=== PATIENT | male | born 1985 | race Caucasian/White ===

== ENCOUNTER 2024-09-04 16:51 | Inpatient (IN) | payer SELFPAY ==
[2024-09-04 16:53] VITALS: BP 140/91; PULSE 89; RESP 16; TEMP 36.8; O2SAT 98; BMI 29.7
[2024-09-04 18:36] LABS: Absolute Lymphocyte Count 1.03 X10^3/uL (0.83-4.51); Absolute Neutrophil Count 3.5 X10^3/uL (2.0-7.7); Basophil# 0.06 X10^3/uL; Basophil% 1.1 % (0-1); Eosinophil# 0.16 X10^3/uL; Eosinophils% 2.9 % (0-5); Hematocrit 43.1 % (40-54); Hemoglobin 14.3 g/dL (13.0-16.5); Lymphocyte # 1.03 X10^3/ul (0.83-4.51); Lymphocyte % 18.8 % (19-41); Mean Corp Hgb Conc 33.2 g/dL (32-36); Mean Corpuscular Volume 90.4 fL (80-94); Mean Platelet Vol. 9.5 fl (6.2-12.0); Monocyte# 0.68 X10^3/uL; Monocyte% 12.4 % (0-10); NRBC Flagged by Analyzer 0 % (0-5); Neutrophil # 3.46 X10^3/uL (2.7-7.7); Neutrophil % 63.2 % (47-70); Platelet Count 325 K/mm3 (150-450); RBC Distribution Width CV 16.2 % (11.6-14.6); RBC Distribution Width SD 54.2 fl (35.1-43.9); Red Blood Count 4.77 M/mm3 (4.6-6.2); White Blood Count 5.5 K/mm3 (4.4-11.0)
[2024-09-04 19:06] LABS: ALB/GLOB Ratio 0.9 RATIO (0.9-2.4); AST(SGOT) 68 U/L (15-37); Alanine Aminotransfer ALT/SGPT 78 U/L (16-61); Albumin, Serum 3.7 g/dL (3.2-5.0); Alkaline Phosphatase 199 U/L (45-117); Anion Gap 8 (5-15); BUN 13 mg/dL (7-18); BUN/Creat Ratio 11.5 RATIO (10-20); Calcium,Total 9.8 mg/dL (8.5-10.1); Chloride 102 mmol/L (98-107); Creatinine, Serum 1.13 mg/dL (0.70-1.30); EST Glomerular Filtration Rate 76 mL/min (>60); Est Glom Filt Rate - Afr Amer 92 mL/min (>60); Estimated Creatinine Clearance 99.11 ml/min; Globulin 3.9 g/dL (2.2-4.2); Glucose 105 mg/dL (74-106); Potassium 3.9 mmol/L (3.5-5.1); Protein, Total 7.6 g/dL (6.4-8.2); Sodium Level 138 mmol/L (136-145)
[2024-09-04 19:13] LABS: Mucous, Urine 0 SEEN /hpf (<or=2+); Red Blood Cells-Urine 0 SEEN /hpf (0-5); Squamous Epithelial Cells - UA 0 SEEN /hpf (0-5); White Blood Cells 0 SEEN /hpf (0-5)
[2024-09-04 19:14] LABS: Color, Urine Yellow (Yellow); Glucose, Dipstick Normal (Normal); Ketone-Dipstick Negative (Negative); Leukocyte Esterase-Dipstick Negative /ul (Negative); Nitrite-Dipstick Negative (Negative); Occult Blood-Urine Negative /ul (Negative); Protein-Dipstick Negative (Negative); Specific Gravity, Urine 1.005 (1.002-1.030); Urine Bilirubin Dipstick Negative (Negative); Urine Clarity Clear (Clear); Urine Urobilinogen Normal (Normal)
[2024-09-04 19:24] VITALS: BP 136/80; PULSE 73; RESP 16; O2SAT 96
[2024-09-04 19:31] LABS: Bacteria 1+ /hpf (None Seen)
--- NOTE | 2024-09-04 19:31 | US_ITS ---
INDICATION: pain, jaundice EXAMINATION: Ultrasound US Gallbladder (abdomen limited) TECHNIQUE: Hector scale and color doppler imaging was performed of the right upper quadrant. COMPARISON: Prior study dated: CT from today FINDINGS: LIVER: The liver is normal in size, shape, and echogenicity. No focal hepatic lesion. Diffuse intrahepatic biliary ductal dilatation. There is no free fluid. GALLBLADDER AND BILIARY TREE: Distended gallbladder. Gallstone at the gallbladder neck measuring up to 1.9 cm. No wall thickening or pericholecystic fluid.. The proximal common bile duct measures 1.3 cm, which is dilated. Songraphic Isidro''s sign: Negative. PANCREAS: No focal abnormality is demonstrated in the pancreas. No pancreatic ductal dilatation. RIGHT KIDNEY: The right kidney measures 11.9 cm. No hydronephrosis or nephrolithiasis. No renal mass. US/Gallbladder IMPRESSION: Diffuse intrahepatic and extrahepatic biliary ductal dilatation noted, as seen on the prior CT. Gallstone at the neck of the gallbladder. No definite ductal filling defects seen, but this can be evaluated further with MRCP or ERCP. Electronically Signed: Major Roberson MD at 21:07 EST ,
--- NOTE | 2024-09-04 19:32 | CT_ITS ---
STUDY: CT ABDOMEN AND PELVIS WITH CONTRAST REASON FOR EXAM: Male, 39 years old. jaundice RADIATION DOSAGE (If Supplied By Facility): CTDIvol = ( 12.62 ) mGy, DLP = ( 1004.16 ) mGycm TECHNIQUE: IV 75mL Isovue-370 was administered. Transaxial images were obtained from the dome of the diaphragm to the symphysis pubis in the portal venous phase. Multiplanar coronal and sagittal images were reformatted. Individualized Dose Optimization Techniques Were Used For This CT. COMPARISON: No relevant prior comparison study available FINDINGS: LOWER CHEST: Lung bases are clear. No cardiomegaly or pericardial effusion. LIVER: The liver is normal in size, shape, and attenuation. No focal mass. GALLBLADDER AND BILIARY TREE: Normal distended gallbladder with stones in the gallbladder lumen. There is diffuse intrahepatic and extrahepatic biliary ductal dilatation. The common bile duct measures 1.2 cm. Questionable filling defect at the lower aspect of the duct. PANCREAS: No focal cystic or solid mass. No pancreatic ductal dilatation. SPLEEN: Normal size without focal cystic or solid mass. ADRENAL GLANDS: No nodules. KIDNEYS AND URETERS: Normal renal size and position. No hydronephrosis or nephrolithiasis. PERITONEUM: No ascites or free air. Small amount of fluid in the right inguinal canal. BOWEL: The stomach is unremarkable. Normal caliber small bowel. There is no obstruction. No colonic wall thickening or inflammation. No evidence of acute appendicitis. LYMPH NODES: No enlarged mesenteric or retroperitoneal lymph nodes. VESSELS: Aorta is non-dilated. URINARY BLADDER: Unremarkable. REPRODUCTIVE ORGANS: No pelvic masses. ABDOMINAL WALL: Small right inguinal hernia containing fluid. BONES: No lytic or blastic abnormality. Disc space narrowing at L5-S1. CT/Abdomen/Pelvis W IV Cont ONLY IMPRESSION: Diffuse intrahepatic and extrahepatic biliary ductal dilatation. A gallstone is noted. Suspected filling defect in the common bile duct. This can be evaluated with ERCP or MRCP. No inflammatory change seen of the gallbladder. Electronically Signed: Major Roberson MD at 20:28 EST ,
--- NOTE | 2024-09-04 19:35 | EX.ED.DYSGE1 ---
HPI <HECTOR Quintana - Last Filed: 09/04/24 21:04> History of Present Illness Chief Complaint: General Illness Narrative Narrative: 39-year-old male has become progressively jaundiced over the last 3 weeks. He had a few episodes of epigastric pain where he felt like his food was stuck in that area. No RUQ pain. He has had 3 blood draws and his bilirubin has been rising each time. He states on August 31 it was 20.5. He had an ultrasound showing gallstones and a dilated common bile duct concerning for choledocholithiasis but he states his abdominal pain had resolved so he did not follow-up for the advised MRCP. He states he really feels well other than the jaundice and has had a normal appetite and p.o. intake. No vomiting. No recent abdominal pain, normal bowel movements. Dark urine. He does not take any prescription medications. He denies alcohol use. PFS <HECTOR Quintana - Last Filed: 09/04/24 21:04> [facility] Medical History No pertinent past medical history Home Medications ?Medication ?Instructions ?Recorded ?Last Taken ?Type NK 09/04/24 Unknown History Allergy/AdvReac Type Severity Reaction Status Date / Time No Known Allergies Allergy Verified 09/04/24 16:55 Social History Smoking Status: Never smoker ROS <HECTOR Quintana - Last Filed: 09/04/24 21:04> ROS ED ROS Narrative Constitutional: Negative for fever, chills, malaise. CVS: Negative for chest pain. Respiratory: Negative for shortness of breath. GI: Negative for abdominal pain, nausea, vomiting, diarrhea. EXAM <HECTOR Quintana - Last Filed: 09/04/24 21:04> Physical Exam Narrative Exam Narrative: CONST: Patient sitting in no acute distress. EYES: Scleral icterus. NECK: Normal inspection. RESP: No respiratory distress, CTAB. CVS: Regular rate and rhythm, no murmur, no gallop. ABD: Soft and nontender, no guarding or rebound, nondistended, no hepatosplenomegaly. SKIN: Jaundiced. EXTREMITIES: Normal appearance, no pedal edema. NEURO: Alert and answering questions appropriately. PSYCH: Normal affect. Const Vital Signs: 09/04/24 16:53 09/04/24 19:24 09/04/24 19:24 Temperature 98.2 F Temperature Source Oral Pulse Rate 89 73 Respiratory Rate 16 16 Respiratory Effort Normal Respiratory Pattern Normal Blood Pressure 140/91 H 136/80 H Blood Pressure Mean 107 98 Pulse Ox 98 96 Oxygen Delivery Method Room Air Room Air 09/04/24 21:00 09/04/24 21:02 Temperature 98.7 F Temperature Source Pulse Rate 76 78 Respiratory Rate 16 18 Respiratory Effort Respiratory Pattern Blood Pressure 124/71 H 124/71 H Blood Pressure Mean 88 88 Pulse Ox 98 98 Oxygen Delivery Method Room Air <Dr. Rod Ross DO - Last Filed: 09/05/24 00:19> Physical Exam Const Vital Signs: 09/04/24 16:53 09/04/24 19:24 09/04/24 19:24 Temperature 98.2 F Temperature Source Oral Pulse Rate 89 73 Respiratory Rate 16 16 Respiratory Effort Normal Respiratory Pattern Normal Blood Pressure 140/91 H 136/80 H Blood Pressure Mean 107 98 Pulse Ox 98 96 Oxygen Delivery Method Room Air Room Air 09/04/24 21:00 09/04/24 21:02 Temperature 98.7 F Temperature Source Pulse Rate 76 78 Respiratory Rate 16 18 Respiratory Effort Respiratory Pattern Blood Pressure 124/71 H 124/71 H Blood Pressure Mean 88 88 Pulse Ox 98 98 Oxygen Delivery Method Room Air [facility] <HECTOR Quintana - Last Filed: 09/04/24 21:04> [facility] Narrative Medical decision making narrative: History gathered from: Patient and spouse Differential: Cholecystitis, choledocholithiasis, neoplasm Consults: GI Patient has had 3 weeks of jaundice. He had an ultrasound at an outside facility showing gallstones and a dilated common bile duct concerning for choledocholithiasis. States he briefly had epigastric pain but has not had it for a while and other than the jaundice he feels normal. He appears well and nontoxic. Vital signs are stable. He does have scleral icterus and jesika jaundice. His abdomen is soft and nontender. Workup remarkable for total bilirubin of 23.9, direct bilirubin 20.1, AST 68, ALT 78, alk phos 199, normal lipase of 43. CT scan shows diffuse intra and extrahepatic biliary duct dilation and a gallstone again concerning for choledocholithiasis. I discussed the case with Dr. Babin who states he will do ERCP tomorrow. Case was discussed with the hospitalist for admission. Lab Data Attestation: I reviewed the patient's lab results. Labs: Laboratory Results - last 24 hr 09/04/24 09/04/24 18:20 19:02 WBC 5.5 RBC 4.77 Hgb 14.3 Hct 43.1 MCV 90.4 MCH 30.0 MCHC 33.2 RDW Std Deviation 54.2 H RDW Coeff of Joanne 16.2 H Plt Count 325 MPV 9.5 Immature Gran % (Auto) 1.600 H Neut % (Auto) 63.2 Lymph % (Auto) 18.8 L [place] % (Auto) 12.4 H Eos % (Auto) 2.9 Baso % (Auto) 1.1 H Absolute Neuts (auto) 3.5 Absolute Lymphs (auto) 1.03 Nucleated RBC % 0 PT 11.9 INR 0.9 Sodium 138 Potassium 3.9 Chloride 102 Carbon Dioxide 28.0 Anion Gap 8 BUN 13 Creatinine 1.13 Estim Creat Clear Calc 99.11 Est GFR (MDRD) Af Amer 92 Est GFR (MDRD) Non-Af 76 BUN/Creatinine Ratio 11.5 Glucose 105 Hemoglobin A1c 4.8 Calcium 9.8 Total Bilirubin 23.90 H* Direct Bilirubin 20.11 H AST 68 H ALT 78 H Alkaline Phosphatase 199 H Total Protein 7.6 Albumin 3.7 Globulin 3.9 Albumin/Globulin Ratio 0.9 Triglycerides Cancelled Cholesterol Cancelled LDL Cholesterol Cancelled VLDL Cholesterol Cancelled HDL Cholesterol Cancelled Lipase 43 TSH 0.545 Urine Color Yellow Urine Clarity Clear Urine pH 6.0 Ur Specific [place] 1.005 Urine Protein Negative Urine Glucose (UA) Normal Urine Ketones Negative Urine Occult Blood Negative Urine Nitrite Negative Urine Bilirubin Negative Urine Urobilinogen Normal Ur Leukocyte Esterase Negative Urine RBC 0 SEEN Urine WBC 0 SEEN Ur Squamous Epith Cells 0 SEEN Urine Bacteria 1+ Urine Mucus 0 SEEN Radiography Diagnostic Testing: Clinical Impression(s) from Imaging Studies Gallbladder Ultrasound 09/04/24 19:31 IMPRESSION: Diffuse intrahepatic and extrahepatic biliary ductal dilatation noted, as seen on the prior CT. Gallstone at the neck of the gallbladder. No definite ductal filling defects seen, but this can be evaluated further with MRCP or ERCP. Electronically Signed: Major Roberson MD at 21:07 EST , Abdomen/Pelvis CT 09/04/24 19:32 IMPRESSION: Diffuse intrahepatic and extrahepatic biliary ductal dilatation. A gallstone is noted. Suspected filling defect in the common bile duct. This can be evaluated with ERCP or MRCP. No inflammatory change seen of the gallbladder. Electronically Signed: Major Roberson MD at 20:28 EST , <Dr. Rod Ross, DO - Last Filed: 09/05/24 00:19> [facility] Narrative Medical decision making narrative: History gathered from: Patient and spouse Differential: Cholecystitis, choledocholithiasis, neoplasm Consults: GI Patient has had 3 weeks of jaundice. He had an ultrasound at an outside facility showing gallstones and a dilated common bile duct concerning for choledocholithiasis. States he briefly had epigastric pain but has not had it for a while and other than the jaundice he feels normal. He appears well and nontoxic. Vital signs are stable. He does have scleral icterus and jesika jaundice. His abdomen is soft and nontender. Workup remarkable for total bilirubin of 23.9, direct bilirubin 20.1, AST 68, ALT 78, alk phos 199, normal lipase of 43. CT scan shows diffuse intra and extrahepatic biliary duct dilation and a gallstone again concerning for choledocholithiasis. I discussed the case with Dr. Babin who states he will do ERCP tomorrow. Case was discussed with the hospitalist for admission. Attending note: I have personally performed a face to face assessment of the patient and have reviewed the AMINTA note. I personally made/approved the management plan and take responsibility for the patient management. I performed a substantive portion of the visit including all aspects of the following. My [place]ckee findings include: Outpatient gallbladder ultrasound 3 weeks ago after a bout of pain. Symptom resolved he had cholelithiasis and common bile duct of 9.2 mm. Her symptoms resolved did not follow-up. Progressive jaundice over 2 weeks. Occasional itching. Urine dark. Stool still light brown color. No current abdominal pain. No fevers. No abdominal surgeries in the past. Exam diffuse jaundice including scleral icterus. Abdomen nontender. Nontoxic. Laboratories rechecked concerning for obstructive jaundice and direct bili of 20.11 white count normal at 5. Lipase normal. Slight transaminitis. CT scan abdomen no pancreatic mass there is gallstones with common bile duct of 12 mm. Ultrasound with cholelithiasis at the gallbladder neck. Discussed with GI DrAlverto Babin who will plan on doing an ERCP tomorrow. N.p.o. at midnight. Discussed with hospitalist for admission. Lab Data Labs: Laboratory Results - last 24 hr 09/04/24 09/04/24 18:20 19:02 WBC 5.5 RBC 4.77 Hgb 14.3 Hct 43.1 MCV 90.4 MCH 30.0 MCHC 33.2 RDW Std Deviation 54.2 H RDW Coeff of Joanne 16.2 H Plt Count 325 MPV 9.5 Immature Gran % (Auto) 1.600 H Neut % (Auto) 63.2 Lymph % (Auto) 18.8 L [place] % (Auto) 12.4 H Eos % (Auto) 2.9 Baso % (Auto) 1.1 H Absolute Neuts (auto) 3.5 Absolute Lymphs (auto) 1.03 Nucleated RBC % 0 PT 11.9 INR 0.9 Sodium 138 Potassium 3.9 Chloride 102 Carbon Dioxide 28.0 Anion Gap 8 BUN 13 Creatinine 1.13 Estim Creat Clear Calc 99.11 Est GFR (MDRD) Af Amer 92 Est GFR (MDRD) Non-Af 76 BUN/Creatinine Ratio 11.5 Glucose 105 Hemoglobin A1c 4.8 Calcium 9.8 Total Bilirubin 23.90 H* Direct Bilirubin 20.11 H AST 68 H ALT 78 H Alkaline Phosphatase 199 H Total Protein 7.6 Albumin 3.7 Globulin 3.9 Albumin/Globulin Ratio 0.9 Triglycerides Cancelled Cholesterol Cancelled LDL Cholesterol Cancelled VLDL Cholesterol Cancelled HDL Cholesterol Cancelled Lipase 43 TSH 0.545 Urine Color Yellow Urine Clarity Clear Urine pH 6.0 Ur Specific [place] 1.005 Urine Protein Negative Urine Glucose (UA) Normal Urine Ketones Negative Urine Occult Blood Negative Urine Nitrite Negative Urine Bilirubin Negative Urine Urobilinogen Normal Ur Leukocyte Esterase Negative Urine RBC 0 SEEN Urine WBC 0 SEEN Ur Squamous Epith Cells 0 SEEN Urine Bacteria 1+ Urine Mucus 0 SEEN Radiography Diagnostic Testing: Clinical Impression(s) from Imaging Studies Gallbladder Ultrasound 09/04/24 19:31 IMPRESSION: Diffuse intrahepatic and extrahepatic biliary ductal dilatation noted, as seen on the prior CT. Gallstone at the neck of the gallbladder. No definite ductal filling defects seen, but this can be evaluated further with MRCP or ERCP. Electronically Signed: Major Roberson MD at 21:07 EST , Abdomen/Pelvis CT 09/04/24 19:32 IMPRESSION: Diffuse intrahepatic and extrahepatic biliary ductal dilatation. A gallstone is noted. Suspected filling defect in the common bile duct. This can be evaluated with ERCP or MRCP. No inflammatory change seen of the gallbladder. Electronically Signed: Major Roberson MD at 20:28 EST , Discharge Plan Dx/Rx/DC Orders Clinical Impression: Choledocholithiasis, Jaundice, Cholelithiases Disposition Disposition: Acute Care [facility] Discharge Date/Time: 09/04/24 21:41
[2024-09-04 19:49] LABS: International Normalized Ratio 0.9; Prothrombin Time (Protime)PT. 11.9 SECONDS (11.7-14.9)
[2024-09-04 20:12] LABS: Bilirubin, Direct 20.11 mg/dL (0.00-0.30); Lipase 43 U/L (13-75)
--- NOTE | 2024-09-04 20:59 | PCM.HP.STD ---
[facility] - General General Date of Admission: 09/04/24 Date of Service: 09/04/24 Chief Complaint: Severe Persistent Jaundice. HPI Narrative DIANE CONNORS, is a 39 M who with a past medical history of being overweight; with a BMI of 29.8 this admission and recently diagnosed jaundice with intermittent epigastric abdominal pain along with a feeling that food was getting stuck in that region; with a gallbladder ultrasound that revealed gallstones and suspected choledocholithiasis with patient then recommended to get MRCP ~3 week ago - but since his abdominal pain resolved he did not proceed with testing who now presents to [facility] ER complaining of severe persistent jaundice. Mr. Connors stated he has had 3 blood draws with his bilirubin rising each time but he feels well other than jaundice and has not had a normal appetite with normal oral intake. He denies recent fever, chills, nausea, vomiting, diarrhea, chest pain, shortness of breath, headache or paresthesias. He denies being on any prescription medications and he does not use alcohol or illicit drugs. In the ER he was noted to have a CT scan of the abdomen and pelvis with IV contrast that revealed diffuse intrahepatic and extrahepatic biliary ductal dilatation with a gallstone noted and suspected filling defect in the common bile duct with radiologist recommending ERCP or MRCP. He then underwent gallbladder ultrasound which revealed diffuse intrahepatic and extrahepatic biliary ductal dilatation as seen on CT. Gallstone at the neck of the bladder was noted. No definite ductal filling defects were seen and once again MRCP or ERCP was recommended. His laboratory tests were positive for severe hyperbilirubinemia of 23.9 mg/dL with direct bilirubin of 20.11 mg/dL and AST of 68 U/L and ALT of 78 U/L and alkaline phosphatase of 199 U/L present on admission with ER physician then contacting acquisition consultant on-call who recommended ERCP in the a.m. with patient to be admitted to the hospitalist service with formal consultation pending in the a.m. for urgent ERCP which was done and he was then admitted to the general medical floor for ongoing care for stay that is expected to extend beyond 2 midnights. [facility] Medical History No pertinent past medical history Home Medications ?Medication ?Instructions ?Recorded ?Last Taken ?Type NK 09/04/24 Unknown History Allergy/AdvReac Type Severity Reaction Status Date / Time No Known Allergies Allergy Verified 09/04/24 16:55 Social History Smoking Status: Never smoker ROS ROS Narrative Review of Systems: Constitution: Patient denies fever or chills. Eyes: Patient admits to scleral icterus but he denies changes in vision or discharge from eyes. ENT: Patient denies runny nose, sore throat or ear pain. Resp: Patient denies shortness of breath or cough. CV: Patient denies chest pain, palpitations or heart racing. GI: Patient denies recent abdominal pain, nausea, vomiting, diarrhea or decreased appetite with normal bowel movements as per HPI. : Patient denies dysuria or hematuria. MSK: Patient denies arthralgias or myalgias. Skin: Patient admits to severe jaundice but he denies rash or abscess. Psych: Patient denies symptoms of uncontrolled depression or anxiety. Neuro: Patient denies headache, paresthesias or focal neurologic deficits. Allergy: Patient denies lip swelling, tongue swelling or urticaria. Hematology: Patient denies easy bleeding or easy bruisability. Endocrinology: Patient denies polyuria, polydipsia or polyphagia. 14 point review of systems otherwise negative except for positives noted above in HPI. Vital Signs Vital Signs Vital Signs: 09/04/24 16:53 09/04/24 19:24 09/04/24 19:24 Temperature 98.2 F Temperature Source Oral Pulse Rate 89 73 Respiratory Rate 16 16 Respiratory Effort Normal Respiratory Pattern Normal Blood Pressure 140/91 H 136/80 H Blood Pressure Mean 107 98 Pulse Ox 98 96 Oxygen Delivery Method Room Air Room Air Weight Weight: 207 lb 8 oz Body Mass Index (BMI) 29.7 Physical Exam Const alert, oriented x3 and no apparent distress Constitutional Narrative: Overweight with nontoxic appearance. General Appearance: cooperative HEENT normocephalic, head/scalp atraumatic, hearing grossly normal bilaterally and moist oral mucous membranes Eyes PERRL and EOMs intact bilaterally Eyes Narrative: Scleral icterus noted. Neck no lymphadenopathy and supple Resp normal respiratory effort, no retractions, no use of accessory muscles and clear to auscultation bilaterally Cardio regular rate and regular rhythm GI normal to inspection, nondistended, normoactive bowel sounds, soft to palpation, non-tender and non-distended Extremity normal to inspection, full ROM and no clubbing, cyanosis or edema Skin Skin Narrative: Patient has severe jaundice but no evidence of rash or abscess. Neuro oriented x3, CN's II-XII intact bilaterally, moves all extremities and no focal motor deficits Sensorium / Orientation: awake, alert, oriented to person, oriented to place and oriented to time Speech: speech normal Psych affect normal Results Medical Records Data Attestation: I reviewed the patient's medical records Lab / Micro Data Attestation: I reviewed the patient's lab results. 09/04/24 18:20 09/04/24 18:20 Labs: Laboratory Results - last 24 hr 09/04/24 18:20: WBC 5.5, RBC 4.77, Hgb 14.3, Hct 43.1, MCV 90.4, MCH 30.0, MCHC 33.2, RDW Std Deviation 54.2 H, RDW Coeff of Joanne 16.2 H, Plt Count 325, MPV 9.5, Immature Gran % (Auto) 1.600 H, Neut % (Auto) 63.2, Lymph % (Auto) 18.8 L, [place] % (Auto) 12.4 H, Eos % (Auto) 2.9, Baso % (Auto) 1.1 H, Absolute Neuts (auto) 3.5, Absolute Lymphs (auto) 1.03, Nucleated RBC % 0, PT 11.9, INR 0.9, Sodium 138, Potassium 3.9, Chloride 102, Carbon Dioxide 28.0, Anion Gap 8, BUN 13, Creatinine 1.13, Estim Creat Clear Calc 99.11, Est GFR (MDRD) Af Amer 92, Est GFR (MDRD) Non-Af 76, BUN/Creatinine Ratio 11.5, Glucose 105, Calcium 9.8, Total Bilirubin 23.90 H*, Direct Bilirubin 20.11 H, AST 68 H, ALT 78 H, Alkaline Phosphatase 199 H, Total Protein 7.6, Albumin 3.7, Globulin 3.9, Albumin/Globulin Ratio 0.9, Lipase 43 09/04/24 19:02: Urine Color Yellow, Urine Clarity Clear, Urine pH 6.0, Ur Specific [place] 1.005, Urine Protein Negative, Urine Glucose (UA) Normal, Urine Ketones Negative, Urine Occult Blood Negative, Urine Nitrite Negative, Urine Bilirubin Negative, Urine Urobilinogen Normal, Ur Leukocyte Esterase Negative, Urine RBC 0 SEEN, Urine WBC 0 SEEN, Ur Squamous Epith Cells 0 SEEN, Urine Bacteria 1+, Urine Mucus 0 SEEN Imaging Radiology Impression Abdomen/Pelvis CT 09/04/24 19:32 IMPRESSION: Diffuse intrahepatic and extrahepatic biliary ductal dilatation. A gallstone is noted. Suspected filling defect in the common bile duct. This can be evaluated with ERCP or MRCP. No inflammatory change seen of the gallbladder. Electronically Signed: Major Roberson MD at 20:28 EST , [facility] Imaging Services [address] [place] [id number] Gallbladder MR#: [id number] Acct: [id number] Name: DIANE CONNORS Rep #: [id number] : 1985 M 39 From: Major Roberson MD PCP: AGUILAR Giles Status: [facility] ER Study: Gallbladder Date of Exam: 09/04/24 Exam# [id number] Ordering Dr: Ita Cueto INDICATION: pain, jaundice EXAMINATION: Ultrasound US Gallbladder (abdomen limited) TECHNIQUE: Hector scale and color doppler imaging was performed of the right upper quadrant. COMPARISON: Prior study dated: CT from today FINDINGS: LIVER: The liver is normal in size, shape, and echogenicity. No focal hepatic lesion. Diffuse intrahepatic biliary ductal dilatation. There is no free fluid. GALLBLADDER AND BILIARY TREE: Distended gallbladder. Gallstone at the gallbladder neck measuring up to 1.9 cm. No wall thickening or pericholecystic fluid.. The proximal common bile duct measures 1.3 cm, which is dilated. Songraphic Isidro''s sign: Negative. PANCREAS: No focal abnormality is demonstrated in the pancreas. No pancreatic ductal dilatation. RIGHT KIDNEY: The right kidney measures 11.9 cm. No hydronephrosis or nephrolithiasis. No renal mass. US/Gallbladder IMPRESSION: Diffuse intrahepatic and extrahepatic biliary ductal dilatation noted, as seen on the prior CT. Gallstone at the neck of the gallbladder. No definite ductal filling defects seen, but this can be evaluated further with MRCP or ERCP. Electronically Signed: Major Roberson MD at 21:07 EST Reading Location ID and State: [address] [place] [address] Tel , Service support , CC: AGUILAR Arias; HECTOR Quintana ~ Shower Attendant: Signed Assessment & Plan Assessment/Plan (1) Jaundice: (2) Choledocholithiasis: (3) Overweight (BMI 25.0-29.9): PLAN: Plan 1. Severe Jaundice with Hyperbilirubinemia of 23.9 mg/dL with direct bilirubin of 20.11 mg/dL and AST of 68 U/L and ALT of 78 U/L and alkaline phosphatase of 199 U/L present on admission with CT scan of the abdomen and pelvis with IV contrast that revealed diffuse intrahepatic and extrahepatic biliary ductal dilatation with a gallstone noted and suspected filling defect in the common bile duct with radiologist recommending ERCP or MRCP. He then underwent gallbladder ultrasound which revealed diffuse intrahepatic and extrahepatic biliary ductal dilatation as seen on CT. Gallstone at the neck of the bladder was noted. No definite ductal filling defects were seen and once again MRCP or ERCP was recommended - Admit to general medical floor. Keep strict n.p.o. and start empiric IV Zosyn to prevent potential evolving infection. Give Protonix 40 mg IV daily plus Zofran 4 mg IV as needed nausea and vomiting. Give Toradol IV as needed [id number] (level 1-5/10) pain or fever. Give morphine IV as needed for severe (level 6-10/10) pain. Finally, we will consult acquisition consultant on-call to see this patient on rounds in the a.m. for urgent ERCP with help appreciated in advance. 2. Recently diagnosed jaundice with intermittent epigastric abdominal pain along with a feeling that food was getting stuck in that region; with a gallbladder ultrasound that revealed gallstones and suspected choledocholithiasis with patient then recommended to get MRCP ~3 week ago - but since his abdominal pain resolved he did not proceed with testing with progressively escalating bilirubin levels and severe jaundice since that time complicating #1 - Noted with patient encouraged to get follow-up testing as recommended in the future. 3. Overweight; with a BMI of 29.8 this admission - Weight loss will be recommended. Check TSH. This complicates his case and may hamper recovery. 4. DVT prophylaxis - SCD's only with impending ERCP. Total time: Approximately (but not less than) 55 minutes. Charges/Coding Visit Charges Inpatient E&M: 89832 Init Hosp L2
[2024-09-04 21:00] VITALS: BP 124/71; PULSE 76; RESP 16; O2SAT 98
[2024-09-04 21:02] VITALS: BP 124/71; PULSE 78; RESP 18; TEMP 37.1; O2SAT 98
[2024-09-04 21:48] VITALS: BP 117/81; PULSE 64; RESP 13; TEMP 36.5; O2SAT 99; BMI 29.5
[2024-09-04 21:48] LABS: Hemoglobin A1c 4.8 % (3.8-5.6)
[2024-09-04 21:54] LABS: Thyroid Stim Hormone (TSH) 0.545 uIU/mL (0.358-3.740)
--- NOTE | 2024-09-04 22:03 | EX.PCM.CON.G ---
HPI Consult Data Date of Consult: 09/04/24 HPI Narrative Reason for Consultation: Biliary obstruction HPI Narrative: DIANE BELTRAN, is a 39 M who presented to the ED with progressive jaundice. He was recently diagnosed jaundice with intermittent epigastric abdominal pain along with a feeling that food was getting stuck in that region; with a gallbladder ultrasound that revealed gallstones and suspected choledocholithiasis with patient then recommended to get MRCP ~3 week ago - but since his abdominal pain resolved he did not proceed with testing. He now presents to [facility] ER complaining of severe persistent jaundice. Mr. Beltran stated he has had 3 blood draws with his bilirubin rising each time but he feels well other than jaundice and has not had a normal appetite with normal oral intake. He denies recent fever, chills, nausea, vomiting, diarrhea, chest pain, shortness of breath, headache or paresthesias. He denies being on any prescription medications and he does not use alcohol or illicit drugs. In the ER he was noted to have a CT scan of the abdomen and pelvis with IV contrast that revealed diffuse intrahepatic and extrahepatic biliary ductal dilatation with a gallstone noted and suspected filling defect in the common bile duct with radiologist recommending ERCP or MRCP. He then underwent gallbladder ultrasound which revealed diffuse intrahepatic and extrahepatic biliary ductal dilatation as seen on CT. Gallstone at the neck of the bladder was noted. No definite ductal filling defects were seen and once again MRCP or ERCP was recommended. His laboratory tests were positive for severe hyperbilirubinemia of 23.9 mg/dL with direct bilirubin of 20.11 mg/dL and AST of 68 U/L and ALT of 78 U/L and alkaline phosphatase of 199 U/L present on admission I was consulted for management of obstructive jaundice. [facility] Medical History No pertinent past medical history Home Medications ?Medication ?Instructions ?Recorded ?Last Taken ?Type NK 09/04/24 Unknown History Allergy/AdvReac Type Severity Reaction Status Date / Time No Known Allergies Allergy Verified 09/04/24 16:55 Social History Smoking Status: Never smoker ROS ROS Narrative Review of Systems: Constitution: Patient denies fever or chills. Eyes: Patient admits to scleral icterus but he denies changes in vision or discharge from eyes. ENT: Patient denies runny nose, sore throat or ear pain. Resp: Patient denies shortness of breath or cough. CV: Patient denies chest pain, palpitations or heart racing. GI: Patient denies recent abdominal pain, nausea, vomiting, diarrhea or decreased appetite with normal bowel movements as per HPI. : Patient denies dysuria or hematuria. MSK: Patient denies arthralgias or myalgias. Skin: Patient admits to severe jaundice but he denies rash or abscess. Psych: Patient denies symptoms of uncontrolled depression or anxiety. Neuro: Patient denies headache, paresthesias or focal neurologic deficits. Allergy: Patient denies lip swelling, tongue swelling or urticaria. Hematology: Patient denies easy bleeding or easy bruisability. Endocrinology: Patient denies polyuria, polydipsia or polyphagia. 14 point review of systems otherwise negative except for positives noted above in HPI. Physical Exam Const alert, oriented x3 and no apparent distress General Appearance: cooperative HEENT normocephalic, head/scalp atraumatic, hearing grossly normal bilaterally and moist oral mucous membranes Eyes PERRL and EOMs intact bilaterally Eyes Narrative: Scleral icterus noted. Neck no lymphadenopathy and supple Resp normal respiratory effort, no retractions, no use of accessory muscles and clear to auscultation bilaterally Cardio regular rate and regular rhythm GI normal to inspection, nondistended, normoactive bowel sounds, soft to palpation, non-tender and non-distended Extremity normal to inspection, full ROM and no clubbing, cyanosis or edema Skin Skin Narrative: Patient has severe jaundice but no evidence of rash or abscess. Neuro oriented x3, CN's II-XII intact bilaterally, moves all extremities and no focal motor deficits Sensorium / Orientation: awake, alert, oriented to person, oriented to place and oriented to time Speech: speech normal Psych affect normal Lab / Micro Data 09/05/24 05:10 09/05/24 05:10 Labs: Laboratory Results - last 24 hr 09/04/24 18:20: WBC 5.5, RBC 4.77, Hgb 14.3, Hct 43.1, MCV 90.4, MCH 30.0, MCHC 33.2, RDW Std Deviation 54.2 H, RDW Coeff of Joanne 16.2 H, Plt Count 325, MPV 9.5, Immature Gran % (Auto) 1.600 H, Neut % (Auto) 63.2, Lymph % (Auto) 18.8 L, Door % (Auto) 12.4 H, Eos % (Auto) 2.9, Baso % (Auto) 1.1 H, Absolute Neuts (auto) 3.5, Absolute Lymphs (auto) 1.03, Nucleated RBC % 0, PT 11.9, INR 0.9, Sodium 138, Potassium 3.9, Chloride 102, Carbon Dioxide 28.0, Anion Gap 8, BUN 13, Creatinine 1.13, Estim Creat Clear Calc 99.11, Est GFR (MDRD) Af Amer 92, Est GFR (MDRD) Non-Af 76, BUN/Creatinine Ratio 11.5, Glucose 105, Hemoglobin A1c 4.8, Calcium 9.8, Total Bilirubin 23.90 H*, Direct Bilirubin 20.11 H, AST 68 H, ALT 78 H, Alkaline Phosphatase 199 H, Total Protein 7.6, Albumin 3.7, Globulin 3.9, Albumin/Globulin Ratio 0.9, Triglycerides Cancelled, Cholesterol Cancelled, LDL Cholesterol Cancelled, VLDL Cholesterol Cancelled, HDL Cholesterol Cancelled, Lipase 43, TSH 0.545 09/04/24 19:02: Urine Color Yellow, Urine Clarity Clear, Urine pH 6.0, Ur Specific [place] 1.005, Urine Protein Negative, Urine Glucose (UA) Normal, Urine Ketones Negative, Urine Occult Blood Negative, Urine Nitrite Negative, Urine Bilirubin Negative, Urine Urobilinogen Normal, Ur Leukocyte Esterase Negative, Urine RBC 0 SEEN, Urine WBC 0 SEEN, Ur Squamous Epith Cells 0 SEEN, Urine Bacteria 1+, Urine Mucus 0 SEEN 09/05/24 05:10: WBC 3.7 L, RBC 4.18 L, Hgb 12.3 L, Hct 37.2 L, MCV 89.0, MCH 29.4, MCHC 33.1, RDW Std Deviation 54.4 H, RDW Coeff of Joanne 16.7 H, Plt Count 269, MPV 9.8, Immature Gran % (Auto) 1.400 H, Neut % (Auto) 55.5, Lymph % (Auto) 25.8, Door % (Auto) 12.6 H, Eos % (Auto) 3.3, Baso % (Auto) 1.4 H, Absolute Neuts (auto) 2.0, Absolute Lymphs (auto) 0.94, Nucleated RBC % 0, Sodium 138, Potassium 3.7, Chloride 107, Carbon Dioxide 25.0, Anion Gap 6, BUN 10, Creatinine 1.02, Estim Creat Clear Calc 109.35, Est GFR (MDRD) Af Amer 104, Est GFR (MDRD) Non-Af 86, BUN/Creatinine Ratio 9.8 L, Glucose 93, Calcium 9.0, Phosphorus 3.8, Magnesium 2.2, Total Bilirubin 19.20 H*, AST 55 H, ALT 57, Alkaline Phosphatase 153 H, Total Protein 5.8 L, Albumin 2.7 L, Globulin 3.1, Albumin/Globulin Ratio 0.9, Triglycerides 333 H, Cholesterol 156, LDL Cholesterol 83, VLDL Cholesterol 67 H, HDL Cholesterol 6 L Imaging Radiology Impression Gallbladder Ultrasound 09/04/24 19:31 IMPRESSION: Diffuse intrahepatic and extrahepatic biliary ductal dilatation noted, as seen on the prior CT. Gallstone at the neck of the gallbladder. No definite ductal filling defects seen, but this can be evaluated further with MRCP or ERCP. Electronically Signed: Major Roberson MD at 21:07 EST , Abdomen/Pelvis CT 09/04/24 19:32 IMPRESSION: Diffuse intrahepatic and extrahepatic biliary ductal dilatation. A gallstone is noted. Suspected filling defect in the common bile duct. This can be evaluated with ERCP or MRCP. No inflammatory change seen of the gallbladder. Electronically Signed: Major Roberson MD at 20:28 EST , Assessment & Plan Assessment/Plan (1) Jaundice: (2) Choledocholithiasis: (3) Overweight (BMI 25.0-29.9): PLAN: Plan 39-year-old with no significant past medical history presents with severe Jaundice with Hyperbilirubinemia of 23.9 mg/dL with direct bilirubin of 20.11 mg/dL and AST of 68 U/L and ALT of 78 U/L and alkaline phosphatase of 199 U/L present on admission with CT scan of the abdomen and pelvis with IV contrast that revealed diffuse intrahepatic and extrahepatic biliary ductal dilatation with a gallstone noted and suspected filling defect in the common bile duct with radiologist recommending ERCP or MRCP. He then underwent gallbladder ultrasound which revealed diffuse intrahepatic and extrahepatic biliary ductal dilatation as seen on CT. Gallstone at the neck of the bladder was noted. No definite ductal filling defects were seen and once again MRCP or ERCP was recommended. He will undergo ERCP to evaluate his hepatobiliary system. He may need MRCP. He will need a evaluation by general surgeon for cholecystectomy. He was explained alternatives, risk and benefits include not withstanding bleeding, infection, sepsis, perforation, need for return to . He will have an ASA of 3. Charges/Coding Visit Charges Inpatient E&M: 74295 Init Hosp L3
[2024-09-04] MEDS: 0.9% Normal Saline (1000mL) 1,000 ML 125 ML IV (22:20)
[2024-09-04] MEDS: Piperacil/Tazobactam 3.375 GM in 0.9% Normal Saline (50mL MB+) 50 ML IV (22:37)
--- NOTE | 2024-09-04 22:56 | NURSING ---
PT AND WERE BOTH VERY HESITANT TO TAKE THE ZOSYN UNTIL THEY SPEAK WITH THE DR BECAUSE HE DIDNT WANT TO TAKE ANYTHING MORE THAN ABSOLUTELY NECESSARY COMMUNICATION SENT TO DR ESCOTO WHO CALLED BACK AND EXPLAINED MORE TO WHY IT WAS IMPORTANT FOR PT TO RECEIVE ZOSYN BECAUSE HE WAS UNABLE TO COME TO THE UNIT AT THIS TIME. THIS NURSE APPROACHED PT AND AGAIN, LETTING THEM KNOW WHAT DR HAD SAID AND THEY ARE NOW WILLING TO GET THE ZOSYN
[2024-09-05] VITALS (14 sets, daily range): BP systolic 104–147; BP diastolic 68–90; PULSE 58–90; RESP 14–16; TEMP 36.1–37.1; O2SAT 97–100; BMI 29.5
[2024-09-05 05:38] LABS: Absolute Lymphocyte Count 0.94 X10^3/uL (0.83-4.51); Basophil# 0.05 X10^3/uL; Basophil% 1.4 % (0-1); Eosinophil# 0.12 X10^3/uL; Eosinophils% 3.3 % (0-5); Hematocrit 37.2 % (40-54); Hemoglobin 12.3 g/dL (13.0-16.5); Lymphocyte # 0.94 X10^3/ul (0.83-4.51); Lymphocyte % 25.8 % (19-41); Mean Corp Hgb Conc 33.1 g/dL (32-36); Mean Corpuscular Hgb 29.4 pg (27.0-32.0); Mean Platelet Vol. 9.8 fl (6.2-12.0); Monocyte# 0.46 X10^3/uL; Monocyte% 12.6 % (0-10); NRBC Flagged by Analyzer 0 % (0-5); Neutrophil # 2.03 X10^3/uL (2.7-7.7); Neutrophil % 55.5 % (47-70); Platelet Count 269 K/mm3 (150-450); RBC Distribution Width CV 16.7 % (11.6-14.6); RBC Distribution Width SD 54.4 fl (35.1-43.9); Red Blood Count 4.18 M/mm3 (4.6-6.2); White Blood Count 3.7 K/mm3 (4.4-11.0)
[2024-09-05 06:09] LABS: ALB/GLOB Ratio 0.9 RATIO (0.9-2.4); AST(SGOT) 55 U/L (15-37); Alanine Aminotransfer ALT/SGPT 57 U/L (16-61); Albumin, Serum 2.7 g/dL (3.2-5.0); Alkaline Phosphatase 153 U/L (45-117); Anion Gap 6 (5-15); BUN 10 mg/dL (7-18); BUN/Creat Ratio 9.8 RATIO (10-20); Chloride 107 mmol/L (98-107); Creatinine, Serum 1.02 mg/dL (0.70-1.30); EST Glomerular Filtration Rate 86 mL/min (>60); Est Glom Filt Rate - Afr Amer 104 mL/min (>60); Estimated Creatinine Clearance 109.35 ml/min; Globulin 3.1 g/dL (2.2-4.2); Glucose 93 mg/dL (74-106); Magnesium 2.2 mg/dL (1.6-2.6); Phosphorus 3.8 mg/dL (2.5-4.9); Potassium 3.7 mmol/L (3.5-5.1); Protein, Total 5.8 g/dL (6.4-8.2); Sodium Level 138 mmol/L (136-145)
[2024-09-05 06:11] LABS: Cholesterol 156 mg/dL (200); High Density Lipoprotein 6 mg/dL; Triglycerides 333 mg/dL; Very Low Density Lipoprotein 67 mg/dL (5-40)
[2024-09-05] MEDS: Piperacil/Tazobactam 3.375 GM in 0.9% Normal Saline (50mL MB+) 50 ML IV ×3 (06:14→22:26)
[2024-09-05] MEDS: 0.9% Normal Saline (1000mL) 1,000 ML 125 ML IV (06:14)
[2024-09-05] MEDS: Pantoprazole Sodium 40 MG in 0.9% Normal Saline (100mL MB+) 100 ML 330 MG IV (10:43)
--- NOTE | 2024-09-05 11:03 | EKG12_ITS ---
Test Reason : ERCP PROTOCOL Blood Pressure : */* mmHG Vent. Rate : 64 BPM Atrial Rate : 64 BPM P-R Int : 174 ms QRS Dur : 116 ms QT Int : 438 ms P-R-T Axes : 45 -30 15 degrees QTcB Int : 451 ms Normal sinus rhythm Left axis deviation Incomplete right bundle branch block Abnormal ECG No previous ECGs available Confirmed by KHAI CEVALLOS, LD ([id number]), rewrite editor BROOKLYN LYNNE ([id number]) on 09/08/2024 6:09:53 AM Referred By: Confirmed By: LD RIDLEY MD
--- NOTE | 2024-09-05 11:18 | PCM.PRE.AN2 ---
ASA Classification* ASA Classification ASA Classification: 2 and E Assessment & Plan Anesthesia* Anesthesia Assessment Anesthesia Assessment: Discussed sedation and/or anesthesia options, risks, benefits, and alternatives with patient/parents/legal guardian/POA. Questions invited. The patient/parents/legal guardian/POA seems to understand and agrees to proceed with anesthesia plan. Reviewed the physical assessment, medical history, allergy history and patient home medications list prior to surgery/procedure/anesthetic and documented any changes. Performed airway and anesthesia risk assessments. Anesthesia Type Anesthesia Type: General (see written pre anesthesia record for full assessment) Anesthesia Focused Assessment* Temperature: 97.7 F Pulse Rate: 58 Blood Pressure: 117/68 Respiratory Rate: 16 Pulse Ox: 97 Airway Assessment Mouth opens: >3 cm Mallampati Score: II Focused Labs Anesthesia Preop lab: CBC WBC 3.7 K/mm3 (4.4-11.0) L 09/05/24 05:10 RBC 4.18 M/mm3 (4.6-6.2) L 09/05/24 05:10 Hgb 12.3 g/dL (13.0-16.5) L 09/05/24 05:10 Hct 37.2 % (40-54) L 09/05/24 05:10 Plt Count 269 K/mm3 (150-450) 09/05/24 05:10 CHEMISTRY Potassium 3.7 mmol/L (3.5-5.1) 09/05/24 05:10 Sodium 138 mmol/L (136-145) 09/05/24 05:10 Magnesium 2.2 mg/dL (1.6-2.6) 09/05/24 05:10 Phosphorus 3.8 mg/dL (2.5-4.9) 09/05/24 05:10 BUN 10 mg/dL (7-18) 09/05/24 05:10 Creatinine 1.02 mg/dL (0.70-1.30) 09/05/24 05:10 Glucose 93 mg/dL (74-106) 09/05/24 05:10 TSH 0.545 uIU/mL (0.358-3.740) 09/04/24 18:20 COAG PT 11.9 SECONDS (11.7-14.9) 09/04/24 18:20 Pre-Assessment Diagnosis/Proposed Procedure Planned Operative Procedure(s): ercp 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 When Was Last Pacemaker Check QUESTION #4 FULL TEXT: You/Your Family Experience fever (hyperthermia) with Anesthesia Last Oral Intake Last Oral intake: Last Oral Intake NPO since Meds taken in AM with sips of water? 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 - veterans service representative: PONV - veterans service representative Female HX of Motion Sickness HX of N/V After Surgery Non-Smoker Duration of Surgery greater than 60 minutes Number of Risk Factors PONV Score Height & Weight Height & Weight: Anesthesia: Height & Weight Height 5 ft 10 in 09/04/24 21:48 Weight: 93.3 kg 09/05/24 06:00 Body Mass Index (BMI) 29.5 09/05/24 06:00 Respiratory Assessment Respiratory Assessment - veterans service representative: Respiratory Tract Infection Hx - veterans service representative Hx Respiratory Tract Infection No 09/05/24 08:06 STOP Sleep Apnea STOP Sleep Apnea - veterans service representative: STOP Sleep Apnea - veterans service representative Hx Hypertension No 09/04/24 21:48 Hx Sleep Apnea No 09/04/24 21:48 CPAP BIPAP Do you snore loudly (louder No 09/04/24 21:48 than talking or can be heard Do you often feel tired/ No 09/04/24 21:48 fatigued/ sleepy during daytime? Has anyone observed you stop No 09/04/24 21:48 breathing during sleep? STOP Results Negative 09/04/24 21:48 QUESTION #5 FULL TEXT : Do you snore loudly (louder than talking or can be heard through closed doors)? 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 Specify any problems Hx of Preganancy in last 3 N/A 09/04/24 21:48 Months Nurse Filling Out Transfusion [email or web address] 09/04/24 21:48 & Questions: Date: 09/04/24 09/04/24 21:48 Time: 21:59 09/04/24 21:48 Patient unable to answer at this time (ie. confused, unrespo /Reproduction History /Reproductive History - veterans service representative: /Reproductive Hx- veterans service representative Hx Now No 09/05/24 08:06 Gestational Age (in weeks): EDC: Hx Hx Para Hx Section SAB No 09/05/24 08:06 Active Medications Active Medications: Current Medications Generic Name Dose Route Start Last Admin Trade Name Freq PRN Reason Stop Dose Admin Pantoprazole Sodium 40 mg/ 110 mls @ 330 mls/hr 09/05/24 10:00 09/05/24 10:43 Sodium Chloride IV 330 mls/hr DAILY RICARDO Administration Piperacillin Sod/Tazobactam 50 mls @ 12.5 mls/hr 09/04/24 22:00 09/05/24 10:14 Sod 3.375 gm/ Sodium Chloride IV Infused Q8 RICARDO Infusion Sodium Chloride 1,000 mls @ 125 mls/hr 09/04/24 21:14 09/05/24 06:14 IV 09/05/24 13:13 125 mls/hr .Q8H RICARDO Administration Protocol Sodium Chloride 500 mls @ 15 mls/hr 09/04/24 21:48 IV .[id number] PRN Saline Flush Sodium Chloride 500 mls @ 15 mls/hr 09/04/24 21:48 IV .[id number] PRN Additional IVPB Infusion Ketorolac Tromethamine 15 mg 09/04/24 21:51 Ketorolac 15 Mg/Ml Vial IV 09/09/24 21:52 Q8H PRN PRN Pain 1-5/10 or Fever Morphine Sulfate 2 mg 09/04/24 21:51 Morphine 2 Mg/Ml Syringe IV Q4H PRN PRN Pain Score 6-10 Ondansetron HCl 4 mg 09/04/24 21:51 Ondansetron 4 Mg/2 Ml Vial IV Q6H PRN PRN BREAKTHROUGH NAUSEA Promethazine HCl 12.5 mg 09/04/24 21:51 Promethazine 25 Mg/Ml Syringe IM Q4H PRN PRN BREAKTHROUGH NAUSEA Sodium Chloride 10 - 40 ml 09/04/24 21:48 0.9% Saline Lock 10 Ml Syringe IV UD PRN SALINE FLUSH PFSH Medical History No pertinent past medical history Home Medications ?Medication ?Instructions ?Recorded ?Last Taken ?Type NK 09/04/24 Unknown History Allergy/AdvReac Type Severity Reaction Status Date / Time No Known Allergies Allergy Verified 09/04/24 16:55 Social History Smoking Status: Never smoker Review of Systems (Anesthesia) ROS Narrative System reviewed and no additional complaints, except as documented.
--- NOTE | 2024-09-05 11:36 | PN.HOSP_ITS ---
Reason for Visit Reason for Visit: Diagnoses Overweight (09/04/24) Calculus of bile duct without cholangitis or cholecystitis without obstruction (09/04/24) Unspecified jaundice (09/04/24) Subjective Subjective Saw patient at bedside this morning, present. Sitting up comfortably in bed, conversing normally, in no acute distress. Denies any abdominal pain currently. No other acute concerns this morning. Objective Data Objective Data Vital Signs: Vital Signs Temp Pulse Resp BP Pulse Ox O2 Del Method 97.7 F L 82 16 125/81 H 97 Room Air 09/05/24 11:18 09/05/24 11:33 09/05/24 11:33 09/05/24 11:33 09/05/24 11:33 09/05/24 11:33 Oxygen Delivery Method Room Air Weight: 93.3 kg Body Mass Index (BMI) 29.5 Intake & Output: Intake and Output for Last 24 Hours 09/03/24 09/04/24 09/05/24 23:59 23:59 23:59 Intake Total 1087.5 / 1087.5 Balance 1087.5 / 1087.5 Lab / Micro Data 09/05/24 15:09 09/05/24 15:09 Labs: Laboratory Results - last 24 hr 09/04/24 18:20: WBC 5.5, RBC 4.77, Hgb 14.3, Hct 43.1, MCV 90.4, MCH 30.0, MCHC 33.2, RDW Std Deviation 54.2 H, RDW Coeff of Joanne 16.2 H, Plt Count 325, MPV 9.5, Immature Gran % (Auto) 1.600 H, Neut % (Auto) 63.2, Lymph % (Auto) 18.8 L, [place] % (Auto) 12.4 H, Eos % (Auto) 2.9, Baso % (Auto) 1.1 H, Absolute Neuts (auto) 3.5, Absolute Lymphs (auto) 1.03, Nucleated RBC % 0, PT 11.9, INR 0.9, Sodium 138, Potassium 3.9, Chloride 102, Carbon Dioxide 28.0, Anion Gap 8, BUN 13, Creatinine 1.13, Estim Creat Clear Calc 99.11, Est GFR (MDRD) Af Amer 92, Est GFR (MDRD) Non-Af 76, BUN/Creatinine Ratio 11.5, Glucose 105, Hemoglobin A1c 4.8, Calcium 9.8, Total Bilirubin 23.90 H*, Direct Bilirubin 20.11 H, AST 68 H, ALT 78 H, Alkaline Phosphatase 199 H, Total Protein 7.6, Albumin 3.7, Globulin 3.9, Albumin/Globulin Ratio 0.9, Triglycerides Cancelled, Cholesterol Cancelled, LDL Cholesterol Cancelled, VLDL Cholesterol Cancelled, HDL Cholesterol Cancelled, Lipase 43, TSH 0.545 09/04/24 19:02: Urine Color Yellow, Urine Clarity Clear, Urine pH 6.0, Ur Specific [place] 1.005, Urine Protein Negative, Urine Glucose (UA) Normal, Urine Ketones Negative, Urine Occult Blood Negative, Urine Nitrite Negative, Urine Bilirubin Negative, Urine Urobilinogen Normal, Ur Leukocyte Esterase Negative, Urine RBC 0 SEEN, Urine WBC 0 SEEN, Ur Squamous Epith Cells 0 SEEN, Urine Bacteria 1+, Urine Mucus 0 SEEN 09/05/24 05:10: WBC 3.7 L, RBC 4.18 L, Hgb 12.3 L, Hct 37.2 L, MCV 89.0, MCH 29.4, MCHC 33.1, RDW Std Deviation 54.4 H, RDW Coeff of Joanne 16.7 H, Plt Count 269, MPV 9.8, Immature Gran % (Auto) 1.400 H, Neut % (Auto) 55.5, Lymph % (Auto) 25.8, [place] % (Auto) 12.6 H, Eos % (Auto) 3.3, Baso % (Auto) 1.4 H, Absolute Neuts (auto) 2.0, Absolute Lymphs (auto) 0.94, Nucleated RBC % 0, Sodium 138, Potassium 3.7, Chloride 107, Carbon Dioxide 25.0, Anion Gap 6, BUN 10, Creatinine 1.02, Estim Creat Clear Calc 109.35, Est GFR (MDRD) Af Amer 104, Est GFR (MDRD) Non-Af 86, BUN/Creatinine Ratio 9.8 L, Glucose 93, Calcium 9.0, Phosphorus 3.8, Magnesium 2.2, Total Bilirubin 19.20 H*, AST 55 H, ALT 57, A lkaline Phosphatase 153 H, Total Protein 5.8 L, Albumin 2.7 L, Globulin 3.1, Albumin/Globulin Ratio 0.9, Triglycerides 333 H, Cholesterol 156, LDL Cholesterol 83, VLDL Cholesterol 67 H, HDL Cholesterol 6 L Radiography Diagnostic Testing: Radiology Impression Gallbladder Ultrasound 09/04/24 19:31 IMPRESSION: Diffuse intrahepatic and extrahepatic biliary ductal dilatation noted, as seen on the prior CT. Gallstone at the neck of the gallbladder. No definite ductal filling defects seen, but this can be evaluated further with MRCP or ERCP. Electronically Signed: Major Roberson MD at 21:07 EST , Abdomen/Pelvis CT 09/04/24 19:32 IMPRESSION: Diffuse intrahepatic and extrahepatic biliary ductal dilatation. A gallstone is noted. Suspected filling defect in the common bile duct. This can be evaluated with ERCP or MRCP. No inflammatory change seen of the gallbladder. Electronically Signed: Major Roberson MD at 20:28 EST , Physical Exam Const alert, oriented x3, no apparent distress and average body habitus Constitutional Narrative: Pleasant middle-age male, sitting up comfortably in bed, conversing normally, no acute distress. General Appearance: cooperative and comfortable HEENT normocephalic, head/scalp atraumatic, hearing grossly normal bilaterally, nasal mucous membranes and turbinates normal and moist oral mucous membranes Eyes PERRL, EOMs intact bilaterally and conjunctivae normal Neck full ROM Chest inspection of chest normal Resp normal respiratory effort, normal air movement, no use of accessory muscles and clear to auscultation bilaterally Cardio regular rate, regular rhythm, no murmurs and peripheral pulses 2+ throughout GI normal to inspection, nondistended, normoactive bowel sounds, soft to palpation, non-tender and non-distended Back/Spine normal ROM Extremity normal to inspection, full ROM and no pedal edema Skin Skin Narrative: Whole-body jaundice noted. Neuro oriented x3 and moves all extremities Sensorium / Orientation: awake and alert Speech: speech normal Psych mental status grossly normal Assessment & Plan Assessment/Plan (1) Hyperbilirubinemia: (2) Jaundice: PLAN: Plan Patient is a 39-year-old male who presented [facility] ED on 09/04/24 with worsening jaundice and intermittent abdominal pain. 1. Severe hyperbilirubinemia with jaundice suspected secondary to choledocholithiasis ? GI following. Total bilirubin 23.90, direct bilirubin 20.11 on admit. AST, ALT and alk phos only mildly elevated. CT abdomen pelvis and gallbladder ultrasound both showed diffuse intrahepatic and extrahepatic biliary ductal dilation with a gallstone noted. ERCP done with Dr. Babin on 09/05, unclear on result procedure, will follow-up tomorrow. Continue IV Zosyn for now. Trend daily LFTs. 2. Overweight ? BMI 29 on admit. Encouraged lifestyle modifications. DVT prophylaxis: SCDs CODE STATUS: Full code, verified Expected disposition: Home, 1 to 2 days Total clinical time spent by myself addressing the patient's medical issues, reviewing all the data, and collaborating with patient's care team: 35 minutes. Charges/Coding Visit Charges Inpatient E&M: 73145 Subs Hosp L2
--- NOTE | 2024-09-05 12:07 | CASEMGMT ---
DAJA LOPEZ attempted to see patient, in pre-op for ERCP.
--- NOTE | 2024-09-05 12:28 | RAD_ITS ---
ERCP INDICATION: Abdominal pain. FINDINGS: 218 seconds of fluoroscopy was utilized operative during ERCP and 14 images are submitted for interpretation. There is narrowing of the distal common bile duct worrisome for stricture. A biliary stent was placed. RAD/ERCP Biliary/Pancreas IMPRESSION: Fluoroscopy during ERCP. Electronically Signed: Jhonatan Brown MD at 9:00 EST ,
--- NOTE | 2024-09-05 13:29 | PCM.POST.ANE ---
Anesthesia: Postop Eval I Current Vital Signs Temperature: 97 F Pulse Rate: 90 Blood Pressure: 147/90 Respiratory Rate: 16 Pulse Ox: 98 Assessment Airway patent: Yes Spontaneous unlabored respirations: Yes nausea: No Vomiting: No Anesthesia Complication: No Fluid Hydration Crystalloid volume administer (ml): 500 Total IV fluid infused: 500 Progress Note Anesthesia document: Postop Eval 1 completed: Yes
--- NOTE | 2024-09-05 13:30 | PCM.POSTANE2 ---
Anesthesia Postop Eval I Sum Postop Eval Completion status Anesthesia document: Postop Eval 1 completed: Yes Anesthesia Postop Eval I Summary Anesthesia Postop Eval I Summary: Anesthesia Postop Eval I: Assessment Summary Airway patent Yes 09/05/24 13:29 Spontaneous unlabored Yes 09/05/24 13:29 respirations Mental status nausea No 09/05/24 13:29 Vomiting No 09/05/24 13:29 Anesthesia Postop Eval I: Fluid Summary Crystalloid volume administer 500 09/05/24 13:29 (ml) Colloids volume administered ( ml) Blood Product volume administered (ml) Total IV fluid infused 500 09/05/24 13:29 Anesthesia Postop Eval I: Summary Notes Anesthesia Complication No 09/05/24 13:29 Anesthesia Complication Comment: Post-operative progress note Anesthesia: Postop Eval II Evaluation Mental status: Awake Pain Level: 0 nausea: No Vomiting: No
--- NOTE | 2024-09-05 13:42 | PCM.POSTANE2 ---
Anesthesia Postop Eval I Sum Postop Eval Completion status Anesthesia document: Postop Eval 1 completed: Yes Anesthesia Postop Eval I Summary Anesthesia Postop Eval I Summary: Anesthesia Postop Eval I: Assessment Summary Airway patent Yes 09/05/24 13:29 Spontaneous unlabored Yes 09/05/24 13:29 respirations Mental status Awake 09/05/24 13:30 nausea No 09/05/24 13:30 Vomiting No 09/05/24 13:30 Anesthesia Postop Eval I: Fluid Summary Crystalloid volume administer 500 09/05/24 13:29 (ml) Colloids volume administered ( ml) Blood Product volume administered (ml) Total IV fluid infused 500 09/05/24 13:29 Anesthesia Postop Eval I: Summary Notes Anesthesia Complication No 09/05/24 13:29 Anesthesia Complication Comment: Post-operative progress note Anesthesia: Postop Eval II Evaluation Mental status: Awake Pain Level: 0 nausea: No Vomiting: No
[2024-09-05 14:26] LABS: LDH 133 U/L (87-241)
--- NOTE | 2024-09-05 14:31 | CASEMGMT ---
Social Work SW spoke w/pt in regard to self pay status. Pt states he has a [employer] insurance that he pays into, and they reimburse for healthcare costs. YAJAIRA Metcalf
--- NOTE | 2024-09-05 14:36 | CASEMGMT ---
DAJA LOPEZ Assessment: Face to Face with pt for initial transition planning/care coordination assessment. DAJA LOPEZ introduced self and role at [facility], pt voices understanding and consents to assessment. Pt is A&O x4 and answers all questions appropriately at this time. Pt lying in bed in no distress, standing at bedside. Care providers, pharmacy, and demographics verified/updated. Strata: 1 Admitting Dx: Choledochlithiasis with severe jaundice PCP: [facility] Specialists: Denies Preferred Pharmacy: [facility] Insurance: Self Pay Prescription Benefit: yes LNOK: , [place] [facility] Arrangements: Pt lives with in 2 story home with 2 steps to enter. ADLs: Pt I with ADLs Transportation: Pt drives self and denies concerns with transportation. DME: Denies HHC/SNF: Denies Hx of. Pt states no concerns with going home at time of dc. Pt states no further concerns/needs. CM to follow. Advised pt to ask CM if any further question/concerns/needs arise, voices understanding. Pt Goal: Home Plan: Home Kaylee FARNSWORTH CM
[2024-09-05 15:20] LABS: Absolute Lymphocyte Count 0.63 X10^3/uL (0.83-4.51); Basophil# 0.06 X10^3/uL; Basophil% 0.7 % (0-1); Eosinophil# 0.06 X10^3/uL; Eosinophils% 0.7 % (0-5); Hematocrit 39.7 % (40-54); Hemoglobin 13.4 g/dL (13.0-16.5); Lymphocyte # 0.63 X10^3/ul (0.83-4.51); Lymphocyte % 7.6 % (19-41); Mean Corp Hgb Conc 33.8 g/dL (32-36); Mean Platelet Vol. 9.5 fl (6.2-12.0); Monocyte# 0.49 X10^3/uL; Monocyte% 5.9 % (0-10); NRBC Flagged by Analyzer 0 % (0-5); Neutrophil # 7.04 X10^3/uL (2.7-7.7); Neutrophil % 84.4 % (47-70); Platelet Count 322 K/mm3 (150-450); RBC Distribution Width CV 16.8 % (11.6-14.6); RBC Distribution Width SD 54.4 fl (35.1-43.9); Red Blood Count 4.46 M/mm3 (4.6-6.2); White Blood Count 8.3 K/mm3 (4.4-11.0)
[2024-09-05 15:33] LABS: International Normalized Ratio 0.9; Prothrombin Time (Protime)PT. 11.9 SECONDS (11.7-14.9)
[2024-09-05 16:29] LABS: AST(SGOT) 72 U/L (15-37); Alanine Aminotransfer ALT/SGPT 71 U/L (16-61); Albumin, Serum 3.1 g/dL (3.2-5.0); Alkaline Phosphatase 183 U/L (45-117); Anion Gap 8 (5-15); BUN 10 mg/dL (7-18); BUN/Creat Ratio 8.8 RATIO (10-20); Calcium,Total 9.3 mg/dL (8.5-10.1); Chloride 107 mmol/L (98-107); Creatinine, Serum 1.13 mg/dL (0.70-1.30); EST Glomerular Filtration Rate 76 mL/min (>60); Est Glom Filt Rate - Afr Amer 92 mL/min (>60); Estimated Creatinine Clearance 98.71 ml/min; Glucose 104 mg/dL (74-106); Potassium 4.4 mmol/L (3.5-5.1); Protein, Total 6.1 g/dL (6.4-8.2); Sodium Level 140 mmol/L (136-145)
[2024-09-05] MEDS: BENZOCAINE/MENTHOL 1 LOZENGE MUCOUS MEM ×2 (17:08→19:04)
[2024-09-05] MEDS: 0.9% Saline Lock 10 ML Syringe IV (22:27)
[2024-09-06 02:22] VITALS: BP 116/79; PULSE 64; RESP 14; TEMP 36.7; O2SAT 99
[2024-09-06] MEDS: Piperacil/Tazobactam 3.375 GM in 0.9% Normal Saline (50mL MB+) 50 ML IV ×3 (05:57→22:25)
[2024-09-06 06:00] VITALS: BP 131/75; PULSE 59; RESP 14; TEMP 36.6; O2SAT 98; BMI 29.2
[2024-09-06 07:30] LABS: Hematocrit 38.6 % (40-54); Hemoglobin 13.2 g/dL (13.0-16.5); Mean Corp Hgb Conc 34.2 g/dL (32-36); Mean Corpuscular Hgb 30.3 pg (27.0-32.0); Mean Corpuscular Volume 88.7 fL (80-94); Mean Platelet Vol. 9.5 fl (6.2-12.0); Platelet Count 291 K/mm3 (150-450); RBC Distribution Width SD 54.9 fl (35.1-43.9); Red Blood Count 4.35 M/mm3 (4.6-6.2); White Blood Count 6.8 K/mm3 (4.4-11.0)
--- NOTE | 2024-09-06 08:00 | MRI_ITS ---
STUDY: MR CHOLANGIOPANCREATOGRAPHY (MRCP) REASON FOR EXAM: Male, 39 years old. painless jaundice TECHNIQUE: Standard MRCP technique was utilized. COMPARISON: None. FINDINGS: Gall Bladder: Multiple hypointense filling defects consistent with stones consistent with cholelithiasis. Cystic duct: Normal with no demonstrated fixed filling defect. Intrahepatic ducts: Normal visualized intrahepatic ducts with no demonstrated fixed filling defect, dilation or stricture. Common hepatic duct: Normal with no demonstrated fixed filling defect, dilation or stricture. Common bile duct: Poorly visualized due to biliary stent. Pancreatic duct: Normal with no demonstrated fixed filling defect, dilation or stricture. MRI/MRCP Abdomen without Contrast IMPRESSION: Cholelithiasis. Biliary stent. Electronically Signed: Jhonatan Brown MD at 9:08 EST ,
[2024-09-06 08:21] VITALS: BP 125/76; PULSE 65; RESP 16; TEMP 36.6; O2SAT 96
[2024-09-06 08:22] LABS: ALB/GLOB Ratio 0.8 RATIO (0.9-2.4); AST(SGOT) 58 U/L (15-37); Alanine Aminotransfer ALT/SGPT 63 U/L (16-61); Albumin, Serum 2.8 g/dL (3.2-5.0); Alkaline Phosphatase 165 U/L (45-117); Anion Gap 6 (5-15); BUN 14 mg/dL (7-18); BUN/Creat Ratio 11.9 RATIO (10-20); Calcium,Total 9.1 mg/dL (8.5-10.1); Chloride 106 mmol/L (98-107); Creatinine, Serum 1.18 mg/dL (0.70-1.30); EST Glomerular Filtration Rate 72 mL/min (>60); Est Glom Filt Rate - Afr Amer 88 mL/min (>60); Globulin 3.3 g/dL (2.2-4.2); Glucose 112 mg/dL (74-106); Magnesium 2.1 mg/dL (1.6-2.6); Phosphorus 3.2 mg/dL (2.5-4.9); Potassium 4.1 mmol/L (3.5-5.1); Protein, Total 6.1 g/dL (6.4-8.2); Sodium Level 140 mmol/L (136-145)
[2024-09-06] MEDS: Pantoprazole Sodium 40 MG in 0.9% Normal Saline (100mL MB+) 100 ML 330 MG IV (11:00)
[2024-09-06] MEDS: 0.9% Saline Lock 10 ML Syringe IV (11:05)
--- NOTE | 2024-09-06 12:07 | PN.HOSP_ITS ---
Reason for Visit Reason for Visit: Diagnoses Overweight (09/04/24) Other disorders of bilirubin metabolism (09/04/24) Calculus of bile duct without cholangitis or cholecystitis without obstruction (09/04/24) Unspecified jaundice (09/04/24) Subjective Subjective Saw patient at bedside this morning, parents present. Patient just returned from his MRCP. He was sitting up comfortably in bed and in no acute distress. Stated he tolerated the ERCP without issue yesterday and the MRCP this morning without issue. Denied any abdominal pain at this point. Denied any fevers or chills. No other new concerns today. Objective Data Objective Data Vital Signs: Vital Signs Temp Pulse Resp BP Pulse Ox O2 Del Method 97.8 F 65 16 125/76 H 96 Room Air 09/06/24 08:21 09/06/24 08:21 09/06/24 08:21 09/06/24 08:21 09/06/24 08:21 09/06/24 08:21 Oxygen Delivery Method Room Air Weight: 92.6 kg Body Mass Index (BMI) 29.2 Intake & Output: Intake and Output for Last 24 Hours 09/04/24 09/05/24 09/06/24 23:59 23:59 23:59 Intake Total 2447.5 / 2447.5 310 / 310 Balance 2447.5 / 2447.5 310 / 310 Lab / Micro Data 09/06/24 07:15 09/06/24 07:15 Labs: Laboratory Results - last 24 hr 09/05/24 05:32: Lactate Dehydrogenase 133 09/05/24 15:09: WBC 8.3, RBC 4.46 L, Hgb 13.4, Hct 39.7 L, MCV 89.0, MCH 30.0, MCHC 33.8, RDW Std Deviation 54.4 H, RDW Coeff of Joanne 16.8 H, Plt Count 322, MPV 9.5, Immature Gran % (Auto) 0.700, Neut % (Auto) 84.4 H, Lymph % (Auto) 7.6 L, [place] % (Auto) 5.9, Eos % (Auto) 0.7, Baso % (Auto) 0.7, Absolute Neuts (auto) 7.0, Absolute Lymphs (auto) 0.63 L, Nucleated RBC % 0, PT 11.9, INR 0.9, Sodium 140, Potassium 4.4, Chloride 107, Carbon Dioxide 24.0, Anion Gap 8, BUN 10, Creatinine 1.13, Estim Creat Clear Calc 98.71, Est GFR (MDRD) Af Amer 92, Est GFR (MDRD) Non-Af 76, BUN/Creatinine Ratio 8.8 L, Glucose 104, Calcium 9.3, T otal Bilirubin 22.10 H*, AST 72 H, ALT 71 H, Alkaline Phosphatase 183 H, Total Protein 6.1 L, Albumin 3.1 L, Globulin 3.0, Albumin/Globulin Ratio 1.0 09/06/24 07:15: WBC 6.8, RBC 4.35 L, Hgb 13.2, Hct 38.6 L, MCV 88.7, MCH 30.3, MCHC 34.2, RDW Std Deviation 54.9 H, RDW Coeff of Joanne 17.0 H, Plt Count 291, MPV 9.5, Sodium 140, Potassium 4.1, Chloride 106, Carbon Dioxide 27.0, Anion Gap 6, BUN 14, Creatinine 1.18, Estim Creat Clear Calc 94.20, Est GFR (MDRD) Af Amer 88, Est GFR (MDRD) Non-Af 72, BUN/Creatinine Ratio 11.9, Glucose 112 H, Calcium 9.1, Phosphorus 3.2, Magnesium 2.1, Total Bilirubin 20.10 H*, AST 58 H, ALT 63 H , Alkaline Phosphatase 165 H, Total Protein 6.1 L, Albumin 2.8 L, Globulin 3.3, Albumin/Globulin Ratio 0.8 L Physical Exam Const alert, oriented x3, no apparent distress and average body habitus Constitutional Narrative: Pleasant middle-age male, whole-body jaundice noted, otherwise sitting up comfortably in bed, conversing normally, no acute distress. General Appearance: cooperative and comfortable HEENT normocephalic, head/scalp atraumatic, hearing grossly normal bilaterally, nasal mucous membranes and turbinates normal and moist oral mucous membranes Eyes PERRL, EOMs intact bilaterally and conjunctivae normal Neck full ROM Chest inspection of chest normal Resp normal respiratory effort, normal air movement, no use of accessory muscles and clear to auscultation bilaterally Cardio regular rate, regular rhythm, no murmurs and peripheral pulses 2+ throughout GI normal to inspection, nondistended, normoactive bowel sounds, soft to palpation, non-tender and non-distended Back/Spine normal ROM Extremity normal to inspection, full ROM and no pedal edema Skin Skin Narrative: Whole-body jaundice noted. Neuro oriented x3 and moves all extremities Sensorium / Orientation: awake and alert Speech: speech normal Psych mental status grossly normal Assessment & Plan Assessment/Plan (1) Hyperbilirubinemia: (2) Jaundice: PLAN: Plan Patient is a 39-year-old male who presented [facility] ED on 09/04/24 with worsening jaundice and intermittent abdominal pain. 1. Severe hyperbilirubinemia with jaundice ? GI following. Total bilirubin 23.90, direct bilirubin 20.11 on admit. AST, ALT and alk phos only mildly elevated and INR normal. CT abdomen pelvis and gallbladder ultrasound both showed diffuse intrahepatic and extrahepatic biliary ductal dilation with a gallstone noted. S/p ERCP on 09/05; report pending but per discussion with Dr. Babin, found small gallstone that was removed but no other significant findings noted. MRCP completed on 09/06, read pending. In discussion with Dr. Babin on 09/06, highest concern is for an acute hepatitis secondary to several naturopathic supplements that patient has been taking. Unclear on names of these supplements, see Dr. Babin's note for further details. Given the normal INR and only mild elevated LFTs aside from bilirubin, patient has low MELD score and low concern for acute liver failure. Liver biopsy ordered by Dr. Babin and depending on that result, patient may need to be initiated on steroids. Okay to continue IV Zosyn for now. Trend daily LFTs. 2. Overweight ? BMI 29 on admit. Encouraged lifestyle modifications. DVT prophylaxis: SCDs CODE STATUS: Full code, verified Expected disposition: Home, TBD Total clinical time spent by myself addressing the patient's medical issues, reviewing all the data, and collaborating with patient's care team: 35 minutes. Charges/Coding Visit Charges Inpatient E&M: 48737 Subs Hosp L2
[2024-09-06 15:53] VITALS: BP 119/91; PULSE 77; RESP 16; TEMP 36.3; O2SAT 98
[2024-09-06 22:00] VITALS: BP 115/79; PULSE 67; RESP 16; TEMP 37; O2SAT 99
[2024-09-07 04:00] VITALS: BP 107/76; PULSE 55; RESP 16; TEMP 36.4; O2SAT 99
[2024-09-07] MEDS: Piperacil/Tazobactam 3.375 GM in 0.9% Normal Saline (50mL MB+) 50 ML IV (05:24)
[2024-09-07 06:51] LABS: ALB/GLOB Ratio 0.8 RATIO (0.9-2.4); AST(SGOT) 47 U/L (15-37); Alanine Aminotransfer ALT/SGPT 50 U/L (16-61); Albumin, Serum 2.6 g/dL (3.2-5.0); Alkaline Phosphatase 150 U/L (45-117); Anion Gap 6 (5-15); BUN 20 mg/dL (7-18); BUN/Creat Ratio 16.8 RATIO (10-20); Calcium,Total 9.4 mg/dL (8.5-10.1); Chloride 106 mmol/L (98-107); Creatinine, Serum 1.19 mg/dL (0.70-1.30); EST Glomerular Filtration Rate 72 mL/min (>60); Est Glom Filt Rate - Afr Amer 87 mL/min (>60); Estimated Creatinine Clearance 93.41 ml/min; Globulin 3.4 g/dL (2.2-4.2); Glucose 100 mg/dL (74-106); Potassium 3.8 mmol/L (3.5-5.1); Sodium Level 138 mmol/L (136-145)
[2024-09-07 08:00] VITALS: BP 114/72; PULSE 70; RESP 18; TEMP 36.5; O2SAT 99
--- NOTE | 2024-09-07 08:33 | PN.GI_ITS ---
Subjective Subjective Patient is feeling alot better despite his labs are still significantly elevated. Objective Data Objective Data Vital Signs: Vital Signs Temp Pulse Resp BP Pulse Ox O2 Del Method 97.7 F L 70 18 114/72 99 Room Air 09/07/24 08:00 09/07/24 08:00 09/07/24 08:00 09/07/24 08:00 09/07/24 08:00 09/07/24 08:00 Oxygen Delivery Method Room Air Weight: 204 lb 2.369 oz Body Mass Index (BMI) 29.2 Intake & Output: Intake and Output for Last 24 Hours 09/05/24 09/06/24 09/07/24 23:59 23:59 23:59 Intake Total 2447.5 / 2447.5 360 / 360 210 / 210 Balance 2447.5 / 2447.5 360 / 360 210 / 210 Lab / Micro Data 09/06/24 07:15 09/07/24 05:58 Labs: Laboratory Results - last 24 hr 09/07/24 05:58: Sodium 138, Potassium 3.8, Chloride 106, Carbon Dioxide 26.0, Anion Gap 6, BUN 20 H, Creatinine 1.19, Estim Creat Clear Calc 93.41, Est GFR (MDRD) Af Amer 87, Est GFR (MDRD) Non-Af 72, BUN/Creatinine Ratio 16.8, Glucose 100, Calcium 9.4, Total Bilirubin 16.70 H*, AST 47 H, ALT 50, Alkaline Phosphatase 150 H, Total Protein 6.0 L, Albumin 2.6 L, Globulin 3.4, A lbumin/Globulin Ratio 0.8 L Radiography Diagnostic Testing: Radiology Impression Endo Retro Cholangiopancreatogram 09/05/24 12:28 IMPRESSION: Fluoroscopy during ERCP. Electronically Signed: Jhonatan Brown MD at 9:00 EST , [facility] 09/06/24 08:00 IMPRESSION: Cholelithiasis. Biliary stent. Electronically Signed: Jhonatan Brown MD at 9:08 EST , Physical Exam Const alert, oriented x3, no apparent distress and average body habitus Constitutional Narrative: Pleasant middle-age male, whole-body jaundice noted, otherwise sitting up comfortably in bed, conversing normally, no acute distress. General Appearance: cooperative and comfortable HEENT normocephalic, head/scalp atraumatic, hearing grossly normal bilaterally, nasal mucous membranes and turbinates normal and moist oral mucous membranes Eyes PERRL, EOMs intact bilaterally and conjunctivae normal Neck full ROM Chest inspection of chest normal Resp normal respiratory effort, normal air movement, no use of accessory muscles and clear to auscultation bilaterally Cardio regular rate, regular rhythm, no murmurs and peripheral pulses 2+ throughout GI normal to inspection, nondistended, normoactive bowel sounds, soft to palpation, non-tender and non-distended Back/Spine normal ROM Extremity normal to inspection, full ROM and no pedal edema Skin Skin Narrative: Whole-body jaundice noted. Neuro oriented x3 and moves all extremities Sensorium / Orientation: awake and alert Speech: speech normal Psych mental status grossly normal Assessment & Plan Assessment/Plan (1) Hyperbilirubinemia: (2) Jaundice: PLAN: Plan Patient is a 39-year-old male who presented [facility] ED on 09/04/24 with worsening jaundice and intermittent abdominal pain. Severe hyperbilirubinemia with jaundice Total bilirubin 23.90, direct bilirubin 20.11 on admit. AST, ALT and alk phos only mildly elevated and INR normal. CT abdomen pelvis and gallbladder ultrasound both showed diffuse intrahepatic and extrahepatic biliary ductal dilation with a gallstone noted. S/p ERCP on 09/05; I found small gallstone that was removed but no other significant findings noted. MRCP completed on 09/06, and it doesn't show any specific abnormalities. I am concerned about an acute hepatitis secondary to several naturopathic supplements that patient has been taking. Unclear on names of these supplements. Given the normal INR and only mild elevated LFTs aside from bilirubin, patient has low MELD score and low concern for acute liver failure. Liver biopsy ordered was ordered by myself however the patient did not want to stay for liver biopsy. Hopefully he will follow-up in office and not have further decompensated liver disease prior to him being seen in office. Charges/Coding Visit Charges Inpatient E&M: 70685 Subs Hosp L3
[2024-09-07] MEDS: Pantoprazole Sodium 40 MG in 0.9% Normal Saline (100mL MB+) 100 ML 330 MG IV (09:37)
--- NOTE | 2024-09-07 11:32 | DS.PCM_ITS ---
Providers Date of Admission: 09/04/24 Date of Discharge: 09/07/24 Primary Care Physician: AGUILAR Giles Consultations 09/04/24 21:51 Consult: Gastroenterology Routine Consulting Provider: Me[facility] Reason for Consult: Choledocholithiasis with Severe Jaundice. EMERGENT Consult: No MD Notified: Yes Date Notified: 09/04/24 Time Notified: 21:10 Method of Notification: ED Physician Initiated Reason For Visit: CHOLEDOCHLITHIASIS WITH SEVERE JAUNDICE Diagnosis Discharge Diagnosis (1) Hyperbilirubinemia: Status: Acute Code(s): E80.6 - Other disorders of bilirubin metabolism (2) Jaundice: Status: Acute Code(s): R17 - Unspecified jaundice Medications at Discharge Home Medications NK 09/04/24 Hospital Course Operations ERCP Procedures - (Gallbladder ultrasound/CT abdomen pelvis/MRCP) Summary of Care Provided Minutes Spent on Discharge: 38 Hospital Course: Mr. Beltran is a 39-year-old white male who presented to the emergency department at [facility] on 09/04/2024 due to severe persistent jaundice. He complains of intermittent epigastric abdominal pain and had a recent gallbladder ultrasound that revealed some gallstones with suspected choledocholithiasis and MRCP was recommended 3 weeks ago but since his abdominal pain resolved he did not proceed with any testing and subsequently presented with severe jaundice here. He did have 3 lab draws as an outpatient to assess his bilirubin and each time they were steadily rising. He reported he been feeling overall well other than his appetite has not been quite as robust as previously. He denied any prescription drugs or use of alcohol or illicit drugs however he is on multiple supplements through a director of assisted living but types were unknown. In the emergency department a CT of the abdomen pelvis was performed and showed diffuse intrahepatic and extrahepatic biliary duct dilation with a gallstone and suspected filling defect in the common bile duct. A gallbladder ultrasound was also performed which revealed diffuse intrahepatic and extrahepatic biliary dilation consistent with CT findings. On presentation he had severe hyperbilirubinemia with a bilirubin of 23.9 having a direct bilirubin of 20.11 and an AST of 68 and an ALT of 78. Alk phos was 199. [employer] Services Manager on-call was contacted and recommended admission with ERCP. He was admitted to the medical floor and made n.p.o. GI evaluated patient and he was taken for ERCP on 09/05/2024. ERCP demonstrated a small gallstone that was removed but no other significant findings noted. Multiple labs were ordered as the exact etiology of his hyperbilirubinemia was felt to be other than the gallstone that was found on ERCP and are all pending at the time of discharge. The highest concern was for multiple supplements that he has been taking from a director of assisted living of which the names are unclear. MELD score was calculated and low and MRCP was recommended along with liver biopsy by Dr. Babin. MRCP only found cholelithiasis and a biliary stent in place with no significant liver abnormalities noted. Given this, the patient did not want to pursue liver biopsy at this time and wanted to follow-up as an outpatient. His bilirubin did steadily trend down and the day of discharge was 16.7. His appetite was improved and he overall felt well and was anxious to go home. We were able to set up an outpatient follow-up to be closely evaluated by GI at the end of the week and it was strongly recommended that he keep this appointment. GI will be able to follow-up in his pending lab evaluation as well as repeat labs to trend his bilirubin further. We did discuss that was imperative for him to hold his supplements at this time. Patient was able to be discharged home in stable condition on 09/07/2024. I would also recommend general surgery consultation for cholecystectomy and will make referral to general surgery and have patient call to set up appointment as an outpatient. This was discussed with him prior to discharge. Discharge diagnoses: Severe hyperbilirubinemia-trending down Choledocholithiasis Nausea Overweight Physical Exam Const alert, oriented x3, no apparent distress, no limitations, healthy appearing and well nourished Constitutional Narrative: Overweight, white male, sitting up in bed, appears comfortable, family at bedside, does not appear toxic General Appearance: cooperative, comfortable, well kempt and well developed Nutritional Appearance: overweight HEENT normocephalic, head/scalp atraumatic, hearing grossly normal bilaterally and moist oral mucous membranes HEENT Narrative: Mallampati 2-3, no thrush Eyes Eyes Narrative: Scleral icterus noted Neck no lymphadenopathy and supple Neck Narrative: Trachea midline Resp normal respiratory effort, no retractions, no use of accessory muscles and clear to auscultation bilaterally Auscultation: Negative for rales, rhonchi or wheezes Cardio regular rate, regular rhythm, S1 normal heart sound, S2 normal heart sound, no murmurs, no rub, no gallops and no clicks GI normal to inspection, nondistended, normoactive bowel sounds, soft to palpation and non-tender Extremity no clubbing, cyanosis or edema Extremity Narrative: 2+ pedal and radial pulses Skin no rashes or lesions noted, no wounds and No no jaundice Skin Narrative: Marked jaundice present Neuro oriented x3, CN's II-XII intact bilaterally, moves all extremities and no focal motor deficits Speech: speech normal Psych affect normal Psych Narrative: Very pleasant, interacts appropriately Weight / BMI Weight Weight: 92.6 kg Body Mass Index (BMI) 29.2 ABG / Lab / Microbiology Data 09/06/24 07:15 09/07/24 05:58 Laboratory: Laboratory Results - last 24 hr 09/07/24 05:58: Sodium 138, Potassium 3.8, Chloride 106, Carbon Dioxide 26.0, Anion Gap 6, BUN 20 H, Creatinine 1.19, Estim Creat Clear Calc 93.41, Est GFR (MDRD) Af Amer 87, Est GFR (MDRD) Non-Af 72, BUN/Creatinine Ratio 16.8, Glucose 100, Calcium 9.4, Total Bilirubin 16.70 H*, AST 47 H, ALT 50, Alkaline Phosphatase 150 H, Total Protein 6.0 L, Albumin 2.6 L, Globulin 3.4, A lbumin/Globulin Ratio 0.8 L Radiography Diagnostic Testing: Radiology Impression Endo Retro Cholangiopancreatogram 09/05/24 12:28 IMPRESSION: Fluoroscopy during ERCP. Electronically Signed: Jhonatan Brown MD at 9:00 EST , MRCP 09/06/24 08:00 IMPRESSION: Cholelithiasis. Biliary stent. Electronically Signed: Jhonatan Brown MD at 9:08 EST , D/C Instructions Discharge Diet: No restrictions DC O2, CPAP, BIPAP Needs Additional Home O2 Discharge instructions: No DC home with Oxygen: No Meaningful Use Info Meaningful Use Meaningful Use Diagnoses (Choose all that apply): None applicable Ischemic Stroke Statin Dosing Therapy Reference: STATIN DOSE THERAPY REFERENCE: * Patients > 75 years receive moderate or high dose statin therapy. * Patients 75 years or YOUNGER should receive HIGH intensity statin dose unless contraindicated. You will be required to document reason for non-treatment if statin daily dose does not meet guidelines. HIGH DOSE STATIN THERAPY DAILY Atorvastatin > than or = to 40 mg Rosuvastatin > than or = to 20 mg Amlodipine + Atorvastatin > than or = to 2.5/40 mg Ezetimibe + Simvastatin 10/80 mg Simvastatin 80mg Discharge Plan Admission Admit Date/Time: 09/04/24 21:07 Attending Provider: Edwina Kimball Primary Care Provider: Shira Arias NP Consulting Providers: Seth Paiz; Cruz Arciniega Instructions Additional Instructions / Restrictions: 1. Please stop all supplements for now. 2. It is very important that you follow-up at the end of the week with Dr. Babin as scheduled to reassess liver Discharge Orders/Prescriptions Prescriptions: No Action NK Referrals / Follow Up: Denys Babin DO [Med Staff - Active Staff] - 09/11/24 8:00 am Shira Arias NP, OCCUPATIONAL REHABILITATION AIDE-C [Primary Care Provider] - Within 2 Weeks Lashawn Ayala MD [Med Staff - Active Staff] - Within 1 Month (call for appt when able) Disposition Disposition (needs filled in before D/C Order can be placed): Home, Self Care Charges/Coding Visit Charges Inpatient E&M: 40799 Disch Hosp >30min
--- NOTE | 2024-09-08 07:12 | OP.CCLET_ITS ---
09/08/2024 Shira Arias Re : ERCP procedure for Jp Beltran Dear [place] This procedure was performed on Thursday, September 05, 2024. My impressions and recommendations are as follows: Impressions : - Choledocholithiasis was found. Complete removal was accomplished by biliary sphincterotomy and balloon extraction. - A biliary sphincterotomy was performed. - The biliary tree was swept. - One temporary stent was placed into the common bile duct. - MRCP to look for pancreatic head mass - Liver biopsy - IgG4 levels, QUIQUE comprehensive, ANCA antibodies, CA 19-9 Recommendations : My findings are described in the full procedure note, which is enclosed. If I can be of further assistance, please feel free to contact me at . Sincerely, eDnys Babin, 09/08/2024 7:12:20 AM This report has been signed electronically.
--- NOTE | 2024-09-08 07:12 | OP.ERCP_ITS ---
Patient Name: pJ Beltran Procedure Date: 09/05/2024 12:05 PM Date of : 1985 Age: 39 Procedure: ERCP Indications: Bile duct stone(s), Abdominal pain of suspected biliary origin, Evaluation and possible treatment of bile duct stone(s), Jaundice, Elevated liver enzymes Providers: Denys Babin DO Medicines: Monitored Anesthesia Care Patient Profile: This is a 39 year old male. Refer to note in patient chart for documentation of history and physical. Patient has symptoms of acute jaundice. Complications: No immediate complications. Procedure: Pre-Anesthesia Assessment: - Prior to the procedure, a History and Physical was performed, and patient medications and allergies were reviewed. The patient is competent. The risks and benefits of the procedure and the sedation options and risks were discussed with the patient. All questions were answered and informed consent was obtained. Patient identification and proposed procedure were verified by the physician in the pre-procedure area. Mental Status Examination: alert and oriented. Airway Examination: normal oropharyngeal airway and neck mobility. Respiratory Examination: clear to auscultation. CV Examination: normal. ASA Grade Assessment: II - A patient with mild systemic disease. After reviewing the risks and benefits, the patient was deemed in satisfactory condition to undergo the procedure. The anesthesia plan was to use general anesthesia. Immediately prior to administration of medications, the patient was re-assessed for adequacy to receive sedatives. The heart rate, respiratory rate, oxygen saturations, blood pressure, adequacy of pulmonary ventilation, and response to care were monitored throughout the procedure. The physical status of the patient was re-assessed after the procedure. After obtaining informed consent, the scope was passed under direct vision. Throughout the procedure, the patient's blood pressure, pulse, and oxygen saturations were monitored continuously. The Duodenoscope was introduced through the mouth, and advanced to the duodenum and used to inject contrast into the bile duct. The ERCP was accomplished without difficulty. The patient tolerated the procedure well. Scope In: 12:43:37 PM Scope Out: 1:19:15 PM Total Procedure Duration Time 0 hours 35 minutes 38 seconds Findings: The nuclear medicine chief technologist film was normal. The esophagus was successfully intubated under direct vision. The scope was advanced to a normal major papilla in the descending duodenum without detailed examination of the pharynx, larynx and associated structures, and upper GI tract. The upper GI tract was grossly normal. The bile duct was deeply cannulated with the short-nosed traction sphincterotome. Contrast was injected. I personally interpreted the bile duct images. There was brisk flow of contrast through the ducts. Image quality was adequate. Contrast extended to the cystic duct. Contrast extended to the gallbladder. Contrast extended to the bifurcation. Contrast extended to the hepatic ducts. Contrast extended to the entire biliary tree. Placement of a 0.035 inch x 260 cm angled Hydra Jagwire into the biliary tree was attempted. This passed successfully. A 5 mm biliary sphincterotomy was made with a traction (standard) sphincterotome using ERBE electrocautery. There was no post-sphincterotomy bleeding. The biliary tree was swept with a 12 mm balloon starting at the bifurcation, left intrahepatic duct(s) and right intrahepatic duct(s). Sludge was swept from the duct. All stones were removed. One 10 Fr by 12 cm temporary stent was placed 5 cm into the common bile duct. Clear fluid flowed through the stent. The stent was in good position. Dilation of common bile duct with 10-12 Fr catheter dilator was successful. One 7 Fr by 15 cm temporary stent was placed 5 cm into the common bile duct. Clear fluid flowed through the stent. The stent was in good position. Impression: - Choledocholithiasis was found. Complete removal was accomplished by biliary sphincterotomy and balloon extraction. - A biliary sphincterotomy was performed. - The biliary tree was swept. - One temporary stent was placed into the common bile duct. - MRCP to look for pancreatic head mass - Liver biopsy - IgG4 levels, QUIQUE comprehensive, ANCA antibodies, CA 19-9 Procedure Code(s): --- Professional --- 38048, Endoscopic retrograde cholangiopancreatography (ERCP); with placement of endoscopic stent into biliary or pancreatic duct, including pre- and post-dilation and guide wire passage, when performed, including sphincterotomy, when performed, each stent [id number], 59, Endoscopic retrograde cholangiopancreatography (ERCP); with placement of endoscopic stent into biliary or pancreatic duct, including pre- and post-dilation and guide wire passage, when performed, including sphincterotomy, when performed, each stent [id number], Endoscopic retrograde cholangiopancreatography (ERCP); with removal of calculi/debris from biliary/pancreatic duct(s) 68740, 26, Endoscopic catheterization of the biliary ductal system, radiological supervision and interpretation CPT copyright 2021 [employer]. All rights reserved. The codes documented in this report are preliminary and upon tongue carrier review may be revised to meet current compliance requirements. Denys Babin DO 09/08/2024 7:12:20 AM This report has been signed electronically. Number of Addenda: 0 Note Initiated On: 09/05/2024 12:05 PM
[2024-09-08 08:11] LABS: Carbohydrate AG 19-9 139 U/mL (0-35)
[2024-09-08 12:09] LABS: Anti-Centromere B Ab <0.2 AI (0.0-0.9); Anti-Chromatin <0.2 AI (0.0-0.9); Anti-Jo <0.2 AI (0.0-0.9); Anti-Scleroderma-70 AB <0.2 AI (0.0-0.9); Anti-dsDNA Ab <1 IU/mL (0-9); RNP Ab <0.2 AI (0.0-0.9); SJOGREN'S Anti-SS-A test < 0.2 AI (0.0-0.9); SJOGREN'S Anti-SS-B test < 0.2 AI (0.0-0.9); Smith Ab <0.2 AI (0.0-0.9)
[2024-09-14 09:22] LABS: AFP, Tumor Marker 3.2 ng/mL (0.0-6.9); Cytoplasmic Ab (C-ANCA) <1:20 titer (Neg:<1:20); IgG, Quant 888 mg/dL (603-1613); Immunoglobulin A 140 mg/dL (90-386); Immunoglobulin E 40 IU/mL (6-495); Immunoglobulin G, Subclass 1 386 mg/dL (248-810); Immunoglobulin G, Subclass 2 276 mg/dL (130-555); Immunoglobulin G, Subclass 3 40 mg/dL (15-102); Immunoglobulin G, Subclass 4 89 mg/dL (2-96); Immunoglobulin M 42 mg/dL (20-172); Perinuclear Ab (P-ANCA) <1:20 titer (Neg:<1:20)
== END 2024-09-07 12:55 | disposition home or self-care (01) | DRG 443 ==
LOC: ED 19:54 → MS3 21:20
PROVIDERS: Hospitalist; Internal Medicine Gastroenterology; Physician Assistant; Admitting Provider Internal Medicine; Emergency Provider Emergency Medicine; PCP Nurse Practitioner Family; Visit Provider Internal Medicine
PROC: 0FC98ZZ Extirpation of Matter from Common Bile Duct, Via Natural or Artificial Opening Endoscopic (ICD-10-PCS; CPT 43260; principal; 2024-09-05 10:45)
DX: E80.7 Disorder of bilirubin metabolism, unspecified (principal); K80.70 Calculus of gallbladder and bile duct without cholecystitis without obstruction; T45.2X5A Adverse effect of vitamins, initial encounter; E66.3 Overweight; Z68.29 Body mass index [BMI] 29.0-29.9, adult
CPT/HCPCS: 36415; 74177; 74181; 74330; 76000; 76705; 80053; 80061; 81001; 82105; 82248; 82784; 82785; 82787; 83036; 83615; 83690; 83735; 84100; 84165; 84443; 85025; 85027; 85610; 86037; 86225; 86235; 86301; 86334; 93005; 94668; 99284; J7030; Q9967; A4216

== ENCOUNTER → 2024-09-11 | Outpatient (CLI) | payer SELFPAY ==
[2024-09-11 09:45] LABS: International Normalized Ratio 0.9; Prothrombin Time (Protime)PT. 12.3 SECONDS (11.7-14.9)
[2024-09-11 10:34] LABS: ALB/GLOB Ratio 0.8 RATIO (0.9-2.4); AST(SGOT) 64 U/L (15-37); Alanine Aminotransfer ALT/SGPT 70 U/L (16-61); Albumin, Serum 3.2 g/dL (3.2-5.0); Alkaline Phosphatase 155 U/L (45-117); Anion Gap 7 (5-15); BUN 17 mg/dL (7-18); BUN/Creat Ratio 13.9 RATIO (10-20); Bilirubin, Direct 11.21 mg/dL (0.00-0.30); CRP < 2.90 mg/L (0.0-3.0); Calcium,Total 9.9 mg/dL (8.5-10.1); Chloride 105 mmol/L (98-107); Cholesterol 215 mg/dL (200); Creatinine, Serum 1.22 mg/dL (0.70-1.30); EST Glomerular Filtration Rate 70 mL/min (>60); Est Glom Filt Rate - Afr Amer 84 mL/min (>60); Ferritin 746 ng/mL (26-388); Globulin 3.8 g/dL (2.2-4.2); Glucose 112 mg/dL (74-106); High Density Lipoprotein 7 mg/dL; Iron 123 ug/dL (65-175); Iron Binding Capacity,Total 378 ug/dL (250-450); PERCENT IRON SATURATION 32.5 % (15.0-55.0); Sodium Level 137 mmol/L (136-145); Thyroid Stim Hormone (TSH) 0.918 uIU/mL (0.358-3.740); Triglycerides 345 mg/dL; Very Low Density Lipoprotein 69 mg/dL (5-40)
[2024-09-14 11:07] LABS: ANTINUCLEAR ANTIBODIES DIRECT Negative (Negative)
[2024-09-14 15:55] LABS: HIV - WCH Non-Reactive (Nonreactive); Hepatitis B Surface Antibody Non-Reactive; Vitamin D,25 Hydroxy 52.6 ng/mL
[2024-09-15 16:08] LABS: Albumin 3.3 g/dL (2.9-4.4); Alpha-1-Globulins 0.3 g/dL (0.0-0.4); Alpha-2-Globulins 0.7 g/dL (0.4-1.0); Carbohydrate AG 19-9 63 U/mL (0-35); Ceruloplasmin 46.2 mg/dL (16.0-31.0); Copper, Serum or Plasma 185 ug/dL (69-132); GGTP 69 IU/L (0-65); Gamma Globulin 0.8 g/dL (0.4-1.8); HEPATITIS B SURFACE AG Negative (Negative); Hep C Antibodies Non Reactive (Non Reactive); Hepatitis A IgM Antibody Negative (Negative); Hepatitis B Core AB IgM Negative (Negative); Immunoglobulin A 150 mg/dL (90-386); Immunoglobulin G 904 mg/dL (603-1613); Immunoglobulin M 48 mg/dL (20-172); PROEL- TOTAL PROTEIN 6.5 g/dL (6.0-8.5)
== END | disposition home or self-care (01) ==
LOC: LAB 08:40
PROVIDERS: PCP Nurse Practitioner Family; Referring Provider Internal Medicine; Visit Provider Internal Medicine
DX: K71.9 Toxic liver disease, unspecified (principal); K74.60 Unspecified cirrhosis of liver; E80.6 Other disorders of bilirubin metabolism; K80.50 Calculus of bile duct without cholangitis or cholecystitis without obstruction
CPT/HCPCS: 36415; 80053; 80061; 80074; 82248; 82306; 82390; 82525; 82728; 82784; 82977; 83540; 83550; 84165; 84443; 85610; 86038; 86140; 86225; 86235; 86301; 86334; 86703; 86706

== ENCOUNTER 2024-12-11 12:28 | Day surgery (SDC) | payer SELFPAY ==
[2024-12-11] VITALS (7 sets, daily range): BP systolic 99–111; BP diastolic 73–83; PULSE 58–81; RESP 16; TEMP 36.2–36.4; O2SAT 93–98; BMI 29.7
--- NOTE | 2024-12-11 12:49 | EKG12_ITS ---
Test Reason : PRE OP Blood Pressure : */* mmHG Vent. Rate : 52 BPM Atrial Rate : 52 BPM P-R Int : 210 ms QRS Dur : 110 ms QT Int : 424 ms P-R-T Axes : 31 -35 19 degrees QTcB Int : 394 ms Sinus bradycardia with 1st degree A-V block Left axis deviation Incomplete right bundle branch block Abnormal ECG When compared with ECG of 05-Sep-2024 11:11, MN interval has increased QT has shortened Confirmed by KHAI CEVALLOS, LD ([id number]), digital editor BROOKLYN LYNNE ([id number]) on 12/14/2024 1:43:36 PM Referred By: Shira Arias Confirmed By: LD RIDLEY MD
--- NOTE | 2024-12-11 12:50 | PCM.HP.STD ---
HPI - General General Date of Admission: 12/11/24 Date of Service: 12/11/24 Chief Complaint: stent removal HPI Narrative DIANE CONNORS, is a 39 M who presents for biliary stent removal. [facility] inpatient 12.6.24-12..24- Choledocholithiasis with severe jaundice, small gall stone removed from bile duct. MRCP only found cholelithiasis and a biliary stent in place. Pt was referred to general surgery for poss. cholecystectomy. Pt states he is well since the hospital visit. Is not having any abdominal pain, loss of appetite, fatigue or changes in bowels. [facility] Medical History Overweight (BMI 25.0-29.9) No pertinent past medical history Home Medications ?Medication ?Instructions ?Recorded ?Last Taken ?Type NK 09/04/24 Unknown History Allergy/AdvReac Type Severity Reaction Status Date / Time No Known Allergies Allergy Verified 12/09/24 10:18 Surgical History History of ERCP Social History Smoking Status: Never smoker alcohol intake: never ROS Constitutional Constitutional: Denies fatigue, fever(s), poor appetite, weight gain or weight loss Gastrointestinal Gastrointestinal: Denies belching, bloating, change in bowel habits, change in stool character, chewing difficulty, coffee ground emesis, constipation, cramping, diarrhea, dyspepsia, dysphagia, early satiety, excessive flatus, fecal incontinence, heartburn, hematemesis, hematochezia, hemorrhoids, loose stools, melena, nausea, odynophagia, rectal bleeding, tenesmus, vomiting or weight changes Physical Exam Const alert, oriented x3, no apparent distress and healthy appearing General Appearance: cooperative GI normal to inspection, nondistended, normoactive bowel sounds, soft to palpation, non-tender and non-distended Percussion: normal to percussion Rectal Exam: deferred Assessment & Plan Assessment/Plan (1) Hyperbilirubinemia: (2) Cholelithiases: (3) Jaundice: PLAN: Assessment and Plan Assessment and Plan (1) Hyperbilirubinemia: Status: Acute Plan: Patient was seen as follow-up after hospital discharge about 5 days ago. Labs, imaging including MRCP, CT abdomen and ERCP reviewed. Discussed with Dr. Babin and imagings reviewed. MRCP shows diffuse intra and extrahepatic biliary ductal dilatation with gallstones. It does not show a specific stricture or mass or cause for obstructive jaundice. ERCP was done on 09/05 was found small stone but was significant finding. CA 19-9 is high 137 which is very significant in view and evaluate greater than 100 units/mL suspicious of presence of cancer. Patient denies personal or family history of autoimmune disease including PSC, PBC, UC, CD, celiac disease autoimmune disease related to pancreas, thyroid or pituitary gland. At this point, patient needs referral to tertiary care center for ERCP with with intraluminal ultrasound through CBD/pancreatic duct or stomach to rule out any mass or stricture or cause for high bilirubin. Repeat CA 19-9. Labs ordered. CT abdomen pelvis triple phage ordered. Liver biopsy also ordered. Follow-up in 1 month. (2) Drug-induced liver injury: Status: Acute Plan: Predominant increase in mainly indirect hyperbilirubinemia with mild elevation of transaminase alkaline phosphatase. Transaminases alkaline phosphatase and total bilirubin/total bilirubin are improving. Mainly caused by supplement. Patient stated he was taking artichoke, sunflower, lecithin, 1 pill each 2 times daily for about 3 weeks. Was also taking milk thistle He was taking in order to dissolve the gallstones. (3) Choledocholithiasis: Status: Acute Plan: This was accomplished by ERCP. Patient also had multiple gallstones gallbladder and will need elective cholecystectomy probably after total bilirubin gets normal/near normal Small stone in in CBD does not explain diffuse dilatation of intra or extrahepatic bili ductal Autoimmune markers were negative. The IgG subclass ERCP on 09/08/2020 Impressions : - Choledocholithiasis was found. Complete removal was accomplished by biliary sphincterotomy and balloon extraction. - A biliary sphincterotomy was performed. - The biliary tree was swept. - One temporary stent was placed into the common bile duct.
--- NOTE | 2024-12-11 12:59 | PCM.PRE.AN2 ---
ASA Classification* ASA Classification ASA Classification: 2 Assessment & Plan Anesthesia* Anesthesia Assessment Anesthesia Assessment: Discussed sedation and/or anesthesia options, risks, benefits, and alternatives with patient/parents/legal guardian/POA. Questions invited. The patient/parents/legal guardian/POA seems to understand and agrees to proceed with anesthesia plan. Reviewed the physical assessment, medical history, allergy history and patient home medications list prior to surgery/procedure/anesthetic and documented any changes. Performed airway and anesthesia risk assessments. Anesthesia Type Anesthesia Type: General Anesthesia Focused Assessment* Airway Assessment Mouth opens: >3 cm Mallampati Score: II Focused Labs Anesthesia Preop lab: CBC WBC 6.8 K/mm3 (4.4-11.0) 09/06/24 07:15 09/06/24 RBC 4.35 M/mm3 (4.6-6.2) L 09/06/24 07:15 09/06/24 Hgb 13.2 g/dL (13.0-16.5) 09/06/24 07:15 09/06/24 Hct 38.6 % (40-54) L 09/06/24 07:15 09/06/24 Plt Count 291 K/mm3 (150-450) 09/06/24 07:15 09/06/24 CHEMISTRY Potassium 4.0 mmol/L (3.5-5.1) 09/11/24 08:48 09/11/24 Sodium 137 mmol/L (136-145) 09/11/24 08:48 09/11/24 Magnesium 2.1 mg/dL (1.6-2.6) 09/06/24 07:15 09/06/24 Phosphorus 3.2 mg/dL (2.5-4.9) 09/06/24 07:15 09/06/24 BUN 17 mg/dL (7-18) 09/11/24 08:48 09/11/24 Creatinine 1.22 mg/dL (0.70-1.30) 09/11/24 08:48 09/11/24 Glucose 112 mg/dL (74-106) H 09/11/24 08:48 09/11/24 TSH 0.918 uIU/mL (0.358-3.740) 09/11/24 08:48 09/11/24 COAG PT 12.3 SECONDS (11.7-14.9) 09/11/24 08:48 09/11/24 Pre-Assessment Diagnosis/Proposed Procedure Planned Operative Procedure(s): ERCP 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 When Was Last Pacemaker Check QUESTION #4 FULL TEXT: You/Your Family Experience fever (hyperthermia) with Anesthesia Last Oral Intake Last Oral intake: Last Oral Intake NPO since Meds taken in AM with sips of water? 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 Female No 12/09/24 10:19 HX of Motion Sickness No 12/09/24 10:19 HX of N/V After Surgery No 12/09/24 10:19 Non-Smoker Yes 12/09/24 10:19 Duration of Surgery greater No 12/09/24 10:19 than 60 minutes Number of Risk Factors 1 12/09/24 10:19 PONV Score Low Risk 12/09/24 10:19 Height & Weight Height & Weight: Anesthesia: Height & Weight Height 5 ft 10 in 09/11/24 08:02 Respiratory Assessment Respiratory Assessment - director of leadership development: Respiratory Tract Infection Hx - director of leadership development Hx Respiratory Tract Infection No 12/09/24 10:19 STOP Sleep Apnea STOP Sleep Apnea - director of leadership development: STOP Sleep Apnea - director of leadership development Hx Hypertension No 12/09/24 10:19 Hx Sleep Apnea No 12/09/24 10:19 CPAP BIPAP Do you snore loudly (louder No 12/09/24 10:19 than talking or can be heard Do you often feel tired/ No 12/09/24 10:19 fatigued/ sleepy during daytime? Has anyone observed you stop No 12/09/24 10:19 breathing during sleep? STOP Results Negative 12/09/24 10:19 QUESTION #5 FULL TEXT : Do you snore loudly (louder than talking or can be heard through closed doors)? 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 Specify any problems Hx of Preganancy in last 3 N/A 12/09/24 10:19 Months Nurse Filling Out Transfusion NBUCHER 12/09/24 10:19 & Questions: Date: 12/09/24 12/09/24 10:19 Time: 10:19 12/09/24 10:19 Patient unable to answer at this time (ie. confused, unrespo /Reproduction History /Reproductive History - director of leadership development: /Reproductive Hx- director of leadership development Hx Now No 12/09/24 10:19 Gestational Age (in weeks): EDC: Hx Hx Para Hx Section SAB No 12/09/24 10:19 PFSH Medical History Overweight (BMI 25.0-29.9) No pertinent past medical history Home Medications ?Medication ?Instructions ?Recorded ?Last Taken ?Type NK 09/04/24 Unknown History Allergy/AdvReac Type Severity Reaction Status Date / Time No Known Allergies Allergy Verified 12/09/24 10:18 Surgical History History of ERCP Social History Smoking Status: Never smoker alcohol intake: never Review of Systems (Anesthesia) ROS Narrative System reviewed and no additional complaints, except as documented.
--- NOTE | 2024-12-11 13:30 | FLU_PTH ---
PATIENT: DIANE CONNORS LOC: EN U#:[id number] AGE/SX: 39/M ROOM: RE12/11/[address]: Dr. Denys Babin DO : 1985 BED: DIS: 12/11/2024 SPEC #: [id number] RECD: 12/14/24 09:16 STATUS: LYNDA DWAYNE #: [id number] NANDA: 12/11/24 13:[address]: Denys Babin DEPT: CYTOLOGY RECD BY: Adolfo Colvin ENTERED: 12/14/24 09:17 SP TYPE: Fluid OTHR DR: Shira Arias, LABOR DELIVERY SPECIALIST-C Tissues: A - Biliary tract, NOS Procedures: Special Stain Group II Surgery Specimen Level IV Cytospin Fluid HEADER OPERATION: ERCP, stent removal, balloon dilation PRE-OP DIAGNOSIS: Hyperbilirubinemia, stent removal TISSUE SUBMITTED: A- Biliary stent for cytology DIAGNOSIS CYTOLOGY Biliary stent, cytology:Small fragment of benign ductal epitheliumBora jerry MD, 12/16/2024 CYTOLOGY STUDY Slides are reviewed. CYTOLOGY GROSS A. Received is a blue stent measuring 20cm labeled with the patient's name and and designated per the requisition as Biliary stent. Submitted for cytology. Mr 12/14/2024 CPT: 66490 , TC:4
--- NOTE | 2024-12-11 13:51 | RAD_ITS ---
PROCEDURE: ERCP BILIARY/PANCREAS REASON FOR EXAM: ERCP TECHNIQUE: An ERCP was performed by the pecan huller. Fluoroscopic services were provided. COMPARISON: None. FINDINGS: A stent is seen on the original images. Following this, there is cannulation of the common bile duct. Contrast was injected. No filling defect is seen. RAD/ERCP Biliary/Pancreas IMPRESSION: Biliary stent removal. Reading Location: [facility]
--- NOTE | 2024-12-11 14:19 | OP.ERCP_ITS ---
Patient Name: Jp Beltran Procedure Date: 12/11/2024 1:30 PM Date of : 1985 Age: 39 Procedure: ERCP Indications: Bile duct stone(s) Providers: Denys Babin DO Referring MD: Shira Arias Medicines: Monitored Anesthesia Care Patient Profile: This is a 39 year old male. Refer to note in patient chart for documentation of history and physical. Patient has symptoms of acute right upper quadrant abdominal pain, chronic right upper quadrant abdominal pain and acute jaundice. Complications: No immediate complications. Procedure: Pre-Anesthesia Assessment: - Prior to the procedure, a History and Physical was performed, and patient medications and allergies were reviewed. The patient is competent. The risks and benefits of the procedure and the sedation options and risks were discussed with the patient. All questions were answered and informed consent was obtained. Patient identification and proposed procedure were verified by the nurse in the pre-procedure area. Mental Status Examination: alert and oriented. Airway Examination: normal oropharyngeal airway and neck mobility. Respiratory Examination: clear to auscultation. CV Examination: normal. Prophylactic Antibiotics: The patient does not require prophylactic antibiotics. Prior Anticoagulants: The patient has taken no anticoagulant or antiplatelet agents. ASA Grade Assessment: II - A patient with mild systemic disease. After reviewing the risks and benefits, the patient was deemed in satisfactory condition to undergo the procedure. The anesthesia plan was to use monitored anesthesia care (MAC). Immediately prior to administration of medications, the patient was re-assessed for adequacy to receive sedatives. The heart rate, respiratory rate, oxygen saturations, blood pressure, adequacy of pulmonary ventilation, and response to care were monitored throughout the procedure. The physical status of the patient was re-assessed after the procedure. After obtaining informed consent, the scope was passed under direct vision. Throughout the procedure, the patient's blood pressure, pulse, and oxygen saturations were monitored continuously. The Duodenoscope was introduced through the mouth, and advanced to the duodenum and used to inject contrast into the bile duct. The ERCP was accomplished without difficulty. The patient tolerated the procedure well. Scope In: 1:51:52 PM Scope Out: 2:07:01 PM Total Procedure Duration Time 0 hours 15 minutes 9 seconds Findings: The brands editor film was normal. The esophagus was successfully intubated under direct vision. The scope was advanced to a normal major papilla in the descending duodenum without detailed examination of the pharynx, larynx and associated structures, and upper GI tract. The upper GI tract was grossly normal. A long 0.025 inch Jagwire was passed into the biliary tree. The short-nosed traction sphincterotome was passed over the guidewire and the bile duct was then deeply cannulated. Contrast was injected. I personally interpreted the bile duct images. There was brisk flow of contrast through the ducts. Image quality was adequate. Contrast extended to the main bile duct. Contrast extended to the cystic duct. Contrast extended to the bifurcation. Contrast extended to the hepatic ducts. Contrast extended to the entire biliary tree. Opacification of the entire biliary tree except for the gallbladder, common bile duct, cystic duct, gallbladder, common hepatic duct, hepatic duct bifurcation, left and right hepatic ducts with secondary or tertiary branches of the intrahepatic ducts (Bismuth IV), left and right hepatic ducts and all intrahepatic branches and entire biliary tree was successful. The maximum diameter of the ducts was 9 mm. The lower third of the main bile duct, common bile duct, cystic duct, left main hepatic duct and left intrahepatic branches contained multiple stones, the largest of which was 6 mm in diameter. The entire biliary tree except for the cystic duct and gallbladder were diffusely dilated, with a stone causing an obstruction. The largest diameter was 10 mm. A 5 mm biliary sphincterotomy was made with a traction (standard) sphincterotome using ERBE electrocautery. There was no post-sphincterotomy bleeding. The biliary tree was swept with a 12 mm balloon starting at the upper third of the main bile duct, middle third of the main bile duct, lower third of the main duct, bifurcation, left intrahepatic duct(s), left main hepatic duct and right main hepatic duct. Sludge was swept from the duct. All stones were removed. One stent was removed from the biliary tree using a snare and sent for cytology. The stent was found to be occluded via the water column test. Impression: - The biliary system were dilated, with a stone causing an obstruction. - Choledocholithiasis was found. Complete removal was accomplished by biliary sphincterotomy and balloon extraction. - A biliary sphincterotomy was performed. - The biliary tree was swept. - One stent was removed from the biliary tree. Recommendation: Cholecystectomy Procedure Code(s): --- Professional --- 00681, Endoscopic retrograde cholangiopancreatography (ERCP); with removal of foreign body(s) or stent(s) from biliary/pancreatic duct(s) 80633, Endoscopic retrograde cholangiopancreatography (ERCP); with removal of calculi/debris from biliary/pancreatic duct(s) 10643, Endoscopic retrograde cholangiopancreatography (ERCP); with sphincterotomy/papillotomy 06647, 26, Endoscopic catheterization of the biliary ductal system, radiological supervision and interpretation CPT copyright 2021 [employer]. All rights reserved. The codes documented in this report are preliminary and upon government auditor review may be revised to meet current compliance requirements. Denys Babin DO 12/11/2024 2:18:31 PM This report has been signed electronically. Number of Addenda: 0 Note Initiated On: 12/11/2024 1:30 PM
--- NOTE | 2024-12-11 14:19 | OP.CCLET_ITS ---
12/11/2024 Shira Arias Re : ERCP procedure for Jp Beltran Dear [place] This procedure was performed on Wednesday, December 11, 2024. My impressions and recommendations are as follows: Impressions : - The biliary system were dilated, with a stone causing an obstruction. - Choledocholithiasis was found. Complete removal was accomplished by biliary sphincterotomy and balloon extraction. - A biliary sphincterotomy was performed. - The biliary tree was swept. - One stent was removed from the biliary tree. Recommendations : Cholecystectomy My findings are described in the full procedure note, which is enclosed. If I can be of further assistance, please feel free to contact me at . Sincerely, Denys Babin DO 12/11/2024 2:18:31 PM This report has been signed electronically.
--- NOTE | 2024-12-11 14:26 | PCM.POST.ANE ---
Anesthesia: Postop Eval I Current Vital Signs Temperature: 97.2 F Pulse Rate: 81 Blood Pressure: 103/80 Respiratory Rate: 16 Pulse Ox: 95 Oxygen Delivery Method: Room Air Assessment Airway patent: Yes Spontaneous unlabored respirations: Yes Mental status: Asleep nausea: No Vomiting: No Anesthesia Complication: No Fluid Hydration Crystalloid volume administer (ml): 700 Total IV fluid infused: 700 Progress Note Anesthesia document: Postop Eval 1 completed: Yes
--- NOTE | 2024-12-11 15:20 | PCM.POSTANE2 ---
Anesthesia Postop Eval I Sum Postop Eval Completion status Anesthesia document: Postop Eval 1 completed: Yes Anesthesia Postop Eval I Summary Anesthesia Postop Eval I Summary: Anesthesia Postop Eval I: Assessment Summary Airway patent Yes 12/11/24 14:27 [email or web address] Spontaneous unlabored Yes 12/11/24 14:27 [email or web address] respirations Mental status Asleep 12/11/24 14:27 [email or web address] nausea No 12/11/24 14:27 [email or web address] Vomiting No 12/11/24 14:27 [email or web address] Anesthesia Postop Eval I: Fluid Summary Crystalloid volume administer 700 12/11/24 14:27 [email or web address] (ml) Colloids volume administered ( ml) Blood Product volume administered (ml) Total IV fluid infused 700 12/11/24 14:27 [email or web address] Anesthesia Postop Eval I: Summary Notes Anesthesia Complication No 12/11/24 14:27 [email or web address] Anesthesia Complication Comment: Post-operative progress note Anesthesia: Postop Eval II Evaluation Mental status: Awake Pain Level: 0 nausea: No Vomiting: No
== END 2024-12-11 16:10 | disposition home or self-care (01) ==
LOC: EN 12:34 → AC 12:39
PROVIDERS: PCP Nurse Practitioner Family; Referring Provider Nurse Practitioner Family; Visit Provider Internal Medicine Gastroenterology
PROC: (CPT 43260; principal; 2024-12-11 13:10)
DX: K80.51 Calculus of bile duct without cholangitis or cholecystitis with obstruction (principal); E80.7 Disorder of bilirubin metabolism, unspecified; K71.9 Toxic liver disease, unspecified; T50.995A Adverse effect of other drugs, medicaments and biological substances, initial encounter
CPT/HCPCS: 43262; 43264; 43275; 74330; 76000; 88108; 88305; 88313; 93005; J2405

== ENCOUNTER 2024-12-14 10:14 | Inpatient (IN) | payer SELFPAY ==
[2024-12-14] VITALS (8 sets, daily range): BP systolic 130–143; BP diastolic 83–98; PULSE 88–118; RESP 16–17; TEMP 36.4–37.6; O2SAT 93–98; BMI 29.4
--- NOTE | 2024-12-14 10:38 | EX.ED.DYSGE1 ---
HPI History of Present Illness Chief Complaint: [facility] Medical History Overweight (BMI 25.0-29.9) No pertinent past medical history Home Medications ?Medication ?Instructions ?Recorded ?Last Taken ?Type NK 09/04/24 Unknown History Allergy/AdvReac Type Severity Reaction Status Date / Time No Known Allergies Allergy Verified 12/14/24 10:16 Surgical History History of ERCP Social History Smoking Status: Never smoker alcohol intake: never EXAM Physical Exam Const Vital Signs: 12/14/24 10:14 12/14/24 11:02 12/14/24 12:23 Temperature 97.5 F L 98.2 F Temperature Source Temporal Oral Pulse Rate 90 Respiratory Rate 16 Respiratory Effort Normal Blood Pressure 143/95 H Blood Pressure Mean 111 Pulse Ox 98 Oxygen Delivery Method Room Air 12/14/24 14:00 Temperature Temperature Source Pulse Rate 88 Respiratory Rate 17 Respiratory Effort Blood Pressure 138/84 H Blood Pressure Mean 102 Pulse Ox 94 Oxygen Delivery Method Room Air MDM MDM MDM Narrative Medical decision making narrative: HISTORY OF PRESENT ILLNESS: 39-year-old male presents with fever and chills. Notes he had an ERCP to remove a stent and gallstone 2 days ago. Notes fever and chills over the weekend. Denies cough. Denies urinary complaints. Denies abdominal pain. Notes symptoms are better today however want to make sure he did not have any postop complications REVIEW OF SYSTEMS: Pertinent positives: Fever/chills Pertinent negatives: Abdominal pain, cough PHYSICAL EXAM: Nursing triage notes reviewed, Vital signs reviewed Constitutional: please see mdm HENT: MMM, no scleral icterus Eyes: Pupils equal round and reactive to light, Extraocular muscles intact Neck: No stridor, no JVD, full neck ROM Lungs: Clear to auscultation, No wheezing or rales. No increased work of breathing, no conversational dyspnea, no accessory muscle use, no nasal flaring. No respiratory distress noted Heart: Regular rate and rhythm, No murmurs, No rubs and No gallops, 2+ distal pulses (radial, femoral, posterior tibial) in all extremities Abdomen: [] Rigidity, rebound or guarding, no obvious peritoneal signs, no palpable pulsatile abdominal masses, no auscultated abdominal bruit : No CVAT Extremities: No edema Neuro: No new focal neurological deficits, cranial nerves II through XII intact, 5/5 strength in all present extremities. Intact sensation to light touch in all present extremities, 2+ reflexes bilateral patella tendons. Skin: No rash or lesions noted, no jaundice MEDICAL DECISION MAKING: Chief Complaint: Fevers chills External records reviewed: Reviewed prior GI notes Factors affecting care: Choledocholithiasis Social determinants of health: none History obtained from others: the patient's Consults: Emergency Physician (Dr. Babin), internal medicine (Dr. Arciniega) MDM Narrative: The patient was initially hemodynamically stable, afebrile and nontoxic-appearing. Abdominal exam benign. I considered the following differential diagnosis: Postop infection I obtained a broad lab and imaging workup to further elucidate etiology the patient's complaints. ALL IMAGES (IF OBTAINED) HAVE BEEN PERSONALLY REVIEWED AND INTERPRETED BY MYSELF. CT scan of the abdomen/pelvis shows no evidence of obvious intra-abdominal fluid collection but shows mild CBC leukocytosis suggestive of systemic inflammation, no anemia or thrombocytopenia noted BMP without evidence of significant electrolyte abnormalities, no anion gap, no acute kidney injury. LFTs with marked elevation from baseline Lipase is wnl indicating no pancreatic inflammation. Urinalysis with signs of inflammation but no definitive sign of UTI I have personally reviewed the patient's chest x-ray. Chest x-ray is remarkable for left lower lobe infiltrate The synthesis of the patient's history, physical exam, labs images suggest concern for reoccurring hepatobiliary production. Discussed with the career and transition teacher (Dr. Babin) recommended admission with broad-spectrum antibiotics for ERCP and possible stent placement. Saw the patient broad-spectrum antibiotics given white count, fever and concern for infectious cholestasis. Discussed with hospitalist agreed admit the patient to [facility]. The patient and/or family, caregivers express understanding. The patient and/or family, caregivers agrees with the plan. Shared decision making: I will have a discussion with the patient and or visitors regarding risk/benefits of further testing or admission. They will be made aware of of the risk/benefits inherent in this decision they will be given the opportunity to voice understanding. Total critical care time today provided was at least 0 minutes. This excludes separately billable procedures. Critical care time (if documented) is secondary to the patient having high probability of clinically significant/life threatening deterioration in the patient's condition which required my urgent intervention. Impression: 1. Fever 2. Status post ERCP 3. Leukocytosis 4. Elevated liver enzymes [facility] This note was generated with [employer] dictation software. It may contain incorrect words, spelling, and punctuation that were not noted in review of the chart prior to signing. Lab Data Labs: Laboratory Results - last 24 hr 12/14/24 12/14/24 11:00 12:43 WBC 14.0 H RBC 5.29 Hgb 15.5 Hct 46.1 MCV 87.1 MCH 29.3 MCHC 33.6 RDW Std Deviation 40.8 RDW Coeff of Joanne 12.8 Plt Count 156 MPV 9.4 Immature Gran % (Auto) 0.900 Neut % (Auto) 90.5 H Lymph % (Auto) 3.2 L Baxter % (Auto) 4.7 Eos % (Auto) 0.1 Baso % (Auto) 0.6 Absolute Neuts (auto) 12.7 H Absolute Lymphs (auto) 0.45 L Nucleated RBC % 0 Differential Comment COMMENT Sodium 138 Potassium 3.7 Chloride 103 Carbon Dioxide 25.7 Anion Gap 10 BUN 12 Creatinine 1.01 Estim Creat Clear Calc 110.26 Est GFR (MDRD) Non-Af 96 BUN/Creatinine Ratio 11.9 Glucose 123 H Lactic Acid 1.1 Calcium 9.5 Total Bilirubin 4.43 H Direct Bilirubin 3.43 H AST 124 H ALT 354 H Alkaline Phosphatase 149 H Total Protein 6.6 Albumin 3.7 Globulin 2.9 Lipase 26 Urine Color Yellow Urine Clarity Clear Urine pH 7.0 Ur Specific [place] 1.005 Urine Protein 30 H Urine Glucose (UA) Normal Urine Ketones Negative Urine Occult Blood 10 H Urine Nitrite Negative Urine Bilirubin 3 H Urine Urobilinogen 1 H Ur Leukocyte Esterase 25 H Urine RBC 0-5 SEEN Urine WBC 0-5 SEEN Ur Squamous Epith Cells 0 SEEN Urine Bacteria 2+ Urine Mucus 1+ Radiography Diagnostic Testing: Clinical Impression(s) from Imaging Studies Abdomen/Pelvis CT 12/14/24 11:10 IMPRESSION: Mild degree of central intrahepatic biliary ductal dilatation and mild dilatation of the proximal portion of the common bile duct although it decreases in size acetabular is the head of the pancreas. Reading Location: [facility] Chest X-Ray 12/14/24 12:19 IMPRESSION: 1. Mild left basilar airspace disease favorable for atelectasis/scarring however this is not definite in the absence of prior exams to confirm stability. Correlate for mild pneumonia. 2. Additional description as above. Reading Location: [id number] Discharge Plan Triage Chief Complaint: Fever ED Provider: Petar Barrera Dx/Rx/DC Orders Primary Care Provider: Shira Arias NP
--- NOTE | 2024-12-14 11:10 | CT_ITS ---
PROCEDURE: ABDOMEN/PELVIS W IV CONT ONLY 12/14/2024 REASON FOR EXAM: FEVER, STATUS POST RECENT ERCP, R/O POSTOP INFXN TECHNIQUE: Abdomen CT without and with intravenous contrast. Coronal and Sagittal reconstruction series were provided. PATIENT PREPARATION: Per protocol ORAL CONTRAST TYPE: None. CONTRAST: Isovue-300 VOLUME: 100mL Gauge IV One or more dose reduction techniques were used (e.g., Automated exposure control, adjustment of the mA and/or kV according to patient size, use of iterative reconstruction technique. RADIATION DOSE SUMMARY: CTDlvol: 13.3 mGy DLP: 787 mGycm COMPARISON: None. COMPARISON: None. FINDINGS: Lung bases: Mild degree of increased markings at the lung bases suggestive of bibasilar atelectasis. Liver: Central intrahepatic biliary ductal dilatation. Mild dilatation of the proximal common bile duct. It tapers to normal size in the head of the pancreas. Gallbladder: Questionable tiny gallstones. Spleen: Normal size. Pancreas: Normal size without evidence of mass surrounding inflammation or ductal dilation. Adrenals: Unremarkable Kidneys: Unremarkable Bladder: Unremarkable. The prostate is not enlarged. Central prostatic calcification is seen. Small umbilical hernia containing fat. Small left inguinal hernia containing fat. Bowel: Colonic diverticulosis without diverticulitis. Appendix: The appendix is not identified. There is no inflammatory process identified in the right lower quadrant to suggest appendicitis. Lymph nodes: Unremarkable Vasculature: Unremarkable Peritoneum / Retroperitoneum: Bones: Disc space narrowing at the L5-S1 level. CT/Abdomen/Pelvis W IV Cont ONLY IMPRESSION: Mild degree of central intrahepatic biliary ductal dilatation and mild dilatati on of the proximal portion of the common bile duct although it decreases in size acetabular is the head of the pancreas. Reading Location: [place] [id number]
[2024-12-14 11:16] LABS: Absolute Lymphocyte Count 0.45 X10^3/uL (0.83-4.51); Absolute Neutrophil Count 12.7 X10^3/uL (2.0-7.7); Basophil# 0.08 X10^3/uL; Basophil% 0.6 % (0-1); Eosinophil# 0.01 X10^3/uL; Eosinophils% 0.1 % (0-5); Hematocrit 46.1 % (40-54); Hemoglobin 15.5 g/dL (13.0-16.5); Lymphocyte # 0.45 X10^3/ul (0.83-4.51); Lymphocyte % 3.2 % (19-41); Mean Corp Hgb Conc 33.6 g/dL (32-36); Mean Corpuscular Hgb 29.3 pg (27.0-32.0); Mean Corpuscular Volume 87.1 fL (80-94); Mean Platelet Vol. 9.4 fl (6.2-12.0); Monocyte# 0.66 X10^3/uL; Monocyte% 4.7 % (0-10); NRBC Flagged by Analyzer 0 % (0-5); Neutrophil # 12.68 X10^3/uL (2.7-7.7); Neutrophil % 90.5 % (47-70); POSITIVE DIFFERENTIAL YES; POSITIVE MORPHOLOGY YES; Platelet Count 156 K/mm3 (150-450); RBC Distribution Width CV 12.8 % (11.6-14.6); RBC Distribution Width SD 40.8 fl (35.1-43.9); Red Blood Count 5.29 M/mm3 (4.6-6.2)
[2024-12-14 11:18] LABS: Differential Indicated SCAN CRITERIA MET
[2024-12-14 11:51] LABS: Lactic Acid 1.1 mmol/L (0.0-2.0)
[2024-12-14 11:55] LABS: AST(SGOT) 124 U/L (<=37); Alanine Aminotransfer ALT/SGPT 354 U/L (<=46); Albumin, Serum 3.7 g/dL (3.5-5.0); Alkaline Phosphatase 149 U/L (40-129); Anion Gap 10 (5-15); BUN 12 mg/dL (4-19); BUN/Creat Ratio 11.9 RATIO (10-20); Bilirubin, Direct 3.43 mg/dL (0.00-0.30); Calcium,Total 9.5 mg/dL (7.6-11.0); Carbon Dioxide 25.7 mmol/L (21.0-32.0); Chloride 103 mmol/L (98-108); Creatinine, Serum 1.01 mg/dL (0.70-1.20); EST Glomerular Filtration Rate 96 (>60); Estimated Creatinine Clearance 110.26 ml/min (50-250); Globulin 2.9 g/dL (2.2-4.2); Glucose 123 mg/dL (70-99); Lipase 26 U/L (13-75); Potassium 3.7 mmol/L (3.3-5.1); Protein, Total 6.6 g/dL (5.9-8.4); Sodium Level 138 mmol/L (133-145); Total Bilirubin 4.43 mg/dL (0.00-1.30)
--- NOTE | 2024-12-14 12:19 | RAD_ITS ---
PROCEDURE: CHEST PA AND LATERAL (RADCXR), 12/14/2024 REASON FOR EXAM: FEVER TECHNIQUE: PA and lateral views of the chest were obtained. COMPARISON: None FINDINGS: Heart: Unremarkable. Mediastinum: Unremarkable. Lungs/pleura: Mild streaky/linear left basilar airspace disease. No effusion or visible pneumothorax. Bones: Unremarkable. Lines and support devices: None. RAD/Chest PA and Lateral IMPRESSION: 1. Mild left basilar airspace disease favorable for atelectasis/scarring howeve r this is not definite in the absence of prior exams to confirm stability. Correlate for mild pneumonia. 2. Additional description as above. Reading Location: [id number]
[2024-12-14 12:46] LABS: Squamous Epithelial Cells - UA 0 SEEN /hpf (0-5)
[2024-12-14 12:49] LABS: Color, Urine Yellow (Yellow); Glucose, Dipstick Normal (Normal); Ketone-Dipstick Negative (Negative); Leukocyte Esterase-Dipstick 25 /ul (Negative); Nitrite-Dipstick Negative (Negative); Occult Blood-Urine 10 /ul (Negative); Protein-Dipstick 30 mg/dl (Negative); Specific Gravity, Urine 1.005 (1.002-1.030); Urine Clarity Clear (Clear); Urine Urobilinogen 1 mg/dl (Normal)
[2024-12-14 12:55] LABS: Urine Bilirubin Dipstick 3 mg/dL (Negative)
[2024-12-14 13:02] LABS: Bacteria 2+ /hpf (None Seen); Red Blood Cells-Urine 0-5 SEEN /hpf (0-5); White Blood Cells 0-5 SEEN /hpf (0-5)
[2024-12-14 13:03] LABS: Mucous, Urine 1+ /hpf (<or=2+)
[2024-12-14] MEDS: Piperacil/Tazobactam 4.5 GM in 0.9% Normal Saline (100mL MB+) 100 ML IV (14:18)
--- NOTE | 2024-12-14 14:45 | PCM.HP.STD ---
HPI - General General Date of Admission: 12/14/24 Date of Service: 12/14/24 Chief Complaint: Fevers and chills HPI Narrative DIANE CONNORS, is a 39 M who presented to [facility] ED on 12/14/2024 with fevers and chills. Patient had an ERCP done with Dr. Babin on 12/11. ERCP showed a dilated biliary system with choledocholithiasis; had complete removal of stone along with biliary sphincterotomy. Also had a previous temporary stents removed. Notably had ERCP done back in August with temporary stent placed at that time. He was hospitalized here back in August with very elevated LFTs. Dr. Babin followed at that time and there was concern for possible drug-induced liver injury caused by supplements that he was taking at home. Patient and note that he stopped all of the supplements at that time and per outside labs in October his bilirubin and LFTs had returned to about normal. Patient tolerated recent ERCP without issue. However, the next evening he had an episode of abdominal pain that lasted for about 30 minutes and resolved on its own. He then began to have fevers and chills starting yesterday that have continued into this morning. In the ED today he was afebrile and hemodynamically stable. Labs notable for WBC count 14, T. bili 4.43, direct bili 3.43, AST 124, ALT 354, alk phos 149. CT abdomen pelvis showed a mild degree of central hepatobiliary ductal dilation and mild dilatation of the proximal portion of the common bile duct. Notably no evidence of pancreatitis and lipase normal. ED physician discussed with Dr. Babin who recommended admission for trending LFTs, possible repeat ERCP and IV antibiotics. Hospitalist was then contacted for admission. I saw the patient at bedside in the ED, was present. Patient was sitting back comfortably in bed, conversing normally, in no acute distress. He denied any abdominal pain or discomfort currently. He denied any fevers or chills since arriving to the ED. States he has not eaten or drank much over the past few days but has had no episodes of vomiting. Denies any other acute concerns at this time. [facility] Medical History Overweight (BMI 25.0-29.9) No pertinent past medical history Home Medications ?Medication ?Instructions ?Recorded ?Last Taken ?Type NK 09/04/24 Unknown History Allergy/AdvReac Type Severity Reaction Status Date / Time No Known Allergies Allergy Verified 12/14/24 10:16 Surgical History History of ERCP Social History Smoking Status: Never smoker alcohol intake: never ROS Constitutional Constitutional: Reports chills and fever(s); Denies fatigue or weakness Eyes Eyes: Denies change in vision Cardiovascular Cardiovascular: Denies chest pain Respiratory/Chest Respiratory/Chest: Denies cough, productive cough or shortness of breath at rest Gastrointestinal Gastrointestinal: Reports nausea; Denies abdominal pain, constipation, diarrhea or vomiting Vital Signs Vital Signs Vital Signs: 12/14/24 10:14 12/14/24 11:02 12/14/24 12:23 Temperature 97.5 F L 98.2 F Temperature Source Temporal Oral Pulse Rate 90 Respiratory Rate 16 Respiratory Effort Normal Blood Pressure 143/95 H Blood Pressure Mean 111 Pulse Ox 98 Oxygen Delivery Method Room Air 12/14/24 14:00 Temperature Temperature Source Pulse Rate 88 Respiratory Rate 17 Respiratory Effort Blood Pressure 138/84 H Blood Pressure Mean 102 Pulse Ox 94 Oxygen Delivery Method Room Air Weight Weight: 92.986 kg Body Mass Index (BMI) 29.4 Physical Exam Const alert, oriented x3, no apparent distress and average body habitus Constitutional Narrative: Pleasant younger male, sitting back comfortably in bed, conversing normally, in no acute distress. General Appearance: cooperative and comfortable HEENT normocephalic, head/scalp atraumatic, hearing grossly normal bilaterally, nasal mucous membranes and turbinates normal and moist oral mucous membranes Eyes PERRL, EOMs intact bilaterally and conjunctivae normal Neck full ROM Chest inspection of chest normal Resp normal respiratory effort, normal air movement, no use of accessory muscles and clear to auscultation bilaterally Cardio regular rate, regular rhythm, no murmurs and peripheral pulses 2+ throughout GI normal to inspection, nondistended, normoactive bowel sounds, soft to palpation, non-tender and non-distended Back/Spine normal ROM Extremity normal to inspection, full ROM and no pedal edema Skin no rashes or lesions noted Neuro moves all extremities and no focal motor deficits Speech: speech normal Motor Exam: strength 5/5 throughout Psych mental status grossly normal Results Lab / Micro Data 12/14/24 11:00 12/14/24 11:00 Labs: Laboratory Results - last 24 hr 12/14/24 11:00: WBC 14.0 H, RBC 5.29, Hgb 15.5, Hct 46.1, MCV 87.1, MCH 29.3, MCHC 33.6, RDW Std Deviation 40.8, RDW Coeff of Joanne 12.8, Plt Count 156, MPV 9.4, Immature Gran % (Auto) 0.900, Neut % (Auto) 90.5 H, Lymph % (Auto) 3.2 L, [place] % (Auto) 4.7, Eos % (Auto) 0.1, Baso % (Auto) 0.6, Absolute Neuts (auto) 12.7 H, Absolute Lymphs (auto) 0.45 L, Nucleated RBC % 0, Differential Comment COMMENT, Sodium 138, Potassium 3.7, Chloride 103, Carbon Dioxide 25.7, Anion Gap 10, BUN 12, Creatinine 1.01, Estim Creat Clear Calc 110.26, Est GFR (MDRD) Non-Af 96, BUN/Creatinine Ratio 11.9, Glucose 123 H, Lactic Acid 1.1, Calcium 9.5, Total Bilirubin 4.43 H, Direct Bilirubin 3.43 H, AST 124 H, ALT 354 H, Alkaline Phosphatase 149 H, Total Protein 6.6, Albumin 3.7, Globulin 2.9, Lipase 26 12/14/24 12:43: Urine Color Yellow, Urine Clarity Clear, Urine pH 7.0, Ur Specific [place] 1.005, Urine Protein 30 H, Urine Glucose (UA) Normal, Urine Ketones Negative, Urine Occult Blood 10 H, Urine Nitrite Negative, Urine Bilirubin 3 H, Urine Urobilinogen 1 H, Ur Leukocyte Esterase 25 H, Urine RBC 0-5 SEEN, Urine WBC 0-5 SEEN, Ur Squamous Epith Cells 0 SEEN, Urine Bacteria 2+, Urine Mucus 1+ Micro: Microbiology 12/14/24 12:25 Mucosa - Nose SARS-CoV-2, Influenza & RSV (PCR) - Final Imaging Radiology Impression Abdomen/Pelvis CT 12/14/24 11:10 IMPRESSION: Mild degree of central intrahepatic biliary ductal dilatation and mild dilatation of the proximal portion of the common bile duct although it decreases in size acetabular is the head of the pancreas. Reading Location: [facility] Chest X-Ray 12/14/24 12:19 IMPRESSION: 1. Mild left basilar airspace disease favorable for atelectasis/scarring however this is not definite in the absence of prior exams to confirm stability. Correlate for mild pneumonia. 2. Additional description as above. Reading Location: [id number] Assessment & Plan Assessment/Plan (1) Hyperbilirubinemia: (2) Elevation of levels of liver transaminase levels: PLAN: Plan Patient is a 39-year-old male who presented to [facility] ED on 12/14/2024 with fevers and chills after recent ERCP. 1. Reported fevers/chills with elevated transaminases after recent ERCP, recent history of choledocholithiasis and suspected history of drug-induced liver injury ? Admit under inpatient status to [facility]. GI consulted. See HPI for further details on recent GI history. In short, had ERCP done on 12/11 with choledocholithiasis removed with biliary tree swept, as well as removal of previously placed temporary stent. LFTs on 12/14 elevated and per family they had returned to about normal in October on labs from outside hospital. Cannot rule out infection, will treat with IV Zosyn for now. Lipase normal and no evidence of pancreatitis on CT, low concern for post ERCP pancreatitis. Monitor daily LFTs. N.p.o. at midnight for possible repeat ERCP tomorrow. 2. Overweight ? BMI 29 on admit. Encouraged lifestyle modifications. DVT prophylaxis: Lovenox CODE STATUS: Full code, verified Expected disposition: Home, 2 to 3 days Total clinical time spent by myself addressing the patient's medical issues, reviewing all the data, and collaborating with patient's care team: 55 minutes. Charges/Coding Visit Charges Inpatient E&M: 65796 Init Hosp L2
[2024-12-14] MEDS: Vancomycin HCl 1,500 MG in 0.9% Normal Saline (500mL Bag) 500 ML 250 MG IV (14:51)
--- NOTE | 2024-12-14 15:52 | CASEMGMT ---
Care Management Face to Face with patient for initial transition planning/care coordination assessment in the ED. 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 Patient alert and oriented. Patient's , [place], bedside. Patient willing to participate in assessment and is able to answer all questions appropriately. Admitting Diagnosis: Hyperbilirubinemia, Elevation of levels of liver transaminase levels Other diagnosis history: ERCP done with Dr. Babin on 12/11/24 showed dilated biliary system with choled ocholithiasis PCP: [facility] Specialists: Dr. Babin Preferred Pharmacy: [facility] Insurance: self pay Prescription Benefit: none Living Will/HPOA: none LNOK: , Iram, and 2 children Living Arrangements: lives with and children in a 2 story home with 2 steps to enter. Independent with all ADLs prior. Transportation: patient drives self DME: none HHC: none SNF/Rehab: none Community Resources: none Patient goals: Patient wishes to discharge home, denies need for home health care at this time. Patient denies any further needs or concerns at this time. Disposition Plan: admission to acute; RN CM/SW to follow for discharge planning needs that may arise. Amy Saini, OIL PIPELINE DISPATCHER, CAMPAIGN MARKETING MANAGER
[2024-12-14] MEDS: Piperacil/Tazobactam 3.375 GM in 0.9% Normal Saline (50mL MB+) 50 ML IV (21:03)
[2024-12-15] VITALS (13 sets, daily range): BP systolic 110–127; BP diastolic 73–94; PULSE 64–95; RESP 16–18; TEMP 36.2–37.1; O2SAT 93–98; BMI 29.3
[2024-12-15] MEDS: Piperacil/Tazobactam 3.375 GM in 0.9% Normal Saline (50mL MB+) 50 ML IV ×3 (05:38→21:37)
--- NOTE | 2024-12-15 05:55 | EKG12_ITS ---
Test Reason : AM EKG Blood Pressure : */* mmHG Vent. Rate : 90 BPM Atrial Rate : 90 BPM P-R Int : 164 ms QRS Dur : 114 ms QT Int : 366 ms P-R-T Axes : 42 -29 19 degrees QTcB Int : 447 ms Normal sinus rhythm Incomplete right bundle branch block Borderline ECG When compared with ECG of 11-Dec-2024 12:55, TX interval has decreased Vent. rate has increased by 38 bpm QT has lengthened Confirmed by KHAI CEVALLOS, LD ([id number]), editorial writer CHAVA CASEY ([id number]) on 12/15/2024 8:22:34 AM Referred By: PRIMITIVO Confirmed By: LD RIDLEY MD
[2024-12-15 07:17] LABS: Hematocrit 42.2 % (40-54); Hemoglobin 14.5 g/dL (13.0-16.5); Mean Corp Hgb Conc 34.4 g/dL (32-36); Mean Corpuscular Hgb 28.8 pg (27.0-32.0); Mean Corpuscular Volume 83.9 fL (80-94); Mean Platelet Vol. 9.8 fl (6.2-12.0); Platelet Count 163 K/mm3 (150-450); RBC Distribution Width CV 12.9 % (11.6-14.6); RBC Distribution Width SD 39.7 fl (35.1-43.9); Red Blood Count 5.03 M/mm3 (4.6-6.2); White Blood Count 10.2 K/mm3 (4.4-11.0)
--- NOTE | 2024-12-15 08:01 | PCM.PN.HOSP ---
Reason for Visit Reason for Visit: Diagnoses Other disorders of bilirubin metabolism (12/14/24) Elevation of levels of liver transaminase levels (12/14/24) Objective Data Objective Data Vital Signs: Vital Signs Temp Pulse Resp BP Pulse Ox O2 Del Method 98.8 F 95 16 120/87 H 94 Room Air 12/15/24 04:42 12/15/24 04:42 12/15/24 04:42 12/15/24 04:42 12/15/24 04:42 12/15/24 04:42 Oxygen Delivery Method Room Air Weight: 205 lb 0.478 oz Body Mass Index (BMI) 29.4 Intake & Output: Intake and Output for Last 24 Hours 12/13/24 12/14/24 12/15/24 23:59 23:59 23:59 Intake Total 870 / 1170 350 / 350 Balance 870 / 1170 350 / 350 Lab / Micro Data 12/15/24 06:46 12/15/24 06:46 Labs: Laboratory Results - last 24 hr 12/14/24 11:00: WBC 14.0 H, RBC 5.29, Hgb 15.5, Hct 46.1, MCV 87.1, MCH 29.3, MCHC 33.6, RDW Std Deviation 40.8, RDW Coeff of Joanne 12.8, Plt Count 156, MPV 9.4, Immature Gran % (Auto) 0.900, Neut % (Auto) 90.5 H, Lymph % (Auto) 3.2 L, [place] % (Auto) 4.7, Eos % (Auto) 0.1, Baso % (Auto) 0.6, Absolute Neuts (auto) 12.7 H, Absolute Lymphs (auto) 0.45 L, Nucleated RBC % 0, Differential Comment COMMENT, Sodium 138, Potassium 3.7, Chloride 103, Carbon Dioxide 25.7, Anion Gap 10, BUN 12, Creatinine 1.01, Estim Creat Clear Calc 110.26, Est GFR (MDRD) Non-Af 96, BUN/Creatinine Ratio 11.9, Glucose 123 H, Lactic Acid 1.1, Calcium 9.5, Total Bilirubin 4.43 H, Direct Bilirubin 3.43 H, AST 124 H, ALT 354 H, Alkaline Phosphatase 149 H, Total Protein 6.6, Albumin 3.7, Globulin 2.9, Lipase 26 12/14/24 12:43: Urine Color Yellow, Urine Clarity Clear, Urine pH 7.0, Ur Specific [place] 1.005, Urine Protein 30 H, Urine Glucose (UA) Normal, Urine Ketones Negative, Urine Occult Blood 10 H, Urine Nitrite Negative, Urine Bilirubin 3 H, Urine Urobilinogen 1 H, Ur Leukocyte Esterase 25 H, Urine RBC 0-5 SEEN, Urine WBC 0-5 SEEN, Ur Squamous Epith Cells 0 SEEN, Urine Bacteria 2+, Urine Mucus 1+ 12/15/24 06:46: WBC 10.2, RBC 5.03, Hgb 14.5, Hct 42.2, MCV 83.9, MCH 28.8, MCHC 34.4, RDW Std Deviation 39.7, RDW Coeff of Joanne 12.9, Plt Count 163, MPV 9.8 Micro: Microbiology 12/14/24 12:25 Blood Culture (Wb) - Anticubital Left Blood Culture - Preliminary 12/14/24 12:25 Blood Culture (Wb) - Anticubital Left Blood Culture - Preliminary 12/14/24 12:25 Mucosa - Nose SARS-CoV-2, Influenza & RSV (PCR) - Final Radiography Diagnostic Testing: Radiology Impression Abdomen/Pelvis CT 12/14/24 11:10 IMPRESSION: Mild degree of central intrahepatic biliary ductal dilatation and mild dilatation of the proximal portion of the common bile duct although it decreases in size acetabular is the head of the pancreas. [facility] 12/14/24 12:19 IMPRESSION: 1. Mild left basilar airspace disease favorable for atelectasis/scarring however this is not definite in the absence of prior exams to confirm stability. Correlate for mild pneumonia. 2. Additional description as above. Reading Location: [id number] Physical Exam Narrative Seen and examined. Patient does not have abdominal pain but was having fever and chills and jaundice. His further said in first week of October his labs showed AST ALT 33/34 his bilirubin was about 1.0 although no Documentary evidence. Currently patient is NPO. Discussed with Dr. Babin Physical exam General: Alert, Oriented x3, Cooperative HEENT: Icterus present atraumatic, PERRLA, EOMI, Normocephalic Oral: No Gingival or Mucosal Lesions/ Ulcerations Neck: Supple, No JVD, Negative Carotid Bruits Chest wall/Lungs: Air entry diminished in bilateral lung bases. No crepitation/rhonchi Cardiovascular: Regular rate, Regular Rhythm, Normal S1, Normal S2, No M/G/R Abdomen: Bowel Sounds Present, Soft, Non Tender, Non-Distended : No dysuria. No renal angle tenderness. No suprapubic tenderness. Extremities: No edema, Capillary Refill Less than 3 Seconds Skin: No rashes, No breakdown Musculoskeletal: No Tenderness to Palpation of Joints or Extremities Neurological: Cranial nerves II-XII grossly intact, DTR 2+/4. No acute focal neurological deficit. Psych/Mental Status: Flat affect. Assessment & Plan Assessment/Plan (1) Hyperbilirubinemia: (2) Elevation of levels of liver transaminase levels: PLAN: Plan Patient is a 39-year-old male who presented to [facility] ED on 12/14/2024 with fevers and chills after recent ERCP to remove the stent. Gallstone was removed on Saturday. 1. Suspected cholangitis probably aggravated by recent ERCP with choledocholithiasis: Patient is being admitted to PCU. Patient had fever on Saturday at home after ERCP on last Saturday. After admission Tmax 99.7 Fahrenheit. Currently patient on IV Zosyn. Office visit note reviewed. Patient has elevated ALT since August 2024 as per [employer]. Fluctuates between 50 to 78. Admitted with 354, improving, 227. AST also elevated. Total bilirubin 16.7 on 09/07, improved to 4.43 and today 5.85. Last ERCP on 12/11 showed biliary tree dilated with a stone causing obstruction, complete removal was accomplished by sphincterotomy and balloon extraction. 1 stent was removed from biliary tree. I talked to the in detail after discussion with Dr. Babin. I gave the option of transfer to tertiary care of consideration of repeat ERCP with endoscopic ultrasound after cholangitis gets better with IV antibiotic. Patient also needs lap arthur after control of the infection. Patient said she will make decision after talking to Dr. Babin whom I informed. 2. Overweight ? BMI 29 on admit. Encouraged lifestyle modifications. DVT prophylaxis: Lovenox CODE STATUS: Full code, verified Charges/Coding Addendum Addendum: Total time of the visit including total time spent in counseling or coordination of care, (more than 50% of the total time, spent in obtaining medical information from nurses and other ancillary care providers ,explaining to the patient about labs, imaging, diagnosis and management of active complex medical conditions), review of medical record, discussion with the and Dr. Babin, review of labs and imaging is 35 minutes. Visit Charges Inpatient E&M: 13975 Subs Hosp L3
[2024-12-15 08:37] LABS: ALB/GLOB Ratio 1.1 RATIO (0.9-2.4); AST(SGOT) 56 U/L (<=37); Alanine Aminotransfer ALT/SGPT 227 U/L (<=46); Albumin, Serum 3.4 g/dL (3.5-5.0); Alkaline Phosphatase 156 U/L (40-129); Anion Gap 13 (5-15); BUN 10 mg/dL (4-19); BUN/Creat Ratio 10.4 RATIO (10-20); Calcium,Total 9.1 mg/dL (7.6-11.0); Carbon Dioxide 21.3 mmol/L (21.0-32.0); Chloride 103 mmol/L (98-108); Creatinine, Serum 0.99 mg/dL (0.70-1.20); EST Glomerular Filtration Rate 98 (>60); Globulin 3.1 g/dL (2.2-4.2); Glucose 106 mg/dL (70-99); Potassium 3.9 mmol/L (3.3-5.1); Protein, Total 6.5 g/dL (5.9-8.4); Sodium Level 137 mmol/L (133-145); Total Bilirubin 5.85 mg/dL (0.00-1.30)
--- NOTE | 2024-12-15 15:06 | CHAPLAIN ---
Type of Pastoral Visit _x__ Initial Visit ___ Follow-up Visit ___ On-call Visit ___ General Patient Visit ___ Spiritual Assessment ___ Family Conference ___ Bereavement ___ Rapid Response ___ Code Blue ___ Other (describe below) Pastoral Care Referral From _x__ Patient ___ Family ___ Nurse ___ Physician ___ Embossing Press Operator Molded Goods ___ Correction Warden ___ Other (describe below) Sacrament/Intervention _x__ Active listening ___ Anointing ___ Sikh ___ Bereavement ___ Communion _x__ Rukhsana exploration ___ ___ Life review _x__ Prayer ___ Reconciliation ___ Sacrament of Sick ___ Supportive presence ___ Wedding ___ Other (describe below) Pastoral Comments patient is very welcoming and reports that he is doing better than previously; spouse and mother are in the room and all explain that pt will have a procedure in a few minutes; pt says that he is handling the situation well but that is worried about the kids who are 6 and 8; pt is member of a rukhsana community and acknowledges that people are praying for him; pt welcomes a prayer also from this lab head; offer of support for tomorrow as needed
--- NOTE | 2024-12-15 15:51 | PRE.ANES_ITS ---
ASA Classification* ASA Classification ASA Classification: 3 Assessment & Plan Anesthesia* Anesthesia Assessment Anesthesia Assessment: Discussed sedation and/or anesthesia options, risks, benefits, and alternatives with patient/parents/legal guardian/POA. Questions invited. The patient/parents/legal guardian/POA seems to understand and agrees to proceed with anesthesia plan. Reviewed the physical assessment, medical history, allergy history and patient home medications list prior to surgery/procedure/anesthetic and documented any changes. Performed airway and anesthesia risk assessments. Anesthesia Type Anesthesia Type: General History Source History Obtained from:: Patient and Chart Anesthesia Focused Assessment* Temperature: 98.7 F Pulse Rate: 87 Blood Pressure: 122/81 Respiratory Rate: 16 Pulse Ox: 97 Oxygen Delivery Method: Room Air Airway Assessment Mouth opens: >3 cm Mallampati Score: II Teeth Condition: Intact and Chipped/Broken (one) Neck Range of motion (ROM): Full ROM Focused Labs Anesthesia Preop lab: CBC WBC 10.2 K/mm3 (4.4-11.0) 12/15/24 06:46 12/15/24 RBC 5.03 M/mm3 (4.6-6.2) 12/15/24 06:46 12/15/24 Hgb 14.5 g/dL (13.0-16.5) 12/15/24 06:46 12/15/24 Hct 42.2 % (40-54) 12/15/24 06:46 12/15/24 Plt Count 163 K/mm3 (150-450) 12/15/24 06:46 12/15/24 CHEMISTRY Potassium 3.9 mmol/L (3.3-5.1) 12/15/24 06:46 12/15/24 Sodium 137 mmol/L (133-145) 12/15/24 06:46 12/15/24 Magnesium 2.1 mg/dL (1.6-2.6) 09/06/24 07:15 09/06/24 Phosphorus 3.2 mg/dL (2.5-4.9) 09/06/24 07:15 09/06/24 BUN 10 mg/dL (4-19) 12/15/24 06:46 12/15/24 Creatinine 0.99 mg/dL (0.70-1.20) 12/15/24 06:46 12/15/24 Glucose 106 mg/dL (70-99) H 12/15/24 06:46 12/15/24 TSH 0.918 uIU/mL (0.358-3.740) 09/11/24 08:48 08/30 12/21 COAG PT 12.3 SECONDS (11.7-14.9) 09/11/24 08:48 Pre-Assessment Diagnosis/Proposed Procedure Planned Operative Procedure(s): ERCP 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 When Was Last Pacemaker Check QUESTION #4 FULL TEXT: You/Your Family Experience fever (hyperthermia) with Anesthesia Last Oral Intake Last Oral intake: Last Oral Intake NPO since 00:01 12/15/24 14:00 Meds taken in AM with sips of water? 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 - biomedical analytical scientist: PONV - biomedical analytical scientist Female HX of Motion Sickness HX of N/V After Surgery Non-Smoker Duration of Surgery greater than 60 minutes Number of Risk Factors PONV Score Height & Weight Height & Weight: Anesthesia: Height & Weight Height 5 ft 10.08 in 12/15/24 14:00 Weight: 93 kg 12/15/24 14:00 Body Mass Index (BMI) 29.3 12/15/24 14:00 Respiratory Assessment Respiratory Assessment - biomedical analytical scientist: Respiratory Tract Infection Hx - biomedical analytical scientist Hx Respiratory Tract Infection No 12/14/24 21:38 STOP Sleep Apnea STOP Sleep Apnea - biomedical analytical scientist: STOP Sleep Apnea - biomedical analytical scientist Hx Hypertension No 12/14/24 16:44 Hx Sleep Apnea No 12/14/24 16:44 CPAP BIPAP Do you snore loudly (louder Yes 12/14/24 16:44 than talking or can be heard Do you often feel tired/ No 12/14/24 16:44 fatigued/ sleepy during daytime? Has anyone observed you stop No 12/14/24 16:44 breathing during sleep? STOP Results Negative 12/14/24 16:44 QUESTION #5 FULL TEXT : Do you snore loudly (louder than talking or can be heard through closed doors)? 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 Specify any problems Hx of Preganancy in last 3 N/A 12/14/24 16:44 Months Nurse Filling Out Transfusion [id number] 12/14/24 16:44 & Questions: Date: 12/14/24 12/14/24 16:44 Time: 16:46 12/14/24 16:44 Patient unable to answer at this time (ie. confused, unrespo /Reproduction History /Reproductive History - biomedical analytical scientist: /Reproductive Hx- biomedical analytical scientist Hx Now No 12/14/24 21:38 Gestational Age (in weeks): EDC: Hx Hx Para Hx Section SAB No 12/14/24 21:38 Active Medications Active Medications: Current Medications Generic Name Dose Route Start Last Admin Trade Name Freq PRN Reason Stop Dose Admin Enoxaparin Sodium 40 mg 12/15/24 10:00 12/15/24 09:27 Enoxaparin 40 Mg/0.4 Ml Syringe SC Not Given DAILY RIACRDO Piperacillin Sod/Tazobactam 50 mls @ 12.5 mls/hr 12/14/24 22:00 12/15/24 15:02 Sod 3.375 gm/ Sodium Chloride IV 12.5 mls/hr Q8 RICARDO Administration Sodium Chloride 100 mls @ 15 mls/hr 12/15/24 14:07 IV .Q6H40M PRN Saline Flush Sodium Chloride 100 mls @ 15 mls/hr 12/15/24 14:07 IV .Q6H40M PRN Additional IVPB Infusion Sodium Chloride 1,000 mls @ 15 mls/hr 12/15/24 15:20 IV .Q48H RICARDO Melatonin 3 mg 12/14/24 16:30 Melatonin 3 Mg Tablet PO QHS PRN PRN INSOMNIA Ondansetron HCl 4 mg 12/14/24 16:30 Ondansetron 4 Mg/2 Ml Vial IV Q8H PRN PRN NAUSEA/VOMITING Sodium Chloride 10 - 40 ml 12/15/24 14:07 0.9% Saline Lock 10 Ml Syringe IV UD PRN SALINE FLUSH PFSH Medical History Overweight (BMI 25.0-29.9) No pertinent past medical history Home Medications ?Medication ?Instructions ?Recorded ?Last Taken ?Type NK 09/04/24 Unknown History Allergy/AdvReac Type Severity Reaction Status Date / Time No Known Allergies Allergy Verified 12/14/24 10:16 Surgical History History of ERCP Social History Smoking Status: Never smoker alcohol intake: never Review of Systems (Anesthesia) ROS Narrative System reviewed and no additional complaints, except as documented. Physical Exam Const alert, oriented x3 and average body habitus Resp normal respiratory effort, normal air movement and clear to auscultation bilaterally Cardio regular rate, regular rhythm, no murmurs and diaphoretic
--- NOTE | 2024-12-15 17:34 | PCM.PN.BLA ---
Progress Note I had a long conversation with patient, patient's family who is also at the bedside regarding ERCP and need for cholecystectomy. Physical Exam Const alert, oriented x3, no apparent distress and healthy appearing General Appearance: cooperative GI normal to inspection, nondistended, normoactive bowel sounds, soft to palpation, non-tender and non-distended Percussion: normal to percussion Rectal Exam: deferred Assessment & Plan Assessment/Plan (1) Hyperbilirubinemia: (2) Elevation of levels of liver transaminase levels: PLAN: Plan Patient is a 39-year-old male who presented to [facility] ED on 12/14/2024 with fevers and chills after recent ERCP. Reported fevers/chills with elevated transaminases after recent ERCP, recent history of choledocholithiasis and suspected history of drug-induced liver injury ? He had ERCP done on 12/11 with choledocholithiasis removed with biliary tree swept, as well as removal of previously placed temporary stent. LFTs on 12/14 elevated and per family they had returned to about normal in October on labs from outside hospital. Agree with IV Zosyn for now. Lipase normal and no evidence of pancreatitis on CT, low concern for post ERCP pancreatitis. Monitor daily LFTs. N.p.o. at midnight for possible repeat ERCP today. . Visit Charges Inpatient E&M: 88373 [facility] Hosp L2
--- NOTE | 2024-12-15 17:35 | RAD_ITS ---
PROCEDURE: ERCP BILIARY/PANCREAS 12/15/2024 REASON FOR EXAM: PAIN TECHNIQUE: 12 fluoroscopic spot views during ERCP COMPARISON: 12/11/[address] 12/14/2024. FINDINGS: Fluoroscopy time 95.3 seconds Total dose 30.75 mGy On the 2nd image contrast is seen within the intra and extrahepatic biliary ducts. There is vague bubbly defects within the mid common duct, can not exclude debris or stones. Defects do not persist on later images. Intrahepatic ducts appear diffusely mildly dilated than the prior study. No stricture identified. Visualized ducts appear smooth. Contrast within the gallbladder is not seen. Common bile duct stent placed. RAD/ERCP Biliary/Pancreas IMPRESSION: Fluoroscopy during ERCP as above. Reading Location: [id number]
--- NOTE | 2024-12-15 18:13 | OP.CCLET_ITS ---
12/15/2024 Shira Arias Re : ERCP procedure for Jp Beltran Dear [place] This procedure was performed on Sunday, December 15, 2024. My impressions and recommendations are as follows: Impressions : - The entire biliary tree was dilated, with a stone causing an obstruction. - Choledocholithiasis was found. Complete removal was accomplished by biliary sphincterotomy and balloon extraction. - A biliary sphincterotomy was performed. - The biliary tree was swept. - One stent was placed into the common bile duct. Recommendations : My findings are described in the full procedure note, which is enclosed. If I can be of further assistance, please feel free to contact me at . Sincerely, Denys Babin DO 12/15/2024 6:13:06 PM This report has been signed electronically.
--- NOTE | 2024-12-15 18:13 | OP.ERCP_ITS ---
Patient Name: Jp Beltran Procedure Date: 12/15/2024 5:32 PM Date of : 1985 Age: 39 Procedure: ERCP Indications: Bile duct stone(s), Jaundice, Elevated liver enzymes Providers: Denys Babin DO Medicines: Monitored Anesthesia Care Patient Profile: This is a 39 year old male. Refer to note in patient chart for documentation of history and physical. Patient has symptoms of acute right upper quadrant abdominal pain and acute jaundice. Complications: No immediate complications. Procedure: Pre-Anesthesia Assessment: - Prior to the procedure, a History and Physical was performed, and patient medications and allergies were reviewed. The patient is competent. The risks and benefits of the procedure and the sedation options and risks were discussed with the patient. All questions were answered and informed consent was obtained. Patient identification and proposed procedure were verified by the physician in the pre-procedure area. Mental Status Examination: alert and oriented. Airway Examination: normal oropharyngeal airway and neck mobility. Respiratory Examination: clear to auscultation. CV Examination: normal. ASA Grade Assessment: II - A patient with mild systemic disease. After reviewing the risks and benefits, the patient was deemed in satisfactory condition to undergo the procedure. The anesthesia plan was to use monitored anesthesia care (MAC). Immediately prior to administration of medications, the patient was re-assessed for adequacy to receive sedatives. The heart rate, respiratory rate, oxygen saturations, blood pressure, adequacy of pulmonary ventilation, and response to care were monitored throughout the procedure. The physical status of the patient was re-assessed after the procedure. After obtaining informed consent, the scope was passed under direct vision. Throughout the procedure, the patient's blood pressure, pulse, and oxygen saturations were monitored continuously. The Duodenoscope was introduced through the mouth, and advanced to the duodenum and used to inject contrast into the bile duct. The ERCP was accomplished without difficulty. The patient tolerated the procedure well. Scope In: 5:54:13 PM Scope Out: 6:06:19 PM Total Procedure Duration Time 0 hours 12 minutes 6 seconds Findings: The lost charge card clerk film was normal. The esophagus was successfully intubated under direct vision. The scope was advanced to a normal major papilla in the descending duodenum without detailed examination of the pharynx, larynx and associated structures, and upper GI tract. The upper GI tract was grossly normal. A long 0.025 inch Jagwire was passed into the biliary tree. The short-nosed traction sphincterotome was passed over the guidewire and the bile duct was then deeply cannulated. Contrast was injected. I personally interpreted the bile duct images. There was brisk flow of contrast through the ducts. Image quality was excellent. Contrast extended to the entire biliary tree. Opacification of the entire biliary tree except for the gallbladder, entire opacified area, lower third of the main bile duct, middle third of the main bile duct, upper third of the main bile duct, main bile duct, common bile duct, cystic duct, common hepatic duct, hepatic duct bifurcation, left and right hepatic ducts with secondary or tertiary branches of the intrahepatic ducts (Bismuth IV), left and right hepatic ducts and all intrahepatic branches and entire biliary tree was successful. The maximum diameter of the ducts was 10 mm. The common bile duct and common hepatic duct contained two stones, the largest of which was 6 mm in diameter. The entire biliary tree was diffusely dilated, with a stone causing an obstruction. The largest diameter was 10 mm. A 5 mm biliary sphincterotomy was made with a braided traction (standard) sphincterotome using ERBE electrocautery. There was no post-sphincterotomy bleeding. The biliary tree was swept with a 12 mm balloon starting at the cystic duct, bifurcation and right main hepatic duct. Sludge was swept from the duct. All stones were removed. One 10 Fr by 7 cm stent with a single external flap and no internal flaps was placed 5 cm into the common bile duct. Bile flowed through the stent. The stent was in good position. Impression: - The entire biliary tree was dilated, with a stone causing an obstruction. - Choledocholithiasis was found. Complete removal was accomplished by biliary sphincterotomy and balloon extraction. - A biliary sphincterotomy was performed. - The biliary tree was swept. - One stent was placed into the common bile duct. Procedure Code(s): --- Professional --- 22702, Endoscopic retrograde cholangiopancreatography (ERCP); with placement of endoscopic stent into biliary or pancreatic duct, including pre- and post-dilation and guide wire passage, when performed, including sphincterotomy, when performed, each stent 17870, Endoscopic retrograde cholangiopancreatography (ERCP); with removal of calculi/debris from biliary/pancreatic duct(s) 50855, 26, Endoscopic catheterization of the biliary ductal system, radiological supervision and interpretation CPT copyright 2021 [employer]. All rights reserved. The codes documented in this report are preliminary and upon bark skinner review may be revised to meet current compliance requirements. Denys Babin DO 12/15/2024 6:13:06 PM This report has been signed electronically. Number of Addenda: 0 Note Initiated On: 12/15/2024 5:32 PM
--- NOTE | 2024-12-15 18:43 | PCM.POST.ANE ---
Anesthesia: Postop Eval I Current Vital Signs Temperature: 97.2 F Pulse Rate: 85 Blood Pressure: 110/89 Respiratory Rate: 16 Pulse Ox: 94 Oxygen Delivery Method: Room Air Assessment Airway patent: Yes Spontaneous unlabored respirations: Yes Mental status: Awake nausea: No Vomiting: No Anesthesia Complication: No Fluid Hydration Crystalloid volume administer (ml): 500 Total IV fluid infused: 500 Progress Note Anesthesia document: Postop Eval 1 completed: Yes
--- NOTE | 2024-12-15 18:45 | PCM.POSTANE2 ---
Anesthesia Postop Eval I Sum Postop Eval Completion status Anesthesia document: Postop Eval 1 completed: Yes Anesthesia Postop Eval I Summary Anesthesia Postop Eval I Summary: Anesthesia Postop Eval I: Assessment Summary Airway patent Yes 12/15/24 18:44 Spontaneous unlabored Yes 12/15/24 18:44 respirations Mental status Awake 12/15/24 18:44 nausea No 12/15/24 18:44 Vomiting No 12/15/24 18:44 Anesthesia Postop Eval I: Fluid Summary Crystalloid volume administer 500 12/15/24 18:44 (ml) Colloids volume administered ( ml) Blood Product volume administered (ml) Total IV fluid infused 500 12/15/24 18:44 Anesthesia Postop Eval I: Summary Notes Anesthesia Complication No 12/15/24 18:44 Anesthesia Complication Comment: Post-operative progress note Anesthesia: Postop Eval II Evaluation Mental status: Awake Pain Level: 0 nausea: No Vomiting: No Complications Anesthesia Complication: No
[2024-12-15] MEDS: 0.9% Saline Lock 10 ML Syringe IV (21:36)
[2024-12-16 03:40] VITALS: BP 93/73; PULSE 54; RESP 18; TEMP 36.2; O2SAT 99
[2024-12-16 05:44] LABS: Absolute Lymphocyte Count 1.28 X10^3/uL (0.83-4.51); Absolute Neutrophil Count 3.7 X10^3/uL (2.0-7.7); Basophil# 0.05 X10^3/uL; Basophil% 0.8 % (0-1); Eosinophil# 0.14 X10^3/uL; Eosinophils% 2.3 % (0-5); Hematocrit 39.8 % (40-54); Hemoglobin 13.5 g/dL (13.0-16.5); Lymphocyte # 1.28 X10^3/ul (0.83-4.51); Lymphocyte % 20.8 % (19-41); Mean Corp Hgb Conc 33.9 g/dL (32-36); Mean Corpuscular Hgb 29.2 pg (27.0-32.0); Mean Platelet Vol. 9.8 fl (6.2-12.0); Monocyte# 0.83 X10^3/uL; Monocyte% 13.5 % (0-10); NRBC Flagged by Analyzer 0 % (0-5); Neutrophil # 3.74 X10^3/uL (2.7-7.7); Platelet Count 153 K/mm3 (150-450); RBC Distribution Width SD 40.5 fl (35.1-43.9); Red Blood Count 4.63 M/mm3 (4.6-6.2); White Blood Count 6.1 K/mm3 (4.4-11.0)
[2024-12-16] MEDS: Piperacil/Tazobactam 3.375 GM in 0.9% Normal Saline (50mL MB+) 50 ML IV ×2 (05:50→14:15)
[2024-12-16 06:13] LABS: AST(SGOT) 29 U/L (<=37); Alanine Aminotransfer ALT/SGPT 149 U/L (<=46); Albumin, Serum 3.1 g/dL (3.5-5.0); Alkaline Phosphatase 136 U/L (40-129); Anion Gap 10 (5-15); BUN 14 mg/dL (4-19); BUN/Creat Ratio 12.7 RATIO (10-20); Bilirubin, Direct 1.88 mg/dL (0.00-0.30); Carbon Dioxide 24.8 mmol/L (21.0-32.0); Chloride 104 mmol/L (98-108); Creatinine, Serum 1.06 mg/dL (0.70-1.20); EST Glomerular Filtration Rate 90 (>60); Estimated Creatinine Clearance 105.07 ml/min (50-250); Globulin 3.1 g/dL (2.2-4.2); Glucose 85 mg/dL (70-99); Protein, Total 6.2 g/dL (5.9-8.4); Sodium Level 139 mmol/L (133-145); Total Bilirubin 2.75 mg/dL (0.00-1.30)
[2024-12-16 08:23] VITALS: O2SAT 94
[2024-12-16 10:50] VITALS: BP 114/85; PULSE 67; RESP 16; TEMP 36.3; O2SAT 96
--- NOTE | 2024-12-16 12:11 | EX.PCM.CON.S ---
Assessment & Plan Assessment/Plan (1) Choledocholithiasis: PLAN: Patient is a 39-year-old male who is currently inpatient after presentation with acute ascending cholangitis and recurrent choledocholithiasis. He appears to be responding well to treatment status post ERCP with stent replacement yesterday 12/16/2024. Patient's initial presentation with choledocholithiasis came August 2024 when his total bilirubin was markedly elevated at 24 (maximum level). Following up presentation he was advised to seek surgical consultation for cholecystectomy but declined this recommendation as he wished to keep his gallbladder. It was also recommended that he complete a liver biopsy given his marked laboratory abnormalities that he did not follow through with this order. Upon obtaining laboratories that showed normal liver function testing he requested ERCP for stent removal with GI and this was completed 12/11/2024. Patient ultimately presented with signs and symptoms of ascending cholangitis on 12/15/2024 but he confesses within a day to a day and a half following his procedure he started to experience recurrence of his abdominal pain. Thus, patient underwent repeat ERCP with replacement of the stent on 12/15/2024. Upon visiting him he appears to once again be responding well to treatment. However, his blood culture Gram stain is positive and signifies gram-negative bacteremia. He has no pain on my exam with palpation of his right upper quadrant. I held a lengthy conversation with patient and his spouse?including and drawings to illustrate relevant anatomy and physiology. I discussed with them the basics of choledocholithiasis and the necessity of cholecystectomy as part of the management for this process to mitigate the risk for recurrence. Given patient's personal experience this [id number] appears clear to them. Patient's spouse does offer that her waited over a month with his jaundice before presenting at the initial encounter and thus attributes his marked lab abnormalities to this delay in seeking care. Following this discussion I offered my recommendation for a short interval follow-up as an outpatient to then schedule laparoscopic cholecystectomy with intraoperative cholangiography. I also offered to perform a core needle biopsy at the time of the procedure as a means of hopefully mitigating any periprocedural bleeding and obtaining a specimen as requested by both Drs. Babin and Hu to exclude a primary hepatocellular or biliary pathology. Lastly, on exam I did find a fat?incarcerated umbilical hernia measuring between 1 and 2 cm at the fascial defect. I thus offered primary repair of this hernia in addition to the other components of the procedure but quickly followed this with expected activity restrictions postoperatively. Patient and the spouse expressed appreciation for these explanations and a willingness to proceed as described. Information has also been relayed to patient's primary hospitalist, Dr. [email or web address] Please complete antibiotic course for treatment of gram-negative bacteremia and directed to follow-up with general surgery as an outpatient. Camron Shoemaker MD General Surgery Endocrine Surgery Pager: [facility] [address] [place] [address], [address] [place] [id number] Office: [phone] HPI Consult Data Date of Consult: 12/16/24 HPI Narrative Reason for Consultation: Recurrent choledocholithiasis HPI Narrative: DIANE CONNORS, is a 39 M who is evaluated at the request of the hospitalist team after presenting with acute ascending cholangitis and choledocholithiasis status post ERCP with stent removal on 12/11/2024. Gastroenterology performed repeat ERCP with stone removal and repeat stenting on 12/15/2024. Patient's fever curve and leukocytosis appear to be improving, however, his blood cultures are positive for gram-negative species. Upon visitation patient states that he is feeling much better and has requested discharge to home. His is present in the room upon visiting. Patient shares that he initially was inclined to try to keep his gallbladder after his initial experience with choledocholithiasis status post ERCP and stenting August 2024 when his T. bili was noted to be elevated as high as 24. He reports that his numbers all returned to normal when checked through the [facility] system and that is what prompted him to request stent removal from gastroenterology. Gastroenterology had advised against stent removal given patient had gallbladder still in place but at patient insistence they proceeded with stent removal. Patient has no significant past medical history aside from the above. He has no history of abdominal surgeries. [facility] Medical History Overweight (BMI 25.0-29.9) No pertinent past medical history Home Medications ?Medication ?Instructions ?Recorded ?Last Taken ?Type NK 09/04/24 Unknown History Allergy/AdvReac Type Severity Reaction Status Date / Time No Known Allergies Allergy Verified 12/14/24 10:16 Surgical History History of ERCP Social History Smoking Status: Never smoker alcohol intake: never Physical Exam Const alert, oriented x3 and no apparent distress Eyes Eyes Narrative: Scleral icterus present Resp normal respiratory effort GI GI Narrative: Nondistended, normal habitus, soft, nontender to palpation. Umbilical hernia observed which appears to contain incarcerated fat and is mildly tender to palpation. Hernia defect estimated at 1.5 cm in diameter. Negative Isidro sign. Lab / Micro Data 12/16/24 05:09 12/16/24 05:09 Labs: Laboratory Results - last 24 hr 12/16/24 05:09: WBC 6.1, RBC 4.63, Hgb 13.5, Hct 39.8 L, MCV 86.0, MCH 29.2, MCHC 33.9, RDW Std Deviation 40.5, RDW Coeff of Joanne 13.0, Plt Count 153, MPV 9.8, Immature Gran % (Auto) 1.600 H, Neut % (Auto) 61.0, Lymph % (Auto) 20.8, [place] % (Auto) 13.5 H, Eos % (Auto) 2.3, Baso % (Auto) 0.8, Absolute Neuts (auto) 3.7, Absolute Lymphs (auto) 1.28, Nucleated RBC % 0, Sodium 139, Potassium 4.0, Chloride 104, Carbon Dioxide 24.8, Anion Gap 10, BUN 14, Creatinine 1.06, Estim Creat Clear Calc 105.07, Est GFR (MDRD) Non-Af 90, BUN/Creatinine Ratio 12.7, Glucose 85, Calcium 9.0, Total Bilirubin 2.75 H, Direct Bilirubin 1.88 H, AST 29, ALT 149 H, Alkaline Phosphatase 136 H, Total Protein 6.2, Albumin 3.1 L, Globulin 3.1 Micro: Microbiology 12/14/24 12:25 Blood Culture (Wb) - Anticubital Left Blood Culture - Preliminary GNR lactose health and wellness coordinator 12/14/24 12:25 Blood Culture (Wb) - Anticubital Left Blood Culture - Preliminary GNR lactose health and wellness coordinator Alpha Hemolytic Streptococcus Imaging Radiology Impression Endo Retro Cholangiopancreatogram 12/15/24 17:35 IMPRESSION: Fluoroscopy during ERCP as above. Reading Location: [id number] Charges/Coding Visit Charges Inpatient E&M: 27471 Init Hosp L2
--- NOTE | 2024-12-16 14:05 | PCM.DC ---
Discharge Instructions DC O2, CPAP, BIPAP needs Home O2 Discharge instructions: No Follow Up Care Test Results: Test results from this visit will be discussed in further detail at your follow-up appointment, if applicable. Discharge Plan Admission Admit Date/Time: 12/14/24 14:45 Attending Provider: Francesco Lui Primary Care Provider: Shira Arias NP Consulting Providers: Cruz Arciniega; Camron Shoemaker; Jared Arevalo Instructions Additional Instructions / Restrictions: [id number] Tylenol 500 mg every 6 hourly for fever more than 102 Fahrenheit Discharge Orders/Prescriptions Prescriptions: New amoxicillin-pot clavulanate 875-125 mg tablet 1 tab PO BID 7 Days Qty: 14 0RF Referrals / Follow Up: Camron Shoemaker MD [Med Staff - Active Staff] - Within 2 Weeks Denys Babin DO [Med Staff - Active Staff] - Within 1 Month Cayla Quiñonez NP-C [Med Staff - Adv Practice Prof] - Within 2 Weeks (Follow-up liver chemistry) Shira Arias NP, SHEET METAL WORK FURNACE INSTALLER-C [Primary Care Provider] - Disposition Disposition (needs filled in before D/C Order can be placed): Home, Self Care
--- NOTE | 2024-12-16 14:13 | PCM.DC.SUM ---
Providers Date of Admission: 12/14/24 Date of Discharge: 12/16/24 Primary Care Physician: AGUILAR Giles Consultations 12/14/24 16:30 Consult: Gastroenterology Routine Consulting Provider: Meagan Gastroenterology Reason for Consult: recent ERCP, elevated LFTs EMERGENT Consult: No Notified: Yes Date Notified: 12/14/24 Time Notified: 16:31 Method of Notification: Text 12/16/24 11:06 Consult: Infectious Disease Routine Consulting Provider: Jared Arevalo Reason for Consult: Strep AND GNR in blood, cholangitis EMERGENT Consult: No Notified: Yes Date Notified: 12/16/24 Time Notified: 11:06 Method of Notification: Text 12/16/24 11:08 Consult: General Surgery Routine Consulting Provider: Camron Shoemaker Reason for Consult: choledololithiasis WITH cholelithiasis EMERGENT Consult: No Notified: Yes Date Notified: 12/16/24 Time Notified: 11:08 Method of Notification: Verbal Reason For Visit: RECENT ERCP W FEVERS Diagnosis Discharge Diagnosis (1) Choledocholithiasis: Status: Resolved Code(s): K80.50 - Calculus of bile duct without cholangitis or cholecystitis without obstruction Plan Patient is a 39-year-old male who presented to [facility] ED on 12/14/2024 with fevers and chills after recent ERCP to remove the stent. Gallstone was removed on Saturday. 1. Suspected cholangitis probably aggravated by recent ERCP with choledocholithiasis: Patient is being admitted to PCU. Patient had fever on Saturday at home after ERCP on last Saturday. After admission Tmax 99.7 Fahrenheit. Currently patient on IV Zosyn. Office visit note reviewed. Patient has elevated ALT since August 2024 as per [employer]. Fluctuates between 50 to 78. Admitted with 354, improving, 227. AST also elevated. Total bilirubin 16.7 on 09/07, improved to 4.43 and today 5.85. Last ERCP on 12/11 showed biliary tree dilated with a stone causing obstruction, complete removal was accomplished by sphincterotomy and balloon extraction. 1 stent was removed from biliary tree. His further said in first week of October his labs showed AST ALT 33/34 his bilirubin was about 1.0 although no Documentary evidence to corroborate. I talked to the in detail after discussion with Dr. Babin. I gave the option of transfer to tertiary care of consideration of repeat ERCP with endoscopic ultrasound after cholangitis gets better with IV antibiotic. Patient also needs lap arthur after control of the infection. Patient said she will make decision after talking to Dr. Babin whom I informed. 12/16: Leukocytosis has resolved. Patient wants to go home as he asked in the morning in the afternoon. Liver chemistry shows improvement in total and direct bilirubin, ALT AST and alkaline phosphatase. AST is normal. Electrolytes in normal range. Patient was seen by ID and maria elena to discharge on Augmentin 875 mg twice daily for 1 more week. Patient was also evaluated by surgeon Dr. Shoemaker who advised follow-up in the office in 2-week to plan for laparoscopic cholecystectomy. Discussed with Dr. Babin. Follow-up in GI office in 2 weeks to see improvement in the liver chemistry 2. Overweight ? BMI 29 on admit. Encouraged lifestyle modifications. DVT prophylaxis: Lovenox CODE STATUS: Full code, verified Discharge medication reconciliation done. Discharge follow-up instructions completed. Discharge process discussed with the patient and all questions were answered to patient's satisfaction. Follow with PCP in 1 to 2 weeks Total time spent, exact 35 minutes on discharge meds reconciliation, examination, coordination of care with nurses and ancillary staff, review of imaging and blood test and discussion with the patient on follow-up instructions. Medications at Discharge Home Medications amoxicillin 875 mg-potassium clavulanate 125 mg tablet 1 tab PO BID 1 week #14 tabs 12/16/24 Physical Exam Narrative Seen and examined. No fever chills. Patient is feeling good and sitting upright. Jaundice is also got better. No abdominal pain. Physical exam General: Alert, Oriented x3, Cooperative HEENT: Slight icterus present. Atraumatic, PERRLA, EOMI, Normocephalic Oral: No Gingival or Mucosal Lesions/ Ulcerations Neck: Supple, No JVD, Negative Carotid Bruits Chest wall/Lungs: Air entry diminished in bilateral lung bases. No crepitation/rhonchi Cardiovascular: Regular rate, Regular Rhythm, Normal S1, Normal S2, No M/G/R Abdomen: Bowel Sounds Present, Soft, Non Tender, Non-Distended : No dysuria. No renal angle tenderness. No suprapubic tenderness. Extremities: No edema, Capillary Refill Less than 3 Seconds Skin: No rashes, No breakdown Musculoskeletal: No Tenderness to Palpation of Joints or Extremities Neurological: Cranial nerves II-XII grossly intact, DTR 2+/4. No acute focal neurological deficit. Psych/Mental Status: Flat affect. Weight / BMI Weight Weight: 205 lb 0.478 oz Body Mass Index (BMI) 29.3 ABG / Lab / Microbiology Data 12/16/24 05:09 12/16/24 05:09 Laboratory: Laboratory Results - last 24 hr 12/16/24 05:09: WBC 6.1, RBC 4.63, Hgb 13.5, Hct 39.8 L, MCV 86.0, MCH 29.2, MCHC 33.9, RDW Std Deviation 40.5, RDW Coeff of Joanne 13.0, Plt Count 153, MPV 9.8, Immature Gran % (Auto) 1.600 H, Neut % (Auto) 61.0, Lymph % (Auto) 20.8, [place] % (Auto) 13.5 H, Eos % (Auto) 2.3, Baso % (Auto) 0.8, Absolute Neuts (auto) 3.7, Absolute Lymphs (auto) 1.28, Nucleated RBC % 0, Sodium 139, Potassium 4.0, Chloride 104, Carbon Dioxide 24.8, Anion Gap 10, BUN 14, Creatinine 1.06, Estim Creat Clear Calc 105.07, Est GFR (MDRD) Non-Af 90, BUN/Creatinine Ratio 12.7, Glucose 85, Calcium 9.0, Total Bilirubin 2.75 H, Direct Bilirubin 1.88 H, AST 29, ALT 149 H, Alkaline Phosphatase 136 H, Total Protein 6.2, Albumin 3.1 L, Globulin 3.1 Microbiology: Microbiology 12/14/24 12:25 Blood Culture (Wb) - Anticubital Left Blood Culture - Preliminary GNR lactose phlebotomy coordinator 12/14/24 12:25 Blood Culture (Wb) - Anticubital Left Blood Culture - Preliminary GNR lactose phlebotomy coordinator Alpha Hemolytic Streptococcus 12/14/24 12:25 Mucosa - Nose SARS-CoV-2, Influenza & RSV (PCR) - Final Radiography Diagnostic Testing: Radiology Impression Endo Retro Cholangiopancreatogram 12/15/24 17:35 IMPRESSION: Fluoroscopy during ERCP as above. Reading Location: [facility] D/C Instructions DC O2, CPAP, BIPAP Needs Home O2 Discharge instructions: No Meaningful Use Info Meaningful Use Meaningful Use Diagnoses (Choose all that apply): None applicable Ischemic Stroke Statin Dosing Therapy Reference: STATIN DOSE THERAPY REFERENCE: * Patients > 75 years receive moderate or high dose statin therapy. * Patients 75 years or YOUNGER should receive HIGH intensity statin dose unless contraindicated. You will be required to document reason for non-treatment if statin daily dose does not meet guidelines. HIGH DOSE STATIN THERAPY DAILY Atorvastatin > than or = to 40 mg Rosuvastatin > than or = to 20 mg Amlodipine + Atorvastatin > than or = to 2.5/40 mg Ezetimibe + Simvastatin 10/80 mg Simvastatin 80mg Discharge Plan Admission Admit Date/Time: 12/14/24 14:45 Attending Provider: Francesco Lui Primary Care Provider: Shira Arias NP Consulting Providers: Cruz Arciniega; Camron Shoemaker; Jared Arevalo Instructions Additional Instructions / Restrictions: Fowy-mgi-[id number] Tylenol 500 mg every 6 hourly for fever more than 102 Fahrenheit Discharge Orders/Prescriptions Prescriptions: New amoxicillin-pot clavulanate 875-125 mg tablet 1 tab PO BID 7 Days Qty: 14 0RF Referrals / Follow Up: Camron Shoemaker MD [Med Staff - Active Staff] - Within 2 Weeks Denys Babin DO [Med Staff - Active Staff] - Within 1 Month Cayla Quiñonez NP-C [Med Staff - Adv Practice Prof] - Within 2 Weeks (Follow-up liver chemistry) Shira Arias NP, ELLI-C [Primary Care Provider] - Disposition Disposition (needs filled in before D/C Order can be placed): Home, Self Care Charges/Coding Visit Charges Inpatient E&M: 32616 Disch Hosp >30min
[2024-12-16 14:17] VITALS: BP 113/79; PULSE 69; RESP 16; TEMP 37.1; O2SAT 96
--- NOTE | 2024-12-16 16:13 | CON.PCM.ID_ITS ---
Assessment & Plan Assessment/Plan (1) Bacteremia due to Gram-negative bacteria: PLAN: Feeling better on zosyn. Had ERCP 12/11, then again 12/15/[address] Babin for removal of stone. Ok for d/c home on po augmentin for one week, will follow final cx data. Will follow prn, thank you, d/w Dr. Lui HPI Consult Data Date of Consult: 12/16/24 HPI Narrative Reason for Consultation: bacteremia HPI Narrative: DIANE CONNORS, is a 39 M who presented 12/14 with acute onset fever and chills. Had ERCP 12/11 with removal of stone and biliary sphincterotomy. Had some associated abd pain and nausea. Admitted on zosyn, feeling better today. No cough or SOB. Additional history from at bedside. Full ROS performed and neg except as noted above. [facility] Medical History Overweight (BMI 25.0-29.9) No pertinent past medical history Medical History no medical history Home Medications ?Medication ?Instructions ?Recorded ?Last Taken ?Type amoxicillin 875 mg-potassium 1 tab PO BID 1 week #14 t abs 12/16/24 Unknown Rx clavulanate 125 mg tablet Allergy/AdvReac Type Severity Reaction Status Date / Time No Known Allergies Allergy Verified 12/14/24 10:16 Surgical History History of ERCP Social History Smoking Status: Never smoker alcohol intake: never Physical Exam Const alert, oriented x3 and no apparent distress General Appearance: cooperative HEENT normocephalic and head/scalp atraumatic Eyes PERRL and EOMs intact bilaterally Neck supple and No nodes Resp normal air movement and clear to auscultation bilaterally Cardio regular rate and regular rhythm GI soft to palpation, non-tender and non-distended Extremity General Extremity: Negative for edema Skin no rashes or lesions noted Neuro CN's II-XII intact bilaterally Lab / Micro Data Attestation: I reviewed the patient's lab results. 12/16/24 05:09 12/16/24 05:09 Labs: Laboratory Results - last 24 hr 12/16/24 05:09: WBC 6.1, RBC 4.63, Hgb 13.5, Hct 39.8 L, MCV 86.0, MCH 29.2, MCHC 33.9, RDW Std Deviation 40.5, RDW Coeff of Joanne 13.0, Plt Count 153, MPV 9.8, Immature Gran % (Auto) 1.600 H, Neut % (Auto) 61.0, Lymph % (Auto) 20.8, M nahun % (Auto) 13.5 H, Eos % (Auto) 2.3, Baso % (Auto) 0.8, Absolute Neuts (auto) 3.7, Absolute Lymphs (auto) 1.28, Nucleated RBC % 0, Sodium 139, Potassium 4.0, Chloride 104, Carbon Dioxide 24.8, Anion Gap 10, BUN 14, Creatinine 1.06, Estim Creat Clear Calc 105.07, Est GFR (MDRD) Non-Af 90, BUN/Creatinine Ratio 12.7, Glucose 85, Calcium 9.0, Total Bilirubin 2.75 H, Direct Bilirubin 1.88 H, AST 29, ALT 149 H, Alkaline Phosphatase 136 H, Total Protein 6.2, Albumin 3.1 L, Globulin 3.1 Micro: Microbiology 12/14/24 12:25 Blood Culture (Wb) - Anticubital Left Blood Culture - Preliminary GNR lactose home performance laborer 12/14/24 12:25 Blood Culture (Wb) - Anticubital Left Blood Culture - Preliminary GNR lactose home performance laborer Alpha Hemolytic Streptococcus Imaging Radiology Impression Endo Retro Cholangiopancreatogram 12/15/24 17:35 IMPRESSION: Fluoroscopy during ERCP as above. Reading Location: [id number]
[2024-12-17 04:07] LABS: GGTP 174 IU/L (0-65)
== END 2024-12-16 17:26 | disposition home or self-care (01) | DRG 446 ==
LOC: ED 11:50 → PCU 16:04
PROVIDERS: Internal Medicine Gastroenterology; Admitting Provider Hospitalist; Emergency Provider Emergency Medicine; PCP Nurse Practitioner Family; Visit Provider Internal Medicine
PROC: 0FC98ZZ Extirpation of Matter from Common Bile Duct, Via Natural or Artificial Opening Endoscopic (ICD-10-PCS; CPT 43260; principal; 2024-12-15 16:35)
DX: K80.31 Calculus of bile duct with cholangitis, unspecified, with obstruction (principal); E66.3 Overweight; E80.6 Other disorders of bilirubin metabolism; K83.8 Other specified diseases of biliary tract; R50.9 Fever, unspecified; R74.01 Elevation of levels of liver transaminase levels; Z68.29 Body mass index [BMI] 29.0-29.9, adult
CPT/HCPCS: 36415; 71046; 74177; 74330; 76000; 80048; 80053; 80076; 81001; 82977; 83605; 83690; 85025; 85027; 87040; 87077; 87186; 87631; 93005; 94668; 99283; Q9967; A4216; J2405

== ENCOUNTER → 2024-12-31 | Outpatient (CLI) | payer SELFPAY ==
[2024-12-31 13:54] LABS: AST(SGOT) 38 U/L (<=37); Alanine Aminotransfer ALT/SGPT 64 U/L (<=46); Alkaline Phosphatase 112 U/L (40-129); Bilirubin, Direct 0.42 mg/dL (0.00-0.30); Globulin 3.1 g/dL (2.2-4.2); Total Bilirubin 0.64 mg/dL (0.00-1.30)
== END | disposition home or self-care (01) ==
LOC: LAB 12:14
PROVIDERS: PCP Nurse Practitioner Family; Referring Provider Nurse Practitioner Acute Care; Visit Provider Nurse Practitioner Acute Care
DX: K71.9 Toxic liver disease, unspecified (principal); K80.20 Calculus of gallbladder without cholecystitis without obstruction
CPT/HCPCS: 36415; 80076

== ENCOUNTER → 2025-02-24 | Outpatient (CLI) | payer SELFPAY ==
--- NOTE | 2025-02-24 10:41 | NM_ITS ---
PROCEDURE: HEPATOBILLIARY IMAGING 02/24/2025 REASON FOR EXAM: CALCULUS OF GALLBLADDER WITH ACUTE CHOLECYSTITIS W TECHNIQUE: Intravenous Choletec with planar imaging of the abdomen. RADIOPHARMACEUTICAL: 5.6 mCi of technetium labeled mebrofenin. COMPARISON: None FINDINGS: There is good uptake of the radiopharmaceutical by the liver. The gallbladder is not visualized up to 2 hours following the injection of the radiopharmaceutical. NM/Hepatobilliary Imaging IMPRESSION: NONVISUALIZATION OF THE GALLBLADDER SUSPICIOUS FOR ACUTE CHOLECYSTITIS Reading Location: [place] [id number]
== END | disposition home or self-care (01) ==
LOC: NM 10:40
PROVIDERS: PCP Nurse Practitioner Family; Referring Provider Nurse Practitioner Family; Visit Provider Nurse Practitioner Family
DX: K80.00 Calculus of gallbladder with acute cholecystitis without obstruction (principal)
CPT/HCPCS: 78226; A9537

== ENCOUNTER 2025-03-17 15:40 | Inpatient (IN) | payer SELFPAY ==
--- NOTE | 2025-03-08 08:22 | EKG12_ITS ---
Test Reason : PREOP Blood Pressure : */* mmHG Vent. Rate : 71 BPM Atrial Rate : 71 BPM P-R Int : 182 ms QRS Dur : 114 ms QT Int : 380 ms P-R-T Axes : 46 -23 33 degrees QTcB Int : 412 ms Normal sinus rhythm Incomplete right bundle branch block Borderline ECG When compared with ECG of 15-Dec-2024 04:48, No significant change was found Confirmed by Camron Redd ([id number]), electronic news gathering editor CHAVA CASEY ([id number]) on 03/08/2025 10:43:33 AM Referred By: Camron Shoemaker Confirmed By: Camron Redd
--- NOTE | 2025-03-08 13:27 | PAT.ANE_ITS ---
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 When Was Last Pacemaker Check QUESTION #4 FULL TEXT: You/Your Family Experience fever (hyperthermia) with Anesthesia Last Oral Intake Last Oral intake: Last Oral Intake NPO since Meds taken in AM with sips of water? 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 - wood piler: PONV - wood piler Female No 03/03/25 10:05 HX of Motion Sickness No 03/03/25 10:05 HX of N/V After Surgery No 03/03/25 10:05 Non-Smoker Yes 03/03/25 10:05 Duration of Surgery greater Yes 03/03/25 10:05 than 60 minutes Number of Risk Factors 2 03/03/25 10:05 PONV Score Moderate Risk 03/03/25 10:05 Height & Weight Height & Weight: Anesthesia: Height & Weight Height 5 ft 10 in 12/31/24 10:04 Respiratory Assessment Respiratory Assessment - wood piler: Respiratory Tract Infection Hx - wood piler Hx Respiratory Tract Infection No 03/03/25 10:05 STOP Sleep Apnea STOP Sleep Apnea - wood piler: STOP Sleep Apnea - wood piler Hx Hypertension No 03/03/25 10:05 Hx Sleep Apnea No 03/03/25 10:05 CPAP BIPAP Do you snore loudly (louder No 03/03/25 10:05 than talking or can be heard Do you often feel tired/ No 03/03/25 10:05 fatigued/ sleepy during daytime? Has anyone observed you stop No 03/03/25 10:05 breathing during sleep? STOP Results Negative 03/03/25 10:05 QUESTION #5 FULL TEXT : Do you snore loudly (louder than talking or can be heard through closed doors)? 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 Specify any problems Hx of Preganancy in last 3 N/A 03/03/25 10:05 Months Nurse Filling Out Transfusion DSCHRIBER 03/03/25 10:05 & Questions: Date: 03/03/25 03/03/25 10:05 Time: 10:07 03/03/25 10:05 Patient unable to answer at this time (ie. confused, unrespo /Reproduction History /Reproductive History - wood piler: /Reproductive Hx- wood piler Hx Now Gestational Age (in weeks): EDC: Hx Hx Para Hx Section SAB No 03/03/25 10:05 PFSH Medical History History of biliary stent insertion Elevation of levels of liver transaminase levels Hyperbilirubinemia Overweight (BMI 25.0-29.9) No pertinent past medical history Home Medications ?Medication ?Instructions ?Recorded ?Last Taken ?Type NK 12/31/24 Unknown History Allergy/AdvReac Type Severity Reaction Status Date / Time No Known Allergies Allergy Verified 03/03/25 10:03 Surgical History History of ERCP Social History Smoking Status: Never smoker alcohol intake: never Audit: Pertinent Findings Pertinent Findings EKG Perinent findings: 03/08/2025. Normal sinus rhythm 71 bpm. Incomplete right bundle branch block. Additional pertinent findings: Chest x-ray 12/14/2024. Mild left basilar airspace disease favorable for atelectasis and scarring. Recommendation Anesthesia Recommendation Anesthesia recommendation: OPTIMIZED for anesthesia
--- NOTE | 2025-03-08 13:29 | PAT.ANE_ITS ---
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 When Was Last Pacemaker Check QUESTION #4 FULL TEXT: You/Your Family Experience fever (hyperthermia) with Anesthesia Last Oral Intake Last Oral intake: Last Oral Intake NPO since Meds taken in AM with sips of water? 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 - market risk specialist: PONV - market risk specialist Female No 03/03/25 10:05 HX of Motion Sickness No 03/03/25 10:05 HX of N/V After Surgery No 03/03/25 10:05 Non-Smoker Yes 03/03/25 10:05 Duration of Surgery greater Yes 03/03/25 10:05 than 60 minutes Number of Risk Factors 2 03/03/25 10:05 PONV Score Moderate Risk 03/03/25 10:05 Height & Weight Height & Weight: Anesthesia: Height & Weight Height 5 ft 10 in 12/31/24 10:04 Respiratory Assessment Respiratory Assessment - market risk specialist: Respiratory Tract Infection Hx - market risk specialist Hx Respiratory Tract Infection No 03/03/25 10:05 STOP Sleep Apnea STOP Sleep Apnea - market risk specialist: STOP Sleep Apnea - market risk specialist Hx Hypertension No 03/03/25 10:05 Hx Sleep Apnea No 03/03/25 10:05 CPAP BIPAP Do you snore loudly (louder No 03/03/25 10:05 than talking or can be heard Do you often feel tired/ No 03/03/25 10:05 fatigued/ sleepy during daytime? Has anyone observed you stop No 03/03/25 10:05 breathing during sleep? STOP Results Negative 03/03/25 10:05 QUESTION #5 FULL TEXT : Do you snore loudly (louder than talking or can be heard through closed doors)? 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 Specify any problems Hx of Preganancy in last 3 N/A 03/03/25 10:05 Months Nurse Filling Out Transfusion DSCHRIBER 03/03/25 10:05 & Questions: Date: 03/03/25 03/03/25 10:05 Time: 10:07 03/03/25 10:05 Patient unable to answer at this time (ie. confused, unrespo /Reproduction History /Reproductive History - market risk specialist: /Reproductive Hx- market risk specialist Hx Now Gestational Age (in weeks): EDC: Hx Hx Para Hx Section SAB No 03/03/25 10:05 PFSH Medical History History of biliary stent insertion Elevation of levels of liver transaminase levels Hyperbilirubinemia Overweight (BMI 25.0-29.9) No pertinent past medical history Home Medications ?Medication ?Instructions ?Recorded ?Last Taken ?Type NK 12/31/24 Unknown History Allergy/AdvReac Type Severity Reaction Status Date / Time No Known Allergies Allergy Verified 03/03/25 10:03 Surgical History History of ERCP Social History Smoking Status: Never smoker alcohol intake: never Audit: Pertinent Findings HISTORY of Pertinent Findings History of Pertinent Findings: EKG Pertinent Findings EKG Perinent findings 03/08/2025. Normal sinus 03/08/25 13:28 rhythm 71 bpm. Incomplete right bundle branch block. Additional Pertinent Findings Additional pertinent findings Chest x-ray 12/14/2024. Mild 03/08/25 13:28 left basilar airspace disease favorable for atelectasis and scarring. Recommendation Anesthesia Recommendation Anesthesia recommendation: OPTIMIZED for anesthesia
[2025-03-17] VITALS (20 sets, daily range): BP systolic 129–163; BP diastolic 79–102; PULSE 73–106; RESP 16–18; TEMP 36.2–37.2; O2SAT 93–99; BMI 29.4; BMI 30.4
[2025-03-17] MEDS: Bupiv/Epi 0.25% 30 ML Vial (10:20)
[2025-03-17] MEDS: Lactated Ringers 1,000 ML 15 ML IV (11:00)
--- NOTE | 2025-03-17 11:10 | PRE.ANES_ITS ---
ASA Classification* ASA Classification ASA Classification: 2 Assessment & Plan Anesthesia* Anesthesia Assessment Anesthesia Assessment: Discussed sedation and/or anesthesia options, risks, benefits, and alternatives with patient/parents/legal guardian/POA. Questions invited. The patient/parents/legal guardian/POA seems to understand and agrees to proceed with anesthesia plan. Reviewed the physical assessment, medical history, allergy history and patient home medications list prior to surgery/procedure/anesthetic and documented any changes. Performed airway and anesthesia risk assessments. Anesthesia Type Anesthesia Type: General History Source History Obtained from:: Patient and Chart Anesthesia Focused Assessment* Temperature: 98.7 F Pulse Rate: 73 Blood Pressure: 132/99 Respiratory Rate: 16 Pulse Ox: 99 Airway Assessment Mouth opens: >3 cm Mallampati Score: III Teeth Condition: Caps/Crowns (Patient has several crowns. They are tight.) Neck Range of motion (ROM): Full ROM Labs Anesthesia Preop lab: CBC WBC 6.1 K/mm3 (4.4-11.0) 12/16/24 05:09 12/16/24 RBC 4.63 M/mm3 (4.6-6.2) 12/16/24 05:09 12/16/24 Hgb 13.5 g/dL (13.0-16.5) 12/16/24 05:09 12/16/24 Hct 39.8 % (40-54) L 12/16/24 05:09 12/16/24 Plt Count 153 K/mm3 (150-450) 12/16/24 05:09 12/16/24 CHEMISTRY Potassium 4.0 mmol/L (3.3-5.1) 12/16/24 05:09 12/16/24 Sodium 139 mmol/L (133-145) 12/16/24 05:09 12/16/24 Magnesium 2.1 mg/dL (1.6-2.6) 09/06/24 07:15 09/06/24 Phosphorus 3.2 mg/dL (2.5-4.9) 09/06/24 07:15 09/06/24 BUN 14 mg/dL (4-19) 12/16/24 05:09 12/16/24 Creatinine 1.06 mg/dL (0.70-1.20) 12/16/24 05:09 12/16/24 Glucose 85 mg/dL (70-99) 12/16/24 05:09 12/16/24 TSH 0.918 uIU/mL (0.358-3.740) 09/11/24 08:48 08/30 12/21 COAG PT 12.3 SECONDS (11.7-14.9) 09/11/24 08:48 Pre-Assessment Diagnosis/Proposed Procedure Planned Operative Procedure(s): LAP CHOLEY IOC UMBILICAL HERNIA REPAIR LIVER BIOPSY 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 When Was Last Pacemaker Check QUESTION #4 FULL TEXT: You/Your Family Experience fever (hyperthermia) with Anesthesia Last Oral Intake Last Oral intake: Last Oral Intake NPO since 23:00 03/17/25 10:57 Meds taken in AM with sips of No 03/17/25 10:57 water? 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 - central office inspector: PONV - central office inspector Female No 03/03/25 10:05 HX of Motion Sickness No 03/03/25 10:05 HX of N/V After Surgery No 03/03/25 10:05 Non-Smoker Yes 03/03/25 10:05 Duration of Surgery greater Yes 03/03/25 10:05 than 60 minutes Number of Risk Factors 2 03/03/25 10:05 PONV Score Moderate Risk 03/03/25 10:05 Height & Weight Height & Weight: Anesthesia: Height & Weight Height 5 ft 10 in 03/17/25 10:57 Weight: 93 kg 03/17/25 10:57 Body Mass Index (BMI) 29.4 03/17/25 10:57 Respiratory Assessment Respiratory Assessment - central office inspector: Respiratory Tract Infection Hx - central office inspector Hx Respiratory Tract Infection No 03/03/25 10:05 STOP Sleep Apnea STOP Sleep Apnea - central office inspector: STOP Sleep Apnea - central office inspector Hx Hypertension No 03/03/25 10:05 Hx Sleep Apnea No 03/03/25 10:05 CPAP BIPAP Do you snore loudly (louder No 03/03/25 10:05 than talking or can be heard Do you often feel tired/ No 03/03/25 10:05 fatigued/ sleepy during daytime? Has anyone observed you stop No 03/03/25 10:05 breathing during sleep? STOP Results Negative 03/03/25 10:05 QUESTION #5 FULL TEXT : Do you snore loudly (louder than talking or can be heard through closed doors)? 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 Specify any problems Hx of Preganancy in last 3 N/A 03/03/25 10:05 Months Nurse Filling Out Transfusion DSCHRIBER 03/03/25 10:05 & Questions: Date: 03/03/25 03/03/25 10:05 Time: 10:07 03/03/25 10:05 Patient unable to answer at this time (ie. confused, unrespo /Reproduction History /Reproductive History - central office inspector: /Reproductive Hx- central office inspector Hx Now Gestational Age (in weeks): EDC: Hx Hx Para Hx Section SAB No 03/03/25 10:05 Active Medications Active Medications: Current Medications Generic Name Dose Route Start Last Admin Trade Name Freq PRN Reason Stop Dose Admin Cefazolin Sodium 2 gm/ Sodium 110 mls @ 150 mls/hr 03/17/25 11:30 Chloride IV 03/17/25 12:13 INTRAOP ONE Lactated Ringer's 1,000 mls @ 15 mls/hr 03/17/25 10:45 03/17/25 11:00 IV 15 mls/hr .Q48H RICARDO Administration PFSH Medical History History of biliary stent insertion Elevation of levels of liver transaminase levels Hyperbilirubinemia Overweight (BMI 25.0-29.9) No pertinent past medical history Home Medications ?Medication ?Instructions ?Recorded ?Last Taken ?Type NK 12/31/24 Unknown History Allergy/AdvReac Type Severity Reaction Status Date / Time No Known Allergies Allergy Verified 03/17/25 10:56 Surgical History Hx laparoscopic cholecystectomy History of ERCP Social History Smoking Status: Never smoker alcohol intake: never Review of Systems (Anesthesia) ROS Narrative System reviewed and no additional complaints, except as documented.
--- NOTE | 2025-03-17 11:30 | GALL_PTH ---
PATIENT: DIANE CONNORS LOC: [facility]3 U#:[id number] AGE/SX: 39/M ROOM: [facility] [place] RE03/17/[address]: Dr. Camron Shoemaker MD : 1985 BED: 1 DIS: 03/18/2025 SPEC #: [id number] RECD: 03/18/25 08:30 STATUS: LYNDA DWAYNE #: [id number] NANDA: 03/17/25 11:[address]: Camron Shoemaker DEPT: SURGICAL PATHOLOGY RECD BY: Adolfo Colvin ENTERED: 03/18/25 12:12 SP TYPE: CARTER LANTIGUA DR: MD Shira Estrada, AGUILAR Tissues: A - Gallbladder, NOS Procedures: Surgery Specimen Level III HEADER OPERATION: Laparoscopic, cholecystectomy with IOC and umbilical hernia PRE-OP DIAGNOSIS: Choledocholithiasis TISSUE SUBMITTED: A- Gallbladder MICROSCOPIC DIAGNOSIS A. Gallbladder, choledocholithiasis, subtotal cholecystectomy: * Acute on chronic cholecystitis with cholelithiasis. MICROSCOPIC DESCRIPTION Slides are reviewed. GROSS DESCRIPTION A.? Received in formalin labeled with the patient's name and date of . Designated as gallbladder is a 3.3 x 3.1 x 1.0 cm aggregate of trevino-red to brown rubbery and cauterized soft tissue fragments some of which are focally surfaced by possible mucosa.? There are multiple, multifaceted, brown choleliths measuring up to 0.9 cm.? Feed Mill Lab Technician sections are submitted in 1 cassette. Per conversation with Dr. Shoemaker, only small fragments of the gallbladder (anterior wall) were removed. [place] 03/19/2025 CPT:63473
--- NOTE | 2025-03-17 11:47 | HP.PCM_ITS ---
History and Physical Date of Admission: 03/17/25 Date of Service: 12/31/24 MR#: [id number] Acct: [id number] Name: DIANE CONNORS Rep #: [id number] : 1985 Provider: Dr. 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 Accompanied by: Unknown Is patient in pain?: No Allergies No Known Allergies Allergy (Verified 12/31/24 11:28) Medications ?Medication ?Instructions ?Recorded ?Confirmed ?Type NK 12/31/24 12/31/24 History Have you fallen in the past year?: No PFSH Medical History Overweight (BMI 25.0-29.9) No pertinent past medical history Medical History no medical history Surgical History History of ERCP Social History Smoking Status: Never smoker alcohol intake: never HPI HPI HPI: Patient is a 39-year-old male whom I met during recent inpatient stay that concluded 12/16/2024 and requested follow-up on the account of recurrent choledocholithiasis, abnormal LFTs, and umbilical hernia. He presents today again with his . She shares that she reviewed my note following our encounter and also took a picture of my drawings. When asked if there are any questions based on this information the initially denied any. Mr. Connors denies any abdominal pain at this point. He further denies any fevers or chills. Neither he nor Mrs. Connors have appreciated any evidence of jaundice. He also confirms that he has completed his antibiotic course for his gram-negative bacteremia. Below is the assessment and plan from our prior joint encounter: PLAN: Patient is a 39-year-old male who is currently inpatient after presentation with acute ascending cholangitis and recurrent choledocholithiasis. He appears to be responding well to treatment status post ERCP with stent replacement yesterday 12/16/2024. Patient's initial presentation with choledocholithiasis came August 2024 when his total bilirubin was markedly elevated at 24 (maximum level). Following up presentation he was advised to seek surgical consultation for cholecystectomy but declined this recommendation as he wished to keep his gallbladder. It was also recommended that he complete a liver biopsy given his marked laboratory abnormalities that he did not follow through with this order. Upon obtaining laboratories that showed normal liver function testing he requested ERCP for stent removal with GI and this was completed 12/11/2024. Patient ultimately presented with signs and symptoms of ascending cholangitis on 12/15/2024 but he confesses within a day to a day and a half following his procedure he started to experience recurrence of his abdominal pain. Thus, patient underwent repeat ERCP with replacement of the stent on 12/15/2024. Upon visiting him he appears to once again be responding well to treatment. However, his blood culture Gram stain is positive and signifies gram-negative bacteremia. He has no pain on my exam with palpation of his right upper quadrant. I held a lengthy conversation with patient and his spouse?including and drawings to illustrate relevant anatomy and physiology. I discussed with them the basics of choledocholithiasis and the necessity of cholecystectomy as part of the management for this process to mitigate the risk for recurrence. Given patient's personal experience this [id number] appears clear to them. Patient's spouse does offer that her waited over a month with his jaundice before presenting at the initial encounter and thus attributes his marked lab abnormalities to this delay in seeking care. Following this discussion I offered my recommendation for a short interval follow-up as an outpatient to then schedule laparoscopic cholecystectomy with intraoperative cholangiography. I also offered to perform a core needle biopsy at the time of the procedure as a means of hopefully mitigating any periprocedural bleeding and obtaining a specimen as requested by both Drs. Babin and Hu to exclude a primary hepatocellular or biliary pathology. Lastly, on exam I did find a fat?incarcerated umbilical hernia measuring between 1 and 2 cm at the fascial defect. I thus offered primary repair of this hernia in addition to the other components of the procedure but quickly followed this with expected activity restrictions postoperatively. Patient and the spouse expressed appreciation for these explanations and a willingness to proceed as described. Information has also been relayed to patient's primary hospitalist, Dr. Thomson.d Please complete antibiotic course for treatment of gram-negative bacteremia and directed to follow-up with general surgery as an outpatient. ROS General General: No weight change, appetite, fatigue, colon cancer, breast cancer or weakness HEENT HEENT: No difficulty swallowing, eye injury, eye surgery, swollen glands or hoarseness Endo Endocrine: No thyroid disease, diabetes mellitus, thyroid cancer, Hair loss, heat intolerance or cold intolerance Skin Skin: No rash or changing moles Breast Breast: No left breast lump, right breast lump, nipple discharge, breast pain, abnormal mammogram, abnormal US or breast enlargement Musc Musculoskeletal: No back problems, arthritis, rheumatoid arthritis, gout or joint pain Cardio Cardiovascular: No murmur, pacemaker, heart disease, atrial fibrillation, high blood pressure, heart attack, heart stent, palpitations, shortness of breath with exertion or chest pain Psych Psychiatric: No depression, anxiety or hearing voices Resp Respiratory: No shortness of breath, No sleep apnea, No cough, No COPD, No asthma, No emphysema and No wheezing Gastro Gastrointestinal: No abdominal pain, No nausea or vomiting, No diarrhea, No constipation, No blood in stool, No acid reflux, No hemorrhoids, No ulcers, Yes gallbladder problem and No black,tarry stools Edd Hematologic: No blood thinners, No blood disorders, No bleeding, No anemia and No blood clots Neuro Neurologic: No system reviewed and no additional complaints, except as documente d, No as per HPI, No abnormal gait, No abnormal hearing, No abnormal movements, No abnormal speech, No behavioral changes, No burning sensations, No confusion, No convulsions, No disequilibrium, No dizziness, No localized weakness, No frequent falls, No headache(s), No lack of coordination, No loss of vision, No memory loss, No numbness, No other visual disturbances, No radicular pain, No restless legs, No sensory deficit, No syncope, No tingling, No tremor(s), No weakness and No other Exam Const General: cooperative and comfortable Orientation: alert, awake and oriented x3 Other: No visible jaundice, patient tanned Resp Effort & Inspection: normal respiratory effort GI Other: Nondistended, soft, tender to palpation (mildly so) in the right upper quadrant. Stable umbilical hernia containing fat that is soft and nontender. Assessment and Plan Assessment and Plan (1) Choledocholithiasis: Status: Resolved Comment: Patient is a 39-year-old male with 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 With this recurrence and treatment for cholangitis it was strongly recommended that he undergo cholecystectomy before any additional consideration is given to removing his current common bile duct stent. Patient was thus visited while an inpatient and this conversation was started. Overall, patient and his spouse confirm understanding of that discussion. However, as the conversation continues Mr. Connors expresses reservations about removing his gallbladder if it could at all be certain that he no longer has gallstones and then as well about undergoing a liver biopsy. I tried to stress that through my experience with choledocholithiasis and then also bringing those experiences of Drs. Lui and Dr. Babin to bear we all found the extreme elevation of his bilirubin (at his initial presentation) to be atypical of this condition as an isolated cause for hyperbilirubinemia. With this deviation from the norm in mind that we recommended undergoing liver biopsy. In fact, patient was given an order for a liver biopsy following his first bout of choledocholithiasis but opted against this recommendation. I discussed that this could be manifestations of a congenital issue or a post congenital inflammatory issue that could be a marker for risk of other disease processes which might be avoided if action is taken upfront. Patient and his seem to confirm understanding. 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 I clarified that I recommend proceeding for surgery as soon as possible given his experience to date but would work with their schedule. I did stress that I would recommend no lifting greater than 10 pounds for 5 weeks immediately postop and then a gradual return to activity thereafter. Plan: Plan for outpatient laparoscopic cholecystectomy and intraoperative cholangiography and concurrent liver biopsy and primary repair of umbilical he rnia. Following his recovery from this procedure we will refer back to gastroenterology for ERCP with stent removal. (2) Hyperbilirubinemia: Status: Inactive Comment: Elevated up to 24 in August 2024 prompting recommendation for liver biopsy with cholecystectomy. I have examined the patient the following changes are noted: Patient arrives for his operation today. He has decided against going through with a liver biopsy since his labs are normalized. I discussed with gastroenterology as well as reviewed with patient that it would be most optimal to proceed now for a liver biopsy in the event that his liver function testing would elevate postoperatively. However, after much deliberation with his he is adamant that he would like to abstain from liver biopsy during today's procedure. We do confirm plans for laparoscopic cholecystectomy and intraoperative cholangiography as well as primary repair of umbilical hernia during port insertion. Consents were confirmed. Will now proceed the operating room for procedure as planned.
[2025-03-17] MEDS: Cefazolin 2 GM in 0.9% Normal Saline (100mL Bag) 100 ML IV (11:59)
--- NOTE | 2025-03-17 15:32 | PCM.OPRPT ---
Procedures Digestive 40xxx-49xxx: 17985 Laparoscopic cholecystectomy Operative Report (Standard) Operative Information Date of Procedure: 03/17/25 Pre-Operative Diagnosis: History of recurrent choledocholithiasis with cholangitis Post-Operative Diagnosis: 1. History of recurrent choledocholithiasis with cholangitis 2. Severe chronic cholecystitis Surgery/Procedure Performed: 1. Laparoscopic subtotal cholecystectomy (fenestrating type) 2. Primary repair of umbilical hernia gear grinder: Yes Boot Repairer: Phuong cSott Tasks completed by medical assistant internal medicine: Opening & closing Type of Anesthesia: General/Supplemental RN Documented Start/Stop Times: Operation Date: 03/17/25 11:30 Case Time Into Pre-Op 03/17/25 10:35 Out of Pre-Op 03/17/25 11:56 Anesthesia Start 03/17/25 11:59 Into Room 03/17/25 11:59 Procedure Start 03/17/25 12:24 Procedure End 03/17/25 15:42 Anesthesia End 03/17/25 15:52 Out of Room 03/17/25 15:52 Into Recovery 03/17/25 15:55 Out of Recovery 03/17/25 18:19 Into Phase II Recovery 03/17/25 18:20 Out of Phase II 03/17/25 18:46 Procedure Start Time: 12:24 Procedure Stop Time: 15:42 Select all DRAINS/GRAFTS/IMPLANTS that apply: Drains Drain details: 15 [place]er round Bridger drain Estimated Blood Loss: 100 Specimen collected: Yes Description of specimen(s) removed: Gallbladder fragments and stones Description of surgery: After appropriate identification in the preoperative holding area patient was brought to the operating room where he was positioned supine on the operating room table. Preoperative antibiotics were being administered during this time. Patient was then induced with a general anesthetic and his abdomen was prepped and draped in usual sterile fashion. A formal timeout was conducted to confirm both patient and the procedure amongst those present. Observing the distance from the xiphoid to the umbilicus, I elected to use a infraumbilical position for our incision for repair of the patient's umbilical hernia and placement of our [place] trocar. I performed a local block along this tissue using quarter percent Marcaine. This incision was made sharply and deepened down through the dermis and subcu tissue with use of electrocautery. I used a hemostat to bluntly dissect out and encircle the umbilical stalk as I took great care to avoid injury to the overlying skin. With the overlying skin sharply removed, I able to visualize patient's fascial defect. This measured approximately 1 cm round. The fascial opening was sharply enlarged to accommodate placement of our trocar and a 12 mm balloon trocar was inserted. Pneumoperitoneum was established at 15 mmHg. Three additional trocars (all 5 mm) were placed in the epigastrium and in the right upper quadrant. Inspection of the peritoneum revealed no inadvertent injury to the viscera below. The gallbladder not able to be immediately visualized as it was completely shrouded in densely adherent omentum. I was able to use tactile feedback to identify the location of the gallbladder and tediously began a combination of applying downward gentle traction on these adhesions and limited bipolar coagulation to manage bleeding using a laparoscopic LigaSure. Through this process I was gradually able to remove the omental attachments and identify the gallbladder fundus but was not able to place a grasper across the gallbladder fundus due to the noncompliant wall of the severely chronically inflamed gallbladder. Still, I sought cephalad retraction by keeping the jaws of my grasper open and gently applying steady upward pressure. I then proceeded to take down numerous other omental adhesions and stopped several mesenteric bleeding events with my laparoscopic LigaSure. Ultimately I was able to come down to what I believed represented the region of the gallbladder neck, but quickly encountered further dense inflammatory changes that did not permit dissection of the hepatocystic triangle and I was in no way able to identify either the cystic duct or the cystic artery. Upon reaching this observation I called my partner to the operating room to elicit their opinion and they confirmed that they would recommend proceeding with a subtotal cholecystectomy. Using energized laparoscopic manuela the anterior wall of the gallbladder was carefully opened. The wall was exceptionally thick and entry to the gallbladder resulted in immediate production of clear hydrops fluid. Then began a combination of extracting large gallstones and setting them aside to a designated location over the stomach for later retrieval while I looked to remove the remainder of the anterior gallbladder wall safely. The process of the wall removal ended up proceeding in a piecemeal fashion as cephalad retraction remained challenging. With the anterior wall removed I then performed a careful inspection, internally, of the gallbladder neck region and stone after stone was extracted from this opening manually using graspers. Occasionally I would use my laparoscopic suction licensed electrician device to irrigate into the opening and effectively float additional stones into view. Ultimately this process failed to yield any further evidence of stones. A laparoscopic Endo Catch bag was introduced the peritoneal cavity and I placed the gallbladder wall fragments and stones into this bag and sealed the bag. I then used Erbe the argon beam coagulation to ablate the back wall of the gallbladder. Lastly I placed a 15 [place]er round Bridger drain into the peritoneal cavity via the patient's right lateralmost 5 mm port site. Internally the drain was placed adjacent to the inferior margin of the liver and was secured at the skin with a 2-0 nylon suture. Hemostasis was again confirmed. Pneumoperitoneum was evacuated and the fascia of the 12 mm port site/umbilical hernia was closed with #1Vicryl in a [id number] fashion. A total of 30 mL of anesthetic was injected at the port sites for postoperative pain control. The skin of each port site was then closed in subcuticular fashion using 4-0 Monocryl (with additional tacking of the umbilical skin to the underlying fascia at the umbilical closure). Steri-Strips and bandages were applied as dressings at the 5 mm port site while Telfa gauze and Tegaderm dressing was used at the umbilical closure. Our right upper quadrant drain was connected to bulb suction. Patient tolerated the procedure well without any apparent complications. On emergence from their anesthetic the patient was taken to PACU for ongoing recovery. Surgical Findings: ? Gallbladder hydrops ? 20 gallstones ? No discernible plane between the gallbladder neck and the underside of the gallbladder to try to recreate the hepatocystic triangle and critical view of safety Complications Complications: No Admit VTE Documentation VTE Mechan Device Prophylaxis: SCD's
--- NOTE | 2025-03-17 16:07 | PCM.POST.ANE ---
Anesthesia: Postop Eval I Current Vital Signs Temperature: 97.2 F Pulse Rate: 77 Blood Pressure: 154/100 Respiratory Rate: 16 Pulse Ox: 98 Assessment Airway patent: Yes Spontaneous unlabored respirations: Yes nausea: No Vomiting: No Anesthesia Complication: No Fluid Hydration Crystalloid volume administer (ml): 200 Total IV fluid infused: 200 Progress Note Anesthesia document: Postop Eval 1 completed: Yes
--- NOTE | 2025-03-17 16:38 | POSTOPAN2_ITS ---
Anesthesia Postop Eval I Sum Postop Eval Completion status Anesthesia document: Postop Eval 1 completed: Yes Anesthesia Postop Eval I Summary Anesthesia Postop Eval I Summary: Anesthesia Postop Eval I: Assessment Summary Airway patent Yes 03/17/25 16:38 SAT ACT INSTRUCTOR.[email or web address] Spontaneous unlabored Yes 03/17/25 16:38 SAT ACT INSTRUCTOR.CSIR respirations Mental status nausea No 03/17/25 16:38 SAT ACT INSTRUCTOR.CSIR Vomiting No 03/17/25 16:38 SAT ACT INSTRUCTOR.CSIR Anesthesia Postop Eval I: Fluid Summary Crystalloid volume administer 200 03/17/25 16:38 SAT ACT INSTRUCTOR.CSIR (ml) Colloids volume administered ( ml) Blood Product volume administered (ml) Total IV fluid infused 200 03/17/25 16:38 SAT ACT INSTRUCTOR.CSIR Anesthesia Postop Eval I: Summary Notes Anesthesia Complication No 03/17/25 16:38 SAT ACT INSTRUCTOR.CSIR Anesthesia Complication Comment: Post-operative progress note Anesthesia: Postop Eval II Evaluation Mental status: Awake Pain Level: 1 nausea: No Vomiting: No
--- NOTE | 2025-03-17 16:38 | PCM.POSTANE2 ---
Anesthesia Postop Eval I Sum Postop Eval Completion status Anesthesia document: Postop Eval 1 completed: Yes Anesthesia Postop Eval I Summary Anesthesia Postop Eval I Summary: Anesthesia Postop Eval I: Assessment Summary Airway patent Yes 03/17/25 16:38 [email or web address] Spontaneous unlabored Yes 03/17/25 16:38 ENOLOGIST.[email or web address] respirations Mental status nausea No 03/17/25 16:38 ENOLOGIST.CSIR Vomiting No 03/17/25 16:38 [email or web address].[email or web address] Anesthesia Postop Eval I: Fluid Summary Crystalloid volume administer 200 03/17/25 16:38 [email or web address].CSIR (ml) Colloids volume administered ( ml) Blood Product volume administered (ml) Total IV fluid infused 200 03/17/25 16:38 [email or web address].CSIR Anesthesia Postop Eval I: Summary Notes Anesthesia Complication No 03/17/25 16:38 [email or web address].CSIR Anesthesia Complication Comment: Post-operative progress note Anesthesia: Postop Eval II Evaluation Mental status: Awake Pain Level: 1 nausea: No Vomiting: No
--- NOTE | 2025-03-17 16:53 | PCM.POST.ANE ---
Anesthesia: Postop Eval I Current Vital Signs Temperature: 97.2 F Pulse Rate: 78 Blood Pressure: 146/102 Respiratory Rate: 16 Pulse Ox: 95 Oxygen Delivery Method: Room Air Assessment Airway patent: Yes Spontaneous unlabored respirations: Yes Mental status: Awake nausea: No Vomiting: No Anesthesia Complication: No Fluid Hydration Crystalloid volume administer (ml): 2,000 Total IV fluid infused: 2,000 Progress Note Anesthesia document: Postop Eval 1 completed: Yes
[2025-03-17] MEDS: 0.9% Normal Saline (1000mL) 1,000 ML 125 ML IV (17:54)
--- OUTSIDE RECORDS SUMMARY | 2025-03-17 20:32 | XMS RPT_ITS | CCD ---
Author Organization [facility] Care Team Providers Care Health Companion Name Role Phone LORSON MANAGER TARGET-CAR RENTAL CLERK, SHIRA Primary Care Physician SWANSIGER MANAGER TARGET-CAR RENTAL CLERK, CAYLA Griffiths Attending U navailable LORSON MANAGER TARGET-CAR RENTAL CLERK, [place] Primary Care Unavail able SWANSIGER MANAGER TARGET-CAR RENTAL CLERK, CAYLA Griffiths Attending U navailable LORSON MANAGER TARGET-CAR RENTAL CLERK, [place] Primary Care Unavail able LORSON MANAGER TARGET-CAR RENTAL CLERK, SHIRA Attending Unavail able LORSON MANAGER TARGET-CAR RENTAL CLERK, [place] Primary Care Unavail able SWANSIGER MANAGER TARGET-CAR RENTAL CLERK, CAYLA Griffiths Attending U navailable LORSON MANAGER TARGET-CAR RENTAL CLERK, [place] Primary Care Unavail able LORSON MANAGER TARGET-CAR RENTAL CLERK, [place] Primary Care Unavail able SWANSIGER MANAGER TARGET-CAR RENTAL CLERK, CAYLA Griffiths Attending U navailable SEFFENS MANAGER TARGET-CAR RENTAL CLERK, VANGIE Attending Unavai lable LORSON MANAGER TARGET-CAR RENTAL CLERK, [place] Primary [facility] Unavail able Lorson RESIDENCE HALL DIRECTOR-C, Ralph Primary Care Provider Dr. Rod Ross DO Emergency Provider [phone] Paiz DO, Dr. Ann Admit Provider Unavail able Dr. Seth Paiz DO Other Provider Unavail able Dr. Edwina Kimball DO Attending Provider Dr. Cruz Arciniega DO Other Provider Dr. Seth Paiz DO Referring Provider Unav ailDr. Denys Suarez DO Attending Provider Dr. Jose Lubin MD Attending Provider Dr. Jose Lubin MD Referring Provider Dr. Cruz Arcniiega DO Attending Provider Jigar DO, Dr. Bland Other Provider L[place]on RESIDENCE HALL DIRECTOR-C, Shira Referring Provider [phone] Hu CEVALLOS, Dr. Maya Attending Provider Hu CEVALLOS, Dr. Maya Referring Provider Olaf NAVARRO, Dr. Mcfarlane Other Provider Holly NAVARRO, Dr. Davey Emergency Provider Primitivo NAVARRO, Dr. Arroyo Admit Provider [phone] Olaf NAVARRO, Dr. Mcfarlane Referring Provider Navid CEVALLOS, Dr. Lyon Other Provider Irina CEVALLOS, Dr. Coleman Other Provider Hu CEVALLOS, Dr. Maya Other Provider Navid CEVALLOS, Dr. Lyon Attending Provider de Emil NAVARRO, Dr. Ann Referring Provider Unav ailable Friend , Dr. Mcfarlane Attending Provider Amee CEVALLOS, Dr. Garcia Attending Provider Khang RESIDENCE HALL DIRECTOR-C, Cayla Attending Provider Khang RESIDENCE HALL DIRECTOR-C, Cayla Referring Provider SANDIE MANAGER TARGET-CAR RENTAL CLERK, CAYLA Griffiths Attending U navailable LORSON MANAGER TARGET-CAR RENTAL CLERK, [place] Primary Care Unavail able SANDIE MANAGER TARGET-CAR RENTAL CLERK, CAYLA Griffiths Attending U navailable LORSON MANAGER TARGET-CAR RENTAL CLERK, [place] Primary Care Unavail able MICHENER MANAGER TARGET-CAR RENTAL CLERK, MICHELA Griffiths Attending Unav ailable LORSON MANAGER TARGET-CAR RENTAL CLERK, [place] Primary Care Unavail able Lorson RESIDENCE HALL DIRECTOR-C, Ralph Primary Care Provider [phone] John CEVALLOS, Dr. Vasquez Attending Provider John CEVALLOS, Dr. Vasquez Referring Provider Juana RESIDENCE HALL DIRECTOR-C, Shira Referring Provider [phone] Olaf NAVARRO, Dr. Mcfarlane Attending Provider Dr. Cruz Arciniega DO Other Provider [phone] Hu CEVALLOS, Dr. Maya Attending Provider Hu CEVALLOS, Dr. Maya Referring Provider [phone] Jonelle RESIDENCE HALL DIRECTOR-C, Michela Aye Attending Provider Unava ilable Michener RESIDENCE HALL DIRECTOR-C, Michela K Referring Provider Unava ilable Lorson RESIDENCE HALL DIRECTOR, [facility] Unavailable Cayla Quiñonez Referring Unavailable Cayla Quiñonez Attending Unavailable Michener RESIDENCE HALL DIRECTOR, Michela Aye Referring Unavailabl e Lorson RESIDENCE HALL DIRECTOR, [facility] Unavailable Michener RESIDENCE HALL DIRECTOR, Michela K Attending Unavailabl e Lorson RESIDENCE HALL DIRECTOR, [facility] Unavailable Francesco Lui Referring Unavailable Francesco Lui Attending Unavailable Cruz Arciniega Attending Unavailable Seth Paiz Admitting Unavailable Lorson RESIDENCE HALL DIRECTOR, [facility] Unavailable Seth Paiz Consulting Unavailable Cruz Arciniega Consulting Unavailable Camron Shoemaker Attending Unavailable Camron Shoemaker Referring Unavailable [place]on RESIDENCE HALL DIRECTOR, [facility] Unavailable Gray López Consulting Unavailable Denys Babin Attending Unavailable Seth Paiz Referring Unavailable [place] RESIDENCE HALL DIRECTOR, [facility] Unavailable Edwina Kimball Attending Unavailable Seth Paiz Admitting Unavailable [place]on RESIDENCE HALL DIRECTOR, [facility] Unavailable Seth Paiz Consulting Unavailable Cruz Arciniega Consulting Unavailable Cruz Arciniega Admitting Unavailable Cruz Arciniega Consulting Unavailable L[place]on RESIDENCE HALL DIRECTOR, [facility] Unavailable Francesco Lui Attending Unavailable Camron Shoemaker Consulting Unavailable Jared Arevalo Consulting Unavailable Denys Babin Attending Unavailable Cayla Quiñonez Consulting Unavailable [place]on RESIDENCE HALL DIRECTOR, [facility] Unavailable Lorson RESIDENCE HALL DIRECTOR, Ralph Referring Unavailable [place] RESIDENCE HALL DIRECTOR, [facility] Unavailable Cayla Quiñonez Attending Unavailable L[place]on RESIDENCE HALL DIRECTOR, Ralph Referring Unavailable Primitivo Cruz Admitting Unavailable Primitivo Cruz Consulting Unavailable [place] RESIDENCE HALL DIRECTOR, [facility] Unavailable Francesco Lui Attending Unavailable Navid, Camron Consulting Unavailable Irina, Jared Consulting Unavailable Francesco Lui Consulting Unavailable Edwina Kimball Attending Unavailable Edwina Kimball Consulting Unavailable Camron Shoemaker Referring Unavailable Camron Redd Attending Unavailable L[place]on RESIDENCE HALL DIRECTOR, [facility] Unavailable [place]on RESIDENCE HALL DIRECTOR, [facility] Unavailable Pedro Lopez Referring Unavailable Pedro Lopez Attending Unavailable L[place]on RESIDENCE HALL DIRECTOR, Ralph Referring Unavailable Lorarsenio RESIDENCE HALL DIRECTOR, [facility] Unavailable Francesco Lui Attending Unavailable Camron Shoemaker Attending Unavailable Ameliason RESIDENCE HALL DIRECTOR, [facility] Unavailable Lorson RESIDENCE HALL DIRECTOR, Ralph Referring Unavailable [place]on RESIDENCE HALL DIRECTOR, [facility] Unavailable Jose Lubin Attending Unavailable Cheo Lubinl Referring Unavailable FriendDenys Referring Unavailable Juana RESIDENCE HALL DIRECTOR, [facility] Unavailable Jose Lubin Attending Unavailable Denys Babin Attending Unavailable Seth Paiz Referring Unavailable Friend, Denys Attending Unavailable [place]on RESIDENCE HALL DIRECTOR, [facility] Unavailable Lorson RESIDENCE HALL DIRECTOR, Ralph Referring Unavailable Friend, Denys Attending Unavailable Friend, Ednys Consulting Unavailable Ameliason RESIDENCE HALL DIRECTOR, [facility] Unavailable Lorson RESIDENCE HALL DIRECTOR, [place] Referring Unavailable Jonelle RESIDENCE HALL DIRECTOR, Michela Griffiths Referring Unavailabl e Jonelle RESIDENCE HALL DIRECTOR, Michela Griffiths Attending Unavailabl e Ameliason RESIDENCE HALL DIRECTOR, [facility] Unavailable Friend, Denys Attending Unavailable Francesco Lui Referring Unavailable Camron Shoemaker Attending Unavailable Cruz Arciniega Attending Unavailable Seth Paiz Attending Unavailable Medications Current Medications Medication Drug Class(es) Dates Sig (Normalized) Sig (Original) [place] (Nk) (2 sources) Start: 12-31-2024 [place] (Nk) A ctive December 31, 2024 12:00am Completed/Discontinued Medications Medication Drug Class(es) Dates Sig (Normalized) Sig (Original) amoxicillin 875 mg / clavulanate 125 mg oral tablet (3 sources) Penicillin-class Antibacterial Start: 12-16-2024 End: 12-31-2024 Amoxicillin-Pot Clavulanate 875-125 mg tablet Discontinued 1 {tbl} PO TWICE A DAY 14 December 16, 2024 12:00am December 31, 2024 10:06am Problems Active Problems Problem Classification Problem Date Documented Date Episodic/Chronic Bacterial infection; unspecified site (6 sources) Bacteremia caused by Gram-negative bacteria; Translations: [Bacteremia] 12-16-2024 Episodic Biliary tract disease (20 sources) Common bile duct calculus; Translations: [Calculus of bile duct without cholangitis or cholecystitis without obstruction] Onset: 09-15-2024 Episodic Comment on above: Patient is a 39-year -old male with 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 With this recurrence and treatment for cholangitis it was strongly recommended that he undergo cholecystectomy before any additional consideration is given to removing his current common bile duct stent. Patient was thus visited while an inpatient and this conversation was started. Overall, patient and his spouse confirm understanding of that discussion. However, as the conversation continues Mr. Connors expresses reservations about removing his gallbladder if it could at all be certain that he no longer has gallstones and then as well about undergoing a liver biopsy. I tried to stress that through my experience with choledocholithiasis and then also bringing those experiences of Drs. Lui and Dr. Babin to bear we all found the extreme elevation of his bilirubin (at his initial presentation) to be atypical of this condition as an isolated cause for hyperbilirubinemia. With this deviation from the norm in mind that we recommended undergoing liver biopsy. In fact, patient was given an order for a liver biopsy following his first bout of choledocholithiasis but opted against this recommendation. I discussed that this could be manifestations of a congenital issue or a post congenital inflammatory issue that could be a marker for risk of other disease processes which might be avoided if action is taken upfront. Patient and his seem to confirm understanding. 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 I clarified that I recommend proceeding for surgery as soon as possible given his experience to date but would work with their schedule. I did stress that I would recommend no lifting greater than 10 pounds for 5 weeks immediately postop and then a gradual return to activity thereafter. 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, 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 Other liver diseases (1 source) Toxic liver disease, unspecified; 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, unspecified] Onset: 5 Chronic Other liver diseases (16 sources) Jaundice; Translations: [Unspecified jaundice] 2024 Episodic Other liver diseases (8 sources) Elevated liver enzymes level; Translations: [High liver transaminase level] 12-14-2024 Episodic Other liver diseases (2 sources) ALT (SGPT) level raised; Translations: [High alanine aminotransferase (ALT) level] 01-03-2025 Episodic Other liver diseases (2 sources) Unspecified jaundice; Translations: [Unspecified jaundice] Onset: Episodic Other nutritional; endocrine; and metabolic disorders (20 sources) Hyperbilirubinemia; 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 Unclassified (1 source) Elevation of levels of liver transaminase levels; Translations: [Elevation of levels of liver transaminase levels] Onset: 5 Past or Other Problems Problem Classification Problem Date Documented Da te Episodic/Chronic Other nutritional; endocrine; and metabolic disorders (1 source) Overweight; Translations: [Overweight] Onset: 09-14-2024 Episodic Results Test Name Value Interpretation Reference Range Facility 12 Lead EKGon 03-08-2025 12 Lead EKG Normal [facility] Liver Profileon 03-08-2025 Albumin [Mass/Vol] 4.4 g/dL Normal 3.5-5.0 [facility] Comment on above: Performed By: #### L 500.3400 ####[facility] [address] [place], [address] ALK PHOS 73 U/L Normal 40-129 [facility] Comment on above: Performed By: #### L 500.3400 ####[facility] [address] [place], [address] ALT [Catalytic activity/Vol] 38 U/L Normal <=46 [facility] Comment on above: Performed By: #### L 500.3400 ####[facility] [address] [place], [address] AST [Catalytic activity/Vol] 33 U/L Normal <=37 [facility] Comment on above: Performed By: #### L 500.3400 ####[facility] [address] [place], [address] Bilirubin [Mass/Vol] 0.58 mg/dL Normal 0.00-1.30 [facility] Comment on above: Performed By: #### L 500.3400 ####[facility] [address] [place], [address] Bilirubin.direct [Mass/Vol] 0.22 mg/dL Normal 0.00-0.30 [facility] Comment on above: Performed By: #### L 500.3400 ####[facility] [address] [place], [address] Globulin (S) [Mass/Vol] 2.7 g/dL Normal 2.2-4.2 [facility] Comment on above: Performed By: #### L 500.3400 ####[facility] [address] [place], [address] T PROT 7.1 g/dL Normal 5.9-8.4 [facility] Comment on above: Performed By: #### L 500.3400 ####[facility] [address] [place], [address] MR/PAT.ANEon 03-08-2025 MR/PAT.ANE Normal [facility] MR/PAT.ANE Normal [facility] Hepatobilliary Imagingon Hepatobilliary Imaging Normal [facility] Misc.on 01-09-2025 [facility] Misc. COMMENT Normal . [facility] Comment on above: Order Comment: [id number] 5APOLIPOPROTEIN B Result Comment: Test Ordered: [id number] Apolipoprotein BApolipoprotein B 122 [H ] mg/dL Reference Range: <90 Desirable < 90 Borderline High 90 - 99 High 100 - 130 Very High >130 ASCVD RISK THERAPEUTIC TARGET CATEGORY APO B (mg/dL) Very High Risk <80 (if extreme risk <70) High Risk <90 Moderate Risk <90Performed at: [address] [id number] Director: Kelly Jansen MD, Phone: [phone] at: [address] [id number] Director: Raj Dick PhD, Phone: [phone] Performed By: #### L 501.1400, L300.4700, L500.4100, L803.0600, L3410.9998, L3400.4600, L501.6710, L3100.7870 ####[facility] [address] [place], [place], [phone] CRP, High Sensitivity [id number] on 01-07-2025 CRP, HIGH SENS 2.61 mg/L Normal 0.00-3.00 [facility] Comment on above: Result Comment: Rela tive Risk for Future Cardiovascular Event Low <1.00 Average 1.00 - 3.00 High >3.00 Performed By: #### L 501.1400, L300.4700, L500.4100, L803.0600, L3410.9998, L3400.4600, L501.6710, L3100.7870 ####[facility] [address] [place], [place], [phone] L803.0600on 01-07-2025 HOMOCYSTEINE 9.0 umol/L Normal 0.0-14.5 [facility] Comment on above: Result Comment: Perf ormed at: [facility] [place], [place] [id number] Director: Raj Dick PhD, Phone: [phone] Performed By: #### L 501.1400, L300.4700, L500.4100, L803.0600, L3410.9998, L3400.4600, L501.6710, L3100.7870 ####[facility] [address] [place], [address] [facility] Misc.on 01-07-2025 [facility] Misc. COMMENT Normal . [facility] Comment on above: Order Comment: [id number] 7CRP QUANT Result Comment: Test Ordered: [id number] C-Reactive Protein, QuantC-Reactive Protein, Quant 2 mg/L CB Reference Range: 0-10Performed at: [place] [id number] [place], [place] [id number] Director: Raj Dick PhD, Phone: [phone] Performed By: #### L 3410.9998 ####[facility] [address] [place], [address] Lipoprotein Aon 01-07-2025 Lipoprotein a [Moles/Vol] 16.5 nmol/L Normal <75.0 [facility] Comment on above: Result Comment: Note : Values greater than or equal to 75.0 nmol/L may indicate an independent risk factor for CHD, but must be evaluated with caution when applied to non- populations due to the influence of genetic factors on Lp(a) across ethnicities.Performed at: [facility], [place] [id number] Director: Raj Dick PhD, Phone: [phone] Performed By: #### L 501.1400, L300.4700, L500.4100, L803.0600, L3410.9998, L3400.4600, L501.6710, L3100.7870 ####[facility] [address] [place], [place], [id number] C-reactive protein measureme nt by high sensitivity methodOrdered By: Michela Sal on 01-05-2025 C-reactive protein measurement by high sensitivity method 2.61 mg/L 0.00-3.00 [facility] Comment on above: Relative Risk for Fu ture Cardiovascular Event Low <1.00 Average 1.00 - 3.00 High >3.00 CRPon 01-05-2025 C-REACTIVE PROT < 3.00 Normal 0.0-3.0 [facility] Comment on above: Performed By: #### L 501.1400, L300.4700, L500.4100, L803.0600, L3410.9998, L3400.4600, L501.6710, L3100.7870 ####[facility] [address] [place], [address] Calculated very low density lipoprotein (VLDL) cholesterol measurementOrdered By: Michela Sal on 01-05-2025 Calculated very low density lipoprotein (VLDL) cholesterol measurement 21 mg/dL 5-40 [facility] Fibrinogenon 01-05-2025 FIBRINOGEN 378 mg/dl Normal 203-444 [facility] Comment on above: Performed By: #### L 501.1400, L300.4700, L500.4100, L803.0600, L3410.9998, L3400.4600, L501.6710, L3100.7870 ####[facility] [address] [place], [place], [id number] LDL calc ser/plasOrdered By: Michela Sal on 01-05-2025 Cholesterol in LDL [Mass/Vol] 138 mg/dL Normal [facility] Comment on above: Auvyxkhyub=788-711 m g/dL & Higher Fntw=196 mg/dL or greater Result Comment: Bord icsnuu=171-991 mg/dL Higher Xids=694 mg/dL or greater Performed By: #### L 501.1400, L300.4700, L500.4100, L803.0600, L3410.9998, L3400.4600, L501.6710, L3100.7870 ####[facility] [address] [place], [place], [id number] Lipid Profileon 01-05-2025 CHOL:HDL 4.03 Normal [facility] Comment on above: Performed By: #### L 501.1400, L300.4700, L500.4100, L803.0600, L3410.9998, L3400.4600, L501.6710, L3100.7870 ####[facility] [address] [place], [address] Cholesterol in VLDL [Mass/Vol] 21 mg/dL Normal 5-40 [facility] Comment on above: Performed By: #### L 501.1400, L300.4700, L500.4100, L803.0600, L3410.9998, L3400.4600, L501.6710, L3100.7870 ####[facility] [address] [place], [place], [id number] Lipoprotein a [Mass/Vol]Orde red By: Michela Sal on 01-05-2025 Lipoprotein a [Moles/Vol] 16.5 nmol/L <75.0 [facility] Comment on above: Note: Values greater than or equal to 75.0 nmol/L may indicate an independent risk factor for CHD, but must be evaluated with caution when applied to non- populations due to the influence of genetic factors on Lp(a) across ethnicities.Performed at: [facility] [address] [id number] Director: Raj Dick PhD, Phone: [phone] Screening total cholesterol/ high density lipoprotein (HDL) cholesterol ratioOrdered By: Michela Sal on 01-05-2025 Cholesterol.total/Cho lesterol in HDL [Mass ratio] 4.03 {ratio} [facility] Serum or plasma C reactive p rotein measurement (mass/volume)Ordered By: Michela Sal on 01-05-2025 CRP [Mass/Vol] mg/L 0.0-3.0 [facility] Serum or plasma cholesterol in HDL measurement (mass/volume)Ordered By: Michela Sal on 01-05-2025 Cholesterol in HDL [Mass/Vol] 52 mg/dL Normal [facility] Comment on above: National Cholesterol Education Program (NCEP) guidelines:<40 mg/dL: Low HDL-cholesterol (major risk factor for CHD)>= 60 mg/dL: High HDL-cholesterol (negative risk factor for CHD)HDL-cholesterol is affected by a number of factors, e.g. smoking, exercise, hormones, sex and age. Result Comment: Poppy onal Cholesterol Education Program (NCEP) guidelines:<40 mg/dL: Low HDL-cholesterol (major risk factor for CHD)>= 60 mg/dL: High HDL-cholesterol (negative risk factor forCHD)HDL-cholesterol is affected by a number of factors, e.g.smoking, exercise, hormones, sex and age. Performed By: #### L 501.1400, L300.4700, L500.4100, L803.0600, L3410.9998, L3400.4600, L501.6710, L3100.7870 ####[facility] [address] [place], [place], [id number] Serum or plasma cholesterol measurement (mass/volume)Ordered By: Michela Sal on 01-05-2025 Cholesterol [Mass/Vol] 211 mg/dL High <=200 [facility] Comment on above: Cholesterol level, D esirable <200 mg/dLBorderline high cholesterol 200-239 mg/dLHigh cholesterol >=240 mg/dLRecommendations of the NCEP Adult Treatment Panel for the following risk-cutoff thresholds for the [place] population. Result Comment: Chol esterol level, Desirable <200 mg/dLBorderline high cholesterol 200-239 mg/dLHigh cholesterol >=240 mg/dLRecommendations of the NCEP Adult Treatment Panel for thefollowing risk-cutoff thresholds for the [place] Americanpopulation. Performed By: #### L 501.1400, L300.4700, L500.4100, L803.0600, L3410.9998, L3400.4600, L501.6710, L3100.7870 ####[facility] [address] [place], [place], [address] Serum or plasma uric acid me asurement (mass/volume)Ordered By: Michela Sal on 01-05-2025 Urate [Mass/Vol] 5.1 mg/dL 3.5-7.2 [facility] Comment on above: The drugs N-Acetylcy steine and Metamizole may falsely depress this assay. Triglycerides measurementOrd ered By: Michela Sal on 01-05-2025 Triglyceride [Mass/Vol] 103 mg/dL Normal [facility] Comment on above: The drugs N-Acetylcy steine and Metamizole may falsely depress this assay. Normal range: <150 mg/dLBorderline High: 150-199 mg/dLHigh: 200-499 mg/dLVery High: >500 mg/dL Result Comment: The drugs N-Acetylcysteine and Metamizole may falselydepress this assay.Normal range: <150 mg/dLBorderline High: 150-199 mg/dLHigh: 200-499 mg/dLVery High: >500 mg/dL Performed By: #### L 501.1400, L300.4700, L500.4100, L803.0600, L3410.9998, L3400.4600, L501.6710, L3100.7870 ####[facility] [address] [place], [address] Uric Acidon 01-05-2025 URIC 5.1 mg/dL Normal 3.5-7.2 [facility] Comment on above: Result Comment: The drugs N-Acetylcysteine and Metamizole may falselydepress this assay. Performed By: #### L 501.1400, L300.4700, L500.4100, L803.0600, L3410.9998, L3400.4600, L501.6710, L3100.7870 ####[facility] [address] [place], [place], [id number] Bilirubin directOrdered By: Cayla Quiñonez on 12-31-2024 Bilirubin.direct [Mass/Vol] 0.42 mg/dL High 0.00-0.30 [facility] Bilirubin, totalOrdered By: Cayla Quiñonez on 12-31-2024 Bilirubin [Mass/Vol] 0.64 mg/dL 0.00-1.30 [facility] Gastroenterology Visit Repor ton 12-31-2024 Gastroenterology Visit Report Normal [facility] Laboratory - Chemistry and C hemistry - challengeOrdered By: Cayla Quiñonez on 12-31-2024 AST [Catalytic activity/Vol] 38 U/L <38 [facility] Liver Profileon 12-31-2024 Albumin [Mass/Vol] 4.0 g/dL Normal 3.5-5.0 [facility] Comment on above: Performed By: #### L 500.3400 ####[facility] [address] [place], [address] ALK PHOS 112 U/L Normal 40-129 [facility] Comment on above: Performed By: #### L 500.3400 ####[facility] [address] [place], [address] ALT [Catalytic activity/Vol] 64 U/L High <=46 [facility] Comment on above: Performed By: #### L 500.3400 ####[facility] [address] [place], [address] AST [Catalytic activity/Vol] 38 U/L Normal <=37 [facility] Comment on above: Performed By: #### L 500.3400 ####[facility] [address] [place], [address] Bilirubin [Mass/Vol] 0.64 mg/dL Normal 0.00-1.30 [facility] Comment on above: Performed By: #### L 500.3400 ####[facility] [address] [place], [address] Bilirubin.direct [Mass/Vol] 0.42 mg/dL High 0.00-0.30 [facility] Comment on above: Performed By: #### L 500.3400 ####[facility] [address] [place], [place], [address] Globulin (S) [Mass/Vol] 3.1 g/dL Normal 2.2-4.2 [facility] Comment on above: Performed By: #### L 500.3400 ####[facility] [address] [place], [place], [address] T PROT 7.0 g/dL Normal 5.9-8.4 [facility] Comment on above: Performed By: #### L 500.3400 ####[facility] [address] [place], [place], [address] Serum globulin measurementOr dered By: Cayla Quiñonez on 12-31-2024 Globulin (S) [Mass/Vol] 3.1 g/dL 2.2-4.2 [facility] Serum or plasma alanine mays otransferase (ALT) measurementOrdered By: Cayla Quiñonez on 12-31-2024 ALT [Catalytic activity/Vol] 64 U/L High <47 [facility] Serum or plasma albumin marquise urement (mass/volume)Ordered By: Cayla Quiñonez on 12-31-2024 Albumin [Mass/Vol] 4.0 g/dL 3.5-5.0 [facility] Serum or plasma alkaline daniel sphatase measurementOrdered By: Cayla Quiñonez on 12-31-2024 ALP [Catalytic activity/Vol] 112 U/L 40-129 [facility] Surgery Visit Reporton 12-31 Surgery Visit Report Normal [facility] Total proteinOrdered By: Vanessa Quiñonez on 12-31-2024 Protein [Mass/Vol] 7.0 g/dL 5.9-8.4 [facility] Culture, Blood (WB)on 2024 CUB Normal [facility] Comment on above: Performed By: #### M 200.1000 ####[facility] [address] [place], [address] Culture, Blood (WB)on 2024 CUB Normal [facility] Comment on above: Performed By: #### M 200.1000 ####[facility] [address] [place], [address] Liver Profileon 12-18-2024 ALB Normal 3.5-5.0 [facility] Comment on above: Result Comment: Canc elled via OM: Order cancelled - Patient discharged Performed By: #### L 500.3400 ####[facility] [address] [place], [address] ALK PHOS Normal 40-129 [facility] Comment on above: Result Comment: Canc elled via OM: Order cancelled - Patient discharged Performed By: #### L 500.3400 ####[facility] [address] [place], [address] ALT Normal <=46 [facility] Comment on above: Result Comment: Canc elled via OM: Order cancelled - Patient discharged Performed By: #### L 500.3400 ####[facility] [address] [place], [address] AST Normal <=37 [facility] Comment on above: Result Comment: Canc elled via OM: Order cancelled - Patient discharged Performed By: #### L 500.3400 ####[facility] [address] [place], [address] D BILI Normal 0.00-0.30 [facility] Comment on above: Result Comment: Canc elled via OM: Order cancelled - Patient discharged Performed By: #### L 500.3400 ####[facility] [address] [place], [address] T BILI Normal 0.00-1.30 [facility] Comment on above: Result Comment: Canc elled via OM: Order cancelled - Patient discharged Performed By: #### L 500.3400 ####[facility] [address] [place], [address] T PROT Normal 5.9-8.4 [facility] Comment on above: Result Comment: Canc elled via OM: Order cancelled - Patient discharged Performed By: #### L 500.3400 ####[facility] [address] [place], [address] CBC W/Diff, Automatedon 03-2 0-2024 Absolute Neut Normal 2.0-7.7 [facility] Comment on above: Result Comment: Canc elled via OM: Order cancelled - Patient discharged Performed By: #### L 500.3400, L100.0100 ####[facility] [address] [place], [address] HCT Normal 40-54 [facility] Comment on above: Result Comment: Canc elled via OM: Order cancelled - Patient discharged Performed By: #### L 500.3400, L100.0100 ####[facility] [address] [place], [address] HGB Normal 13.0-16.5 [facility] Comment on above: Result Comment: Canc elled via OM: Order cancelled - Patient discharged Performed By: #### L 500.3400, L100.0100 ####[facility] [address] [place], [address] MCH Normal 27.0-32.0 [facility] Comment on above: Result Comment: Canc elled via OM: Order cancelled - Patient discharged Performed By: #### L 500.3400, L100.0100 ####[facility] [address] [place], [address] MCHC Normal 32-36 [facility] Comment on above: Result Comment: Canc elled via OM: Order cancelled - Patient discharged Performed By: #### L 500.3400, L100.0100 ####[facility] [address] [place], [address] MCV Normal 80-94 [facility] Comment on above: Result Comment: Canc elled via OM: Order cancelled - Patient discharged Performed By: #### L 500.3400, L100.0100 ####[facility] [address] [place], [address] NEUT% Normal 47-70 [facility] Comment on above: Result Comment: Canc elled via OM: Order cancelled - Patient discharged Performed By: #### L 500.3400, L100.0100 ####[facility] [address] [place], [address] PLT Normal 150-450 [facility] Comment on above: Result Comment: Canc elled via OM: Order cancelled - Patient discharged Performed By: #### L 500.3400, L100.0100 ####[facility] [address] [place], [address] RBC Normal 4.6-6.2 [facility] Comment on above: Result Comment: Canc elled via OM: Order cancelled - Patient discharged Performed By: #### L 500.3400, L100.0100 ####[facility] [address] [place], [address] RDW CV Normal 11.6-14.6 [facility] Comment on above: Result Comment: Canc elled via OM: Order cancelled - Patient discharged Performed By: #### L 500.3400, L100.0100 ####[facility] [address] [place], [address] RDW SD Normal 35.1-43.9 [facility] Comment on above: Result Comment: Canc elled via OM: Order cancelled - Patient discharged Performed By: #### L 500.3400, L100.0100 ####[facility] [address] [place], [address] WBC Normal 4.4-11.0 [facility] Comment on above: Result Comment: Canc elled via OM: Order cancelled - Patient discharged Performed By: #### L 500.3400, L100.0100 ####[facility] [address] [place], [address] L501.5101on 12-17-2024 GGTP 174 IU/L Abnormal 0-65 [facility] Comment on above: Result Comment: Perf ormed at: [facility] [address] [id number] Director: Raj Dick PhD, Phone: [phone] Performed By: #### L 501.5101 ####[facility] [address] [place], [address] Liver Profileon 12-17-2024 ALB Normal 3.5-5.0 [facility] Comment on above: Result Comment: Canc elled via OM: Order cancelled - Patient discharged Performed By: #### L 500.3400, L100.0100 ####[facility] [address] [place], [address] ALK PHOS Normal 40-129 [facility] Comment on above: Result Comment: Canc elled via OM: Order cancelled - Patient discharged Performed By: #### L 500.3400, L100.0100 ####[facility] [address] [place], [address] ALT Normal <=46 [facility] Comment on above: Result Comment: Canc elled via OM: Order cancelled - Patient discharged Performed By: #### L 500.3400, L100.0100 ####[facility] [address] [place], [address] AST Normal <=37 [facility] Comment on above: Result Comment: Canc elled via OM: Order cancelled - Patient discharged Performed By: #### L 500.3400, L100.0100 ####[facility] [address] [place], [address] D BILI Normal 0.00-0.30 [facility] Comment on above: Result Comment: Canc elled via OM: Order cancelled - Patient discharged Performed By: #### L 500.3400, L100.0100 ####[facility] [address] [place], [address] T BILI Normal 0.00-1.30 [facility] Comment on above: Result Comment: Canc elled via OM: Order cancelled - Patient discharged Performed By: #### L 500.3400, L100.0100 ####[facility] [address] [place], [address] T PROT Normal 5.9-8.4 [facility] Comment on above: Result Comment: Canc elled via OM: Order cancelled - Patient discharged Performed By: #### L 500.3400, L100.0100 ####[facility] [address] [place], [address] Absolute lymphocyte countOrd ered By: Francesco Lui on 12-16-2024 Lymphocytes Auto (Unsp spec) [#/Vol] 1.28 10*3/uL 0.83-4.51 [facility] Absolute neutrophil countOrd ered By: Francesco Lui on 12-16-2024 Neutrophils (Bld) [#/Vol] 3.7 10*3/uL 2.0-7.7 [facility] Anion gap in Serum or Plasma Ordered By: Francesco Lui on 12-16-2024 Anion gap [Moles/Vol] 10 mmol/L 5-15 [facility] Automated lymphocyte count a s percentage of total leukocytesOrdered By: Francesco Lui on 12-16-2024 Lymphocytes/100 WBC Auto (Unsp spec) 20.8 % 19-41 [facility] BUN/creatinine ratioOrdered By: Francesco Lui on 12-16-2024 Urea nitrogen/Creatinine [Mass ratio] 12.7 mg/mg 10-20 [facility] Basic Metabolic Profile (BMP )on 12-16-2024 BUN/CRE 12.7 RATIO Normal 10-20 [facility] Comment on above: Performed By: #### L 500.3400, L500.2500, L100.0100 ####[facility] [address] [place], [address] Calcium [Mass/Vol] 9.0 mg/dL Normal 7.6-11.0 [facility] Comment on above: Performed By: #### L 500.3400, L500.2500, L100.0100 ####[facility] [address] [place], [address] Chloride [Moles/Vol] 104 mmol/L Normal 98-108 [facility] Comment on above: Performed By: #### L 500.3400, L500.2500, L100.0100 ####[facility] [address] [place], [address] CO2 [Moles/Vol] 24.8 mmol/L Normal 21.0-32.0 [facility] Comment on above: Performed By: #### L 500.3400, L500.2500, L100.0100 ####[facility] [address] [place], [address] Creatinine [Mass/Vol] 1.06 mg/dL Normal 0.70-1.20 [facility] Comment on above: Performed By: #### L 500.3400, L500.2500, L100.0100 ####[facility] [address] [place], [address] ECRCL 105.07 ml/min Normal 50-250 [facility] Comment on above: Performed By: #### L 500.3400, L500.2500, L100.0100 ####[facility] [address] [place], [address] GAP 10 Normal 5-15 [facility] Comment on above: Performed By: #### L 500.3400, L500.2500, L100.0100 ####[facility] [address] [place], [address] GFR/1.73 sq M.predicted among non-blacks MDRD (S/P/Bld) [Vol rate/Area] 90 mL/min/{1.73_m2} Normal >60 [facility] Comment on above: Result Comment: mL/m in/1.73m2 CKD-EPI Creatinine Equation (2020) Performed By: #### L 500.3400, L500.2500, L100.0100 ####[facility] [address] [place], [address] Glucose [Mass/Vol] 85 mg/dL Normal 70-99 [facility] Comment on above: Performed By: #### L 500.3400, L500.2500, L100.0100 ####[facility] [address] [place], [address] Potassium [Moles/Vol] 4.0 mmol/L Normal 3.3-5.1 [facility] Comment on above: Performed By: #### L 500.3400, L500.2500, L100.0100 ####[facility] [address] [place], [address] Sodium [Moles/Vol] 139 mmol/L Normal 133-145 [facility] Comment on above: Performed By: #### L 500.3400, L500.2500, L100.0100 ####[facility] [address] [place], [address] Urea nitrogen [Mass/Vol] 14 mg/dL Normal 4-19 [facility] Comment on above: Performed By: #### L 500.3400, L500.2500, L100.0100 ####[facility] [address] [place], [address] Basophil percentageOrdered B y: Francesco Lui on 12-16-2024 Basophils/100 WBC (Bld) 0.8 % 0-1 [facility] Bilirubin directOrdered By: Francesco Lui on 12-16-2024 Bilirubin.direct [Mass/Vol] 1.88 mg/dL High 0.00-0.30 [facility] Bilirubin, totalOrdered By: Francesco Lui on 12-16-2024 Bilirubin [Mass/Vol] 2.75 mg/dL High 0.00-1.30 [facility] CBC W/Diff, Automatedon 11-28 Absolute Lymph 1.28 X10 3/uL Normal 0.83-4.51 [facility] Comment on above: Performed By: #### L 500.3400, L500.2500, L100.0100 ####[facility] [address] [place], [address] Absolute Neut 3.7 X10 3/uL Normal 2.0-7.7 [facility] Comment on above: Performed By: #### L 500.3400, L500.2500, L100.0100 ####[facility] [address] [place], [address] Basophils/100 WBC (Bld) 0.8 % Normal 0-1 [facility] Comment on above: Performed By: #### L 500.3400, L500.2500, L100.0100 ####[facility] [address] [place], [address] Eosinophils/100 WBC (Bld) 2.3 % Normal 0-5 [facility] Comment on above: Performed By: #### L 500.3400, L500.2500, L100.0100 ####[facility] [address] [place], [address] Erythrocyte distribution width (RBC) [Ratio] 13.0 % Normal 11.6-14.6 [facility] Comment on above: Performed By: #### L 500.3400, L500.2500, L100.0100 ####[facility] [address] [place], [address] Hematocrit (Bld) [Volume fraction] 39.8 % Low 40-54 [facility] Comment on above: Performed By: #### L 500.3400, L500.2500, L100.0100 ####[facility] [address] [place], [address] Hemoglobin (Bld) [Mass/Vol] 13.5 g/dL Normal 13.0-16.5 [facility] Comment on above: Performed By: #### L 500.3400, L500.2500, L100.0100 ####[facility] [address] [place], [address] IG% 1.600 High 0.0-0.9 [facility] Comment on above: Result Comment: IG% - Immature Granulocytes (promyelocytes, myelocytes andmetamyelocytes) > 1% indicates that a LEFT SHIFT is Present. Performed By: #### L 500.3400, L500.2500, L100.0100 ####[facility] [address] [place], [address] Lymphocytes/100 WBC (Bld) 20.8 % Normal 19-41 [facility] Comment on above: Performed By: #### L 500.3400, L500.2500, L100.0100 ####[facility] [address] [place], [address] MCH (RBC) [Entitic mass] 29.2 pg Normal 27.0-32.0 [facility] Comment on above: Performed By: #### L 500.3400, L500.2500, L100.0100 ####[facility] [address] [place], [address] MCHC (RBC) [Mass/Vol] 33.9 g/dL Normal 32-36 [facility] Comment on above: Performed By: #### L 500.3400, L500.2500, L100.0100 ####[facility] [address] [place], [address] MCV (RBC) [Entitic vol] 86.0 fL Normal 80-94 [facility] Comment on above: Performed By: #### L 500.3400, L500.2500, L100.0100 ####[facility] [address] [place], [address] Monocytes/100 WBC (Bld) 13.5 % High 0-10 [facility] Comment on above: Performed By: #### L 500.3400, L500.2500, L100.0100 ####[facility] [address] [place], [address] Neutrophils/100 WBC (Bld) 61.0 % Normal 47-70 [facility] Comment on above: Performed By: #### L 500.3400, L500.2500, L100.0100 ####[facility] [address] [place], [address] Nucleated RBC (Bld) [#/Vol] 0 10*3/uL Normal 0-5 [facility] Comment on above: Performed By: #### L 500.3400, L500.2500, L100.0100 ####[facility] [address] [place], [address] Platelet mean volume (Bld) [Entitic vol] 9.8 fL Normal 6.2-12.0 [facility] Comment on above: Performed By: #### L 500.3400, L500.2500, L100.0100 ####[facility] [address] [place], [address] Platelets (Bld) [#/Vol] 153 10*3/uL Normal 150-450 [facility] Comment on above: Performed By: #### L 500.3400, L500.2500, L100.0100 ####[facility] [address] [place], [address] RBC (Bld) [#/Vol] 4.63 10*6/uL Normal 4.6-6.2 [facility] Comment on above: Performed By: #### L 500.3400, L500.2500, L100.0100 ####[facility] [address] [place], [address] RDW SD 40.5 fl Normal 35.1-43.9 [facility] Comment on above: Performed By: #### L 500.3400, L500.2500, L100.0100 ####[facility] [address] [place], [address] WBC (Bld) [#/Vol] 6.1 10*3/uL Normal 4.4-11.0 [facility] Comment on above: Performed By: #### L 500.3400, L500.2500, L100.0100 ####[facility] [address] [place], [address] Carbon dioxide, total [Moles /volume] in Central venous bloodOrdered By: Francesco Lui on 12-16-2024 CO2 [Moles/Vol] 24.8 mmol/L 21.0-32.0 [facility] Chloride assayOrdered By: Gracie Lui on 12-16-2024 Chloride [Moles/Vol] 104 mmol/L 98-108 [facility] Consultation - Infectious Dx on 12-16-2024 Consultation - Infectious Dx Normal [facility] Consultation - Surgicalon Consultation - Surgical Normal [facility] Discharge Instructionon 11-28 Discharge Instruction Normal [facility] Eosinophil percentageOrdered By: Francesco Lui on 12-16-2024 Eosinophils/100 WBC (Bld) 2.3 % 0-5 [facility] Erythrocyte distribution wid th ratioOrdered By: Francesco Lui on 12-16-2024 Erythrocyte distribution width (RBC) [Ratio] 13.0 % 11.6-14.6 [facility] Erythrocyte distribution wid th standard deviationOrdered By: Francesco Lui on 12-16-2024 Erythrocyte distribution width (RBC) [Entitic vol] 40.5 fL 35.1-43.9 [facility] Erythrocyte distribution width (RBC) [Ratio] 40.5 fl 35.1-43.9 [facility] Estimation of creatinine alyson aranceOrdered By: Francesco Lui on 12-16-2024 Estimated Creatinine Clearance Calc 105.07 ml/min 50-250 [facility] GFR/1.73 sq M.predicted latrell g non-blacks MDRD (S/P/Bld) [Vol rate/Area]Ordered By: Francesco Lui on 12-16-2024 Estimated GFR (MDRD) Non-Af Amer 90 >60 [facility] Comment on above: mL/min/1.73m2 CKD-EP I Creatinine Equation (2020) Gamma glutamyl transferase ( GGT) measurementOrdered By: Francesco Lui on 12-16-2024 Amylase [Catalytic activity/Vol] 174 U/L High 0-65 [facility] Comment on above: Performed at: [facility] [place] [id number] Director: Raj Dick PhD, Phone: [phone] Glomerular filtration rate ( GFR) estimation/1.73 sq m using serum, plasma, or whole bOrdered By: Francesco Lui on 12-16-2024 GFR/1.73 sq M.predicted among non-blacks MDRD (S/P/Bld) [Vol rate/Area] 90 mL/min/{1.73_m2} >60 [facility] Comment on above: mL/min/1.73m2 CKD-EP I Creatinine Equation (2020) Hematocrit Auto (Bld) [Volum e fraction]Ordered By: Francesco Lui on 12-16-2024 Hematocrit (Bld) [Volume fraction] 39.8 % Low 40-54 [facility] Hemoglobin measurementOrdere d By: Francesco Lui on 12-16-2024 Hemoglobin (Bld) [Mass/Vol] 13.5 g/dL 13.0-16.5 [facility] Immature granulocytes/100 WB C Auto (Bld)Ordered By: Francesco Lui on 12-16-2024 Immature granulocytes/100 WBC (Bld) 1.600 % High 0.0-0.9 [facility] Comment on above: IG% - Immature Granu locytes (promyelocytes, myelocytes and metamyelocytes) > 1% indicates that a LEFT SHIFT is Present. Laboratory - Chemistry and C hemistry - challengeOrdered By: Francesco Lui on 12-16-2024 AST [Catalytic activity/Vol] 29 U/L <38 [facility] Liver Profileon 12-16-2024 Albumin [Mass/Vol] 3.1 g/dL Low 3.5-5.0 [facility] Comment on above: Performed By: #### L 500.3400, L500.2500, L100.0100 ####[facility] [address] [place], [address] ALK PHOS 136 U/L High 40-129 [facility] Comment on above: Performed By: #### L 500.3400, L500.2500, L100.0100 ####[facility] [address] [place], [address] ALT [Catalytic activity/Vol] 149 U/L High <=46 [facility] Comment on above: Performed By: #### L 500.3400, L500.2500, L100.0100 ####[facility] [address] [place], [address] AST [Catalytic activity/Vol] 29 U/L Normal <=37 [facility] Comment on above: Performed By: #### L 500.3400, L500.2500, L100.0100 ####[facility] [address] [place], [address] Bilirubin [Mass/Vol] 2.75 mg/dL High 0.00-1.30 [facility] Comment on above: Performed By: #### L 500.3400, L500.2500, L100.0100 ####[facility] [address] [place], [address] Bilirubin.direct [Mass/Vol] 1.88 mg/dL High 0.00-0.30 [facility] Comment on above: Performed By: #### L 500.3400, L500.2500, L100.0100 ####[facility] [address] [place], [address] Globulin (S) [Mass/Vol] 3.1 g/dL Normal 2.2-4.2 [facility] Comment on above: Performed By: #### L 500.3400, L500.2500, L100.0100 ####[facility] [address] [place], [address] T PROT 6.2 g/dL Normal 5.9-8.4 [facility] Comment on above: Performed By: #### L 500.3400, L500.2500, L100.0100 ####[facility] [address] [place], [address] Lymphocytes Auto (Unsp spec) [#/Vol]Ordered By: Francesco Lui on 12-16-2024 Lymphocytes (Bld) [#/Vol] 1.28 10*3/uL 0.83-4.51 [facility] Lymphocytes/100 WBC Auto (Un sp spec)Ordered By: Francesco Lui on 12-16-2024 Lymphocytes/100 WBC (Bld) 20.8 % 19-41 [facility] MCV (mean corpuscular volume ) determinationOrdered By: Francesco Lui on 12-16-2024 MCV (RBC) [Entitic vol] 86.0 fL 80-94 [facility] Mean corpuscular hemoglobin (MCH) determinationOrdered By: Francesco Lui on 12-16-2024 MCH (RBC) [Entitic mass] 29.2 pg 27.0-32.0 [facility] Mean corpuscular hemoglobin concentration (MCHC) determinationOrdered By: Francesco Lui on 12-16-2024 MCHC (RBC) [Mass/Vol] 33.9 g/dL 32-36 [facility] Mean platelet volume determi nationOrdered By: Francesco Lui on 12-16-2024 Platelet mean volume (Bld) [Entitic vol] 9.8 fL 6.2-12.0 [facility] Monocyte percentageOrdered B y: Francesco Lui on 12-16-2024 Monocytes/100 WBC (Bld) 13.5 % High 0-10 [facility] Neutrophil percentageOrdered By: Francesco Lui on 12-16-2024 Neutrophils/100 WBC (Bld) 61.0 % 47-70 [facility] Nucleated red blood cell per centageOrdered By: Francesco Lui on 12-16-2024 Nucleated RBC/100 WBC (Bld) [Ratio] 0 % 0-5 [facility] Platelet countOrdered By: Gracie Lui on 12-16-2024 Platelets (Bld) [#/Vol] 153 10*3/uL 150-450 [facility] Potassium (Unsp spec) [Mass/ Vol]Ordered By: Francesco Lui on 12-16-2024 Potassium [Moles/Vol] 4.0 mmol/L 3.3-5.1 [facility] Potassium measurement (mass/ volume)Ordered By: Francesco Lui on 12-16-2024 Potassium (Unsp spec) [Mass/Vol] 4.0 mmol/L 3.3-5.1 [facility] RBC Auto (Bld) [#/Vol]Ordere d By: Francesco Lui on 12-16-2024 RBC (Bld) [#/Vol] 4.63 10*6/uL 4.6-6.2 [facility] Serum creatinine measurement (mass/volume)Ordered By: Francesco Lui on 12-16-2024 Creatinine [Mass/Vol] 1.06 mg/dL 0.70-1.20 [facility] Serum globulin measurementOr dered By: Francesco Lui on 12-16-2024 Globulin (S) [Mass/Vol] 3.1 g/dL 2.2-4.2 [facility] Serum glucose measurement (m ass/volume)Ordered By: Francesco Lui on 12-16-2024 Glucose [Mass/Vol] 85 mg/dL 70-99 [facility] Serum or plasma alanine mays otransferase (ALT) measurementOrdered By: Francesco Lui on 12-16-2024 ALT [Catalytic activity/Vol] 149 U/L High <47 [facility] Serum or plasma albumin marquise urement (mass/volume)Ordered By: Francesco Lui on 12-16-2024 Albumin [Mass/Vol] 3.1 g/dL Low 3.5-5.0 [facility] Serum or plasma alkaline daniel sphatase measurementOrdered By: Francesco Lui on 12-16-2024 ALP [Catalytic activity/Vol] 136 U/L High 40-129 [facility] Serum or plasma calcium marquise urement (mass/volume)Ordered By: Francesco Lui on 12-16-2024 Calcium [Mass/Vol] 9.0 mg/dL 7.6-11.0 [facility] Serum or plasma urea nitroge n measurement (mass/volume)Ordered By: Francesco Lui on 12-16-2024 Urea nitrogen [Mass/Vol] 14 mg/dL 4-19 [facility] Sodium levelOrdered By: Frederick Lui on 12-16-2024 Sodium [Moles/Vol] 139 mmol/L 133-145 [facility] Total proteinOrdered By: Mendoza Lui on 12-16-2024 Protein [Mass/Vol] 6.2 g/dL 5.9-8.4 [facility] White blood cell (WBC) count Ordered By: Francesco Lui on 12-16-2024 WBC (Bld) [#/Vol] 6.1 10*3/uL 4.4-11.0 [facility] 12 Lead EKGon 12-15-2024 12 Lead EKG Normal [facility] CBC-Complete Blood Cnt No Di ffon 12-15-2024 Erythrocyte distribution width (RBC) [Ratio] 12.9 % Normal 11.6-14.6 [facility] Comment on above: Performed By: #### L 100.0500 ####[facility] [address] [place], [place], [address] Hematocrit (Bld) [Volume fraction] 42.2 % Normal 40-54 [facility] Comment on above: Performed By: #### L 100.0500 ####[facility] [address] [place], [address] Hemoglobin (Bld) [Mass/Vol] 14.5 g/dL Normal 13.0-16.5 [facility] Comment on above: Performed By: #### L 100.0500 ####[facility] [address] [place], [address] MCH (RBC) [Entitic mass] 28.8 pg Normal 27.0-32.0 [facility] Comment on above: Performed By: #### L 100.0500 ####[facility] [address] [place], [address] MCHC (RBC) [Mass/Vol] 34.4 g/dL Normal 32-36 [facility] Comment on above: Performed By: #### L 100.0500 ####[facility] [address] [place], [address] MCV (RBC) [Entitic vol] 83.9 fL Normal 80-94 [facility] Comment on above: Performed By: #### L 100.0500 ####[facility] [address] [place], [address] Platelet mean volume (Bld) [Entitic vol] 9.8 fL Normal 6.2-12.0 [facility] Comment on above: Performed By: #### L 100.0500 ####[facility] [address] [place], [address] Platelets (Bld) [#/Vol] 163 10*3/uL Normal 150-450 [facility] Comment on above: Performed By: #### L 100.0500 ####[facility] [address] [place], [address] RBC (Bld) [#/Vol] 5.03 10*6/uL Normal 4.6-6.2 [facility] Comment on above: Performed By: #### L 100.0500 ####[facility] [address] [place], [address] RDW SD 39.7 fl Normal 35.1-43.9 [facility] Comment on above: Performed By: #### L 100.0500 ####[facility] [address] [place], [address] WBC (Bld) [#/Vol] 10.2 10*3/uL Normal 4.4-11.0 [facility] Comment on above: Performed By: #### L 100.0500 ####[facility] [address] [place], [address] Comprehensive Metabolic Prof ilon 12-15-2024 Albumin [Mass/Vol] 3.4 g/dL Low 3.5-5.0 [facility] Comment on above: Performed By: #### L 500.4050 ####[facility] [address] [place], [address] Albumin/Globulin [Mass ratio] 1.1 {ratio} Normal 0.9-2.4 [facility] Comment on above: Performed By: #### L 500.4050 ####[facility] [address] [place], [address] ALK PHOS 156 U/L High 40-129 [facility] Comment on above: Performed By: #### L 500.4050 ####[facility] [address] [place], [address] ALT [Catalytic activity/Vol] 227 U/L High <=46 [facility] Comment on above: Performed By: #### L 500.4050 ####[facility] [address] [place], [address] AST [Catalytic activity/Vol] 56 U/L High <=37 [facility] Comment on above: Performed By: #### L 500.4050 ####[facility] [address] [place], [address] Bilirubin [Mass/Vol] 5.85 mg/dL High 0.00-1.30 [facility] Comment on above: Performed By: #### L 500.4050 ####[facility] [address] [place], [address] BUN/CRE 10.4 RATIO Normal 10-20 [facility] Comment on above: Performed By: #### L 500.4050 ####[facility] [address] [place], [address] Calcium [Mass/Vol] 9.1 mg/dL Normal 7.6-11.0 [facility] Comment on above: Performed By: #### L 500.4050 ####[facility] [address] [place], [address] Chloride [Moles/Vol] 103 mmol/L Normal 98-108 [facility] Comment on above: Performed By: #### L 500.4050 ####[facility] [address] [place], [address] CO2 [Moles/Vol] 21.3 mmol/L Normal 21.0-32.0 [facility] Comment on above: Performed By: #### L 500.4050 ####[facility] [address] [place], [address] Creatinine [Mass/Vol] 0.99 mg/dL Normal 0.70-1.20 [facility] Comment on above: Result Comment: Icte stephany present, Results may be affected. Performed By: #### L 500.4050 ####[facility] [address] [place], [address] ECRCL 112.50 ml/min Normal 50-250 [facility] Comment on above: Performed By: #### L 500.4050 ####[facility] [address] [place], [address] GAP 13 Normal 5-15 [facility] Comment on above: Performed By: #### L 500.4050 ####[facility] [address] [place], [address] GFR/1.73 sq M.predicted among non-blacks MDRD (S/P/Bld) [Vol rate/Area] 98 mL/min/{1.73_m2} Normal >60 [facility] Comment on above: Result Comment: mL/m in/1.73m2 CKD-EPI Creatinine Equation (2020) Performed By: #### L 500.4050 ####[facility] [address] [place], [address] Globulin (S) [Mass/Vol] 3.1 g/dL Normal 2.2-4.2 [facility] Comment on above: Performed By: #### L 500.4050 ####[facility] [address] [place], [address] Glucose [Mass/Vol] 106 mg/dL High 70-99 [facility] Comment on above: Performed By: #### L 500.4050 ####[facility] [address] [place], [address] Potassium [Moles/Vol] 3.9 mmol/L Normal 3.3-5.1 [facility] Comment on above: Result Comment: Hemo lysis present, Results??could be affected.?? Performed By: #### L 500.4050 ####[facility] [address] [place], [address] Sodium [Moles/Vol] 137 mmol/L Normal 133-145 [facility] Comment on above: Performed By: #### L 500.4050 ####[facility] [address] [place], [address] T PROT 6.5 g/dL Normal 5.9-8.4 [facility] Comment on above: Performed By: #### L 500.4050 ####[facility] [address] [place], [address] Urea nitrogen [Mass/Vol] 10 mg/dL Normal 4-19 [facility] Comment on above: Performed By: #### L 500.4050 ####[facility] [address] [place], [address] ERCP Biliary/Pancreason 11-28 ERCP Biliary/Pancreas Normal [facility] ERCP Reporton 12-15-2024 ERCP Report Normal [facility] Electrocardiogram reportOrde red By: [place] Lubin on 12-15-2024 EKG study [facility] Cardiovascular Services [address] [place] [address] 12 Lead EKG 12/15/24 0448 MR#: [id number] Acct: [id number] Name: DIANE CONNORS Rep #:[id number] : 1985 39 From: [place] Lubin MD Attending Dr: Dr. Francesco Lui MD Status: ADM IN Ordering Dr: Gray López MD Date: Location: [facility] Sex: M C Admitted: 12/14/24 Test Reason : AM EKG Blood Pressure : */* mmHG Vent. Rate : 90 BPM Atrial Rate : 90 BPM P-R Int : 164 ms QRS Dur : 114 ms QT Int : 366 ms P-R-T Axes : 42 -29 19 degrees QTcB Int : 447 ms Normal sinus rhythm Incomplete right bundle branch block Borderline ECG When compared with ECG of 11-Dec-2024 12:55, MA interval has decreased Vent. rate has increased by 38 bpm QT has lengthened Confirmed by JOSE LUBIN MD ([id number]), television news video editor CHAVA CASEY ([id number]) on 12/15/2024 8:22:34 AM Referred By: PRIMITIVO Confirmed By: JOSE LUBIN MD 03/18/821 _ [place] Lubin MD CC: AGUILAR Arias; Dr. Gray López MD; Dr. Francesco Lui MD ~ Signed [facility] Work Phone: MR/POSTOP.ANEon 12-15-2024 MR/POSTOP.ANE Normal [facility] MR/OLVZEZFH4et 12-15-2024 MR/POSTOPAN2 Normal [facility] Serum or plasma albumin/glob ulin mass ratioOrdered By: Cruz Arciniega on 12-15-2024 Albumin/Globulin [Mass ratio] 1.1 {ratio} 0.9-2.4 [facility] Abdomen/Pelvis W IV Cont ONL Yon 12-14-2024 Abdomen/Pelvis W IV Cont ONLY Normal [facility] Absolute neutrophil countOrd ered By: Petar Barrera on 12-14-2024 Neutrophils (Bld) [#/Vol] 12.7 10*3/uL High 2.0-7.7 [facility] Anion gap in Serum or Plasma Ordered By: Petar Barrera on 12-14-2024 Anion gap [Moles/Vol] 10 mmol/L 02-11 [facility] BUN/creatinine ratioOrdered By: Petar Barrera on 12-14-2024 Urea nitrogen/Creatinine [Mass ratio] 11.9 mg/mg - [facility] Basic Metabolic Profile (BMP )on 12-14-2024 BUN/CRE 11.9 RATIO Normal - [facility] Comment on above: Performed By: #### L 503.6005, L501.2450, L500.2500, L500.3400 ####[facility] [address] [place], [address] ECRCL 110.26 ml/min Normal 50-250 [facility] Comment on above: Performed By: #### L 503.6005, L501.2450, L500.2500, L500.3400 ####[facility] [address] [place], [address] GAP 10 Normal 5-15 [facility] Comment on above: Performed By: #### L 503.6005, L501.2450, L500.2500, L500.3400 ####[facility] [address] [place], [address] GFR/1.73 sq M.predicted among non-blacks MDRD (S/P/Bld) [Vol rate/Area] 96 mL/min/{1.73_m2} Normal >60 [facility] Comment on above: Result Comment: mL/m in/1.73m2 CKD-EPI Creatinine Equation (2020) Performed By: #### L 503.6005, L501.2450, L500.2500, L500.3400 ####[facility] [address] [place], [address] Basophil percentageOrdered B y: Petar Barrera on 12-14-2024 Basophils/100 WBC (Bld) 0.6 % 0-1 [facility] Bilirubin Test strip Ql (U)O rdered By: Petar Barrera on 12-14-2024 Bilirubin Ql (U) 3 mg/dL High Negative [facility] Comment on above: COLOR OF URINE MAY A FFECT DIPSTICK RESULTS. Bilirubin directOrdered By: Petar Barrera on 12-14-2024 Bilirubin.direct [Mass/Vol] 3.43 mg/dL High 0.00-0.30 [facility] Comment on above: Performed By: #### L 503.6005, L501.2450, L500.2500, L500.3400 ####[facility] [address] [place], [address] Bilirubin, totalOrdered By: Petar Barrera on 12-14-2024 Bilirubin [Mass/Vol] 4.43 mg/dL High 0.00-1.30 [facility] Comment on above: Performed By: #### L 503.6005, L501.2450, L500.2500, L500.3400 ####[facility] [address] 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 CBC W/Diff, Automatedon 11-28 SMEAR COMMENT COMMENT Normal [facility] Comment on above: Result Comment: LYMP HOPENIA. Performed By: #### L 100.0100 ####[facility] [address] [place], [address] Carbon dioxide, total [Moles /volume] in Central venous bloodOrdered By: Petar Barrera on 12-14-2024 CO2 [Moles/Vol] 25.7 mmol/L Normal 21.0-32.0 [facility] Comment on above: Performed By: #### L 503.6005, L501.2450, L500.2500, L500.3400 ####[facility] [address] [place], [address] Chest PA and Lateralon 12-14 Chest PA and Lateral Normal [facility] Chloride assayOrdered By: Ann Barrera on 12-14-2024 Chloride [Moles/Vol] 103 mmol/L Normal 98-108 [facility] Comment on above: Performed By: #### L 503.6005, L501.2450, L500.2500, L500.3400 ####[facility] [address] [place], [address] Emergency Department Summary on 12-14-2024 Emergency Department Summary Normal [facility] Eosinophil percentageOrdered By: Petar Barrera on 12-14-2024 Eosinophils/100 WBC (Bld) 0.1 % 0-5 [facility] Epithelial cells.squamous LM Ql (Urine sed)Ordered By: Petar Barrera on 12-14-2024 Epithelial cells.squamous LM.HPF (Urine sed) [#/Area] 0 /[HPF] 0-5 [facility] Erythrocyte distribution wid th ratioOrdered By: Petar Barrera on 12-14-2024 Erythrocyte distribution width (RBC) [Ratio] 12.8 % 11.6-14.6 [facility] Erythrocyte distribution wid th standard deviationOrdered By: Petar Barrera on 12-14-2024 Erythrocyte distribution width (RBC) [Entitic vol] 40.8 fL 35.1-43.9 [facility] Estimation of creatinine alyson aranceOrdered By: Petar Barrera on 12-14-2024 Estimated Creatinine Clearance Calc 110.26 ml/min 50-250 [facility] GFR/1.73 sq M.predicted latrell g non-blacks MDRD (S/P/Bld) [Vol rate/Area]Ordered By: Petar Barrera on 12-14-2024 Estimated GFR (MDRD) Non-Af Amer 96 >60 [facility] Comment on above: mL/min/1.73m2 CKD-EP I Creatinine Equation (2020) Glucose Ql (U)Ordered By: yovana Barrera on 12-14-2024 Urine Glucose (UA) Normal mg/dl Normal [facility] H AND P Exam - Hospitaliston 12-14-2024 H&P Exam - Hospitalist Normal [facility] Hematocrit Auto (Bld) [Volum e fraction]Ordered By: Petar Barrera on 12-14-2024 Hematocrit (Bld) [Volume fraction] 46.1 % 40-54 [facility] Hemoglobin measurementOrdere d By: Petar Barrera on 12-14-2024 Hemoglobin (Bld) [Mass/Vol] 15.5 g/dL 13.0-16.5 [facility] Immature granulocytes/100 WB C Auto (Bld)Ordered By: Petar Barrera on 12-14-2024 Immature granulocytes/100 WBC (Bld) 0.900 % 0.0-0.9 [facility] Comment on above: IG% - Immature Granu locytes (promyelocytes, myelocytes and metamyelocytes) > 1% indicates that a LEFT SHIFT is Present. Influenza virus A and B and SARS-CoV-2 (COVID-19) and Respiratory syncytial virus RNAOrdered By: Petar Barrera on 12-14-2024 SARS-CoV-2 (COVID-19) RNA ROSSANA+probe Ql (Unsp spec) [facility] Ketones Test strip Ql (U)Ord ered By: Petar Barrera on 12-14-2024 Ketones Ql (U) Negative Negative [facility] Lactic acid measurementOrder ed By: Petar Barrera on 12-14-2024 Lactate [Moles/Vol] 1.1 mmol/L Normal 0.0-2.0 [facility] Comment on above: Order Comment: Y Performed By: #### L 503.6005, L501.2450, L500.2500, L500.3400 ####[facility] [address] [place], [place], [address] Lipase measurementOrdered By : Petar Barrera on 12-14-2024 Lipase [Catalytic activity/Vol] 26 U/L Normal 13-75 [facility] Comment on above: Please note:LIPASE r evised reference range effective 23. New Lipase methodology. Expected to produce lower values than the previous assay method. NEW Reference Range: 13 - 75 U/L Result Comment: Plea note:LIPASE revised reference range effective 23.New Lipase methodology. Expected to produce lower valuesthan the previous assay method.NEW Reference Range: 13 - 75 U/L Performed By: #### L 503.6005, L501.2450, L500.2500, L500.3400 ####[facility] [address] [place], [place], [address] Liver Profileon 12-14-2024 ALK PHOS 149 U/L High 40-129 [facility] Comment on above: Performed By: #### L 503.6005, L501.2450, L500.2500, L500.3400 ####[facility] [address] [place], [address] T PROT 6.6 g/dL Normal 5.9-8.4 [facility] Comment on above: Performed By: #### L 503.6005, L501.2450, L500.2500, L500.3400 ####[facility] [address] [place], [address] Liver ProfileOrdered By: Sydney Barrera on 12-14-2024 AST [Catalytic activity/Vol] 124 U/L High <=37 [facility] Comment on above: Performed By: #### L 503.6005, L501.2450, L500.2500, L500.3400 ####[facility] [address] [place], [address] Lymphocytes Auto (Unsp spec) [#/Vol]Ordered By: Petar Barrera on 12-14-2024 Lymphocytes (Bld) [#/Vol] 0.45 10*3/uL Low 0.83-4.51 [facility] Lymphocytes/100 WBC Auto (Un sp spec)Ordered By: Petar Barrera on 12-14-2024 Lymphocytes/100 WBC (Bld) 3.2 % Low 19-41 [facility] M100.678on 12-14-2024 M100.678 Pending SARS-CoV-2 (COVID 19) Negative INFLUENZA A Negative INFLUENZA B Negative RSV PCR Negative Normal [facility] Comment on above: Performed By: #### M 100.678 ####[facility] [address] [place], [address] MCV (mean corpuscular volume ) determinationOrdered By: Petar Barrera on 12-14-2024 MCV (RBC) [Entitic vol] 87.1 fL 80-94 [facility] Manual differential comment Emanuel (Bld) [Interp]Ordered By: Petar Barrera on 12-14-2024 Differential Comment COMMENT [facility] Comment on above: LYMPHOPENIA. Mean corpuscular hemoglobin (MCH) determinationOrdered By: Petar Barrera on 12-14-2024 MCH (RBC) [Entitic mass] 29.3 pg 27.0-32.0 [facility] Mean corpuscular hemoglobin concentration (MCHC) determinationOrdered By: Petar Barrera on 12-14-2024 MCHC (RBC) [Mass/Vol] 33.6 g/dL 32-36 [facility] Mean platelet volume determi nationOrdered By: Petar Barrera on 12-14-2024 Platelet mean volume (Bld) [Entitic vol] 9.4 fL 6.2-12.0 [facility] Microscopic analysis of urin e for red blood cells (RBC)Ordered By: Petar Barrera on 12-14-2024 Microscopic analysis of urine for red blood cells (RBC) 0-5 SEEN /hpf 0-5 [facility] Urine RBC 0-5 SEEN /hpf 0-5 [facility] Monocyte percentageOrdered B y: Petar Barrera on 12-14-2024 Monocytes/100 WBC (Bld) 4.7 % 0-10 [facility] Mucus LM Ql (Urine sed)Order ed By: Petar Barrera on 12-14-2024 Mucus Ql (Urine sed) 1+ /hpf [facility] Neutrophil percentageOrdered By: Petar Barrera on 12-14-2024 Neutrophils/100 WBC (Bld) 90.5 % High 47-70 [facility] Nitrite Test strip Ql (U)Ord ered By: Petar Barrera on 12-14-2024 Nitrite Ql (U) Negative Negative [facility] Nucleated red blood cell per centageOrdered By: Petar Barrera on 12-14-2024 Nucleated RBC/100 WBC (Bld) [Ratio] 0 % 0-5 [facility] Platelet countOrdered By: Ann Barrera on 12-14-2024 Platelets (Bld) [#/Vol] 156 10*3/uL 150-450 [facility] Potassium measurement (mass/ volume)Ordered By: Petar Barrera on 12-14-2024 Potassium [Moles/Vol] 3.7 mmol/L Normal 3.3-5.1 [facility] Comment on above: Performed By: #### L 503.6005, L501.2450, L500.2500, L500.3400 ####[facility] [address] [place], [address] Protein Test strip Ql (U)Ord ered By: Petar Barrera on 12-14-2024 Protein Ql (U) 30 mg/dl High Negative [facility] RBC Auto (Bld) [#/Vol]Ordere d By: Petar Barrera on 12-14-2024 RBC (Bld) [#/Vol] 5.29 10*6/uL 4.6-6.2 [facility] Serum creatinine measurement (mass/volume)Ordered By: Petar Barrera on 12-14-2024 Creatinine [Mass/Vol] 1.01 mg/dL Normal 0.70-1.20 [facility] Comment on above: Performed By: #### L 503.6005, L501.2450, L500.2500, L500.3400 ####[facility] [address] [place], [address] Serum globulin measurementOr dered By: Petar Barrera on 12-14-2024 Globulin (S) [Mass/Vol] 2.9 g/dL Normal 2.2-4.2 [facility] Comment on above: Performed By: #### L 503.6005, L501.2450, L500.2500, L500.3400 ####[facility] [address] [place], [address] Serum glucose measurement (m ass/volume)Ordered By: Petar Barrera on 12-14-2024 Glucose [Mass/Vol] 123 mg/dL High 70-99 [facility] Comment on above: Performed By: #### L 503.6005, L501.2450, L500.2500, L500.3400 ####[facility] [address] [place], [address] Serum or plasma alanine mays otransferase (ALT) measurementOrdered By: Petar Barrera on 12-14-2024 ALT [Catalytic activity/Vol] 354 U/L High <=46 [facility] Comment on above: Performed By: #### L 503.6005, L501.2450, L500.2500, L500.3400 ####[facility] [address] [place], [address] Serum or plasma albumin marquise urement (mass/volume)Ordered By: Petar Barrera on 12-14-2024 Albumin [Mass/Vol] 3.7 g/dL Normal 3.5-5.0 [facility] Comment on above: Performed By: #### L 503.6005, L501.2450, L500.2500, L500.3400 ####[facility] [address] [place], [address] Serum or plasma alkaline daniel sphatase measurementOrdered By: Petar Barrera on 12-14-2024 ALP [Catalytic activity/Vol] 149 U/L High 40-129 [facility] Serum or plasma calcium marquise urement (mass/volume)Ordered By: Petar Barrera on 12-14-2024 Calcium [Mass/Vol] 9.5 mg/dL Normal 7.6-11.0 [facility] Comment on above: Performed By: #### L 503.6005, L501.2450, L500.2500, L500.3400 ####[facility] [address] [place], [address] Serum or plasma urea nitroge n measurement (mass/volume)Ordered By: Petar Barrera on 12-14-2024 Urea nitrogen [Mass/Vol] 12 mg/dL Normal 4-19 [facility] Comment on above: Performed By: #### L 503.6005, L501.2450, L500.2500, L500.3400 ####[facility] [address] [place], [address] Sodium levelOrdered By: Sara Barrera on 12-14-2024 Sodium [Moles/Vol] 138 mmol/L Normal 133-145 [facility] Comment on above: Performed By: #### L 503.6005, L501.2450, L500.2500, L500.3400 ####[facility] [address] [place], [address] Squamous epithelial cells de tection in urine sediment by light microscopyOrdered By: Petarcory Barrera on 12-14-2024 Epithelial cells.squamous LM Ql (Urine sed) 0 SEEN /hpf 0-5 [facility] Total proteinOrdered By: Margarito diez Holly on 12-14-2024 Protein [Mass/Vol] 6.6 g/dL 5.9-8.4 [facility] Urinalysis, Completeon 12-14 Mucus Ql (Urine sed) 1+ /hpf Normal [facility] Comment on above: Order Comment: CLEAN CATCH Performed By: #### L 400.0001 ####[facility] [address] [place], [place], [address] BACTERIA 2+ /hpf Normal None Seen [facility] Comment on above: Order Comment: CLEAN CATCH Performed By: #### L 400.0001 ####[facility] [address] [place], [address] RBC 0-5 SEEN Normal 0-5 [facility] Comment on above: Order Comment: CLEAN CATCH Performed By: #### L 400.0001 ####[facility] [address] [place], [address] WBC 0-5 SEEN Normal 0-5 [facility] Comment on above: Order Comment: CLEAN CATCH Performed By: #### L 400.0001 ####[facility] [address] [place], [address] EPI,SQUAMOUS 0 SEEN Normal 0-5 [facility] Comment on above: Order Comment: CLEAN CATCH Performed By: #### L 400.0001 ####[facility] [address] [place], [address] Urine blood detectionOrdered By: Petar Barrera on 12-14-2024 Urine Occult Blood 10 /ul High Negative [facility] Urine clarityOrdered By: Sydney Barrera on 12-14-2024 Clarity (U) Clear Clear [facility] Urine color determinationOrd ered By: Petar Barrera on 12-14-2024 Color (U) Yellow Yellow [facility] Urine glucose detectionOrder ed By: Petar Barrera on 12-14-2024 Glucose Ql (U) Normal mg/dl Normal [facility] Urine leukocyte esterase det ection by dipstickOrdered By: Petar Barrera on 12-14-2024 Leukocyte esterase Test strip Ql (U) 25 /ul High Negative [facility] Urine pHOrdered By: Petar fuchs on 12-14-2024 pH (U) 7.0 [pH] 5.0 - 8.0 [facility] Urine sediment bacteria coun t by microscopy (number/high power field)Ordered By: Petar Barrera on 12-14-2024 Bacteria LM.HPF (Urine sed) [#/Area] 2 /[HPF] None Seen [facility] Urine specific gravity measu rementOrdered By: Petar Barrera on 12-14-2024 Specific gravity (U) [Rel density] 1.005 1.002-1.030 [facility] Urine urobilinogen measureme ntOrdered By: Petar Barrera on 12-14-2024 Urobilinogen Ql (U) 1 mg/dl High Normal [facility] Urobilinogen Ql (U)Ordered B y: Petar Barrera on 12-14-2024 Urobilinogen (U) [Mass/Vol] 1 mg/dL High Normal [facility] White blood cell (WBC) count Ordered By: Petar Barrera on 12-14-2024 WBC (Bld) [#/Vol] 14.0 10*3/uL High 4.4-11.0 [facility] White blood cell countOrdere d By: Petar Barrera on 12-14-2024 Urine WBC 0-5 SEEN /hpf 0-5 [facility] White blood cell count 0-5 SEEN /hpf 0-5 [facility] 12 Lead EKGon 12-11-2024 12 Lead EKG Normal [facility] ERCP Biliary/Pancreason 11-28 ERCP Biliary/Pancreas Normal [facility] ERCP Reporton 12-11-2024 ERCP Report Normal [facility] MR/POSTOP.ANEon 12-11-2024 MR/POSTOP.ANE Normal [facility] MR/JAAPJTOP5ii 12-11-2024 MR/POSTOPAN2 Normal [facility] Special Stain Group IIon Special Stain Group II Normal [facility] Comment on above: Performed By: #### P SSII ####[facility] [address] [place], [place], [id number] Carbohydrate AG 19-9on 09-15 CA 19-9 63 U/mL High 0-35 [facility] Comment on above: Order Comment: Test( s) 476712-Jrlgwq, Serum or Plasmawas developed and its performance characteristicsdetermined by [employer]. It has not been cleared or approvedby the Food and Drug Administration.N Result Comment: [employer] Electrochemiluminescence Immunoassay(ECLIA)Values obtained with different assay methods or kits cannotbe used interchangeably. Results cannot be interpreted asabsolute evidence of the presence or absence of malignantdisease. Performed By: #### L 3100.3425, L3100.5450, L500.4100, L500.4050, L3890.6005, L3300.0100, L503.6030, L3000.0375, L503.6550, L501.5101, L3400.0700, L501.4700, L3100.5020, L300.3900, L3890.6200, L501.6710, L506.1000, L501.9520 ####[facility] [address] [place], [place], [id number] Ceruloplasminon 09-15-2024 CERULOPLASMIN 46.2 mg/dL High 16.0-31.0 [facility] Comment on above: Order Comment: Test( s) 832392-Qktdaz, Serum or Plasmawas developed and its performance characteristicsdetermined by [employer]. It has not been cleared or approvedby the Food and Drug Administration.N Performed By: #### L 3100.3425, L3100.5450, L500.4100, L500.4050, L3890.6005, L3300.0100, L503.6030, L3000.0375, L503.6550, L501.5101, L3400.0700, L501.4700, L3100.5020, L300.3900, L3890.6200, L501.6710, L506.1000, L501.9520 ####[facility] [address] [facility] [place] [place], [address] Copper, Serum or Plasmaon COPPER, SERUM 185 ug/dL High 69-132 [facility] Comment on above: Order Comment: Test( s) 086602-Mazdkk, Serum or Plasmawas developed and its performance characteristicsdetermined by [employer]. It has not been cleared or approvedby the Food and Drug Administration.N Result Comment: Dete ction Limit = 5Performed at: [facility] [address] [id number] Director: Raj Dick PhD, Phone: [phone] at: [facility] [address] [id number] Director: Kelly Jansen MD, Phone: [phone] Performed By: #### L 3100.3425, L3100.5450, L500.4100, L500.4050, L3890.6005, L3300.0100, L503.6030, L3000.0375, L503.6550, L501.5101, L3400.0700, L501.4700, L3100.5020, L300.3900, L3890.6200, L501.6710, L506.1000, L501.9520 ####[facility] [address] [facility] [place] [place], [address] Hepatitis Panel Acuteon 12-1 COMMENT Comment Normal . [facility] Comment on above: Order Comment: Test( s) 749887-Awmcht, Serum or Plasmawas developed and its performance characteristicsdetermined by [facility]. It has not been cleared or approvedby the Food and Drug Administration.N Result Comment: Not infected with HCV unless early or acute infection issuspected (which may be delayed in an immunocompromisedindividual), or other evidence exists to indicate HCVinfection. Performed By: #### L 3100.3425, L3100.5450, L500.4100, L500.4050, L3890.6005, L3300.0100, L503.6030, L3000.0375, L503.6550, L501.5101, L3400.0700, L501.4700, L3100.5020, L300.3900, L3890.6200, L501.6710, L506.1000, L501.9520 ####[facility] [address] [place], [address] HEP B CORE,IgM Negative Normal Negative [facility] Comment on above: Order Comment: Test( s) 566061-Ztnlry, Serum or Plasmawas developed and its performance characteristicsdetermined by [employer]. It has not been cleared or approvedby the Food and Drug Administration.N Performed By: #### L 3100.3425, L3100.5450, L500.4100, L500.4050, L3890.6005, L3300.0100, L503.6030, L3000.0375, L503.6550, L501.5101, L3400.0700, L501.4700, L3100.5020, L300.3900, L3890.6200, L501.6710, L506.1000, L501.9520 ####[facility] [address] [place], [address] HEP B SURF AG Negative Normal Negative [facility] Comment on above: Order Comment: Test( s) 572014-Hrveaz, Serum or Plasmawas developed and its performance characteristicsdetermined by [employer]. It has not been cleared or approvedby the Food and Drug Administration.N Performed By: #### L 3100.3425, L3100.5450, L500.4100, L500.4050, L3890.6005, L3300.0100, L503.6030, L3000.0375, L503.6550, L501.5101, L3400.0700, L501.4700, L3100.5020, L300.3900, L3890.6200, L501.6710, L506.1000, L501.9520 ####[facility] [address] [facility] [place] [place], [address] HEP C VIRUS AB Non-Reactive Normal Non Reactive [facility] Comment on above: Order Comment: Test( s) 501299-Ddsraj, Serum or Plasmawas developed and its performance characteristicsdetermined by [employer]. It has not been cleared or approvedby the Food and Drug Administration.N Performed By: #### L 3100.3425, L3100.5450, L500.4100, L500.4050, L3890.6005, L3300.0100, L503.6030, L3000.0375, L503.6550, L501.5101, L3400.0700, L501.4700, L3100.5020, L300.3900, L3890.6200, L501.6710, L506.1000, L501.9520 ####[facility] [address] [facility] [place], [address] HEPATITIS A-IgM Negative Normal Negative [facility] Comment on above: Order Comment: Test( s) 412440-Lhtljx, Serum or Plasmawas developed and its performance characteristicsdetermined by [employer]. It has not been cleared or approvedby the Food and Drug Administration.N Result Comment: A ne gative anti-HAV IgM result suggests no recent orcurrent HAV infection. Performed By: #### L 3100.3425, L3100.5450, L500.4100, L500.4050, L3890.6005, L3300.0100, L503.6030, L3000.0375, L503.6550, L501.5101, L3400.0700, L501.4700, L3100.5020, L300.3900, L3890.6200, L501.6710, L506.1000, L501.9520 ####[facility] [address] [place], [address] AYDEN + Protein Elect, Serumon 09-15-2024 Albumin [Mass/Vol] 3.3 g/dL Normal 2.9-4.4 [facility] Comment on above: Order Comment: Test( s) 638752-Kushpp, Serum or Plasmawas developed and its performance characteristicsdetermined by [employer]. It has not been cleared or approvedby the Food and Drug Administration.N Performed By: #### L 3100.3425, L3100.5450, L500.4100, L500.4050, L3890.6005, L3300.0100, L503.6030, L3000.0375, L503.6550, L501.5101, L3400.0700, L501.4700, L3100.5020, L300.3900, L3890.6200, L501.6710, L506.1000, L501.9520 ####[facility] [address] [facility] [place] [place], [address] Albumin/Globulin [Mass ratio] 1.1 {ratio} Normal 0.7-1.7 [facility] Comment on above: Order Comment: Test( s) 232119-Evgtjt, Serum or Plasmawas developed and its performance characteristicsdetermined by [employer]. It has not been cleared or approvedby the Food and Drug Administration.N Performed By: #### L 3100.3425, L3100.5450, L500.4100, L500.4050, L3890.6005, L3300.0100, L503.6030, L3000.0375, L503.6550, L501.5101, L3400.0700, L501.4700, L3100.5020, L300.3900, L3890.6200, L501.6710, L506.1000, L501.9520 ####[facility] [address] [place], [place], [id number] CMNRT-7-BWUK 0.3 g/dL Normal 0.0-0.4 [facility] Comment on above: Order Comment: Test( s) 797942-Jyhrri, Serum or Plasmawas developed and its performance characteristicsdetermined by [employer]. It has not been cleared or approvedby the Food and Drug Administration.N Performed By: #### L 3100.3425, L3100.5450, L500.4100, L500.4050, L3890.6005, L3300.0100, L503.6030, L3000.0375, L503.6550, L501.5101, L3400.0700, L501.4700, L3100.5020, L300.3900, L3890.6200, L501.6710, L506.1000, L501.9520 ####[facility] [address] [facility] [place] [place], [address] NLDZA-5-XZEK 0.7 g/dL Normal 0.4-1.0 [facility] Comment on above: Order Comment: Test( s) 798984-Hdxfai, Serum or Plasmawas developed and its performance characteristicsdetermined by [employer]. It has not been cleared or approvedby the Food and Drug Administration.N Performed By: #### L 3100.3425, L3100.5450, L500.4100, L500.4050, L3890.6005, L3300.0100, L503.6030, L3000.0375, L503.6550, L501.5101, L3400.0700, L501.4700, L3100.5020, L300.3900, L3890.6200, L501.6710, L506.1000, L501.9520 ####[facility] [address] [facility] [place] [place], [address] BETA GLOBULIN 1.4 g/dL High 0.7-1.3 [facility] Comment on above: Order Comment: Test( s) 768790-Whvayp, Serum or Plasmawas developed and its performance characteristicsdetermined by [facility]. It has not been cleared or approvedby the Food and Drug Administration.N Performed By: #### L 3100.3425, L3100.5450, L500.4100, L500.4050, L3890.6005, L3300.0100, L503.6030, L3000.0375, L503.6550, L501.5101, L3400.0700, L501.4700, L3100.5020, L300.3900, L3890.6200, L501.6710, L506.1000, L501.9520 ####[facility] [address] [facility] [place], [address] GAMMA GLOBULIN 0.8 g/dL Normal 0.4-1.8 [facility] Comment on above: Order Comment: Test( s) 370343-Ymgdmq, Serum or Plasmawas developed and its performance characteristicsdetermined by [employer]. It has not been cleared or approvedby the Food and Drug Administration.N Performed By: #### L 3100.3425, L3100.5450, L500.4100, L500.4050, L3890.6005, L3300.0100, L503.6030, L3000.0375, L503.6550, L501.5101, L3400.0700, L501.4700, L3100.5020, L300.3900, L3890.6200, L501.6710, L506.1000, L501.9520 ####[facility] [address] [facility] [place] [place], [address] Globulin (S) [Mass/Vol] 3.2 g/dL Normal 2.2-3.9 [facility] Comment on above: Order Comment: Test( s) 774706-Nsovew, Serum or Plasmawas developed and its performance characteristicsdetermined by [employer]. It has not been cleared or approvedby the Food and Drug Administration.N Performed By: #### L 3100.3425, L3100.5450, L500.4100, L500.4050, L3890.6005, L3300.0100, L503.6030, L3000.0375, L503.6550, L501.5101, L3400.0700, L501.4700, L3100.5020, L300.3900, L3890.6200, L501.6710, L506.1000, L501.9520 ####[facility] [address] [place], [address] AYDEN RESULT,S Comment Normal . [facility] Comment on above: Order Comment: Test( s) 372962-Zfwbhq, Serum or Plasmawas developed and its performance characteristicsdetermined by [employer]. It has not been cleared or approvedby the Food and Drug Administration.N Result Comment: No m onoclonality detected. Performed By: #### L 3100.3425, L3100.5450, L500.4100, L500.4050, L3890.6005, L3300.0100, L503.6030, L3000.0375, L503.6550, L501.5101, L3400.0700, L501.4700, L3100.5020, L300.3900, L3890.6200, L501.6710, L506.1000, L501.9520 ####[facility] [address] [place], [address] IMMUNOGLOB A QN 150 mg/dL Normal 90-386 [facility] Comment on above: Order Comment: Test( s) 011139-Hglltj, Serum or Plasmawas developed and its performance characteristicsdetermined by [employer]. It has not been cleared or approvedby the Food and Drug Administration.N Performed By: #### L 3100.3425, L3100.5450, L500.4100, L500.4050, L3890.6005, L3300.0100, L503.6030, L3000.0375, L503.6550, L501.5101, L3400.0700, L501.4700, L3100.5020, L300.3900, L3890.6200, L501.6710, L506.1000, L501.9520 ####[facility] [address] [place], [place], [address] IMMUNOGLOB G QN 904 mg/dL Normal 603-1613 [facility] Comment on above: Order Comment: Test( s) 440902-Lzcnzx, Serum or Plasmawas developed and its performance characteristicsdetermined by [employer]. It has not been cleared or approvedby the Food and Drug Administration.N Performed By: #### L 3100.3425, L3100.5450, L500.4100, L500.4050, L3890.6005, L3300.0100, L503.6030, L3000.0375, L503.6550, L501.5101, L3400.0700, L501.4700, L3100.5020, L300.3900, L3890.6200, L501.6710, L506.1000, L501.9520 ####[facility] [address] [facility] [place] [place], [address] IMMUNOGLOB M QN 48 mg/dL Normal 20-172 [facility] Comment on above: Order Comment: Test( s) 943889-Izztbh, Serum or Plasmawas developed and its performance characteristicsdetermined by [employer]. It has not been cleared or approvedby the Food and Drug Administration.N Performed By: #### L 3100.3425, L3100.5450, L500.4100, L500.4050, L3890.6005, L3300.0100, L503.6030, L3000.0375, L503.6550, L501.5101, L3400.0700, L501.4700, L3100.5020, L300.3900, L3890.6200, L501.6710, L506.1000, L501.9520 ####[facility] [address] [place], [place], [address] M-Mychal Not Observed Normal Not Observed [facility] Comment on above: Order Comment: Test( s) 659072-Jchood, Serum or Plasmawas developed and its performance characteristicsdetermined by [employer]. It has not been cleared or approvedby the Food and Drug Administration.N Performed By: #### L 3100.3425, L3100.5450, L500.4100, L500.4050, L3890.6005, L3300.0100, L503.6030, L3000.0375, L503.6550, L501.5101, L3400.0700, L501.4700, L3100.5020, L300.3900, L3890.6200, L501.6710, L506.1000, L501.9520 ####[facility] [address] [place], [place], [phone]) NOTE: Comment Normal . [facility] Comment on above: Order Comment: Test( s) 657740-Pochjo, Serum or Plasmawas developed and its performance characteristicsdetermined by [employer]. It has not been cleared or approvedby the Food and Drug Administration.N Result Comment: Prot ein electrophoresis scan will follow via computer,mail, or carbon brusher assembler delivery. Performed By: #### L 3100.3425, L3100.5450, L500.4100, L500.4050, L3890.6005, L3300.0100, L503.6030, L3000.0375, L503.6550, L501.5101, L3400.0700, L501.4700, L3100.5020, L300.3900, L3890.6200, L501.6710, L506.1000, L501.9520 ####[facility] [address] [place], [place], [id number] Protein [Mass/Vol] 6.5 g/dL Normal 6.0-8.5 [facility] Comment on above: Order Comment: Test( s) 114676-Ebdokw, Serum or Plasmawas developed and its performance characteristicsdetermined by [employer]. It has not been cleared or approvedby the Food and Drug Administration.N Performed By: #### L 3100.3425, L3100.5450, L500.4100, L500.4050, L3890.6005, L3300.0100, L503.6030, L3000.0375, L503.6550, L501.5101, L3400.0700, L501.4700, L3100.5020, L300.3900, L3890.6200, L501.6710, L506.1000, L501.9520 ####[facility] [address] [facility] [place] [place], [address] L501.5101on 09-15-2024 GGTP 69 IU/L Abnormal 0-65 [facility] Comment on above: Order Comment: Test( s) 232924-Plvgun, Serum or Plasmawas developed and its performance characteristicsdetermined by [employer]. It has not been cleared or approvedby the Food and Drug Administration.N Performed By: #### L 3100.3425, L3100.5450, L500.4100, L500.4050, L3890.6005, L3300.0100, L503.6030, L3000.0375, L503.6550, L501.5101, L3400.0700, L501.4700, L3100.5020, L300.3900, L3890.6200, L501.6710, L506.1000, L501.9520 ####[facility] [address] [facility] [place] [place], [address] AFP, Tumor Markeron 09-14-20 AFP TUMOR ADRIANA 3.2 ng/mL Normal 0.0-6.9 [facility] Comment on above: Order Comment: NN Result Comment: [employer] Electrochemiluminescence Immunoassay(ECLIA)Values obtained with different assay methods or kits cannotbe used interchangeably. Results cannot be interpreted asabsolute evidence of the presence or absence of malignantdisease.This test is not interpretable in females. AMENDED REPORT 09/14/24 0922 AFP TUMOR 2253 previously reported as: TEST RESULTS LIMITSAFP, Serum, Tumor Marker 3.2 ng/mL 0.0-6.9[facility] Electrochemiluminescence Immunoassay(ECLIA)Values obtained with different assay methods or kits cannotbeused interchangeably. Results cannot be interpreted asabsoluteevidence of the presence or absence of malignant disease.This test is not interpretable in females. _ TESTING PERFORMED AT [facility], [place]. ORIGINAL REPORT ON FILE IN LAB CONTAINS ADDITIONAL TEST SITE INFORMATION. Performed By: #### L 3200.1100, L3300.0700, L3300.1200, L3200.0500, L504.2610 ####[facility] [address] [place], [address] QUIQUE w/ Reflex Mult Confirmon 09-14-2024 QUIQUE,DIRECT Negative Normal Negative [facility] Comment on above: Result Comment: Perf ormed at: [address] [id number] Director: Raj Dick PhD, Phone: [phone] Performed By: #### L 3100.3425, L3100.5450, L500.4100, L500.4050, L3890.6005, L3300.0100, L503.6030, L3000.0375, L503.6550, L501.5101, L3400.0700, L501.4700, L3100.5020, L300.3900, L3890.6200, L501.6710, L506.1000, L501.9520 ####[facility] [address] [place], [place], [id number] ANCAon 09-14-2024 Atypical pANCA <1:20 Normal Neg:<1:20 [facility] Comment on above: Order Comment: NN Result Comment: Note : Specimen is icteric.The atypical pANCA pattern has been observed in asignificant percentage of patients with ulcerative colitis,primary sclerosing cholangitis and autoimmune hepatitis. Performed By: #### L 3200.1100, L3300.0700, L3300.1200, L3200.0500, L504.2610 ####[facility] [address] [place], [place], [id number] Perinuclear Ab. <1:20 Normal Neg:<1:20 [facility] Comment on above: Order Comment: NN Result Comment: Note : Specimen is icteric.The presence of positive fluorescence exhibiting P-ANCA orC-ANCA patterns alone is not specific for the diagnosis ofWegener's Granulomatosis (WG) or microscopic polyangiitis.Decisions about treatment should not be based solely onANCA IFA results. The International ANCA Group Consensusrecommends follow up testing of positive sera with both MA-3 and MPO-ANCA enzyme immunoassays. As many as 5% serumsamples are positive only by EIA. Ref. AM J Clin Icrhgg5190;111:507-513. Performed By: #### L 3200.1100, L3300.0700, L3300.1200, L3200.0500, L504.2610 ####[facility] [address] [place], [place], [id number] HIV - WCHon 09-14-2024 HIV Non-Reactive Normal Nonreactive [facility] Comment on above: Performed By: #### L 3100.3425, L3100.5450, L500.4100, L500.4050, L3890.6005, L3300.0100, L503.6030, L3000.0375, L503.6550, L501.5101, L3400.0700, L501.4700, L3100.5020, L300.3900, L3890.6200, L501.6710, L506.1000, L501.9520 ####[facility] [address] [place], [address] Hepatitis B Surface Antibody on 09-14-2024 HEP B Surf Ab Non-Reactive Normal [facility] Comment on above: Result Comment: Non Reactive: Inconsistent with immunity less than <10 mIU/mL Reactive: Consistent with immunity greater than or equal to 10 mIU/mL Performed By: #### L 3100.3425, L3100.5450, L500.4100, L500.4050, L3890.6005, L3300.0100, L503.6030, L3000.0375, L503.6550, L501.5101, L3400.0700, L501.4700, L3100.5020, L300.3900, L3890.6200, L501.6710, L506.1000, L501.9520 ####[facility] [address] [place], [address] IgG Subclasseson 09-14-2024 IgG, SUBCLASS 1 386 mg/dL Normal 248-810 [facility] Comment on above: Order Comment: NN Performed By: #### L 3200.1100, L3300.0700, L3300.1200, L3200.0500, L504.2610 ####[facility] [address] [place], [address] IgG, SUBCLASS 2 276 mg/dL Normal 130-555 [facility] Comment on above: Order Comment: NN Performed By: #### L 3200.1100, L3300.0700, L3300.1200, L3200.0500, L504.2610 ####[facility] [address] [place], [address] IgG, SUBCLASS 3 40 mg/dL Normal 15-102 [facility] Comment on above: Order Comment: NN Performed By: #### L 3200.1100, L3300.0700, L3300.1200, L3200.0500, L504.2610 ####[facility] [address] [place], [address] IgG, SUBCLASS 4 89 mg/dL Normal 2-96 [facility] Comment on above: Order Comment: NN Performed By: #### L 3200.1100, L3300.0700, L3300.1200, L3200.0500, L504.2610 ####[facility] [address] [place], [address] Immunoglobulins G/A/M/Brown IMMUNOGLOB A QN 140 mg/dL Normal 90-386 [facility] Comment on above: Order Comment: NN Performed By: #### L 3200.1100, L3300.0700, L3300.1200, L3200.0500, L504.2610 ####[facility] [address] [place], [address] IMMUNOGLOB E QN 40 IU/mL Normal 6-495 [facility] Comment on above: Order Comment: NN Performed By: #### L 3200.1100, L3300.0700, L3300.1200, L3200.0500, L504.2610 ####[facility] [address] [place], [address] IMMUNOGLOB M QN 42 mg/dL Normal 20-172 [facility] Comment on above: Order Comment: NN Performed By: #### L 3200.1100, L3300.0700, L3300.1200, L3200.0500, L504.2610 ####[facility] [address] [place], [address] Vitamin D,25 Hydroxyon 09-14 Vitamin D 25-OH 52.6 ng/mL Normal [facility] Comment on above: Result Comment: Ruth Ann min D 25(OH) Status Range Deficiency <20 ng/mL (50nmol/L) Insufficiency 20 - 30 ng/mL (50 - 75 nmol/L) Sufficiency 30 - 100 ng/mL (75 - 250 nmol/L) Toxicity >100 ng/mL (>250 nmol/L) Performed By: #### L 3100.3425, L3100.5450, L500.4100, L500.4050, L3890.6005, L3300.0100, L503.6030, L3000.0375, L503.6550, L501.5101, L3400.0700, L501.4700, L3100.5020, L300.3900, L3890.6200, L501.6710, L506.1000, L501.9520 ####[facility] [address] [place], [place], [id number] 74-LO-Lafwwit DOrdered By: Sarah Lui on 09-11-2024 Vitamin D 25-Hydroxy 52.6 ng/mL [facility] Comment on above: Vitamin D 25(OH) Sta tus Range Deficiency <20 ng/mL (50nmol/L) Insufficiency 20 - 30 ng/mL (50 - 75 nmol/L) Sufficiency 30 - 100 ng/mL (75 - 250 nmol/L) Toxicity >100 ng/mL (>250 nmol/L) QUIQUE serumOrdered By: Francesco Lui on 09-11-2024 Anti-Nuclear Antibody Screen Negative Negative [facility] Comment on above: Performed at: [address] [id number] Director: Raj Dick PhD, Phone: [phone] Addendum DocumentOrdered By: Francesco Lui on 09-11-2024 Serum Immunofixation Comments Comment . [facility] Comment on above: Protein electrophore sis scan will follow via computer,mail, or carbon brusher assembler delivery. Albumin Elph [Mass/Vol]Order ed By: Francesco Lui on 09-11-2024 Albumin [Mass/Vol] 3.3 g/dL 2.9-4.4 [facility] Albumin to globulin ratioOrd ered By: Francesco Lui on 09-11-2024 Albumin/Globulin [Mass ratio] 0.8 {ratio} Low 0.9-2.4 [facility] Alpha 1 globulin Elph [Mass/ Vol]Ordered By: Francesco Lui on 09-11-2024 Hmudc-8-Lxijbguju (AYDEN) 0.3 g/dL 0.0-0.4 [facility] Izegh-1-Wziwcvvda (AYDEN) 0.7 g/dL 0.4-1.0 [facility] Beta globulin Elph [Mass/Vol ]Ordered By: Francesco Lui on 09-11-2024 Beta-Globulins (AYDEN) 1.4 g/dL High 0.7-1.3 [facility] Bilirubin directOrdered By: Francesco Lui on 09-11-2024 Bilirubin.direct [Mass/Vol] 11.21 mg/dL High 0.00-0.30 [facility] Bilirubin, Directon 09-11-20 24 Bilirubin.direct [Mass/Vol] 11.21 mg/dL High 0.00-0.30 [facility] Comment on above: Performed By: #### L 3100.3425, L3100.5450, L500.4100, L500.4050, L3890.6005, L3300.0100, L503.6030, L3000.0375, L503.6550, L501.5101, L3400.0700, L501.4700, L3100.5020, L300.3900, L3890.6200, L501.6710, L506.1000, L501.9520 ####[facility] [address] [place], [place], [phone] Bilirubin, totalOrdered By: Francesco Lui on 09-11-2024 Bilirubin [Mass/Vol] 14.00 mg/dL High 0.20-1.00 [facility] Comment on above: For patients on eltr ombopag therapy, use of Dimension [place] TBIL is not recommended. Blood urea nitrogen (BUN)/cr eatinine ratioOrdered By: Francesco Lui on 09-11-2024 Urea nitrogen/Creatinine [Mass ratio] 13.9 mg/mg 10- [facility] C-reactive protein measureme nt by high sensitivity methodOrdered By: Francesco Lui on 09-11-2024 C-Reactive Protein Extended Range < 2.90 mg/L 0.0-3.0 [facility] Comment on above: C-Reactive Protein ( CRP) provides useful information for thediagnosis, therapy and monitoring of inflammatory processesand associated diseases. For the evaluation of Relative Riskfor Cardiovascular Disease, a High Sensitivity CRP (HSCRP)should be ordered. CA 19-9 agOrdered By: Flori Lui on 09-11-2024 CA 19-9 Antigen 63 U/mL High 0-35 [facility] Comment on above: [facility] [employer] El ectrochemiluminescence Immunoassay(ECLIA)Values obtained with different assay methods or kits cannotbe used interchangeably. Results cannot be interpreted asabsolute evidence of the presence or absence of malignantdisease. CRPon 09-11-2024 C-REACTIVE PROT < 2.90 Normal 0.0-3.0 [facility] Comment on above: Result Comment: C-Re active Protein (CRP) provides useful information for thediagnosis, therapy and monitoring of inflammatory processesand associated diseases. For the evaluation of Relative Riskfor Cardiovascular Disease, a High Sensitivity CRP (HSCRP)should be ordered. Performed By: #### L 3100.3425, L3100.5450, L500.4100, L500.4050, L3890.6005, L3300.0100, L503.6030, L3000.0375, L503.6550, L501.5101, L3400.0700, L501.4700, L3100.5020, L300.3900, L3890.6200, L501.6710, L506.1000, L501.9520 ####[facility] [address] [place], [address] Carbon dioxide measurementOr dered By: Francesco Lui on 09-11-2024 CO2 [Moles/Vol] 25.0 mmol/L 21.0-32.0 [facility] Centromere B antibody assayO rdered By: Francesco Lui on 09-11-2024 Centromere B Antibody Not Reportable [facility] CeruloplasminOrdered By: Mendoza Lui on 09-11-2024 Ceruloplasmin 46.2 mg/dL High 16.0-31.0 [facility] Chloride measurementOrdered By: Francesco Lui on 09-11-2024 Chloride [Moles/Vol] 105 mmol/L 98-107 [facility] Comprehensive Metabolic Prof ilon 09-11-2024 Albumin [Mass/Vol] 3.2 g/dL Normal 3.2-5.0 [facility] Comment on above: Performed By: #### L 3100.3425, L3100.5450, L500.4100, L500.4050, L3890.6005, L3300.0100, L503.6030, L3000.0375, L503.6550, L501.5101, L3400.0700, L501.4700, L3100.5020, L300.3900, L3890.6200, L501.6710, L506.1000, L501.9520 ####[facility] [address] [place], [place], [phone] Albumin/Globulin [Mass ratio] 0.8 {ratio} Low 0.9-2.4 [facility] Comment on above: Performed By: #### L 3100.3425, L3100.5450, L500.4100, L500.4050, L3890.6005, L3300.0100, L503.6030, L3000.0375, L503.6550, L501.5101, L3400.0700, L501.4700, L3100.5020, L300.3900, L3890.6200, L501.6710, L506.1000, L501.9520 ####[facility] [address] [place], [place], [phone] ALK P 155 U/L High 45-117 [facility] Comment on above: Performed By: #### L 3100.3425, L3100.5450, L500.4100, L500.4050, L3890.6005, L3300.0100, L503.6030, L3000.0375, L503.6550, L501.5101, L3400.0700, L501.4700, L3100.5020, L300.3900, L3890.6200, L501.6710, L506.1000, L501.9520 ####[facility] [address] [place], [place], [phone] ALT [Catalytic activity/Vol] 70 U/L High 16-61 [facility] Comment on above: Performed By: #### L 3100.3425, L3100.5450, L500.4100, L500.4050, L3890.6005, L3300.0100, L503.6030, L3000.0375, L503.6550, L501.5101, L3400.0700, L501.4700, L3100.5020, L300.3900, L3890.6200, L501.6710, L506.1000, L501.9520 ####[facility] [address] [place], [place], [phone] AST [Catalytic activity/Vol] 64 U/L High 15-37 [facility] Comment on above: Performed By: #### L 3100.3425, L3100.5450, L500.4100, L500.4050, L3890.6005, L3300.0100, L503.6030, L3000.0375, L503.6550, L501.5101, L3400.0700, L501.4700, L3100.5020, L300.3900, L3890.6200, L501.6710, L506.1000, L501.9520 ####[facility] [address] [place], [place], [phone] Bilirubin [Mass/Vol] 14.00 mg/dL High 0.20-1.00 [facility] Comment on above: Result Comment: For patients on eltrombopag therapy, use of Dimension [place] TBIL is not recommended. Performed By: #### L 3100.3425, L3100.5450, L500.4100, L500.4050, L3890.6005, L3300.0100, L503.6030, L3000.0375, L503.6550, L501.5101, L3400.0700, L501.4700, L3100.5020, L300.3900, L3890.6200, L501.6710, L506.1000, L501.9520 ####[facility] [address] [place], [place], [phone](340) BUN/CRE 13.9 RATIO Normal 10-20 [facility] Comment on above: Performed By: #### L 3100.3425, L3100.5450, L500.4100, L500.4050, L3890.6005, L3300.0100, L503.6030, L3000.0375, L503.6550, L501.5101, L3400.0700, L501.4700, L3100.5020, L300.3900, L3890.6200, L501.6710, L506.1000, L501.9520 ####[facility] [address] [place], [place], [phone]82) CA,Total 9.9 mg/dL Normal 8.5-10.1 [facility] Comment on above: Performed By: #### L 3100.3425, L3100.5450, L500.4100, L500.4050, L3890.6005, L3300.0100, L503.6030, L3000.0375, L503.6550, L501.5101, L3400.0700, L501.4700, L3100.5020, L300.3900, L3890.6200, L501.6710, L506.1000, L501.9520 ####[facility] [address] [place], [place], [phone](133) Chloride [Moles/Vol] 105 mmol/L Normal 98-107 [facility] Comment on above: Performed By: #### L 3100.3425, L3100.5450, L500.4100, L500.4050, L3890.6005, L3300.0100, L503.6030, L3000.0375, L503.6550, L501.5101, L3400.0700, L501.4700, L3100.5020, L300.3900, L3890.6200, L501.6710, L506.1000, L501.9520 ####[facility] [address] [place], [place], [phone] CO2 [Moles/Vol] 25.0 mmol/L Normal 21.0-32.0 [facility] Comment on above: Performed By: #### L 3100.3425, L3100.5450, L500.4100, L500.4050, L3890.6005, L3300.0100, L503.6030, L3000.0375, L503.6550, L501.5101, L3400.0700, L501.4700, L3100.5020, L300.3900, L3890.6200, L501.6710, L506.1000, L501.9520 ####[facility] [address] [place], [address] Creatinine [Mass/Vol] 1.22 mg/dL Normal 0.70-1.30 [facility] Comment on above: Result Comment: Mode rate Icterus, Result may be falsely decreased.The validity of the calculated GFR GFRAA in patients over70 years has not been determined. Clinical correlation isessential. Performed By: #### L 3100.3425, L3100.5450, L500.4100, L500.4050, L3890.6005, L3300.0100, L503.6030, L3000.0375, L503.6550, L501.5101, L3400.0700, L501.4700, L3100.5020, L300.3900, L3890.6200, L501.6710, L506.1000, L501.9520 ####[facility] [address] [place], [address] EST GFR - AA 84 mL/min Normal >60 [facility] Comment on above: Result Comment: Afri can [place] GFR Calc Performed By: #### L 3100.3425, L3100.5450, L500.4100, L500.4050, L3890.6005, L3300.0100, L503.6030, L3000.0375, L503.6550, L501.5101, L3400.0700, L501.4700, L3100.5020, L300.3900, L3890.6200, L501.6710, L506.1000, L501.9520 ####[facility] [address] [place], [address] GAP 7 Normal 5-15 [facility] Comment on above: Performed By: #### L 3100.3425, L3100.5450, L500.4100, L500.4050, L3890.6005, L3300.0100, L503.6030, L3000.0375, L503.6550, L501.5101, L3400.0700, L501.4700, L3100.5020, L300.3900, L3890.6200, L501.6710, L506.1000, L501.9520 ####[facility] [address] [place], [address] GFR/1.73 sq M.predicted among non-blacks MDRD (S/P/Bld) [Vol rate/Area] 70 mL/min/{1.73_m2} Normal >60 [facility] Comment on above: Result Comment: Non- GFR Calc Performed By: #### L 3100.3425, L3100.5450, L500.4100, L500.4050, L3890.6005, L3300.0100, L503.6030, L3000.0375, L503.6550, L501.5101, L3400.0700, L501.4700, L3100.5020, L300.3900, L3890.6200, L501.6710, L506.1000, L501.9520 ####[facility] [address] [place], [place], [phone] Globulin (S) [Mass/Vol] 3.8 g/dL Normal 2.2-4.2 [facility] Comment on above: Performed By: #### L 3100.3425, L3100.5450, L500.4100, L500.4050, L3890.6005, L3300.0100, L503.6030, L3000.0375, L503.6550, L501.5101, L3400.0700, L501.4700, L3100.5020, L300.3900, L3890.6200, L501.6710, L506.1000, L501.9520 ####[facility] [address] [place], [place], [phone] Glucose [Mass/Vol] 112 mg/dL High 74-106 [facility] Comment on above: Result Comment: Fast ing Glucose result from 100 to 125 mg/dLsuggests IMPAIRED HOMEOSTASIS per A.D.A. criteria. Performed By: #### L 3100.3425, L3100.5450, L500.4100, L500.4050, L3890.6005, L3300.0100, L503.6030, L3000.0375, L503.6550, L501.5101, L3400.0700, L501.4700, L3100.5020, L300.3900, L3890.6200, L501.6710, L506.1000, L501.9520 ####[facility] [address] [place], [place], [phone] Potassium [Moles/Vol] 4.0 mmol/L Normal 3.5-5.1 [facility] Comment on above: Performed By: #### L 3100.3425, L3100.5450, L500.4100, L500.4050, L3890.6005, L3300.0100, L503.6030, L3000.0375, L503.6550, L501.5101, L3400.0700, L501.4700, L3100.5020, L300.3900, L3890.6200, L501.6710, L506.1000, L501.9520 ####[facility] [address] [place], [place], [phone](192) Sodium [Moles/Vol] 137 mmol/L Normal 136-145 [facility] Comment on above: Performed By: #### L 3100.3425, L3100.5450, L500.4100, L500.4050, L3890.6005, L3300.0100, L503.6030, L3000.0375, L503.6550, L501.5101, L3400.0700, L501.4700, L3100.5020, L300.3900, L3890.6200, L501.6710, L506.1000, L501.9520 ####[facility] [address] [place], [place], [phone] T PROT 7.0 g/dL Normal 6.4-8.2 [facility] Comment on above: Result Comment: Mode rate Icterus, Result may be falsely decreased. Performed By: #### L 3100.3425, L3100.5450, L500.4100, L500.4050, L3890.6005, L3300.0100, L503.6030, L3000.0375, L503.6550, L501.5101, L3400.0700, L501.4700, L3100.5020, L300.3900, L3890.6200, L501.6710, L506.1000, L501.9520 ####[facility] [address] [place], [place], [address] Urea nitrogen [Mass/Vol] 17 mg/dL Normal 7-18 [facility] Comment on above: Performed By: #### L 3100.3425, L3100.5450, L500.4100, L500.4050, L3890.6005, L3300.0100, L503.6030, L3000.0375, L503.6550, L501.5101, L3400.0700, L501.4700, L3100.5020, L300.3900, L3890.6200, L501.6710, L506.1000, L501.9520 ####[facility] [address] [place], [place], [address] Copper, serumOrdered By: Mendoza Lui on 09-11-2024 Serum Copper 185 ug/dL High 69-132 [facility] Comment on above: Detection Limit = 5P erformed at: [facility] [address] [id number] Director: Raj Dick PhD, Phone: [phone] at: [facility] [address] [id number] Director: Kelly Jansen MD, Phone: [phone] DNA double strand Ab Qn (S)O rdered By: Francesco Lui on 09-11-2024 Anti-Double Strand DNA Antibody Not Reportable [facility] Estimated glomerular filtrat ion rate (GFR) AmericanOrdered By: Francesco Lui on 09-11-2024 Estimated GFR (MDRD) Amer 84 mL/min >60 [facility] Comment on above: GFR Calc Ferritinon 09-11-2024 Ferritin [Mass/Vol] 746 ng/mL High 26-388 [facility] Comment on above: Result Comment: Mode rate Icterus, Result may be falsely decreased. Performed By: #### L 3100.3425, L3100.5450, L500.4100, L500.4050, L3890.6005, L3300.0100, L503.6030, L3000.0375, L503.6550, L501.5101, L3400.0700, L501.4700, L3100.5020, L300.3900, L3890.6200, L501.6710, L506.1000, L501.9520 ####[facility] [address] [place], [address] Ferritin measurementOrdered By: Francesco Lui on 09-11-2024 Ferritin [Mass/Vol] 746 ng/mL High 26-388 [facility] Comment on above: Moderate Icterus, Re sult may be falsely decreased. Gamma globulin Elph [Mass/Vo l]Ordered By: Francesco Lui on 09-11-2024 Gamma Globulins (AYDEN) 0.8 g/dL 0.4-1.8 [facility] Gamma glutamyl transferase ( GGT) measurementOrdered By: Francesco Lui on 09-11-2024 Amylase [Catalytic activity/Vol] 69 U/L High 0-65 [facility] Gastroenterology Visit Repor ton 09-11-2024 Gastroenterology Visit Report Normal [facility] Glomerular filtration rate ( GFR) estimationOrdered By: Francesco Lui on 09-11-2024 Estimated GFR (MDRD) Non-Af Amer 70 mL/min >60 [facility] Comment on above: Non- GFR Calc Glucose measurementOrdered B y: Francesco Lui on 09-11-2024 Glucose [Mass/Vol] 112 mg/dL High 74-106 [facility] Comment on above: Fasting Glucose resu lt from 100 to 125 mg/dL suggests IMPAIRED HOMEOSTASIS per A.D.A. criteria. HBV surface Ag IA QlOrdered By: Francesco Lui on 09-11-2024 Hepatitis B Surface Antigen Negative Negative [facility] HBV surface IgG Ql (S)Ordere d By: Francesco Lui on 09-11-2024 Hepatitis B Surface Antibody Non-Reactive [facility] Comment on above: Non Reactive: Incons istent with immunity less than <10 mIU/mL Reactive: Consistent with immunity greater than or equal to 10 mIU/mL HIV 1+2 Ab+HIV1 p24 Ag IA Ql Ordered By: Francesco Lui on 09-11-2024 HIV (1&2) Antibody Non-Reactive Nonreactive [facility] Hepatitis A virus IgM antibo dy assayOrdered By: Francesco Lui on 09-11-2024 Hepatitis A IgM Antibody Negative Negative [facility] Comment on above: A negative anti-HAV IgM result suggests no recent orcurrent HAV infection. Hepatitis B virus core IgM a ntibody assayOrdered By: Francesco Lui on 09-11-2024 Hepatitis B Core IgM Antibody Negative Negative [facility] Hepatitis C virus antibody a ssayOrdered By: Francesco Lui on 09-11-2024 Hepatitis C Antibody (EIA) Non-Reactive Non Reactive [facility] High density lipoprotein (HD L) measurementOrdered By: Francesco Lui on 09-11-2024 Cholesterol in HDL [Mass/Vol] 7 mg/dL Low >40 [facility] Comment on above: The drugs N-Acetylcy steine and Metamizole may falsely depress this assay. Reference Range HDL <40 mg/dL Low HDL Cholesterol HDL >or= 60 mg/dL High HDL Cholesterol IgA [Mass/Vol]Ordered By: Gracie Lui on 09-11-2024 Immunoglobulin A 150 mg/dL 90-386 [facility] IgG [Mass/Vol]Ordered By: Gracie Lui on 09-11-2024 Immunoglobulin G 904 mg/dL 603-1613 [facility] Immunoglobulin M measurement Ordered By: Francesco Lui on 09-11-2024 Immunoglobulin M 48 mg/dL 20-172 [facility] International normalized rat io (INR) calculationOrdered By: Francesco Lui on 09-11-2024 INR Coag (Bld) [Relative time] 0.9 {INR} [facility] Interpretation IEP [Interp]O rdered By: Francesco Lui on 09-11-2024 Immunofixation Screen Comment . [facility] Comment on above: No monoclonality det ected. Iron (Unsp spec) [Mass/Mass] Ordered By: Francesco Lui on 09-11-2024 Iron [Mass/Vol] 123 ug/dL 65-175 [facility] Iron saturation [Mass fracti on]Ordered By: Francesco Lui on 09-11-2024 Iron Saturation 32.5 % 15.0-55.0 [facility] Iron+Iron Binding Capacityon 09-11-2024 Iron [Mass/Vol] 123 ug/dL Normal 65-175 [facility] Comment on above: Performed By: #### L 3100.4445, L3100.5450, L500.4100, L500.4050, L3890.6005, L3300.0100, L503.6030, L3000.0375, L503.6550, L501.5101, L3400.0700, L501.4700, L3100.5020, L300.3900, L3890.6200, L501.6710, L506.1000, L501.9520 ####[facility] [address] [place], [place], [phone] IRON SATURATION 32.5 Normal 15.0-55.0 [facility] Comment on above: Performed By: #### L 3100.3425, L3100.5450, L500.4100, L500.4050, L3890.6005, L3300.0100, L503.6030, L3000.0375, L503.6550, L501.5101, L3400.0700, L501.4700, L3100.5020, L300.3900, L3890.6200, L501.6710, L506.1000, L501.9520 ####[facility] [address] [place], [address] TIBC 378 ug/dL Normal 250-450 [facility] Comment on above: Performed By: #### L 3100.3425, L3100.5450, L500.4100, L500.4050, L3890.6005, L3300.0100, L503.6030, L3000.0375, L503.6550, L501.5101, L3400.0700, L501.4700, L3100.5020, L300.3900, L3890.6200, L501.6710, L506.1000, L501.9520 ####[facility] [address] [place], [address] Tessa-1 antibody assayOrdered B y: Francesco Lui on 09-11-2024 TESSA-1 Antibody Not Reportable [facility] Laboratory - Chemistry and C hemistry - challengeOrdered By: Francesco Lui on 09-11-2024 AST [Catalytic activity/Vol] 64 U/L High 15-37 [facility] Lipid Profileon 09-11-2024 Cholesterol [Mass/Vol] 215 mg/dL High 200 [facility] Comment on above: Result Comment: Mode rate Icterus, Result may be falsely decreased. <200 mg/dL Desirable 200-240 mg/dL Borderline >240 mg/dL High Risk Performed By: #### L 3100.3425, L3100.5450, L500.4100, L500.4050, L3890.6005, L3300.0100, L503.6030, L3000.0375, L503.6550, L501.5101, L3400.0700, L501.4700, L3100.5020, L300.3900, L3890.6200, L501.6710, L506.1000, L501.9520 ####[facility] [address] [place], [place], [phone](509) Cholesterol in HDL [Mass/Vol] 7 mg/dL Low [facility] Comment on above: Result Comment: The drugs N-Acetylcysteine and Metamizole may falselydepress this assay. Reference Range HDL <40 mg/dL Low HDL Cholesterol HDL >or= 60 mg/dL High HDL Cholesterol Performed By: #### L 3100.3425, L3100.5450, L500.4100, L500.4050, L3890.6005, L3300.0100, L503.6030, L3000.0375, L503.6550, L501.5101, L3400.0700, L501.4700, L3100.5020, L300.3900, L3890.6200, L501.6710, L506.1000, L501.9520 ####[facility] [address] [place], [address] Cholesterol in LDL [Mass/Vol] 139 mg/dL High 0-130 [facility] Comment on above: Performed By: #### L 3100.3425, L3100.5450, L500.4100, L500.4050, L3890.6005, L3300.0100, L503.6030, L3000.0375, L503.6550, L501.5101, L3400.0700, L501.4700, L3100.5020, L300.3900, L3890.6200, L501.6710, L506.1000, L501.9520 ####[facility] [address] [place], [place], [address] Cholesterol in VLDL [Mass/Vol] 69 mg/dL High 5-40 [facility] Comment on above: Performed By: #### L 3100.3425, L3100.5450, L500.4100, L500.4050, L3890.6005, L3300.0100, L503.6030, L3000.0375, L503.6550, L501.5101, L3400.0700, L501.4700, L3100.5020, L300.3900, L3890.6200, L501.6710, L506.1000, L501.9520 ####[facility] [address] [facility] [place], [address] Triglyceride [Mass/Vol] 345 mg/dL High [facility] Comment on above: Result Comment: The drugs N-Acetylcysteine and Metamizole may falselydepress this assay.Moderate Icterus, Result may be falsely increased.Serum Triglycerides Reference Interval Normal <150 mg/dL Borderline high 150 - 199 mg/dL High 200 - 499 mg/dL Very High > or = 500 mg/dL Performed By: #### L 3100.3425, L3100.5450, L500.4100, L500.4050, L3890.6005, L3300.0100, L503.6030, L3000.0375, L503.6550, L501.5101, L3400.0700, L501.4700, L3100.5020, L300.3900, L3890.6200, L501.6710, L506.1000, L501.9520 ####[facility] [address] [place], [place], [phone] Low density lipoprotein (LDL ) cholesterol measurementOrdered By: Francesco Lui on 09-11-2024 Cholesterol in LDL [Mass/Vol] 139 mg/dL High 0-130 [facility] No Panel InformationOrdered By: Francesco Lui on 09-11-2024 Hepatitis C Antibody Comment Comment . [facility] Comment on above: Not infected with HC V unless early or acute infection issuspected (which may be delayed in an immunocompromisedindividual), or other evidence exists to indicate HCVinfection. Potassium measurementOrdered By: Francesco Lui on 09-11-2024 Potassium [Moles/Vol] 4.0 mmol/L 3.5-5.1 [facility] Protein Fractions Immunofixa tion Emanuel [Interp]Ordered By: Francesco Lui on 09-11-2024 M-Mychal (AYDEN) Not Observed g/dL Not Observed [facility] Prothrombin Time w/INRon INR Coag (PPP) [Relative time] 0.9 {INR} Normal [facility] Comment on above: Performed By: #### L 3100.3425, L3100.5450, L500.4100, L500.4050, L3890.6005, L3300.0100, L503.6030, L3000.0375, L503.6550, L501.5101, L3400.0700, L501.4700, L3100.5020, L300.3900, L3890.6200, L501.6710, L506.1000, L501.9520 ####[facility] [id number] [place], [place], [id number] PT Coag (PPP) [Time] 12.3 s Normal 11.7-14.9 [facility] Comment on above: Performed By: #### L 3100.3425, L3100.5450, L500.4100, L500.4050, L3890.6005, L3300.0100, L503.6030, L3000.0375, L503.6550, L501.5101, L3400.0700, L501.4700, L3100.5020, L300.3900, L3890.6200, L501.6710, L506.1000, L501.9520 ####[facility] [id number] [place], [address] Prothrombin timeOrdered By: Francesco Lui on 09-11-2024 PT Coag (PPP) [Time] 12.3 s 11.7-14.9 [facility] [employer]GRESSIVE [employer] MAKER abOrdered By: Francesco Acharya and on 09-11-2024 [employer] Antibody Not Reportable [facility] SCL-70 extractable nuclear A b Qn (S)Ordered By: Farncesco Lui on 09-11-2024 Scl-70 (Scleroderma) Antibody Not Reportable [facility] SS-A IgG antibody assayOrder ed By: Francesco Lui on 09-11-2024 SS-A/Ro IgG Antibody Not Reportable [facility] SS-B IgG antibody assayOrder ed By: Francesco Lui on 09-11-2024 SS-B/La IgG Antibody Not Reportable [facility] Serum albumin/globulin ratio Ordered By: Francesco Lui on 09-11-2024 Albumin/Globulin (AYDEN) 1.1 0.7-1.7 [facility] Serum anion gap measurementO rdered By: Francesco Lui on 09-11-2024 Anion gap [Moles/Vol] 7 mmol/L 5-15 [facility] Serum globulin measurement ( mass/volume)Ordered By: Francesco Lui on 09-11-2024 Globulin (S) [Mass/Vol] 3.2 g/dL 2.2-3.9 [facility] Serum or plasma alanine mays otransferase (ALT) measurementOrdered By: Francesco Lui on 09-11-2024 ALT [Catalytic activity/Vol] 70 U/L High 16-61 [facility] Serum or plasma albumin marquise urement (mass/volume)Ordered By: Francesco Lui on 09-11-2024 Albumin [Mass/Vol] 3.2 g/dL 3.2-5.0 [facility] Serum or plasma alkaline daniel sphatase measurementOrdered By: Francesco Lui on 09-11-2024 ALP [Catalytic activity/Vol] 155 U/L High 45-117 [facility] Serum or plasma calcium marquise urement (mass/volume)Ordered By: Francesco Lui on 09-11-2024 Calcium [Mass/Vol] 9.9 mg/dL 8.5-10.1 [facility] Serum or plasma cholesterol measurement (mass/volume)Ordered By: Francesco Lui on 09-11-2024 Cholesterol [Mass/Vol] 215 mg/dL High <200 [facility] Comment on above: Moderate Icterus, Re sult may be falsely decreased. <200 mg/dL Desirable 200-240 mg/dL Borderline >240 mg/dL High Risk Serum or plasma creatinine m easurement (mass/volume)Ordered By: Francesco Lui on 09-11-2024 Creatinine [Mass/Vol] 1.22 mg/dL 0.70-1.30 [facility] Comment on above: Moderate Icterus, Re sult may be falsely decreased.The validity of the calculated GFR & GFRAA in patients over 70 years has not been determined. Clinical correlation is essential. Serum or plasma protein marquise urement (mass/volume)Ordered By: Francesco Lui on 09-11-2024 Protein [Mass/Vol] 6.5 g/dL 6.0-8.5 [facility] Serum or plasma urea nitroge n measurement (mass/volume)Ordered By: Francesco Lui on 09-11-2024 Urea nitrogen [Mass/Vol] 17 mg/dL 7-18 [facility] Batista antibody assayOrdered By: Francesco Lui on 09-11-2024 SM Antibody Not Reportable [facility] Sodium levelOrdered By: Frederick Lui on 09-11-2024 Sodium [Moles/Vol] 137 mmol/L 136-145 [facility] TIBCOrdered By: Francesco love on 09-11-2024 Total Iron Binding Capacity 378 ug/dL 250-450 [facility] TSH QnOrdered By: Francesco Acharya and on 09-11-2024 Thyroid Stimulating Hormone (TSH) 0.918 uIU/mL 0.358-3.740 [facility] Thyroid Stim Hormone (TSH)on 09-11-2024 TSH 0.918 uIU/mL Normal 0.358-3.740 [facility] Comment on above: Performed By: #### L 3100.3425, L3100.5450, L500.4100, L500.4050, L3890.6005, L3300.0100, L503.6030, L3000.0375, L503.6550, L501.5101, L3400.0700, L501.4700, L3100.5020, L300.3900, L3890.6200, L501.6710, L506.1000, L501.9520 ####[facility] [address] [place], [place], [address] Total proteinOrdered By: Mendoza Lui on 09-11-2024 Protein [Mass/Vol] 7.0 g/dL 6.4-8.2 [facility] Comment on above: Moderate Icterus, Re sult may be falsely decreased. Triglycerides measurementOrd ered By: Francesco Lui on 09-11-2024 Triglyceride [Mass/Vol] 345 mg/dL High <199 [facility] Comment on above: The drugs N-Acetylcy steine and Metamizole may falsely depress this assay. Moderate Icterus, Result may be falsely increased.Serum Triglycerides Reference Interval Normal <150 mg/dL Borderline high 150 - 199 mg/dL High 200 - 499 mg/dL Very High > or = 500 mg/dL Very low density lipoprotein (VLDL) cholesterol measurementOrdered By: Francesco Lui on 09-11-2024 VLDL Cholesterol 69 mg/dL High 5-40 [facility] QUIQUE Comprehensive Panelon QUIQUE TABLE Comment Normal . [facility] Comment on above: Result Comment: Auto antibody Disease Association ------- Condition Frequency ---------Antinuclear Antibody, SLE, mixed connectiveDirect (QUIQUE-D) tissue diseases ---------dsDNA SLE 40 - 60% ---------Chromatin Drug induced SLE 90% SLE 48 - 97% ---------SSA (Ro) SLE 25 - 35% Sjogren's Syndrome 40 - 70% Lupus 100% ---------SSB (La) SLE 10% Sjogren's Syndrome 30% ---------Sm (anti-Batista) SLE 15 - 30% ---------PROGRESSIVE DIE MAKER Mixed Connective Tissue Disease 95%(U1 nRNP, SLE 30 - 50%anti-ribonucleoprotein) Polymyositis and/or Dermatomyositis 20% ---------Scl-70 (antiDNA Scleroderma (diffuse) 20 - 35%topoisomerase) Crest 13% ---------Tessa-1 Polymyositis and/or Dermatomyositis 20 - 40% ---------Centromere B Scleroderma - Crest variant 80%Performed at: [address] [id number] Director: Raj Dick PhD, Phone: [phone] Performed By: #### L 3100.5440, L3100.5020 ####[facility] [address] [place], [address] ANTI-CENT B AB <0.2 Normal 0.0-0.9 [facility] Comment on above: Performed By: #### L 3100.5440, L3100.5020 ####[facility] [address] [place], [address] ANTI-DNA (DS)AB <1 Normal 0-9 [facility] Comment on above: Result Comment: Nega tive <5 Equivocal 5 - 9 Positive >9 Performed By: #### L 3100.5440, L3100.5020 ####[facility] [address] [place], [address] ANTI-TESSA-1 <0.2 Normal 0.0-0.9 [facility] Comment on above: Performed By: #### L 3100.5440, L3100.5020 ####[facility] [address] [place], [address] ANTI-SS-A < 0.2 Normal 0.0-0.9 [facility] Comment on above: Performed By: #### L 3100.5440, L3100.5020 ####[facility] [address] [place], [address] ANTI-SS-B < 0.2 Normal 0.0-0.9 [facility] Comment on above: Performed By: #### L 3100.5440, L3100.5020 ####[facility] [address] [place], [address] ANTICHROMATIN <0.2 Normal 0.0-0.9 [facility] Comment on above: Performed By: #### L 3100.5440, L3100.5020 ####[facility] [address] [place], [address] ANTISCLERODERM <0.2 Normal 0.0-0.9 [facility] Comment on above: Performed By: #### L 3100.5440, L3100.5020 ####[facility] [address] [place], [address] PROGRESSIVE DIE MAKER Ab <0.2 Normal 0.0-0.9 [facility] Comment on above: Performed By: #### L 3100.5440, L3100.5020 ####[facility] [address] [place], [address] BATISTA Ab <0.2 Normal 0.0-0.9 [facility] Comment on above: Performed By: #### L 3100.5440, L3100.5020 ####[facility] [address] [place], [address] Carbohydrate AG 19-9on 09-08 CA 19-9 139 U/mL High 0-35 [facility] Comment on above: Result Comment: [facility] Electrochemiluminescence Immunoassay(ECLIA)Values obtained with different assay methods or kits cannotbe used interchangeably. Results cannot be interpreted asabsolute evidence of the presence or absence of malignantdisease.Performed at: - [facility] [id number] Director: Raj Dick PhD, Phone: [phone] Performed By: #### L 3100.9022, L3953.9513 ####[facility] [address] [place], [address] ERCP Reporton 09-08-2024 ERCP Report Normal [facility] Albumin to globulin ratioOrd ered By: Cruz Arciniega on 09-07-2024 Albumin/Globulin [Mass ratio] 0.8 {ratio} Low 0.9-2.4 [facility] Bilirubin, totalOrdered By: Cruz Arciniega on 09-07-2024 Bilirubin [Mass/Vol] 16.70 mg/dL High 0.20-1.00 [facility] Comment on above: Critical Result(s) C alled at: 06:50:04 09/07/2024 by: Leesa Goodman to [facility]. Results read back by same. For patients on eltrombopag therapy, use of Dimension [place] TBIL is not recommended. Blood urea nitrogen (BUN)/cr eatinine ratioOrdered By: Cruz Arciniega on 09-07-2024 Urea nitrogen/Creatinine [Mass ratio] 16.8 mg/mg 10-20 [facility] Carbon dioxide measurementOr dered By: Cruz Arciniega on 09-07-2024 CO2 [Moles/Vol] 26.0 mmol/L 21.0-32.0 [facility] Chloride measurementOrdered By: Cruz Arciniega on 09-07-2024 Chloride [Moles/Vol] 106 mmol/L 98-107 [facility] Comprehensive Metabolic Prof ilon 09-07-2024 Albumin [Mass/Vol] 2.6 g/dL Low 3.2-5.0 [facility] Comment on above: Performed By: #### L 500.4051 ####[facility] [address] [place], [place], [address] Albumin/Globulin [Mass ratio] 0.8 {ratio} Low 0.9-2.4 [facility] Comment on above: Performed By: #### L 500.4050 ####[facility] [address] [place], [address] ALK P 150 U/L High 45-117 [facility] Comment on above: Performed By: #### L 500.4050 ####[facility] [address] [place], [address] ALT [Catalytic activity/Vol] 50 U/L Normal 16-61 [facility] Comment on above: Performed By: #### L 500.4050 ####[facility] [address] [place], [address] AST [Catalytic activity/Vol] 47 U/L High 15-37 [facility] Comment on above: Performed By: #### L 500.4050 ####[facility] [address] [place], [address] Bilirubin [Mass/Vol] 16.70 mg/dL Invalid Interpretation Code 0.20-1.00 [facility] Comment on above: Result Comment: Crit ical Result(s) Called at: 06:50:04 09/07/2024 by:Leesa Goodman to [facility]. Results read back by same. For patients on eltrombopag therapy, use of Dimension [place] TBIL is not recommended. Performed By: #### L 500.4050 ####[facility] [address] [place], [address] BUN/CRE 16.8 RATIO Normal 10-20 [facility] Comment on above: Performed By: #### L 500.4050 ####[facility] [address] [place], [address] CA,Total 9.4 mg/dL Normal 8.5-10.1 [facility] Comment on above: Performed By: #### L 500.4050 ####[facility] [address] [place], [address] Chloride [Moles/Vol] 106 mmol/L Normal 98-107 [facility] Comment on above: Performed By: #### L 500.4050 ####[facility] [address] [place], [address] CO2 [Moles/Vol] 26.0 mmol/L Normal 21.0-32.0 [facility] Comment on above: Performed By: #### L 500.4050 ####[facility] [address] [place], [address] Creatinine [Mass/Vol] 1.19 mg/dL Normal 0.70-1.30 [facility] Comment on above: Result Comment: Mode rate Icterus, Result may be falsely decreased.The validity of the calculated GFR GFRAA in patients over70 years has not been determined. Clinical correlation isessential. Performed By: #### L 500.4050 ####[facility] [address] [place], [address] ECRCL 93.41 ml/min Normal [facility] Comment on above: Performed By: #### L 500.4050 ####[facility] [address] [place], [address] EST GFR - AA 87 mL/min Normal >60 [facility] Comment on above: Result Comment: Afri can [place] GFR Calc Performed By: #### L 500.4050 ####[facility] [address] [place], [address] GAP 6 Normal 5-15 [facility] Comment on above: Performed By: #### L 500.4050 ####[facility] [address] [place], [address] GFR/1.73 sq M.predicted among non-blacks MDRD (S/P/Bld) [Vol rate/Area] 72 mL/min/{1.73_m2} Normal >60 [facility] Comment on above: Result Comment: Non- GFR Calc Performed By: #### L 500.4050 ####[facility] [address] [place], [address] Globulin (S) [Mass/Vol] 3.4 g/dL Normal 2.2-4.2 [facility] Comment on above: Performed By: #### L 500.4050 ####[facility] [address] [place], [address] Glucose [Mass/Vol] 100 mg/dL Normal 74-106 [facility] Comment on above: Result Comment: Fast ing Glucose result from 100 to 125 mg/dLsuggests IMPAIRED HOMEOSTASIS per A.D.A. criteria. Performed By: #### L 500.4050 ####[facility] [address] [place], [address] Potassium [Moles/Vol] 3.8 mmol/L Normal 3.5-5.1 [facility] Comment on above: Performed By: #### L 500.4050 ####[facility] [address] [place], [address] Sodium [Moles/Vol] 138 mmol/L Normal 136-145 [facility] Comment on above: Performed By: #### L 500.4050 ####[facility] [address] [place], [address] T PROT 6.0 g/dL Low 6.4-8.2 [facility] Comment on above: Result Comment: Mode rate Icterus, Result may be falsely decreased. Performed By: #### L 500.4050 ####[facility] [address] [place], [address] Urea nitrogen [Mass/Vol] 20 mg/dL High 7-18 [facility] Comment on above: Performed By: #### L 500.4050 ####[facility] [address] [place], [address] Estimated glomerular filtrat ion rate (GFR) AmericanOrdered By: Cruz Arciniega on 09-07-2024 Estimated GFR (MDRD) Amer 87 mL/min >60 [facility] Comment on above: GFR Calc Estimation of creatinine alyson aranceOrdered By: Cruz Arciniega on 09-07-2024 Estimated Creatinine Clearance Calc 93.41 ml/min [facility] Glomerular filtration rate ( GFR) estimationOrdered By: Cruz Arciniega on 09-07-2024 Estimated GFR (MDRD) Non-Af Amer 72 mL/min >60 [facility] Comment on above: Non- GFR Calc Glucose measurementOrdered B y: Cruz Arciniega on 09-07-2024 Glucose [Mass/Vol] 100 mg/dL 74-106 [facility] Comment on above: Fasting Glucose resu lt from 100 to 125 mg/dL suggests IMPAIRED HOMEOSTASIS per A.D.A. criteria. Laboratory - Chemistry and C hemistry - challengeOrdered By: Cruz Arciniega on 09-07-2024 AST [Catalytic activity/Vol] 47 U/L High 15-37 [facility] MR/PN.GIon 09-07-2024 MR/PN.GI Normal [facility] Potassium measurementOrdered By: Cruz Arciniega on 09-07-2024 Potassium [Moles/Vol] 3.8 mmol/L 3.5-5.1 [facility] Serum anion gap measurementO rdered By: Cruz Arciniega on 09-07-2024 Anion gap [Moles/Vol] 6 mmol/L 5-15 [facility] Serum globulin measurementOr dered By: Cruz Arciniega on 09-07-2024 Globulin (S) [Mass/Vol] 3.4 g/dL 2.2-4.2 [facility] Serum or plasma alanine mays otransferase (ALT) measurementOrdered By: Cruz Arciniega on 09-07-2024 ALT [Catalytic activity/Vol] 50 U/L 16-61 [facility] Serum or plasma albumin marquise urement (mass/volume)Ordered By: Cruz Arciniega on 09-07-2024 Albumin [Mass/Vol] 2.6 g/dL Low 3.2-5.0 [facility] Serum or plasma alkaline daniel sphatase measurementOrdered By: Cruz Arciniega on 09-07-2024 ALP [Catalytic activity/Vol] 150 U/L High 45-117 [facility] Serum or plasma calcium marquise urement (mass/volume)Ordered By: Cruz Arciniega on 09-07-2024 Calcium [Mass/Vol] 9.4 mg/dL 8.5-10.1 [facility] Serum or plasma creatinine m easurement (mass/volume)Ordered By: Cruz Arciniega on 09-07-2024 Creatinine [Mass/Vol] 1.19 mg/dL 0.70-1.30 [facility] Comment on above: Moderate Icterus, Re sult may be falsely decreased.The validity of the calculated GFR & GFRAA in patients over 70 years has not been determined. Clinical correlation is essential. Serum or plasma urea nitroge n measurement (mass/volume)Ordered By: Cruz Arciniega on 09-07-2024 Urea nitrogen [Mass/Vol] 20 mg/dL High 7-18 [facility] Sodium levelOrdered By: Truman Arciniega on 09-07-2024 Sodium [Moles/Vol] 138 mmol/L 136-145 [facility] Total proteinOrdered By: Dionne Arciniega on 09-07-2024 Protein [Mass/Vol] 6.0 g/dL Low 6.4-8.2 [facility] Comment on above: Moderate Icterus, Re sult may be falsely decreased. Alpha fetoprotein measuremen t as tumor markerOrdered By: Denys Babin on 09-06-2024 Tumor Marker Alpha Fetoprotein 3.2 ng/mL 0.0-6.9 [facility] Comment on above: [facility] El ectrochemiluminescence Immunoassay(ECLIA)Values obtained with different assay methods or kits cannotbe used interchangeably. Results cannot be interpreted asabsolute evidence of the presence or absence of malignantdisease.This test is not interpretable in females.Previous reported result: ng/mLEdited by: MODESTA on 09/14/24:921 AMENDED REPORT 09/14/24921 AFP TUMOR 2253 previously reported as: TEST RESULTS LIMITSAFP, Serum, Tumor Marker 3.2 ng/mL 0.0-6.9[facility] Electrochemiluminescence Immunoassay (ECLIA)Values obtained with different assay methods or kits cannot beused interchangeably. Results cannot be interpreted as absoluteevidence of the presence or absence of malignant disease.This test is not interpretable in females. TESTING PERFORMED AT [facility] [place]. ORIGINAL REPORT ON FILE IN LAB CONTAINS ADDITIONAL TEST SITE INFORMATION. Atypical perinuclear antineu trophil cytoplasmic antibodies measurementOrdered By: Denys Babin on 09-06-2024 Atypical p-ANCA <1:20 titer Neg:<1:20 [facility] Comment on above: Note: Specimen is ic teric.The atypical pANCA pattern has been observed in asignificant percentage of patients with ulcerative colitis,primary sclerosing cholangitis and autoimmune hepatitis. CA 19-9 agOrdered By: Andrade Babin on 09-06-2024 CA 19-9 Antigen 139 U/mL High 0-35 [facility] Comment on above: [facility] El ectrochemiluminescence Immunoassay(ECLIA)Values obtained with different assay methods or kits cannotbe used interchangeably. Results cannot be interpreted asabsolute evidence of the presence or absence of malignantdisease.Performed at: [address] [id number] Director: Raj Dick PhD, Phone: [phone] CBC-Complete Blood Cnt No Di ffon 09-06-2024 Erythrocyte distribution width (RBC) [Ratio] 17.0 % High 11.6-14.6 [facility] Comment on above: Performed By: #### L 100.0500 ####[facility] [address] [place], [address] Hematocrit (Bld) [Volume fraction] 38.6 % Low 40-54 [facility] Comment on above: Performed By: #### L 100.0500 ####[facility] [address] [place], [address] Hemoglobin (Bld) [Mass/Vol] 13.2 g/dL Normal 13.0-16.5 [facility] Comment on above: Performed By: #### L 100.0500 ####[facility] [address] [place], [address] MCH (RBC) [Entitic mass] 30.3 pg Normal 27.0-32.0 [facility] Comment on above: Performed By: #### L 100.0500 ####[facility] [address] [place], [address] MCHC (RBC) [Mass/Vol] 34.2 g/dL Normal 32-36 [facility] Comment on above: Performed By: #### L 100.0500 ####[facility] [address] [place], [address] MCV (RBC) [Entitic vol] 88.7 fL Normal 80-94 [facility] Comment on above: Performed By: #### L 100.0500 ####[facility] [address] [place], [address] Platelet mean volume (Bld) [Entitic vol] 9.5 fL Normal 6.2-12.0 [facility] Comment on above: Performed By: #### L 100.0500 ####[facility] [address] [place], [address] Platelets (Bld) [#/Vol] 291 10*3/uL Normal 150-450 [facility] Comment on above: Performed By: #### L 100.0500 ####[facility] [address] [place], [address] RBC (Bld) [#/Vol] 4.35 10*6/uL Low 4.6-6.2 [facility] Comment on above: Performed By: #### L 100.0500 ####[facility] [address] [place], [address] RDW SD 54.9 fl High 35.1-43.9 [facility] Comment on above: Performed By: #### L 100.0500 ####[facility] [address] [place], [address] WBC (Bld) [#/Vol] 6.8 10*3/uL Normal 4.4-11.0 [facility] Comment on above: Performed By: #### L 100.0500 ####[facility] [address] [place], [address] Centromere B antibody assayO rdered By: Denys Babin on 09-06-2024 Centromere B Antibody <0.2 AI 0.0-0.9 [facility] Chromatin antibody assayOrde red By: Denys Babin on 09-06-2024 Antichromatin Antibodies <0.2 AI 0.0-0.9 [facility] Comprehensive Metabolic Prof ilon 09-06-2024 Albumin [Mass/Vol] 2.8 g/dL Low 3.2-5.0 [facility] Comment on above: Performed By: #### L 500.4050, L501.5200, L501.2300 ####[facility] [address] [place], [address] Albumin/Globulin [Mass ratio] 0.8 {ratio} Low 0.9-2.4 [facility] Comment on above: Performed By: #### L 500.4050, L501.5200, L501.2300 ####[facility] [address] [place], [address] ALK P 165 U/L High 45-117 [facility] Comment on above: Performed By: #### L 500.4050, L501.5200, L501.2300 ####[facility] [address] [place], [address] ALT [Catalytic activity/Vol] 63 U/L High 16-61 [facility] Comment on above: Performed By: #### L 500.4050, L501.5200, L501.2300 ####[facility] [address] [place], [address] AST [Catalytic activity/Vol] 58 U/L High 15-37 [facility] Comment on above: Performed By: #### L 500.4050, L501.5200, L501.2300 ####[facility] [address] [place], [address] Bilirubin [Mass/Vol] 20.10 mg/dL Invalid Interpretation Code 0.20-1.00 [facility] Comment on above: Result Comment: Crit ical Result(s) Called at: 08:20:54 09/06/2024 by: CRISTIANO to [facility] Brewster. Results read back by same. For patients on eltrombopag therapy, use of Dimension [place] TBIL is not recommended. Performed By: #### L 500.4050, L501.5200, L501.2300 ####[facility] [address] [place], [address] BUN/CRE 11.9 RATIO Normal 10-20 [facility] Comment on above: Performed By: #### L 500.4050, L501.5200, L501.2300 ####[facility] [address] [place], [address] CA,Total 9.1 mg/dL Normal 8.5-10.1 [facility] Comment on above: Performed By: #### L 500.4050, L501.5200, L501.2300 ####[facility] [address] [place], [address] Chloride [Moles/Vol] 106 mmol/L Normal 98-107 [facility] Comment on above: Performed By: #### L 500.4050, L501.5200, L501.2300 ####[facility] [address] [place], [address] CO2 [Moles/Vol] 27.0 mmol/L Normal 21.0-32.0 [facility] Comment on above: Performed By: #### L 500.4050, L501.5200, L501.2300 ####[facility] [address] [place], [address] Creatinine [Mass/Vol] 1.18 mg/dL Normal 0.70-1.30 [facility] Comment on above: Result Comment: Mode rate Icterus, Result may be falsely decreased.The validity of the calculated GFR GFRAA in patients over70 years has not been determined. Clinical correlation isessential. Performed By: #### L 500.4050, L501.5200, L501.2300 ####[facility] [address] [place], [address] ECRCL 94.20 ml/min Normal [facility] Comment on above: Performed By: #### L 500.4050, L501.5200, L501.2300 ####[facility] [address] [place], [address] EST GFR - AA 88 mL/min Normal >60 [facility] Comment on above: Result Comment: Afri can [place] GFR Calc Performed By: #### L 500.4050, L501.5200, L501.2300 ####[facility] [address] [place], [address] GAP 6 Normal 5-15 [facility] Comment on above: Performed By: #### L 500.4050, L501.5200, L501.2300 ####[facility] [address] [place], [address] GFR/1.73 sq M.predicted among non-blacks MDRD (S/P/Bld) [Vol rate/Area] 72 mL/min/{1.73_m2} Normal >60 [facility] Comment on above: Result Comment: Non- GFR Calc Performed By: #### L 500.4050, L501.5200, L501.2300 ####[facility] [address] [place], [address] Globulin (S) [Mass/Vol] 3.3 g/dL Normal 2.2-4.2 [facility] [facility] Comment on above: Performed By: #### L 500.4050, L501.5200, L501.2300 ####[facility] [address] [place], [address] Glucose [Mass/Vol] 112 mg/dL High 74-106 [facility] Comment on above: Result Comment: Fast ing Glucose result from 100 to 125 mg/dLsuggests IMPAIRED HOMEOSTASIS per A.D.A. criteria. Performed By: #### L 500.4050, L501.5200, L501.2300 ####[facility] [address] [place], [address] Potassium [Moles/Vol] 4.1 mmol/L Normal 3.5-5.1 [facility] Comment on above: Performed By: #### L 500.4050, L501.5200, L501.2300 ####[facility] [address] [place], [address] Sodium [Moles/Vol] 140 mmol/L Normal 136-145 [facility] Comment on above: Performed By: #### L 500.4050, L501.5200, L501.2300 ####[facility] [address] [place], [address] T PROT 6.1 g/dL Low 6.4-8.2 [facility] Comment on above: Result Comment: Mode rate Icterus, Result may be falsely decreased. Performed By: #### L 500.4050, L501.5200, L501.2300 ####[facility] [address] [place], [address] Urea nitrogen [Mass/Vol] 14 mg/dL Normal 7-18 [facility] Comment on above: Performed By: #### L 500.4050, L501.5200, L501.2300 ####[facility] [address] [place], [address] DNA double strand Ab Qn (S)O rdered By: Denys Babin on 09-06-2024 Anti-Double Strand DNA Antibody <1 IU/mL 0-9 [facility] Comment on above: Negative <5 Equivoca l 5 - 9 Positive >9 Erythrocyte distribution wid th ratioOrdered By: Cruz Arciniega on 09-06-2024 Erythrocyte distribution width (RBC) [Ratio] 17.0 % High 11.6-14.6 [facility] Erythrocyte distribution wid th standard deviationOrdered By: Cruz Arciniega on 09-06-2024 Erythrocyte distribution width (RBC) [Entitic vol] 54.9 fL High 35.1-43.9 [facility] Hematocrit Auto (Bld) [Volum e fraction]Ordered By: Cruz Arciniega on 09-06-2024 Hematocrit (Bld) [Volume fraction] 38.6 % Low 40-54 [facility] Hemoglobin measurementOrdere d By: Cruz Arciniega on 09-06-2024 Hemoglobin (Bld) [Mass/Vol] 13.2 g/dL 13.0-16.5 [facility] IgA [Mass/Vol]Ordered By: Ra parrish Babin on 09-06-2024 Immunoglobulin A 140 mg/dL 90-386 [facility] IgEOrdered By: Denys love on 09-06-2024 Immunoglobulin E 40 IU/mL 6-495 [facility] IgG [Mass/Vol]Ordered By: Ra parrish Babin on 09-06-2024 Immunoglobulin G See comment [facility] Comment on above: TEST RESULTS LIMITSI mmunoglobulins A/E/G/M, Serum Immunoglobulin E, Total 40 IU/mL 6-495 TESTING PERFORMED AT [facility]. ORIGINAL REPORT ON FILE IN LAB CONTAINS ADDITIONAL TEST SITE INFORMATION. Immunoglobulin G Total 888 mg/dL 603-1613 [facility] Comment on above: TEST RESULTS LIMITSI gG, Subclasses(1-4) IgG, Subclass 1 386 mg/dL 248-810 IgG, Subclass 2 276 mg/dL 130-555 IgG, Subclass 3 40 mg/dL 15-102 IgG, Subclass 4 89 mg/dL 2-96 TESTING PERFORMED AT [facility] [place]. ORIGINAL REPORT ON FILE IN LAB CONTAINS ADDITIONAL TEST SITE INFORMATION. Previous reported result: mg/dLEdited by: MODESTA on 09/14/24:921 AMENDED REPORT 09/14/24921 IGG, QUANT previously reported as: TEST RESULTS LIMITSIgG, Subclasses(1-4) IgG, Subclass 1 386 mg/dL 248-810 IgG, Subclass 2 276 mg/dL 130-555 IgG, Subclass 3 40 mg/dL 15-102 IgG, Subclass 4 89 mg/dL 2-96 TESTING PERFORMED AT [facility]. ORIGINAL REPORT ON FILE IN LAB CONTAINS ADDITIONAL TEST SITE INFORMATION. IgG subclass 1 (S) [Mass/Vol ]Ordered By: Denys Babin on 09-06-2024 Immunoglobulin G1 386 mg/dL 248-810 [facility] IgG subclass 2 (S) [Mass/Vol ]Ordered By: Denys Babin on 09-06-2024 Immunoglobulin G2 276 mg/dL 130-555 [facility] IgG subclass 3 (S) [Mass/Vol ]Ordered By: Denys Babin on 09-06-2024 Immunoglobulin G3 40 mg/dL 15-102 [facility] Immunoglobulin G4 measuremen tOrdered By: Denys Babin on 09-06-2024 Immunoglobulin G4 89 mg/dL 2-96 [facility] Immunoglobulin M measurement Ordered By: Denysenrique Babin on 09-06-2024 Immunoglobulin M 42 mg/dL 20-172 [facility] Tessa-1 antibody assayOrdered B y: Denys Babin on 09-06-2024 TESSA-1 Antibody <0.2 AI 0.0-0.9 [facility] MCV (mean corpuscular volume ) determinationOrdered By: Cruz Arciniega on 09-06-2024 MCV (RBC) [Entitic vol] 88.7 fL 80-94 [facility] MRCP Abdomen without Contras ton 09-06-2024 MRCP Abdomen without Contrast Normal [facility] Magnesiumon 09-06-2024 Magnesium [Mass/Vol] 2.1 mg/dL Normal 1.6-2.6 [facility] Comment on above: Performed By: #### L 500.4050, L501.5200, L501.2300 ####[facility] [address] [place], [place], [address] Magnesium measurementOrdered By: Seth Stein on 09-06-2024 Magnesium [Mass/Vol] 2.1 mg/dL 1.6-2.6 [facility] Mean corpuscular hemoglobin (MCH) determinationOrdered By: Cruz Arciniega on 09-06-2024 MCH (RBC) [Entitic mass] 30.3 pg 27.0-32.0 [facility] Mean corpuscular hemoglobin concentration (MCHC) determinationOrdered By: Cruz Arciniega on 09-06-2024 MCHC (RBC) [Mass/Vol] 34.2 g/dL 32-36 [facility] Mean platelet volume determi nationOrdered By: Cruz Arciniega on 09-06-2024 Platelet mean volume (Bld) [Entitic vol] 9.5 fL 6.2-12.0 [facility] Neutrophil cytoplasmic Ab.cl assic Qn (S)Ordered By: Denys Babin on 09-06-2024 Cytoplasmic ANCA (c-ANCA) Antibody <1:20 titer Neg:<1:20 [facility] Comment on above: Note: Specimen is ic teric.Previous reported result: titerEdited by: MODESTA on 09/14/24:0922 AMENDED REPORT 09/14/2422 CYTOPLASMIC Ab previously reported as: TEST RESULTS LIMITSAntineutrophil Cytoplasmic Ab Cytoplasmic (C-ANCA) <1:20 titer Neg:<1:20 Note: Specimen is icteric. Perinuclear (P-ANCA) <1:20 titer Neg:<1:20 Note: Specimen is icteric.The presence of positive fluorescence exhibiting P-ANCA or C-ANCA patterns alone is not specific for the diagnosis of Kym's Granulomatosis (WG) or microscopic polyangiitis. Decisions about treatment should not be based solely on ANCA IFA results. The [employer] ANCA [employer] Consensus recommends follow up testing of positive sera with both MA-3 and MPO-ANCA enzyme immunoassays. As many as 5% serum samples are positive only by EIA.Ref. AM J Clin Pathol 1999;111:507-513.Atypical pANCA <1:20 titer Neg:<1:20 Note: Specimen is icteric.The atypical pANCA pattern has been observed in a significantpercentage of patients with ulcerative colitis, primary sclerosing cholangitis and autoimmune hepatitis. TESTING PERFORMED AT [facility]. ORIGINAL REPORT ON FILE IN LAB CONTAINS ADDITIONAL TEST SITE INFORMATION. Neutrophil cytoplasmic Ab.pe rinuclear IF (S) [Titer]Ordered By: Denys Babin on 09-06-2024 Perinuclear ANCA (p-ANCA) Antibody <1:20 titer Neg:<1:20 [facility] Comment on above: Note: Specimen is ic teric.The presence of positive fluorescence exhibiting P-ANCA orC-ANCA patterns alone is not specific for the diagnosis ofWegener's Granulomatosis (WG) or microscopic polyangiitis.Decisions about treatment should not be based solely onANCA IFA results. The International ANCA Group Consensusrecommends follow up testing of positive sera with both MA-3 and MPO-ANCA enzyme immunoassays. As many as 5% serumsamples are positive only by EIA. Ref. AM J Clin Yclsmq8904;111:507-513. Phosphoruson 09-06-2024 Phosphate [Mass/Vol] 3.2 mg/dL Normal 2.5-4.9 [facility] Comment on above: Performed By: #### L 500.4050, L501.5200, L501.2300 ####[facility] [address] [place], [address] Phosphorus measurementOrdere d By: Seth Stein on 09-06-2024 Phosphorus Level 3.2 mg/dL 2.5-4.9 [facility] Platelet countOrdered By: Zaire Arciniega on 09-06-2024 Platelets (Bld) [#/Vol] 291 10*3/uL 150-450 [facility] RBC Auto (Bld) [#/Vol]Ordere d By: Cruz Arciniega on 09-06-2024 RBC (Bld) [#/Vol] 4.35 10*6/uL Low 4.6-6.2 [facility] PROGRESSIVE DIE MAKER abOrdered By: Denys Mercado iend on 09-06-2024 PROGRESSIVE DIE MAKER Antibody <0.2 AI 0.0-0.9 [facility] SCL-70 extractable nuclear A b Qn (S)Ordered By: Denys Babin on 09-06-2024 Scl-70 (Scleroderma) Antibody <0.2 AI 0.0-0.9 [facility] SS-A IgG antibody assayOrder ed By: Denys Babin on 09-06-2024 SS-A/Ro IgG Antibody < 0.2 AI 0.0-0.9 [facility] SS-B IgG antibody assayOrder ed By: Denys Babin on 09-06-2024 SS-B/La IgG Antibody < 0.2 AI 0.0-0.9 [facility] Batista antibody assayOrdered By: Denys Babin on 09-06-2024 SM Antibody <0.2 AI 0.0-0.9 [facility] White blood cell (WBC) count Ordered By: Cruz Arciniega on 09-06-2024 WBC (Bld) [#/Vol] 6.8 10*3/uL 4.4-11.0 [facility] 12 Lead EKGon 09-05-2024 12 Lead EKG Normal [facility] Absolute neutrophil countOrd ered By: Denys Babin on 09-05-2024 Neutrophils (Bld) [#/Vol] 7.0 10*3/uL 2.0-7.7 [facility] Basophil percentageOrdered B y: Denys Babin on 09-05-2024 Basophils/100 WBC (Bld) 0.7 % 0-1 [facility] CBC W/Diff, Automatedon Absolute Lymph 0.63 X10 3/uL Low 0.83-4.51 [facility] Comment on above: Performed By: #### L 100.0100, L300.3900, L500.4050 ####[facility] [address] [place], [place], [address] Absolute Neut 7.0 X10 3/uL Normal 2.0-7.7 [facility] Comment on above: Performed By: #### L 100.0100, L300.3900, L500.4050 ####[facility] [address] [place], [address] Basophils/100 WBC (Bld) 0.7 % Normal 0-1 [facility] Comment on above: Performed By: #### L 100.0100, L300.3900, L500.4050 ####[facility] [address] [place], [address] Eosinophils/100 WBC (Bld) 0.7 % Normal 0-5 [facility] Comment on above: Performed By: #### L 100.0100, L300.3900, L500.4050 ####[facility] [address] [place], [address] Erythrocyte distribution width (RBC) [Ratio] 16.8 % High 11.6-14.6 [facility] Comment on above: Performed By: #### L 100.0100, L300.3900, L500.4050 ####[facility] [address] [place], [address] Hematocrit (Bld) [Volume fraction] 39.7 % Low 40-54 [facility] Comment on above: Performed By: #### L 100.0100, L300.3900, L500.4050 ####[facility] [address] [place], [address] Hemoglobin (Bld) [Mass/Vol] 13.4 g/dL Normal 13.0-16.5 [facility] Comment on above: Performed By: #### L 100.0100, L300.3900, L500.4050 ####[facility] [address] [place], [address] IG% 0.700 Normal 0.0-0.9 [facility] Comment on above: Result Comment: IG% - Immature Granulocytes (promyelocytes, myelocytes andmetamyelocytes) > 1% indicates that a LEFT SHIFT is Present. Performed By: #### L 100.0100, L300.3900, L500.4050 ####[facility] [address] [place], [address] Lymphocytes/100 WBC (Bld) 7.6 % Low 19-41 [facility] Comment on above: Performed By: #### L 100.0100, L300.3900, L500.4050 ####[facility] [address] [place], [address] MCH (RBC) [Entitic mass] 30.0 pg Normal 27.0-32.0 [facility] Comment on above: Performed By: #### L 100.0100, L300.3900, L500.4050 ####[facility] [address] [place], [address] MCHC (RBC) [Mass/Vol] 33.8 g/dL Normal 32-36 [facility] Comment on above: Performed By: #### L 100.0100, L300.3900, L500.4050 ####[facility] [address] [place], [address] MCV (RBC) [Entitic vol] 89.0 fL Normal 80-94 [facility] Comment on above: Performed By: #### L 100.0100, L300.3900, L500.4050 ####[facility] [address] [place], [address] Monocytes/100 WBC (Bld) 5.9 % Normal 0-10 [facility] Comment on above: Performed By: #### L 100.0100, L300.3900, L500.4050 ####[facility] [address] [place], [address] Neutrophils/100 WBC (Bld) 84.4 % High 47-70 [facility] Comment on above: Performed By: #### L 100.0100, L300.3900, L500.4050 ####[facility] [address] [place], [address] Nucleated RBC (Bld) [#/Vol] 0 10*3/uL Normal 0-5 [facility] Comment on above: Performed By: #### L 100.0100, L300.3900, L500.4050 ####[facility] [address] [place], [address] Platelet mean volume (Bld) [Entitic vol] 9.5 fL Normal 6.2-12.0 [facility] Comment on above: Performed By: #### L 100.0100, L300.3900, L500.4050 ####[facility] [address] [place], [address] Platelets (Bld) [#/Vol] 322 10*3/uL Normal 150-450 [facility] Comment on above: Performed By: #### L 100.0100, L300.3900, L500.4050 ####[facility] [address] [place], [address] RBC (Bld) [#/Vol] 4.46 10*6/uL Low 4.6-6.2 [facility] Comment on above: Performed By: #### L 100.0100, L300.3900, L500.4050 ####[facility] [address] [place], [address] RDW SD 54.4 fl High 35.1-43.9 [facility] Comment on above: Performed By: #### L 100.0100, L300.3900, L500.4050 ####[facility] [address] [place], [address] WBC (Bld) [#/Vol] 8.3 10*3/uL Normal 4.4-11.0 [facility] Comment on above: Performed By: #### L 100.0100, L300.3900, L500.4050 ####[facility] [address] [place], [address] Absolute Lymph 0.94 X10 3/uL Normal 0.83-4.51 [facility] Comment on above: Performed By: #### L 501.5200, L500.4050, L501.2300, L100.0100 ####[facility] [address] [place], [address] Absolute Neut 2.0 X10 3/uL Normal 2.0-7.7 [facility] Comment on above: Performed By: #### L 501.5200, L500.4050, L501.2300, L100.0100 ####[facility] [address] [place], [address] Basophils/100 WBC (Bld) 1.4 % High 0-1 [facility] Comment on above: Performed By: #### L 501.5200, L500.4050, L501.2300, L100.0100 ####[facility] [address] [place], [address] Eosinophils/100 WBC (Bld) 3.3 % Normal 0-5 [facility] Comment on above: Performed By: #### L 501.5200, L500.4050, L501.2300, L100.0100 ####[facility] [address] [place], [address] Erythrocyte distribution width (RBC) [Ratio] 16.7 % High 11.6-14.6 [facility] Comment on above: Performed By: #### L 501.5200, L500.4050, L501.2300, L100.0100 ####[facility] [address] [place], [address] Hematocrit (Bld) [Volume fraction] 37.2 % Low 40-54 [facility] Comment on above: Performed By: #### L 501.5200, L500.4050, L501.2300, L100.0100 ####[facility] [address] [place], [address] Hemoglobin (Bld) [Mass/Vol] 12.3 g/dL Low 13.0-16.5 [facility] Comment on above: Performed By: #### L 501.5200, L500.4050, L501.2300, L100.0100 ####[facility] [address] [place], [address] IG% 1.400 High 0.0-0.9 [facility] Comment on above: Result Comment: IG% - Immature Granulocytes (promyelocytes, myelocytes andmetamyelocytes) > 1% indicates that a LEFT SHIFT is Present. Performed By: #### L 501.5200, L500.4050, L501.2300, L100.0100 ####[facility] [address] [place], [address] Lymphocytes/100 WBC (Bld) 25.8 % Normal 19-41 [facility] Comment on above: Performed By: #### L 501.5200, L500.4050, L501.2300, L100.0100 ####[facility] [address] [place], [address] MCH (RBC) [Entitic mass] 29.4 pg Normal 27.0-32.0 [facility] Comment on above: Performed By: #### L 501.5200, L500.4050, L501.2300, L100.0100 ####[facility] [address] [place], [address] MCHC (RBC) [Mass/Vol] 33.1 g/dL Normal 32-36 [facility] Comment on above: Performed By: #### L 501.5200, L500.4050, L501.2300, L100.0100 ####[facility] [address] [place], [address] MCV (RBC) [Entitic vol] 89.0 fL Normal 80-94 [facility] Comment on above: Performed By: #### L 501.5200, L500.4050, L501.2300, L100.0100 ####[facility] [address] [place], [address] Monocytes/100 WBC (Bld) 12.6 % High 0-10 [facility] Comment on above: Performed By: #### L 501.5200, L500.4050, L501.2300, L100.0100 ####[facility] [address] [place], [address] Neutrophils/100 WBC (Bld) 55.5 % Normal 47-70 [facility] Comment on above: Performed By: #### L 501.5200, L500.4050, L501.2300, L100.0100 ####[facility] [address] [place], [address] Nucleated RBC (Bld) [#/Vol] 0 10*3/uL Normal 0-5 [facility] Comment on above: Performed By: #### L 501.5200, L500.4050, L501.2300, L100.0100 ####[facility] [address] [place], [address] Platelet mean volume (Bld) [Entitic vol] 9.8 fL Normal 6.2-12.0 [facility] Comment on above: Performed By: #### L 501.5200, L500.4050, L501.2300, L100.0100 ####[facility] [address] [place], [address] Platelets (Bld) [#/Vol] 269 10*3/uL Normal 150-450 [facility] Comment on above: Performed By: #### L 501.5200, L500.4050, L501.2300, L100.0100 ####[facility] [address] [place], [address] RBC (Bld) [#/Vol] 4.18 10*6/uL Low 4.6-6.2 [facility] Comment on above: Performed By: #### L 501.5200, L500.4050, L501.2300, L100.0100 ####[facility] [address] [place], [address] RDW SD 54.4 fl High 35.1-43.9 [facility] Comment on above: Performed By: #### L 501.5200, L500.4050, L501.2300, L100.0100 ####[facility] [address] [place], [address] WBC (Bld) [#/Vol] 3.7 10*3/uL Low 4.4-11.0 [facility] Comment on above: Performed By: #### L 501.5200, L500.4050, L501.2300, L100.0100 ####[facility] [address] [place], [address] Comprehensive Metabolic Prof [facility] 09-05-2024 Albumin [Mass/Vol] 3.1 g/dL Low 3.2-5.0 [facility] Comment on above: Performed By: #### L 100.0100, L300.3900, L500.4050 ####[facility] [address] [place], [address] Albumin/Globulin [Mass ratio] 1.0 {ratio} Normal 0.9-2.4 [facility] Comment on above: Performed By: #### L 100.0100, L300.3900, L500.4050 ####[facility] [address] [place], [address] ALK P 183 U/L High 45-117 [facility] Comment on above: Performed By: #### L 100.0100, L300.3900, L500.4050 ####[facility] [address] [place], [address] ALT [Catalytic activity/Vol] 71 U/L High 16-61 [facility] Comment on above: Performed By: #### L 100.0100, L300.3900, L500.4050 ####[facility] [address] [place], [address] AST [Catalytic activity/Vol] 72 U/L High 15-37 [facility] Comment on above: Result Comment: Slig ht Hemolysis, Result may be falsely increased. Performed By: #### L 100.0100, L300.3900, L500.4050 ####[facility] [address] [place], [address] Bilirubin [Mass/Vol] 22.10 mg/dL Invalid Interpretation Code 0.20-1.00 [facility] Comment on above: Result Comment: Crit ical Result(s) Called at: 16:27:09 09/05/2024 by: VU BREWSTER. Results read back by same. For patients on eltrombopag therapy, use of Dimension [place] TBIL is not recommended. Performed By: #### L 100.0100, L300.3900, L500.4050 ####[facility] [address] [place], [address] BUN/CRE 8.8 RATIO Low 10-20 [facility] Comment on above: Performed By: #### L 100.0100, L300.3900, L500.4050 ####[facility] [address] [place], [address] CA,Total 9.3 mg/dL Normal 8.5-10.1 [facility] Comment on above: Performed By: #### L 100.0100, L300.3900, L500.4050 ####[facility] [address] [place], [address] Chloride [Moles/Vol] 107 mmol/L Normal 98-107 [facility] Comment on above: Performed By: #### L 100.0100, L300.3900, L500.4050 ####[facility] [address] [place], [address] CO2 [Moles/Vol] 24.0 mmol/L Normal 21.0-32.0 [facility] Comment on above: Performed By: #### L 100.0100, L300.3900, L500.4050 ####[facility] [address] [place], [address] Creatinine [Mass/Vol] 1.13 mg/dL Normal 0.70-1.30 [facility] Comment on above: Result Comment: Mode rate Icterus, Result may be falsely decreased.The validity of the calculated GFR GFRAA in patients over70 years has not been determined. Clinical correlation isessential. Performed By: #### L 100.0100, L300.3900, L500.4050 ####[facility] [address] [place], [address] ECRCL 98.71 ml/min Normal [facility] Comment on above: Performed By: #### L 100.0100, L300.3900, L500.4050 ####[facility] [address] [place], [address] EST GFR - AA 92 mL/min Normal >60 [facility] Comment on above: Result Comment: Afri can [place] GFR Calc Performed By: #### L 100.0100, L300.3900, L500.4050 ####[facility] [address] [place], [address] GAP 8 Normal 5-15 [facility] Comment on above: Performed By: #### L 100.0100, L300.3900, L500.4050 ####[facility] [address] [place], [address] GFR/1.73 sq M.predicted among non-blacks MDRD (S/P/Bld) [Vol rate/Area] 76 mL/min/{1.73_m2} Normal >60 [facility] Comment on above: Result Comment: Non- GFR Calc Performed By: #### L 100.0100, L300.3900, L500.4050 ####[facility] [address] [place], [address] Globulin (S) [Mass/Vol] 3.0 g/dL Normal 2.2-4.2 [facility] Comment on above: Performed By: #### L 100.0100, L300.3900, L500.4050 ####[facility] [address] [place], [address] Glucose [Mass/Vol] 104 mg/dL Normal 74-106 [facility] Comment on above: Result Comment: Fast ing Glucose result from 100 to 125 mg/dLsuggests IMPAIRED HOMEOSTASIS per A.D.A. criteria. Performed By: #### L 100.0100, L300.3900, L500.4050 ####[facility] [address] [place], [address] Potassium [Moles/Vol] 4.4 mmol/L Normal 3.5-5.1 [facility] Comment on above: Result Comment: Slig ht Hemolysis, Result may be falsely increased. Performed By: #### L 100.0100, L300.3900, L500.4050 ####[facility] [address] [place], [address] Sodium [Moles/Vol] 140 mmol/L Normal 136-145 [facility] Comment on above: Performed By: #### L 100.0100, L300.3900, L500.4050 ####[facility] [address] [place], [address] T PROT 6.1 g/dL Low 6.4-8.2 [facility] Comment on above: Result Comment: Mode rate Icterus, Result may be falsely decreased. Performed By: #### L 100.0100, L300.3900, L500.4050 ####[facility] [address] [place], [address] Urea nitrogen [Mass/Vol] 10 mg/dL Normal 7-18 [facility] Comment on above: Performed By: #### L 100.0100, L300.3900, L500.4050 ####[facility] [address] [place], [address] Albumin [Mass/Vol] 2.7 g/dL Low 3.2-5.0 [facility] Comment on above: Performed By: #### L 501.5200, L500.4050, L501.2300, L100.0100 ####[facility] [address] [place], [address] Albumin/Globulin [Mass ratio] 0.9 {ratio} Normal 0.9-2.4 [facility] Comment on above: Performed By: #### L 501.5200, L500.4050, L501.2300, L100.0100 ####[facility] [address] [place], [address] ALK P 153 U/L High 45-117 [facility] Comment on above: Performed By: #### L 501.5200, L500.4050, L501.2300, L100.0100 ####[facility] [address] [place], [address] ALT [Catalytic activity/Vol] 57 U/L Normal 16-61 [facility] Comment on above: Performed By: #### L 501.5200, L500.4050, L501.2300, L100.0100 ####[facility] [address] [place], [address] AST [Catalytic activity/Vol] 55 U/L High 15-37 [facility] Comment on above: Performed By: #### L 501.5200, L500.4050, L501.2300, L100.0100 ####[facility] [address] [place], [address] Bilirubin [Mass/Vol] 19.20 mg/dL Invalid Interpretation Code 0.20-1.00 [facility] Comment on above: Result Comment: Crit ical Result(s) Called at: 06:08:04 09/05/2024 by: CRISTIANO to Sadaf Kate. Results read back by same. For patients on eltrombopag therapy, use of Dimension [place] TBIL is not recommended. Performed By: #### L 501.5200, L500.4050, L501.2300, L100.0100 ####[facility] [address] [place], [address] BUN/CRE 9.8 RATIO Low 10-20 [facility] Comment on above: Performed By: #### L 501.5200, L500.4050, L501.2300, L100.0100 ####[facility] [address] [place], [address] CA,Total 9.0 mg/dL Normal 8.5-10.1 [facility] Comment on above: Performed By: #### L 501.5200, L500.4050, L501.2300, L100.0100 ####[facility] [address] [place], [address] Chloride [Moles/Vol] 107 mmol/L Normal 98-107 [facility] Comment on above: Performed By: #### L 501.5200, L500.4050, L501.2300, L100.0100 ####[facility] [address] [place], [address] CO2 [Moles/Vol] 25.0 mmol/L Normal 21.0-32.0 [facility] Comment on above: Performed By: #### L 501.5200, L500.4050, L501.2300, L100.0100 ####[facility] [address] [place], [address] Creatinine [Mass/Vol] 1.02 mg/dL Normal 0.70-1.30 [facility] Comment on above: Result Comment: Mode rate Icterus, Result may be falsely decreased.The validity of the calculated GFR GFRAA in patients over70 years has not been determined. Clinical correlation isessential. Performed By: #### L 501.5200, L500.4050, L501.2300, L100.0100 ####[facility] [address] [place], [address] ECRCL 109.35 ml/min Normal [facility] Comment on above: Performed By: #### L 501.5200, L500.4050, L501.2300, L100.0100 ####[facility] [address] [place], [address] EST GFR - AA 104 mL/min Normal >60 [facility] Comment on above: Result Comment: Afri can [place] GFR Calc Performed By: #### L 501.5200, L500.4050, L501.2300, L100.0100 ####[facility] [address] [place], [address] GAP 6 Normal 5-15 [facility] Comment on above: Performed By: #### L 501.5200, L500.4050, L501.2300, L100.0100 ####[facility] [address] [place], [address] GFR/1.73 sq M.predicted among non-blacks MDRD (S/P/Bld) [Vol rate/Area] 86 mL/min/{1.73_m2} Normal >60 [facility] Comment on above: Result Comment: Non- GFR Calc Performed By: #### L 501.5200, L500.4050, L501.2300, L100.0100 ####[facility] [address] [place], [address] Globulin (S) [Mass/Vol] 3.1 g/dL Normal 2.2-4.2 [facility] Comment on above: Performed By: #### L 501.5200, L500.4050, L501.2300, L100.0100 ####[facility] [address] [place], [address] Glucose [Mass/Vol] 93 mg/dL Normal 74-106 [facility] Comment on above: Performed By: #### L 501.5200, L500.4050, L501.2300, L100.0100 ####[facility] [address] [place], [address] Potassium [Moles/Vol] 3.7 mmol/L Normal 3.5-5.1 [facility] Comment on above: Performed By: #### L 501.5200, L500.4050, L501.2300, L100.0100 ####[facility] [address] [place], [address] Sodium [Moles/Vol] 138 mmol/L Normal 136-145 [facility] Comment on above: Performed By: #### L 501.5200, L500.4050, L501.2300, L100.0100 ####[facility] [address] [place], [address] T PROT 5.8 g/dL Low 6.4-8.2 [facility] Comment on above: Result Comment: Mode rate Icterus, Result may be falsely decreased. Performed By: #### L 501.5200, L500.4050, L501.2300, L100.0100 ####[facility] [address] [place], [address] Urea nitrogen [Mass/Vol] 10 mg/dL Normal 7-18 [facility] Comment on above: Performed By: #### L 501.5200, L500.4050, L501.2300, L100.0100 ####[facility] [address] [place], [address] ERCP Biliary/Pancreason 12-0 ERCP Biliary/Pancreas Normal [facility] Eosinophil percentageOrdered By: Denys Babin on 09-05-2024 Eosinophils/100 WBC (Bld) 0.7 % 0-5 [facility] High density lipoprotein (HD L) measurementOrdered By: Seth Stein on 09-05-2024 Cholesterol in HDL [Mass/Vol] 6 mg/dL Low >40 [facility] Comment on above: The drugs N-Acetylcy steine and Metamizole may falsely depress this assay. Reference Range HDL <40 mg/dL Low HDL Cholesterol HDL >or= 60 mg/dL High HDL Cholesterol Immature granulocytes/100 WB C Auto (Bld)Ordered By: Deyns Babin on 09-05-2024 Immature granulocytes/100 WBC (Bld) 0.700 % 0.0-0.9 [facility] Comment on above: IG% - Immature Granu locytes (promyelocytes, myelocytes and metamyelocytes) > 1% indicates that a LEFT SHIFT is Present. International normalized rat io (INR) calculationOrdered By: Denys Babin on 09-05-2024 INR Coag (Bld) [Relative time] 0.9 {INR} [facility] LDHon 09-05-2024 LDH 133 U/L Normal 87-241 [facility] Comment on above: Performed By: #### L 3200.1100, L3300.0700, L3300.1200, L3200.0500, L504.2610 ####[facility] [address] [place], [address] Lactate dehydrogenase (LDH) measurementOrdered By: Denys Babin on 09-05-2024 LDH [Catalytic activity/Vol] 133 U/L 87-241 [facility] Lipid Profileon 09-05-2024 Cholesterol [Mass/Vol] 156 mg/dL Normal 200 [facility] Comment on above: Result Comment: Mode rate Icterus, Result may be falsely decreased. <200 mg/dL Desirable 200-240 mg/dL Borderline >240 mg/dL High Risk Performed By: #### L 500.4100 ####[facility] [address] [place], [address] Cholesterol in HDL [Mass/Vol] 6 mg/dL Low [facility] Comment on above: Result Comment: The drugs N-Acetylcysteine and Metamizole may falselydepress this assay. Reference Range HDL <40 mg/dL Low HDL Cholesterol HDL >or= 60 mg/dL High HDL Cholesterol Performed By: #### L 500.4100 ####[facility] [address] [place], [address] Cholesterol in LDL [Mass/Vol] 83 mg/dL Normal 0-130 [facility] Comment on above: Performed By: #### L 500.4100 ####[facility] [address] [place], [address] Cholesterol in VLDL [Mass/Vol] 67 mg/dL High 5-40 [facility] Comment on above: Performed By: #### L 500.4100 ####[facility] [address] [place], [address] Triglyceride [Mass/Vol] 333 mg/dL High [facility] Comment on above: Result Comment: The drugs N-Acetylcysteine and Metamizole may falselydepress this assay.Moderate Icterus, Result may be falsely increased.Serum Triglycerides Reference Interval Normal <150 mg/dL Borderline high 150 - 199 mg/dL High 200 - 499 mg/dL Very High > or = 500 mg/dL Performed By: #### L 500.4100 ####[facility] [address] [place], [place], [address] Low density lipoprotein (LDL ) cholesterol measurementOrdered By: Seth Stein on 09-05-2024 Cholesterol in LDL [Mass/Vol] 83 mg/dL 0-130 [facility] Lymphocytes Auto (Unsp spec) [#/Vol]Ordered By: Denys Babin on 09-05-2024 Lymphocytes (Bld) [#/Vol] 0.63 10*3/uL Low 0.83-4.51 [facility] Lymphocytes/100 WBC Auto (Un sp spec)Ordered By: Denys Babin on 09-05-2024 Lymphocytes/100 WBC (Bld) 7.6 % Low 19-41 [facility] MR/POSTOP.ANEon 09-05-2024 MR/POSTOP.ANE Normal [facility] MR/[id number] 09-05-2024 MR/POSTOPAN2 Normal [facility] MR/POSTOPAN2 Normal [facility] Magnesiumon 09-05-2024 Magnesium [Mass/Vol] 2.2 mg/dL Normal 1.6-2.6 [facility] Comment on above: Performed By: #### L 501.5200, L500.4050, L501.2300, L100.0100 ####[facility] [address] [place], [place], [address] Monocyte percentageOrdered B y: Denys Babin on 09-05-2024 Monocytes/100 WBC (Bld) 5.9 % 0-10 [facility] Neutrophil percentageOrdered By: Denys Babin on 09-05-2024 Neutrophils/100 WBC (Bld) 84.4 % High 47-70 [facility] Nucleated red blood cell per centageOrdered By: Denys Babin on 09-05-2024 Nucleated RBC/100 WBC (Bld) [Ratio] 0 % 0-5 [facility] Phosphoruson 09-05-2024 Phosphate [Mass/Vol] 3.8 mg/dL Normal 2.5-4.9 [facility] Comment on above: Performed By: #### L 501.5200, L500.4050, L501.2300, L100.0100 ####[facility] [address] [place], [address] Prothrombin Time w/INRon INR Coag (PPP) [Relative time] 0.9 {INR} Normal [facility] Comment on above: Performed By: #### L 100.0100, L300.3900, L500.4050 ####[facility] [address] [place], [address] PT Coag (PPP) [Time] 11.9 s Normal 11.7-14.9 [facility] Comment on above: Performed By: #### L 100.0100, L300.3900, L500.4050 ####[facility] [address] [place], [address] Prothrombin timeOrdered By: Denys Babin on 09-05-2024 PT Coag (PPP) [Time] 11.9 s 11.7-14.9 [facility] Serum or plasma cholesterol measurement (mass/volume)Ordered By: Seth Stein on 09-05-2024 Cholesterol [Mass/Vol] 156 mg/dL <200 [facility] Comment on above: Moderate Icterus, Re sult may be falsely decreased. <200 mg/dL Desirable 200-240 mg/dL Borderline >240 mg/dL High Risk Triglycerides measurementOrd ered By: Seth Stein on 09-05-2024 Triglyceride [Mass/Vol] 333 mg/dL High <199 [facility] Comment on above: The drugs N-Acetylcy steine and Metamizole may falsely depress this assay. Moderate Icterus, Result may be falsely increased.Serum Triglycerides Reference Interval Normal <150 mg/dL Borderline high 150 - 199 mg/dL High 200 - 499 mg/dL Very High > or = 500 mg/dL Very low density lipoprotein (VLDL) cholesterol measurementOrdered By: Seth Stein on 09-05-2024 VLDL Cholesterol 67 mg/dL High 5-40 [facility] Abdomen/Pelvis W IV Cont ONL Yon 2024 Abdomen/Pelvis W IV Cont ONLY Normal [facility] Bilirubin Test strip Ql (U)O rdered By: Rod Ross on 2024 Bilirubin Ql (U) Negative Negative [facility] Bilirubin directOrdered By: Ita Cueto on 2024 Bilirubin.direct [Mass/Vol] 20.11 mg/dL High 0.00-0.30 [facility] Comment on above: Critical Result(s) C alled at: 20:11:53 2024 by: JAX COOK. Results read back by Gertrude MIGUEL Bilirubin, Directon 09-04-20 Bilirubin.direct [Mass/Vol] 20.11 mg/dL High 0.00-0.30 [facility] Comment on above: Result Comment: Crit ical Result(s) Called at: 20:11:53 2024 by: STEPHAN. Results read back by Gertrude MIGUEL Performed By: #### L 501.4700 ####[facility] [address] [place], [address] CBC W/Diff, Automatedon 12-0 Absolute Lymph 1.03 X10 3/uL Normal 0.83-4.51 [facility] Comment on above: Performed By: #### L 500.4050, L100.0100 ####[facility] [address] [place], [address] Absolute Neut 3.5 X10 3/uL Normal 2.0-7.7 [facility] Comment on above: Performed By: #### L 500.4050, L100.0100 ####[facility] [address] [place], [address] Basophils/100 WBC (Bld) 1.1 % High 0-1 [facility] Comment on above: Performed By: #### L 500.4050, L100.0100 ####[facility] [address] [place], [address] Eosinophils/100 WBC (Bld) 2.9 % Normal 0-5 [facility] Comment on above: Performed By: #### L 500.4050, L100.0100 ####[facility] [address] [place], [address] Erythrocyte distribution width (RBC) [Ratio] 16.2 % High 11.6-14.6 [facility] Comment on above: Performed By: #### L 500.4050, L100.0100 ####[facility] [address] [place], [address] Hematocrit (Bld) [Volume fraction] 43.1 % Normal 40-54 [facility] Comment on above: Performed By: #### L 500.4050, L100.0100 ####[facility] [address] [place], [address] Hemoglobin (Bld) [Mass/Vol] 14.3 g/dL Normal 13.0-16.5 [facility] Comment on above: Performed By: #### L 500.4050, L100.0100 ####[facility] [address] [place], [address] IG% 1.600 High 0.0-0.9 [facility] Comment on above: Result Comment: IG% - Immature Granulocytes (promyelocytes, myelocytes andmetamyelocytes) > 1% indicates that a LEFT SHIFT is Present. Performed By: #### L 500.4050, L100.0100 ####[facility] [address] [place], [address] Lymphocytes/100 WBC (Bld) 18.8 % Low 19-41 [facility] Comment on above: Performed By: #### L 500.4050, L100.0100 ####[facility] [address] [place], [address] MCH (RBC) [Entitic mass] 30.0 pg Normal 27.0-32.0 [facility] Comment on above: Performed By: #### L 500.4050, L100.0100 ####[facility] [address] [place], [address] MCHC (RBC) [Mass/Vol] 33.2 g/dL Normal 32-36 [facility] Comment on above: Performed By: #### L 500.4050, L100.0100 ####[facility] [address] [place], [address] MCV (RBC) [Entitic vol] 90.4 fL Normal 80-94 [facility] Comment on above: Performed By: #### L 500.4050, L100.0100 ####[facility] [address] [place], [address] Monocytes/100 WBC (Bld) 12.4 % High 0-10 [facility] Comment on above: Performed By: #### L 500.4050, L100.0100 ####[facility] [address] [place], [address] Neutrophils/100 WBC (Bld) 63.2 % Normal 47-70 [facility] Comment on above: Performed By: #### L 500.4050, L100.0100 ####[facility] [address] [place], [address] Nucleated RBC (Bld) [#/Vol] 0 10*3/uL Normal 0-5 [facility] Comment on above: Performed By: #### L 500.4050, L100.0100 ####[facility] [address], [address] Platelet mean volume (Bld) [Entitic vol] 9.5 fL Normal 6.2-12.0 [facility] Comment on above: Performed By: #### L 500.4050, L100.0100 ####[facility] [address] [place], [address] Platelets (Bld) [#/Vol] 325 10*3/uL Normal 150-450 [facility] Comment on above: Performed By: #### L 500.4050, L100.0100 ####[facility] [address] [place], [address] RBC (Bld) [#/Vol] 4.77 10*6/uL Normal 4.6-6.2 [facility] Comment on above: Performed By: #### L 500.4050, L100.0100 ####[facility] [address] [place], [address] RDW SD 54.2 fl High 35.1-43.9 [facility] Comment on above: Performed By: #### L 500.4050, L100.0100 ####[facility] [address] [place], [address] WBC (Bld) [#/Vol] 5.5 10*3/uL Normal 4.4-11.0 [facility] Comment on above: Performed By: #### L 500.4050, L100.0100 ####[facility] [address] [place], [address] Comprehensive Metabolic Prof ilon 2024 Albumin [Mass/Vol] 3.7 g/dL Normal 3.2-5.0 [facility] Comment on above: Performed By: #### L 500.4050, L100.0100 ####[facility] [address] [place], [address] Albumin/Globulin [Mass ratio] 0.9 {ratio} Normal 0.9-2.4 [facility] Comment on above: Performed By: #### L 500.4050, L100.0100 ####[facility] [address] [place], [address] ALK P 199 U/L High 45-117 [facility] Comment on above: Performed By: #### L 500.4050, L100.0100 ####[facility] [address] [place], [address] ALT [Catalytic activity/Vol] 78 U/L High 16-61 [facility] Comment on above: Performed By: #### L 500.4050, L100.0100 ####[facility] [address] [place], [address] AST [Catalytic activity/Vol] 68 U/L High 15-37 [facility] Comment on above: Performed By: #### L 500.4050, L100.0100 ####[facility] [address] [place], [address] Bilirubin [Mass/Vol] 23.90 mg/dL Invalid Interpretation Code 0.20-1.00 [facility] Comment on above: Result Comment: Crit ical Result(s) Called at: 19:05:27 2024 by: STEPHAN. Results read back by Vaishnavi For patients on eltrombopag therapy, use of Dimension [place] TBIL is not recommended. Performed By: #### L 500.4050, L100.0100 ####[facility] [address] [place], [address] BUN/CRE 11.5 RATIO Normal 10-20 [facility] Comment on above: Performed By: #### L 500.4050, L100.0100 ####[facility] [address] [place], [address] CA,Total 9.8 mg/dL Normal 8.5-10.1 [facility] Comment on above: Performed By: #### L 500.4050, L100.0100 ####[facility] [address] [place], [address] Chloride [Moles/Vol] 102 mmol/L Normal 98-107 [facility] Comment on above: Performed By: #### L 500.4050, L100.0100 ####[facility] [address] [place], [address] CO2 [Moles/Vol] 28.0 mmol/L Normal 21.0-32.0 [facility] Comment on above: Performed By: #### L 500.4050, L100.0100 ####[facility] [address] [place], [address] Creatinine [Mass/Vol] 1.13 mg/dL Normal 0.70-1.30 [facility] Comment on above: Result Comment: Mode rate Icterus, Result may be falsely decreased.The validity of the calculated GFR GFRAA in patients over70 years has not been determined. Clinical correlation isessential. Performed By: #### L 500.4050, L100.0100 ####[facility] [address] [place], [address] ECRCL 99.11 ml/min Normal [facility] Comment on above: Performed By: #### L 500.4050, L100.0100 ####[facility] [address] [place], [address] EST GFR - AA 92 mL/min Normal >60 [facility] Comment on above: Result Comment: Afri can [place] GFR Calc Performed By: #### L 500.4050, L100.0100 ####[facility] [address] [place], [address] GAP 8 Normal 5-15 [facility] Comment on above: Performed By: #### L 500.4050, L100.0100 ####[facility] [address] [place], [address] GFR/1.73 sq M.predicted among non-blacks MDRD (S/P/Bld) [Vol rate/Area] 76 mL/min/{1.73_m2} Normal >60 [facility] Comment on above: Result Comment: Non- GFR Calc Performed By: #### L 500.4050, L100.0100 ####[facility] [address] [place], [address] Globulin (S) [Mass/Vol] 3.9 g/dL Normal 2.2-4.2 [facility] Comment on above: Performed By: #### L 500.4050, L100.0100 ####[facility] [address] [place], [address] Glucose [Mass/Vol] 105 mg/dL Normal 74-106 [facility] Comment on above: Result Comment: Fast ing Glucose result from 100 to 125 mg/dLsuggests IMPAIRED HOMEOSTASIS per A.D.A. criteria. Performed By: #### L 500.4050, L100.0100 ####[facility] [address] [place], [address] Potassium [Moles/Vol] 3.9 mmol/L Normal 3.5-5.1 [facility] Comment on above: Performed By: #### L 500.4050, L100.0100 ####[facility] [address] [place], [address] Sodium [Moles/Vol] 138 mmol/L Normal 136-145 [facility] Comment on above: Performed By: #### L 500.4050, L100.0100 ####[facility] [address] [place], [address] T PROT 7.6 g/dL Normal 6.4-8.2 [facility] Comment on above: Result Comment: Mode rate Icterus, Result may be falsely decreased. Performed By: #### L 500.4050, L100.0100 ####[facility] [address] [place], [place], [address] Urea nitrogen [Mass/Vol] 13 mg/dL Normal 7-18 [facility] Comment on above: Performed By: #### L 500.4050, L100.0100 ####[facility] [address] [place], [address] Emergency Department Summary on 2024 Emergency Department Summary Normal [facility] Epithelial cells.squamous LM Ql (Urine sed)Ordered By: Rod Ross on 2024 Epithelial cells.squamous LM.HPF (Urine sed) [#/Area] 0 /[HPF] 0-5 [facility] Gallbladderon 2024 Gallbladder Normal [facility] Glucose Ql (U)Ordered By: Chase Ross on 2024 Urine Glucose (UA) Normal mg/dl Normal [facility] H AND P Exam - Hospitaliston 2024 H&P Exam - Hospitalist Normal [facility] Hemoglobin A1con 2024 HbA1c (Bld) [Mass fraction] 4.8 % Normal 3.8-5.6 [facility] Comment on above: Result Comment: Norm al < 5.7 % Prediabetic 5.7 - 6.4 % Diabetic >or= 6.5 % Please note range changes. Performed By: #### L 501.9520, L501.9985 ####[facility] [address] [place], [place], [address] Hemoglobin A1c percentageOrd ered By: Seth Stein on 2024 HbA1c (Bld) [Mass fraction] 4.8 % 3.8-5.6 [facility] Comment on above: Normal < 5.7 % Predi abetic 5.7 - 6.4 % Diabetic >or= 6.5 % Please note range changes. Ketones Test strip Ql (U)Ord ered By: Rod Ross on 2024 Ketones Ql (U) Negative Negative [facility] Lipaseon 2024 Lipase [Catalytic activity/Vol] 43 U/L Normal 13-75 [facility] Comment on above: Result Comment: Sully delaney note:LIPASE revised reference range effective 23.New Lipase methodology. Expected to produce lower valuesthan the previous assay method.NEW Reference Range: 13 - 75 U/L Performed By: #### L 501.2450 ####[facility] [address] [place], [address] Lipase measurementOrdered By : Ita Cueto on 2024 Lipase [Catalytic activity/Vol] 43 U/L 13-75 [facility] Comment on above: Please note:LIPASE r evised reference range effective 23. New Lipase methodology. Expected to produce lower values than the previous assay method. NEW Reference Range: 13 - 75 U/L Lipid Profileon 2024 HDL Normal [facility] Comment on above: Result Comment: DUPL ICATE,UNABLE TO UNRECIEVEThe drugs N-Acetylcysteine and Metamizole may falselydepress this assay. Performed By: #### L 500.4100 ####[facility] [address] [place], [address] TRIG Normal [facility] Comment on above: Result Comment: DUPL ICATE,UNABLE TO UNRECIEVEThe drugs N-Acetylcysteine and Metamizole may falselydepress this assay. Performed By: #### L 500.4100 ####[facility] [address] [place], [address] CHOL Normal 200 [facility] Comment on above: Result Comment: DUPL ICATE,UNABLE TO UNRECIEVE Performed By: #### L 500.4100 ####[facility] [address] [place], [address] LDL Normal 0-130 [facility] Comment on above: Result Comment: DUPL ICATE,UNABLE TO UNRECIEVE Performed By: #### L 500.4100 ####[facility] [address] [place], [address] VLDL Normal 5-40 [facility] [facility] Comment on above: Result Comment: GORDON SARKAR,UNABLE TO UNRECIEVE Performed By: #### L 500.4843 ####[facility] [address] [place], [place], [id number] MR/CON.PCM.GIon 2024 MR/CON.PCM.GI Normal [facility] Microscopic analysis of urin e for red blood cells (RBC)Ordered By: Rod Ross on 2024 Urine RBC 0 SEEN /hpf 0-5 [facility] Mucus LM Ql (Urine sed)Order ed By: Rod Ross on 2024 Mucus Ql (Urine sed) 0 SEEN /hpf [facility] Nitrite Test strip Ql (U)Ord ered By: Rod Ross on 2024 Nitrite Ql (U) Negative Negative [facility] Protein Test strip Ql (U)Ord ered By: Rod Ross on 2024 Protein Ql (U) Negative Negative [facility] Prothrombin Time w/INRon INR Coag (PPP) [Relative time] 0.9 {INR} Normal [facility] Comment on above: Performed By: #### L 300.7731 ####[facility] [address] [place], [place], [phone] PT Coag (PPP) [Time] 11.9 s Normal 11.7-14.9 [facility] Comment on above: Performed By: #### L 300.3900 ####[facility] [address] [place], [place], [phone] TSH QnOrdered By: Seth earl on 2024 Thyroid Stimulating Hormone (TSH) 0.545 uIU/mL 0.358-3.740 [facility] Thyroid Stim Hormone (TSH)on 2024 TSH 0.545 uIU/mL Normal 0.358-3.740 [facility] Comment on above: Performed By: #### L 501.9520, L501.9985 ####[facility] [address] [place], [address] Urinalysis, Completeon 09-04 BACTERIA 1+ /hpf Normal None Seen [facility] Comment on above: Order Comment: COLLE CTOR TO SPECIFY Performed By: #### L 400.0001 ####[facility] [address] [place], [address] BILIRUBIN URINE Negative Normal Negative [facility] Comment on above: Order Comment: COLLE CTOR TO SPECIFY Performed By: #### L 400.0001 ####[facility] [address] [place], [address] Clarity (U) Clear Normal Clear [facility] Comment on above: Order Comment: COLLE CTOR TO SPECIFY Performed By: #### L 400.0001 ####[facility] [address] [place], [address] Color (U) Yellow Normal Yellow [facility] Comment on above: Order Comment: COLLE CTOR TO SPECIFY Performed By: #### L 400.0001 ####[facility] [address] [place], [address] GLUCOSE, UR Normal Normal Normal [facility] Comment on above: Order Comment: COLLE CTOR TO SPECIFY Performed By: #### L 400.0001 ####[facility] [address] [place], [address] KETONE UR Negative Normal Negative [facility] Comment on above: Order Comment: COLLE CTOR TO SPECIFY Performed By: #### L 400.0001 ####[facility] [address] [place], [address] LEUK ESTERASE Negative Normal Negative [facility] Comment on above: Order Comment: COLLE CTOR TO SPECIFY Performed By: #### L 400.0001 ####[facility] [address] [place], [address] Nitrite Ql (U) Negative Normal Negative [facility] Comment on above: Order Comment: MANOJ CTOR TO SPECIFY Performed By: #### L 400.0001 ####[facility] [address] [place], [address] OCCULT BLOOD-UR Negative Normal Negative [facility] Comment on above: Order Comment: MANOJ CTOR TO SPECIFY Performed By: #### L 400.0001 ####[facility] [address] [place], [address] pH UR 6.0 Normal 5.0 - 8.0 [facility] Comment on above: Order Comment: MANOJ CTOR TO SPECIFY Performed By: #### L 400.0001 ####[facility] [address] [place], [address] PROT DIPSTX Negative Normal Negative [facility] Comment on above: Order Comment: MANOJ CTOR TO SPECIFY Performed By: #### L 400.0001 ####[facility] [address] [place], [address] SP.GR. DIPSTX 1.005 Normal 1.002-1.030 [facility] Comment on above: Order Comment: MANOJ CTOR TO SPECIFY Performed By: #### L 400.0001 ####[facility] [address] [place], [address] UROBILI Normal Normal Normal [facility] Comment on above: Order Comment: MANOJ CTOR TO SPECIFY Performed By: #### L 400.0001 ####[facility] [address] [place], [address] EPI,SQUAMOUS 0 SEEN Normal 0-5 [facility] Comment on above: Order Comment: MANOJ CTOR TO SPECIFY Performed By: #### L 400.0001 ####[facility] [address] [place], [address] Mucus Ql (Urine sed) 0 SEEN Normal [facility] Comment on above: Order Comment: MANOJ CTOR TO SPECIFY Performed By: #### L 400.0001 ####[facility] [address] [place], [place], [id number] RBC 0 SEEN Normal 0-5 [facility] Comment on above: Order Comment: MANOJ CTOR TO SPECIFY Performed By: #### L 400.0001 ####[facility] [address] [facility] [id number] WBC 0 SEEN Normal 0-5 [facility] Comment on above: Order Comment: MANOJ CTOR TO SPECIFY Performed By: #### L 400.0001 ####[facility] [address] [place], [place], [phone] Urine blood detectionOrdered By: Rod Ross on 2024 Urine Occult Blood Negative Negative [facility] Urine clarityOrdered By: Woo Ross on 2024 Clarity (U) Clear Clear [facility] Urine color determinationOrd ered By: Rod Ross on 2024 Color (U) Yellow Yellow [facility] Urine leukocyte esterase det ection by dipstickOrdered By: Rod Ross on 2024 Leukocyte esterase Test strip Ql (U) Negative Negative [facility] Urine pHOrdered By: Rod Ross on 2024 pH (U) 6.0 [pH] 5.0 - 8.0 [facility] Urine sediment bacteria coun t by microscopy (number/high power field)Ordered By: Rod Ross on 2024 Bacteria LM.HPF (Urine sed) [#/Area] 1 /[HPF] None Seen [facility] Urine specific gravity measu rementOrdered By: Rod Ross on 2024 Specific gravity (U) [Rel density] 1.005 1.002-1.030 [facility] Urobilinogen Ql (U)Ordered B y: Rod Ross on 2024 Urine Urobilinogen Normal mg/dl Normal [facility] White blood cell countOrdere d By: Rod Ross on 2024 Urine WBC 0 SEEN /hpf 0-5 [facility] US ABDOMEN LIMITEDon 2 024 US ABDOMEN LIMITED ORIGINAL EXAMINATION: LIMITED ABDOMINAL BHOYYTTXEN58/13/2024 8:11 am Limited ultrasound of the abdomen attention right upper quadrant COMPARISON: None TECHNIQUE: This report is based on interpretation of permanently recorded ultrasound images. HISTORY: ORDERING SYSTEM PROVIDED HISTORY: Reason for Exam: RUQ pain, FINDINGS: The liver is normal in size and echogenicity. No suspicious focal lesions are seen. There is no intrahepatic bile duct dilatation. The common duct is 9.6 mm at the rick hepatis. There are echogenic foci within the duct distally suspicious for stones.. The gallbladder is moderately distended with small mobile calculi. There is no abnormal wall thickening. Negative sonographic Isidro's sign.. The visualized pancreas shows no focal lesion or mass. Some portions of the pancreas are obscured by bowel gas. No ascites is seen in the Ledezma's pouch. Limited survey images of the right kidney shows normal cortical thickness and echogenicity and no pelvocaliectasis. The visualized aorta and IVC are normal in caliber. IMPRESSION: Gallstones without secondary signs of acute cholecystitis. Dilated common duct with suspected choledocholithiasis. The findings were sent to the [facility]iology [facility] at 9:45 am on 08/12/2024to be communicated to a licensed caregiver. Interpreted by: Jose Capone MD Preliminary Report By: Jose Capone MD Electronically signed By Jose Capone MD Dictated Date: 08/12/2024 9:44:12 AM Prelim Date: 08/12/2024 9:46:00 AM Sign Date: 08/12/2024 9:46:00 AM Ordering Provider: VANGIE Mack [facility] CT PELVIS W/O CONTRASTon CT PELVIS W/O CONTRAST ORIGINAL EXAMINATION: CT OF THE PELVIS WITHOUT CONTRAST 06/09/2024 10:53 am TECHNIQUE: CT of the pelvis was performed without the administration of intravenous contrast. Multiplanar reformatted images are provided for review. Adjustment of mA and/or kV according to patient size was utilized. Automated exposure control, iterative reconstruction, and/or weight based adjustment of the mA/kV was utilized to reduce the radiation dose to as low as reasonably achievable. COMPARISON: Scrotal ultrasound 03/27/2024 HISTORY ORDERING SYSTEM PROVIDED HISTORY: Reason for Exam: undescended R testicle, eval for presence of R testicle FINDINGS: Bones: No evidence of acute fracture or dislocation. No aggressive appearing osseous abnormality or periostitis. Scattered pelvic sclerotic foci, likely bone islands. Soft Tissue: Small left fat containing inguinal hernia. Confirmation of undescended right testicle with an ovoid 2.6 cm soft tissue density located within the right intra-abdominal cavity. There is some additional nodular soft tissue density seen within the right inguinal canal. No significant soft tissue edema or fluid collections. Visualized intrapelvic abdominal organs demonstrate no acute abnormality. Few scattered colonic diverticula without adjacent inflammation to suggest diverticulitis. Dystrophic calcification within the prostate. The bladder is nondilated with circumferential wall thickening. Phleboliths. Small fat containing paraumbilical hernia. IMPRESSION: Confirmation of undescended intra-abdominal right testicle. Some extension of nodular soft tissue into the right inguinal canal of uncertain significance. This may represent prominent vasculature although other etiologies are considered. Consider sonographic follow-up as clinically indicated. I have personally reviewed the images of this examination and agree with the resident's findings and interpretations. Interpreted by: Camron Mac MD Preliminary Report By: Amador Wren Electronically signed By Camron Mac MD Dictated Date: 06/09/2024 11:13:52 AM Prelim Date: 06/09/2024 12:42:25 PM Sign Date: 06/09/2024 12:42:25 PM Ordering Provider: CAYLA HOOPER [facility] US SCROTUM CONTENTSon 2023 US SCROTUM CONTENTS ORIGINAL EXAMINATION: ULTRASOUND OF THE SCROTUM/TESTICLES WITH COLOR DOPPLER FLOW EVALUATION03/27/2024 3:08 pm Scrotal Ultrasound with Duplex Doppler evaluation TECHNIQUE: Duplex ultrasound using B-mode/vazquez scaled imaging, Doppler spectral analysis and color flow Doppler was obtained of the testicles. Grayscale, color Doppler and spectral waveform evaluation COMPARISON: None HISTORY: ORDERING SYSTEM PROVIDED HISTORY: Reason for Exam: undescended right testicle, all images are recorded and archived. FINDINGS: Right testicle: Not diagnostically identified within the right hemiscrotum or inguinal canal. Left testicle: 4.7 x 2.5 x 4.0 cm. No focal nor diffuse abnormalities are seen. Color Doppler flow is seen in both testicles in a symmetric fashion. Spectral waveform analysis of the testicles shows arterial and venous waveforms in both testicles. IMPRESSION: 1. Nonvisualization of the right testicle. 2. Normal appearance to the left testicle. Interpreted by: Ephraim Arana DO Preliminary Report By: Ephraim Arana DO Electronically signed By Ephraim Arana DO Dictated Date: 03/27/2024 3:10:43 PM Prelim Date: 03/27/2024 3:12:22 PM Sign Date: 03/27/2024 3:12:22 PM Ordering Provider: SHIRA ARIAS [facility] Vital Signs Date Time Vital Sign Value Performing Clinician Faci lity 12-31-2024 10:04-0400 Body height 177.8 cm Shira Arias RESIDENCE HALL DIRECTOR-C Work Phone: [facility] 12-31-2024 10:04-0400 Body mass index (BMI) [Ratio] 29.3 kg/m2 Shira Arias [employer]IDENCE HALL DIRECTOR-C Work Phone: [facility] 12-31-2024 10:04-0400 Body temperature 97.6 [degF] Shira Arias [employer]IDENCE HALL DIRECTOR-C Work Phone: [facility] 12-31-2024 10:04-0400 Body weight 92.75 kg Shira Arias [employer]IDENCE HALL DIRECTOR-C Work Phone: [facility] 12-31-2024 10:04-0400 Diastolic blood pressure 70 mm[Hg] Shira Arias [employer]IDENCE HALL DIRECTOR-C Work Phone: [facility] 12-31-2024 10:04-0400 Heart rate 67 /min Shira Arias [employer]IDENCE HALL DIRECTOR-C Work Phone: [facility] 12-31-2024 10:04-0400 Respiratory rate 18 /min Shira Arias RESIDENCE HALL DIRECTOR-C Work Phone: [facility] 12-31-2024 10:04-0400 Systolic blood pressure 100 mm[Hg] Shira Arias [employer]IDENCE HALL DIRECTOR-C Work Phone: [facility] 12-16-2024 14:17-0400 Body temperature 98.7 [degF] Shira Arias [employer]IDENCE HALL DIRECTOR-C Work Phone: [facility] 12-16-2024 14:17-0400 Diastolic blood pressure 79 mm[Hg] Shira Arias [employer]IDENCE HALL DIRECTOR-C Work Phone: [facility] 12-16-2024 14:17-0400 Heart rate 69 /min Shira Arias [employer]IDENCE HALL DIRECTOR-C Work Phone: [facility] 12-16-2024 14:17-0400 Respiratory rate 16 /min Shira Arias [employer]IDENCE HALL DIRECTOR-C Work Phone: [facility] 12-16-2024 14:17-0400 SaO2% (BldA) [Mass fraction] 96 % Shira Arias [employer]IDENCE HALL DIRECTOR-C Work Phone: [facility] 12-16-2024 14:17-0400 Systolic blood pressure 113 mm[Hg] Shira Arias [employer]IDENCE HALL DIRECTOR-C Work Phone: [facility] 12-15-2024 14:00-0400 Body height 178 cm Shira Arias RESIDENCE HALL DIRECTOR-C Work Phone: [facility] 12-15-2024 14:00-0400 Body mass index (BMI) [Ratio] 29.3 kg/m2 Shira Arias [employer]IDENCE HALL DIRECTOR-C Work Phone: [facility] 12-15-2024 14:00-0400 Body weight 93 kg Shira Arias RESIDENCE HALL DIRECTOR-C Work Phone: [facility] 12-14-2024 15:52-0400 Body temperature 98.2 [degF] Shira Arias RESIDENCE HALL DIRECTOR-C Work Phone: [facility] 12-14-2024 15:52-0400 Diastolic blood pressure 84 mm[Hg] Shira Arias RESIDENCE HALL DIRECTOR-C Work Phone: [facility] 12-14-2024 15:52-0400 Heart rate 88 /min Shira Arias [employer]IDENCE HALL DIRECTOR-C Work Phone: [facility] 12-14-2024 15:52-0400 Respiratory rate 17 /min Shira Arias [employer]IDENCE HALL DIRECTOR-C Work Phone: [facility] 12-14-2024 15:52-0400 SaO2% (BldA) [Mass fraction] 94 % Shira Arias [employer]IDENCE HALL DIRECTOR-C Work Phone: [facility] 12-14-2024 15:52-0400 Systolic blood pressure 138 mm[Hg] Shira Arias RESIDENCE HALL DIRECTOR-C Work Phone: [facility] 12-14-2024 10:14-0400 Body height 177.8 cm Shira Arias RESIDENCE HALL DIRECTOR-C Work Phone: [facility] 12-14-2024 10:14-0400 Body mass index (BMI) [Ratio] 29.4 kg/m2 Shira Arias [employer]IDENCE HALL DIRECTOR-C Work Phone: [facility] 12-14-2024 10:14-0400 Body weight 92.98 kg Shira Arias RESIDENCE HALL DIRECTOR-C Work Phone: [facility] 12-11-2024 14:30-0400 Body temperature 97.2 [degF] Shira Arias RESIDENCE HALL DIRECTOR-C Work Phone: [facility] 12-11-2024 14:30-0400 Diastolic blood pressure 83 mm[Hg] Shira Arias [employer]IDENCE HALL DIRECTOR-C Work Phone: [facility] 12-11-2024 14:30-0400 Heart rate 77 /min Shira Arias [employer]IDENCE HALL DIRECTOR-C Work Phone: [facility] 12-11-2024 14:30-0400 Respiratory rate 16 /min Shira Arias RESIDENCE HALL DIRECTOR-C Work Phone: [facility] 12-11-2024 14:30-0400 SaO2% (BldA) [Mass fraction] 93 % Shira Arias RESIDENCE HALL DIRECTOR-C Work Phone: [facility] 12-11-2024 14:30-0400 Systolic blood pressure 100 mm[Hg] Shira Arias RESIDENCE HALL DIRECTOR-C Work Phone: [facility] 12-11-2024 13:03-0400 Body height 177.8 cm Shira Arias RESIDENCE HALL DIRECTOR-C Work Phone: [facility] 12-11-2024 13:03-0400 Body mass index (BMI) [Ratio] 29.7 kg/m2 Shira Arias [employer]IDENCE HALL DIRECTOR-C Work Phone: [facility] 12-11-2024 13:03-0400 Body weight 93.8 kg Shira Arias RESIDENCE HALL DIRECTOR-C Work Phone: [facility] 09-11-2024 08:02-0500 Body mass index (BMI) [Ratio] 29.1 kg/m2 Shira Arias RESIDENCE HALL DIRECTOR-C Work Phone: [facility] 09-11-2024 08:02-0500 Body weight 92.07 kg Shira Arias RESIDENCE HALL DIRECTOR-C Work Phone: [facility] 09-11-2024 08:02-0500 Diastolic blood pressure 84 mm[Hg] Shira Arias RESIDENCE HALL DIRECTOR-C Work Phone: [facility] 09-11-2024 08:02-0500 Heart rate 72 /min Shira Arias RESIDENCE HALL DIRECTOR-C Work Phone: [facility] 09-11-2024 08:02-0500 SaO2% (BldA) [Mass fraction] 98 % Shira Arias RESIDENCE HALL DIRECTOR-C Work Phone: [facility] 09-11-2024 08:02-0500 Systolic blood pressure 123 mm[Hg] Shira Arias RESIDENCE HALL DIRECTOR-C Work Phone: [facility] 09-07-2024 08:00-0500 Body temperature 97.7 [degF] Shira Arias RESIDENCE HALL DIRECTOR-C Work Phone: [facility] 09-07-2024 08:00-0500 Diastolic blood pressure 72 mm[Hg] Shira Arias RESIDENCE HALL DIRECTOR-C Work Phone: [facility] 09-07-2024 08:00-0500 Heart rate 70 /min Shira Arias RESIDENCE HALL DIRECTOR-C Work Phone: [facility] 09-07-2024 08:00-0500 Respiratory rate 18 /min Shira Arias RESIDENCE HALL DIRECTOR-C Work Phone: [facility] 09-07-2024 08:00-0500 SaO2% (BldA) [Mass fraction] 99 % Shira Arias RESIDENCE HALL DIRECTOR-C Work Phone: [facility] 09-07-2024 08:00-0500 Systolic blood pressure 114 mm[Hg] Shira Arias RESIDENCE HALL DIRECTOR-C Work Phone: [facility] 09-06-2024 06:00-0500 Body mass index (BMI) [Ratio] 29.2 kg/m2 Shira Arias [employer]IDENCE HALL DIRECTOR-C Work Phone: [facility] 09-06-2024 06:00-0500 Body weight 92.6 kg Shira Arias RESIDENCE HALL DIRECTOR-C Work Phone: [facility] Encounters Encounter Date Encounter Type Care Provider Facility Start: 03-17-2025 ambulatory Camron Shoemaker Facility: [facility] Start: 03-08-2025 End: 03-08-2025 ambulatory Camron Shoemaker Facility:[facility] Start: 02-24-2025 End: 02-24-2025 ambulatory Shira Arias [employer]IDENCE HALL DIRECTOR-C Work Phone: [facility] Work Phone: Start: 02-24-2025 End: 02-24-2025 Patient encounter procedure Michela Sal RESIDENCE HALL DIRECTOR-C -Nuclear Medicine [facility] Work Phone: Start: 02-24-2025 End: 02-24-2025 ambulatory Michela Sal NP Facility:[facility] Start: 02-02-2025 ambulatory MICHELA ACUNA MANAGER [employer] RENTAL CLERK Facility:[facility] Start: 01-05-2025 Registered Referred Michela roe RESIDENCE HALL DIRECTOR-C -Laboratory Specimen Work Phone: Start: 01-05-2025 ambulatory Mihcela Sal NP Fa cility:[facility] Start: 12-31-2024 End: 12-31-2024 ambulatory Shira Arias RESIDENCE HALL DIRECTOR-C Work Phone: [facility] Work Phone: Start: 12-31-2024 End: 12-31-2024 Patient encounter procedure Cayla Quiñonez NP-C -Laboratory Work Phone: Start: 12-31-2024 End: 12-31-2024 Patient encounter procedure Cayla Quiñonez NP-C -[facility] Work Phone: Start: 12-31-2024 End: 12-31-2024 ambulatory Shira Arias RESIDENCE HALL DIRECTOR Facility:[facility] Start: 12-31-2024 End: 12-31-[address] Camron Shoemaker MD -[facility] Work Phone: Start: 12-31-2024 End: 12-31-2024 ambulatory Camron Shoemaker Facility:[facility] Start: 12-31-2024 End: 12-31-2024 ambulatory Shira Arias NP Facility:[facility] Start: 12-16-2024 Non-patient / Non-visit Dr. Francesco Lui MD -[facility] Work Phone: Start: 12-16-2024 Non-patient / Non-visit Dr. Camron Shoemaker MD -[facility] Start: 12-15-2024 Non-patient / Non-visit Denys Babin DO [facility] Start: 12-15-2024 Non-patient / Non-visit Dr. Francesco Lui MD -[facility] Work Phone: Start: 12-14-2024 ambulatory Cruz Escudero ility:[facility] Start: 12-14-2024 End: 12-16-2024 Evaluation and management of inpatient Dr. Cruz Arciniega DO -Progressive Care Unit Work Phone: Start: 12-11-2024 End: 12-11-2024 Admission to same day surgery center Denys Babin DO -Endoscopy Work Phone: Start: 12-11-2024 End: 12-11-2024 ambulatory Shira Arias RESIDENCE HALL DIRECTOR-C Work Phone: [facility] Work Phone: Start: 12-11-2024 End: 12-11-2024 Non-patient / Non-visit Denyskelly Babin DO [facility] Start: 09-11-2024 End: 09-11-[address] Francesco Lui MD -[facility] Work Phone: Start: 09-11-2024 End: 09-11-2024 ambulatory Shira Arias RESIDENCE HALL DIRECTOR Facility:[facility] Start: 09-11-2024 End: 09-11-2024 ambulatory Shira Arias RESIDENCE HALL DIRECTOR Facility:[facility] Start: 09-07-2024 Non-patient / Non-visit Dr. Edwina Kimball DO [facility] Work Phone: Start: 09-07-2024 Non-patient / Non-visit Denysenrique Babin DO [facility] Start: 09-06-2024 Non-patient / Non-visit Dr. Cruz Arciniega DO [facility] Work Phone: Start: 09-05-2024 End: 09-05-2024 ambulatory Denys Olaf Facility:[facility] Start: 09-05-2024 End: 09-05-2024 Non-patient / Non-visit Denyskelly Babin DO [facility] Start: 2024 Non-patient / Non-visit Denyskelly Babin DO [facility] Start: 2024 ambulatory Cruz Arciniega [facility] ility:[facility] Start: 2024 End: 09-07-2024 Evaluation and management of inpatient Dr. Edwina Kimball DO [facility] Work Phone: Start: 08-12-2024 End: 08-12-2024 ambulatory SHIRA ARIAS MANAGER [employer] CLERK Facility:[facility] Start: 08-12-2024 End: 08-12-2024 Patient encounter procedure CAYLA HOOPER MANAGER [employer]ENTAL CLERK [facility] Start: 08-06-2024 ambulatory VANGIE Morrell MANAGER [employer]AL CLERK Facility:[facility] Start: 06-11-2024 End: 06-11-2024 ambulatory CAYLA HOOPER MANAGER [employer] CLERK Facility:[facility] Start: 06-11-2024 End: 06-11-2024 Patient encounter procedure CAYLA HOOPER MANAGER [employer]ENTAL CLERK [facility] Start: 06-09-2024 End: 06-09-2024 ambulatory CAYLA HOOPER MANAGER [employer] CLERK Facility:[facility] Start: 06-09-2024 End: 06-09-2024 Patient encounter procedure CAYLA HOOPER MANAGER [employer] CLERK [facility] Start: 05-27-2024 ambulatory CAYLA NELSON MANAGER [employer] CLERK Facility:[facility] Start: 05-14-2024 End: 05-14-2024 ambulatory CAYLA HOOPER MANAGER [employer] CLERK Facility:[facility] Start: 03-27-2024 End: 03-27-2024 ambulatory SHIRA SALVADORARSENIO MANAGER [employer] CLERK Facility:[facility] Start: 03-27-2024 End: 03-27-2024 Patient encounter procedure SHIRA JUANA MANAGER [employer] CLERK [facility] Procedures Date Procedure Procedure Detail Performing Clinician Start: 02-24-2025 Radionuclide study of abdomen Shira lemons [employer]IDENCE HALL DIRECTOR-C Work Phone: Start: 01-05-2025 Fibrinogen assay, quantitative Shira russo RESIDENCE HALL DIRECTOR-C Work Phone: Start: 01-05-2025 Homocysteine measurement Shira Arias RESIDENCE HALL DIRECTOR-C Work Phone: Comment on above: Performed at: [address] [id number] Director: Raj Dick PhD, Phone: [phone] Start: 12-16-2024 Estimated creatinine clearance Shira russo RESIDENCE HALL DIRECTOR-C Work Phone: Start: 12-15-2024 End: 12-15-2024 Endoscopic retrograde cholangiopancreatography Shira Arias [employer]IDENCE HALL DIRECTOR-C Work Phone: Start: 12-15-2024 Fluoroscopic guidance Shira Arias RESIDENCE HALL DIRECTOR- C Work Phone: Start: 12-14-2024 Blood culture Shira Arias [employer]ENCE HALL DIRECTOR-C Work Phone: Start: 12-14-2024 SARS-CoV-2, Influenza & RSV (PCR) Kulwinder Arias RESIDENCE HALL DIRECTOR-C Work Phone: Start: 12-14-2024 Urnls dip stick/tablet reagent auto microscopy Shira Arias [employer]IDENCE HALL DIRECTOR-C Work Phone: Start: 12-14-2024 X-ray of chest, PA and lateral views Shira Arias RESIDENCE HALL DIRECTOR-C Work Phone: Start: 12-14-2024 Computed tomography of abdomen and pelvis with intravenous contrast Shira Salvadorarsenio RESIDENCE HALL DIRECTOR-C Work Phone: Start: 12-11-2024 End: 12-11-2024 Endoscopic retrograde cholangiopancreatography Shira Arias RESIDENCE HALL DIRECTOR-C Work Phone: Start: 12-11-2024 Fluoroscopic guidance Shira Arias RESIDENCE HALL DIRECTOR- C Work Phone: Start: 09-06-2024 Magnetic resonance cholangiopancreatography Shira Arias RESIDENCE HALL DIRECTOR-C Work Phone: Start: 09-05-2024 Endoscopic retrograde cholangiopancreatography Shira Salvadorarsenio RESIDENCE HALL DIRECTOR-C Work Phone: Start: 09-05-2024 Fluoroscopic guidance Shira Arias RESIDENCE HALL DIRECTOR- C Work Phone: Start: 09-05-2024 Endoscopic retrograde cholangiopancreatography Shira Arias RESIDENCE HALL DIRECTOR-C Work Phone: Start: 2024 Computed tomography of abdomen and pelvis with intravenous contrast Shira Salvadorarsenio RESIDENCE HALL DIRECTOR-C Work Phone: Start: 2024 US scan of gallbladder Shira Juana RESIDENCE HALL DIRECTOR -C Work Phone: Plan of Treatment Date Care Activity Detail Author Start: 03-22-2025 ambulatory Facility:[facility] Start: 12-16-2024 Patient discharge [facility] Start: 12-16-2024 Referral to general surgeon [facility] Start: 12-16-2024 Consultation [facility] Start: 12-16-2024 Gamma glutamyl transferase measurement [facility] Start: 12-15-2024 Following clinical pathway protocol [facility] Start: 12-15-2024 Complete blood count [facility] Start: 12-14-2024 Ambulation without limitation [facility] Start: 12-14-2024 Assessment of risk of venous thromboembolism [facility] Start: 12-14-2024 Incentive spirometry [facility] Start: 12-14-2024 Insertion of catheter into peripheral vein [facility] Start: 12-14-2024 Oxygen therapy [facility] Start: 12-14-2024 Providing care according to standard [facility] Start: 12-14-2024 Referral to gastroenterology service [facility] Start: 12-14-2024 [facility] Start: 12-14-2024 Verification routine [facility] Start: 12-14-2024 Admission procedure [facility] Start: 12-14-2024 Bacteria identified in Blood by Culture Blood Culture [facility] Start: 12-14-2024 Blood culture Blood Culture [facility] Start: 12-14-2024 [facility] Start: 12-11-2024 Ercp remove calculi/debris biliary/pancreas duct ERCP REMOVE DUCT CALCULI [facility] Start: 12-11-2024 Ercp remove foreign body/stent biliary/panc duct ERCP REMOVE FORGN BODY DUCT [facility] Start: 12-11-2024 Ercp w/sphincterotomy/papillot thomas ENDO CHOLANGIOPANCREATOGRAPH [facility] Start: 12-11-2024 Patient discharge [facility] Start: 09-07-2024 Patient discharge [facility] Start: 09-07-2024 Catheterization of vein [facility] Start: 09-07-2024 Oxygen therapy [facility] Start: 09-07-2024 Vital signs measurements [facility] Start: 2024 Application of intermittent pneumatic compression device [facility] Start: 2024 Ambulation without limitation [facility] Start: 2024 Assessment of risk of venous thromboembolism [facility] Start: 2024 Documentation procedure [facility] Start: 2024 Insertion of catheter into peripheral vein [facility] Start: 2024 Measuring intake and output [facility] Start: 2024 Providing care according to standard [facility] Start: 2024 Referral to gastroenterology service [facility] Start: 2024 Referral to service [facility] Start: 2024 [facility] Start: 2024 Following clinical pathway protocol [facility] Start: 2024 Admission procedure [facility] Alanine aminotransfe rase [Enzymatic activity/volume] in Serum or Plasma [facility] Albumin [Mass/volume ] in Serum or Plasma [facility] Alkaline phosphatase [Enzymatic activity/volume] in Serum or Plasma [facility] Anion gap in Serum o r Plasma [facility] Bilirubin, total measurement [facility] BUN/Creatinine ratio [facility] Calcium [Mass/volume ] in Serum or Plasma [facility] Carbon dioxide, tota l [Moles/volume] in Central venous blood [facility] Carcinoembryonic Ag [Mass/volume] in Serum or Plasma [facility] Creatinine [Mass/vol ume] in Serum or Plasma [facility] CT Abdomen and Pelvi s WO and W contrast IV [facility] Erythrocyte mean corpuscular volume determination [facility] Glucose [Mass/volume ] in Serum or Plasma [facility] Hematocrit [Volume Fraction] of Blood [facility] Hemoglobin [Mass/vol ume] in Blood [facility] Hepatic function panel [facility] Leukocytes [#/volume ] in Blood [facility] Mean corpuscular hemoglobin concentration determination [facility] Mean corpuscular hemoglobin determination [facility] Measurement of renal function [facility] Patient referral [facility] Work Phone: Platelets [#/volume] in Blood [facility] Potassium measurement [facility] Red blood cell count [facility] Red cell distributio n width determination [facility] Serum chloride measurement [facility] Sodium measurement [facility] Total protein measurement [facility] Urea nitrogen [Mass/volume] in Serum or Plasma [facility] Payers Date Payer Category Payer Unknown [id number] 2024 Self-pay 1985 Unknown [id number] 2.16.8 40.1.284287.3.579.2.627 1985 Unknown [id number] 2.16.8 40.1.810857.3.579.2.627 1985 Unknown [id number] 2.16.8 40.1.846779.3.579.2.627 1985 Unknown [id number] 2.16.8 40.1.948422.3.579.2.627 1985 Unknown [id number] 2.16.8 40.1.873762.3.579.2.627 1983 Unknown [id number] 2.16.8 40.1.333799.3.579.2.627 1983 Unknown [id number] 2.16.8 40.1.009194.3.579.2.627 1985 Unknown [id number] 2.16.8 40.1.696482.3.579.2.627 1985 Unknown [id number] 2.16.8 40.1.745018.3.579.2.627 Unknown [id number] 2.16.8 40.1.526345.3.579.2.462 Unknown [id number] 2.16.8 40.1.350858.3.579.2.462 Unknown [id number] 2.16.8 40.1.624497.3.579.2.462 Unknown [id number] 2.16.8 40.1.163722.3.579.2.462 Unknown [id number] 2.16.8 40.1.784345.3.579.2.462 Unknown [id number] 2.16.8 40.1.484383.3.579.2.462 Unknown [id number] 2.16.8 40.1.818262.3.579.2.462 Unknown [id number] 2.16.8 40.1.977625.3.579.2.462 Unknown [id number] 2.16.8 40.1.988485.3.579.2.462 Unknown [id number] 2.16.8 40.1.936657.3.579.2.462 Unknown [id number] 2.16.8 40.1.739890.3.579.2.462 Unknown [id number] 2.16.8 40.1.119909.3.579.2.462 Unknown [id number] 2.16.8 40.1.621328.3.579.2.462 Unknown [id number] 2.16.8 40.1.771297.3.579.2.462 Unknown [id number] 2.16.8 40.1.239227.3.579.2.462 Unknown [id number] 2.16.8 40.1.888691.3.579.2.462 Unknown [id number] 2.16.8 40.1.984266.3.579.2.462 Unknown [id number] 2.16.8 40.1.063017.3.579.2.462 Unknown [id number] 2.16.8 40.1.991000.3.579.2.462 Unknown [id number] 2.16.8 40.1.453910.3.579.2.462 Unknown [id number] 2.16.8 40.1.789912.3.579.2.462 Unknown [id number] 2.16.8 40.1.806553.3.579.2.462 Unknown [id number] 2.16.8 40.1.055660.3.579.2.462 Unknown [id number] 2.16.8 40.1.308605.3.579.2.462 Unknown [id number] 2.16.8 40.1.997924.3.579.2.462 Unknown [id number] 2.16.8 40.1.258670.3.579.2.462 Unknown [id number] 2.16.8 40.1.950404.3.579.2.462 Unknown [id number] 2.16.8 40.1.882984.3.579.2.462 Unknown [id number] 2.16.8 40.1.593846.3.579.2.462 Social History Date Type Detail Facility Start: 01-29-2024 End: 12-31-2024 Tobacco smoking status Never smoked tobacco (finding) [facility] Start: 1985 Sex Assigned At Male A [facility] Start: 12-11-2024 End: 01-05-2025 Sex Male (finding) [facility] Medical Equipment Procedure Code Equipment Code Equipment Origin al Text Equipment Identifier Dates ERCP (endoscopic retrograde cholangiopancreatog claribel) Polymeric biliary stent, non-bioabsorbable ()[id number] FDA Start: 09-05-2024 ERCP (endoscopic retrograde cholangiopancreatog claribel) Polymeric biliary stent, non-bioabsorbable ()[id number] FDA Start: 09-05-2024 ERCP (endoscopic retrograde cholangiopancreatog claribel) ([id number]) Polymeric biliary stent, non-bioabsorbable ()[id number] FDA Start: 09-05-2024 ERCP (endoscopic retrograde cholangiopancreatog claribel) STENT,RX PLASTIC BILIARY [id number] FDA Start: 12-15-2024 ERCP (endoscopic retrograde cholangiopancreatog claribel) STENT,RX PLASTIC BILIARY 10X7 FDA Start: 12-15-2024 ERCP (endoscopic retrograde cholangiopancreatog claribel) STENT,RX PLASTIC BILIARY 10X7 FDA Start: 12-15-2024 Goals Date Patient Goal Desired Activity /State Functional Status Date Assessment Result Facility 12-16-2024 Functional status Ambulates [facility] Work Phone: 09-07-2024 Functional status Up ad jaimee [facility] Work Phone: Mental Status Date Assessment Result Facility 12-16-2024 Cognitive function Voice/Name [facility] Work Phone: 12-14-2024 Cognitive function Level Of Cons ciousness Awake;Alert;Appropriate;Follow s Commands [facility] Work Phone: 12-11-2024 Cognitive function Touch/Shaking [facility] Work Phone: 09-07-2024 Cognitive function Voice/Name [facility] Work Phone: Clinical Notes 01-29-2024 to 02-24-2025 Note Date & Type Note Facility 02-24-2025 Nuclear medicine Diagnostic study note [facility] Imaging Services [address] [place] [address] Hepatobilliary Imaging MR#: [id number] Acct: [id number] Name: DIANE CONNORS Rep #: [id number] : 1985 M 39 From: Franco Soto MD PCP: AGUILAR Giles Status: JOSE MIGUEL POLO Study:Hepatobilliary Imaging Date of Exam: 02/24/25 Exam# [id number] Ordering Dr: Michela Sal RESIDENCE HALL DIRECTOR RESIDENCE HALL DIRECTOR-C PROCEDURE: HEPATOBILLIARY IMAGING 02/24/2025 REASON FOR EXAM: CALCULUS OF GALLBLADDER WITH ACUTE CHOLECYSTITIS W TECHNIQUE: Intravenous Choletec with planar imaging of the abdomen. RADIOPHARMACEUTICAL: 5.6 mCi of technetium labeled mebrofenin. COMPARISON: None FINDINGS: There is good uptake of the radiopharmaceutical by the liver. The gallbladder is not visualized up to 2 hours following the injection of the radiopharmaceutical. NM/Hepatobilliary Imaging IMPRESSION: NONVISUALIZATION OF THE GALLBLADDER SUSPICIOUS FOR ACUTE CHOLECYSTITIS Reading Location: [place] [address] CC: AGUILAR Sal; AGUILAR Arias ~ Welder Apprentice: Signed [facility] 12-16-2024 Consult note [facility] 12-16-2024 Discharge summary Note Date/Time December 16, 2024 2:16pm [facility] Medical Records Department [address] [place] [address] Discharge Summary 12/16/24 1413 MR#: [id number] Acct: [id number] Name: DIANE CONNORS Rep #:[id number] : 1985 39 From: Francesco Love PCP: AGUILAR Giles Status:ADM I N Location: [place] [address] Providers Date of Admission: 12/14/24 Date of Discharge: 12/16/24 Primary Care Physician: AGUILAR Giles Consultations 12/14/24 16:30 Consult: Gastroenterology Routine Consulting Provider: [facility] Reason for Consult: recent ERCP, elevated LFTs EMERGENT Consult: No MD Notified: Yes Date Notified: 12/14/24 Time Notified: 16:31 Method of Notification: Text 12/16/24 11:06 Consult: Infectious Disease Routine Consulting Provider: Jared Arevalo Reason for Consult: Strep AND GNR in blood, cholangitis EMERGENT Consult: No Notified: Yes Date Notified: 12/16/24 Time Notified: 11:06 Method of Notification: Text 12/16/24 11:08 Consult: General Surgery Routine Consulting Provider: Camron Shoemaker Reason for Consult: choledololithiasis WITH cholelithiasis EMERGENT Consult: No Notified: Yes Date Notified: 12/16/24 Time Notified: 11:08 Method of Notification: Verbal Reason For Visit: RECENT ERCP W FEVERS Diagnosis Discharge Diagnosis (1) Choledocholithiasis: Status: Resolved Code(s): K80.50 - Calculus of bile duct without cholangitis or cholecystitis without obstruction Plan Patient is a 39-year-old male who presented to [facility] ED on 12/14/2024 with fevers and chills after recent ERCP to remove the stent. Gallstone was removed on Saturday. 1. Suspected cholangitis probably aggravated by recent ERCP with choledocholithiasis: Patient is being admitted to PCU. Patient had fever on Saturday at home after ERCP on last Saturday. After admission Tmax 99.7 Fahrenheit. Currently patient on IV Zosyn. Office visit note reviewed. Patient has elevated ALT since August 2024 as per [employer]. Fluctuates between 50 to 78. Admitted with 354, improving, 227. AST also elevated. Totalbilirubin 16.7 on 09/07, improved to 4.43 and today 5.85. Last ERCP on 12/11 showed biliary tree dilated with a stone causing obstruction, complete removal was accomplished by sphincterotomy and balloon extraction. 1 stent was removed from biliary tree. His further said in first week of October his labs showed AST ALT 33/34 his bilirubin was about 1.0 although no Documentary evidence to corroborate. I talked to the in detail after discussion with Dr. Babin. I gave the option of transfer to tertiary care of consideration of repeat ERCP with endoscopic ultrasound after cholangitis gets better with IV antibiotic. Patientalso needs lap arthur after control of the infection. Patient said she willmake decision after talking to Dr. Babin whom I informed. 12/16: Leukocytosis has resolved. Patient wants to go home as he asked in the morning in the afternoon. Liver chemistry shows improvement in total and directbilirubin, ALT AST and alkaline phosphatase. AST is normal. Electrolytes in normal range. Patient was seen by ID and okay to discharge on Augmentin 875 mg twice daily for 1 more week. Patient was also evaluated by surgeon Dr. Shoemaker who advised follow-up in the office in 2-week to plan for laparoscopic cholecystectomy. Discussed with Dr. Babin. Follow-up in GI office in 2 weeks to see improvement in the liver chemistry 2. Overweight ? BMI 29 on admit. Encouraged lifestyle modifications. DVT prophylaxis: Lovenox CODE STATUS: Full code, verified Discharge medication reconciliation done. Discharge follow-up instructions completed. Discharge process discussed with the patient and all questions wereanswered to patient's satisfaction. Follow with PCP in 1 to 2 weeks Total time spent, exact 35 minutes on discharge meds reconciliation, examination, coordination of care with nurses and ancillary staff, review of imaging and blood test and discussion with the patient on follow-up instructions. Medications at Discharge Home Medications amoxicillin 875 mg-potassium clavulanate 125 mg tablet 1 tab PO BID 1 week #14 tabs 12/16/24 Physical Exam Narrative Seen and examined. No fever chills. Patient is feeling good and sitting upright. Jaundice is alsogot better. No abdominal pain. Physical exam General: Alert, Oriented x3, Cooperative HEENT: Slight icterus present. Atraumatic, PERRLA, EOMI, Normocephalic Oral: No Gingival or Mucosal Lesions/ Ulcerations Neck: Supple, No JVD, Negative Carotid Bruits Chest wall/Lungs: Air entry diminished in bilateral lung bases. No crepitation/rhonchi Cardiovascular: Regular rate, Regular Rhythm, Normal S1, Normal S2, No M/G/R Abdomen: Bowel Sounds Present, Soft, Non Tender, Non-Distended : No dysuria. No renal angle tenderness. No suprapubic tenderness. Extremities: No edema, Capillary Refill Less than 3 Seconds Skin: No rashes, No breakdown Musculoskeletal: No Tenderness to Palpation of Joints or Extremities Neurological: Cranial nerves II-XII grossly intact, DTR 2+/4. No acute focal neurological deficit. Psych/Mental Status: Flat affect. Weight / BMI Weight Weight: 205 lb 0.478 oz Body Mass Index (BMI) 29.3 ABG / Lab / Microbiology Data 12/16/24 05:09 12/16/24 05:09 Laboratory: Laboratory Results - last 24 hr 12/16/24 05:09: WBC 6.1, RBC 4.63, Hgb 13.5, Hct 39.8 L, MCV 86.0, MCH 29.2, MCHC 33.9, RDW Std Deviation 40.5, RDW Coeff of Joanne 13.0, Plt Count 153, MPV 9.8, Immature Gran % (Auto) 1.600 H, Neut % (Auto) 61.0, Lymph % (Auto) 20.8, Cross % (Auto) 13.5 H, Eos % (Auto) 2.3, Baso % (Auto) 0.8, Absolute Neuts (auto) 3.7, Absolute Lymphs (auto) 1.28, Nucleated RBC % 0, Sodium 139, Potassium 4.0, Chloride 104, Carbon Dioxide 24.8, Anion Gap 10, BUN 14, Creatinine 1.06, Estim Creat Clear Calc 105.07, Est GFR (MDRD) Non-Af 90, BUN/Creatinine Ratio 12.7, Glucose 85, Calcium 9.0, Total Bilirubin 2.75 H, Direct Bilirubin 1.88 H, AST 29, ALT 149 H, Alkaline Phosphatase 136 H, Total Protein 6.2, Albumin 3.1 L, Globulin 3.1 Microbiology: Microbiology 12/14/24 12:25 Blood Culture (Wb) - Anticubital Left Blood Culture - Preliminary GNR lactose service rig operator 12/14/24 12:25 Blood Culture (Wb) - Anticubital Left Blood Culture - Preliminary GNR lactose service rig operator Alpha Hemolytic Streptococcus 12/14/24 12:25 Mucosa - Nose SARS-CoV-2, Influenza & RSV (PCR) - Final Radiography Diagnostic Testing: Radiology Impression Endo Retro Cholangiopancreatogram 12/15/24 17:35 IMPRESSION: Fluoroscopy during ERCP as above. Reading Location: [facility] D/C Instructions DC O2, CPAP, BIPAP Needs Home O2 Discharge instructions: No Meaningful Use Info Meaningful Use Meaningful Use Diagnoses (Choose all that apply): None applicable Ischemic Stroke Statin Dosing Therapy Reference: STATIN DOSE THERAPY REFERENCE: * Patients > 75 years receive moderate or high dose statin therapy. * Patients 75 years or YOUNGER should receive HIGH intensity statin dose unless contraindicated. You will be required to document reason for non-treatment if statin daily dose does not meet guidelines. HIGH DOSE STATIN THERAPY DAILY Atorvastatin > than or = to 40 mg Rosuvastatin > than or = to 20 mg Amlodipine + Atorvastatin > than or = to 2.5/40 mg Ezetimibe + Simvastatin 10/80 mg Simvastatin 80mg Discharge Plan Admission Admit Date/Time: 12/14/24 14:45 Attending Provider: Francesco Lui Primary Care Provider: Shira Arias NP Consulting Providers: Cruz Arciniega; Camron Shoemaker; Jared Arevalo Instructions Additional Instructions / Restrictions: Pnrg-xic-jesofqk Tylenol 500 mg every 6 hourly for fever more than 102 Fahrenheit Discharge Orders/Prescriptions Prescriptions: New amoxicillin-pot clavulanate 875-125 mg tablet 1 tab PO BID 7 Days Qty: 14 0RF Referrals / Follow Up: Camron Shoemaker MD [Med Staff - Active Staff] - Within 2 Weeks Denys Babin DO [Med Staff - Active Staff] - Within 1 Month Cayla Quiñonez NP-C [Med Staff - Adv Practice Prof] - Within 2 Weeks (Follow-up liver chemistry) Shira Arias NP, ELLI-Marli [Primary Care Provider] - Disposition Disposition (needs filled in before D/C Order can be placed): Home, Self Care Charges/Coding Visit Charges Inpatient E&M: 11216 Disch Hosp >30min 12/16/24 1416 <Electronically signed by Francesco Lui MD> Cosigner Signature (if applicable): CC: AGUILAR Arias; Dr. Camron Shoemaker MD; Dr. Francesco Lui MD; Dr. Jared Arevalo MD; Denys Babin DO~ Signed [facility] Work Phone: 1(388) 816-960203-19-2025 Discharge summary Author Francesco Lui [facility] Note Date/Time December 16, 2024 2:1 3pm [facility] Medical Records Department [address] [place] [address] Instructions for Home/Discharge Instructions 12/16/24 1405 MR#: [id number] Acct: [id number] Name: DIANE CONNORS Rep #:[id number] : 1985 39 From: Francesco Love PCP: AGUILAR Giles Status:ADM I N Discharge Instructions DC O2, CPAP, BIPAP needs Home O2 Discharge instructions: No Follow Up Care Test Results: Test results from this visit will be discussed in further detail at your follow- up appointment, if applicable. Discharge Plan Admission Admit Date/Time: 12/14/24 14:45 Attending Provider: Francesco Lui Primary Care Provider: Shira Arias NP Consulting Providers: Cruz Arciniega; Camron Shoemaker; Jared Arevalo Instructions Additional Instructions / Restrictions: Wbgb-fji-jueradv Tylenol 500 mg every 6 hourly for fever more than 102 Fahrenheit Discharge Orders/Prescriptions Prescriptions: New amoxicillin-pot clavulanate 875-125 mg tablet 1 tab PO BID 7 Days Qty: 14 0RF Referrals / Follow Up: Camron Shoemaker MD [Med Staff - Active Staff] - Within 2 Weeks Denys Babin DO [Med Staff - Active Staff] - Within 1 Month Cayla Quiñonez NP-C [Med Staff - Adv Practice Prof] - Within 2 Weeks (Follow- up liver chemistry) Shira Arias NP, NP-C [Primary Care Provider] - Disposition Disposition (needs filled in before D/C Order can be placed): Home, Self Care 12/16/24 1413<Electronically signed by Francesco Lui MD>Francesco Lui MD CC: AGUILAR Arias; Dr. Cruz Arciniega DO; Dr. Camron Shoemaker MD; Dr. Jared Arevalo MD ~ Signed [facility] Work Phone: 1(605) 445-262403-19-2025 Consult note Author Camron Shoemaker [facility] Note Date/Time December 16, 2024 12: 25pm [facility] Medical Records Department [address] [place] [address] Consultation - Surgical 12/16/24 1211 MR#: [id number] Acct: [id number] Name: DIANE CONNORS Rep #:[id number] : 1985 39 From: Camron Love PCP: AGUILAR Giles Status:ADM I N Location: [place] [address] Assessment & Plan Assessment/Plan (1) Choledocholithiasis: PLAN: Patient is a 39-year-old male who is currently inpatient after presentation with acute ascending cholangitis and recurrent choledocholithiasis. He appears to be responding well to treatment status post ERCP with stent replacement yesterday 12/16/2024. Patient's initial presentation with choledocholithiasis came August 2024 when his total bilirubin was markedly elevated at 24 (maximum level). Following up presentation he was advised to seek surgical consultation for cholecystectomy but declined this recommendation as he wished to keep his gallbladder. It was also recommended that he complete a liver biopsy given his marked laboratory abnormalities that he did not follow through with this order. Upon obtaining laboratories that showed normal liver function testing he requested ERCP for stent removal with GI and this was completed 12/11/2024. Patient ultimately presented with signs and symptoms of ascending cholangitis on 12/15/2024 but he confesses within a day to a day and a half following his procedure he started to experience recurrence of his abdominal pain. Thus, patient underwent repeat ERCP with replacement of the stent on 12/15/2024. Upon visiting him he appears to once again be responding well to treatment. However, his blood culture Gram stain is positive and signifies gram-negative bacteremia. He has no pain on my exam with palpation ofhis right upper quadrant. I held a lengthy conversation with patient and his spouse?including and drawings to illustrate relevant anatomy and physiology. I discussed with them the basics of choledocholithiasis and the necessity of cholecystectomy as part of the management for this process to mitigate the risk for recurrence. Given patient's personal experience this ikpby-lls-sujjna appears clear to them. Patient's spouse does offer that her waited overa month with his jaundice before presenting at the initial encounter and thus attributes his marked lab abnormalities to this delay in seeking care. Following this discussion I offered my recommendation for a short interval follow-up as an outpatient to then schedule laparoscopic cholecystectomy with intraoperative cholangiography. I also offered to perform a core needle biopsy at the time of the procedure as a means of hopefully mitigating any periprocedural bleeding and obtaining a specimen as requested by both Drs. Babin and Hu to exclude a primary hepatocellular or biliary pathology. Lastly, on exam I did find a fat?incarcerated umbilical hernia measuring between1 and 2 cm at the fascial defect. I thus offered primary repair of this hernia in addition to the other components of the procedure but quickly followed this with expected activity restrictions postoperatively. Patient and the spouse expressed appreciation for these explanations and a willingness to proceed as described. Information has also been relayed to patient's primary hospitalist, Dr. Thomson.d Please complete antibiotic course for treatment of gram-negative bacteremia and directed to follow-up with general surgery as an outpatient. Camron Shoemaker MD General Surgery Endocrine Surgery Pager: [facility] [address] [place] [address], [facility], [address] [place] [address] Office: [phone] HPI Consult Data Date of Consult: 12/16/24 HPI Narrative Reason for Consultation: Recurrent choledocholithiasis HPI Narrative: DIANE CONNORS, is a 39 M who is evaluated at the request of the hospitalist teamafter presenting with acute ascending cholangitis and choledocholithiasis statuspost ERCP with stent removal on 12/11/2024. Gastroenterology performed repeat ERCP with stone removal and repeat stenting on 12/15/2024. Patient's fever curveand leukocytosis appear to be improving, however, his blood cultures are positive for gram- negative species. Upon visitation patient states that he is feeling much better and has requested discharge to home. His is present inthe room upon visiting. Patient shares that he initially was inclined to try to keep his gallbladder after his initial experience with choledocholithiasis status post ERCP and stenting August 2024 when his T. bili was noted to be elevated as high as 24. He reports that his numbers all returned to normal when checked through the [facility] system and that is what prompted him to request stent removal from gastroenterology. Gastroenterology had advised against stent removal givenpatient had gallbladder still in place but at patient insistence they proceeded with stent removal. Patient has no significant past medical history aside from the above. He has nohistory of abdominal surgeries. [facility] Medical History Overweight (BMI 25.0-29.9) No pertinent past medical history Home Medications ?Medication ?Instructions ?Recorded ?Last Taken ?Type NK 09/04/24 Unknown History Allergy/AdvReac Type Severity Reaction Status Date / Time No Known Allergies Allergy Verified 12/14/24 10:16 Surgical History History of ERCP Social History Smoking Status: Never smoker alcohol intake: never Physical Exam Const alert, oriented x3 and no apparent distress Eyes Eyes Narrative: Scleral icterus present Resp normal respiratory effort GI GI Narrative: Nondistended, normal habitus, soft, nontender to palpation. Umbilical hernia observed which appears to contain incarcerated fat and is mildly tender to palpation. Hernia defect estimated at 1.5 cm in diameter. Negative Isidro sign. Lab / Micro Data 12/16/24 05:09 12/16/24 05:09 Labs: Laboratory Results - last 24 hr 12/16/24 05:09: WBC 6.1, RBC 4.63, Hgb 13.5, Hct 39.8 L, MCV 86.0, MCH 29.2, MCHC 33.9, RDW Std Deviation 40.5, RDW Coeff of Joanne 13.0, Plt Count 153, MPV 9.8, Immature Gran % (Auto) 1.600 H, Neut % (Auto) 61.0, Lymph % (Auto) 20.8, Cross % (Auto) 13.5 H, Eos % (Auto) 2.3, Baso % (Auto) 0.8, Absolute Neuts (auto) 3.7, Absolute Lymphs (auto) 1.28, Nucleated RBC % 0, Sodium 139, Potassium 4.0, Chloride 104, Carbon Dioxide 24.8, Anion Gap 10, BUN 14, Creatinine 1.06, Estim Creat Clear Calc 105.07, Est GFR (MDRD) Non-Af 90, BUN/Creatinine Ratio 12.7, Glucose 85, Calcium 9.0, Total Bilirubin 2.75 H, Direct Bilirubin 1.88 H, AST 29, ALT 149 H, Alkaline Phosphatase 136 H, Total Protein 6.2, Albumin 3.1 L, Globulin 3.1 Micro: Microbiology 12/14/24 12:25 Blood Culture (Wb) - Anticubital Left Blood Culture - Preliminary GNR 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 Reading Location: [facility] Charges/Coding Visit Charges Inpatient E&M: 73321 Init Hosp L2 12/16/24 1225 <Electronically signed by Camron Shoemaker MD> Cosigner Signature (if applicable): CC: AGUILAR Arias~ Signed [facility] Work Phone: 1(376) 902-119003-19-2025 Discharge summary [facility] Medical Records Department [address] [place] [id number] Discharge Summary 12/16/24 1413 MR#: [id number] Acct: [id number] Name: DIANE CONNORS Rep #:[id number] : 1985 39 From: Francesco Love PCP: AGUILAR Giles Status:ADM I N Location: [place] [address] 1 Providers Date of Admission: 12/14/24 Date of Discharge: 12/16/24 Primary Care Physician: AGUILAR Giles Consultations 12/14/24 16:30 Consult: Gastroenterology Routine Consulting Provider: [facility] Reason for Consult: recent ERCP, elevated LFTs EMERGENT Consult: No Notified: Yes Date Notified: 12/14/24 Time Notified: 16:31 Method of Notification: Text 12/16/24 11:06 Consult: Infectious Disease Routine Consulting Provider: Jared Arevalo Reason for Consult: Strep AND GNR in blood, cholangitis EMERGENT Consult: No Notified: Yes Date Notified: 12/16/24 Time Notified: 11:06 Method of Notification: Text 12/16/24 11:08 Consult: General Surgery Routine Consulting Provider: Camron Shoemaker Reason for Consult: choledololithiasis WITH cholelithiasis EMERGENT Consult: No Notified: Yes Date Notified: 12/16/24 Time Notified: 11:08 Method of Notification: Verbal Reason For Visit: RECENT ERCP W FEVERS Diagnosis Discharge Diagnosis (1) Choledocholithiasis: Status: Resolved Code(s): K80.50 - Calculus of bile duct without cholangitis or cholecystitis without obstruction Plan Patient is a 39-year-old male who presented to [facility] ED on 12/14/2024 with fevers and chills after recent ERCP to remove the stent. Gallstone was removed on Saturday. 1. Suspected cholangitis probably aggravated by recent ERCP with choledocholithiasis: Patient is being admitted to PCU. Patient had fever on Saturday at home after ERCP on last Saturday. After admission Tmax 99.7 Fahrenheit. Currently patient on IV Zosyn. Office visit note reviewed. Patient has elevated ALT since August 2024 as per [employer]. Fluctuates between 50 to 78. Admitted with 354, improving, 227. AST also elevated. Totalbilirubin 16.7 on 09/07, improved to 4.43 and today 5.85. Last ERCP on 12/11 showed biliary tree dilated with a stone causing obstruction, complete removal was accomplished by sphincterotomy and balloon extraction. 1 stent was removed from biliary tree. His further said in first week of October his labs showed AST ALT 33/34 his bilirubin was about 1.0 although no Documentary evidence to corroborate. I talked to the in detail after discussion with Dr. Babin. I gave the option of transfer to tertiary care of consideration of repeat ERCP with endoscopic ultrasound after cholangitis gets better with IV antibiotic. Patientalso needs lap arthur after control of the infection. Patient said s he willmake decision after talking to Dr. Babin whom I informed. 12/16: Leukocytosis has resolved. Patient wants to go home as he asked in the morning in the afternoon. Liver chemistry shows improvement in total and directbilirubin, ALT AST and alkaline phosphatase. AST is normal. Electrolytes in normal range. Patient was seen by ID and okay to discharge on Augmentin 875 mg twice daily for 1 more week. Patient was also evaluated by surgeon Dr. Shoemaker who advisedfollow-up in the office in 2-week to plan for laparoscopic cholecystectomy. Discussed with Dr. Babin. Follow-up in GI office in 2 weeks to see improvement in the liver chemistry 2. Overweight ? BMI 29 on admit. Encouraged lifestyle modifications. DVT prophylaxis: Lovenox CODE STATUS: Full code, verified Discharge medication reconciliation done. Discharge follow-up instructions completed. Discharge process discussed with the patient and all questions wereanswered to patient's satisfaction. Follow with PCP in 1 to 2 weeks Total time spent, exact 35 minutes on discharge meds reconciliation, examination, coordination of care with nurses and ancillary staff, review of imaging and blood test and discussion with the patient on follow-up instructions. Medications at Discharge Home Medications amoxicillin 875 mg-potassium clavulanate 125 mg tablet 1 tab PO BID 1 week #14 tabs 12/16/24 Physical Exam Narrative Seen and examined. No fever chills. Patient is feeling good and sitting upright. Jaundice is alsogot better. No abdominal pain. Physical exam General: Alert, Oriented x3, Cooperative HEENT: Slight icterus present. Atraumatic, PERRLA, EOMI, Normocephalic Oral: No Gingival or Mucosal Lesions/ Ulcerations Neck: Supple, No JVD, Negative Carotid Bruits Chest wall/Lungs: Air entry diminished in bilateral lung bases. No crepitation/rhonchi Cardiovascular: Regular rate, Regular Rhythm, Normal S1, Normal S2, No M/G/R Abdomen: Bowel Sounds Present, Soft, Non Tender, Non-Distended : No dysuria. No renal angle tenderness. No suprapubic tenderness. Extremities: No edema, Capillary Refill Less than 3 Seconds Skin: No rashes, No breakdown Musculoskeletal: No Tenderness to Palpation of Joints or Extremities Neurological: Cranial nerves II-XII grossly intact, DTR 2+/4. No acute focal neurological deficit. Psych/Mental Status: Flat affect. Weight / BMI Weight Weight: 205 lb 0.478 oz Body Mass Index (BMI) 29.3 ABG / Lab / Microbiology Data 12/16/24 05:09 12/16/24 05:09 Laboratory: Laboratory Results - last 24 hr 12/16/24 05:09: WBC 6.1, RBC 4.63, Hgb 13.5, Hct 39.8 L, MCV 86.0, MCH 29.2, MCHC 33.9, RDW Std Deviation 40.5, RDW Coeff of Joanne 13.0, Plt Count 153, MPV 9.8, Immature Gran % (Auto) 1.600 H, Neut % (Auto) 61.0, Lymph % (Auto) 20.8, Cross % (Auto) 13.5 H, Eos % (Auto) 2.3, Baso % (Auto) 0.8, AbsoluteNeuts (auto) 3.7, Absolute Lymphs (auto) 1.28, Nucleated RBC % 0, Sodium 139, Potassium 4.0, Chloride 104, Carbon Dioxide 24.8, Anion Gap 10, BUN 14, Creatinine 1.06, Estim Creat Clear Calc 105.07, Est GFR (MDRD) Non-Af 90, BUN/Creatinine Ratio 12.7, Glucose 85, Calcium 9.0, Total Bilirubin 2.75 H,Direct Bilirubin 1.88 H, AST 29, ALT 149 H, Alkaline Phosphatase 136 H, Total Protein 6.2, Albumin 3.1 L, Globulin 3.1 Microbiology: Microbiology 12/14/24 12:25 Blood Culture (Wb) - Anticubital Left Blood Culture - Preliminary GNR lactose service rig operator 12/14/24 12:25 Blood Culture (Wb) - Anticubital Left Blood Culture - Preliminary GNR lactose service rig operator Alpha Hemolytic Streptococcus 12/14/24 12:25 Mucosa - Nose SARS-CoV-2, Influenza & RSV (PCR) - Final Radiography Diagnostic Testing: Radiology Impression Endo Retro Cholangiopancreatogram 12/15/24 17:35 IMPRESSION: Fluoroscopy during ERCP as above. Reading Location: [id number] D/C Instructions DC O2, CPAP, BIPAP Needs Home O2 Discharge instructions: No Meaningful Use Info Meaningful Use Meaningful Use Diagnoses (Choose all that apply): None applicable Ischemic Stroke Statin Dosing Therapy Reference: STATIN DOSE THERAPY REFERENCE: * Patients > 75 years receive moderate or high dose statin therapy. * Patients 75 years or YOUNGER should receive HIGH intensity statin dose unless contraindicated. You will be required to document reason for non-treatment if statin daily dose does not meet guidelines. HIGH DOSE STATIN THERAPY DAILY Atorvastatin > than or = to 40 mg Rosuvastatin > than or = to 20 mg Amlodipine + Atorvastatin > than or = to 2.5/40 mg Ezetimibe + Simvastatin 10/80 mg Simvastatin 80mg Discharge Plan Admission Admit Date/Time: 12/14/24 14:45 Attending Provider: Francesco Lui Primary Care Provider: Shira Arias NP Consulting Providers: Cruz Arciniega; Camron Shoemaker; Jared Arevalo Instructions Additional Instructions / Restrictions: Vvvi-ohf-ggxaebr Tylenol 500 mg every 6 hourly for fever more than 102 Fahrenheit Discharge Orders/Prescriptions Prescriptions: New amoxicillin-pot clavulanate 875-125 mg tablet 1 tab PO BID 7 Days Qty: 14 0RF Referrals / Follow Up: Camron Shoemaker MD [Med Staff - Active Staff] - Within 2 Weeks Denys Babin DO [Med Staff - Active Staff] - Within 1 Month Cayla Quiñonez NP-C [Med Staff - Adv Practice Prof] - Within 2 Weeks (Follow- up liver chemistry) Shira Arias NP, ELLI-C [Primary Care Provider] - Disposition Disposition (needs filled in before D/C Order can be placed): Home, Self Care Charges/Coding Visit Charges Inpatient E&M: 61195 Disch Hosp >30min 12/16/24 1416 Cosigner Signature (if applicable): CC: AGUILAR Arias; Dr. Camron Shoemaker MD; Dr. Francesco Lui MD; Dr. Jared Arevalo MD; Denys Babin DO~ Signed [facility]03-19-2025 Discharge summary [facility] Medical Records Department [address] [place] [address] Instructions for Home/Discharge Instructions 12/16/24 1405 MR#: [id number] Acct: [id number] Name: DIANE CONNORS Rep #:[id number] : 1985 39 From: Francesco Love PCP: AGUILAR Giles Status:ADM I N Discharge Instructions DC O2, CPAP, BIPAP needs Home O2 Discharge instructions: No Follow Up Care Test Results: Test results from this visit will be discussed in further detail at your follow- up appointment, if applicable. Discharge Plan Admission Admit Date/Time: 12/14/24 14:45 Attending Provider: Francesco Lui Primary Care Provider: Shira Arias NP Consulting Providers: Cruz Arciniega; Camron Shoemaker; Jared Arevalo Instructions Additional Instructions / Restrictions: Xeen-pex-qyrrptl Tylenol 500 mg every 6 hourly for fever more than 102 Fahrenheit Discharge Orders/Prescriptions Prescriptions: New amoxicillin-pot clavulanate 875-125 mg tablet 1 tab PO BID 7 Days Qty: 14 0RF Referrals / Follow Up: Camron Shoemaker MD [Med Staff - Active Staff] - Within 2 Weeks Denys Babin DO [Med Staff - Active Staff] - Within 1 Month Cayla Quiñonez NP-C [Med Staff - Adv Practice Prof] - Within 2 Weeks (Follow- up liver chemistry) Shira Arias NP, ELLI-C [Primary Care Provider] - Disposition Disposition (needs filled in before D/C Order can be placed): Home, Self Care 12/16/24 1413Psteve Lui MD CC: ROLYC Shira Arias; Dr. Cruz Arciniega DO; Dr. Camron Shoemaker MD; Dr. Jared Arevalo MD ~ Signed [facility]19[facility] Consult note [facility] Medical Records Department [address] [place] [address] Consultation - Surgical 12/16/24 1211 MR#: [id number] Acct: [id number] Name: DIANE CONNORS Rep #:[id number] : 1985 39 From: Camron Love PCP: Shira Arias NP-C Status:ADM I N Location: [place] [address]- Assessment & Plan Assessment/Plan (1) Choledocholithiasis: PLAN: Patient is a 39-year-old male who is currently inpatient after presentation with acute ascending cholangitis and recurrent choledocholithiasis. He appears to be responding well to treatment status post ERCP with stent replacement yesterday 12/16/2024. Patient's initial presentation with choledo cholithiasis came August 2024 when his total bilirubin was markedly elevated at 24 (maximum level). Following up presentation he was advised to seek surgical consultation for cholecystectomy but declined this recommendation as he wished to keep his gallbladder. It was also recommended that he complete a liver biopsy given his marked laboratory abnormalities that he did not follow through with [facility] order. Upon obtaining laboratories that showed normal liver function testing he requested ERCP for stent removal with GI and this was completed 12/11/2024. Patient ultimately presented with signs and symptoms of ascending cholangitis on 12/15/2024 but he confesses within a day to a day and a half following his procedure he started to experience recurrence of his abdominal pain. Thus, patient underwent repeat ERCP with replacement of the stent on 12/15/2024. Upon visiting him he appears to once again be responding well to treatment. However, his blood culture Gram stain is positive and signifies gram-negative bacteremia. He has no pain on my exam with palpation ofhis right upper quadrant. I held a lengthy conversation with patient and his spouse?including and drawings to illustrate relevant anatomy and physiology. I discussed with them the basics of choledocholithiasis and the necessity of cholecystectomy as part of the management for this process to mitigate the risk for recurrence. Given patient's personal experience this eqdth-qbt-hbtema appears clear to them. Patient's spouse does offer that her waited overa month with his jaundice before presenting at the initial encounter and thus attributes his marked lab abnormalities to this delay in seeking care. Following this discussion I offered my recommendation for a short interval follow-up as an outpatient to then schedu le laparoscopic cholecystectomy with intraoperative cholangiography. I also offered to perform a core needle biopsy at the time of the procedure as a means of hopefully mitigating any periprocedural bleeding and obtaining a specimen as requested by both Drs. Babin and Hu to exclude a primary hepatocellular or biliary pathology. Lastly, on exam I did find a fat?incarcerated umbilical hernia measuring between1 and 2 cm at the fascial defect. I thus offered primary repair of this hernia in addition to the other components of the procedure but quickly followed this with expected activity restrictions postoperatively. Patient and the spouse expressed appreciation for these explanations and a willingness to proceed as described. Information has also been relayed to patient's primary hospitalist, Dr. Thomson.kasey Please complete antibiotic course for treatment of gram-negative bacteremia and directed to follow-up with general surgery as an outpatient. Camron Shoemaker MD General Surgery Endocrine Surgery Pager: [facility] [address] [place] [address], [facility], [address] [place] [id number] Office: [phone] HPI Consult Data Date of Consult: 12/16/24 HPI Narrative Reason for Consultation: Recurrent choledocholithiasis HPI Narrative: DIANE CONNORS, is a 39 M who is evaluated at the request of the hospitalist teamafter presenting with acute ascending cholangitis and choledocholithiasis statuspost ERCP with stent removal on 12/11/2024. Gastroenterology performed repeat ERCP with stone removal and repeat stenting on 12/15/2024. Patient's fever curveand leukocytosis appear to be improving, however, his blood cultures are positive for gram-negative species. Upon visitation patient states that he is feeling much better and has requested discharge to home. His is present inthe room upon visiting. Patient shares that he initially was inclined to try to keep his gallbladder after his initial experience with choledocholithiasis status post ERCP and stenting August 2024 when his T. bili was noted to be elevated as high as 24. He reports that his numbers all returned to normal when checked through the [facility] system and that is what prompted him to request stent removal from gastroenterology. Gastroenterology had advised against stent removal givenpatient had gallbladder still in place but at patient insistence they proceeded with stent removal. Patient has no significant past medical history aside from the above. He has nohistory of abdominalsurgeries. [facility] Medical History Overweight (BMI 25.0-29.9) No pertinent past medical history Home Medications ?Medication ?Instructions ?Recorded ?Last Taken ?Type NK 09/04/24 Unknown History Allergy/AdvReac Type Severity Reaction Status Date / Time No Known Allergies Allergy Verified 12/14/24 10:16 Surgical History History of ERCP Social History Smoking Status: Never smoker alcohol intake: never Physical Exam Const alert, oriented x3 and no apparent distress Eyes Eyes Narrative: Scleral icterus present Resp normal respiratory effort GI GI Narrative: Nondistended, normal habitus, soft, nontender to palpation. Umbilical hernia observed which appearsto contain incarcerated fat and is mildly tender to palpation. Hernia defect estimated at 1.5 cm indiameter. Negative Isidro sign. Lab / Micro Data 12/16/24 05:09 12/16/24 05:09 Labs: Laboratory Results - last 24 hr 12/16/24 05:09: WBC 6.1, RBC 4.63, Hgb 13.5, Hct 39.8 L, MCV 86.0, MCH 29.2, MCHC 33.9, RDW Std Deviation 40.5, RDW Coeff of Joanne 13.0, Plt Count 153, MPV 9.8, Immature Gran % (Auto) 1.600 H, Neut % (Auto) 61.0, Lymph % (Auto) 20.8, Cross % (Auto) 13.5 H, Eos % (Auto) 2.3, Baso % (Auto) 0.8, AbsoluteNeuts (auto) 3.7, Absolute Lymphs (auto) 1.28, Nucleated RBC % 0, Sodium 139, Potassium 4.0, Chloride 104, Carbon Dioxide 24.8, Anion Gap 10, BUN 14, Creatinine 1.06, Estim Creat Clear Calc 105.07, Est GFR (MDRD) Non-Af 90, BUN/Creatinine Ratio 12.7, Glucose 85, Calcium 9.0, Total Bilirubin 2.75 H,Direct Bilirubin 1.88 H, AST 29, ALT 149 H, Alkaline Phosphatase 136 H, Total Protein 6.2, Albumin 3.1 L, Globulin 3.1 Micro: Microbiology 12/14/24 12:25 Blood Culture (Wb) - Anticubital Left Blood Culture - Preliminary GNR 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 Reading Location: [facility] Charges/Coding Visit Charges Inpatient E&M: 18354 Init Hosp L2 12/16/24 1225 Cosigner Signature (if applicable): CC: AGUILAR Arias~ Signed [facility]03-18-2025 Consult note Author Gray López [facility] Note Date/Time December 15, 2024 6:4 5pm [facility] Medical Records Department [address] [place] [address] Anesthesia Postop Eval II 12/15/24 1845 MR#: [id number] Acct: [id number] Name: DIANE CONNORS Rep #:[id number] : 1985 39 From: Gray López MD PCP: AGUILAR Giles Status:ADM I N Y Race: C Location: [place] [address] 0-1 Anesthesia Postop Eval I Sum Postop Eval Completion status Anesthesia document: Postop Eval 1 completed: Yes Anesthesia Postop Eval I Summary Anesthesia Postop Eval I Summary: Anesthesia Postop Eval I: Assessment Summary Airway patent Yes 12/15/24 18:44 Spontaneous unlabored Yes 12/15/24 18:44 respirations Mental status Awake 12/15/24 18:44 nausea No 12/15/24 18:44 Vomiting No 12/15/24 18:44 Anesthesia Postop Eval I: Fluid Summary Crystalloid volume administer 500 12/15/24 18:44 (ml) Colloids volume administered ( ml) Blood Product volume administered (ml) Total IV fluid infused 500 12/15/24 18:44 Anesthesia Postop Eval I: Summary Notes Anesthesia Complication No 12/15/24 18:44 Anesthesia Complication Comment: Post-operative progress note Anesthesia: Postop Eval II Evaluation Mental status: Awake Pain Level: 0 nausea: No Vomiting: No Complications Anesthesia Complication: No 12/15/241844 <Electronically signed by Gray López MD> Date _ Gray López MD Cosigner Signature: Date CC: ~ Signed [facility] Work Phone: 1(903) 496-129403-18-2025 Consult note Author Gray [facility] Note Date/Time December 15, 2024 6:4 4pm [facility] Medical Records Department [address] [place], [place] [address] [address] Anesthesia Postop Eval I 12/15/241842 MR#: [id number] Acct: [id number] Name: DIANE CONNORS Rep #:[id number] : 1985 39 From: Gray López MD PCP: AGUILAR Giles Status:ADM I N Y Race: C Location: [place] [address] 0-1 Anesthesia: Postop Eval I Current Vital Signs Temperature: 97.2 F Pulse Rate: 85 Blood Pressure: 110/89 Respiratory Rate: 16 Pulse Ox: 94 Oxygen Delivery Method: Room Air Assessment Airway patent: Yes Spontaneous unlabored respirations: Yes Mental status: Awake nausea: No Vomiting: No Anesthesia Complication: No Fluid Hydration Crystalloid volume administer (ml): 500 Total IV fluid infused: 500 Progress Note Anesthesia document: Postop Eval 1 completed: Yes 12/15/241843 <Electronically signed by Gray López MD> Date _ Gray López MD Cosigner Signature: Date CC: ~ Signed [facility] Work Phone: 1(979) 498-942303-18-2025 Progress note Author Denys Babin [facility] Note Date/Time December 15, 2024 5:3 8pm [facility] Medical Records Department [address] [place] [address] Progress Note 12/15/241733 MR#: [id number] Acct: [id number] Name: DIANE CONNORS Rep #:[id number] : 1985 39 From: Denys Babin DO PCP: AGUILAR Giles Status:ADM I N Location: [place] [address] Progress Note I had a long conversation with patient, patient's family who is also at the bedside regarding ERCP and need for cholecystectomy. Physical Exam Const alert, oriented x3, no apparent distress and healthy appearing General Appearance: cooperative GI normal to inspection, nondistended, normoactive bowel sounds, soft to palpation,non-tender and non-distended Percussion: normal to percussion Rectal Exam: deferred Assessment & Plan Assessment/Plan (1) Hyperbilirubinemia: (2) Elevation of levels of liver transaminase levels: PLAN: Plan Patient is a 39-year-old male who presented to [facility] ED on 12/14/2024 with fevers and chills after recent ERCP. Reported fevers/chills with elevated transaminases after recent ERCP, recent history of choledocholithiasis and suspected history of drug-induced liver injury ? He had ERCP done on 12/11 with choledocholithiasis removed with biliary tree swept, as well as removal of previously placed temporary stent. LFTs on 12/14 elevated and per family they had returned to about normal in October on labs from outside hospital. Agree with IV Zosyn for now. Lipase normal and no evidence of pancreatitis on CT, low concern for post ERCP pancreatitis. Monitordaily LFTs. N.p.o. at midnight for possible repeat ERCP today. . Visit Charges Inpatient E&M: 72627 Subs Hosp L2 12/15/241737 <Electronically signed by Denys Babin DO> Denys Babin DO Cosigner Signature (if applicable): CC: ~ Signed [facility] Work Phone: 1(166) 256-550803-18-2025 Radiology Diagnostic study note [facility] Imaging Services [address] [place] [address] ERCP Biliary/Pancreas MR#: [id number] Acct: [id number] Name: DIANE CONNORS Rep #: [id number] : 1985 M 39 From: Jadiel Lawson MD PCP: AGUILAR Giles Status: ADM I N Study:ERCP Biliary/Pancreas Date of Exam: 12/15/24 Exam# [id number] Ordering Dr: Kayleigh Babin DO PROCEDURE: ERCP BILIARY/PANCREAS 12/15/2024 REASON FOR EXAM: PAIN TECHNIQUE: 12 fluoroscopic spot views during ERCP COMPARISON: 12/11/[address] 12/14/2024. FINDINGS: Fluoroscopy time 95.3 seconds Total dose 30.75 mGy On the 2nd image contrast is seen within the intra and extrahepatic biliary ducts. There is vague bubbly defects within the mid common duct, can not exclude debris or stones. Defects do not persist on later images. Intrahepaticducts appear diffusely mildly dilated than the prior study. No stricture identified. Visualized ductsappear smooth. Contrast within the gallbladder is not seen. Common bile duct stent placed. RAD/ERCP Biliary/Pancreas IMPRESSION: Fluoroscopy during ERCP as above. Reading Location: [id number] CC: RESIDENCE HALL DIRECTOR-C Shira Arias; Denys Babin DO ~ Welder Apprentice: Signed [facility]03-18-2025 Consult note [facility] Medical Records Department [address] [place] [address] Anesthesia Postop Eval II 12/15/24 1845 MR#: [id number] Acct: [id number] Name: DIANE CONNORS Rep #:[id number] : 1985 39 From: Gray López MD PCP: AGUILAR Giles Status:ADM I N Y Race: C Location: PCU PCU12 0-1 Anesthesia Postop Eval I Sum Postop Eval Completion status Anesthesia document: Postop Eval 1 completed: Yes Anesthesia Postop Eval I Summary Anesthesia Postop Eval I Summary: Anesthesia Postop Eval I: Assessment Summary Airway patent Yes 12/15/24 18:44 Spontaneous unlabored Yes 12/15/24 18:44 respirations Mental status Awake 12/15/24 18:44 nausea No 12/15/24 18:44 Vomiting No 12/15/24 18:44 Anesthesia Postop Eval I: Fluid Summary Crystalloid volume administer 500 12/15/24 18:44 (ml) Colloids volume administered ( ml) Blood Product volume administered (ml) Total IV fluid infused 500 12/15/24 18:44 Anesthesia Postop Eval I: Summary Notes Anesthesia Complication No 12/15/24 18:44 Anesthesia Complication Comment: Post-operative progress note Anesthesia: Postop Eval II Evaluation Mental status: Awake Pain Level: 0 nausea: No Vomiting: No Complications Anesthesia Complication: No 12/15/241844 MD> Date _ Gray López MD Cosigner Signature: Date CC: ~ Signed [facility]03-18-2025 Consult note [facility] Medical Records Department [address] [place] [address] Anesthesia Postop Eval I 12/15/24 184 MR#: [id number] Acct: [id number] Name: DIANE CONNORS Rep #:[id number] : 1985 39 From: Gray López MD PCP: AGUILAR Giles Status:ADM I N Y Race: C Location: [place] [address] 0-1 Anesthesia: Postop Eval I Current Vital Signs Temperature: 97.2 F Pulse Rate: 85 Blood Pressure: 110/89 Respiratory Rate: 16 Pulse Ox: 94 Oxygen Delivery Method: Room Air Assessment Airway patent: Yes Spontaneous unlabored respirations: Yes Mental status: Awake nausea: No Vomiting: No Anesthesia Complication: No Fluid Hydration Crystalloid volume administer (ml): 500 Total IV fluid infused: 500 Progress Note Anesthesia document: Postop Eval 1 completed: Yes 12/15/24 1844 MD> Date _ Gray López MD Cosigner Signature: Date CC: ~ Signed [facility]03-18-2025 Consult note Author Gray [place] [facility] Note Date/Time December 15, 2024 4:1 9pm [facility] Medical Records Department [address] [place] [address] Pre-Anesthesia Evaluation 12/15/24 1551 MR#: [id number] Acct: [id number] Name: DIANE CONNORS Rep #:[id number] : 1985 39 From: Gray López MD PCP: AGUILAR Giles Status:ADM I N Y Race: C Location: [place] [address] 0-1 ASA Classification* ASA Classification ASA Classification: 3 Assessment & Plan Anesthesia* Anesthesia Assessment Anesthesia Assessment: Discussed sedation and/or anesthesia options, risks, benefits, and alternatives with patient/parents/legal guardian/POA. Questions invited. The patient/parents/legal guardian/POA seems to understand and agrees to proceedwith anesthesia plan. Reviewed the physical assessment, medical history, allergy history and patient home medications list prior to surgery/procedure/anesthetic and documented any changes. Performed airway and anesthesia risk assessments. Anesthesia Type Anesthesia Type: General History Source History Obtained from:: Patient and Chart Anesthesia Focused Assessment* Temperature: 98.7 F Pulse Rate: 87 Blood Pressure: 122/81 Respiratory Rate: 16 Pulse Ox: 97 Oxygen Delivery Method: Room Air Airway Assessment Mouth opens: >3 cm Mallampati Score: II Teeth Condition: Intact and Chipped/Broken (one) Neck Range of motion (ROM): Full ROM Focused Labs Anesthesia Preop lab: CBC WBC 10.2 K/mm3 (4.4-11.0) 12/15/24 06:46 12/15/24 RBC 5.03 M/mm3 (4.6-6.2) 12/15/24 06:46 12/15/24 Hgb 14.5 g/dL (13.0-16.5) 12/15/24 06:46 12/15/24 Hct 42.2 % (40-54) 12/15/24 06:46 12/15/24 Plt Count 163 K/mm3 (150-450) 12/15/24 06:46 12/15/24 CHEMISTRY Potassium 3.9 mmol/L (3.3-5.1) 12/15/24 06:46 12/15/24 Sodium 137 mmol/L (133-145) 12/15/24 06:46 12/15/24 Magnesium 2.1 mg/dL (1.6-2.6) 09/06/24 07:15 09/06/24 Phosphorus 3.2 mg/dL (2.5-4.9) 09/06/24 07:15 09/06/24 BUN 10 mg/dL (4-19) 12/15/24 06:46 12/15/24 Creatinine 0.99 mg/dL (0.70-1.20) 12/15/24 06:46 12/15/24 Glucose 106 mg/dL (70-99) H 12/15/24 06:46 12/15/24 TSH 0.918 uIU/mL (0.358-3.740) 09/11/24 08:48 08/30 12/21 COAG PT 12.3 SECONDS (11.7-14.9) 09/11/24 08:48 Pre-Assessment Diagnosis/Proposed Procedure Planned Operative Procedure(s): ERCP 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 When Was Last Pacemaker Check QUESTION #4 FULL TEXT: You/Your Family Experience fever (hyperthermia) with Anesthesia Last Oral Intake Last Oral intake: Last Oral Intake NPO since 00:01 12/15/24 14:00 Meds taken in AM with sips of water? 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 Female HX of Motion Sickness HX of N/V After Surgery Non-Smoker Duration of Surgery greater than 60 minutes Number of Risk Factors PONV Score Height & Weight Height & Weight: Anesthesia: Height & Weight Height 5 ft 10.08 in 12/15/24 14:00 Weight: 93 kg 12/15/24 14:00 Body Mass Index (BMI) 29.3 12/15/24 14:00 Respiratory Assessment Respiratory Assessment - special education science teacher: Respiratory Tract Infection Hx - special education science teacher Hx Respiratory Tract Infection No 12/14/24 21:38 STOP Sleep Apnea STOP Sleep Apnea - special education science teacher: STOP Sleep Apnea - special education science teacher Hx Hypertension No 12/14/24 16:44 Hx Sleep Apnea No 12/14/24 16:44 CPAP BIPAP Do you snore loudly (louder Yes 12/14/24 16:44 than talking or can be heard Do you often feel tired/ No 12/14/24 16:44 fatigued/ sleepy during daytime? Has anyone observed you stop No 12/14/24 16:44 breathing during sleep? STOP Results Negative 12/14/24 16:44 QUESTION #5 FULL TEXT : Do you snore loudly (louder than talking or can be heard through closed doors)? Tobacco Use History Tobacco Use History - special education science teacher: Tobacco Use History - special education science teacher Tobacco Use Smoking Status Never smoker 12/14/24 16:44 Hx Tobacco Use No 12/14/24 16:44 Years Smoking Packs Smoked per Day Smoking Cessation Date was within the last 15 years Hx Smoking Cessation Date Hx Smoking Cessation Counseling Hematologic Medial History Hematologic Hx - special education science teacher: Hematologic Medical Hx - car oiler Hx of Blood Transfusion No 12/14/24 16:44 Hx of Transfusion in last 3 No 12/14/24 16:44 Months Date of Last Transfusion (if within last 3 months) Ever experience any problems No 12/14/24 16:44 with transfusion(s)? Specify any problems Hx of Preganancy in last 3 N/A 12/14/24 16:44 Months Nurse Filling Out Transfusion MLEACH3 12/14/24 16:44 & Questions: Date: 12/14/24 12/14/24 16:44 Time: 16:46 12/14/24 16:44 Patient unable to answer at this time (ie. confused, unrespo /Reproduction History /Reproductive History - special education science teacher: /Reproductive Hx- special education science teacher Hx Now No 12/14/24 21:38 Gestational Age (in weeks): EDC: Hx Hx Para Hx Section SAB No 12/14/24 21:38 Active Medications Active Medications: Current Medications Generic Name Dose Route Start Last Admin Trade Name Freq PRN Reason Stop Dose Admin Enoxaparin Sodium 40 mg 12/15/24 10:00 12/15/24 09:27 Enoxaparin 40 Mg/0.4 Ml Syringe SC Not Given DAILY RICARDO Piperacillin Sod/Tazobactam 50 mls @ 12.5 mls/hr 12/14/24 22:00 12/15/24 15:02 Sod 3.375 gm/ Sodium Chloride IV 12.5 mls/hr Q8 RICARDO Administration Sodium Chloride 100 mls @ 15 mls/hr 12/15/24 14:07 IV .Q6H40M PRN Saline Flush Sodium Chloride 100 mls @ 15 mls/hr 12/15/24 14:07 IV .Q6H40M PRN Additional IVPB Infusion Sodium Chloride 1,000 mls @ 15 mls/hr 12/15/24 15:20 IV .Q48H RICARDO Melatonin 3 mg 12/14/24 16:30 Melatonin 3 Mg Tablet PO QHS PRN PRN INSOMNIA Ondansetron HCl 4 mg 12/14/24 16:30 Ondansetron 4 Mg/2 Ml Vial IV Q8H PRN PRN NAUSEA/VOMITING Sodium Chloride 10 - 40 ml 12/15/24 14:07 0.9% Saline Lock 10 Ml Syringe IV UD PRN SALINE FLUSH PFSH Medical History Overweight (BMI 25.0-29.9) No pertinent past medical history Home Medications ?Medication ?Instructions ?Recorded ?Last Taken ?Type NK 09/04/24 Unknown History Allergy/AdvReac Type Severity Reaction Status Date / Time No Known Allergies Allergy Verified 12/14/24 10:16 Surgical History History of ERCP Social History Smoking Status: Never smoker alcohol intake: never Review of Systems (Anesthesia) ROS Narrative System reviewed and no additional complaints, except as documented. Physical Exam Const alert, oriented x3 and average body habitus Resp normal respiratory effort, normal air movement and clear to auscultation bilaterally Cardio regular rate, regular rhythm, no murmurs and diaphoretic 12/15/24 6817 <Electronically signed by Gray López MD> Date _ Gray López MD Cosigner Signature: Date CC: ~ Signed [facility] Work Phone: 1(447) 896-838403-18-2025 Procedure note [facility] Medical Records Department [address] [facility] [place] [place] [address] ERCP Report MR#: [id number] Acct: [id number] Name: DIANE CONNORS Rep #:[id number] : 1985 39 From: Denys Babin DO PCP: AGUILAR Giles Status:ADM I N Patient Name: Diane Connors Procedure Date: 12/15/2024 5:32 PM Date of : 1985 Age: 39 Procedure: ERCP Indications: Bile duct stone(s), Jaundice, Elevated liver enzymes Providers: Denys Babin DO Medicines: Monitored Anesthesia Care Patient Profile: This is a 39 year old male. Refer to note in patient chart for documentation of history and physical. Patient has symptoms of acute right upper quadrant abdominal pain and acute jaundice. Complications: No immediate complications. Procedure: Pre-Anesthesia Assessment: - Prior to the procedure, a History and Physical was performed, and patient medications and allergies were reviewed. The patient is competent. The risks and benefits of the procedure and the sedation options and risks were discussed with the patient. All questions were answered and informed consent was obtained. Patient identification and proposed procedure were verified by the physician in the pre-procedure area. Mental Status Examination: alert and oriented. Airway Examination: normal oropharyngeal airway and neck mobility. Respiratory Examination: clear to auscultation. CV Examination: normal. ASA Grade Assessment: II - A patient with mild systemic disease. After reviewing the risks and benefits, the patient was deemed in satisfactory condition to undergo the procedure. The anesthesia plan was to use monitored anesthesia care (MAC). Immediately prior to administration of medications, the patient was re-assessed for adequacy to receive sedatives. The heart rate, respiratory rate, oxygen saturations, blood pressure, adequacy of pulmonary ventilation, and response to care were monitored throughout the procedure. The physical status of the patient was re-assessed after the procedure. After obtaining informed consent, the scope was passed under direct vision. Throughout the procedure, the patient's blood pressure, pulse, and oxygen saturations were monitored continuously. The Duodenoscope was introduced through the mouth, and advanced to the duodenum and used to inject contrast into the bile duct. The ERCP was accomplished without difficulty. The patient tolerated the procedure well. Scope In: 5:54:13 PM Scope Out: 6:06:19 PM Total Procedure Duration Time 0 hours 12 minutes 6 seconds Findings: The spray ii painter film was normal. The esophagus was successfully intubated under direct vision. The scope was advanced to a normal major papilla in the descending duodenum without detailed examination of the pharynx, larynx and associated structures, and upper GI tract. The upper GI tract was grossly normal. A long 0.025 inch Jagwire was passed into the biliary tree. The short-nosed traction sphincterotome was passed over the guidewire and the bile duct was then deeply cannulated. Contrast was injected. I personally interpreted the bile duct images. There was brisk flow of contrast through the ducts. Image quality was excellent. Contrast extended to the entire biliary tree. Opacification of the entire biliary tree except for the gallbladder, entire opacified area, lower third of the main bile duct, middle third of the main bile duct, upper third of the main bile duct, main bile duct, common bile duct, cystic duct, common hepatic duct, hepatic duct bifurcation, left and right hepatic ducts with secondary or tertiary branches of the intrahepatic ducts (Bismuth IV), left and right hepatic ducts and all intrahepatic branches and entire biliary tree was successful. The maximum diameter of the ducts was 10 mm. The common bile duct and common hepatic duct contained two stones, the largest of which was 6 mm in diameter. The entire biliary tree was diffusely dilated, with a stone causing an obstruction. The largest diameter was 10 mm. A 5 mm biliary sphincterotomy was made with a braided traction (standard) sphincterotome using ERBE electrocautery. There was no post-sphincterotomy bleeding. The biliary tree was swept with a 12 mm balloon starting at the cystic duct, bifurcation and right main hepatic duct. Sludge was swept from the duct. All stones were removed. One 10 Fr by 7 cm stent with a single external flap and no internal flaps was placed 5 cm into the common bile duct. Bile flowed through the stent. The stent was in good position. Impression: - The entire biliary tree was dilated, with a stone causing an obstruction. - Choledocholithiasis was found. Complete removal was accomplished by biliary sphincterotomy and balloon extraction. - A biliary sphincterotomy was performed. - The biliary tree was swept. - One stent was placed into the common bile duct. Procedure Code(s): --- Professional --- 65348, Endoscopic retrograde cholangiopancreatography (ERCP); with placement of endoscopic stent into biliary or pancreatic duct, including pre- and post-dilation and guide wire passage, when performed, including sphincterotomy, when performed, each stent 03816, Endoscopic retrograde cholangiopancreatography (ERCP); with removal of calculi/debris from biliary/pancreatic duct(s) 92478, 26, Endoscopic catheterization of the biliary ductal system, radiological supervision and interpretation CPT copyright 2021 [employer]. All rights reserved. The codes documented in this report are preliminary and upon reel tender review may be revised to meet current compliance requirements. Denys Babin DO 12/15/2024 6:13:06 PM This report has been signed electronically. Number of Addenda: 0 Note Initiated On: 12/15/2024 5:32 PM 12/15/24 1813 Date _ Denys Babin DO Cosigner Signature: Date (if indicated) CC: AGUILAR Arias; Denys Babin DO ~ Date Dictated: 12/15/24 173 Date Transcribed: Welder Apprentice: RF Signed [facility]03-18-2025 Procedure note [facility] Medical Records Department [address] [place] [address] Operative Report - CC Letter MR#: [id number] Acct: [id number] Name: DIANE CONNORS Rep #:[id number] : 1985 39 From: Denys Babin DO PCP: AGUILAR Giles Status:ADM I N 12/15/2024 Shira Arias Re : ERCP procedure for Diane Devin Arias This procedure was performed on Sunday, December 15, 2024. My impressions and recommendations are as follows: Impressions : - The entire biliary tree was dilated, with a stone causing an obstruction. - Choledocholithiasis was found. Complete removal was accomplished by biliary sphincterotomy and balloon extraction. - A biliary sphincterotomy was performed. - The biliary tree was swept. - One stent was placed into the common bile duct. Recommendations : My findings are described in the full procedure note, which is enclosed. If I can be of further assistance, please feel free to contact me at . Sincerely, Denys Babin DO 12/15/2024 6:13:06 PM This report has been signed electronically. 12/15/241812 Date _ Denys Olaf NAVARRO Janes Signature: Date (if indicated) CC: RESIDENCE HALL DIRECTOR-Marli Arias; Dr. Cruz Arciniega DO; Dr. Francesco Lui MD ~ Date Dictated: 12/15/241731 Date Transcribed: Welder Apprentice: ELDER Signed [facility]03-18-2025 Progress note [facility] Medical Records Department [address] [place] [address] Progress Note 12/15/241733 MR#: [id number] Acct: [id number] Name: DIANE CONNORS Rep #:[id number] : 1985 39 From: Denys Babin DO PCP: AGUILAR Giles Status:ADM I N Location: [place] [address] Progress Note I had a long conversation with patient, patient's family who is also at the bedside regarding ERCP and need for cholecystectomy. Physical Exam Const alert, oriented x3, no apparent distress and healthy appearing General Appearance: cooperative GI normal to inspection, nondistended, normoactive bowel sounds, soft to palpation,non-tender and non-distended Percussion: normal to percussion Rectal Exam: deferred Assessment & Plan Assessment/Plan (1) Hyperbilirubinemia: (2) Elevation of levels of liver transaminase levels: PLAN: Plan Patient is a 39-year-old male who presented to [facility] ED on 12/14/2024 with fevers and chills after recent ERCP. Reported fevers/chills with elevated transaminases after recent ERCP, recent history of choledocholithiasis and suspected history of drug-induced liver injury ? He had ERCP done on 12/11 with choledocholithiasis removed with biliary tree swept, as well as removal of previously placed temporary stent. LFTs on 12/14 elevated and per family they had returned toabout normal in October on labs from outside hospital. Agree with IV Zosyn for now. Lipase normal and no evidence of pancreatitis on CT, low concern for post ERCP pancreatitis. Monitordaily LFTs. N.p.o. at midnight for possible repeat ERCP today. . Visit Charges Inpatient E&M: 22831 Subs Hosp L2 12/15/24 7968 Denys Friend DO Cosigner Signature (if applicable): CC: ~ Signed [facility]03-18-2025 Consult note [facility] Medical Records Department [address] [place] [address] Pre-Anesthesia Evaluation 12/15/24 1551 MR#: [id number] Acct: [id number] Name: DIANE CONNORS Rep #:[id number] : 1985 39 From: Gray López MD PCP: AGUILAR Giles Status:ADM I N Y Race: C Location: [place] [address] 0-1 ASA Classification* ASA Classification ASA Classification: 3 Assessment & Plan Anesthesia* Anesthesia Assessment Anesthesia Assessment: Discussed sedation and/or anesthesia options, risks, benefits, and alternatives with patient/parents/legal guardian/POA. Questions invited. The patient/parents/legal guardian/POA seems to understand and agrees to proceedwith anesthesia plan. Reviewed the physical assessment, medical history, allergy history and patient home medications list prior to surgery/procedure/anesthetic and documented any changes. Performed airway and anesthesia risk assessments. Anesthesia Type Anesthesia Type: General History Source History Obtained from:: Patient and Chart Anesthesia Focused Assessment* Temperature: 98.7 F Pulse Rate: 87 Blood Pressure: 122/81 Respiratory Rate: 16 Pulse Ox: 97 Oxygen Delivery Method: Room Air Airway Assessment Mouth opens: >3 cm Mallampati Score: II Teeth Condition: Intact and Chipped/Broken (one) Neck Range of motion (ROM): Full ROM Focused Labs Anesthesia Preop lab: CBC WBC 10.2 K/mm3 (4.4-11.0) 12/15/24 06:46 12/15/24 RBC 5.03 M/mm3 (4.6-6.2) 12/15/24 06:46 12/15/24 Hgb 14.5 g/dL (13.0-16.5) 12/15/24 06:46 12/15/24 Hct 42.2 % (40-54) 12/15/24 06:46 12/15/24 Plt Count 163 K/mm3 (150-450) 12/15/24 06:46 12/15/24 CHEMISTRY Potassium 3.9 mmol/L (3.3-5.1) 12/15/24 06:46 12/15/24 Sodium 137 mmol/L (133-145) 12/15/24 06:46 12/15/24 Magnesium 2.1 mg/dL (1.6-2.6) 09/06/24 07:15 09/06/24 Phosphorus 3.2 mg/dL (2.5-4.9) 09/06/24 07:15 09/06/24 BUN 10 mg/dL (4-19) 12/15/24 06:46 12/15/24 Creatinine 0.99 mg/dL (0.70-1.20) 12/15/24 06:46 12/15/24 Glucose 106 mg/dL (70-99) H 12/15/24 06:46 12/15/24 TSH 0.918 uIU/mL (0.358-3.740) 09/11/24 08:48 08/30 12/21 COAG PT 12.3 SECONDS (11.7-14.9) 09/11/24 08:48 Pre-Assessment Diagnosis/Proposed Procedure Planned Operative Procedure(s): ERCP 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 When Was Last Pacemaker Check QUESTION #4 FULL TEXT: You/Your Family Experience fever (hyperthermia) with Anesthesia Last Oral Intake Last Oral intake: Last Oral Intake NPO since 00:01 12/15/24 14:00 Meds taken in AM with sips of water? 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 Female HX of Motion Sickness HX of N/V After Surgery Non-Smoker Duration of Surgery greater than 60 minutes Number of Risk Factors PONV Score Height & Weight Height & Weight: Anesthesia: Height & Weight Height 5 ft 10.08 in 12/15/24 14:00 Weight: 93 kg 12/15/24 14:00 Body Mass Index (BMI) 29.3 12/15/24 14:00 Respiratory Assessment Respiratory Assessment - special education science teacher: Respiratory Tract Infection Hx - special education science teacher Hx Respiratory Tract Infection No 12/14/24 21:38 STOP Sleep Apnea STOP Sleep Apnea - special education science teacher: STOP Sleep Apnea - special education science teacher Hx Hypertension No 12/14/24 16:44 Hx Sleep Apnea No 12/14/24 16:44 CPAP BIPAP Do you snore loudly (louder Yes 12/14/24 16:44 than talking or can be heard Do you often feel tired/ No 12/14/24 16:44 fatigued/ sleepy during daytime? Has anyone observed you stop No 12/14/24 16:44 breathing during sleep? STOP Results Negative 12/14/24 16:44 QUESTION #5 FULL TEXT : Do you snore loudly (louder than talking or can be heard through closeddoors)? Tobacco Use History Tobacco Use History - special education science teacher: Tobacco Use History - special education science teacher Tobacco Use Smoking Status Never smoker 12/14/24 16:44 Hx Tobacco Use No 12/14/24 16:44 Years Smoking Packs Smoked per Day Smoking Cessation Date was within the last 15 years Hx Smoking Cessation Date Hx Smoking Cessation Counseling Hematologic Medial History Hematologic Hx - special education science teacher: Hematologic Medical Hx - car oiler Hx of Blood Transfusion No 12/14/24 16:44 Hx of Transfusion in last 3 No 12/14/24 16:44 Months Date of Last Transfusion (if within last 3 months) Ever experience any problems No 12/14/24 16:44 with transfusion(s)? Specify any problems Hx of Preganancy in last 3 N/A 12/14/24 16:44 Months Nurse Filling Out Transfusion [email or web address] 12/14/24 16:44 & Questions: Date: 12/14/24 12/14/24 16:44 Time: 16:46 12/14/24 16:44 Patient unable to answer at this time (ie. confused, unrespo /Reproduction History /Reproductive History - special education science teacher: /Reproductive Hx- special education science teacher Hx Now No 12/14/24 21:38 Gestational Age (in weeks): EDC: Hx Hx Para Hx Section SAB No 12/14/24 21:38 Active Medications Active Medications: Current Medications Generic Name Dose Route Start Last Admin Trade Name Freq PRN Reason Stop Dose Admin Enoxaparin Sodium 40 mg 12/15/24 10:00 12/15/24 09:27 Enoxaparin 40 Mg/0.4 Ml Syringe SC Not Given DAILY RICARDO Piperacillin Sod/Tazobactam 50 mls @ 12.5 mls/hr 12/14/24 22:00 12/15/24 15:02 Sod 3.375 gm/ Sodium Chloride IV 12.5 mls/hr Q8 RICARDO Administration Sodium Chloride 100 mls @ 15 mls/hr 12/15/24 14:07 IV .Q6H40M PRN Saline Flush Sodium Chloride 100 mls @ 15 mls/hr 12/15/24 14:07 IV .Q6H40M PRN Additional IVPB Infusion Sodium Chloride 1,000 mls @ 15 mls/hr 12/15/24 15:20 IV .Q48H RICARDO Melatonin 3 mg 12/14/24 16:30 Melatonin 3 Mg Tablet PO QHS PRN PRN INSOMNIA Ondansetron HCl 4 mg 12/14/24 16:30 Ondansetron 4 Mg/2 Ml Vial IV Q8H PRN PRN NAUSEA/VOMITING Sodium Chloride 10 - 40 ml 12/15/24 14:07 0.9% Saline Lock 10 Ml Syringe IV UD PRN SALINE FLUSH PFSH Medical History Overweight (BMI 25.0-29.9) No pertinent past medical history Home Medications ?Medication ?Instructions ?Recorded ?Last Taken ?Type NK 09/04/24 Unknown History Allergy/AdvReac Type Severity Reaction Status Date / Time No Known Allergies Allergy Verified 12/14/24 10:16 Surgical History History of ERCP Social History Smoking Status: Never smoker alcohol intake: never Review of Systems (Anesthesia) ROS Narrative System reviewed and no additional complaints, except as documented. Physical Exam Const alert, oriented x3 and average body habitus Resp normal respiratory effort, normal air movement and clear to auscultation bilaterally Cardio regular rate, regular rhythm, no murmurs and diaphoretic 12/15/24 1619 MD> Date _ Gray López MD Cosigner Signature: Date CC: ~ Signed [facility]03-18-2025 Progress note Author Francesco Lui [facility] Note Date/Time December 15, 2024 2:1 6pm [facility] Medical Records Department [address] [place] [address] Progress Note - Hospitalist 12/15/24 0801 MR#: [id number] Acct: [id number] Name: DIANE CONNORS Rep #:[id number] : 1985 39 From: Francesco Love PCP: AGUILAR Giles Status:ADM I N Location: [place] [address] Reason for Visit Reason for Visit: Diagnoses Other disorders of bilirubin metabolism (12/14/24) Elevation of levels of liver transaminase levels (12/14/24) Objective Data Objective Data Vital Signs: Vital Signs Temp Pulse Resp BP Pulse Ox O2 Del Method 98.8 F 95 16 120/87 H 94 Room Air 12/15/24 04:42 12/15/24 04:42 12/15/24 04:42 12/15/24 04:42 12/15/24 04:42 12/15/24 04:42 Oxygen Delivery Method Room Air Weight: 205 lb 0.478 oz Body Mass Index (BMI) 29.4 Intake & Output: Intake and Output for Last 24 Hours 12/13/24 12/14/24 12/15/24 23:59 23:59 23:59 Intake Total 870 / 1170 350 / 350 Balance 870 / 1170 350 / 350 Lab / Micro Data 12/15/24 06:46 12/15/24 06:46 Labs: Laboratory Results - last 24 hr 12/14/24 11:00: WBC 14.0 H, RBC 5.29, Hgb 15.5, Hct 46.1, MCV 87.1, MCH 29.3, MCHC 33.6, RDW Std Deviation 40.8, RDW Coeff of Joanne 12.8, Plt Count 156, MPV 9.4, Immature Gran % (Auto) 0.900, Neut % (Auto) 90.5 H, Lymph % (Auto) 3.2 L, Cross % (Auto) 4.7, Eos % (Auto) 0.1, Baso % (Auto) 0.6, Absolute Neuts (auto) 12.7 H, Absolute Lymphs (auto) 0.45 L, Nucleated RBC % 0, Differential Comment COMMENT, Sodium 138, Potassium 3.7, Chloride 103, Carbon Dioxide 25.7, Anion Gap10, BUN 12, Creatinine 1.01, Estim Creat Clear Calc 110.26, Est GFR (MDRD) Non-Af 96, BUN/Creatinine Ratio 11.9, Glucose 123 H, Lactic Acid 1.1, Calcium 9.5, Total Bilirubin 4.43 H, Direct Bilirubin 3.43 H, AST 124 H, ALT 354 H, Alkaline Phosphatase 149 H, Total Protein 6.6, Albumin 3.7, Globulin 2.9, Lipase 26 12/14/24 12:43: Urine Color Yellow, Urine Clarity Clear, Urine pH 7.0, Ur Specific [place] 1.005, Urine Protein 30 H, Urine Glucose (UA) Normal, Urine Ketones Negative, Urine Occult Blood 10 H, Urine Nitrite Negative, Urine Bilirubin 3 H, Urine Urobilinogen 1 H, Ur Leukocyte Esterase 25 H, Urine RBC 0-5SEEN, Urine WBC 0-5 SEEN, Ur Squamous Epith Cells 0 SEEN, Urine Bacteria 2+, Urine Mucus 1+ 12/15/24 06:46: WBC 10.2, RBC 5.03, Hgb 14.5, Hct 42.2, MCV 83.9, MCH 28.8, MCHC34.4, RDW Std Deviation 39.7, RDW Coeff of Joanne 12.9, Plt Count 163, MPV 9.8 Micro: Microbiology 12/14/24 12:25 Blood Culture (Wb) - Anticubital Left Blood Culture - Preliminary 12/14/24 12:25 Blood Culture (Wb) - Anticubital Left Blood Culture - Preliminary 12/14/24 12:25 Mucosa - Nose SARS-CoV-2, Influenza & RSV (PCR) - Final Radiography Diagnostic Testing: Radiology Impression Abdomen/Pelvis CT 12/14/24 11:10 IMPRESSION: Mild degree of central intrahepatic biliary ductal dilatation and mild dilatation of the proximal portion of the common bile duct although it decreases in size acetabular is the head of the pancreas. Reading [facility] Chest X-Ray 12/14/24 12:19 IMPRESSION: 1. Mild left basilar airspace disease favorable for atelectasis/scarring howeverthis is not definite in the absence of prior exams to confirm stability. Correlate for mild pneumonia. 2. Additional description as above. Reading Location: [facility] Physical Exam Narrative Seen and examined. Patient does not have abdominal pain but was having fever and chills and jaundice. His further said in first week of October his labs showed AST ALT 33/34 his bilirubin was about 1.0 although no Documentary evidence. Currently patient is NPO. Discussed with Dr. Babin Physical exam General: Alert, Oriented x3, Cooperative HEENT: Icterus present atraumatic, PERRLA, EOMI, Normocephalic Oral: No Gingival or Mucosal Lesions/ Ulcerations Neck: Supple, No JVD, Negative Carotid Bruits Chest wall/Lungs: Air entry diminished in bilateral lung bases. No crepitation/rhonchi Cardiovascular: Regular rate, Regular Rhythm, Normal S1, Normal S2, No M/G/R Abdomen: Bowel Sounds Present, Soft, Non Tender, Non-Distended : No dysuria. No renal angle tenderness. No suprapubic tenderness. Extremities: No edema, Capillary Refill Less than 3 Seconds Skin: No rashes, No breakdown Musculoskeletal: No Tenderness to Palpation of Joints or Extremities Neurological: Cranial nerves II-XII grossly intact, DTR 2+/4. No acute focal neurological deficit. Psych/Mental Status: Flat affect. Assessment & Plan Assessment/Plan (1) Hyperbilirubinemia: (2) Elevation of levels of liver transaminase levels: PLAN: Plan Patient is a 39-year-old male who presented to [facility] ED on 12/14/2024 with fevers and chills after recent ERCP to remove the stent. Gallstone was removed on Saturday. 1. Suspected cholangitis probably aggravated by recent ERCP with choledocholithiasis: Patient is being admitted to PCU. Patient had fever on Saturday at home after ERCP on last Saturday. After admission Tmax 99.7 Fahrenheit. Currently patient on IV Zosyn. Office visit note reviewed. Patient has elevated ALT since August 2024 as per [employer]. Fluctuates between 50 to 78. Admitted with 354, improving, 227. AST also elevated. Totalbilirubin 16.7 on 09/07, improved to 4.43 and today 5.85. Last ERCP on 12/11 showed biliary tree dilated with a stone causing obstruction, complete removal was accomplished by sphincterotomy and balloon extraction. 1 stent was removed from biliary tree. I talked to the in detail after discussion with Dr. Babin. I gave the option of transfer to tertiary care of consideration of repeat ERCP with endoscopic ultrasound after cholangitis gets better with IV antibiotic. Patientalso needs lap arthur after control of the infection. Patient said she willmake decision after talking to Dr. Babin whom I informed. 2. Overweight ? BMI 29 on admit. Encouraged lifestyle modifications. DVT prophylaxis: Lovenox CODE STATUS: Full code, verified Charges/Coding Addendum Addendum: Total time of the visit including total time spent in counseling or coordinationof care, (more than 50% of the total time, spent in obtaining medical information from nurses and other ancillary care providers ,explaining to the patient about labs, imaging, diagnosis and management of active complex medical conditions), review of medical record, discussion with the and Dr. Babin, review of labs and imaging is 35 minutes. Visit Charges Inpatient E&M: 33556 Subs Hosp L3 12/15/24 1416 <Electronically signed by Francesco Lui MD> Cosigner Signature (if applicable): CC: ~ Signed [facility] Work Phone: [phone] Progress note [facility] Medical Records Department [address] [place] [address] Progress Note - Hospitalist 12/15/24 0801 MR#: [id number] Acct: [id number] Name: DIANE CONNORS Rep #:[id number] : 1985 39 From: Francesco Love PCP: AGUILAR Giles Status:ADM I N Location: [place] [address] Reason for Visit Reason for Visit: Diagnoses Other disorders of bilirubin metabolism (12/14/24) Elevation of levels of liver transaminase levels (12/14/24) Objective Data Objective Data Vital Signs: Vital Signs Temp Pulse Resp BP Pulse Ox O2 Del Method 98.8 F 95 16 120/87 H 94 Room Air 12/15/24 04:42 12/15/24 04:42 12/15/24 04:42 12/15/24 04:42 12/15/24 04:42 12/15/24 04:42 Oxygen Delivery Method Room Air Weight: 205 lb 0.478 oz Body Mass Index (BMI) 29.4 Intake & Output: Intake and Output for Last 24 Hours 12/13/24 12/14/24 12/15/24 23:59 23:59 23:59 Intake Total 870 / 1170 350 / 350 Balance 870 / 1170 350 / 350 Lab / Micro Data 12/15/24 06:46 12/15/24 06:46 Labs: Laboratory Results - last 24 hr 12/14/24 11:00: WBC 14.0 H, RBC 5.29, Hgb 15.5, Hct 46.1, MCV 87.1, MCH 29.3, MCHC 33.6, RDW Std Deviation 40.8, RDW Coeff of Joanne 12.8, Plt Count 156, MPV 9.4, Immature Gran % (Auto) 0.900, Neut % (Auto) 90.5 H, Lymph % (Auto) 3.2 L, Cross % (Auto) 4.7, Eos % (Auto) 0.1, Baso % (Auto) 0.6, Absolute Neuts (auto) 12.7 H, Absolute Lymphs (auto) 0.45 L, Nucleated RBC % 0, Differential Comment COMMENT,Sodium 138, Potassium 3.7, Chloride 103, Carbon Dioxide 25.7, Anion Gap10, BUN 12, Creatinine 1.01,Estim Creat Clear Calc 110.26, Est GFR (MDRD) Non-Af 96, BUN/Creatinine Ratio 11.9, Glucose 123 H, Lactic Acid 1.1, Calcium 9.5, Total Bilirubin 4.43 H, Direct Bilirubin 3.43 H, AST 124 H, ALT 354 H, Alkaline Phosphatase 149 H, Total Protein 6.6, Albumin 3.7, Globulin 2.9, Lipase 26 12/14/24 12:43: Urine Color Yellow, Urine Clarity Clear, Urine pH 7.0, Ur Specific [place] 1.005, Urine Protein 30 H, Urine Glucose (UA) Normal, Urine Ketones Negative, Urine Occult Blood 10 H, UrineNitrite Negative, Urine Bilirubin 3 H, Urine Urobilinogen 1 H, Ur Leukocyte Esterase 25 H, Urine RBC 0- 5SEEN, Urine WBC 0-5 SEEN, Ur Squamous Epith Cells 0 SEEN, Urine Bacteria 2+, Urine Mucus 1+ 12/15/24 06:46: WBC 10.2, RBC 5.03, Hgb 14.5, Hct 42.2, MCV 83.9, MCH 28.8, MCHC34.4, RDW Std Deviation 39.7, RDW Coeff of Joanne 12.9, Plt Count 163, MPV 9.8 Micro: Microbiology 12/14/24 12:25 Blood Culture (Wb) - Anticubital Left Blood Culture - Preliminary 12/14/24 12:25 Blood Culture (Wb) - Anticubital Left Blood Culture - Preliminary 12/14/24 12:25 Mucosa - Nose SARS-CoV-2, Influenza & RSV (PCR) - Final Radiography Diagnostic Testing: Radiology Impression Abdomen/Pelvis CT 12/14/24 11:10 IMPRESSION: Mild degree of central intrahepatic biliary ductal dilatation and mild dilatation of the proximal portion of the common bile duct although it decreases in size acetabular is the head of the pancreas. Reading Location: [facility] Chest X-Ray 12/14/24 12:19 IMPRESSION: 1. Mild left basilar airspace disease favorable for atelectasis/scarring howeverthis is not definite in the absence of prior exams to confirm stability. Correlate for mild pneumonia. 2. Additional description as above. Reading Location: [facility] Physical Exam Narrative Seen and examined. Patient does not have abdominal pain but was having fever and chills and jaundice. His furthersaid in first week of October his labs showed AST ALT 33/34 his bilirubin was about 1.0 although no Documentary evidence. Currently patient is NPO. Discussed with Dr. Babin Physical exam General: Alert, Oriented x3, Cooperative HEENT: Icterus present atraumatic, PERRLA, EOMI, Normocephalic Oral: No Gingival or Mucosal Lesions/ Ulcerations Neck: Supple, No JVD, Negative Carotid Bruits Chest wall/Lungs: Air entry diminished in bilateral lung bases. No crepitation/rhonchi Cardiovascular: Regular rate, Regular Rhythm, Normal S1, Normal S2, No M/G/R Abdomen: Bowel Sounds Present, Soft, Non Tender, Non-Distended : No dysuria. No renal angle tenderness. No suprapubic tenderness. Extremities: No edema, Capillary Refill Less than 3 Seconds Skin: No rashes, No breakdown Musculoskeletal: No Tenderness to Palpation of Joints or Extremities Neurological: Cranial nerves II-XII grossly intact, DTR 2+/4. No acute focal neurological deficit. Psych/Mental Status: Flat affect. Assessment & Plan Assessment/Plan (1) Hyperbilirubinemia: (2) Elevation of levels of liver transaminase levels: PLAN: Plan Patient is a 39-year-old male who presented to [facility] ED on 12/14/2024 with fevers and chills after recent ERCP to remove the stent. Gallstone was removed on Saturday. 1. Suspected cholangitis probably aggravated by recent ERCP with choledocholithiasis: Patient is being admitted to PCU. Patient had fever on Saturday at home after ERCP on last Saturday. After admission Tmax 99.7 Fahrenheit. Currently patient on IV Zosyn. Office visit note reviewed. Patient has elevated ALT since August 2024 as per [employer]. Fluctuates between 50 to 78. Admitted with 354, improving, 227. AST also elevated. Totalbilirubin 16.7 on 09/07, improved to 4.43 and today 5.85. Last ERCP on 12/11 showed biliary tree dilated with a stone causing obstruction, complete removal was accomplished by sphincterotomy and balloon extraction. 1 stent was removed from biliary tree. I talked to the in detail after discussion with Dr. Babin. I gave the option of transfer to tertiary care of consideration of repeat ERCP with endoscopic ultrasound after cholangitis gets better with IV antibiotic. Patientalso needs lap arthur after control of the infection. Patient said s he willmake decision after talking to Dr. Babin whom I informed. 2. Overweight ? BMI 29 on admit. Encouraged lifestyle modifications. DVT prophylaxis: Lovenox CODE STATUS: Full code, verified Charges/Coding Addendum Addendum: Total time of the visit including total time spent in counseling or coordinationof care, (more than50% of the total time, spent in obtaining medical information from nurses and other ancillary care providers ,explaining to the patient about labs, imaging, diagnosis and management of active complexmedical conditions), review of medical record, discussion with the and Dr. Babin, review of labs and imaging is 35 minutes. Visit Charges Inpatient E&M: 85826 Subs Hosp L3 12/15/24 1416 Cosigner Signature (if applicable): CC: ~ Signed [facility]03-17-2025 Discharge summary Author Petar Barrera [facility] Note Date/Time December 14, 2024 3:4 8pm [facility] Medical Records Department [address] [place] [id number] Emergency Department Summary 12/14/24 MR#: [id number] Acct: [id number] Name: DIANE CONNORS Enma Rep #:[id number] : 1985 39 From: Petar Parra PCP: AGUILAR Giles Status:ADM I N Location: [place] [address] HPI History of Present Illness Chief Complaint: Fever PFSH PFSH Medical History Overweight (BMI 25.0-29.9) No pertinent past medical history Home Medications ?Medication ?Instructions ?Recorded ?Last Taken ?Type NK 09/04/24 Unknown History Allergy/AdvReac Type Severity Reaction Status Date / Time No Known Allergies Allergy Verified 12/14/24 10:16 Surgical History History of ERCP Social History Smoking Status: Never smoker alcohol intake: never EXAM Physical Exam Const Vital Signs: 12/14/24 10:14 12/14/24 11:02 12/14/24 12:23 Temperature 97.5 F L 98.2 F Temperature Source Temporal Oral Pulse Rate 90 Respiratory Rate 16 Respiratory Effort Normal Blood Pressure 143/95 H Blood Pressure Mean 111 Pulse Ox 98 Oxygen Delivery Method Room Air 12/14/24 14:00 Temperature Temperature Source Pulse Rate 88 Respiratory Rate 17 Respiratory Effort Blood Pressure 138/84 H Blood Pressure Mean 102 Pulse Ox 94 Oxygen Delivery Method Room Air MDM MDM MDM Narrative Medical decision making narrative: HISTORY OF PRESENT ILLNESS: 39-year-old male presents with fever and chills. Notes he had an ERCP to removea stent and gallstone 2 days ago. Notes fever and chills over the weekend. Denies cough. Denies urinary complaints. Denies abdominal pain. Notes symptoms are better today however want to make sure he did not have any postop complications REVIEW OF SYSTEMS: Pertinent positives: Fever/chills Pertinent negatives: Abdominal pain, cough PHYSICAL EXAM: Nursing triage notes reviewed, Vital signs reviewed Constitutional: please see mdm HENT: MMM, no scleral icterus Eyes: Pupils equal round and reactive to light, Extraocular muscles intact Neck: No stridor, no JVD, full neck ROM Lungs: Clear to auscultation, No wheezing or rales. No increased work of breathing, no conversational dyspnea, no accessory muscle use, no nasal flaring. No respiratory distress noted Heart: Regular rate and rhythm, No murmurs, No rubs and No gallops, 2+ distal pulses (radial, femoral, posterior tibial) in all extremities Abdomen: [] Rigidity, rebound or guarding, no obvious peritoneal signs, no palpable pulsatile abdominal masses, no auscultated abdominal bruit : No CVAT Extremities: No edema Neuro: No new focal neurological deficits, cranial nerves II through XII intact, 5/5 strength in all present extremities. Intact sensation to light touch in all present extremities, 2+ reflexes bilateral patella tendons. Skin: No rash or lesions noted, no jaundice MEDICAL DECISION MAKING: Chief Complaint: Fevers chills External records reviewed: Reviewed prior GI notes Factors affecting care: Choledocholithiasis Social determinants of health: none History obtained from others: the patient's Consults: Bread Pan Greaser (Dr. Babin), internal medicine (Dr. Arciniega) MDM Narrative: The patient was initially hemodynamically stable, afebrile and nontoxic- appearing. Abdominal exam benign. I considered the following differential diagnosis: Postop infection I obtained a broad lab and imaging workup to further elucidate etiology the patient's complaints. ALL IMAGES (IF OBTAINED) HAVE BEEN PERSONALLY REVIEWED AND INTERPRETED BY MYSELF. CT scan of the abdomen/pelvis shows no evidence of obvious intra-abdominal fluid collection but shows mild CBC leukocytosis suggestive of systemic inflammation, no anemia or thrombocytopenia noted BMP without evidence of significant electrolyte abnormalities, no anion gap, no acute kidney injury. LFTs with marked elevation from baseline Lipase is wnl indicating no pancreatic inflammation. Urinalysis with signs of inflammation but no definitive sign of UTI I have personally reviewed the patient's chest x-ray. Chest x-ray is remarkable for left lower lobe infiltrate The synthesis of the patient's history, physical exam, labs images suggest concern for reoccurring hepatobiliary production. Discussed with the hog cutter (Dr. Babin) recommended admission with broad-spectrum antibiotics for ERCP and possible stent placement. Saw the patient broad-spectrum antibiotics given white count, fever and concern for infectious cholestasis. Discussed with hospitalist agreed admit the patient to [facility]. The patient and/or family, caregivers express understanding. The patient and/or family, caregivers agrees with the plan. Shared decision making: I will have a discussion with the patient and or visitors regarding risk/benefits of further testing or admission. They will be made aware of of the risk/benefits inherent in this decision they will be given the opportunity to voice understanding. Total critical care time today provided was at least 0 minutes. This excludes separately billable procedures. Critical care time (if documented) is secondary to the patient having high probability of clinically significant/life threatening deterioration in the patient's condition which required my urgent intervention. Impression: 1. Fever 2. Status post ERCP 3. Leukocytosis 4. Elevated liver enzymes [facility] This note was generated with [employer] dictation software. It may contain incorrect words, spelling, and punctuation that were not noted in review of the chart prior to signing. Lab Data Labs: Laboratory Results - last 24 hr 12/14/24 12/14/24 11:00 12:43 WBC 14.0 H RBC 5.29 Hgb 15.5 Hct 46.1 MCV 87.1 MCH 29.3 MCHC 33.6 RDW Std Deviation 40.8 RDW Coeff of Joanne 12.8 Plt Count 156 MPV 9.4 Immature Gran % (Auto) 0.900 Neut % (Auto) 90.5 H Lymph % (Auto) 3.2 L Cross % (Auto) 4.7 Eos % (Auto) 0.1 Baso % (Auto) 0.6 Absolute Neuts (auto) 12.7 H Absolute Lymphs (auto) 0.45 L Nucleated RBC % 0 Differential Comment COMMENT Sodium 138 Potassium 3.7 Chloride 103 Carbon Dioxide 25.7 Anion Gap 10 BUN 12 Creatinine 1.01 Estim Creat Clear Calc 110.26 Est GFR (MDRD) Non-Af 96 BUN/Creatinine Ratio 11.9 Glucose 123 H Lactic Acid 1.1 Calcium 9.5 Total Bilirubin 4.43 H Direct Bilirubin 3.43 H AST 124 H ALT 354 H Alkaline Phosphatase 149 H Total Protein 6.6 Albumin 3.7 Globulin 2.9 Lipase 26 Urine Color Yellow Urine Clarity Clear Urine pH 7.0 Ur Specific [place] 1.005 Urine Protein 30 H Urine Glucose (UA) Normal Urine Ketones Negative Urine Occult Blood 10 H Urine Nitrite Negative Urine Bilirubin 3 H Urine Urobilinogen 1 H Ur Leukocyte Esterase 25 H Urine RBC 0-5 SEEN Urine WBC 0-5 SEEN Ur Squamous Epith Cells 0 SEEN Urine Bacteria 2+ Urine Mucus 1+ Radiography Diagnostic Testing: Clinical Impression(s) from Imaging Studies Abdomen/Pelvis CT 12/14/24 11:10 IMPRESSION: Mild degree of central intrahepatic biliary ductal dilatation and mild dilatation of the proximal portion of the common bile duct although it decreases in size acetabular is the head of the pancreas. Reading [facility] Chest X-Ray 12/14/24 12:19 IMPRESSION: 1. Mild left basilar airspace disease favorable for atelectasis/scarring however this is not definite in the absence of prior exams to confirm stability. Correlate for mild pneumonia. 2. Additional description as above. Reading Location: [facility] Discharge Plan Triage Chief Complaint: Fever ED Provider: Petar Barrera Dx/Rx/DC Orders Primary Care Provider: Shira Arias NP What to do if you have Problems For any increased pain, shortness of breath, bleeding, nausea or vomiting, chest pain, or any unexpected problems, contact your Primary Care Provider. Call [facility] ([phone]) or report to the closest Emergency Room. Call 911 if necessary. 12/14/24 1548 <Electronically signed by Petar Barrera DO> Cosigner Signature (if applicable): CC: RESIDENCE HALL DIRECTOR-C Shira Arias ~ Signed [facility] Work Phone: [phone] History and physical note Author Cruz Arciniega [facility] Note Date/Time December 14, 2024 3:1 2pm [facility] Medical Records Department [address] [place] [address] H&P Exam - Hospitalist 12/14/24 1445 MR#: [id number] Acct: [id number] Name: DIANE CONNORS Rep #:[id number] : 1985 39 From: Cruz esposito DO PCP: AGUILAR Giles Status:REG E R Location: ED HPI - General General Date of Admission: 12/14/24 Date of Service: 12/14/24 Chief Complaint: Fevers and chills HPI Narrative DIANE CONNORS, is a 39 M who presented to [facility] ED on 12/14/2024 with fevers and chills. Patient had an ERCP done with Dr. Babin on 12/11. ERCP showed a dilated biliary system with choledocholithiasis; had complete removal of stone along with biliary sphincterotomy. Also had a previous temporary stents removed. Notably had ERCP done back in August with temporary stent placed at that time. He was hospitalized here back in August with very elevated LFTs. Dr. Babin followed at that time and there was concernfor possible drug-induced liver injury caused by supplements that he was taking at home. Patient and note that he stopped all of the supplements at that time and per outside labs in October his bilirubin and LFTs had returned to about normal. Patient tolerated recent ERCP without issue. However, the next evening he had an episode of abdominal pain that lasted for about 30 minutes andresolved on its own. He then began to have fevers and chills starting yesterdaythat have continued into this morning. In the ED today he was afebrile and hemodynamically stable. Labs notable for WBC count 14, T. bili 4.43, direct bili 3.43, AST 124, ALT 354, alk phos 149. CT abdomen pelvis showed a mild degree of central hepatobiliary ductal dilation and mild dilatation of the proximal portion of the common bile duct. Notably no evidence of pancreatitis and lipase normal. ED physician discussed with Dr. Babin who recommended admission for trending LFTs, possible repeat ERCP and IV antibiotics. Hospitalist was then contacted for admission. I saw the patient at bedside in the ED, was present. Patient was sitting back comfortably in bed, conversing normally, in no acute distress. He denied any abdominal pain or discomfort currently. He denied any fevers or chills since arriving to the ED. States he has not eaten or drank much over the past few days but has had no episodes of vomiting. Denies any other acute concerns at this time. [facility] Medical History Overweight (BMI 25.0-29.9) No pertinent past medical history Home Medications ?Medication ?Instructions ?Recorded ?Last Taken ?Type NK 09/04/24 Unknown History Allergy/AdvReac Type Severity Reaction Status Date / Time No Known Allergies Allergy Verified 12/14/24 10:16 Surgical History History of ERCP Social History Smoking Status: Never smoker alcohol intake: never ROS Constitutional Constitutional: Reports chills and fever(s); Denies fatigue or weakness Eyes Eyes: Denies change in vision Cardiovascular Cardiovascular: Denies chest pain Respiratory/Chest Respiratory/Chest: Denies cough, productive cough or shortness of breath at rest Gastrointestinal Gastrointestinal: Reports nausea; Denies abdominal pain, constipation, diarrhea or vomiting Vital Signs Vital Signs Vital Signs: 12/14/24 10:14 12/14/24 11:02 12/14/24 12:23 Temperature 97.5 F L 98.2 F Temperature Source Temporal Oral Pulse Rate 90 Respiratory Rate 16 Respiratory Effort Normal Blood Pressure 143/95 H Blood Pressure Mean 111 Pulse Ox 98 Oxygen Delivery Method Room Air 12/14/24 14:00 Temperature Temperature Source Pulse Rate 88 Respiratory Rate 17 Respiratory Effort Blood Pressure 138/84 H Blood Pressure Mean 102 Pulse Ox 94 Oxygen Delivery Method Room Air Weight Weight: 92.986 kg Body Mass Index (BMI) 29.4 Physical Exam Const alert, oriented x3, no apparent distress and average body habitus Constitutional Narrative: Pleasant younger male, sitting back comfortably in bed, conversing normally, in no acute distress. General Appearance: cooperative and comfortable HEENT normocephalic, head/scalp atraumatic, hearing grossly normal bilaterally, nasal mucous membranes and turbinates normal and moist oral mucous membranes Eyes PERRL, EOMs intact bilaterally and conjunctivae normal Neck full ROM Chest inspection of chest normal Resp normal respiratory effort, normal air movement, no use of accessory muscles and clear to auscultation bilaterally Cardio regular rate, regular rhythm, no murmurs and peripheral pulses 2+ throughout GI normal to inspection, nondistended, normoactive bowel sounds, soft to palpation,non-tender and non-distended Back/Spine normal ROM Extremity normal to inspection, full ROM and no pedal edema Skin no rashes or lesions noted Neuro moves all extremities and no focal motor deficits Speech: speech normal Motor Exam: strength 5/5 throughout Psych mental status grossly normal Results Lab / Micro Data 12/14/24 11:00 12/14/24 11:00 Labs: Laboratory Results - last 24 hr 12/14/24 11:00: WBC 14.0 H, RBC 5.29, Hgb 15.5, Hct 46.1, MCV 87.1, MCH 29.3, MCHC 33.6, RDW Std Deviation 40.8, RDW Coeff of Joanne 12.8, Plt Count 156, MPV 9.4, Immature Gran % (Auto) 0.900, Neut % (Auto) 90.5 H, Lymph % (Auto) 3.2 L, Cross % (Auto) 4.7, Eos % (Auto) 0.1, Baso % (Auto) 0.6, Absolute Neuts (auto) 12.7 H, Absolute Lymphs (auto) 0.45 L, Nucleated RBC % 0, Differential Comment COMMENT, Sodium 138, Potassium 3.7, Chloride 103, Carbon Dioxide 25.7, Anion Gap10, BUN 12, Creatinine 1.01, Estim Creat Clear Calc 110.26, Est GFR (MDRD) Non-Af 96, BUN/Creatinine Ratio 11.9, Glucose 123 H, Lactic Acid 1.1, Calcium 9.5, Total Bilirubin 4.43 H, Direct Bilirubin 3.43 H, AST 124 H, ALT 354 H, Alkaline Phosphatase 149 H, Total Protein 6.6, Albumin 3.7, Globulin 2.9, Lipase 26 12/14/24 12:43: Urine Color Yellow, Urine Clarity Clear, Urine pH 7.0, Ur Specific [place] 1.005, Urine Protein 30 H, Urine Glucose (UA) Normal, Urine Ketones Negative, Urine Occult Blood 10 H, Urine Nitrite Negative, Urine Bilirubin 3 H, Urine Urobilinogen 1 H, Ur Leukocyte Esterase 25 H, Urine RBC 0-5SEEN, Urine WBC 0-5 SEEN, Ur Squamous Epith Cells 0 SEEN, Urine Bacteria 2+, Urine Mucus 1+ Micro: Microbiology 12/14/24 12:25 Mucosa - Nose SARS-CoV-2, Influenza & RSV (PCR) - Final Imaging Radiology Impression Abdomen/Pelvis CT 12/14/24 11:10 IMPRESSION: Mild degree of central intrahepatic biliary ductal dilatation and mild dilatation of the proximal portion of the common bile duct although it decreases in size acetabular is the head of the pancreas. Reading Location: [facility] Chest X-Ray 12/14/24 12:19 IMPRESSION: 1. Mild left basilar airspace disease favorable for atelectasis/scarring howeverthis is not definite in the absence of prior exams to confirm stability. Correlate for mild pneumonia. 2. Additional description as above. Reading Location: [id number] Assessment & Plan Assessment/Plan (1) Hyperbilirubinemia: (2) Elevation of levels of liver transaminase levels: PLAN: Plan Patient is a 39-year-old male who presented to [facility] ED on 12/14/2024 with fevers and chills after recent ERCP. 1. 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 Admit under inpatient status to [facility]. GI consulted. See HPI for further details on recent GI history. In short, had ERCP done on 12/11 with choledocholithiasis removed with biliary tree swept, as well as removal of previously placed temporary stent. LFTs on 12/14 elevated and per family they had returned to about normal in October on labs from outside hospital. Cannot rule out infection, will treat with IV Zosyn for now. Lipase normal and no evidence of pancreatitis on CT, low concern for post ERCP pancreatitis. Monitordaily LFTs. N.p.o. at midnight for possible repeat ERCP tomorrow. 2. Overweight ? BMI 29 on admit. Encouraged lifestyle modifications. DVT prophylaxis: Lovenox CODE STATUS: Full code, verified Expected disposition: Home, 2 to 3 days Total clinical time spent by myself addressing the patient's medical issues, reviewing all the data, and collaborating with patient's care team: 55 minutes. Charges/Coding Visit Charges Inpatient E&M: 65587 Init Hosp L2 12/14/24 1512 <Electronically signed by Cruz Arciniega DO> Cosigner Signature (if applicable): CC: AGUILAR Arias; Dr. Cruz Arciniega DO~ Signed [facility] Work Phone: [phone]) 277-212803-17-2025 Discharge summary [facility] Medical Records Department [address] [place] [address] Emergency Department Summary 12/14/24 MR#: [id number] Acct: [id number] Name: DOROTHY CONNORSKelly Norwood Rep #:[id number] : 1985 39 From: Petar Parra PCP: AGUILAR Giles Status:ADM I N Location: [place] [address] HPI History of Present Illness Chief Complaint: Fever PFSH PFSH Medical History Overweight (BMI 25.0-29.9) No pertinent past medical history Home Medications ?Medication ?Instructions ?Recorded ?Last Taken ?Type NK 09/04/24 Unknown History Allergy/AdvReac Type Severity Reaction Status Date / Time No Known Allergies Allergy Verified 12/14/24 10:16 Surgical History History of ERCP Social History Smoking Status: Never smoker alcohol intake: never EXAM Physical Exam Const Vital Signs: 12/14/24 10:14 12/14/24 11:02 12/14/24 12:23 Temperature 97.5 F L 98.2 F Temperature Source Temporal Oral Pulse Rate 90 Respiratory Rate 16 Respiratory Effort Normal Blood Pressure 143/95 H Blood Pressure Mean 111 Pulse Ox 98 Oxygen Delivery Method Room Air 12/14/24 14:00 Temperature Temperature Source Pulse Rate 88 Respiratory Rate 17 Respiratory Effort Blood Pressure 138/84 H Blood Pressure Mean 102 Pulse Ox 94 Oxygen Delivery Method Room Air MDM MDM MDM Narrative Medical decision making narrative: HISTORY OF PRESENT ILLNESS: 39-year-old male presents with fever and chills. Notes he had an ERCP to removea stent and gallstone 2 days ago. Notes fever and chills over the weekend. Denies cough. Denies urinary complaints. Denies abdominal pain. Notes symptoms are better today however want to make sure he did not have any postop complications REVIEW OF SYSTEMS: Pertinent positives: Fever/chills Pertinent negatives: Abdominal pain, cough PHYSICAL EXAM: Nursing triage notes reviewed, Vital signs reviewed Constitutional: please see mdm HENT: MMM, no scleral icterus Eyes: Pupils equal round and reactive to light, Extraocular muscles intact Neck: No stridor, no JVD, full neck ROM Lungs: Clear to auscultation, No wheezing or rales. No increased work of breathing, no conversational dyspnea, no accessory muscle use, no nasal flaring. No respiratory distress noted Heart: Regular rate and rhythm, No murmurs, No rubs and No gallops, 2+ distal pulses (radial, femoral, posterior tibial) in all extremities Abdomen: [] Rigidity, rebound or guarding, no obvious peritoneal signs, no palpable pulsatile abdominal masses, no auscultated abdominal bruit : No CVAT Extremities: No edema Neuro: No new focal neurological deficits, cranial nerves II through XII intact, 5/5 strength in all present extremities. Intact sensation to light touch in all present extremities, 2+ reflexes bilateral patella tendons. Skin: No rash or lesions noted, no jaundice MEDICAL DECISION MAKING: Chief Complaint: Fevers chills External records reviewed: Reviewed prior GI notes Factors affecting care: Choledocholithiasis Social determinants of health: none History obtained from others: the patient's Consults: Bread Pan Greaser (Dr. Babin), internal medicine (Dr. Arciniega) MDM Narrative: The patient was initially hemodynamically stable, afebrile and nontoxic- appearing. Abdominal exam benign. I considered the following differential diagnosis: Postop infection I obtained a broad lab and imaging workup to further elucidate etiology the patient's complaints. ALL IMAGES (IF OBTAINED) HAVE BEEN PERSONALLY REVIEWED AND INTERPRETED BY MYSELF. CT scan of the abdomen/pelvis shows no evidence of obvious intra-abdominal fluid collection but shows mild CBC leukocytosis suggestive of systemic inflammation, no anemia or thrombocytopenia noted BMP without evidence of significant electrolyte abnormalities, no anion gap, no acute kidney injury. LFTs with marked elevation from baseline Lipase is wnl indicating no pancreatic inflammation. Urinalysis with signs of inflammation but no definitive sign of UTI I have personally reviewed the patient's chest x-ray. Chest x-ray is remarkable for left lower lobeinfiltrate The synthesis of the patient's history, physical exam, labs images suggest concern for reoccurring hepatobiliary production. Discussed with the hog cutter (Dr. Babin) recommended admission with broad-spectrum antibiotics for ERCP and possible stent placement. Saw the patient broad-spectrum antibiotics given white count, fever and concern for infectious cholestasis. Discussed with hospitalist agreed admit the patient to [facility]. The patient and/or family, caregivers express understanding. The patient and/or family, caregivers agrees with the plan. Shared decision making: I will have a discussion with the patient and or visitors regarding risk/benefits of further testing or admission. They will be made aware of of the risk/benefits inherent in this decision they will be given the opportunity to voice understanding. Total critical care time today provided was at least 0 minutes. This excludes separately billable procedures. Critical care time (if documented) is secondary to the patient having high probability ofclinically significant/life threatening deterioration in the patient's condition which required my urgent intervention. Impression: 1. Fever 2. Status post ERCP 3. Leukocytosis 4. Elevated liver enzymes Dispo: Admit to [facility] discharge This note was generated with Damb[employer] dictation software. It may contain incorrect words, spelling, and punctuation that were not noted in review of the chart prior to signing. Lab Data Labs: Laboratory Results - last 24 hr 12/14/24 12/14/24 11:00 12:43 WBC 14.0 H RBC 5.29 Hgb 15.5 Hct 46.1 MCV 87.1 MCH 29.3 MCHC 33.6 RDW Std Deviation 40.8 RDW Coeff of Joanne 12.8 Plt Count 156 MPV 9.4 Immature Gran % (Auto) 0.900 Neut % (Auto) 90.5 H Lymph % (Auto) 3.2 L Cross % (Auto) 4.7 Eos % (Auto) 0.1 Baso % (Auto) 0.6 Absolute Neuts (auto) 12.7 H Absolute Lymphs (auto) 0.45 L Nucleated RBC % 0 Differential Comment COMMENT Sodium 138 Potassium 3.7 Chloride 103 Carbon Dioxide 25.7 Anion Gap 10 BUN 12 Creatinine 1.01 Estim Creat Clear Calc 110.26 Est GFR (MDRD) Non-Af 96 BUN/Creatinine Ratio 11.9 Glucose 123 H Lactic Acid 1.1 Calcium 9.5 Total Bilirubin 4.43 H Direct Bilirubin 3.43 H AST 124 H ALT 354 H Alkaline Phosphatase 149 H Total Protein 6.6 Albumin 3.7 Globulin 2.9 Lipase 26 Urine Color Yellow Urine Clarity Clear Urine pH 7.0 Ur Specific [place] 1.005 Urine Protein 30 H Urine Glucose (UA) Normal Urine Ketones Negative Urine Occult Blood 10 H Urine Nitrite Negative Urine Bilirubin 3 H Urine Urobilinogen 1 H Ur Leukocyte Esterase 25 H Urine RBC 0-5 SEEN Urine WBC 0-5 SEEN Ur Squamous Epith Cells 0 SEEN Urine Bacteria 2+ Urine Mucus 1+ Radiography Diagnostic Testing: Clinical Impression(s) from Imaging Studies Abdomen/Pelvis CT 12/14/24 11:10 IMPRESSION: Mild degree of central intrahepatic biliary ductal dilatation and mild dilatation of the proximal portion of the common bile duct although it decreases in size acetabular is the head of the pancreas. Reading Location: [facility] Chest X-Ray 12/14/24 12:19 IMPRESSION: 1. Mild left basilar airspace disease favorable for atelectasis/scarring however this is not definite in the absence of prior exams to confirm stability. Correlate for mild pneumonia. 2. Additional description as above. Reading Location: [facility] Discharge Plan Triage Chief Complaint: Fever ED Provider: Petar Barrera Dx/Rx/DC Orders Primary Care Provider: Shira Arias NP What to do if you have Problems For any increased pain, shortness of breath, bleeding, nausea or vomiting, chest pain, or any unexpected problems, contact your Primary Care Provider. Call [facility] ([phone]) or report to the closest Emergency Room. Call 911 if necessary. 12/14/24 4473 Cosigner Signature (if applicable): CC: RESIDENCE HALL DIRECTOR-C Shira Arias ~ Signed [facility]03-17-2025 History and physical note [facility] Medical Records Department [address] [place] [address] H&P Exam - Hospitalist 12/14/24 1445 MR#: [id number] Acct: [id number] Name: DIANE CONNORS Rep #:[id number] : 1985 39 From: Cruz esposito DO PCP: AGUILAR Giles Status:REG E R Location: ED HPI - General General Date of Admission: 12/14/24 Date of Service: 12/14/24 Chief Complaint: Fevers and chills HPI Narrative DIANE CONNORS, is a 39 M who presented to [facility] ED on 12/14/2024 with fevers and chills. Patient had an ERCP done with Dr. Babin on 12/11. ERCP showed a dilated biliary system with choledocholithiasis; had complete removal of stone along with biliary sphincterotomy. Also had a previous temporary stents removed. Notably had ERCP done back in August with temporary stent placedat that time. He was hospitalized here back in August with very elevated LFTs. Dr. Babin followed at that time and there was concernfor possible drug-induced liver injury caused by supplements that he was taking at home. Patient and note that he stopped all of the supplements at that time and per outside labs in October his bilirubin and LFTs had returned to about normal. Patient tolerated recent ERCP without issue. However, the next evening he had an episode of abdominal pain that lasted for about 30 minutes andresolved on its own. He then began to have fevers and chills starting yesterdaythat have continued into this morning. In the ED today he was afebrile and hemodynamically stable. Labs notable for WBC count 14, T. bili 4.43, direct bili 3.43, AST 124, ALT 354, alk phos 149.CT abdomen pelvis showed a mild degree of central hepatobiliary ductal dilation and mild dilatationof the proximal portion of the common bile duct. Notably no evidence of pancreatitis and lipase normal. ED physician discussed with Dr. Babin who recommended admission for trending LFTs, possible repeat ERCP and IV antibiotics. Hospitalist was then contacted for admission. I saw the patient at bedside in the ED, was present. Patient was sitting back comfortably in bed, conversing normally, in no acute distress. He denied any abdominal pain or discomfort currently.He denied any fevers or chills since arriving to the ED. States he has not eaten or drank much overthe past few days but has had no episodes of vomiting. Denies any other acute concerns at this time. [facility] Medical History Overweight (BMI 25.0-29.9) No pertinent past medical history Home Medications ?Medication ?Instructions ?Recorded ?Last Taken ?Type NK 09/04/24 Unknown History Allergy/AdvReac Type Severity Reaction Status Date / Time No Known Allergies Allergy Verified 12/14/24 10:16 Surgical History History of ERCP Social History Smoking Status: Never smoker alcohol intake: never ROS Constitutional Constitutional: Reports chills and fever(s); Denies fatigue or weakness Eyes Eyes: Denies change in vision Cardiovascular Cardiovascular: Denies chest pain Respiratory/Chest Respiratory/Chest: Denies cough, productive cough or shortness of breath at rest Gastrointestinal Gastrointestinal: Reports nausea; Denies abdominal pain, constipation, diarrhea or vomiting Vital Signs Vital Signs Vital Signs: 12/14/24 10:14 12/14/24 11:02 12/14/24 12:23 Temperature 97.5 F L 98.2 F Temperature Source Temporal Oral Pulse Rate 90 Respiratory Rate 16 Respiratory Effort Normal Blood Pressure 143/95 H Blood Pressure Mean 111 Pulse Ox 98 Oxygen Delivery Method Room Air 12/14/24 14:00 Temperature Temperature Source Pulse Rate 88 Respiratory Rate 17 Respiratory Effort Blood Pressure 138/84 H Blood Pressure Mean 102 Pulse Ox 94 Oxygen Delivery Method Room Air Weight Weight: 92.986 kg Body Mass Index (BMI) 29.4 Physical Exam Const alert, oriented x3, no apparent distress and average body habitus Constitutional Narrative: Pleasant younger male, sitting back comfortably in bed, conversing normally, in no acute distress. General Appearance: cooperative and comfortable HEENT normocephalic, head/scalp atraumatic, hearing grossly normal bilaterally, nasal mucous membranes and turbinates normal and moist oral mucous membranes Eyes PERRL, EOMs intact bilaterally and conjunctivae normal Neck full ROM Chest inspection of chest normal Resp normal respiratory effort, normal air movement, no use of accessory muscles and clear to auscultation bilaterally Cardio regular rate, regular rhythm, no murmurs and peripheral pulses 2+ throughout GI normal to inspection, nondistended, normoactive bowel sounds, soft to palpation,non-tender and non-distended Back/Spine normal ROM Extremity normal to inspection, full ROM and no pedal edema Skin no rashes or lesions noted Neuro moves all extremities and no focal motor deficits Speech: speech normal Motor Exam: strength 5/5 throughout Psych mental status grossly normal Results Lab / Micro Data 12/14/24 11:00 12/14/24 11:00 Labs: Laboratory Results - last 24 hr 12/14/24 11:00: WBC 14.0 H, RBC 5.29, Hgb 15.5, Hct 46.1, MCV 87.1, MCH 29.3, MCHC 33.6, RDW Std Deviation 40.8, RDW Coeff of Joanne 12.8, Plt Count 156, MPV 9.4, Immature Gran % (Auto) 0.900, Neut % (Auto) 90.5 H, Lymph % (Auto) 3.2 L, Cross % (Auto) 4.7, Eos % (Auto) 0.1, Baso % (Auto) 0.6, Absolute Neuts (auto) 12.7 H, Absolute Lymphs (auto) 0.45 L, Nucleated RBC % 0, Differential Comment COMMENT,Sodium 138, Potassium 3.7, Chloride 103, Carbon Dioxide 25.7, Anion Gap10, BUN 12, Creatinine 1.01,Estim Creat Clear Calc 110.26, Est GFR (MDRD) Non-Af 96, BUN/Creatinine Ratio 11.9, Glucose 123 H, Lactic Acid 1.1, Calcium 9.5, Total Bilirubin 4.43 H, Direct Bilirubin 3.43 H, AST 124 H, ALT 354 H, Alkaline Phosphatase 149 H, Total Protein 6.6, Albumin 3.7, Globulin 2.9, Lipase 26 12/14/24 12:43: Urine Color Yellow, Urine Clarity Clear, Urine pH 7.0, Ur Specific [place] 1.005, Urine Protein 30 H, Urine Glucose (UA) Normal, Urine Ketones Negative, Urine Occult Blood 10 H, UrineNitrite Negative, Urine Bilirubin 3 H, Urine Urobilinogen 1 H, Ur Leukocyte Esterase 25 H, Urine RBC 0- 5SEEN, Urine WBC 0-5 SEEN, Ur Squamous Epith Cells 0 SEEN, Urine Bacteria 2+, Urine Mucus 1+ Micro: Microbiology 12/14/24 12:25 Mucosa - Nose SARS-CoV-2, Influenza & RSV (PCR) - Final Imaging Radiology Impression Abdomen/Pelvis CT 12/14/24 11:10 IMPRESSION: Mild degree of central intrahepatic biliary ductal dilatation and mild dilatation of the proximal portion of the common bile duct although it decreases in size acetabular is the head of the pancreas. Reading Location: [facility] Chest X-Ray 12/14/24 12:19 IMPRESSION: 1. Mild left basilar airspace disease favorable for atelectasis/scarring howeverthis is not definite in the absence of prior exams to confirm stability. Correlate for mild pneumonia. 2. Additional description as above. Reading Location: [facility] Assessment & Plan Assessment/Plan (1) Hyperbilirubinemia: (2) Elevation of levels of liver transaminase levels: PLAN: Plan Patient is a 39-year-old male who presented to [facility] ED on 12/14/2024 with fevers and chills after recent ERCP. 1. 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 Admit under inpatient status to [facility]. GI consulted. See HPI for further details on recent GI history. In short, had ERCP done on 12/11 with choledocholithiasis removed with biliary tree swept, aswell as removal of previously placed temporary stent. LFTs on 12/14 elevated and per family they had returned to about normal in October on labs from outside hospital. Cannot rule out infection, willtreat with IV Zosyn for now. Lipase normal and no evidence of pancreatitis on CT, low concern for post ERCP pancreatitis. Monitordaily LFTs. N.p.o. at midnight for possible repeat ERCP tomorrow. 2. Overweight ? BMI 29 on admit. Encouraged lifestyle modifications. DVT prophylaxis: Lovenox CODE STATUS: Full code, verified Expected disposition: Home, 2 to 3 days Total clinical time spent by myself addressing the patient's medical issues, reviewing all the data, and collaborating with patient's care team: 55 minutes. Charges/Coding Visit Charges Inpatient E&M: 65945 Init Hosp L2 12/14/24 1512 Cosigner Signature (if applicable): CC: AGUILAR Arias; Dr. Cruz Arciniega DO~ Signed [facility]03-17-2025 Discharge summary Author Petar Barrera [facility] Note Date/Time December 14, 2024 3:4 8pm [facility] Medical Records Department [address] [place] [address] Emergency Department Summary 12/14/24 MR#: [id number] Acct: [id number] Name: DIANE CONNORS Rep #:[id number] : 1985 39 From: Petar Parra PCP: AGUILAR Giles Status:ADM I N Location: [address] History of Present Illness Chief Complaint: Fever PFSH PFSH Medical History Overweight (BMI 25.0-29.9) No pertinent past medical history Home Medications ?Medication ?Instructions ?Recorded ?Last Taken ?Type NK 09/04/24 Unknown History Allergy/AdvReac Type Severity Reaction Status Date / Time No Known Allergies Allergy Verified 12/14/24 10:16 Surgical History History of ERCP Social History Smoking Status: Never smoker alcohol intake: never EXAM Physical Exam Const Vital Signs: 12/14/24 10:14 12/14/24 11:02 12/14/24 12:23 Temperature 97.5 F L 98.2 F Temperature Source Temporal Oral Pulse Rate 90 Respiratory Rate 16 Respiratory Effort Normal Blood Pressure 143/95 H Blood Pressure Mean 111 Pulse Ox 98 Oxygen Delivery Method Room Air 12/14/24 14:00 Temperature Temperature Source Pulse Rate 88 Respiratory Rate 17 Respiratory Effort Blood Pressure 138/84 H Blood Pressure Mean 102 Pulse Ox 94 Oxygen Delivery Method Room Air MDM MDM MDM Narrative Medical decision making narrative: HISTORY OF PRESENT ILLNESS: 39-year-old male presents with fever and chills. Notes he had an ERCP to removea stent and gallstone 2 days ago. Notes fever and chills over the weekend. Denies cough. Denies urinary complaints. Denies abdominal pain. Notes symptoms are better today however want to make sure he did not have any postop complications REVIEW OF SYSTEMS: Pertinent positives: Fever/chills Pertinent negatives: Abdominal pain, cough PHYSICAL EXAM: Nursing triage notes reviewed, Vital signs reviewed Constitutional: please see mdm HENT: MMM, no scleral icterus Eyes: Pupils equal round and reactive to light, Extraocular muscles intact Neck: No stridor, no JVD, full neck ROM Lungs: Clear to auscultation, No wheezing or rales. No increased work of breathing, no conversational dyspnea, no accessory muscle use, no nasal flaring. No respiratory distress noted Heart: Regular rate and rhythm, No murmurs, No rubs and No gallops, 2+ distal pulses (radial, femoral, posterior tibial) in all extremities Abdomen: [] Rigidity, rebound or guarding, no obvious peritoneal signs, no palpable pulsatile abdominal masses, no auscultated abdominal bruit : No CVAT Extremities: No edema Neuro: No new focal neurological deficits, cranial nerves II through XII intact, 5/5 strength in all present extremities. Intact sensation to light touch in all present extremities, 2+ reflexes bilateral patella tendons. Skin: No rash or lesions noted, no jaundice MEDICAL DECISION MAKING: Chief Complaint: Fevers chills External records reviewed: Reviewed prior GI notes Factors affecting care: Choledocholithiasis Social determinants of health: none History obtained from others: the patient's Consults: [employer] (Dr. Babin), internal medicine (Dr. Arciniega) MDM Narrative: The patient was initially hemodynamically stable, afebrile and nontoxic- appearing. Abdominal exam benign. I considered the following differential diagnosis: Postop infection I obtained a broad lab and imaging workup to further elucidate etiology the patient's complaints. ALL IMAGES (IF OBTAINED) HAVE BEEN PERSONALLY REVIEWED AND INTERPRETED BY MYSELF. CT scan of the abdomen/pelvis shows no evidence of obvious intra-abdominal fluid collection but shows mild CBC leukocytosis suggestive of systemic inflammation, no anemia or thrombocytopenia noted BMP without evidence of significant electrolyte abnormalities, no anion gap, no acute kidney injury. LFTs with marked elevation from baseline Lipase is wnl indicating no pancreatic inflammation. Urinalysis with signs of inflammation but no definitive sign of UTI I have personally reviewed the patient's chest x-ray. Chest x-ray is remarkable for left lower lobe infiltrate The synthesis of the patient's history, physical exam, labs images suggest concern for reoccurring hepatobiliary production. Discussed with the hog cutter (Dr. Babin) recommended admission with broad-spectrum antibiotics for ERCP and possible stent placement. Saw the patient broad-spectrum antibiotics given white count, fever and concern for infectious cholestasis. Discussed with hospitalist agreed admit the patient to [facility]. The patient and/or family, caregivers express understanding. The patient and/or family, caregivers agrees with the plan. Shared decision making: I will have a discussion with the patient and or visitors regarding risk/benefits of further testing or admission. They will be made aware of of the risk/benefits inherent in this decision they will be given the opportunity to voice understanding. Total critical care time today provided was at least 0 minutes. This excludes separately billable procedures. Critical care time (if documented) is secondary to the patient having high probability of clinically significant/life threatening deterioration in the patient's condition which required my urgent intervention. Impression: 1. Fever 2. Status post ERCP 3. Leukocytosis 4. Elevated liver enzymes [facility] This note was generated with Damballa dictation software. It may contain incorrect words, spelling, and punctuation that were not noted in review of the chart prior to signing. Lab Data Labs: Laboratory Results - last 24 hr 12/14/24 12/14/24 11:00 12:43 WBC 14.0 H RBC 5.29 Hgb 15.5 Hct 46.1 MCV 87.1 MCH 29.3 MCHC 33.6 RDW Std Deviation 40.8 RDW Coeff of Joanne 12.8 Plt Count 156 MPV 9.4 Immature Gran % (Auto) 0.900 Neut % (Auto) 90.5 H Lymph % (Auto) 3.2 L Cross % (Auto) 4.7 Eos % (Auto) 0.1 Baso % (Auto) 0.6 Absolute Neuts (auto) 12.7 H Absolute Lymphs (auto) 0.45 L Nucleated RBC % 0 Differential Comment COMMENT Sodium 138 Potassium 3.7 Chloride 103 Carbon Dioxide 25.7 Anion Gap 10 BUN 12 Creatinine 1.01 Estim Creat Clear Calc 110.26 Est GFR (MDRD) Non-Af 96 BUN/Creatinine Ratio 11.9 Glucose 123 H Lactic Acid 1.1 Calcium 9.5 Total Bilirubin 4.43 H Direct Bilirubin 3.43 H AST 124 H ALT 354 H Alkaline Phosphatase 149 H Total Protein 6.6 Albumin 3.7 Globulin 2.9 Lipase 26 Urine Color Yellow Urine Clarity Clear Urine pH 7.0 Ur Specific [place] 1.005 Urine Protein 30 H Urine Glucose (UA) Normal Urine Ketones Negative Urine Occult Blood 10 H Urine Nitrite Negative Urine Bilirubin 3 H Urine Urobilinogen 1 H Ur Leukocyte Esterase 25 H Urine RBC 0-5 SEEN Urine WBC 0-5 SEEN Ur Squamous Epith Cells 0 SEEN Urine Bacteria 2+ Urine Mucus 1+ Radiography Diagnostic Testing: Clinical Impression(s) from Imaging Studies Abdomen/Pelvis CT 12/14/24 11:10 IMPRESSION: Mild degree of central intrahepatic biliary ductal dilatation and mild dilatation of the proximal portion of the common bile duct although it decreases in size acetabular is the head of the pancreas. Reading Location: [facility] Chest X-Ray 12/14/24 12:19 IMPRESSION: 1. Mild left basilar airspace disease favorable for atelectasis/scarring however this is not definite in the absence of prior exams to confirm stability. Correlate for mild pneumonia. 2. Additional description as above. Reading Location: [facility] Discharge Plan Triage Chief Complaint: Fever ED Provider: Petar Barrera Dx/Rx/DC Orders Primary Care Provider: Shira Arias NP What to do if you have Problems For any increased pain, shortness of breath, bleeding, nausea or vomiting, chest pain, or any unexpected problems, contact your Primary Care Provider. Call [facility] ([phone]) or report to the closest Emergency Room. Call 911 if necessary. 12/14/24 1548 <Electronically signed by Petar Barrera DO> Cosigner Signature (if applicable): CC: RESIDENCE HALL DIRECTOR-C Shira Arias ~ Signed [facility] Work Phone: 1(242) 379-535103-17-2025 Radiology Diagnostic study note [facility] Imaging Services [address] [place] [address] Chest PA and Lateral MR#: [id number] Acct: [id number] Name: DIANE CONNORS Rep #: [id number] : 1985 M 39 From: Lily Holt MD PCP: AGUILAR Giles Status: REG E R Study:Chest PA and Lateral Date of Exam: 12/14/24 Exam# [id number] Ordering Dr: Chela Barrera DO PROCEDURE: CHEST PA AND LATERAL (RADCXR), 12/14/2024 REASON FOR EXAM: FEVER TECHNIQUE: PA and lateral views of the chest were obtained. COMPARISON: None FINDINGS: Heart: Unremarkable. Mediastinum: Unremarkable. Lungs/pleura: Mild streaky/linear left basilar airspace disease. No effusion orvisible pneumothorax. Bones: Unremarkable. Lines and support devices: None. RAD/Chest PA and Lateral IMPRESSION: 1. Mild left basilar airspace disease favorable for atelectasis/scarring howeverthis is not definite in the absence of prior exams to confirm stability. Correlate for mild pneumonia. 2. Additional description as above. Reading Location: [id number] CC: AGUILAR Arias; Dr. Petar Barrera DO ~ Welder Apprentice: Signed [facility]03-17-2025 Radiology Diagnostic study note [facility] Imaging Services [address] [place], [place] [id number] Abdomen/Pelvis W IV Cont ONLY MR#: [id number] Acct: [id number] Name: DIANE CONNORS Rep #: [id number] : 1985 M 39 From: Franco Soto MD PCP: AGUILAR Giles Status: PRE E R Study:Abdomen/Pelvis W IV Cont ONLY Date of E xam: 12/14/24 Exam# [id number] Ordering Dr: Chela Barrera DO PROCEDURE: ABDOMEN/PELVIS W IV CONT ONLY 12/14/2024 REASON FOR EXAM: FEVER, STATUS POST RECENT ERCP, R/O POSTOP INFXN TECHNIQUE: Abdomen CT without and with intravenous contrast. Coronal and Sagittal reconstruction series were provided. PATIENT PREPARATION: Per protocol ORAL CONTRAST TYPE: None. CONTRAST: Isovue-300 VOLUME: 100mL Gauge IV One or more dose reduction techniques were used (e.g., Automated exposure control, adjustment of the mA and/or kV according to patient size, use of iterative reconstruction technique. RADIATION DOSE SUMMARY: CTDlvol: 13.3 mGy DLP: 787 mGycm COMPARISON: None. COMPARISON: None. FINDINGS: Lung bases: Mild degree of increased markings at the lung bases suggestive of bibasilar atelectasis. Liver: Central intrahepatic biliary ductal dilatation. Mild dilatation of the proximal common bile duct. It tapers to normal size in the head of the pancreas. Gallbladder: Questionable tiny gallstones. Spleen: Normal size. Pancreas: Normal size without evidence of mass surrounding inflammation or ductal dilation. Adrenals: Unremarkable Kidneys: Unremarkable Bladder: Unremarkable. The prostate is not enlarged. Central prostatic calcification is seen. Small umbilical hernia containing fat. Small left inguinal hernia containing fat. Bowel: Colonic diverticulosis without diverticulitis. Appendix: The appendix is not identified. There is no inflammatory process identified in the right lower quadrant to suggest appendicitis. Lymph nodes: Unremarkable Vasculature: Unremarkable Peritoneum / Retroperitoneum: Bones: Disc space narrowing at the L5-S1 level. CT/Abdomen/Pelvis W IV Cont ONLY IMPRESSION: Mild degree of central intrahepatic biliary ductal dilatation and mild dilatation of the proximal portion of the common bile duct although it decreases in size acetabular is the head of the pancreas. Reading Location: [facility] CC: RESIDENCE HALL DIRECTORGarrison Arias; Dr. Petar Barrera, DO ~ Welder Apprentice: Signed [facility]03-14-2025 Consult note [facility] Medical Records Department [address] [place] [address] Anesthesia Postop Eval II 12/11/24 1520 MR#: [id number] Acct: [id number] Name: DIANE CONNORS Rep #:[id number] : 1985 39 From: Rafael Hooper MD PCP: AUGILAR Giles Status:REG S DC Y Race: C Location: [place] [address] Anesthesia Postop Eval I Sum Postop Eval Completion status Anesthesia document: Postop Eval 1 completed: Yes Anesthesia Postop Eval I Summary Anesthesia Postop Eval I Summary: Anesthesia Postop Eval I: Assessment Summary Airway patent Yes 12/11/24 14:27 [email or web address] Spontaneous unlabored Yes 12/11/24 14:27 [email or web address] respirations Mental status Asleep 12/11/24 14:27 [email or web address] nausea No 12/11/24 14:27 [email or web address] Vomiting No 12/11/24 14:27 [email or web address] Anesthesia Postop Eval I: Fluid Summary Crystalloid volume administer 700 12/11/24 14:27 [email or web address] (ml) Colloids volume administered ( ml) Blood Product volume administered (ml) Total IV fluid infused 700 12/11/24 14:27 [email or web address] Anesthesia Postop Eval I: Summary Notes Anesthesia Complication No 12/11/24 14:27 [email or web address] Anesthesia Complication Comment: Post-operative progress note Anesthesia: Postop Eval II Evaluation Mental status: Awake Pain Level: 0 nausea: No Vomiting: No 12/11/24 1520 > Date _ Rafael Hooper MD Cosigner Signature: Date CC: ~ Signed [facility]03-14-2025 Radiology Diagnostic study note [facility] Imaging Services [address] [place], [place] [id number] ERCP Biliary/Pancreas MR#: [id number] Acct: [id number] Name: DIANE CONNORS Rep #: [id number] : 1985 M 39 From: Franco Soto MD PCP: AGUILAR Giles Status: REG S DC Study:ERCP Biliary/Pancreas Date of Exam: 12/11/24 Exam# [id number] Ordering Dr: Kayleigh Babin DO PROCEDURE: ERCP BILIARY/PANCREAS REASON FOR EXAM: ERCP TECHNIQUE: An ERCP was performed by the hog cutter. Fluoroscopic services were provided. COMPARISON: None. FINDINGS: A stent is seen on the original images. Following this, there is cannulation ofthe common bile duct. Contrast was injected. No filling defect is seen. RAD/ERCP Biliary/Pancreas IMPRESSION: Biliary stent removal. Reading Location: [facility] CC: RESIDENCE HALL DIRECTORGarrison Arias; DO Tanya Pierre Welder Apprentice: Signed [facility]03-14-2025 Consult note Author Rafael Hooper [facility] Note Date/Time December 11, 2024 1:0 0pm [facility] Medical Records Department [address] [place] [address] Pre-Anesthesia Evaluation 12/11/24 1259 MR#: [id number] Acct: [id number] Name: DIANE CONNORS Rep #:[id number] : 1985 39 From: Rafael Hooper MD PCP: Shira Arias RESIDENCE HALL DIRECTOR-C Status:REG S DC Y Race: C Location: [place] [address]- ASA Classification* ASA Classification ASA Classification: 2 Assessment & Plan Anesthesia* Anesthesia Assessment Anesthesia Assessment: Discussed sedation and/or anesthesia options, risks, benefits, and alternatives with patient/parents/legal guardian/POA. Questions invited. The patient/parents/legal guardian/POA seems to understand and agrees to proceedwith anesthesia plan. Reviewed the physical assessment, medical history, allergy history and patient home medications list prior to surgery/procedure/anesthetic and documented any changes. Performed airway and anesthesia risk assessments. Anesthesia Type Anesthesia Type: General Anesthesia Focused Assessment* Airway Assessment Mouth opens: >3 cm Mallampati Score: II Focused Labs Anesthesia Preop lab: CBC WBC 6.8 K/mm3 (4.4-11.0) 09/06/24 07:15 09/06/24 RBC 4.35 M/mm3 (4.6-6.2) L 09/06/24 07:15 09/06/24 Hgb 13.2 g/dL (13.0-16.5) 09/06/24 07:15 09/06/24 Hct 38.6 % (40-54) L 09/06/24 07:15 09/06/24 Plt Count 291 K/mm3 (150-450) 09/06/24 07:15 09/06/24 CHEMISTRY Potassium 4.0 mmol/L (3.5-5.1) 09/11/24 08:48 09/11/24 Sodium 137 mmol/L (136-145) 09/11/24 08:48 09/11/24 Magnesium 2.1 mg/dL (1.6-2.6) 09/06/24 07:15 09/06/24 Phosphorus 3.2 mg/dL (2.5-4.9) 09/06/24 07:15 09/06/24 BUN 17 mg/dL (7-18) 09/11/24 08:48 09/11/24 Creatinine 1.22 mg/dL (0.70-1.30) 09/11/24 08:48 09/11/24 Glucose 112 mg/dL (74-106) H 09/11/24 08:48 09/11/24 TSH 0.918 uIU/mL (0.358-3.740) 09/11/24 08:48 08/30 12/21 COAG PT 12.3 SECONDS (11.7-14.9) 09/11/24 08:48 Pre-Assessment Diagnosis/Proposed Procedure Planned Operative Procedure(s): ERCP 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 When Was Last Pacemaker Check QUESTION #4 FULL TEXT: You/Your Family Experience fever (hyperthermia) with Anesthesia Last Oral Intake Last Oral intake: Last Oral Intake NPO since Meds taken in AM with sips of water? 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 Female No 12/09/24 10:19 HX of Motion Sickness No 12/09/24 10:19 HX of N/V After Surgery No 12/09/24 10:19 Non-Smoker Yes 12/09/24 10:19 Duration of Surgery greater No 12/09/24 10:19 than 60 minutes Number of Risk Factors 1 12/09/24 10:19 PONV Score Low Risk 12/09/24 10:19 Height & Weight Height & Weight: Anesthesia: Height & Weight Height 5 ft 10 in 09/11/24 08:02 Respiratory Assessment Respiratory Assessment - special education science teacher: Respiratory Tract Infection Hx - special education science teacher Hx Respiratory Tract Infection No 12/09/24 10:19 STOP Sleep Apnea STOP Sleep Apnea - special education science teacher: STOP Sleep Apnea - special education science teacher Hx Hypertension No 12/09/24 10:19 Hx Sleep Apnea No 12/09/24 10:19 CPAP BIPAP Do you snore loudly (louder No 12/09/24 10:19 than talking or can be heard Do you often feel tired/ No 12/09/24 10:19 fatigued/ sleepy during daytime? Has anyone observed you stop No 12/09/24 10:19 breathing during sleep? STOP Results Negative 12/09/24 10:19 QUESTION #5 FULL TEXT : Do you snore loudly (louder than talking or can be heard through closed doors)? Tobacco Use History Tobacco Use History - special education science teacher: Tobacco Use History - special education science teacher Tobacco Use Smoking Status Never smoker 12/09/24 10:19 Hx Tobacco Use No 12/09/24 10:19 Years Smoking Packs Smoked per Day Smoking Cessation Date was within the last 15 years Hx Smoking Cessation Date Hx Smoking Cessation Counseling Hematologic Medial History Hematologic Hx - special education science teacher: Hematologic Medical Hx - car oiler Hx of Blood Transfusion No 12/09/24 10:19 Hx of Transfusion in last 3 No 12/09/24 10:19 Months Date of Last Transfusion (if within last 3 months) Ever experience any problems No 12/09/24 10:19 with transfusion(s)? Specify any problems Hx of Preganancy in last 3 N/A 12/09/24 10:19 Months Nurse Filling Out Transfusion NBUCHER 12/09/24 10:19 & Questions: Date: 12/09/24 12/09/24 10:19 Time: 10:19 12/09/24 10:19 Patient unable to answer at this time (ie. confused, unrespo /Reproduction History /Reproductive History - special education science teacher: /Reproductive Hx- special education science teacher Hx Now No 12/09/24 10:19 Gestational Age (in weeks): EDC: Hx Hx Para Hx Section SAB No 12/09/24 10:19 PFSH Medical History Overweight (BMI 25.0-29.9) No pertinent past medical history Home Medications ?Medication ?Instructions ?Recorded ?Last Taken ?Type NK 09/04/24 Unknown History Allergy/AdvReac Type Severity Reaction Status Date / Time No Known Allergies Allergy Verified 12/09/24 10:18 Surgical History History of ERCP Social History Smoking Status: Never smoker alcohol intake: never Review of Systems (Anesthesia) ROS Narrative System reviewed and no additional complaints, except as documented. 12/11/24 1300 <Electronically signed by Rafael Hooepr MD > Date _ Rafael Hooper MD Cosigner Signature: Date CC: ~ Signed [facility] Work Phone: 1(276) 750-463203-14-2025 History and physical note Author Denys Babin [facility] Note Date/Time December 11, 2024 12: 52pm [facility] Medical Records Department [address] [place] [id number] History & Physical Exam 12/11/24 1250 MR#: [id number] Acct: [id number] Name: DIANE CONNORS Rep #:[id number] : 1985 39 From: Denys Babin DO PCP: AGUILAR Giles Status:REG S DC Location: [place] [address] HPI - General General Date of Admission: 12/11/24 Date of Service: 12/11/24 Chief Complaint: stent removal HPI Narrative DIANE CONNORS, is a 39 M who presents for biliary stent removal. [facility] inpatient 12.624-12.9.24- Choledocholithiasis with severe jaundice, small gall stone removed from bile duct. MRCP only found cholelithiasis and a biliary stent in place. Pt was referred to general surgery for poss. cholecystectomy. Ptstates he is well since the hospital visit. Is not having any abdominal pain, loss of appetite, fatigue or changes in bowels. [facility] Medical History Overweight (BMI 25.0-29.9) No pertinent past medical history Home Medications ?Medication ?Instructions ?Recorded ?Last Taken ?Type NK 09/04/24 Unknown History Allergy/AdvReac Type Severity Reaction Status Date / Time No Known Allergies Allergy Verified 12/09/24 10:18 Surgical History History of ERCP Social History Smoking Status: Never smoker alcohol intake: never ROS Constitutional Constitutional: Denies fatigue, fever(s), poor appetite, weight gain or weight loss Gastrointestinal Gastrointestinal: Denies belching, bloating, change in bowel habits, change in stool character, chewing difficulty, coffee ground emesis, constipation, cramping, diarrhea, dyspepsia, dysphagia, early satiety, excessive flatus, fecal incontinence, heartburn, hematemesis, hematochezia, hemorrhoids, loose stools, melena, nausea, odynophagia, rectal bleeding, tenesmus, vomiting or weight changes Physical Exam Const alert, oriented x3, no apparent distress and healthy appearing General Appearance: cooperative GI normal to inspection, nondistended, normoactive bowel sounds, soft to palpation,non-tender and non-distended Percussion: normal to percussion Rectal Exam: deferred Assessment & Plan Assessment/Plan (1) Hyperbilirubinemia: (2) Cholelithiases: (3) Jaundice: PLAN: Assessment and Plan Assessment and Plan (1) Hyperbilirubinemia: Status: Acute Plan: Patient was seen as follow-up after hospital discharge about 5 days ago. Labs, imaging including MRCP, CT abdomen and ERCP reviewed. Discussed with Dr. Babinand imagings reviewed. MRCP shows diffuse intra and extrahepatic biliary ductaldilatation with gallstones. It does not show a specific stricture or mass or cause for obstructive jaundice. ERCP was done on 09/05 was found small stone but was significant finding. CA 19-9 is high 137 which is very significant in view and evaluate greater than 100 units/mL suspicious of presence of cancer. Patient denies personal or family history of autoimmune disease including PSC, PBC, UC, CD, celiac disease autoimmune disease related to pancreas, thyroid or pituitary gland. At this point, patient needs referral to tertiary care center for ERCP with withintraluminal ultrasound through CBD/pancreatic duct or stomach to rule out any mass or stricture or cause for high bilirubin. Repeat CA 19-9. Labs ordered. CT abdomen pelvis triple phage ordered. Liver biopsy also ordered. Follow-up in 1 month. (2) Drug-induced liver injury: Status: Acute Plan: Predominant increase in mainly indirect hyperbilirubinemia with mild elevation of transaminase alkaline phosphatase. Transaminases alkaline phosphatase and total bilirubin/total bilirubin are improving. Mainly caused by supplement. Patient stated he was taking artichoke, sunflower,lecithin, 1 pill each 2 times daily for about 3 weeks. Was also taking milk thistle He was taking in order to dissolve the gallstones. (3) Choledocholithiasis: Status: Acute Plan: This was accomplished by ERCP. Patient also had multiple gallstones gallbladder and will need elective cholecystectomy probably after total bilirubin gets normal/near normal Small stone in in CBD does not explain diffuse dilatation of intra or extrahepatic bili ductal Autoimmune markers were negative. The IgG subclass ERCP on 09/08/2020 Impressions : - Choledocholithiasis was found. Complete removal was accomplished by biliary sphincterotomy and balloon extraction. - A biliary sphincterotomy was performed. - The biliary tree was swept. - One temporary stent was placed into the common bile duct. 12/11/24 1252 <Electronically signed by Denys Babin DO> Cosigner Signature (if applicable): CC: AGUILAR Arias; Denys Babin DO~ Signed [facility] Work Phone: [phone] 367-242403-14-2025 Evaluation note* Diagnosis Onset Date Resolution Status Admit Date Cholelithiases acute November 12:28pm Jaundice acute December 11 12:28pm Hyperbilirubinemia inactive December 11, 2024 12:28pm Bacteremia due to Gram-negat daniele bacteria acute December 14, 2024 2:45pm Choledocholithiasis resolved December 14, 2024 2:45pm Elevation of levels of liver transaminase levels inactive December 14, 2024 2:45pm Hyperbilirubinemia inactive December 14, 2024 2:45pm Choledocholithiasis resolved December 31, 2024 9:50am Hyperbilirubinemia inactive December 31, 2024 9:50am Cholelithiases acute December 31, 2024 10:55am Jaundice acute December 31 10:55[facility] Work Phone: 1(839) 220-354003-14-2025 Consult note [facility] Medical Records Department [address] [place] [address] Anesthesia Postop Eval I 12/11/246 MR#: [id number] Acct: [id number] Name: DIANE CONNORS Rep #:[id number] : 1985 39 From: Hipolito Rasheed PCP: ROLY GilesC Status:REG S DC Y Race: C Location: [place] [address] Anesthesia: Postop Eval I Current Vital Signs Temperature: 97.2 F Pulse Rate: 81 Blood Pressure: 103/80 Respiratory Rate: 16 Pulse Ox: 95 Oxygen Delivery Method: Room Air Assessment Airway patent: Yes Spontaneous unlabored respirations: Yes Mental status: Asleep nausea: No Vomiting: No Anesthesia Complication: No Fluid Hydration Crystalloid volume administer (ml): 700 Total IV fluid infused: 700 Progress Note Anesthesia document: Postop Eval 1 completed: Yes 12/11/241426 > Date _ Hipolito Marrero Signature: Date CC: ~ Signed [facility]03-14-2025 Procedure note [facility] Medical Records Department [address] [facility] [place] [place] [address] ERCP Report MR#: [id number] Acct: [id number] Name: DIANE CONNORS Rep #:[id number] : 1985 39 From: Denys Babin DO PCP: AGUILAR Giles Status:REG S DC Patient Name: Diane Connors Procedure Date: 12/11/2024 1:30 PM Date of : 1985 Age: 39 Procedure: ERCP Indications: Bile duct stone(s) Providers: Denys Babin DO Referring MD: Shira Arias Medicines: Monitored Anesthesia Care Patient Profile: This is a 39 year old male. Refer to note in patient chart for documentation of history and physical. Patient has symptoms of acute right upper quadrant abdominal pain, chronic right upper quadrant abdominal pain and acute jaundice. Complications: No immediate complications. Procedure: Pre-Anesthesia Assessment: - Prior to the procedure, a History and Physical was performed, and patient medications and allergies were reviewed. The patient is competent. The risks and benefits of the procedure and the sedation options and risks were discussed with the patient. All questions were answered and informed consent was obtained. Patient identification and proposed procedure were verified by the nurse in the pre-procedure area. Mental Status Examination: alert and oriented. Airway Examination: normal oropharyngeal airway and neck mobility. Respiratory Examination: clear to auscultation. CV Examination: normal. Prophylactic Antibiotics: The patient does not require prophylactic antibiotics. Prior Anticoagulants: The patient has taken no anticoagulant or antiplatelet agents. ASA Grade Assessment: II - A patient with mild systemic disease. After reviewing the risks and benefits, the patient was deemed in satisfactory condition to undergo the procedure. The anesthesia plan was to use monitored anesthesia care (MAC). Immediately prior to administration of medications, the patient was re-assessed for adequacy to receive sedatives. The heart rate, respiratory rate, oxygen saturations, blood pressure, adequacy of pulmonary ventilation, and response to care were monitored throughout the procedure. The physical status of the patient was re-assessed after the procedure. After obtaining informed consent, the scope was passed under direct vision. Throughout the procedure, the patient's blood pressure, pulse, and oxygen saturations were monitored continuously. The Duodenoscope was introduced through the mouth, and advanced to the duodenum and used to inject contrast into the bile duct. The ERCP was accomplished without difficulty. The patient tolerated the procedure well. Scope In: 1:51:52 PM Scope Out: 2:07:01 PM Total Procedure Duration Time 0 hours 15 minutes 9 seconds Findings: The spray ii painter film was normal. The esophagus was successfully intubated under direct vision. The scope was advanced to a normal major papilla in the descending duodenum without detailed examination of the pharynx, larynx and associated structures, and upper GI tract. The upper GI tract was grossly normal. A long 0.025 inch Jagwire was passed into the biliary tree. The short-nosed traction sphincterotome was passed over the guidewire and the bile duct was then deeply cannulated. Contrast was injected. I personally interpreted the bile duct images. There was brisk flow of contrast through the ducts. Image quality was adequate. Contrast extended to the main bile duct. Contrast extended to the cystic duct. Contrast extended to the bifurcation. Contrast extended to the hepatic ducts. Contrast extended to the entire biliary tree. Opacification of the entire biliary tree except for the gallbladder, common bile duct, cystic duct, gallbladder, common hepatic duct, hepatic duct bifurcation, left and right hepatic ducts with secondary or tertiary branches of the intrahepatic ducts (Bismuth IV), left and right hepatic ducts and all intrahepatic branches and entire biliary tree was successful. The maximum diameter of the ducts was 9 mm. The lower third of the main bile duct, common bile duct, cystic duct, left main hepatic duct and left intrahepatic branches contained multiple stones, the largest of which was 6 mm in diameter. The entire biliary tree except for the cystic duct and gallbladder were diffusely dilated, with a stone causing an obstruction. The largest diameter was 10 mm. A 5 mm biliary sphincterotomy was made with a traction (standard) sphincterotome using ERBE electrocautery. There was no post-sphincterotomy bleeding. The biliary tree was swept with a 12 mm balloon starting at the upper third of the main bile duct, middle third of the main bile duct, lower third of the main duct, bifurcation, left intrahepatic duct(s), left main hepatic duct and right main hepatic duct. Sludge was swept from the duct. All stones were removed. One stent was removed from the biliary tree using a snare and sent for cytology. The stent was found to be occluded via the water column test. Impression: - The biliary system were dilated, with a stone causing an obstruction. - Choledocholithiasis was found. Complete removal was accomplished by biliary sphincterotomy and balloon extraction. - A biliary sphincterotomy was performed. - The biliary tree was swept. - One stent was removed from the biliary tree. Recommendation: Cholecystectomy Procedure Code(s): --- Professional --- 76933, Endoscopic retrograde cholangiopancreatography (ERCP); with removal of foreign body(s) or stent(s) from biliary/pancreatic duct(s) 72006, Endoscopic retrograde cholangiopancreatography (ERCP); with removal of calculi/debris from biliary/pancreatic duct(s) 12557, Endoscopic retrograde cholangiopancreatography (ERCP); with sphincterotomy/papillotomy 36593, 26, Endoscopic catheterization of the biliary ductal system, radiological supervision and interpretation CPT copyright 2021 [employer]. All rights reserved. The codes documented in this report are preliminary and upon reel tender review may be revised to meet current compliance requirements. Denys Babin DO 12/11/2024 2:18:31 PM This report has been signed electronically. Number of Addenda: 0 Note Initiated On: 12/11/2024 1:30 PM 12/11/24 1418 Date _ Denys Babin DO Cosigner Signature: Date (if indicated) CC: AGUILAR Arias; Denys Babin DO ~ Date Dictated: 12/11/24 1330 Date Transcribed: Welder Apprentice: RF Signed [facility]03-14-2025 Procedure note [facility] Medical Records Department [address] [place] [address] Operative Report - CC Letter MR#: [id number] Acct: [id number] Name: DIANE CONNORS Rep #:[id number] : 1985 39 From: Denys Babin DO PCP: AGUILAR Giles Status:REG S DC 12/11/2024 Shira Arias Re : ERCP procedure for Diane Connors [place] This procedure was performed on Wednesday, December 11, 2024. My impressions and recommendations are as follows: Impressions : - The biliary system were dilated, with a stone causing an obstruction. - Choledocholithiasis was found. Complete removal was accomplished by biliary sphincterotomy and balloon extraction. - A biliary sphincterotomy was performed. - The biliary tree was swept. - One stent was removed from the biliary tree. Recommendations : Cholecystectomy My findings are described in the full procedure note, which is enclosed. If I can be of further assistance, please feel free to contact me at . Sincerely, Denys Olaf 12/11/2024 2:18:31 PM This report has been signed electronically. 12/11/24 1418 Date _ Denys Olaf Cosigner Signature: Date (if indicated) CC: AGUILAR Arias; Denys DO Olaf ~ Date Dictated: 12/11/24 1330 Date Transcribed: Welder Apprentice: RF Signed [facility]03-14-2025 Consult note [facility] Medical Records Department [address] [place] [id number] Pre-Anesthesia Evaluation 12/11/24 1259 MR#: [id number] Acct: [id number] Name: DIANE CONNORS Rep #:[id number] : 1985 39 From: Rafael Hooper MD PCP: AGUILAR Giles Status:REG S DC Y Race: C Location: [place] [address] ASA Classification* ASA Classification ASA Classification: 2 Assessment & Plan Anesthesia* Anesthesia Assessment Anesthesia Assessment: Discussed sedation and/or anesthesia options, risks, benefits, and alternatives with patient/parents/legal guardian/POA. Questions invited. The patient/parents/legal guardian/POA seems to understand and agrees to proceedwith anesthesia plan. Reviewed the physical assessment, medical history, allergy history and patient home medications list prior to surgery/procedure/anesthetic and documented any changes. Performed airway and anesthesia risk assessments. Anesthesia Type Anesthesia Type: General Anesthesia Focused Assessment* Airway Assessment Mouth opens: >3 cm Mallampati Score: II Focused Labs Anesthesia Preop lab: CBC WBC 6.8 K/mm3 (4.4-11.0) 09/06/24 07:15 09/06/24 RBC 4.35 M/mm3 (4.6-6.2) L 09/06/24 07:15 09/06/24 Hgb 13.2 g/dL (13.0-16.5) 09/06/24 07:15 09/06/24 Hct 38.6 % (40-54) L 09/06/24 07:15 09/06/24 Plt Count 291 K/mm3 (150-450) 09/06/24 07:15 09/06/24 CHEMISTRY Potassium 4.0 mmol/L (3.5-5.1) 09/11/24 08:48 09/11/24 Sodium 137 mmol/L (136-145) 09/11/24 08:48 09/11/24 Magnesium 2.1 mg/dL (1.6-2.6) 09/06/24 07:15 09/06/24 Phosphorus 3.2 mg/dL (2.5-4.9) 09/06/24 07:15 09/06/24 BUN 17 mg/dL (7-18) 09/11/24 08:48 09/11/24 Creatinine 1.22 mg/dL (0.70-1.30) 09/11/24 08:48 09/11/24 Glucose 112 mg/dL (74-106) H 09/11/24 08:48 09/11/24 TSH 0.918 uIU/mL (0.358-3.740) 09/11/24 08:48 08/30 12/21 COAG PT 12.3 SECONDS (11.7-14.9) 09/11/24 08:48 Pre-Assessment Diagnosis/Proposed Procedure Planned Operative Procedure(s): ERCP 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 When Was Last Pacemaker Check QUESTION #4 FULL TEXT: You/Your Family Experience fever (hyperthermia) with Anesthesia Last Oral Intake Last Oral intake: Last Oral Intake NPO since Meds taken in AM with sips of water? 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 Female No 12/09/24 10:19 HX of Motion Sickness No 12/09/24 10:19 HX of N/V After Surgery No 12/09/24 10:19 Non-Smoker Yes 12/09/24 10:19 Duration of Surgery greater No 12/09/24 10:19 than 60 minutes Number of Risk Factors 1 12/09/24 10:19 PONV Score Low Risk 12/09/24 10:19 Height & Weight Height & Weight: Anesthesia: Height & Weight Height 5 ft 10 in 09/11/24 08:02 Respiratory Assessment Respiratory Assessment - special education science teacher: Respiratory Tract Infection Hx - special education science teacher Hx Respiratory Tract Infection No 12/09/24 10:19 STOP Sleep Apnea STOP Sleep Apnea - special education science teacher: STOP Sleep Apnea - special education science teacher Hx Hypertension No 12/09/24 10:19 Hx Sleep Apnea No 12/09/24 10:19 CPAP BIPAP Do you snore loudly (louder No 12/09/24 10:19 than talking or can be heard Do you often feel tired/ No 12/09/24 10:19 fatigued/ sleepy during daytime? Has anyone observed you stop No 12/09/24 10:19 breathing during sleep? STOP Results Negative 12/09/24 10:19 QUESTION #5 FULL TEXT : Do you snore loudly (louder than talking or can be heard through closeddoors)? Tobacco Use History Tobacco Use History - special education science teacher: Tobacco Use History - special education science teacher Tobacco Use Smoking Status Never smoker 12/09/24 10:19 Hx Tobacco Use No 12/09/24 10:19 Years Smoking Packs Smoked per Day Smoking Cessation Date was within the last 15 years Hx Smoking Cessation Date Hx Smoking Cessation Counseling Hematologic Medial History Hematologic Hx - special education science teacher: Hematologic Medical Hx - car oiler Hx of Blood Transfusion No 12/09/24 10:19 Hx of Transfusion in last 3 No 12/09/24 10:19 Months Date of Last Transfusion (if within last 3 months) Ever experience any problems No 12/09/24 10:19 with transfusion(s)? Specify any problems Hx of Preganancy in last 3 N/A 12/09/24 10:19 Months Nurse Filling Out Transfusion NBUCHER 12/09/24 10:19 & Questions: Date: 12/09/24 12/09/24 10:19 Time: 10:19 12/09/24 10:19 Patient unable to answer at this time (ie. confused, unrespo /Reproduction History /Reproductive History - special education science teacher: /Reproductive Hx- special education science teacher Hx Now No 12/09/24 10:19 Gestational Age (in weeks): EDC: Hx Hx Para Hx Section SAB No 12/09/24 10:19 [facility] History Overweight (BMI 25.0-29.9) No pertinent past medical history Home Medications ?Medication ?Instructions ?Recorded ?Last Taken ?Type NK 09/04/24 Unknown History Allergy/AdvReac Type Severity Reaction Status Date / Time No Known Allergies Allergy Verified 12/09/24 10:18 Surgical History History of ERCP Social History Smoking Status: Never smoker alcohol intake: never Review of Systems (Anesthesia) ROS Narrative System reviewed and no additional complaints, except as documented. 12/11/24 1300 > Date _ Rafael Marrero Signature: Date CC: ~ Signed [facility]03-14-2025 History and physical note [facility] Medical Records Department [address] [place] [address] History & Physical Exam 12/11/24 1250 MR#: [id number] Acct: [id number] Name: DIANE CONNORS Rep #:[id number] : 1985 39 From: Denys Babin DO PCP: ROLY GilesC Status:REG S DC Location: [place] [address] HPI - General General Date of Admission: 12/11/24 Date of Service: 12/11/24 Chief Complaint: stent removal HPI Narrative DIANE CONNORS, is a 39 M who presents for biliary stent removal. [facility] inpatient 12.6.24-12.9.24- Choledocholithiasis with severe jaundice, small gall stone removed from bile duct. MRCP only found cholelithiasis and a biliary stent in place. Pt was referred to general surgery for poss. cholecystectomy. Ptstates he is well since the hospital visit. Is not having any abdominal pain, loss of appetite, fatigue or changes in bowels. [facility] Medical History Overweight (BMI 25.0-29.9) No pertinent past medical history Home Medications ?Medication ?Instructions ?Recorded ?Last Taken ?Type NK 09/04/24 Unknown History Allergy/AdvReac Type Severity Reaction Status Date / Time No Known Allergies Allergy Verified 12/09/24 10:18 Surgical History History of ERCP Social History Smoking Status: Never smoker alcohol intake: never ROS Constitutional Constitutional: Denies fatigue, fever(s), poor appetite, weight gain or weight loss Gastrointestinal Gastrointestinal: Denies belching, bloating, change in bowel habits, change in stool character, chewing difficulty, coffee ground emesis, constipation, cramping, diarrhea, dyspepsia, dysphagia, earlysatiety, excessive flatus, fecal incontinence, heartburn, hematemesis, hematochezia, hemorrhoids, loose stools, melena, nausea, odynophagia, rectal bleeding, tenesmus, vomiting or weight changes Physical Exam Const alert, oriented x3, no apparent distress and healthy appearing General Appearance: cooperative GI normal to inspection, nondistended, normoactive bowel sounds, soft to palpation,non-tender and non-distended Percussion: normal to percussion Rectal Exam: deferred Assessment & Plan Assessment/Plan (1) Hyperbilirubinemia: (2) Cholelithiases: (3) Jaundice: PLAN: Assessment and Plan Assessment and Plan (1) Hyperbilirubinemia: Status: Acute Plan: Patient was seen as follow-up after hospital discharge about 5 days ago. Labs, imaging including MRCP, CT abdomen and ERCP reviewed. Discussed with Dr. Eli imagings reviewed. MRCP shows diffuseintra and extrahepatic biliary ductaldilatation with gallstones. It does not show a specific stricture or mass or cause for obstructive jaundice. ERCP was done on 09/05 was found small stone but was significant finding. CA 19-9 is high 137 which is very significant in view and evaluate greater than 100 units/mL suspicious of presence of cancer. Patient denies personal or family history of autoimmune disease including PSC, PBC, UC, CD, celiac disease autoimmune disease related to pancreas, thyroid or pituitary gland. At this point, patient needs referral to tertiary care center for ERCP with withintraluminal ultrasound through CBD/pancreatic duct or stomach to rule out any mass or stricture or cause for high bilirubin. Repeat CA 19-9. Labs ordered. CT abdomen pelvis triple phage ordered. Liver biopsy also ordered. Follow-up in 1 month. (2) Drug-induced liver injury: Status: Acute Plan: Predominant increase in mainly indirect hyperbilirubinemia with mild elevation of transaminase alkaline phosphatase. Transaminases alkaline phosphatase and total bilirubin/total bilirubin are improving. Mainly caused by supplement. Patient stated he was taking artichoke, sunflower,lecithin, 1 pill each 2 times daily for about 3 weeks. Was also taking milk thistle He was taking in order to dissolve the gallstones. (3) Choledocholithiasis: Status: Acute Plan: This was accomplished by ERCP. Patient also had multiple gallstones gallbladder and will need elective cholecystectomy probably after total bilirubin gets normal/near normal Small stone in in CBD does not explain diffuse dilatation of intra or extrahepatic bili ductal Autoimmune markers were negative. The IgG subclass ERCP on 09/08/2020 Impressions : - Choledocholithiasis was found. Complete removal was accomplished by biliary sphincterotomy and balloon extraction. - A biliary sphincterotomy was performed. - The biliary tree was swept. - One temporary stent was placed into the common bile duct. 12/11/24 1252 Cosigner Signature (if applicable): CC: AGUILAR Arias; Denys Friend, DO~ Signed [facility]03-14-2025 [facility]12-09-2024 [facility]12-06-2024 Evaluation note* Diagnosis Onset Date Resolution Status Admit Date Hyperbilirubinemia acute Decemb er 2023 9:07pm Jaundice acute 2024 9:07pm Choledocholithiasis resolved Decem 2023 9:07pm Overweight (BMI 25.0-29.9) inactive 2024 9:07pm Drug-induced liver injury acute September 11, 2024 7:58am Hyperbilirubinemia acute Decemb er 2023 7:58am Choledocholithiasis resolved Decem jose 2023 7:58am Cholelithiases acute November 12:28pm Hyperbilirubinemia acute December 11, 2024 12:28pm Jaundice acute December 11 12:28pm [facility] Work Phone: 1(929) 441-345712-06-2024 Evaluation note* Diagnosis Onset Date Resolution Status Admit Date Hyperbilirubinemia acute Decemb er 2023 9:07pm Jaundice acute 2024 9:07pm Choledocholithiasis resolved Decem 2023 9:07pm Overweight (BMI 25.0-29.9) inactive 2024 9:07pm Drug-induced liver injury acute September 11, 2024 7:58am Hyperbilirubinemia acute Decemb er 2023 7:58am Choledocholithiasis resolved Decem jose 2023 7:58am Cholelithiases acute November 12:28pm Hyperbilirubinemia acute December 11, 2024 12:28pm Jaundice acute December 11 12:28pm Elevation of levels of liver transaminase levels acute December 14, 2024 2:45pm Hyperbilirubinemia acute December 14, 2024 2:45pm [facility] Work Phone: 1([phone]) 820-848012-06-2024 Evaluation note* Diagnosis Onset Date Resolution Status Admit Date Hyperbilirubinemia acute Decemb er 2023 9:07pm Jaundice acute 2024 9:07pm Choledocholithiasis resolved Decem 2023 9:07pm Overweight (BMI 25.0-29.9) inactive 2024 9:07pm Drug-induced liver injury acute September 11, 2024 7:58am Hyperbilirubinemia acute Decemb er 2023 7:58am Choledocholithiasis resolved Decem jose 2023 7:58am Cholelithiases acute November 12:28pm Hyperbilirubinemia acute December 11, 2024 12:28pm Jaundice acute December 11 12:28pm Bacteremia due to Gram-negat daniele bacteria acute December 14, 2024 2:45pm Elevation of levels of liver transaminase levels acute December 14, 2024 2:45pm Hyperbilirubinemia acute December 14, 2024 2:45pm Choledocholithiasis resolved December 14, 2024 2:45pm [facility] Work Phone: 1(667) 695-130112-06-2024 Evaluation note* Diagnosis Onset Date Resolution Status Admit Date Jaundice acute 2024 9:07pm Choledocholithiasis resolved Decem 2023 9:07pm Hyperbilirubinemia inactive Decemb er 2023 9:07pm Overweight (BMI 25.0-29.9) inactive 2024 9:07pm Drug-induced liver injury acute September 11, 2024 7:58am Choledocholithiasis resolved Decem 2023 7:58am Hyperbilirubinemia inactive Decemb er 2023 7:58am Cholelithiases acute November 12:28pm Jaundice acute December 11 12:28pm Hyperbilirubinemia inactive December 11, 2024 12:28pm Bacteremia due to Gram-negat daniele bacteria acute December 14, 2024 2:45pm Choledocholithiasis resolved December 14, 2024 2:45pm Elevation of levels of liver transaminase levels inactive December 14, 2024 2:45pm Hyperbilirubinemia inactive December 14, 2024 2:45pm Choledocholithiasis resolved December 31, 2024 9:50am Hyperbilirubinemia inactive December 31, 2024 9:50am Cholelithiases acute December 31, 2024 10:55am Jaundice acute December 31 10:55am [facility] Work Phone: 1([phone] 526-182712-06-2024 Consult note Author Rafael Hooper [facility] Note Date/Time December 11, 2024 4:1 0pm [facility] Medical Records Department [address] [place] [address] Anesthesia Postop Eval II 12/11/24 1520 MR#: [id number] Acct: [id number] Name: DIANE CONNORS Rep #:[id number] : 1985 39 From: Rafael Hooper MD PCP: AGUILAR Giles Status:REG S DC Y Race: C Location: [place] [address] Anesthesia Postop Eval I Sum Postop Eval Completion status Anesthesia document: Postop Eval 1 completed: Yes Anesthesia Postop Eval I Summary Anesthesia Postop Eval I Summary: Anesthesia Postop Eval I: Assessment Summary Airway patent Yes 12/11/24 14:27 [email or web address] Spontaneous unlabored Yes 12/11/24 14:27 [email or web address] respirations Mental status Asleep 12/11/24 14:27 [email or web address] nausea No 12/11/24 14:27 [email or web address] Vomiting No 12/11/24 14:27 [email or web address] Anesthesia Postop Eval I: Fluid Summary Crystalloid volume administer 700 12/11/24 14:27 [email or web address] (ml) Colloids volume administered ( ml) Blood Product volume administered (ml) Total IV fluid infused 700 12/11/24 14:27 [email or web address] Anesthesia Postop Eval I: Summary Notes Anesthesia Complication No 12/11/24 14:27 [email or web address] Anesthesia Complication Comment: Post-operative progress note Anesthesia: Postop Eval II Evaluation Mental status: Awake Pain Level: 0 nausea: No Vomiting: No 12/11/24 1520 <Electronically signed by Rafael Hooper MD > Date _ Rafael Hooper MD Cosigner Signature: Date CC: ~ Signed [facility] Work Phone: 1(763) 916-716011-13-2024 Note ORIGINAL EXAMINATION: LIMITED ABDOMINAL [id number]/13/2024 8:11 am Limited ultrasound of the abdomen attention right upper quadrant COMPARISON: None TECHNIQUE: This report is based on interpretation of permanently recorded ultrasound images. HISTORY: ORDERING SYSTEM PROVIDED HISTORY: Reason for Exam: RUQ pain, FINDINGS: The liver is normal in size and echogenicity. No suspicious focal lesions are seen. There is no intrahepatic bile duct dilatation. The common duct is 9.6 mm at the rick hepatis. There are echogenic foci within the duct distally suspicious for stones.. The gallbladder is moderately distended with small mobile calculi. There is no abnormal wall thickening. Negative sonographic Isidro's sign.. The visualized pancreas shows no focal lesion or mass. Some portions of the pancreas are obscured by bowel gas. No ascites is seen in the Ledezma's pouch. Limited survey images of the right kidney shows normal cortical thickness and echogenicity and no pelvocaliectasis. The visualized aorta and IVC are normal in caliber. IMPRESSION: Gallstones without secondary signs of acute cholecystitis. Dilated common duct with suspected choledocholithiasis. The findings were sent to the Radiology Results Communication Center at 9:45 am on 08/12/2024to be communicated to a licensed caregiver. Interpreted by: Jose Capone MD Preliminary Report By: Jose Capone MD Electronically signed By Jose Capone MD Dictated Date: 08/12/2024 9:44:12 AM Prelim Date: 08/12/2024 9:46:00 AM Sign Date: 08/12/2024 9:46:00 AM Ordering Provider: [facility]11-06-2024 Evaluation + Plan note Future Scheduled Tests Laboratory* Amylase Level 08/05/24 * Lipase Level 08/05/24 * Complete Blood Count 08/05/24 * Lipid Profile 01/29/24 * Complete Metabolic Panel 08/05/24 * Complete Metabolic Panel 01/29/24 Radiology* US Abdomen Limited 08/10/24 [facility] 09-10-2024 Note ORIGINAL EXAMINATION: CT OF THE PELVIS WITHOUT CONTRAST 06/09/2024 10:53 am TECHNIQUE: CT of the pelvis was performed without the administration of intravenous contrast. Multiplanar reformatted images are provided for review. Adjustment of mA and/or kV according to patient size was utilized. Automated exposure control, iterative reconstruction, and/or weight based adjustment of the mA/kV was utilized to reduce the radiation dose to as low as reasonably achievable. COMPARISON: Scrotal ultrasound 03/27/2024 HISTORY ORDERING SYSTEM PROVIDED HISTORY: Reason for Exam: undescended R testicle, eval for presence of R testicle FINDINGS: Bones: No evidence of acute fracture or dislocation. No aggressive appearing osseous abnormality or periostitis. Scattered pelvic sclerotic foci, likely bone islands. Soft Tissue: Small left fat containing inguinal hernia. Confirmation of undescended right testicle with an ovoid 2.6 cm soft tissue density located within the right intra-abdominal cavity. There is some additional nodular soft tissue density seen within the right inguinal canal. No significant soft tissue edema or fluid collections. Visualized intrapelvic abdominal organs demonstrate no acute abnormality. Few scattered colonic diverticula without adjacent inflammation to suggest diverticulitis. Dystrophic calcification within the prostate. The bladder is nondilated with circumferential wall thickening. Phleboliths. Small fat containing paraumbilical hernia. IMPRESSION: Confirmation of undescended intra-abdominal right testicle. Some extension of nodular soft tissue into the right inguinal canal of uncertain significance. This may represent prominent vasculature although other etiologies are considered. Consider sonographic follow-up as clinically indicated. I have personally reviewed the images of this examination and agree with the resident's findings and interpretations. Interpreted by: Camron Mac MD Preliminary Report By: Amador Wren Electronically signed By Camron Mac MD Dictated Date: 06/09/2024 11:13:52 AM Prelim Date: 06/09/2024 12:42:25 PM Sign Date: 06/09/2024 12:42:25 PM Ordering Provider: [facility] [place]06-28-2024 Note ORIGINAL EXAMINATION: ULTRASOUND OF THE SCROTUM/TESTICLES WITH COLOR DOPPLER FLOW EVALUATION03/27/2024 3:08 pm Scrotal Ultrasound with Duplex Doppler evaluation TECHNIQUE: Duplex ultrasound using B-mode/vazquez scaled imaging, Doppler spectral analysis and color flow Doppler was obtained of the testicles. Grayscale, color Doppler and spectral waveform evaluation COMPARISON: None HISTORY: ORDERING SYSTEM PROVIDED HISTORY: Reason for Exam: undescended right testicle, all images are recorded and archived. FINDINGS: Right testicle: Not diagnostically identified within the right hemiscrotum or inguinal canal. Left testicle: 4.7 x 2.5 x 4.0 cm. No focal nor diffuse abnormalities are seen. Color Doppler flow is seen in both testicles in a symmetric fashion. Spectral waveform analysis of the testicles shows arterial and venous waveforms in both testicles. IMPRESSION: 1. Nonvisualization of the right testicle. 2. Normal appearance to the left testicle. Interpreted by: Ephraim Arana DO Preliminary Report By: Ephraim Arana DO Electronically signed By Ephraim Arana DO Dictated Date: 03/27/2024 3:10:43 PM Prelim Date: 03/27/2024 3:12:22 PM Sign Date: 03/27/2024 3:12:22 PM [facility]ing [facility] Evaluation + Plan note Future Scheduled Tests Laboratory* Lipid Profile 01/29/24 * Complete Metabolic Panel 01/29/24 [facility] 05-01-2024 Evaluation + Plan note Future Scheduled Tests Laboratory* Lipid Profile 01/29/24 * Complete Metabolic Panel 01/29/24 Radiology* US Pelvis Non-OB Complete 06/11/24 [facility] Consult note Author Hipolito Rasheed [facility] Note Date/Time December 11, 2024 2:2 7pm [facility] Medical Records Department [address] [place] [address] Anesthesia Postop Eval I 12/11/24 1426 MR#: [id number] Acct: [id number] Name: DIANE CONNORS Rep #:[id number] : 1985 39 From: Hipolito Rasheed PCP: Shira Arias [employer]ID[employer] H[employer] DIRECTOR-C Status:REG S DC Y Race: C Location: [place] [address] Anesthesia: Postop Eval I Current Vital Signs Temperature: 97.2 F Pulse Rate: 81 Blood Pressure: 103/80 Respiratory Rate: 16 Pulse Ox: 95 Oxygen Delivery Method: Room Air Assessment Airway patent: Yes Spontaneous unlabored respirations: Yes Mental status: Asleep nausea: No Vomiting: No Anesthesia Complication: No Fluid Hydration Crystalloid volume administer (ml): 700 Total IV fluid infused: 700 Progress Note Anesthesia document: Postop Eval 1 completed: Yes 12/11/24 0255 <Electronically signed by Hipolito Rsaheed > Date _ Hipolito Rasheed Cosigner Signature: Date CC: ~ Signed [facility] Work Phone: Consult note Author Jared [facility] Note Date/Time December 16, 2024 4:1 7pm [facility] Medical Records Department [address] [place] [address] Consultation - Infectious Dx 12/16/24 1613 MR#: [id number] Acct: [id number] Name: DIANE CONNORS Rep #:[id number] : 1985 39 From: Jared melendrez MD PCP: Shira Arias [employer]IDENCE H[employer] DIRECTOR-C Status:ADM I N Location: [place] [address] Assessment & Plan Assessment/Plan (1) Bacteremia due to Gram-negative bacteria: PLAN: Feeling better on zosyn. Had ERCP 12/11, then again 12/15/[address] Babin for removal of stone. Ok for d/c home on po augmentin for one week, will follow final cx data. Will follow prn, thank you, d/w Dr. Lui HPI Consult Data Date of Consult: 12/16/24 HPI Narrative Reason for Consultation: bacteremia HPI Narrative: DIANE CONNORS, is a 39 M who presented 12/14 with acute onset fever and chills. Had ERCP 12/11 with removal of stone and biliary sphincterotomy. Had some associated abd pain and nausea. Admitted on zosyn, feeling better today. No cough or SOB. Additional history from at bedside. Full ROS performed and neg except as noted above. [facility] Medical History Overweight (BMI 25.0-29.9) No pertinent past medical history Medical History no medical history Home Medications ?Medication ?Instructions ?Recorded ?Last Taken ?Type amoxicillin 875 mg-potassium 1 tab PO BID 1 week #14 t abs 12/16/24 Unknown Rx clavulanate 125 mg tablet Allergy/AdvReac Type Severity Reaction Status Date / Time No Known Allergies Allergy Verified 12/14/24 10:16 Surgical History History of ERCP Social History Smoking Status: Never smoker alcohol intake: never Physical Exam Const alert, oriented x3 and no apparent distress General Appearance: cooperative HEENT normocephalic and head/scalp atraumatic Eyes PERRL and EOMs intact bilaterally Neck supple and No nodes Resp normal air movement and clear to auscultation bilaterally Cardio regular rate and regular rhythm GI soft to palpation, non-tender and non-distended Extremity General Extremity: Negative for edema Skin no rashes or lesions noted Neuro CN's II-XII intact bilaterally Lab / Micro Data Attestation: I reviewed the patient's lab results. 12/16/24 05:09 12/16/24 05:09 Labs: Laboratory Results - last 24 hr 12/16/24 05:09: WBC 6.1, RBC 4.63, Hgb 13.5, Hct 39.8 L, MCV 86.0, MCH 29.2, MCHC 33.9, RDW Std Deviation 40.5, RDW Coeff of Joanne 13.0, Plt Count 153, MPV 9.8, Immature Gran % (Auto) 1.600 H, Neut % (Auto) 61.0, Lymph % (Auto) 20.8, Cross % (Auto) 13.5 H, Eos % (Auto) 2.3, Baso % (Auto) 0.8, Absolute Neuts (auto) 3.7, Absolute Lymphs (auto) 1.28, Nucleated RBC % 0, Sodium 139, Potassium 4.0, Chloride 104, Carbon Dioxide 24.8, Anion Gap 10, BUN 14, Creatinine 1.06, Estim Creat Clear Calc 105.07, Est GFR (MDRD) Non-Af 90, BUN/Creatinine Ratio 12.7, Glucose 85, Calcium 9.0, Total Bilirubin 2.75 H, Direct Bilirubin 1.88 H, AST 29, ALT 149 H, Alkaline Phosphatase 136 H, Total Protein 6.2, Albumin 3.1 L, Globulin 3.1 Micro: Microbiology 12/14/24 12:25 Blood Culture (Wb) - Anticubital Left Blood Culture - Preliminary GNR 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 Reading Location: [facility] 12/16/24 1617 <Electronically signed by Jared Arevalo MD> Cosigner Signature (if applicable): CC: AGUILAR Arias~ Signed [facility] Work Phone: Evaluation + Plan note Future Appointments Appointment Date:06/11/2024 09:00:00 AM Scheduled Provider:CAYLA HOOPER Location:UROLOGY Appointment Type:URO OV Future Scheduled Tests Laboratory* Lipid Profile 01/29/24 * Complete Metabolic Panel 01/29/24 [facility] History and physical note Author Cruz Arciniega [facility] Note Date/Time December 14, 2024 3:1 2pm [facility] Medical Records Department [address] [facility] [place] [address] H&P Exam - Hospitalist 12/14/24 3016 MR#: [id number] Acct: [id number] Name: CONNORSDIANE A Rep #:[id number] : 1985 39 From: Cruz esposito DO PCP: AGUILAR Giles Status:REG E R Location: ED HPI - General General Date of Admission: 12/14/24 Date of Service: 12/14/24 Chief Complaint: Fevers and chills HPI Narrative DIANE CONNORS, is a 39 M who presented to [facility] ED on 12/14/2024 with fevers and chills. Patient had an ERCP done with Dr. Babin on 12/11. ERCP showed a dilated biliary system with choledocholithiasis; had complete removal of stone along with biliary sphincterotomy. Also had a previous temporary stents removed. Notably had ERCP done back in August with temporary stent placed at that time. He was hospitalized here back in August with very elevated LFTs. Dr. Babin followed at that time and there was concernfor possible drug-induced liver injury caused by supplements that he was taking at home. Patient and note that he stopped all of the supplements at that time and per outside labs in October his bilirubin and LFTs had returned to about normal. Patient tolerated recent ERCP without issue. However, the next evening he had an episode of abdominal pain that lasted for about 30 minutes andresolved on its own. He then began to have fevers and chills starting yesterdaythat have continued into this morning. In the ED today he was afebrile and hemodynamically stable. Labs notable for WBC count 14, T. bili 4.43, direct bili 3.43, AST 124, ALT 354, alk phos 149. CT abdomen pelvis showed a mild degree of central hepatobiliary ductal dilation and mild dilatation of the proximal portion of the common bile duct. Notably no evidence of pancreatitis and lipase normal. ED physician discussed with Dr. Babin who recommended admission for trending LFTs, possible repeat ERCP and IV antibiotics. Hospitalist was then contacted for admission. I saw the patient at bedside in the ED, was present. Patient was sitting back comfortably in bed, conversing normally, in no acute distress. He denied any abdominal pain or discomfort currently. He denied any fevers or chills since arriving to the ED. States he has not eaten or drank much over the past few days but has had no episodes of vomiting. Denies any other acute concerns at this time. [facility] Medical History Overweight (BMI 25.0-29.9) No pertinent past medical history Home Medications ?Medication ?Instructions ?Recorded ?Last Taken ?Type NK 09/04/24 Unknown History Allergy/AdvReac Type Severity Reaction Status Date / Time No Known Allergies Allergy Verified 12/14/24 10:16 Surgical History History of ERCP Social History Smoking Status: Never smoker alcohol intake: never ROS Constitutional Constitutional: Reports chills and fever(s); Denies fatigue or weakness Eyes Eyes: Denies change in vision Cardiovascular Cardiovascular: Denies chest pain Respiratory/Chest Respiratory/Chest: Denies cough, productive cough or shortness of breath at rest Gastrointestinal Gastrointestinal: Reports nausea; Denies abdominal pain, constipation, diarrhea or vomiting Vital Signs Vital Signs Vital Signs: 12/14/24 10:14 12/14/24 11:02 12/14/24 12:23 Temperature 97.5 F L 98.2 F Temperature Source Temporal Oral Pulse Rate 90 Respiratory Rate 16 Respiratory Effort Normal Blood Pressure 143/95 H Blood Pressure Mean 111 Pulse Ox 98 Oxygen Delivery Method Room Air 12/14/24 14:00 Temperature Temperature Source Pulse Rate 88 Respiratory Rate 17 Respiratory Effort Blood Pressure 138/84 H Blood Pressure Mean 102 Pulse Ox 94 Oxygen Delivery Method Room Air Weight Weight: 92.986 kg Body Mass Index (BMI) 29.4 Physical Exam Const alert, oriented x3, no apparent distress and average body habitus Constitutional Narrative: Pleasant younger male, sitting back comfortably in bed, conversing normally, in no acute distress. General Appearance: cooperative and comfortable HEENT normocephalic, head/scalp atraumatic, hearing grossly normal bilaterally, nasal mucous membranes and turbinates normal and moist oral mucous membranes Eyes PERRL, EOMs intact bilaterally and conjunctivae normal Neck full ROM Chest inspection of chest normal Resp normal respiratory effort, normal air movement, no use of accessory muscles and clear to auscultation bilaterally Cardio regular rate, regular rhythm, no murmurs and peripheral pulses 2+ throughout GI normal to inspection, nondistended, normoactive bowel sounds, soft to palpation,non-tender and non-distended Back/Spine normal ROM Extremity normal to inspection, full ROM and no pedal edema Skin no rashes or lesions noted Neuro moves all extremities and no focal motor deficits Speech: speech normal Motor Exam: strength 5/5 throughout Psych mental status grossly normal Results Lab / Micro Data 12/14/24 11:00 12/14/24 11:00 Labs: Laboratory Results - last 24 hr 12/14/24 11:00: WBC 14.0 H, RBC 5.29, Hgb 15.5, Hct 46.1, MCV 87.1, MCH 29.3, MCHC 33.6, RDW Std Deviation 40.8, RDW Coeff of Joanne 12.8, Plt Count 156, MPV 9.4, Immature Gran % (Auto) 0.900, Neut % (Auto) 90.5 H, Lymph % (Auto) 3.2 L, Cross % (Auto) 4.7, Eos % (Auto) 0.1, Baso % (Auto) 0.6, Absolute Neuts (auto) 12.7 H, Absolute Lymphs (auto) 0.45 L, Nucleated RBC % 0, Differential Comment COMMENT, Sodium 138, Potassium 3.7, Chloride 103, Carbon Dioxide 25.7, Anion Gap10, BUN 12, Creatinine 1.01, Estim Creat Clear Calc 110.26, Est GFR (MDRD) Non-Af 96, BUN/Creatinine Ratio 11.9, Glucose 123 H, Lactic Acid 1.1, Calcium 9.5, Total Bilirubin 4.43 H, Direct Bilirubin 3.43 H, AST 124 H, ALT 354 H, Alkaline Phosphatase 149 H, Total Protein 6.6, Albumin 3.7, Globulin 2.9, Lipase 26 12/14/24 12:43: Urine Color Yellow, Urine Clarity Clear, Urine pH 7.0, Ur Specific [place] 1.005, Urine Protein 30 H, Urine Glucose (UA) Normal, Urine Ketones Negative, Urine Occult Blood 10 H, Urine Nitrite Negative, Urine Bilirubin 3 H, Urine Urobilinogen 1 H, Ur Leukocyte Esterase 25 H, Urine RBC 0-5SEEN, Urine WBC 0-5 SEEN, Ur Squamous Epith Cells 0 SEEN, Urine Bacteria 2+, Urine Mucus 1+ Micro: Microbiology 12/14/24 12:25 Mucosa - Nose SARS-CoV-2, Influenza & RSV (PCR) - Final Imaging Radiology Impression Abdomen/Pelvis CT 12/14/24 11:10 IMPRESSION: Mild degree of central intrahepatic biliary ductal dilatation and mild dilatation of the proximal portion of the common bile duct although it decreases in size acetabular is the head of the pancreas. Reading Location: [facility] Chest X-Ray 12/14/24 12:19 IMPRESSION: 1. Mild left basilar airspace disease favorable for atelectasis/scarring howeverthis is not definite in the absence of prior exams to confirm stability. Correlate for mild pneumonia. 2. Additional description as above. Reading Location: [facility] Assessment & Plan Assessment/Plan (1) Hyperbilirubinemia: (2) Elevation of levels of liver transaminase levels: PLAN: Plan Patient is a 39-year-old male who presented to [facility] ED on 12/14/2024 with fevers and chills after recent ERCP. 1. 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 Admit under inpatient status to [facility]. GI consulted. See HPI for further details on recent GI history. In short, had ERCP done on 12/11 with choledocholithiasis removed with biliary tree swept, as well as removal of previously placed temporary stent. LFTs on 12/14 elevated and per family they had returned to about normal in October on labs from outside hospital. Cannot rule out infection, will treat with IV Zosyn for now. Lipase normal and no evidence of pancreatitis on CT, low concern for post ERCP pancreatitis. Monitordaily LFTs. N.p.o. at midnight for possible repeat ERCP tomorrow. 2. Overweight ? BMI 29 on admit. Encouraged lifestyle modifications. DVT prophylaxis: Lovenox CODE STATUS: Full code, verified Expected disposition: Home, 2 to 3 days Total clinical time spent by myself addressing the patient's medical issues, reviewing all the data, and collaborating with patient's care team: 55 minutes. Charges/Coding Visit Charges Inpatient E&M: 88273 Init Hosp L2 12/14/24 1512 <Electronically signed by Cruz Arciniega DO> Cosigner Signature (if applicable): CC: AGUILAR Arias; Dr. Cruz Arciniega DO~ Signed [facility] Work Phone: Hospital course Narrative No data available for this section [facility] Hospital Discharge instructions No data available for this section [facility] Progress note No data available for this section [facility] Summary Purpose Family History No Family History Records Found Advance Directives No Advanced Directives Records Found Advance Directive Response Recorded Date/ Time Living Will Yes December 09, 2024 10:19am Power of Crank Hand Yes December 09 10:19am Name of Medical Power of Crank Hand OLGA December 09, 2024 10:19am Living Will No September 04 10:48pm Power of Crank Hand No 2024 10:48pm Advance Directive Response Recorded Date/ Time Living Will Yes December 09, 2024 10:19am Power of Crank Hand Yes December 09 10:19am Name of Medical Power of Crank Hand OLGA December 09, 2024 10:19am Living Will No December 14, 2024 11:02am Power of Crank Hand No December 14 11:02am Living Will No September 04 10:48pm Power of Crank Hand No 2024 10:48pm Advance Directive Response Recorded Date/ Time Living Will Yes December 09, 2024 10:19am Do you have a Healthcare Power of Crank Hand? Yes December 09, 2024 10:19am Name of Medical Power of Crank Hand OLGA December 09, 2024 10:19am Living Will Yes December 14, 2024 4:44pm Do you have a Healthcare Power of Crank Hand? Yes December 14, 2024 4:44pm Name of Medical Power of Crank Hand Olga Connors December 14, 2024 4:44pm Living Will No September 04 10:48pm Do you have a Healthcare Power of Crank Hand? No 2024 10:48pm Advance Directive Response Recorded Date/ Time Living Will Yes December 09, 2024 10:19am Do you have a Healthcare Power of Crank Hand? Yes December 09, 2024 10:19am Name of Medical Power of Crank Hand OLGA December 09, 2024 10:19am Living Will Yes December 14, 2024 4:44pm Do you have a Healthcare Power of Crank Hand? Yes December 14, 2024 4:44pm Name of Medical Power of Crank Hand Olga Connors December 14, 2024 4:44pm Chief Complaint and Reason for Visit Chief Complaint Admit Date CHOLEDOCHLITHIASIS WITH SEVERE JAUNDICE 2024 9:07pm CHOLEDOCHLITHIASIS WITH SEVERE JAUNDICE 2024 10:03pm ERCP PROTOTCOL September 05, 2024 1 1:11am CHOLEDOCHLITHIASIS WITH SEVERE JAUNDICE September 05, 2024 11:36am CHOLEDOCHLITHIASIS WITH SEVERE JAUNDICE September 06, 2024 12:07pm CHOLEDOCHLITHIASIS WITH SEVERE JAUNDICE September 07, 2024 8:33am CHOLEDOCHLITHIASIS WITH SEVERE JAUNDICE September 07, 2024 11:32am [facility] Jaundice August 7:58am INT LABS September 11, 2024 8:38am Reason for Visit Admit Date Hyperbilirubinemia 2024 9 :07pm Jaundice 2024 9 :07pm Choledocholithiasis 2024 9 :07pm Overweight (BMI 25.0-29.9) 2024 9:07pm Drug-induced liver injury September 11, 2024 7:58am Hyperbilirubinemia September 11, 2024 7:58am Choledocholithiasis September 11, 2024 7:58am Cholelithiases December 11, 2024 12: 28pm Hyperbilirubinemia December 11, 2024 12: 28pm Jaundice December 11, 2024 12: 28pm Chief Complaint Admit Date CHOLEDOCHLITHIASIS WITH SEVERE JAUNDICE 2024 9:07pm CHOLEDOCHLITHIASIS WITH SEVERE JAUNDICE 2024 10:03pm ERCP PROTOTCOL September 05, 2024 1 1:11am CHOLEDOCHLITHIASIS WITH SEVERE JAUNDICE September 05, 2024 11:36am CHOLEDOCHLITHIASIS WITH SEVERE JAUNDICE September 06, 2024 12:07pm CHOLEDOCHLITHIASIS WITH SEVERE JAUNDICE September 07, 2024 8:33am CHOLEDOCHLITHIASIS WITH SEVERE JAUNDICE September 07, 2024 11:32am [facility] Jaundice August 7:58am INT LABS September 11, 2024 8:38am RECENT ERCP W FEVERS December 14, 2024 2: 45pm Reason for Visit Admit Date Hyperbilirubinemia 2024 9 :07pm Jaundice 2024 9 :07pm Choledocholithiasis 2024 9 :07pm Overweight (BMI 25.0-29.9) 2024 9:07pm Drug-induced liver injury September 11, 2024 7:58am Hyperbilirubinemia September 11, 2024 7:58am Choledocholithiasis September 11, 2024 7:58am Cholelithiases December 11, 2024 12: 28pm Hyperbilirubinemia December 11, 2024 12: 28pm Jaundice December 11, 2024 12: 28pm Elevation of levels of liver transaminas e levels December 14, 2024 2:45pm Hyperbilirubinemia December 14, 2024 2:4 5pm Chief Complaint Admit Date CHOLEDOCHLITHIASIS WITH SEVERE JAUNDICE 2024 9:07pm CHOLEDOCHLITHIASIS WITH SEVERE JAUNDICE 2024 10:03pm ERCP PROTOTCOL September 05, 2024 1 1:11am CHOLEDOCHLITHIASIS WITH SEVERE JAUNDICE September 05, 2024 11:36am CHOLEDOCHLITHIASIS WITH SEVERE JAUNDICE September 06, 2024 12:07pm CHOLEDOCHLITHIASIS WITH SEVERE JAUNDICE September 07, 2024 8:33am CHOLEDOCHLITHIASIS WITH SEVERE JAUNDICE September 07, 2024 11:32am [facility] Jaundice August 7:58am INT LABS September 11, 2024 8:38am PREOP December 11, 2024 12: 55pm RECENT ERCP W FEVERS December 14, 2024 2: 45pm RECENT ERCP W FEVERS December 15, 2024 8: 01am RECENT ERCP W FEVERS December 15, 2024 5: 34pm RECENT ERCP W FEVERS December 16, 2024 12 :11pm RECENT ERCP W FEVERS December 16, 2024 2: 13pm Reason for Visit Admit Date Hyperbilirubinemia 2024 9 :07pm Jaundice 2024 9 :07pm Choledocholithiasis 2024 9 :07pm Overweight (BMI 25.0-29.9) 2024 9:07pm Drug-induced liver injury September 11, 2024 7:58am Hyperbilirubinemia September 11, 2024 7:58am Choledocholithiasis September 11, 2024 7:58am Cholelithiases December 11, 2024 12: 28pm Hyperbilirubinemia December 11, 2024 12: 28pm Jaundice December 11, 2024 12: 28pm Bacteremia due to Gram-negative bacteria December 14, 2024 2:45pm Elevation of levels of liver transaminas e levels December 14, 2024 2:45pm Hyperbilirubinemia December 14, 2024 2:4 5pm Choledocholithiasis December 14, 2024 2:4 5pm Chief Complaint Admit Date CHOLEDOCHLITHIASIS WITH SEVERE JAUNDICE 2024 9:07pm CHOLEDOCHLITHIASIS WITH SEVERE JAUNDICE September 07, 2024 8:33am CHOLEDOCHLITHIASIS WITH SEVERE JAUNDICE September 07, 2024 11:32am [facility] Jaundice August 7:58am INT LABS September 11, 2024 8:38am PREOP December 11, 2024 12: 55pm RECENT ERCP W FEVERS December 14, 2024 2: 45pm RECENT ERCP W FEVERS December 15, 2024 8: 01am RECENT ERCP W FEVERS December 15, 2024 5: 34pm RECENT ERCP W FEVERS December 16, 2024 12 :11pm RECENT ERCP W FEVERS December 16, 2024 2: 13pm [facility], [facility] FU December 31, 2024 9:50 am Hospital December 31, 2024 10:5 5am INT ORDER December 31, 2024 12:1 3pm Reason for Visit Admit Date Jaundice 2024 9 :07pm Choledocholithiasis 2024 9 :07pm Hyperbilirubinemia 2024 9 :07pm Overweight (BMI 25.0-29.9) 2024 9:07pm Drug-induced liver injury September 11, 2024 7:58am Choledocholithiasis September 11, 2024 7:58am Hyperbilirubinemia September 11, 2024 7:58am Cholelithiases December 11, 2024 12: 28pm Jaundice December 11, 2024 12: 28pm Hyperbilirubinemia December 11, 2024 12: 28pm Bacteremia due to Gram-negative bacteria December 14, 2024 2:45pm Choledocholithiasis December 14, 2024 2:4 5pm Elevation of levels of liver transaminas e levels December 14, 2024 2:45pm Hyperbilirubinemia December 14, 2024 2:4 5pm Choledocholithiasis December 31, 2024 9:50 am Hyperbilirubinemia December 31, 2024 9:50 am Cholelithiases December 31, 2024 10:5 5am Jaundice December 31, 2024 10:5 5am Chief Complaint Admit Date HYPERBILIRUBINEMIA December 11, 2024 9:0 0am PREOP December 11, 2024 12: 55pm RECENT ERCP W FEVERS December 14, 2024 2: 45pm RECENT ERCP W FEVERS December 15, 2024 8: 01am RECENT ERCP W FEVERS December 15, 2024 5: 34pm RECENT ERCP W FEVERS December 16, 2024 12 :11pm RECENT ERCP W FEVERS December 16, 2024 2: 13pm [facility], [facility] FU December 31, 2024 9:50 am Hospital FU December 31, 2024 10:5 5am INT ORDER December 31, 2024 12:1 3pm K80.80 R53.83 January 05, 2025 2:57 pm Calculus of gallbladder with acute arthur cystitis w February 24, 2025 10:38am Reason for Visit Admit Date Cholelithiases December 11, 2024 12: 28pm Jaundice December 11, 2024 12: 28pm Hyperbilirubinemia December 11, 2024 12: 28pm Bacteremia due to Gram-negative bacteria December 14, 2024 2:45pm Choledocholithiasis December 14, 2024 2:4 5pm Elevation of levels of liver transaminas e levels December 14, 2024 2:45pm Hyperbilirubinemia December 14, 2024 2:4 5pm Choledocholithiasis December 31, 2024 9:50 am Hyperbilirubinemia December 31, 2024 9:50 am Cholelithiases December 31, 2024 10:5 5am Jaundice December 31, 2024 10:5 5am Additional Source Comments Patient Care team informatio n (unrecognized section and content) Team Status: Active Member Role Status Dates Shira Arias RESIDENCE HALL DIRECTOR, RESIDENCE HALL DIRECTOR-C Primary Care Provider Active Team Status: Active Member Role Status Dates Shira Arias RESIDENCE HALL DIRECTOR, RESIDENCE HALL DIRECTOR-C Primary Care Provider Active Start: December 11, 2024 Dr. Pedro Lopez MD Attending Provider Active Start: December 11, 2024 Dr. Pedro Lopez MD Referring Provider Active Start: December 11, 2024 Team Status: Inactive Member Role Status Dates Shira Arias RESIDENCE HALL DIRECTOR, RESIDENCE HALL DIRECTOR-C Primary Care Provider Active Start: December 11, 2024 End: December 11, 2024 Shira Arias RESIDENCE HALL DIRECTOR, RESIDENCE HALL DIRECTOR-C Referring Provider Active Start: December 11, 2024 End: December 11, 2024 Dr. Denys Babin DO Attending Provider Active Start: December 11, 2024 End: December 11, 2024 Team Status: Active Member Role Status Dates Shira Arias NP, RESIDENCE HALL DIRECTOR-C Primary Care Provider Active Start: December 11, 2024 Shira Arias RESIDENCE HALL DIRECTOR, RESIDENCE HALL DIRECTOR-C Referring Provider Active Start: December 11, 2024 Dr. Denys Babin DO Attending Provider Active Start: December 11, 2024 Dr. Denys Babin DO Other Provider Active St art: December 11, 2024 Team Status: Active Member Role Status Dates Shira Arias NP, RESIDENCE HALL DIRECTOR-C Primary Care Provider Active Start: December 11, 2024 End: December 11, 2024 Dr. Jose Lubin MD Attending Provider Active S tart: December 11, 2024 End: December 11, 2024 Dr. Denys Babin DO Referring Provider Active Start: December 11, 2024 End: December 11, 2024 Team Status: Inactive Member Role Status Dates Shira Arias NP, RESIDENCE HALL DIRECTOR-C Primary Care Provider Active Start: December 14, 2024 End: December 16, 2024 Dr. Petar Barrera DO Emergency Provider Active Start: December 14, 2024 End: December 16, 2024 Dr. Cruz Arciniega DO Admit Provider Active Start: December 14, 2024 End: December 16, 2024 Dr. Cruz Arciniega , Other Provider Active Start: December 14, 2024 End: December 16, 2024 Dr. Francesco Lui MD Attending Provider Active Start: December 14, 2024 End: December 16, 2024 Dr. Camron Shoemaker MD Other Provider Active Sta rt: December 14, 2024 End: December 16, 2024 Dr. Jared Arevalo MD Other Provider Active Start: December 14, 2024 End: December 16, 2024 Team Status: Active Member Role Status Dates Shira Arias RESIDENCE HALL DIRECTOR, RESIDENCE HALL DIRECTOR-C Primary Care Provider Active Start: December 15, 2024 Dr. Petar Barrera DO Emergency Provider Active Start: December 15, 2024 Dr. Cruz Arciniega DO Admit Provider Active Start: December 15, 2024 Dr. Cruz Arciniega DO Other Provider Active Start: December 15, 2024 Dr. Francesco Lui MD Attending Provider Active Start: December 15, 2024 Dr. Francesco Lui MD Other Provider Active Sta rt: December 15, 2024 Team Status: Active Member Role Status Dates Shira Arias RESIDENCE HALL DIRECTOR, RESIDENCE HALL DIRECTOR-C Primary Care Provider Active Start: December 15, 2024 Dr. Petar Barrera DO Emergency Provider Active Start: December 15, 2024 Dr. Cruz Arciniega DO Admit Provider Active Start: December 15, 2024 Dr. Cruz Arciniega DO Other Provider Active Start: December 15, 2024 Dr. Francesco Lui MD Referring Provider Active Start: December 15, 2024 Dr. Francesco Lui MD Other Provider Active Sta rt: December 15, 2024 Dr. Denys Babin , Attending Provider Active Start: December 15, 2024 Team Status: Active Member Role Status Dates Shira Arias RESIDENCE HALL DIRECTOR, RESIDENCE HALL DIRECTOR-C Primary Care Provider Active Start: December 16, 2024 Dr. Petar Barrera DO Emergency Provider Active Start: December 16, 2024 Dr. Cruz Arciniega DO Admit Provider Active Start: December 16, 2024 Dr. Cruz Arciniega DO Other Provider Active Start: December 16, 2024 Dr. Francesco Lui MD Referring Provider Active Start: December 16, 2024 Dr. Francesco Lui MD Other Provider Active Sta rt: December 16, 2024 Dr. Camron Shoemaker MD Attending Provider Active Start: December 16, 2024 Dr. Camron Shoemaker MD Other Provider Active Sta rt: December 16, 2024 Dr. Jared Arevalo MD Other Provider Active Start: December 16, 2024 Team Status: Active Member Role Status Dates Shira Arias NP, RESIDENCE HALL DIRECTOR-C Primary Care Provider Active Start: December 16, 2024 Dr. Petar Barrera DO Emergency Provider Active Start: December 16, 2024 Dr. Cruz Arciniega DO Admit Provider Active Start: December 16, 2024 Dr. Cruz Arciniega DO Other Provider Active Start: December 16, 2024 Dr. Francesco Lui MD Attending Provider Active Start: December 16, 2024 Dr. Francseco Lui MD Other Provider Active Sta rt: December 16, 2024 Dr. Camron Shoemaker MD Other Provider Active Sta rt: December 16, 2024 Dr. Jared Arevalo MD Other Provider Active Start: December 16, 2024 Team Status: Inactive Member Role Status Dates Shira Arias RESIDENCE HALL DIRECTOR, RESIDENCE HALL DIRECTOR-C Primary Care Provider Active Start: December 31, 2024 End: December 31, 2024 Shira Arias NP, RESIDENCE HALL DIRECTOR-C Referring Provider Active Start: December 31, 2024 End: December 31, 2024 Dr. Camron Shoemaker MD Attending Provider Active Start: December 31, 2024 End: December 31, 2024 Team Status: Inactive Member Role Status Dates Shira Arias RESIDENCE HALL DIRECTOR, RESIDENCE HALL DIRECTOR-C Primary Care Provider Active Start: December 31, 2024 End: December 31, 2024 Shira Arias NP, RESIDENCE HALL DIRECTOR-C Referring Provider Active Start: December 31, 2024 End: December 31, 2024 Cayla Quiñonez NP-C Attending Provider Active Start: December 31, 2024 End: December 31, 2024 Team Status: Inactive Member Role Status Dates Shira Arias NP, RESIDENCE HALL DIRECTOR-C Primary Care Provider Active Start: December 31, 2024 End: December 31, 2024 Cayla Quiñonez RESIDENCE HALL DIRECTOR-C Attending Provider Active Start: December 31, 2024 End: December 31, 2024 Cayla Quiñonez RESIDENCE HALL DIRECTOR-C Referring Provider Active Start: December 31, 2024 End: December 31, 2024 Team Status: Active Member Role Status Dates Shira Arias NP, RESIDENCE HALL DIRECTOR-C Primary Care Provider Active Start: January 05, 2025 Michela Sal RESIDENCE HALL DIRECTOR, RESIDENCE HALL DIRECTOR-C Attending Provider Active Start: January 05, 2025 Micheladomonique Sal RESIDENCE HALL DIRECTOR, RESIDENCE HALL DIRECTOR-C Referring Provider Active Start: January 05, 2025 Team Status: Inactive Member Role Status Dates Shira Salvadorarsenio RESIDENCE HALL DIRECTOR, RESIDENCE HALL DIRECTOR-C Primary Care Provider Active Start: February 24, 2025 End: February 24, 2025 Michela Aye Sal RESIDENCE HALL DIRECTOR, RESIDENCE HALL DIRECTOR-C Attending Provider Active Start: February 24, 2025 End: February 24, 2025 Michela Aye Sal RESIDENCE HALL DIRECTOR, RESIDENCE HALL DIRECTOR-C Referring Provider Active Start: February 24, 2025 End: February 24, 2025 Team Status: Inactive Member Role Status Dates Shira Juana RESIDENCE HALL DIRECTOR, RESIDENCE HALL DIRECTOR-C Primary Care Provider Active Start: 2024 End: September 07, 2024 Dr. Rod Ross , Emergency Provider Active Start : 2024 End: September 07, 2024 Dr. Seth Paiz , DO Admit Provider Active Start: 2024 End: September 07, 2024 Dr. Steh Paiz DO Other Provider Active Start: 2024 End: September 07, 2024 Dr. Edwina Kimball , Attending Provider Active S tart: 2024 End: September 07, 2024 Dr. Cruz Arciniega , Other Provider Active Start: 2024 End: September 07, 2024 Team Status: Active Member Role Status Dates Shira Juana [place], RESIDENCE HALL DIRECTOR-C Primary Care Provider Active Start: 2024 Dr. Rod Ross DO Emergency Provider Active Start : 2024 Dr. Seth Paiz DO Admit Provider Active Start: 2024 Dr. Seth Paiz DO Referring Provider Active Start: 2024 Dr. Seth Paiz DO Other Provider Active Start: 2024 Dr. Cruz Arciniega , Other Provider Active Start: 2024 Dr. Denys Babin , Attending Provider Active Start: 2024 Team Status: Active Member Role Status Dates Shira Arias NP, RESIDENCE HALL DIRECTOR-C Primary Care Provider Active Start: September 05, 2024 End: September 05, 2024 Dr. Jose Lubin MD Attending Provider Active S tart: September 05, 2024 End: September 05, 2024 Dr. Jose Lubin MD Referring Provider Active S tart: September 05, 2024 End: September 05, 2024 Team Status: Active Member Role Status Dates Shira Arias RESIDENCE HALL DIRECTOR, RESIDENCE HALL DIRECTOR-C Primary Care Provider Active Start: September 05, 2024 Dr. Rod Ross , DO Emergency Provider Active Start : September 05, 2024 Dr. Seth Paiz , DO Admit Provider Active Start: September 05, 2024 Dr. Seth Paiz , DO Other Provider Active Start: September 05, 2024 Dr. Cruz Arciniega , DO Attending Provider Active Start: September 05, 2024 Dr. Cruz Arciniega , DO Other Provider Active Start: September 05, 2024 Team Status: Active Member Role Status Dates Shira Arias RESIDENCE HALL DIRECTOR, RESIDENCE HALL DIRECTOR-C Primary Care Provider Active Start: September 05, 2024 Dr. Denys Babin , DO Attending Provider Active Start: September 05, 2024 Dr. Seth Paiz , DO Referring Provider Active Start: September 05, 2024 Team Status: Active Member Role Status Dates Shira Arias RESIDENCE HALL DIRECTOR, RESIDENCE HALL DIRECTOR-C Primary Care Provider Active Start: September 06, 2024 Dr. Rod Ross , DO Emergency Provider Active Start : September 06, 2024 Dr. Seth Paiz , DO Admit Provider Active Start: September 06, 2024 Dr. Seth Paiz , DO Other Provider Active Start: September 06, 2024 Dr. Cruz Arciniega , DO Attending Provider Active Start: September 06, 2024 Dr. Cruz Arciniega , DO Other Provider Active Start: September 06, 2024 Team Status: Active Member Role Status Dates Shira Arias RESIDENCE HALL DIRECTOR, RESIDENCE HALL DIRECTOR-C Primary Care Provider Active Start: September 07, 2024 Dr. Rod Ross , DO Emergency Provider Active Start : September 07, 2024 Dr. Seth Paiz , DO Admit Provider Active Start: September 07, 2024 Dr. Seth Paiz , DO Referring Provider Active Start: September 07, 2024 Dr. Seth Paiz , DO Other Provider Active Start: September 07, 2024 Dr. Edwina Kimball , DO Other Provider Active Start : September 07, 2024 Dr. Cruz Arciniega , DO Other Provider Active Start: September 07, 2024 Dr. Denys Babin , DO Attending Provider Active Start: September 07, 2024 Team Status: Active Member Role Status Dates Shira Arias RESIDENCE HALL DIRECTOR, RESIDENCE HALL DIRECTOR-C Primary Care Provider Active Start: September 07, 2024 Dr. Rod Ross , DO Emergency Provider Active Start : September 07, 2024 Dr. Seth Paiz , DO Admit Provider Active Start: September 07, 2024 Dr. Seth Paiz , DO Other Provider Active Start: September 07, 2024 Dr. Edwina Kimball , DO Attending Provider Active S tart: September 07, 2024 Dr. Edwina Kimball , DO Other Provider Active Start : September 07, 2024 Dr. Cruz Arciniega , DO Other Provider Active Start: September 07, 2024 Team Status: Inactive Member Role Status Dates Shira Juana RESIDENCE HALL DIRECTOR, RESIDENCE HALL DIRECTOR-C Primary Care Provider Active Start: September 11, 2024 End: September 11, 2024 Shira Arias RESIDENCE HALL DIRECTOR, RESIDENCE HALL DIRECTOR-C Referring Provider Active Start: September 11, 2024 End: September 11, 2024 Dr. Francesco Lui MD Attending Provider Active Start: September 11, 2024 End: September 11, 2024 Team Status: Inactive Member Role Status Dates Shira Juana RESIDENCE HALL DIRECTOR, RESIDENCE HALL DIRECTOR-C Primary Care Provider Active Start: September 11, 2024 End: September 11, 2024 Dr. Francesco Lui MD Attending Provider Active Start: September 11, 2024 End: September 11, 2024 Dr. Francesco Lui MD Referring Provider Active Start: September 11, 2024 End: September 11, 2024 Team Status: Active Member Role Status Dates Shira Arias RESIDENCE HALL DIRECTOR, RESIDENCE HALL DIRECTOR-C Primary Care Provider Active Start: December 14, 2024 Dr. Petar Barrera DO Emergency Provider Active Start: December 14, 2024 Dr. Cruz Arciniega , Admit Provider Active Start: December 14, 2024 Dr. Cruz Arciniega , Attending Provider Active Start: December 14, 2024 Team Status: Active Member Role Status Dates Shira Arias RESIDENCE HALL DIRECTOR, RESIDENCE HALL DIRECTOR-C Primary Care Provider Active Start: December 15, 2024 Dr. Petar Barrera DO Emergency Provider Active Start: December 15, 2024 Dr. Cruz Arciniega , DO Admit Provider Active Start: December 15, 2024 Dr. Cruz Arciniega DO Other Provider Active Start: December 15, 2024 Dr. Francesco Lui MD Other Provider Active Sta rt: December 15, 2024 Dr. Denys Babin DO Attending Provider Active Start: December 15, 2024 Team Status: Active Member Role Status Dates Shira Arias NP, RESIDENCE HALL DIRECTOR-C Primary Care Provider Active Start: December 16, 2024 Dr. Petar Barrera DO Emergency Provider Active Start: December 16, 2024 Dr. Cruz Arciniega DO Admit Provider Active Start: December 16, 2024 Dr. Cruz Arciniega DO Other Provider Active Start: December 16, 2024 Dr. Francesco Lui MD Other Provider Active Sta rt: December 16, 2024 Dr. Camron Shoemaker MD Attending Provider Active Start: December 16, 2024 Dr. Camrno Shoemaker MD Other Provider Active Sta rt: December 16, 2024 Dr. Jared Arevalo MD Other Provider Active Start: December 16, 2024 (unrecognized sect ion and content) No Status Records FoundNo Status Records FoundNo Status Records FoundNo Status Records Found INFORMATION SOURCE (unrecogn ized section and content) DATE CREATED AUTHOR 05/29/2024 [facility] ([place]) DATE CREATED AUTHOR AUTHOR'S ORGANIZ ATION 08/16/2024 [facility] DATE CREATED AUTHOR AUTHOR'S ORGANIZ ATION 02/05/[address] [facility] DATE CREATED AUTHOR AUTHOR'S ORGANIZ ATION 03/16/2025 [facility] FOR RECORDS PERTAINING TO PATIENTS WHO ARE OR HAVE BEEN ENROLLED IN A CHEMICAL DEPENDENCY/SUBSTANCEABUSE PROGRAM, SOME INFORMATION MAY BE OMITTED. This clinical summary was aggregated from multiple sources. Caution should be exercised in using it in the provision of clinical care. This summary normalizes information from multiple sources, and as a consequence, information in this document may materially change the coding, format and clinical context of patient data. In addition, data may be omitted in some cases. CLINICAL DECISIONS SHOULD BE BASED ON THE PRIMARY CLINICAL RECORDS. The [employer] [facility]. provides no warranty or guarantee of the accuracy or completeness of information in this document.
[2025-03-17] MEDS: Piperacil/Tazobactam 3.375 GM in 0.9% Normal Saline (50mL MB+) 50 ML IV (21:30)
[2025-03-18] VITALS (9 sets, daily range): BP systolic 119–143; BP diastolic 84–93; PULSE 84–97; RESP 16–18; TEMP 36.6–37.2; O2SAT 16–98
[2025-03-18] MEDS: Piperacil/Tazobactam 3.375 GM in 0.9% Normal Saline (50mL MB+) 50 ML IV ×2 (06:18→14:47)
[2025-03-18 06:47] LABS: Absolute Lymphocyte Count 1.52 X10^3/uL (0.83-4.51); Absolute Neutrophil Count 6.8 X10^3/uL (2.0-7.7); Basophil# 0.02 X10^3/uL; Basophil% 0.2 % (0-1); Hematocrit 43.6 % (40-54); Hemoglobin 14.8 g/dL (13.0-16.5); Lymphocyte # 1.52 X10^3/ul (0.83-4.51); Lymphocyte % 16.5 % (19-41); Mean Corp Hgb Conc 33.9 g/dL (32-36); Mean Corpuscular Hgb 29.4 pg (27.0-32.0); Mean Corpuscular Volume 86.5 fL (80-94); Mean Platelet Vol. 8.7 fl (6.2-12.0); Monocyte# 0.77 X10^3/uL; Monocyte% 8.4 % (0-10); NRBC Flagged by Analyzer 0 % (0-5); Neutrophil # 6.84 X10^3/uL (2.7-7.7); Neutrophil % 74.4 % (47-70); Platelet Count 264 K/mm3 (150-450); RBC Distribution Width CV 13.6 % (11.6-14.6); RBC Distribution Width SD 42.8 fl (35.1-43.9); Red Blood Count 5.04 M/mm3 (4.6-6.2); White Blood Count 9.2 K/mm3 (4.4-11.0)
--- NOTE | 2025-03-18 07:00 | PN.SURG_ITS ---
Subjective Subjective Patient seen and examined during AM rounds. He states that he has some discomfort with movement but otherwise is doing well. Denies any issues with nausea or vomiting response to his liquid diet. Objective Data Objective Data Vital Signs: Vital Signs Temp Pulse Resp BP Pulse Ox O2 Del Method 98 F 84 16 120/86 H 98 Room Air 03/18/25 06:20 03/18/25 06:20 03/18/25 06:20 03/18/25 06:20 03/18/25 06:20 03/18/25 06:20 Oxygen Delivery Method Room Air Weight: 212 lb 4.882 oz Body Mass Index (BMI) 30.4 Intake & Output: Intake and Output for Last 24 Hours 03/16/25 03/17/25 03/18/25 23:59 23:59 23:59 Intake Total 1350 / 1350 350 / 350 Output Total 50 / 50 20 / 20 Balance 1300 / 1300 330 / 330 Lab / Micro Data 03/18/25 06:27 03/18/25 06:27 Labs: Laboratory Results - last 24 hr 03/18/25 06:27: WBC 9.2, RBC 5.04, Hgb 14.8, Hct 43.6, MCV 86.5, MCH 29.4, MCHC 33.9, RDW Std Deviation 42.8, RDW Coeff of Joanne 13.6, Plt Count 264, MPV 8.7, Immature Gran % (Auto) 0.500, Neut % (Auto) 74.4 H, Lymph % (Auto) 16.5 L, [place] % (Auto) 8.4, Eos % (Auto) 0.0, Baso % (Auto) 0.2, Absolute Neuts (auto) 6.8, Absolute Lymphs (auto) 1.52, Nucleated RBC % 0 Physical Exam Const oriented x3 and no apparent distress Resp normal respiratory effort GI GI Narrative: Operative dressings remain intact without strikethrough. Right upper quadrant drain with some thin serosanguineous output and clot in the line. No clear evidence of bile. Soft, nondistended, appropriately tender with palpation about incisions Assessment & Plan Assessment/Plan (1) Status post laparoscopic cholecystectomy: PLAN: Patient is 39-year-old male postoperative day 1 from laparoscopic subtotal cholecystectomy due to severe chronic cholecystitis related to history of multiple bouts of cholangitis. His pain is well-controlled and his labs are as expected with mild elevations of LFTs?likely owing to ablation of the back of the gallbladder during surgery yesterday. Will plan to advance his diet, transition to oral antibiotics, and provide drain teaching anticipation of discharge later today. Camron Shoemaker MD General Surgery Endocrine Surgery Pager: [facility] [address] [place] [address], [address] [place] [address] Office: [phone] Charges/Coding Visit Charges Inpatient E&M: 58502 Subs Hosp L2
[2025-03-18] MEDS: HYDROmorphone 0.5 MG/0.5 ML SYRINGE IV (07:53)
[2025-03-18 07:57] LABS: ALB/GLOB Ratio 1.5 RATIO (0.9-2.4); AST(SGOT) 43 U/L (<=37); Alanine Aminotransfer ALT/SGPT 65 U/L (<=46); Alkaline Phosphatase 64 U/L (40-129); Anion Gap 10 (5-15); BUN 12 mg/dL (4-19); BUN/Creat Ratio 11.9 RATIO (10-20); Calcium,Total 9.2 mg/dL (7.6-11.0); Carbon Dioxide 25.4 mmol/L (21.0-32.0); Chloride 104 mmol/L (98-108); EST Glomerular Filtration Rate 97 (>60); Estimated Creatinine Clearance 113.19 ml/min (50-250); Globulin 2.6 g/dL (2.2-4.2); Glucose 114 mg/dL (70-99); Protein, Total 6.6 g/dL (5.9-8.4); Sodium Level 139 mmol/L (133-145); Total Bilirubin 0.85 mg/dL (0.00-1.30)
[2025-03-18] MEDS: 0.9% Normal Saline (1000mL) 1,000 ML 125 ML IV (07:57)
--- NOTE | 2025-03-18 11:55 | DCINST_ITS ---
Discharge Instructions Diet Discharge Diet: No restrictions (Recommend low-fat) DC O2, CPAP, BIPAP needs Home O2 Discharge instructions: No Dressing / Incision Discharge Activity: May Not Drive (No driving while using narcotic pain medication) and May Shower (Postoperative day 1) May shower in (days): 1 Ice area for (Minutes): 20 Lifting Restrictions: No lifting greater than 15 pounds for 2 weeks after surgery Dressing / Incision Call your doctor if your incision/area has: Continuous Slow Oozing, Sudden Increased Bleeding, Increased Pain/ Swelling, Increased Redness, Foul Smelling Discharge and Swelling at the incision site Call your doctor if you observe: Fever of 101 or Higher Suture Line Care: Avoid Pulling/Pushing Remove Dressing in: 1 day (Please leave Steri-Strips intact until they fall off spontaneously or are taken off at your follow-up visit) Cleanse incision/area with: Soap & Water Drain: Suction (Please empty and record volumes daily) Follow Up Care Please Follow Up With: Camron Shoemaker MD When: 7-10days postop Test Results: Test results from this visit will be discussed in further detail at your follow- up appointment, if applicable. Discharge Plan Admission Admit Date/Time: 03/17/25 15:40 Primary Reason for Your Visit: Cholecystectomy Attending Provider: Camron Shoemaker Primary Care Provider: Shira Arias NP Consulting Providers: Gray López Discharge Orders/Prescriptions Prescriptions: New oxycodone 5 mg Tablet 5 mg PO Q6H PRN PRN (Reason: Pain Score 6-10) 3 Days Qty: 10 0RF amoxicillin-pot clavulanate 875-125 mg tablet 1 tab PO Q12H 3 Days Qty: 6 0RF Referrals / Follow Up: Shira Arias NP, MANAGER OF RADIOLOGY-C [Primary Care Provider] - Disposition Disposition (needs filled in before D/C Order can be placed): Home, Self Care
--- NOTE | 2025-03-18 12:01 | PCM.DC.SUM ---
Providers Date of Admission: 03/17/25 Primary Care Physician: ROLY GilesC Reason For Visit: Laparoscopic, Cholecystectomy with IOC and umbilic Medications at Discharge Home Medications amoxicillin 875 mg-potassium clavulanate 125 mg tablet 1 tab PO Q12H 3 days #6 tabs 03/18/25 oxycodone 5 mg tablet 5 mg PO Q6H PRN PRN Pain Score 6-10 3 days #10 tabs 03/18/25 Hospital Course Operations cholecystecomy (Laparoscopic subtotal cholecystectomy with drain placement) Procedures None Summary of Care Provided Hospital Course: Patient is a 39-year-old male who is scheduled for outpatient laparoscopic cholecystectomy on 01/15/2025. During the course of the operation he was found to have severe chronic cholecystitis that precluded a clear view of his biliary anatomy so a subtotal cholecystectomy with drain placement was performed. Patient was admitted to the hospital for observation postoperatively in the abundance of caution and for eventual drain teaching. Morning of postoperative day 1 patient's pain was well-controlled and he had tolerated a liquid diet so his diet was advanced. Empiric antibiotic therapy was continued but transition toward oral route. Patient was provided drain teaching and discharged in improved condition with expectation set for outpatient follow-up. He was instructed to perform 24-hour output measurements from his drain and bring a log to his follow-up visit. He was advised to cancel a scheduled appointment with GI for repeat ERCP with stent removal until we could verify the absence of a bile leak. Physical Exam Const alert, oriented x3 and no apparent distress Resp normal respiratory effort GI GI Narrative: Nondistended, operative dressings intact without strikethrough, appropriately tender to palpation, right upper quadrant drain with serosanguineous output. No evidence of bile. Weight / BMI Weight Weight: 212 lb 4.882 oz Body Mass Index (BMI) 30.4 ABG / Lab / Microbiology Data 03/18/25 06:27 03/18/25 06:27 Laboratory: Laboratory Results - last 24 hr 03/18/25 06:27: WBC 9.2, RBC 5.04, Hgb 14.8, Hct 43.6, MCV 86.5, MCH 29.4, MCHC 33.9, RDW Std Deviation 42.8, RDW Coeff of Joanne 13.6, Plt Count 264, MPV 8.7, Immature Gran % (Auto) 0.500, Neut % (Auto) 74.4 H, Lymph % (Auto) 16.5 L, [place] % (Auto) 8.4, Eos % (Auto) 0.0, Baso % (Auto) 0.2, Absolute Neuts (auto) 6.8, Absolute Lymphs (auto) 1.52, Nucleated RBC % 0, Sodium 139, Potassium 4.0, Chloride 104, Carbon Dioxide 25.4, Anion Gap 10, BUN 12, Creatinine 1.00, Estim Creat Clear Calc 113.19, Est GFR (MDRD) Non-Af 97, BUN/Creatinine Ratio 11.9, Glucose 114 H, Calcium 9.2, Total Bilirubin 0.85, AST 43 H, ALT 65 H, Alkaline Phosphatase 64, Total Protein 6.6, Albumin 4.0, Globulin 2.6, Albumin/Globulin Ratio 1.5 D/C Instructions Discharge Diet: No restrictions May shower in (days): 1 Ice area for (Minutes): 20 Call your doctor if your incision/area has: Continuous Slow Oozing, Sudden Increased Bleeding, Increased Pain/ Swelling, Increased Redness, Foul Smelling Discharge and Swelling at the incision site Call your doctor if you observe: Fever of 101 or Higher Suture Line Care: Avoid Pulling/Pushing Cleanse incision/area with: Soap & Water Drain: Suction (Please empty and record volumes daily) DC O2, CPAP, BIPAP Needs Home O2 Discharge instructions: No Please Follow Up With: Camron Shoemaker MD When: 7-10days postop Meaningful Use Info Meaningful Use Meaningful Use Diagnoses (Choose all that apply): None applicable Ischemic Stroke Statin Dosing Therapy Reference: STATIN DOSE THERAPY REFERENCE: * Patients > 75 years receive moderate or high dose statin therapy. * Patients 75 years or YOUNGER should receive HIGH intensity statin dose unless contraindicated. You will be required to document reason for non-treatment if statin daily dose does not meet guidelines. HIGH DOSE STATIN THERAPY DAILY Atorvastatin > than or = to 40 mg Rosuvastatin > than or = to 20 mg Amlodipine + Atorvastatin > than or = to 2.5/40 mg Ezetimibe + Simvastatin 10/80 mg Simvastatin 80mg Discharge Plan Admission Admit Date/Time: 03/17/25 15:40 Primary Reason for Your Visit: Cholecystectomy Attending Provider: Camron Shoemaker Primary Care Provider: Shira Arias NP Consulting Providers: Gray López Discharge Orders/Prescriptions Prescriptions: New oxycodone 5 mg Tablet 5 mg PO Q6H PRN PRN (Reason: Pain Score 6-10) 3 Days Qty: 10 0RF amoxicillin-pot clavulanate 875-125 mg tablet 1 tab PO Q12H 3 Days Qty: 6 0RF Referrals / Follow Up: Shira Arias AGRONOMY MANAGER, AGRONOMY MANAGER-C [Primary Care Provider] - Disposition Disposition (needs filled in before D/C Order can be placed): Home, Self Care Charges/Coding Visit Charges Inpatient E&M: 19924 Disch Hosp
--- NOTE | 2025-03-18 14:38 | CASEMGMT ---
DAJA LOPEZ Assessment: Face to Face with pt for initial transition planning/care coordination assessment. DAJA LOPEZ introduced self and role at [facility], pt voices understanding and consents to assessment. Pt is A&O x4 and answers all questions appropriately at this time. Pt sitting up in bed in no distress. Care providers, pharmacy, and demographics verified/updated. Admitting Dx:cholecystectomy with IOC Strata Score: 1 PCP:Juana Specialists:Friend, GI [facility]: [facility] Package Plan Prescription Benefit: no LNOK: Iram Beltran, Living Arrangements: Pt lives with and 2 children in a two story home with 3 steps to enter. Pt reports he is I in ADL/IADLs and denies concerns at home. Transportation: Pt drives self and denies concerns with transportation. DME:Denies HHC/SNF: Denies hx of Pt states no concerns with going home at time of dc. Pt states no further concerns/needs. CM to follow. Advised pt to ask CM if any further questions/concerns/needs arise, voices understanding. Pt Goal: Home Plan: Home Saadia FARNSWORTH CM
[2025-03-18] MEDS: oxyCODONE 5 MG Tablet PO (17:21)
== END 2025-03-18 18:36 | disposition home or self-care (01) | DRG 419 ==
LOC: SDC 03-18 08:26 → MS3 03-18 08:26
PROVIDERS: Admitting Provider Surgery; PCP Nurse Practitioner Family; Referring Provider Surgery; Visit Provider Surgery
PROC: 0FT44ZZ Resection of Gallbladder, Percutaneous Endoscopic Approach (ICD-10-PCS; CPT 47610; principal; 2025-03-17 11:10)
DX: K80.66 Calculus of gallbladder and bile duct with acute and chronic cholecystitis without obstruction (principal); K42.9 Umbilical hernia without obstruction or gangrene
CPT/HCPCS: 36415; 80053; 85025; 88304; 93005; J2405

== ENCOUNTER 2025-03-22 12:55 | Outpatient (CLI) | payer SELFPAY ==
[2025-03-08 10:38] LABS: AST(SGOT) 33 U/L (<=37); Alanine Aminotransfer ALT/SGPT 38 U/L (<=46); Albumin, Serum 4.4 g/dL (3.5-5.0); Alkaline Phosphatase 73 U/L (40-129); Bilirubin, Direct 0.22 mg/dL (0.00-0.30); Globulin 2.7 g/dL (2.2-4.2); Protein, Total 7.1 g/dL (5.9-8.4); Total Bilirubin 0.58 mg/dL (0.00-1.30)
--- NOTE | 2025-03-17 21:08 | PAT.ANE_ITS ---
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 When Was Last Pacemaker Check QUESTION #4 FULL TEXT: You/Your Family Experience fever (hyperthermia) with Anesthesia Last Oral Intake Last Oral intake: Last Oral Intake NPO since Meds taken in AM with sips of water? 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 gymnastics coach Female Yes 03/17/25 10:16 HX of Motion Sickness No 03/17/25 10:16 HX of N/V After Surgery No 03/17/25 10:16 Non-Smoker Yes 03/17/25 10:16 Duration of Surgery greater No 03/17/25 10:16 than 60 minutes Number of Risk Factors 2 03/17/25 10:16 PONV Score Moderate Risk 03/17/25 10:16 Height & Weight Height & Weight: Anesthesia: Height & Weight Height 5 ft 10 in 12/31/24 10:04 Respiratory Assessment Respiratory Assessment - rhythmic gymnastics coach: Respiratory Tract Infection Hx - rhythmic gymnastics coach Hx Respiratory Tract Infection No 03/17/25 10:16 STOP Sleep Apnea STOP Sleep Apnea - rhythmic gymnastics coach: STOP Sleep Apnea - rhythmic gymnastics coach Hx Hypertension No 03/17/25 10:16 Hx Sleep Apnea No 03/17/25 10:16 CPAP BIPAP Do you snore loudly (louder No 03/17/25 10:16 than talking or can be heard Do you often feel tired/ No 03/17/25 10:16 fatigued/ sleepy during daytime? Has anyone observed you stop No 03/17/25 10:16 breathing during sleep? STOP Results Negative 03/17/25 10:16 QUESTION #5 FULL TEXT : Do you snore loudly (louder than talking or can be heard through closed doors)? 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 Specify any problems Hx of Preganancy in last 3 N/A 03/17/25 10:16 Months Nurse Filling Out Transfusion VCHRISTIN 03/17/25 10:16 & Questions: Date: 03/17/25 03/17/25 10:16 Time: 10:17 03/17/25 10:16 Patient unable to answer at this time (ie. 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 gymnastics coach: /Reproductive Hx- rhythmic gymnastics coach Hx Now No 03/17/25 10:16 Gestational Age (in weeks): EDC: Hx Hx Para Hx Section SAB No 03/17/25 10:16 PFSH Medical History History of biliary stent insertion Elevation of levels of liver transaminase levels Hyperbilirubinemia Overweight (BMI 25.0-29.9) No pertinent past medical history Home Medications ?Medication ?Instructions ?Recorded ?Last Taken ?Type NK 12/31/24 Unknown History Allergy/AdvReac Type Severity Reaction Status Date / Time No Known Allergies Allergy Verified 03/17/25 10:56 Surgical History Hx laparoscopic cholecystectomy History of ERCP Social History Smoking Status: Never smoker alcohol intake: never Audit: Pertinent Findings Pertinent Findings EKG Perinent findings: March 08, 2025. Normal sinus rhythm. Incomplete right bundle branch block. No change from December 15, 2024. Recommendation Anesthesia Recommendation Anesthesia recommendation: OPTIMIZED for anesthesia
== END 2025-03-22 19:00 | disposition home or self-care (01) ==
LOC: EN 08-12 10:13
PROVIDERS: Nurse Practitioner Acute Care; PCP Nurse Practitioner Family; Referring Provider Nurse Practitioner Family; Visit Provider Internal Medicine Gastroenterology
DX: R74.01 Elevation of levels of liver transaminase levels (principal)
CPT/HCPCS: 36415; 80076

== ENCOUNTER → 2025-03-30 | Outpatient (CLI) | payer SELFPAY ==
--- NOTE | 2025-03-30 08:09 | NM_ITS ---
PROCEDURE: HEPATOBILLIARY IMAGING 03/30/2025 REASON FOR EXAM: CHECK FOR BILE LEAKS AND DUCT PATENCY. Previous cholecystectomy. TECHNIQUE: Intravenous Choletec with planar imaging of the abdomen. RADIOPHARMACEUTICAL: 5.2 mCi technetium 99 M mebrofenin intravenous. COMPARISON: Hepatobiliary scan of 02/24/2025. FINDINGS: There is satisfactory uptake and excretion of the radiopharmaceutical by the liver. Small bowel activity seen by the 15 minute film. NM/Hepatobilliary Imaging IMPRESSION: 1. No evidence of common duct obstruction. 2. Satisfactory hepatic uptake and excretion. Reading Location: [place] [id number]
== END | disposition home or self-care (01) ==
LOC: NM 08:06
PROVIDERS: PCP Nurse Practitioner Family; Referring Provider Physician Assistant; Visit Provider Physician Assistant
DX: Z09 Encounter for follow-up examination after completed treatment for conditions other than malignant neoplasm (principal); Z90.49 Acquired absence of other specified parts of digestive tract
CPT/HCPCS: 78226; A9537

== ENCOUNTER 2025-05-03 11:31 | Day surgery (SDC) | payer SELFPAY ==
--- NOTE | 2025-04-27 16:12 | PAT.ANESEVAL ---
Pre-Assessment Diagnosis/Proposed Procedure Planned Operative Procedure(s): ERCP 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 History - assembler finger buffs: Anesthesia History - assembler finger buffs Hx Hospitalization Yes: 08/2024 ERCP 04/27/25 15:02 Any Problems With Anesthesia No 04/27/25 15:02 Cholinesterase deficiency No 04/27/25 15:02 You/Your Family Experience No 04/27/25 15:02 fever (hyperthermia) with Relationship Recent Exposure to Contagious No 03/17/25 10:57 Disease Does patient have nerve No 04/27/25 15:02 stimulator Patient instructed to have device shut off --Does patient have Pacemaker or ICD? When Was Last Pacemaker Check QUESTION #4 FULL TEXT: You/Your Family Experience fever (hyperthermia) with Anesthesia Last Oral Intake Last Oral intake: Last Oral Intake NPO since Meds taken in AM with sips of water? 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 - assembler finger buffs: PONV - assembler finger buffs Female No 04/27/25 15:02 HX of Motion Sickness No 04/27/25 15:02 HX of N/V After Surgery No 04/27/25 15:02 Non-Smoker Yes 04/27/25 15:02 Duration of Surgery greater Yes 04/27/25 15:02 than 60 minutes Number of Risk Factors 2 04/27/25 15:02 PONV Score Moderate Risk 04/27/25 15:02 Height & Weight Height & Weight: Anesthesia: Height & Weight Height 5 ft 10 in 03/17/25 19:52 Respiratory Assessment Respiratory Assessment - assembler finger buffs: Respiratory Tract Infection Hx - assembler finger buffs Hx Respiratory Tract Infection No 04/27/25 15:02 STOP Sleep Apnea STOP Sleep Apnea - assembler finger buffs: STOP Sleep Apnea - assembler finger buffs Hx Hypertension No 04/27/25 15:02 Hx Sleep Apnea No 04/27/25 15:02 CPAP BIPAP Do you snore loudly (louder No 04/27/25 15:02 than talking or can be heard Do you often feel tired/ No 04/27/25 15:02 fatigued/ sleepy during daytime? Has anyone observed you stop No 04/27/25 15:02 breathing during sleep? STOP Results Negative 04/27/25 15:02 QUESTION #5 FULL TEXT : Do you snore loudly (louder than talking or can be heard through closed doors)? 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 Specify any problems Hx of Preganancy in last 3 N/A 04/27/25 15:02 Months Nurse Filling Out Transfusion VCHRISTIN 04/27/25 15:02 & Questions: Date: 04/27/25 04/27/25 15:02 Time: 15:03 04/27/25 15:02 Patient unable to answer at this time (ie. confused, unrespo /Reproduction History /Reproductive History - assembler finger buffs: /Reproductive Hx- assembler finger buffs Hx Now No 04/27/25 15:02 Gestational Age (in weeks): EDC: Hx Hx Para Hx Section SAB No 04/27/25 15:02 [facility] Medical History History of biliary stent insertion Elevation of levels of liver transaminase levels Hyperbilirubinemia Overweight (BMI 25.0-29.9) No pertinent past medical history Home Medications ?Medication ?Instructions ?Recorded ?Last Taken ?Type NK 04/07/25 Unknown History Allergy/AdvReac Type Severity Reaction Status Date / Time No Known Allergies Allergy Verified 04/27/25 14:59 Surgical History Hx laparoscopic cholecystectomy History of ERCP Social History Smoking Status: Never smoker alcohol intake: never Audit: Pertinent Findings Pertinent Findings EKG Perinent findings: March 08, 2025. Normal sinus rhythm. Incomplete right bundle branch block. Compared to EKG of December 15, 2024, no significant change was found. Recommendation Anesthesia Recommendation Anesthesia recommendation: OPTIMIZED for anesthesia
[2025-05-03] VITALS (7 sets, daily range): BP systolic 97–104; BP diastolic 80–84; PULSE 60–70; RESP 16–18; TEMP 36.2–36.7; O2SAT 92–99; BMI 30.2
--- NOTE | 2025-05-03 11:37 | EKG12_ITS ---
Test Reason : PRE OP Blood Pressure : */* mmHG Vent. Rate : 57 BPM Atrial Rate : 57 BPM P-R Int : 198 ms QRS Dur : 116 ms QT Int : 406 ms P-R-T Axes : 31 -30 11 degrees QTcB Int : 395 ms Sinus bradycardia Left axis deviation Incomplete right bundle branch block Abnormal ECG When compared with ECG of 08-Mar-2025 08:35, No significant change was found Confirmed by KHAI CEVALLOS, LD ([id number]), graphic editor BROOKLYN LYNNE ([id number]) on 05/05/2025 12:59:58 PM Referred By: Shira Arias Confirmed By: LD RIDLEY MD
--- NOTE | 2025-05-03 11:42 | PRE.ANES_ITS ---
ASA Classification* ASA Classification ASA Classification: 2 Assessment & Plan Anesthesia* Anesthesia Assessment Anesthesia Assessment: Discussed sedation and/or anesthesia options, risks, benefits, and alternatives with patient/parents/legal guardian/POA. Questions invited. The patient/parents/legal guardian/POA seems to understand and agrees to proceed with anesthesia plan. Reviewed the physical assessment, medical history, allergy history and patient home medications list prior to surgery/procedure/anesthetic and documented any changes. Performed airway and anesthesia risk assessments. Anesthesia Type Anesthesia Type: MAC Anesthesia Focused Assessment* Airway Assessment Mouth opens: >3 cm Mallampati Score: II Labs Anesthesia Preop lab: CBC WBC 9.2 K/mm3 (4.4-11.0) 03/18/25 06:03/18/25 RBC 5.04 M/mm3 (4.6-6.2) 03/18/25 06:03/18/25 Hgb 14.8 g/dL (13.0-16.5) 03/18/25 06:03/18/25 Hct 43.6 % (40-54) 03/18/25 06:03/18/25 Plt Count 264 K/mm3 (150-450) 03/18/25 06:27 03/18/25 CHEMISTRY Potassium 4.0 mmol/L (3.3-5.1) 03/18/25 06:27 03/18/25 Sodium 139 mmol/L (133-145) 03/18/25 06:27 03/18/25 Magnesium 2.1 mg/dL (1.6-2.6) 09/06/24 07:15 09/06/24 Phosphorus 3.2 mg/dL (2.5-4.9) 09/06/24 07:15 09/06/24 BUN 12 mg/dL (4-19) 03/18/25 06:27 03/18/25 Creatinine 1.00 mg/dL (0.70-1.20) 03/18/25 06:27 03/18/25 Glucose 114 mg/dL (70-99) H 03/18/25 06:27 03/18/25 TSH 0.918 uIU/mL (0.358-3.740) 09/11/24 08:48 08/30 12/21 COAG PT 12.3 SECONDS (11.7-14.9) 09/11/24 08:48 Pre-Assessment Diagnosis/Proposed Procedure Planned Operative Procedure(s): ERCP with stent pull. 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 When Was Last Pacemaker Check QUESTION #4 FULL TEXT: You/Your Family Experience fever (hyperthermia) with Anesthesia Last Oral Intake Last Oral intake: Last Oral Intake NPO since Meds taken in AM with sips of water? 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 - financial management analyst: PONV - financial management analyst Female No 04/27/25 15:02 HX of Motion Sickness No 04/27/25 15:02 HX of N/V After Surgery No 04/27/25 15:02 Non-Smoker Yes 04/27/25 15:02 Duration of Surgery greater Yes 04/27/25 15:02 than 60 minutes Number of Risk Factors 2 04/27/25 15:02 PONV Score Moderate Risk 04/27/25 15:02 Height & Weight Height & Weight: Anesthesia: Height & Weight Height 5 ft 10 in 03/17/25 19:52 Respiratory Assessment Respiratory Assessment - financial management analyst: Respiratory Tract Infection Hx - financial management analyst Hx Respiratory Tract Infection No 04/27/25 15:02 STOP Sleep Apnea STOP Sleep Apnea - financial management analyst: STOP Sleep Apnea - financial management analyst Hx Hypertension No 04/27/25 15:02 Hx Sleep Apnea No 04/27/25 15:02 CPAP BIPAP Do you snore loudly (louder No 04/27/25 15:02 than talking or can be heard Do you often feel tired/ No 04/27/25 15:02 fatigued/ sleepy during daytime? Has anyone observed you stop No 04/27/25 15:02 breathing during sleep? STOP Results Negative 04/27/25 15:02 QUESTION #5 FULL TEXT : Do you snore loudly (louder than talking or can be heard through closed doors)? Tobacco Use History Tobacco Use History - financial management analyst: Tobacco Use History - financial management analyst Tobacco Use Smoking Status Never smoker 04/27/25 15:02 Hx Tobacco Use No 04/27/25 15:02 Years Smoking Packs Smoked per Day Smoking Cessation Date was within the last 15 years Hx Smoking Cessation Date Hx Smoking Cessation Counseling Hematologic Medial History Hematologic Hx - financial management analyst: Hematologic Medical Hx - secy Hx of Blood Transfusion Yes 04/27/25 15:02 Hx of Transfusion in last 3 No 04/27/25 15:02 Months Date of Last Transfusion (if within last 3 months) Ever experience any problems No 04/27/25 15:02 with transfusion(s)? Specify any problems Hx of Preganancy in last 3 N/A 04/27/25 15:02 Months Nurse Filling Out Transfusion VCHRISTIN 04/27/25 15:02 & Questions: Date: 04/27/25 04/27/25 15:02 Time: 15:03 04/27/25 15:02 Patient unable to answer at this time (ie. confused, unrespo /Reproduction History /Reproductive History - financial management analyst: /Reproductive Hx- financial management analyst Hx Now No 04/27/25 15:02 Gestational Age (in weeks): EDC: Hx Hx Para Hx Section SAB No 04/27/25 15:02 Active Medications Active Medications: Current Medications Generic Name Dose Route Start Last Admin Trade Name Freq PRN Reason Stop Dose Admin Lactated Ringer's 1,000 mls @ 15 mls/hr 05/03/25 11:45 IV .Q48H RICARDO PFSH Medical History Bacteremia due to Gram-negative bacteria Drug-induced liver injury Jaundice History of biliary stent insertion Elevation of levels of liver transaminase levels Hyperbilirubinemia Overweight (BMI 25.0-29.9) No pertinent past medical history Home Medications ?Medication ?Instructions ?Recorded ?Last Taken ?Type NK 04/07/25 Unknown History Allergy/AdvReac Type Severity Reaction Status Date / Time No Known Allergies Allergy Verified 04/27/25 14:59 Surgical History Hx laparoscopic cholecystectomy History of ERCP Social History Smoking Status: Never smoker alcohol intake: never Review of Systems (Anesthesia) ROS Narrative System reviewed and no additional complaints, except as documented.
[2025-05-03] MEDS: Lactated Ringers 1,000 ML 15 ML IV (11:58)
--- NOTE | 2025-05-03 12:15 | FLU_PTH ---
PATIENT: DIANE CONNORS LOC: EN U#:[id number] AGE/SX: 39/M ROOM: RE05/03/[address]: Dr. Denys Babin DO : 1985 BED: DIS: 05/03/2025 SPEC #: [id number] RECD: 05/03/25 13:40 STATUS: LYNDA RENiurka #: [id number] NANDA: 05/03/25 12:[address]: Denys Babin DEPT: CYTOLOGY RECD BY: Adolfo Colvin ENTERED: 05/04/25 09:27 SP TYPE: Fluid OTHR DR: Shira Arias, ELLI-Marli Tissues: A - Biliary tract, NOS B - Bile duct, NOS Procedures: Special Stain Group II Surgery Specimen Level III Surgery Specimen Level IV Cytospin Fluid HEADER OPERATION: ERCP with stent removal PRE-OP DIAGNOSIS: Hyperbilirubinemia, increased levels of liver, transaminase TISSUE SUBMITTED: A- Biliary stent for cytology, B- Mid common bile duct brushings for cytology DIAGNOSIS CYTOLOGY A. Biliary stent (cytospin, cellblock): - Acellular specimen with foreign material/debris. B. Mid common bile duct, brushing (cytospin, cellblock, smear x3): - No malignant cells identified. - Benign ductal epithelium, mild acute inflammation. CYTOLOGY STUDY Slides are reviewed. CYTOLOGY GROSS A. Received is 1 black 10cm stent with 0.3 ml of blackish-yellow material labeled with the patient's name and and designated per the requisition as Biliary stent. Submitted for cytology and cell block preparation. B. Received is 1 brush with 3 smears labeled with the patient's name and and designated per the requisition as Mid common bile duct brushings. Submitted for cytology and cell block preparation. Mr 05/04/2025 CPT: 30853t9,[id number]
--- NOTE | 2025-05-03 12:47 | PCM.HP.STD ---
HPI - General General Date of Admission: 05/03/25 Date of Service: 05/03/25 Chief Complaint: Biliary stent removal HPI Narrative DIANE CONNORS, is a 39 M who presents today for ERCP with stent removal. Patient recently underwent ERCP with stone removal and stent placement. Last month he underwent elective cholecystectomy. Patient is doing well after procedure. He comes back in for stent removal. [facility] Medical History Bacteremia due to Gram-negative bacteria Drug-induced liver injury Jaundice History of biliary stent insertion Elevation of levels of liver transaminase levels Hyperbilirubinemia Overweight (BMI 25.0-29.9) No pertinent past medical history Home Medications ?Medication ?Instructions ?Recorded ?Last Taken ?Type NK 04/07/25 Unknown History Allergy/AdvReac Type Severity Reaction Status Date / Time No Known Allergies Allergy Verified 05/03/25 11:45 Surgical History Hx laparoscopic cholecystectomy History of ERCP Social History Smoking Status: Never smoker alcohol intake: never ROS Constitutional Constitutional: Denies fatigue, fever(s), poor appetite, weight gain or weight loss Gastrointestinal Gastrointestinal: Denies belching, bloating, change in bowel habits, change in stool character, chewing difficulty, coffee ground emesis, constipation, cramping, diarrhea, dyspepsia, dysphagia, early satiety, excessive flatus, fecal incontinence, heartburn, hematemesis, hematochezia, hemorrhoids, loose stools, melena, nausea, odynophagia, rectal bleeding, tenesmus, vomiting or weight changes Vital Signs Vital Signs Vital Signs: 05/03/25 11:55 05/03/25 11:55 Temperature 98.1 F Temperature Source Temporal Pulse Rate 60 Respiratory Rate 16 Respiratory Pattern Normal Blood Pressure 102/81 H Blood Pressure Mean 88 Blood Pressure Source Monitor Blood Pressure Position Semi-Fowlers Blood Pressure Location Right Arm Pulse Ox 99 Oxygen Delivery Method Room Air Weight Weight: 210 lb 15.718 oz Body Mass Index (BMI) 30.2 Physical Exam Const alert, oriented x3, no apparent distress and healthy appearing General Appearance: cooperative GI normal to inspection, nondistended, normoactive bowel sounds, soft to palpation, non-tender and non-distended Percussion: normal to percussion Rectal Exam: deferred Assessment & Plan Assessment/Plan (1) Hyperbilirubinemia: (2) Elevation of levels of liver transaminase levels: PLAN: Plan Patient is a 39-year-old male who presented to [facility] ED on 12/14/2024 with fevers and chills after recent ERCP. Reported fevers/chills with elevated transaminases after recent ERCP, recent history of choledocholithiasis and suspected history of drug-induced liver injury ? He had ERCP done with choledocholithiasis removed with biliary tree swept, as well as removal of previously placed temporary stent. He presents today for stent removal. He was explained alternatives, risk and benefits going understanding bleeding, infection, septal, perforation, need for surgery . He will have an ASA of 3. .
--- NOTE | 2025-05-03 12:55 | RAD_ITS ---
PROCEDURE: ERCP BILIARY/PANCREAS; O.R. FLUORO FOR C-ARM 05/03/2025 REASON FOR EXAM: ERCP TECHNIQUE: ERCP BILIARY/PANCREAS; O.R. FLUORO FOR C-ARM. Intraoperative fluoroscopy was performed for ERCP. A total of 12 fluoroscopic images were also obtained. COMPARISON: None. RAD/ERCP Biliary/Pancreas IMPRESSION: Intraoperative fluoroscopy was performed for ERCP. A total of 12 fluoroscopic images were also obtained. Reading Location: [place] [address]
--- NOTE | 2025-05-03 12:55 | RAD_ITS ---
PROCEDURE: ERCP BILIARY/PANCREAS; O.R. FLUORO FOR C-ARM 05/03/2025 REASON FOR EXAM: ERCP TECHNIQUE: ERCP BILIARY/PANCREAS; O.R. FLUORO FOR C-ARM. Intraoperative fluoroscopy was performed for ERCP. A total of 12 fluoroscopic images were also obtained. COMPARISON: None. RAD/O.R. Fluoro for C-Arm IMPRESSION: Intraoperative fluoroscopy was performed for ERCP. A total of 12 fluoroscopic images were also obtained. Reading Location: [place] [address]
--- NOTE | 2025-05-03 13:35 | OP.ERCP_ITS ---
Patient Name: Jp Beltran Procedure Date: 05/03/2025 12:46 PM Date of : 1985 Age: 39 Procedure: ERCP Indications: Biliary stent removal Providers: Denys Babin DO Referring MD: Shira Arias Medicines: Monitored Anesthesia Care Patient Profile: This is a 39 year old male. Refer to note in patient chart for documentation of history and physical. Patient has symptoms. He is status post laparoscopic cholecystectomy within the past three months. His most recent ERCP for stent and ERCP for stone removal was within the past six months. Complications: No immediate complications. Procedure: Pre-Anesthesia Assessment: - Prior to the procedure, a History and Physical was performed, and patient medications and allergies were reviewed. The patient is competent. The risks and benefits of the procedure and the sedation options and risks were discussed with the patient. All questions were answered and informed consent was obtained. Patient identification and proposed procedure were verified by the physician in the pre-procedure area. Mental Status Examination: alert and oriented. Airway Examination: normal oropharyngeal airway and neck mobility. Respiratory Examination: clear to auscultation. CV Examination: normal. Prophylactic Antibiotics: The patient does not require prophylactic antibiotics. Prior Anticoagulants: The patient has taken no anticoagulant or antiplatelet agents except for NSAID medication. ASA Grade Assessment: II - A patient with mild systemic disease. After reviewing the risks and benefits, the patient was deemed in satisfactory condition to undergo the procedure. The anesthesia plan was to use monitored anesthesia care (MAC). Immediately prior to administration of medications, the patient was re-assessed for adequacy to receive sedatives. The heart rate, respiratory rate, oxygen saturations, blood pressure, adequacy of pulmonary ventilation, and response to care were monitored throughout the procedure. The physical status of the patient was re-assessed after the procedure. After obtaining informed consent, the scope was passed under direct vision. Throughout the procedure, the patient's blood pressure, pulse, and oxygen saturations were monitored continuously. The Duodenoscope was introduced through the mouth, and advanced to the duodenum and used to inject contrast into the bile duct. The ERCP was accomplished without difficulty. The patient tolerated the procedure well. Scope In: 1:09:38 PM Scope Out: 1:22:14 PM Total Procedure Duration Time 0 hours 12 minutes 36 seconds Findings: The leaf stamper film was normal. A biliary stent was visible on the leaf stamper film. The esophagus was successfully intubated under direct vision. The scope was advanced to a normal major papilla in the descending duodenum without detailed examination of the pharynx, larynx and associated structures, and upper GI tract. The upper GI tract was grossly normal. A long 0.025 inch Jagwire was passed into the biliary tree. The short-nosed traction sphincterotome was passed over the guidewire and the bile duct was then deeply cannulated. Contrast was injected. I personally interpreted the bile duct images. Ductal flow of contrast was adequate. Image quality was adequate. Contrast extended to the entire biliary tree. Opacification of the entire biliary tree except for the cystic duct and gallbladder and entire biliary tree was successful. The maximum diameter of the ducts was 10 mm. The middle third of the main bile duct contained a single localized stenosis 6 mm in length. The left and right hepatic ducts and all intrahepatic branches were markedly dilated, acquired. A cholecystectomy had been performed. A 5 mm biliary sphincterotomy was made with a traction (standard) sphincterotome using ERBE electrocautery. There was no post-sphincterotomy bleeding. The biliary tree was swept with a 12 mm balloon starting at the left intrahepatic duct(s). Sludge was swept from the duct. All stones were removed. One stent was removed from the biliary tree using a snare and sent for cytology. The stent was found to be partially occluded via the water column test. Cells for cytology were obtained by brushing in the middle third of the main bile duct. Impression: - A single localized biliary stricture was found in the middle third of the main bile duct. The stricture was likely post-surgical. Cytology specimen was sent from the stricture. - The left and right hepatic ducts and all intrahepatic branches were markedly dilated, acquired. - The patient has had a cholecystectomy. - Choledocholithiasis was found. Complete removal was accomplished by biliary sphincterotomy and balloon extraction. - A biliary sphincterotomy was performed. - The biliary tree was swept. - One stent was removed from the biliary tree. - Cells for cytology obtained in the middle third of the main bile duct. Recommendation: Augmentin 875/125 twice a day for 7 days. Procedure Code(s): --- Professional --- 82357, Endoscopic retrograde cholangiopancreatography (ERCP); with removal of foreign body(s) or stent(s) from biliary/pancreatic duct(s) 20657, Endoscopic retrograde cholangiopancreatography (ERCP); with removal of calculi/debris from biliary/pancreatic duct(s) 33804, Endoscopic retrograde cholangiopancreatography (ERCP); with sphincterotomy/papillotomy 72129, 26, Endoscopic catheterization of the biliary ductal system, radiological supervision and interpretation CPT copyright 2021 [employer]. All rights reserved. The codes documented in this report are preliminary and upon mosquito sprayer review may be revised to meet current compliance requirements. Denys Babin DO 05/03/2025 1:35:07 PM This report has been signed electronically. Number of Addenda: 0 Note Initiated On: 05/03/2025 12:46 PM
--- NOTE | 2025-05-03 13:35 | OP.PROVAT_ITS ---
05/03/2025 Shira Arias Re : ERCP procedure for Jp Beltran [place] This procedure was performed on Saturday, May 03, 2025. My impressions and recommendations are as follows: Impressions : - A single localized biliary stricture was found in the middle third of the main bile duct. The stricture was likely post-surgical. Cytology specimen was sent from the stricture. - The left and right hepatic ducts and all intrahepatic branches were markedly dilated, acquired. - The patient has had a cholecystectomy. - Choledocholithiasis was found. Complete removal was accomplished by biliary sphincterotomy and balloon extraction. - A biliary sphincterotomy was performed. - The biliary tree was swept. - One stent was removed from the biliary tree. - Cells for cytology obtained in the middle third of the main bile duct. Recommendations : Augmentin 875/125 twice a day for 7 days. My findings are described in the full procedure note, which is enclosed. If I can be of further assistance, please feel free to contact me at . Sincerely, Denys Babin, 05/03/2025 1:35:07 PM This report has been signed electronically.
--- NOTE | 2025-05-03 13:41 | PCM.POST.ANE ---
Anesthesia: Postop Eval I Current Vital Signs Temperature: 97.2 F Pulse Rate: 70 Blood Pressure: 104/84 Respiratory Rate: 16 Pulse Ox: 99 Oxygen Delivery Method: Room Air Assessment Airway patent: Yes Spontaneous unlabored respirations: Yes Mental status: Awake and Calm nausea: No Vomiting: No Anesthesia Complication: No Fluid Hydration Crystalloid volume administer (ml): 600 Total IV fluid infused: 600 Progress Note Anesthesia document: Postop Eval 1 completed: Yes
--- NOTE | 2025-05-03 13:49 | PCM.POSTANE2 ---
Anesthesia Postop Eval I Sum Postop Eval Completion status Anesthesia document: Postop Eval 1 completed: Yes Anesthesia Postop Eval I Summary Anesthesia Postop Eval I Summary: Anesthesia Postop Eval I: Assessment Summary Airway patent Yes 05/03/25 13:42 [email or web address] Spontaneous unlabored Yes 05/03/25 13:42 [email or web address] respirations Mental status Awake,Calm 05/03/25 13:42 [email or web address] nausea No 05/03/25 13:42 [email or web address] Vomiting No 05/03/25 13:42 [email or web address] Anesthesia Postop Eval I: Fluid Summary Crystalloid volume administer 600 05/03/25 13:42 [email or web address] (ml) Colloids volume administered ( ml) Blood Product volume administered (ml) Total IV fluid infused 600 05/03/25 13:42 [email or web address] Anesthesia Postop Eval I: Summary Notes Anesthesia Complication No 05/03/25 13:42 [email or web address] Anesthesia Complication Comment: Post-operative progress note Anesthesia: Postop Eval II Evaluation Mental status: Awake Pain Level: 0 nausea: No Vomiting: No
== END 2025-05-03 14:03 | disposition home or self-care (01) ==
LOC: EN 11:31 → AC 11:32
PROVIDERS: PCP Nurse Practitioner Family; Referring Provider Nurse Practitioner Family; Visit Provider Internal Medicine Gastroenterology
PROC: (CPT 43260; principal; 2025-05-03 11:55)
DX: K80.51 Calculus of bile duct without cholangitis or cholecystitis with obstruction (principal); Z90.49 Acquired absence of other specified parts of digestive tract
CPT/HCPCS: 43264; 43262; 43275; 74330; 76000; 88108; 88304; 88305; 88313; 93005; J2405

== ENCOUNTER 2025-05-04 23:20 | Inpatient (IN) | payer SELFPAY ==
[2025-05-04 23:21] VITALS: BP 94/70; PULSE 134; RESP 18; TEMP 38.1; O2SAT 95; BMI 29.8
[2025-05-04 23:24] VITALS: BP 94/70; PULSE 134; RESP 18; TEMP 38.1; O2SAT 95
--- NOTE | 2025-05-04 23:50 | CT_ITS ---
PROCEDURE: ABDOMEN/PELVIS W IV CONT ONLY 05/05/2025 REASON FOR EXAM: ABD PAIN TECHNIQUE: ABDOMEN/PELVIS W IV CONT ONLY Coronal and Sagittal reconstruction series were provided. CONTRAST: Isovue 370 VOLUME: 99 mL One or more dose reduction techniques were used (e.g., Automated exposure control, adjustment of the mA and/or kV according to patient size, use of iterative reconstruction technique. RADIATION DOSE SUMMARY: CTDlvol: 26 mGy DLP: 866 mGycm COMPARISON: 12/14/2024 FINDINGS: Under aerated lung bases. Borderline cardiac enlargement. Gallbladder is abnormal. There is some wall enhancement and adjacent fat stranding. Gallbladder is irregularly-shaped and might be perforated. There is redemonstration of intrahepatic and extrahepatic biliary ductal dilatation, there are noncalcified common bile duct stones. There is also wall thickening and enhancement, with adjacent fat stranding, of the biliary tree, consistent with cholangitis. Unremarkable pancreas, spleen, adrenal glands,. No hydronephrosis. Normal bladder. Normal prostate. No retroperitoneal or pelvic adenopathy. No free air. Nonobstructed bowel. Normal appendix. No acute large bowel findings. Status post right-sided orchiectomy. No acute abdominal wall findings. CT/Abdomen/Pelvis W IV Cont ONLY IMPRESSION: Suspected cholecystitis possibly with gallbladder perforation. Dilated biliary tree, cholangitis, and choledocholithiasis. Follow up imaging as clinically determined. Reading Location: [place] [address]
--- OUTSIDE RECORDS SUMMARY | 2025-05-04 23:56 | XMS RPT_ITS | CCD ---
Author Organization [facility] Care Team Providers Care Body Team Member Name Role Phone LORSON ADULT LITERACY TEACHER-RUBBER CUTTING MACHINE TENDER, HSIRA Primary Care Physician SWANSIGER ADULT LITERACY TEACHER-RUBBER CUTTING MACHINE TENDER, CAYLA Griffiths Attending U navailable LORSON ADULT LITERACY TEACHER-RUBBER CUTTING MACHINE TENDER, [place] Primary Care Unavail able SWANSIGER ADULT LITERACY TEACHER-RUBBER CUTTING MACHINE TENDER, CAYLA Griffiths Attending U navailable LORSON ADULT LITERACY TEACHER-RUBBER CUTTING MACHINE TENDER, [place] Primary Care Unavail able LORSON ADULT LITERACY TEACHER-RUBBER CUTTING MACHINE TENDER, SHIRA Attending Unavail able LORSON ADULT LITERACY TEACHER-RUBBER CUTTING MACHINE TENDER, [place] Primary Care Unavail able SWANSIGER ADULT LITERACY TEACHER-RUBBER CUTTING MACHINE TENDER, CAYLA Griffiths Attending U navailable LORSON ADULT LITERACY TEACHER-RUBBER CUTTING MACHINE TENDER, [place] Primary Care Unavail able LORSON ADULT LITERACY TEACHER-RUBBER CUTTING MACHINE TENDER, [place] Primary Care Unavail able SWANSIGER ADULT LITERACY TEACHER-RUBBER CUTTING MACHINE TENDER, CAYLA Griffiths Attending U navailable SEFFENS ADULT LITERACY TEACHER-RUBBER CUTTING MACHINE TENDER, VANGIE Attending Unavai lable LORSON ADULT LITERACY TEACHER-RUBBER CUTTING MACHINE TENDER, [place] Primary Care Unavail able Lorson RETAIL CUSTOMER SERVICE SPECIALIST-C, [place] Primary Care Provider Dr. Rod Ross DO Emergency Provider Dr. Seth Paiz DO Admit Provider Unavail able Dr. Seth Paiz DO Other Provider Unavail able Dr. Edwina Kimball DO Attending Provider Dr. Cruz Arciniega DO Other Provider [phone] Dr. Seth Paiz DO Referring Provider Unav ailDr. Denys Suarez DO Attending Provider Dr. Jose Lubin MD Attending Provider [phone] Dr. Jose Lubin MD Referring Provider Dr. Cruz Arciniega DO Attending Provider Dr. Edwina Kimball DO Other Provider Lorson RETAIL CUSTOMER SERVICE SPECIALIST-C, Shira Referring Provider [phone] Hu CEVALLOS, Dr. Maya Attending Provider Hu CEVALLOS, Dr. Maya Referring Provider Olaf NAVARRO, Dr. Mcfarlane Other Provider Holly NAVRARO, Dr. Davey Emergency Provider Primitivo NAVARRO, Dr. Arroyo Admit Provider [phone] Olaf NAVARRO, Dr. Mcfarlane Referring Provider Navid CEVALLOS, Dr. Lyon Other Provider Irina CEVALLOS, Dr. Coleman Other Provider Hu CEVALLOS, Dr. Maya Other Provider Navid CEVALLOS, Dr. Lyon Attending Provider de Emil NAVARRO, Dr. Ann Referring Provider Unav ailable Friend , Dr. Mcfarlane Attending Provider Amee CEVALLOS, Dr. Garcia Attending Provider Khang RETAIL CUSTOMER SERVICE SPECIALIST-C, Cayla Attending Provider Khang RETAIL CUSTOMER SERVICE SPECIALIST-C, Cayla Referring Provider SANDIE ADULT LITERACY TEACHER-RUBBER CUTTING MACHINE TENDER, CAYLA Griffiths Attending U navailable LORSON ADULT LITERACY TEACHER-RUBBER CUTTING MACHINE TENDER, [facility] Care Unavail able SANDIE ADULT LITERACY TEACHER-RUBBER CUTTING MACHINE TENDER, CAYLA Griffiths Attending U navailable LORSON ADULT LITERACY TEACHER-RUBBER CUTTING MACHINE TENDER, [facility] Care Unavail able MICHENER ADULT LITERACY TEACHER-RUBBER CUTTING MACHINE TENDER, MICHELA Griffiths Attending Unav ailable LORSON ADULT LITERACY TEACHER-RUBBER CUTTING MACHINE TENDER, [facility] Care Unavail able Lorson RETAIL CUSTOMER SERVICE SPECIALIST-C, [place] Primary Care Provider John CEVALLOS, Dr. Vasquez Attending Provider John CEVALLOS, Dr. Vasquez Referring Provider Juana RETAIL CUSTOMER SERVICE SPECIALIST-C, Shira Referring Provider [phone] Olaf NAVARRO, Dr. Mcfarlane Attending Provider Prmiitivo NAVARRO, Dr. Arroyo Other Provider Hu CEVALLOS, Dr. Maya Attending Provider Hu CEVALLOS, Dr. Maya Referring Provider Jonelle RETAIL CUSTOMER SERVICE SPECIALIST-C, Michela Griffiths Attending Provider Unava alexa Sal NP-C, Michela Griffiths Referring Provider Unava alexa Redd MD, Dr. Lyon Attending Provider Navid CEVALLOS, Dr. Lyon Referring Provider Rene CEVALLOS, Dr. Castellano Other Provider Unavailable Navid CEVALLOS, Dr. Lyon Admit Provider Maverick PA-C, Bing Attending Provider Maverick PA-C, Bing Referring Provider Juana RETAIL CUSTOMER SERVICE SPECIALIST, [facility] Care Unavailable Camron Shoemaker Attending Unavailable Camron Shoemaker Referring Unavailable Camron Shoemaker Admitting Unavailable Gray López Consulting Unavailable Bing Hadley Attending Unavailable Lorson RETAIL CUSTOMER SERVICE SPECIALIST, [facility] Care Unavailable Bing Hadley Referring Unavailable Francesco Lui Attending Unavailable Francesco Lui Referring Unavailable Lorson RETAIL CUSTOMER SERVICE SPECIALIST, [facility] Care Unavailable Camron Redd Attending Unavailable Lorson RETAIL CUSTOMER SERVICE SPECIALIST, [facility] Care Unavailable Camron Shoemaker Referring Unavailable Cruz Arciniega Consulting Unavailable Cruz Arciniega Admitting Unavailable Francesco Lui Attending Unavailable Lorson RETAIL CUSTOMER SERVICE SPECIALIST, [facility] Care Unavailable Camron Shoemaker Consulting Unavailable Jared Arevalo Consulting Unavailable Lorson RETAIL CUSTOMER SERVICE SPECIALIST, [place] Referring Unavailable Lorson RETAIL CUSTOMER SERVICE SPECIALIST, [place] Primary Care Unavailable Olaf, Denys Attending Unavailable Cayla Quiñonez Consulting Unavailable Lorson RETAIL CUSTOMER SERVICE SPECIALIST, [facility] Care Unavailable Michela Sal Attending Unavailable Rahul Salista K Referring Unavailable Edwina Kimball Attending Unavailable Lorson RETAIL CUSTOMER SERVICE SPECIALIST, [facility] Care Unavailable Seth Paiz Admitting Unavailable Seth Paiz Consulting Unavailable Cruz Arciniega Consulting Unavailable Lorson RETAIL CUSTOMER SERVICE SPECIALIST, [facility] Care Unavailable Michela Sal Attending Unavailable Rahul Salista K Referring Unavailable Lorson RETAIL CUSTOMER SERVICE SPECIALIST, [facility] Care Unavailable Pedro oLpez Attending Unavailable Pedro Lopez Referring Unavailable Olaf, Denys Referring Unavailable Jose Lubin Attending Unavailable Lorson RETAIL CUSTOMER SERVICE SPECIALIST, [facility] Care Unavailable Jose Lubin Attending Unavailable AmeeJose vasquez Referring Unavailable Lorson RETAIL CUSTOMER SERVICE SPECIALIST, [facility] Unavailable Friend, Denys Attending Unavailable Lorson RETAIL CUSTOMER SERVICE SPECIALIST, [facility] Care Unavailable Seth Paiz Referring Unavailable Lorson RETAIL CUSTOMER SERVICE SPECIALIST, [place] Referring Unavailable Francesco Lui Attending Unavailable Lorson RETAIL CUSTOMER SERVICE SPECIALIST, [facility] Care Unavailable Lorson RETAIL CUSTOMER SERVICE SPECIALIST, [place] Referring Unavailable Maverick YOUNG Bing Attending Unavailable Lorson RETAIL CUSTOMER SERVICE SPECIALIST, [facility] Care Unavailable Cruz Arciniega Consulting Unavailable Cruz Arciniega Admitting Unavailable Lorson RETAIL CUSTOMER SERVICE SPECIALIST, [facility] Unavailable Camron Shoemaker Attending Unavailable Mendoza Luikash Referring Unavailable Camron Shoemaker Consulting Unavailable Jared Arevalo Consulting Unavailable Mendoza Luikash Consulting Unavailable Friend, Denys Attending Unavailable Francesco uLi Attending Unavailable Lorson RETAIL CUSTOMER SERVICE SPECIALIST, [place] Referring Unavailable Friend, Denys Attending Unavailable Lorson RETAIL CUSTOMER SERVICE SPECIALIST, [facility] Care Unavailable Friend, Denys Attending Unavailable Lorson RETAIL CUSTOMER SERVICE SPECIALIST, [facility] Care Unavailable Seth Paiz Consulting Unavailable Seth Paiz Admitting Unavailable Seth Paiz Referring Unavailable Cruz Arciniega Consulting Unavailable Edwina Kimball Consulting Unavailable Edwina Kimball Attending Unavailable Cruz Arciniega Attending Unavailable Lorson RETAIL CUSTOMER SERVICE SPECIALIST, [place] Referring Unavailable Friend, Denys Attending Unavailable Lorson RETAIL CUSTOMER SERVICE SPECIALIST, [facility] Care Unavailable Friend, Denys Consulting Unavailable Friend, Denys Attending Unavailable Lorson RETAIL CUSTOMER SERVICE SPECIALIST, [place] Referring Unavailable Lorson RETAIL CUSTOMER SERVICE SPECIALIST, [facility] Unavailable Lorson RETAIL CUSTOMER SERVICE SPECIALIST, [facility] Unavailable Cayla Quiñonez Attending Unavailable Cayla Quiñonez Referring Unavailable Lorson RETAIL CUSTOMER SERVICE SPECIALIST, [facility] Unavailable Camron Shoemaker Referring Unavailable Camron Shoemaker Admitting Unavailable Camron Shoemaker Attending Unavailable Rene, Gray Consulting Unavailable Camron Shoemaker Consulting Unavailable Lorson RETAIL CUSTOMER SERVICE SPECIALIST, [facility] Unavailable Bortz Camron Referring Unavailable BorCamron ortiz Attending Unavailable Rene, Gray Consulting Unavailable Camron Shoemaker Consulting Unavailable Seth Paiz Attending Unavailable Cruz Arciniega Attending Unavailable Lorson RETAIL CUSTOMER SERVICE SPECIALIST, [facility] Unavailable Cayla Quiñonez Attending Unavailable Lorson RETAIL CUSTOMER SERVICE SPECIALIST, [place] Referring Unavailable Lorson RETAIL CUSTOMER SERVICE SPECIALIST, [place] Referring Unavailable Maverick YOUNG, Bing Attending Unavailable Lorson RETAIL CUSTOMER SERVICE SPECIALIST, [facility] Care Unavailable Lorson RETAIL CUSTOMER SERVICE SPECIALIST, [place] Referring Unavailable Maverick YOUNG Bing Attending Unavailable Lorson RETAIL CUSTOMER SERVICE SPECIALIST, [place] Primary Care Unavailable Juana CALLOWAY, Shira Primary Care Unavailable Camron Shoemaker Attending Unavailable Juana RETAIL CUSTOMER SERVICE SPECIALIST, [place] Referring Unavailable Juana RETAIL CUSTOMER SERVICE SPECIALIST-C, [place] Primary Care Provider [phone] Dr. Camron Shoemaker MD Attending Provider Dr. Camron Shoemaker MD Other Provider Juana RETAIL CUSTOMER SERVICE SPECIALIST-C, Shira Referring Provider Dr. Denys Babin DO Attending Provider Dr. Denys Babin DO Other Provider [phone] Medications Current Medications Medication Drug Class(es) Dates Sig (Normalized) Sig (Original) amoxicillin 875 mg / clavulanate 125 mg oral tablet (16 sources) Penicillin-class Antibacterial Start: 05-03-2025 Amoxicillin-Pot Clavulanate 875-125 mg tablet Active 1 {tbl} PO Q12H 14 0 May 03, 2025 12:00am Start: 03-18-2025 End: 03-25-2025 Amoxicillin-Pot Clavulanate 875-125 mg tablet Discontinued 1 {tbl} PO Q12H 6 3 0 March 18, 2025 12:00am March 25, 2025 1:09pm Cholecystitis Cholecystitis, unspecified Start: 12-16-2024 End: 12-31-2024 Amoxicillin-Pot Clavulanate 875-125 mg tablet Discontinued 1 {tbl} PO TWICE A DAY 14 7 0 December 16, 2024 12:00am December 31, 2024 10:06am [place] (Nk) (3 sources) Start: 04-07-2025 [place] (Nk) A ctive April 07, 2025 12:00am Start: 12-31-2024 [place] (Nk) A ctive December 31, 2024 12:00am Completed/Discontinued Medications Medication Drug Class(es) Dates Sig (Normalized) Sig (Original) oxyCODONE hydrochloride 5 mg oral tablet (6 sources) Opioid Agonist Start: 03-18-2025 End: 03-25-2025 take 1 tablet by mouth every six hours as needed for pain Oxycodone 5 mg Tablet Discontinued 5 mg PO EVERY 6 HOURS NEEDED as needed for Pain Score 6-10 10 3 0 March 18, 2025 March 25, 2025 1:09pm Status post laparoscopic cholecystectomy Acquired absence of other specified parts of digestive tract Problems Active Problems Problem Classification Problem Date Documented Date Episodic/Chronic Bacterial infection; unspecified site (17 sources) Bacteremia caused by Gram-negative bacteria; Translations: [...] surgery 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 I clarified that I recommend proceeding for surgery as soon as possible given his experience to date but would work with their schedule. I did stress that I would recommend no lifting greater than 10 pounds for 5 weeks immediately postop and then a gradual return to activity thereafter. 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, unspecified] Onset: Chronic Other liver diseases (20 sources) Jaundice; Translations: [Unspecified jaundice] 2024 Episodic Other liver diseases (20 sources) Elevated liver enzymes level; Translations: [High liver transaminase level] 12-14-2024 Episodic Other liver diseases (8 sources) ALT (SGPT) level raised; Translations: [High alanine aminotransferase (ALT) level] 01-03-2025 Episodic Other nutritional; endocrine; and metabolic disorders (20 sources) Hyperbilirubinemia; 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 Unclassified (1 source) Elevation of levels of liver transaminase levels; Translations: [Elevation of levels of liver transaminase levels] Onset: Unclassified (1 source) Status post laparoscopic cholecystectomy Unclassified (2 sources) Z90.49 - Acquired absence of other specified parts of digestive tract Past or Other Problems Problem Classification Problem Date Documented Da te Episodic/Chronic Fever of unknown origin (1 source) Fever, unspecified; Translations: [Fever, unspecified] Onset: 12-24-2024 Episodic Other liver diseases (2 sources) Unspecified jaundice; Translations: [Unspecified jaundice] Onset: 12-16-2024 Episodic Other nutritional; endocrine; and metabolic disorders (1 source) Overweight; Translations: [Overweight] Onset: 09-14-2024 Episodic Results Test Name Value Interpretation Reference Range Facility MR/PAT.ANEon 04-27-2025 MR/PAT.ANE Normal [facility] Surgery Visit Reporton 04-07 Surgery Visit Report Normal [facility] Surgery Visit Reporton 03-31 Surgery Visit Report Normal [facility] Hepatobilliary Imagingon Hepatobilliary Imaging Normal [facility] Surgery Visit Reporton 03-25 Surgery Visit Report Normal [facility] Absolute lymphocyte countOrd ered By: Camron Shoemaker on 03-18-2025 Lymphocytes Auto (Unsp spec) [#/Vol] 1.52 10*3/uL 0.83-4.51 [facility] Absolute neutrophil countOrd ered By: Camron Shoemaker on 03-18-2025 Neutrophils (Bld) [#/Vol] 6.8 10*3/uL 2.0-7.7 [facility] Anion gap in Serum or Plasma Ordered By: Camron Shoemaker on 03-18-2025 Anion gap [Moles/Vol] 10 mmol/L 5-15 [facility] Automated lymphocyte count a s percentage of total leukocytesOrdered By: Camron Shoemaker on 03-18-2025 Lymphocytes/100 WBC Auto (Unsp spec) 16.5 % Low 19-41 [facility] BUN/creatinine ratioOrdered By: Camron Shoemaker on 03-18-2025 Urea nitrogen/Creatinine [Mass ratio] 11.9 mg/mg 10-20 [facility] Basophil percentageOrdered B y: Camron Shoemaker on 03-18-2025 Basophils/100 WBC (Bld) 0.2 % 0-1 [facility] Bilirubin, totalOrdered By: Camron Shoemaker on 03-18-2025 Bilirubin [Mass/Vol] 0.85 mg/dL 0.00-1.30 [facility] CBC W/Diff, Automatedon - Absolute Lymph 1.52 X10 3/uL Normal 0.83-4.51 [facility] Comment on above: Performed By: #### L 100.0100, L500.4050 ####[facility] [address] [place], [address] Absolute Neut 6.8 X10 3/uL Normal 2.0-7.7 [facility] Comment on above: Performed By: #### L 100.0100, L500.4050 ####[facility] [address] [place], [address] Basophils/100 WBC (Bld) 0.2 % Normal 0-1 [facility] Comment on above: Performed By: #### L 100.0100, L500.4050 ####[facility] [address] [place], [address] Eosinophils/100 WBC (Bld) 0.0 % Normal 0-5 [facility] Comment on above: Performed By: #### L 100.0100, L500.4050 ####[facility] [address] [place], [address] Erythrocyte distribution width (RBC) [Ratio] 13.6 % Normal 11.6-14.6 [facility] Comment on above: Performed By: #### L 100.0100, L500.4050 ####[facility] [address] [place], [address] Hematocrit (Bld) [Volume fraction] 43.6 % Normal 40-54 [facility] Comment on above: Performed By: #### L 100.0100, L500.4050 ####[facility] [address] [place], [address] Hemoglobin (Bld) [Mass/Vol] 14.8 g/dL Normal 13.0-16.5 [facility] Comment on above: Performed By: #### L 100.0100, L500.4050 ####[facility] [address] [place], [address] IG% 0.500 Normal 0.0-0.9 [facility] Comment on above: Result Comment: IG% - Immature Granulocytes (promyelocytes, myelocytes andmetamyelocytes) > 1% indicates that a LEFT SHIFT is Present. Performed By: #### L 100.0100, L500.4050 ####[facility] [address] [place], [address] Lymphocytes/100 WBC (Bld) 16.5 % Low 19-41 [facility] Comment on above: Performed By: #### L 100.0100, L500.4050 ####[facility] [address] [place], [address] MCH (RBC) [Entitic mass] 29.4 pg Normal 27.0-32.0 [facility] Comment on above: Performed By: #### L 100.0100, L500.4050 ####[facility] [address] [place], [address] MCHC (RBC) [Mass/Vol] 33.9 g/dL Normal 32-36 [facility] Comment on above: Performed By: #### L 100.0100, L500.4050 ####[facility] [address] [place], [address] MCV (RBC) [Entitic vol] 86.5 fL Normal 80-94 [facility] Comment on above: Performed By: #### L 100.0100, L500.4050 ####[facility] [address] [place], [address] Monocytes/100 WBC (Bld) 8.4 % Normal 0-10 [facility] Comment on above: Performed By: #### L 100.0100, L500.4050 ####[facility] [address] [place], [address] Neutrophils/100 WBC (Bld) 74.4 % High 47-70 [facility] Comment on above: Performed By: #### L 100.0100, L500.4050 ####[facility] [address] [place], [address] Nucleated RBC (Bld) [#/Vol] 0 10*3/uL Normal 0-5 [facility] Comment on above: Performed By: #### L 100.0100, L500.4050 ####[facility] [address] [place], [address] Platelet mean volume (Bld) [Entitic vol] 8.7 fL Normal 6.2-12.0 [facility] Comment on above: Performed By: #### L 100.0100, L500.4050 ####[facility] [address] [place], [address] Platelets (Bld) [#/Vol] 264 10*3/uL Normal 150-450 [facility] Comment on above: Performed By: #### L 100.0100, L500.4050 ####[facility] [address] [place], [address] RBC (Bld) [#/Vol] 5.04 10*6/uL Normal 4.6-6.2 [facility] Comment on above: Performed By: #### L 100.0100, L500.4050 ####[facility] [address] [place], [address] RDW SD 42.8 fl Normal 35.1-43.9 [facility] Comment on above: Performed By: #### L 100.0100, L500.4050 ####[facility] [address] [place], [address] WBC (Bld) [#/Vol] 9.2 10*3/uL Normal 4.4-11.0 [facility] Comment on above: Performed By: #### L 100.0100, L500.4050 ####[facility] [address] [place], [address] Carbon dioxide, total [Moles /volume] in Central venous bloodOrdered By: Camron Shoemaker on 03-18-2025 CO2 [Moles/Vol] 25.4 mmol/L 21.0-32.0 [facility] Chloride assayOrdered By: Stephanie Shoemaker on 03-18-2025 Chloride [Moles/Vol] 104 mmol/L 98-108 [facility] Comprehensive Metabolic Prof ilon 03-18-2025 Albumin [Mass/Vol] 4.0 g/dL Normal 3.5-5.0 [facility] Comment on above: Performed By: #### L 100.0100, L500.4050 ####[facility] [address] [place], [address] Albumin/Globulin [Mass ratio] 1.5 {ratio} Normal 0.9-2.4 [facility] Comment on above: Performed By: #### L 100.0100, L500.4050 ####[facility] [address] [place], [address] ALK PHOS 64 U/L Normal 40-129 [facility] Comment on above: Performed By: #### L 100.0100, L500.4050 ####[facility] [address] [place], [address] ALT [Catalytic activity/Vol] 65 U/L High <=46 [facility] Comment on above: Performed By: #### L 100.0100, L500.4050 ####[facility] [address] [place], [address] AST [Catalytic activity/Vol] 43 U/L High <=37 [facility] Comment on above: Performed By: #### L 100.0100, L500.4050 ####[facility] [address] [place], [address] Bilirubin [Mass/Vol] 0.85 mg/dL Normal 0.00-1.30 [facility] Comment on above: Performed By: #### L 100.0100, L500.4050 ####[facility] [address] [place], [address] BUN/CRE 11.9 RATIO Normal 10-20 [facility] Comment on above: Performed By: #### L 100.0100, L500.4050 ####[facility] [address] [place], [address] Calcium [Mass/Vol] 9.2 mg/dL Normal 7.6-11.0 [facility] Comment on above: Performed By: #### L 100.0100, L500.4050 ####[facility] [address] [place], [address] Chloride [Moles/Vol] 104 mmol/L Normal 98-108 [facility] Comment on above: Performed By: #### L 100.0100, L500.4050 ####[facility] [address] [place], [address] CO2 [Moles/Vol] 25.4 mmol/L Normal 21.0-32.0 [facility] Comment on above: Performed By: #### L 100.0100, L500.4050 ####[facility] [address] [place], [address] Creatinine [Mass/Vol] 1.00 mg/dL Normal 0.70-1.20 [facility] Comment on above: Performed By: #### L 100.0100, L500.4050 ####[facility] [address] [place], [address] ECRCL 113.19 ml/min Normal 50-250 [facility] Comment on above: Performed By: #### L 100.0100, L500.4050 ####[facility] [address] [place], [address] GAP 10 Normal 5-15 [facility] Comment on above: Performed By: #### L 100.0100, L500.4050 ####[facility] [address] [place], [address] GFR/1.73 sq M.predicted among non-blacks MDRD (S/P/Bld) [Vol rate/Area] 97 mL/min/{1.73_m2} Normal >60 [facility] Comment on above: Result Comment: mL/m in/1.73m2 CKD-EPI Creatinine Equation (2020) Performed By: #### L 100.0100, L500.4050 ####[facility] [address] [place], [address] Globulin (S) [Mass/Vol] 2.6 g/dL Normal 2.2-4.2 [facility] Comment on above: Performed By: #### L 100.0100, L500.4050 ####[facility] [address] [place], [address] Glucose [Mass/Vol] 114 mg/dL High 70-99 [facility] Comment on above: Performed By: #### L 100.0100, L500.4050 ####[facility] [address] [place], [address] Potassium [Moles/Vol] 4.0 mmol/L Normal 3.3-5.1 [facility] Comment on above: Performed By: #### L 100.0100, L500.4050 ####[facility] [address] [place], [address] Sodium [Moles/Vol] 139 mmol/L Normal 133-145 [facility] Comment on above: Performed By: #### L 100.0100, L500.4050 ####[facility] [address] [place], [address] T PROT 6.6 g/dL Normal 5.9-8.4 [facility] Comment on above: Performed By: #### L 100.0100, L500.4050 ####[facility] [address] [place], [address] Urea nitrogen [Mass/Vol] 12 mg/dL Normal - [facility] Comment on above: Performed By: #### L 100.0100, L500.4050 ####[facility] [address] [place], [address] Discharge Instructionon 02-28 Discharge Instruction Normal [facility] Eosinophil percentageOrdered By: Camron Shoemaker on 03-18-2025 Eosinophils/100 WBC (Bld) 0.0 % 0-5 [facility] Erythrocyte distribution wid th ratioOrdered By: Camron Shoemaker on 03-18-2025 Erythrocyte distribution width (RBC) [Ratio] 13.6 % 11.6-14.6 [facility] Erythrocyte distribution wid th standard deviationOrdered By: Camron Shoemaker on 03-18-2025 Erythrocyte distribution width (RBC) [Ratio] 42.8 fl 35.1-43.9 [facility] Glomerular filtration rate ( GFR) estimation/1.73 sq m using serum, plasma, or whole bOrdered By: Camron Shoemaker on 03-18-2025 GFR/1.73 sq M.predicted among non-blacks MDRD (S/P/Bld) [Vol rate/Area] 97 mL/min/{1.73_m2} >60 [facility] Comment on above: mL/min/1.73m2 CKD-EP I Creatinine Equation (2020) Hematocrit Auto (Bld) [Volum e fraction]Ordered By: Camron Shoemaker on 03-18-2025 Hematocrit (Bld) [Volume fraction] 43.6 % 40-54 [facility] Hemoglobin measurementOrdere d By: Camron Shoemaker on 03-18-2025 Hemoglobin (Bld) [Mass/Vol] 14.8 g/dL 13.0-16.5 [facility] Immature granulocytes/100 WB C Auto (Bld)Ordered By: Camron Shoemaker on 03-18-2025 Immature granulocytes/100 WBC (Bld) 0.500 % 0.0-0.9 [facility] Comment on above: IG% - Immature Granu locytes (promyelocytes, myelocytes and metamyelocytes) > 1% indicates that a LEFT SHIFT is Present. Laboratory - Chemistry and C hemistry - challengeOrdered By: Camron Shoemaker on 03-18-2025 AST [Catalytic activity/Vol] 43 U/L High <38 [facility] MCV (mean corpuscular volume ) determinationOrdered By: Camron Shoemaker on 03-18-2025 MCV (RBC) [Entitic vol] 86.5 fL 80-94 [facility] Mean corpuscular hemoglobin (MCH) determinationOrdered By: Camron Shoemaker on 03-18-2025 MCH (RBC) [Entitic mass] 29.4 pg 27.0-32.0 [facility] Mean corpuscular hemoglobin concentration (MCHC) determinationOrdered By: Camron Shoemaker on 03-18-2025 MCHC (RBC) [Mass/Vol] 33.9 g/dL 32-36 [facility] Mean platelet volume determi nationOrdered By: Camron Shoemaker on 03-18-2025 Platelet mean volume (Bld) [Entitic vol] 8.7 fL 6.2-12.0 [facility] Monocyte percentageOrdered B y: Camron Shoemaker on 03-18-2025 Monocytes/100 WBC (Bld) 8.4 % 0-10 [facility] Neutrophil percentageOrdered By: Camron Shoemaker on 03-18-2025 Neutrophils/100 WBC (Bld) 74.4 % High 47-70 [facility] Nucleated red blood cell per centageOrdered By: Camron Shoemaker on 03-18-2025 Nucleated RBC/100 WBC (Bld) [Ratio] 0 % 0-5 [facility] Platelet countOrdered By: Stephanie Shoemaker on 03-18-2025 Platelets (Bld) [#/Vol] 264 10*3/uL 150-450 [facility] Potassium measurement (mass/ volume)Ordered By: Camron Shoemaker on 03-18-2025 Potassium (Unsp spec) [Mass/Vol] 4.0 mmol/L 3.3-5.1 [facility] RBC Auto (Bld) [#/Vol]Ordere d By: Camron Shoemaker on 03-18-2025 RBC (Bld) [#/Vol] 5.04 10*6/uL 4.6-6.2 [facility] Serum creatinine measurement (mass/volume)Ordered By: Camron Shoemaker on 03-18-2025 Creatinine [Mass/Vol] 1.00 mg/dL 0.70-1.20 [facility] Serum globulin measurementOr dered By: Camron Shoemaker on 03-18-2025 Globulin (S) [Mass/Vol] 2.6 g/dL 2.2-4.2 [facility] Serum glucose measurement (m ass/volume)Ordered By: Camron Shoemaker on 03-18-2025 Glucose [Mass/Vol] 114 mg/dL High 70-99 [facility] Serum or plasma alanine mays otransferase (ALT) measurementOrdered By: Camron Shoemaker on 03-18-2025 ALT [Catalytic activity/Vol] 65 U/L High <47 [facility] Serum or plasma albumin marquise urement (mass/volume)Ordered By: Camron Shoemaker on 03-18-2025 Albumin [Mass/Vol] 4.0 g/dL 3.5-5.0 [facility] Serum or plasma albumin/glob ulin mass ratioOrdered By: Camron Shoemaker on 03-18-2025 Albumin/Globulin [Mass ratio] 1.5 {ratio} 0.9-2.4 [facility] Serum or plasma alkaline daniel sphatase measurementOrdered By: Camron Shoemaker on 03-18-2025 ALP [Catalytic activity/Vol] 64 U/L 40-129 [facility] Serum or plasma calcium marquise urement (mass/volume)Ordered By: Camron Shoemaker on 03-18-2025 Calcium [Mass/Vol] 9.2 mg/dL 7.6-11.0 [facility] Serum or plasma urea nitroge n measurement (mass/volume)Ordered By: Camron Shoemaker on 03-18-2025 Urea nitrogen [Mass/Vol] 12 mg/dL - [facility] Sodium levelOrdered By: Kan flores Navid on 03-18-2025 Sodium [Moles/Vol] 139 mmol/L 133-145 [facility] Total proteinOrdered By: Anuj pa Navid on 03-18-2025 Protein [Mass/Vol] 6.6 g/dL 5.9-8.4 [facility] White blood cell (WBC) count Ordered By: Camron Shoemaker on 03-18-2025 WBC (Bld) [#/Vol] 9.2 10*3/uL 4.4-11.0 [facility] MR/PAT.ANEon 03-17-2025 MR/PAT.ANE Normal [facility] MR/POSTOP.ANEon 03-17-2025 MR/POSTOP.ANE Normal [facility] MR/POSTOP.ANE Normal [facility] MR/FPQVQMOJ7gu 03-17-2025 MR/POSTOPAN2 Normal [facility] Operative Reporton Operative Report Normal [facility] Surgery Specimen Level IIIon 03-17-2025 Surgery Specimen Level III Normal [facility] Comment on above: Performed By: #### P SUIII ####[facility] [address] [facility] [place], [address] 12 Lead EKGon 03-08-2025 12 Lead EKG Normal [facility] Electrocardiogram reportOrde red By: Camron Redd on 03-08-2025 EKG study [facility] Cardiovascular Services [address] [place] [address] 12 Lead EKG 03/08/25 0835 MR#: [id number] Acct: [id number] Name: DIANE CONNORS Rep #:[id number] : 1985 39 From: Camron randall MD Attending Dr: Dr. Camron Shoemaker MD Status: PRE [facility] Ordering Dr: Gray López MD Date: Location: [facility] Sex: M C Admitted: Test Reason : PREOP Blood Pressure : */* mmHG Vent. Rate : 71 BPM Atrial Rate : 71 BPM P-R Int : 182 ms QRS Dur : 114 ms QT Int : 380 ms P-R-T Axes : 46 -23 33 degrees QTcB Int : 412 ms Normal sinus rhythm Incomplete right bundle branch block Borderline ECG When compared with ECG of 15-Dec-2024 04:48, No significant change was found Confirmed by Camron Redd ([id number]), editorial specialist CHAVA CASEY ([id number]) on 03/08/2025 10:43:33 AM Referred By: Camron Shoemaker Confirmed By: Camron Redd 03/08/25 1043 Date _ Camron Redd MD CC: AGUILAR Arias; Dr. Gray López MD; Dr. Camron Shoemaker MD ~ Signed [facility] Work Phone: Liver Profileon 03-08-2025 Albumin [Mass/Vol] 4.4 g/dL Normal 3.5-5.0 [facility] Comment on above: Performed By: #### L 500.3400 ####[facility] [address] [place], [place], [address] ALK PHOS 73 U/L Normal 40-129 [facility] Comment on above: Performed By: #### L 500.3400 ####[facility] [address] [place], [place], [address] ALT [Catalytic activity/Vol] 38 U/L Normal <=46 [facility] Comment on above: Performed By: #### L 500.3400 ####[facility] [address] [place], [place], [address] AST [Catalytic activity/Vol] 33 U/L Normal <=37 [facility] Comment on above: Performed By: #### L 500.3400 ####[facility] [address] [place], [place], [address] Bilirubin [Mass/Vol] 0.58 mg/dL Normal 0.00-1.30 [facility] Comment on above: Performed By: #### L 500.3400 ####[facility] [address] [place], [place], [address] Bilirubin.direct [Mass/Vol] 0.22 mg/dL Normal 0.00-0.30 [facility] Comment on above: Performed By: #### L 500.3400 ####[facility] [address] [place], [place], [address] Globulin (S) [Mass/Vol] 2.7 g/dL Normal 2.2-4.2 [facility] Comment on above: Performed By: #### L 500.3400 ####[facility] [address] [place], [place], [address] T PROT 7.1 g/dL Normal 5.9-8.4 [facility] Comment on above: Performed By: #### L 500.3400 ####[facility] [address] [place], [place], [address] MR/PAT.ANEon 03-08-2025 MR/PAT.ANE Normal [facility] MR/PAT.ANE Normal [facility] Hepatobilliary Imagingon Hepatobilliary Imaging Normal [facility] Misc.on 01-09-2025 [facility] Misc. COMMENT Normal . [facility] Comment on above: Order Comment: [id number] 5APOLIPOPROTEIN B Result Comment: Test Ordered: [id number] Apolipoprotein BApolipoprotein B 122 [H ] mg/dL Reference Range: <90 Desirable < 90 Borderline High 90 - 99 High 100 - 130 Very High >130 ASCVD RISK THERAPEUTIC TARGET CATEGORY APO B (mg/dL) Very High Risk <80 (if extreme risk <70) High Risk <90 Moderate Risk <90Performed at: [facility] [address] [id number] Director: Kelly Jansen MD, Phone: [phone] at: [facility] [place], [place] [id number] Director: Raj Dick PhD, Phone: [phone] Performed By: #### L 3410.9998, L501.1400, L300.4700, L500.4100, L803.0600, L3400.4600, L501.6710, L3100.7870 ####[facility] [address] [place], [place], [address] CRP, High Sensitivity 613804 on 01-07-2025 CRP, HIGH SENS 2.61 mg/L Normal 0.00-3.00 [facility] Comment on above: Result Comment: Rela tive Risk for Future Cardiovascular Event Low <1.00 Average 1.00 - 3.00 High >3.00 Performed By: #### L 3410.9998, L501.1400, L300.4700, L500.4100, L803.0600, L3400.4600, L501.6710, L3100.7870 ####[facility] [address] [place], [address] L803.0600on 01-07-2025 HOMOCYSTEINE 9.0 umol/L Normal 0.0-14.5 [facility] Comment on above: Result Comment: Perf ormed at: [address] [id number] Director: Raj Dick PhD, Phone: [phone] Performed By: #### L 3410.9998, L501.1400, L300.4700, L500.4100, L803.0600, L3400.4600, L501.6710, L3100.7870 ####[facility] [address] [place], [address] [facility] Misc.on 01-07-2025 [facility] Misc. COMMENT Normal . [facility] Comment on above: Order Comment: [id number] 7CRP QUANT Result Comment: Test Ordered: [id number] C-Reactive Protein, QuantC-Reactive Protein, Quant 2 mg/L CB Reference Range: 0-10Performed at: [facility]ob[facility]k[address] [place], [place] [id number] Director: Raj Dick PhD, Phone: [phone] Performed By: #### L 3410.9998 ####[facility] [address] [place], [address] Lipoprotein Aon 01-07-2025 Lipoprotein a [Moles/Vol] 16.5 nmol/L Normal <75.0 [facility] Comment on above: Result Comment: Note : Values greater than or equal to 75.0 nmol/L may indicate an independent risk factor for CHD, but must be evaluated with caution when applied to non- populations due to the influence of genetic factors on Lp(a) across ethnicities.Performed at: [facility] HospitalXrzcou[address] [place], [place] [id number] Director: Raj Dick PhD, Phone: [phone] Performed By: #### L 3410.9998, L501.1400, L300.4700, L500.4100, L803.0600, L3400.4600, L501.6710, L3100.7870 ####[facility] [address] [place], [address] C-reactive protein measureme nt by high sensitivity methodOrdered By: Michela Sal on 01-05-2025 C-reactive protein measurement by high sensitivity method 2.61 mg/L 0.00-3.00 [facility] Comment on above: Relative Risk for Fu ture Cardiovascular Event Low <1.00 Average 1.00 - 3.00 High >3.00 CRPon 01-05-2025 C-REACTIVE PROT < 3.00 Normal 0.0-3.0 [facility] Comment on above: Performed By: #### L 3410.9998, L501.1400, L300.4700, L500.4100, L803.0600, L3400.4600, L501.6710, L3100.7870 ####[facility] [address] [place], [place], [address] Calculated very low density lipoprotein (VLDL) cholesterol measurementOrdered By: Michela Sal on 01-05-2025 Calculated very low density lipoprotein (VLDL) cholesterol measurement 21 mg/dL 5-40 [facility] Fibrinogenon 01-05-2025 FIBRINOGEN 378 mg/dl Normal 203-444 [facility] Comment on above: Performed By: #### L 3410.9998, L501.1400, L300.4700, L500.4100, L803.0600, L3400.4600, L501.6710, L3100.7870 ####[facility] [address] [place], [place], [address] LDL calc ser/plasOrdered By: Michela Sal on 01-05-2025 Cholesterol in LDL [Mass/Vol] 138 mg/dL [facility] Comment on above: Fbfcxcdpei=419-000 m g/dL & Higher Khaa=064 mg/dL or greater Result Comment: Bord tvkree=346-816 mg/dL Higher Jhvf=495 mg/dL or greater Performed By: #### L 3410.9998, L501.1400, L300.4700, L500.4100, L803.0600, L3400.4600, L501.6710, L3100.7870 ####[facility] [address] [place], [place], [address] Lipid Profileon 01-05-2025 CHOL:HDL 4.03 Normal [facility] Comment on above: Performed By: #### L 3410.9998, L501.1400, L300.4700, L500.4100, L803.0600, L3400.4600, L501.6710, L3100.7870 ####[facility] [address] [place], [place], [address] Cholesterol in VLDL [Mass/Vol] 21 mg/dL Normal 5-40 [facility] Comment on above: Performed By: #### L 3410.9998, L501.1400, L300.4700, L500.4100, L803.0600, L3400.4600, L501.6710, L3100.7870 ####[facility] [address] [place], [address] Lipoprotein a [Mass/Vol]Orde red By: Michela Sal on 01-05-2025 Lipoprotein a [Moles/Vol] 16.5 nmol/L <75.0 [facility] Comment on above: Note: Values greater than or equal to 75.0 nmol/L may indicate an independent risk factor for CHD, but must be evaluated with caution when applied to non- populations due to the influence of genetic factors on Lp(a) across ethnicities.Performed at: [facility] [place] [id number] Director: Raj Dick PhD, Phone: [phone] Screening total cholesterol/ high density lipoprotein (HDL) cholesterol ratioOrdered By: Michela Sal on 01-05-2025 Cholesterol.total/Cho lesterol in HDL [Mass ratio] 4.03 {ratio} [facility] Serum or plasma C reactive p rotein measurement (mass/volume)Ordered By: Michela Sal on 01-05-2025 CRP [Mass/Vol] mg/L 0.0-3.0 [facility] Serum or plasma cholesterol in HDL measurement (mass/volume)Ordered By: Michela Sal on 01-05-2025 Cholesterol in HDL [Mass/Vol] 52 mg/dL >40 [facility] Comment on above: National Cholesterol Education Program [...] sex and age. Performed By: #### L 3410.9998, L501.1400, L300.4700, L500.4100, L803.0600, L3400.4600, L501.6710, L3100.7870 ####[facility] [address] [place], [place], [address] Serum or plasma cholesterol measurement (mass/volume)Ordered By: Michela Sal on 01-05-2025 Cholesterol [Mass/Vol] 211 mg/dL High <201 [facility] Comment on above: Cholesterol level, D esirable <200 mg/dLBorderline high cholesterol 200-239 mg/dLHigh cholesterol >=240 mg/dLRecommendations of the NCEP Adult Treatment Panel for the following risk-cutoff thresholds for the [place] population. Result Comment: Chol esterol level, Desirable <200 mg/dLBorderline high cholesterol 200-239 mg/dLHigh cholesterol >=240 mg/dLRecommendations of the NCEP Adult Treatment Panel for thefollowing risk-cutoff thresholds for the [place] Americanpopulation. Performed By: #### L 3410.9998, L501.1400, L300.4700, L500.4100, L803.0600, L3400.4600, L501.6710, L3100.7870 ####[facility] [address] [place], [place], [address] Serum or plasma uric acid me asurement (mass/volume)Ordered By: Michela Sal on 01-05-2025 Urate [Mass/Vol] 5.1 mg/dL 3.5-7.2 [facility] Comment on above: The drugs N-Acetylcy steine and Metamizole may falsely depress this assay. Triglycerides measurementOrd ered By: Michela Sal on 01-05-2025 Triglyceride [Mass/Vol] 103 mg/dL <199 [facility] Comment on above: The drugs N-Acetylcy steine and Metamizole may falsely depress this assay. Normal range: <150 mg/dLBorderline High: 150-199 mg/dLHigh: 200-499 mg/dLVery High: >500 mg/dL Result Comment: The drugs N-Acetylcysteine and Metamizole may falselydepress this assay.Normal range: <150 mg/dLBorderline High: 150-199 mg/dLHigh: 200-499 mg/dLVery High: >500 mg/dL Performed By: #### L 3410.9998, L501.1400, L300.4700, L500.4100, L803.0600, L3400.4600, L501.6710, L3100.7870 ####[facility] [address] [place], [address] Uric Acidon 01-05-2025 URIC 5.1 mg/dL Normal 3.5-7.2 [facility] Comment on above: Result Comment: The drugs N-Acetylcysteine and Metamizole may falselydepress this assay. Performed By: #### L 3410.9998, L501.1400, L300.4700, L500.4100, L803.0600, L3400.4600, L501.6710, L3100.7870 ####[facility] [address] [place], [place], [address] Bilirubin directOrdered By: Cayla Quiñonez on 12-31-2024 Bilirubin.direct [Mass/Vol] 0.42 mg/dL High 0.00-0.30 [facility] Bilirubin, totalOrdered By: Cayla Quiñonez on 12-31-2024 Bilirubin [Mass/Vol] 0.64 mg/dL 0.00-1.30 [facility] Gastroenterology Visit Repor ton 12-31-2024 Gastroenterology Visit Report Normal [facility] Laboratory - Chemistry and C hemistry - challengeOrdered By: Cayla Quiñonez on 12-31-2024 AST [Catalytic activity/Vol] 38 U/L <38 [facility] Liver Profileon 12-31-2024 Albumin [Mass/Vol] 4.0 g/dL Normal 3.5-5.0 [facility] Comment on above: Performed By: #### L 500.3400 ####[facility] [address] [place], [address] ALK PHOS 112 U/L Normal 40-129 [facility] Comment on above: Performed By: #### L 500.3400 ####[facility] [address] [place], [address] ALT [Catalytic activity/Vol] 64 U/L High <=46 [facility] Comment on above: Performed By: #### L 500.3400 ####[facility] [address] [place], [address] AST [Catalytic activity/Vol] 38 U/L Normal <=37 [facility] Comment on above: Performed By: #### L 500.3400 ####[facility] [address] [place], [address] Bilirubin [Mass/Vol] 0.64 mg/dL Normal 0.00-1.30 [facility] Comment on above: Performed By: #### L 500.3400 ####[facility] [address] [place], [address] Bilirubin.direct [Mass/Vol] 0.42 mg/dL High 0.00-0.30 [facility] Comment on above: Performed By: #### L 500.3400 ####[facility] [address] [place], [address] Globulin (S) [Mass/Vol] 3.1 g/dL Normal 2.2-4.2 [facility] Comment on above: Performed By: #### L 500.3400 ####[facility] [address] [place], [address] T PROT 7.0 g/dL Normal 5.9-8.4 [facility] Comment on above: Performed By: #### L 500.3400 ####[facility] [address] [place], [place], [address] Serum globulin measurementOr dered By: Cayla Quiñonez on 12-31-2024 Globulin (S) [Mass/Vol] 3.1 g/dL 2.2-4.2 [facility] Serum or plasma alanine mays otransferase (ALT) measurementOrdered By: Cayla Quiñonez on 12-31-2024 ALT [Catalytic activity/Vol] 64 U/L High <47 [facility] Serum or plasma albumin marquise urement (mass/volume)Ordered By: Cayla Quiñonez on 12-31-2024 Albumin [Mass/Vol] 4.0 g/dL 3.5-5.0 [facility] Serum or plasma alkaline danile sphatase measurementOrdered By: Cayla Quiñonez on 12-31-2024 ALP [Catalytic activity/Vol] 112 U/L 40-129 [facility] Surgery Visit Reporton 12-31 Surgery Visit Report Normal [facility] Total proteinOrdered By: Vanessa Quiñonez on 12-31-2024 Protein [Mass/Vol] 7.0 g/dL 5.9-8.4 [facility] Culture, Blood (WB)on 2024 CUB Normal [facility] Comment on above: Performed By: #### M 200.1000 ####[facility] [address] [place], [address] Culture, Blood (WB)on 2024 CUB Normal [facility] Comment on above: Performed By: #### M 200.1000 ####[facility] [address] [place], [address] Liver Profileon 12-18-2024 ALB Normal 3.5-5.0 [facility] Comment on above: Result Comment: Canc elled via OM: Order cancelled - Patient discharged Performed By: #### L 500.5740 ####[facility] [address] [place], [address] ALK PHOS Normal 40-129 [facility] Comment on above: Result Comment: Canc elled via OM: Order cancelled - Patient discharged Performed By: #### L 500.3400 ####[facility] [address] [place], [address] ALT Normal <=46 [facility] Comment on above: Result Comment: Canc elled via OM: Order cancelled - Patient discharged Performed By: #### L 500.3400 ####[facility] [address] [place], [address] AST Normal <=37 [facility] Comment on above: Result Comment: Canc elled via OM: Order cancelled - Patient discharged Performed By: #### L 500.3400 ####[facility] [address] [place], [address] D BILI Normal 0.00-0.30 [facility] Comment on above: Result Comment: Canc elled via OM: Order cancelled - Patient discharged Performed By: #### L 500.3400 ####[facility] [address] [place], [address] T BILI Normal 0.00-1.30 [facility] Comment on above: Result Comment: Canc elled via OM: Order cancelled - Patient discharged Performed By: #### L 500.3400 ####[facility] [address] [place], [address] T PROT Normal 5.9-8.4 [facility] Comment on above: Result Comment: Canc elled via OM: Order cancelled - Patient discharged Performed By: #### L 500.3400 ####[facility] [address] [place], [address] CBC W/Diff, Automatedon -2 0-2024 Absolute Neut Normal 2.0-7.7 [facility] Comment on above: Result Comment: Canc elled via OM: Order cancelled - Patient discharged Performed By: #### L 500.3400, L100.0100 ####[facility] [address] [place], [address] HCT Normal 40-54 [facility] Comment on above: Result Comment: Canc elled via OM: Order cancelled - Patient discharged Performed By: #### L 500.3400, L100.0100 ####[facility] [address] [place], [address] HGB Normal 13.0-16.5 [facility] Comment on above: Result Comment: Canc elled via OM: Order cancelled - Patient discharged Performed By: #### L 500.3400, L100.0100 ####[facility] [address] [place], [address] MCH Normal 27.0-32.0 [facility] Comment on above: Result Comment: Canc elled via OM: Order cancelled - Patient discharged Performed By: #### L 500.3400, L100.0100 ####[facility] [address] [place], [address] MCHC Normal 32-36 [facility] Comment on above: Result Comment: Canc elled via OM: Order cancelled - Patient discharged Performed By: #### L 500.3400, L100.0100 ####[facility] [address] [place], [address] MCV Normal 80-94 [facility] Comment on above: Result Comment: Canc elled via OM: Order cancelled - Patient discharged Performed By: #### L 500.3400, L100.0100 ####[facility] [address] [place], [address] NEUT% Normal 47-70 [facility] Comment on above: Result Comment: Canc elled via OM: Order cancelled - Patient discharged Performed By: #### L 500.3400, L100.0100 ####[facility] [address] [place], [address] PLT Normal 150-450 [facility] Comment on above: Result Comment: Canc elled via OM: Order cancelled - Patient discharged Performed By: #### L 500.3400, L100.0100 ####[facility] [address] [place], [address] RBC Normal 4.6-6.2 [facility] Comment on above: Result Comment: Canc elled via OM: Order cancelled - Patient discharged Performed By: #### L 500.3400, L100.0100 ####[facility] [address] [place], [address] RDW CV Normal 11.6-14.6 [facility] Comment on above: Result Comment: Canc elled via OM: Order cancelled - Patient discharged Performed By: #### L 500.3400, L100.0100 ####[facility] [address] [place], [address] RDW SD Normal 35.1-43.9 [facility] Comment on above: Result Comment: Canc elled via OM: Order cancelled - Patient discharged Performed By: #### L 500.3400, L100.0100 ####[facility] [address] [place], [address] WBC Normal 4.4-11.0 [facility] Comment on above: Result Comment: Canc elled via OM: Order cancelled - Patient discharged Performed By: #### L 500.3400, L100.0100 ####[facility] [address] [place], [address] L501.5101on 12-17-2024 GGTP 174 IU/L Abnormal 0-65 [facility] Comment on above: Result Comment: Perf ormed at: - [facility] [address] [id number] Director: Raj Dick PhD, Phone: [phone] Performed By: #### L 501.5101 ####[facility] [address] [place], [address] Liver Profileon 12-17-2024 ALB Normal 3.5-5.0 [facility] Comment on above: Result Comment: Canc elled via OM: Order cancelled - Patient discharged Performed By: #### L 500.3400, L100.0100 ####[facility] [address] [place], [address] ALK PHOS Normal 40-129 [facility] Comment on above: Result Comment: Canc elled via OM: Order cancelled - Patient discharged Performed By: #### L 500.3400, L100.0100 ####[facility] [address] [place], [address] ALT Normal <=46 [facility] Comment on above: Result Comment: Canc elled via OM: Order cancelled - Patient discharged Performed By: #### L 500.3400, L100.0100 ####[facility] [address] [place], [address] AST Normal <=37 [facility] Comment on above: Result Comment: Canc elled via OM: Order cancelled - Patient discharged Performed By: #### L 500.3400, L100.0100 ####[facility] [address] [place], [address] D BILI Normal 0.00-0.30 [facility] Comment on above: Result Comment: Canc elled via OM: Order cancelled - Patient discharged Performed By: #### L 500.3400, L100.0100 ####[facility] [address] [place], [address] T BILI Normal 0.00-1.30 [facility] Comment on above: Result Comment: Canc elled via OM: Order cancelled - Patient discharged Performed By: #### L 500.3400, L100.0100 ####[facility] [address] [place], [address] T PROT Normal 5.9-8.4 [facility] Comment on above: Result Comment: Canc elled via OM: Order cancelled - Patient discharged Performed By: #### L 500.3400, L100.0100 ####[facility] [address] [place], [address] Absolute lymphocyte countOrd ered By: Francesco Lui on 12-16-2024 Lymphocytes Auto (Unsp spec) [#/Vol] 1.28 10*3/uL 0.83-4.51 [facility] Absolute neutrophil countOrd ered By: Francesco Lui on 12-16-2024 Neutrophils (Bld) [#/Vol] 3.7 10*3/uL 2.0-7.7 [facility] Anion gap in Serum or Plasma Ordered By: Francesco Lui on 12-16-2024 Anion gap [Moles/Vol] 10 mmol/L 02-11 [facility] Automated lymphocyte count a s percentage of total leukocytesOrdered By: Francesco Lui on 12-16-2024 Lymphocytes/100 WBC Auto (Unsp spec) 20.8 % [facility] BUN/creatinine ratioOrdered By: Francesco Lui on 12-16-2024 Urea nitrogen/Creatinine [Mass ratio] 12.7 mg/mg - [facility] Basic Metabolic Profile (BMP )on 12-16-2024 BUN/CRE 12.7 RATIO Normal - [facility] Comment on above: Performed By: #### L 100.0100, L500.3400, L500.2500 ####[facility] [address] [place], [address] Calcium [Mass/Vol] 9.0 mg/dL Normal 7.6-11.0 [facility] Comment on above: Performed By: #### L 100.0100, L500.3400, L500.2500 ####[facility] [address] [place], [address] Chloride [Moles/Vol] 104 mmol/L Normal 98-108 [facility] Comment on above: Performed By: #### L 100.0100, L500.3400, L500.2500 ####[facility] [address] [place], [address] CO2 [Moles/Vol] 24.8 mmol/L Normal 21.0-32.0 [facility] Comment on above: Performed By: #### L 100.0100, L500.3400, L500.2500 ####[facility] [address] [place], [address] Creatinine [Mass/Vol] 1.06 mg/dL Normal 0.70-1.20 [facility] Comment on above: Performed By: #### L 100.0100, L500.3400, L500.2500 ####[facility] [address] [place], [address] ECRCL 105.07 ml/min Normal 50-250 [facility] Comment on above: Performed By: #### L 100.0100, L500.3400, L500.2500 ####[facility] [address] [place], [address] GAP 10 Normal 5-15 [facility] Comment on above: Performed By: #### L 100.0100, L500.3400, L500.2500 ####[facility] [address] [place], [address] GFR/1.73 sq M.predicted among non-blacks MDRD (S/P/Bld) [Vol rate/Area] 90 mL/min/{1.73_m2} Normal >60 [facility] Comment on above: Result Comment: mL/m in/1.73m2 CKD-EPI Creatinine Equation (2020) Performed By: #### L 100.0100, L500.3400, L500.2500 ####[facility] [address] [place], [address] Glucose [Mass/Vol] 85 mg/dL Normal 70-99 [facility] Comment on above: Performed By: #### L 100.0100, L500.3400, L500.2500 ####[facility] [address] [place], [address] Potassium [Moles/Vol] 4.0 mmol/L Normal 3.3-5.1 [facility] Comment on above: Performed By: #### L 100.0100, L500.3400, L500.2500 ####[facility] [address] [place], [address] Sodium [Moles/Vol] 139 mmol/L Normal 133-145 [facility] Comment on above: Performed By: #### L 100.0100, L500.3400, L500.2500 ####[facility] [address] [place], [address] Urea nitrogen [Mass/Vol] 14 mg/dL Normal - [facility] Comment on above: Performed By: #### L 100.0100, L500.3400, L500.2500 ####[facility] [address] [place], [address] Basophil percentageOrdered B y: Francesco Lui on 12-16-2024 Basophils/100 WBC (Bld) 0.8 % 0- [facility] Bilirubin directOrdered By: Francesco Lui on 12-16-2024 Bilirubin.direct [Mass/Vol] 1.88 mg/dL High 0.00-0.30 [facility] Bilirubin, totalOrdered By: Francesco Lui on 12-16-2024 Bilirubin [Mass/Vol] 2.75 mg/dL High 0.00-1.30 [facility] CBC W/Diff, Automatedon 11-28 Absolute Lymph 1.28 X10 3/uL Normal 0.83-4.51 [facility] Comment on above: Performed By: #### L 100.0100, L500.3400, L500.2500 ####[facility] [address] [place], [address] Absolute Neut 3.7 X10 3/uL Normal 2.0-7.7 [facility] Comment on above: Performed By: #### L 100.0100, L500.3400, L500.2500 ####[facility] [address] [place], [address] Basophils/100 WBC (Bld) 0.8 % Normal 0-1 [facility] Comment on above: Performed By: #### L 100.0100, L500.3400, L500.2500 ####[facility] [address] [place], [address] Eosinophils/100 WBC (Bld) 2.3 % Normal 0-5 [facility] Comment on above: Performed By: #### L 100.0100, L500.3400, L500.2500 ####[facility] [address] [place], [address] Erythrocyte distribution width (RBC) [Ratio] 13.0 % Normal 11.6-14.6 [facility] Comment on above: Performed By: #### L 100.0100, L500.3400, L500.2500 ####[facility] [address] [place], [address] Hematocrit (Bld) [Volume fraction] 39.8 % Low 40-54 [facility] Comment on above: Performed By: #### L 100.0100, L500.3400, L500.2500 ####[facility] [address] [place], [address] Hemoglobin (Bld) [Mass/Vol] 13.5 g/dL Normal 13.0-16.5 [facility] Comment on above: Performed By: #### L 100.0100, L500.3400, L500.2500 ####[facility] [address] [place], [address] IG% 1.600 High 0.0-0.9 [facility] Comment on above: Result Comment: IG% - Immature Granulocytes (promyelocytes, myelocytes andmetamyelocytes) > 1% indicates that a LEFT SHIFT is Present. Performed By: #### L 100.0100, L500.3400, L500.2500 ####[facility] [address] [place], [address] Lymphocytes/100 WBC (Bld) 20.8 % Normal 19-41 [facility] Comment on above: Performed By: #### L 100.0100, L500.3400, L500.2500 ####[facility] [address] [place], [address] MCH (RBC) [Entitic mass] 29.2 pg Normal 27.0-32.0 [facility] Comment on above: Performed By: #### L 100.0100, L500.3400, L500.2500 ####[facility] [address] [place], [address] MCHC (RBC) [Mass/Vol] 33.9 g/dL Normal 32-36 [facility] Comment on above: Performed By: #### L 100.0100, L500.3400, L500.2500 ####[facility] [address] [place], [address] MCV (RBC) [Entitic vol] 86.0 fL Normal 80-94 [facility] Comment on above: Performed By: #### L 100.0100, L500.3400, L500.2500 ####[facility] [address] [place], [address] Monocytes/100 WBC (Bld) 13.5 % High 0-10 [facility] Comment on above: Performed By: #### L 100.0100, L500.3400, L500.2500 ####[facility] [address] [place], [address] Neutrophils/100 WBC (Bld) 61.0 % Normal 47-70 [facility] Comment on above: Performed By: #### L 100.0100, L500.3400, L500.2500 ####[facility] [address] [place], [address] Nucleated RBC (Bld) [#/Vol] 0 10*3/uL Normal 0-5 [facility] Comment on above: Performed By: #### L 100.0100, L500.3400, L500.2500 ####[facility] [address] [place], [address] Platelet mean volume (Bld) [Entitic vol] 9.8 fL Normal 6.2-12.0 [facility] Comment on above: Performed By: #### L 100.0100, L500.3400, L500.2500 ####[facility] [address] [place], [address] Platelets (Bld) [#/Vol] 153 10*3/uL Normal 150-450 [facility] Comment on above: Performed By: #### L 100.0100, L500.3400, L500.2500 ####[facility] [address] [place], [address] RBC (Bld) [#/Vol] 4.63 10*6/uL Normal 4.6-6.2 [facility] Comment on above: Performed By: #### L 100.0100, L500.3400, L500.2500 ####[facility] [address] [place], [address] RDW SD 40.5 fl Normal 35.1-43.9 [facility] Comment on above: Performed By: #### L 100.0100, L500.3400, L500.2500 ####[facility] [address] [place], [address] WBC (Bld) [#/Vol] 6.1 10*3/uL Normal 4.4-11.0 [facility] Comment on above: Performed By: #### L 100.0100, L500.3400, L500.2500 ####[facility] [address] [place], [address] Carbon dioxide, total [Moles /volume] in Central venous bloodOrdered By: Francesco Lui on 12-16-2024 CO2 [Moles/Vol] 24.8 mmol/L 21.0-32.0 [facility] Chloride assayOrdered By: Gracie Lui on 12-16-2024 Chloride [Moles/Vol] 104 mmol/L 98-108 [facility] Consultation - Infectious Dx on 12-16-2024 Consultation - Infectious Dx Normal [facility] Consultation - Surgicalon Consultation - Surgical Normal [facility] Discharge Instructionon 11-28 Discharge Instruction Normal [facility] Eosinophil percentageOrdered By: Francesco Lui on 12-16-2024 Eosinophils/100 WBC (Bld) 2.3 % 0-5 [facility] Erythrocyte distribution wid th ratioOrdered By: Francesco Lui on 12-16-2024 Erythrocyte distribution width (RBC) [Ratio] 13.0 % 11.6-14.6 [facility] Erythrocyte distribution wid th standard deviationOrdered By: Francesco Lui on 12-16-2024 Erythrocyte distribution width (RBC) [Entitic vol] 40.5 fL 35.1-43.9 [facility] Erythrocyte distribution width (RBC) [Ratio] 40.5 fl 35.1-43.9 [facility] Estimation of creatinine alyson aranceOrdered By: Francesco Lui on 12-16-2024 Estimated Creatinine Clearance Calc 105.07 ml/min 50-250 [facility] GFR/1.73 sq M.predicted latrell g non-blacks MDRD (S/P/Bld) [Vol rate/Area]Ordered By: Francesco Lui on 12-16-2024 Estimated GFR (MDRD) Non-Af Amer 90 >60 [facility] Comment on above: mL/min/1.73m2 CKD-EP I Creatinine Equation (2020) Gamma glutamyl transferase ( GGT) measurementOrdered By: Francesco Lui on 12-16-2024 Amylase [Catalytic activity/Vol] 174 U/L High 0-65 [facility] Comment on above: Performed at: [place] [id number] Director: Raj Dick PhD, Phone: [phone] Glomerular filtration rate ( GFR) estimation/1.73 sq m using serum, plasma, or whole bOrdered By: Francesco Lui on 12-16-2024 GFR/1.73 sq M.predicted among non-blacks MDRD (S/P/Bld) [Vol rate/Area] 90 mL/min/{1.73_m2} >60 [facility] Comment on above: mL/min/1.73m2 CKD-EP I Creatinine Equation (2020) Hematocrit Auto (Bld) [Volum e fraction]Ordered By: Francesco Lui on 12-16-2024 Hematocrit (Bld) [Volume fraction] 39.8 % Low 40-54 [facility] Hemoglobin measurementOrdere d By: Francesco Lui on 12-16-2024 Hemoglobin (Bld) [Mass/Vol] 13.5 g/dL 13.0-16.5 [facility] Immature granulocytes/100 WB C Auto (Bld)Ordered By: Francesco Lui on 12-16-2024 Immature granulocytes/100 WBC (Bld) 1.600 % High 0.0-0.9 [facility] Comment on above: IG% - Immature Granu locytes (promyelocytes, myelocytes and metamyelocytes) > 1% indicates that a LEFT SHIFT is Present. Laboratory - Chemistry and C hemistry - challengeOrdered By: Francesco Lui on 12-16-2024 AST [Catalytic activity/Vol] 29 U/L <38 [facility] Liver Profileon 12-16-2024 Albumin [Mass/Vol] 3.1 g/dL Low 3.5-5.0 [facility] Comment on above: Performed By: #### L 100.0100, L500.3400, L500.2500 ####[facility] [address] [place], [address] ALK PHOS 136 U/L High 40-129 [facility] Comment on above: Performed By: #### L 100.0100, L500.3400, L500.2500 ####[facility] [address] [place], [address] ALT [Catalytic activity/Vol] 149 U/L High <=46 [facility] Comment on above: Performed By: #### L 100.0100, L500.3400, L500.2500 ####[facility] [address] [place], [address] AST [Catalytic activity/Vol] 29 U/L Normal <=37 [facility] Comment on above: Performed By: #### L 100.0100, L500.3400, L500.2500 ####[facility] [address] [place], [address] Bilirubin [Mass/Vol] 2.75 mg/dL High 0.00-1.30 [facility] Comment on above: Performed By: #### L 100.0100, L500.3400, L500.2500 ####[facility] [address] [place], [address] Bilirubin.direct [Mass/Vol] 1.88 mg/dL High 0.00-0.30 [facility] Comment on above: Performed By: #### L 100.0100, L500.3400, L500.2500 ####[facility] [address] [place], [address] Globulin (S) [Mass/Vol] 3.1 g/dL Normal 2.2-4.2 [facility] Comment on above: Performed By: #### L 100.0100, L500.3400, L500.2500 ####[facility] [address] [place], [address] T PROT 6.2 g/dL Normal 5.9-8.4 [facility] Comment on above: Performed By: #### L 100.0100, L500.3400, L500.2500 ####[facility] [address] [place], [address] Lymphocytes Auto (Unsp spec) [#/Vol]Ordered By: Francesco Lui on 12-16-2024 Lymphocytes (Bld) [#/Vol] 1.28 10*3/uL 0.83-4.51 [facility] Lymphocytes/100 WBC Auto (Un sp spec)Ordered By: Francesco Lui on 12-16-2024 Lymphocytes/100 WBC (Bld) 20.8 % 19-41 [facility] MCV (mean corpuscular volume ) determinationOrdered By: Francesco Lui on 12-16-2024 MCV (RBC) [Entitic vol] 86.0 fL 80-94 [facility] Mean corpuscular hemoglobin (MCH) determinationOrdered By: Francesco Lui on 12-16-2024 MCH (RBC) [Entitic mass] 29.2 pg 27.0-32.0 [facility] Mean corpuscular hemoglobin concentration (MCHC) determinationOrdered By: Francesco Lui on 12-16-2024 MCHC (RBC) [Mass/Vol] 33.9 g/dL 32-36 [facility] Mean platelet volume determi nationOrdered By: Francesco Lui on 12-16-2024 Platelet mean volume (Bld) [Entitic vol] 9.8 fL 6.2-12.0 [facility] Monocyte percentageOrdered B y: Francesco Lui on 12-16-2024 Monocytes/100 WBC (Bld) 13.5 % High 0-10 [facility] Neutrophil percentageOrdered By: Francesco Lui on 12-16-2024 Neutrophils/100 WBC (Bld) 61.0 % 47-70 [facility] Nucleated red blood cell per centageOrdered By: Francesco Lui on 12-16-2024 Nucleated RBC/100 WBC (Bld) [Ratio] 0 % 0-5 [facility] Platelet countOrdered By: Gracie Lui on 12-16-2024 Platelets (Bld) [#/Vol] 153 10*3/uL 150-450 [facility] Potassium (Unsp spec) [Mass/ Vol]Ordered By: Francesco Lui on 12-16-2024 Potassium [Moles/Vol] 4.0 mmol/L 3.3-5.1 [facility] Potassium measurement (mass/ volume)Ordered By: Francesco Lui on 12-16-2024 Potassium (Unsp spec) [Mass/Vol] 4.0 mmol/L 3.3-5.1 [facility] RBC Auto (Bld) [#/Vol]Ordere d By: Francesco Lui on 12-16-2024 RBC (Bld) [#/Vol] 4.63 10*6/uL 4.6-6.2 [facility] Serum creatinine measurement (mass/volume)Ordered By: Francesco Lui on 12-16-2024 Creatinine [Mass/Vol] 1.06 mg/dL 0.70-1.20 [facility] Serum globulin measurementOr dered By: Francesco Lui on 12-16-2024 Globulin (S) [Mass/Vol] 3.1 g/dL 2.2-4.2 [facility] Serum glucose measurement (m ass/volume)Ordered By: Francesco Lui on 12-16-2024 Glucose [Mass/Vol] 85 mg/dL 70-99 [facility] Serum or plasma alanine mays otransferase (ALT) measurementOrdered By: Francesco Lui on 12-16-2024 ALT [Catalytic activity/Vol] 149 U/L High <47 [facility] Serum or plasma albumin marquise urement (mass/volume)Ordered By: Francesco Lui on 12-16-2024 Albumin [Mass/Vol] 3.1 g/dL Low 3.5-5.0 [facility] Serum or plasma alkaline daniel sphatase measurementOrdered By: Francesco Lui on 12-16-2024 ALP [Catalytic activity/Vol] 136 U/L High 40-129 [facility] Serum or plasma calcium marquise urement (mass/volume)Ordered By: Francesco Lui on 12-16-2024 Calcium [Mass/Vol] 9.0 mg/dL 7.6-11.0 [facility] Serum or plasma urea nitroge n measurement (mass/volume)Ordered By: Francesco Lui on 12-16-2024 Urea nitrogen [Mass/Vol] 14 mg/dL 4-19 [facility] Sodium levelOrdered By: Frederick Lui on 12-16-2024 Sodium [Moles/Vol] 139 mmol/L 133-145 [facility] Total proteinOrdered By: Mendoza Lui on 12-16-2024 Protein [Mass/Vol] 6.2 g/dL 5.9-8.4 [facility] White blood cell (WBC) count Ordered By: Francesco Lui on 12-16-2024 WBC (Bld) [#/Vol] 6.1 10*3/uL 4.4-11.0 [facility] 12 Lead EKGon 12-15-2024 12 Lead EKG Normal [facility] CBC-Complete Blood Cnt No Di ffon 12-15-2024 Erythrocyte distribution width (RBC) [Ratio] 12.9 % Normal 11.6-14.6 [facility] Comment on above: Performed By: #### L 100.0500 ####[facility] [address] [facility] [place], [address] Hematocrit (Bld) [Volume fraction] 42.2 % Normal 40-54 [facility] Comment on above: Performed By: #### L 100.0500 ####[facility] [address] [facility] [place], [address] Hemoglobin (Bld) [Mass/Vol] 14.5 g/dL Normal 13.0-16.5 [facility] Comment on above: Performed By: #### L 100.0500 ####[facility] [address] [facility] [place], [address] MCH (RBC) [Entitic mass] 28.8 pg Normal 27.0-32.0 [facility] Comment on above: Performed By: #### L 100.0500 ####[facility] [address] [place], [address] MCHC (RBC) [Mass/Vol] 34.4 g/dL Normal 32-36 [facility] Comment on above: Performed By: #### L 100.0500 ####[facility] [address] [place], [address] MCV (RBC) [Entitic vol] 83.9 fL Normal 80-94 [facility] Comment on above: Performed By: #### L 100.0500 ####[facility] [address] [place], [address] Platelet mean volume (Bld) [Entitic vol] 9.8 fL Normal 6.2-12.0 [facility] Comment on above: Performed By: #### L 100.0500 ####[facility] [address] [place], [address] Platelets (Bld) [#/Vol] 163 10*3/uL Normal 150-450 [facility] Comment on above: Performed By: #### L 100.0500 ####[facility] [address] [place], [address] RBC (Bld) [#/Vol] 5.03 10*6/uL Normal 4.6-6.2 [facility] Comment on above: Performed By: #### L 100.0500 ####[facility] [address] [place], [address] RDW SD 39.7 fl Normal 35.1-43.9 [facility] Comment on above: Performed By: #### L 100.0500 ####[facility] [address] [place], [address] WBC (Bld) [#/Vol] 10.2 10*3/uL Normal 4.4-11.0 [facility] Comment on above: Performed By: #### L 100.0500 ####[facility] [address] [place], [address] Comprehensive Metabolic Prof ilon 12-15-2024 Albumin [Mass/Vol] 3.4 g/dL Low 3.5-5.0 [facility] Comment on above: Performed By: #### L 500.4050 ####[facility] [address] [place], [address] Albumin/Globulin [Mass ratio] 1.1 {ratio} Normal 0.9-2.4 [facility] Comment on above: Performed By: #### L 500.4050 ####[facility] [address] [place], [address] ALK PHOS 156 U/L High 40-129 [facility] Comment on above: Performed By: #### L 500.4050 ####[facility] [address] [place], [address] ALT [Catalytic activity/Vol] 227 U/L High <=46 [facility] Comment on above: Performed By: #### L 500.4050 ####[facility] [address] [place], [address] AST [Catalytic activity/Vol] 56 U/L High <=37 [facility] Comment on above: Performed By: #### L 500.4050 ####[facility] [address] [place], [address] Bilirubin [Mass/Vol] 5.85 mg/dL High 0.00-1.30 [facility] Comment on above: Performed By: #### L 500.4050 ####[facility] [address] [place], [address] BUN/CRE 10.4 RATIO Normal 10-20 [facility] Comment on above: Performed By: #### L 500.4050 ####[facility] [address] [place], [address] Calcium [Mass/Vol] 9.1 mg/dL Normal 7.6-11.0 [facility] Comment on above: Performed By: #### L 500.4050 ####[facility] [address] [place], [address] Chloride [Moles/Vol] 103 mmol/L Normal 98-108 [facility] Comment on above: Performed By: #### L [id number] ####[facility] [address] [place], [address] CO2 [Moles/Vol] 21.3 mmol/L Normal 21.0-32.0 [facility] Comment on above: Performed By: #### [id number] ####[facility] [address] [place], [address] Creatinine [Mass/Vol] 0.99 mg/dL Normal 0.70-1.20 [facility] Comment on above: Result Comment: Icte stephany present, Results may be affected. Performed By: #### L [id number] ####[facility] [address] [place], [address] ECRCL 112.50 ml/min Normal 50-250 [facility] Comment on above: Performed By: #### L 500.4050 ####[facility] [address] [place], [address] GAP 13 Normal 5-15 [facility] Comment on above: Performed By: #### L 500.4050 ####[facility] [address] [place], [address] GFR/1.73 sq M.predicted among non-blacks MDRD (S/P/Bld) [Vol rate/Area] 98 mL/min/{1.73_m2} Normal >60 [facility] Comment on above: Result Comment: mL/m in/1.73m2 CKD-EPI Creatinine Equation (2020) Performed By: #### L 500.4050 ####[facility] [address] [place], [address] Globulin (S) [Mass/Vol] 3.1 g/dL Normal 2.2-4.2 [facility] Comment on above: Performed By: #### L 500.4050 ####[facility] [address] [place], [address] Glucose [Mass/Vol] 106 mg/dL High 70-99 [facility] Comment on above: Performed By: #### L 500.4050 ####[facility] [address] [place], [address] Potassium [Moles/Vol] 3.9 mmol/L Normal 3.3-5.1 [facility] Comment on above: Result Comment: Hemo lysis present, Results??could be affected.?? Performed By: #### L 500.4050 ####[facility] [address] [place], [address] Sodium [Moles/Vol] 137 mmol/L Normal 133-145 [facility] Comment on above: Performed By: #### L 500.4050 ####[facility] [address] [place], [address] T PROT 6.5 g/dL Normal 5.9-8.4 [facility] Comment on above: Performed By: #### L 500.4050 ####[facility] [address] [place], [address] Urea nitrogen [Mass/Vol] 10 mg/dL Normal 4-19 [facility] Comment on above: Performed By: #### L 500.4050 ####[facility] [address] [place], [address] ERCP Biliary/Pancreason - ERCP Biliary/Pancreas Normal [facility] ERCP Reporton 12-15-2024 ERCP Report Normal [facility] Electrocardiogram reportOrde red By: [place] Lubin on 12-15-2024 EKG study [facility] Cardiovascular Services [address] [place] [address] 12 Lead EKG 12/15/24 0448 MR#: [id number] Acct: [id number] Name: DIANE CONNORS Rep #:[id number] : 1985 39 From: [place] Lubin MD Attending Dr: Dr. Francesco Lui MD Status: ADM IN Ordering Dr: Gray López MD Date: Location: [facility] Sex: M C Admitted: 12/14/24 Test Reason [...] When compared with ECG of 11-Dec-2024 12:55, [place] interval has decreased Vent. rate has increased by 38 bpm QT has lengthened Confirmed by JOSE LUBIN MD ([id number]), editorial specialist CHAVA CASEY ([id number]) on 12/15/2024 8:22:34 AM Referred By: PRIMITIVO Confirmed By: JOSE LUBIN MD 12/15/24 0822 Date _ [place] Lubin MD CC: AGUILAR Arias; Dr. Gray López MD; Dr. Francesco Lui MD ~ Signed [facility] Work Phone: MR/POSTOP.ANEon 12-15-2024 MR/POSTOP.ANE Normal [facility] MR/HSPLPHDV6gh 12-15-2024 MR/POSTOPAN2 [facility] Serum or plasma albumin/glob ulin mass ratioOrdered By: Cruz Arciniega on 12-15-2024 Albumin/Globulin [Mass ratio] 1.1 {ratio} 0.9-2.4 [facility] Abdomen/Pelvis W IV Cont ONL Yon 12-14-2024 Abdomen/Pelvis W IV Cont ONLY Normal [facility] Absolute neutrophil countOrd ered By: Petar Barrera on 12-14-2024 Neutrophils (Bld) [#/Vol] 12.7 10*3/uL High 2.0-7.7 [facility] Anion gap in Serum or Plasma Ordered By: Petar Barrera on 12-14-2024 Anion gap [Moles/Vol] 10 mmol/L - [facility] BUN/creatinine ratioOrdered By: Petar Barrera on 12-14-2024 Urea nitrogen/Creatinine [Mass ratio] 11.9 mg/mg - [facility] Basic Metabolic Profile (BMP )on 12-14-2024 BUN/CRE 11.9 RATIO Normal - [facility] Comment on above: Performed By: #### L 503.6005, L501.2450, L500.2500, L500.3400 ####[facility] [address] [place], [address] ECRCL 110.26 ml/min Normal 50-250 [facility] Comment on above: Performed By: #### L 503.6005, L501.2450, L500.2500, L500.3400 ####[facility] [address] [place], [address] GAP 10 Normal - [facility] Comment on above: Performed By: #### L 503.6005, L501.2450, L500.2500, L500.3400 ####[facility] [address] [place], [address] GFR/1.73 sq M.predicted among non-blacks MDRD (S/P/Bld) [Vol rate/Area] 96 mL/min/{1.73_m2} Normal >60 [facility] Comment on above: Result Comment: mL/m in/1.73m2 CKD-EPI Creatinine Equation (2020) Performed By: #### L 503.6005, L501.2450, L500.2500, L500.3400 ####[facility] [address] [place], [address] Basophil percentageOrdered B y: Petar Barrera on 12-14-2024 Basophils/100 WBC (Bld) 0.6 % 0-1 [facility] Bilirubin Test strip Ql (U)O rdered By: Petar Barrera on 12-14-2024 Bilirubin Ql (U) 3 mg/dL High Negative [facility] Comment on above: COLOR OF URINE MAY A FFECT DIPSTICK RESULTS. Bilirubin directOrdered By: Petar Barrera on 12-14-2024 Bilirubin.direct [Mass/Vol] 3.43 mg/dL High 0.00-0.30 [facility] Comment on above: Performed By: #### L 503.6005, L501.2450, L500.2500, L500.3400 ####[facility] [address] [place], [address] Bilirubin, totalOrdered By: Petar Barrera on 12-14-2024 Bilirubin [Mass/Vol] 4.43 mg/dL High 0.00-1.30 [facility] Comment on above: Performed By: #### L 503.6005, L501.2450, L500.2500, L500.3400 ####[facility] [address] 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 CBC W/Diff, Automatedon 11-28 SMEAR COMMENT COMMENT Normal [facility] Comment on above: Result Comment: LYMP HOPENIA. Performed By: #### L 100.0100 ####[facility] [address] [place], [place], [address] Carbon dioxide, total [Moles /volume] in Central venous bloodOrdered By: Petar Barrera on 12-14-2024 CO2 [Moles/Vol] 25.7 mmol/L Normal 21.0-32.0 [facility] Comment on above: Performed By: #### L 503.6005, L501.2450, L500.2500, L500.3400 ####[facility] [address] [place], [place], [address] Chest PA and Lateralon 12-14 Chest PA and Lateral Normal [facility] Chloride assayOrdered By: yovana Barrera on 12-14-2024 Chloride [Moles/Vol] 103 mmol/L Normal 98-108 [facility] Comment on above: Performed By: #### L 503.6005, L501.2450, L500.2500, L500.3400 ####[facility] [address] [place], [place], [address] Emergency Department Summary on 12-14-2024 Emergency Department Summary Normal [facility] Eosinophil percentageOrdered By: Petar Barrera on 12-14-2024 Eosinophils/100 WBC (Bld) 0.1 % 0-5 [facility] Epithelial cells.squamous LM Ql (Urine sed)Ordered By: Petar Barrera on 12-14-2024 Epithelial cells.squamous LM.HPF (Urine sed) [#/Area] 0 /[HPF] 0-5 [facility] Erythrocyte distribution wid th ratioOrdered By: Petar Barrera on 12-14-2024 Erythrocyte distribution width (RBC) [Ratio] 12.8 % 11.6-14.6 [facility] Erythrocyte distribution wid th standard deviationOrdered By: Petar Barrera on 12-14-2024 Erythrocyte distribution width (RBC) [Entitic vol] 40.8 fL 35.1-43.9 [facility] Estimation of creatinine alyson aranceOrdered By: Petar Barrera on 12-14-2024 Estimated Creatinine Clearance Calc 110.26 ml/min 50-250 [facility] GFR/1.73 sq M.predicted latrell g non-blacks MDRD (S/P/Bld) [Vol rate/Area]Ordered By: Petar Barrera on 12-14-2024 Estimated GFR (MDRD) Non-Af Amer 96 >60 [facility] Comment on above: mL/min/1.73m2 CKD-EP I Creatinine Equation (2020) Glucose Ql (U)Ordered By: Ann Barrera on 12-14-2024 Urine Glucose (UA) Normal mg/dl Normal [facility] H AND P Exam - Hospitaliston 12-14-2024 H&P Exam - Hospitalist Normal [facility] Hematocrit Auto (Bld) [Volum e fraction]Ordered By: Petar Barrera on 12-14-2024 Hematocrit (Bld) [Volume fraction] 46.1 % 40-54 [facility] Hemoglobin measurementOrdere d By: Petar Barrera on 12-14-2024 Hemoglobin (Bld) [Mass/Vol] 15.5 g/dL 13.0-16.5 [facility] Immature granulocytes/100 WB C Auto (Bld)Ordered By: Petar Barrera on 12-14-2024 Immature granulocytes/100 WBC (Bld) 0.900 % 0.0-0.9 [facility] Comment on above: IG% - Immature Granu locytes (promyelocytes, myelocytes and metamyelocytes) > 1% indicates that a LEFT SHIFT is Present. Influenza virus A and B and SARS-CoV-2 (COVID-19) and Respiratory syncytial virus RNAOrdered By: Petar Barrera on 12-14-2024 SARS-CoV-2 (COVID-19) RNA ROSSANA+probe Ql (Unsp spec) [facility] Ketones Test strip Ql (U)Ord ered By: Petar Barrera on 12-14-2024 Ketones Ql (U) Negative Negative [facility] Lactic acid measurementOrder ed By: Petar Barrera on 12-14-2024 Lactate [Moles/Vol] 1.1 mmol/L Normal 0.0-2.0 [facility] Comment on above: Order Comment: Y Performed By: #### L 503.6005, L501.2450, L500.2500, L500.3400 ####[facility] [address] [place], [address] Lipase measurementOrdered By : Petar Barrera on 12-14-2024 Lipase [Catalytic activity/Vol] 26 U/L Normal 13-75 [facility] Comment on above: Please note:LIPASE r evised reference range effective 23. New Lipase methodology. Expected to produce lower values than the previous assay method. NEW Reference Range: 13 - 75 U/L Result Comment: Sully delaney note:LIPASE revised reference range effective 23.New Lipase methodology. Expected to produce lower valuesthan the previous assay method.NEW Reference Range: 13 - 75 U/L Performed By: #### L 503.6005, L501.2450, L500.2500, L500.3400 ####[facility] [address] [place], [address] Liver Profileon 12-14-2024 ALK PHOS 149 U/L High 40-129 [facility] Comment on above: Performed By: #### L 503.6005, L501.2450, L500.2500, L500.3400 ####[facility] [address] [place], [address] T PROT 6.6 g/dL Normal 5.9-8.4 [facility] Comment on above: Performed By: #### L 503.6005, L501.2450, L500.2500, L500.3400 ####[facility] [address] [place], [address] Liver ProfileOrdered By: Sydney Barrera on 12-14-2024 AST [Catalytic activity/Vol] 124 U/L High <=37 [facility] Comment on above: Performed By: #### L 503.6005, L501.2450, L500.2500, L500.3400 ####[facility] [address] [place], [address] Lymphocytes Auto (Unsp spec) [#/Vol]Ordered By: Petar Barrera on 12-14-2024 Lymphocytes (Bld) [#/Vol] 0.45 10*3/uL Low 0.83-4.51 [facility] Lymphocytes/100 WBC Auto (Un sp spec)Ordered By: Petar Barrera on 12-14-2024 Lymphocytes/100 WBC (Bld) 3.2 % Low 19-41 [facility] M100.678on 12-14-2024 M100.678 Pending SARS-CoV-2 (COVID 19) Negative INFLUENZA A Negative INFLUENZA B Negative RSV PCR Negative Normal [facility] Comment on above: Performed By: #### M 100.678 ####[facility] [address] [place], [place], [address] MCV (mean corpuscular volume ) determinationOrdered By: Petar Barrera on 12-14-2024 MCV (RBC) [Entitic vol] 87.1 fL 80-94 [facility] Manual differential comment Emanuel (Bld) [Interp]Ordered By: Petar Barrera on 12-14-2024 Differential Comment COMMENT [facility] Comment on above: LYMPHOPENIA. Mean corpuscular hemoglobin (MCH) determinationOrdered By: Petar Barrera on 12-14-2024 MCH (RBC) [Entitic mass] 29.3 pg 27.0-32.0 [facility] Mean corpuscular hemoglobin concentration (MCHC) determinationOrdered By: Petar Barrera on 12-14-2024 MCHC (RBC) [Mass/Vol] 33.6 g/dL 32-36 [facility] Mean platelet volume determi nationOrdered By: Petar Barrera on 12-14-2024 Platelet mean volume (Bld) [Entitic vol] 9.4 fL 6.2-12.0 [facility] Microscopic analysis of urin e for red blood cells (RBC)Ordered By: Petar Barrera on 12-14-2024 Microscopic analysis of urine for red blood cells (RBC) 0-5 SEEN /hpf 0-5 [facility] Urine RBC 0-5 SEEN /hpf 0-5 [facility] Monocyte percentageOrdered B y: Petar Barrera on 12-14-2024 Monocytes/100 WBC (Bld) 4.7 % 0-10 [facility] Mucus LM Ql (Urine sed)Order ed By: Petar Barrera on 12-14-2024 Mucus Ql (Urine sed) 1+ /hpf [facility] Neutrophil percentageOrdered By: Petar Barrera on 12-14-2024 Neutrophils/100 WBC (Bld) 90.5 % High 47-70 [facility] Nitrite Test strip Ql (U)Ord ered By: Petar Barrera on 12-14-2024 Nitrite Ql (U) Negative Negative [facility] Nucleated red blood cell per centageOrdered By: Petar Barrera on 12-14-2024 Nucleated RBC/100 WBC (Bld) [Ratio] 0 % 0-5 [facility] Platelet countOrdered By: Ann Barrera on 12-14-2024 Platelets (Bld) [#/Vol] 156 10*3/uL 150-450 [facility] Potassium measurement (mass/ volume)Ordered By: Petar Barrera on 12-14-2024 Potassium [Moles/Vol] 3.7 mmol/L Normal 3.3-5.1 [facility] Comment on above: Performed By: #### L 503.600, L501.2450, L500.2500, L500.3400 ####[facility] [address] [facility] [place], [place], [address] Protein Test strip Ql (U)Ord ered By: Petar Barrera on 12-14-2024 Protein Ql (U) 30 mg/dl High Negative [facility] RBC Auto (Bld) [#/Vol]Ordere d By: Petar Barrera on 12-14-2024 RBC (Bld) [#/Vol] 5.29 10*6/uL 4.6-6.2 [facility] Serum creatinine measurement (mass/volume)Ordered By: Petar Barrera on 12-14-2024 Creatinine [Mass/Vol] 1.01 mg/dL Normal 0.70-1.20 [facility] Comment on above: Performed By: #### L 503.6005, L501.2450, L500.2500, L500.3400 ####[facility] [address] [place], [address] Serum globulin measurementOr dered By: Petar Barrera on 12-14-2024 Globulin (S) [Mass/Vol] 2.9 g/dL Normal 2.2-4.2 [facility] Comment on above: Performed By: #### L 503.6005, L501.2450, L500.2500, L500.3400 ####[facility] [address] [place], [address] Serum glucose measurement (m ass/volume)Ordered By: Petar Barrera on 12-14-2024 Glucose [Mass/Vol] 123 mg/dL High 70-99 [facility] Comment on above: Performed By: #### L 503.6005, L501.2450, L500.2500, L500.3400 ####[facility] [address] [place], [address] Serum or plasma alanine mays otransferase (ALT) measurementOrdered By: Petar Barrera on 12-14-2024 ALT [Catalytic activity/Vol] 354 U/L High <=46 [facility] Comment on above: Performed By: #### L 503.6005, L501.2450, L500.2500, L500.3400 ####[facility] [address] [place], [address] Serum or plasma albumin marquise urement (mass/volume)Ordered By: Petar Barrera on 12-14-2024 Albumin [Mass/Vol] 3.7 g/dL Normal 3.5-5.0 [facility] Comment on above: Performed By: #### L 503.6005, L501.2450, L500.2500, L500.3400 ####[facility] [address] [place], [address] Serum or plasma alkaline daniel sphatase measurementOrdered By: Petar Barrera on 12-14-2024 ALP [Catalytic activity/Vol] 149 U/L High 40-129 [facility] Serum or plasma calcium marquise urement (mass/volume)Ordered By: Petar Barrera on 12-14-2024 Calcium [Mass/Vol] 9.5 mg/dL Normal 7.6-11.0 [facility] Comment on above: Performed By: #### L 503.6005, L501.2450, L500.2500, L500.3400 ####[facility] [address] [place], [address] Serum or plasma urea nitroge n measurement (mass/volume)Ordered By: Petar Barrera on 12-14-2024 Urea nitrogen [Mass/Vol] 12 mg/dL Normal 4-19 [facility] Comment on above: Performed By: #### L 503.6005, L501.2450, L500.2500, L500.3400 ####[facility] [address] [place], [address] Sodium levelOrdered By: Sara Barrera on 12-14-2024 Sodium [Moles/Vol] 138 mmol/L Normal 133-145 [facility] Comment on above: Performed By: #### L 503.6005, L501.2450, L500.2500, L500.3400 ####[facility] [address] [place], [address] Squamous epithelial cells de tection in urine sediment by light microscopyOrdered By: Petar Barrera on 12-14-2024 Epithelial cells.squamous LM Ql (Urine sed) 0 SEEN /hpf 0-5 [facility] Total proteinOrdered By: Sydney Barrera on 12-14-2024 Protein [Mass/Vol] 6.6 g/dL 5.9-8.4 [facility] Urinalysis, Completeon 12-14 Mucus Ql (Urine sed) 1+ /hpf Normal [facility] Comment on above: Order Comment: CLEAN CATCH Performed By: #### L 400.0001 ####[facility] [address] [place], [address] BACTERIA 2+ /hpf Normal None Seen [facility] Comment on above: Order Comment: CLEAN CATCH Performed By: #### L 400.0001 ####[facility] [address] [place], [address] RBC 0-5 SEEN Normal 0-5 [facility] Comment on above: Order Comment: CLEAN CATCH Performed By: #### L 400.0001 ####[facility] [address] [place], [address] WBC 0-5 SEEN Normal 0-5 [facility] Comment on above: Order Comment: CLEAN CATCH Performed By: #### L 400.0001 ####[facility] [address] [place], [address] EPI,SQUAMOUS 0 SEEN Normal 0-5 [facility] Comment on above: Order Comment: CLEAN CATCH Performed By: #### L 400.0001 ####[facility] [address] [place], [address] Urine blood detectionOrdered By: Petar Barrera on 12-14-2024 Urine Occult Blood 10 /ul High Negative [facility] Urine clarityOrdered By: Sydney Barrera on 12-14-2024 Clarity (U) Clear Clear [facility] Urine color determinationOrd ered By: Petar Barrera on 12-14-2024 Color (U) Yellow Yellow [facility] Urine glucose detectionOrder ed By: Petar Barrera on 12-14-2024 Glucose Ql (U) Normal mg/dl Normal [facility] Urine leukocyte esterase det ection by dipstickOrdered By: Petar Barrera on 12-14-2024 Leukocyte esterase Test strip Ql (U) 25 /ul High Negative [facility] Urine pHOrdered By: Petar fuchs on 12-14-2024 pH (U) 7.0 [pH] 5.0 - 8.0 [facility] Urine sediment bacteria coun t by microscopy (number/high power field)Ordered By: Petar Barrera on 12-14-2024 Bacteria LM.HPF (Urine sed) [#/Area] 2 /[HPF] None Seen [facility] Urine specific gravity measu rementOrdered By: Petar Barrera on 12-14-2024 Specific gravity (U) [Rel density] 1.005 1.002-1.030 [facility] Urine urobilinogen measureme ntOrdered By: Petar Barrera on 12-14-2024 Urobilinogen Ql (U) 1 mg/dl High Normal [facility] Urobilinogen Ql (U)Ordered B y: Petar Barrera on 12-14-2024 Urobilinogen (U) [Mass/Vol] 1 mg/dL High Normal [facility] White blood cell (WBC) count Ordered By: Petar Barrera on 12-14-2024 WBC (Bld) [#/Vol] 14.0 10*3/uL High 4.4-11.0 [facility] White blood cell countOrdere d By: Petar Barrera on 12-14-2024 Urine WBC 0-5 SEEN /hpf 0-5 [facility] White blood cell count 0-5 SEEN /hpf 0-5 [facility] 12 Lead EKGon 12-11-2024 12 Lead EKG Normal [facility] ERCP Biliary/Pancreason 11-28 ERCP Biliary/Pancreas Normal [facility] ERCP Reporton 12-11-2024 ERCP Report Normal [facility] MR/POSTOP.ANEon 12-11-2024 MR/POSTOP.ANE Normal [facility] MR/ZRVORSTT7aq 12-11-2024 MR/POSTOPAN2 Normal [facility] Special Stain Group IIon Special Stain Group II Normal [facility] Comment on above: Performed By: #### P SSII ####[facility] [address] [place], [place], [address] Carbohydrate AG 19-9on 09-15 CA 19-9 63 U/mL High 0-35 [facility] Comment on above: Order Comment: Test( s) 867859-Awxaqy, Serum or Plasmawas developed and its performance characteristicsdetermined by [employer]. It has not been cleared or approvedby the Food and Drug Administration.N Result Comment: [employer] Electrochemiluminescence Immunoassay(ECLIA)Values obtained with different assay methods or kits cannotbe used interchangeably. Results cannot be interpreted asabsolute evidence of the presence or absence of malignantdisease. Performed By: #### L 3100.3425, L3100.5450, L500.4100, L500.4050, L3890.6005, L3300.0100, L503.6030, L3000.0375, L503.6550, L501.5101, L3400.0700, L501.4700, L3100.5020, L300.3900, L3890.6200, L501.6710, L506.1000, L501.9520 ####[facility] [address] [place], [place], [address] Ceruloplasminon 09-15-2024 CERULOPLASMIN 46.2 mg/dL High 16.0-31.0 [facility] Comment on above: Order Comment: Test( s) 504641-Ytjqnp, Serum or Plasmawas developed and its performance characteristicsdetermined by [employer]. It has not been cleared or approvedby the Food and Drug Administration.N Performed By: #### L 3100.3425, L3100.5450, L500.4100, L500.4050, L3890.6005, L3300.0100, L503.6030, L3000.0375, L503.6550, L501.5101, L3400.0700, L501.4700, L3100.5020, L300.3900, L3890.6200, L501.6710, L506.1000, L501.9520 ####[facility] [address] [place], [place], [address] Copper, Serum or Plasmaon COPPER, SERUM 185 ug/dL High 69-132 [facility] Comment on above: Order Comment: Test( s) 329340-Phyngz, Serum or Plasmawas developed and its performance characteristicsdetermined by [employer]. It has not been cleared or approvedby the Food and Drug Administration.N Result Comment: Dete ction Limit = 5Performed at: [facility] [address] [id number] Director: Raj Dick PhD, Phone: [phone] at: [facility] [address] [id number] Director: Kelly Jansen MD, Phone: [phone] Performed By: #### L 3100.3425, L3100.5450, L500.4100, L500.4050, L3890.6005, L3300.0100, L503.6030, L3000.0375, L503.6550, L501.5101, L3400.0700, L501.4700, L3100.5020, L300.3900, L3890.6200, L501.6710, L506.1000, L501.9520 ####[facility] [address] [place], [place], [address] Hepatitis Panel Acuteon 08-30 COMMENT Comment Normal . [facility] Comment on above: Order Comment: Test( s) 782613-Hvovgh, Serum or Plasmawas developed and its performance characteristicsdetermined by [employer]. It has not been cleared or approvedby the Food and Drug Administration.N Result Comment: Not infected with HCV unless early or acute infection issuspected (which may be delayed in an immunocompromisedindividual), or other evidence exists to indicate HCVinfection. Performed By: #### L 3100.3425, L3100.5450, L500.4100, L500.4050, L3890.6005, L3300.0100, L503.6030, L3000.0375, L503.6550, L501.5101, L3400.0700, L501.4700, L3100.5020, L300.3900, L3890.6200, L501.6710, L506.1000, L501.9520 ####[facility] [address] [place], [place], [address] HEP B CORE,IgM Negative Normal Negative [facility] Comment on above: Order Comment: Test( s) 685092-Allegv, Serum or Plasmawas developed and its performance characteristicsdetermined by [employer]. It has not been cleared or approvedby the Food and Drug Administration.N Performed By: #### L 3100.3425, L3100.5450, L500.4100, L500.4050, L3890.6005, L3300.0100, L503.6030, L3000.0375, L503.6550, L501.5101, L3400.0700, L501.4700, L3100.5020, L300.3900, L3890.6200, L501.6710, L506.1000, L501.9520 ####[facility] [address] [place], [address] HEP B SURF AG Negative Normal Negative [facility] Comment on above: Order Comment: Test( s) 783262-Ngrtjs, Serum or Plasmawas developed and its performance characteristicsdetermined by [employer]. It has not been cleared or approvedby the Food and Drug Administration.N Performed By: #### L 3100.3425, L3100.5450, L500.4100, L500.4050, L3890.6005, L3300.0100, L503.6030, L3000.0375, L503.6550, L501.5101, L3400.0700, L501.4700, L3100.5020, L300.3900, L3890.6200, L501.6710, L506.1000, L501.9520 ####[facility] [address] [place], [address] HEP C VIRUS AB Non-Reactive Normal Non Reactive [facility] Comment on above: Order Comment: Test( s) 917307-Dnwoda, Serum or Plasmawas developed and its performance characteristicsdetermined by [employer]. It has not been cleared or approvedby the Food and Drug Administration.N Performed By: #### L 3100.3425, L3100.5450, L500.4100, L500.4050, L3890.6005, L3300.0100, L503.6030, L3000.0375, L503.6550, L501.5101, L3400.0700, L501.4700, L3100.5020, L300.3900, L3890.6200, L501.6710, L506.1000, L501.9520 ####[facility] [address] [place], [address] HEPATITIS A-IgM Negative Normal Negative [facility] Comment on above: Order Comment: Test( s) 022820-Otwden, Serum or Plasmawas developed and its performance characteristicsdetermined by [employer]. It has not been cleared or approvedby the Food and Drug Administration.N Result Comment: A ne gative anti-HAV IgM result suggests no recent orcurrent HAV infection. Performed By: #### L 3100.3425, L3100.5450, L500.4100, L500.4050, L3890.6005, L3300.0100, L503.6030, L3000.0375, L503.6550, L501.5101, L3400.0700, L501.4700, L3100.5020, L300.3900, L3890.6200, L501.6710, L506.1000, L501.9520 ####[facility] [address] [facility] [place], [address] AYDEN + Protein Elect, Serumon 09-15-2024 Albumin [Mass/Vol] 3.3 g/dL Normal 2.9-4.4 [facility] Comment on above: Order Comment: Test( s) 792300-Fnljrq, Serum or Plasmawas developed and its performance characteristicsdetermined by [employer]. It has not been cleared or approvedby the Food and Drug Administration.N Performed By: #### L 3100.3425, L3100.5450, L500.4100, L500.4050, L3890.6005, L3300.0100, L503.6030, L3000.0375, L503.6550, L501.5101, L3400.0700, L501.4700, L3100.5020, L300.3900, L3890.6200, L501.6710, L506.1000, L501.9520 ####[facility] [address] [facility] [place], [address] Albumin/Globulin [Mass ratio] 1.1 {ratio} Normal 0.7-1.7 [facility] Comment on above: Order Comment: Test( s) 656496-Slxqev, Serum or Plasmawas developed and its performance characteristicsdetermined by [employer]. It has not been cleared or approvedby the Food and Drug Administration.N Performed By: #### L 3100.3425, L3100.5450, L500.4100, L500.4050, L3890.6005, L3300.0100, L503.6030, L3000.0375, L503.6550, L501.5101, L3400.0700, L501.4700, L3100.5020, L300.3900, L3890.6200, L501.6710, L506.1000, L501.9520 ####[facility] [address] [place], [address] CUKYI-6-VOAY 0.3 g/dL Normal 0.0-0.4 [facility] Comment on above: Order Comment: Test( s) 679834-Fxwcwb, Serum or Plasmawas developed and its performance characteristicsdetermined by [employer]. It has not been cleared or approvedby the Food and Drug Administration.N Performed By: #### L 3100.3425, L3100.5450, L500.4100, L500.4050, L3890.6005, L3300.0100, L503.6030, L3000.0375, L503.6550, L501.5101, L3400.0700, L501.4700, L3100.5020, L300.3900, L3890.6200, L501.6710, L506.1000, L501.9520 ####[facility] [address] [facility]. [place], [place], [id number] FGXUA-7-CSPK 0.7 g/dL Normal 0.4-1.0 [facility] Comment on above: Order Comment: Test( s) 435893-Pjmhnl, Serum or Plasmawas developed and its performance characteristicsdetermined by [employer]. It has not been cleared or approvedby the Food and Drug Administration.N Performed By: #### L 3100.3425, L3100.5450, L500.4100, L500.4050, L3890.6005, L3300.0100, L503.6030, L3000.0375, L503.6550, L501.5101, L3400.0700, L501.4700, L3100.5020, L300.3900, L3890.6200, L501.6710, L506.1000, L501.9520 ####[facility] [address] [facility]. [place], [place], [id number] BETA GLOBULIN 1.4 g/dL High 0.7-1.3 [facility] Comment on above: Order Comment: Test( s) 043355-Epdhbw, Serum or Plasmawas developed and its performance characteristicsdetermined by [employer]. It has not been cleared or approvedby the Food and Drug Administration.N Performed By: #### L 3100.3425, L3100.5450, L500.4100, L500.4050, L3890.6005, L3300.0100, L503.6030, L3000.0375, L503.6550, L501.5101, L3400.0700, L501.4700, L3100.5020, L300.3900, L3890.6200, L501.6710, L506.1000, L501.9520 ####[facility] [address] [place], [place], [id number] GAMMA GLOBULIN 0.8 g/dL Normal 0.4-1.8 [facility] Comment on above: Order Comment: Test( s) 950256-Cpfxvy, Serum or Plasmawas developed and its performance characteristicsdetermined by [employer]. It has not been cleared or approvedby the Food and Drug Administration.N Performed By: #### L 3100.3425, L3100.5450, L500.4100, L500.4050, L3890.6005, L3300.0100, L503.6030, L3000.0375, L503.6550, L501.5101, L3400.0700, L501.4700, L3100.5020, L300.3900, L3890.6200, L501.6710, L506.1000, L501.9520 ####[facility] [address] [place], [place], [phone]) Globulin (S) [Mass/Vol] 3.2 g/dL Normal 2.2-3.9 [facility] Comment on above: Order Comment: Test( s) 501545-Tyqlly, Serum or Plasmawas developed and its performance characteristicsdetermined by [employer]. It has not been cleared or approvedby the Food and Drug Administration.N Performed By: #### L 3100.3425, L3100.5450, L500.4100, L500.4050, L3890.6005, L3300.0100, L503.6030, L3000.0375, L503.6550, L501.5101, L3400.0700, L501.4700, L3100.5020, L300.3900, L3890.6200, L501.6710, L506.1000, L501.9520 ####[facility] [address] [place], [place], [phone] AYDEN RESULT,S Comment Normal . [facility] Comment on above: Order Comment: Test( s) 965676-Jnjadm, Serum or Plasmawas developed and its performance characteristicsdetermined by [employer]. It has not been cleared or approvedby the Food and Drug Administration.N Result Comment: No m onoclonality detected. Performed By: #### L 3100.3425, L3100.5450, L500.4100, L500.4050, L3890.6005, L3300.0100, L503.6030, L3000.0375, L503.6550, L501.5101, L3400.0700, L501.4700, L3100.5020, L300.3900, L3890.6200, L501.6710, L506.1000, L501.9520 ####[facility] [address] [place], [place], [phone](210) IMMUNOGLOB A QN 150 mg/dL Normal 90-386 [facility] Comment on above: Order Comment: Test( s) 659002-Svjdxt, Serum or Plasmawas developed and its performance characteristicsdetermined by [employer]. It has not been cleared or approvedby the Food and Drug Administration.N Performed By: #### L 3100.3425, L3100.5450, L500.4100, L500.4050, L3890.6005, L3300.0100, L503.6030, L3000.0375, L503.6550, L501.5101, L3400.0700, L501.4700, L3100.5020, L300.3900, L3890.6200, L501.6710, L506.1000, L501.9520 ####[facility] [address] [place], [place], [phone](435) IMMUNOGLOB G QN 904 mg/dL Normal 603-1613 [facility] Comment on above: Order Comment: Test( s) 673307-Rchmaf, Serum or Plasmawas developed and its performance characteristicsdetermined by [employer]. It has not been cleared or approvedby the Food and Drug Administration.N Performed By: #### L 3100.3425, L3100.5450, L500.4100, L500.4050, L3890.6005, L3300.0100, L503.6030, L3000.0375, L503.6550, L501.5101, L3400.0700, L501.4700, L3100.5020, L300.3900, L3890.6200, L501.6710, L506.1000, L501.9520 ####[facility] [address] [facility] [address] [place], [place], [phone] IMMUNOGLOB M QN 48 mg/dL Normal 20-172 [facility] Comment on above: Order Comment: Test( s) 528530-Vplqzj, Serum or Plasmawas developed and its performance characteristicsdetermined by [employer]. It has not been cleared or approvedby the Food and Drug Administration.N Performed By: #### L 3100.3425, L3100.5450, L500.4100, L500.4050, L3890.6005, L3300.0100, L503.6030, L3000.0375, L503.6550, L501.5101, L3400.0700, L501.4700, L3100.5020, L300.3900, L3890.6200, L501.6710, L506.1000, L501.9520 ####[facility] [address] [facility] [address] [place], [place], [phone] M-Mychal Not Observed Normal Not Observed [facility] Comment on above: Order Comment: Test( s) 308705-Ytkbzz, Serum or Plasmawas developed and its performance characteristicsdetermined by [employer]. It has not been cleared or approvedby the Food and Drug Administration.N Performed By: #### L 3100.3425, L3100.5450, L500.4100, L500.4050, L3890.6005, L3300.0100, L503.6030, L3000.0375, L503.6550, L501.5101, L3400.0700, L501.4700, L3100.5020, L300.3900, L3890.6200, L501.6710, L506.1000, L501.9520 ####[facility] [address] [place], [place], [id number] NOTE: Comment Normal . [facility] Comment on above: Order Comment: Test( s) 110026-Ttizle, Serum or Plasmawas developed and its performance characteristicsdetermined by [employer]. 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 Performed By: #### L 3100.3425, L3100.5450, L500.4100, L500.4050, L3890.6005, L3300.0100, L503.6030, L3000.0375, L503.6550, L501.5101, L3400.0700, L501.4700, L3100.5020, L300.3900, L3890.6200, L501.6710, L506.1000, L501.9520 ####[facility] [address] [place], [address] Protein [Mass/Vol] 6.5 g/dL Normal 6.0-8.5 [facility] Comment on above: Order Comment: Test( s) 390417-Suowyo, Serum or Plasmawas developed and its performance characteristicsdetermined by [employer]. It has not been cleared or approvedby the Food and Drug Administration.N Performed By: #### L 3100.3425, L3100.5450, L500.4100, L500.4050, L3890.6005, L3300.0100, L503.6030, L3000.0375, L503.6550, L501.5101, L3400.0700, L501.4700, L3100.5020, L300.3900, L3890.6200, L501.6710, L506.1000, L501.9520 ####[facility] [address] [place], [place], [address] L501.5101on 09-15-2024 GGTP 69 IU/L Abnormal 0-65 [facility] Comment on above: Order Comment: Test( s) 291666-Eaclps, Serum or Plasmawas developed and its performance characteristicsdetermined by [employer]. It has not been cleared or approvedby the Food and Drug Administration.N Performed By: #### L 3100.3425, L3100.5450, L500.4100, L500.4050, L3890.6005, L3300.0100, L503.6030, L3000.0375, L503.6550, L501.5101, L3400.0700, L501.4700, L3100.5020, L300.3900, L3890.6200, L501.6710, L506.1000, L501.9520 ####[facility] [address] [facility] [place], [address] AFP, Tumor Markeron 09-14-20 AFP TUMOR ADRIANA 3.2 ng/mL Normal 0.0-6.9 [facility] Comment on above: Order Comment: NN Result [...] interpretable in females. _ TESTING PERFORMED AT [facility]. ORIGINAL REPORT ON FILE IN LAB CONTAINS ADDITIONAL TEST SITE INFORMATION. Performed By: #### L 3200.1100, L3300.0700, L3300.1200, L3200.0500, L504.2610 ####[facility] [address] [place], [place], [id number] QUIQUE w/ Reflex Mult Confirmon 09-14-2024 QUIQUE,DIRECT Negative Normal Negative [facility] Comment on above: Result Comment: Perf ormed at: [address] [id number] Director: Raj Dick PhD, Phone: [phone] Performed By: #### L 3100.3425, L3100.5450, L500.4100, L500.4050, L3890.6005, L3300.0100, L503.6030, L3000.0375, L503.6550, L501.5101, L3400.0700, L501.4700, L3100.5020, L300.3900, L3890.6200, L501.6710, L506.1000, L501.9520 ####[facility] [address] [place], [place], [id number] ANCAon 09-14-2024 Atypical pANCA <1:20 Normal Neg:<1:20 [facility] Comment on above: Order Comment: NN Result Comment: Note : Specimen is icteric.The atypical pANCA pattern has been observed in asignificant percentage of patients with ulcerative colitis,primary sclerosing cholangitis and autoimmune hepatitis. Performed By: #### L 3200.1100, L3300.0700, L3300.1200, L3200.0500, L504.2610 ####[facility] [address] [place], [place], [id number] Perinuclear Ab. <1:20 Normal Neg:<1:20 [facility] Comment on above: Order Comment: NN Result Comment: Note : Specimen is icteric.The presence of positive fluorescence exhibiting P-ANCA orC-ANCA patterns alone is not specific for the diagnosis ofWegener's Granulomatosis (WG) or microscopic polyangiitis.Decisions about treatment should not be based solely onANCA IFA results. The International ANCA Group Consensusrecommends follow up testing of positive sera with both UT-3 and MPO-ANCA enzyme immunoassays. As many as 5% serumsamples are positive only by EIA. Ref. AM J Clin Viutje6495;111:507-513. Performed By: #### L 3200.1100, L3300.0700, L3300.1200, L3200.0500, L504.2610 ####[facility] [address] [place], [place], [phone] HIV - WCHon 09-14-2024 HIV Non-Reactive Normal Nonreactive [facility] Comment on above: Performed By: #### L 3100.3425, L3100.5450, L500.4100, L500.4050, L3890.6005, L3300.0100, L503.6030, L3000.0375, L503.6550, L501.5101, L3400.0700, L501.4700, L3100.5020, L300.3900, L3890.6200, L501.6710, L506.1000, L501.9520 ####[facility] [address] [place], [place], [id number] Hepatitis B Surface Antibody on 09-14-2024 HEP B Surf Ab Non-Reactive Normal [facility] Comment on above: Result Comment: Non Reactive: Inconsistent with immunity less than <10 mIU/mL Reactive: Consistent with immunity greater than or equal to 10 mIU/mL Performed By: #### L 3100.3425, L3100.5450, L500.4100, L500.4050, L3890.6005, L3300.0100, L503.6030, L3000.0375, L503.6550, L501.5101, L3400.0700, L501.4700, L3100.5020, L300.3900, L3890.6200, L501.6710, L506.1000, L501.9520 ####[facility] [address] [place], [address] IgG Subclasseson 09-14-2024 IgG, SUBCLASS 1 386 mg/dL Normal 248-810 [facility] Comment on above: Order Comment: NN Performed By: #### L 3200.1100, L3300.0700, L3300.1200, L3200.0500, L504.2610 ####[facility] [address] [place], [address] IgG, SUBCLASS 2 276 mg/dL Normal 130-555 [facility] Comment on above: Order Comment: NN Performed By: #### L 3200.1100, L3300.0700, L3300.1200, L3200.0500, L504.2610 ####[facility] [address] [place], [address] IgG, SUBCLASS 3 40 mg/dL Normal 15-102 [facility] Comment on above: Order Comment: NN Performed By: #### L 3200.1100, L3300.0700, L3300.1200, L3200.0500, L504.2610 ####[facility] [address] [place], [address] IgG, SUBCLASS 4 89 mg/dL Normal 2-96 [facility] Comment on above: Order Comment: NN Performed By: #### L 3200.1100, L3300.0700, L3300.1200, L3200.0500, L504.2610 ####[facility] [address] [place], [address] Immunoglobulins G/A/M/Brown IMMUNOGLOB A QN 140 mg/dL Normal 90-386 [facility] Comment on above: Order Comment: NN Performed By: #### L 3200.1100, L3300.0700, L3300.1200, L3200.0500, L504.2610 ####[facility] [address] [place], [address] IMMUNOGLOB E QN 40 IU/mL Normal 6-495 [facility] Comment on above: Order Comment: NN Performed By: #### L 3200.1100, L3300.0700, L3300.1200, L3200.0500, L504.2610 ####[facility] [address] [place], [address] IMMUNOGLOB M QN 42 mg/dL Normal 20-172 [facility] Comment on above: Order Comment: NN Performed By: #### L 3200.1100, L3300.0700, L3300.1200, L3200.0500, L504.2610 ####[facility] [address] [place], [place], [address] Vitamin D,25 Hydroxyon 09-14 Vitamin D 25-OH 52.6 ng/mL Normal [facility] Comment on above: Result Comment: Ruth Ann min D 25(OH) Status Range Deficiency <20 ng/mL (50nmol/L) Insufficiency 20 - 30 ng/mL (50 - 75 nmol/L) Sufficiency 30 - 100 ng/mL (75 - 250 nmol/L) Toxicity >100 ng/mL (>250 nmol/L) Performed By: #### L 3100.3425, L3100.5450, L500.4100, L500.4050, L3890.6005, L3300.0100, L503.6030, L3000.0375, L503.6550, L501.5101, L3400.0700, L501.4700, L3100.5020, L300.3900, L3890.6200, L501.6710, L506.1000, L501.9520 ####[facility] [address] [place], [address] 40-LT-Ukygypm DOrdered By: Sarah Lui on 09-11-2024 Vitamin D 25-Hydroxy 52.6 ng/mL [facility] Comment on above: Vitamin D 25(OH) Sta tus Range Deficiency <20 ng/mL (50nmol/L) Insufficiency 20 - 30 ng/mL (50 - 75 nmol/L) Sufficiency 30 - 100 ng/mL (75 - 250 nmol/L) Toxicity >100 ng/mL (>250 nmol/L) QUIQUE serumOrdered By: Francesco Lui on 09-11-2024 Anti-Nuclear Antibody Screen Negative Negative [facility] Comment on above: Performed at: [place] [id number] Director: Raj Dick PhD, Phone: [phone] Addendum DocumentOrdered By: Francesco Lui on 09-11-2024 Serum Immunofixation Comments Comment . 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 Albumin Elph [Mass/Vol]Order ed By: Francesco Lui on 09-11-2024 Albumin [Mass/Vol] 3.3 g/dL 2.9-4.4 [facility] Albumin to globulin ratioOrd ered By: Francesco Lui on 09-11-2024 Albumin/Globulin [Mass ratio] 0.8 {ratio} Low 0.9-2.4 [facility] Alpha 1 globulin Elph [Mass/ Vol]Ordered By: Francesco Lui on 09-11-2024 Xendn-1-Ntwlppguf (AYDEN) 0.3 g/dL 0.0-0.4 [facility] Cbxjm-2-Clazkoggz (AYDEN) 0.7 g/dL 0.4-1.0 [facility] Beta globulin Elph [Mass/Vol ]Ordered By: Francesco Lui on 09-11-2024 Beta-Globulins (AYDEN) 1.4 g/dL High 0.7-1.3 [facility] Bilirubin directOrdered By: Francesco Lui on 09-11-2024 Bilirubin.direct [Mass/Vol] 11.21 mg/dL High 0.00-0.30 [facility] Bilirubin, Directon 09-11-20 24 Bilirubin.direct [Mass/Vol] 11.21 mg/dL High 0.00-0.30 [facility] Comment on above: Performed By: #### L 3100.3425, L3100.5450, L500.4100, L500.4050, L3890.6005, L3300.0100, L503.6030, L3000.0375, L503.6550, L501.5101, L3400.0700, L501.4700, L3100.5020, L300.3900, L3890.6200, L501.6710, L506.1000, L501.9520 ####[facility] [address] [place], [address] Bilirubin, totalOrdered By: Francesco Lui on 09-11-2024 Bilirubin [Mass/Vol] 14.00 mg/dL High 0.20-1.00 [facility] Comment on above: For patients on eltr ombopag therapy, use of Dimension Aladdin TBIL is not recommended. Blood urea nitrogen (BUN)/cr eatinine ratioOrdered By: Francesco Lui on 09-11-2024 Urea nitrogen/Creatinine [Mass ratio] 13.9 mg/mg 10- [facility] C-reactive protein measureme nt by high sensitivity methodOrdered By: Francesco Lui on 09-11-2024 C-Reactive Protein Extended Range < 2.90 mg/L 0.0-3.0 [facility] Comment on above: C-Reactive Protein ( CRP) provides useful information for thediagnosis, therapy and monitoring of inflammatory processesand associated diseases. For the evaluation of Relative Riskfor Cardiovascular Disease, a High Sensitivity CRP (HSCRP)should be ordered. CA 19-9 agOrdered By: Flori Lui on 09-11-2024 CA 19-9 Antigen 63 U/mL High 0-35 [facility] Comment on above: [employer] El ectrochemiluminescence Immunoassay(ECLIA)Values obtained with different assay methods or kits cannotbe used interchangeably. Results cannot be interpreted asabsolute evidence of the presence or absence of malignantdisease. CRPon 09-11-2024 C-REACTIVE PROT < 2.90 Normal 0.0-3.0 [facility] Comment on above: Result Comment: C-Re active Protein (CRP) provides useful information for thediagnosis, therapy and monitoring of inflammatory processesand associated diseases. For the evaluation of Relative Riskfor Cardiovascular Disease, a High Sensitivity CRP (HSCRP)should be ordered. Performed By: #### L 3100.3425, L3100.5450, L500.4100, L500.4050, L3890.6005, L3300.0100, L503.6030, L3000.0375, L503.6550, L501.5101, L3400.0700, L501.4700, L3100.5020, L300.3900, L3890.6200, L501.6710, L506.1000, L501.9520 ####[facility] [address] [place], [address] Carbon dioxide measurementOr dered By: Francesco Lui on 09-11-2024 CO2 [Moles/Vol] 25.0 mmol/L 21.0-32.0 [facility] Centromere B antibody assayO rdered By: Francesco Lui on 09-11-2024 Centromere B Antibody Not Reportable [facility] CeruloplasminOrdered By: Mendoza Lui on 09-11-2024 Ceruloplasmin 46.2 mg/dL High 16.0-31.0 [facility] Chloride measurementOrdered By: Francesco Lui on 09-11-2024 Chloride [Moles/Vol] 105 mmol/L 98-107 [facility] Comprehensive Metabolic Prof ilon 09-11-2024 Albumin [Mass/Vol] 3.2 g/dL Normal 3.2-5.0 [facility] Comment on above: Performed By: #### L 3100.3425, L3100.5450, L500.4100, L500.4050, L3890.6005, L3300.0100, L503.6030, L3000.0375, L503.6550, L501.5101, L3400.0700, L501.4700, L3100.5020, L300.3900, L3890.6200, L501.6710, L506.1000, L501.9520 ####[facility] [address] [place], [place], [id number] Albumin/Globulin [Mass ratio] 0.8 {ratio} Low 0.9-2.4 [facility] Comment on above: Performed By: #### L 3100.3425, L3100.5450, L500.4100, L500.4050, L3890.6005, L3300.0100, L503.6030, L3000.0375, L503.6550, L501.5101, L3400.0700, L501.4700, L3100.5020, L300.3900, L3890.6200, L501.6710, L506.1000, L501.9520 ####[facility] [address] [facility] [address] [place], [place], [id number] ALK P 155 U/L High 45-117 [facility] Comment on above: Performed By: #### L 3100.3425, L3100.5450, L500.4100, L500.4050, L3890.6005, L3300.0100, L503.6030, L3000.0375, L503.6550, L501.5101, L3400.0700, L501.4700, L3100.5020, L300.3900, L3890.6200, L501.6710, L506.1000, L501.9520 ####[facility] [address] [place], [place], [id number] ALT [Catalytic activity/Vol] 70 U/L [facility] 16-61 [facility] Comment on above: Performed By: #### L 3100.3425, L3100.5450, L500.4100, L500.4050, L3890.6005, L3300.0100, L503.6030, L3000.0375, L503.6550, L501.5101, L3400.0700, L501.4700, L3100.5020, L300.3900, L3890.6200, L501.6710, L506.1000, L501.9520 ####[facility] [address] [place], [address] AST [Catalytic activity/Vol] 64 U/L High 15-37 [facility] Comment on above: Performed By: #### L 3100.3425, L3100.5450, L500.4100, L500.4050, L3890.6005, L3300.0100, L503.6030, L3000.0375, L503.6550, L501.5101, L3400.0700, L501.4700, L3100.5020, L300.3900, L3890.6200, L501.6710, L506.1000, L501.9520 ####[facility] [address] [place], [address] Bilirubin [Mass/Vol] 14.00 mg/dL High 0.20-1.00 [facility] Comment on above: Result Comment: For patients on eltrombopag therapy, use of Dimension Aladdin TBIL is not recommended. Performed By: #### L 3100.3425, L3100.5450, L500.4100, L500.4050, L3890.6005, L3300.0100, L503.6030, L3000.0375, L503.6550, L501.5101, L3400.0700, L501.4700, L3100.5020, L300.3900, L3890.6200, L501.6710, L506.1000, L501.9520 ####[facility] [address] [place], [address] BUN/CRE 13.9 RATIO Normal 10-20 [facility] Comment on above: Performed By: #### L 3100.3425, L3100.5450, L500.4100, L500.4050, L3890.6005, L3300.0100, L503.6030, L3000.0375, L503.6550, L501.5101, L3400.0700, L501.4700, L3100.5020, L300.3900, L3890.6200, L501.6710, L506.1000, L501.9520 ####[facility] [address] [place], [address] CA,Total 9.9 mg/dL Normal 8.5-10.1 [facility] Comment on above: Performed By: #### L 3100.3425, L3100.5450, L500.4100, L500.4050, L3890.6005, L3300.0100, L503.6030, L3000.0375, L503.6550, L501.5101, L3400.0700, L501.4700, L3100.5020, L300.3900, L3890.6200, L501.6710, L506.1000, L501.9520 ####[facility] [address] [place], [address] Chloride [Moles/Vol] 105 mmol/L Normal 98-107 [facility] [facility] Comment on above: Performed By: #### L 3100.3425, L3100.5450, L500.4100, L500.4050, L3890.6005, L3300.0100, L503.6030, L3000.0375, L503.6550, L501.5101, L3400.0700, L501.4700, L3100.5020, L300.3900, L3890.6200, L501.6710, L506.1000, L501.9520 ####[facility] [address] [place], [address] CO2 [Moles/Vol] 25.0 mmol/L Normal 21.0-32.0 [facility] Comment on above: Performed By: #### L 3100.3425, L3100.5450, L500.4100, L500.4050, L3890.6005, L3300.0100, L503.6030, L3000.0375, L503.6550, L501.5101, L3400.0700, L501.4700, L3100.5020, L300.3900, L3890.6200, L501.6710, L506.1000, L501.9520 ####[facility] [address] [place], [address] Creatinine [Mass/Vol] 1.22 mg/dL Normal 0.70-1.30 [facility] Comment on above: Result Comment: Mode rate Icterus, Result may be falsely decreased.The validity of the calculated GFR GFRAA in patients over70 years has not been determined. Clinical correlation isessential. Performed By: #### L 3100.3425, L3100.5450, L500.4100, L500.4050, L3890.6005, L3300.0100, L503.6030, L3000.0375, L503.6550, L501.5101, L3400.0700, L501.4700, L3100.5020, L300.3900, L3890.6200, L501.6710, L506.1000, L501.9520 ####[facility] [address] [place], [place], [id number] EST GFR - AA 84 mL/min Normal >60 [facility] Comment on above: Result Comment: Afri can Slovak GFR Calc Performed By: #### L 3100.3425, L3100.5450, L500.4100, L500.4050, L3890.6005, L3300.0100, L503.6030, L3000.0375, L503.6550, L501.5101, L3400.0700, L501.4700, L3100.5020, L300.3900, L3890.6200, L501.6710, L506.1000, L501.9520 ####[facility] [address] [facility] [place], [address] GAP 7 Normal 5-15 [facility] Comment on above: Performed By: #### L 3100.3425, L3100.5450, L500.4100, L500.4050, L3890.6005, L3300.0100, L503.6030, L3000.0375, L503.6550, L501.5101, L3400.0700, L501.4700, L3100.5020, L300.3900, L3890.6200, L501.6710, L506.1000, L501.9520 ####[facility] [address] [place], [address] GFR/1.73 sq M.predicted among non-blacks MDRD (S/P/Bld) [Vol rate/Area] 70 mL/min/{1.73_m2} Normal >60 [facility] Comment on above: Result Comment: Non- GFR Calc Performed By: #### L 3100.3425, L3100.5450, L500.4100, L500.4050, L3890.6005, L3300.0100, L503.6030, L3000.0375, L503.6550, L501.5101, L3400.0700, L501.4700, L3100.5020, L300.3900, L3890.6200, L501.6710, L506.1000, L501.9520 ####[facility] [address] [place], [address] Globulin (S) [Mass/Vol] 3.8 g/dL Normal 2.2-4.2 [facility] Comment on above: Performed By: #### L 3100.3425, L3100.5450, L500.4100, L500.4050, L3890.6005, L3300.0100, L503.6030, L3000.0375, L503.6550, L501.5101, L3400.0700, L501.4700, L3100.5020, L300.3900, L3890.6200, L501.6710, L506.1000, L501.9520 ####[facility] [address] [place], [place], [id number] Glucose [Mass/Vol] 112 mg/dL High 74-106 [facility] Comment on above: Result Comment: Fast ing Glucose result from 100 to 125 mg/dLsuggests IMPAIRED HOMEOSTASIS per A.D.A. criteria. Performed By: #### L 3100.3425, L3100.5450, L500.4100, L500.4050, L3890.6005, L3300.0100, L503.6030, L3000.0375, L503.6550, L501.5101, L3400.0700, L501.4700, L3100.5020, L300.3900, L3890.6200, L501.6710, L506.1000, L501.9520 ####[facility] [address] [place], [place], [address] Potassium [Moles/Vol] 4.0 mmol/L Normal 3.5-5.1 [facility] Comment on above: Performed By: #### L 3100.3425, L3100.5450, L500.4100, L500.4050, L3890.6005, L3300.0100, L503.6030, L3000.0375, L503.6550, L501.5101, L3400.0700, L501.4700, L3100.5020, L300.3900, L3890.6200, L501.6710, L506.1000, L501.9520 ####[facility] [address] [place], [place], [address] Sodium [Moles/Vol] 137 mmol/L Normal 136-145 [facility] Comment on above: Performed By: #### L 3100.3425, L3100.5450, L500.4100, L500.4050, L3890.6005, L3300.0100, L503.6030, L3000.0375, L503.6550, L501.5101, L3400.0700, L501.4700, L3100.5020, L300.3900, L3890.6200, L501.6710, L506.1000, L501.9520 ####[facility] [address] [place], [place], [phone]) T PROT 7.0 g/dL Normal 6.4-8.2 [facility] Comment on above: Result Comment: Mode rate Icterus, Result may be falsely decreased. Performed By: #### L 3100.3425, L3100.5450, L500.4100, L500.4050, L3890.6005, L3300.0100, L503.6030, L3000.0375, L503.6550, L501.5101, L3400.0700, L501.4700, L3100.5020, L300.3900, L3890.6200, L501.6710, L506.1000, L501.9520 ####[facility] [address] [place], [place], [id number] Urea nitrogen [Mass/Vol] 17 mg/dL Normal 7-18 [facility] Comment on above: Performed By: #### L 3100.3425, L3100.5450, L500.4100, L500.4050, L3890.6005, L3300.0100, L503.6030, L3000.0375, L503.6550, L501.5101, L3400.0700, L501.4700, L3100.5020, L300.3900, L3890.6200, L501.6710, L506.1000, L501.9520 ####[facility] [address] [place], [place], [phone] Copper, serumOrdered By: Mendoza Lui on 09-11-2024 Serum Copper 185 ug/dL High 69-132 [facility] Comment on above: Detection Limit = 5P erformed at: [place] [id number] [place], [place] [id number] Director: Raj Dick PhD, Phone: [phone] at: [facility] [address] [id number] Director: Kelly Jansen MD, Phone: [phone] DNA double strand Ab Qn (S)O rdered By: Francesco Lui on 09-11-2024 Anti-Double Strand DNA Antibody Not Reportable [facility] Estimated glomerular filtrat ion rate (GFR) AmericanOrdered By: Francesco Lui on 09-11-2024 Estimated GFR (MDRD) Amer 84 mL/min >60 [facility] Comment on above: GFR Calc Ferritinon 09-11-2024 Ferritin [Mass/Vol] 746 ng/mL High 26-388 [facility] Comment on above: Result Comment: Mode rate Icterus, Result may be falsely decreased. Performed By: #### L 3100.3425, L3100.5450, L500.4100, L500.4050, L3890.6005, L3300.0100, L503.6030, L3000.0375, L503.6550, L501.5101, L3400.0700, L501.4700, L3100.5020, L300.3900, L3890.6200, L501.6710, L506.1000, L501.9520 ####[facility] [address] [place], [place], [phone] Ferritin measurementOrdered By: Francesco Lui on 09-11-2024 Ferritin [Mass/Vol] 746 ng/mL High 26-388 [facility] Comment on above: Moderate Icterus, Re sult may be falsely decreased. Gamma globulin Elph [Mass/Vo l]Ordered By: Francesco Lui on 09-11-2024 Gamma Globulins (AYDEN) 0.8 g/dL 0.4-1.8 [facility] Gamma glutamyl transferase ( GGT) measurementOrdered By: Francesco Lui on 09-11-2024 Amylase [Catalytic activity/Vol] 69 U/L High 0-65 [facility] Gastroenterology Visit Repor ton 09-11-2024 Gastroenterology Visit Report Normal [facility] Glomerular filtration rate ( GFR) estimationOrdered By: Francesco Lui on 09-11-2024 Estimated GFR (MDRD) Non-Af Amer 70 mL/min >60 [facility] Comment on above: Non- GFR Calc Glucose measurementOrdered B y: Francesco Lui on 09-11-2024 Glucose [Mass/Vol] 112 mg/dL High 74-106 [facility] Comment on above: Fasting Glucose resu lt from 100 to 125 mg/dL suggests IMPAIRED HOMEOSTASIS per A.D.A. criteria. HBV surface Ag IA QlOrdered By: Francesco Lui on 09-11-2024 Hepatitis B Surface Antigen Negative Negative [facility] HBV surface IgG Ql (S)Ordere d By: Francesco Lui on 09-11-2024 Hepatitis B Surface Antibody Non-Reactive [facility] Comment on above: Non Reactive: Incons istent with immunity less than <10 mIU/mL Reactive: Consistent with immunity greater than or equal to 10 mIU/mL HIV 1+2 Ab+HIV1 p24 Ag IA Ql Ordered By: Francesco Lui on 09-11-2024 HIV (1&2) Antibody Non-Reactive Nonreactive [facility] Hepatitis A virus IgM antibo dy assayOrdered By: Francesco uLi on 09-11-2024 Hepatitis A IgM Antibody Negative Negative [facility] Comment on above: A negative anti-HAV IgM result suggests no recent orcurrent HAV infection. Hepatitis B virus core IgM a ntibody assayOrdered By: Francesco Lui on 09-11-2024 Hepatitis B Core IgM Antibody Negative Negative [facility] Hepatitis C virus antibody a ssayOrdered By: Francesco Lui on 09-11-2024 Hepatitis C Antibody (EIA) Non-Reactive Non Reactive [facility] High density lipoprotein (HD L) measurementOrdered By: Francesco Lui on 09-11-2024 Cholesterol in HDL [Mass/Vol] 7 mg/dL Low >40 [facility] Comment on above: The drugs N-Acetylcy steine and Metamizole may falsely depress this assay. Reference Range HDL <40 mg/dL Low HDL Cholesterol HDL >or= 60 mg/dL High HDL Cholesterol IgA [Mass/Vol]Ordered By: Gracie Lui on 09-11-2024 Immunoglobulin A 150 mg/dL 90-386 [facility] IgG [Mass/Vol]Ordered By: Gracie Lui on 09-11-2024 Immunoglobulin G 904 mg/dL 603-1613 [facility] Immunoglobulin M measurement Ordered By: Francesco Lui on 09-11-2024 Immunoglobulin M 48 mg/dL 20-172 [facility] International normalized rat io (INR) calculationOrdered By: Francesco Lui on 09-11-2024 INR Coag (Bld) [Relative time] 0.9 {INR} [facility] Interpretation IEP [Interp]O rdered By: Francesco Lui on 09-11-2024 Immunofixation Screen Comment . [facility] Comment on above: No monoclonality det ected. Iron (Unsp spec) [Mass/Mass] Ordered By: Francesco Lui on 09-11-2024 Iron [Mass/Vol] 123 ug/dL 65-175 [facility] Iron saturation [Mass fracti on]Ordered By: Francesco Lui on 09-11-2024 Iron Saturation 32.5 % 15.0-55.0 [facility] Iron+Iron Binding Capacityon 09-11-2024 Iron [Mass/Vol] 123 ug/dL Normal 65-175 [facility] Comment on above: Performed By: #### L 3100.3425, L3100.5450, L500.4100, L500.4050, L3890.6005, L3300.0100, L503.6030, L3000.0375, L503.6550, L501.5101, L3400.0700, L501.4700, L3100.5020, L300.3900, L3890.6200, L501.6710, L506.1000, L501.9520 ####[facility] [address] [place], [place], [phone] IRON SATURATION 32.5 Normal 15.0-55.0 [facility] Comment on above: Performed By: #### L 3100.3425, L3100.5450, L500.4100, L500.4050, L3890.6005, L3300.0100, L503.6030, L3000.0375, L503.6550, L501.5101, L3400.0700, L501.4700, L3100.5020, L300.3900, L3890.6200, L501.6710, L506.1000, L501.9520 ####[facility] [address] [place], [place], [id number] TIBC 378 ug/dL Normal 250-450 [facility] Comment on above: Performed By: #### L 3100.3425, L3100.5450, L500.4100, L500.4050, L3890.6005, L3300.0100, L503.6030, L3000.0375, L503.6550, L501.5101, L3400.0700, L501.4700, L3100.5020, L300.3900, L3890.6200, L501.6710, L506.1000, L501.9520 ####[facility] [address] [place], [place], [phone] Tessa-1 antibody assayOrdered B y: Francesco Lui on 09-11-2024 TESSA-1 Antibody Not Reportable [facility] Laboratory - Chemistry and C hemistry - challengeOrdered By: Francesco Lui on 09-11-2024 AST [Catalytic activity/Vol] 64 U/L High 15-37 [facility] Lipid Profileon 09-11-2024 Cholesterol [Mass/Vol] 215 mg/dL High 200 [facility] Comment on above: Result Comment: Mode rate Icterus, Result may be falsely decreased. <200 mg/dL Desirable 200-240 mg/dL Borderline >240 mg/dL High Risk Performed By: #### L 3100.3425, L3100.5450, L500.4100, L500.4050, L3890.6005, L3300.0100, L503.6030, L3000.0375, L503.6550, L501.5101, L3400.0700, L501.4700, L3100.5020, L300.3900, L3890.6200, L501.6710, L506.1000, L501.9520 ####[facility] [address] [facility] [place], [address] Cholesterol in HDL [Mass/Vol] 7 mg/dL Low [facility] Comment on above: Result Comment: The drugs N-Acetylcysteine and Metamizole may falselydepress this assay. Reference Range HDL <40 mg/dL Low HDL Cholesterol HDL >or= 60 mg/dL High HDL Cholesterol Performed By: #### L 3100.3425, L3100.5450, L500.4100, L500.4050, L3890.6005, L3300.0100, L503.6030, L3000.0375, L503.6550, L501.5101, L3400.0700, L501.4700, L3100.5020, L300.3900, L3890.6200, L501.6710, L506.1000, L501.9520 ####[facility] [address] [facility] [place], [address] Cholesterol in LDL [Mass/Vol] 139 mg/dL High 0-130 [facility] Comment on above: Performed By: #### L 3100.3425, L3100.5450, L500.4100, L500.4050, L3890.6005, L3300.0100, L503.6030, L3000.0375, L503.6550, L501.5101, L3400.0700, L501.4700, L3100.5020, L300.3900, L3890.6200, L501.6710, L506.1000, L501.9520 ####[facility] [address] [facility] [place], [address] Cholesterol in VLDL [Mass/Vol] 69 mg/dL High 5-40 [facility] Comment on above: Performed By: #### L 3100.3425, L3100.5450, L500.4100, L500.4050, L3890.6005, L3300.0100, L503.6030, L3000.0375, L503.6550, L501.5101, L3400.0700, L501.4700, L3100.5020, L300.3900, L3890.6200, L501.6710, L506.1000, L501.9520 ####[facility] [address] [facility] [place], [place], [id number] Triglyceride [Mass/Vol] 345 mg/dL High [facility] Comment on above: Result Comment: The drugs [...] L501.4700, L3100.5020, L300.3900, L3890.6200, L501.6710, L506.1000, L501.9520 ####[facility] [address] [facility] [place], [place], [address] Low density lipoprotein (LDL ) cholesterol measurementOrdered By: Francesco Lui on 09-11-2024 Cholesterol in LDL [Mass/Vol] 139 mg/dL High 0-130 [facility] No Panel InformationOrdered By: Francesco Lui on 09-11-2024 Hepatitis C Antibody Comment Comment . [facility] Comment on above: Not infected with HC V unless early or acute infection issuspected (which may be delayed in an immunocompromisedindividual), or other evidence exists to indicate HCVinfection. Potassium measurementOrdered By: Francesco Lui on 09-11-2024 Potassium [Moles/Vol] 4.0 mmol/L 3.5-5.1 [facility] Protein Fractions Immunofixa tion Emanuel [Interp]Ordered By: Francesco Lui on 09-11-2024 M-Mychal (AYDEN) Not Observed g/dL Not Observed [facility] Prothrombin Time w/INRon INR Coag (PPP) [Relative time] 0.9 {INR} Normal [facility] Comment on above: Performed By: #### L 3100.3425, L3100.5450, L500.4100, L500.4050, L3890.6005, L3300.0100, L503.6030, L3000.0375, L503.6550, L501.5101, L3400.0700, L501.4700, L3100.5020, L300.3900, L3890.6200, L501.6710, L506.1000, L501.9520 ####[facility] [address] [place], [place], [id number] PT Coag (PPP) [Time] 12.3 s Normal 11.7-14.9 [facility] Comment on above: Performed By: #### L 3100.3425, L3100.5450, L500.4100, L500.4050, L3890.6005, L3300.0100, L503.6030, L3000.0375, L503.6550, L501.5101, L3400.0700, L501.4700, L3100.5020, L300.3900, L3890.6200, L501.6710, L506.1000, L501.9520 ####[facility] [address] [place], [address] Prothrombin timeOrdered By: Francesco Lui on 09-11-2024 PT Coag (PPP) [Time] 12.3 s 11.7-14.9 [facility] MEDIA CENTER ASSISTANT abOrdered By: Francesco Acharya and on 09-11-2024 MEDIA CENTER ASSISTANT Antibody Not Reportable [facility] SCL-70 extractable nuclear A b Qn (S)Ordered By: Francesco Lui on 09-11-2024 Scl-70 (Scleroderma) Antibody Not Reportable [facility] SS-A IgG antibody assayOrder ed By: Francesco Lui on 09-11-2024 SS-A/Ro IgG Antibody Not Reportable [facility] SS-B IgG antibody assayOrder ed By: Francesco Lui on 09-11-2024 SS-B/La IgG Antibody Not Reportable [facility] Serum albumin/globulin ratio Ordered By: Francesco Lui on 09-11-2024 Albumin/Globulin (AYDEN) 1.1 0.7-1.7 [facility] Serum anion gap measurementO rdered By: Francesco Lui on 09-11-2024 Anion gap [Moles/Vol] 7 mmol/L 5-15 [facility] Serum globulin measurement ( mass/volume)Ordered By: Francesco Lui on 09-11-2024 Globulin (S) [Mass/Vol] 3.2 g/dL 2.2-3.9 [facility] Serum or plasma alanine mays otransferase (ALT) measurementOrdered By: Francesco Lui on 09-11-2024 ALT [Catalytic activity/Vol] 70 U/L High 16-61 [facility] Serum or plasma albumin marquise urement (mass/volume)Ordered By: Francesco Lui on 09-11-2024 Albumin [Mass/Vol] 3.2 g/dL 3.2-5.0 [facility] Serum or plasma alkaline daniel sphatase measurementOrdered By: Francesco Lui on 09-11-2024 ALP [Catalytic activity/Vol] 155 U/L High 45-117 [facility] Serum or plasma calcium marquise urement (mass/volume)Ordered By: Francesco Lui on 09-11-2024 Calcium [Mass/Vol] 9.9 mg/dL 8.5-10.1 [facility] Serum or plasma cholesterol measurement (mass/volume)Ordered By: Francesco Lui on 09-11-2024 Cholesterol [Mass/Vol] 215 mg/dL High <200 [facility] Comment on above: Moderate Icterus, Re sult may be falsely decreased. <200 mg/dL Desirable 200-240 mg/dL Borderline >240 mg/dL High Risk Serum or plasma creatinine m easurement (mass/volume)Ordered By: Francesco Lui on 09-11-2024 Creatinine [Mass/Vol] 1.22 mg/dL 0.70-1.30 [facility] Comment on above: Moderate Icterus, Re sult may be falsely decreased.The validity of the calculated GFR & GFRAA in patients over 70 years has not been determined. Clinical correlation is essential. Serum or plasma protein marquise urement (mass/volume)Ordered By: Francesco Lui on 09-11-2024 Protein [Mass/Vol] 6.5 g/dL 6.0-8.5 [facility] Serum or plasma urea nitroge n measurement (mass/volume)Ordered By: Francesco Lui on 09-11-2024 Urea nitrogen [Mass/Vol] 17 mg/dL 7-18 [facility] Batista antibody assayOrdered By: Francesco Lui on 09-11-2024 SM Antibody Not Reportable [facility] Sodium levelOrdered By: Frederick Lui on 09-11-2024 Sodium [Moles/Vol] 137 mmol/L 136-145 [facility] TIBCOrdered By: Francesco love on 09-11-2024 Total Iron Binding Capacity 378 ug/dL 250-450 [facility] TSH QnOrdered By: Francesco Acharya and on 09-11-2024 Thyroid Stimulating Hormone (TSH) 0.918 uIU/mL 0.358-3.740 [facility] Thyroid Stim Hormone (TSH)on 09-11-2024 TSH 0.918 uIU/mL Normal 0.358-3.740 [facility] Comment on above: Performed By: #### L 3100.3425, L3100.5450, L500.4100, L500.4050, L3890.6005, L3300.0100, L503.6030, L3000.0375, L503.6550, L501.5101, L3400.0700, L501.4700, L3100.5020, L300.3900, L3890.6200, L501.6710, L506.1000, L501.9520 ####[facility] [address] [place], [address] Total proteinOrdered By: Mendoza Lui on 09-11-2024 Protein [Mass/Vol] 7.0 g/dL 6.4-8.2 [facility] Comment on above: Moderate Icterus, Re sult may be falsely decreased. Triglycerides measurementOrd ered By: Francesco Lui on 09-11-2024 Triglyceride [Mass/Vol] 345 mg/dL High <199 [facility] Comment on above: The drugs N-Acetylcy steine and Metamizole may falsely depress this assay. Moderate Icterus, Result may be falsely increased.Serum Triglycerides Reference Interval Normal <150 mg/dL Borderline high 150 - 199 mg/dL High 200 - 499 mg/dL Very High > or = 500 mg/dL Very low density lipoprotein (VLDL) cholesterol measurementOrdered By: Francesco Lui on 09-11-2024 VLDL Cholesterol 69 mg/dL High 5-40 [facility] QUIQUE Comprehensive Panelon QUIQUE TABLE Comment Normal . [facility] Comment on above: Result Comment: Auto antibody Disease Association ------- Condition Frequency ---------Antinuclear Antibody, SLE, mixed connectiveDirect (QIUQUE-D) tissue diseases ---------dsDNA SLE 40 - 60% ---------Chromatin Drug induced SLE 90% SLE 48 - 97% ---------SSA (Ro) SLE 25 - 35% Sjogren's Syndrome 40 - 70% Lupus 100% ---------SSB (La) SLE 10% Sjogren's Syndrome 30% ---------Sm (anti-Batista) SLE 15 - 30% ---------MEDIA CENTER ASSISTANT Mixed Connective Tissue Disease 95%(U1 nRNP, SLE 30 - 50%anti-ribonucleoprotein) Polymyositis and/or Dermatomyositis 20% ---------Scl-70 (antiDNA Scleroderma (diffuse) 20 - 35%topoisomerase) Crest 13% ---------Tessa-1 Polymyositis and/or Dermatomyositis 20 - 40% ---------Centromere B Scleroderma - Crest variant 80%Performed at: [facility] [address] [place], [place] [id number] Director: Raj Dick PhD, Phone: [phone] Performed By: #### L 3100.5440, L3100.5020 ####[facility] [address] [place], [address] ANTI-CENT B AB <0.2 Normal 0.0-0.9 [facility] Comment on above: Performed By: #### L 3100.5440, L3100.5020 ####[facility] [address] [place], [address] ANTI-DNA (DS)AB <1 Normal 0-9 [facility] Comment on above: Result Comment: Nega tive <5 Equivocal 5 - 9 Positive >9 Performed By: #### L 3100.5440, L3100.5020 ####[facility] [address] [place], [address] ANTI-TESSA-1 <0.2 Normal 0.0-0.9 [facility] Comment on above: Performed By: #### L 3100.5440, L3100.5020 ####[facility] [address] [place], [address] ANTI-SS-A < 0.2 Normal 0.0-0.9 [facility] Comment on above: Performed By: #### L 3100.5440, L3100.5020 ####[facility] [address] [place], [address] ANTI-SS-B < 0.2 Normal 0.0-0.9 [facility] Comment on above: Performed By: #### L 3100.5440, L3100.5020 ####[facility] [address] [place], [address] ANTICHROMATIN <0.2 Normal 0.0-0.9 [facility] Comment on above: Performed By: #### L 3100.5440, L3100.5020 ####[facility] [address] [place], [address] ANTISCLERODERM <0.2 Normal 0.0-0.9 [facility] Comment on above: Performed By: #### L 3100.5440, L3100.5020 ####[facility] [address] [place], [address] MEDIA CENTER ASSISTANT Ab <0.2 Normal 0.0-0.9 [facility] Comment on above: Performed By: #### L 3100.5440, L3100.5020 ####[facility] [address] [place], [address] BATISTA Ab <0.2 Normal 0.0-0.9 [facility] Comment on above: Performed By: #### L 3100.5440, L3100.5020 ####[facility] [address] [place], [address] Carbohydrate AG 19-9on 09-08 CA 19-9 139 U/mL High 0-35 [facility] Comment on above: Result Comment: [employer] [employer] Electrochemiluminescence Immunoassay(ECLIA)Values obtained with different assay methods or kits cannotbe used interchangeably. Results cannot be interpreted asabsolute evidence of the presence or absence of malignantdisease.Performed at: [address] [id number] Director: Raj Dick PhD, Phone: [phone] Performed By: #### L 3100.5440, L3100.5020 ####[facility] [address] [place], [address] ERCP Reporton 09-08-2024 ERCP Report Normal [facility] Albumin to globulin ratioOrd ered By: Cruz Arciniega on 09-07-2024 Albumin/Globulin [Mass ratio] 0.8 {ratio} Low 0.9-2.4 [facility] Bilirubin, totalOrdered By: Cruz Arciniega on 09-07-2024 Bilirubin [Mass/Vol] 16.70 mg/dL High 0.20-1.00 [facility] Comment on above: Critical Result(s) C alled at: 06:50:04 09/07/2024 by: Leesa Goodman to [facility]. Results read back by same. For patients on eltrombopag therapy, use of Dimension Aladdin TBIL is not recommended. Blood urea nitrogen (BUN)/cr eatinine ratioOrdered By: Cruz Arciniega on 09-07-2024 Urea nitrogen/Creatinine [Mass ratio] 16.8 mg/mg 10-20 [facility] Carbon dioxide measurementOr dered By: Cruz Arciniega on 09-07-2024 CO2 [Moles/Vol] 26.0 mmol/L 21.0-32.0 [facility] Chloride measurementOrdered By: Cruz Arciniega on 09-07-2024 Chloride [Moles/Vol] 106 mmol/L 98-107 [facility] Comprehensive Metabolic Prof ilon 09-07-2024 Albumin [Mass/Vol] 2.6 g/dL Low 3.2-5.0 [facility] Comment on above: Performed By: #### L 500.4050 ####[facility] [address] [place], [place], [id number] Albumin/Globulin [Mass ratio] 0.8 {ratio} Low 0.9-2.4 [facility] Comment on above: Performed By: #### L 500.4050 ####[facility] [address] [place], [address] ALK P 150 U/L High 45-117 [facility] Comment on above: Performed By: #### L 500.4050 ####[facility] [address] [place], [address] ALT [Catalytic activity/Vol] 50 U/L Normal 16-61 [facility] Comment on above: Performed By: #### L 500.4050 ####[facility] [address] [place], [address] AST [Catalytic activity/Vol] 47 U/L High 15-37 [facility] Comment on above: Performed By: #### L 500.4050 ####[facility] [address] [place], [address] Bilirubin [Mass/Vol] 16.70 mg/dL Invalid Interpretation Code 0.20-1.00 [facility] Comment on above: Result Comment: Crit ical Result(s) Called at: 06:50:04 09/07/2024 by:Leesa Goodman to [facility]. Results read back by same. For patients on eltrombopag therapy, use of Dimension Aladdin TBIL is not recommended. Performed By: #### L 500.4050 ####[facility] [address] [place], [address] BUN/CRE 16.8 RATIO Normal 10-20 [facility] Comment on above: Performed By: #### L 500.4050 ####[facility] [address] [place], [address] CA,Total 9.4 mg/dL Normal 8.5-10.1 [facility] Comment on above: Performed By: #### L 500.4050 ####[facility] [address] [place], [address] Chloride [Moles/Vol] 106 mmol/L Normal 98-107 [facility] Comment on above: Performed By: #### L 500.4050 ####[facility] [address] [place], [address] CO2 [Moles/Vol] 26.0 mmol/L Normal 21.0-32.0 [facility] Comment on above: Performed By: #### L 500.4050 ####[facility] [address] [place], [address] Creatinine [Mass/Vol] 1.19 mg/dL Normal 0.70-1.30 [facility] Comment on above: Result Comment: Mode rate Icterus, Result may be falsely decreased.The validity of the calculated GFR GFRAA in patients over70 years has not been determined. Clinical correlation isessential. Performed By: #### L 500.4050 ####[facility] [address] [place], [address] ECRCL 93.41 ml/min Normal [facility] Comment on above: Performed By: #### L 500.4050 ####[facility] [address] [place], [address] EST GFR - AA 87 mL/min Normal >60 [facility] Comment on above: Result Comment: Afri can Slovak GFR Calc Performed By: #### L 500.4050 ####[facility] [address] [place], [address] GAP 6 Normal 5-15 [facility] Comment on above: Performed By: #### L 500.4050 ####[facility] [address] [place], [address] GFR/1.73 sq M.predicted among non-blacks MDRD (S/P/Bld) [Vol rate/Area] 72 mL/min/{1.73_m2} Normal >60 [facility] Comment on above: Result Comment: Non- GFR Calc Performed By: #### L 500.4050 ####[facility] [address] [place], [address] Globulin (S) [Mass/Vol] 3.4 g/dL Normal 2.2-4.2 [facility] Comment on above: Performed By: #### L 500.4050 ####[facility] [address] [place], [address] Glucose [Mass/Vol] 100 mg/dL Normal 74-106 [facility] Comment on above: Result Comment: Fast ing Glucose result from 100 to 125 mg/dLsuggests IMPAIRED HOMEOSTASIS per A.D.A. criteria. Performed By: #### L 500.4050 ####[facility] [address] [place], [address] Potassium [Moles/Vol] 3.8 mmol/L Normal 3.5-5.1 [facility] Comment on above: Performed By: #### L 500.4050 ####[facility] [address] [place], [address] Sodium [Moles/Vol] 138 mmol/L Normal 136-145 [facility] Comment on above: Performed By: #### L 500.4050 ####[facility] [address] [place], [address] T PROT 6.0 g/dL Low 6.4-8.2 [facility] Comment on above: Result Comment: Mode rate Icterus, Result may be falsely decreased. Performed By: #### L 500.4050 ####[facility] [address] [place], [address] Urea nitrogen [Mass/Vol] 20 mg/dL High 7-18 [facility] Comment on above: Performed By: #### L 500.4050 ####[facility] [address] [place], [address] Estimated glomerular filtrat ion rate (GFR) AmericanOrdered By: Cruz Arciniega on 09-07-2024 Estimated GFR (MDRD) Amer 87 mL/min >60 [facility] Comment on above: GFR Calc Estimation of creatinine alyson aranceOrdered By: Cruz Arciniega on 09-07-2024 Estimated Creatinine Clearance Calc 93.41 ml/min [facility] Glomerular filtration rate ( GFR) estimationOrdered By: Cruz Arciniega on 09-07-2024 Estimated GFR (MDRD) Non-Af Amer 72 mL/min >60 [facility] Comment on above: Non- GFR Calc Glucose measurementOrdered B y: Cruz Arciniega on 09-07-2024 Glucose [Mass/Vol] 100 mg/dL 74-106 [facility] Comment on above: Fasting Glucose resu lt from 100 to 125 mg/dL suggests IMPAIRED HOMEOSTASIS per A.D.A. criteria. Laboratory - Chemistry and C hemistry - challengeOrdered By: Cruz Arciniega on 09-07-2024 AST [Catalytic activity/Vol] 47 U/L High 15-37 [facility] MR/PN.GIon 09-07-2024 MR/PN.GI Normal [facility] Potassium measurementOrdered By: Cruz Arciniega on 09-07-2024 Potassium [Moles/Vol] 3.8 mmol/L 3.5-5.1 [facility] Serum anion gap measurementO rdered By: Cruz Arciniega on 09-07-2024 Anion gap [Moles/Vol] 6 mmol/L 5-15 [facility] Serum globulin measurementOr dered By: Cruz Arciniega on 09-07-2024 Globulin (S) [Mass/Vol] 3.4 g/dL 2.2-4.2 [facility] Serum or plasma alanine mays otransferase (ALT) measurementOrdered By: Cruz Arciniega on 09-07-2024 ALT [Catalytic activity/Vol] 50 U/L 16-61 [facility] Serum or plasma albumin marquise urement (mass/volume)Ordered By: Cruz Arciniega on 09-07-2024 Albumin [Mass/Vol] 2.6 g/dL Low 3.2-5.0 [facility] Serum or plasma alkaline daniel sphatase measurementOrdered By: Cruz Arciniega on 09-07-2024 ALP [Catalytic activity/Vol] 150 U/L High 45-117 [facility] Serum or plasma calcium marquise urement (mass/volume)Ordered By: Cruz Arciniega on 09-07-2024 Calcium [Mass/Vol] 9.4 mg/dL 8.5-10.1 [facility] Serum or plasma creatinine m easurement (mass/volume)Ordered By: Cruz Arciniega on 09-07-2024 Creatinine [Mass/Vol] 1.19 mg/dL 0.70-1.30 [facility] Comment on above: Moderate Icterus, Re sult may be falsely decreased.The validity of the calculated GFR & GFRAA in patients over 70 years has not been determined. Clinical correlation is essential. Serum or plasma urea nitroge n measurement (mass/volume)Ordered By: Cruz Arciniega on 09-07-2024 Urea nitrogen [Mass/Vol] 20 mg/dL High 7-18 [facility] Sodium levelOrdered By: Truman mcfarlandel Arciniega on 09-07-2024 Sodium [Moles/Vol] 138 mmol/L 136-145 [facility] Total proteinOrdered By: Dionne Arciniega on 09-07-2024 Protein [Mass/Vol] 6.0 g/dL Low 6.4-8.2 [facility] Comment on above: Moderate Icterus, Re sult may be falsely decreased. Alpha fetoprotein measuremen t as tumor markerOrdered By: Denys Babin on 09-06-2024 Tumor Marker Alpha Fetoprotein 3.2 ng/mL 0.0-6.9 [facility] Comment on above: [employer] El ectrochemiluminescence Immunoassay(ECLIA)Values obtained with different assay methods or kits cannotbe used interchangeably. Results cannot be interpreted asabsolute evidence of the presence or absence of malignantdisease.This test is not interpretable in females.Previous reported result: ng/mLEdited by: MODESTA on 09/14/24:0922 AMENDED REPORT 09/14/24921 AFP TUMOR 2253 previously reported as: TEST RESULTS LIMITSAFP, Serum, Tumor Marker 3.2 ng/mL 0.0-6.9[employer] Electrochemiluminescence Immunoassay (ECLIA)Values obtained with different assay methods or kits cannot beused interchangeably. Results cannot be interpreted as absoluteevidence of the presence or absence of malignant disease.This test is not interpretable in females. TESTING PERFORMED AT [facility]. ORIGINAL REPORT ON FILE IN LAB CONTAINS ADDITIONAL TEST SITE INFORMATION. Atypical perinuclear antineu trophil cytoplasmic antibodies measurementOrdered By: Denys Babin on 09-06-2024 Atypical p-ANCA <1:20 titer Neg:<1:20 [facility] Comment on above: Note: Specimen is ic teric.The atypical pANCA pattern has been observed in asignificant percentage of patients with ulcerative colitis,primary sclerosing cholangitis and autoimmune hepatitis. CA 19-9 agOrdered By: Andrade Babin on 09-06-2024 CA 19-9 Antigen 139 U/mL High 0-35 [facility] Comment on above: [employer] El ectrochemiluminescence Immunoassay(ECLIA)Values obtained with different assay methods or kits cannotbe used interchangeably. Results cannot be interpreted asabsolute evidence of the presence or absence of malignantdisease.Performed at: [facility] [address] [id number] Director: Raj Dick PhD, Phone: [phone] CBC-Complete Blood Cnt No Di ffon 09-06-2024 Erythrocyte distribution width (RBC) [Ratio] 17.0 % High 11.6-14.6 [facility] Comment on above: Performed By: #### L 100.0500 ####[facility] [address] [facility] [address] [place], [place], [phone] Hematocrit (Bld) [Volume fraction] 38.6 % Low 40-54 [facility] Comment on above: Performed By: #### L 100.0500 ####[facility] [address] [place], [place], [phone] Hemoglobin (Bld) [Mass/Vol] 13.2 g/dL Normal 13.0-16.5 [facility] Comment on above: Performed By: #### L 100.0500 ####[facility] [address] [facility] [place], [address] MCH (RBC) [Entitic mass] 30.3 pg Normal 27.0-32.0 [facility] Comment on above: Performed By: #### L 100.0500 ####[facility] [address] [place], [address] MCHC (RBC) [Mass/Vol] 34.2 g/dL Normal 32-36 [facility] Comment on above: Performed By: #### L 100.0500 ####[facility] [address] [place], [address] MCV (RBC) [Entitic vol] 88.7 fL Normal 80-94 [facility] Comment on above: Performed By: #### L 100.0500 ####[facility] [address] [place], [address] Platelet mean volume (Bld) [Entitic vol] 9.5 fL Normal 6.2-12.0 [facility] Comment on above: Performed By: #### L 100.0500 ####[facility] [address] [place], [address] Platelets (Bld) [#/Vol] 291 10*3/uL Normal 150-450 [facility] Comment on above: Performed By: #### L 100.0500 ####[facility] [address] [place], [address] RBC (Bld) [#/Vol] 4.35 10*6/uL Low 4.6-6.2 [facility] Comment on above: Performed By: #### L 100.0500 ####[facility] [address] [place], [address] RDW SD 54.9 fl High 35.1-43.9 [facility] Comment on above: Performed By: #### L 100.0500 ####[facility] [address] [place], [address] WBC (Bld) [#/Vol] 6.8 10*3/uL Normal 4.4-11.0 [facility] Comment on above: Performed By: #### L 100.0500 ####[facility] [address] [place], [address] Centromere B antibody assayO rdered By: Denys Babin on 09-06-2024 Centromere B Antibody <0.2 AI 0.0-0.9 [facility] Chromatin antibody assayOrde red By: Denys Babin on 09-06-2024 Antichromatin Antibodies <0.2 AI 0.0-0.9 [facility] Comprehensive Metabolic Prof ilon 09-06-2024 Albumin [Mass/Vol] 2.8 g/dL Low 3.2-5.0 [facility] Comment on above: Performed By: #### L 500.4050, L501.5200, L501.2300 ####[facility] [address] [place], [address] Albumin/Globulin [Mass ratio] 0.8 {ratio} Low 0.9-2.4 [facility] Comment on above: Performed By: #### L 500.4050, L501.5200, L501.2300 ####[facility] [address] [place], [address] ALK P 165 U/L High 45-117 [facility] Comment on above: Performed By: #### L 500.4050, L501.5200, L501.2300 ####[facility] [address] [place], [address] ALT [Catalytic activity/Vol] 63 U/L High 16-61 [facility] Comment on above: Performed By: #### L 500.4050, L501.5200, L501.2300 ####[facility] [address] [place], [address] AST [Catalytic activity/Vol] 58 U/L High 15-37 [facility] Comment on above: Performed By: #### L 500.4050, L501.5200, L501.2300 ####[facility] [address] [place], [address] Bilirubin [Mass/Vol] 20.10 mg/dL Invalid Interpretation Code 0.20-1.00 [facility] Comment on above: Result Comment: Crit ical Result(s) Called at: 08:20:54 09/06/2024 by: CRISTIANO to [facility] Brewster. Results read back by same. For patients on eltrombopag therapy, use of Dimension Aladdin TBIL is not recommended. Performed By: #### L 500.4050, L501.5200, L501.2300 ####[facility] [address] [place], [address] BUN/CRE 11.9 RATIO Normal 10-20 [facility] Comment on above: Performed By: #### L 500.4050, L501.5200, L501.2300 ####[facility] [address] [place], [address] CA,Total 9.1 mg/dL Normal 8.5-10.1 [facility] Comment on above: Performed By: #### L 500.4050, L501.5200, L501.2300 ####[facility] [address] [place], [address] Chloride [Moles/Vol] 106 mmol/L Normal 98-107 [facility] Comment on above: Performed By: #### L 500.4050, L501.5200, L501.2300 ####[facility] [address] [place], [address] CO2 [Moles/Vol] 27.0 mmol/L Normal 21.0-32.0 [facility] Comment on above: Performed By: #### L 500.4050, L501.5200, L501.2300 ####[facility] [address] [place], [address] Creatinine [Mass/Vol] 1.18 mg/dL Normal 0.70-1.30 [facility] Comment on above: Result Comment: Mode rate Icterus, Result may be falsely decreased.The validity of the calculated GFR GFRAA in patients over70 years has not been determined. Clinical correlation isessential. Performed By: #### L 500.4050, L501.5200, L501.2300 ####[facility] [address] [place], [address] ECRCL 94.20 ml/min Normal [facility] Comment on above: Performed By: #### L 500.4050, L501.5200, L501.2300 ####[facility] [address] [place], [address] EST GFR - AA 88 mL/min Normal >60 [facility] Comment on above: Result Comment: Afri can Slovak GFR Calc Performed By: #### L 500.4050, L501.5200, L501.2300 ####[facility] [address] [place], [address] GAP 6 Normal 5-15 [facility] Comment on above: Performed By: #### L 500.4050, L501.5200, L501.2300 ####[facility] [address] [place], [address] GFR/1.73 sq M.predicted among non-blacks MDRD (S/P/Bld) [Vol rate/Area] 72 mL/min/{1.73_m2} Normal >60 [facility] Comment on above: Result Comment: Non- GFR Calc Performed By: #### L 500.4050, L501.5200, L501.2300 ####[facility] [address] [place], [address] Globulin (S) [Mass/Vol] 3.3 g/dL Normal 2.2-4.2 [facility] Comment on above: Performed By: #### L 500.4050, L501.5200, L501.2300 ####[facility] [address] [place], [address] Glucose [Mass/Vol] 112 mg/dL High 74-106 [facility] Comment on above: Result Comment: Fast ing Glucose result from 100 to 125 mg/dLsuggests IMPAIRED HOMEOSTASIS per A.D.A. criteria. Performed By: #### L 500.4050, L501.5200, L501.2300 ####[facility] [address] [place], [address] Potassium [Moles/Vol] 4.1 mmol/L Normal 3.5-5.1 [facility] Comment on above: Performed By: #### L 500.4050, L501.5200, L501.2300 ####[facility] [address] [place], [address] Sodium [Moles/Vol] 140 mmol/L Normal 136-145 [facility] Comment on above: Performed By: #### L 500.4050, L501.5200, L501.2300 ####[facility] [address] [place], [address] T PROT 6.1 g/dL Low 6.4-8.2 [facility] Comment on above: Result Comment: Mode rate Icterus, Result may be falsely decreased. Performed By: #### L 500.4050, L501.5200, L501.2300 ####[facility] [address] [place], [address] Urea nitrogen [Mass/Vol] 14 mg/dL Normal 7-18 [facility] Comment on above: Performed By: #### L 500.4050, L501.5200, L501.2300 ####[facility] [address] [place], [address] DNA double strand Ab Qn (S)O rdered By: Denys Babin on 09-06-2024 Anti-Double Strand DNA Antibody <1 IU/mL 0-9 [facility] Comment on above: Negative <5 Equivoca l 5 - 9 Positive >9 Erythrocyte distribution wid th ratioOrdered By: Cruz Arciniega on 09-06-2024 Erythrocyte distribution width (RBC) [Ratio] 17.0 % High 11.6-14.6 [facility] Erythrocyte distribution wid th standard deviationOrdered By: Cruz Arciniega on 09-06-2024 Erythrocyte distribution width (RBC) [Entitic vol] 54.9 fL High 35.1-43.9 [facility] Hematocrit Auto (Bld) [Volum e fraction]Ordered By: Cruz Arciniega on 09-06-2024 Hematocrit (Bld) [Volume fraction] 38.6 % Low 40-54 [facility] Hemoglobin measurementOrdere d By: Cruz Arciniega on 09-06-2024 Hemoglobin (Bld) [Mass/Vol] 13.2 g/dL 13.0-16.5 [facility] IgA [Mass/Vol]Ordered By: Ra parrish Babin on 09-06-2024 Immunoglobulin A 140 mg/dL 90-386 [facility] IgEOrdered By: Denys love on 09-06-2024 Immunoglobulin E 40 IU/mL 6-495 [facility] IgG [Mass/Vol]Ordered By: Ra parrish Babin on 09-06-2024 Immunoglobulin G See comment [facility] Comment on above: TEST RESULTS LIMITSI mmunoglobulins A/E/G/M, Serum Immunoglobulin E, Total 40 IU/mL 6-495 TESTING PERFORMED AT [facility]. ORIGINAL REPORT ON FILE IN LAB CONTAINS ADDITIONAL TEST SITE INFORMATION. Immunoglobulin G Total 888 mg/dL [phone] [facility] Comment on above: TEST RESULTS LIMITSI gG, Subclasses(1-4) IgG, Subclass 1 386 mg/dL 248-810 IgG, Subclass 2 276 mg/dL 130-555 IgG, Subclass 3 40 mg/dL 15-102 IgG, Subclass 4 89 mg/dL 2-96 TESTING PERFORMED AT [facility]. ORIGINAL REPORT ON FILE IN LAB CONTAINS ADDITIONAL TEST SITE INFORMATION. Previous reported result: mg/dLEdited by: MODESTA on 09/14/24:921 AMENDED REPORT 09/14/24921 IGG, QUANT previously reported as: TEST RESULTS LIMITSIgG, Subclasses(1-4) IgG, Subclass 1 386 mg/dL 248-810 IgG, Subclass 2 276 mg/dL 130-555 IgG, Subclass 3 40 mg/dL 15-102 IgG, Subclass 4 89 mg/dL 2-96 TESTING PERFORMED AT [facility]. ORIGINAL REPORT ON FILE IN LAB CONTAINS ADDITIONAL TEST SITE INFORMATION. IgG subclass 1 (S) [Mass/Vol ]Ordered By: Denys Babin on 09-06-2024 Immunoglobulin G1 386 mg/dL 248-810 [facility] IgG subclass 2 (S) [Mass/Vol ]Ordered By: Denys Babin on 09-06-2024 Immunoglobulin G2 276 mg/dL 130-555 [facility] IgG subclass 3 (S) [Mass/Vol ]Ordered By: Denys Babin on 09-06-2024 Immunoglobulin G3 40 mg/dL 15-102 [facility] Immunoglobulin G4 measuremen tOrdered By: Denys Babin on 09-06-2024 Immunoglobulin G4 89 mg/dL 2-96 [facility] Immunoglobulin M measurement Ordered By: Denys Babin on 09-06-2024 Immunoglobulin M 42 mg/dL 20-172 [facility] Tessa-1 antibody assayOrdered B y: Denys Babin on 09-06-2024 TESSA-1 Antibody <0.2 AI 0.0-0.9 [facility] MCV (mean corpuscular volume ) determinationOrdered By: Cruz Arciniega on 09-06-2024 MCV (RBC) [Entitic vol] 88.7 fL 80-94 [facility] MRCP Abdomen without Contras ton 09-06-2024 MRCP Abdomen without Contrast Normal [facility] Magnesiumon 09-06-2024 Magnesium [Mass/Vol] 2.1 mg/dL Normal 1.6-2.6 [facility] Comment on above: Performed By: #### L 500.4050, L501.5200, L501.2300 ####[facility] [address] [place], [place], [id number] Magnesium measurementOrdered By: Seth Stein on 09-06-2024 Magnesium [Mass/Vol] 2.1 mg/dL 1.6-2.6 [facility] Mean corpuscular hemoglobin (MCH) determinationOrdered By: Cruz Arciniega on 09-06-2024 MCH (RBC) [Entitic mass] 30.3 pg 27.0-32.0 [facility] Mean corpuscular hemoglobin concentration (MCHC) determinationOrdered By: Cruz Arciniega on 09-06-2024 MCHC (RBC) [Mass/Vol] 34.2 g/dL 32-36 [facility] Mean platelet volume determi nationOrdered By: Cruz Arciniega on 09-06-2024 Platelet mean volume (Bld) [Entitic vol] 9.5 fL 6.2-12.0 [facility] Neutrophil cytoplasmic Ab.cl assic Qn (S)Ordered By: Denys Babin on 09-06-2024 Cytoplasmic ANCA (c-ANCA) Antibody <1:20 titer Neg:<1:20 [facility] Comment on above: Note: Specimen is ic teric.Previous reported result: titerEdited by: MODESTA on 09/14/24:921 AMENDED REPORT 09/14/24921 CYTOPLASMIC Ab previously reported as: TEST RESULTS [...] up testing of positive sera with both UT-3 and MPO-ANCA enzyme immunoassays. As many as [...] Perinuclear ANCA (p-ANCA) Antibody <1:20 titer Neg:<1:20 [facility] Comment on above: Note: Specimen is ic teric.The presence of positive fluorescence exhibiting P-ANCA orC-ANCA patterns alone is not specific for the diagnosis ofWegener's Granulomatosis (WG) or microscopic polyangiitis.Decisions about treatment should not be based solely onANCA IFA results. The [employer] ANCA Group Consensusrecommends follow up testing of positive sera with both UT-3 and MPO-ANCA enzyme immunoassays. As many as 5% serumsamples are positive only by EIA. Ref. AM J Clin Ucuifs0232;111:[id number]. Phosphoruson 09-06-2024 Phosphate [Mass/Vol] 3.2 mg/dL Normal 2.5-4.9 [facility] Comment on above: Performed By: #### L 500.4050, L501.5200, L501.2300 ####[facility] [address] [place], [address] Phosphorus measurementOrdere d By: Seth Stein on 09-06-2024 Phosphorus Level 3.2 mg/dL 2.5-4.9 [facility] Platelet countOrdered By: Zaire Arciniega on 09-06-2024 Platelets (Bld) [#/Vol] 291 10*3/uL 150-450 [facility] RBC Auto (Bld) [#/Vol]Ordere d By: Cruz Arciniega on 09-06-2024 RBC (Bld) [#/Vol] 4.35 10*6/uL Low 4.6-6.2 [facility] MEDIA CENTER ASSISTANT abOrdered By: Denys Mercado iend on 09-06-2024 MEDIA CENTER ASSISTANT Antibody <0.2 AI 0.0-0.9 [facility] SCL-70 extractable nuclear A b Qn (S)Ordered By: Denys Babin on 09-06-2024 Scl-70 (Scleroderma) Antibody <0.2 AI 0.0-0.9 [facility] SS-A IgG antibody assayOrder ed By: Denys Babin on 09-06-2024 SS-A/Ro IgG Antibody < 0.2 AI 0.0-0.9 [facility] SS-B IgG antibody assayOrder ed By: Denys Babin on 09-06-2024 SS-B/La IgG Antibody < 0.2 AI 0.0-0.9 [facility] Batista antibody assayOrdered By: Denys Babin on 09-06-2024 SM Antibody <0.2 AI 0.0-0.9 [facility] White blood cell (WBC) count Ordered By: Cruz Arciniega on 09-06-2024 WBC (Bld) [#/Vol] 6.8 10*3/uL 4.4-11.0 [facility] 12 Lead EKGon 09-05-2024 12 Lead EKG Normal [facility] Absolute neutrophil countOrd ered By: Denys Babin on 09-05-2024 Neutrophils (Bld) [#/Vol] 7.0 10*3/uL 2.0-7.7 [facility] Basophil percentageOrdered B y: Denys Olaf on 09-05-2024 Basophils/100 WBC (Bld) 0.7 % 0-1 [facility] CBC W/Diff, Automatedon Absolute Lymph 0.63 X10 3/uL Low 0.83-4.51 [facility] Comment on above: Performed By: #### L 100.0100, L300.3900, L500.4050 ####[facility] [address] [place], [address] Absolute Neut 7.0 X10 3/uL Normal 2.0-7.7 [facility] Comment on above: Performed By: #### L 100.0100, L300.3900, L500.4050 ####[facility] [address] [place], [address] Basophils/100 WBC (Bld) 0.7 % Normal 0-1 [facility] Comment on above: Performed By: #### L 100.0100, L300.3900, L500.4050 ####[facility] [address] [place], [address] Eosinophils/100 WBC (Bld) 0.7 % Normal 0-5 [facility] Comment on above: Performed By: #### L 100.0100, L300.3900, L500.4050 ####[facility] [address] [place], [address] Erythrocyte distribution width (RBC) [Ratio] 16.8 % High 11.6-14.6 [facility] Comment on above: Performed By: #### L 100.0100, L300.3900, L500.4050 ####[facility] [address] [place], [address] Hematocrit (Bld) [Volume fraction] 39.7 % Low 40-54 [facility] Comment on above: Performed By: #### L 100.0100, L300.3900, L500.4050 ####[facility] [address] [place], [address] Hemoglobin (Bld) [Mass/Vol] 13.4 g/dL Normal 13.0-16.5 [facility] Comment on above: Performed By: #### L 100.0100, L300.3900, L500.4050 ####[facility] [address] [place], [address] IG% 0.700 Normal 0.0-0.9 [facility] Comment on above: Result Comment: IG% - Immature Granulocytes (promyelocytes, myelocytes andmetamyelocytes) > 1% indicates that a LEFT SHIFT is Present. Performed By: #### L 100.0100, L300.3900, L500.4050 ####[facility] [address] [place], [address] Lymphocytes/100 WBC (Bld) 7.6 % Low 19-41 [facility] Comment on above: Performed By: #### L 100.0100, L300.3900, L500.4050 ####[facility] [address] [place], [address] MCH (RBC) [Entitic mass] 30.0 pg Normal 27.0-32.0 [facility] Comment on above: Performed By: #### L 100.0100, L300.3900, L500.4050 ####[facility] [address] [place], [address] MCHC (RBC) [Mass/Vol] 33.8 g/dL Normal 32-36 [facility] Comment on above: Performed By: #### L 100.0100, L300.3900, L500.4050 ####[facility] [address] [place], [address] MCV (RBC) [Entitic vol] 89.0 fL Normal 80-94 [facility] Comment on above: Performed By: #### L 100.0100, L300.3900, L500.4050 ####[facility] [address] [place], [address] Monocytes/100 WBC (Bld) 5.9 % Normal 0-10 [facility] Comment on above: Performed By: #### L 100.0100, L300.3900, L500.4050 ####[facility] [address] [place], [address] Neutrophils/100 WBC (Bld) 84.4 % High 47-70 [facility] Comment on above: Performed By: #### L 100.0100, L300.3900, L500.4050 ####[facility] [address] [place], [address] Nucleated RBC (Bld) [#/Vol] 0 10*3/uL Normal 0-5 [facility] Comment on above: Performed By: #### L 100.0100, L300.3900, L500.4050 ####[facility] [address] [place], [address] Platelet mean volume (Bld) [Entitic vol] 9.5 fL Normal 6.2-12.0 [facility] Comment on above: Performed By: #### L 100.0100, L300.3900, L500.4050 ####[facility] [address] [place], [address] Platelets (Bld) [#/Vol] 322 10*3/uL Normal 150-450 [facility] Comment on above: Performed By: #### L 100.0100, L300.3900, L500.4050 ####[facility] [address] [place], [address] RBC (Bld) [#/Vol] 4.46 10*6/uL Low 4.6-6.2 [facility] Comment on above: Performed By: #### L 100.0100, L300.3900, L500.4050 ####[facility] [address] [place], [address] RDW SD 54.4 fl High 35.1-43.9 [facility] Comment on above: Performed By: #### L 100.0100, L300.3900, L500.4050 ####[facility] [address] [place], [address] WBC (Bld) [#/Vol] 8.3 10*3/uL Normal 4.4-11.0 [facility] Comment on above: Performed By: #### L 100.0100, L300.3900, L500.4050 ####[facility] [address] [place], [address] Absolute Lymph 0.94 X10 3/uL Normal 0.83-4.51 [facility] Comment on above: Performed By: #### L 501.5200, L500.4050, L501.2300, L100.0100 ####[facility] [address] [place], [address] Absolute Neut 2.0 X10 3/uL Normal 2.0-7.7 [facility] Comment on above: Performed By: #### L 501.5200, L500.4050, L501.2300, L100.0100 ####[facility] [address] [place], [address] Basophils/100 WBC (Bld) 1.4 % High 0-1 [facility] Comment on above: Performed By: #### L 501.5200, L500.4050, L501.2300, L100.0100 ####[facility] [address] [place], [address] Eosinophils/100 WBC (Bld) 3.3 % Normal 0-5 [facility] Comment on above: Performed By: #### L 501.5200, L500.4050, L501.2300, L100.0100 ####[facility] [address] [place], [address] Erythrocyte distribution width (RBC) [Ratio] 16.7 % High 11.6-14.6 [facility] Comment on above: Performed By: #### L 501.5200, L500.4050, L501.2300, L100.0100 ####[facility] [address] [place], [address] Hematocrit (Bld) [Volume fraction] 37.2 % Low 40-54 [facility] Comment on above: Performed By: #### L 501.5200, L500.4050, L501.2300, L100.0100 ####[facility] [address] [place], [address] Hemoglobin (Bld) [Mass/Vol] 12.3 g/dL Low 13.0-16.5 [facility] Comment on above: Performed By: #### L 501.5200, L500.4050, L501.2300, L100.0100 ####[facility] [address] [place], [address] IG% 1.400 High 0.0-0.9 [facility] Comment on above: Result Comment: IG% - Immature Granulocytes (promyelocytes, myelocytes andmetamyelocytes) > 1% indicates that a LEFT SHIFT is Present. Performed By: #### L 501.5200, L500.4050, L501.2300, L100.0100 ####[facility] [address] [place], [address] Lymphocytes/100 WBC (Bld) 25.8 % Normal 19-41 [facility] Comment on above: Performed By: #### L 501.5200, L500.4050, L501.2300, L100.0100 ####[facility] [address] [place], [address] MCH (RBC) [Entitic mass] 29.4 pg Normal 27.0-32.0 [facility] Comment on above: Performed By: #### L 501.5200, L500.4050, L501.2300, L100.0100 ####[facility] [address] [place], [address] MCHC (RBC) [Mass/Vol] 33.1 g/dL Normal 32-36 [facility] Comment on above: Performed By: #### L 501.5200, L500.4050, L501.2300, L100.0100 ####[facility] [address] [place], [address] MCV (RBC) [Entitic vol] 89.0 fL Normal 80-94 [facility] Comment on above: Performed By: #### L 501.5200, L500.4050, L501.2300, L100.0100 ####[facility] [address] [place], [address] Monocytes/100 WBC (Bld) 12.6 % High 0-10 [facility] Comment on above: Performed By: #### L 501.5200, L500.4050, L501.2300, L100.0100 ####[facility] [address] [place], [address] Neutrophils/100 WBC (Bld) 55.5 % Normal 47-70 [facility] Comment on above: Performed By: #### L 501.5200, L500.4050, L501.2300, L100.0100 ####[facility] [address] [place], [address] Nucleated RBC (Bld) [#/Vol] 0 10*3/uL Normal 0-5 [facility] Comment on above: Performed By: #### L 501.5200, L500.4050, L501.2300, L100.0100 ####[facility] [address] [place], [address] Platelet mean volume (Bld) [Entitic vol] 9.8 fL Normal 6.2-12.0 [facility] Comment on above: Performed By: #### L 501.5200, L500.4050, L501.2300, L100.0100 ####[facility] [address] [place], [address] Platelets (Bld) [#/Vol] 269 10*3/uL Normal 150-450 [facility] Comment on above: Performed By: #### L 501.5200, L500.4050, L501.2300, L100.0100 ####[facility] [address] [place], [address] RBC (Bld) [#/Vol] 4.18 10*6/uL Low 4.6-6.2 [facility] Comment on above: Performed By: #### L 501.5200, L500.4050, L501.2300, L100.0100 ####[facility] [address] [place], [address] RDW SD 54.4 fl High 35.1-43.9 [facility] Comment on above: Performed By: #### L 501.5200, L500.4050, L501.2300, L100.0100 ####[facility] [address] [place], [address] WBC (Bld) [#/Vol] 3.7 10*3/uL Low 4.4-11.0 [facility] Comment on above: Performed By: #### L 501.5200, L500.4050, L501.2300, L100.0100 ####[facility] [address] [place], [address] Comprehensive Metabolic Prof ilon 09-05-2024 Albumin [Mass/Vol] 3.1 g/dL Low 3.2-5.0 [facility] Comment on above: Performed By: #### L 100.0100, L300.3900, L500.4050 ####[facility] [address] [place], [address] Albumin/Globulin [Mass ratio] 1.0 {ratio} Normal 0.9-2.4 [facility] Comment on above: Performed By: #### L 100.0100, L300.3900, L500.4050 ####[facility] [address] [place], [address] ALK P 183 U/L High 45-117 [facility] Comment on above: Performed By: #### L 100.0100, L300.3900, L500.4050 ####[facility] [address] [place], [address] ALT [Catalytic activity/Vol] 71 U/L High 16-61 [facility] Comment on above: Performed By: #### L 100.0100, L300.3900, L500.4050 ####[facility] [address] [place], [address] AST [Catalytic activity/Vol] 72 U/L High 15-37 [facility] Comment on above: Result Comment: Slig ht Hemolysis, Result may be falsely increased. Performed By: #### L 100.0100, L300.3900, L500.4050 ####[facility] [address] [place], [address] Bilirubin [Mass/Vol] 22.10 mg/dL Invalid Interpretation Code 0.20-1.00 [facility] Comment on above: Result Comment: Crit ical Result(s) Called at: 16:27:09 09/05/2024 by: VU TO DIANA BREWSTER. Results read back by same. For patients on eltrombopag therapy, use of Dimension Aladdin TBIL is not recommended. Performed By: #### L 100.0100, L300.3900, L500.4050 ####[facility] [address] [place], [address] BUN/CRE 8.8 RATIO Low 10-20 [facility] Comment on above: Performed By: #### L 100.0100, L300.3900, L500.4050 ####[facility] [address] [place], [address] CA,Total 9.3 mg/dL Normal 8.5-10.1 [facility] Comment on above: Performed By: #### L 100.0100, L300.3900, L500.4050 ####[facility] [address] [place], [address] Chloride [Moles/Vol] 107 mmol/L Normal 98-107 [facility] Comment on above: Performed By: #### L 100.0100, L300.3900, L500.4050 ####[facility] [address] [place], [address] CO2 [Moles/Vol] 24.0 mmol/L Normal 21.0-32.0 [facility] Comment on above: Performed By: #### L 100.0100, L300.3900, L500.4050 ####[facility] [address] [place], [address] Creatinine [Mass/Vol] 1.13 mg/dL Normal 0.70-1.30 [facility] Comment on above: Result Comment: Mode rate Icterus, Result may be falsely decreased.The validity of the calculated GFR GFRAA in patients over70 years has not been determined. Clinical correlation isessential. Performed By: #### L 100.0100, L300.3900, L500.4050 ####[facility] [address] [place], [address] ECRCL 98.71 ml/min Normal [facility] Comment on above: Performed By: #### L 100.0100, L300.3900, L500.4050 ####[facility] [address] [place], [address] EST GFR - AA 92 mL/min Normal >60 [facility] Comment on above: Result Comment: Afri can Slovak GFR Calc Performed By: #### L 100.0100, L300.3900, L500.4050 ####[facility] [address] [place], [address] GAP 8 Normal 5-15 [facility] Comment on above: Performed By: #### L 100.0100, L300.3900, L500.4050 ####[facility] [address] [place], [address] GFR/1.73 sq M.predicted among non-blacks MDRD (S/P/Bld) [Vol rate/Area] 76 mL/min/{1.73_m2} Normal >60 [facility] Comment on above: Result Comment: Non- GFR Calc Performed By: #### L 100.0100, L300.3900, L500.4050 ####[facility] [address] [place], [address] Globulin (S) [Mass/Vol] 3.0 g/dL Normal 2.2-4.2 [facility] Comment on above: Performed By: #### L 100.0100, L300.3900, L500.4050 ####[facility] [address] [place], [address] Glucose [Mass/Vol] 104 mg/dL Normal 74-106 [facility] Comment on above: Result Comment: Fast ing Glucose result from 100 to 125 mg/dLsuggests IMPAIRED HOMEOSTASIS per A.D.A. criteria. Performed By: #### L 100.0100, L300.3900, L500.4050 ####[facility] [address] [place], [address] Potassium [Moles/Vol] 4.4 mmol/L Normal 3.5-5.1 [facility] Comment on above: Result Comment: Slig ht Hemolysis, Result may be falsely increased. Performed By: #### L 100.0100, L300.3900, L500.4050 ####[facility] [address] [place], [address] Sodium [Moles/Vol] 140 mmol/L Normal 136-145 [facility] Comment on above: Performed By: #### L 100.0100, L300.3900, L500.4050 ####[facility] [address] [place], [address] T PROT 6.1 g/dL Low 6.4-8.2 [facility] Comment on above: Result Comment: Mode rate Icterus, Result may be falsely decreased. Performed By: #### L 100.0100, L300.3900, L500.4050 ####[facility] [address] [place], [address] Urea nitrogen [Mass/Vol] 10 mg/dL Normal 7-18 [facility] Comment on above: Performed By: #### L 100.0100, L300.3900, L500.4050 ####[facility] [address] [place], [address] Albumin [Mass/Vol] 2.7 g/dL Low 3.2-5.0 [facility] Comment on above: Performed By: #### L 501.5200, L500.4050, L501.2300, L100.0100 ####[facility] [address] [place], [address] Albumin/Globulin [Mass ratio] 0.9 {ratio} Normal 0.9-2.4 [facility] Comment on above: Performed By: #### L 501.5200, L500.4050, L501.2300, L100.0100 ####[facility] [address] [place], [address] ALK P 153 U/L High 45-117 [facility] Comment on above: Performed By: #### L 501.5200, L500.4050, L501.2300, L100.0100 ####[facility] [address] [place], [address] ALT [Catalytic activity/Vol] 57 U/L Normal 16-61 [facility] Comment on above: Performed By: #### L 501.5200, L500.4050, L501.2300, L100.0100 ####[facility] [address] [place], [address] AST [Catalytic activity/Vol] 55 U/L High 15-37 [facility] Comment on above: Performed By: #### L 501.5200, L500.4050, L501.2300, L100.0100 ####[facility] [address] [place], [address] Bilirubin [Mass/Vol] 19.20 mg/dL Invalid Interpretation Code 0.20-1.00 [facility] Comment on above: Result Comment: Crit ical Result(s) Called at: 06:08:04 09/05/2024 by: CRISTIANO to Sadaf Kate. Results read back by same. For patients on eltrombopag therapy, use of Dimension Aladdin TBIL is not recommended. Performed By: #### L 501.5200, L500.4050, L501.2300, L100.0100 ####[facility] [address] [place], [address] BUN/CRE 9.8 RATIO Low 10-20 [facility] Comment on above: Performed By: #### L 501.5200, L500.4050, L501.2300, L100.0100 ####[facility] [address] [place], [address] CA,Total 9.0 mg/dL Normal 8.5-10.1 [facility] Comment on above: Performed By: #### L 501.5200, L500.4050, L501.2300, L100.0100 ####[facility] [address] [place], [address] Chloride [Moles/Vol] 107 mmol/L Normal 98-107 [facility] Comment on above: Performed By: #### L 501.5200, L500.4050, L501.2300, L100.0100 ####[facility] [address] [place], [address] CO2 [Moles/Vol] 25.0 mmol/L Normal 21.0-32.0 [facility] Comment on above: Performed By: #### L 501.5200, L500.4050, L501.2300, L100.0100 ####[facility] [address] [place], [address] Creatinine [Mass/Vol] 1.02 mg/dL Normal 0.70-1.30 [facility] Comment on above: Result Comment: Mode rate Icterus, Result may be falsely decreased.The validity of the calculated GFR GFRAA in patients over70 years has not been determined. Clinical correlation isessential. Performed By: #### L 501.5200, L500.4050, L501.2300, L100.0100 ####[facility] [address] [place], [address] ECRCL 109.35 ml/min Normal [facility] Comment on above: Performed By: #### L 501.5200, L500.4050, L501.2300, L100.0100 ####[facility] [address] [place], [address] EST GFR - AA 104 mL/min Normal >60 [facility] Comment on above: Result Comment: Afri can Slovak GFR Calc Performed By: #### L 501.5200, L500.4050, L501.2300, L100.0100 ####[facility] [address] [place], [address] GAP 6 Normal 5-15 [facility] Comment on above: Performed By: #### L 501.5200, L500.4050, L501.2300, L100.0100 ####[facility] [address] [place], [address] GFR/1.73 sq M.predicted among non-blacks MDRD (S/P/Bld) [Vol rate/Area] 86 mL/min/{1.73_m2} Normal >60 [facility] Comment on above: Result Comment: Non- GFR Calc Performed By: #### L 501.5200, L500.4050, L501.2300, L100.0100 ####[facility] [address] [place], [address] Globulin (S) [Mass/Vol] 3.1 g/dL Normal 2.2-4.2 [facility] Comment on above: Performed By: #### L 501.5200, L500.4050, L501.2300, L100.0100 ####[facility] [address] [place], [address] Glucose [Mass/Vol] 93 mg/dL Normal 74-106 [facility] Comment on above: Performed By: #### L 501.5200, L500.4050, L501.2300, L100.0100 ####[facility] [address] [place], [address] Potassium [Moles/Vol] 3.7 mmol/L Normal 3.5-5.1 [facility] Comment on above: Performed By: #### L 501.5200, L500.4050, L501.2300, L100.0100 ####[facility] [address] [place], [address] Sodium [Moles/Vol] 138 mmol/L Normal 136-145 [facility] Comment on above: Performed By: #### L 501.5200, L500.4050, L501.2300, L100.0100 ####[facility] [address] [place], [address] T PROT 5.8 g/dL Low 6.4-8.2 [facility] Comment on above: Result Comment: Mode rate Icterus, Result may be falsely decreased. Performed By: #### L 501.5200, L500.4050, L501.2300, L100.0100 ####[facility] [address] [place], [address] Urea nitrogen [Mass/Vol] 10 mg/dL Normal 7-18 [facility] Comment on above: Performed By: #### L 501.5200, L500.4050, L501.2300, L100.0100 ####[facility] [address] [place], [address] ERCP Biliary/Pancreason ERCP Biliary/Pancreas Normal [facility] Eosinophil percentageOrdered By: Denys Babin on 09-05-2024 Eosinophils/100 WBC (Bld) 0.7 % 0-5 [facility] High density lipoprotein (HD L) measurementOrdered By: Seth Stein on 09-05-2024 Cholesterol in HDL [Mass/Vol] 6 mg/dL Low >40 [facility] Comment on above: The drugs N-Acetylcy steine and Metamizole may falsely depress this assay. Reference Range HDL <40 mg/dL Low HDL Cholesterol HDL >or= 60 mg/dL High HDL Cholesterol Immature granulocytes/100 WB C Auto (Bld)Ordered By: Denys Babin on 09-05-2024 Immature granulocytes/100 WBC (Bld) 0.700 % 0.0-0.9 [facility] Comment on above: IG% - Immature Granu locytes (promyelocytes, myelocytes and metamyelocytes) > 1% indicates that a LEFT SHIFT is Present. International normalized rat io (INR) calculationOrdered By: Denys Babin on 09-05-2024 INR Coag (Bld) [Relative time] 0.9 {INR} [facility] LDHon 09-05-2024 LDH 133 U/L Normal 87-241 [facility] Comment on above: Performed By: #### L 3200.1100, L3300.0700, L3300.1200, L3200.0500, L504.2610 ####[facility] [address] [place], [place], [id number] Lactate dehydrogenase (LDH) measurementOrdered By: Denys Babin on 09-05-2024 LDH [Catalytic activity/Vol] 133 U/L 87-241 [facility] Lipid Profileon 09-05-2024 Cholesterol [Mass/Vol] 156 mg/dL Normal 200 [facility] Comment on above: Result Comment: Mode rate Icterus, Result may be falsely decreased. <200 mg/dL Desirable 200-240 mg/dL Borderline >240 mg/dL High Risk Performed By: #### L 500.4100 ####[facility] [address] [place], [address] Cholesterol in HDL [Mass/Vol] 6 mg/dL Low [facility] Comment on above: Result Comment: The drugs N-Acetylcysteine and Metamizole may falselydepress this assay. Reference Range HDL <40 mg/dL Low HDL Cholesterol HDL >or= 60 mg/dL High HDL Cholesterol Performed By: #### L 500.4100 ####[facility] [address] [place], [address] Cholesterol in LDL [Mass/Vol] 83 mg/dL Normal 0-130 [facility] Comment on above: Performed By: #### L 500.4100 ####[facility] [address] [place], [address] Cholesterol in VLDL [Mass/Vol] 67 mg/dL High 5-40 [facility] Comment on above: Performed By: #### L 500.4100 ####[facility] [address] [place], [address] Triglyceride [Mass/Vol] 333 mg/dL High [facility] Comment on above: Result Comment: The drugs N-Acetylcysteine and Metamizole may falselydepress this assay.Moderate Icterus, Result may be falsely increased.Serum Triglycerides Reference Interval Normal <150 mg/dL Borderline high 150 - 199 mg/dL High 200 - 499 mg/dL Very High > or = 500 mg/dL Performed By: #### L 500.4100 ####[facility] [address] [place], [address] Low density lipoprotein (LDL ) cholesterol measurementOrdered By: Seth Stein on 09-05-2024 Cholesterol in LDL [Mass/Vol] 83 mg/dL 0-130 [facility] Lymphocytes Auto (Unsp spec) [#/Vol]Ordered By: Denys Babin on 09-05-2024 Lymphocytes (Bld) [#/Vol] 0.63 10*3/uL Low 0.83-4.51 [facility] Lymphocytes/100 WBC Auto (Un sp spec)Ordered By: Denys Olaf on 09-05-2024 Lymphocytes/100 WBC (Bld) 7.6 % Low 19-41 [facility] MR/POSTOP.ANEon 09-05-2024 MR/POSTOP.ANE Normal [facility] MR/KXIQDRUB0bv 09-05-2024 MR/POSTOPAN2 Normal [facility] MR/POSTOPAN2 Normal [facility] Magnesiumon 09-05-2024 Magnesium [Mass/Vol] 2.2 mg/dL Normal 1.6-2.6 [facility] Comment on above: Performed By: #### L 501.5200, L500.4050, L501.2300, L100.0100 ####[facility] [address] [place], [address] Monocyte percentageOrdered B y: Denys Olaf on 09-05-2024 Monocytes/100 WBC (Bld) 5.9 % 0-10 [facility] Neutrophil percentageOrdered By: Denyskelly Babin on 09-05-2024 Neutrophils/100 WBC (Bld) 84.4 % High 47-70 [facility] Nucleated red blood cell per centageOrdered By: Denyskelly Babin on 09-05-2024 Nucleated RBC/100 WBC (Bld) [Ratio] 0 % 0-5 [facility] Phosphoruson 09-05-2024 Phosphate [Mass/Vol] 3.8 mg/dL Normal 2.5-4.9 [facility] Comment on above: Performed By: #### L 501.5200, L500.4050, L501.2300, L100.0100 ####[facility] [id number] [place], [place], [id number] Prothrombin Time w/INRon INR Coag (PPP) [Relative time] 0.9 {INR} Normal [facility] Comment on above: Performed By: #### L 100.0100, L300.3900, L500.4050 ####[facility] [id number] [place], [address] PT Coag (PPP) [Time] 11.9 s Normal 11.7-14.9 [facility] Comment on above: Performed By: #### L 100.0100, L300.3900, L500.4050 ####[facility] [id number] [place], [address] Prothrombin timeOrdered By: Denys Babin on 09-05-2024 PT Coag (PPP) [Time] 11.9 s 11.7-14.9 [facility] Serum or plasma cholesterol measurement (mass/volume)Ordered By: Seth Stein on 09-05-2024 Cholesterol [Mass/Vol] 156 mg/dL <200 [facility] Comment on above: Moderate Icterus, Re sult may be falsely decreased. <200 mg/dL Desirable 200-240 mg/dL Borderline >240 mg/dL High Risk Triglycerides measurementOrd ered By: Seth Stein on 09-05-2024 Triglyceride [Mass/Vol] 333 mg/dL High <199 [facility] Comment on above: The drugs N-Acetylcy steine and Metamizole may falsely depress this assay. Moderate Icterus, Result may be falsely increased.Serum Triglycerides Reference Interval Normal <150 mg/dL Borderline high 150 - 199 mg/dL High 200 - 499 mg/dL Very High > or = 500 mg/dL Very low density lipoprotein (VLDL) cholesterol measurementOrdered By: Seth Stein on 09-05-2024 VLDL Cholesterol 67 mg/dL High 5-40 [facility] Abdomen/Pelvis W IV Cont ONL Yon 2024 Abdomen/Pelvis W IV Cont ONLY Normal [facility] Bilirubin Test strip Ql (U)O rdered By: Rod Ross on 2024 Bilirubin Ql (U) Negative Negative [facility] Bilirubin directOrdered By: Ita Cueto on 2024 Bilirubin.direct [Mass/Vol] 20.11 mg/dL High 0.00-0.30 [facility] Comment on above: Critical Result(s) C alled at: 20:11:53 2024 by: JAX COOK. Results read back by Gertrude MIGUEL Bilirubin, Directon 09-04-20 24 Bilirubin.direct [Mass/Vol] 20.11 mg/dL High 0.00-0.30 [facility] Comment on above: Result Comment: Crit ical Result(s) Called at: 20:11:53 2024 by: STEPHAN. Results read back by Gertrude MIGUEL Performed By: #### L 501.4700 ####[facility] [address] [place], [address] CBC W/Diff, Automatedon Absolute Lymph 1.03 X10 3/uL Normal 0.83-4.51 [facility] Comment on above: Performed By: #### L 500.4050, L100.0100 ####[facility] [address] [place], [address] Absolute Neut 3.5 X10 3/uL Normal 2.0-7.7 [facility] Comment on above: Performed By: #### L 500.4050, L100.0100 ####[facility] [address] [place], [address] Basophils/100 WBC (Bld) 1.1 % High 0-1 [facility] Comment on above: Performed By: #### L 500.4050, L100.0100 ####[facility] [address] [place], [address] Eosinophils/100 WBC (Bld) 2.9 % Normal 0-5 [facility] Comment on above: Performed By: #### L 500.4050, L100.0100 ####[facility] [address] [place], [address] Erythrocyte distribution width (RBC) [Ratio] 16.2 % High 11.6-14.6 [facility] Comment on above: Performed By: #### L 500.4050, L100.0100 ####[facility] [address] [place], [address] Hematocrit (Bld) [Volume fraction] 43.1 % Normal 40-54 [facility] Comment on above: Performed By: #### L 500.4050, L100.0100 ####[facility] [address] [place], [address] Hemoglobin (Bld) [Mass/Vol] 14.3 g/dL Normal 13.0-16.5 [facility] Comment on above: Performed By: #### L 500.4050, L100.0100 ####[facility] [address] [place], [address] IG% 1.600 High 0.0-0.9 [facility] Comment on above: Result Comment: IG% - Immature Granulocytes (promyelocytes, myelocytes andmetamyelocytes) > 1% indicates that a LEFT SHIFT is Present. Performed By: #### L 500.4050, L100.0100 ####[facility] [address] [place], [address] Lymphocytes/100 WBC (Bld) 18.8 % Low 19-41 [facility] Comment on above: Performed By: #### L 500.4050, L100.0100 ####[facility] [address] [place], [address] MCH (RBC) [Entitic mass] 30.0 pg Normal 27.0-32.0 [facility] Comment on above: Performed By: #### L 500.4050, L100.0100 ####[facility] [address] [place], [address] MCHC (RBC) [Mass/Vol] 33.2 g/dL Normal 32-36 [facility] Comment on above: Performed By: #### L 500.4050, L100.0100 ####[facility] [address] [place], [address] MCV (RBC) [Entitic vol] 90.4 fL Normal 80-94 [facility] Comment on above: Performed By: #### L 500.4050, L100.0100 ####[facility] [address] [place], [address] Monocytes/100 WBC (Bld) 12.4 % High 0-10 [facility] Comment on above: Performed By: #### L 500.4050, L100.0100 ####[facility] [address] [place], [address] Neutrophils/100 WBC (Bld) 63.2 % Normal 47-70 [facility] Comment on above: Performed By: #### L 500.4050, L100.0100 ####[facility] [address] [place], [address] Nucleated RBC (Bld) [#/Vol] 0 10*3/uL Normal 0-5 [facility] Comment on above: Performed By: #### L 500.4050, L100.0100 ####[facility] [address] [place], [address] Platelet mean volume (Bld) [Entitic vol] 9.5 fL Normal 6.2-12.0 [facility] Comment on above: Performed By: #### L 500.4050, L100.0100 ####[facility] [address] [place], [address] Platelets (Bld) [#/Vol] 325 10*3/uL Normal 150-450 [facility] Comment on above: Performed By: #### L 500.4050, L100.0100 ####[facility] [address] [place], [address] RBC (Bld) [#/Vol] 4.77 10*6/uL Normal 4.6-6.2 [facility] Comment on above: Performed By: #### L 500.4050, L100.0100 ####[facility] [address] [place], [address] RDW SD 54.2 fl High 35.1-43.9 [facility] Comment on above: Performed By: #### L 500.4050, L100.0100 ####[facility] [address] [place], [address] WBC (Bld) [#/Vol] 5.5 10*3/uL Normal 4.4-11.0 [facility] Comment on above: Performed By: #### L 500.4050, L100.0100 ####[facility] [address] [place], [address] Comprehensive Metabolic Prof [place] 2024 Albumin [Mass/Vol] 3.7 g/dL Normal 3.2-5.0 [facility] Comment on above: Performed By: #### L 500.4050, L100.0100 ####[facility] [address] [place], [address] Albumin/Globulin [Mass ratio] 0.9 {ratio} Normal 0.9-2.4 [facility] Comment on above: Performed By: #### L 500.4050, L100.0100 ####[facility] [address] [place], [address] ALK P 199 U/L High 45-117 [facility] Comment on above: Performed By: #### L 500.4050, L100.0100 ####[facility] [address] [place], [address] ALT [Catalytic activity/Vol] 78 U/L High 16-61 [facility] Comment on above: Performed By: #### L 500.4050, L100.0100 ####[facility] [address] [place], [address] AST [Catalytic activity/Vol] 68 U/L High 15-37 [facility] Comment on above: Performed By: #### L 500.4050, L100.0100 ####[facility] [address] [place], [address] Bilirubin [Mass/Vol] 23.90 mg/dL Invalid Interpretation Code 0.20-1.00 [facility] Comment on above: Result Comment: Crit ical Result(s) Called at: 19:05:27 2024 by: STEPHAN. Results read back by Vaishnavi For patients on eltrombopag therapy, use of Dimension Aladdin TBIL is not recommended. Performed By: #### L 500.4050, L100.0100 ####[facility] [address] [place], [address] BUN/CRE 11.5 RATIO Normal 10-20 [facility] Comment on above: Performed By: #### L 500.4050, L100.0100 ####[facility] [address] [place], [address] CA,Total 9.8 mg/dL Normal 8.5-10.1 [facility] Comment on above: Performed By: #### L 500.4050, L100.0100 ####[facility] [address] [place], [address] Chloride [Moles/Vol] 102 mmol/L Normal 98-107 [facility] Comment on above: Performed By: #### L 500.4050, L100.0100 ####[facility] [address] [place], [address] CO2 [Moles/Vol] 28.0 mmol/L Normal 21.0-32.0 [facility] Comment on above: Performed By: #### L 500.4050, L100.0100 ####[facility] [address] [place], [address] Creatinine [Mass/Vol] 1.13 mg/dL Normal 0.70-1.30 [facility] Comment on above: Result Comment: Mode rate Icterus, Result may be falsely decreased.The validity of the calculated GFR GFRAA in patients over70 years has not been determined. Clinical correlation isessential. Performed By: #### L 500.4050, L100.0100 ####[facility] [address] [place], [address] ECRCL 99.11 ml/min Normal [facility] Comment on above: Performed By: #### L 500.4050, L100.0100 ####[facility] [address] [place], [address] EST GFR - AA 92 mL/min Normal >60 [facility] Comment on above: Result Comment: Afri can Slovak GFR Calc Performed By: #### L 500.4050, L100.0100 ####[facility] [address] [place], [address] GAP 8 Normal 5-15 [facility] Comment on above: Performed By: #### L 500.4050, L100.0100 ####[facility] [address] [place], [address] GFR/1.73 sq M.predicted among non-blacks MDRD (S/P/Bld) [Vol rate/Area] 76 mL/min/{1.73_m2} Normal >60 [facility] Comment on above: Result Comment: Non- GFR Calc Performed By: #### L 500.4050, L100.0100 ####[facility] [address] [place], [address] Globulin (S) [Mass/Vol] 3.9 g/dL Normal 2.2-4.2 [facility] Comment on above: Performed By: #### L 500.4050, L100.0100 ####[facility] [address] [place], [address] Glucose [Mass/Vol] 105 mg/dL Normal 74-106 [facility] Comment on above: Result Comment: Fast ing Glucose result from 100 to 125 mg/dLsuggests IMPAIRED HOMEOSTASIS per A.D.A. criteria. Performed By: #### L 500.4050, L100.0100 ####[facility] [address] [place], [address] Potassium [Moles/Vol] 3.9 mmol/L Normal 3.5-5.1 [facility] Comment on above: Performed By: #### L 500.4050, L100.0100 ####[facility] [address] [place], [address] Sodium [Moles/Vol] 138 mmol/L Normal 136-145 [facility] Comment on above: Performed By: #### L 500.4050, L100.0100 ####[facility] [address] [place], [address] T PROT 7.6 g/dL Normal 6.4-8.2 [facility] Comment on above: Result Comment: Mode rate Icterus, Result may be falsely decreased. Performed By: #### L 500.4050, L100.0100 ####[facility] [address] [place], [address] Urea nitrogen [Mass/Vol] 13 mg/dL Normal 7-18 [facility] Comment on above: Performed By: #### L 500.4050, L100.0100 ####[facility] [address] [place], [address] Emergency Department Summary on 2024 Emergency Department Summary Normal [facility] Epithelial cells.squamous LM Ql (Urine sed)Ordered By: Rod Ross on 2024 Epithelial cells.squamous LM.HPF (Urine sed) [#/Area] 0 /[HPF] 0-5 [facility] Gallbladderon 2024 Gallbladder Normal [facility] Glucose Ql (U)Ordered By: Chase ramirez Vandana on 2024 Urine Glucose (UA) Normal mg/dl Normal [facility] H AND P Exam - Hospitaliston 2024 H&P Exam - Hospitalist Normal [facility] Hemoglobin A1con 2024 HbA1c (Bld) [Mass fraction] 4.8 % Normal 3.8-5.6 [facility] Comment on above: Result Comment: Norm al < 5.7 % Prediabetic 5.7 - 6.4 % Diabetic >or= 6.5 % Please note range changes. Performed By: #### L 501.9520, L501.9985 ####[facility] [address] [place], [place], [id number] Hemoglobin A1c percentageOrd ered By: Seth Stein on 2024 HbA1c (Bld) [Mass fraction] 4.8 % 3.8-5.6 [facility] Comment on above: Normal < 5.7 % Predi abetic 5.7 - 6.4 % Diabetic >or= 6.5 % Please note range changes. Ketones Test strip Ql (U)Ord ered By: Rod Ross on 2024 Ketones Ql (U) Negative Negative [facility] Lipaseon 2024 Lipase [Catalytic activity/Vol] 43 U/L Normal -75 [facility] Comment on above: Result Comment: Sully delaney note:LIPASE revised reference range effective 23.New Lipase methodology. Expected to produce lower valuesthan the previous assay method.NEW Reference Range: 13 - 75 U/L Performed By: #### L 501.2450 ####[facility] [address] [place], [place], [address] Lipase measurementOrdered By : Ita Cueto on 2024 Lipase [Catalytic activity/Vol] 43 U/L 13-75 [facility] Comment on above: Please note:LIPASE r evised reference range effective 23. New Lipase methodology. Expected to produce lower values than the previous assay method. NEW Reference Range: 13 - 75 U/L Lipid Profileon 2024 HDL Normal [facility] Comment on above: Result Comment: DUPL ICATE,UNABLE TO UNRECIEVEThe drugs N-Acetylcysteine and Metamizole may falselydepress this assay. Performed By: #### L 500.4100 ####[facility] [address] [facility] [address] TRIG Normal [facility] Comment on above: Result Comment: DUPL ICATE,UNABLE TO UNRECIEVEThe drugs N-Acetylcysteine and Metamizole may falselydepress this assay. Performed By: #### L 500.4100 ####[facility] [address] [place], [address] CHOL Normal 200 [facility] Comment on above: Result Comment: DUPL ICATE,UNABLE TO UNRECIEVE Performed By: #### L 500.4100 ####[facility] [address] [place], [address] LDL Normal 0-130 [facility] Comment on above: Result Comment: DUPL ICATE,UNABLE TO UNRECIEVE Performed By: #### L 500.4100 ####[facility] [address] [place], [address] VLDL Normal 5-40 [facility] Comment on above: Result Comment: DUPL ICATE,UNABLE TO UNRECIEVE Performed By: #### L 500.4100 ####[facility] [address] [place], [address] MR/CON.PCM.GIon 2024 MR/CON.PCM.GI Normal [facility] Microscopic analysis of urin e for red blood cells (RBC)Ordered By: Rod Ross on 2024 Urine RBC 0 SEEN /hpf 0-5 [facility] Mucus LM Ql (Urine sed)Order ed By: Rod Ross on 2024 Mucus Ql (Urine sed) 0 SEEN /hpf [facility] Nitrite Test strip Ql (U)Ord ered By: Rod Ross on 2024 Nitrite Ql (U) Negative Negative [facility] Protein Test strip Ql (U)Ord ered By: Rod Ross on 2024 Protein Ql (U) Negative Negative [facility] Prothrombin Time w/INRon INR Coag (PPP) [Relative time] 0.9 {INR} Normal [facility] Comment on above: Performed By: #### L 300.3900 ####[facility] [address] [place], [address] PT Coag (PPP) [Time] 11.9 s Normal 11.7-14.9 [facility] Comment on above: Performed By: #### L 300.3900 ####[facility] [address] [place], [address] TSH QnOrdered By: Seth earl on 2024 Thyroid Stimulating Hormone (TSH) 0.545 uIU/mL 0.358-3.740 [facility] Thyroid Stim Hormone (TSH)on 2024 TSH 0.545 uIU/mL Normal 0.358-3.740 [facility] Comment on above: Performed By: #### L 501.9520, L501.9985 ####[facility] [address] [place], [address] Urinalysis, Completeon 09-04 BACTERIA 1+ /hpf Normal None Seen [facility] Comment on above: Order Comment: MANOJ CTOR TO SPECIFY Performed By: #### L 400.0001 ####[facility] [address] [place], [address] BILIRUBIN URINE Negative Normal Negative [facility] Comment on above: Order Comment: MANOJ CTOR TO SPECIFY Performed By: #### L 400.0001 ####[facility] [address] [place], [address] Clarity (U) Clear Normal Clear [facility] Comment on above: Order Comment: MANOJ CTOR TO SPECIFY Performed By: #### L 400.0001 ####[facility] [address] [place], [address] Color (U) Yellow Normal Yellow [facility] Comment on above: Order Comment: MANOJ CTOR TO SPECIFY Performed By: #### L 400.0001 ####[facility] [address] [place], [address] GLUCOSE, UR Normal Normal Normal [facility] Comment on above: Order Comment: MANOJ CTOR TO SPECIFY Performed By: #### L 400.0001 ####[facility] [address] [place], [address] KETONE UR Negative Normal Negative [facility] Comment on above: Order Comment: MANOJ CTOR TO SPECIFY Performed By: #### L 400.0001 ####[facility] [address] [place], [address] LEUK ESTERASE Negative Normal Negative [facility] Comment on above: Order Comment: MANOJ CTOR TO SPECIFY Performed By: #### L 400.0001 ####[facility] [address] [place], [address] Nitrite Ql (U) Negative Normal Negative [facility] Comment on above: Order Comment: MANOJ CTOR TO SPECIFY Performed By: #### L 400.0001 ####[facility] [address] [place], [address] OCCULT BLOOD-UR Negative Normal Negative [facility] Comment on above: Order Comment: MANOJ CTOR TO SPECIFY Performed By: #### L 400.0001 ####[facility] [address] [place], [address] pH UR 6.0 Normal 5.0 - 8.0 [facility] Comment on above: Order Comment: MANOJ CTOR TO SPECIFY Performed By: #### L 400.0001 ####[facility] [address] [place], [address] PROT DIPSTX Negative Normal Negative [facility] Comment on above: Order Comment: MANOJ CTOR TO SPECIFY Performed By: #### L 400.0001 ####[facility] [address] [place], [address] SP.GR. DIPSTX 1.005 Normal 1.002-1.030 [facility] Comment on above: Order Comment: MANOJ CTOR TO SPECIFY Performed By: #### L 400.0001 ####[facility] [address] [place], [address] UROBILI Normal Normal Normal [facility] Comment on above: Order Comment: MANOJ CTOR TO SPECIFY Performed By: #### L 400.0001 ####[facility] [address] [place], [address] EPI,SQUAMOUS 0 SEEN Normal 0-5 [facility] Comment on above: Order Comment: MANOJ CTOR TO SPECIFY Performed By: #### L 400.0001 ####[facility] [address] [place], [address] Mucus Ql (Urine sed) 0 SEEN Normal [facility] Comment on above: Order Comment: MANOJ CTOR TO SPECIFY Performed By: #### L 400.0001 ####[facility] [address] [place], [address] RBC 0 SEEN Normal 0-5 [facility] Comment on above: Order Comment: MANOJ CTOR TO SPECIFY Performed By: #### L 400.0001 ####[facility] [address] [place], [address] WBC 0 SEEN Normal 0-5 [facility] Comment on above: Order Comment: MANOJ CTOR TO SPECIFY Performed By: #### L 400.0001 ####[facility] [address] [place], [address] Urine blood detectionOrdered By: Rod Ross on 2024 Urine Occult Blood Negative Negative [facility] Urine clarityOrdered By: Woo Ross on 2024 Clarity (U) Clear Clear [facility] Urine color determinationOrd ered By: Rod Ross on 2024 Color (U) Yellow Yellow [facility] Urine leukocyte esterase det ection by dipstickOrdered By: Rod Ross on 2024 Leukocyte esterase Test strip Ql (U) Negative Negative [facility] Urine pHOrdered By: Rod Ross on 2024 pH (U) 6.0 [pH] 5.0 - 8.0 [facility] Urine sediment bacteria coun t by microscopy (number/high power field)Ordered By: Rod Ross on 2024 Bacteria LM.HPF (Urine sed) [#/Area] 1 /[HPF] None Seen [facility] Urine specific gravity measu rementOrdered By: Rod Ross on 2024 Specific gravity (U) [Rel density] 1.005 1.002-1.030 [facility] Urobilinogen Ql (U)Ordered B y: Rod Ross on 2024 Urine Urobilinogen Normal mg/dl Normal [facility] White blood cell countOrdere d By: Rod Ross on 2024 Urine WBC 0 SEEN /hpf 0-5 [facility] US ABDOMEN LIMITEDon 024 US ABDOMEN LIMITED ORIGINAL EXAMINATION: LIMITED ABDOMINAL ZKPDEPZBPQ28/13/2024 8:11 am Limited ultrasound of the abdomen [...] Date: 08/12/2024 9:46:00 AM Ordering Provider: VANGIE SAPP [facility] CT PELVIS W/O CONTRASTon CT PELVIS W/O [...] 06/09/2024 12:42:25 PM Ordering Provider: CAYLA HOOPER [facility] US SCROTUM CONTENTSon 2023 US SCROTUM CONTENTS [...] 03/27/2024 3:12:22 PM Ordering Provider: SHIRA ARIAS [facility] ([place]) Vital Signs Date Time Vital Sign Value Performing Clinician Faci fredy 05-03-2025 13:45-0400 Body temperature 97.4 [degF] Shira Arias [employer] Work Phone: [facility] 05-03-2025 13:45-0400 Diastolic blood pressure 82 mm[Hg] Shira Arias [employer] SERVICE [employer]IST-C Work Phone: [facility] 05-03-2025 13:45-0400 Heart rate 64 /min Shira Arias [employer] SERVICE [employer]IST-C Work Phone: [facility] 05-03-2025 13:45-0400 Respiratory rate 16 /min Shira Arias [employer] SERVICE [employer]IST-C Work Phone: [facility] 05-03-2025 13:45-0400 SaO2% (BldA) [Mass fraction] 96 % Shira Arias [employer] SERVICE [employer]IST-C Work Phone: [facility] 05-03-2025 13:45-0400 Systolic blood pressure 97 mm[Hg] Shira Arias [employer]ER SERVICE SPECIALIST-C Work Phone: [facility] 05-03-2025 11:55-0400 Body height 177.8 cm Shira Arias [employer] SERVICE SPECIALIST-C Work Phone: [facility] 05-03-2025 11:55-0400 Body mass index (BMI) [Ratio] 30.2 kg/m2 Shira Arias [employer]ER SERVICE SPECIALIST-C Work Phone: [facility] 05-03-2025 11:55-0400 Body weight 95.7 kg Shira Arias [employer]ER SERVICE SPECIALIST-C Work Phone: [facility] 03-18-2025 18:35-0400 Body temperature 98.9 [degF] Shira Arias [employer] C[employer] SERVICE SPECIALIST-C Work Phone: [facility] 03-18-2025 18:35-0400 Diastolic blood pressure 90 mm[Hg] Shira Arias [employer] C[employer]ER SERVICE SPECIALIST-C Work Phone: [facility] 03-18-2025 18:35-0400 Heart rate 90 /min Shira Arias [employer] SERVICE SPECIALIST-C Work Phone: [facility] 03-18-2025 18:35-0400 Respiratory rate 18 /min Sihra Arias [employer] SERVICE SPECIALIST-C Work Phone: [facility] 03-18-2025 18:35-0400 SaO2% (BldA) [Mass fraction] 98 % Shira Arias [employer] C[employer]ER SERVICE SPECIALIST-C Work Phone: [facility] 03-18-2025 18:35-0400 Systolic blood pressure 123 mm[Hg] Shira Arias [employer]AIL C[employer]ER SERVICE SPECIALIST-C Work Phone: [facility] 03-18-2025 18:34-0400 Body temperature 98.9 [degF] Shira Arias [employer] C[employer]ER SERVICE SPECIALIST-C Work Phone: [facility] 03-18-2025 18:34-0400 Diastolic blood pressure 90 mm[Hg] Shira Arias [employer] C[employer]ER SERVICE SPECIALIST-C Work Phone: [facility] 03-18-2025 18:34-0400 Heart rate 95 /min Shira Arias [employer] SERVICE SPECIALIST-C Work Phone: [facility] 03-18-2025 18:34-0400 Inhaled oxygen flow rate 0 L/min Shira Arias [employer] SERVICE [employer]IST-C Work Phone: [facility] 03-18-2025 18:34-0400 Respiratory rate 18 /min Shira Arias [employer] SERVICE SPECIALIST-C Work Phone: [facility] 03-18-2025 18:34-0400 SaO2% (BldA) [Mass fraction] 98 % Shira Arias [employer] C[employer]ER SERVICE SPECIALIST-C Work Phone: [facility] 03-18-2025 18:34-0400 Systolic blood pressure 123 mm[Hg] Shira Arias [employer] C[employer] SERVICE SPECIALIST-C Work Phone: [facility] 03-17-2025 19:52-0400 Body height 177.8 cm Shira Arias [employer] C[employer]ER SERVICE SPECIALIST-C Work Phone: [facility] 03-17-2025 19:52-0400 Body mass index (BMI) [Ratio] 30.4 kg/m2 Shira Arias [employer] SERVICE [employer]IST-C Work Phone: [facility] 03-17-2025 19:52-0400 Body weight 96.3 kg Shira Juana [employer] SERVICE [employer]IST-C Work Phone: [facility] 12-31-2024 10:04-0400 Body height 177.8 cm Shira Juana [employer] C[employer]ER SERVICE SPECIALIST-C Work Phone: [facility] 12-31-2024 10:04-0400 Body mass index (BMI) [Ratio] 29.3 kg/m2 Shira Lorson [employer] SERVICE [employer]IST-C Work Phone: [facility] 12-31-2024 10:04-0400 Body temperature 97.6 [degF] Shira Lorson [employer] SERVICE SPECIALIST-C Work Phone: [facility] 12-31-2024 10:04-0400 Body weight 92.75 kg Shira Lorson [employer] SERVICE [employer]IST-C Work Phone: [facility] 12-31-2024 10:04-0400 Diastolic blood pressure 70 mm[Hg] Shira Lorson [employer] SERVICE SPECIALIST-C Work Phone: [facility] 12-31-2024 10:04-0400 Heart rate 67 /min Shira Lorson [employer] SERVICE [employer]IST-C Work Phone: [facility] 12-31-2024 10:04-0400 Respiratory rate 18 /min Shira Lorson [employer] SERVICE [employer]IST-C Work Phone: [facility] 12-31-2024 10:04-0400 Systolic blood pressure 100 mm[Hg] Shira Arias [employer] C[employer]ER SERVICE SPECIALIST-C Work Phone: [facility] 12-16-2024 14:17-0400 Body temperature 98.7 [degF] Shira Lorson RETAIL CUSTOMER SERVICE SPECIALIST-C Work Phone: [facility] 12-16-2024 14:17-0400 Diastolic blood pressure 79 mm[Hg] Shira Lorson RETAIL CUSTOMER SERVICE SPECIALIST-C Work Phone: [facility] 12-16-2024 14:17-0400 Heart rate 69 /min Shira Lorson RETAIL CUSTOMER SERVICE SPECIALIST-C Work Phone: [facility] 12-16-2024 14:17-0400 Respiratory rate 16 /min Shira Arias RETAIL CUSTOMER SERVICE SPECIALIST-C Work Phone: [facility] 12-16-2024 14:17-0400 SaO2% (BldA) [Mass fraction] 96 % Shira Arias RETAIL CUSTOMER SERVICE SPECIALIST-C Work Phone: [facility] 12-16-2024 14:17-0400 Systolic blood pressure 113 mm[Hg] Shira Arias RETAIL CUSTOMER SERVICE SPECIALIST-C Work Phone: [facility] 12-15-2024 14:00-0400 Body height 178 cm Shira Arias RETAIL CUSTOMER SERVICE SPECIALIST-C Work Phone: [facility] 12-15-2024 14:00-0400 Body mass index (BMI) [Ratio] 29.3 kg/m2 Shira Arias RETAIL CUSTOMER SERVICE SPECIALIST-C Work Phone: [facility] 12-15-2024 14:00-0400 Body weight 93 kg Shira Arias RETAIL CUSTOMER SERVICE SPECIALIST-C Work Phone: [facility] 12-14-2024 15:52-0400 Body temperature 98.2 [degF] Shira Arias RETAIL CUSTOMER SERVICE SPECIALIST-C Work Phone: [facility] 12-14-2024 15:52-0400 Diastolic blood pressure 84 mm[Hg] Shira Arias RETAIL CUSTOMER SERVICE SPECIALIST-C Work Phone: [facility] 12-14-2024 15:52-0400 Heart rate 88 /min Shira Arias RETAIL CUSTOMER SERVICE SPECIALIST-C Work Phone: [facility] 12-14-2024 15:52-0400 Respiratory rate 17 /min Shira Arias RETAIL CUSTOMER SERVICE SPECIALIST-C Work Phone: [facility] 12-14-2024 15:52-0400 SaO2% (BldA) [Mass fraction] 94 % Shira Arias RETAIL CUSTOMER SERVICE SPECIALIST-C Work Phone: [facility] 12-14-2024 15:52-0400 Systolic blood pressure 138 mm[Hg] Shira Arias RETAIL CUSTOMER SERVICE SPECIALIST-C Work Phone: [facility] 12-14-2024 10:14-0400 Body height 177.8 cm Shira Arias RETAIL CUSTOMER SERVICE SPECIALIST-C Work Phone: [facility] 12-14-2024 10:14-0400 Body mass index (BMI) [Ratio] 29.4 kg/m2 Shira Arias RETAIL CUSTOMER SERVICE SPECIALIST-C Work Phone: [facility] 12-14-2024 10:14-0400 Body weight 92.98 kg Shira Arias RETAIL CUSTOMER SERVICE SPECIALIST-C Work Phone: [facility] 12-11-2024 14:30-0400 Body temperature 97.2 [degF] Shira Arias RETAIL CUSTOMER SERVICE SPECIALIST-C Work Phone: [facility] 12-11-2024 14:30-0400 Diastolic blood pressure 83 mm[Hg] Shira Arisa RETAIL CUSTOMER SERVICE SPECIALIST-C Work Phone: [facility] 12-11-2024 14:30-0400 Heart rate 77 /min Shira Arias RETAIL CUSTOMER SERVICE SPECIALIST-C Work Phone: [facility] 12-11-2024 14:30-0400 Respiratory rate 16 /min Shira Arias RETAIL CUSTOMER SERVICE SPECIALIST-C Work Phone: [facility] 12-11-2024 14:30-0400 SaO2% (BldA) [Mass fraction] 93 % Shira Arias RETAIL CUSTOMER SERVICE SPECIALIST-C Work Phone: [facility] 12-11-2024 14:30-0400 Systolic blood pressure 100 mm[Hg] Shira Arias RETAIL CUSTOMER SERVICE SPECIALIST-C Work Phone: [facility] 12-11-2024 13:03-0400 Body height 177.8 cm Shira Arias RETAIL CUSTOMER SERVICE SPECIALIST-C Work Phone: [facility] 12-11-2024 13:03-0400 Body mass index (BMI) [Ratio] 29.7 kg/m2 Shira Arias RETAIL CUSTOMER SERVICE SPECIALIST-C Work Phone: [facility] 12-11-2024 13:03-0400 Body weight 93.8 kg Shira Arias RETAIL CUSTOMER SERVICE SPECIALIST-C Work Phone: [facility] 09-11-2024 08:02-0500 Body mass index (BMI) [Ratio] 29.1 kg/m2 Shira Arias RETAIL CUSTOMER SERVICE SPECIALIST-C Work Phone: [facility] 09-11-2024 08:02-0500 Body weight 92.07 kg Shira Arias RETAIL CUSTOMER SERVICE SPECIALIST-C Work Phone: [facility] 09-11-2024 08:02-0500 Diastolic blood pressure 84 mm[Hg] Shira Arias RETAIL CUSTOMER SERVICE SPECIALIST-C Work Phone: [facility] 09-11-2024 08:02-0500 Heart rate 72 /min Shira Arias RETAIL CUSTOMER SERVICE SPECIALIST-C Work Phone: [facility] 09-11-2024 08:02-0500 SaO2% (BldA) [Mass fraction] 98 % Shira Arias RETAIL CUSTOMER SERVICE SPECIALIST-C Work Phone: [facility] 09-11-2024 08:02-0500 Systolic blood pressure 123 mm[Hg] Shira Arias RETAIL CUSTOMER SERVICE SPECIALIST-C Work Phone: [facility] 09-07-2024 08:00-0500 Body temperature 97.7 [degF] Shira Arias RETAIL CUSTOMER SERVICE SPECIALIST-C Work Phone: [facility] 09-07-2024 08:00-0500 Diastolic blood pressure 72 mm[Hg] Shira Arias RETAIL CUSTOMER SERVICE SPECIALIST-C Work Phone: [facility] 09-07-2024 08:00-0500 Heart rate 70 /min Shira Arias RETAIL CUSTOMER SERVICE SPECIALIST-C Work Phone: [facility] 09-07-2024 08:00-0500 Respiratory rate 18 /min Shira Arias RETAIL CUSTOMER SERVICE SPECIALIST-C Work Phone: [facility] 09-07-2024 08:00-0500 SaO2% (BldA) [Mass fraction] 99 % Shira Arias RETAIL CUSTOMER SERVICE SPECIALIST-C Work Phone: [facility] 09-07-2024 08:00-0500 Systolic blood pressure 114 mm[Hg] Shira Arias RETAIL CUSTOMER SERVICE SPECIALIST-C Work Phone: [facility] 09-06-2024 06:00-0500 Body mass index (BMI) [Ratio] 29.2 kg/m2 Shira Arias RETAIL CUSTOMER SERVICE SPECIALIST-C Work Phone: [facility] 09-06-2024 06:00-0500 Body weight 92.6 kg Shira Arias RETAIL CUSTOMER SERVICE SPECIALIST-C Work Phone: [facility] Encounters Encounter Date Encounter Type Care Provider Facility Start: 05-03-2025 Non-patient / Non-visit Denys Babin DO -[facility] Start: 05-03-2025 End: 05-03-2025 Admission to same day surgery center Denys Babin DO -Endoscopy Work Phone: Start: 05-03-2025 End: 05-03-2025 ambulatory Shira Arias NP Facility:[facility] Start: 04-07-2025 End: 04-07-2025 Patient encounter procedure Bing Temple PA-C -[facility] Work Phone: Start: 04-07-2025 End: 04-07-2025 ambulatory Shira Arais RETAIL CUSTOMER SERVICE SPECIALIST-C Work Phone: -[facility] Start: 03-31-2025 End: 03-31-2025 Patient encounter procedure Bing Temple PA-C -[facility] Work Phone: Start: 03-31-2025 End: 03-31-2025 ambulatory Shira Arias NP-C Work Phone: -[facility] Start: 03-30-2025 End: 03-30-2025 ambulatory Shira Arias NP-C Work Phone: -[facility] Start: 03-30-2025 End: 03-30-2025 Patient encounter procedure Bing Temple PA-C -[facility] Work Phone: Start: 03-30-2025 End: 03-30-2025 ambulatory Bing YOUNG Facility:[facility] Start: 03-25-2025 End: 03-25-2025 Patient encounter procedure Bing Temple PA-C -[facility] Work Phone: Start: 03-25-2025 End: 03-25-2025 ambulatory Shira Arias NP-C Work Phone: [facility] Work Phone: Start: 03-22-2025 ambulatory Shira Arias NP Facil ity:[facility] Start: 03-18-2025 Non-patient / Non-visit Dr. Camron Shoemaker MD -[facility] Start: 03-17-2025 ambulatory Shira Arias NP Facil ity:[facility] Start: 03-17-2025 End: 03-18-2025 Evaluation and management of inpatient Dr. Camron Shoemaker MD -[facility] Surgical 3 Work Phone: Start: 03-17-2025 ambulatory Shira Arias NP Facil ity:[facility] Start: 03-17-2025 Non-patient / Non-visit Dr. Camron Shoemaker MD -[facility] Start: 03-08-2025 End: 03-08-2025 ambulatory Camron Redd Facility:[facility] Start: 03-08-2025 End: 03-08-2025 Non-patient / Non-visit Dr. Camron Redd MD -[facility] Work Phone: Start: 02-24-2025 End: 02-24-2025 ambulatory Shira Arias NP-C Work Phone: [facility] Work Phone: Start: 02-24-2025 End: 02-24-2025 Patient encounter procedure Michela Sal NP-C -N[facility] Work Phone: Start: 02-24-2025 End: 02-24-2025 ambulatory Shira Arias NP Facility:[facility] Start: 02-02-2025 ambulatory MICHELA ACUNA ADULT LITERACY TEACHER-RUBBER CUTTING MACHINE TENDER Facility:[facility] Start: 01-05-2025 Registered Referred Michela roe NP-C -Laboratory Specimen Work Phone: Start: 01-05-2025 ambulatory Shira Arias NP Facil ity:[facility] Start: 12-31-2024 End: 12-31-2024 ambulatory Shira Arias RETAIL CUSTOMER SERVICE SPECIALIST-C Work Phone: [facility] Work Phone: Start: 12-31-2024 End: 12-31-2024 Patient encounter procedure Cayla Quiñonez RETAIL CUSTOMER SERVICE SPECIALIST-C -Laboratory Work Phone: Start: 12-31-2024 End: 12-31-2024 Patient encounter procedure Cayla Quiñonez RETAIL CUSTOMER SERVICE SPECIALIST-C -[facility] Work Phone: Start: 12-31-2024 End: 12-31-2024 ambulatory Shira Arias RETAIL CUSTOMER SERVICE SPECIALIST Facility:[facility] Start: 12-31-2024 End: 12-31-[address] Camron Shoemaker MD -[facility] Work Phone: Start: 12-31-2024 End: 12-31-2024 ambulatory Shira Arias RETAIL CUSTOMER SERVICE SPECIALIST Facility:[facility] Start: 12-31-2024 End: 12-31-2024 ambulatory Shira Arias RETAIL CUSTOMER SERVICE SPECIALIST Facility:[facility] Start: 12-16-2024 Non-patient / Non-visit Dr. Francesco Lui MD -[facility] Work Phone: Start: 12-16-2024 Non-patient / Non-visit Dr. Camron Shoemaker MD -[facility] Start: 12-15-2024 Non-patient / Non-visit [facility] Start: 12-15-2024 Non-patient / Non-visit Dr. Francesco Lui MD -[facility] Work Phone: Start: 12-14-2024 ambulatory Cruz Arciniega Fac ility:[facility] Start: 12-14-2024 End: 12-16-2024 Evaluation and management of inpatient Dr. Cruz Arciniega DO -Progressive Care Unit Work Phone: Start: 12-11-2024 End: 12-11-2024 Admission to same day surgery center Denys Babin DO -Endoscopy Work Phone: Start: 12-11-2024 End: 12-11-2024 ambulatory Shira Arias RETAIL CUSTOMER SERVICE SPECIALIST-C Work Phone: [facility] Work Phone: Start: 12-11-2024 End: 12-11-2024 Non-patient / Non-visit Denys Friend DO -[facility] Start: 09-11-2024 End: 09-11-[address] Francesco Lui MD -[facility] Work Phone: Start: 09-11-2024 End: 09-11-2024 ambulatory Shira Arias RETAIL CUSTOMER SERVICE SPECIALIST Facility:[facility] Start: 09-11-2024 End: 09-11-2024 ambulatory Francesco Lui Facility:[facility] Start: 09-07-2024 Non-patient / Non-visit Dr. Edwina Kimball DO -[facility] Work Phone: Start: 09-07-2024 Non-patient / Non-visit Denyskelly Babin DO -[facility] Start: 09-06-2024 Non-patient / Non-visit Dr. Cruz Arciniega DO [facility] Work Phone: Start: 09-05-2024 End: 09-05-2024 ambulatory Denys Friend Facility:[facility] Start: 09-05-2024 End: 09-05-2024 Non-patient / Non-visit Denys Friend DO -[facility] Start: 2024 Non-patient / Non-visit Denys Friend DO -[facility] Start: 2024 ambulatory Denys Friend Facility :[facility] Start: 2024 End: 09-07-2024 Evaluation and management of inpatient Dr. Edwina Kimball DO -[facility] Surgical 3 Work Phone: Start: 08-12-2024 End: 08-12-2024 ambulatory SHIRA ARIAS ADULT LITERACY TEACHER-RUBBER CUTTING MACHINE TENDER Facility:[facility] Start: 08-12-2024 End: 08-12-2024 Patient encounter procedure CAYLA HOOPER ADULT LITERACY TEACHER-RUBBER CUTTING MACHINE TENDER [facility] Start: 08-06-2024 ambulatory VANGIE SUTTONKelly Porsche ADULT LITERACY TEACHER-RUBBER CUTTING MACHINE TENDER Facility:[facility] Start: 06-11-2024 End: 06-11-2024 ambulatory CAYLA Griffiths SANDIE ADULT LITERACY TEACHER-RUBBER CUTTING MACHINE TENDER Facility:[facility] Start: 06-11-2024 End: 06-11-2024 Patient encounter procedure CAYLA Griffiths SANDIE ADULT LITERACY TEACHER-RUBBER CUTTING MACHINE TENDER [facility] Start: 06-09-2024 End: 06-09-2024 ambulatory CAYLA Griffiths SANDIE ADULT LITERACY TEACHER-RUBBER CUTTING MACHINE TENDER Facility:[facility] Start: 06-09-2024 End: 06-09-2024 Patient encounter procedure CAYLA Griffiths SANDIE ADULT LITERACY TEACHER-RUBBER CUTTING MACHINE TENDER [facility] Start: 05-27-2024 ambulatory CAYLA Griffiths CYNTHIA NELSON ADULT LITERACY TEACHER-RUBBER CUTTING MACHINE TENDER Facility:[facility] Start: 05-14-2024 End: 05-14-2024 ambulatory CAYLA Griffiths SANDIE ADULT LITERACY TEACHER-RUBBER CUTTING MACHINE TENDER Facility:[facility] Start: 03-27-2024 End: 03-27-2024 ambulatory SHIRA ARIAS ADULT LITERACY TEACHER-RUBBER CUTTING MACHINE TENDER Facility:[facility] Start: 03-27-2024 End: 03-27-2024 Patient encounter procedure SHIRA ARIAS ADULT LITERACY TEACHER-RUBBER CUTTING MACHINE TENDER [facility] Procedures Date Procedure Procedure Detail Performing Clinician Start: 05-03-2025 Fluoroscopic guidance Shira Arias RETAIL CUSTOMER SERVICE SPECIALIST-C Work Phone: Start: 05-03-2025 Endoscopic retrograde cholangiopancreatography Shira Arias RETAIL CUSTOMER SERVICE SPECIALIST-C Work Phone: Start: 03-30-2025 Radionuclide study of abdomen Shira lemons RETAIL CUSTOMER SERVICE SPECIALIST-C Work Phone: Start: 03-18-2025 Estimated creatinine clearance Shira russo RETAIL CUSTOMER SERVICE SPECIALIST-C Work Phone: Start: 03-17-2025 Total cholecystectomy and exploration of common bile duct Shira Arias RETAIL CUSTOMER SERVICE SPECIALIST-C Work Phone: Start: 02-24-2025 Radionuclide study of abdomen Shira Ho cristo RETAIL CUSTOMER SERVICE SPECIALIST-C Work Phone: Start: 01-05-2025 Fibrinogen assay, quantitative Shira russo RETAIL CUSTOMER SERVICE SPECIALIST-C Work Phone: Start: 01-05-2025 Homocysteine measurement Shira Arias RETAIL CUSTOMER SERVICE SPECIALIST-C Work Phone: Comment on above: Performed at: [address] [id number] Director: Raj Dick PhD, Phone: [phone] Start: 12-16-2024 Estimated creatinine clearance Shira cuellaron RETAIL CUSTOMER SERVICE SPECIALIST-C Work Phone: Start: 12-15-2024 End: 12-15-2024 Endoscopic retrograde cholangiopancreatography Shira Cisnerosnirav RETAIL CUSTOMER SERVICE SPECIALIST-C Work Phone: Start: 12-15-2024 Fluoroscopic guidance Shira Juana RETAIL CUSTOMER SERVICE SPECIALIST-C Work Phone: Start: 12-14-2024 Blood culture Shira Arias RETAIL CUSTOMER SERVICE SPECIALIST-C Work Phone: Start: 12-14-2024 SARS-CoV-2, Influenza & RSV (PCR) Shira Arias RETAIL CUSTOMER SERVICE SPECIALIST-C Work Phone: Start: 12-14-2024 Urnls dip stick/tablet reagent auto microscopy Shira Juana RETAIL CUSTOMER SERVICE SPECIALIST-C Work Phone: Start: 12-14-2024 X-ray of chest, PA and lateral views Shira Arias RETAIL CUSTOMER SERVICE SPECIALIST-C Work Phone: Start: 12-14-2024 Computed tomography of abdomen and pelvis with intravenous contrast Shira Juana RETAIL CUSTOMER SERVICE SPECIALIST-C Work Phone: Start: 12-11-2024 End: 12-11-2024 Endoscopic retrograde cholangiopancreatography Shira Cisnerosnirav RETAIL CUSTOMER SERVICE SPECIALIST-C Work Phone: Start: 12-11-2024 Fluoroscopic guidance Shira Arias RETAIL CUSTOMER SERVICE SPECIALIST-C Work Phone: Start: 09-06-2024 Magnetic resonance cholangiopancreatography Shira Juana SHEIKH Work Phone: Start: 09-05-2024 Endoscopic retrograde cholangiopancreatography Shira Juana [facility] Work Phone: Start: 09-05-2024 Fluoroscopic guidance Shira Juana [facility] Work Phone: Start: 09-05-2024 Endoscopic retrograde cholangiopancreatography Shira Juana [facility] Work Phone: Start: 2024 Computed tomography of abdomen and pelvis with intravenous contrast Shira Juana CALLOWAY-C Work Phone: Start: 2024 US scan of gallbladder Shira [facility] Work Phone: History of cholecystectomy Statu s post laparoscopic cholecystectomy Shira Arias NP-C Work Phone: History of cholecystectomy Statu s post laparoscopic cholecystectomy Dr. Camron Shoemaker MD History of cholecystectomy Statu s post laparoscopic cholecystectomy Bing Temple PA-C History of cholecystectomy Statu s post laparoscopic cholecystectomy Bing Temple PA-C History of cholecystectomy Statu s post laparoscopic cholecystectomy Bing Temple PA-C Plan of Treatment Date Care Activity Detail Author Start: 05-03-2025 Endoscopic retrograde cholangiopancreatography ERCP Biliary/Pancreas [facility] Start: 05-03-2025 RF Guidance for endoscopy of Biliary ducts and Pancreatic duct-- W contrast retrograde [facility] Start: 05-03-2025 Electrocardiographic procedure [facility] Start: 05-03-2025 Patient discharge [facility] Start: 03-18-2025 Patient discharge [facility] Start: 03-18-2025 [facility] Start: 03-17-2025 Application of intermittent pneumatic compression device [facility] Start: 03-17-2025 Following clinical pathway protocol [facility] Start: 03-17-2025 Application of ice collar, cap or bag [facility] Start: 03-17-2025 Measuring intake and output [facility] Start: 03-17-2025 Admission procedure [facility] Start: 12-16-2024 Patient discharge [facility] Start: 12-16-2024 Referral to general surgeon [facility] Start: 12-16-2024 Consultation [facility] Start: 12-16-2024 Gamma glutamyl transferase measurement [facility] Start: 12-15-2024 Following clinical pathway protocol [facility] Start: 12-15-2024 Complete blood count [facility] Start: 12-14-2024 Ambulation without limitation [facility] Start: 12-14-2024 Assessment of risk of venous thromboembolism [facility] Start: 12-14-2024 Incentive spirometry [facility] Start: 12-14-2024 Insertion of catheter into peripheral vein [facility] Start: 12-14-2024 Oxygen therapy [facility] Start: 12-14-2024 Providing care according to standard [facility] Start: 12-14-2024 Referral to gastroenterology service [facility] Start: 12-14-2024 [facility] Start: 12-14-2024 Verification routine [facility] Start: 12-14-2024 Admission procedure [facility] Start: 12-14-2024 Bacteria identified in Blood by Culture Blood Culture [facility] Start: 12-14-2024 Blood culture Blood Culture [facility] Start: 12-14-2024 [facility] Start: 12-11-2024 Ercp remove calculi/debris biliary/pancreas duct ERCP REMOVE DUCT CALCULI [facility] Start: 12-11-2024 Ercp remove foreign body/stent biliary/panc duct ERCP REMOVE FORGN BODY DUCT [facility] Start: 12-11-2024 Ercp w/sphincterotomy/papillotomy ENDO CHOLANGIOPANCREATOGRAPH [facility] Start: 12-11-2024 Patient discharge [facility] Start: 09-07-2024 Patient discharge [facility] Start: 09-07-2024 Catheterization of vein [facility] Start: 09-07-2024 Oxygen therapy [facility] Start: 09-07-2024 Vital signs measurements [facility] Start: 2024 Application of intermittent pneumatic compression device [facility] Start: 2024 Ambulation without limitation [facility] Start: 2024 Assessment of risk of venous thromboembolism [facility] Start: 2024 Documentation procedure [facility] Start: 2024 Insertion of catheter into peripheral vein [facility] Start: 2024 Measuring intake and output [facility] Start: 2024 Providing care according to standard [facility] Start: 2024 Referral to gastroenterology service [facility] Start: 2024 Referral to service [facility] Start: 2024 [facility] Start: 2024 Following clinical pathway protocol [facility] Start: 2024 Admission procedure [facility] Alanine aminotransfe rase [Enzymatic activity/volume] in Serum or Plasma [facility] Albumin [Mass/volume ] in Serum or Plasma [facility] Alkaline phosphatase [Enzymatic activity/volume] in Serum or Plasma [facility] Anion gap in Serum or Plasma [facility] Bilirubin, total measurement [facility] BUN/Creatinine ratio [facility] Calcium [Mass/volume ] in Serum or Plasma [facility] Carbon dioxide, tota l [Moles/volume] in Central venous blood [facility] Carcinoembryonic Ag [Mass/volume] in Serum or Plasma [facility] Creatinine [Mass/vol ume] in Serum or Plasma [facility] CT Abdomen and Pelvi s WO and W contrast IV [facility] Erythrocyte mean cor puscular volume determination [facility] Glucose [Mass/volume ] in Serum or Plasma [facility] Hematocrit [Volume F raction] of Blood [facility] Hemoglobin [Mass/vol ume] in Blood [facility] Hepatic function panel [facility] Leukocytes [#/volume] in Blood [facility] Mean corpuscular hem oglobin concentration determination [facility] Mean corpuscular hem oglobin determination [facility] Measurement of renal function [facility] Patient referral [facility] Work Phone: Platelets [#/volume] in Blood [facility] Potassium measurement [facility] Radionuclide study of abdomen [facility] Red blood cell count [facility] Red cell distributio n width determination [facility] Serum chloride measurement [facility] Sodium measurement [facility] Total protein measurement [facility] Urea nitrogen [Mass/ volume] in Serum or Plasma [facility] Payers Date Payer Category Payer Unknown [id number] 2024 Self-pay 1985 Unknown [id number] 2.16.8 40.1.167050.3.579.2.627 1985 Unknown [id number] 2.16.8 40.1.765072.3.579.2.627 1983 Unknown [id number] 2.16.8 40.1.356637.3.579.2.627 1983 Unknown [id number] 2.16.8 40.1.460354.3.579.2.627 1983 Unknown [id number] 2.16.8 40.1.365589.3.579.2.627 1983 Unknown [id number] 2.16.8 40.1.509054.3.579.2.627 1983 Unknown [id number] 2.16.8 40.1.967427.3.579.2.627 1983 Unknown [id number] 2.16.8 40.1.312084.3.579.2.627 1983 Unknown [id number] 2.16.8 40.1.844708.3.579.2.627 Unknown [id number] 2.16.8 40.1.571680.3.579.2.462 Unknown [id number] 2.16.8 40.1.872528.3.579.2.462 Unknown [id number] 2.16.8 40.1.549732.3.579.2.462 Unknown [id number] 2.16.8 40.1.845483.3.579.2.462 Unknown [id number] 2.16.8 40.1.727185.3.579.2.462 Unknown [id number] 2.16.8 40.1.063376.3.579.2.462 Unknown [id number] 2.16.8 40.1.308338.3.579.2.462 Unknown [id number] 2.16.8 40.1.982785.3.579.2.462 Unknown [id number] 2.16.8 40.1.115949.3.579.2.462 Unknown [id number] 2.16.8 40.1.557744.3.579.2.462 Unknown [id number] 2.16.8 40.1.311742.3.579.2.462 Unknown [id number] 2.16.8 40.1.515426.3.579.2.462 Unknown [id number] 2.16.8 40.1.197448.3.579.2.462 Unknown [id number] 2.16.8 40.1.232253.3.579.2.462 Unknown [id number] 2.16.8 40.1.026989.3.579.2.462 Unknown [id number] 2.16.8 40.1.662011.3.579.2.462 Unknown [id number] 2.16.8 40.1.560946.3.579.2.462 Unknown [id number] 2.16.8 40.1.571240.3.579.2.462 Unknown [id number] 2.16.8 40.1.494869.3.579.2.462 Unknown [id number] 2.16.8 40.1.361785.3.579.2.462 Unknown [id number] 2.16.8 40.1.817344.3.579.2.462 Unknown [id number] 2.16.8 40.1.993466.3.579.2.462 Unknown [id number] 2.16.8 40.1.194214.3.579.2.462 Unknown [id number] 2.16.8 40.1.726585.3.579.2.462 Unknown [id number] 2.16.8 40.1.721978.3.579.2.462 Unknown [id number] 2.16.8 40.1.514213.3.579.2.462 Unknown [id number] 2.16.8 40.1.510026.3.579.2.462 Unknown [id number] 2.16.8 40.1.777717.3.579.2.462 Unknown [id number] 2.16.8 40.1.443807.3.579.2.462 Unknown [id number] 2.16.8 40.1.922207.3.579.2.462 Unknown [id number] 2.16.8 40.1.030545.3.579.2.462 Unknown [id number] 2.16.8 40.1.173171.3.579.2.462 Unknown [id number] 2.16.8 40.1.150503.3.579.2.462 Unknown [id number] 2.16.8 40.1.365840.3.579.2.462 Unknown [id number] 2.16.8 40.1.158489.3.579.2.462 Unknown [id number] 2.16.8 40.1.715624.3.579.2.462 Social History Date Type Detail Facility Start: 01-29-2024 End: 04-27-2025 Tobacco smoking status Never smoked tobacco (finding) [facility] Start: 1985 Sex Assigned At Male A [facility] Start: 12-11-2024 End: 01-05-2025 Sex Male (finding) [facility] Medical Equipment Procedure Code Equipment Code Equipment Origin al Text Equipment Identifier Dates Total cholecystectomy with exploration of common bile duct EAR NOSE AND THROAT SPECIALIST,CLIP 5MM LIGAMAX FDA Start: 03-17-2025 Total cholecystectomy with exploration of common bile duct CLIP,HEMOLOCK MED VAL FDA Start: 03-17-2025 Total cholecystectomy with exploration of common bile duct CLIP,HEMOLOCK MED WEROBERT FDA Start: 03-17-2025 Total cholecystectomy with exploration of common bile duct Plant polysaccharide haemostatic agent, bioabsorbable ()[id number] FDA Start: 03-17-2025 Total cholecystectomy with exploration of common bile duct EAR NOSE AND THROAT SPECIALIST,CLIP 5MM LIGAMAX FDA Start: 03-17-2025 Total cholecystectomy with exploration of common bile duct CLIP,HEMOLOCK ISRAEL WECK FDA Start: 03-17-2025 Total cholecystectomy with exploration of common bile duct CLIP,HEMOLOCK MED WECK FDA Start: 03-17-2025 Total cholecystectomy with exploration of common bile duct EAR NOSE AND THROAT SPECIALIST,CLIP 5MM LIGAMAX FDA Start: 03-17-2025 Total cholecystectomy with exploration of common bile duct CLIP,HEMOLOCK ISRAEL WECK FDA Start: 03-17-2025 Total cholecystectomy with exploration of common bile duct CLIP,HEMOLOCK MED WECK FDA Start: 03-17-2025 Total cholecystectomy with exploration of common bile duct EAR NOSE AND THROAT SPECIALIST,CLIP 5MM LIGAMAX FDA Start: 03-17-2025 Total cholecystectomy with exploration of common bile duct CLIP,HEMOLOROBERT WOOD WECK FDA Start: 03-17-2025 Total cholecystectomy with exploration of common bile duct CLIP,HEMOLOCK ISRAEL WECK FDA Start: 03-17-2025 Total cholecystectomy with exploration of common bile duct EAR NOSE AND THROAT SPECIALIST,CLIP 5MM LIGAMAX FDA Start: 03-17-2025 Total cholecystectomy with exploration of common bile duct CLIP,HEMOLOCK ISRAEL WECK FDA Start: 03-17-2025 Total cholecystectomy with exploration of common bile duct CLIP,HEMOLOCK ISRAEL WECK FDA Start: 03-17-2025 Total cholecystectomy with exploration of common bile duct EAR NOSE AND THROAT SPECIALIST,CLIP 5MM LIGAMAX FDA Start: 03-17-2025 Total cholecystectomy with exploration of common bile duct CLIP,HEMOLOCK ISRAEL WECK FDA Start: 03-17-2025 Total cholecystectomy with exploration of common bile duct CLIP,HEMOLOCK MED WECK FDA Start: 03-17-2025 ERCP (endoscopic retrograde cholangiopancreatograp hy) Polymeric biliary stent, non-bioabsorbable ()[id number] FDA Start: 09-05-2024 ERCP (endoscopic retrograde cholangiopancreatograp hy) Polymeric biliary stent, non-bioabsorbable ()[id number] FDA Start: 09-05-2024 ERCP (endoscopic retrograde cholangiopancreatograp hy) ([id number]) Polymeric biliary stent, non-bioabsorbable ()[id number] FDA Start: 09-05-2024 ERCP (endoscopic retrograde cholangiopancreatograp hy) STENT,RX PLASTIC BILIARY 10X7 FDA Start: 12-15-2024 ERCP (endoscopic retrograde cholangiopancreatograp hy) STENT,RX PLASTIC BILIARY 10X7 FDA Start: 12-15-2024 ERCP (endoscopic retrograde cholangiopancreatograp hy) STENT,RX PLASTIC BILIARY 10X7 FDA Start: 12-15-2024 ERCP (endoscopic retrograde cholangiopancreatograp hy) STENT,RX PLASTIC BILIARY 10X7 FDA Start: 12-15-2024 ERCP (endoscopic retrograde cholangiopancreatograp hy) STENT,RX PLASTIC BILIARY 10X7 FDA Start: 12-15-2024 ERCP (endoscopic retrograde cholangiopancreatograp hy) STENT,RX PLASTIC BILIARY 10X7 FDA Start: 12-15-2024 ERCP (endoscopic retrograde cholangiopancreatograp hy) STENT,RX PLASTIC BILIARY 10X7 FDA Start: 12-15-2024 ERCP (endoscopic retrograde cholangiopancreatograp hy) STENT,RX PLASTIC BILIARY 10X7 FDA Start: 12-15-2024 ERCP (endoscopic retrograde cholangiopancreatograp hy) STENT,RX PLASTIC BILIARY 10X7 FDA Start: 12-15-2024 Goals Date Patient Goal Desired Activity /State Functional Status Date Assessment Result Facility 03-18-2025 Functional status Bathroom Privilege [facility] Work Phone: 12-16-2024 Functional status Ambulates [facility] Work Phone: 09-07-2024 Functional status Up ad jaimee [facility] Work Phone: Mental Status Date Assessment Result Facility 05-03-2025 Cognitive function Voice/Name [facility] Work Phone: 03-18-2025 Cognitive function Voice/Name [facility] Work Phone: 12-16-2024 Cognitive function Voice/Name [facility] Work Phone: 12-14-2024 Cognitive function Level Of Cons ciousness Awake;Alert;Appropriate;Follow s Commands [facility] Work Phone: 12-11-2024 Cognitive function Touch/Shaking [facility] Work Phone: 09-07-2024 Cognitive function Voice/Name [facility] Work Phone: Clinical Notes 01-29-2024 to 05-03-2025 Note Date & Type Note Facility 05-03-2025 Consult note [facility] 05-03-2025 Consult note Note Date/Time May 03, 2025 11:43am [facility] Medical Records Department [address] [place] [address] Pre-Anesthesia Evaluation 05/03/25 1142 MR#: [id number] Acct: [id number] Name: DIANE CONNORS Rep #:[id number] : 1985 39 From: Rafael Hooper MD PCP: AGUILAR Giles Status:REG S DC Y Race: C Location: [place] [address] ASA Classification* ASA Classification ASA Classification: 2 [...] anesthesia risk assessments. Anesthesia Type Anesthesia Type: MAC Anesthesia Focused Assessment* Airway Assessment Mouth opens: >3 cm Mallampati Score: II Labs Anesthesia Preop lab: CBC WBC 9.2 K/mm3 (4.4-11.0) 03/18/25 06:03/18/25 RBC 5.04 M/mm3 (4.6-6.2) 03/18/25 06:03/18/25 Hgb 14.8 g/dL (13.0-16.5) 03/18/25 06:27 03/18/25 Hct 43.6 % (40-54) 03/18/25 06:27 03/18/25 Plt Count 264 K/mm3 (150-450) 03/18/25 06:27 03/18/25 CHEMISTRY Potassium 4.0 mmol/L (3.3-5.1) 03/18/25 06:27 03/18/25 Sodium 139 mmol/L (133-145) 03/18/25 06:27 03/18/25 Magnesium 2.1 mg/dL (1.6-2.6) 09/06/24 07:15 09/06/24 Phosphorus 3.2 mg/dL (2.5-4.9) 09/06/24 07:15 09/06/24 BUN 12 mg/dL (4-19) 03/18/25 06:27 03/18/25 Creatinine 1.00 mg/dL (0.70-1.20) 03/18/25 06:27 03/18/25 Glucose 114 mg/dL (70-99) H 03/18/25 06:27 03/18/25 TSH 0.918 uIU/mL (0.358-3.740) 09/11/24 08:48 08/30 12/21 COAG PT 12.3 SECONDS (11.7-14.9) 09/11/24 08:48 Pre-Assessment Diagnosis/Proposed Procedure Planned Operative Procedure(s): ERCP with stent pull. 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 When Was Last Pacemaker Check QUESTION #4 FULL TEXT: You/Your Family Experience fever (hyperthermia) with Anesthesia Last Oral Intake Last Oral intake: Last Oral Intake NPO since Meds taken in AM with sips of water? 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 Female No 04/27/25 15:02 HX of Motion Sickness No 04/27/25 15:02 HX of N/V After Surgery No 04/27/25 15:02 Non-Smoker Yes 04/27/25 15:02 Duration of Surgery greater Yes 04/27/25 15:02 than 60 minutes Number of Risk Factors 2 04/27/25 15:02 PONV Score Moderate Risk 04/27/25 15:02 Height & Weight Height & Weight: Anesthesia: Height & Weight Height 5 ft 10 in 03/17/25 19:52 Respiratory Assessment Respiratory Assessment - microbiology teacher: Respiratory Tract Infection Hx - microbiology teacher Hx Respiratory Tract Infection No 04/27/25 15:02 STOP Sleep Apnea STOP Sleep Apnea - microbiology teacher: STOP Sleep Apnea - microbiology teacher Hx Hypertension No 04/27/25 15:02 Hx Sleep Apnea No 04/27/25 15:02 CPAP BIPAP Do you snore loudly (louder No 04/27/25 15:02 than talking or can be heard Do you often feel tired/ No 04/27/25 15:02 fatigued/ sleepy during daytime? Has anyone observed you stop No 04/27/25 15:02 breathing during sleep? STOP Results Negative 04/27/25 15:02 QUESTION #5 FULL TEXT : Do you snore loudly (louder than talking or can be heard through closed doors)? 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 Specify any problems Hx of Preganancy in last 3 N/A 04/27/25 15:02 Months Nurse Filling Out Transfusion VCHRISTIN 04/27/25 15:02 & Questions: Date: 04/27/25 04/27/25 15:02 Time: 15:03 04/27/25 15:02 Patient unable to answer at this time (ie. confused, unrespo /Reproduction History /Reproductive History - microbiology teacher: /Reproductive Hx- microbiology teacher Hx Now No 04/27/25 15:02 Gestational Age (in weeks): EDC: Hx Hx Para Hx Section SAB No 04/27/25 15:02 Active Medications Active Medications: Current Medications Generic Name Dose Route Start Last Admin Trade Name Freq PRN Reason Stop Dose Admin Lactated Ringer's 1,000 mls @ 15 mls/hr 05/03/25 11:45 IV .Q48H RICARDO PFSH Medical History Bacteremia due to Gram-negative bacteria Drug-induced liver injury Jaundice History of biliary stent insertion Elevation of levels of liver transaminase levels Hyperbilirubinemia Overweight (BMI 25.0-29.9) No pertinent past medical history Home Medications ?Medication ?Instructions ?Recorded ?Last Taken ?Type NK 04/07/25 Unknown History Allergy/AdvReac Type Severity Reaction Status Date / Time No Known Allergies Allergy Verified 04/27/25 14:59 Surgical History Hx laparoscopic cholecystectomy History of ERCP Social History Smoking Status: Never smoker alcohol intake: never Review of Systems (Anesthesia) ROS Narrative System reviewed and no additional complaints, except as documented. 05/03/25 1143 <Electronically signed by Rafael Hooper MD > Date _ Rafael Hooper MD Cosigner Signature: Date CC: ~ Signed [facility] Work Phone: 1(725) 159-972308-04-2025 Consult note [facility] Medical Records Department [address] [place] [address] Anesthesia Postop Eval I 05/03/25 1341 MR#: [id number] Acct: [id number] Name: DIANE CONNORS Rep #:[id number] : 1985 39 From: Hipolito Rasheed PCP: ROLY GilesC Status:REG S DC Y Race: C Location: [place] [address] Anesthesia: Postop Eval I Current Vital Signs Temperature: 97.2 F Pulse Rate: 70 Blood Pressure: 104/84 Respiratory Rate: 16 Pulse Ox: 99 Oxygen Delivery Method: Room Air Assessment Airway patent: Yes Spontaneous unlabored respirations: Yes Mental status: Awake and Calm nausea: No Vomiting: No Anesthesia Complication: No Fluid Hydration Crystalloid volume administer (ml): 600 Total IV fluid infused: 600 Progress Note Anesthesia document: Postop Eval 1 completed: Yes 05/03/25 1342 > Date _ Hipolito Marrero Signature: Date CC: ~ Signed [facility]08-04-2025 Procedure note [facility] Medical Records Department [address] [place] [address] ERCP Report MR#: [id number] Acct: [id number] Name: DIANE CONNORS Rep #:[id number] : 1985 39 From: Denys Babin DO PCP: AGUILAR Giles Status:REG S DC Patient Name: Diane Connors Procedure Date: 05/03/2025 12:46 PM Date of : 1985 Age: 39 Procedure: ERCP Indications: Biliary stent removal Providers: Denys Babin DO Referring MD: Shira Lorson Medicines: Monitored Anesthesia Care Patient Profile: This is a 39 year old male. Refer to note in patient chart for documentation of history and physical. Patient has symptoms. He is status post laparoscopic cholecystectomy within the past three months. His most recent ERCP for stent and ERCP for stone removal was within the past six months. Complications: No immediate complications. Procedure: Pre-Anesthesia Assessment: [...] patient has taken no anticoagulant or antiplatelet agents except for NSAID medication. ASA Grade Assessment: II - A patient [...] patient tolerated the procedure well. Scope In: 1:09:38 PM Scope Out: 1:22:14 PM Total Procedure Duration Time 0 hours 12 minutes 36 seconds Findings: The physics faculty member film was normal. A biliary stent was visible on the physics faculty member film. The esophagus was successfully intubated under direct [...] I personally interpreted the bile duct images. Ductal flow of contrast was adequate. Image quality was adequate. Contrast extended to the entire biliary tree. Opacification of the entire biliary tree except for the cystic duct and gallbladder and entire biliary tree was successful. The maximum diameter of the ducts was 10 mm. The middle third of the main bile duct contained a single localized stenosis 6 mm in length. The left and right hepatic ducts and all intrahepatic branches were markedly dilated, acquired. A cholecystectomy had been performed. A 5 mm biliary sphincterotomy was made with a traction (standard) sphincterotome using ERBE electrocautery. There was no post-sphincterotomy bleeding. The biliary tree was swept with a 12 mm balloon starting at the left intrahepatic duct(s). Sludge was swept from the duct. All stones were removed. One stent was removed from the biliary tree using a snare and sent for cytology. The stent was found to be partially occluded via the water column test. Cells for cytology were obtained by brushing in the middle third of the main bile duct. Impression: - A single localized biliary stricture was found in the middle third of the main bile duct. The stricture was likely post-surgical. Cytology specimen was sent from the stricture. - The left and right hepatic ducts and all intrahepatic branches were markedly dilated, acquired. - The patient has had a cholecystectomy. - Choledocholithiasis was found. Complete removal was accomplished by biliary sphincterotomy and balloon extraction. - A biliary sphincterotomy was performed. - The biliary tree was swept. - One stent was removed from the biliary tree. - Cells for cytology obtained in the middle third of the main bile duct. Recommendation: Augmentin 875/125 twice a day for 7 days. Procedure Code(s): --- Professional --- 41805, Endoscopic retrograde cholangiopancreatography (ERCP); with removal of foreign body(s) or stent(s) from biliary/pancreatic duct(s) 91950, Endoscopic retrograde cholangiopancreatography (ERCP); with removal of calculi/debris from biliary/pancreatic duct(s) 74697, Endoscopic retrograde cholangiopancreatography (ERCP); with sphincterotomy/papillotomy 66921, 26, Endoscopic catheterization of the biliary ductal system, radiological supervision and interpretation CPT copyright 2021 [employer]. All rights reserved. The codes documented in this report are preliminary and upon travel assistant review may be revised to meet current compliance requirements. Denys Babin DO 05/03/2025 1:35:07 PM This report has been signed electronically. Number of Addenda: 0 Note Initiated On: 05/03/2025 12:46 PM 05/03/25 1335 Date _ Denys Babin DO Cosigner Signature: Date (if indicated) CC: RETAIL CUSTOMER SERVICE SPECIALISTGarrison Arias; eDnys Babin DO ~ Date Dictated: 05/03/25 1246 Date Transcribed: Conduit Reamer Operator: RF Signed [facility]08-04-2025 Procedure note [facility] Medical Records Department [address] [place], [place] [id number] Provation Physician Letter MR#: [id number] Acct: [id number] Name: DIANE CONNORS Rep #:[id number] : 1985 39 From: Denys Babin DO PCP: AGUILAR Giles Status:REG S DC 05/03/2025 Shira Arias Re : ERCP procedure for Diane Connors [place] This procedure was performed on Saturday, May 03, 2025. My impressions and recommendations are as follows: Impressions : - A single localized biliary stricture was found in the middle third of the main bile duct. The stricture was likely post-surgical. Cytology specimen was sent from the stricture. - The left and right hepatic ducts and all intrahepatic branches were markedly dilated, acquired. - The patient has had a cholecystectomy. - Choledocholithiasis was found. Complete removal was accomplished by biliary sphincterotomy and balloon extraction. - A biliary sphincterotomy was performed. - The biliary tree was swept. - One stent was removed from the biliary tree. - Cells for cytology obtained in the middle third of the main bile duct. Recommendations : Augmentin 875/125 twice a day for 7 days. My findings are described in the full procedure note, which is enclosed. If I can be of further assistance, please feel free to contact me at . Sincerely, Denys Babin DO 05/03/2025 1:35:07 PM This report has been signed electronically. 05/03/25 1335 Date _ Denys Babin DO Cosigner Signature: Date (if indicated) CC: AGUILAR Arias; Denys Babin DO ~ Date Dictated: 05/03/25 1246 Date Transcribed: Conduit Reamer Operator: RF Signed [facility]08-04-2025 History and physical note [facility] Medical Records Department [address] [place] [address] History & Physical Exam 05/03/25 1247 MR#: [id number] Acct: [id number] Name: DIANE CONNORS Rep #:[id number] : 1985 39 From: Denys Babin DO PCP: AGUILAR Giles Status:REG S DC Location: [place] [address] HPI - General General Date of Admission: 05/03/25 Date of Service: 05/03/25 Chief Complaint: Biliary stent removal HPI Narrative DIANE CONNORS, is a 39 M who presents today for ERCP with stent removal. Patient recently underwentERCP with stone removal and stent placement. Last month he underwent elective cholecystectomy. Patient is doing well after procedure. He comes back in for stent removal. [facility] Medical History Bacteremia due to Gram-negative bacteria Drug-induced liver injury Jaundice History of biliary stent insertion Elevation of levels of liver transaminase levels Hyperbilirubinemia Overweight (BMI 25.0-29.9) No pertinent past medical history Home Medications ?Medication ?Instructions ?Recorded ?Last Taken ?Type NK 04/07/25 Unknown History Allergy/AdvReac Type Severity Reaction Status Date / Time No Known Allergies Allergy Verified 05/03/25 11:45 Surgical History Hx laparoscopic cholecystectomy History of ERCP Social History Smoking Status: Never smoker alcohol intake: never ROS Constitutional Constitutional: Denies fatigue, fever(s), poor appetite, weight gain or weight loss Gastrointestinal Gastrointestinal: Denies belching, bloating, change in bowel habits, change in stool character, chewing difficulty, coffee ground emesis, constipation, cramping, diarrhea, dyspepsia, dysphagia, earlysatiety, excessive flatus, fecalincontinence, heartburn, hematemesis, hematochezia, hemorrhoids, loose stools, melena, nausea, odynophagia, rectal bleeding, tenesmus, vomiting or weight changes Vital Signs Vital Signs Vital Signs: 05/03/25 11:55 05/03/25 11:55 Temperature 98.1 F Temperature Source Temporal Pulse Rate 60 Respiratory Rate 16 Respiratory Pattern Normal Blood Pressure 102/81 H Blood Pressure Mean 88 Blood Pressure Source Monitor Blood Pressure Position Semi-Fowlers Blood Pressure Location Right Arm Pulse Ox 99 Oxygen Delivery Method Room Air Weight Weight: 210 lb 15.718 oz Body Mass Index (BMI) 30.2 Physical Exam Const alert, oriented x3, no apparent distress and healthy appearing General Appearance: cooperative GI normal to inspection, nondistended, normoactive bowel sounds, soft to palpation,non-tender and non-distended Percussion: normal to percussion Rectal Exam: deferred Assessment & Plan Assessment/Plan (1) Hyperbilirubinemia: (2) Elevation of levels of liver transaminase levels: PLAN: Plan Patient is a 39-year-old male who presented to [facility] ED on 12/14/2024 with fevers and chills after recent ERCP. Reported fevers/chills with elevated transaminases after recent ERCP, recent history of choledocholithiasis and suspected history of drug-induced liver injury ? He had ERCP done with choledocholithiasis removed with biliary tree swept, as well as removal of previously placed temporary stent. He presents today for stent removal. He was explained alternatives, risk and benefits going understanding bleeding, infection, septal, perforation, need for surgery . He will have an ASA of 3. . 05/03/25 1249 Cosigner Signature (if applicable): CC: AGUILAR Arias; Denys Friend, DO~ Signed [facility]08-04-2025 Consult note [facility] Medical Records Department [address] [place] [address] Pre-Anesthesia Evaluation 05/03/25 1142 MR#: [id number] Acct: [id number] Name: DIANE CONNORS Rep #:[id number] : 1985 39 From: Rafael Hooper MD PCP: AGUILAR Giles Status:REG S DC Y Race: C Location: [place] [address] ASA Classification* ASA Classification ASA Classification: 2 [...] anesthesia risk assessments. Anesthesia Type Anesthesia Type: MAC Anesthesia Focused Assessment* Airway Assessment Mouth opens: >3 cm Mallampati Score: II Labs Anesthesia Preop lab: CBC WBC 9.2 K/mm3 (4.4-11.0) 03/18/25 06:27 03/18/25 RBC 5.04 M/mm3 (4.6-6.2) 03/18/25 06:03/18/25 Hgb 14.8 g/dL (13.0-16.5) 03/18/25 06:03/18/25 Hct 43.6 % (40-54) 03/18/25 06:03/18/25 Plt Count 264 K/mm3 (150-450) 03/18/25 06:27 03/18/25 CHEMISTRY Potassium 4.0 mmol/L (3.3-5.1) 03/18/25 06:27 03/18/25 Sodium 139 mmol/L (133-145) 03/18/25 06:27 03/18/25 Magnesium 2.1 mg/dL (1.6-2.6) 09/06/24 07:15 09/06/24 Phosphorus 3.2 mg/dL (2.5-4.9) 09/06/24 07:15 09/06/24 BUN 12 mg/dL (4-19) 03/18/25 06:27 03/18/25 Creatinine 1.00 mg/dL (0.70-1.20) 03/18/25 06:27 03/18/25 Glucose 114 mg/dL (70-99) H 03/18/25 06:27 03/18/25 TSH 0.918 uIU/mL (0.358-3.740) 09/11/24 08:48 08/30 12/21 COAG PT 12.3 SECONDS (11.7-14.9) 09/11/24 08:48 Pre-Assessment Diagnosis/Proposed Procedure Planned Operative Procedure(s): ERCP with stent pull. 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 When Was Last Pacemaker Check QUESTION #4 FULL TEXT: You/Your Family Experience fever (hyperthermia) with Anesthesia Last Oral Intake Last Oral intake: Last Oral Intake NPO since Meds taken in AM with sips of water? 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 Female No 04/27/25 15:02 HX of Motion Sickness No 04/27/25 15:02 HX of N/V After Surgery No 04/27/25 15:02 Non-Smoker Yes 04/27/25 15:02 Duration of Surgery greater Yes 04/27/25 15:02 than 60 minutes Number of Risk Factors 2 04/27/25 15:02 PONV Score Moderate Risk 04/27/25 15:02 Height & Weight Height & Weight: Anesthesia: Height & Weight Height 5 ft 10 in 03/17/25 19:52 Respiratory Assessment Respiratory Assessment - microbiology teacher: Respiratory Tract Infection Hx - microbiology teacher Hx Respiratory Tract Infection No 04/27/25 15:02 STOP Sleep Apnea STOP Sleep Apnea - microbiology teacher: STOP Sleep Apnea - microbiology teacher Hx Hypertension No 04/27/25 15:02 Hx Sleep Apnea No 04/27/25 15:02 CPAP BIPAP Do you snore loudly (louder No 04/27/25 15:02 than talking or can be heard Do you often feel tired/ No 04/27/25 15:02 fatigued/ sleepy during daytime? Has anyone observed you stop No 04/27/25 15:02 breathing during sleep? STOP Results Negative 04/27/25 15:02 QUESTION #5 FULL TEXT : Do you snore loudly (louder than talking or can be heard through closeddoors)? 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 Specify any problems Hx of Preganancy in last 3 N/A 04/27/25 15:02 Months Nurse Filling Out Transfusion VCHRISTIN 04/27/25 15:02 & Questions: Date: 04/27/25 04/27/25 15:02 Time: 15:03 04/27/25 15:02 Patient unable to answer at this time (ie. confused, unrespo /Reproduction History /Reproductive History - microbiology teacher: /Reproductive Hx- microbiology teacher Hx Now No 04/27/25 15:02 Gestational Age (in weeks): EDC: Hx Hx Para Hx Section SAB No 04/27/25 15:02 Active Medications Active Medications: Current Medications Generic Name Dose Route Start Last Admin Trade Name Freq PRN Reason Stop Dose Admin Lactated Ringer's 1,000 mls @ 15 mls/hr 05/03/25 11:45 IV .Q48H RICARDO PFSH Medical History Bacteremia due to Gram-negative bacteria Drug-induced liver injury Jaundice History of biliary stent insertion Elevation of levels of liver transaminase levels Hyperbilirubinemia Overweight (BMI 25.0-29.9) No pertinent past medical history Home Medications ?Medication ?Instructions ?Recorded ?Last Taken ?Type NK 04/07/25 Unknown History Allergy/AdvReac Type Severity Reaction Status Date / Time No Known Allergies Allergy Verified 04/27/25 14:59 Surgical History Hx laparoscopic cholecystectomy History of ERCP Social History Smoking Status: Never smoker alcohol intake: never Review of Systems (Anesthesia) ROS Narrative System reviewed and no additional complaints, except as documented. 05/03/25 1143 > Date _ Rafael Hooper MD Cosigner Signature: Date CC: ~ Signed [facility]07-01-2025 Nuclear medicine Diagnostic study note [facility] Imaging Services [address] [place], [place] [id number] Hepatobilliary Imaging MR#: [id number] Acct: [id number] Name: CONNORSDIANE A Rep #: [id number] : 1985 M 39 From: Nick Carter MD PCP: AGUILAR Giles Status: JOSE MIGUEL POLO Study:Hepatobilliary Imaging Date of Exam: 03/30/25 Exam# [id number] Ordering Dr: Bing Temple PA-C ADDENDUM by Dr. Seth Carter MD on 03/30/25 at 1558 No evidence biliary leak is seen. Reading Location: [place] [address] 03/30/25 1558 Date cc: AGUILAR Arias; SERGIO Temple ~* Signed PROCEDURE: HEPATOBILLIARY IMAGING 03/30/2025 REASON FOR EXAM: CHECK FOR BILE LEAKS AND DUCT PATENCY. Previous cholecystectomy. TECHNIQUE: Intravenous Choletec with planar imaging of the abdomen. RADIOPHARMACEUTICAL: 5.2 mCi technetium 99 M mebrofenin intravenous. COMPARISON: Hepatobiliary scan of 02/24/2025. FINDINGS: There is satisfactory uptake and excretion of the radiopharmaceutical by the liver. Small bowel activity seen by the 15 minute film. NM/Hepatobilliary Imaging IMPRESSION: 1. No evidence of common duct obstruction. 2. Satisfactory hepatic uptake and excretion. Reading Location: [place] [address] CC: AGUILAR Arias; SERGIO Temple ~ Conduit Reamer Operator: Signed [facility]06-26-2025 Progress [facility] [address] [place] [address]. [address] [place] [address] OFFICE VISIT Date of Service: 03/25/25 MR#: [id number] Acct: [id number] Name: DIANE CONNORS Enma Rep #: [id number] : 1985 Provider: SERGIO Temple Age/Sex: 39/M Location: [facility] Status: Signed Intake Vital Signs 03/17/25 19:52 Height 5 ft 10 in Intake Visit Reasons: GALLBLADDER 6-18 JASON DRAIN REMOVAL Chief Complaint: Gallbladder 618. possible drain removal Is patient in pain?: No Allergies No Known Allergies Allergy (Verified 03/25/25 13:08) Subjective Details: Patient is a 39 y/o M I am following s/p laparoscopic subtotal cholecystectomy with drain placementand primary umbilical hernia repair by Dr. Shoemaker on 03/17/25. Patient tolerated the procedure well. Patient denies any nausea, vomiting,fever. He notes appetite has slowly returned. He notes bowel habits are normal. Pathology demonstrated acute on chronic cholecystitis with cholelithiaisis. Objective Details: Abdomen- soft, Incisions c/d/i. No erythema or infection noted. JASON drain with serosanguineous fluidnoted. No bile within the bulb or tubing noted. Coding Level of Care Code Global Post Op Diagnoses Status post laparoscopic cholecystectomy Z90.49 [facility] Medical History History of biliary stent insertion Elevation of levels of liver transaminase levels Hyperbilirubinemia Overweight (BMI 25.0-29.9) No pertinent past medical history Surgical History Hx laparoscopic cholecystectomy History of ERCP Social History Smoking Status: Never smoker alcohol intake: never Assessment and Plan (No Qualifiers) Assessment and Plan (1) Status post laparoscopic cholecystectomy: Status: Acute Plan: Continue to record drainage amounts Will order a HIDA scan w/o CCK to r/o bile leak Patient to follow-up with Dr. Shoemaker after HIDA scan is obtained for possible drain removal Continue 15 pound lifting restriction Review pathology with patient again at return visit Follow-up with Dr. Shoemaker after HIDA scan completed 03/25/25 1349 th [place]> Date _ Bing YOUNG PA-C Cosigner Signature: Date (if applicable) CC: AGUILAR Arias; Dr. Camron Shoemaker MD ~ [facility]06-26-2025 Progress note Author Bing Temple [facility] Services Note Date/Time March 25, 2025 1:49 pm [facility] [address] [place] [address] OFFICE VISIT Date of Service: 03/25/25 MR#: [id number] Acct: [id number] Name: DIANE CONNORS Rep #: [id number] : 1985 Provider: SERGIO Temple Age/Sex: 39/M Location: [facility] Status: Signed Intake Vital Signs 03/17/25 19:52 Height 5 ft 10 in Intake Visit Reasons: GALLBLADDER 6-18 JASON DRAIN REMOVAL Chief Complaint: Gallbladder 618. possible drain removal Is patient in pain?: No Allergies No Known Allergies Allergy (Verified 03/25/25 13:08) Subjective Details: Patient is a 39 y/o M I am following s/p laparoscopic subtotal cholecystectomy with drain placement and primary umbilical hernia repair by Dr. Shoemaker on 03/17/25. Patient tolerated the procedure well. Patient denies any nausea, vomiting,fever. He notes appetite has slowly returned. He notes bowel habits are normal. Pathology demonstrated acute on chronic cholecystitis with cholelithiaisis. Objective Details: Abdomen- soft, Incisions c/d/i. No erythema or infection noted. JASON drain with serosanguineous fluid noted. No bile within the bulb or tubing noted. Coding Level of Care Code Global Post Op Diagnoses Status post laparoscopic cholecystectomy Z90.49 [facility] Medical History History of biliary stent insertion Elevation of levels of liver transaminase levels Hyperbilirubinemia Overweight (BMI 25.0-29.9) No pertinent past medical history Surgical History Hx laparoscopic cholecystectomy History of ERCP Social History Smoking Status: Never smoker alcohol intake: never Assessment and Plan (No Qualifiers) Assessment and Plan (1) Status post laparoscopic cholecystectomy: Status: Acute Plan: Continue to record drainage amounts Will order a HIDA scan w/o CCK to r/o bile leak Patient to follow-up with Dr. Shoemaker after HIDA scan is obtained for possible drain removal Continue 15 pound lifting restriction Review pathology with patient again at return visit Follow-up with Dr. Shoemaker after HIDA scan completed 03/25/25 1349 <Electronically signed by Bing YOUNG PA-C> Date _ Bing YOUNG PA-C Cosigner Signature: Date (if applicable) CC: AGUILAR Arias; Dr. Camron Shoemaker MD ~ [facility] [employer] Work Phone: 1(575) 233-512006-19-2025 Consult note [facility] Medical Records Department [address] [place] [address] Anesthesia Postop Eval II 03/17/25 1638 MR#: [id number] Acct: [id number] Name: DIANE CONNORS Rep #:[id number] : 1985 39 From: Dafne Sims CRNA PCP: AGUILAR Giles Status:REG S DC Y Race: C Location: [place] [address] Anesthesia Postop Eval I Sum Postop Eval Completion status Anesthesia document: Postop Eval 1 completed: Yes Anesthesia Postop Eval I Summary Anesthesia Postop Eval I Summary: Anesthesia Postop Eval I: Assessment Summary Airway patent Yes 03/17/25 16:38 ANGLE SHEARER.CSIR Spontaneous unlabored Yes 03/17/25 16:38 ANGLE SHEARER.CSIR respirations Mental status nausea No 03/17/25 16:38 ANGLE SHEARER.CSIR Vomiting No 03/17/25 16:38 ANGLE SHEARER.CSIR Anesthesia Postop Eval I: Fluid Summary Crystalloid volume administer 200 03/17/25 16:38 ANGLE SHEARER.CSIR (ml) Colloids volume administered ( ml) Blood Product volume administered (ml) Total IV fluid infused 200 03/17/25 16:38 ANGLE SHEARER.CSIR Anesthesia Postop Eval I: Summary Notes Anesthesia Complication No 03/17/25 16:38 ANGLE SHEARER.CSIR Anesthesia Complication Comment: Post-operative progress note Anesthesia: Postop Eval II Evaluation Mental status: Awake Pain Level: 1 nausea: No Vomiting: No 03/17/25 1638 a ANGLE SHEARER> Date _ Dafne Sirca ANGLE SHEARER Cosigner Signature: Date CC: ~ Signed [facility]06-19-2025 Consult note [facility] Medical Records Department [address] [place] [address] Anesthesia Postop Eval I 03/17/251652 MR#: [id number] Acct: [id number] Name: DIANE CONNORS Rep #:[id number] : 1985 39 From: Abimael parra CRNA PCP: AGUILAR Giles Status:REG S DC Y Race: C Location: [place] [address] Anesthesia: Postop Eval I Current Vital Signs Temperature: 97.2 F Pulse Rate: 78 Blood Pressure: 146/102 Respiratory Rate: 16 Pulse Ox: 95 Oxygen Delivery Method: Room Air Assessment Airway patent: Yes Spontaneous unlabored respirations: Yes Mental status: Awake nausea: No Vomiting: No Anesthesia Complication: No Fluid Hydration Crystalloid volume administer (ml): 2,000 Total IV fluid infused: 2,000 Progress Note Anesthesia document: Postop Eval 1 completed: Yes 03/17/251652 ero ANGLE SHEARER> Date _ Abimael Doll ANGLE SHEARER Cosigner Signature: Date CC: ~ Signed [facility]06-19-2025 Progress note [facility] Medical Records Department [address] [place] [address] Progress Note - Surgery 03/18/25 0700 MR#: [id number] Acct: [id number] Name: DIANE CONNORS Rep #:[id number] : 1985 39 From: Camron Love PCP: Shira Arias NP-C Status:ADM I N Location: [place] [address] Subjective Subjective Patient seen and examined during AM rounds. He states that he has some discomfort with movement butotherwise is doing well. Denies any issues with nausea or vomiting response to his liquid diet. Objective Data Objective Data Vital Signs: Vital Signs Temp Pulse Resp BP Pulse Ox O2 Del Method 98 F 84 16 120/86 H 98 Room Air 03/18/25 06:20 03/18/25 06:20 03/18/25 06:20 03/18/25 06:20 03/18/25 06:20 03/18/25 06:20 Oxygen Delivery Method Room Air Weight: 212 lb 4.882 oz Body Mass Index (BMI) 30.4 Intake & Output: Intake and Output for Last 24 Hours 03/16/25 03/17/25 03/18/25 23:59 23:59 23:59 Intake Total 1350 / 1350 350 / 350 Output Total 50 / 50 20 / 20 Balance 1300 / 1300 330 / 330 Lab / Micro Data 03/18/25 06:27 03/18/25 06:27 Labs: Laboratory Results - last 24 hr 03/18/25 06:27: WBC 9.2, RBC 5.04, Hgb 14.8, Hct 43.6, MCV 86.5, MCH 29.4, MCHC 33.9, RDW Std Deviation 42.8, RDW Coeff of Joanne 13.6, Plt Count 264, MPV 8.7, Immature Gran % (Auto) 0.500, Neut % (Auto) 74.4 H, Lymph % (Auto) 16.5 L, [place] % (Auto) 8.4, Eos % (Auto) 0.0, Baso % (Auto) 0.2, Absolute Neuts (auto) 6.8, Absolute Lymphs (auto) 1.52, Nucleated RBC % 0 Physical Exam Const oriented x3 and no apparent distress Resp normal respiratory effort GI GI Narrative: Operative dressings remain intact without strikethrough. Right upper quadrant drain with some thin serosanguineous output and clot in the line. No clear evidence of bile. Soft, nondistended, appropriately tender with palpation aboutincisions Assessment & Plan Assessment/Plan (1) Status post laparoscopic cholecystectomy: PLAN: Patient is 39-year-old male postoperative day 1 from laparoscopic subtotalcholecystectomy dueto severe chronic cholecystitis related to history of multiple bouts of cholangitis. His pain is well-controlled and his labs are as expected with mild elevations of LFTs?likely owing to ablation of the back of the gallbladder during surgery yesterday. Will plan to advance his diet, transition to oral antibiotics, and provide drain teaching anticipation of discharge later today. Camron Shoemaker MD General Surgery Endocrine Surgery Pager: [facility] [address] [place] [address], [address] [place] [id number] Office: [phone] Charges/Coding Visit Charges Inpatient E&M: 93333 Subs Hosp L2 03/18/25 1722 Cosigner Signature (if applicable): CC: ~ Signed [facility]06-19-2025 Discharge summary [facility] Medical Records Department [address] [place] [address] Instructions for Home/Discharge Instructions 03/18/25 1155 MR#: [id number] Acct: [id number] Name: DIANE CONNORS Rep #:[id number] : 1985 39 From: Camron Love PCP: AGUILAR Giles Status:ADM I N Discharge Instructions Diet Discharge Diet: No restrictions (Recommend low-fat) DC O2, CPAP, BIPAP needs Home O2 Discharge instructions: No Dressing / Incision Discharge Activity: May Not Drive (No driving while using narcotic pain medication) and May Shower (Postoperative day 1) May shower in (days): 1 Ice area for (Minutes): 20 Lifting Restrictions: No lifting greater than 15 pounds for 2 weeks after surgery Dressing / Incision Call your doctor if your incision/area has: Continuous Slow Oozing, Sudden Increased Bleeding, Increased Pain/ Swelling, Increased Redness, Foul Smelling Discharge and Swelling at the incision site Call your doctor if you observe: Fever of 101 or Higher Suture Line Care: Avoid Pulling/Pushing Remove Dressing in: 1 day (Please leave Steri-Strips intact until they fall off spontaneously or are taken off at your follow-up visit) Cleanse incision/area with: Soap & Water Drain: Suction (Please empty and record volumes daily) Follow Up Care Please Follow Up With: Camron Shoemaker MD When: 7-10days postop Test Results: Test results from this visit will be discussed in further detail at your follow- up appointment, if applicable. Discharge Plan Admission Admit Date/Time: 03/17/25 15:40 Primary Reason for Your Visit: Cholecystectomy Attending Provider: Camron Shoemaker Primary Care Provider: Shira Arias NP Consulting Providers: Gray López Discharge Orders/Prescriptions Prescriptions: New oxycodone 5 mg Tablet 5 mg PO Q6H PRN PRN (Reason: Pain Score 6-10) 3 Days Qty: 10 0RF amoxicillin-pot clavulanate 875-125 mg tablet 1 tab PO Q12H 3 Days Qty: 6 0RF Referrals / Follow Up: Shira Arias NP, RETAIL CUSTOMER SERVICE SPECIALIST-C [Primary Care Provider] - Disposition Disposition (needs filled in before D/C Order can be placed): Home, Self Care 03/18/25 1720Micember Shoemaker MD CC: ELLI-C Shira Arias; Dr. Gray López MD ~ Signed [facility]06-19-2025 Discharge summary Author Camron Shoemaker [facility] Note Date/Time March 18, 2025 5:20 pm [facility] Medical Records Department [address] [place] [address] Instructions for Home/Discharge Instructions 03/18/25 1155 MR#: [id number] Acct: [id number] Name: DIANE CONNORS Rep #:[id number] : 1985 39 From: Camron Love PCP: AGUILAR Giles Status:ADM I N Discharge Instructions Diet Discharge Diet: No restrictions (Recommend low-fat) DC O2, CPAP, BIPAP needs Home O2 Discharge instructions: No Dressing / Incision Discharge Activity: May Not Drive (No driving while using narcotic pain medication) and May Shower (Postoperative day 1) May shower in (days): 1 Ice area for (Minutes): 20 Lifting Restrictions: No lifting greater than 15 pounds for 2 weeks after surgery Dressing / Incision Call your doctor if your incision/area has: Continuous Slow Oozing, Sudden Increased Bleeding, Increased Pain/ Swelling, Increased Redness, Foul Smelling Discharge and Swelling at the incision site Call your doctor if you observe: Fever of 101 or Higher Suture Line Care: Avoid Pulling/Pushing Remove Dressing in: 1 day (Please leave Steri-Strips intact until they fall off spontaneously or are taken off at your follow-up visit) Cleanse incision/area with: Soap & Water Drain: Suction (Please empty and record volumes daily) Follow Up Care Please Follow Up With: Camron Shoemaker MD When: 7-10days postop Test Results: Test results from this visit will be discussed in further detail at your follow- up appointment, if applicable. Discharge Plan Admission Admit Date/Time: 03/17/25 15:40 Primary Reason for Your Visit: Cholecystectomy Attending Provider: Camron Shoemaker Primary Care Provider: Shira Arias NP Consulting Providers: Gray López Discharge Orders/Prescriptions Prescriptions: New oxycodone 5 mg Tablet 5 mg PO Q6H PRN PRN (Reason: Pain Score 6-10) 3 Days Qty: 10 0RF amoxicillin-pot clavulanate 875-125 mg tablet 1 tab PO Q12H 3 Days Qty: 6 0RF Referrals / Follow Up: Shira Arias NP, RETAIL CUSTOMER SERVICE SPECIALIST-C [Primary Care Provider] - Disposition Disposition (needs filled in before D/C Order can be placed): Home, Self Care 03/18/25 1720<Electronically signed by Camron Shoemaker MD>Camron Shoemaker MD CC: AGUILAR Arias; Dr. Gray López MD ~ Signed [facility] Work Phone: 1(263) 333-962106-19-2025 [facility]06-19-2025 Progress note Author Camron Shoemaker [facility] Note Date/Time March 18, 2025 5:22 pm [facility] Medical Records Department [address] [place] [address] Progress Note - Surgery 03/18/25 0700 MR#: [id number] Acct: [id number] Name: DIANE CONNORS Rep #:[id number] : 1985 39 From: Camron Love PCP: Shira Arias RETAIL CUSTOMER SERVICE SPECIALIST-C Status:ADM I N Location: [place] [address] Subjective Subjective Patient seen and examined during AM rounds. He states that he has some discomfort with movement but otherwise is doing well. Denies any issues with nausea or vomiting response to his liquid diet. Objective Data Objective Data Vital Signs: Vital Signs Temp Pulse Resp BP Pulse Ox O2 Del Method 98 F 84 16 120/86 H 98 Room Air 03/18/25 06:20 03/18/25 06:20 03/18/25 06:20 03/18/25 06:20 03/18/25 06:20 03/18/25 06:20 Oxygen Delivery Method Room Air Weight: 212 lb 4.882 oz Body Mass Index (BMI) 30.4 Intake & Output: Intake and Output for Last 24 Hours 03/16/25 03/17/25 03/18/25 23:59 23:59 23:59 Intake Total 1350 / 1350 350 / 350 Output Total 50 / 50 20 / 20 Balance 1300 / 1300 330 / 330 Lab / Micro Data 03/18/25 06:27 03/18/25 06:27 Labs: Laboratory Results - last 24 hr 03/18/25 06:27: WBC 9.2, RBC 5.04, Hgb 14.8, Hct 43.6, MCV 86.5, MCH 29.4, MCHC 33.9, RDW Std Deviation 42.8, RDW Coeff of Joanne 13.6, Plt Count 264, MPV 8.7, Immature Gran % (Auto) 0.500, Neut % (Auto) 74.4 H, Lymph % (Auto) 16.5 L, [place] % (Auto) 8.4, Eos % (Auto) 0.0, Baso % (Auto) 0.2, Absolute Neuts (auto) 6.8, Absolute Lymphs (auto) 1.52, Nucleated RBC % 0 Physical Exam Const oriented x3 and no apparent distress Resp normal respiratory effort GI GI Narrative: Operative dressings remain intact without strikethrough. Right upper quadrant drain with some thin serosanguineous output and clot in the line. No clear evidence of bile. Soft, nondistended, appropriately tender with palpation aboutincisions Assessment & Plan Assessment/Plan (1) Status post laparoscopic cholecystectomy: PLAN: Patient is 39-year-old male postoperative day 1 from laparoscopic subtotalcholecystectomy due to severe chronic cholecystitis related to history of multiple bouts of cholangitis. His pain is well-controlled and his labs are as expected with mild elevations of LFTs?likely owing to ablation of the back of the gallbladder during surgery yesterday. Will plan to advance his diet, transition to oral antibiotics, and provide drain teaching anticipation of discharge later today. Camron Shoemaker MD General Surgery Endocrine Surgery Pager: [facility] [address] [place] [address], [address] [place] [address] Office: [phone] Charges/Coding Visit Charges Inpatient E&M: 22617 Subs Hosp L2 03/18/25 1722 <Electronically signed by Camron Shoemaker MD> Cosigner Signature (if applicable): CC: ~ Signed [facility] Work Phone: 1(556) 198-295606-18-2025 Consult note Author Abimael Doll [facility] Note Date/Time March 18, 2025 6:36 pm [facility] Medical Records Department [address] [place] [address] Anesthesia Postop Eval I 03/17/25 1653 MR#: [id number] Acct: [id number] Name: DOROTHY CONNORSKelly Norwood Rep #:[id number] : 1985 39 From: Abimael parra CRNA PCP: AGUILAR Giles Status:REG S DC Y Race: C Location: [place] [address] Anesthesia: Postop Eval I Current Vital Signs Temperature: 97.2 F Pulse Rate: 78 Blood Pressure: 146/102 Respiratory Rate: 16 Pulse Ox: 95 Oxygen Delivery Method: Room Air Assessment Airway patent: Yes Spontaneous unlabored respirations: Yes Mental status: Awake nausea: No Vomiting: No Anesthesia Complication: No Fluid Hydration Crystalloid volume administer (ml): 2,000 Total IV fluid infused: 2,000 Progress Note Anesthesia document: Postop Eval 1 completed: Yes 03/17/25 1653 <Electronically signed by Abimael hines ANGLE SHEARER> Date _ Abimael Doll ANGLE SHEARER Cosigner Signature: Date CC: ~ Signed [facility] Work Phone: 1(339) 357-171206-18-2025 Consult note [facility] Note Date/Time March 17, 2025 4:38 pm [facility] Medical Records Department [address] [place] [address] Anesthesia Postop Eval I 03/17/25 1607 MR#: [id number] Acct: [id number] Name: DIANE CONNORS Rep #:[id number] : 1985 39 From: Dafne Sims CRNA PCP: AGUILAR Giles Status:REG S DC Y Race: C Location: [place] [address] Anesthesia: Postop Eval I Current Vital Signs Temperature: 97.2 F Pulse Rate: 77 Blood Pressure: 154/100 Respiratory Rate: 16 Pulse Ox: 98 Assessment Airway patent: Yes Spontaneous unlabored respirations: Yes nausea: No Vomiting: No Anesthesia Complication: No Fluid Hydration Crystalloid volume administer (ml): 200 Total IV fluid infused: 200 Progress Note Anesthesia document: Postop Eval 1 completed: Yes 03/17/25 1638 <Electronically signed by Dafne norwood ANGLE SHEARER> Date _ Dafne Sims ANGLE SHEARER Cosigner Signature: Date CC: ~ Signed [facility] Work Phone: 1(465) 698-264706-18-2025 Consult note Author Dafne Sims [facility] Note Date/Time March 18, 2025 6:36 pm [facility] Medical Records Department [address] [place] [address] Anesthesia Postop Eval II 03/17/25 1638 MR#: [id number] Acct: [id number] Name: DIANE CONNORS Rep #:[id number] : 1985 39 From: Dafne Sims CRNA PCP: Shira Arias NP-C Status:REG S DC Y Race: C Location: [place] [address] Anesthesia Postop Eval I Sum Postop Eval Completion status Anesthesia document: Postop Eval 1 completed: Yes Anesthesia Postop Eval I Summary Anesthesia Postop Eval I Summary: Anesthesia Postop Eval I: Assessment Summary Airway patent Yes 03/17/25 16:38 ANGLE SHEARER.CSIR Spontaneous unlabored Yes 03/17/25 16:38 ANGLE SHEARER.CSIR respirations Mental status nausea No 03/17/25 16:38 ANGLE SHEARER.CSIR Vomiting No 03/17/25 16:38 ANGLE SHEARER.CSIR Anesthesia Postop Eval I: Fluid Summary Crystalloid volume administer 200 03/17/25 16:38 ANGLE SHEARER.CSIR (ml) Colloids volume administered ( ml) Blood Product volume administered (ml) Total IV fluid infused 200 03/17/25 16:38 ANGLE SHEARER.CSIR Anesthesia Postop Eval I: Summary Notes Anesthesia Complication No 03/17/25 16:38 ANGLE SHEARER.CSIR Anesthesia Complication Comment: Post-operative progress note Anesthesia: Postop Eval II Evaluation Mental status: Awake Pain Level: 1 nausea: No Vomiting: No 03/17/25 1638 <Electronically signed by Dafne norwood CRNA> Date _ Dafne Sims ANGLE SHEARER Cosigner Signature: Date CC: ~ Signed [facility] Work Phone: 1(230) 547-421206-18-2025 Evaluation note* Diagnosis Onset Date Resolution Status Admit Date Status post laparoscopic cholecystectomy acute March 17, 2025 3:40pm Status post laparoscopic cholecystectomy acute March 25, 2025 1:05pm Cholecystitis acute March 31, 2 025 1:58pm Status post laparoscopic cholecystectomy acute March 31, 2025 1 :58pm Status post laparoscopic cholecystectomy acute April 07, 2025 2 :29pm Elevation of levels of liver transaminase levels inactive May 03, 2025 11:31am Hyperbilirubinemia inactive May 03, 2025 11:31am [facility] Work Phone: 1(897) 842-775606-18-2025 Consult note [facility] Medical Records Department [address] [place] [address] Anesthesia Postop Eval I 03/17/25 1607 MR#: [id number] Acct: [id number] Name: CONNORSDIANE Rep #:[id number] : 1985 39 From: Dafne Sims ANGLE SHEARER PCP: AGUILAR Giles Status:REG S DC Y Race: C Location: [place] [address] Anesthesia: Postop Eval I Current Vital Signs Temperature: 97.2 F Pulse Rate: 77 Blood Pressure: 154/100 Respiratory Rate: 16 Pulse Ox: 98 Assessment Airway patent: Yes Spontaneous unlabored respirations: Yes nausea: No Vomiting: No Anesthesia Complication: No Fluid Hydration Crystalloid volume administer (ml): 200 Total IV fluid infused: 200 Progress Note Anesthesia document: Postop Eval 1 completed: Yes 03/17/25 1638 a ANGLE SHEARER> Date _ Dafne Sims ANGLE SHEARER Cosigner Signature: Date CC: ~ Signed [facility]06-18-2025 History and physical note Author Camrno Shoemaker [facility] Note Date/Time March 17, 2025 11:4 8am [facility] Medical Records Department [address] [place] [address] History & Physical Exam 03/17/25 1147 MR#: [id number] Acct: [id number] Name: DIANE CONNORS Rep #:[id number] : 1985 39 From: Camron Love PCP: AGUILAR Giles Status:REG S DC Location: [place] [address]- History and Physical Date of Admission: 03/17/25 Date of Service: 12/31/24 MR#: [id number] Acct: [id number] Name: DIANE CONNORS Rep #: [id number] : 1985 Provider: Dr. Camron Shoemaker MD Age/Sex: 39/M Location: [facility] Status: Signed Intake Vital Signs 12/15/2513:00 12/31/2509:04 Height 5 ft 10.08 in 5 ft 10 in Weight: 204 lb 8 oz BMI 29.3 BP 100/70 Blood Pressure Location Rt brachial Position Sitting Respiration 18 Pulse 67 Pulse Source Monitor Temp 97.6 F L Temp Source Temporal Oxygen Delivery Method room air Intake Visit Reasons: GALLBLADDER, [facility] FU Chief Complaint: Gallbladder ERCP 12/15/24 Field Instructor Required: No Accompanied by: Unknown Is patient in pain?: No Allergies No Known Allergies Allergy (Verified 12/31/24 11:28) Medications ?Medication ?Instructions ?Recorded ?Confirmed ?Type NK 12/31/24 12/31/24 History Have you fallen in the past year?: No PFSH Medical History Overweight (BMI 25.0-29.9) No pertinent past medical history Medical History no medical history Surgical History History of ERCP Social History Smoking Status: Never smoker alcohol intake: never HPI HPI HPI: Patient is a 39-year-old male whom I met during recent inpatient stay that concluded 12/16/2024 and requested follow-up on the account of recurrent choledocholithiasis, abnormal LFTs, and umbilical hernia. He presents today again with his . She shares that she reviewed my note following our encounter and also took a picture of my drawings. When asked if there are any questions based on this information the initially denied any. Mr. Connors deniesany abdominal pain at this point. He further denies any fevers or chills. Neither he nor Mrs. Connors have appreciated any evidence of jaundice. He also confirms that he has completed his antibiotic course for his gram-negative bacteremia. Below is the assessment and plan from our prior joint encounter: PLAN: Patient is a 39-year-old male who [...] for recurrence. Given patient's personal experience this [id number] appears clear to them. Patient's spouse does [...] follow-up with general surgery as an outpatient. ROS General General: No weight change, appetite, fatigue, colon cancer, breast cancer or weakness HEENT HEENT: No difficulty swallowing, eye injury, eye surgery, swollen glands or hoarseness Endo Endocrine: No thyroid disease, diabetes mellitus, thyroid cancer, Hair loss, heat intolerance or cold intolerance Skin Skin: No rash or changing moles Breast Breast: No left breast lump, right breast lump, nipple discharge, breast pain, abnormal mammogram, abnormal US or breast enlargement Musc Musculoskeletal: No back problems, arthritis, rheumatoid arthritis, gout or joint pain Cardio Cardiovascular: No murmur, pacemaker, heart disease, atrial fibrillation, high blood pressure, heart attack, heart stent, palpitations, shortness of breath with exertion or chest pain Psych Psychiatric: No depression, anxiety or hearing voices Resp Respiratory: No shortness of breath, No sleep apnea, No cough, No COPD, No asthma, No emphysema and No wheezing Gastro Gastrointestinal: No abdominal pain, No nausea or vomiting, No diarrhea, No constipation, No blood in stool, No acid reflux, No hemorrhoids, No ulcers, Yes gallbladder problem and No black,tarry stools Edd Hematologic: No blood thinners, No blood disorders, No bleeding, No anemia and No blood clots Neuro Neurologic: No system reviewed and no additional complaints, except as documented, No as per HPI, No abnormal gait, No abnormal hearing, No abnormal movements, No abnormal speech, No behavioral changes, No burning sensations, No confusion, No convulsions, No disequilibrium, No dizziness, No localized weakness, No frequent falls, No headache(s), No lack of coordination, No loss ofvision, No memory loss, No numbness, No other visual disturbances, No radicular pain, No restless legs, No sensory deficit, No syncope, No tingling, No tremor(s), No weakness and No other Exam Const General: cooperative and comfortable Orientation: alert, awake and oriented x3 Other: No visible jaundice, patient tanned Resp Effort & Inspection: normal respiratory effort GI Other: Nondistended, soft, tender to palpation (mildly so) in the right upper quadrant. Stable umbilical hernia containing fat that is soft and nontender. Assessment and Plan Assessment and Plan (1) Choledocholithiasis: Status: Resolved Comment: Patient is a 39-year-old male with history of recurrent bouts of chol edocholithiasis and subsequent cholangitis after ERCP with stent removal from his initial treatment of his initial bout of choledocholithiasis. With this recurrence and treatment for cholangitis it was strongly recommended that he undergo cholecystectomy before any additional consideration is given to removinghis current common bile duct stent. Patient was thus visited while an inpatientand this conversation was started. 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 I clarified that I recommend proceeding for surgery as soon as possible given his experience to date but would work with their schedule. I didstress that I would recommend no lifting greater than 10 pounds for 5 weeks immediately postop and then a gradual return to activity thereafter. Plan: Plan for outpatient laparoscopic cholecystectomy and intraoperative cholangiography and concurrent liver biopsy and primary repair of umbilical hernia. Following his recovery from this procedure we will refer back to gastroenterology for ERCP with stent removal. (2) Hyperbilirubinemia: Status: Inactive Comment: Elevated up to 24 in August 2024 prompting recommendation for liver biopsy with cholecystectomy. I have examined the patient the following changes are noted: Patient arrives forhis operation today. He has decided against going through with a liver biopsy since his labs are normalized. I discussed with gastroenterology as well as reviewed with patient that it would be most optimal to proceed now for a liver biopsy in the event that his liver function testing would elevate postoperatively. However, after much deliberation with his he is adamant that he would like to abstain from liver biopsy during today's procedure. We doconfirm plans for laparoscopic cholecystectomy and intraoperative cholangiography as well as primary repair of umbilical hernia during port insertion. Consents were confirmed. Will now proceed the operating room for procedure as planned. 03/17/25 1148 <Electronically signed by Camron Shoemaker MD> Cosigner Signature (if applicable): CC: AGUILAR Arias; Dr. Camron Shoemaker MD~ Signed [facility] Work Phone: 1([phone]) 338-332406-18-2025 Consult note Author Kilo [facility] Note Date/Time March 17, 2025 11:1 5am [facility] Medical Records Department [address] [place] [address] Pre-Anesthesia Evaluation 03/17/25 1110 MR#: [id number] Acct: [id number] Name: DIANE CONNORS Rep #:[id number] : 1985 39 From: Kilo Mtz MD PCP: AGUILAR Giles Status:REG S DC Y Race: C Location: [facility]17-1 ASA Classification* ASA Classification ASA Classification: 2 [...] Focused Assessment* Temperature: 98.7 F Pulse Rate: 73 Blood Pressure: 132/99 Respiratory Rate: 16 Pulse Ox: 99 Airway Assessment Mouth opens: >3 cm Mallampati Score: III Teeth Condition: Caps/Crowns (Patient has several crowns. They are tight.) Neck Range of motion (ROM): Full ROM Labs Anesthesia Preop lab: CBC WBC 6.1 K/mm3 (4.4-11.0) 12/16/24 05:09 12/16/24 RBC 4.63 M/mm3 (4.6-6.2) 12/16/24 05:09 12/16/24 Hgb 13.5 g/dL (13.0-16.5) 12/16/24 05:09 12/16/24 Hct 39.8 % (40-54) L 12/16/24 05:09 12/16/24 Plt Count 153 K/mm3 (150-450) 12/16/24 05:09 12/16/24 CHEMISTRY Potassium 4.0 mmol/L (3.3-5.1) 12/16/24 05:09 12/16/24 Sodium 139 mmol/L (133-145) 12/16/24 05:09 12/16/24 Magnesium 2.1 mg/dL (1.6-2.6) 09/06/24 07:15 09/06/24 Phosphorus 3.2 mg/dL (2.5-4.9) 09/06/24 07:15 09/06/24 BUN 14 mg/dL (4-19) 12/16/24 05:09 12/16/24 Creatinine 1.06 mg/dL (0.70-1.20) 12/16/24 05:09 12/16/24 Glucose 85 mg/dL (70-99) 12/16/24 05:09 12/16/24 TSH 0.918 uIU/mL (0.358-3.740) 09/11/24 08:48 08/30 12/21 COAG PT 12.3 SECONDS (11.7-14.9) 09/11/24 08:48 Pre-Assessment Diagnosis/Proposed Procedure Planned Operative Procedure(s): LAP CHOLEY IOC UMBILICAL HERNIA REPAIR LIVER BIOPSY 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 When Was Last Pacemaker Check QUESTION #4 FULL TEXT: You/Your Family Experience fever (hyperthermia) with Anesthesia Last Oral Intake Last Oral intake: Last Oral Intake NPO since 23:00 03/17/25 10:57 Meds taken in AM with sips of No 03/17/25 10:57 water? 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 Has anyone observed you stop No 03/03/25 10:05 breathing during sleep? STOP Results Negative 03/03/25 10:05 QUESTION #5 FULL TEXT : Do you snore loudly (louder than talking or can be heard through closed doors)? 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 Specify any problems Hx of Preganancy in last 3 N/A 03/03/25 10:05 Months Nurse Filling Out Transfusion DSCHRIBER 03/03/25 10:05 & Questions: Date: 03/03/25 03/03/25 10:05 Time: 10:07 03/03/25 10:05 Patient unable to answer at this time (ie. confused, unrespo /Reproduction History /Reproductive History - microbiology teacher: /Reproductive Hx- microbiology teacher Hx Now Gestational Age (in weeks): EDC: Hx Hx Para Hx Section SAB No 03/03/25 10:05 Active Medications Active Medications: Current Medications Generic Name Dose Route Start Last Admin Trade Name Freq PRN Reason Stop Dose Admin Cefazolin Sodium 2 gm/ Sodium 110 mls @ 150 mls/hr 03/17/25 11:30 Chloride IV 03/17/25 12:13 INTRAOP ONE Lactated Ringer's 1,000 mls @ 15 mls/hr 03/17/25 10:45 03/17/25 11:00 IV 15 mls/hr .Q48H RICARDO Administration PFSH Medical History History of biliary stent insertion Elevation of levels of liver transaminase levels Hyperbilirubinemia Overweight (BMI 25.0-29.9) No pertinent past medical history Home Medications ?Medication ?Instructions ?Recorded ?Last Taken ?Type NK 12/31/24 Unknown History Allergy/AdvReac Type Severity Reaction Status Date / Time No Known Allergies Allergy Verified 03/17/25 10:56 Surgical History Hx laparoscopic cholecystectomy History of ERCP Social History Smoking Status: Never smoker alcohol intake: never Review of Systems (Anesthesia) ROS Narrative System reviewed and no additional complaints, except as documented. 03/17/25 1115 <Electronically signed by Kilo russell MD> Date _ Kilo Mtz MD Cosigner Signature: Date CC: ~ Signed [facility] Work Phone: 1(459) 476-967106-18-2025 History and physical note [facility] Medical Records Department [address] [place] [address] History & Physical Exam 03/17/25 1147 MR#: [id number] Acct: [id number] Name: DIANE CONNORS Rep #:[id number] : 1985 39 From: Camron Love PCP: AGUILAR Giles Status:REG S FL Location: [place] [address] History and Physical Date of Admission: 03/17/25 Date of Service: 12/31/24 MR#: [id number] Acct: [id number] Name: DIANE CONNORS Rep #: [id number] : 1985 Provider: Dr. Camron Shoemaker MD Age/Sex: 39/M Location: [facility] Status: Signed Intake Vital Signs 12/15/2513:00 12/31/2509:04 Height 5 ft 10.08 in 5 ft 10 in Weight: 204 lb 8 oz BMI 29.3 BP 100/70 Blood Pressure Location Rt brachial Position Sitting Respiration 18 Pulse 67 Pulse Source Monitor Temp 97.6 F L Temp Source Temporal Oxygen Delivery Method room air Intake Visit Reasons: GALLBLADDER, [facility] FU Chief Complaint: Gallbladder ERCP 12/15/24 Field Instructor Required: No Accompanied by: Unknown Is patient in pain?: No Allergies No Known Allergies Allergy (Verified 12/31/24 11:28) Medications ?Medication ?Instructions ?Recorded ?Confirmed ?Type NK 12/31/24 12/31/24 History Have you fallen in the past year?: No PFSH Medical History Overweight (BMI 25.0-29.9) No pertinent past medical history Medical History no medical history Surgical History History of ERCP Social History Smoking Status: Never smoker alcohol intake: never HPI HPI HPI: Patient is a 39-year-old male whom I met during recent inpatient stay that concluded 12/16/2024 and requested follow-up on the account of recurrent choledocholithiasis, abnormal LFTs, and umbilical hernia. He presents today again with his . She shares that she reviewed my note following our encounter and also took a picture of my drawings. When asked if there are any qu estions based on this information the initially denied any. Mr. Connors deniesany abdominal pain at this point. He further denies any fevers or chills. Neither he nor Mrs. Connors have appreciated any evidence of jaundice. He also confirms that he has completed his antibiotic course for his gram-negative bacteremia. Below is the assessment and plan from our prior joint encounter: PLAN: Patient is a 39-year-old male who [...] culture Gram stain is positive and signifies gram- negative bacteremia. He has no pain on my exam with palpationofhis right upper quadrant. I held a lengthy conversation with patient and his spouse?including anddrawings to illustrate relevant anatomy and physiology. I discussed with them the basics of choledocholithiasis and the necessity of cholecystectomy as part of the management for this process to mitigate the risk for recurrence. Given patient's personal experience this [id number] appears clear to them. Patient's spouse does offer that her waited overa month with his jaundice before presenting at the initial encounter and thus attributes his marked lab abnormalities to this delay in seeking care. Following this discussion I offered my recommendation for a short interval follow-upas an outpatient to then schedule laparoscopic cholecystectomy with intraoperative cholangiography.I also offered to perform a core needle biopsy at the time of the procedure as a means of hopefullymitigating any periprocedural bleeding and obtaining a specimen as requested by both Drs. Babin and Hu to exclude a primary hepatocellular or biliary pathology. Lastly, on exam I did find a fat?in carcerated umbilical hernia measuring between1 and 2 cm [...] follow-up with general surgery as an outpatient. ROS General General: No weight change, appetite, fatigue, colon cancer, breast cancer or weakness HEENT HEENT: No difficulty swallowing, eye injury, eye surgery, swollen glands or hoarseness Endo Endocrine: No thyroid disease, diabetes mellitus, thyroid cancer, Hair loss, heat intolerance or cold intolerance Skin Skin: No rash or changing moles Breast Breast: No left breast lump, right breast lump, nipple discharge, breast pain, abnormal mammogram, abnormal US or breast enlargement Musc Musculoskeletal: No back problems, arthritis, rheumatoid arthritis, gout or joint pain Cardio Cardiovascular: No murmur, pacemaker, heart disease, atrial fibrillation, high blood pressure, heart attack, heart stent, palpitations, shortness of breath with exertion or chestpain Psych Psychiatric: No depression, anxiety or hearing voices Resp Respiratory: No shortness of breath, No sleep apnea, No cough, No COPD, No asthma, No emphysema and No wheezing Gastro Gastrointestinal: No abdominal pain, No nausea or vomiting, No diarrhea, No constipation, No blood in stool, No acid reflux, No hemorrhoids, No ulcers, Yes gallbladder problemand No black,tarry stools Edd Hematologic: No blood thinners, No blood disorders, No bleeding, No anemia and No blood clots Neuro Neurologic: No system reviewed and no additional complaints, except as documented, No as per HPI, No abnormal gait, No abnormal hearing, No abnormal movements, No abnormal speech, No behavioral changes, No burning sensations, No confusion, No convulsions, No disequilibrium, No dizziness, No localized weakness, No frequent falls, No headache(s), No lack of coordination, No loss ofvision, No memory loss, No numbness, No other visual disturbances, No radicular pain, Norestless legs, No sensory deficit, No syncope, No tingling, No tremor(s), No weakness and No other Exam Const General: cooperative and comfortable Orientation: alert, awake and oriented x3 Other: No visible jaundice, patient tanned Resp Effort & Inspection: normal respiratory effort GI Other: Nondistended, soft, tender to palpation (mildly so) in the right upper quadrant. Stable umbilical hernia containing fat that is soft and nontender. Assessment and Plan Assessment and Plan (1) Choledocholithiasis: Status: Resolved Comment: Patient is a 39-year-old male with history of recurrent bouts of chol edocholithiasis and subsequent cholangitis after ERCP with stent removal from his initial treatmentof his initial bout of choledocholithiasis. With this recurrence and treatment for cholangitis it was strongly recommended that he undergo cholecystectomy before any additional consideration is givento removinghis current common bile duct stent. Patient was thus visited while an inpatientand this conversation was started. Overall, patient and his spouse confirm understanding of that discussion. However, as the conversation continues Mr. Connors expresses reservations about removing his gallbladder if it could at all be certain that he no longer has gallstones and then as well about undergoinga liver biopsy. I tried to stress that through my experience with choledocholithiasis and then alsobringing those experiences of Drs. Lui and Dr. Babin to bear we all found the extreme elevation of his bilirubin (at his initial presentation) to be atypical of this condition as an isolated causefor hyperbilirubinemia. With this deviation from the norm [...] is taken upfront. Patient and his seem toconfirm understanding. 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 I clarified that I recommend proceeding for surgery as soon as possible given his experienceto date but would work with their schedule. I didstress that I would recommend no lifting greater than 10 pounds for 5 weeks immediately postop and then a gradual return to activity thereafter. Plan: Plan for outpatient laparoscopic cholecystectomy and intraoperative cholangiography and concurrent liver biopsy and primary repair of umbilical hernia. Following his recovery from this procedure we will refer back to gastroenterology for ERCP with stent removal. (2) Hyperbilirubinemia: Status: Inactive Comment: Elevated up to 24 in August 2024 prompting recommendation for liver biopsy with cholecystectomy. I have examined the patient the following changes are noted: Patient arrives forhis operation today. He has decided against going through with a liver biopsy since his labs are normalized. I discussed with gastroenterology as well as reviewed with patient that it would be most optimal to proceed now for a liver biopsy in the event that his liver function testing would elevate postoperatively. However, after much deliberation with his he is adamant that he would like to abstain from liver biopsy during today's procedure. We doconfirm plans for laparoscopic cholecystectomy and intraoperative cholangiography as well as primary repair of umbilical hernia during port insertion. Consents were confirmed. Will now proceed the operating room for procedure as planned. 03/17/25 1148 Cosigner Signature (if applicable): CC: AGUILAR Arias; Dr. Camron Shoemaker MD~ Signed [facility]06-18-2025 [facility]06-18-2025 Consult note [facility] Medical Records Department [address] [place] [address] Pre-Anesthesia Evaluation 03/17/25 1110 MR#: [id number] Acct: [id number] Name: DIANE CONNORS Rep #:[id number] : 1985 39 From: Kilo Mtz MD PCP: AGUILAR Giles Status:REG S DC Y Race: C Location: [place] [address] ASA Classification* ASA Classification ASA Classification: 2 [...] Focused Assessment* Temperature: 98.7 F Pulse Rate: 73 Blood Pressure: 132/99 Respiratory Rate: 16 Pulse Ox: 99 Airway Assessment Mouth opens: >3 cm Mallampati Score: III Teeth Condition: Caps/Crowns (Patient has several crowns. They are tight.) Neck Range of motion (ROM): Full ROM Labs Anesthesia Preop lab: CBC WBC 6.1 K/mm3 (4.4-11.0) 12/16/24 05:09 12/16/24 RBC 4.63 M/mm3 (4.6-6.2) 12/16/24 05:09 12/16/24 Hgb 13.5 g/dL (13.0-16.5) 12/16/24 05:09 12/16/24 Hct 39.8 % (40-54) L 12/16/24 05:09 12/16/24 Plt Count 153 K/mm3 (150-450) 12/16/24 05:09 12/16/24 CHEMISTRY Potassium 4.0 mmol/L (3.3-5.1) 12/16/24 05:09 12/16/24 Sodium 139 mmol/L (133-145) 12/16/24 05:09 12/16/24 Magnesium 2.1 mg/dL (1.6-2.6) 09/06/24 07:15 09/06/24 Phosphorus 3.2 mg/dL (2.5-4.9) 09/06/24 07:15 09/06/24 BUN 14 mg/dL (4-19) 12/16/24 05:09 12/16/24 Creatinine 1.06 mg/dL (0.70-1.20) 12/16/24 05:09 12/16/24 Glucose 85 mg/dL (70-99) 12/16/24 05:09 12/16/24 TSH 0.918 uIU/mL (0.358-3.740) 09/11/24 08:48 08/30 12/21 COAG PT 12.3 SECONDS (11.7-14.9) 09/11/24 08:48 Pre-Assessment Diagnosis/Proposed Procedure Planned Operative Procedure(s): LAP CHOLEY IOC UMBILICAL HERNIA REPAIR LIVER BIOPSY 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 When Was Last Pacemaker Check QUESTION #4 FULL TEXT: You/Your Family Experience fever (hyperthermia) with Anesthesia Last Oral Intake Last Oral intake: Last Oral Intake NPO since 23:00 03/17/25 10:57 Meds taken in AM with sips of No 03/17/25 10:57 water? 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 Has anyone observed you stop No 03/03/25 10:05 breathing during sleep? STOP Results Negative 03/03/25 10:05 QUESTION #5 FULL TEXT : Do you snore loudly (louder than talking or can be heard through closeddoors)? 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 Specify any problems Hx of Preganancy in last 3 N/A 03/03/25 10:05 Months Nurse Filling Out Transfusion DSCHRIBER 03/03/25 10:05 & Questions: Date: 03/03/25 03/03/25 10:05 Time: 10:07 03/03/25 10:05 Patient unable to answer at this time (ie. confused, unrespo /Reproduction History /Reproductive History - microbiology teacher: /Reproductive Hx- microbiology teacher Hx Now Gestational Age (in weeks): EDC: Hx Hx Para Hx Section SAB No 03/03/25 10:05 Active Medications Active Medications: Current Medications Generic Name Dose Route Start Last Admin Trade Name Freq PRN Reason Stop Dose Admin Cefazolin Sodium 2 gm/ Sodium 110 mls @ 150 mls/hr 03/17/25 11:30 Chloride IV 03/17/25 12:13 INTRAOP ONE Lactated Ringer's 1,000 mls @ 15 mls/hr 03/17/25 10:45 03/17/25 11:00 IV 15 mls/hr .Q48H RICARDO Administration PFSH Medical History History of biliary stent insertion Elevation of levels of liver transaminase levels Hyperbilirubinemia Overweight (BMI 25.0-29.9) No pertinent past medical history Home Medications ?Medication ?Instructions ?Recorded ?Last Taken ?Type NK 12/31/24 Unknown History Allergy/AdvReac Type Severity Reaction Status Date / Time No Known Allergies Allergy Verified 03/17/25 10:56 Surgical History Hx laparoscopic cholecystectomy History of ERCP Social History Smoking Status: Never smoker alcohol intake: never Review of Systems (Anesthesia) ROS Narrative System reviewed and no additional complaints, except as documented. 03/17/25 1115 drew CEVALLOS> Date _ Kilo Mtz MD Cosigner Signature: Date CC: ~ Signed [facility]05-28-2025 Nuclear medicine Diagnostic study note [facility] Imaging Services [address] [place] [address] Hepatobilliary Imaging MR#: [id number] Acct: [id number] Name: DIANE CONNORS Rep #: [id number] : 1985 M 39 From: Franco Soto MD PCP: AGUILAR Giles Status: JOSE MIGUEL POLO Study:Hepatobilliary Imaging Date of Exam: 02/24/25 Exam# [id number] Ordering Dr: Michela Sal NP PROCEDURE: HEPATOBILLIARY IMAGING 02/24/2025 REASON FOR EXAM: [...] GALLBLADDER SUSPICIOUS FOR ACUTE CHOLECYSTITIS Reading Location: [place] [address] CC: AGUILAR Sal; AGUILAR Arias ~ Conduit Reamer Operator: Signed [facility]03-19-2025 Consult note [facility] Medical Records Department [address] [place] [address] Consultation - Infectious Dx 12/16/24 1613 MR#: [id number] Acct: [id number] Name: DIANE CONNORS Rep #:[id number] : 1985 39 From: Jared melendrez MD PCP: Shira Arias, RETAIL CUSTOMER SERVICE SPECIALIST-C Status:ADM I N Location: [place] [address] Assessment & Plan Assessment/Plan (1) Bacteremia due [...] performed and neg except as noted above. 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 Reading Location: [id number] 12/16/24 1617 Cosigner Signature (if applicable): CC: AGUILAR Arias~ Signed [facility]03-19-2025 Discharge summary Author Francesco Lui [facility] Note Date/Time December 16, 2024 2:1 6pm [facility] Medical Records Department [address] [place] [address] Discharge Summary 12/16/24 1413 MR#: [id number] Acct: [id number] Name: DIANE CONNORS Rep #:[id number] : 1985 39 From: Francesco Love PCP: AGUILAR Giles Status:ADM I N Location: [place] [address] Providers Date of Admission: 12/14/24 Date of Discharge: 12/16/24 Primary Care Physician: AGUILAR Giles Consultations 12/14/24 16:30 Consult: Gastroenterology Routine Consulting Provider: [facility] Reason for Consult: recent ERCP, elevated [...] is a 39-year-old male who presented to [facility] ED on 12/14/2024 with fevers and chills [...] better with IV antibiotic. Patientalso needs lap dexter after control of the infection. Patient said she willmake decision after talking to Dr. Babin whom I informed. 12/16: Leukocytosis has resolved. Patient wants to go home as he asked in the morning in the afternoon. Liver chemistry shows improvement in total and directbilirubin, ALT AST and alkaline phosphatase. AST is normal. Electrolytes in normal range. Patient was seen by ID and maria elena to discharge on Augmentin 875 mg twice [...] % (Auto) 61.0, Lymph % (Auto) 20.8, [place] % (Auto) 13.5 H, Eos % (Auto) [...] Left Blood Culture - Preliminary GNR lactose internet systems administrator 12/14/24 12:25 Blood Culture (Wb) - Anticubital Left Blood Culture - Preliminary GNR lactose internet systems administrator Alpha Hemolytic Streptococcus 12/14/24 12:25 Mucosa - Nose SARS-CoV-2, Influenza & RSV (PCR) - Final Radiography Diagnostic Testing: Radiology Impression Endo Retro Cholangiopancreatogram 12/15/24 17:35 IMPRESSION: Fluoroscopy during ERCP as above. Reading Location: [id number] D/C Instructions DC O2, CPAP, BIPAP Needs [...] Jared Arevalo Instructions Additional Instructions / Restrictions: Wpds-npv-ogxmcqc Tylenol 500 mg every 6 hourly for [...] (Follow- up liver chemistry) Shira Arias NP, RETAIL CUSTOMER SERVICE SPECIALIST-C [Primary Care Provider] - Disposition Disposition (needs filled in before D/C Order can be placed): Home, Self Care Charges/Coding Visit Charges Inpatient E&M: 43815 Disch Hosp >30min 12/16/24 1416 <Electronically signed by Francesco Lui MD> Cosigner Signature (if applicable): CC: AGUILAR Arias; Dr. Camron Shoemaker MD; Dr. Francesco Lui MD; Dr. Jared Arevalo MD; Denys Babin DO~ Signed [facility] Work Phone: 1(247) 576-211803-19-2025 Discharge summary Author Francesco Lui [facility] Note Date/Time December 16, 2024 2:1 3pm [facility] Medical Records Department [address] [place] [address] Instructions for Home/Discharge Instructions 12/16/24 1405 MR#: [id number] Acct: [id number] Name: DIANE CONNORS Rep #:[id number] : 1985 39 From: Francesco Love PCP: [...] Jared Arevalo Instructions Additional Instructions / Restrictions: Fzmx-kwg-igwbmsf Tylenol 500 mg every 6 hourly for [...] (Follow- up liver chemistry) Shira Arias NP, RETAIL CUSTOMER SERVICE SPECIALIST-C [Primary Care Provider] - Disposition Disposition (needs filled in before D/C Order can be placed): Home, Self Care 12/16/24 1413<Electronically signed by Francesco Lui MD>Francesco Lui MD CC: RETAIL CUSTOMER SERVICE SPECIALISTGarrison Arias; Dr. Cruz Arciniega DO; Dr. Camron Shoemaker MD; Dr. Jared Arevalo MD ~ Signed [facility] Work Phone: 1(239) 726-700803-19-2025 Consult note Author Camron Shoemaker [facility] Note Date/Time December 16, 2024 12: 25pm [facility] Medical Records Department [address] [place] [address] Consultation - Surgical 12/16/24 1211 MR#: [id number] Acct: [id number] Name: DIANE CONNORS Rep #:[id number] : 1985 39 From: Camron Love PCP: AGUILAR Giles Status:ADM I N Location: [place] [address] Assessment & Plan Assessment/Plan (1) Choledocholithiasis: PLAN: [...] for recurrence. Given patient's personal experience this ntqmk-fvr-olrllm appears clear to them. Patient's spouse does [...] Shoemaker MD General Surgery Endocrine Surgery Pager: [facility] [address] [place] [address], [address] [place] [address] Office: [phone] HPI Consult Data Date of Consult: 12/16/24 [...] returned to normal when checked through the [facility] system and that is what prompted him to request stent removal from gastroenterology. Gastroenterology had advised against stent removal givenpatient had gallbladder still in place but at patient insistence they proceeded with stent removal. Patient has no significant past medical history aside from the above. He has nohistory of abdominal surgeries. 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 Reading Location: [facility] Charges/Coding Visit Charges Inpatient E&M: 29315 Init Hosp L2 12/16/24 1225 <Electronically signed by Camron Shoemaker MD> Cosigner Signature (if applicable): CC: AGUILAR Arias~ Signed [facility] Work Phone: 1(100) 233-645203-19-2025 Discharge summary [facility] Medical Records Department [address] [place] [address] Discharge Summary 12/16/24 1413 MR#: [id number] Acct: [id number] Name: DIANE CONNORS Rep #:[id number] : 1985 39 From: Francesco Love PCP: AGUILAR Giles Status:ADM I N Location: [place] [address] Providers Date of Admission: 12/14/24 Date of Discharge: 12/16/24 Primary Care Physician: AGUILAR Giles Consultations 12/14/24 16:30 Consult: Gastroenterology Routine Consulting Provider: [facility] Reason for Consult: recent ERCP, elevated [...] is a 39-year-old male who presented to [facility] ED on 12/14/2024 with fevers and chills [...] better with IV antibiotic. Patientalso needs lap dexter after control of the infection. Patient said [...] % (Auto) 61.0, Lymph % (Auto) 20.8, [place] % (Auto) 13.5 H, Eos % (Auto) [...] Left Blood Culture - Preliminary GNR lactose internet systems administrator 12/14/24 12:25 Blood Culture (Wb) - Anticubital Left Blood Culture - Preliminary GNR lactose internet systems administrator Alpha Hemolytic Streptococcus 12/14/24 12:25 Mucosa - Nose SARS-CoV-2, Influenza & RSV (PCR) - Final Radiography Diagnostic Testing: Radiology Impression Endo Retro Cholangiopancreatogram 12/15/24 17:35 IMPRESSION: Fluoroscopy during ERCP as above. Reading Location: [facility] D/C Instructions DC O2, CPAP, BIPAP Needs [...] Jared Arevalo Instructions Additional Instructions / Restrictions: Anfu-vaf-wwagvxu Tylenol 500 mg every 6 hourly for [...] Self Care Charges/Coding Visit Charges Inpatient E&M: 69881 Disch Hosp >30min 12/16/24 1416 Cosigner Signature (if applicable): CC: AGUILAR Arias; Dr. Camron Shoemaker MD; Dr. Francesco Lui MD; Dr. Jared Arevalo MD; Denys Babin DO~ Signed [facility]03-19-2025 Discharge summary [facility] Medical Records Department [address] [place] [address] [place] [address] Instructions for Home/Discharge Instructions 12/16/24 1405 MR#: [id number] Acct: [id number] Name: DIANE CONNORS Rep #:[id number] : 1985 39 From: Francesco Love PCP: [...] Jared Arevalo Instructions Additional Instructions / Restrictions: Zdkn-roc-wszdeep Tylenol 500 mg every 6 hourly for [...] Self Care 12/16/24 1413Psteve Lui MD CC: AGUILAR Arias; Dr. Cruz Arciniega DO; Dr. Camron Shoemaker MD; Dr. Jared Arevalo MD ~ Signed [facility]03-19-20[facility] Consult note [facility] Medical Records Department [address] [place] [address] Consultation - Surgical 12/16/24 1211 MR#: [id number] Acct: [id number] Name: DIANE CONNORS Rep #:[id number] : 1985 39 From: Camron Love PCP: AGUILAR Giles Status:ADM I N Location: [facility] [id number] Assessment & Plan Assessment/Plan (1) Choledocholithiasis: PLAN: [...] that he did not follow through with [facility] order. Upon obtaining laboratories that showed [...] for recurrence. Given patient's personal experience this gnuqq-tgy-eroaiy appears clear to them. Patient's spouse does [...] Shoemaker MD General Surgery Endocrine Surgery Pager: [facility] [address] [place] [address], [facility], [address] [place] [address] Office: [phone] HPI Consult Data Date of Consult: 12/16/24 HPI Narrative Reason for Consultation: Recurrent choledocholithiasis HPI Narrative: DIANE CONNOSR, is a 39 M who is evaluated [...] returned to normal when checked through the [facility] system and that is what prompted him to request stent removal from gastroenterology. Gastroenterology had advised against stent removal givenpatient had gallbladder still in place but at patient insistence they proceeded with stent removal. Patient has no significant past medical history aside from the above. He has nohistory of abdominalsurgeries. 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 Reading Location: [id number] Charges/Coding Visit Charges Inpatient E&M: 76350 Init Hosp L2 12/16/24 1225 Cosigner Signature (if applicable): CC: AGUILAR Arias~ Signed [facility]03-18-2025 Consult note Author Gray López [facility] Note Date/Time December 15, 2024 6:4 5pm [facility] Medical Records Department [address] [place] [address] Anesthesia Postop Eval II 12/15/241844 MR#: [id number] Acct: [id number] Name: DIANE CONNORS Rep #:[id number] : 1985 39 From: Gray López MD PCP: AGUILAR Giles Status:ADM I N Y Race: C Location: [place] [address] 0-1 Anesthesia Postop Eval I Sum Postop [...] MD Cosigner Signature: Date CC: ~ Signed [facility] Work Phone: 1(480) 849-157103-18-2025 Consult note Author Gray López [facility] Note Date/Time December 15, 2024 6:4 4pm [facility] Medical Records Department [address] [place] [address] Anesthesia Postop Eval I 12/15/241842 MR#: [id number] Acct: [id number] Name: KENNEY CONNORSDAMIÁN [place] Rep #:[id number] : 1985 39 From: Gray López MD PCP: AGUILAR Giles Status:ADM I N Y Race: C Location: [place] [address] Anesthesia: Postop Eval I Current Vital Signs [...] MD Cosigner Signature: Date CC: ~ Signed [facility] Work Phone: 1(813) 257-750103-18-2025 Progress note Author Denys Babin [facility] Note Date/Time December 15, 2024 5:3 8pm [facility] Medical Records Department [address] [place] [address] Progress Note 12/15/241733 MR#: [id number] Acct: [id number] Name: DIANE CONNORS Rep #:[id number] : 1985 39 From: Denys Babin DO PCP: ROLY GilesC Status:ADM I N Location: [place] [address] Progress Note I had a long conversation [...] is a 39-year-old male who presented to [facility] ED on 12/14/2024 with fevers and chills [...] ERCP today. . Visit Charges Inpatient E&M: 45048 Subs Hosp L2 12/15/248 <Electronically signed by Denys Babin DO> Denys Babin DO Cosigner Signature (if applicable): CC: ~ Signed [facility] Work Phone: 1(450) 401-861803-18-2025 Radiology Diagnostic study note [facility] Imaging Services [address] [place] [address] ERCP Biliary/Pancreas MR#: [id number] Acct: [id number] Name: DIANE CONNORS Rep #: [id number] : 1985 M 39 From: Jadiel Lawson MD PCP: AGUILAR Giles Status: ADM I N Study:ERCP Biliary/Pancreas Date of Exam: 12/15/24 Exam# [id number] Ordering Dr: Kayleigh Babin DO PROCEDURE: ERCP [...] Fluoroscopy during ERCP as above. Reading Location: [id number] CC: AGUILAR Arias; DO Tanya Pierre Conduit Reamer Operator: Signed [facility]03-18-2025 Consult note [facility] Medical Records Department [address] [place] [address] Anesthesia Postop Eval II 12/15/24 1845 MR#: [id number] Acct: [id number] Name: DIANE CONNORS Rep #:[id number] : 1985 39 From: Gray López MD PCP: AGUILAR Giles Status:ADM I N Y Race: C Location: [place] [address] 0-1 Anesthesia Postop Eval I Sum Postop [...] No Vomiting: No Complications Anesthesia Complication: No 12/15/24 184 MD> Date _ Gray López MD Cosigner Signature: Date CC: ~ Signed [facility]03-18-2025 Consult note [facility] Medical Records Department [address] [place] [address] Anesthesia Postop Eval I 12/15/24 1843 MR#: [id number] Acct: [id number] Name: DORYDIANE A Rep #:[id number] : 1985 39 From: Gray López MD PCP: AGUILAR Giles Status:ADM I N Y Race: C Location: [place] [address] 0-1 Anesthesia: Postop Eval I Current Vital [...] Postop Eval 1 completed: Yes 12/15/24 1844 > Date _ Gray López MD Cosigner Signature: Date CC: ~ Signed [facility]03-18-2025 Consult note Author Gray Onealawaja [facility] Note Date/Time December 15, 2024 4:1 9pm [facility] Medical Records Department [address] [place] [address] Pre-Anesthesia Evaluation 12/15/24 1551 MR#: [id number] Acct: [id number] Name: DIANE CONNORS Rep #:[id number] : 1985 39 From: Gray López MD PCP: AGUILAR Giles Status:ADM I N Y Race: C Location: [place] [address] 0-1 ASA Classification* ASA Classification ASA Classification: [...] Procedure(s): ERCP 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 History - microbiology teacher: Anesthesia History - microbiology teacher Hx Hospitalization Yes: 08/2024 ERCP 12/09/24 [...] take am of surgery PONV PONV - microbiology teacher: PONV - microbiology teacher Female HX of Motion Sickness HX of N/V After Surgery Non-Smoker Duration of Surgery greater than 60 minutes Number of Risk Factors PONV Score Height & Weight Height & Weight: Anesthesia: Height & Weight Height 5 ft 10.08 in 12/15/24 14:00 Weight: 93 kg 12/15/24 14:00 Body Mass Index (BMI) 29.3 12/15/24 14:00 Respiratory Assessment Respiratory Assessment - microbiology teacher: Respiratory Tract Infection Hx - microbiology teacher Hx Respiratory Tract Infection No 12/14/24 21:38 STOP Sleep Apnea STOP Sleep Apnea - microbiology teacher: STOP Sleep Apnea - microbiology teacher Hx Hypertension No 12/14/24 16:44 Hx [...] Tobacco Use History Tobacco Use History - microbiology teacher: Tobacco Use History - microbiology teacher Tobacco Use Smoking Status Never smoker 12/14/24 16:44 Hx Tobacco Use No 12/14/24 16:44 Years Smoking Packs Smoked per Day Smoking Cessation Date was within the last 15 years Hx Smoking Cessation Date Hx Smoking Cessation Counseling Hematologic Medial History Hematologic Hx - microbiology teacher: 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 Hx of Blood Transfusion No 12/14/24 16:44 [...] confused, unrespo /Reproduction History /Reproductive History - microbiology teacher: /Reproductive Hx- microbiology teacher Hx Now No 12/14/24 21:38 Gestational [...] Ml Syringe IV UD PRN SALINE FLUSH [facility] Medical History Overweight (BMI 25.0-29.9) No pertinent [...] regular rhythm, no murmurs and diaphoretic 12/15/24 1617 <Electronically signed by Gray López MD> Date _ Gray López MD Cosigner Signature: Date CC: ~ Signed [facility] Work Phone: 1(736) 877-918703-18-2025 Procedure note [facility] Medical Records Department [address] [place] [address] ERCP Report MR#: [id number] Acct: [id number] Name: DIANE CONNORS Rep #:[id number] : 1985 39 From: Denys Babin DO [...] hours 12 minutes 6 seconds Findings: The physics faculty member film was normal. The esophagus was successfully [...] bile duct. Procedure Code(s): --- Professional --- 27285, Endoscopic retrograde cholangiopancreatography (ERCP); with placement of endoscopic stent into biliary or pancreatic duct, including pre- and post-dilation and guide wire passage, when performed, including sphincterotomy, when performed, each stent 25222, Endoscopic retrograde cholangiopancreatography (ERCP); with removal of calculi/debris from biliary/pancreatic duct(s) 65111, 26, Endoscopic catheterization of the biliary ductal system, radiological supervision and interpretation CPT copyright 2021 [employer]. All rights reserved. The codes documented in this report are preliminary and upon travel assistant review may be revised to meet current compliance requirements. Denys Babin DO 12/15/2024 6:13:06 PM This report has been signed electronically. Number of Addenda: 0 Note Initiated On: 12/15/2024 5:32 PM 12/15/241812 Date _ Denys Babin DO Cosigner Signature: Date (if indicated) CC: AGUILAR Arias; Denys Babin DO ~ Date Dictated: 12/15/24 1732 Date Transcribed: Conduit Reamer Operator: RF Signed [facility]03-18-2025 Procedure note [facility] Medical Records Department [address] [place] [address] Operative Report - CC Letter MR#: [id number] Acct: [id number] Name: DIANE CONNORS Rep #:[id number] : 1985 39 From: Denys Babin DO PCP: AGUILAR Giles Status:ADM I N 12/15/2024 Shira Arias Re : ERCP procedure for Diane Dory Dear [place] This procedure was performed on Sunday, December [...] been signed electronically. 12/15/241812 Date _ Denys Friend DO Marrero Signature: Date (if indicated) CC: RETAIL CUSTOMER SERVICE SPECIALISTGarrison Arias; Dr. Cruz Arciniega DO; Dr. Francesco Lui MD ~ Date Dictated: 12/15/24 1732 Date Transcribed: Conduit Reamer Operator: RF Signed [facility]03-18-2025 Progress note [facility] Medical Records Department [address] [place] [address] Progress Note 12/15/241733 MR#: [id number] Acct: [id number] Name: DOROTHY CONNORSKelly Norwood Rep #:[id number] : 1985 39 From: Denys Babin DO PCP: AGUILAR Giles Status:ADM I N Location: [place] [address] Progress Note I had a long conversation [...] is a 39-year-old male who presented to [facility] ED on 12/14/2024 with fevers and chills [...] ERCP today. . Visit Charges Inpatient E&M: 17465 Subs Hosp L2 12/15/24 9855 Denys Friend DO Cosigner Signature (if applicable): CC: ~ Signed [facility]03-18-2025 Consult note [facility] Medical Records Department [address] [place] [address] Pre-Anesthesia Evaluation 12/15/24 1551 MR#: [id number] Acct: [id number] Name: DIANE CONNORS Rep #:[id number] : 1985 39 From: Gray López MD PCP: AGUILAR Giles Status:ADM I N Y Race: C Location: [place] [address] 0-1 ASA Classification* ASA Classification ASA Classification: [...] Procedure(s): ERCP 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 History - microbiology teacher: Anesthesia History - microbiology teacher Hx Hospitalization Yes: 08/2024 ERCP 12/09/24 [...] take am of surgery PONV PONV - microbiology teacher: PONV - microbiology teacher Female HX of Motion Sickness HX of N/V After Surgery Non-Smoker Duration of Surgery greater than 60 minutes Number of Risk Factors PONV Score Height & Weight Height & Weight: Anesthesia: Height & Weight Height 5 ft 10.08 in 12/15/24 14:00 Weight: 93 kg 12/15/24 14:00 Body Mass Index (BMI) 29.3 12/15/24 14:00 Respiratory Assessment Respiratory Assessment - microbiology teacher: Respiratory Tract Infection Hx - microbiology teacher Hx Respiratory Tract Infection No 12/14/24 21:38 STOP Sleep Apnea STOP Sleep Apnea - microbiology teacher: STOP Sleep Apnea - microbiology teacher Hx Hypertension No 12/14/24 16:44 Hx [...] Tobacco Use History Tobacco Use History - microbiology teacher: Tobacco Use History - microbiology teacher Tobacco Use Smoking Status Never smoker 12/14/24 16:44 Hx Tobacco Use No 12/14/24 16:44 Years Smoking Packs Smoked per Day Smoking Cessation Date was within the last 15 years Hx Smoking Cessation Date Hx Smoking Cessation Counseling Hematologic Medial History Hematologic Hx - microbiology teacher: 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 Hx of Blood Transfusion No 12/14/24 16:44 [...] confused, unrespo /Reproduction History /Reproductive History - microbiology teacher: /Reproductive Hx- microbiology teacher Hx Now No 12/14/24 21:38 Gestational [...] MD Cosigner Signature: Date CC: ~ Signed [facility]03-18-2025 Progress note Author Francesco Lui [facility] Note Date/Time December 15, 2024 2:1 6pm [facility] Medical Records Department [address] [place] [address] Progress Note - Hospitalist 12/15/24 08 MR#: [id number] Acct: [id number] Name: DIANE CONNORS Rep #:[id number] : 1985 39 From: Francesco Love PCP: AGUILAR Giles Status:ADM I N Location: [place] [address] Reason for Visit Reason for Visit: Diagnoses [...] 90.5 H, Lymph % (Auto) 3.2 L, [place] % (Auto) 4.7, Eos % (Auto) 0.1, [...] Clarity Clear, Urine pH 7.0, Ur Specific Girard 1.005, Urine Protein 30 H, Urine Glucose [...] the head of the pancreas. [facility] 12/14/24 12:19 IMPRESSION: 1. Mild left basilar airspace disease favorable for atelectasis/scarring howeverthis is not definite in the absence of prior exams to confirm stability. Correlate for mild pneumonia. 2. Additional description as above. Reading Location: [facility] Physical Exam Narrative Seen and examined. Patient [...] is a 39-year-old male who presented to [facility] ED on 12/14/2024 with fevers and chills [...] better with IV antibiotic. Patientalso needs lap dexter after control of the infection. Patient said [...] is 35 minutes. Visit Charges Inpatient E&M: 99037 Subs Hosp L3 12/15/24 8114 <Electronically signed by Francesco Lui MD> Cosigner Signature (if applicable): CC: ~ Signed [facility] Work Phone: 1(347) 242-288203-18-2025 Progress note [facility] Medical Records Department [address] [place] [address] Progress Note - Hospitalist 12/15/24 08 MR#: [id number] Acct: [id number] Name: DIANE CONNORS Rep #:[id number] : 1985 39 From: Francesco Love PCP: ROLY GilesC Status:ADM I N Location: [place] [address] Reason for Visit Reason for Visit: Diagnoses [...] 90.5 H, Lymph % (Auto) 3.2 L, [place] % (Auto) 4.7, Eos % (Auto) 0.1, [...] Clarity Clear, Urine pH 7.0, Ur Specific Girard 1.005, Urine Protein 30 H, Urine Glucose [...] the head of the pancreas. Reading Location: [facility] Chest X-Ray 12/14/24 12:19 IMPRESSION: 1. Mild left basilar airspace disease favorable for atelectasis/scarring howeverthis is not definite in the absence of prior exams to confirm stability. Correlate for mild pneumonia. 2. Additional description as above. Reading Location: [facility] Physical Exam Narrative Seen and examined. Patient [...] is a 39-year-old male who presented to [facility] ED on 12/14/2024 with fevers and chills [...] better with IV antibiotic. Patientalso needs lap dexter after control of the infection. Patient said [...] medical record, discussion with the and Dr. Babni, review of labs and imaging is 35 minutes. Visit Charges Inpatient E&M: 68342 Subs Hosp L3 12/15/24 1416 Cosigner Signature (if applicable): CC: ~ Signed [facility]03-17-2025 Discharge summary Author Petar Barrera [facility] Note Date/Time December 14, 2024 3:4 8pm [facility] Medical Records Department [address] [place] [address] Emergency Department Summary 12/14/24 MR#: [id number] Acct: [id number] Name: DIANE CONNORS Rep #:[id number] : 1985 39 From: Petar Parra PCP: AGUILAR Giles Status:ADM I N Location: [address] History of Present Illness Chief Complaint: [...] History obtained from others: the patient's Consults: Local Tanker Truck Driver (Dr. Babin), internal medicine (Dr. Arciniega) MDM [...] for reoccurring hepatobiliary production. Discussed with the dehydrator tender (Dr. Babin) recommended admission with broad-spectrum antibiotics for ERCP and possible stent placement. Saw the patient broad-spectrum antibiotics given white count, fever and concern for infectious cholestasis. Discussed with hospitalist agreed admit the patient to [facility]. The patient and/or family, caregivers express [...] 4. Elevated liver enzymes [facility] This note was generated with [employer] Technology[employer] software. It may contain incorrect words, spelling, [...] 90.5 H Lymph % (Auto) 3.2 L [place] % (Auto) 4.7 Eos % (Auto) 0.1 [...] Clarity Clear Urine pH 7.0 Ur Specific Girard 1.005 Urine Protein 30 H Urine Glucose [...] the head of the pancreas. Reading Location: [facility] Chest X-Ray 12/14/24 12:19 IMPRESSION: 1. Mild left basilar airspace disease favorable for atelectasis/scarring however this is not definite in the absence of prior exams to confirm stability. Correlate for mild pneumonia. 2. Additional description as above. Reading Location: [facility] Discharge Plan Triage Chief Complaint: Fever ED Provider: Petar Barrera Dx/Rx/DC Orders Primary Care Provider: Shira Arias NP What to do if you have Problems For any increased pain, shortness of breath, bleeding, nausea or vomiting, chest pain, or any unexpected problems, contact your Primary Care Provider. Call [facility] ([phone]) or report to the closest Emergency Room. Call 911 if necessary. 12/14/24 1548 <Electronically signed by Petar Barrera DO> Cosigner Signature (if applicable): CC: RETAIL CUSTOMER SERVICE SPECIALIST-C Shira Arais ~ Signed [facility] Work Phone: 1(351) 695-456003-17-2025 History and physical note Author Cruz Arciniega [facility] Note Date/Time December 14, 2024 3:1 2pm [facility] Medical Records Department [address] [place] [address] H&P Exam - Hospitalist 12/14/24 1445 MR#: [id number] Acct: [id number] Name: DIANE CONNORS Rep #:[id number] : 1985 39 From: Cruz esposito DO PCP: AGUILAR Giles Status:REG E R Location: ED HPI - General General Date of Admission: 12/14/24 Date of Service: 12/14/24 Chief Complaint: Fevers and chills HPI Narrative DIANE CONNORS, is a 39 M who presented to [facility] ED on 12/14/2024 with fevers and chills. [...] any other acute concerns at this time. [facility] Medical History Overweight (BMI 25.0-29.9) No pertinent [...] 90.5 H, Lymph % (Auto) 3.2 L, [place] % (Auto) 4.7, Eos % (Auto) 0.1, [...] Clarity Clear, Urine pH 7.0, Ur Specific Girard 1.005, Urine Protein 30 H, Urine Glucose [...] the head of the pancreas. Reading Location: [facility] Chest X-Ray 12/14/24 12:19 IMPRESSION: 1. Mild left basilar airspace disease favorable for atelectasis/scarring howeverthis is not definite in the absence of prior exams to confirm stability. Correlate for mild pneumonia. 2. Additional description as above. Reading Location: [id number] Assessment & Plan Assessment/Plan (1) Hyperbilirubinemia: (2) Elevation of levels of liver transaminase levels: PLAN: Plan Patient is a 39-year-old male who presented to [facility] ED on 12/14/2024 with fevers and chills after recent ERCP. 1. 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 Admit under inpatient status to [facility]. GI consulted. See HPI for further [...] 55 minutes. Charges/Coding Visit Charges Inpatient E&M: 17338 Init Hosp L2 12/14/24 1512 <Electronically signed by Cruz Arciniega DO> Cosigner Signature (if applicable): CC: AGUILAR Arias; Dr. Cruz Arciniega DO~ Signed [facility] Work Phone: 1(499) 338-372803-17-2025 Discharge summary [facility] Medical Records Department [address] [place] [address] Emergency Department Summary 12/14/24 MR#: [id number] Acct: [id number] Name: DIANE CONNORS Rep #:[id number] : 1985 39 From: Petar Parra PCP: AGUILAR Giles Status:ADM I N Location: [address] History of Present Illness Chief Complaint: [...] History obtained from others: the patient's Consults: Local Tanker Truck Driver (Dr. Babin), internal medicine (Dr. Arciniega) MDM [...] for reoccurring hepatobiliary production. Discussed with the dehydrator tender (Dr. Babin) recommended admission with broad-spectrum antibiotics for ERCP and possible stent placement. Saw the patient broad-spectrum antibiotics given white count, fever and concern for infectious cholestasis. Discussed with hospitalist agreed admit the patient to [facility]. The patient and/or family, caregivers express [...] 4. Elevated liver enzymes Dispo: Admit to [facility] discharge This note was generated with [employer] dictation software. It may contain incorrect words, [...] 90.5 H Lymph % (Auto) 3.2 L [place] % (Auto) 4.7 Eos % (Auto) 0.1 [...] Clarity Clear Urine pH 7.0 Ur Specific Girard 1.005 Urine Protein 30 H Urine Glucose [...] the head of the pancreas. Reading Location: [facility] Chest X-Ray 12/14/24 12:19 IMPRESSION: 1. Mild left basilar airspace disease favorable for atelectasis/scarring however this is not definite in the absence of prior exams to confirm stability. Correlate for mild pneumonia. 2. Additional description as above. Reading Location: [facility] Discharge Plan Triage Chief Complaint: Fever ED Provider: Petar Barrera Dx/Rx/DC Orders Primary Care Provider: Shira Arias NP What to do if you have Problems For any increased pain, shortness of breath, bleeding, nausea or vomiting, chest pain, or any unexpected problems, contact your Primary Care Provider. Call [facility] ([phone]) or report to the closest Emergency Room. Call 911 if necessary. 12/14/24 7660 Cosigner Signature (if applicable): CC: AGUILAR Arias ~ Signed [facility]03-17-2025 History and physical note [facility] Medical Records Department [address] [place] [address] H&P Exam - Hospitalist 12/14/24 1445 MR#: [id number] Acct: [id number] Name: DIANE CONNORS Rep #:[id number] : 1985 39 From: Cruz esposito DO PCP: AGUILAR Giles Status:REG E R Location: ED HPI - General General Date of Admission: 12/14/24 Date of Service: 12/14/24 Chief Complaint: Fevers and chills HPI Narrative DIANE CONNORS, is a 39 M who presented to [facility] ED on 12/14/2024 with fevers and chills. [...] any other acute concerns at this time. [facility] Medical History Overweight (BMI 25.0-29.9) No pertinent [...] 90.5 H, Lymph % (Auto) 3.2 L, [place] % (Auto) 4.7, Eos % (Auto) 0.1, [...] Clarity Clear, Urine pH 7.0, Ur Specific Girard 1.005, Urine Protein 30 H, Urine Glucose [...] the head of the pancreas. Reading Location: [facility] Chest X-Ray 12/14/24 12:19 IMPRESSION: 1. Mild left basilar airspace disease favorable for atelectasis/scarring howeverthis is not definite in the absence of prior exams to confirm stability. Correlate for mild pneumonia. 2. Additional description as above. Reading Location: [id number] Assessment & Plan Assessment/Plan (1) Hyperbilirubinemia: (2) Elevation of levels of liver transaminase levels: PLAN: Plan Patient is a 39-year-old male who presented to [facility] ED on 12/14/2024 with fevers and chills after recent ERCP. 1. 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 Admit under inpatient status to [facility]. GI consulted. See HPI for further [...] 55 minutes. Charges/Coding Visit Charges Inpatient E&M: 82023 Init Hosp L2 12/14/24 1512 Cosigner Signature (if applicable): CC: AGUILAR Arias; Dr. Cruz Arciniega, ~ Signed [facility]03-17-2025 Discharge summary [facility] Note Date/Time December 14, 2024 3:4 8pm [facility] Medical Records Department [address] [place] [address] Emergency Department Summary 12/14/24 MR#: [id number] Acct: [id number] Name: DIANE CONNORS Rep #:[id number] : 1985 39 From: Petar Parra PCP: AGUILAR Giles Status:ADM I N Location: [address] History of Present Illness Chief Complaint: [...] History obtained from others: the patient's Consults: Local Tanker Truck Driver (Dr. Babin), internal medicine (Dr. Arciniega) MDM [...] for reoccurring hepatobiliary production. Discussed with the dehydrator tender (Dr. Babin) recommended admission with broad-spectrum antibiotics for ERCP and possible stent placement. Saw the patient broad-spectrum antibiotics given white count, fever and concern for infectious cholestasis. Discussed with hospitalist agreed admit the patient to [facility]. The patient and/or family, caregivers express [...] 4. Elevated liver enzymes Dispo: Admit to [facility] discharge This note was generated with StudyMax dictation software. It may contain incorrect words, [...] 90.5 H Lymph % (Auto) 3.2 L [place] % (Auto) 4.7 Eos % (Auto) 0.1 [...] Clarity Clear Urine pH 7.0 Ur Specific Girard 1.005 Urine Protein 30 H Urine Glucose [...] the head of the pancreas. [facility] Chest X-[facility] 12/14/24 12:19 IMPRESSION: 1. Mild left basilar airspace disease favorable for atelectasis/scarring however this is not definite in the absence of prior exams to confirm stability. Correlate for mild pneumonia. 2. Additional description as above. Reading Location: [facility] Discharge Plan Triage Chief Complaint: Fever ED Provider: Petar Barrera Dx/Rx/DC Orders Primary Care Provider: Shira Arias NP What to do if you have Problems For any increased pain, shortness of breath, bleeding, nausea or vomiting, chest pain, or any unexpected problems, contact your Primary Care Provider. Call [facility] ([phone]) or report to the closest Emergency Room. Call 911 if necessary. 12/14/24 1548 <Electronically signed by Petar Barrera DO> Cosigner Signature (if applicable): CC: RETAIL CUSTOMER SERVICE SPECIALIST-C Shira Arias ~ Signed [facility] Work Phone: 1(738) 381-187903-17-2025 Radiology Diagnostic study note [facility] Imaging Services [address] [place] [address] Chest PA and Lateral MR#: [id number] Acct: [id number] Name: DIANE CONNORS Rep #: [id number] : 1985 M 39 From: Lily Holt MD PCP: Shira Arias RETAIL CUSTOMER SERVICE SPECIALIST-C Status: REG E R Study:Chest PA and Lateral Date of Exam: 12/14/24 Exam# [id number] Ordering Dr: Chela Barrera DO PROCEDURE: CHEST [...] 2. Additional description as above. Reading Location: [id number] CC: AGUILAR Arias; Dr. Petar Barrera DO ~ Conduit Reamer Operator: Signed [facility]03-17-2025 Radiology Diagnostic study note [facility] Imaging Services [address] [place] [address] Abdomen/Pelvis W IV Cont ONLY MR#: [id number] Acct: [id number] Name: DIANE CONNORS Rep #: [id number] : 1985 M 39 From: Franco Soto MD PCP: AGUILAR Giles Status: PRE E R Study:Abdomen/Pelvis W IV Cont ONLY Date of E xam: 12/14/24 Exam# [id number] Ordering Dr: Chela Barrera DO PROCEDURE: ABDOMEN/PELVIS [...] the head of the pancreas. Reading Location: [place] [address] CC: AGUILAR Arias; Dr. Petar Barrera, DO ~ Conduit Reamer Operator: Signed [facility]03-14-2025 Consult note [facility] Medical Records Department [address] [place] [address] Anesthesia Postop Eval II 12/11/24 1520 MR#: [id number] Acct: [id number] Name: DIANE CONNORS Rep #:[id number] : 1985 39 From: Rafael Hooper MD PCP: AGUILAR Giles Status:REG S DC Y Race: C Location: [place] [address] Anesthesia Postop Eval I Sum Postop Eval [...] 1520 > Date _ Rafael Hooper MD [facility] Signature: Date CC: ~ Signed [facility]03-14-2025 Radiology Diagnostic study note [facility] Imaging Services [address] [place] [address] ERCP Biliary/Pancreas MR#: [id number] Acct: [id number] Name: DIANE CONNORS Rep #: [id number] : 1985 M 39 From: Franco Soto MD PCP: AGUILAR Giles Status: REG S DC Study:ERCP Biliary/Pancreas Date of Exam: 12/11/24 Exam# [id number] Ordering Dr: Kayleigh Babin DO PROCEDURE: ERCP BILIARY/PANCREAS REASON FOR EXAM: ERCP TECHNIQUE: An ERCP was performed by the dehydrator tender. Fluoroscopic services were provided. COMPARISON: None. FINDINGS: A stent is seen on the original images. Following this, there is cannulation ofthe common bile duct. Contrast was injected. No filling defect is seen. RAD/ERCP Biliary/Pancreas IMPRESSION: Biliary stent removal. Reading Location: [place] [address] CC: AGUILAR Arias; DO Tanya Pierre Conduit Reamer Operator: Signed [facility]03-14-2025 Consult note Author Rafeal Hooper [facility] Note Date/Time December 11, 2024 1:0 0pm [facility] Medical Records Department [address] [place] [address] Pre-Anesthesia Evaluation 12/11/24 1259 MR#: [id number] Acct: [id number] Name: DIANE CONNORS Rep #:[id number] : 1985 39 From: Rafael Hooper MD PCP: Shira Lorson, RETAIL CUSTOMER SERVICE SPECIALIST-C Status:REG S DC Y Race: C Location: [place] [address]- ASA Classification* ASA Classification ASA Classification: 2 [...] Procedure(s): ERCP 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 History - microbiology teacher: Anesthesia History - microbiology teacher Hx Hospitalization Yes: 08/2024 ERCP 12/09/24 [...] take am of surgery PONV PONV - microbiology teacher: 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 - microbiology teacher Female No 12/09/24 10:19 HX of [...] 09/11/24 08:02 Respiratory Assessment Respiratory Assessment - microbiology teacher: Respiratory Tract Infection Hx - microbiology teacher Hx Respiratory Tract Infection No 12/09/24 10:19 STOP Sleep Apnea STOP Sleep Apnea - microbiology teacher: STOP Sleep Apnea - microbiology teacher Hx Hypertension No 12/09/24 10:19 Hx [...] Tobacco Use History Tobacco Use History - microbiology teacher: Tobacco Use History - microbiology teacher Tobacco Use Smoking Status Never smoker 12/09/24 10:19 Hx Tobacco Use No 12/09/24 10:19 Years Smoking Packs Smoked per Day Smoking Cessation Date was within the last 15 years Hx Smoking Cessation Date Hx Smoking Cessation Counseling Hematologic Medial History Hematologic Hx - microbiology teacher: 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 12/11/24 1300 <Electronically signed by Rafael Hooper MD > Date _ Rafael Hooper MD Cosigner Signature: Date CC: ~ Signed [facility] Work Phone: 1(783) 858-527803-14-2025 History and physical note Author Denys Babin [facility] Note Date/Time December 11, 2024 12: 52pm [facility] Medical Records Department [address] [place] [address] History & Physical Exam 12/11/24 1250 MR#: [id number] Acct: [id number] Name: DIANE CONNORS Rep #:[id number] : 1985 39 From: Denys Babin DO PCP: Shira Arias NP-C Status:REG S DC Location: [place] [address] HPI - General General Date of Admission: 12/11/24 Date of Service: 12/11/24 Chief Complaint: stent removal HPI Narrative DIANE CONNORS, is a 39 M who presents for biliary stent removal. [facility] inpatient 12.6.24-12.9.24- Choledocholithiasis with severe jaundice, small gall stone removed from bile duct. MRCP only found cholelithiasis and a biliary stent in place. Pt was referred to general surgery for poss. cholecystectomy. Ptstates he is well since the hospital visit. Is not having any abdominal pain, loss of appetite, fatigue or changes in bowels. [facility] Medical History Overweight (BMI 25.0-29.9) No pertinent [...] Signature (if applicable): CC: AGUILAR Arias; Denys Babin, ~ Signed [facility] Work Phone: 1(105) 659-496203-14-2025 Evaluation note* Diagnosis Onset Date Resolution Status [...] 2024 10:55am Jaundice acute December 31 10:55am [facility] Work Phone: 1(142) 726-692803-14-2025 Evaluation note* Diagnosis Onset Date Resolution Status [...] 2024 10:55am Jaundice acute December 31 10:55am Status post laparoscopic cholecystectomy acute March 17, 2025 3:40pm [facility] Work Phone: 1(590) 375-178503-14-2025 Evaluation note* Diagnosis Onset Date Resolution Status [...] 2024 10:55am Jaundice acute December 31 10:55am Status post laparoscopic cholecystectomy acute March 17, 2025 3:40pm Status post laparoscopic cholecystectomy acute March 25, 2025 1:05pm [facility] Work Phone: 1(798) 263-422303-14-2025 Evaluation note* Diagnosis Onset Date Resolution Status Admit Date Cholelithiases resolved November 12:28pm Hyperbilirubinemia inactive December 11, 2024 12:28pm Jaundice inactive December 11 12:28pm Choledocholithiasis resolved December 14, 2024 2:45pm Bacteremia due to Gram-negat daniele bacteria inactive December 14, 2024 2:45pm Elevation of levels of liver transaminase levels inactive December 14, 2024 2:45pm Hyperbilirubinemia inactive December 14, 2024 2:45pm Choledocholithiasis resolved December 31, 2024 9:50am Hyperbilirubinemia inactive December 31, 2024 9:50am Cholelithiases resolved December 31, 2024 10:55am Jaundice inactive December 31 10:55am Status post laparoscopic cholecystectomy acute March 17, 2025 3:40pm Status post laparoscopic cholecystectomy acute March 25, 2025 1:05pm [facility] Work Phone: 1(217) 302-934503-14-2025 Evaluation note* Diagnosis Onset Date Resolution Status Admit Date Cholelithiases resolved November 12:28pm Hyperbilirubinemia inactive December 11, 2024 12:28pm Jaundice inactive December 11 12:28pm Choledocholithiasis resolved December 14, 2024 2:45pm Bacteremia due to Gram-negat daniele bacteria inactive December 14, 2024 2:45pm Elevation of levels of liver transaminase levels inactive December 14, 2024 2:45pm Hyperbilirubinemia inactive December 14, 2024 2:45pm Choledocholithiasis resolved December 31, 2024 9:50am Hyperbilirubinemia inactive December 31, 2024 9:50am Cholelithiases resolved December 31, 2024 10:55am Jaundice inactive December 31 10:55am Status post laparoscopic cholecystectomy acute March 17, 2025 3:40pm Status post laparoscopic cholecystectomy acute March 25, 2025 1:05pm Cholecystitis acute March 31, 025 1:58pm Status post laparoscopic cholecystectomy acute March 31, 2025 1:58pm [facility] Work Phone: 1(405) 488-632603-14-2025 Consult note [facility] Medical Records Department [address] [place] [address] Anesthesia Postop Eval I 12/11/24 1426 MR#: [id number] Acct: [id number] Name: DIANE CONNORS Rep #:[id number] : 1985 39 From: Hipolito Rasheed PCP: AGUILAR Giles Status:REG S DC Y Race: C Location: [place] [address] Anesthesia: Postop Eval I Current Vital Signs [...] document: Postop Eval 1 completed: Yes 12/11/24 1427 > Date _ Hipolito Marrero Signature: Date CC: ~ Signed [facility]03-14-2025 Procedure note [facility] Medical Records Department [address] [place] [address] ERCP Report MR#: [id number] Acct: [id number] Name: DIANE CONNORS Rep #:[id number] : 1985 39 From: Denys Babin DO [...] hours 15 minutes 9 seconds Findings: The physics faculty member film was normal. The esophagus was successfully [...] Recommendation: Cholecystectomy Procedure Code(s): --- Professional --- 31928, Endoscopic retrograde cholangiopancreatography (ERCP); with removal of foreign body(s) or stent(s) from biliary/pancreatic duct(s) 99417, Endoscopic retrograde cholangiopancreatography (ERCP); with removal of calculi/debris from biliary/pancreatic duct(s) 14031, Endoscopic retrograde cholangiopancreatography (ERCP); with sphincterotomy/papillotomy 05000, 26, Endoscopic catheterization of the biliary ductal system, radiological supervision and interpretation CPT copyright 2021 [employer]. All rights reserved. The codes documented in this report are preliminary and upon travel assistant review may be revised to meet current compliance requirements. Denys Babin DO 12/11/2024 2:18:31 PM This report has been signed electronically. Number of Addenda: 0 Note Initiated On: 12/11/2024 1:30 PM 12/11/24 141 Date _ Denys Abel Signature: Date (if indicated) CC: RETAIL CUSTOMER SERVICE SPECIALISTGarrison Arias; Denys Babin DO ~ Date Dictated: 12/11/24 1330 Date Transcribed: Conduit Reamer Operator: RF Signed [facility]03-14-2025 Procedure note [facility] Medical Records Department [address] [place] [address] Operative Report - CC Letter MR#: [id number] Acct: [id number] Name: DIANE CONNORS Enma Rep #:[id number] : 1985 39 From: Denys Babin DO [...] me at . Sincerely, Denys Babin DO 12/11/2024 2:18:31 PM This report has been signed electronically. 12/11/24 141 Date _ Denys Friend DO Cosigner Signature: Date (if indicated) CC: ELLI-Marli Arias; Denys Olaf, DO ~ Date Dictated: 12/11/24 1330 Date Transcribed: Conduit Reamer Operator: RF Signed [facility]03-14-2025 Consult note [facility] Medical Records Department [address] [place] [address] Pre-Anesthesia Evaluation 12/11/24 1259 MR#: [id number] Acct: [id number] Name: DIANE CONNORS Rep #:[id number] : 1985 39 From: Rafael Hooper MD PCP: AGUILAR Giles Status:REG S DC Y Race: C Location: [place] [address] ASA Classification* ASA Classification ASA Classification: 2 [...] Procedure(s): ERCP 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 History - microbiology teacher: Anesthesia History - microbiology teacher Hx Hospitalization Yes: 08/2024 ERCP 12/09/24 [...] take am of surgery PONV PONV - microbiology teacher: PONV - microbiology teacher Female No 12/09/24 10:19 HX of [...] 09/11/24 08:02 Respiratory Assessment Respiratory Assessment - microbiology teacher: Respiratory Tract Infection Hx - microbiology teacher Hx Respiratory Tract Infection No 12/09/24 10:19 STOP Sleep Apnea STOP Sleep Apnea - microbiology teacher: STOP Sleep Apnea - microbiology teacher Hx Hypertension No 12/09/24 10:19 Hx [...] Tobacco Use History Tobacco Use History - microbiology teacher: Tobacco Use History - microbiology teacher Tobacco Use Smoking Status Never smoker 12/09/24 10:19 Hx Tobacco Use No 12/09/24 10:19 Years Smoking Packs Smoked per Day Smoking Cessation Date was within the last 15 years Hx Smoking Cessation Date Hx Smoking Cessation Counseling Hematologic Medial History Hematologic Hx - microbiology teacher: 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 Hx of Blood Transfusion No 12/09/24 10:19 [...] confused, unrespo /Reproduction History /Reproductive History - microbiology teacher: /Reproductive Hx- microbiology teacher Hx Now No 12/09/24 10:19 Gestational Age (in weeks): EDC: Hx Hx Para Hx Section SAB No 12/09/24 10:19 [facility] Medical History Overweight (BMI 25.0-29.9) No pertinent [...] Rafael Marrero Signature: Date CC: ~ Signed [facility]03-14-2025 History and physical note [facility] Medical Records Department [address] [place] [address] History & Physical Exam 12/11/24 1250 MR#: [id number] Acct: [id number] Name: DIANE CONNORS Rep #:[id number] : 1985 39 From: Denys Babin DO PCP: AGUILAR Giles Status:REG S DC Location: [place] [address] HPI - General General Date of Admission: 12/11/24 Date of Service: 12/11/24 Chief Complaint: stent removal HPI Narrative DIANE CONNORS, is a 39 M who presents for biliary stent removal. [facility] inpatient .03.23-12.9.24- Choledocholithiasis with severe jaundice, small gall stone removed from bile duct. MRCP only found cholelithiasis and a biliary stent in place. Pt was referred to general surgery for poss. cholecystectomy. Ptstates he is well since the hospital visit. Is not having any abdominal pain, loss of appetite, fatigue or changes in bowels. [facility] Medical History Overweight (BMI 25.0-29.9) No pertinent [...] with Dr. Babinand imagings reviewed. MRCP shows diffuseintra and extrahepatic [...] CC: AGUILAR Arias; Denys Friend, DO~ Signed [facility]03-14-2025 [facility]12-09-2024 [facility]12-06-2024 Evaluation note* Diagnosis Onset Date Resolution Status Admit Date Hyperbilirubinemia acute Decemb er 2023 9:07pm Jaundice acute 2024 9:07pm Choledocholithiasis resolved Decem jose 2023 9:07pm Overweight (BMI 25.0-29.9) inactive 2024 9:07pm Drug-induced liver injury acute September 11, 2024 7:58am Hyperbilirubinemia acute Decemb er 2023 7:58am Choledocholithiasis resolved Decem jose 2023 7:58am Cholelithiases acute November 12:28pm Hyperbilirubinemia acute December 11, 2024 12:28pm Jaundice acute December 11 12:28pm [facility] Work Phone: 1(779) 281-812212-06-2024 Evaluation note* Diagnosis Onset Date Resolution Status Admit Date Hyperbilirubinemia acute Decemb er 2023 9:07pm Jaundice acute 2024 9:07pm Choledocholithiasis resolved Decem 2023 9:07pm Overweight (BMI 25.0-29.9) inactive 2024 9:07pm Drug-induced liver injury acute September 11, 2024 7:58am Hyperbilirubinemia acute Decemb er 2023 7:58am Choledocholithiasis resolved Decem 2023 7:58am Cholelithiases acute November 12:28pm Hyperbilirubinemia acute December 11, 2024 12:28pm Jaundice acute December 11 12:28pm Elevation of levels of liver transaminase levels acute December 14, 2024 2:45pm Hyperbilirubinemia acute December 14, 2024 2:45pm [facility] Work Phone: 1(765) 957-188512-06-2024 Evaluation note* Diagnosis Onset Date Resolution Status Admit Date Hyperbilirubinemia acute Decemb er 2023 9:07pm Jaundice acute 2024 9:07pm Choledocholithiasis resolved Decem 2023 9:07pm Overweight (BMI 25.0-29.9) inactive 2024 9:07pm Drug-induced liver injury acute September 11, 2024 7:58am Hyperbilirubinemia acute Decemb er 2023 7:58am Choledocholithiasis resolved Decem 2023 7:58am Cholelithiases acute November 12:28pm Hyperbilirubinemia acute December 11, 2024 12:28pm Jaundice acute December 11 12:28pm Bacteremia due to Gram-negat daniele bacteria acute December 14, 2024 2:45pm Elevation of levels of liver transaminase levels acute December 14, 2024 2:45pm Hyperbilirubinemia acute December 14, 2024 2:45pm Choledocholithiasis resolved December 14, 2024 2:45pm [facility] Work Phone: 1([phone]) 656-619212-06-2024 Evaluation note* Diagnosis Onset Date Resolution Status Admit Date Jaundice acute 2024 9:07pm Choledocholithiasis resolved Decem jose 2023 9:07pm Hyperbilirubinemia inactive Decemb er 2023 9:07pm Overweight (BMI 25.0-29.9) inactive 2024 9:07pm Drug-induced liver injury acute September 11, 2024 7:58am Choledocholithiasis resolved Decem jose 2023 7:58am Hyperbilirubinemia inactive Decemb er 2023 [...] 2024 10:55am Jaundice acute December 31 10:55am [facility] Work Phone: 1(752) 667-709712-06-2024 Consult note Author Rafael Hooper [facility] Note Date/Time December 11, 2024 4:1 0pm [facility] Medical Records Department [address] [place] [address] Anesthesia Postop Eval II 12/11/24 1520 MR#: [id number] Acct: [id number] Name: DIANE CONNORS Rep #:[id number] : 1985 39 From: Rafael Hooper MD PCP: AGUILAR Giles Status:REG S DC Y Race: C Location: [facility]14- Anesthesia Postop Eval I Sum Postop Eval [...] MD > Date _ [facility] Hooper [facility] Signature: Date CC: ~ Signed [facility] Work Phone: 1(351) 490-843911-13-2024 Note ORIGINAL EXAMINATION: LIMITED ABDOMINAL WWHWISIUBS37/13/2024 8:11 am Limited ultrasound of the abdomen [...] Sign Date: 08/12/2024 9:46:00 AM Ordering Provider: [facility]11-06-2024 Evaluation + Plan note Future Scheduled Tests Laboratory* Amylase Level 08/05/24 * Lipase Level 08/05/24 * Complete Blood Count 08/05/24 * Lipid Profile 01/29/24 * Complete Metabolic Panel 08/05/24 * Complete Metabolic Panel 01/29/24 Radiology* US Abdomen Limited 08/10/24 [facility] 09-10-2024 Note ORIGINAL EXAMINATION: CT OF THE [...] Sign Date: 06/09/2024 12:42:25 PM Ordering Provider: [facility]06-28-2024 Note ORIGINAL EXAMINATION: ULTRASOUND OF THE SCROTUM/TESTICLES [...] Sign Date: 03/27/2024 3:12:22 PM Ordering Provider: [facility]05-01-2024 Evaluation + Plan note Future Scheduled Tests Laboratory* Lipid Profile 01/29/24 * Complete Metabolic Panel 01/29/24 [facility] 05-01-2024 Evaluation + Plan note Future Scheduled Tests Laboratory* Lipid Profile 01/29/24 * Complete Metabolic Panel 01/29/24 Radiology* US Pelvis Non-OB Complete 06/11/24 [facility] Consult note Author Hipolito Rasheed [facility] Note Date/Time December 11, 2024 2:2 7pm [facility] Medical Records Department [address] [place] [address] Anesthesia Postop Eval I 12/11/241425 MR#: [id number] Acct: [id number] Name: DIANE CONNORS Rep #:[id number] : 1985 39 From: Hipolito Rasheed PCP: AGUILAR Giles Status:REG S DC Y Race: C Location: [place] [address] Anesthesia: Postop Eval I Current Vital Signs [...] document: Postop Eval 1 completed: Yes 12/11/241426 <Electronically signed by Hipolito Rasheed > Date _ Hipolito Marrero Signature: Date CC: ~ Signed [facility] Work Phone: Consult note Author Jared Arevalo [facility] Note Date/Time December 16, 2024 4:1 7pm [facility] Medical Records Department [address] [place] [address] Consultation - Infectious Dx 12/16/24 1613 MR#: [id number] Acct: [id number] Name: DIANE CONNORS Rep #:[id number] : 1985 39 From: Jared melendrez MD PCP: ROLY GilesC Status:ADM I N Location: [place] [address] Assessment & Plan Assessment/Plan (1) Bacteremia due [...] performed and neg except as noted above. 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 Reading Location: [id number] 12/16/24 1617 <Electronically signed by Jared Arevalo MD> Cosigner Signature (if applicable): CC: AGUILAR Arias~ Signed [facility] Work Phone: Consult note Author Hipolito Rasheed [facility] Note Date/Time May 03, 2025 1:4 2pm [facility] Medical Records Department [address] [place] [address] Anesthesia Postop Eval I 05/03/25 1341 MR#: [id number] Acct: [id number] Name: DIANE CONNORS Rep #:[id number] : 1985 39 From: Hipolito Rasheed PCP: AGUILAR Giles Status:REG S DC Y Race: C Location: [place] [address] Anesthesia: Postop Eval I Current Vital Signs Temperature: 97.2 F Pulse Rate: 70 Blood Pressure: 104/84 Respiratory Rate: 16 Pulse Ox: 99 Oxygen Delivery Method: Room Air Assessment Airway patent: Yes Spontaneous unlabored respirations: Yes Mental status: Awake and Calm nausea: No Vomiting: No Anesthesia Complication: No Fluid Hydration Crystalloid volume administer (ml): 600 Total IV fluid infused: 600 Progress Note Anesthesia document: Postop Eval 1 completed: Yes 05/03/25 1342 <Electronically signed by Hipolito Rasheed > Date _ Hipolito Marrero Signature: Date CC: ~ Signed [facility] Work Phone: Consult note Author Rafael Hooper [facility] Note Date/Time May 03, 2025 2:0 3pm [facility] Medical Records Department [address] [place] [address] Anesthesia Postop Eval II 05/03/25 1349 MR#: [id number] Acct: [id number] Name: DIANE CONNORS Rep #:[id number] : 1985 39 From: Rafael Hooper MD PCP: AGUILAR Giles Status:REG S DC Y Race: C Location: [place] [address] Anesthesia Postop Eval I Sum Postop Eval Completion status Anesthesia document: Postop Eval 1 completed: Yes Anesthesia Postop Eval I Summary Anesthesia Postop Eval I Summary: Anesthesia Postop Eval I: Assessment Summary Airway patent Yes 05/03/25 13:42 [email or web address] Spontaneous unlabored Yes 05/03/25 13:42 [email or web address] respirations Mental status Awake,Calm 05/03/25 13:42 [email or web address] nausea No 05/03/25 13:42 [email or web address] Vomiting No 05/03/25 13:42 [email or web address] Anesthesia Postop Eval I: Fluid Summary Crystalloid volume administer 600 05/03/25 13:42 [email or web address] (ml) Colloids volume administered ( ml) Blood Product volume administered (ml) Total IV fluid infused 600 05/03/25 13:42 [email or web address] Anesthesia Postop Eval I: Summary Notes Anesthesia Complication No 05/03/25 13:42 [email or web address] Anesthesia Complication Comment: Post-operative progress note Anesthesia: Postop Eval II Evaluation Mental status: Awake Pain Level: 0 nausea: No Vomiting: No 05/03/25 1349 <Electronically signed by Rafael Hooper MD > Date _ Rafael Hooper MD Cosigner Signature: Date CC: ~ Signed [facility] Work Phone: Evaluation + Plan note Future Appointments Appointment Date:06/11/2024 09:00:00 AM Scheduled Provider:CAYLA HOOPER Location:UROLOGY Appointment Type:URO OV Future Scheduled Tests Laboratory* Lipid Profile 01/29/24 * Complete Metabolic Panel 01/29/24 [facility] History and physical note Author Cruz Arciniega [facility] Note Date/Time December 14, 2024 3:1 2pm [facility] Medical Records Department [address] [place] [address] H&P Exam - Hospitalist 12/14/24 1445 MR#: [id number] Acct: [id number] Name: DIANE CONNORS Rep #:[id number] : 1985 39 From: Cruz esposito DO PCP: AGUILAR Giles Status:REG E R Location: ED HPI - General General Date of Admission: 12/14/24 Date of Service: 12/14/24 Chief Complaint: Fevers and chills HPI Narrative DIANE CONNORS, is a 39 M who presented to [facility] ED on 12/14/2024 with fevers and chills. [...] any other acute concerns at this time. [facility] Medical History Overweight (BMI 25.0-29.9) No pertinent [...] 90.5 H, Lymph % (Auto) 3.2 L, [place] % (Auto) 4.7, Eos % (Auto) 0.1, [...] Clarity Clear, Urine pH 7.0, Ur Specific Girard 1.005, Urine Protein 30 H, Urine Glucose [...] the head of the pancreas. [facility] 12/14/24 12:19 IMPRESSION: 1. Mild left basilar airspace disease favorable for atelectasis/scarring howeverthis is not definite in the absence of prior exams to confirm stability. Correlate for mild pneumonia. 2. Additional description as above. Reading Location: [id number] Assessment & Plan Assessment/Plan (1) Hyperbilirubinemia: (2) Elevation of levels of liver transaminase levels: PLAN: Plan Patient is a 39-year-old male who presented to [facility] ED on 12/14/2024 with fevers and chills after recent ERCP. 1. 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 Admit under inpatient status to [facility]. GI consulted. See HPI for further [...] 55 minutes. Charges/Coding Visit Charges Inpatient E&M: 60217 Init Hosp L2 12/14/24 1512 <Electronically signed by Cruz Arciniega DO> Cosigner Signature (if applicable): CC: AGUILAR Arias; Dr. Cruz Arciniega DO~ Signed [facility] Work Phone: History and physical note Author Denys Babin [facility] Note Date/Time May 03, 2025 12: 49pm [facility] Medical Records Department [address] [place] [address] History & Physical Exam 05/03/25 1247 MR#: [id number] Acct: [id number] Name: DIANE CONNORS Rep #:[id number] : 1985 39 From: Denys Babin DO PCP: AGUILAR Giles Status:REG S DC Location: [place] [address] HPI - General General Date of Admission: 05/03/25 Date of Service: 05/03/25 Chief Complaint: Biliary stent removal HPI Narrative DIANE CONNORS, is a 39 M who presents today for ERCP with stent removal. Patient recently underwent ERCP with stone removal and stent placement. Last month he underwent elective cholecystectomy. Patient is doing well after procedure. He comes back in for stent removal. [facility] Medical History Bacteremia due to Gram-negative bacteria Drug-induced liver injury Jaundice History of biliary stent insertion Elevation of levels of liver transaminase levels Hyperbilirubinemia Overweight (BMI 25.0-29.9) No pertinent past medical history Home Medications ?Medication ?Instructions ?Recorded ?Last Taken ?Type NK 04/07/25 Unknown History Allergy/AdvReac Type Severity Reaction Status Date / Time No Known Allergies Allergy Verified 05/03/25 11:45 Surgical History Hx laparoscopic cholecystectomy History of ERCP Social History Smoking Status: Never smoker alcohol intake: never ROS Constitutional Constitutional: Denies fatigue, fever(s), poor appetite, weight gain or weight loss Gastrointestinal Gastrointestinal: Denies belching, bloating, change in bowel habits, change in stool character, chewing difficulty, coffee ground emesis, constipation, cramping, diarrhea, dyspepsia, dysphagia, early satiety, excessive flatus, fecalincontinence, heartburn, hematemesis, hematochezia, hemorrhoids, loose stools, melena, nausea, odynophagia, rectal bleeding, tenesmus, vomiting or weight changes Vital Signs Vital Signs Vital Signs: 05/03/25 11:55 05/03/25 11:55 Temperature 98.1 F Temperature Source Temporal Pulse Rate 60 Respiratory Rate 16 Respiratory Pattern Normal Blood Pressure 102/81 H Blood Pressure Mean 88 Blood Pressure Source Monitor Blood Pressure Position Semi-Fowlers Blood Pressure Location Right Arm Pulse Ox 99 Oxygen Delivery Method Room Air Weight Weight: 210 lb 15.718 oz Body Mass Index (BMI) 30.2 Physical Exam Const alert, oriented x3, no apparent distress and healthy appearing General Appearance: cooperative GI normal to inspection, nondistended, normoactive bowel sounds, soft to palpation,non-tender and non-distended Percussion: normal to percussion Rectal Exam: deferred Assessment & Plan Assessment/Plan (1) Hyperbilirubinemia: (2) Elevation of levels of liver transaminase levels: PLAN: Plan Patient is a 39-year-old male who presented to [facility] ED on 12/14/2024 with fevers and chills after recent ERCP. Reported fevers/chills with elevated transaminases after recent ERCP, recent history of choledocholithiasis and suspected history of drug-induced liver injury ? He had ERCP done with choledocholithiasis removed with biliary tree swept, as well as removal of previously placed temporary stent. He presents today for stent removal. He was explained alternatives, risk and benefits going understanding bleeding, infection, septal, perforation, need for surgery . He will have an ASA of 3. . 05/03/25 1249 <Electronically signed by Denys Babin DO> Cosigner Signature (if applicable): CC: AGUILAR Arias; Denys Babin DO~ Signed [facility] Work Phone: Hospital course Narrative No data available for this section [facility] Hospital Discharge instructions No data available for this section [facility] Progress note No data available for this section [facility] Summary Purpose Family History No Family History Records Found Advance Directives Advance Directive Response Recorded Date/ Time Living Will Yes December 09, 2024 10:19am Power of Lens Hardener Yes December 09 10:19am Name of Medical Power of Lens Hardener OLGA December 09, 2024 10:19am Living Will No September 04 10:48pm Power of Lens Hardener No 2024 10:48pm Advance Directive Response Recorded Date/ Time Living Will Yes December 09, 2024 10:19am Power of Lens Hardener Yes December 09 10:19am Name of Medical Power of Lens Hardener OLGA December 09, 2024 10:19am Living Will No December 14, 2024 11:02am Power of Lens Hardener No December 14 11:02am Living Will No September 04 10:48pm Power of Lens Hardener No 2024 10:48pm Advance Directive Response Recorded Date/ Time Living Will Yes December 09, 2024 10:19am Do you have a Healthcare Power of Lens Hardener? Yes December 09, 2024 10:19am Name of Medical Power of Lens Hardener OLGA December 09, 2024 10:19am Living Will Yes December 14, 2024 4:44pm Do you have a Healthcare Power of Lens Hardener? Yes December 14, 2024 4:44pm Name of Medical Power of Lens Hardener Olga Connors December 14, 2024 4:44pm Living Will No September 04 10:48pm Do you have a Healthcare Power of Lens Hardener? No 2024 10:48pm Advance Directive Response Recorded Date/ Time Living Will Yes December 09, 2024 10:19am Do you have a Healthcare Power of Lens Hardener? Yes December 09, 2024 10:19am Name of Medical Power of Lens Hardener OLGA December 09, 2024 10:19am Living Will Yes December 14, 2024 4:44pm Do you have a Healthcare Power of Lens Hardener? Yes December 14, 2024 4:44pm Name of Medical Power of Lens Hardener Olga Connors December 14, 2024 4:44pm Advance Directive Response Recorded Date/ Time Living Will Yes December 09, 2024 10:19am Do you have a Healthcare Power of Lens Hardener? Yes December 09, 2024 10:19am Name of Medical Power of Lens Hardener OLGA December 09, 2024 10:19am Living Will Yes December 14, 2024 4:44pm Do you have a Healthcare Power of Lens Hardener? Yes December 14, 2024 4:44pm Name of Medical Power of Lens Hardener Olga Connors December 14, 2024 4:44pm Do you have a Healthcare Power of Lens Hardener? No March 17, 2025 8:10pm Advance Directive Response Recorded Date/ Time Do you have a Healthcare Power of Lens Hardener? No March 17, 2025 8:10pm Do you have a Healthcare Power of Lens Hardener? No April 27, 2025 3:02pm Chief Complaint and Reason for Visit Chief [...] WITH SEVERE JAUNDICE September 07, 2024 11:32am [facility] Jaundice August 7:58am INT LABS September 11, [...] FEVERS December 16, 2024 2: 13pm GALLBLADDER, [facility] December 31, 2024 9:50 am Hospital [...] FEVERS December 16, 2024 2: 13pm GALLBLADDER, [facility] December 31, 2024 9:50 am Hospital December 31, 2024 10:5 5am INT ORDER December 31, 2024 12:1 3pm K80.80 R53.83 January 05, 2025 2:57 pm Calculus of gallbladder with acute dexter cystitis w February 24, 2025 10:38am Reason [...] FEVERS December 16, 2024 2: 13pm GALLBLADDER, [facility] FU December 31, 2024 9:50 am Hospital December 31, 2024 10:5 5am INT ORDER December 31, 2024 12:1 3pm K80.80 R53.83 January 05, 2025 2:57 pm Calculus of gallbladder with acute dexter cystitis w February 24, 2025 10:38am PREOP March 08, 2025 8:35a m Laparoscopic, Cholecystectomy with IOC a nd umbilic March 17, 2025 11:47am Laparoscopic, Cholecystectomy with IOC a nd umbilic March 17, 2025 3:40pm Laparoscopic, Cholecystectomy with IOC a nd umbilic March 18, 2025 7:00am Reason for Visit Admit Date Cholelithiases December [...] 5am Jaundice December 31, 2024 10:5 5am Status post laparoscopic cholecystectomy March 17, 2025 3:40pm Chief Complaint Admit Date HYPERBILIRUBINEMIA December 11, 2024 9:0 0am PREOP December 11, 2024 12: 55pm RECENT ERCP W FEVERS December 14, 2024 2: 45pm RECENT ERCP W FEVERS December 15, 2024 8: 01am RECENT ERCP W FEVERS December 15, 2024 5: 34pm RECENT ERCP W FEVERS December 16, 2024 12 :11pm RECENT ERCP W FEVERS December 16, 2024 2: 13pm GALLBLADDER, [facility] December 31, 2024 9:50 am Hospital December 31, 2024 10:5 5am INT ORDER December 31, 2024 12:1 3pm K80.80 R53.83 January 05, 2025 2:57 pm Calculus of gallbladder with acute dexter cystitis w February 24, 2025 10:38am PREOP March 08, 2025 8:35a m Laparoscopic, Cholecystectomy with IOC a nd umbilic March 17, 2025 11:47am Laparoscopic, Cholecystectomy with IOC a nd umbilic March 17, 2025 3:40pm Laparoscopic, Cholecystectomy with IOC a nd umbilic March 18, 2025 7:00am GALLBLADDER 6-18 JASON DRAIN REMOVAL March 012024 1:05pm Reason for Visit Admit Date Cholelithiases December [...] 5am Jaundice December 31, 2024 10:5 5am Status post laparoscopic cholecystectomy March 17, 2025 3:40pm Status post laparoscopic cholecystectomy March 25, 2025 1:05pm Chief Complaint Admit Date HYPERBILIRUBINEMIA December 11, 2024 9:0 0am PREOP December 11, 2024 12: 55pm RECENT ERCP W FEVERS December 14, 2024 2: 45pm RECENT ERCP W FEVERS December 15, 2024 8: 01am RECENT ERCP W FEVERS December 15, 2024 5: 34pm RECENT ERCP W FEVERS December 16, 2024 12 :11pm RECENT ERCP W FEVERS December 16, 2024 2: 13pm GALLBLADDER, [facility] December 31, 2024 9:50 am Hospital FU December 31, 2024 10:5 5am INT ORDER December 31, 2024 12:1 3pm K80.80 R53.83 January 05, 2025 2:57 pm Calculus of gallbladder with acute dexter cystitis w February 24, 2025 10:38am PREOP March 08, 2025 8:35a m Laparoscopic, Cholecystectomy with IOC a nd umbilic March 17, 2025 11:47am Laparoscopic, Cholecystectomy with IOC a nd umbilic March 17, 2025 3:40pm Laparoscopic, Cholecystectomy with IOC a nd umbilic March 18, 2025 7:00am GALLBLADDER 6-18 JASON DRAIN REMOVAL March 012024 1:05pm CHECK FOR BILE LEAKS AND DUCT PATENCY Ju ly 2024 8:02am DEXTER TUBE REMOVAL March 31, 2025 1:58p m Reason for Visit Admit Date Cholelithiases December 11, 2024 12: 28pm Hyperbilirubinemia December 11, 2024 12: 28pm Jaundice December 11, 2024 12: 28pm Choledocholithiasis December 14, 2024 2:4 5pm Bacteremia due to Gram-negative bacteria December 14, 2024 2:45pm Elevation of levels of liver transaminas e levels December 14, 2024 2:45pm Hyperbilirubinemia December 14, 2024 2:4 5pm Choledocholithiasis December 31, 2024 9:50 am Hyperbilirubinemia December 31, 2024 9:50 am Cholelithiases December 31, 2024 10:5 5am Jaundice December 31, 2024 10:5 5am Status post laparoscopic cholecystectomy March 17, 2025 3:40pm Status post laparoscopic cholecystectomy March 25, 2025 1:05pm Reason for Visit Admit Date Cholelithiases December 11, 2024 12: 28pm Hyperbilirubinemia December 11, 2024 12: 28pm Jaundice December 11, 2024 12: 28pm Choledocholithiasis December 14, 2024 2:4 5pm Bacteremia due to Gram-negative bacteria December 14, 2024 2:45pm Elevation of levels of liver transaminas e levels December 14, 2024 2:45pm Hyperbilirubinemia December 14, 2024 2:4 5pm Choledocholithiasis December 31, 2024 9:50 am Hyperbilirubinemia December 31, 2024 9:50 am Cholelithiases December 31, 2024 10:5 5am Jaundice December 31, 2024 10:5 5am Status post laparoscopic cholecystectomy March 17, 2025 3:40pm Status post laparoscopic cholecystectomy March 25, 2025 1:05pm Cholecystitis March 31, 2025 1:58p m Status post laparoscopic cholecystectomy March 31, 2025 1:58pm Chief Complaint Admit Date HYPERBILIRUBINEMIA December 11, 2024 9:0 0am PREOP December 11, 2024 12: 55pm RECENT ERCP W FEVERS December 14, 2024 2: 45pm RECENT ERCP W FEVERS December 15, 2024 8: 01am RECENT ERCP W FEVERS December 15, 2024 5: 34pm RECENT ERCP W FEVERS December 16, 2024 12 :11pm RECENT ERCP W FEVERS December 16, 2024 2: 13pm GALLBLADDER, [facility] FU December 31, 2024 9:50 am Hospital December 31, 2024 10:5 5am INT ORDER December 31, 2024 12:1 3pm K80.80 R53.83 January 05, 2025 2:57 pm Calculus of gallbladder with acute dexter cystitis w February 24, 2025 10:38am PREOP March 08, 2025 8:35a m Laparoscopic, Cholecystectomy with IOC a nd umbilic March 17, 2025 11:47am Laparoscopic, Cholecystectomy with IOC a nd umbilic March 17, 2025 3:40pm Laparoscopic, Cholecystectomy with IOC a nd umbilic March 18, 2025 7:00am GALLBLADDER 6-18 JASON DRAIN REMOVAL March 012024 1:05pm CHECK FOR BILE LEAKS AND DUCT PATENCY Ju ly 2024 8:02am DEXTER TUBE REMOVAL March 31, 2025 1:58p m S/P LAP DEXTER April 07, 2025 2:29p m Chief Complaint Admit Date K80.80 R53.83 January 05, 2025 2:57 pm Calculus of gallbladder with acute dexter cystitis w February 24, 2025 10:38am PREOP March 08, 2025 8:35a m Laparoscopic, Cholecystectomy with IOC a nd umbilic March 17, 2025 11:47am Laparoscopic, Cholecystectomy with IOC a nd umbilic March 17, 2025 3:40pm Laparoscopic, Cholecystectomy with IOC a nd umbilic March 18, 2025 7:00am GALLBLADDER 6-18 JASON DRAIN REMOVAL March 012024 1:05pm CHECK FOR BILE LEAKS AND DUCT PATENCY Ju ly 2024 8:02am DEXTER TUBE REMOVAL March 31, 2025 1:58p m S/P LAP DEXTER April 07, 2025 2:29p m Reason for Visit Admit Date Status post laparoscopic cholecystectomy March 17, 2025 3:40pm Status post laparoscopic cholecystectomy March 25, 2025 1:05pm Cholecystitis March 31, 2025 1:58p m Status post laparoscopic cholecystectomy March 31, 2025 1:58pm Status post laparoscopic cholecystectomy April 07, 2025 2:29pm Elevation of levels of liver transaminas e levels May 03, 2025 11:31am Hyperbilirubinemia May 03, 2025 11: 31am Additional Source Comments Patient Care team informatio n (unrecognized section and content) Team Status: Active Member Role Status Dates Shira Arias NP, RETAIL CUSTOMER SERVICE SPECIALIST-C Primary Care Provider Active Team Status: Active Member Role Status Dates Shira Arias NP, RETAIL CUSTOMER SERVICE SPECIALIST-C Primary Care Provider Active Start: December 11, 2024 Dr. Pedro Lopez MD Attending Provider Active Start: December 11, 2024 Dr. Pedro Lopez MD Referring Provider Active Start: December 11, 2024 Team Status: Inactive Member Role Status Dates Shira Arias NP, RETAIL CUSTOMER SERVICE SPECIALIST-C Primary Care Provider Active Start: December 11, 2024 End: December 11, 2024 Shira Arias NP, RETAIL CUSTOMER SERVICE SPECIALIST-C Referring Provider Active Start: December 11, 2024 End: December 11, 2024 Dr. Denys Babin DO Attending Provider Active Start: December 11, 2024 End: December 11, 2024 Team Status: Active Member Role Status Dates Shira Arias NP, RETAIL CUSTOMER SERVICE SPECIALIST-C Primary Care Provider Active Start: December 11, 2024 Shira Arias NP, RETAIL CUSTOMER SERVICE SPECIALIST-C Referring Provider Active Start: December 11, 2024 Dr. Denys Babin DO Attending Provider Active Start: December 11, 2024 Dr. Denys Babin DO Other Provider Active St art: December 11, 2024 Team Status: Active Member Role Status Dates Shira Arias NP, RETAIL CUSTOMER SERVICE SPECIALIST-C Primary Care Provider Active Start: December 11, 2024 End: December 11, 2024 Dr. Jose Lubin MD Attending Provider Active S tart: December 11, 2024 End: December 11, 2024 Dr. Denys Babin DO Referring Provider Active Start: December 11, 2024 End: December 11, 2024 Team Status: Inactive Member Role Status Dates Shira Lorson RETAIL CUSTOMER SERVICE SPECIALIST, RETAIL CUSTOMER SERVICE SPECIALIST-C Primary Care Provider Active Start: December 14, 2024 End: December 16, 2024 Dr. Petar Barrera DO Emergency Provider Active Start: December 14, 2024 End: December 16, 2024 Dr. Cruz Arciniega DO Admit Provider Active Start: December 14, 2024 End: December 16, 2024 Dr. Cruz Arciniega DO Other Provider Active Start: December 14, 2024 [...] Active Member Role Status Dates Shira Arias RETAIL CUSTOMER SERVICE SPECIALIST, RETAIL CUSTOMER SERVICE SPECIALIST-C Primary Care Provider Active Start: December 15, [...] Active Member Role Status Dates Shira Arias RETAIL CUSTOMER SERVICE SPECIALIST, RETAIL CUSTOMER SERVICE SPECIALIST-C Primary Care Provider Active Start: December 15, [...] Active Member Role Status Dates Shira Arias RETAIL CUSTOMER SERVICE SPECIALIST, RETAIL CUSTOMER SERVICE SPECIALIST-C Primary Care Provider Active Start: December 16, [...] Active Member Role Status Dates Shira Arias RETAIL CUSTOMER SERVICE SPECIALIST, RETAIL CUSTOMER SERVICE SPECIALIST-C Primary Care Provider Active Start: December 16, [...] Member Role Status Dates Shira Arias NP, RETAIL CUSTOMER SERVICE SPECIALIST-C Primary Care Provider Active Start: December 31, 2024 End: December 31, 2024 Shira Arias NP, RETAIL CUSTOMER SERVICE SPECIALIST-C Referring Provider Active Start: December 31, 2024 End: December 31, 2024 Dr. Camron Shoemaker MD Attending Provider Active Start: December 31, 2024 End: December 31, 2024 Team Status: Inactive Member Role Status Dates Shira Arias RETAIL CUSTOMER SERVICE SPECIALIST, RETAIL CUSTOMER SERVICE SPECIALIST-C Primary Care Provider Active Start: December 31, 2024 End: December 31, 2024 Shira Arias NP, RETAIL CUSTOMER SERVICE SPECIALIST-C Referring Provider Active Start: December 31, 2024 End: December 31, 2024 Cayla Quiñonez NP-C Attending Provider Active Start: December 31, 2024 End: December 31, 2024 Team Status: Inactive Member Role Status Dates Shira Arias NP, RETAIL CUSTOMER SERVICE SPECIALIST-C Primary Care Provider Active Start: December 31, 2024 End: December 31, 2024 Cayla Quiñonez RETAIL CUSTOMER SERVICE SPECIALIST-C Attending Provider Active Start: December 31, 2024 End: December 31, 2024 Cayla Quiñonez , RETAIL CUSTOMER SERVICE SPECIALIST-C Referring Provider Active Start: December 31, 2024 End: December 31, 2024 Team Status: Active Member Role Status Dates Shira Juana RETAIL CUSTOMER SERVICE SPECIALIST, RETAIL CUSTOMER SERVICE SPECIALIST-C Primary Care Provider Active Start: January 05, 2025 Michela Sal RETAIL CUSTOMER SERVICE SPECIALIST, RETAIL CUSTOMER SERVICE SPECIALIST-C Attending Provider Active Start: January 05, 2025 Michela Sal RETAIL CUSTOMER SERVICE SPECIALIST, RETAIL CUSTOMER SERVICE SPECIALIST-C Referring Provider Active Start: January 05, 2025 Team Status: Inactive Member Role Status Dates Shira Juana RETAIL CUSTOMER SERVICE SPECIALIST, RETAIL CUSTOMER SERVICE SPECIALIST-C Primary Care Provider Active Start: February 24, 2025 End: February 24, 2025 Michela Sal RETAIL CUSTOMER SERVICE SPECIALIST, RETAIL CUSTOMER SERVICE SPECIALIST-C Attending Provider Active Start: February 24, 2025 End: February 24, 2025 Michela Sal RETAIL CUSTOMER SERVICE SPECIALIST, RETAIL CUSTOMER SERVICE SPECIALIST-C Referring Provider Active Start: February 24, 2025 End: February 24, 2025 Team Status: Inactive Member Role Status Dates Shira Juana RETAIL CUSTOMER SERVICE SPECIALIST, RETAIL CUSTOMER SERVICE SPECIALIST-C Primary Care Provider Active Start: 2024 End: September 07, 2024 Dr. Rod Ross , DO Emergency Provider Active Start : 2024 End: September 07, 2024 Dr. Seth Paiz , DO Admit Provider Active Start: 2024 End: September 07, 2024 Dr. Seth Paiz DO Other Provider Active Start: 2024 End: September 07, 2024 Dr. Edwina Kimball , DO Attending Provider Active S tart: 2024 End: September 07, 2024 Dr. Cruz Arciniega , Other Provider Active Start: 2024 End: September 07, 2024 Team Status: Active Member Role Status Dates Shira Arias NP, RETAIL CUSTOMER SERVICE SPECIALIST-C Primary Care Provider Active Start: 2024 Dr. Rod Ross , Emergency Provider Active Start : 2024 Dr. Seth Paiz DO Admit Provider Active Start: 2024 Dr. Seth Paiz DO Referring Provider Active Start: 2024 Dr. Seth Paiz DO Other Provider Active Start: 2024 Dr. Cruz Arciniega , DO Other Provider Active Start: 2024 Dr. Denys Babin , DO Attending Provider Active Start: 2024 Team Status: Active Member Role Status Dates Shira Arias RETAIL CUSTOMER SERVICE SPECIALIST, RETAIL CUSTOMER SERVICE SPECIALIST-C Primary Care Provider Active Start: September 05, 2024 End: September 05, 2024 Dr. Jose Lubin MD Attending Provider Active S tart: September 05, 2024 End: September 05, 2024 Dr. Jose Lubin MD Referring Provider Active S tart: September 05, 2024 End: September 05, 2024 Team Status: Active Member Role Status Dates Shira Juana RETAIL CUSTOMER SERVICE SPECIALIST, RETAIL CUSTOMER SERVICE SPECIALIST-C Primary Care Provider Active Start: September 05, 2024 Dr. Rod Ross , DO Emergency Provider Active Start : September 05, 2024 Dr. Seth Paiz , DO Admit Provider Active Start: September 05, 2024 Dr. Seth Paiz , Other Provider Active Start: September 05, 2024 Dr. Crzu Arciniega , DO Attending Provider Active Start: September 05, 2024 Dr. Cruz Arciniega , DO Other Provider Active Start: September 05, 2024 Team Status: Active Member Role Status Dates Shira Arias RETAIL CUSTOMER SERVICE SPECIALIST, RETAIL CUSTOMER SERVICE SPECIALIST-C Primary Care Provider Active Start: September 05, 2024 Dr. Denys Babin , DO Attending Provider Active Start: September 05, 2024 Dr. Seth Paiz , Referring Provider Active Start: September 05, 2024 Team Status: Active Member Role Status Dates Shira Juana RETAIL CUSTOMER SERVICE SPECIALIST, RETAIL CUSTOMER SERVICE SPECIALIST-C Primary Care Provider Active Start: September 06, 2024 Dr. Rod Ross , DO Emergency Provider Active Start : September 06, 2024 Dr. Seth Paiz , DO Admit Provider Active Start: September 06, 2024 Dr. Seth Paiz , Other Provider Active Start: September 06, 2024 Dr. Cruz Arciniega , DO Attending Provider Active Start: September 06, 2024 Dr. Cruz Arciniega , DO Other Provider Active Start: September 06, 2024 Team Status: Active Member Role Status Dates Shira Juana RETAIL CUSTOMER SERVICE SPECIALIST, RETAIL CUSTOMER SERVICE SPECIALIST-C Primary Care Provider Active Start: September 07, [...] Active Member Role Status Dates Shira Arias RETAIL CUSTOMER SERVICE SPECIALIST, RETAIL CUSTOMER SERVICE SPECIALIST-C Primary Care Provider Active Start: September 07, [...] Inactive Member Role Status Dates Shira Arias RETAIL CUSTOMER SERVICE SPECIALIST, RETAIL CUSTOMER SERVICE SPECIALIST-C Primary Care Provider Active Start: September 11, 2024 End: September 11, 2024 Shira Arias RETAIL CUSTOMER SERVICE SPECIALIST, RETAIL CUSTOMER SERVICE SPECIALIST-C Referring Provider Active Start: September 11, 2024 End: September 11, 2024 Dr. Francesco Lui MD Attending Provider Active Start: September 11, 2024 End: September 11, 2024 Team Status: Inactive Member Role Status Dates Shira Arias RETAIL CUSTOMER SERVICE SPECIALIST, RETAIL CUSTOMER SERVICE SPECIALIST-C Primary Care Provider Active Start: September 11, 2024 End: September 11, 2024 Dr. Francesco Lui MD Attending Provider Active Start: September 11, 2024 End: September 11, 2024 Dr. Francesco Lui MD Referring Provider Active Start: September 11, 2024 End: September 11, 2024 Team Status: Active Member Role Status Dates Shira Arias RETAIL CUSTOMER SERVICE SPECIALIST, RETAIL CUSTOMER SERVICE SPECIALIST-C Primary Care Provider Active Start: December 14, 2024 Dr. Petar Barrera , DO Emergency Provider Active Start: December 14, 2024 Dr. Cruz Arciniega , DO Admit Provider Active Start: December 14, 2024 Dr. Cruz Arciniega , DO Attending Provider Active Start: December 14, 2024 Team Status: Active Member Role Status Dates Shira Arias RETAIL CUSTOMER SERVICE SPECIALIST, RETAIL CUSTOMER SERVICE SPECIALIST-C Primary Care Provider Active Start: December 15, [...] Active Member Role Status Dates Shira Arias RETAIL CUSTOMER SERVICE SPECIALIST, RETAIL CUSTOMER SERVICE SPECIALIST-C Primary Care Provider Active Start: December 16, [...] Active Member Role Status Dates Shira Arias RETAIL CUSTOMER SERVICE SPECIALIST, RETAIL CUSTOMER SERVICE SPECIALIST-C Primary Care Provider Active Start: March 08, 2025 End: March 08, 2025 Dr. Camron Redd MD Attending Provider Active Start: March 08, 2025 End: March 08, 2025 Dr. Camron Shoemaker MD Referring Provider Active Start: March 08, 2025 End: March 08, 2025 Team Status: Active Member Role Status Dates Shira Arias RETAIL CUSTOMER SERVICE SPECIALIST, RETAIL CUSTOMER SERVICE SPECIALIST-C Primary Care Provider Active Start: March 17, 2025 Dr. Camron Shoemaker MD Attending Provider Active Start: March 17, 2025 Dr. Camron Shoemaker MD Referring Provider Active Start: March 17, 2025 Dr. Camron Shoemaker MD Other Provider Active Sta rt: March 17, 2025 Dr. Gray López MD Other Provider Active Star t: March 17, 2025 Team Status: Inactive Member Role Status Dates Shira Arias RETAIL CUSTOMER SERVICE SPECIALIST, RETAIL CUSTOMER SERVICE SPECIALIST-C Primary Care Provider Active Start: March 17, 2025 End: March 18, 2025 Dr. Camron Shoemaker MD Admit Provider Active Sta rt: March 17, 2025 End: March 18, 2025 Dr. Camron Shoemaker MD Attending Provider Active Start: March 17, 2025 End: March 18, 2025 Dr. Camron Shoemaker MD Referring Provider Active Start: March 17, 2025 End: March 18, 2025 Dr. Gray López MD Other Provider Active Star t: March 17, 2025 End: March 18, 2025 Team Status: Active Member Role Status Dates Shira Arias RETAIL CUSTOMER SERVICE SPECIALIST, RETAIL CUSTOMER SERVICE SPECIALIST-C Primary Care Provider Active Start: March 18, 2025 Dr. Camron Shoemaker MD Admit Provider Active Sta rt: March 18, 2025 Dr. Camron Shoemaker MD Attending Provider Active Start: March 18, 2025 Dr. Camron Shoemaker MD Referring Provider Active Start: March 18, 2025 Dr. Camron Shoemaker MD Other Provider Active Sta rt: March 18, 2025 Dr. Gray López MD Other Provider Active Star t: March 18, 2025 Team Status: Inactive Member Role Status Dates Shira Arias RETAIL CUSTOMER SERVICE SPECIALIST, RETAIL CUSTOMER SERVICE SPECIALIST-C Primary Care Provider Active Start: March 25, 2025 End: March 25, 2025 Shira Arias RETAIL CUSTOMER SERVICE SPECIALIST, RETAIL CUSTOMER SERVICE SPECIALIST-C Referring Provider Active Start: March 25, 2025 End: March 25, 2025 Bing Temple PA, PA-C Attending Provider Active Start: March 25, 2025 End: March 25, 2025 Team Status: Active Member Role/Relationship Status Dates Shira Arias RETAIL CUSTOMER SERVICE SPECIALIST, RETAIL CUSTOMER SERVICE SPECIALIST-C Primary Care Provider Active Team Status: Active Member Role/Relationship Status Dates Shira Arias RETAIL CUSTOMER SERVICE SPECIALIST, RETAIL CUSTOMER SERVICE SPECIALIST-C Primary Care Provider Active Start: December 11, 2024 Dr. Pdero Lopez MD Attending Provider Active Start: December 11, 2024 Dr. Pedro Lopez MD Referring Provider Active Start: December 11, 2024 Team Status: Inactive Member Role/Relationship Status Dates Shira Arias RETAIL CUSTOMER SERVICE SPECIALIST, RETAIL CUSTOMER SERVICE SPECIALIST-C Primary Care Provider Active Start: December 11, 2024 End: December 11, 2024 Shira Arias RETAIL CUSTOMER SERVICE SPECIALIST, RETAIL CUSTOMER SERVICE SPECIALIST-C Referring Provider Active Start: December 11, 2024 End: December 11, 2024 Dr. Denys Babin DO Attending Provider Active Start: December 11, 2024 End: December 11, 2024 Team Status: Active Member Role/Relationship Status Dates Shira Arias RETAIL CUSTOMER SERVICE SPECIALIST, RETAIL CUSTOMER SERVICE SPECIALIST-C Primary Care Provider Active Start: December 11, 2024 Shira Arias NP, RETAIL CUSTOMER SERVICE SPECIALIST-C Referring Provider Active Start: December 11, 2024 Dr. Denys Babin DO Attending Provider Active Start: December 11, 2024 Dr. Denys Babin DO Other Provider Active St art: December 11, 2024 Team Status: Active Member Role/Relationship Status Dates Shira Arias RETAIL CUSTOMER SERVICE SPECIALIST, RETAIL CUSTOMER SERVICE SPECIALIST-C Primary Care Provider Active Start: December 11, 2024 End: December 11, 2024 Dr. Jose Lubin MD Attending Provider Active S tart: December 11, 2024 End: December 11, 2024 Dr. Denys Babin DO Referring Provider Active Start: December 11, 2024 End: December 11, 2024 Team Status: Inactive Member Role/Relationship Status Dates Shira Arias NP, RETAIL CUSTOMER SERVICE SPECIALIST-C Primary Care Provider Active Start: December 14, 2024 End: December 16, 2024 Dr. Petar Barrera DO Emergency Provider Active Start: December 14, 2024 End: December 16, 2024 Dr. Cruz Arciniega DO Admit Provider Active Start: December 14, 2024 End: December 16, 2024 Dr. Cruz Arciniega DO Other Provider Active Start: December 14, 2024 End: December 16, 2024 Dr. Francesco Lui MD Attending Provider Active Start: December 14, 2024 End: December 16, 2024 Dr. Camron Shoemaker MD Other Provider Active Sta rt: December 14, 2024 End: December 16, 2024 Dr. Jared Arevalo MD Other Provider Active Start: December 14, 2024 End: December 16, 2024 Team Status: Active Member Role/Relationship Status Dates Shira Arias NP, RETAIL CUSTOMER SERVICE SPECIALIST-C Primary Care Provider Active Start: December 15, [...] December 15, 2024 Team Status: Active Member Role/Relationship Status Dates Shira Arias RETAIL CUSTOMER SERVICE SPECIALIST, RETAIL CUSTOMER SERVICE SPECIALIST-C Primary Care Provider Active Start: December 15, [...] December 15, 2024 Team Status: Active Member Role/Relationship Status Dates Shira Arias RETAIL CUSTOMER SERVICE SPECIALIST, RETAIL CUSTOMER SERVICE SPECIALIST-C Primary Care Provider Active Start: December 16, [...] December 16, 2024 Team Status: Active Member Role/Relationship Status Dates Shira Arias NP, RETAIL CUSTOMER SERVICE SPECIALIST-C Primary Care Provider Active Start: December 16, [...] December 16, 2024 Team Status: Inactive Member Role/Relationship Status Dates Shira Arias RETAIL CUSTOMER SERVICE SPECIALIST, RETAIL CUSTOMER SERVICE SPECIALIST-C Primary Care Provider Active Start: December 31, 2024 End: December 31, 2024 Shira Arias RETAIL CUSTOMER SERVICE SPECIALIST, RETAIL CUSTOMER SERVICE SPECIALIST-C Referring Provider Active Start: December 31, 2024 End: December 31, 2024 Dr. Camron Shoemaker MD Attending Provider Active Start: December 31, 2024 End: December 31, 2024 Team Status: Inactive Member Role/Relationship Status Dates Shira Arias RETAIL CUSTOMER SERVICE SPECIALIST, RETAIL CUSTOMER SERVICE SPECIALIST-C Primary Care Provider Active Start: December 31, 2024 End: December 31, 2024 Shira Arias RETAIL CUSTOMER SERVICE SPECIALIST, RETAIL CUSTOMER SERVICE SPECIALIST-C Referring Provider Active Start: December 31, 2024 End: December 31, 2024 Cayla Quiñonez RETAIL CUSTOMER SERVICE SPECIALIST-C Attending Provider Active Start: December 31, 2024 End: December 31, 2024 Team Status: Inactive Member Role/Relationship Status Dates Shira Arias RETAIL CUSTOMER SERVICE SPECIALIST, RETAIL CUSTOMER SERVICE SPECIALIST-C Primary Care Provider Active Start: December 31, 2024 End: December 31, 2024 Cayla Quiñonez RETAIL CUSTOMER SERVICE SPECIALIST-C Attending Provider Active Start: December 31, 2024 End: December 31, 2024 Cayla Quiñonez RETAIL CUSTOMER SERVICE SPECIALIST-C Referring Provider Active Start: December 31, 2024 End: December 31, 2024 Team Status: Active Member Role/Relationship Status Dates Shira Arias RETAIL CUSTOMER SERVICE SPECIALIST, RETAIL CUSTOMER SERVICE SPECIALIST-C Primary Care Provider Active Start: January 05, 2025 Michela Sal RETAIL CUSTOMER SERVICE SPECIALIST, RETAIL CUSTOMER SERVICE SPECIALIST-C Attending Provider Active Start: January 05, 2025 Michela Sal RETAIL CUSTOMER SERVICE SPECIALIST, RETAIL CUSTOMER SERVICE SPECIALIST-C Referring Provider Active Start: January 05, 2025 Team Status: Inactive Member Role/Relationship Status Dates Shira Arias RETAIL CUSTOMER SERVICE SPECIALIST, RETAIL CUSTOMER SERVICE SPECIALIST-C Primary Care Provider Active Start: February 24, 2025 End: February 24, 2025 Michela Sal RETAIL CUSTOMER SERVICE SPECIALIST, RETAIL CUSTOMER SERVICE SPECIALIST-C Attending Provider Active Start: February 24, 2025 End: February 24, 2025 Michela Sal RETAIL CUSTOMER SERVICE SPECIALIST, RETAIL CUSTOMER SERVICE SPECIALIST-C Referring Provider Active Start: February 24, 2025 End: February 24, 2025 Team Status: Active Member Role/Relationship Status Dates Shira Arias NP, RETAIL CUSTOMER SERVICE SPECIALIST-C Primary Care Provider Active Start: March 08, 2025 End: March 08, 2025 Dr. Camron Redd MD Attending Provider Active Start: March 08, 2025 End: March 08, 2025 Dr. Camron Shoemaker MD Referring Provider Active Start: March 08, 2025 End: March 08, 2025 Team Status: Active Member Role/Relationship Status Dates Shira Arias NP, RETAIL CUSTOMER SERVICE SPECIALIST-C Primary Care Provider Active Start: March 17, 2025 Dr. Camron Shoemaker MD Attending Provider Active Start: March 17, 2025 Dr. Camron Shoemaker MD Referring Provider Active Start: March 17, 2025 Dr. Camron Shoemaker MD Other Provider Active Sta rt: March 17, 2025 Dr. Gray López MD Other Provider Active Star t: March 17, 2025 Team Status: Inactive Member Role/Relationship Status Dates Shira Arias RETAIL CUSTOMER SERVICE SPECIALIST, RETAIL CUSTOMER SERVICE SPECIALIST-C Primary Care Provider Active Start: March 17, 2025 End: March 18, 2025 Dr. Camron Shoemaker MD Admit Provider Active Sta rt: March 17, 2025 End: March 18, 2025 Dr. Camron Shoemaker MD Attending Provider Active Start: March 17, 2025 End: March 18, 2025 Dr. Camron Shoemaker MD Referring Provider Active Start: March 17, 2025 End: March 18, 2025 Dr. Gray López MD Other Provider Active Star t: March 17, 2025 End: March 18, 2025 Team Status: Active Member Role/Relationship Status Dates Shira Arias NP, RETAIL CUSTOMER SERVICE SPECIALIST-C Primary Care Provider Active Start: March 18, 2025 Dr. Camron Shoemaker MD Admit Provider Active Sta rt: March 18, 2025 Dr. Camron Shoemaker MD Attending Provider Active Start: March 18, 2025 Dr. Camron Shoemaker MD Referring Provider Active Start: March 18, 2025 Dr. Camron Shoemaker MD Other Provider Active Sta rt: March 18, 2025 Dr. Gray López MD Other Provider Active Star t: March 18, 2025 Team Status: Inactive Member Role/Relationship Status Dates Shira Arias RETAIL CUSTOMER SERVICE SPECIALIST, RETAIL CUSTOMER SERVICE SPECIALIST-C Primary Care Provider Active Start: March 25, 2025 End: March 25, 2025 Shira Arias NP, RETAIL CUSTOMER SERVICE SPECIALIST-C Referring Provider Active Start: March 25, 2025 End: March 25, 2025 Bing Temple PA, PA-C Attending Provider Active Start: March 25, 2025 End: March 25, 2025 Team Status: Active Member Role/Relationship Status Dates Shira Arias RETAIL CUSTOMER SERVICE SPECIALIST, RETAIL CUSTOMER SERVICE SPECIALIST-C Primary Care Provider Active Start: March 30, 2025 Bing Temple PA, PA-C Attending Provider Active Start: March 30, 2025 Bing Temple PA, PA-C Referring Provider Active Start: March 30, 2025 Team Status: Inactive Member Role/Relationship Status Dates Shira Arias RETAIL CUSTOMER SERVICE SPECIALIST, RETAIL CUSTOMER SERVICE SPECIALIST-C Primary Care Provider Active Start: March 31, 2025 End: March 31, 2025 Shira Arias RETAIL CUSTOMER SERVICE SPECIALIST, RETAIL CUSTOMER SERVICE SPECIALIST-C Referring Provider Active Start: March 31, 2025 End: March 31, 2025 Bing Temple PA, PA-C Attending Provider Active Start: March 31, 2025 End: March 31, 2025 Team Status: Inactive Member Role/Relationship Status Dates Shira Arias RETAIL CUSTOMER SERVICE SPECIALIST, RETAIL CUSTOMER SERVICE SPECIALIST-C Primary Care Provider Active Start: March 30, 2025 End: March 30, 2025 Bing Temple PA, PA-C Attending Provider Active Start: March 30, 2025 End: March 30, 2025 Bing Temple PA, PA-C Referring Provider Active Start: March 30, 2025 End: March 30, 2025 Team Status: Inactive Member Role/Relationship Status Dates Shira Arias RETAIL CUSTOMER SERVICE SPECIALIST, RETAIL CUSTOMER SERVICE SPECIALIST-C Primary Care Provider Active Start: April 07, 2025 End: April 07, 2025 Shira Arias RETAIL CUSTOMER SERVICE SPECIALIST, RETAIL CUSTOMER SERVICE SPECIALIST-C Referring Provider Active Start: April 07, 2025 End: April 07, 2025 Bing Temple PA, PA-C Attending Provider Active Start: April 07, 2025 End: April 07, 2025 Team Status: Active Member Role/Relationship Status Dates Shira Arias RETAIL CUSTOMER SERVICE SPECIALIST, RETAIL CUSTOMER SERVICE SPECIALIST-C Primary Care Provider Active Start: January 05, 2025 Michela Sal RETAIL CUSTOMER SERVICE SPECIALIST, RETAIL CUSTOMER SERVICE SPECIALIST-C Attending Provider Active Start: January 05, 2025 Michela Sal RETAIL CUSTOMER SERVICE SPECIALIST, RETAIL CUSTOMER SERVICE SPECIALIST-C Referring Provider Active Start: January 05, 2025 Team Status: Inactive Member Role/Relationship Status Dates Shira Arias RETAIL CUSTOMER SERVICE SPECIALIST, RETAIL CUSTOMER SERVICE SPECIALIST-C Primary Care Provider Active Start: February 24, 2025 End: February 24, 2025 Michela Sal RETAIL CUSTOMER SERVICE SPECIALIST, RETAIL CUSTOMER SERVICE SPECIALIST-C Attending Provider Active Start: February 24, 2025 End: February 24, 2025 Michela Sal RETAIL CUSTOMER SERVICE SPECIALIST, RETAIL CUSTOMER SERVICE SPECIALIST-C Referring Provider Active Start: February 24, 2025 End: February 24, 2025 Team Status: Active Member Role/Relationship Status Dates Shira Arias NP, RETAIL CUSTOMER SERVICE SPECIALIST-C Primary Care Provider Active Start: March 08, 2025 End: March 08, 2025 Dr. Camron Redd MD Attending Provider Active Start: March 08, 2025 End: March 08, 2025 Dr. Camron Shoemaker MD Referring Provider Active Start: March 08, 2025 End: March 08, 2025 Team Status: Active Member Role/Relationship Status Dates Shira Arias NP, RETAIL CUSTOMER SERVICE SPECIALIST-C Primary Care Provider Active Start: March 17, 2025 Dr. Camron Shoemaker MD Attending Provider Active Start: March 17, 2025 Dr. Camron Shoemaker MD Referring Provider Active Start: March 17, 2025 Dr. Camron Shoemaker MD Other Provider Active Sta rt: March 17, 2025 Dr. Gray López MD Other Provider Active Star t: March 17, 2025 Team Status: Inactive Member Role/Relationship Status Dates Shira Arias NP, RETAIL CUSTOMER SERVICE SPECIALIST-C Primary Care Provider Active Start: March 17, 2025 End: March 18, 2025 Dr. Camron Shoemaker MD Admit Provider Active Sta rt: March 17, 2025 End: March 18, 2025 Dr. Camron Shoemaker MD Attending Provider Active Start: March 17, 2025 End: March 18, 2025 Dr. Camron Shoemaker MD Referring Provider Active Start: March 17, 2025 End: March 18, 2025 Dr. Gray López MD Other Provider Active Star t: March 17, 2025 End: March 18, 2025 Team Status: Active Member Role/Relationship Status Dates Shira Arias NP, RETAIL CUSTOMER SERVICE SPECIALIST-C Primary Care Provider Active Start: March 18, 2025 Dr. Camron Shoemaker MD Admit Provider Active Sta rt: March 18, 2025 Dr. Camron Shoemaker MD Attending Provider Active Start: March 18, 2025 Dr. Camron Shoemaker MD Referring Provider Active Start: March 18, 2025 Dr. Camron Shoemaker MD Other Provider Active Sta rt: March 18, 2025 Dr. Gray López MD Other Provider Active Star t: March 18, 2025 Team Status: Inactive Member Role/Relationship Status Dates Shira Arias RETAIL CUSTOMER SERVICE SPECIALIST, RETAIL CUSTOMER SERVICE SPECIALIST-C Primary Care Provider Active Start: March 25, 2025 End: March 25, 2025 Shira Arias RETAIL CUSTOMER SERVICE SPECIALIST, RETAIL CUSTOMER SERVICE SPECIALIST-C Referring Provider Active Start: March 25, 2025 End: March 25, 2025 Bing Temple PA, PA-C Attending Provider Active Start: March 25, 2025 End: March 25, 2025 Team Status: Inactive Member Role/Relationship Status Dates Shira Arias RETAIL CUSTOMER SERVICE SPECIALIST, RETAIL CUSTOMER SERVICE SPECIALIST-C Primary Care Provider Active Start: March 30, 2025 End: March 30, 2025 Bing Temple PA, PA-C Attending Provider Active Start: March 30, 2025 End: March 30, 2025 Bingángel Temple PA, PA-C Referring Provider Active Start: March 30, 2025 End: March 30, 2025 Team Status: Inactive Member Role/Relationship Status Dates Shira Arias RETAIL CUSTOMER SERVICE SPECIALIST, RETAIL CUSTOMER SERVICE SPECIALIST-C Primary Care Provider Active Start: March 31, 2025 End: March 31, 2025 Shira Arias RETAIL CUSTOMER SERVICE SPECIALIST, RETAIL CUSTOMER SERVICE SPECIALIST-C Referring Provider Active Start: March 31, 2025 End: March 31, 2025 Bing Temple PA, PA-C Attending Provider Active Start: March 31, 2025 End: March 31, 2025 Team Status: Inactive Member Role/Relationship Status Dates Shira Arias RETAIL CUSTOMER SERVICE SPECIALIST, RETAIL CUSTOMER SERVICE SPECIALIST-C Primary Care Provider Active Start: April 07, 2025 End: April 07, 2025 Shira Arias RETAIL CUSTOMER SERVICE SPECIALIST, RETAIL CUSTOMER SERVICE SPECIALIST-C Referring Provider Active Start: April 07, 2025 End: April 07, 2025 Bing Temple PA, PA-C Attending Provider Active Start: April 07, 2025 End: April 07, 2025 Team Status: Inactive Member Role/Relationship Status Dates Shira Arias RETAIL CUSTOMER SERVICE SPECIALIST, RETAIL CUSTOMER SERVICE SPECIALIST-C Primary Care Provider Active Start: May 03, 2025 End: May 03, 2025 Shira Arias RETAIL CUSTOMER SERVICE SPECIALIST, RETAIL CUSTOMER SERVICE SPECIALIST-C Referring Provider Active Start: May 03, 2025 End: May 03, 2025 Dr. Denys Babin DO Attending Provider Active Start: May 03, 2025 End: May 03, 2025 Team Status: Active Member Role/Relationship Status Dates Shira Arias RETAIL CUSTOMER SERVICE SPECIALIST, RETAIL CUSTOMER SERVICE SPECIALIST-C Primary Care Provider Active Start: May 03, 2025 Shira Arias RETAIL CUSTOMER SERVICE SPECIALIST, RETAIL CUSTOMER SERVICE SPECIALIST-C Referring Provider Active Start: May 03, 2025 Dr. Denys Babin DO Attending Provider Active Start: May 03, 2025 Dr. Denys Babin , Other Provider Active St art: May 03, 2025 (unrecognized sect ion and content) No Status Records FoundNo Status Records FoundNo Status Records FoundNo Status Records Found INFORMATION SOURCE (unrecogn ized section and content) DATE CREATED AUTHOR 05/29/2024 [facility] ([place]) DATE CREATED AUTHOR AUTHOR'S ORGANIZ ATION 08/16/2024 [facility] DATE CREATED AUTHOR AUTHOR'S ORGANIZ ATION 02/05/2025 [facility] DATE CREATED AUTHOR AUTHOR'S ORGANIZ ATION 05/02/2025 [facility] FOR RECORDS PERTAINING TO PATIENTS WHO [...] BE BASED ON THE PRIMARY CLINICAL RECORDS. [employer] [facility]. provides no warranty or guarantee of the accuracy or completeness of information in this document.
[2025-05-05] VITALS (21 sets, daily range): BP systolic 94–127; BP diastolic 63–86; PULSE 81–109; RESP 16–20; TEMP 36.2–38.3; O2SAT 93–98; BMI 29.9
[2025-05-05 00:12] LABS: Hematocrit 44.6 % (40-54); Hemoglobin 15.5 g/dL (13.0-16.5); Immature Granulocytes Count 0.090 X10^3/uL (0.0-0.0); Mean Corp Hgb Conc 34.8 g/dL (32-36); Mean Corpuscular Volume 86.3 fL (80-94); Mean Platelet Vol. 9.1 fl (6.2-12.0); NRBC Flagged by Analyzer 0 % (0-5); POSITIVE DIFFERENTIAL YES; Platelet Count 182 K/mm3 (150-450); RBC Distribution Width CV 12.6 % (11.6-14.6); RBC Distribution Width SD 39.7 fl (35.1-43.9); Red Blood Count 5.17 M/mm3 (4.6-6.2); White Blood Count 9.6 K/mm3 (4.4-11.0)
[2025-05-05 00:23] LABS: Lipase 55 U/L (13-75); Procalcitonin 0.75 ng/mL (<=0.10)
[2025-05-05] MEDS: Ketorolac 30 MG/ML Syringe IV (00:28)
[2025-05-05] MEDS: 0.9% Normal Saline (1000mL) 1,000 ML 999 ML IV ×2 (00:28→02:46)
[2025-05-05 00:34] LABS: AST(SGOT) 493 U/L (<=37); Alanine Aminotransfer ALT/SGPT 883 U/L (<=46); Albumin, Serum 4.2 g/dL (3.5-5.0); Alkaline Phosphatase 158 U/L (40-129); Anion Gap 14 (5-15); BUN 12 mg/dL (4-19); BUN/Creat Ratio 10.8 RATIO (10-20); Bilirubin, Direct 3.03 mg/dL (0.00-0.30); Calcium,Total 9.1 mg/dL (7.6-11.0); Carbon Dioxide 20.9 mmol/L (21.0-32.0); Chloride 103 mmol/L (98-108); Estimated Creatinine Clearance 104.76 ml/min (50-250); Globulin 2.6 g/dL (2.2-4.2); Glucose 134 mg/dL (70-99); Potassium 3.4 mmol/L (3.3-5.1)
[2025-05-05] MEDS: Piperacil/Tazobactam 3.375 GM in 0.9% Normal Saline (50mL MB+) 50 ML IV ×4 (01:22→22:37)
--- NOTE | 2025-05-05 01:48 | EX.ED.DYSGE1 ---
HPI History of Present Illness Chief Complaint: Fever Informant: patient and spouse/S.O. Narrative Narrative: Patient is a 39-year-old male who in November was admitted to the hospital secondary to choledocholithiasis and needed a biliary stent placed. Patient and state that after stent removal he became sick and needed admitted to the hospital for systemic infection. Patient states in February roughly 6 weeks ago he had his gallbladder removed but then still needed a repeat stent placed. Patient and report that his stent was removed roughly 1 day ago and this evening he spiked fevers up to 103 at home. reports that she noticed that his eyes were changing color again and she is concerned that he may be developing a repeat infection secondary to his fever and with this presents for evaluation. Other than fever the patient states there has been no symptoms such as headache congestion cough nausea vomiting diarrhea or dysuria and he reports that he has no belly pain at rest [facility] Medical History Bacteremia due to Gram-negative bacteria Drug-induced liver injury Jaundice History of biliary stent insertion Elevation of levels of liver transaminase levels Hyperbilirubinemia Overweight (BMI 25.0-29.9) No pertinent past medical history Home Medications ?Medication ?Instructions ?Recorded ?Last Taken ?Type NK 05/05/25 Unknown History Allergy/AdvReac Type Severity Reaction Status Date / Time No Known Allergies Allergy Verified 05/04/25 23:20 Family History (Updated 05/05/25 @ 02:[address] Eileen Brunson MD) Mother No problems noted. Father No problems noted. Surgical History Hx laparoscopic cholecystectomy History of ERCP Social History household members: spouse Smoking Status: Never smoker alcohol intake: never substance use type: does not use ROS ROS ED Constitutional Constitutional ED: Reports chills and fever(s) Eyes Eyes: Denies change in vision ENT ENT ED: Denies ear pain, rhinorrhea or sore throat Cardiovascular Cardiovascular: Denies chest pain Respiratory/Chest Respiratory/Chest: Denies cough or dyspnea Gastrointestinal Gastrointestinal: Denies abdominal pain, diarrhea, nausea or vomiting Genitourinary Genitourinary ED: Denies dysuria Musculoskeletal Musculoskeletal: Denies myalgias Integumentary Denies rash Neurologic Neurologic: Denies headache(s) EXAM Physical Exam Const Vital Signs: 05/04/25 23:21 05/04/25 23:24 05/05/25 00:24 Temperature 100.5 F H 100.5 F H 99.5 F H Temperature Source Oral Oral Oral Pulse Rate 134 H 134 H 106 H Respiratory Rate 18 18 18 Respiratory Effort Respiratory Pattern Blood Pressure 94/70 94/70 114/71 Blood Pressure Mean 78 78 85 Pulse Ox 95 95 96 Oxygen Delivery Method Room Air Room Air Room Air 05/05/25 01:00 05/05/25 01:00 05/05/25 01:16 Temperature 99.5 F H Temperature Source Oral Pulse Rate 100 103 H Respiratory Rate 20 H Respiratory Effort Normal Respiratory Pattern Normal Blood Pressure 107/67 107/67 Blood Pressure Mean 80 80 Pulse Ox 95 95 Oxygen Delivery Method Room Air Room Air Positive well nourished and well developed General Appearance ED: well developed; Negative for pallor HEENT HEENT Narrative: Normocephalic atraumatic No tongue or lip swelling no oral lesions no airway edema or compromise No secondary findings in the posterior pharynx to suggest infection Eyes PERRL and EOMs intact bilaterally General Eye ED: Yes scleral icterus Neck supple Neck Narrative: No nuchal rigidity or meningeal signs Chest Wall palpation of chest normal Resp normal respiratory effort and clear to auscultation bilaterally Resp Narrative: No nasal flaring retractions tachypnea or accessory muscle use Cardio regular rhythm Rate: tachycardic and other Other Details: Tachycardic rate with regular rhythm No murmurs rubs or gallop Radial and carotid pulses are equal and symmetric GI normal to inspection, nondistended, normoactive bowel sounds, non-tender, non-distended and no masses GI Narrative: Soft nontender and nondistended with normal active bowel sounds No voluntary guarding or rigidity or pulsatile mass No peritoneal signs Auscultation: normoactive bowel sounds Palpation: soft Extremity normal to inspection Extremity Narrative: No asymmetric edema no pitting edema negative Homans' sign bilaterally Neuro oriented x3, CN's II-XII intact bilaterally and no sensory deficits noted Sensorium / Orientation: alert Motor Exam: strength 5/5 throughout Psych mental status grossly normal Skin no rashes or lesions noted General Skin Exam: jaundice; Negative for pallor MDM MDM MDM Narrative Medical decision making narrative: Patient arrived to the ER febrile and mildly tachycardic most consistent with his reported fever up to 103 at home. He did take Tylenol prior to arrival. The patient has no sick symptoms such as nausea vomiting diarrhea dysuria cough congestion or sore throat. However with his previous history there is high likelihood for repeat biliary stricture and secondary infection. Therefore basic labs with blood cultures and a CT of the abdomen pelvis were obtained. Patient's white count is normal there is no lactic acidosis and his neutrophil count is only elevated by approximately 1. Procalcitonin is 0.75 indicating potential for infection. The liver enzymes are grossly elevated which would correlate with his jaundice and scleral icterus and most likely indicate that he has a repeat stricturing of his common bile duct. The radiologist stated that the gallbladder was irregular in shape with potential perforation. Chart review reveals that roughly 6 weeks ago his cholecystectomy was only a partial removal. The case was discussed with general surgeon Dr. Lopez who states that the irregular appearance of the gallbladder would correlate with the fact that it was just a partial cholecystectomy and does not fee it could be perforated based on this surgical procedure. He states that without leukocytosis or lactic acidosis or pain he does not feel there is emergent need for surgical intervention. Case was also discussed with his stove bottom worker Dr. Babin. He feels that there is repeat stricture formation causing his elevated liver enzymes and believes he will most likely need a permanent metal stent. He recommends admission to the hospital so he can perform this procedure. He also agrees with continued IV Zosyn with concern for developing secondary infection. The case was then discussed with the hospitalist who agrees to accept the patient to her service for continued monitoring and care at this time. With IV hydration and administration of Toradol the patient became afebrile and blood pressure remained stable. Therefore with improvement of his vitals and no leukocytosis or lactic acidosis patient is not showing findings for sepsis at this time and does not need placed in the ICU History & Record Review Discussion w/independent historian: Patient and Significant other Lab Data Attestation: I reviewed the patient's lab results. Labs: Laboratory Results - last 24 hr 05/04/25 23:30 WBC 9.6 RBC 5.17 Hgb 15.5 Hct 44.6 MCV 86.3 MCH 30.0 MCHC 34.8 RDW Std Deviation 39.7 RDW Coeff of Joanne 12.6 Plt Count 182 MPV 9.1 Immature Gran % (Auto) 0.900 Neut % (Auto) 91.5 H Lymph % (Auto) 3.4 L [place] % (Auto) 4.1 Eos % (Auto) 0.0 Baso % (Auto) 0.1 Absolute Neuts (auto) 8.8 H Absolute Lymphs (auto) 0.33 L Nucleated RBC % 0 Sodium 138 Potassium 3.4 Chloride 103 Carbon Dioxide 20.9 L Anion Gap 14 BUN 12 Creatinine 1.07 Estim Creat Clear Calc 104.76 Est GFR (MDRD) Non-Af 89 BUN/Creatinine Ratio 10.8 Glucose 134 H Lactic Acid 1.1 Calcium 9.1 Total Bilirubin 4.25 H Direct Bilirubin 3.03 H AST 493 H ALT 883 H Alkaline Phosphatase 158 H Total Protein 6.8 Albumin 4.2 Globulin 2.6 Lipase 55 Procalcitonin 0.75 H Radiography Diagnostic Testing: Clinical Impression(s) from Imaging Studies Abdomen/Pelvis CT 05/04/25 23:50 IMPRESSION: Suspected cholecystitis possibly with gallbladder perforation. Dilated biliary tree, cholangitis, and choledocholithiasis. Follow up imaging as clinically determined. Reading Location: [place] [id number] Management Discussion w/another healthcare provider: Hospitalist and [employer] Discharge Plan Dx/Rx/DC Orders Clinical Impression: Choledocholithiasis with acute cholecystitis, Elevated liver enzymes, Pyrexia Disposition Disposition: [facility] Discharge Date/Time: 05/05/25 02:20
--- NOTE | 2025-05-05 01:50 | PCM.HP.STD ---
HPI - General General Date of Admission: 05/05/25 Date of Service: 05/05/25 Chief Complaint: Fever HPI Narrative The patient is a 39 yo M w/ PMHx: Hx Obesity, Recurrent choledocholithiasis with cholangitis with severe chronic cholecystitis status post 03/17/2025 subtotal laparoscopic cholecystectomy with a fenestrating type drain placed with primary repair of umbilical hernia, recently noted 05/03/25 outpatient laparoscopic cholecystectomy scheduled however during the course of the operation he had severe evidence of chronic cholecystitis precluding a clear view of the biliary anatomy therefore a subtotal cholecystectomy was performed with a drain placement who now re-presents to the [facility] ED on 05/05/25 with history of onset fevers starting over the last 24 hours prompting ED evaluation. He denies any associated abdominal pain, nausea or emesis. He does report also having had chills. From review of records patient 05/03/25 ERCP with the upper GI tract grossly normal with a single localized biliary stricture found in the middle third of the main bile duct likely postsurgical with specimen cytologically taken, left and right hepatic ducts and all intrahepatic branches markedly dilated, status postcholecystectomy evident, choledocholithiasis evident, complete removal accomplished by biliary sphincterotomy and balloon extraction, biliary sphincterotomy performed, 1 stent removed from the biliary tree with cells obtained for cytology in the middle third of the main bile duct. Workup in the ED included T1 100.5, heart rate 134, BP 94/70, respiratory rate 18, 95% on room air with most recent repeat vitals T99.5, heart rate 103, BP 107/67, respiratory rate 20, 95% on room air, CBC with WC 9.6, hemoglobin 15.5, platelet 182 with left shift and lymphopenia, CMP with complex at 20.9, glucose 134, lactic acid 1.1, T. bili 4.25, D bili 3.03, AST/ALT 493/883, alk phos 158, lipase 55, procalcitonin 0.75, CT abdomen pelvis with IV contrast only with suspected cholecystitis with possible gallbladder perforation, dilated biliary tree, cholangitis and choledocholithiasis. In the ED patient administered toradol 30 mg IV x 1, Zosyn 3.375 gm IV x 1, 1L NS. ED discussed case with Dr. Babin and also with Dr. Lopez who noted no intention of further surgical intervention following CT review and that these findings of possible GB performation s/p prior partial cholecystectomy were an expected finding. FOR[facility]LY [facility], LATER [facility] Medical History Bacteremia due to Gram-negative bacteria Drug-induced liver injury Jaundice History of biliary stent insertion Elevation of levels of liver transaminase levels Hyperbilirubinemia Overweight (BMI 25.0-29.9) No pertinent past medical history Home Medications ?Medication ?Instructions ?Recorded ?Last Taken ?Type NK 05/05/25 Unknown History Allergy/AdvReac Type Severity Reaction Status Date / Time No Known Allergies Allergy Verified 05/04/25 23:20 Family History Mother No problems noted. Father No problems noted. Surgical History Hx laparoscopic cholecystectomy History of ERCP Social History (Updated 05/05/25 @ 01:[address] Eileen Brunson MD) household members: spouse Smoking Status: Never smoker alcohol intake: never substance use type: does not use ROS ROS Narrative Admission Review of Systems: CONSTITUTIONAL: No weight loss, + fever, chills, weakness or fatigue. HEENT: Eyes: No visual loss, blurred vision, double vision or yellow sclerae. Ears, Nose, Throat: No hearing loss, sneezing, congestion, runny nose or sore throat. SKIN: No rash or itching, lesions, wounds. CARDIOVASCULAR: No chest pain, chest pressure or chest discomfort, palpitations, edema, orthopnea, syncopal events. RESPIRATORY: No shortness of breath, cough or sputum, wheezing, hemoptysis. GASTROINTESTINAL: No anorexia, nausea, vomiting or diarrhea, abdominal pain, melena, BRBPR. GENITOURINARY: No dysuria, frequency, urgency or retention. NEUROLOGICAL: No headache, dizziness, syncope, paralysis, ataxia, numbness or tingling in the extremities, focal weakness, change in bowel or bladder control, seizure. MUSCULOSKELETAL: No muscle, back pain, joint pain or stiffness. HEMATOLOGIC: No anemia, bleeding or bruising. LYMPHATICS: No enlarged nodes. No history of splenectomy. PSYCHIATRIC: No history of depression or anxiety. ENDOCRINOLOGIC: No reports of sweating, cold or heat intolerance. No polyuria or polydipsia. ALLERGIES: No history of asthma, hives, eczema or rhinitis. Vital Signs Vital Signs Vital Signs: 05/04/25 23:21 05/04/25 23:24 05/05/25 00:24 Temperature 100.5 F H 100.5 F H 99.5 F H Temperature Source Oral Oral Oral Pulse Rate 134 H 134 H 106 H Respiratory Rate 18 18 18 Respiratory Effort Respiratory Pattern Blood Pressure 94/70 94/70 114/71 Blood Pressure Mean 78 78 85 Pulse Ox 95 95 96 Oxygen Delivery Method Room Air Room Air Room Air 05/05/25 01:00 05/05/25 01:00 05/05/25 01:16 Temperature 99.5 F H Temperature Source Oral Pulse Rate 100 103 H Respiratory Rate 20 H Respiratory Effort Normal Respiratory Pattern Normal Blood Pressure 107/67 107/67 Blood Pressure Mean 80 80 Pulse Ox 95 95 Oxygen Delivery Method Room Air Room Air Weight Weight: 207 lb 14.4 oz Body Mass Index (BMI) 29.8 Physical Exam Narrative Physical Examination: General: Awake, alert, oriented x 3 and cooperative, laying in the bed, fatigued, ill-appearing. Skin: Normal turgor, no icterus, no cyanosis, no significant severe jaundiced appearance noted despite LFT/bilirubin levels. HEENT: AT/NC, EOMI, PERRLA, moderately dry MM, no carotid bruits or JVD noted. Lungs: CTA bilaterally, moderate effort, mild decrease BL bases, no rales, ronchi or wheezing. Heart: Regular rate and rhythm; no gallop, rub audible. Abdomen: Soft, NTTP, ND, hyperactive BS, no HSM. Extremities: No cyanosis, clubbing, or edema. Neurological: Patient awake, alert, oriented x 3, cognitive function intact; pupils equally reactive to light and accommodation, cranial nerves grossly normal, moving all 4 extremities, no focal deficits, strength preserved. Psychiatric: Affect appears fatigued, ill-appearing, no acute evidence of depressive or anxiety feelings. Results Lab / Micro Data 05/04/25 23:30 05/04/25 23:30 Labs: Laboratory Results - last 24 hr 05/04/25 23:30: WBC 9.6, RBC 5.17, Hgb 15.5, Hct 44.6, MCV 86.3, MCH 30.0, MCHC 34.8, RDW Std Deviation 39.7, RDW Coeff of Joanne 12.6, Plt Count 182, MPV 9.1, Immature Gran % (Auto) 0.900, Neut % (Auto) 91.5 H, Lymph % (Auto) 3.4 L, [place] % (Auto) 4.1, Eos % (Auto) 0.0, Baso % (Auto) 0.1, Absolute Neuts (auto) 8.8 H, Absolute Lymphs (auto) 0.33 L, Nucleated RBC % 0, Sodium 138, Potassium 3.4, Chloride 103, Carbon Dioxide 20.9 L, Anion Gap 14, BUN 12, Creatinine 1.07, Estim Creat Clear Calc 104.76, Est GFR (MDRD) Non-Af 89, BUN/Creatinine Ratio 10.8, Glucose 134 H, Lactic Acid 1.1, Calcium 9.1, Total Bilirubin 4.25 H, Direct Bilirubin 3.03 H, AST 493 H, ALT 883 H, Alkaline Phosphatase 158 H, Total Protein 6.8, Albumin 4.2, Globulin 2.6, Lipase 55, Procalcitonin 0.75 H Imaging Radiology Impression Abdomen/Pelvis CT 05/04/25 23:50 IMPRESSION: Suspected cholecystitis possibly with gallbladder perforation. Dilated biliary tree, cholangitis, and choledocholithiasis. Follow up imaging as clinically determined. Reading Location: [place] [id number] Assessment & Plan Assessment/Plan (1) Choledocholithiasis with acute cholecystitis: PLAN: Plan The patient is a 39 yo M w/ PMHx: Hx Obesity, Recurrent choledocholithiasis with cholangitis with severe chronic cholecystitis status post 03/17/2025 subtotal laparoscopic cholecystectomy with a fenestrating type drain placed with primary repair of umbilical hernia, recently noted 05/03/25 outpatient laparoscopic cholecystectomy scheduled however during the course of the operation he had severe evidence of chronic cholecystitis precluding a clear view of the biliary anatomy therefore a subtotal cholecystectomy was performed with a drain placement who now re-presents to the [facility] ED on 05/05/25 with history of onset fevers starting over the last 24 hours prompting ED evaluation. #1. Recurrent Acute Choledocholithiasis with significant hyperbilirubinemia and acute transaminitis with Acute Cholecystitis status post previous partial cholecystectomy diverted secondary to precluded clear view of biliary anatomy: Will admit to PCU given stable vital signs however in the past patient had been significantly ill thus we will maintain the telemetry to be cautious, we will continue aggressive IV fluids, will maintain on IV Zosyn, gastroenterology and general surgery consulted, will continue to trend CBC, CMP, maintain n.p.o. status, maintain on IV PPI. #2. Obesity: Weight loss and lifestyle changes encouraged. #3. DVT prophylaxis: SCDs, hold hemoprophylaxis given planned intervention. Charges/Coding Visit Charges Inpatient E&M: 21655 Init Hosp L2
--- OUTSIDE RECORDS SUMMARY | 2025-05-05 02:16 | XMS RPT_ITS | CCD ---
Author Organization [facility] Care Team Providers Care Assisted Living Assistant Name Role Phone LORSON TREATING MACHINE OPERATOR-CUTTING AND BONING SUPERVISOR, SHIRA Primary Care Physician SWANSIGER TREATING MACHINE OPERATOR-CUTTING AND BONING SUPERVISOR, CAYLA Griffiths Attending U navailable LORSON TREATING MACHINE OPERATOR-CUTTING AND BONING SUPERVISOR, STROUD Primary Care Unavail able SWANSIGER TREATING MACHINE OPERATOR-CUTTING AND BONING SUPERVISOR, CAYLA Griffiths Attending U navailable LORSON TREATING MACHINE OPERATOR-CUTTING AND BONING SUPERVISOR, STROUD Primary Care Unavail able LORSON TREATING MACHINE OPERATOR-CUTTING AND BONING SUPERVISOR, SHIRA Attending Unavail able LORSON TREATING MACHINE OPERATOR-CUTTING AND BONING SUPERVISOR, STROUD Primary Care Unavail able SWANSIGER TREATING MACHINE OPERATOR-CUTTING AND BONING SUPERVISOR, CAYLA Griffiths Attending U navailable LORSON TREATING MACHINE OPERATOR-CUTTING AND BONING SUPERVISOR, STROUD Primary Care Unavail able LORSON TREATING MACHINE OPERATOR-CUTTING AND BONING SUPERVISOR, STROUD Primary Care Unavail able SWANSIGER TREATING MACHINE OPERATOR-CUTTING AND BONING SUPERVISOR, CAYLA Griffiths Attending U navailable SEFFENS TREATING MACHINE OPERATOR-CUTTING AND BONING SUPERVISOR, VANGIE Attending Unavai lable LORSON TREATING MACHINE OPERATOR-CUTTING AND BONING SUPERVISOR, STROUD Primary Care Unavail able Lorson HOUSEHOLD APPLIANCE REPAIRER-C, [place] Primary Care Provider [phone] Dr. Rod Ross DO Emergency Provider Dr. Seth Paiz DO Admit Provider Unavail able Dr. Seth Paiz DO Other Provider Unavail able Dr. Edwina Kimball DO Attending Provider [phone] Dr. Cruz Arciniega DO Other Provider [phone] Dr. Seth Paiz DO Referring Provider Unav ailDr. Denys Suarez DO Attending Provider Dr. Jose Lubin MD Attending Provider [phone] Dr. Jose Lubin MD Referring Provider Dr. Cruz Arciniega DO Attending Provider Dr. Edwina Kimball DO Other Provider Lorson HOUSEHOLD APPLIANCE REPAIRER-C, Shira Referring Provider [phone] uH CEVALLOS, Dr. Maya Attending Provider Hu CEVALLOS, Dr. Maya Referring Provider Olaf NAVARRO, Dr. Mcfarlane Other Provider Holly NAVARRO, Dr. Davey Emergency Provider Primitivo NAVARRO, Dr. Arroyo Admit Provider Olaf NAVARRO, Dr. Mcfarlane Referring Provider Navid CEVALLOS, Dr. Lyon Other Provider [phone] Irina CEVALLOS, Dr. Coleman Other Provider Hu CEVALLOS, Dr. Maya Other Provider Navid CEVALLOS, Dr. Lyon Attending Provider de Emil NAVARRO, Dr. Ann Referring Provider Unav ailable Friend , Dr. Mcfarlane Attending Provider Amee CEVALLOS, Dr. Garcia Attending Provider Khang HOUSEHOLD APPLIANCE REPAIRER-C, Cayla Attending Provider Khang HOUSEHOLD APPLIANCE REPAIRER-C, Cayla Referring Provider SANDIE TREATING MACHINE OPERATOR-CUTTING AND BONING SUPERVISOR, CAYLA Griffiths Attending U navailable LORSON TREATING MACHINE OPERATOR-CUTTING AND BONING SUPERVISOR, [facility] Care Unavail able SANDIE TREATING MACHINE OPERATOR-CUTTING AND BONING SUPERVISOR, CAYLA Griffiths Attending U navailable LORSON TREATING MACHINE OPERATOR-CUTTING AND BONING SUPERVISOR, [facility] Care Unavail able MICHENER TREATING MACHINE OPERATOR-CUTTING AND BONING SUPERVISOR, MICHELA Griffiths Attending Unav ailable LORSON TREATING MACHINE OPERATOR-CUTTING AND BONING SUPERVISOR, [facility] Care Unavail able Lorson HOUSEHOLD APPLIANCE REPAIRER-C, [place] Primary Care Provider John CEVALLOS, Dr. Vasquez Attending Provider John CEVALLOS, Dr. Vasquez Referring Provider Juana HOUSEHOLD APPLIANCE REPAIRER-C, Shira Referring Provider [phone] Olaf NAVARRO, Dr. Mcfarlane Attending Provider Primitivo NAVARRO, Dr. Arroyo Other Provider Hu CEVALLOS, Dr. Maya Attending Provider Hu CEVALLOS, Dr. Maya Referring Provider Jonelle HOUSEHOLD APPLIANCE REPAIRER-C, Michela Griffiths Attending Provider Unava alexa Sal NP-C, Michela Griffiths Referring Provider Unava alexa Redd MD, Dr. Lyon Attending Provider Navid CEVALLOS, Dr. Lyon Referring Provider Rene CEVALLOS, Dr. Castellano Other Provider Unavailable Navid CEVALLOS, Dr. Lyon Admit Provider Maverick PA-C, Bing Attending Provider Maverick PA-C, Bing Referring Provider Juana HOUSEHOLD APPLIANCE REPAIRER, [facility] Unavailable Camron Shoemaker Attending Unavailable Camron Shoemaker Referring Unavailable Camron Shoemaker Admitting Unavailable Gray López Consulting Unavailable Bing Hadley Attending Unavailable Lorson HOUSEHOLD APPLIANCE REPAIRER, [facility] Unavailable Bing Hadley Referring Unavailable Francesco Lui Attending Unavailable Francesco Lui Referring Unavailable Lorson HOUSEHOLD APPLIANCE REPAIRER, [facility] Unavailable Camron Redd Attending Unavailable Lorson HOUSEHOLD APPLIANCE REPAIRER, [facility] Unavailable Camron Shoemaker Referring Unavailable Cruz Arciniega Consulting Unavailable Cruz Arciniega Admitting Unavailable Francesco Lui Attending Unavailable Lorson HOUSEHOLD APPLIANCE REPAIRER, [facility] Unavailable Camron Shoemaker Consulting Unavailable Jared Arevalo Consulting Unavailable Lorson HOUSEHOLD APPLIANCE REPAIRER, [place] Referring Unavailable Lorson HOUSEHOLD APPLIANCE REPAIRER, [place] [facility] Unavailable Olaf, Denys Attending Unavailable Cayla Quiñonez Consulting Unavailable Lorson HOUSEHOLD APPLIANCE REPAIRER, [facility] Unavailable Michela Sal Attending Unavailable Rahul Salista K Referring Unavailable Edwina Kimball Attending Unavailable Lorson HOUSEHOLD APPLIANCE REPAIRER, [facility] Unavailable Seth Paiz Admitting Unavailable Seth Paiz Consulting Unavailable Cruz Arciniega Consulting Unavailable Lorson HOUSEHOLD APPLIANCE REPAIRER, [facility] Unavailable Michela Sal Attending Unavailable Rahul Salista K Referring Unavailable Lorson HOUSEHOLD APPLIANCE REPAIRER, [facility] Unavailable Pedro Lopez Attending Unavailable Pedro Lopez Referring Unavailable Olaf, Denys Referring Unavailable Jose Lubin Attending Unavailable Lorson HOUSEHOLD APPLIANCE REPAIRER, [facility] Unavailable Jose Lubin Attending Unavailable AmeeJose vasquez Referring Unavailable Lorson HOUSEHOLD APPLIANCE REPAIRER, [facility] Unavailable Friend, Denys Attending Unavailable Lorson HOUSEHOLD APPLIANCE REPAIRER, [facility] Unavailable Seth Paiz Referring Unavailable Lorson HOUSEHOLD APPLIANCE REPAIRER, [place] Referring Unavailable Francesco Lui Attending Unavailable Lorson HOUSEHOLD APPLIANCE REPAIRER, [facility] Unavailable Lorson HOUSEHOLD APPLIANCE REPAIRER, [place] Referring Unavailable Maverick YOUNG Bing Attending Unavailable Lorson HOUSEHOLD APPLIANCE REPAIRER, [facility] Unavailable Cruz Arciniega Consulting Unavailable Cruz Arciniega Admitting Unavailable Lorson HOUSEHOLD APPLIANCE REPAIRER, [facility] Unavailable Camron Shoemaker Attending Unavailable Mendoza Luikash Referring Unavailable Camron Shoemaker Consulting Unavailable Jared Arevalo Consulting Unavailable Mendoza Luikash Consulting Unavailable Friend, Denys Attending Unavailable Francesco Lui Attending Unavailable Lorson HOUSEHOLD APPLIANCE REPAIRER, [place] Referring Unavailable Friend, Denys Attending Unavailable Lorson HOUSEHOLD APPLIANCE REPAIRER, [facility] Unavailable Friend, Denys Attending Unavailable Lorson HOUSEHOLD APPLIANCE REPAIRER, [facility] Unavailable Seth Paiz Consulting Unavailable Seth Paiz Admitting Unavailable Seth Paiz Referring Unavailable Cruz Arciniega Consulting Unavailable Edwina Kimball Consulting Unavailable Edwina Kimball Attending Unavailable Cruz Arciniega Attending Unavailable Lorson HOUSEHOLD APPLIANCE REPAIRER, [place] Referring Unavailable Friend, Denys Attending Unavailable Lorson HOUSEHOLD APPLIANCE REPAIRER, [facility] Unavailable Friend, Denys Consulting Unavailable Friend, Denys Attending Unavailable Lorson HOUSEHOLD APPLIANCE REPAIRER, [place] Referring Unavailable Lorson HOUSEHOLD APPLIANCE REPAIRER, [facility] Unavailable Lorson HOUSEHOLD APPLIANCE REPAIRER, [facility] Unavailable Calya Quiñonez Attending Unavailable Cayla Quiñonez Referring Unavailable Lorson HOUSEHOLD APPLIANCE REPAIRER, [facility] Unavailable Camron Shoemaker Referring Unavailable Camron Shoemaker Admitting Unavailable Camron Shoemaker Attending Unavailable Rene, Gray Consulting Unavailable Camron Shoemaker Consulting Unavailable Lorson HOUSEHOLD APPLIANCE REPAIRER, [facility] Unavailable Bortz Camron Referring Unavailable BorCamron ortiz Attending Unavailable Rene, Gray Consulting Unavailable Camron Shoemaker Consulting Unavailable Seth Paiz Attending Unavailable Cruz Arciniega Attending Unavailable Lorson HOUSEHOLD APPLIANCE REPAIRER, [facility] Unavailable Cayla Quiñonez Attending Unavailable Lorson HOUSEHOLD APPLIANCE REPAIRER, [place] Referring Unavailable Lorson HOUSEHOLD APPLIANCE REPAIRER, [place] Referring Unavailable Maverick YOUNG, Bing Attending Unavailable Lorson HOUSEHOLD APPLIANCE REPAIRER, [facility] Unavailable Lorson HOUSEHOLD APPLIANCE REPAIRER, [place] Referring Unavailable Maverick YOUNG Bing Attending Unavailable Lorson HOUSEHOLD APPLIANCE REPAIRER, [facility] Unavailable Juana CALLOWAY, [facility] Unavailable Camron Shoemaker Attending Unavailable Juana HOUSEHOLD APPLIANCE REPAIRER, Shira Referring Unavailable Juana HOUSEHOLD APPLIANCE REPAIRER-C, [place] [facility] Provider [phone] Dr. Camron Shoemaker MD Attending Provider Dr. Camron Shoemaker MD Other Provider Juana HOUSEHOLD APPLIANCE REPAIRER-C, Shira Referring Provider Dr. Denys Babin DO Attending Provider Dr. 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 [...] Reference Range Facility MR/PAT.ANEon 04-27-2025 MR/PAT.ANE Normal [facility] Surgery Visit Reporton 04-07 Surgery Visit Report Normal [facility] Surgery Visit Reporton 03-31 Surgery Visit Report Normal [facility] Hepatobilliary Imagingon Hepatobilliary Imaging Normal [facility] Surgery Visit Reporton 03-25 Surgery Visit Report Normal [facility] Absolute lymphocyte countOrd ered By: Camron Shoemaker on 03-18-2025 Lymphocytes Auto (Unsp spec) [#/Vol] 1.52 10*3/uL 0.83-4.51 [facility] Absolute neutrophil countOrd ered By: Camron Shoemaker on 03-18-2025 Neutrophils (Bld) [#/Vol] 6.8 10*3/uL 2.0-7.7 [facility] Anion gap in Serum or Plasma Ordered By: Camron Shoemaker on 03-18-2025 Anion gap [Moles/Vol] 10 mmol/L 5-15 [facility] Automated lymphocyte count a s percentage of total leukocytesOrdered By: Camron Shoemaker on 03-18-2025 Lymphocytes/100 WBC Auto (Unsp spec) 16.5 % Low 19-41 [facility] BUN/creatinine ratioOrdered By: Camron Shoemaker on 03-18-2025 Urea nitrogen/Creatinine [Mass ratio] 11.9 mg/mg 10-20 [facility] Basophil percentageOrdered B y: Camron Shoemaker on 03-18-2025 Basophils/100 WBC (Bld) 0.2 % 0-1 [facility] Bilirubin, totalOrdered By: Camron Shoemaker on 03-18-2025 Bilirubin [Mass/Vol] 0.85 mg/dL 0.00-1.30 [facility] CBC W/Diff, Automatedon - Absolute Lymph 1.52 X10 3/uL Normal 0.83-4.51 [facility] Comment on above: Performed By: #### L 100.0100, L500.4050 ####[facility] [address] [place], [address] Absolute Neut 6.8 X10 3/uL Normal 2.0-7.7 [facility] Comment on above: Performed By: #### L 100.0100, L500.4050 ####[facility] [address] [place], [address] Basophils/100 WBC (Bld) 0.2 % Normal 0-1 [facility] Comment on above: Performed By: #### L 100.0100, L500.4050 ####[facility] [address] [place], [address] Eosinophils/100 WBC (Bld) 0.0 % Normal 0-5 [facility] Comment on above: Performed By: #### L 100.0100, L500.4050 ####[facility] [address] [place], [address] Erythrocyte distribution width (RBC) [Ratio] 13.6 % Normal 11.6-14.6 [facility] Comment on above: Performed By: #### L 100.0100, L500.4050 ####[facility] [address] [place], [address] Hematocrit (Bld) [Volume fraction] 43.6 % Normal 40-54 [facility] Comment on above: Performed By: #### L 100.0100, L500.4050 ####[facility] [address] [place], [address] Hemoglobin (Bld) [Mass/Vol] 14.8 g/dL Normal 13.0-16.5 [facility] Comment on above: Performed By: #### L 100.0100, L500.4050 ####[facility] [address] [place], [address] IG% 0.500 Normal 0.0-0.9 [facility] Comment on above: Result Comment: IG% - Immature Granulocytes (promyelocytes, myelocytes andmetamyelocytes) > 1% indicates that a LEFT SHIFT is Present. Performed By: #### L 100.0100, L500.4050 ####[facility] [address] [place], [address] Lymphocytes/100 WBC (Bld) 16.5 % Low 19-41 [facility] Comment on above: Performed By: #### L 100.0100, L500.4050 ####[facility] [address] [place], [address] MCH (RBC) [Entitic mass] 29.4 pg Normal 27.0-32.0 [facility] Comment on above: Performed By: #### L 100.0100, L500.4050 ####[facility] [address] [place], [address] MCHC (RBC) [Mass/Vol] 33.9 g/dL Normal 32-36 [facility] Comment on above: Performed By: #### L 100.0100, L500.4050 ####[facility] [address] [place], [address] MCV (RBC) [Entitic vol] 86.5 fL Normal 80-94 [facility] Comment on above: Performed By: #### L 100.0100, L500.4050 ####[facility] [address] [place], [address] Monocytes/100 WBC (Bld) 8.4 % Normal 0-10 [facility] Comment on above: Performed By: #### L 100.0100, L500.4050 ####[facility] [address] [place], [address] Neutrophils/100 WBC (Bld) 74.4 % High 47-70 [facility] Comment on above: Performed By: #### L 100.0100, L500.4050 ####[facility] [address] [place], [address] Nucleated RBC (Bld) [#/Vol] 0 10*3/uL Normal 0-5 [facility] Comment on above: Performed By: #### L 100.0100, L500.4050 ####[facility] [address] [place], [address] Platelet mean volume (Bld) [Entitic vol] 8.7 fL Normal 6.2-12.0 [facility] Comment on above: Performed By: #### L 100.0100, L500.4050 ####[facility] [address] [place], [address] Platelets (Bld) [#/Vol] 264 10*3/uL Normal 150-450 [facility] Comment on above: Performed By: #### L 100.0100, L500.4050 ####[facility] [address] [place], [address] RBC (Bld) [#/Vol] 5.04 10*6/uL Normal 4.6-6.2 [facility] Comment on above: Performed By: #### L 100.0100, L500.4050 ####[facility] [address] [place], [address] RDW SD 42.8 fl Normal 35.1-43.9 [facility] Comment on above: Performed By: #### L 100.0100, L500.4050 ####[facility] [address] [place], [address] WBC (Bld) [#/Vol] 9.2 10*3/uL Normal 4.4-11.0 [facility] Comment on above: Performed By: #### L 100.0100, L500.4050 ####[facility] [address] [place], [address] Carbon dioxide, total [Moles /volume] in Central venous bloodOrdered By: Camron Shoemaker on 03-18-2025 CO2 [Moles/Vol] 25.4 mmol/L 21.0-32.0 [facility] Chloride assayOrdered By: Stephanie Shoemaker on 03-18-2025 Chloride [Moles/Vol] 104 mmol/L 98-108 [facility] Comprehensive Metabolic Prof ilon 03-18-2025 Albumin [Mass/Vol] 4.0 g/dL Normal 3.5-5.0 [facility] Comment on above: Performed By: #### L 100.0100, L500.4050 ####[facility] [address] [place], [address] Albumin/Globulin [Mass ratio] 1.5 {ratio} Normal 0.9-2.4 [facility] Comment on above: Performed By: #### L 100.0100, L500.4050 ####[facility] [address] [place], [address] ALK PHOS 64 U/L Normal 40-129 [facility] Comment on above: Performed By: #### L 100.0100, L500.4050 ####[facility] [address] [place], [address] ALT [Catalytic activity/Vol] 65 U/L High <=46 [facility] Comment on above: Performed By: #### L 100.0100, L500.4050 ####[facility] [address] [place], [address] AST [Catalytic activity/Vol] 43 U/L High <=37 [facility] Comment on above: Performed By: #### L 100.0100, L500.4050 ####[facility] [address] [place], [address] Bilirubin [Mass/Vol] 0.85 mg/dL Normal 0.00-1.30 [facility] Comment on above: Performed By: #### L 100.0100, L500.4050 ####[facility] [address] [place], [address] BUN/CRE 11.9 RATIO Normal 10-20 [facility] Comment on above: Performed By: #### L 100.0100, L500.4050 ####[facility] [address] [place], [address] Calcium [Mass/Vol] 9.2 mg/dL Normal 7.6-11.0 [facility] Comment on above: Performed By: #### L 100.0100, L500.4050 ####[facility] [address] [place], [address] Chloride [Moles/Vol] 104 mmol/L Normal 98-108 [facility] Comment on above: Performed By: #### L 100.0100, L500.4050 ####[facility] [address] [place], [address] CO2 [Moles/Vol] 25.4 mmol/L Normal 21.0-32.0 [facility] Comment on above: Performed By: #### L 100.0100, L500.4050 ####[facility] [address] [place], [address] Creatinine [Mass/Vol] 1.00 mg/dL Normal 0.70-1.20 [facility] Comment on above: Performed By: #### L 100.0100, L500.4050 ####[facility] [address] [place], [address] ECRCL 113.19 ml/min Normal 50-250 [facility] Comment on above: Performed By: #### L 100.0100, L500.4050 ####[facility] [address] [place], [address] GAP 10 Normal 5-15 [facility] Comment on above: Performed By: #### L 100.0100, L500.4050 ####[facility] [address] [place], [address] GFR/1.73 sq M.predicted among non-blacks MDRD (S/P/Bld) [Vol rate/Area] 97 mL/min/{1.73_m2} Normal >60 [facility] Comment on above: Result Comment: mL/m in/1.73m2 CKD-EPI Creatinine Equation (2020) Performed By: #### L 100.0100, L500.4050 ####[facility] [address] [place], [address] Globulin (S) [Mass/Vol] 2.6 g/dL Normal 2.2-4.2 [facility] Comment on above: Performed By: #### L 100.0100, L500.4050 ####[facility] [address] [place], [address] Glucose [Mass/Vol] 114 mg/dL High 70-99 [facility] Comment on above: Performed By: #### L 100.0100, L500.4050 ####[facility] [address] [place], [address] Potassium [Moles/Vol] 4.0 mmol/L Normal 3.3-5.1 [facility] Comment on above: Performed By: #### L 100.0100, L500.4050 ####[facility] [address] [place], [address] Sodium [Moles/Vol] 139 mmol/L Normal 133-145 [facility] Comment on above: Performed By: #### L 100.0100, L500.4050 ####[facility] [address] [place], [address] T PROT 6.6 g/dL Normal 5.9-8.4 [facility] Comment on above: Performed By: #### L 100.0100, L500.4050 ####[facility] [address] [place], [address] Urea nitrogen [Mass/Vol] 12 mg/dL Normal - [facility] Comment on above: Performed By: #### L 100.0100, L500.4050 ####[facility] [address] [place], [address] Discharge Instructionon 02-28 Discharge Instruction Normal [facility] Eosinophil percentageOrdered By: Camron Shoemaker on 03-18-2025 Eosinophils/100 WBC (Bld) 0.0 % 0-5 [facility] Erythrocyte distribution wid th ratioOrdered By: Camron Shoemaker on 03-18-2025 Erythrocyte distribution width (RBC) [Ratio] 13.6 % 11.6-14.6 [facility] Erythrocyte distribution wid th standard deviationOrdered By: Camron Shoemaker on 03-18-2025 Erythrocyte distribution width (RBC) [Ratio] 42.8 fl 35.1-43.9 [facility] Glomerular filtration rate ( GFR) estimation/1.73 sq m using serum, plasma, or whole bOrdered By: Camron Shoemaker on 03-18-2025 GFR/1.73 sq M.predicted among non-blacks MDRD (S/P/Bld) [Vol rate/Area] 97 mL/min/{1.73_m2} >60 [facility] Comment on above: mL/min/1.73m2 CKD-EP I Creatinine Equation (2020) Hematocrit Auto (Bld) [Volum e fraction]Ordered By: Camron Shoemaker on 03-18-2025 Hematocrit (Bld) [Volume fraction] 43.6 % 40-54 [facility] Hemoglobin measurementOrdere d By: Camron Shoemaker on 03-18-2025 Hemoglobin (Bld) [Mass/Vol] 14.8 g/dL 13.0-16.5 [facility] Immature granulocytes/100 WB C Auto (Bld)Ordered By: Camron Shoemaker on 03-18-2025 Immature granulocytes/100 WBC (Bld) 0.500 % 0.0-0.9 [facility] Comment on above: IG% - Immature Granu locytes (promyelocytes, myelocytes and metamyelocytes) > 1% indicates that a LEFT SHIFT is Present. Laboratory - Chemistry and C hemistry - challengeOrdered By: Camron Shoemaker on 03-18-2025 AST [Catalytic activity/Vol] 43 U/L High <38 [facility] MCV (mean corpuscular volume ) determinationOrdered By: Camron Shoemaker on 03-18-2025 MCV (RBC) [Entitic vol] 86.5 fL 80-94 [facility] Mean corpuscular hemoglobin (MCH) determinationOrdered By: Camron Shoemaker on 03-18-2025 MCH (RBC) [Entitic mass] 29.4 pg 27.0-32.0 [facility] Mean corpuscular hemoglobin concentration (MCHC) determinationOrdered By: Camron Shoemaker on 03-18-2025 MCHC (RBC) [Mass/Vol] 33.9 g/dL 32-36 [facility] Mean platelet volume determi nationOrdered By: Camron Shoemaker on 03-18-2025 Platelet mean volume (Bld) [Entitic vol] 8.7 fL 6.2-12.0 [facility] Monocyte percentageOrdered B y: Camron Shoemaker on 03-18-2025 Monocytes/100 WBC (Bld) 8.4 % 0-10 [facility] Neutrophil percentageOrdered By: Camron Shoemaker on 03-18-2025 Neutrophils/100 WBC (Bld) 74.4 % High 47-70 [facility] Nucleated red blood cell per centageOrdered By: Camron Shoemaker on 03-18-2025 Nucleated RBC/100 WBC (Bld) [Ratio] 0 % 0-5 [facility] Platelet countOrdered By: Stephanie Shoemaker on 03-18-2025 Platelets (Bld) [#/Vol] 264 10*3/uL 150-450 [facility] Potassium measurement (mass/ volume)Ordered By: Camron Shoemaker on 03-18-2025 Potassium (Unsp spec) [Mass/Vol] 4.0 mmol/L 3.3-5.1 [facility] RBC Auto (Bld) [#/Vol]Ordere d By: Camron Shoemaker on 03-18-2025 RBC (Bld) [#/Vol] 5.04 10*6/uL 4.6-6.2 [facility] Serum creatinine measurement (mass/volume)Ordered By: Camron Shoemaker on 03-18-2025 Creatinine [Mass/Vol] 1.00 mg/dL 0.70-1.20 [facility] Serum globulin measurementOr dered By: Camron Shoemaker on 03-18-2025 Globulin (S) [Mass/Vol] 2.6 g/dL 2.2-4.2 [facility] Serum glucose measurement (m ass/volume)Ordered By: Camron Shoemaker on 03-18-2025 Glucose [Mass/Vol] 114 mg/dL High 70-99 [facility] Serum or plasma alanine mays otransferase (ALT) measurementOrdered By: Camron Shoemaker on 03-18-2025 ALT [Catalytic activity/Vol] 65 U/L High <47 [facility] Serum or plasma albumin marquise urement (mass/volume)Ordered By: Camron Shoemaker on 03-18-2025 Albumin [Mass/Vol] 4.0 g/dL 3.5-5.0 [facility] Serum or plasma albumin/glob ulin mass ratioOrdered By: Camron Shoemaker on 03-18-2025 Albumin/Globulin [Mass ratio] 1.5 {ratio} 0.9-2.4 [facility] Serum or plasma alkaline daniel sphatase measurementOrdered By: Camron Shoemaker on 03-18-2025 ALP [Catalytic activity/Vol] 64 U/L 40-129 [facility] Serum or plasma calcium marquise urement (mass/volume)Ordered By: Camron Shoemaker on 03-18-2025 Calcium [Mass/Vol] 9.2 mg/dL 7.6-11.0 [facility] Serum or plasma urea nitroge n measurement (mass/volume)Ordered By: Camron Shoemaker on 03-18-2025 Urea nitrogen [Mass/Vol] 12 mg/dL - [facility] Sodium levelOrdered By: Kan flores Navid on 03-18-2025 Sodium [Moles/Vol] 139 mmol/L 133-145 [facility] Total proteinOrdered By: Anuj pa Navid on 03-18-2025 Protein [Mass/Vol] 6.6 g/dL 5.9-8.4 [facility] White blood cell (WBC) count Ordered By: Camron Shoemaker on 03-18-2025 WBC (Bld) [#/Vol] 9.2 10*3/uL 4.4-11.0 [facility] MR/PAT.ANEon 03-17-2025 MR/PAT.ANE Normal [facility] MR/POSTOP.ANEon 03-17-2025 MR/POSTOP.ANE Normal [facility] MR/POSTOP.ANE Normal [facility] MR/XHOAEIEK2kv 03-17-2025 MR/POSTOPAN2 Normal [facility] Operative Reporton Operative Report Normal [facility] Surgery Specimen Level IIIon 03-17-2025 Surgery Specimen Level III Normal [facility] Comment on above: Performed By: #### P SUIII ####[facility] [address] [facility] [place], [address] 12 Lead EKGon 03-08-2025 12 Lead EKG Normal [facility] Electrocardiogram reportOrde red By: Camron Redd on 03-08-2025 EKG study [facility] [address] [place] [address] 12 Lead EKG 03/08/25 0835 MR#: [id number] Acct: [id number] Name: DIANE CONNORS Rep #:[id number] : 1985 39 From: Camron randall MD Attending Dr: Dr. Camron Shoemaker MD Status: PRE [facility] Ordering Dr: Gray López MD Date: Location: [facility] Sex: M C Admitted: Test Reason : [...] was found Confirmed by Camron Redd ([id number]), features editor CHAVA CASEY ([id number]) on 03/08/2025 10:43:33 AM Referred By: Camron Shoemaker Confirmed By: Camron Redd 03/08/25 1043 Date _ Camron Redd MD CC: AGUILAR Arias; Dr. Gray López MD; Dr. Camron Shoemaker MD ~ Signed [facility] Work Phone: Liver Profileon 03-08-2025 Albumin [Mass/Vol] 4.4 g/dL Normal 3.5-5.0 [facility] Comment on above: Performed By: #### L 500.3400 ####[facility] [address] [place], [place], [address] ALK PHOS 73 U/L Normal 40-129 [facility] Comment on above: Performed By: #### L 500.3400 ####[facility] [address] [place], [place], [address] ALT [Catalytic activity/Vol] 38 U/L Normal <=46 [facility] Comment on above: Performed By: #### L 500.3400 ####[facility] [address] [place], [place], [address] AST [Catalytic activity/Vol] 33 U/L Normal <=37 [facility] Comment on above: Performed By: #### L 500.3400 ####[facility] [address] [place], [place], [address] Bilirubin [Mass/Vol] 0.58 mg/dL Normal 0.00-1.30 [facility] Comment on above: Performed By: #### L 500.3400 ####[facility] [address] [place], [place], [address] Bilirubin.direct [Mass/Vol] 0.22 mg/dL Normal 0.00-0.30 [facility] Comment on above: Performed By: #### L 500.3400 ####[facility] [address] [place], [place], [address] Globulin (S) [Mass/Vol] 2.7 g/dL Normal 2.2-4.2 [facility] Comment on above: Performed By: #### L 500.3400 ####[facility] [address] [place], [place], [address] T PROT 7.1 g/dL Normal 5.9-8.4 [facility] Comment on above: Performed By: #### L 500.3400 ####[facility] [address] [place], [place], [address] MR/PAT.ANEon 03-08-2025 MR/PAT.ANE Normal [facility] MR/PAT.ANE Normal [facility] Hepatobilliary Imagingon Hepatobilliary Imaging Normal [facility] Misc.on 01-09-2025 [facility] Misc. COMMENT Normal . [facility] Comment on above: Order Comment: [id number] 5APOLIPOPROTEIN B Result Comment: Test Ordered: [id number] Apolipoprotein BApolipoprotein B 122 [H ] mg/dL Reference Range: <90 Desirable < 90 Borderline High 90 - 99 High 100 - 130 Very High >130 ASCVD RISK THERAPEUTIC TARGET CATEGORY APO B (mg/dL) Very High Risk <80 (if extreme risk <70) High Risk <90 Moderate Risk <90Performed at: [facility] [address] [id number] Director: Kelly Jansen MD, Phone: [phone] at: [facility] [place], [place] [id number] Director: Raj Dick PhD, Phone: [phone] Performed By: #### L 3410.9998, L501.1400, L300.4700, L500.4100, L803.0600, L3400.4600, L501.6710, L3100.7870 ####[facility] [address] [place], [place], [address] CRP, High Sensitivity [id number] on 01-07-2025 CRP, HIGH SENS 2.61 mg/L Normal 0.00-3.00 [facility] Comment on above: Result Comment: Rela tive Risk for Future Cardiovascular Event Low <1.00 Average 1.00 - 3.00 High >3.00 Performed By: #### L 3410.9998, L501.1400, L300.4700, L500.4100, L803.0600, L3400.4600, L501.6710, L3100.7870 ####[facility] [address] [place], [address] L803.0600on 01-07-2025 HOMOCYSTEINE 9.0 umol/L Normal 0.0-14.5 [facility] Comment on above: Result Comment: Perf ormed at: [address] [id number] Director: Raj Dick PhD, Phone: [phone] Performed By: #### L 3410.9998, L501.1400, L300.4700, L500.4100, L803.0600, L3400.4600, L501.6710, L3100.7870 ####[facility] [address] [place], [address] [facility] Misc.on 01-07-2025 [facility] Misc. COMMENT Normal . [facility] Comment on above: Order Comment: [id number] 7CRP QUANT Result Comment: Test Ordered: [id number] C-Reactive Protein, QuantC-Reactive Protein, Quant 2 mg/L CB Reference Range: 0-10Performed at: [facility] HillRrzjrz[address] [place], [place] [id number] Director: Raj Dick PhD, Phone: [phone] Performed By: #### L 3410.9998 ####[facility] [address] [place], [address] Lipoprotein Aon 01-07-2025 Lipoprotein a [Moles/Vol] 16.5 nmol/L Normal <75.0 [facility] Comment on above: Result Comment: Note : Values greater than or equal to 75.0 nmol/L may indicate an independent risk factor for CHD, but must be evaluated with caution when applied to non- populations due to the influence of genetic factors on Lp(a) across ethnicities.Performed at: [facility]lic[facility] HillHqkzhm[address] [place], [place] [id number] Director: Raj Dick PhD, Phone: [phone] Performed By: #### L 3410.9998, L501.1400, L300.4700, L500.4100, L803.0600, L3400.4600, L501.6710, L3100.7870 ####[facility] [address] [place], [address] C-reactive protein measureme nt by high sensitivity methodOrdered By: Michela Sal on 01-05-2025 C-reactive protein measurement by high sensitivity method 2.61 mg/L 0.00-3.00 [facility] Comment on above: Relative Risk for Fu ture Cardiovascular Event Low <1.00 Average 1.00 - 3.00 High >3.00 CRPon 01-05-2025 C-REACTIVE PROT < 3.00 Normal 0.0-3.0 [facility] Comment on above: Performed By: #### L 3410.9998, L501.1400, L300.4700, L500.4100, L803.0600, L3400.4600, L501.6710, L3100.7870 ####[facility] [address] [place], [place], [address] Calculated very low density lipoprotein (VLDL) cholesterol measurementOrdered By: Michela Sal on 01-05-2025 Calculated very low density lipoprotein (VLDL) cholesterol measurement 21 mg/dL 5-40 [facility] Fibrinogenon 01-05-2025 FIBRINOGEN 378 mg/dl Normal 203-444 [facility] Comment on above: Performed By: #### L 3410.9998, L501.1400, L300.4700, L500.4100, L803.0600, L3400.4600, L501.6710, L3100.7870 ####[facility] [address] [place], [place], [address] LDL calc ser/plasOrdered By: Michela Sal on 01-05-2025 Cholesterol in LDL [Mass/Vol] 138 mg/dL [facility] Comment on above: Srarupumbd=766-860 m g/dL & Higher Cyzs=045 mg/dL or greater Result Comment: Bord ycyyxk=942-724 mg/dL Higher Gfwq=663 mg/dL or greater Performed By: #### L 3410.9998, L501.1400, L300.4700, L500.4100, L803.0600, L3400.4600, L501.6710, L3100.7870 ####[facility] [address] [place], [place], [address] Lipid Profileon 01-05-2025 CHOL:HDL 4.03 Normal [facility] Comment on above: Performed By: #### L 3410.9998, L501.1400, L300.4700, L500.4100, L803.0600, L3400.4600, L501.6710, L3100.7870 ####[facility] [address] [place], [place], [address] Cholesterol in VLDL [Mass/Vol] 21 mg/dL Normal 5-40 [facility] Comment on above: Performed By: #### L 3410.9998, L501.1400, L300.4700, L500.4100, L803.0600, L3400.4600, L501.6710, L3100.7870 ####[facility] [address] [place], [address] Lipoprotein a [Mass/Vol]Orde red By: Michela Sal on 01-05-2025 Lipoprotein a [Moles/Vol] 16.5 nmol/L <75.0 [facility] Comment on above: Note: Values greater than or equal to 75.0 nmol/L may indicate an independent risk factor for CHD, but must be evaluated with caution when applied to non- populations due to the influence of genetic factors on Lp(a) across ethnicities.Performed at: [facility] [place] [id number] Director: Raj Dick PhD, Phone: [phone] Screening total cholesterol/ high density lipoprotein (HDL) cholesterol ratioOrdered By: Michela Sal on 01-05-2025 Cholesterol.total/Cho lesterol in HDL [Mass ratio] 4.03 {ratio} [facility] Serum or plasma C reactive p rotein measurement (mass/volume)Ordered By: Michela Sal on 01-05-2025 CRP [Mass/Vol] mg/L 0.0-3.0 [facility] Serum or plasma cholesterol in HDL measurement (mass/volume)Ordered By: Michela Sal on 01-05-2025 Cholesterol in HDL [Mass/Vol] 52 mg/dL >40 [facility] Comment on above: National Cholesterol Education [...] L501.1400, L300.4700, L500.4100, L803.0600, L3400.4600, L501.6710, L3100.7870 ####[facility] [address] [place], [place], [address] Serum or plasma cholesterol measurement (mass/volume)Ordered By: Michela Sal on 01-05-2025 Cholesterol [Mass/Vol] 211 mg/dL High <201 [facility] Comment on above: Cholesterol level, D esirable <200 mg/dLBorderline high cholesterol 200-239 mg/dLHigh cholesterol >=240 mg/dLRecommendations of the NCEP Adult Treatment Panel for the following risk-cutoff thresholds for the [place] population. Result Comment: Chol esterol level, Desirable <200 mg/dLBorderline high cholesterol 200-239 mg/dLHigh cholesterol >=240 mg/dLRecommendations of the NCEP Adult Treatment Panel for thefollowing risk-cutoff thresholds for the [place] Americanpopulation. Performed By: #### L 3410.9998, L501.1400, L300.4700, L500.4100, L803.0600, L3400.4600, L501.6710, L3100.7870 ####[facility] [address] [place], [place], [address] Serum or plasma uric acid me asurement (mass/volume)Ordered By: Michela Sal on 01-05-2025 Urate [Mass/Vol] 5.1 mg/dL 3.5-7.2 [facility] Comment on above: The drugs N-Acetylcy steine and Metamizole may falsely depress this assay. Triglycerides measurementOrd ered By: Michela Sal on 01-05-2025 Triglyceride [Mass/Vol] 103 mg/dL <199 [facility] Comment on above: The drugs N-Acetylcy steine and Metamizole may falsely depress this assay. Normal range: <150 mg/dLBorderline High: 150-199 mg/dLHigh: 200-499 mg/dLVery High: >500 mg/dL Result Comment: The drugs N-Acetylcysteine and Metamizole may falselydepress this assay.Normal range: <150 mg/dLBorderline High: 150-199 mg/dLHigh: 200-499 mg/dLVery High: >500 mg/dL Performed By: #### L 3410.9998, L501.1400, L300.4700, L500.4100, L803.0600, L3400.4600, L501.6710, L3100.7870 ####[facility] [address] [place], [address] Uric Acidon 01-05-2025 URIC 5.1 mg/dL Normal 3.5-7.2 [facility] Comment on above: Result Comment: The drugs N-Acetylcysteine and Metamizole may falselydepress this assay. Performed By: #### L 3410.9998, L501.1400, L300.4700, L500.4100, L803.0600, L3400.4600, L501.6710, L3100.7870 ####[facility] [address] [place], [place], [address] Bilirubin directOrdered By: Cayla Quiñonez on 12-31-2024 Bilirubin.direct [Mass/Vol] 0.42 mg/dL High 0.00-0.30 [facility] Bilirubin, totalOrdered By: Cayla Quiñonez on 12-31-2024 Bilirubin [Mass/Vol] 0.64 mg/dL 0.00-1.30 [facility] Gastroenterology Visit Repor ton 12-31-2024 Gastroenterology Visit Report Normal [facility] Laboratory - Chemistry and C hemistry - challengeOrdered By: Cayla Quiñonez on 12-31-2024 AST [Catalytic activity/Vol] 38 U/L <38 [facility] Liver Profileon 12-31-2024 Albumin [Mass/Vol] 4.0 g/dL Normal 3.5-5.0 [facility] Comment on above: Performed By: #### L 500.3400 ####[facility] [address] [place], [address] ALK PHOS 112 U/L Normal 40-129 [facility] Comment on above: Performed By: #### L 500.3400 ####[facility] [address] [place], [address] ALT [Catalytic activity/Vol] 64 U/L High <=46 [facility] Comment on above: Performed By: #### L 500.3400 ####[facility] [address] [place], [address] AST [Catalytic activity/Vol] 38 U/L Normal <=37 [facility] Comment on above: Performed By: #### L 500.3400 ####[facility] [address] [place], [address] Bilirubin [Mass/Vol] 0.64 mg/dL Normal 0.00-1.30 [facility] Comment on above: Performed By: #### L 500.3400 ####[facility] [address] [place], [address] Bilirubin.direct [Mass/Vol] 0.42 mg/dL High 0.00-0.30 [facility] Comment on above: Performed By: #### L 500.3400 ####[facility] [address] [place], [address] Globulin (S) [Mass/Vol] 3.1 g/dL Normal 2.2-4.2 [facility] Comment on above: Performed By: #### L 500.3400 ####[facility] [address] [place], [address] T PROT 7.0 g/dL Normal 5.9-8.4 [facility] Comment on above: Performed By: #### L 500.3400 ####[facility] [address] [place], [place], [address] Serum globulin measurementOr dered By: Cayla Quiñonez on 12-31-2024 Globulin (S) [Mass/Vol] 3.1 g/dL 2.2-4.2 [facility] Serum or plasma alanine mays otransferase (ALT) measurementOrdered By: Cayla Quiñonez on 12-31-2024 ALT [Catalytic activity/Vol] 64 U/L High <47 [facility] Serum or plasma albumin marquise urement (mass/volume)Ordered By: Cayla Quiñonez on 12-31-2024 Albumin [Mass/Vol] 4.0 g/dL 3.5-5.0 [facility] Serum or plasma alkaline daniel sphatase measurementOrdered By: Cayla Quiñonez on 12-31-2024 ALP [Catalytic activity/Vol] 112 U/L 40-129 [facility] Surgery Visit Reporton 12-31 Surgery Visit Report Normal [facility] Total proteinOrdered By: Vanessa Quiñonez on 12-31-2024 Protein [Mass/Vol] 7.0 g/dL 5.9-8.4 [facility] Culture, Blood (WB)on 2024 CUB Normal [facility] Comment on above: Performed By: #### M 200.1000 ####[facility] [address] [place], [address] Culture, Blood (WB)on 2024 CUB Normal [facility] Comment on above: Performed By: #### M 200.1000 ####[facility] [address] [place], [address] Liver Profileon 12-18-2024 ALB Normal 3.5-5.0 [facility] Comment on above: Result Comment: Canc elled via OM: Order cancelled - Patient discharged Performed By: #### L 500.2921 ####[facility] [address] [place], [address] ALK PHOS Normal 40-129 [facility] Comment on above: Result Comment: Canc elled via OM: Order cancelled - Patient discharged Performed By: #### L 500.3400 ####[facility] [address] [place], [address] ALT Normal <=46 [facility] Comment on above: Result Comment: Canc elled via OM: Order cancelled - Patient discharged Performed By: #### L 500.3400 ####[facility] [address] [place], [address] AST Normal <=37 [facility] Comment on above: Result Comment: Canc elled via OM: Order cancelled - Patient discharged Performed By: #### L 500.3400 ####[facility] [address] [place], [address] D BILI Normal 0.00-0.30 [facility] Comment on above: Result Comment: Canc elled via OM: Order cancelled - Patient discharged Performed By: #### L 500.3400 ####[facility] [address] [place], [address] T BILI Normal 0.00-1.30 [facility] Comment on above: Result Comment: Canc elled via OM: Order cancelled - Patient discharged Performed By: #### L 500.3400 ####[facility] [address] [place], [address] T PROT Normal 5.9-8.4 [facility] Comment on above: Result Comment: Canc elled via OM: Order cancelled - Patient discharged Performed By: #### L 500.3400 ####[facility] [address] [place], [address] CBC W/Diff, Automatedon -2 0-2024 Absolute Neut Normal 2.0-7.7 [facility] Comment on above: Result Comment: Canc elled via OM: Order cancelled - Patient discharged Performed By: #### L 500.3400, L100.0100 ####[facility] [address] [place], [address] HCT Normal 40-54 [facility] Comment on above: Result Comment: Canc elled via OM: Order cancelled - Patient discharged Performed By: #### L 500.3400, L100.0100 ####[facility] [address] [place], [address] HGB Normal 13.0-16.5 [facility] Comment on above: Result Comment: Canc elled via OM: Order cancelled - Patient discharged Performed By: #### L 500.3400, L100.0100 ####[facility] [address] [place], [address] MCH Normal 27.0-32.0 [facility] Comment on above: Result Comment: Canc elled via OM: Order cancelled - Patient discharged Performed By: #### L 500.3400, L100.0100 ####[facility] [address] [place], [address] MCHC Normal 32-36 [facility] Comment on above: Result Comment: Canc elled via OM: Order cancelled - Patient discharged Performed By: #### L 500.3400, L100.0100 ####[facility] [address] [place], [address] MCV Normal 80-94 [facility] Comment on above: Result Comment: Canc elled via OM: Order cancelled - Patient discharged Performed By: #### L 500.3400, L100.0100 ####[facility] [address] [place], [address] NEUT% Normal 47-70 [facility] Comment on above: Result Comment: Canc elled via OM: Order cancelled - Patient discharged Performed By: #### L 500.3400, L100.0100 ####[facility] [address] [place], [address] PLT Normal 150-450 [facility] Comment on above: Result Comment: Canc elled via OM: Order cancelled - Patient discharged Performed By: #### L 500.3400, L100.0100 ####[facility] [address] [place], [address] RBC Normal 4.6-6.2 [facility] Comment on above: Result Comment: Canc elled via OM: Order cancelled - Patient discharged Performed By: #### L 500.3400, L100.0100 ####[facility] [address] [place], [address] RDW CV Normal 11.6-14.6 [facility] Comment on above: Result Comment: Canc elled via OM: Order cancelled - Patient discharged Performed By: #### L 500.3400, L100.0100 ####[facility] [address] [place], [address] RDW SD Normal 35.1-43.9 [facility] Comment on above: Result Comment: Canc elled via OM: Order cancelled - Patient discharged Performed By: #### L 500.3400, L100.0100 ####[facility] [address] [place], [address] WBC Normal 4.4-11.0 [facility] Comment on above: Result Comment: Canc elled via OM: Order cancelled - Patient discharged Performed By: #### L 500.3400, L100.0100 ####[facility] [address] [place], [address] L501.5101on 12-17-2024 GGTP 174 IU/L Abnormal 0-65 [facility] Comment on above: Result Comment: Perf ormed at: - [facility] [address] [id number] Director: Raj Dick PhD, Phone: [phone] Performed By: #### L 501.5101 ####[facility] [address] [place], [address] Liver Profileon 12-17-2024 ALB Normal 3.5-5.0 [facility] Comment on above: Result Comment: Canc elled via OM: Order cancelled - Patient discharged Performed By: #### L 500.3400, L100.0100 ####[facility] [address] [place], [address] ALK PHOS Normal 40-129 [facility] Comment on above: Result Comment: Canc elled via OM: Order cancelled - Patient discharged Performed By: #### L 500.3400, L100.0100 ####[facility] [address] [place], [address] ALT Normal <=46 [facility] Comment on above: Result Comment: Canc elled via OM: Order cancelled - Patient discharged Performed By: #### L 500.3400, L100.0100 ####[facility] [address] [place], [address] AST Normal <=37 [facility] Comment on above: Result Comment: Canc elled via OM: Order cancelled - Patient discharged Performed By: #### L 500.3400, L100.0100 ####[facility] [address] [place], [address] D BILI Normal 0.00-0.30 [facility] Comment on above: Result Comment: Canc elled via OM: Order cancelled - Patient discharged Performed By: #### L 500.3400, L100.0100 ####[facility] [address] [place], [address] T BILI Normal 0.00-1.30 [facility] Comment on above: Result Comment: Canc elled via OM: Order cancelled - Patient discharged Performed By: #### L 500.3400, L100.0100 ####[facility] [address] [place], [address] T PROT Normal 5.9-8.4 [facility] Comment on above: Result Comment: Canc elled via OM: Order cancelled - Patient discharged Performed By: #### L 500.3400, L100.0100 ####[facility] [address] [place], [address] Absolute lymphocyte countOrd ered By: Francesco Lui on 12-16-2024 Lymphocytes Auto (Unsp spec) [#/Vol] 1.28 10*3/uL 0.83-4.51 [facility] Absolute neutrophil countOrd ered By: Francesco Lui on 12-16-2024 Neutrophils (Bld) [#/Vol] 3.7 10*3/uL 2.0-7.7 [facility] Anion gap in Serum or Plasma Ordered By: Francesco Lui on 12-16-2024 Anion gap [Moles/Vol] 10 mmol/L 02-11 [facility] Automated lymphocyte count a s percentage of total leukocytesOrdered By: Francesco Lui on 12-16-2024 Lymphocytes/100 WBC Auto (Unsp spec) 20.8 % [facility] BUN/creatinine ratioOrdered By: Francesco Lui on 12-16-2024 Urea nitrogen/Creatinine [Mass ratio] 12.7 mg/mg - [facility] Basic Metabolic Profile (BMP )on 12-16-2024 BUN/CRE 12.7 RATIO Normal - [facility] Comment on above: Performed By: #### L 100.0100, L500.3400, L500.2500 ####[facility] [address] [place], [address] Calcium [Mass/Vol] 9.0 mg/dL Normal 7.6-11.0 [facility] Comment on above: Performed By: #### L 100.0100, L500.3400, L500.2500 ####[facility] [address] [place], [address] Chloride [Moles/Vol] 104 mmol/L Normal 98-108 [facility] Comment on above: Performed By: #### L 100.0100, L500.3400, L500.2500 ####[facility] [address] [place], [address] CO2 [Moles/Vol] 24.8 mmol/L Normal 21.0-32.0 [facility] Comment on above: Performed By: #### L 100.0100, L500.3400, L500.2500 ####[facility] [address] [place], [address] Creatinine [Mass/Vol] 1.06 mg/dL Normal 0.70-1.20 [facility] Comment on above: Performed By: #### L 100.0100, L500.3400, L500.2500 ####[facility] [address] [place], [address] ECRCL 105.07 ml/min Normal 50-250 [facility] Comment on above: Performed By: #### L 100.0100, L500.3400, L500.2500 ####[facility] [address] [place], [address] GAP 10 Normal 5-15 [facility] Comment on above: Performed By: #### L 100.0100, L500.3400, L500.2500 ####[facility] [address] [place], [address] GFR/1.73 sq M.predicted among non-blacks MDRD (S/P/Bld) [Vol rate/Area] 90 mL/min/{1.73_m2} Normal >60 [facility] Comment on above: Result Comment: mL/m in/1.73m2 CKD-EPI Creatinine Equation (2020) Performed By: #### L 100.0100, L500.3400, L500.2500 ####[facility] [address] [place], [address] Glucose [Mass/Vol] 85 mg/dL Normal 70-99 [facility] Comment on above: Performed By: #### L 100.0100, L500.3400, L500.2500 ####[facility] [address] [place], [address] Potassium [Moles/Vol] 4.0 mmol/L Normal 3.3-5.1 [facility] Comment on above: Performed By: #### L 100.0100, L500.3400, L500.2500 ####[facility] [address] [place], [address] Sodium [Moles/Vol] 139 mmol/L Normal 133-145 [facility] Comment on above: Performed By: #### L 100.0100, L500.3400, L500.2500 ####[facility] [address] [place], [address] Urea nitrogen [Mass/Vol] 14 mg/dL Normal - [facility] Comment on above: Performed By: #### L 100.0100, L500.3400, L500.2500 ####[facility] [address] [place], [address] Basophil percentageOrdered B y: Francesco Lui on 12-16-2024 Basophils/100 WBC (Bld) 0.8 % 0- [facility] Bilirubin directOrdered By: Francesco Lui on 12-16-2024 Bilirubin.direct [Mass/Vol] 1.88 mg/dL High 0.00-0.30 [facility] Bilirubin, totalOrdered By: Francesco Lui on 12-16-2024 Bilirubin [Mass/Vol] 2.75 mg/dL High 0.00-1.30 [facility] CBC W/Diff, Automatedon 11-28 Absolute Lymph 1.28 X10 3/uL Normal 0.83-4.51 [facility] Comment on above: Performed By: #### L 100.0100, L500.3400, L500.2500 ####[facility] [address] [place], [address] Absolute Neut 3.7 X10 3/uL Normal 2.0-7.7 [facility] Comment on above: Performed By: #### L 100.0100, L500.3400, L500.2500 ####[facility] [address] [place], [address] Basophils/100 WBC (Bld) 0.8 % Normal 0-1 [facility] Comment on above: Performed By: #### L 100.0100, L500.3400, L500.2500 ####[facility] [address] [place], [address] Eosinophils/100 WBC (Bld) 2.3 % Normal 0-5 [facility] Comment on above: Performed By: #### L 100.0100, L500.3400, L500.2500 ####[facility] [address] [place], [address] Erythrocyte distribution width (RBC) [Ratio] 13.0 % Normal 11.6-14.6 [facility] Comment on above: Performed By: #### L 100.0100, L500.3400, L500.2500 ####[facility] [address] [place], [address] Hematocrit (Bld) [Volume fraction] 39.8 % Low 40-54 [facility] Comment on above: Performed By: #### L 100.0100, L500.3400, L500.2500 ####[facility] [address] [place], [address] Hemoglobin (Bld) [Mass/Vol] 13.5 g/dL Normal 13.0-16.5 [facility] Comment on above: Performed By: #### L 100.0100, L500.3400, L500.2500 ####[facility] [address] [place], [address] IG% 1.600 High 0.0-0.9 [facility] Comment on above: Result Comment: IG% - Immature Granulocytes (promyelocytes, myelocytes andmetamyelocytes) > 1% indicates that a LEFT SHIFT is Present. Performed By: #### L 100.0100, L500.3400, L500.2500 ####[facility] [address] [place], [address] Lymphocytes/100 WBC (Bld) 20.8 % Normal 19-41 [facility] Comment on above: Performed By: #### L 100.0100, L500.3400, L500.2500 ####[facility] [address] [place], [address] MCH (RBC) [Entitic mass] 29.2 pg Normal 27.0-32.0 [facility] Comment on above: Performed By: #### L 100.0100, L500.3400, L500.2500 ####[facility] [address] [place], [address] MCHC (RBC) [Mass/Vol] 33.9 g/dL Normal 32-36 [facility] Comment on above: Performed By: #### L 100.0100, L500.3400, L500.2500 ####[facility] [address] [place], [address] MCV (RBC) [Entitic vol] 86.0 fL Normal 80-94 [facility] Comment on above: Performed By: #### L 100.0100, L500.3400, L500.2500 ####[facility] [address] [place], [address] Monocytes/100 WBC (Bld) 13.5 % High 0-10 [facility] Comment on above: Performed By: #### L 100.0100, L500.3400, L500.2500 ####[facility] [address] [place], [address] Neutrophils/100 WBC (Bld) 61.0 % Normal 47-70 [facility] Comment on above: Performed By: #### L 100.0100, L500.3400, L500.2500 ####[facility] [address] [place], [address] Nucleated RBC (Bld) [#/Vol] 0 10*3/uL Normal 0-5 [facility] Comment on above: Performed By: #### L 100.0100, L500.3400, L500.2500 ####[facility] [address] [place], [address] Platelet mean volume (Bld) [Entitic vol] 9.8 fL Normal 6.2-12.0 [facility] Comment on above: Performed By: #### L 100.0100, L500.3400, L500.2500 ####[facility] [address] [place], [address] Platelets (Bld) [#/Vol] 153 10*3/uL Normal 150-450 [facility] Comment on above: Performed By: #### L 100.0100, L500.3400, L500.2500 ####[facility] [address] [place], [address] RBC (Bld) [#/Vol] 4.63 10*6/uL Normal 4.6-6.2 [facility] Comment on above: Performed By: #### L 100.0100, L500.3400, L500.2500 ####[facility] [address] [place], [address] RDW SD 40.5 fl Normal 35.1-43.9 [facility] Comment on above: Performed By: #### L 100.0100, L500.3400, L500.2500 ####[facility] [address] [place], [address] WBC (Bld) [#/Vol] 6.1 10*3/uL Normal 4.4-11.0 [facility] Comment on above: Performed By: #### L 100.0100, L500.3400, L500.2500 ####[facility] [address] [place], [address] Carbon dioxide, total [Moles /volume] in Central venous bloodOrdered By: Francesco Lui on 12-16-2024 CO2 [Moles/Vol] 24.8 mmol/L 21.0-32.0 [facility] Chloride assayOrdered By: Gracie Lui on 12-16-2024 Chloride [Moles/Vol] 104 mmol/L 98-108 [facility] Consultation - Infectious Dx on 12-16-2024 Consultation - Infectious Dx Normal [facility] Consultation - Surgicalon Consultation - Surgical Normal [facility] Discharge Instructionon 11-28 Discharge Instruction Normal [facility] Eosinophil percentageOrdered By: Francesco Lui on 12-16-2024 Eosinophils/100 WBC (Bld) 2.3 % 0-5 [facility] Erythrocyte distribution wid th ratioOrdered By: Francesco Lui on 12-16-2024 Erythrocyte distribution width (RBC) [Ratio] 13.0 % 11.6-14.6 [facility] Erythrocyte distribution wid th standard deviationOrdered By: Francesco Lui on 12-16-2024 Erythrocyte distribution width (RBC) [Entitic vol] 40.5 fL 35.1-43.9 [facility] Erythrocyte distribution width (RBC) [Ratio] 40.5 fl 35.1-43.9 [facility] Estimation of creatinine alyson aranceOrdered By: Francesco Lui on 12-16-2024 Estimated Creatinine Clearance Calc 105.07 ml/min 50-250 [facility] GFR/1.73 sq M.predicted latrell g non-blacks MDRD (S/P/Bld) [Vol rate/Area]Ordered By: Francesco Lui on 12-16-2024 Estimated GFR (MDRD) Non-Af Amer 90 >60 [facility] Comment on above: mL/min/1.73m2 CKD-EP I Creatinine Equation (2020) Gamma glutamyl transferase ( GGT) measurementOrdered By: Francesco Lui on 12-16-2024 Amylase [Catalytic activity/Vol] 174 U/L High 0-65 [facility] Comment on above: Performed at: [place] [id number] Director: Raj Dick PhD, Phone: [phone] Glomerular filtration rate ( GFR) estimation/1.73 sq m using serum, plasma, or whole bOrdered By: Francesco Lui on 12-16-2024 GFR/1.73 sq M.predicted among non-blacks MDRD (S/P/Bld) [Vol rate/Area] 90 mL/min/{1.73_m2} >60 [facility] Comment on above: mL/min/1.73m2 CKD-EP I Creatinine Equation (2020) Hematocrit Auto (Bld) [Volum e fraction]Ordered By: Francesco Lui on 12-16-2024 Hematocrit (Bld) [Volume fraction] 39.8 % Low 40-54 [facility] Hemoglobin measurementOrdere d By: Francesco Lui on 12-16-2024 Hemoglobin (Bld) [Mass/Vol] 13.5 g/dL 13.0-16.5 [facility] Immature granulocytes/100 WB C Auto (Bld)Ordered By: Francesco Lui on 12-16-2024 Immature granulocytes/100 WBC (Bld) 1.600 % High 0.0-0.9 [facility] Comment on above: IG% - Immature Granu locytes (promyelocytes, myelocytes and metamyelocytes) > 1% indicates that a LEFT SHIFT is Present. Laboratory - Chemistry and C hemistry - challengeOrdered By: Francesco Lui on 12-16-2024 AST [Catalytic activity/Vol] 29 U/L <38 [facility] Liver Profileon 12-16-2024 Albumin [Mass/Vol] 3.1 g/dL Low 3.5-5.0 [facility] Comment on above: Performed By: #### L 100.0100, L500.3400, L500.2500 ####[facility] [address] [place], [address] ALK PHOS 136 U/L High 40-129 [facility] Comment on above: Performed By: #### L 100.0100, L500.3400, L500.2500 ####[facility] [address] [place], [address] ALT [Catalytic activity/Vol] 149 U/L High <=46 [facility] Comment on above: Performed By: #### L 100.0100, L500.3400, L500.2500 ####[facility] [address] [place], [address] AST [Catalytic activity/Vol] 29 U/L Normal <=37 [facility] Comment on above: Performed By: #### L 100.0100, L500.3400, L500.2500 ####[facility] [address] [place], [address] Bilirubin [Mass/Vol] 2.75 mg/dL High 0.00-1.30 [facility] Comment on above: Performed By: #### L 100.0100, L500.3400, L500.2500 ####[facility] [address] [place], [address] Bilirubin.direct [Mass/Vol] 1.88 mg/dL High 0.00-0.30 [facility] Comment on above: Performed By: #### L 100.0100, L500.3400, L500.2500 ####[facility] [address] [place], [address] Globulin (S) [Mass/Vol] 3.1 g/dL Normal 2.2-4.2 [facility] Comment on above: Performed By: #### L 100.0100, L500.3400, L500.2500 ####[facility] [address] [place], [address] T PROT 6.2 g/dL Normal 5.9-8.4 [facility] Comment on above: Performed By: #### L 100.0100, L500.3400, L500.2500 ####[facility] [address] [place], [address] Lymphocytes Auto (Unsp spec) [#/Vol]Ordered By: Francesco Lui on 12-16-2024 Lymphocytes (Bld) [#/Vol] 1.28 10*3/uL 0.83-4.51 [facility] Lymphocytes/100 WBC Auto (Un sp spec)Ordered By: Francesco Lui on 12-16-2024 Lymphocytes/100 WBC (Bld) 20.8 % 19-41 [facility] MCV (mean corpuscular volume ) determinationOrdered By: Francesco Lui on 12-16-2024 MCV (RBC) [Entitic vol] 86.0 fL 80-94 [facility] Mean corpuscular hemoglobin (MCH) determinationOrdered By: Francesco Lui on 12-16-2024 MCH (RBC) [Entitic mass] 29.2 pg 27.0-32.0 [facility] Mean corpuscular hemoglobin concentration (MCHC) determinationOrdered By: Francesco Lui on 12-16-2024 MCHC (RBC) [Mass/Vol] 33.9 g/dL 32-36 [facility] Mean platelet volume determi nationOrdered By: Francesco Lui on 12-16-2024 Platelet mean volume (Bld) [Entitic vol] 9.8 fL 6.2-12.0 [facility] Monocyte percentageOrdered B y: Francesco Lui on 12-16-2024 Monocytes/100 WBC (Bld) 13.5 % High 0-10 [facility] Neutrophil percentageOrdered By: Francesco Lui on 12-16-2024 Neutrophils/100 WBC (Bld) 61.0 % 47-70 [facility] Nucleated red blood cell per centageOrdered By: Francesco Lui on 12-16-2024 Nucleated RBC/100 WBC (Bld) [Ratio] 0 % 0-5 [facility] Platelet countOrdered By: Gracie Lui on 12-16-2024 Platelets (Bld) [#/Vol] 153 10*3/uL 150-450 [facility] Potassium (Unsp spec) [Mass/ Vol]Ordered By: Francesco Lui on 12-16-2024 Potassium [Moles/Vol] 4.0 mmol/L 3.3-5.1 [facility] Potassium measurement (mass/ volume)Ordered By: Francesco Lui on 12-16-2024 Potassium (Unsp spec) [Mass/Vol] 4.0 mmol/L 3.3-5.1 [facility] RBC Auto (Bld) [#/Vol]Ordere d By: Francesco Lui on 12-16-2024 RBC (Bld) [#/Vol] 4.63 10*6/uL 4.6-6.2 [facility] Serum creatinine measurement (mass/volume)Ordered By: Francesco Lui on 12-16-2024 Creatinine [Mass/Vol] 1.06 mg/dL 0.70-1.20 [facility] Serum globulin measurementOr dered By: Francesco Lui on 12-16-2024 Globulin (S) [Mass/Vol] 3.1 g/dL 2.2-4.2 [facility] Serum glucose measurement (m ass/volume)Ordered By: Francesco Lui on 12-16-2024 Glucose [Mass/Vol] 85 mg/dL 70-99 [facility] Serum or plasma alanine mays otransferase (ALT) measurementOrdered By: Francesco Lui on 12-16-2024 ALT [Catalytic activity/Vol] 149 U/L High <47 [facility] Serum or plasma albumin marquise urement (mass/volume)Ordered By: Francesco Lui on 12-16-2024 Albumin [Mass/Vol] 3.1 g/dL Low 3.5-5.0 [facility] Serum or plasma alkaline daniel sphatase measurementOrdered By: Francesco Lui on 12-16-2024 ALP [Catalytic activity/Vol] 136 U/L High 40-129 [facility] Serum or plasma calcium marquise urement (mass/volume)Ordered By: Francesco Lui on 12-16-2024 Calcium [Mass/Vol] 9.0 mg/dL 7.6-11.0 [facility] Serum or plasma urea nitroge n measurement (mass/volume)Ordered By: Francesco Lui on 12-16-2024 Urea nitrogen [Mass/Vol] 14 mg/dL 4-19 [facility] Sodium levelOrdered By: Frederick Lui on 12-16-2024 Sodium [Moles/Vol] 139 mmol/L 133-145 [facility] Total proteinOrdered By: Mendoza Lui on 12-16-2024 Protein [Mass/Vol] 6.2 g/dL 5.9-8.4 [facility] White blood cell (WBC) count Ordered By: Francesco Lui on 12-16-2024 WBC (Bld) [#/Vol] 6.1 10*3/uL 4.4-11.0 [facility] 12 Lead EKGon 12-15-2024 12 Lead EKG Normal [facility] CBC-Complete Blood Cnt No Di ffon 12-15-2024 Erythrocyte distribution width (RBC) [Ratio] 12.9 % Normal 11.6-14.6 [facility] Comment on above: Performed By: #### L 100.0500 ####[facility] [address] [facility] [place], [address] Hematocrit (Bld) [Volume fraction] 42.2 % Normal 40-54 [facility] Comment on above: Performed By: #### L 100.0500 ####[facility] [address] [place], [address] Hemoglobin (Bld) [Mass/Vol] 14.5 g/dL Normal 13.0-16.5 [facility] Comment on above: Performed By: #### L 100.0500 ####[facility] [address] [facility] [place], [address] MCH (RBC) [Entitic mass] 28.8 pg Normal 27.0-32.0 [facility] Comment on above: Performed By: #### L 100.0500 ####[facility] [address] [place], [address] MCHC (RBC) [Mass/Vol] 34.4 g/dL Normal 32-36 [facility] Comment on above: Performed By: #### L 100.0500 ####[facility] [address] [place], [address] MCV (RBC) [Entitic vol] 83.9 fL Normal 80-94 [facility] Comment on above: Performed By: #### L 100.0500 ####[facility] [address] [place], [address] Platelet mean volume (Bld) [Entitic vol] 9.8 fL Normal 6.2-12.0 [facility] Comment on above: Performed By: #### L 100.0500 ####[facility] [address] [place], [address] Platelets (Bld) [#/Vol] 163 10*3/uL Normal 150-450 [facility] Comment on above: Performed By: #### L 100.0500 ####[facility] [address] [place], [address] RBC (Bld) [#/Vol] 5.03 10*6/uL Normal 4.6-6.2 [facility] Comment on above: Performed By: #### L 100.0500 ####[facility] [address] [place], [address] RDW SD 39.7 fl Normal 35.1-43.9 [facility] Comment on above: Performed By: #### L 100.0500 ####[facility] [address] [place], [address] WBC (Bld) [#/Vol] 10.2 10*3/uL Normal 4.4-11.0 [facility] Comment on above: Performed By: #### L 100.0500 ####[facility] [address] [place], [address] Comprehensive Metabolic Prof ilon 12-15-2024 Albumin [Mass/Vol] 3.4 g/dL Low 3.5-5.0 [facility] Comment on above: Performed By: #### L 500.4050 ####[facility] [address] [place], [address] Albumin/Globulin [Mass ratio] 1.1 {ratio} Normal 0.9-2.4 [facility] Comment on above: Performed By: #### L 500.4050 ####[facility] [address] [place], [address] ALK PHOS 156 U/L High 40-129 [facility] Comment on above: Performed By: #### L 500.4050 ####[facility] [address] [place], [address] ALT [Catalytic activity/Vol] 227 U/L High <=46 [facility] Comment on above: Performed By: #### L 500.4050 ####[facility] [address] [place], [address] AST [Catalytic activity/Vol] 56 U/L High <=37 [facility] Comment on above: Performed By: #### L 500.4050 ####[facility] [address] [place], [address] Bilirubin [Mass/Vol] 5.85 mg/dL High 0.00-1.30 [facility] Comment on above: Performed By: #### L 500.4050 ####[facility] [address] [place], [address] BUN/CRE 10.4 RATIO Normal 10-20 [facility] Comment on above: Performed By: #### L 500.4050 ####[facility] [address] [place], [address] Calcium [Mass/Vol] 9.1 mg/dL Normal 7.6-11.0 [facility] Comment on above: Performed By: #### L 500.4050 ####[facility] [address] [place], [address] Chloride [Moles/Vol] 103 mmol/L Normal 98-108 [facility] Comment on above: Performed By: #### L 500.4050 ####[facility] [address] [place], [address] CO2 [Moles/Vol] 21.3 mmol/L Normal 21.0-32.0 [facility] Comment on above: Performed By: #### L 500.4050 ####[facility] [address] [place], [address] Creatinine [Mass/Vol] 0.99 mg/dL Normal 0.70-1.20 [facility] Comment on above: Result Comment: Icte stephany present, Results may be affected. Performed By: #### L 500.4050 ####[facility] [address] [place], [address] ECRCL 112.50 ml/min Normal 50-250 [facility] Comment on above: Performed By: #### L 500.4050 ####[facility] [address] [place], [address] GAP 13 Normal 5-15 [facility] Comment on above: Performed By: #### L 500.4050 ####[facility] [address] [place], [address] GFR/1.73 sq M.predicted among non-blacks MDRD (S/P/Bld) [Vol rate/Area] 98 mL/min/{1.73_m2} Normal >60 [facility] Comment on above: Result Comment: mL/m in/1.73m2 CKD-EPI Creatinine Equation (2020) Performed By: #### L 500.4050 ####[facility] [address] [place], [address] Globulin (S) [Mass/Vol] 3.1 g/dL Normal 2.2-4.2 [facility] Comment on above: Performed By: #### L 500.4050 ####[facility] [address] [place], [address] Glucose [Mass/Vol] 106 mg/dL High 70-99 [facility] Comment on above: Performed By: #### L 500.4050 ####[facility] [address] [place], [address] Potassium [Moles/Vol] 3.9 mmol/L Normal 3.3-5.1 [facility] Comment on above: Result Comment: Hemo lysis present, Results??could be affected.?? Performed By: #### L 500.4050 ####[facility] [address] [place], [address] Sodium [Moles/Vol] 137 mmol/L Normal 133-145 [facility] Comment on above: Performed By: #### L 500.4050 ####[facility] [address] [place], [address] T PROT 6.5 g/dL Normal 5.9-8.4 [facility] Comment on above: Performed By: #### L 500.4050 ####[facility] [address] [place], [address] Urea nitrogen [Mass/Vol] 10 mg/dL Normal 4-19 [facility] Comment on above: Performed By: #### L 500.4050 ####[facility] [address] [place], [address] ERCP Biliary/Pancreason - ERCP Biliary/Pancreas Normal [facility] ERCP Reporton 12-15-2024 ERCP Report Normal [facility] Electrocardiogram reportOrde red By: [place] Lubin on 12-15-2024 EKG study [facility] [address] [place] [address] 12 Lead EKG 12/15/24 0448 MR#: [id number] Acct: [id number] Name: DIANE CONNORS Rep #:[id number] : 1985 39 From: [place] Lubin MD Attending Dr: Dr. Francesco Lui MD Status: ADM IN Ordering Dr: Gray López MD Date: Location: [facility] Sex: M C Admitted: 12/14/24 Test [...] When compared with ECG of 11-Dec-2024 12:55, LA interval has decreased Vent. rate has increased by 38 bpm QT has lengthened Confirmed by JOSE LUBIN MD ([id number]), features editor CHAVA CASEY ([id number]) on 12/15/2024 8:22:34 AM Referred By: PRIMITIVO Confirmed By: JOSE LUBIN MD 12/15/24 0822 Date _ [place] Lubin MD CC: AGUILAR Arias; Dr. Gray López MD; Dr. Francesco Lui MD ~ Signed [facility] Work Phone: MR/POSTOP.ANEon 12-15-2024 MR/POSTOP.ANE Normal [facility] MR/[id number] 12-15-2024 MR/POSTOPAN2 [facility] Serum or plasma albumin/glob ulin mass ratioOrdered By: Cruz Arciniega on 12-15-2024 Albumin/Globulin [Mass ratio] 1.1 {ratio} 0.9-2.4 [facility] Abdomen/Pelvis W IV Cont ONL Yon 12-14-2024 Abdomen/Pelvis W IV Cont ONLY Normal [facility] Absolute neutrophil countOrd ered By: Petar Barrera on 12-14-2024 Neutrophils (Bld) [#/Vol] 12.7 10*3/uL High 2.0-7.7 [facility] Anion gap in Serum or Plasma Ordered By: Petar Barrera on 12-14-2024 Anion gap [Moles/Vol] 10 mmol/L - [facility] BUN/creatinine ratioOrdered By: Petar Barrera on 12-14-2024 Urea nitrogen/Creatinine [Mass ratio] 11.9 mg/mg - [facility] Basic Metabolic Profile (BMP )on 12-14-2024 BUN/CRE 11.9 RATIO Normal - [facility] Comment on above: Performed By: #### L 503.6005, L501.2450, L500.2500, L500.3400 ####[facility] [address] [place], [address] ECRCL 110.26 ml/min Normal 50-250 [facility] Comment on above: Performed By: #### L 503.6005, L501.2450, L500.2500, L500.3400 ####[facility] [address] [place], [address] GAP 10 Normal - [facility] Comment on above: Performed By: #### L 503.6005, L501.2450, L500.2500, L500.3400 ####[facility] [address] [place], [address] GFR/1.73 sq M.predicted among non-blacks MDRD (S/P/Bld) [Vol rate/Area] 96 mL/min/{1.73_m2} Normal >60 [facility] Comment on above: Result Comment: mL/m in/1.73m2 CKD-EPI Creatinine Equation (2020) Performed By: #### L 503.6005, L501.2450, L500.2500, L500.3400 ####[facility] [address] [place], [address] Basophil percentageOrdered B y: Petar Barrera on 12-14-2024 Basophils/100 WBC (Bld) 0.6 % 0-1 [facility] Bilirubin Test strip Ql (U)O rdered By: Petar Barrera on 12-14-2024 Bilirubin Ql (U) 3 mg/dL High Negative [facility] Comment on above: COLOR OF URINE MAY A FFECT DIPSTICK RESULTS. Bilirubin directOrdered By: Petar Barrera on 12-14-2024 Bilirubin.direct [Mass/Vol] 3.43 mg/dL High 0.00-0.30 [facility] Comment on above: Performed By: #### L 503.6005, L501.2450, L500.2500, L500.3400 ####[facility] [address] [place], [address] Bilirubin, totalOrdered By: Petar Barrera on 12-14-2024 Bilirubin [Mass/Vol] 4.43 mg/dL High 0.00-1.30 [facility] Comment on above: Performed By: #### L 503.6005, L501.2450, L500.2500, L500.3400 ####[facility] [id number] [place], [address] Blood cultureOrdered By: Sydney Barrera on 12-14-2024 Bacteria identified Cx Nom (Bld) Raoultella planticola Abnormal [facility] Bacteria identified Cx Nom (Bld) Streptococcus viridans group Abnormal [facility] Bacteria identified Cx Nom (Bld) GNR lactose continuous churn buttermaker Abnormal [facility] Blood manual differential co mment interpretation (narrative result)Ordered By: Petar Barrera on 12-14-2024 Manual differential comment Emanuel (Bld) [Interp] COMMENT [facility] Comment on above: LYMPHOPENIA. CBC W/Diff, Automatedon 11-28 SMEAR COMMENT COMMENT Normal [facility] Comment on above: Result Comment: LYMP HOPENIA. Performed By: #### L 100.0100 ####[facility] [address] [place], [place], [id number] Carbon dioxide, total [Moles /volume] in Central venous bloodOrdered By: Petar Barrera on 12-14-2024 CO2 [Moles/Vol] 25.7 mmol/L Normal 21.0-32.0 [facility] Comment on above: Performed By: #### L 503.6005, L501.2450, L500.2500, L500.3400 ####[facility] [address] [place], [place], [id number] Chest PA and Lateralon 12-14 Chest PA and Lateral Normal [facility] Chloride assayOrdered By: yovana Barrera on 12-14-2024 Chloride [Moles/Vol] 103 mmol/L Normal 98-108 [facility] Comment on above: Performed By: #### L 503.6005, L501.2450, L500.2500, L500.3400 ####[facility] [address] [place], [place], [id number] Emergency Department Summary on 12-14-2024 Emergency Department Summary Normal [facility] Eosinophil percentageOrdered By: Petar Barrera on 12-14-2024 Eosinophils/100 WBC (Bld) 0.1 % 0-5 [facility] Epithelial cells.squamous LM Ql (Urine sed)Ordered By: Petar Barrera on 12-14-2024 Epithelial cells.squamous LM.HPF (Urine sed) [#/Area] 0 /[HPF] 0-5 [facility] Erythrocyte distribution wid th ratioOrdered By: Petar Barrera on 12-14-2024 Erythrocyte distribution width (RBC) [Ratio] 12.8 % 11.6-14.6 [facility] Erythrocyte distribution wid th standard deviationOrdered By: Petar Barrera on 12-14-2024 Erythrocyte distribution width (RBC) [Entitic vol] 40.8 fL 35.1-43.9 [facility] Estimation of creatinine alyson aranceOrdered By: Petar Barrera on 12-14-2024 Estimated Creatinine Clearance Calc 110.26 ml/min 50-250 [facility] GFR/1.73 sq M.predicted latrell g non-blacks MDRD (S/P/Bld) [Vol rate/Area]Ordered By: Petar Barrera on 12-14-2024 Estimated GFR (MDRD) Non-Af Amer 96 >60 [facility] Comment on above: mL/min/1.73m2 CKD-EP I Creatinine Equation (2020) Glucose Ql (U)Ordered By: Ann Barrera on 12-14-2024 Urine Glucose (UA) Normal mg/dl Normal [facility] H AND P Exam - Hospitaliston 12-14-2024 H&P Exam - Hospitalist Normal [facility] Hematocrit Auto (Bld) [Volum e fraction]Ordered By: Petar Barrera on 12-14-2024 Hematocrit (Bld) [Volume fraction] 46.1 % 40-54 [facility] Hemoglobin measurementOrdere d By: Petar Barrera on 12-14-2024 Hemoglobin (Bld) [Mass/Vol] 15.5 g/dL 13.0-16.5 [facility] Immature granulocytes/100 WB C Auto (Bld)Ordered By: Petar Barrera on 12-14-2024 Immature granulocytes/100 WBC (Bld) 0.900 % 0.0-0.9 [facility] Comment on above: IG% - Immature Granu locytes (promyelocytes, myelocytes and metamyelocytes) > 1% indicates that a LEFT SHIFT is Present. Influenza virus A and B and SARS-CoV-2 (COVID-19) and Respiratory syncytial virus RNAOrdered By: Petar Barrera on 12-14-2024 SARS-CoV-2 (COVID-19) RNA ROSSANA+probe Ql (Unsp spec) [facility] Ketones Test strip Ql (U)Ord ered By: Petar Barrera on 12-14-2024 Ketones Ql (U) Negative Negative [facility] Lactic acid measurementOrder ed By: Petar Barrera on 12-14-2024 Lactate [Moles/Vol] 1.1 mmol/L Normal 0.0-2.0 [facility] Comment on above: Order Comment: Y Performed By: #### L 503.6005, L501.2450, L500.2500, L500.3400 ####[facility] [address] [place], [address] Lipase measurementOrdered By : Ptear Barrera on 12-14-2024 Lipase [Catalytic activity/Vol] 26 U/L Normal 13-75 [facility] Comment on above: Please note:LIPASE r [...] By: #### L 503.6005, L501.2450, L500.2500, L500.3400 ####[facility] [address] [place], [address] Liver Profileon 12-14-2024 ALK PHOS 149 U/L High 40-129 [facility] Comment on above: Performed By: #### L 503.6005, L501.2450, L500.2500, L500.3400 ####[facility] [address] [place], [address] T PROT 6.6 g/dL Normal 5.9-8.4 [facility] Comment on above: Performed By: #### L 503.6005, L501.2450, L500.2500, L500.3400 ####[facility] [address] [place], [address] Liver ProfileOrdered By: Sydney Barrera on 12-14-2024 AST [Catalytic activity/Vol] 124 U/L High <=37 [facility] Comment on above: Performed By: #### L 503.6005, L501.2450, L500.2500, L500.3400 ####[facility] [address] [place], [address] Lymphocytes Auto (Unsp spec) [#/Vol]Ordered By: Petar Barrera on 12-14-2024 Lymphocytes (Bld) [#/Vol] 0.45 10*3/uL Low 0.83-4.51 [facility] Lymphocytes/100 WBC Auto (Un sp spec)Ordered By: Petar Barrera on 12-14-2024 Lymphocytes/100 WBC (Bld) 3.2 % Low 19-41 [facility] M100.678on 12-14-2024 M100.678 Pending SARS-CoV-2 (COVID 19) Negative INFLUENZA A Negative INFLUENZA B Negative RSV PCR Negative Normal [facility] Comment on above: Performed By: #### M 100.678 ####[facility] [address] [place], [place], [address] MCV (mean corpuscular volume ) determinationOrdered By: Petar Barrera on 12-14-2024 MCV (RBC) [Entitic vol] 87.1 fL 80-94 [facility] Manual differential comment Emanuel (Bld) [Interp]Ordered By: Petar Barrera on 12-14-2024 Differential Comment COMMENT [facility] Comment on above: LYMPHOPENIA. Mean corpuscular hemoglobin (MCH) determinationOrdered By: Petar Barrera on 12-14-2024 MCH (RBC) [Entitic mass] 29.3 pg 27.0-32.0 [facility] Mean corpuscular hemoglobin concentration (MCHC) determinationOrdered By: Petar Barrera on 12-14-2024 MCHC (RBC) [Mass/Vol] 33.6 g/dL 32-36 [facility] Mean platelet volume determi nationOrdered By: Petar Barrera on 12-14-2024 Platelet mean volume (Bld) [Entitic vol] 9.4 fL 6.2-12.0 [facility] Microscopic analysis of urin e for red blood cells (RBC)Ordered By: Petar Barrera on 12-14-2024 Microscopic analysis of urine for red blood cells (RBC) 0-5 SEEN /hpf 0-5 [facility] Urine RBC 0-5 SEEN /hpf 0-5 [facility] Monocyte percentageOrdered B y: Petar Barrera on 12-14-2024 Monocytes/100 WBC (Bld) 4.7 % 0-10 [facility] Mucus LM Ql (Urine sed)Order ed By: Petar Barrera on 12-14-2024 Mucus Ql (Urine sed) 1+ /hpf [facility] Neutrophil percentageOrdered By: Petar Barrera on 12-14-2024 Neutrophils/100 WBC (Bld) 90.5 % High 47-70 [facility] Nitrite Test strip Ql (U)Ord ered By: Petar Barrera on 12-14-2024 Nitrite Ql (U) Negative Negative [facility] Nucleated red blood cell per centageOrdered By: Petar Barrera on 12-14-2024 Nucleated RBC/100 WBC (Bld) [Ratio] 0 % 0-5 [facility] Platelet countOrdered By: Ann Barrera on 12-14-2024 Platelets (Bld) [#/Vol] 156 10*3/uL 150-450 [facility] Potassium measurement (mass/ volume)Ordered By: Petar Barrera on 12-14-2024 Potassium [Moles/Vol] 3.7 mmol/L Normal 3.3-5.1 [facility] Comment on above: Performed By: #### L 503.6006, L501.2450, L500.2500, L500.3400 ####[facility] [address] [facility] [place], [place], [id number] Protein Test strip Ql (U)Ord ered By: Petar Barrera on 12-14-2024 Protein Ql (U) 30 mg/dl High Negative [facility] RBC Auto (Bld) [#/Vol]Ordere d By: Petar Barrera on 12-14-2024 RBC (Bld) [#/Vol] 5.29 10*6/uL 4.6-6.2 [facility] Serum creatinine measurement (mass/volume)Ordered By: Petar Barrera on 12-14-2024 Creatinine [Mass/Vol] 1.01 mg/dL Normal 0.70-1.20 [facility] Comment on above: Performed By: #### L 503.6005, L501.2450, L500.2500, L500.3400 ####[facility] [address] [place], [address] Serum globulin measurementOr dered By: Petar Barrera on 12-14-2024 Globulin (S) [Mass/Vol] 2.9 g/dL Normal 2.2-4.2 [facility] Comment on above: Performed By: #### L 503.6005, L501.2450, L500.2500, L500.3400 ####[facility] [address] [place], [address] Serum glucose measurement (m ass/volume)Ordered By: Petar Barrera on 12-14-2024 Glucose [Mass/Vol] 123 mg/dL High 70-99 [facility] Comment on above: Performed By: #### L 503.6005, L501.2450, L500.2500, L500.3400 ####[facility] [address] [place], [address] Serum or plasma alanine mays otransferase (ALT) measurementOrdered By: Petar Barrera on 12-14-2024 ALT [Catalytic activity/Vol] 354 U/L High <=46 [facility] Comment on above: Performed By: #### L 503.6005, L501.2450, L500.2500, L500.3400 ####[facility] [address] [place], [address] Serum or plasma albumin marquise urement (mass/volume)Ordered By: Petar Barrera on 12-14-2024 Albumin [Mass/Vol] 3.7 g/dL Normal 3.5-5.0 [facility] Comment on above: Performed By: #### L 503.6005, L501.2450, L500.2500, L500.3400 ####[facility] [address] [place], [address] Serum or plasma alkaline daniel sphatase measurementOrdered By: Petar Barrera on 12-14-2024 ALP [Catalytic activity/Vol] 149 U/L High 40-129 [facility] Serum or plasma calcium marquise urement (mass/volume)Ordered By: Petar Barrera on 12-14-2024 Calcium [Mass/Vol] 9.5 mg/dL Normal 7.6-11.0 [facility] Comment on above: Performed By: #### L 503.6005, L501.2450, L500.2500, L500.3400 ####[facility] [address] [place], [address] Serum or plasma urea nitroge n measurement (mass/volume)Ordered By: Petar Barrera on 12-14-2024 Urea nitrogen [Mass/Vol] 12 mg/dL Normal 4-19 [facility] Comment on above: Performed By: #### L 503.6005, L501.2450, L500.2500, L500.3400 ####[facility] [address] [place], [address] Sodium levelOrdered By: Sara Barrera on 12-14-2024 Sodium [Moles/Vol] 138 mmol/L Normal 133-145 [facility] Comment on above: Performed By: #### L 503.6005, L501.2450, L500.2500, L500.3400 ####[facility] [address] [place], [address] Squamous epithelial cells de tection in urine sediment by light microscopyOrdered By: Petar Barrera on 12-14-2024 Epithelial cells.squamous LM Ql (Urine sed) 0 SEEN /hpf 0-5 [facility] Total proteinOrdered By: Sydney Barrera on 12-14-2024 Protein [Mass/Vol] 6.6 g/dL 5.9-8.4 [facility] Urinalysis, Completeon 12-14 Mucus Ql (Urine sed) 1+ /hpf Normal [facility] Comment on above: Order Comment: CLEAN CATCH Performed By: #### L 400.0001 ####[facility] [address] [place], [address] BACTERIA 2+ /hpf Normal None Seen [facility] Comment on above: Order Comment: CLEAN CATCH Performed By: #### L 400.0001 ####[facility] [address] [place], [address] RBC 0-5 SEEN Normal 0-5 [facility] Comment on above: Order Comment: CLEAN CATCH Performed By: #### L 400.0001 ####[facility] [address] [place], [address] WBC 0-5 SEEN Normal 0-5 [facility] Comment on above: Order Comment: CLEAN CATCH Performed By: #### L 400.0001 ####[facility] [address] [place], [address] EPI,SQUAMOUS 0 SEEN Normal 0-5 [facility] Comment on above: Order Comment: CLEAN CATCH Performed By: #### L 400.0001 ####[facility] [address] [place], [address] Urine blood detectionOrdered By: Petar Barrera on 12-14-2024 Urine Occult Blood 10 /ul High Negative [facility] Urine clarityOrdered By: Sydney Barrera on 12-14-2024 Clarity (U) Clear Clear [facility] Urine color determinationOrd ered By: Petar Barrera on 12-14-2024 Color (U) Yellow Yellow [facility] Urine glucose detectionOrder ed By: Petar Barrera on 12-14-2024 Glucose Ql (U) Normal mg/dl Normal [facility] Urine leukocyte esterase det ection by dipstickOrdered By: Petar Barrera on 12-14-2024 Leukocyte esterase Test strip Ql (U) 25 /ul High Negative [facility] Urine pHOrdered By: Petar fuchs on 12-14-2024 pH (U) 7.0 [pH] 5.0 - 8.0 [facility] Urine sediment bacteria coun t by microscopy (number/high power field)Ordered By: Petar Barrera on 12-14-2024 Bacteria LM.HPF (Urine sed) [#/Area] 2 /[HPF] None Seen [facility] Urine specific gravity measu rementOrdered By: Petar Barrera on 12-14-2024 Specific gravity (U) [Rel density] 1.005 1.002-1.030 [facility] Urine urobilinogen measureme ntOrdered By: Petar Barrera on 12-14-2024 Urobilinogen Ql (U) 1 mg/dl High Normal [facility] Urobilinogen Ql (U)Ordered B y: Petar Barrera on 12-14-2024 Urobilinogen (U) [Mass/Vol] 1 mg/dL High Normal [facility] White blood cell (WBC) count Ordered By: Petar Barrera on 12-14-2024 WBC (Bld) [#/Vol] 14.0 10*3/uL High 4.4-11.0 [facility] White blood cell countOrdere d By: Petar Barrera on 12-14-2024 Urine WBC 0-5 SEEN /hpf 0-5 [facility] White blood cell count 0-5 SEEN /hpf 0-5 [facility] 12 Lead EKGon 12-11-2024 12 Lead EKG Normal [facility] ERCP Biliary/Pancreason 11-28 ERCP Biliary/Pancreas Normal [facility] ERCP Reporton 12-11-2024 ERCP Report Normal [facility] MR/POSTOP.ANEon 12-11-2024 MR/POSTOP.ANE Normal [facility] MR/RNKRGITM1dl 12-11-2024 MR/POSTOPAN2 Normal [facility] Special Stain Group IIon Special Stain Group II Normal [facility] Comment on above: Performed By: #### P SSII ####[facility] [address] [place], [place], [id number] Carbohydrate AG 19-9on 09-15 CA 19-9 63 U/mL High 0-35 [facility] Comment on above: Order Comment: Test( s) 748008-Mhjkdx, Serum or Plasmawas developed and its performance characteristicsdetermined by [employer]. It has not been cleared or approvedby the Food and Drug Administration.N Result Comment: [employer] Electrochemiluminescence Immunoassay(ECLIA)Values obtained with different assay methods or kits cannotbe used interchangeably. Results cannot be interpreted asabsolute evidence of the presence or absence of malignantdisease. Performed By: #### L 3100.3425, L3100.5450, L500.4100, L500.4050, L3890.6005, L3300.0100, L503.6030, L3000.0375, L503.6550, L501.5101, L3400.0700, L501.4700, L3100.5020, L300.3900, L3890.6200, L501.6710, L506.1000, L501.9520 ####[facility] [address] [place], [place], [address] Ceruloplasminon 09-15-2024 CERULOPLASMIN 46.2 mg/dL High 16.0-31.0 [facility] Comment on above: Order Comment: Test( s) 842078-Nuvgje, Serum or Plasmawas developed and its performance characteristicsdetermined by [employer]. It has not been cleared or approvedby the Food and Drug Administration.N Performed By: #### L 3100.3425, L3100.5450, L500.4100, L500.4050, L3890.6005, L3300.0100, L503.6030, L3000.0375, L503.6550, L501.5101, L3400.0700, L501.4700, L3100.5020, L300.3900, L3890.6200, L501.6710, L506.1000, L501.9520 ####[facility] [address] [place], [place], [address] Copper, Serum or Plasmaon COPPER, SERUM 185 ug/dL High 69-132 [facility] Comment on above: Order Comment: Test( s) 889408-Jpywiy, Serum or Plasmawas developed and its performance characteristicsdetermined by [employer]. It has not been cleared or approvedby the Food and Drug Administration.N Result Comment: Dete ction Limit = 5Performed at: [facility] [address] [id number] Director: Raj Dick PhD, Phone: [phone] at: [facility] [address] [id number] Director: Kelly Jansen MD, Phone: [phone] Performed By: #### L 3100.3425, L3100.5450, L500.4100, L500.4050, L3890.6005, L3300.0100, L503.6030, L3000.0375, L503.6550, L501.5101, L3400.0700, L501.4700, L3100.5020, L300.3900, L3890.6200, L501.6710, L506.1000, L501.9520 ####[facility] [address] [place], [place], [address] Hepatitis Panel Acuteon 08-30 COMMENT Comment Normal . [facility] Comment on above: Order Comment: Test( s) 777472-Wqcytc, Serum or Plasmawas developed and its performance characteristicsdetermined by [employer]. It has not been cleared or approvedby the Food and Drug Administration.N Result Comment: Not infected with HCV unless early or acute infection issuspected (which may be delayed in an immunocompromisedindividual), or other evidence exists to indicate HCVinfection. Performed By: #### L 3100.3425, L3100.5450, L500.4100, L500.4050, L3890.6005, L3300.0100, L503.6030, L3000.0375, L503.6550, L501.5101, L3400.0700, L501.4700, L3100.5020, L300.3900, L3890.6200, L501.6710, L506.1000, L501.9520 ####[facility] [address] [place], [place], [address] HEP B CORE,IgM Negative Normal Negative [facility] Comment on above: Order Comment: Test( s) 160998-Wribxg, Serum or Plasmawas developed and its performance characteristicsdetermined by [employer]. It has not been cleared or approvedby the Food and Drug Administration.N Performed By: #### L 3100.3425, L3100.5450, L500.4100, L500.4050, L3890.6005, L3300.0100, L503.6030, L3000.0375, L503.6550, L501.5101, L3400.0700, L501.4700, L3100.5020, L300.3900, L3890.6200, L501.6710, L506.1000, L501.9520 ####[facility] [address] [place], [address] HEP B SURF AG Negative Normal Negative [facility] Comment on above: Order Comment: Test( s) 412502-Pkdfyk, Serum or Plasmawas developed and its performance characteristicsdetermined by [employer]. It has not been cleared or approvedby the Food and Drug Administration.N Performed By: #### L 3100.3425, L3100.5450, L500.4100, L500.4050, L3890.6005, L3300.0100, L503.6030, L3000.0375, L503.6550, L501.5101, L3400.0700, L501.4700, L3100.5020, L300.3900, L3890.6200, L501.6710, L506.1000, L501.9520 ####[facility] [address] [place], [address] HEP C VIRUS AB Non-Reactive Normal Non Reactive [facility] Comment on above: Order Comment: Test( s) 814319-Rtmosj, Serum or Plasmawas developed and its performance characteristicsdetermined by [employer]. It has not been cleared or approvedby the Food and Drug Administration.N Performed By: #### L 3100.3425, L3100.5450, L500.4100, L500.4050, L3890.6005, L3300.0100, L503.6030, L3000.0375, L503.6550, L501.5101, L3400.0700, L501.4700, L3100.5020, L300.3900, L3890.6200, L501.6710, L506.1000, L501.9520 ####[facility] [address] [place], [address] HEPATITIS A-IgM Negative Normal Negative [facility] Comment on above: Order Comment: Test( s) 178003-Xsffin, Serum or Plasmawas developed and its performance characteristicsdetermined by [employer]. It has not been cleared or approvedby the Food and Drug Administration.N Result Comment: A ne gative anti-HAV IgM result suggests no recent orcurrent HAV infection. Performed By: #### L 3100.3425, L3100.5450, L500.4100, L500.4050, L3890.6005, L3300.0100, L503.6030, L3000.0375, L503.6550, L501.5101, L3400.0700, L501.4700, L3100.5020, L300.3900, L3890.6200, L501.6710, L506.1000, L501.9520 ####[facility] [address] [facility] [place], [address] AYDEN + Protein Elect, Serumon 09-15-2024 Albumin [Mass/Vol] 3.3 g/dL Normal 2.9-4.4 [facility] Comment on above: Order Comment: Test( s) 528835-Mrqqcz, Serum or Plasmawas developed and its performance characteristicsdetermined by [employer]. It has not been cleared or approvedby the Food and Drug Administration.N Performed By: #### L 3100.3425, L3100.5450, L500.4100, L500.4050, L3890.6005, L3300.0100, L503.6030, L3000.0375, L503.6550, L501.5101, L3400.0700, L501.4700, L3100.5020, L300.3900, L3890.6200, L501.6710, L506.1000, L501.9520 ####[facility] [address] [facility] [place], [address] Albumin/Globulin [Mass ratio] 1.1 {ratio} Normal 0.7-1.7 [facility] Comment on above: Order Comment: Test( s) 440373-Qxfuhl, Serum or Plasmawas developed and its performance characteristicsdetermined by [employer]. It has not been cleared or approvedby the Food and Drug Administration.N Performed By: #### L 3100.3425, L3100.5450, L500.4100, L500.4050, L3890.6005, L3300.0100, L503.6030, L3000.0375, L503.6550, L501.5101, L3400.0700, L501.4700, L3100.5020, L300.3900, L3890.6200, L501.6710, L506.1000, L501.9520 ####[facility] [address] [place], [address] RZBWP-1-YXSG 0.3 g/dL Normal 0.0-0.4 [facility] Comment on above: Order Comment: Test( s) 267932-Qgofxi, Serum or Plasmawas developed and its performance characteristicsdetermined by [employer]. It has not been cleared or approvedby the Food and Drug Administration.N Performed By: #### L 3100.3425, L3100.5450, L500.4100, L500.4050, L3890.6005, L3300.0100, L503.6030, L3000.0375, L503.6550, L501.5101, L3400.0700, L501.4700, L3100.5020, L300.3900, L3890.6200, L501.6710, L506.1000, L501.9520 ####[facility] [address] [facility]. [place], [place], [address] WZXXD-9-LGUZ 0.7 g/dL Normal 0.4-1.0 [facility] Comment on above: Order Comment: Test( s) 267803-Pwtsjh, Serum or Plasmawas developed and its performance characteristicsdetermined by [employer]. It has not been cleared or approvedby the Food and Drug Administration.N Performed By: #### L 3100.3425, L3100.5450, L500.4100, L500.4050, L3890.6005, L3300.0100, L503.6030, L3000.0375, L503.6550, L501.5101, L3400.0700, L501.4700, L3100.5020, L300.3900, L3890.6200, L501.6710, L506.1000, L501.9520 ####[facility] [address] [facility]. [place], [place], [address] BETA GLOBULIN 1.4 g/dL High 0.7-1.3 [facility] Comment on above: Order Comment: Test( s) 968891-Toccvd, Serum or Plasmawas developed and its performance characteristicsdetermined by [employer]. It has not been cleared or approvedby the Food and Drug Administration.N Performed By: #### L 3100.3425, L3100.5450, L500.4100, L500.4050, L3890.6005, L3300.0100, L503.6030, L3000.0375, L503.6550, L501.5101, L3400.0700, L501.4700, L3100.5020, L300.3900, L3890.6200, L501.6710, L506.1000, L501.9520 ####[facility] [address] [place], [place], [address] GAMMA GLOBULIN 0.8 g/dL Normal 0.4-1.8 [facility] Comment on above: Order Comment: Test( s) 853378-Qovndx, Serum or Plasmawas developed and its performance characteristicsdetermined by [employer]. It has not been cleared or approvedby the Food and Drug Administration.N Performed By: #### L 3100.3425, L3100.5450, L500.4100, L500.4050, L3890.6005, L3300.0100, L503.6030, L3000.0375, L503.6550, L501.5101, L3400.0700, L501.4700, L3100.5020, L300.3900, L3890.6200, L501.6710, L506.1000, L501.9520 ####[facility] [address] [place], [place], [phone] Globulin (S) [Mass/Vol] 3.2 g/dL Normal 2.2-3.9 [facility] Comment on above: Order Comment: Test( s) 141844-Pmdwnf, Serum or Plasmawas developed and its performance characteristicsdetermined by [employer]. It has not been cleared or approvedby the Food and Drug Administration.N Performed By: #### L 3100.3425, L3100.5450, L500.4100, L500.4050, L3890.6005, L3300.0100, L503.6030, L3000.0375, L503.6550, L501.5101, L3400.0700, L501.4700, L3100.5020, L300.3900, L3890.6200, L501.6710, L506.1000, L501.9520 ####[facility] [address] [place], [place], [id number]) AYDEN RESULT,S Comment Normal . [facility] Comment on above: Order Comment: Test( s) [id number], Serum or Plasmawas developed and its performance characteristicsdetermined by [employer]. It has not been cleared or approvedby the Food and Drug Administration.N Result Comment: No m onoclonality detected. Performed By: #### L 3100.3425, L3100.5450, L500.4100, L500.4050, L3890.6005, L3300.0100, L503.6030, L3000.0375, L503.6550, L501.5101, L3400.0700, L501.4700, L3100.5020, L300.3900, L3890.6200, L501.6710, L506.1000, L501.9520 ####[facility] [address] [place], [place], [phone] IMMUNOGLOB A QN 150 mg/dL Normal 90-386 [facility] Comment on above: Order Comment: Test( s) 219213-Cdwbee, Serum or Plasmawas developed and its performance characteristicsdetermined by [employer]. It has not been cleared or approvedby the Food and Drug Administration.N Performed By: #### L 3100.3425, L3100.5450, L500.4100, L500.4050, L3890.6005, L3300.0100, L503.6030, L3000.0375, L503.6550, L501.5101, L3400.0700, L501.4700, L3100.5020, L300.3900, L3890.6200, L501.6710, L506.1000, L501.9520 ####[facility] [address] [place], [place], [phone] IMMUNOGLOB G QN 904 mg/dL Normal 603-1613 [facility] Comment on above: Order Comment: Test( s) 580696-Vuwxbk, Serum or Plasmawas developed and its performance characteristicsdetermined by [employer]. It has not been cleared or approvedby the Food and Drug Administration.N Performed By: #### L 3100.3425, L3100.5450, L500.4100, L500.4050, L3890.6005, L3300.0100, L503.6030, L3000.0375, L503.6550, L501.5101, L3400.0700, L501.4700, L3100.5020, L300.3900, L3890.6200, L501.6710, L506.1000, L501.9520 ####[facility] [address] [place], [place], [id number] IMMUNOGLOB M QN 48 mg/dL Normal 20-172 [facility] Comment on above: Order Comment: Test( s) 416175-Filedj, Serum or Plasmawas developed and its performance characteristicsdetermined by [employer]. It has not been cleared or approvedby the Food and Drug Administration.N Performed By: #### L 3100.3425, L3100.5450, L500.4100, L500.4050, L3890.6005, L3300.0100, L503.6030, L3000.0375, L503.6550, L501.5101, L3400.0700, L501.4700, L3100.5020, L300.3900, L3890.6200, L501.6710, L506.1000, L501.9520 ####[facility] [address] [place], [place], [id number] M-Mychal Not Observed Normal Not Observed [facility] Comment on above: Order Comment: Test( s) 172262-Ujvtwz, Serum or Plasmawas developed and its performance characteristicsdetermined by [employer]. It has not been cleared or approvedby the Food and Drug Administration.N Performed By: #### L 3100.3425, L3100.5450, L500.4100, L500.4050, L3890.6005, L3300.0100, L503.6030, L3000.0375, L503.6550, L501.5101, L3400.0700, L501.4700, L3100.5020, L300.3900, L3890.6200, L501.6710, L506.1000, L501.9520 ####[facility] [address] [place], [place], [address] NOTE: Comment Normal . [facility] Comment on above: Order Comment: Test( s) 893738-Kbwfre, Serum or Plasmawas developed and its performance characteristicsdetermined by [employer] It has not been cleared or approvedby the Food and Drug Administration.N Result Comment: Prot ein electrophoresis scan will follow via computer,mail, or merchandise marker delivery. Performed By: #### L 3100.3425, L3100.5450, L500.4100, L500.4050, L3890.6005, L3300.0100, L503.6030, L3000.0375, L503.6550, L501.5101, L3400.0700, L501.4700, L3100.5020, L300.3900, L3890.6200, L501.6710, L506.1000, L501.9520 ####[facility] [address] [place], [address] Protein [Mass/Vol] 6.5 g/dL Normal 6.0-8.5 [facility] Comment on above: Order Comment: Test( s) 946826-Dtiicy, Serum or Plasmawas developed and its performance characteristicsdetermined by [employer]. It has not been cleared or approvedby the Food and Drug Administration.N Performed By: #### L 3100.3425, L3100.5450, L500.4100, L500.4050, L3890.6005, L3300.0100, L503.6030, L3000.0375, L503.6550, L501.5101, L3400.0700, L501.4700, L3100.5020, L300.3900, L3890.6200, L501.6710, L506.1000, L501.9520 ####[facility] [address] [place], [place], [address] L501.5101on 09-15-2024 GGTP 69 IU/L Abnormal 0-65 [facility] Comment on above: Order Comment: Test( s) 307311-Wiobeg, Serum or Plasmawas developed and its performance characteristicsdetermined by [employer]. It has not been cleared or approvedby the Food and Drug Administration.N Performed By: #### L 3100.3425, L3100.5450, L500.4100, L500.4050, L3890.6005, L3300.0100, L503.6030, L3000.0375, L503.6550, L501.5101, L3400.0700, L501.4700, L3100.5020, L300.3900, L3890.6200, L501.6710, L506.1000, L501.9520 ####[facility] [address] [facility] [address] [place], [address] AFP, Tumor Markeron 09-14-20 AFP TUMOR ADRIANA 3.2 ng/mL Normal 0.0-6.9 [facility] Comment on above: Order Comment: NN [...] interpretable in females. _ TESTING PERFORMED AT [facility]. ORIGINAL REPORT ON FILE IN LAB CONTAINS ADDITIONAL TEST SITE INFORMATION. Performed By: #### L 3200.1100, L3300.0700, L3300.1200, L3200.0500, L504.2610 ####[facility] [address] [place], [place], [id number] QUIQUE w/ Reflex Mult Confirmon 09-14-2024 QUIQUE,DIRECT Negative Normal Negative [facility] Comment on above: Result Comment: Perf ormed at: [address] [id number] Director: Raj Dick PhD, Phone: [phone] Performed By: #### L 3100.3425, L3100.5450, L500.4100, L500.4050, L3890.6005, L3300.0100, L503.6030, L3000.0375, L503.6550, L501.5101, L3400.0700, L501.4700, L3100.5020, L300.3900, L3890.6200, L501.6710, L506.1000, L501.9520 ####[facility] [address] [place], [place], [phone] ANCAon 09-14-2024 Atypical pANCA <1:20 Normal Neg:<1:20 [facility] Comment on above: Order Comment: NN Result Comment: Note : Specimen is icteric.The atypical pANCA pattern has been observed in asignificant percentage of patients with ulcerative colitis,primary sclerosing cholangitis and autoimmune hepatitis. Performed By: #### L 3200.1100, L3300.0700, L3300.1200, L3200.0500, L504.2610 ####[facility] [address] [place], [place], [id number] Perinuclear Ab. <1:20 Normal Neg:<1:20 [facility] Comment on above: Order Comment: NN Result Comment: Note : Specimen is icteric.The presence of positive fluorescence exhibiting P-ANCA orC-ANCA patterns alone is not specific for the diagnosis ofWegener's Granulomatosis (WG) or microscopic polyangiitis.Decisions about treatment should not be based solely onANCA IFA results. The International ANCA Group Consensusrecommends follow up testing of positive sera with both LA-3 and MPO-ANCA enzyme immunoassays. As many as 5% serumsamples are positive only by EIA. Ref. AM J Clin Amhhxy0648;111:507-513. Performed By: #### L 3200.1100, L3300.0700, L3300.1200, L3200.0500, L504.2610 ####[facility] [address] [place], [place], [address] HIV - WCHon 09-14-2024 HIV Non-Reactive Normal Nonreactive [facility] Comment on above: Performed By: #### L 3100.3425, L3100.5450, L500.4100, L500.4050, L3890.6005, L3300.0100, L503.6030, L3000.0375, L503.6550, L501.5101, L3400.0700, L501.4700, L3100.5020, L300.3900, L3890.6200, L501.6710, L506.1000, L501.9520 ####[facility] [address] [place], [place], [address] Hepatitis B Surface Antibody on 09-14-2024 HEP B Surf Ab Non-Reactive Normal [facility] Comment on above: Result Comment: Non Reactive: Inconsistent with immunity less than <10 mIU/mL Reactive: Consistent with immunity greater than or equal to 10 mIU/mL Performed By: #### L 3100.3425, L3100.5450, L500.4100, L500.4050, L3890.6005, L3300.0100, L503.6030, L3000.0375, L503.6550, L501.5101, L3400.0700, L501.4700, L3100.5020, L300.3900, L3890.6200, L501.6710, L506.1000, L501.9520 ####[facility] [address] [place], [address] IgG Subclasseson 09-14-2024 IgG, SUBCLASS 1 386 mg/dL Normal 248-810 [facility] Comment on above: Order Comment: NN Performed By: #### L 3200.1100, L3300.0700, L3300.1200, L3200.0500, L504.2610 ####[facility] [address] [place], [address] IgG, SUBCLASS 2 276 mg/dL Normal 130-555 [facility] Comment on above: Order Comment: NN Performed By: #### L 3200.1100, L3300.0700, L3300.1200, L3200.0500, L504.2610 ####[facility] [address] [place], [address] IgG, SUBCLASS 3 40 mg/dL Normal 15-102 [facility] Comment on above: Order Comment: NN Performed By: #### L 3200.1100, L3300.0700, L3300.1200, L3200.0500, L504.2610 ####[facility] [address] [place], [address] IgG, SUBCLASS 4 89 mg/dL Normal 2-96 [facility] Comment on above: Order Comment: NN Performed By: #### L 3200.1100, L3300.0700, L3300.1200, L3200.0500, L504.2610 ####[facility] [address] [place], [address] Immunoglobulins G/A/M/Brown IMMUNOGLOB A QN 140 mg/dL Normal 90-386 [facility] Comment on above: Order Comment: NN Performed By: #### L 3200.1100, L3300.0700, L3300.1200, L3200.0500, L504.2610 ####[facility] [address] [place], [address] IMMUNOGLOB E QN 40 IU/mL Normal 6-495 [facility] Comment on above: Order Comment: NN Performed By: #### L 3200.1100, L3300.0700, L3300.1200, L3200.0500, L504.2610 ####[facility] [address] [place], [address] IMMUNOGLOB M QN 42 mg/dL Normal 20-172 [facility] Comment on above: Order Comment: NN Performed By: #### L 3200.1100, L3300.0700, L3300.1200, L3200.0500, L504.2610 ####[facility] [address] [place], [place], [address] Vitamin D,25 Hydroxyon 09-14 Vitamin D 25-OH 52.6 ng/mL Normal [facility] Comment on above: Result Comment: Ruth Ann min D 25(OH) Status Range Deficiency <20 ng/mL (50nmol/L) Insufficiency 20 - 30 ng/mL (50 - 75 nmol/L) Sufficiency 30 - 100 ng/mL (75 - 250 nmol/L) Toxicity >100 ng/mL (>250 nmol/L) Performed By: #### L 3100.3425, L3100.5450, L500.4100, L500.4050, L3890.6005, L3300.0100, L503.6030, L3000.0375, L503.6550, L501.5101, L3400.0700, L501.4700, L3100.5020, L300.3900, L3890.6200, L501.6710, L506.1000, L501.9520 ####[facility] [address] [place], [address] 66-YR-Tingekk DOrdered By: Sarah Lui on 09-11-2024 Vitamin D 25-Hydroxy 52.6 ng/mL [facility] Comment on above: Vitamin D 25(OH) Sta tus Range Deficiency <20 ng/mL (50nmol/L) Insufficiency 20 - 30 ng/mL (50 - 75 nmol/L) Sufficiency 30 - 100 ng/mL (75 - 250 nmol/L) Toxicity >100 ng/mL (>250 nmol/L) QUIQUE serumOrdered By: Francesco Lui on 09-11-2024 Anti-Nuclear Antibody Screen Negative Negative [facility] Comment on above: Performed at: [place] [id number] Director: Raj Dick PhD, Phone: [phone] Addendum DocumentOrdered By: Francesco Lui on 09-11-2024 Serum Immunofixation Comments Comment . [facility] Comment on above: Protein electrophore sis scan will follow via computer,mail, or merchandise marker delivery. Albumin Elph [Mass/Vol]Order ed By: Francesco Lui on 09-11-2024 Albumin [Mass/Vol] 3.3 g/dL 2.9-4.4 [facility] Albumin to globulin ratioOrd ered By: Francesco Lui on 09-11-2024 Albumin/Globulin [Mass ratio] 0.8 {ratio} Low 0.9-2.4 [facility] Alpha 1 globulin Elph [Mass/ Vol]Ordered By: Francesco Lui on 09-11-2024 Fxegl-1-Sajywuwmo (AYDEN) 0.3 g/dL 0.0-0.4 [facility] Gqcpc-6-Awqlpcltj (AYDEN) 0.7 g/dL 0.4-1.0 [facility] Beta globulin Elph [Mass/Vol ]Ordered By: Francesco Lui on 09-11-2024 Beta-Globulins (AYDEN) 1.4 g/dL High 0.7-1.3 [facility] Bilirubin directOrdered By: Francesco Lui on 09-11-2024 Bilirubin.direct [Mass/Vol] 11.21 mg/dL High 0.00-0.30 [facility] Bilirubin, Directon 09-11-20 24 Bilirubin.direct [Mass/Vol] 11.21 mg/dL High 0.00-0.30 [facility] Comment on above: Performed By: #### L 3100.3425, L3100.5450, L500.4100, L500.4050, L3890.6005, L3300.0100, L503.6030, L3000.0375, L503.6550, L501.5101, L3400.0700, L501.4700, L3100.5020, L300.3900, L3890.6200, L501.6710, L506.1000, L501.9520 ####[facility] [address] [place], [address] Bilirubin, totalOrdered By: Francesco Lui on 09-11-2024 Bilirubin [Mass/Vol] 14.00 mg/dL High 0.20-1.00 [facility] Comment on above: For patients on eltr ombopag therapy, use of Dimension Sullivan TBIL is not recommended. Blood urea nitrogen (BUN)/cr eatinine ratioOrdered By: Francesco Lui on 09-11-2024 Urea nitrogen/Creatinine [Mass ratio] 13.9 mg/mg 10- [facility] C-reactive protein measureme nt by high sensitivity methodOrdered By: Francesco Lui on 09-11-2024 C-Reactive Protein Extended Range < 2.90 mg/L 0.0-3.0 [facility] Comment on above: C-Reactive Protein ( CRP) provides useful information for thediagnosis, therapy and monitoring of inflammatory processesand associated diseases. For the evaluation of Relative Riskfor Cardiovascular Disease, a High Sensitivity CRP (HSCRP)should be ordered. CA 19-9 agOrdered By: Flori Lui on 09-11-2024 CA 19-9 Antigen 63 U/mL High 0-35 [facility] Comment on above: [employer] El ectrochemiluminescence Immunoassay(ECLIA)Values obtained with different assay methods or kits cannotbe used interchangeably. Results cannot be interpreted asabsolute evidence of the presence or absence of malignantdisease. CRPon 09-11-2024 C-REACTIVE PROT < 2.90 Normal 0.0-3.0 [facility] Comment on above: Result Comment: C-Re active Protein (CRP) provides useful information for thediagnosis, therapy and monitoring of inflammatory processesand associated diseases. For the evaluation of Relative Riskfor Cardiovascular Disease, a High Sensitivity CRP (HSCRP)should be ordered. Performed By: #### L 3100.3425, L3100.5450, L500.4100, L500.4050, L3890.6005, L3300.0100, L503.6030, L3000.0375, L503.6550, L501.5101, L3400.0700, L501.4700, L3100.5020, L300.3900, L3890.6200, L501.6710, L506.1000, L501.9520 ####[facility] [address] [place], [address] Carbon dioxide measurementOr dered By: Francesco Lui on 09-11-2024 CO2 [Moles/Vol] 25.0 mmol/L 21.0-32.0 [facility] Centromere B antibody assayO rdered By: Francesco Lui on 09-11-2024 Centromere B Antibody Not Reportable [facility] CeruloplasminOrdered By: Mendoza Lui on 09-11-2024 Ceruloplasmin 46.2 mg/dL High 16.0-31.0 [facility] Chloride measurementOrdered By: Francesco Lui on 09-11-2024 Chloride [Moles/Vol] 105 mmol/L 98-107 [facility] Comprehensive Metabolic Prof ilon 09-11-2024 Albumin [Mass/Vol] 3.2 g/dL Normal 3.2-5.0 [facility] Comment on above: Performed By: #### L 3100.3425, L3100.5450, L500.4100, L500.4050, L3890.6005, L3300.0100, L503.6030, L3000.0375, L503.6550, L501.5101, L3400.0700, L501.4700, L3100.5020, L300.3900, L3890.6200, L501.6710, L506.1000, L501.9520 ####[facility] [address] [place], [place], [id number] Albumin/Globulin [Mass ratio] 0.8 {ratio} Low 0.9-2.4 [facility] Comment on above: Performed By: #### L 3100.3425, L3100.5450, L500.4100, L500.4050, L3890.6005, L3300.0100, L503.6030, L3000.0375, L503.6550, L501.5101, L3400.0700, L501.4700, L3100.5020, L300.3900, L3890.6200, L501.6710, L506.1000, L501.9520 ####[facility] [address] [place], [place], [address] ALK P 155 U/L High 45-117 [facility] Comment on above: Performed By: #### L 3100.3425, L3100.5450, L500.4100, L500.4050, L3890.6005, L3300.0100, L503.6030, L3000.0375, L503.6550, L501.5101, L3400.0700, L501.4700, L3100.5020, L300.3900, L3890.6200, L501.6710, L506.1000, L501.9520 ####[facility] [address] [place], [place], [address] ALT [Catalytic activity/Vol] 70 U/L [facility] 16-61 [facility] Comment on above: Performed By: #### L 3100.3425, L3100.5450, L500.4100, L500.4050, L3890.6005, L3300.0100, L503.6030, L3000.0375, L503.6550, L501.5101, L3400.0700, L501.4700, L3100.5020, L300.3900, L3890.6200, L501.6710, L506.1000, L501.9520 ####[facility] [address] [place], [address] AST [Catalytic activity/Vol] 64 U/L High 15-37 [facility] Comment on above: Performed By: #### L 3100.3425, L3100.5450, L500.4100, L500.4050, L3890.6005, L3300.0100, L503.6030, L3000.0375, L503.6550, L501.5101, L3400.0700, L501.4700, L3100.5020, L300.3900, L3890.6200, L501.6710, L506.1000, L501.9520 ####[facility] [address] [place], [address] Bilirubin [Mass/Vol] 14.00 mg/dL High 0.20-1.00 [facility] Comment on above: Result Comment: For patients on eltrombopag therapy, use of Dimension Sullivan TBIL is not recommended. Performed By: #### L 3100.3425, L3100.5450, L500.4100, L500.4050, L3890.6005, L3300.0100, L503.6030, L3000.0375, L503.6550, L501.5101, L3400.0700, L501.4700, L3100.5020, L300.3900, L3890.6200, L501.6710, L506.1000, L501.9520 ####[facility] [address] [place], [address] BUN/CRE 13.9 RATIO Normal 10-20 [facility] Comment on above: Performed By: #### L 3100.3425, L3100.5450, L500.4100, L500.4050, L3890.6005, L3300.0100, L503.6030, L3000.0375, L503.6550, L501.5101, L3400.0700, L501.4700, L3100.5020, L300.3900, L3890.6200, L501.6710, L506.1000, L501.9520 ####[facility] [address] [place], [address] CA,Total 9.9 mg/dL Normal 8.5-10.1 [facility] Comment on above: Performed By: #### L 3100.3425, L3100.5450, L500.4100, L500.4050, L3890.6005, L3300.0100, L503.6030, L3000.0375, L503.6550, L501.5101, L3400.0700, L501.4700, L3100.5020, L300.3900, L3890.6200, L501.6710, L506.1000, L501.9520 ####[facility] [address] [place], [address] Chloride [Moles/Vol] 105 mmol/L Normal 98-107 [facility] Comment on above: Performed By: #### L 3100.3425, L3100.5450, L500.4100, L500.4050, L3890.6005, L3300.0100, L503.6030, L3000.0375, L503.6550, L501.5101, L3400.0700, L501.4700, L3100.5020, L300.3900, L3890.6200, L501.6710, L506.1000, L501.9520 ####[facility] [address] [place], [address] CO2 [Moles/Vol] 25.0 mmol/L Normal 21.0-32.0 [facility] Comment on above: Performed By: #### L 3100.3425, L3100.5450, L500.4100, L500.4050, L3890.6005, L3300.0100, L503.6030, L3000.0375, L503.6550, L501.5101, L3400.0700, L501.4700, L3100.5020, L300.3900, L3890.6200, L501.6710, L506.1000, L501.9520 ####[facility] [address] [place], [address] Creatinine [Mass/Vol] 1.22 mg/dL Normal 0.70-1.30 [facility] Comment on above: Result Comment: Mode rate Icterus, Result may be falsely decreased.The validity of the calculated GFR GFRAA in patients over70 years has not been determined. Clinical correlation isessential. Performed By: #### L 3100.3425, L3100.5450, L500.4100, L500.4050, L3890.6005, L3300.0100, L503.6030, L3000.0375, L503.6550, L501.5101, L3400.0700, L501.4700, L3100.5020, L300.3900, L3890.6200, L501.6710, L506.1000, L501.9520 ####[facility] [address] [place], [place], [id number] EST GFR - AA 84 mL/min Normal >60 [facility] Comment on above: Result Comment: Afri can Yemeni GFR Calc Performed By: #### L 3100.3425, L3100.5450, L500.4100, L500.4050, L3890.6005, L3300.0100, L503.6030, L3000.0375, L503.6550, L501.5101, L3400.0700, L501.4700, L3100.5020, L300.3900, L3890.6200, L501.6710, L506.1000, L501.9520 ####[facility] [address] [place], [address] GAP 7 Normal 5-15 [facility] Comment on above: Performed By: #### L 3100.3425, L3100.5450, L500.4100, L500.4050, L3890.6005, L3300.0100, L503.6030, L3000.0375, L503.6550, L501.5101, L3400.0700, L501.4700, L3100.5020, L300.3900, L3890.6200, L501.6710, L506.1000, L501.9520 ####[facility] [address] [place], [address] GFR/1.73 sq M.predicted among non-blacks MDRD (S/P/Bld) [Vol rate/Area] 70 mL/min/{1.73_m2} Normal >60 [facility] Comment on above: Result Comment: Non- GFR Calc Performed By: #### L 3100.3425, L3100.5450, L500.4100, L500.4050, L3890.6005, L3300.0100, L503.6030, L3000.0375, L503.6550, L501.5101, L3400.0700, L501.4700, L3100.5020, L300.3900, L3890.6200, L501.6710, L506.1000, L501.9520 ####[facility] [address] [place], [address] Globulin (S) [Mass/Vol] 3.8 g/dL Normal 2.2-4.2 [facility] Comment on above: Performed By: #### L 3100.3425, L3100.5450, L500.4100, L500.4050, L3890.6005, L3300.0100, L503.6030, L3000.0375, L503.6550, L501.5101, L3400.0700, L501.4700, L3100.5020, L300.3900, L3890.6200, L501.6710, L506.1000, L501.9520 ####[facility] [address] [place], [place], [address] Glucose [Mass/Vol] 112 mg/dL High 74-106 [facility] Comment on above: Result Comment: Fast ing Glucose result from 100 to 125 mg/dLsuggests IMPAIRED HOMEOSTASIS per A.D.A. criteria. Performed By: #### L 3100.3425, L3100.5450, L500.4100, L500.4050, L3890.6005, L3300.0100, L503.6030, L3000.0375, L503.6550, L501.5101, L3400.0700, L501.4700, L3100.5020, L300.3900, L3890.6200, L501.6710, L506.1000, L501.9520 ####[facility] [address] [place], [place], [address] Potassium [Moles/Vol] 4.0 mmol/L Normal 3.5-5.1 [facility] Comment on above: Performed By: #### L 3100.3425, L3100.5450, L500.4100, L500.4050, L3890.6005, L3300.0100, L503.6030, L3000.0375, L503.6550, L501.5101, L3400.0700, L501.4700, L3100.5020, L300.3900, L3890.6200, L501.6710, L506.1000, L501.9520 ####[facility] [address] [place], [place], [id number] Sodium [Moles/Vol] 137 mmol/L Normal 136-145 [facility] Comment on above: Performed By: #### L 3100.3425, L3100.5450, L500.4100, L500.4050, L3890.6005, L3300.0100, L503.6030, L3000.0375, L503.6550, L501.5101, L3400.0700, L501.4700, L3100.5020, L300.3900, L3890.6200, L501.6710, L506.1000, L501.9520 ####[facility] [address] [place], [place], [id number]) T PROT 7.0 g/dL Normal 6.4-8.2 [facility] Comment on above: Result Comment: Mode rate Icterus, Result may be falsely decreased. Performed By: #### L 3100.3425, L3100.5450, L500.4100, L500.4050, L3890.6005, L3300.0100, L503.6030, L3000.0375, L503.6550, L501.5101, L3400.0700, L501.4700, L3100.5020, L300.3900, L3890.6200, L501.6710, L506.1000, L501.9520 ####[facility] [address] [place], [place], [id number] Urea nitrogen [Mass/Vol] 17 mg/dL Normal 7-18 [facility] Comment on above: Performed By: #### L 3100.3425, L3100.5450, L500.4100, L500.4050, L3890.6005, L3300.0100, L503.6030, L3000.0375, L503.6550, L501.5101, L3400.0700, L501.4700, L3100.5020, L300.3900, L3890.6200, L501.6710, L506.1000, L501.9520 ####[facility] [address] [place], [place], [id number] Copper, serumOrdered By: Mendoza Lui on 09-11-2024 Serum Copper 185 ug/dL High 69-132 [facility] Comment on above: Detection Limit = 5P erformed at: [id number] [place], [place] [id number] Director: Raj Dick PhD, Phone: [phone] at: [facility] [id number] Director: Kelly Jansen MD, Phone: [phone] DNA double strand Ab Qn (S)O rdered By: Francesco Lui on 09-11-2024 Anti-Double Strand DNA Antibody Not Reportable [facility] Estimated glomerular filtrat ion rate (GFR) AmericanOrdered By: Francesco Lui on 09-11-2024 Estimated GFR (MDRD) Amer 84 mL/min >60 [facility] Comment on above: GFR Calc Ferritinon 09-11-2024 Ferritin [Mass/Vol] 746 ng/mL High 26-388 [facility] Comment on above: Result Comment: Mode rate Icterus, Result may be falsely decreased. Performed By: #### L 3100.3425, L3100.5450, L500.4100, L500.4050, L3890.6005, L3300.0100, L503.6030, L3000.0375, L503.6550, L501.5101, L3400.0700, L501.4700, L3100.5020, L300.3900, L3890.6200, L501.6710, L506.1000, L501.9520 ####[facility] [address] [place], [place], [id number] Ferritin measurementOrdered By: Francesco Lui on 09-11-2024 Ferritin [Mass/Vol] 746 ng/mL High 26-388 [facility] Comment on above: Moderate Icterus, Re sult may be falsely decreased. Gamma globulin Elph [Mass/Vo l]Ordered By: Francesco Lui on 09-11-2024 Gamma Globulins (AYDEN) 0.8 g/dL 0.4-1.8 [facility] Gamma glutamyl transferase ( GGT) measurementOrdered By: Francesco Lui on 09-11-2024 Amylase [Catalytic activity/Vol] 69 U/L High 0-65 [facility] Gastroenterology Visit Repor ton 09-11-2024 Gastroenterology Visit Report Normal [facility] Glomerular filtration rate ( GFR) estimationOrdered By: Francesco Lui on 09-11-2024 Estimated GFR (MDRD) Non-Af Amer 70 mL/min >60 [facility] Comment on above: Non- GFR Calc Glucose measurementOrdered B y: Francesco Lui on 09-11-2024 Glucose [Mass/Vol] 112 mg/dL High 74-106 [facility] Comment on above: Fasting Glucose resu lt from 100 to 125 mg/dL suggests IMPAIRED HOMEOSTASIS per A.D.A. criteria. HBV surface Ag IA QlOrdered By: Francesco Lui on 09-11-2024 Hepatitis B Surface Antigen Negative Negative [facility] HBV surface IgG Ql (S)Ordere d By: Francesco Lui on 09-11-2024 Hepatitis B Surface Antibody Non-Reactive [facility] Comment on above: Non Reactive: Incons istent with immunity less than <10 mIU/mL Reactive: Consistent with immunity greater than or equal to 10 mIU/mL HIV 1+2 Ab+HIV1 p24 Ag IA Ql Ordered By: Francesco Lui on 09-11-2024 HIV (1&2) Antibody Non-Reactive Nonreactive [facility] Hepatitis A virus IgM antibo dy assayOrdered By: Francesco Lui on 09-11-2024 Hepatitis A IgM Antibody Negative Negative [facility] Comment on above: A negative anti-HAV IgM result suggests no recent orcurrent HAV infection. Hepatitis B virus core IgM a ntibody assayOrdered By: Francesco Lui on 09-11-2024 Hepatitis B Core IgM Antibody Negative Negative [facility] Hepatitis C virus antibody a ssayOrdered By: Francesco Lui on 09-11-2024 Hepatitis C Antibody (EIA) Non-Reactive Non Reactive [facility] High density lipoprotein (HD L) measurementOrdered By: Francesco Lui on 09-11-2024 Cholesterol in HDL [Mass/Vol] 7 mg/dL Low >40 [facility] Comment on above: The drugs N-Acetylcy steine and Metamizole may falsely depress this assay. Reference Range HDL <40 mg/dL Low HDL Cholesterol HDL >or= 60 mg/dL High HDL Cholesterol IgA [Mass/Vol]Ordered By: Gracie Lui on 09-11-2024 Immunoglobulin A 150 mg/dL 90-386 [facility] IgG [Mass/Vol]Ordered By: Gracie Lui on 09-11-2024 Immunoglobulin G 904 mg/dL 603-1613 [facility] Immunoglobulin M measurement Ordered By: Francesco Lui on 09-11-2024 Immunoglobulin M 48 mg/dL 20-172 [facility] International normalized rat io (INR) calculationOrdered By: Francesco Lui on 09-11-2024 INR Coag (Bld) [Relative time] 0.9 {INR} [facility] Interpretation IEP [Interp]O rdered By: Francesco Lui on 09-11-2024 Immunofixation Screen Comment . [facility] Comment on above: No monoclonality det ected. Iron (Unsp spec) [Mass/Mass] Ordered By: Francesco Lui on 09-11-2024 Iron [Mass/Vol] 123 ug/dL 65-175 [facility] Iron saturation [Mass fracti on]Ordered By: Francesco Lui on 09-11-2024 Iron Saturation 32.5 % 15.0-55.0 [facility] Iron+Iron Binding Capacityon 09-11-2024 Iron [Mass/Vol] 123 ug/dL Normal 65-175 [facility] Comment on above: Performed By: #### L 3100.3425, L3100.5450, L500.4100, L500.4050, L3890.6005, L3300.0100, L503.6030, L3000.0375, L503.6550, L501.5101, L3400.0700, L501.4700, L3100.5020, L300.3900, L3890.6200, L501.6710, L506.1000, L501.9520 ####[facility] [address] [place], [place], [id number] IRON SATURATION 32.5 Normal 15.0-55.0 [facility] Comment on above: Performed By: #### L 3100.3425, L3100.5450, L500.4100, L500.4050, L3890.6005, L3300.0100, L503.6030, L3000.0375, L503.6550, L501.5101, L3400.0700, L501.4700, L3100.5020, L300.3900, L3890.6200, L501.6710, L506.1000, L501.9520 ####[facility] [address] [place], [place], [id number] TIBC 378 ug/dL Normal 250-450 [facility] Comment on above: Performed By: #### L 3100.3425, L3100.5450, L500.4100, L500.4050, L3890.6005, L3300.0100, L503.6030, L3000.0375, L503.6550, L501.5101, L3400.0700, L501.4700, L3100.5020, L300.3900, L3890.6200, L501.6710, L506.1000, L501.9520 ####[facility] [address] [place], [place], [id number] Tessa-1 antibody assayOrdered B y: Francesco Lui on 09-11-2024 TESSA-1 Antibody Not Reportable [facility] Laboratory - Chemistry and C hemistry - challengeOrdered By: Francesco Lui on 09-11-2024 AST [Catalytic activity/Vol] 64 U/L High 15-37 [facility] Lipid Profileon 09-11-2024 Cholesterol [Mass/Vol] 215 mg/dL High 200 [facility] Comment on above: Result Comment: Mode rate Icterus, Result may be falsely decreased. <200 mg/dL Desirable 200-240 mg/dL Borderline >240 mg/dL High Risk Performed By: #### L 3100.3425, L3100.5450, L500.4100, L500.4050, L3890.6005, L3300.0100, L503.6030, L3000.0375, L503.6550, L501.5101, L3400.0700, L501.4700, L3100.5020, L300.3900, L3890.6200, L501.6710, L506.1000, L501.9520 ####[facility] [address] [facility] [place], [address] Cholesterol in HDL [Mass/Vol] 7 mg/dL Low [facility] Comment on above: Result Comment: The drugs N-Acetylcysteine and Metamizole may falselydepress this assay. Reference Range HDL <40 mg/dL Low HDL Cholesterol HDL >or= 60 mg/dL High HDL Cholesterol Performed By: #### L 3100.3425, L3100.5450, L500.4100, L500.4050, L3890.6005, L3300.0100, L503.6030, L3000.0375, L503.6550, L501.5101, L3400.0700, L501.4700, L3100.5020, L300.3900, L3890.6200, L501.6710, L506.1000, L501.9520 ####[facility] [address] [facility] [place], [address] Cholesterol in LDL [Mass/Vol] 139 mg/dL High 0-130 [facility] Comment on above: Performed By: #### L 3100.3425, L3100.5450, L500.4100, L500.4050, L3890.6005, L3300.0100, L503.6030, L3000.0375, L503.6550, L501.5101, L3400.0700, L501.4700, L3100.5020, L300.3900, L3890.6200, L501.6710, L506.1000, L501.9520 ####[facility] [address] [facility] [place], [address] Cholesterol in VLDL [Mass/Vol] 69 mg/dL High 5-40 [facility] Comment on above: Performed By: #### L 3100.3425, L3100.5450, L500.4100, L500.4050, L3890.6005, L3300.0100, L503.6030, L3000.0375, L503.6550, L501.5101, L3400.0700, L501.4700, L3100.5020, L300.3900, L3890.6200, L501.6710, L506.1000, L501.9520 ####[facility] [address] [facility] [place], [place], [id number] Triglyceride [Mass/Vol] 345 mg/dL High [facility] Comment on above: Result Comment: The [...] L501.4700, L3100.5020, L300.3900, L3890.6200, L501.6710, L506.1000, L501.9520 ####[facility] [address] [facility] [place], [place], [id number] Low density lipoprotein (LDL ) cholesterol measurementOrdered By: Francesco Lui on 09-11-2024 Cholesterol in LDL [Mass/Vol] 139 mg/dL High 0-130 [facility] No Panel InformationOrdered By: Francesco Lui on 09-11-2024 Hepatitis C Antibody Comment Comment . [facility] Comment on above: Not infected with HC V unless early or acute infection issuspected (which may be delayed in an immunocompromisedindividual), or other evidence exists to indicate HCVinfection. Potassium measurementOrdered By: Francesco Lui on 09-11-2024 Potassium [Moles/Vol] 4.0 mmol/L 3.5-5.1 [facility] Protein Fractions Immunofixa tion Emanuel [Interp]Ordered By: Francesco Lui on 09-11-2024 M-Mychal (AYDEN) Not Observed g/dL Not Observed [facility] Prothrombin Time w/INRon INR Coag (PPP) [Relative time] 0.9 {INR} Normal [facility] Comment on above: Performed By: #### L 3100.3425, L3100.5450, L500.4100, L500.4050, L3890.6005, L3300.0100, L503.6030, L3000.0375, L503.6550, L501.5101, L3400.0700, L501.4700, L3100.5020, L300.3900, L3890.6200, L501.6710, L506.1000, L501.9520 ####[facility] [address] [place], [place], [id number] PT Coag (PPP) [Time] 12.3 s Normal 11.7-14.9 [facility] Comment on above: Performed By: #### L 3100.3425, L3100.5450, L500.4100, L500.4050, L3890.6005, L3300.0100, L503.6030, L3000.0375, L503.6550, L501.5101, L3400.0700, L501.4700, L3100.5020, L300.3900, L3890.6200, L501.6710, L506.1000, L501.9520 ####[facility] [address] [place], [address] Prothrombin timeOrdered By: Francesco Lui on 09-11-2024 PT Coag (PPP) [Time] 12.3 s 11.7-14.9 [facility] RN BONE MARROW TRANSPLANT abOrdered By: Francesco Acharya and on 09-11-2024 RN BONE MARROW TRANSPLANT Antibody Not Reportable [facility] SCL-70 extractable nuclear A b Qn (S)Ordered By: Francesco Lui on 09-11-2024 Scl-70 (Scleroderma) Antibody Not Reportable [facility] SS-A IgG antibody assayOrder ed By: Francesco Lui on 09-11-2024 SS-A/Ro IgG Antibody Not Reportable [facility] SS-B IgG antibody assayOrder ed By: Francesco Lui on 09-11-2024 SS-B/La IgG Antibody Not Reportable [facility] Serum albumin/globulin ratio Ordered By: Francecso Lui on 09-11-2024 Albumin/Globulin (AYDEN) 1.1 0.7-1.7 [facility] Serum anion gap measurementO rdered By: Francesco Lui on 09-11-2024 Anion gap [Moles/Vol] 7 mmol/L 5-15 [facility] Serum globulin measurement ( mass/volume)Ordered By: Francesco Lui on 09-11-2024 Globulin (S) [Mass/Vol] 3.2 g/dL 2.2-3.9 [facility] Serum or plasma alanine mays otransferase (ALT) measurementOrdered By: Francesco Lui on 09-11-2024 ALT [Catalytic activity/Vol] 70 U/L High 16-61 [facility] Serum or plasma albumin marquise urement (mass/volume)Ordered By: Francesco Lui on 09-11-2024 Albumin [Mass/Vol] 3.2 g/dL 3.2-5.0 [facility] Serum or plasma alkaline daniel sphatase measurementOrdered By: Francesco Lui on 09-11-2024 ALP [Catalytic activity/Vol] 155 U/L High 45-117 [facility] Serum or plasma calcium marquise urement (mass/volume)Ordered By: Francesco Lui on 09-11-2024 Calcium [Mass/Vol] 9.9 mg/dL 8.5-10.1 [facility] Serum or plasma cholesterol measurement (mass/volume)Ordered By: Francesco Lui on 09-11-2024 Cholesterol [Mass/Vol] 215 mg/dL High <200 [facility] Comment on above: Moderate Icterus, Re sult may be falsely decreased. <200 mg/dL Desirable 200-240 mg/dL Borderline >240 mg/dL High Risk Serum or plasma creatinine m easurement (mass/volume)Ordered By: Francesco Lui on 09-11-2024 Creatinine [Mass/Vol] 1.22 mg/dL 0.70-1.30 [facility] Comment on above: Moderate Icterus, Re sult may be falsely decreased.The validity of the calculated GFR & GFRAA in patients over 70 years has not been determined. Clinical correlation is essential. Serum or plasma protein marquise urement (mass/volume)Ordered By: Francesco Lui on 09-11-2024 Protein [Mass/Vol] 6.5 g/dL 6.0-8.5 [facility] Serum or plasma urea nitroge n measurement (mass/volume)Ordered By: Francesco Lui on 09-11-2024 Urea nitrogen [Mass/Vol] 17 mg/dL 7-18 [facility] Batista antibody assayOrdered By: Francesco Lui on 09-11-2024 SM Antibody Not Reportable [facility] Sodium levelOrdered By: Frederick Lui on 09-11-2024 Sodium [Moles/Vol] 137 mmol/L 136-145 [facility] TIBCOrdered By: Francesco love on 09-11-2024 Total Iron Binding Capacity 378 ug/dL 250-450 [facility] TSH QnOrdered By: Francesco Acharya and on 09-11-2024 Thyroid Stimulating Hormone (TSH) 0.918 uIU/mL 0.358-3.740 [facility] Thyroid Stim Hormone (TSH)on 09-11-2024 TSH 0.918 uIU/mL Normal 0.358-3.740 [facility] Comment on above: Performed By: #### L 3100.3425, L3100.5450, L500.4100, L500.4050, L3890.6005, L3300.0100, L503.6030, L3000.0375, L503.6550, L501.5101, L3400.0700, L501.4700, L3100.5020, L300.3900, L3890.6200, L501.6710, L506.1000, L501.9520 ####[facility] [address] [place], [address] Total proteinOrdered By: Mendoza Lui on 09-11-2024 Protein [Mass/Vol] 7.0 g/dL 6.4-8.2 [facility] Comment on above: Moderate Icterus, Re sult may be falsely decreased. Triglycerides measurementOrd ered By: Francesco Lui on 09-11-2024 Triglyceride [Mass/Vol] 345 mg/dL High <199 [facility] Comment on above: The drugs N-Acetylcy [...] 09-11-2024 VLDL Cholesterol 69 mg/dL High 5-40 [facility] QUIQUE Comprehensive Panelon QUIQUE TABLE Comment Normal . [facility] Comment on above: Result Comment: Auto antibody Disease Association ------- Condition Frequency ---------Antinuclear Antibody, SLE, mixed connectiveDirect (QUIQUE-D) tissue diseases ---------dsDNA SLE 40 - 60% ---------Chromatin Drug induced SLE 90% SLE 48 - 97% ---------SSA (Ro) SLE 25 - 35% Sjogren's Syndrome 40 - 70% Lupus 100% ---------SSB (La) SLE 10% Sjogren's Syndrome 30% ---------Sm (anti-Batista) SLE 15 - 30% ---------RN BONE MARROW TRANSPLANT Mixed Connective Tissue Disease 95%(U1 nRNP, SLE 30 - 50%anti-ribonucleoprotein) Polymyositis and/or Dermatomyositis 20% ---------Scl-70 (antiDNA Scleroderma (diffuse) 20 - 35%topoisomerase) Crest 13% ---------Tessa-1 Polymyositis and/or Dermatomyositis 20 - 40% ---------Centromere B Scleroderma - Crest variant 80%Performed at: [facility] [address] [place], [place] [id number] Director: Raj Dick PhD, Phone: [phone] Performed By: #### L 3100.5440, L3100.5020 ####[facility] [address] [place], [address] ANTI-CENT B AB <0.2 Normal 0.0-0.9 [facility] Comment on above: Performed By: #### L 3100.5440, L3100.5020 ####[facility] [address] [place], [address] ANTI-DNA (DS)AB <1 Normal 0-9 [facility] Comment on above: Result Comment: Nega tive <5 Equivocal 5 - 9 Positive >9 Performed By: #### L 3100.5440, L3100.5020 ####[facility] [address] [place], [address] ANTI-TESSA-1 <0.2 Normal 0.0-0.9 [facility] Comment on above: Performed By: #### L 3100.5440, L3100.5020 ####[facility] [address] [place], [address] ANTI-SS-A < 0.2 Normal 0.0-0.9 [facility] Comment on above: Performed By: #### L 3100.5440, L3100.5020 ####[facility] [address] [place], [address] ANTI-SS-B < 0.2 Normal 0.0-0.9 [facility] Comment on above: Performed By: #### L 3100.5440, L3100.5020 ####[facility] [address] [place], [address] ANTICHROMATIN <0.2 Normal 0.0-0.9 [facility] Comment on above: Performed By: #### L 3100.5440, L3100.5020 ####[facility] [address] [place], [address] ANTISCLERODERM <0.2 Normal 0.0-0.9 [facility] Comment on above: Performed By: #### L 3100.5440, L3100.5020 ####[facility] [address] [place], [address] RN BONE MARROW TRANSPLANT Ab <0.2 Normal 0.0-0.9 [facility] Comment on above: Performed By: #### L 3100.5440, L3100.5020 ####[facility] [address] [place], [address] BATISTA Ab <0.2 Normal 0.0-0.9 [facility] Comment on above: Performed By: #### L 3100.5440, L3100.5020 ####[facility] [address] [place], [address] Carbohydrate AG 19-9on 09-08 CA 19-9 139 U/mL High 0-35 [facility] Comment on above: Result Comment: [facility] [employer] Electrochemiluminescence Immunoassay(ECLIA)Values obtained with different assay methods or kits cannotbe used interchangeably. Results cannot be interpreted asabsolute evidence of the presence or absence of malignantdisease.Performed at: [address] [id number] Director: Raj Dick PhD, Phone: [phone] Performed By: #### L 3100.5440, L3100.5020 ####[facility] [address] [place], [address] ERCP Reporton 09-08-2024 ERCP Report Normal [facility] Albumin to globulin ratioOrd ered By: Cruz Arciniega on 09-07-2024 Albumin/Globulin [Mass ratio] 0.8 {ratio} Low 0.9-2.4 [facility] Bilirubin, totalOrdered By: Cruz Arciniega on 09-07-2024 Bilirubin [Mass/Vol] 16.70 mg/dL High 0.20-1.00 [facility] Comment on above: Critical Result(s) C alled at: 06:50:04 09/07/2024 by: Leesa Goodman to [facility]. Results read back by same. For patients on eltrombopag therapy, use of Dimension Sullivan TBIL is not recommended. Blood urea nitrogen (BUN)/cr eatinine ratioOrdered By: Cruz Arciniega on 09-07-2024 Urea nitrogen/Creatinine [Mass ratio] 16.8 mg/mg 10-20 [facility] Carbon dioxide measurementOr dered By: Cruz Arciniega on 09-07-2024 CO2 [Moles/Vol] 26.0 mmol/L 21.0-32.0 [facility] Chloride measurementOrdered By: Cruz Arciniega on 09-07-2024 Chloride [Moles/Vol] 106 mmol/L 98-107 [facility] Comprehensive Metabolic Prof ilon 09-07-2024 Albumin [Mass/Vol] 2.6 g/dL Low 3.2-5.0 [facility] Comment on above: Performed By: #### L 500.4050 ####[facility] [address] [place], [place], [id number] Albumin/Globulin [Mass ratio] 0.8 {ratio} Low 0.9-2.4 [facility] Comment on above: Performed By: #### L 500.4050 ####[facility] [address] [place], [address] ALK P 150 U/L High 45-117 [facility] Comment on above: Performed By: #### L 500.4050 ####[facility] [address] [place], [address] ALT [Catalytic activity/Vol] 50 U/L Normal 16-61 [facility] Comment on above: Performed By: #### L 500.4050 ####[facility] [address] [place], [address] AST [Catalytic activity/Vol] 47 U/L High 15-37 [facility] Comment on above: Performed By: #### L 500.4050 ####[facility] [address] [place], [address] Bilirubin [Mass/Vol] 16.70 mg/dL Invalid Interpretation Code 0.20-1.00 [facility] Comment on above: Result Comment: Crit ical Result(s) Called at: 06:50:04 09/07/2024 by:Leesa Goodman to [facility]. Results read back by same. For patients on eltrombopag therapy, use of Dimension Sullivan TBIL is not recommended. Performed By: #### L 500.4050 ####[facility] [address] [place], [address] BUN/CRE 16.8 RATIO Normal 10-20 [facility] Comment on above: Performed By: #### L 500.4050 ####[facility] [address] [place], [address] CA,Total 9.4 mg/dL Normal 8.5-10.1 [facility] Comment on above: Performed By: #### L 500.4050 ####[facility] [address] [place], [address] Chloride [Moles/Vol] 106 mmol/L Normal 98-107 [facility] Comment on above: Performed By: #### L 500.4050 ####[facility] [address] [place], [address] CO2 [Moles/Vol] 26.0 mmol/L Normal 21.0-32.0 [facility] Comment on above: Performed By: #### L 500.4050 ####[facility] [address] [place], [address] Creatinine [Mass/Vol] 1.19 mg/dL Normal 0.70-1.30 [facility] Comment on above: Result Comment: Mode rate Icterus, Result may be falsely decreased.The validity of the calculated GFR GFRAA in patients over70 years has not been determined. Clinical correlation isessential. Performed By: #### L 500.4050 ####[facility] [address] [place], [address] ECRCL 93.41 ml/min Normal [facility] Comment on above: Performed By: #### L 500.4050 ####[facility] [address] [place], [address] EST GFR - AA 87 mL/min Normal >60 [facility] Comment on above: Result Comment: Afri can Yemeni GFR Calc Performed By: #### L 500.4050 ####[facility] [address] [place], [address] GAP 6 Normal 5-15 [facility] Comment on above: Performed By: #### L 500.4050 ####[facility] [address] [place], [address] GFR/1.73 sq M.predicted among non-blacks MDRD (S/P/Bld) [Vol rate/Area] 72 mL/min/{1.73_m2} Normal >60 [facility] Comment on above: Result Comment: Non- GFR Calc Performed By: #### L 500.4050 ####[facility] [address] [place], [address] Globulin (S) [Mass/Vol] 3.4 g/dL Normal 2.2-4.2 [facility] Comment on above: Performed By: #### L 500.4050 ####[facility] [address] [place], [address] Glucose [Mass/Vol] 100 mg/dL Normal 74-106 [facility] Comment on above: Result Comment: Fast ing Glucose result from 100 to 125 mg/dLsuggests IMPAIRED HOMEOSTASIS per A.D.A. criteria. Performed By: #### L 500.4050 ####[facility] [address] [place], [address] Potassium [Moles/Vol] 3.8 mmol/L Normal 3.5-5.1 [facility] Comment on above: Performed By: #### L 500.4050 ####[facility] [address] [place], [address] Sodium [Moles/Vol] 138 mmol/L Normal 136-145 [facility] Comment on above: Performed By: #### L 500.4050 ####[facility] [address] [place], [address] T PROT 6.0 g/dL Low 6.4-8.2 [facility] Comment on above: Result Comment: Mode rate Icterus, Result may be falsely decreased. Performed By: #### L 500.4050 ####[facility] [address] [place], [address] Urea nitrogen [Mass/Vol] 20 mg/dL High 7-18 [facility] Comment on above: Performed By: #### L 500.4050 ####[facility] [address] [place], [address] Estimated glomerular filtrat ion rate (GFR) AmericanOrdered By: Cruz Arciniega on 09-07-2024 Estimated GFR (MDRD) Amer 87 mL/min >60 [facility] Comment on above: GFR Calc Estimation of creatinine alyson aranceOrdered By: Cruz Arciniega on 09-07-2024 Estimated Creatinine Clearance Calc 93.41 ml/min [facility] Glomerular filtration rate ( GFR) estimationOrdered By: Cruz Arciniega on 09-07-2024 Estimated GFR (MDRD) Non-Af Amer 72 mL/min >60 [facility] Comment on above: Non- GFR Calc Glucose measurementOrdered B y: Cruz Arciniega on 09-07-2024 Glucose [Mass/Vol] 100 mg/dL 74-106 [facility] Comment on above: Fasting Glucose resu lt from 100 to 125 mg/dL suggests IMPAIRED HOMEOSTASIS per A.D.A. criteria. Laboratory - Chemistry and C hemistry - challengeOrdered By: Cruz Arciniega on 09-07-2024 AST [Catalytic activity/Vol] 47 U/L High 15-37 [facility] MR/PN.GIon 09-07-2024 MR/PN.GI Normal [facility] Potassium measurementOrdered By: Cruz Arciniega on 09-07-2024 Potassium [Moles/Vol] 3.8 mmol/L 3.5-5.1 [facility] Serum anion gap measurementO rdered By: Cruz Arciniega on 09-07-2024 Anion gap [Moles/Vol] 6 mmol/L 5-15 [facility] Serum globulin measurementOr dered By: Cruz Arciniega on 09-07-2024 Globulin (S) [Mass/Vol] 3.4 g/dL 2.2-4.2 [facility] Serum or plasma alanine mays otransferase (ALT) measurementOrdered By: Cruz Arciniega on 09-07-2024 ALT [Catalytic activity/Vol] 50 U/L 16-61 [facility] Serum or plasma albumin marquise urement (mass/volume)Ordered By: Cruz Arciniega on 09-07-2024 Albumin [Mass/Vol] 2.6 g/dL Low 3.2-5.0 [facility] Serum or plasma alkaline daniel sphatase measurementOrdered By: Cruz Arciniega on 09-07-2024 ALP [Catalytic activity/Vol] 150 U/L High 45-117 [facility] Serum or plasma calcium marquise urement (mass/volume)Ordered By: Cruz Arciniega on 09-07-2024 Calcium [Mass/Vol] 9.4 mg/dL 8.5-10.1 [facility] Serum or plasma creatinine m easurement (mass/volume)Ordered By: Cruz Arciniega on 09-07-2024 Creatinine [Mass/Vol] 1.19 mg/dL 0.70-1.30 [facility] Comment on above: Moderate Icterus, Re sult may be falsely decreased.The validity of the calculated GFR & GFRAA in patients over 70 years has not been determined. Clinical correlation is essential. Serum or plasma urea nitroge n measurement (mass/volume)Ordered By: Cruz Arciniega on 09-07-2024 Urea nitrogen [Mass/Vol] 20 mg/dL High 7-18 [facility] Sodium levelOrdered By: Truman mcfarlandel Arciniega on 09-07-2024 Sodium [Moles/Vol] 138 mmol/L 136-145 [facility] Total proteinOrdered By: Dionne Arciniega on 09-07-2024 Protein [Mass/Vol] 6.0 g/dL Low 6.4-8.2 [facility] Comment on above: Moderate Icterus, Re sult may be falsely decreased. Alpha fetoprotein measuremen t as tumor markerOrdered By: Denys Babin on 09-06-2024 Tumor Marker Alpha Fetoprotein 3.2 ng/mL 0.0-6.9 [facility] Comment on above: [facility] [...] not interpretable in females. TESTING PERFORMED AT [facility]. ORIGINAL REPORT ON FILE IN LAB CONTAINS ADDITIONAL TEST SITE INFORMATION. Atypical perinuclear antineu trophil cytoplasmic antibodies measurementOrdered By: Denys Babin on 09-06-2024 Atypical p-ANCA <1:20 titer Neg:<1:20 [facility] Comment on above: Note: Specimen is ic teric.The atypical pANCA pattern has been observed in asignificant percentage of patients with ulcerative colitis,primary sclerosing cholangitis and autoimmune hepatitis. CA 19-9 agOrdered By: Andrade Babin on 09-06-2024 CA 19-9 Antigen 139 U/mL High 0-35 [facility] Comment on above: [facility] El ectrochemiluminescence Immunoassay(ECLIA)Values obtained with different assay methods or kits cannotbe used interchangeably. Results cannot be interpreted asabsolute evidence of the presence or absence of malignantdisease.Performed at: [facility] [address] [id number] Director: Raj Dick PhD, Phone: [phone] CBC-Complete Blood Cnt No Di ffon 09-06-2024 Erythrocyte distribution width (RBC) [Ratio] 17.0 % High 11.6-14.6 [facility] Comment on above: Performed By: #### L 100.0500 ####[facility] [address] [place], [place], [id number](044) Hematocrit (Bld) [Volume fraction] 38.6 % Low 40-54 [facility] Comment on above: Performed By: #### L 100.0500 ####[facility] [address] [place], [place], [id number]) Hemoglobin (Bld) [Mass/Vol] 13.2 g/dL Normal 13.0-16.5 [facility] Comment on above: Performed By: #### L 100.0500 ####[facility] [address] [place], [address] MCH (RBC) [Entitic mass] 30.3 pg Normal 27.0-32.0 [facility] Comment on above: Performed By: #### L 100.0500 ####[facility] [address] [place], [address] MCHC (RBC) [Mass/Vol] 34.2 g/dL Normal 32-36 [facility] Comment on above: Performed By: #### L 100.0500 ####[facility] [address] [place], [address] MCV (RBC) [Entitic vol] 88.7 fL Normal 80-94 [facility] Comment on above: Performed By: #### L 100.0500 ####[facility] [address] [place], [address] Platelet mean volume (Bld) [Entitic vol] 9.5 fL Normal 6.2-12.0 [facility] Comment on above: Performed By: #### L 100.0500 ####[facility] [address] [place], [address] Platelets (Bld) [#/Vol] 291 10*3/uL Normal 150-450 [facility] Comment on above: Performed By: #### L 100.0500 ####[facility] [address] [place], [address] RBC (Bld) [#/Vol] 4.35 10*6/uL Low 4.6-6.2 [facility] Comment on above: Performed By: #### L 100.0500 ####[facility] [address] [place], [address] RDW SD 54.9 fl High 35.1-43.9 [facility] Comment on above: Performed By: #### L 100.0500 ####[facility] [address] [place], [address] WBC (Bld) [#/Vol] 6.8 10*3/uL Normal 4.4-11.0 [facility] Comment on above: Performed By: #### L 100.0500 ####[facility] [address] [place], [address] Centromere B antibody assayO rdered By: Denys Babin on 09-06-2024 Centromere B Antibody <0.2 AI 0.0-0.9 [facility] Chromatin antibody assayOrde red By: Denys Babin on 09-06-2024 Antichromatin Antibodies <0.2 AI 0.0-0.9 [facility] Comprehensive Metabolic Prof ilon 09-06-2024 Albumin [Mass/Vol] 2.8 g/dL Low 3.2-5.0 [facility] Comment on above: Performed By: #### L 500.4050, L501.5200, L501.2300 ####[facility] [address] [place], [address] Albumin/Globulin [Mass ratio] 0.8 {ratio} Low 0.9-2.4 [facility] Comment on above: Performed By: #### L 500.4050, L501.5200, L501.2300 ####[facility] [address] [place], [address] ALK P 165 U/L High 45-117 [facility] Comment on above: Performed By: #### L 500.4050, L501.5200, L501.2300 ####[facility] [address] [place], [address] ALT [Catalytic activity/Vol] 63 U/L High 16-61 [facility] Comment on above: Performed By: #### L 500.4050, L501.5200, L501.2300 ####[facility] [address] [place], [address] AST [Catalytic activity/Vol] 58 U/L High 15-37 [facility] Comment on above: Performed By: #### L 500.4050, L501.5200, L501.2300 ####[facility] [address] [place], [address] Bilirubin [Mass/Vol] 20.10 mg/dL Invalid Interpretation Code 0.20-1.00 [facility] Comment on above: Result Comment: Crit ical Result(s) Called at: 08:20:54 09/06/2024 by: CRISTIANO to Diana Brewster. Results read back by same. For patients on eltrombopag therapy, use of Dimension Sullivan TBIL is not recommended. Performed By: #### L 500.4050, L501.5200, L501.2300 ####[facility] [address] [place], [address] BUN/CRE 11.9 RATIO Normal 10-20 [facility] Comment on above: Performed By: #### L 500.4050, L501.5200, L501.2300 ####[facility] [address] [place], [address] CA,Total 9.1 mg/dL Normal 8.5-10.1 [facility] Comment on above: Performed By: #### L 500.4050, L501.5200, L501.2300 ####[facility] [address] [place], [address] Chloride [Moles/Vol] 106 mmol/L Normal 98-107 [facility] Comment on above: Performed By: #### L 500.4050, L501.5200, L501.2300 ####[facility] [address] [place], [address] CO2 [Moles/Vol] 27.0 mmol/L Normal 21.0-32.0 [facility] Comment on above: Performed By: #### L 500.4050, L501.5200, L501.2300 ####[facility] [address] [place], [address] Creatinine [Mass/Vol] 1.18 mg/dL Normal 0.70-1.30 [facility] Comment on above: Result Comment: Mode rate Icterus, Result may be falsely decreased.The validity of the calculated GFR GFRAA in patients over70 years has not been determined. Clinical correlation isessential. Performed By: #### L 500.4050, L501.5200, L501.2300 ####[facility] [address] [place], [address] ECRCL 94.20 ml/min Normal [facility] Comment on above: Performed By: #### L 500.4050, L501.5200, L501.2300 ####[facility] [address] [place], [address] EST GFR - AA 88 mL/min Normal >60 [facility] Comment on above: Result Comment: Afri can Yemeni GFR Calc Performed By: #### L 500.4050, L501.5200, L501.2300 ####[facility] [address] [place], [address] GAP 6 Normal 5-15 [facility] Comment on above: Performed By: #### L 500.4050, L501.5200, L501.2300 ####[facility] [address] [place], [address] GFR/1.73 sq M.predicted among non-blacks MDRD (S/P/Bld) [Vol rate/Area] 72 mL/min/{1.73_m2} Normal >60 [facility] Comment on above: Result Comment: Non- GFR Calc Performed By: #### L 500.4050, L501.5200, L501.2300 ####[facility] [address] [place], [address] Globulin (S) [Mass/Vol] 3.3 g/dL Normal 2.2-4.2 [facility] Comment on above: Performed By: #### L 500.4050, L501.5200, L501.2300 ####[facility] [address] [place], [address] Glucose [Mass/Vol] 112 mg/dL High 74-106 [facility] Comment on above: Result Comment: Fast ing Glucose result from 100 to 125 mg/dLsuggests IMPAIRED HOMEOSTASIS per A.D.A. criteria. Performed By: #### L 500.4050, L501.5200, L501.2300 ####[facility] [address] [place], [address] Potassium [Moles/Vol] 4.1 mmol/L Normal 3.5-5.1 [facility] Comment on above: Performed By: #### L 500.4050, L501.5200, L501.2300 ####[facility] [address] [place], [address] Sodium [Moles/Vol] 140 mmol/L Normal 136-145 [facility] Comment on above: Performed By: #### L 500.4050, L501.5200, L501.2300 ####[facility] [address] [place], [address] T PROT 6.1 g/dL Low 6.4-8.2 [facility] Comment on above: Result Comment: Mode rate Icterus, Result may be falsely decreased. Performed By: #### L 500.4050, L501.5200, L501.2300 ####[facility] [address] [place], [address] Urea nitrogen [Mass/Vol] 14 mg/dL Normal 7-18 [facility] Comment on above: Performed By: #### L 500.4050, L501.5200, L501.2300 ####[facility] [address] [place], [address] DNA double strand Ab Qn (S)O rdered By: Denys Babin on 09-06-2024 Anti-Double Strand DNA Antibody <1 IU/mL 0-9 [facility] Comment on above: Negative <5 Equivoca l 5 - 9 Positive >9 Erythrocyte distribution wid th ratioOrdered By: Cruz Arciniega on 09-06-2024 Erythrocyte distribution width (RBC) [Ratio] 17.0 % High 11.6-14.6 [facility] Erythrocyte distribution wid th standard deviationOrdered By: Cruz Arciniega on 09-06-2024 Erythrocyte distribution width (RBC) [Entitic vol] 54.9 fL High 35.1-43.9 [facility] Hematocrit Auto (Bld) [Volum e fraction]Ordered By: Cruz Arciniega on 09-06-2024 Hematocrit (Bld) [Volume fraction] 38.6 % Low 40-54 [facility] Hemoglobin measurementOrdere d By: Cruz Arciniega on 09-06-2024 Hemoglobin (Bld) [Mass/Vol] 13.2 g/dL 13.0-16.5 [facility] IgA [Mass/Vol]Ordered By: Ra parrish Babin on 09-06-2024 Immunoglobulin A 140 mg/dL 90-386 [facility] IgEOrdered By: Denys love on 09-06-2024 Immunoglobulin E 40 IU/mL 6-495 [facility] IgG [Mass/Vol]Ordered By: Ra parrish Babin on 09-06-2024 Immunoglobulin G See comment [facility] Comment on above: TEST RESULTS LIMITSI mmunoglobulins A/E/G/M, Serum Immunoglobulin E, Total 40 IU/mL 6-495 TESTING PERFORMED AT [facility]. ORIGINAL REPORT ON FILE IN LAB CONTAINS ADDITIONAL TEST SITE INFORMATION. Immunoglobulin G Total 888 mg/dL 603-1613 [facility] Comment on above: TEST RESULTS LIMITSI gG, Subclasses(1-4) IgG, Subclass 1 386 mg/dL 248-810 IgG, Subclass 2 276 mg/dL 130-555 IgG, Subclass 3 40 mg/dL 15-102 IgG, Subclass 4 89 mg/dL 2-96 TESTING PERFORMED AT [facility]. ORIGINAL REPORT ON FILE IN LAB CONTAINS ADDITIONAL TEST SITE INFORMATION. Previous reported result: mg/dLEdited by: MODESTA on 09/14/24:921 AMENDED REPORT 09/14/24921 IGG, QUANT previously reported as: TEST RESULTS LIMITSIgG, Subclasses(1-4) IgG, Subclass 1 386 mg/dL 248-810 IgG, Subclass 2 276 mg/dL 130-555 IgG, Subclass 3 40 mg/dL 15-102 IgG, Subclass 4 89 mg/dL 2-96 TESTING PERFORMED AT [facility]. ORIGINAL REPORT ON FILE IN LAB CONTAINS ADDITIONAL TEST SITE INFORMATION. IgG subclass 1 (S) [Mass/Vol ]Ordered By: Denys Babin on 09-06-2024 Immunoglobulin G1 386 mg/dL 248-810 [facility] IgG subclass 2 (S) [Mass/Vol ]Ordered By: Denys Babin on 09-06-2024 Immunoglobulin G2 276 mg/dL 130-555 [facility] IgG subclass 3 (S) [Mass/Vol ]Ordered By: Denys Babin on 09-06-2024 Immunoglobulin G3 40 mg/dL 15-102 [facility] Immunoglobulin G4 measuremen tOrdered By: Denys Babin on 09-06-2024 Immunoglobulin G4 89 mg/dL 2-96 [facility] Immunoglobulin M measurement Ordered By: Denys Babin on 09-06-2024 Immunoglobulin M 42 mg/dL 20-172 [facility] Tessa-1 antibody assayOrdered B y: Denys Babin on 09-06-2024 TESSA-1 Antibody <0.2 AI 0.0-0.9 [facility] MCV (mean corpuscular volume ) determinationOrdered By: Cruz Arciniega on 09-06-2024 MCV (RBC) [Entitic vol] 88.7 fL 80-94 [facility] MRCP Abdomen without Contras ton 09-06-2024 MRCP Abdomen without Contrast Normal [facility] Magnesiumon 09-06-2024 Magnesium [Mass/Vol] 2.1 mg/dL Normal 1.6-2.6 [facility] Comment on above: Performed By: #### L 500.4050, L501.5200, L501.2300 ####[facility] [address] [place], [place], [id number] Magnesium measurementOrdered By: Seth Stein on 09-06-2024 Magnesium [Mass/Vol] 2.1 mg/dL 1.6-2.6 [facility] Mean corpuscular hemoglobin (MCH) determinationOrdered By: Cruz Arciniega on 09-06-2024 MCH (RBC) [Entitic mass] 30.3 pg 27.0-32.0 [facility] Mean corpuscular hemoglobin concentration (MCHC) determinationOrdered By: Cruz Arciniega on 09-06-2024 MCHC (RBC) [Mass/Vol] 34.2 g/dL 32-36 [facility] Mean platelet volume determi nationOrdered By: Cruz Arciniega on 09-06-2024 Platelet mean volume (Bld) [Entitic vol] 9.5 fL 6.2-12.0 [facility] Neutrophil cytoplasmic Ab.cl assic Qn (S)Ordered By: Denys Babin on 09-06-2024 Cytoplasmic ANCA (c-ANCA) Antibody <1:20 titer Neg:<1:20 [facility] Comment on above: Note: Specimen is [...] up testing of positive sera with both LA-3 and MPO-ANCA enzyme immunoassays. As many as [...] Perinuclear ANCA (p-ANCA) Antibody <1:20 titer Neg:<1:20 [facility] Comment on above: Note: Specimen is ic teric.The presence of positive fluorescence exhibiting P-ANCA orC-ANCA patterns alone is not specific for the diagnosis ofWegener's Granulomatosis (WG) or microscopic polyangiitis.Decisions about treatment should not be based solely onANCA IFA results. The [employer] ANCA Group Consensusrecommends follow up testing of positive sera with both LA-3 and MPO-ANCA enzyme immunoassays. As many as 5% serumsamples are positive only by EIA. Ref. AM J Clin Xokhdd7744;111:507-513. Phosphoruson 09-06-2024 Phosphate [Mass/Vol] 3.2 mg/dL Normal 2.5-4.9 [facility] Comment on above: Performed By: #### L 500.4050, L501.5200, L501.2300 ####[facility] [address] [place], [address] Phosphorus measurementOrdere d By: Seth Stein on 09-06-2024 Phosphorus Level 3.2 mg/dL 2.5-4.9 [facility] Platelet countOrdered By: Zaire Arciniega on 09-06-2024 Platelets (Bld) [#/Vol] 291 10*3/uL 150-450 [facility] RBC Auto (Bld) [#/Vol]Ordere d By: Cruz Arciniega on 09-06-2024 RBC (Bld) [#/Vol] 4.35 10*6/uL Low 4.6-6.2 [facility] RN BONE MARROW TRANSPLANT abOrdered By: Denys Mercado iend on 09-06-2024 RN BONE MARROW TRANSPLANT Antibody <0.2 AI 0.0-0.9 [facility] SCL-70 extractable nuclear A b Qn (S)Ordered By: Denys Babin on 09-06-2024 Scl-70 (Scleroderma) Antibody <0.2 AI 0.0-0.9 [facility] SS-A IgG antibody assayOrder ed By: Denys Babin on 09-06-2024 SS-A/Ro IgG Antibody < 0.2 AI 0.0-0.9 [facility] SS-B IgG antibody assayOrder ed By: Denys Babin on 09-06-2024 SS-B/La IgG Antibody < 0.2 AI 0.0-0.9 [facility] Batista antibody assayOrdered By: Denys Babin on 09-06-2024 SM Antibody <0.2 AI 0.0-0.9 [facility] White blood cell (WBC) count Ordered By: Cruz Arciniega on 09-06-2024 WBC (Bld) [#/Vol] 6.8 10*3/uL 4.4-11.0 [facility] 12 Lead EKGon 09-05-2024 12 Lead EKG Normal [facility] Absolute neutrophil countOrd ered By: Denys Babin on 09-05-2024 Neutrophils (Bld) [#/Vol] 7.0 10*3/uL 2.0-7.7 [facility] Basophil percentageOrdered B y: Denys Olaf on 09-05-2024 Basophils/100 WBC (Bld) 0.7 % 0-1 [facility] CBC W/Diff, Automatedon Absolute Lymph 0.63 X10 3/uL Low 0.83-4.51 [facility] Comment on above: Performed By: #### L 100.0100, L300.3900, L500.4050 ####[facility] [address] [place], [address] Absolute Neut 7.0 X10 3/uL Normal 2.0-7.7 [facility] Comment on above: Performed By: #### L 100.0100, L300.3900, L500.4050 ####[facility] [address] [place], [address] Basophils/100 WBC (Bld) 0.7 % Normal 0-1 [facility] Comment on above: Performed By: #### L 100.0100, L300.3900, L500.4050 ####[facility] [address] [place], [address] Eosinophils/100 WBC (Bld) 0.7 % Normal 0-5 [facility] Comment on above: Performed By: #### L 100.0100, L300.3900, L500.4050 ####[facility] [address] [place], [address] Erythrocyte distribution width (RBC) [Ratio] 16.8 % High 11.6-14.6 [facility] Comment on above: Performed By: #### L 100.0100, L300.3900, L500.4050 ####[facility] [address] [place], [address] Hematocrit (Bld) [Volume fraction] 39.7 % Low 40-54 [facility] Comment on above: Performed By: #### L 100.0100, L300.3900, L500.4050 ####[facility] [address] [place], [address] Hemoglobin (Bld) [Mass/Vol] 13.4 g/dL Normal 13.0-16.5 [facility] Comment on above: Performed By: #### L 100.0100, L300.3900, L500.4050 ####[facility] [address] [place], [address] IG% 0.700 Normal 0.0-0.9 [facility] Comment on above: Result Comment: IG% - Immature Granulocytes (promyelocytes, myelocytes andmetamyelocytes) > 1% indicates that a LEFT SHIFT is Present. Performed By: #### L 100.0100, L300.3900, L500.4050 ####[facility] [address] [place], [address] Lymphocytes/100 WBC (Bld) 7.6 % Low 19-41 [facility] Comment on above: Performed By: #### L 100.0100, L300.3900, L500.4050 ####[facility] [address] [place], [address] MCH (RBC) [Entitic mass] 30.0 pg Normal 27.0-32.0 [facility] Comment on above: Performed By: #### L 100.0100, L300.3900, L500.4050 ####[facility] [address] [place], [address] MCHC (RBC) [Mass/Vol] 33.8 g/dL Normal 32-36 [facility] Comment on above: Performed By: #### L 100.0100, L300.3900, L500.4050 ####[facility] [address] [place], [address] MCV (RBC) [Entitic vol] 89.0 fL Normal 80-94 [facility] Comment on above: Performed By: #### L 100.0100, L300.3900, L500.4050 ####[facility] [address] [place], [address] Monocytes/100 WBC (Bld) 5.9 % Normal 0-10 [facility] Comment on above: Performed By: #### L 100.0100, L300.3900, L500.4050 ####[facility] [address] [place], [address] Neutrophils/100 WBC (Bld) 84.4 % High 47-70 [facility] Comment on above: Performed By: #### L 100.0100, L300.3900, L500.4050 ####[facility] [address] [place], [address] Nucleated RBC (Bld) [#/Vol] 0 10*3/uL Normal 0-5 [facility] Comment on above: Performed By: #### L 100.0100, L300.3900, L500.4050 ####[facility] [address] [place], [address] Platelet mean volume (Bld) [Entitic vol] 9.5 fL Normal 6.2-12.0 [facility] Comment on above: Performed By: #### L 100.0100, L300.3900, L500.4050 ####[facility] [address] [place], [address] Platelets (Bld) [#/Vol] 322 10*3/uL Normal 150-450 [facility] Comment on above: Performed By: #### L 100.0100, L300.3900, L500.4050 ####[facility] [address] [place], [address] RBC (Bld) [#/Vol] 4.46 10*6/uL Low 4.6-6.2 [facility] Comment on above: Performed By: #### L 100.0100, L300.3900, L500.4050 ####[facility] [address] [place], [address] RDW SD 54.4 fl High 35.1-43.9 [facility] Comment on above: Performed By: #### L 100.0100, L300.3900, L500.4050 ####[facility] [address] [place], [address] WBC (Bld) [#/Vol] 8.3 10*3/uL Normal 4.4-11.0 [facility] Comment on above: Performed By: #### L 100.0100, L300.3900, L500.4050 ####[facility] [address] [place], [address] Absolute Lymph 0.94 X10 3/uL Normal 0.83-4.51 [facility] Comment on above: Performed By: #### L 501.5200, L500.4050, L501.2300, L100.0100 ####[facility] [address] [place], [address] Absolute Neut 2.0 X10 3/uL Normal 2.0-7.7 [facility] Comment on above: Performed By: #### L 501.5200, L500.4050, L501.2300, L100.0100 ####[facility] [address] [place], [address] Basophils/100 WBC (Bld) 1.4 % High 0-1 [facility] Comment on above: Performed By: #### L 501.5200, L500.4050, L501.2300, L100.0100 ####[facility] [address] [place], [address] Eosinophils/100 WBC (Bld) 3.3 % Normal 0-5 [facility] Comment on above: Performed By: #### L 501.5200, L500.4050, L501.2300, L100.0100 ####[facility] [address] [place], [address] Erythrocyte distribution width (RBC) [Ratio] 16.7 % High 11.6-14.6 [facility] Comment on above: Performed By: #### L 501.5200, L500.4050, L501.2300, L100.0100 ####[facility] [address] [place], [address] Hematocrit (Bld) [Volume fraction] 37.2 % Low 40-54 [facility] Comment on above: Performed By: #### L 501.5200, L500.4050, L501.2300, L100.0100 ####[facility] [address] [place], [address] Hemoglobin (Bld) [Mass/Vol] 12.3 g/dL Low 13.0-16.5 [facility] Comment on above: Performed By: #### L 501.5200, L500.4050, L501.2300, L100.0100 ####[facility] [address] [place], [address] IG% 1.400 High 0.0-0.9 [facility] Comment on above: Result Comment: IG% - Immature Granulocytes (promyelocytes, myelocytes andmetamyelocytes) > 1% indicates that a LEFT SHIFT is Present. Performed By: #### L 501.5200, L500.4050, L501.2300, L100.0100 ####[facility] [address] [place], [address] Lymphocytes/100 WBC (Bld) 25.8 % Normal 19-41 [facility] Comment on above: Performed By: #### L 501.5200, L500.4050, L501.2300, L100.0100 ####[facility] [address] [place], [address] MCH (RBC) [Entitic mass] 29.4 pg Normal 27.0-32.0 [facility] Comment on above: Performed By: #### L 501.5200, L500.4050, L501.2300, L100.0100 ####[facility] [address] [place], [address] MCHC (RBC) [Mass/Vol] 33.1 g/dL Normal 32-36 [facility] Comment on above: Performed By: #### L 501.5200, L500.4050, L501.2300, L100.0100 ####[facility] [address] [place], [address] MCV (RBC) [Entitic vol] 89.0 fL Normal 80-94 [facility] Comment on above: Performed By: #### L 501.5200, L500.4050, L501.2300, L100.0100 ####[facility] [address] [place], [address] Monocytes/100 WBC (Bld) 12.6 % High 0-10 [facility] Comment on above: Performed By: #### L 501.5200, L500.4050, L501.2300, L100.0100 ####[facility] [address] [place], [address] Neutrophils/100 WBC (Bld) 55.5 % Normal 47-70 [facility] Comment on above: Performed By: #### L 501.5200, L500.4050, L501.2300, L100.0100 ####[facility] [address] [place], [address] Nucleated RBC (Bld) [#/Vol] 0 10*3/uL Normal 0-5 [facility] Comment on above: Performed By: #### L 501.5200, L500.4050, L501.2300, L100.0100 ####[facility] [address] [place], [address] Platelet mean volume (Bld) [Entitic vol] 9.8 fL Normal 6.2-12.0 [facility] Comment on above: Performed By: #### L 501.5200, L500.4050, L501.2300, L100.0100 ####[facility] [address] [place], [address] Platelets (Bld) [#/Vol] 269 10*3/uL Normal 150-450 [facility] Comment on above: Performed By: #### L 501.5200, L500.4050, L501.2300, L100.0100 ####[facility] [address] [place], [address] RBC (Bld) [#/Vol] 4.18 10*6/uL Low 4.6-6.2 [facility] Comment on above: Performed By: #### L 501.5200, L500.4050, L501.2300, L100.0100 ####[facility] [address] [place], [address] RDW SD 54.4 fl High 35.1-43.9 [facility] Comment on above: Performed By: #### L 501.5200, L500.4050, L501.2300, L100.0100 ####[facility] [address] [place], [address] WBC (Bld) [#/Vol] 3.7 10*3/uL Low 4.4-11.0 [facility] Comment on above: Performed By: #### L 501.5200, L500.4050, L501.2300, L100.0100 ####[facility] [address] [place], [address] Comprehensive Metabolic Prof ilon 09-05-2024 Albumin [Mass/Vol] 3.1 g/dL Low 3.2-5.0 [facility] Comment on above: Performed By: #### L 100.0100, L300.3900, L500.4050 ####[facility] [address] [place], [address] Albumin/Globulin [Mass ratio] 1.0 {ratio} Normal 0.9-2.4 [facility] Comment on above: Performed By: #### L 100.0100, L300.3900, L500.4050 ####[facility] [address] [place], [address] ALK P 183 U/L High 45-117 [facility] Comment on above: Performed By: #### L 100.0100, L300.3900, L500.4050 ####[facility] [address] [place], [address] ALT [Catalytic activity/Vol] 71 U/L High 16-61 [facility] Comment on above: Performed By: #### L 100.0100, L300.3900, L500.4050 ####[facility] [address] [place], [address] AST [Catalytic activity/Vol] 72 U/L High 15-37 [facility] Comment on above: Result Comment: Slig ht Hemolysis, Result may be falsely increased. Performed By: #### L 100.0100, L300.3900, L500.4050 ####[facility] [address] [place], [address] Bilirubin [Mass/Vol] 22.10 mg/dL Invalid Interpretation Code 0.20-1.00 [facility] Comment on above: Result Comment: Crit ical Result(s) Called at: 16:27:09 09/05/2024 by: VU TO DIANA BREWSTER. Results read back by same. For patients on eltrombopag therapy, use of Dimension Sullivan TBIL is not recommended. Performed By: #### L 100.0100, L300.3900, L500.4050 ####[facility] [address] [place], [address] BUN/CRE 8.8 RATIO Low 10-20 [facility] Comment on above: Performed By: #### L 100.0100, L300.3900, L500.4050 ####[facility] [address] [place], [address] CA,Total 9.3 mg/dL Normal 8.5-10.1 [facility] Comment on above: Performed By: #### L 100.0100, L300.3900, L500.4050 ####[facility] [address] [place], [address] Chloride [Moles/Vol] 107 mmol/L Normal 98-107 [facility] Comment on above: Performed By: #### L 100.0100, L300.3900, L500.4050 ####[facility] [address] [place], [address] CO2 [Moles/Vol] 24.0 mmol/L Normal 21.0-32.0 [facility] Comment on above: Performed By: #### L 100.0100, L300.3900, L500.4050 ####[facility] [address] [place], [address] Creatinine [Mass/Vol] 1.13 mg/dL Normal 0.70-1.30 [facility] Comment on above: Result Comment: Mode rate Icterus, Result may be falsely decreased.The validity of the calculated GFR GFRAA in patients over70 years has not been determined. Clinical correlation isessential. Performed By: #### L 100.0100, L300.3900, L500.4050 ####[facility] [address] [place], [address] ECRCL 98.71 ml/min Normal [facility] Comment on above: Performed By: #### L 100.0100, L300.3900, L500.4050 ####[facility] [address] [place], [address] EST GFR - AA 92 mL/min Normal >60 [facility] Comment on above: Result Comment: Afri can Yemeni GFR Calc Performed By: #### L 100.0100, L300.3900, L500.4050 ####[facility] [address] [place], [address] GAP 8 Normal 5-15 [facility] Comment on above: Performed By: #### L 100.0100, L300.3900, L500.4050 ####[facility] [address] [place], [address] GFR/1.73 sq M.predicted among non-blacks MDRD (S/P/Bld) [Vol rate/Area] 76 mL/min/{1.73_m2} Normal >60 [facility] Comment on above: Result Comment: Non- GFR Calc Performed By: #### L 100.0100, L300.3900, L500.4050 ####[facility] [address] [place], [address] Globulin (S) [Mass/Vol] 3.0 g/dL Normal 2.2-4.2 [facility] Comment on above: Performed By: #### L 100.0100, L300.3900, L500.4050 ####[facility] [address] [place], [address] Glucose [Mass/Vol] 104 mg/dL Normal 74-106 [facility] Comment on above: Result Comment: Fast ing Glucose result from 100 to 125 mg/dLsuggests IMPAIRED HOMEOSTASIS per A.D.A. criteria. Performed By: #### L 100.0100, L300.3900, L500.4050 ####[facility] [address] [place], [address] Potassium [Moles/Vol] 4.4 mmol/L Normal 3.5-5.1 [facility] Comment on above: Result Comment: Slig ht Hemolysis, Result may be falsely increased. Performed By: #### L 100.0100, L300.3900, L500.4050 ####[facility] [address] [place], [address] Sodium [Moles/Vol] 140 mmol/L Normal 136-145 [facility] Comment on above: Performed By: #### L 100.0100, L300.3900, L500.4050 ####[facility] [address] [place], [address] T PROT 6.1 g/dL Low 6.4-8.2 [facility] Comment on above: Result Comment: Mode rate Icterus, Result may be falsely decreased. Performed By: #### L 100.0100, L300.3900, L500.4050 ####[facility] [address] [place], [address] Urea nitrogen [Mass/Vol] 10 mg/dL Normal 7-18 [facility] Comment on above: Performed By: #### L 100.0100, L300.3900, L500.4050 ####[facility] [address] [place], [address] Albumin [Mass/Vol] 2.7 g/dL Low 3.2-5.0 [facility] Comment on above: Performed By: #### L 501.5200, L500.4050, L501.2300, L100.0100 ####[facility] [address] [place], [address] Albumin/Globulin [Mass ratio] 0.9 {ratio} Normal 0.9-2.4 [facility] Comment on above: Performed By: #### L 501.5200, L500.4050, L501.2300, L100.0100 ####[facility] [address] [place], [address] ALK P 153 U/L High 45-117 [facility] Comment on above: Performed By: #### L 501.5200, L500.4050, L501.2300, L100.0100 ####[facility] [address] [place], [address] ALT [Catalytic activity/Vol] 57 U/L Normal 16-61 [facility] Comment on above: Performed By: #### L 501.5200, L500.4050, L501.2300, L100.0100 ####[facility] [address] [place], [address] AST [Catalytic activity/Vol] 55 U/L High 15-37 [facility] Comment on above: Performed By: #### L 501.5200, L500.4050, L501.2300, L100.0100 ####[facility] [address] [place], [address] Bilirubin [Mass/Vol] 19.20 mg/dL Invalid Interpretation Code 0.20-1.00 [facility] Comment on above: Result Comment: Crit ical Result(s) Called at: 06:08:04 09/05/2024 by: CRISTIANO to Sadaf Kate. Results read back by same. For patients on eltrombopag therapy, use of Dimension Sullivan TBIL is not recommended. Performed By: #### L 501.5200, L500.4050, L501.2300, L100.0100 ####[facility] [address] [place], [address] BUN/CRE 9.8 RATIO Low 10-20 [facility] Comment on above: Performed By: #### L 501.5200, L500.4050, L501.2300, L100.0100 ####[facility] [address] [place], [address] CA,Total 9.0 mg/dL Normal 8.5-10.1 [facility] Comment on above: Performed By: #### L 501.5200, L500.4050, L501.2300, L100.0100 ####[facility] [address] [place], [address] Chloride [Moles/Vol] 107 mmol/L Normal 98-107 [facility] Comment on above: Performed By: #### L 501.5200, L500.4050, L501.2300, L100.0100 ####[facility] [address] [place], [address] CO2 [Moles/Vol] 25.0 mmol/L Normal 21.0-32.0 [facility] Comment on above: Performed By: #### L 501.5200, L500.4050, L501.2300, L100.0100 ####[facility] [address] [place], [address] Creatinine [Mass/Vol] 1.02 mg/dL Normal 0.70-1.30 [facility] Comment on above: Result Comment: Mode rate Icterus, Result may be falsely decreased.The validity of the calculated GFR GFRAA in patients over70 years has not been determined. Clinical correlation isessential. Performed By: #### L 501.5200, L500.4050, L501.2300, L100.0100 ####[facility] [address] [place], [address] ECRCL 109.35 ml/min Normal [facility] Comment on above: Performed By: #### L 501.5200, L500.4050, L501.2300, L100.0100 ####[facility] [address] [place], [address] EST GFR - AA 104 mL/min Normal >60 [facility] Comment on above: Result Comment: Afri can Yemeni GFR Calc Performed By: #### L 501.5200, L500.4050, L501.2300, L100.0100 ####[facility] [address] [place], [address] GAP 6 Normal 5-15 [facility] Comment on above: Performed By: #### L 501.5200, L500.4050, L501.2300, L100.0100 ####[facility] [address] [place], [address] GFR/1.73 sq M.predicted among non-blacks MDRD (S/P/Bld) [Vol rate/Area] 86 mL/min/{1.73_m2} Normal >60 [facility] Comment on above: Result Comment: Non- GFR Calc Performed By: #### L 501.5200, L500.4050, L501.2300, L100.0100 ####[facility] [address] [place], [address] Globulin (S) [Mass/Vol] 3.1 g/dL Normal 2.2-4.2 [facility] Comment on above: Performed By: #### L 501.5200, L500.4050, L501.2300, L100.0100 ####[facility] [address] [place], [address] Glucose [Mass/Vol] 93 mg/dL Normal 74-106 [facility] Comment on above: Performed By: #### L 501.5200, L500.4050, L501.2300, L100.0100 ####[facility] [address] [place], [address] Potassium [Moles/Vol] 3.7 mmol/L Normal 3.5-5.1 [facility] Comment on above: Performed By: #### L 501.5200, L500.4050, L501.2300, L100.0100 ####[facility] [address] [place], [address] Sodium [Moles/Vol] 138 mmol/L Normal 136-145 [facility] Comment on above: Performed By: #### L 501.5200, L500.4050, L501.2300, L100.0100 ####[facility] [address] [place], [address] T PROT 5.8 g/dL Low 6.4-8.2 [facility] Comment on above: Result Comment: Mode rate Icterus, Result may be falsely decreased. Performed By: #### L 501.5200, L500.4050, L501.2300, L100.0100 ####[facility] [address] [place], [address] Urea nitrogen [Mass/Vol] 10 mg/dL Normal 7-18 [facility] Comment on above: Performed By: #### L 501.5200, L500.4050, L501.2300, L100.0100 ####[facility] [address] [place], [address] ERCP Biliary/Pancreason ERCP Biliary/Pancreas Normal [facility] Eosinophil percentageOrdered By: Denys Babin on 09-05-2024 Eosinophils/100 WBC (Bld) 0.7 % 0-5 [facility] High density lipoprotein (HD L) measurementOrdered By: Seth Stein on 09-05-2024 Cholesterol in HDL [Mass/Vol] 6 mg/dL Low >40 [facility] Comment on above: The drugs N-Acetylcy steine and Metamizole may falsely depress this assay. Reference Range HDL <40 mg/dL Low HDL Cholesterol HDL >or= 60 mg/dL High HDL Cholesterol Immature granulocytes/100 WB C Auto (Bld)Ordered By: Denys Babin on 09-05-2024 Immature granulocytes/100 WBC (Bld) 0.700 % 0.0-0.9 [facility] Comment on above: IG% - Immature Granu locytes (promyelocytes, myelocytes and metamyelocytes) > 1% indicates that a LEFT SHIFT is Present. International normalized rat io (INR) calculationOrdered By: Denys Babin on 09-05-2024 INR Coag (Bld) [Relative time] 0.9 {INR} [facility] LDHon 09-05-2024 LDH 133 U/L Normal 87-241 [facility] Comment on above: Performed By: #### L 3200.1100, L3300.0700, L3300.1200, L3200.0500, L504.2610 ####[facility] [address] [place], [place], [address] Lactate dehydrogenase (LDH) measurementOrdered By: Denys Babin on 09-05-2024 LDH [Catalytic activity/Vol] 133 U/L 87-241 [facility] Lipid Profileon 09-05-2024 Cholesterol [Mass/Vol] 156 mg/dL Normal 200 [facility] Comment on above: Result Comment: Mode rate Icterus, Result may be falsely decreased. <200 mg/dL Desirable 200-240 mg/dL Borderline >240 mg/dL High Risk Performed By: #### L 500.4100 ####[facility] [address] [place], [address] Cholesterol in HDL [Mass/Vol] 6 mg/dL Low [facility] Comment on above: Result Comment: The drugs N-Acetylcysteine and Metamizole may falselydepress this assay. Reference Range HDL <40 mg/dL Low HDL Cholesterol HDL >or= 60 mg/dL High HDL Cholesterol Performed By: #### L 500.4100 ####[facility] [address] [place], [address] Cholesterol in LDL [Mass/Vol] 83 mg/dL Normal 0-130 [facility] Comment on above: Performed By: #### L 500.4100 ####[facility] [address] [place], [address] Cholesterol in VLDL [Mass/Vol] 67 mg/dL High 5-40 [facility] Comment on above: Performed By: #### L 500.4100 ####[facility] [address] [place], [address] Triglyceride [Mass/Vol] 333 mg/dL High [facility] Comment on above: Result Comment: The drugs N-Acetylcysteine and Metamizole may falselydepress this assay.Moderate Icterus, Result may be falsely increased.Serum Triglycerides Reference Interval Normal <150 mg/dL Borderline high 150 - 199 mg/dL High 200 - 499 mg/dL Very High > or = 500 mg/dL Performed By: #### L 500.4100 ####[facility] [address] [place], [address] Low density lipoprotein (LDL ) cholesterol measurementOrdered By: Seth Stein on 09-05-2024 Cholesterol in LDL [Mass/Vol] 83 mg/dL 0-130 [facility] Lymphocytes Auto (Unsp spec) [#/Vol]Ordered By: Denys Babin on 09-05-2024 Lymphocytes (Bld) [#/Vol] 0.63 10*3/uL Low 0.83-4.51 [facility] Lymphocytes/100 WBC Auto (Un sp spec)Ordered By: Denys Olaf on 09-05-2024 Lymphocytes/100 WBC (Bld) 7.6 % Low 19-41 [facility] MR/POSTOP.ANEon 09-05-2024 MR/POSTOP.ANE Normal [facility] MR/[id number] 09-05-2024 MR/POSTOPAN2 Normal [facility] MR/POSTOPAN2 Normal [facility] Magnesiumon 09-05-2024 Magnesium [Mass/Vol] 2.2 mg/dL Normal 1.6-2.6 [facility] Comment on above: Performed By: #### L 501.5200, L500.4050, L501.2300, L100.0100 ####[facility] [address] [place], [address] Monocyte percentageOrdered B y: Denys Olaf on 09-05-2024 Monocytes/100 WBC (Bld) 5.9 % 0-10 [facility] Neutrophil percentageOrdered By: Denyskelly Babin on 09-05-2024 Neutrophils/100 WBC (Bld) 84.4 % High 47-70 [facility] Nucleated red blood cell per centageOrdered By: Denyskelly Babin on 09-05-2024 Nucleated RBC/100 WBC (Bld) [Ratio] 0 % 0-5 [facility] Phosphoruson 09-05-2024 Phosphate [Mass/Vol] 3.8 mg/dL Normal 2.5-4.9 [facility] Comment on above: Performed By: #### L 501.5200, L500.4050, L501.2300, L100.0100 ####[facility] [address] [place], [place], [address] Prothrombin Time w/INRon INR Coag (PPP) [Relative time] 0.9 {INR} Normal [facility] Comment on above: Performed By: #### L 100.0100, L300.3900, L500.4050 ####[facility] [address] [place], [address] PT Coag (PPP) [Time] 11.9 s Normal 11.7-14.9 [facility] Comment on above: Performed By: #### L 100.0100, L300.3900, L500.4050 ####[facility] [address] [place], [address] Prothrombin timeOrdered By: Denys Babin on 09-05-2024 PT Coag (PPP) [Time] 11.9 s 11.7-14.9 [facility] Serum or plasma cholesterol measurement (mass/volume)Ordered By: Seth Stein on 09-05-2024 Cholesterol [Mass/Vol] 156 mg/dL <200 [facility] Comment on above: Moderate Icterus, Re sult may be falsely decreased. <200 mg/dL Desirable 200-240 mg/dL Borderline >240 mg/dL High Risk Triglycerides measurementOrd ered By: Seth Stein on 09-05-2024 Triglyceride [Mass/Vol] 333 mg/dL High <199 [facility] Comment on above: The drugs N-Acetylcy [...] 09-05-2024 VLDL Cholesterol 67 mg/dL High 5-40 [facility] Abdomen/Pelvis W IV Cont ONL Yon 2024 Abdomen/Pelvis W IV Cont ONLY Normal [facility] Bilirubin Test strip Ql (U)O rdered By: Rod Ross on 2024 Bilirubin Ql (U) Negative Negative [facility] Bilirubin directOrdered By: Ita Cueto on 2024 Bilirubin.direct [Mass/Vol] 20.11 mg/dL High 0.00-0.30 [facility] Comment on above: Critical Result(s) C alled at: 20:11:53 2024 by: JAX COOK. Results read back by Gertrude MIGUEL Bilirubin, Directon 09-04-20 24 Bilirubin.direct [Mass/Vol] 20.11 mg/dL High 0.00-0.30 [facility] Comment on above: Result Comment: Crit ical Result(s) Called at: 20:11:53 2024 by: STEPHAN. Results read back by Gertrude MIGUEL Performed By: #### L 501.4700 ####[facility] [address] [place], [address] CBC W/Diff, Automatedon Absolute Lymph 1.03 X10 3/uL Normal 0.83-4.51 [facility] Comment on above: Performed By: #### L 500.4050, L100.0100 ####[facility] [address] [place], [address] Absolute Neut 3.5 X10 3/uL Normal 2.0-7.7 [facility] Comment on above: Performed By: #### L 500.4050, L100.0100 ####[facility] [address] [place], [address] Basophils/100 WBC (Bld) 1.1 % High 0-1 [facility] Comment on above: Performed By: #### L 500.4050, L100.0100 ####[facility] [address] [place], [address] Eosinophils/100 WBC (Bld) 2.9 % Normal 0-5 [facility] Comment on above: Performed By: #### L 500.4050, L100.0100 ####[facility] [address] [place], [address] Erythrocyte distribution width (RBC) [Ratio] 16.2 % High 11.6-14.6 [facility] Comment on above: Performed By: #### L 500.4050, L100.0100 ####[facility] [address] [place], [address] Hematocrit (Bld) [Volume fraction] 43.1 % Normal 40-54 [facility] Comment on above: Performed By: #### L 500.4050, L100.0100 ####[facility] [address] [place], [address] Hemoglobin (Bld) [Mass/Vol] 14.3 g/dL Normal 13.0-16.5 [facility] Comment on above: Performed By: #### L 500.4050, L100.0100 ####[facility] [address] [place], [address] IG% 1.600 High 0.0-0.9 [facility] Comment on above: Result Comment: IG% - Immature Granulocytes (promyelocytes, myelocytes andmetamyelocytes) > 1% indicates that a LEFT SHIFT is Present. Performed By: #### L 500.4050, L100.0100 ####[facility] [address] [place], [address] Lymphocytes/100 WBC (Bld) 18.8 % Low 19-41 [facility] Comment on above: Performed By: #### L 500.4050, L100.0100 ####[facility] [address] [place], [address] MCH (RBC) [Entitic mass] 30.0 pg Normal 27.0-32.0 [facility] Comment on above: Performed By: #### L 500.4050, L100.0100 ####[facility] [address] [place], [address] MCHC (RBC) [Mass/Vol] 33.2 g/dL Normal 32-36 [facility] Comment on above: Performed By: #### L 500.4050, L100.0100 ####[facility] [address] [place], [address] MCV (RBC) [Entitic vol] 90.4 fL Normal 80-94 [facility] Comment on above: Performed By: #### L 500.4050, L100.0100 ####[facility] [address] [place], [address] Monocytes/100 WBC (Bld) 12.4 % High 0-10 [facility] Comment on above: Performed By: #### L 500.4050, L100.0100 ####[facility] [address] [place], [address] Neutrophils/100 WBC (Bld) 63.2 % Normal 47-70 [facility] Comment on above: Performed By: #### L 500.4050, L100.0100 ####[facility] [address] [place], [address] Nucleated RBC (Bld) [#/Vol] 0 10*3/uL Normal 0-5 [facility] Comment on above: Performed By: #### L 500.4050, L100.0100 ####[facility] [address] [place], [address] Platelet mean volume (Bld) [Entitic vol] 9.5 fL Normal 6.2-12.0 [facility] Comment on above: Performed By: #### L 500.4050, L100.0100 ####[facility] [address] [place], [address] Platelets (Bld) [#/Vol] 325 10*3/uL Normal 150-450 [facility] Comment on above: Performed By: #### L 500.4050, L100.0100 ####[facility] [address] [place], [address] RBC (Bld) [#/Vol] 4.77 10*6/uL Normal 4.6-6.2 [facility] Comment on above: Performed By: #### L 500.4050, L100.0100 ####[facility] [address] [place], [address] RDW SD 54.2 fl High 35.1-43.9 [facility] Comment on above: Performed By: #### L 500.4050, L100.0100 ####[facility] [address] [place], [address] WBC (Bld) [#/Vol] 5.5 10*3/uL Normal 4.4-11.0 [facility] Comment on above: Performed By: #### L 500.4050, L100.0100 ####[facility] [address] [place], [address] Comprehensive Metabolic [place] 2024 Albumin [Mass/Vol] 3.7 g/dL Normal 3.2-5.0 [facility] Comment on above: Performed By: #### L 500.4050, L100.0100 ####[facility] [address] [place], [address] Albumin/Globulin [Mass ratio] 0.9 {ratio} Normal 0.9-2.4 [facility] Comment on above: Performed By: #### L 500.4050, L100.0100 ####[facility] [address] [place], [address] ALK P 199 U/L High 45-117 [facility] Comment on above: Performed By: #### L 500.4050, L100.0100 ####[facility] [address] [place], [address] ALT [Catalytic activity/Vol] 78 U/L High 16-61 [facility] Comment on above: Performed By: #### L 500.4050, L100.0100 ####[facility] [address] [place], [address] AST [Catalytic activity/Vol] 68 U/L High 15-37 [facility] Comment on above: Performed By: #### L 500.4050, L100.0100 ####[facility] [address] [place], [address] Bilirubin [Mass/Vol] 23.90 mg/dL Invalid Interpretation Code 0.20-1.00 [facility] Comment on above: Result Comment: Crit ical Result(s) Called at: 19:05:27 2024 by: STEPHAN. Results read back by Vaishnavi For patients on eltrombopag therapy, use of Dimension Sullivan TBIL is not recommended. Performed By: #### L 500.4050, L100.0100 ####[facility] [address] [place], [address] BUN/CRE 11.5 RATIO Normal 10-20 [facility] Comment on above: Performed By: #### L 500.4050, L100.0100 ####[facility] [address] [place], [address] CA,Total 9.8 mg/dL Normal 8.5-10.1 [facility] Comment on above: Performed By: #### L 500.4050, L100.0100 ####[facility] [address] [place], [address] Chloride [Moles/Vol] 102 mmol/L Normal 98-107 [facility] Comment on above: Performed By: #### L 500.4050, L100.0100 ####[facility] [address] [place], [address] CO2 [Moles/Vol] 28.0 mmol/L Normal 21.0-32.0 [facility] Comment on above: Performed By: #### L 500.4050, L100.0100 ####[facility] [address] [place], [address] Creatinine [Mass/Vol] 1.13 mg/dL Normal 0.70-1.30 [facility] Comment on above: Result Comment: Mode rate Icterus, Result may be falsely decreased.The validity of the calculated GFR GFRAA in patients over70 years has not been determined. Clinical correlation isessential. Performed By: #### L 500.4050, L100.0100 ####[facility] [address] [place], [address] ECRCL 99.11 ml/min Normal [facility] Comment on above: Performed By: #### L 500.4050, L100.0100 ####[facility] [address] [place], [address] EST GFR - AA 92 mL/min Normal >60 [facility] Comment on above: Result Comment: Afri can Yemeni GFR Calc Performed By: #### L 500.4050, L100.0100 ####[facility] [address] [place], [address] GAP 8 Normal 5-15 [facility] Comment on above: Performed By: #### L 500.4050, L100.0100 ####[facility] [address] [place], [address] GFR/1.73 sq M.predicted among non-blacks MDRD (S/P/Bld) [Vol rate/Area] 76 mL/min/{1.73_m2} Normal >60 [facility] Comment on above: Result Comment: Non- GFR Calc Performed By: #### L 500.4050, L100.0100 ####[facility] [address] [place], [address] Globulin (S) [Mass/Vol] 3.9 g/dL Normal 2.2-4.2 [facility] Comment on above: Performed By: #### L 500.4050, L100.0100 ####[facility] [address] [place], [address] Glucose [Mass/Vol] 105 mg/dL Normal 74-106 [facility] Comment on above: Result Comment: Fast ing Glucose result from 100 to 125 mg/dLsuggests IMPAIRED HOMEOSTASIS per A.D.A. criteria. Performed By: #### L 500.4050, L100.0100 ####[facility] [address] [place], [address] Potassium [Moles/Vol] 3.9 mmol/L Normal 3.5-5.1 [facility] Comment on above: Performed By: #### L 500.4050, L100.0100 ####[facility] [address] [place], [address] Sodium [Moles/Vol] 138 mmol/L Normal 136-145 [facility] Comment on above: Performed By: #### L 500.4050, L100.0100 ####[facility] [address] [place], [address] T PROT 7.6 g/dL Normal 6.4-8.2 [facility] Comment on above: Result Comment: Mode rate Icterus, Result may be falsely decreased. Performed By: #### L 500.4050, L100.0100 ####[facility] [address] [place], [address] Urea nitrogen [Mass/Vol] 13 mg/dL Normal 7-18 [facility] Comment on above: Performed By: #### L 500.4050, L100.0100 ####[facility] [address] [place], [address] Emergency Department Summary on 2024 Emergency Department Summary Normal [facility] Epithelial cells.squamous LM Ql (Urine sed)Ordered By: Rod Ross on 2024 Epithelial cells.squamous LM.HPF (Urine sed) [#/Area] 0 /[HPF] 0-5 [facility] Gallbladderon 2024 Gallbladder Normal [facility] Glucose Ql (U)Ordered By: Chase ramirez Vandana on 2024 Urine Glucose (UA) Normal mg/dl Normal [facility] H AND P Exam - [facility] 2024 H&P Exam - Hospitalist Normal [facility] Hemoglobin A1con 2024 HbA1c (Bld) [Mass fraction] 4.8 % Normal 3.8-5.6 [facility] Comment on above: Result Comment: Norm al < 5.7 % Prediabetic 5.7 - 6.4 % Diabetic >or= 6.5 % Please note range changes. Performed By: #### L 501.9520, L501.9985 ####[facility] [address] [place], [place], [id number] Hemoglobin A1c percentageOrd ered By: Seth Stein on 2024 HbA1c (Bld) [Mass fraction] 4.8 % 3.8-5.6 [facility] Comment on above: Normal < 5.7 % Predi abetic 5.7 - 6.4 % Diabetic >or= 6.5 % Please note range changes. Ketones Test strip Ql (U)Ord ered By: Rod Ross on 2024 Ketones Ql (U) Negative Negative [facility] Lipaseon 2024 Lipase [Catalytic activity/Vol] 43 U/L Normal -75 [facility] Comment on above: Result Comment: Sully delaney note:LIPASE revised reference range effective 23.New Lipase methodology. Expected to produce lower valuesthan the previous assay method.NEW Reference Range: 13 - 75 U/L Performed By: #### L 501.2450 ####[facility] [address] [place], [place], [address] Lipase measurementOrdered By : Ita Cueto on 2024 Lipase [Catalytic activity/Vol] 43 U/L 13-75 [facility] Comment on above: Please note:LIPASE r evised reference range effective 23. New Lipase methodology. Expected to produce lower values than the previous assay method. NEW Reference Range: 13 - 75 U/L Lipid Profileon 2024 HDL Normal [facility] Comment on above: Result Comment: DUPL ICATE,UNABLE TO UNRECIEVEThe drugs N-Acetylcysteine and Metamizole may falselydepress this assay. Performed By: #### L 500.4100 ####[facility] [address] [facility] [address] TRIG Normal [facility] Comment on above: Result Comment: DUPL ICATE,UNABLE TO UNRECIEVEThe drugs N-Acetylcysteine and Metamizole may falselydepress this assay. Performed By: #### L 500.4100 ####[facility] [address] [place], [address] CHOL Normal 200 [facility] Comment on above: Result Comment: DUPL ICATE,UNABLE TO UNRECIEVE Performed By: #### L 500.4100 ####[facility] [address] [place], [address] LDL Normal 0-130 [facility] Comment on above: Result Comment: DUPL ICATE,UNABLE TO UNRECIEVE Performed By: #### L 500.4100 ####[facility] [address] [place], [address] VLDL Normal 5-40 [facility] Comment on above: Result Comment: DUPL ICATE,UNABLE TO UNRECIEVE Performed By: #### L 500.4100 ####[facility] [address] [place], [address] MR/CON.PCM.GIon 2024 MR/CON.PCM.GI Normal [facility] Microscopic analysis of urin e for red blood cells (RBC)Ordered By: Rod Ross on 2024 Urine RBC 0 SEEN /hpf 0-5 [facility] Mucus LM Ql (Urine sed)Order ed By: Rod Ross on 2024 Mucus Ql (Urine sed) 0 SEEN /hpf [facility] Nitrite Test strip Ql (U)Ord ered By: Rod Ross on 2024 Nitrite Ql (U) Negative Negative [facility] Protein Test strip Ql (U)Ord ered By: Rod Ross on 2024 Protein Ql (U) Negative Negative [facility] Prothrombin Time w/INRon INR Coag (PPP) [Relative time] 0.9 {INR} Normal [facility] Comment on above: Performed By: #### L 300.3900 ####[facility] [address] [place], [address] PT Coag (PPP) [Time] 11.9 s Normal 11.7-14.9 [facility] Comment on above: Performed By: #### L 300.3900 ####[facility] [address] [place], [address] TSH QnOrdered By: Seth earl on 2024 Thyroid Stimulating Hormone (TSH) 0.545 uIU/mL 0.358-3.740 [facility] Thyroid Stim Hormone (TSH)on 2024 TSH 0.545 uIU/mL Normal 0.358-3.740 [facility] Comment on above: Performed By: #### L 501.9520, L501.9985 ####[facility] [address] [place], [address] Urinalysis, Completeon 09-04 BACTERIA 1+ /hpf Normal None Seen [facility] Comment on above: Order Comment: MANOJ CTOR TO SPECIFY Performed By: #### L 400.0001 ####[facility] [address] [place], [address] BILIRUBIN URINE Negative Normal Negative [facility] Comment on above: Order Comment: MANOJ CTOR TO SPECIFY Performed By: #### L 400.0001 ####[facility] [address] [place], [address] Clarity (U) Clear Normal Clear [facility] Comment on above: Order Comment: MANOJ CTOR TO SPECIFY Performed By: #### L 400.0001 ####[facility] [address] [place], [address] Color (U) Yellow Normal Yellow [facility] Comment on above: Order Comment: MANOJ CTOR TO SPECIFY Performed By: #### L 400.0001 ####[facility] [address] [place], [address] GLUCOSE, UR Normal Normal Normal [facility] Comment on above: Order Comment: MANOJ CTOR TO SPECIFY Performed By: #### L 400.0001 ####[facility] [address] [place], [address] KETONE UR Negative Normal Negative [facility] Comment on above: Order Comment: MANOJ CTOR TO SPECIFY Performed By: #### L 400.0001 ####[facility] [address] [place], [address] LEUK ESTERASE Negative Normal Negative [facility] Comment on above: Order Comment: MANOJ CTOR TO SPECIFY Performed By: #### L 400.0001 ####[facility] [address] [place], [address] Nitrite Ql (U) Negative Normal Negative [facility] Comment on above: Order Comment: MANOJ CTOR TO SPECIFY Performed By: #### L 400.0001 ####[facility] [address] [place], [address] OCCULT BLOOD-UR Negative Normal Negative [facility] Comment on above: Order Comment: MANOJ CTOR TO SPECIFY Performed By: #### L 400.0001 ####[facility] [address] [place], [address] pH UR 6.0 Normal 5.0 - 8.0 [facility] Comment on above: Order Comment: MANOJ CTOR TO SPECIFY Performed By: #### L 400.0001 ####[facility] [address] [place], [address] PROT DIPSTX Negative Normal Negative [facility] Comment on above: Order Comment: MANOJ CTOR TO SPECIFY Performed By: #### L 400.0001 ####[facility] [address] [place], [address] SP.GR. DIPSTX 1.005 Normal 1.002-1.030 [facility] Comment on above: Order Comment: MANOJ CTOR TO SPECIFY Performed By: #### L 400.0001 ####[facility] [address] [place], [address] UROBILI Normal Normal Normal [facility] Comment on above: Order Comment: MANOJ CTOR TO SPECIFY Performed By: #### L 400.0001 ####[facility] [address] [place], [address] EPI,SQUAMOUS 0 SEEN Normal 0-5 [facility] Comment on above: Order Comment: MANOJ CTOR TO SPECIFY Performed By: #### L 400.0001 ####[facility] [address] [place], [address] Mucus Ql (Urine sed) 0 SEEN Normal [facility] Comment on above: Order Comment: MANOJ CTOR TO SPECIFY Performed By: #### L 400.0001 ####[facility] [address] [place], [address] RBC 0 SEEN Normal 0-5 [facility] Comment on above: Order Comment: MANOJ CTOR TO SPECIFY Performed By: #### L 400.0001 ####[facility] [address] [place], [address] WBC 0 SEEN Normal 0-5 [facility] Comment on above: Order Comment: AMNOJ CTOR TO SPECIFY Performed By: #### L 400.0001 ####[facility] [address] [place], [address] Urine blood detectionOrdered By: Rod Ross on 2024 Urine Occult Blood Negative Negative [facility] Urine clarityOrdered By: Woo Ross on 2024 Clarity (U) Clear Clear [facility] Urine color determinationOrd ered By: Rod Ross on 2024 Color (U) Yellow Yellow [facility] Urine leukocyte esterase det ection by dipstickOrdered By: Rod Ross on 2024 Leukocyte esterase Test strip Ql (U) Negative Negative [facility] Urine pHOrdered By: Rod Ross on 2024 pH (U) 6.0 [pH] 5.0 - 8.0 [facility] Urine sediment bacteria coun t by microscopy (number/high power field)Ordered By: Rod Ross on 2024 Bacteria LM.HPF (Urine sed) [#/Area] 1 /[HPF] None Seen [facility] Urine specific gravity measu rementOrdered By: Rod Ross on 2024 Specific gravity (U) [Rel density] 1.005 1.002-1.030 [facility] Urobilinogen Ql (U)Ordered B y: Rod Ross on 2024 Urine Urobilinogen Normal mg/dl Normal [facility] White blood cell countOrdere d By: Rod Ross on 2024 Urine WBC 0 SEEN /hpf 0-5 [facility] US ABDOMEN LIMITEDon 024 US ABDOMEN LIMITED ORIGINAL EXAMINATION: LIMITED ABDOMINAL [id number]/13/2024 8:11 am Limited ultrasound of the abdomen [...] 08/12/2024 9:46:00 AM Ordering Provider: VANGIE SAPP [facility] CT PELVIS W/O CONTRASTon CT PELVIS [...] 06/09/2024 12:42:25 PM Ordering Provider: CAYLA HOOPER [facility] US SCROTUM CONTENTSon 2023 US SCROTUM [...] 03/27/2024 3:12:22 PM Ordering Provider: SHIRA ARIAS [facility] ([place]) Vital Signs Date Time Vital Sign Value Performing Clinician Faci fredy 05-03-2025 13:45-0400 Body temperature 97.4 [degF] Shira Arias HOUSEHOLD APPLIANCE REPAIRER-C Work Phone: [facility] 05-03-2025 13:45-0400 Diastolic blood pressure 82 mm[Hg] Shira Arias HOUSEHOLD APPLIANCE REPAIRER-C Work Phone: [facility] 05-03-2025 13:45-0400 Heart rate 64 /min Shira Arias HOUSEHOLD APPLIANCE REPAIRER-C Work Phone: [facility] 05-03-2025 13:45-0400 Respiratory rate 16 /min Shira Arias HOUSEHOLD APPLIANCE REPAIRER-C Work Phone: [facility] 05-03-2025 13:45-0400 SaO2% (BldA) [Mass fraction] 96 % Shira Arias HOUSEHOLD APPLIANCE REPAIRER-C Work Phone: [facility] 05-03-2025 13:45-0400 Systolic blood pressure 97 mm[Hg] Shira Arias HOUSEHOLD APPLIANCE REPAIRER-C Work Phone: [facility] 05-03-2025 11:55-0400 Body height 177.8 cm Shira Arias HOUSEHOLD APPLIANCE REPAIRER-C Work Phone: [facility] 05-03-2025 11:55-0400 Body mass index (BMI) [Ratio] 30.2 kg/m2 Shira Arias HOUSEHOLD APPLIANCE REPAIRER-C Work Phone: [facility] 05-03-2025 11:55-0400 Body weight 95.7 kg Shira Arias HOUSEHOLD APPLIANCE REPAIRER-C Work Phone: [facility] 03-18-2025 18:35-0400 Body temperature 98.9 [degF] hSira Arias HOUSEHOLD APPLIANCE REPAIRER-C Work Phone: [facility] 03-18-2025 18:35-0400 Diastolic blood pressure 90 mm[Hg] Shira Arias HOUSEHOLD APPLIANCE REPAIRER-C Work Phone: [facility] 03-18-2025 18:35-0400 Heart rate 90 /min Shira Arias HOUSEHOLD APPLIANCE REPAIRER-C Work Phone: [facility] 03-18-2025 18:35-0400 Respiratory rate 18 /min Shira Arias HOUSEHOLD APPLIANCE REPAIRER-C Work Phone: [facility] 03-18-2025 18:35-0400 SaO2% (BldA) [Mass fraction] 98 % Shira Arias HOUSEHOLD APPLIANCE REPAIRER-C Work Phone: [facility] 03-18-2025 18:35-0400 Systolic blood pressure 123 mm[Hg] Shira Arias HOUSEHOLD APPLIANCE REPAIRER-C Work Phone: [facility] 03-18-2025 18:34-0400 Body temperature 98.9 [degF] Shira Arias HOUSEHOLD APPLIANCE REPAIRER-C Work Phone: [facility] 03-18-2025 18:34-0400 Diastolic blood pressure 90 mm[Hg] Shira Arias HOUSEHOLD APPLIANCE REPAIRER-C Work Phone: [facility] 03-18-2025 18:34-0400 Heart rate 95 /min Shira Arias HOUSEHOLD APPLIANCE REPAIRER-C Work Phone: [facility] 03-18-2025 18:34-0400 Inhaled oxygen flow rate 0 L/min Shira Arias HOUSEHOLD APPLIANCE REPAIRER-C Work Phone: [facility] 03-18-2025 18:34-0400 Respiratory rate 18 /min Shira Arias HOUSEHOLD APPLIANCE REPAIRER-C Work Phone: [facility] 03-18-2025 18:34-0400 SaO2% (BldA) [Mass fraction] 98 % Shira Arias HOUSEHOLD APPLIANCE REPAIRER-C Work Phone: [facility] 03-18-2025 18:34-0400 Systolic blood pressure 123 mm[Hg] Shira Arias HOUSEHOLD APPLIANCE REPAIRER-C Work Phone: [facility] 03-17-2025 19:52-0400 Body height 177.8 cm Shira Arias HOUSEHOLD APPLIANCE REPAIRER-C Work Phone: [facility] 03-17-2025 19:52-0400 Body mass index (BMI) [Ratio] 30.4 kg/m2 Shira Arias HOUSEHOLD APPLIANCE REPAIRER-C Work Phone: [facility] 03-17-2025 19:52-0400 Body weight 96.3 kg Shira Juana HOUSEHOLD APPLIANCE REPAIRER-C Work Phone: [facility] 12-31-2024 10:04-0400 Body height 177.8 cm Shira Juana HOUSEHOLD APPLIANCE REPAIRER-C Work Phone: [facility] 12-31-2024 10:04-0400 Body mass index (BMI) [Ratio] 29.3 kg/m2 Shira Lorson HOUSEHOLD APPLIANCE REPAIRER-C Work Phone: [facility] 12-31-2024 10:04-0400 Body temperature 97.6 [degF] Shira Lorson HOUSEHOLD APPLIANCE REPAIRER-C Work Phone: [facility] 12-31-2024 10:04-0400 Body weight 92.75 kg Shira Lorson HOUSEHOLD APPLIANCE REPAIRER-C Work Phone: [facility] 12-31-2024 10:04-0400 Diastolic blood pressure 70 mm[Hg] Shira Lorson HOUSEHOLD APPLIANCE REPAIRER-C Work Phone: [facility] 12-31-2024 10:04-0400 Heart rate 67 /min Shira Lorson HOUSEHOLD APPLIANCE REPAIRER-C Work Phone: [facility] 12-31-2024 10:04-0400 Respiratory rate 18 /min Shira Lorson HOUSEHOLD APPLIANCE REPAIRER-C Work Phone: [facility] 12-31-2024 10:04-0400 Systolic blood pressure 100 mm[Hg] Shira Arias HOUSEHOLD APPLIANCE REPAIRER-C Work Phone: [facility] 12-16-2024 14:17-0400 Body temperature 98.7 [degF] Shira Lorson HOUSEHOLD APPLIANCE REPAIRER-C Work Phone: [facility] 12-16-2024 14:17-0400 Diastolic blood pressure 79 mm[Hg] Shira Lorson HOUSEHOLD APPLIANCE REPAIRER-C Work Phone: [facility] 12-16-2024 14:17-0400 Heart rate 69 /min Shira Lorson HOUSEHOLD APPLIANCE REPAIRER-C Work Phone: [facility] 12-16-2024 14:17-0400 Respiratory rate 16 /min Shira Arias HOUSEHOLD APPLIANCE REPAIRER-C Work Phone: [facility] 12-16-2024 14:17-0400 SaO2% (BldA) [Mass fraction] 96 % Shira Arias HOUSEHOLD APPLIANCE REPAIRER-C Work Phone: [facility] 12-16-2024 14:17-0400 Systolic blood pressure 113 mm[Hg] Shira Arias HOUSEHOLD APPLIANCE REPAIRER-C Work Phone: [facility] 12-15-2024 14:00-0400 Body height 178 cm Shira Arias HOUSEHOLD APPLIANCE REPAIRER-C Work Phone: [facility] 12-15-2024 14:00-0400 Body mass index (BMI) [Ratio] 29.3 kg/m2 Shira Arias HOUSEHOLD APPLIANCE REPAIRER-C Work Phone: [facility] 12-15-2024 14:00-0400 Body weight 93 kg Shira Arias HOUSEHOLD APPLIANCE REPAIRER-C Work Phone: [facility] 12-14-2024 15:52-0400 Body temperature 98.2 [degF] Shira Arias HOUSEHOLD APPLIANCE REPAIRER-C Work Phone: [facility] 12-14-2024 15:52-0400 Diastolic blood pressure 84 mm[Hg] Shira Arias HOUSEHOLD APPLIANCE REPAIRER-C Work Phone: [facility] 12-14-2024 15:52-0400 Heart rate 88 /min Shira Arias HOUSEHOLD APPLIANCE REPAIRER-C Work Phone: [facility] 12-14-2024 15:52-0400 Respiratory rate 17 /min Shira Arias HOUSEHOLD APPLIANCE REPAIRER-C Work Phone: [facility] 12-14-2024 15:52-0400 SaO2% (BldA) [Mass fraction] 94 % Shira Arias HOUSEHOLD APPLIANCE REPAIRER-C Work Phone: [facility] 12-14-2024 15:52-0400 Systolic blood pressure 138 mm[Hg] Shira Arias HOUSEHOLD APPLIANCE REPAIRER-C Work Phone: [facility] 12-14-2024 10:14-0400 Body height 177.8 cm Shira Arias HOUSEHOLD APPLIANCE REPAIRER-C Work Phone: [facility] 12-14-2024 10:14-0400 Body mass index (BMI) [Ratio] 29.4 kg/m2 Shira Arias HOUSEHOLD APPLIANCE REPAIRER-C Work Phone: [facility] 12-14-2024 10:14-0400 Body weight 92.98 kg Shira Arias HOUSEHOLD APPLIANCE REPAIRER-C Work Phone: [facility] 12-11-2024 14:30-0400 Body temperature 97.2 [degF] Shira Arias HOUSEHOLD APPLIANCE REPAIRER-C Work Phone: [facility] 12-11-2024 14:30-0400 Diastolic blood pressure 83 mm[Hg] Shira Arias HOUSEHOLD APPLIANCE REPAIRER-C Work Phone: [facility] 12-11-2024 14:30-0400 Heart rate 77 /min Shira Arias HOUSEHOLD APPLIANCE REPAIRER-C Work Phone: [facility] 12-11-2024 14:30-0400 Respiratory rate 16 /min Shira Arias HOUSEHOLD APPLIANCE REPAIRER-C Work Phone: [facility] 12-11-2024 14:30-0400 SaO2% (BldA) [Mass fraction] 93 % Shira Arias HOUSEHOLD APPLIANCE REPAIRER-C Work Phone: [facility] 12-11-2024 14:30-0400 Systolic blood pressure 100 mm[Hg] Shira Arias HOUSEHOLD APPLIANCE REPAIRER-C Work Phone: [facility] 12-11-2024 13:03-0400 Body height 177.8 cm Shira Arias HOUSEHOLD APPLIANCE REPAIRER-C Work Phone: [facility] 12-11-2024 13:03-0400 Body mass index (BMI) [Ratio] 29.7 kg/m2 Shira Arias HOUSEHOLD APPLIANCE REPAIRER-C Work Phone: [facility] 12-11-2024 13:03-0400 Body weight 93.8 kg Shira Arias HOUSEHOLD APPLIANCE REPAIRER-C Work Phone: [facility] 09-11-2024 08:02-0500 Body mass index (BMI) [Ratio] 29.1 kg/m2 Shira Arias HOUSEHOLD APPLIANCE REPAIRER-C Work Phone: [facility] 09-11-2024 08:02-0500 Body weight 92.07 kg Shira Arias HOUSEHOLD APPLIANCE REPAIRER-C Work Phone: [facility] 09-11-2024 08:02-0500 Diastolic blood pressure 84 mm[Hg] Shira Arias HOUSEHOLD APPLIANCE REPAIRER-C Work Phone: [facility] 09-11-2024 08:02-0500 Heart rate 72 /min Shira Arias HOUSEHOLD APPLIANCE REPAIRER-C Work Phone: [facility] 09-11-2024 08:02-0500 SaO2% (BldA) [Mass fraction] 98 % Shira Arias HOUSEHOLD APPLIANCE REPAIRER-C Work Phone: [facility] 09-11-2024 08:02-0500 Systolic blood pressure 123 mm[Hg] Shira Arias HOUSEHOLD APPLIANCE REPAIRER-C Work Phone: [facility] 09-07-2024 08:00-0500 Body temperature 97.7 [degF] Shira Arias HOUSEHOLD APPLIANCE REPAIRER-C Work Phone: [facility] 09-07-2024 08:00-0500 Diastolic blood pressure 72 mm[Hg] Shira Arias HOUSEHOLD APPLIANCE REPAIRER-C Work Phone: [facility] 09-07-2024 08:00-0500 Heart rate 70 /min Shira Arias HOUSEHOLD APPLIANCE REPAIRER-C Work Phone: [facility] 09-07-2024 08:00-0500 Respiratory rate 18 /min Shira Arias HOUSEHOLD APPLIANCE REPAIRER-C Work Phone: [facility] 09-07-2024 08:00-0500 SaO2% (BldA) [Mass fraction] 99 % Shira Arias HOUSEHOLD APPLIANCE REPAIRER-C Work Phone: [facility] 09-07-2024 08:00-0500 Systolic blood pressure 114 mm[Hg] Shira Arias HOUSEHOLD APPLIANCE REPAIRER-C Work Phone: [facility] 09-06-2024 06:00-0500 Body mass index (BMI) [Ratio] 29.2 kg/m2 Shira Arias HOUSEHOLD APPLIANCE REPAIRER-C Work Phone: [facility] 09-06-2024 06:00-0500 Body weight 92.6 kg Shira Arias HOUSEHOLD APPLIANCE REPAIRER-C Work Phone: [facility] Encounters Encounter Date Encounter Type Care Provider Facility Start: 05-03-2025 Non-patient / Non-visit Denys Babin DO -[facility] Start: 05-03-2025 End: 05-03-2025 Admission to same day surgery center Denys Babin DO -Endoscopy Work Phone: Start: 05-03-2025 End: 05-03-2025 ambulatory Shira Arias NP Facility:[facility] Start: 04-07-2025 End: 04-07-2025 Patient encounter procedure Bing Temple PA-C -[facility] Work Phone: Start: 04-07-2025 End: 04-07-2025 ambulatory Shira Arias HOUSEHOLD APPLIANCE REPAIRER-C Work Phone: -[facility] Start: 03-31-2025 End: 03-31-2025 Patient encounter procedure Bing Temple PA-C -[facility] Work Phone: Start: 03-31-2025 End: 03-31-2025 ambulatory Shira Arias NP-C Work Phone: -[facility] Start: 03-30-2025 End: 03-30-2025 ambulatory Shira Arias NP-C Work Phone: -Nuclear [facility] Start: 03-30-2025 End: 03-30-2025 Patient encounter procedure Bing Temple PA-C -[facility] Work Phone: Start: 03-30-2025 End: 03-30-2025 ambulatory Bing YOUNG Facility:[facility] Start: 03-25-2025 End: 03-25-2025 Patient encounter procedure Bing Temple PA-C -[facility] Work Phone: Start: 03-25-2025 End: 03-25-2025 ambulatory Shira Arias NP-C Work Phone: [facility] Work Phone: Start: 03-22-2025 ambulatory Shira Arias NP Facil ity:[facility] Start: 03-18-2025 Non-patient / Non-visit Dr. Camron Shoemaker MD -[facility] Start: 03-17-2025 ambulatory Shira Arias NP Facil ity:[facility] Start: 03-17-2025 End: 03-18-2025 Evaluation and management of inpatient Dr. Camron Shoemaker MD -[facility] Work Phone: Start: 03-17-2025 ambulatory Shira Arias NP Facil ity:[facility] Start: 03-17-2025 Non-patient / Non-visit Dr. Camron Shoemaker MD -[facility] Start: 03-08-2025 End: 03-08-2025 ambulatory Camron Redd Facility:[facility] Start: 03-08-2025 End: 03-08-2025 Non-patient / Non-visit Dr. Camron Redd MD -[facility] Work Phone: Start: 02-24-2025 End: 02-24-2025 ambulatory Shira Arias NP-C Work Phone: [facility] Work Phone: Start: 02-24-2025 End: 02-24-2025 Patient encounter procedure Michela Sal NP-C -Nuclear Medicine [facility] Work Phone: Start: 02-24-2025 End: 02-24-2025 ambulatory Shira Arias NP Facility:[facility] Start: 02-02-2025 ambulatory MICHELA ACUNA TREATING MACHINE OPERATOR-CUTTING AND BONING SUPERVISOR Facility:A Start: 01-05-2025 Registered Referred Michela roe NP-C -Laboratory Specimen Work Phone: Start: 01-05-2025 ambulatory Shira Arias NP Facil ity:[facility] Start: 12-31-2024 End: 12-31-2024 ambulatory Shira Arias HOUSEHOLD APPLIANCE REPAIRER-C Work Phone: [facility] Work Phone: Start: 12-31-2024 End: 12-31-2024 Patient encounter procedure Cayla Quiñonez HOUSEHOLD APPLIANCE REPAIRER-C -Laboratory Work Phone: Start: 12-31-2024 End: 12-31-2024 Patient encounter procedure Cayla Quiñonez HOUSEHOLD APPLIANCE REPAIRER-C -[facility] Work Phone: Start: 12-31-2024 End: 12-31-2024 ambulatory Shira Arias HOUSEHOLD APPLIANCE REPAIRER Facility:[facility] Start: 12-31-2024 End: 12-31-[address] Camron Shoemaker MD -[facility] Work Phone: Start: 12-31-2024 End: 12-31-2024 ambulatory Shira Arias HOUSEHOLD APPLIANCE REPAIRER Facility:[facility] Start: 12-31-2024 End: 12-31-2024 ambulatory Shira Arias HOUSEHOLD APPLIANCE REPAIRER Facility:[facility] Start: 12-16-2024 Non-patient / Non-visit Dr. Francesco Lui MD -[facility] Work Phone: Start: 12-16-2024 Non-patient / Non-visit Dr. Camron Shoemaker MD -[facility] Start: 12-15-2024 Non-patient / Non-visit [facility] Start: 12-15-2024 Non-patient / Non-visit Dr. Francesco Lui MD -[facility] Work Phone: Start: 12-14-2024 ambulatory Cruz Arciniega Fac ility:[facility] Start: 12-14-2024 End: 12-16-2024 Evaluation and management of inpatient Dr. Cruz Arciniega DO -[facility] Work Phone: Start: 12-11-2024 End: 12-11-2024 Admission to same day surgery center Denys Babin DO -Endoscopy Work Phone: Start: 12-11-2024 End: 12-11-2024 ambulatory Shira Arias HOUSEHOLD APPLIANCE REPAIRER-C Work Phone: [facility] Work Phone: Start: 12-11-2024 End: 12-11-2024 Non-patient / Non-visit Denys Friend DO -[facility] Start: 09-11-2024 End: 09-11-[address] Francesco Lui MD -[facility] Work Phone: Start: 09-11-2024 End: 09-11-2024 ambulatory Shira Arias HOUSEHOLD APPLIANCE REPAIRER Facility:[facility] Start: 09-11-2024 End: 09-11-2024 ambulatory Francesco Lui Facility:[facility] Start: 09-07-2024 Non-patient / Non-visit Dr. Edwina Kimball DO -[facility] Work Phone: Start: 09-07-2024 Non-patient / Non-visit Denyskelly Babin DO -[facility] Start: 09-06-2024 Non-patient / Non-visit Dr. Cruz Arciniega DO [facility] Work Phone: Start: 09-05-2024 End: 09-05-2024 ambulatory Denys Friend Facility:[facility] Start: 09-05-2024 End: 09-05-2024 Non-patient / Non-visit Denys Friend DO -[facility] Start: 2024 Non-patient / Non-visit Denys Friend DO -[facility] Start: 2024 ambulatory Denys Friend Facility :[facility] Start: 2024 End: 09-07-2024 Evaluation and management of inpatient Dr. Edwina Kimball DO -[facility] Work Phone: Start: 08-12-2024 End: 08-12-2024 ambulatory SHIRA ARIAS TREATING MACHINE OPERATOR-CUTTING AND BONING SUPERVISOR Facility:[facility] Start: 08-12-2024 End: 08-12-2024 Patient encounter procedure CAYLA HOOPER TREATING MACHINE OPERATOR-CUTTING AND BONING SUPERVISOR [facility] Start: 08-06-2024 ambulatory VANGIE SUTTONKelly Porsche TREATING MACHINE OPERATOR-CUTTING AND BONING SUPERVISOR Facility:[facility] Start: 06-11-2024 End: 06-11-2024 ambulatory CAYLA Griffiths SANDIE TREATING MACHINE OPERATOR-CUTTING AND BONING SUPERVISOR Facility:[facility] Start: 06-11-2024 End: 06-11-2024 Patient encounter procedure CAYLA Griffiths SANDIE TREATING MACHINE OPERATOR-CUTTING AND BONING SUPERVISOR [facility] Start: 06-09-2024 End: 06-09-2024 ambulatory CAYLA Griffiths SANDIE TREATING MACHINE OPERATOR-CUTTING AND BONING SUPERVISOR Facility:[facility] Start: 06-09-2024 End: 06-09-2024 Patient encounter procedure CAYLA Griffiths SANDIE TREATING MACHINE OPERATOR-CUTTING AND BONING SUPERVISOR [facility] Start: 05-27-2024 ambulatory CAYLA Griffiths CYNTHIA NELSON TREATING MACHINE OPERATOR-CUTTING AND BONING SUPERVISOR Facility:[facility] Start: 05-14-2024 End: 05-14-2024 ambulatory CAYLA Griffiths SANDIE TREATING MACHINE OPERATOR-CUTTING AND BONING SUPERVISOR Facility:[facility] Start: 03-27-2024 End: 03-27-2024 ambulatory SHIRA ARIAS TREATING MACHINE OPERATOR-CUTTING AND BONING SUPERVISOR Facility:[facility] Start: 03-27-2024 End: 03-27-2024 Patient encounter procedure SHIRA ARIAS TREATING MACHINE OPERATOR-CUTTING AND BONING SUPERVISOR [facility] Procedures Date Procedure Procedure Detail Performing Clinician Start: 05-03-2025 Fluoroscopic guidance Shira Arias HOUSEHOLD APPLIANCE REPAIRER-C Work Phone: Start: 05-03-2025 Endoscopic retrograde cholangiopancreatography Shira Arias HOUSEHOLD APPLIANCE REPAIRER-C Work Phone: Start: 03-30-2025 Radionuclide study of abdomen Shira lemons HOUSEHOLD APPLIANCE REPAIRER-C Work Phone: Start: 03-18-2025 Estimated creatinine clearance Shira russo HOUSEHOLD APPLIANCE REPAIRER-C Work Phone: Start: 03-17-2025 Total cholecystectomy and exploration of common bile duct Shira Arias HOUSEHOLD APPLIANCE REPAIRER-C Work Phone: Start: 02-24-2025 Radionuclide study of abdomen Shira Ho cristo HOUSEHOLD APPLIANCE REPAIRER-C Work Phone: Start: 01-05-2025 Fibrinogen assay, quantitative Shira russo HOUSEHOLD APPLIANCE REPAIRER-C Work Phone: Start: 01-05-2025 Homocysteine measurement Shira Arias HOUSEHOLD APPLIANCE REPAIRER-C Work Phone: Comment on above: Performed at: [address] [id number] Director: Raj Dick PhD, Phone: [phone] Start: 12-16-2024 Estimated creatinine clearance Shira cuellaron HOUSEHOLD APPLIANCE REPAIRER-C Work Phone: Start: 12-15-2024 End: 12-15-2024 Endoscopic retrograde cholangiopancreatography Shira Cisnerosnirav HOUSEHOLD APPLIANCE REPAIRER-C Work Phone: Start: 12-15-2024 Fluoroscopic guidance Shira Juana HOUSEHOLD APPLIANCE REPAIRER-C Work Phone: Start: 12-14-2024 Blood culture Shira Arias HOUSEHOLD APPLIANCE REPAIRER-C Work Phone: Start: 12-14-2024 SARS-CoV-2, Influenza & RSV (PCR) Shira Arias HOUSEHOLD APPLIANCE REPAIRER-C Work Phone: Start: 12-14-2024 Urnls dip stick/tablet reagent auto microscopy Shira Juana HOUSEHOLD APPLIANCE REPAIRER-C Work Phone: Start: 12-14-2024 X-ray of chest, PA and lateral views Shira Arias HOUSEHOLD APPLIANCE REPAIRER-C Work Phone: Start: 12-14-2024 Computed tomography of abdomen and pelvis with intravenous contrast Shira Juana HOUSEHOLD APPLIANCE REPAIRER-C Work Phone: Start: 12-11-2024 End: 12-11-2024 Endoscopic retrograde cholangiopancreatography Shira Cisnerosnirav HOUSEHOLD APPLIANCE REPAIRER-C Work Phone: Start: 12-11-2024 Fluoroscopic guidance Shira Arias HOUSEHOLD APPLIANCE REPAIRER-C Work Phone: Start: 09-06-2024 Magnetic resonance cholangiopancreatography [...] Start: 05-03-2025 Endoscopic retrograde cholangiopancreatography ERCP Biliary/Pancreas [facility] Start: 05-03-2025 RF Guidance for endoscopy of Biliary ducts and Pancreatic duct-- W contrast retrograde [facility] Start: 05-03-2025 Electrocardiographic procedure [facility] Start: 05-03-2025 Patient discharge [facility] Start: 03-18-2025 Patient discharge [facility] Start: 03-18-2025 [facility] Start: 03-17-2025 Application of intermittent pneumatic compression device [facility] Start: 03-17-2025 Following clinical pathway protocol [facility] Start: 03-17-2025 Application of ice collar, cap or bag [facility] Start: 03-17-2025 Measuring intake and output [facility] Start: 03-17-2025 Admission procedure [facility] Start: 12-16-2024 Patient discharge [facility] Start: 12-16-2024 Referral to general surgeon [facility] Start: 12-16-2024 Consultation [facility] Start: 12-16-2024 Gamma glutamyl transferase measurement [facility] Start: 12-15-2024 Following clinical pathway protocol [facility] Start: 12-15-2024 Complete blood count [facility] Start: 12-14-2024 Ambulation without limitation [facility] Start: 12-14-2024 Assessment of risk of venous thromboembolism [facility] Start: 12-14-2024 Incentive spirometry [facility] Start: 12-14-2024 Insertion of catheter into peripheral vein [facility] Start: 12-14-2024 Oxygen therapy [facility] Start: 12-14-2024 Providing care according to standard [facility] Start: 12-14-2024 Referral to gastroenterology service [facility] Start: 12-14-2024 [facility] Start: 12-14-2024 Verification routine [facility] Start: 12-14-2024 Admission procedure [facility] Start: 12-14-2024 Bacteria identified in Blood by Culture Blood Culture [facility] Start: 12-14-2024 Blood culture Blood Culture [facility] Start: 12-14-2024 [facility] Start: 12-11-2024 Ercp remove calculi/debris biliary/pancreas duct ERCP REMOVE DUCT CALCULI [facility] Start: 12-11-2024 Ercp remove foreign body/stent biliary/panc duct ERCP REMOVE FORGN BODY DUCT [facility] Start: 12-11-2024 Ercp w/sphincterotomy/papillotomy ENDO CHOLANGIOPANCREATOGRAPH [facility] Start: 12-11-2024 Patient discharge [facility] Start: 09-07-2024 Patient discharge [facility] Start: 09-07-2024 Catheterization of vein [facility] Start: 09-07-2024 Oxygen therapy [facility] Start: 09-07-2024 Vital signs measurements [facility] Start: 2024 Application of intermittent pneumatic compression device [facility] Start: 2024 Ambulation without limitation [facility] Start: 2024 Assessment of risk of venous thromboembolism [facility] Start: 2024 Documentation procedure [facility] Start: 2024 Insertion of catheter into peripheral vein [facility] Start: 2024 Measuring intake and output [facility] Start: 2024 Providing care according to standard [facility] Start: 2024 Referral to gastroenterology service [facility] Start: 2024 Referral to service [facility] Start: 2024 [facility] Start: 2024 Following clinical pathway protocol [facility] Start: 2024 Admission procedure [facility] Alanine aminotransfe rase [Enzymatic activity/volume] in Serum or Plasma [facility] Albumin [Mass/volume ] in Serum or Plasma [facility] Alkaline phosphatase [Enzymatic activity/volume] in Serum or Plasma [facility] Anion gap in Serum or Plasma [facility] Bilirubin, total measurement [facility] BUN/Creatinine ratio [facility] Calcium [Mass/volume ] in Serum or Plasma [facility] Carbon dioxide, tota l [Moles/volume] in Central venous blood [facility] Carcinoembryonic Ag [Mass/volume] in Serum or Plasma [facility] Creatinine [Mass/vol ume] in Serum or Plasma [facility] CT Abdomen and Pelvi s WO and W contrast IV [facility] Erythrocyte mean cor puscular volume determination [facility] Glucose [Mass/volume ] in Serum or Plasma [facility] Hematocrit [Volume F raction] of Blood [facility] Hemoglobin [Mass/vol ume] in Blood [facility] Hepatic function panel [facility] Leukocytes [#/volume] in Blood [facility] Mean corpuscular hem oglobin concentration determination [facility] Mean corpuscular hem oglobin determination [facility] Measurement of renal function [facility] Patient referral [facility] Work Phone: Platelets [#/volume] in Blood [facility] Potassium measurement [facility] Radionuclide study of abdomen [facility] Red blood cell count [facility] Red cell distributio n width determination [facility] Serum chloride measurement [facility] Sodium measurement [facility] Total protein measurement [facility] Urea nitrogen [Mass/ volume] in Serum or Plasma [facility] Payers Date Payer Category Payer Unknown [id number] 2024 Self-pay 1985 Unknown [id number] 2.16.8 40.1.164686.3.579.2.627 1985 Unknown [id number] 2.16.8 40.1.586486.3.579.2.627 1983 Unknown [id number] 2.16.8 40.1.332965.3.579.2.627 1983 Unknown [id number] 2.16.8 40.1.102770.3.579.2.627 1983 Unknown [id number] 2.16.8 40.1.367461.3.579.2.627 1983 Unknown [id number] 2.16.8 40.1.401332.3.579.2.627 1983 Unknown [id number] 2.16.8 40.1.994703.3.579.2.627 1983 Unknown [id number] 2.16.8 40.1.899920.3.579.2.627 1983 Unknown [id number] 2.16.8 40.1.016323.3.579.2.627 Unknown [id number] 2.16.8 40.1.187003.3.579.2.462 Unknown [id number] 2.16.8 40.1.658969.3.579.2.462 Unknown [id number] 2.16.8 40.1.702101.3.579.2.462 Unknown [id number] 2.16.8 40.1.069561.3.579.2.462 Unknown [id number] 2.16.8 40.1.693668.3.579.2.462 Unknown [id number] 2.16.8 40.1.979190.3.579.2.462 Unknown [id number] 2.16.8 40.1.993968.3.579.2.462 Unknown [id number] 2.16.8 40.1.451137.3.579.2.462 Unknown [id number] 2.16.8 40.1.618647.3.579.2.462 Unknown [id number] 2.16.8 40.1.550409.3.579.2.462 Unknown [id number] 2.16.8 40.1.579860.3.579.2.462 Unknown [id number] 2.16.8 40.1.895306.3.579.2.462 Unknown [id number] 2.16.8 40.1.573987.3.579.2.462 Unknown [id number] 2.16.8 40.1.653097.3.579.2.462 Unknown [id number] 2.16.8 40.1.943886.3.579.2.462 Unknown [id number] 2.16.8 40.1.683083.3.579.2.462 Unknown [id number] 2.16.8 40.1.660270.3.579.2.462 Unknown [id number] 2.16.8 40.1.588812.3.579.2.462 Unknown [id number] 2.16.8 40.1.439309.3.579.2.462 Unknown [id number] 2.16.8 40.1.447348.3.579.2.462 Unknown [id number] 2.16.8 40.1.569633.3.579.2.462 Unknown [id number] 2.16.8 40.1.020984.3.579.2.462 Unknown [id number] 2.16.8 40.1.461519.3.579.2.462 Unknown [id number] 2.16.8 40.1.565799.3.579.2.462 Unknown [id number] 2.16.8 40.1.920211.3.579.2.462 Unknown [id number] 2.16.8 40.1.493156.3.579.2.462 Unknown [id number] 2.16.8 40.1.033590.3.579.2.462 Unknown [id number] 2.16.8 40.1.844430.3.579.2.462 Unknown [id number] 2.16.8 40.1.895447.3.579.2.462 Unknown [id number] 2.16.8 40.1.690690.3.579.2.462 Unknown [id number] 2.16.8 40.1.679927.3.579.2.462 Unknown [id number] 2.16.8 40.1.151641.3.579.2.462 Unknown [id number] 2.16.8 40.1.307398.3.579.2.462 Unknown [id number] 2.16.8 40.1.561960.3.579.2.462 Unknown [id number] 2.16.8 40.1.584333.3.579.2.462 Unknown [id number] 2.16.8 40.1.060723.3.579.2.462 Social History Date Type Detail Facility Start: 01-29-2024 End: 04-27-2025 Tobacco smoking status Never smoked tobacco (finding) [facility] Start: 1985 Sex Assigned At Male A [facility] Start: 12-11-2024 End: 01-05-2025 Sex Male (finding) [facility] Medical Equipment Procedure Code Equipment Code Equipment Origin al Text Equipment Identifier Dates Total cholecystectomy with exploration of common bile duct GAS APPLIANCE SERVICER,CLIP 5MM LIGAMAX FDA Start: 03-17-2025 Total cholecystectomy with exploration of common bile duct CLIP,HEMOLOCK MED VAL FDA Start: 03-17-2025 Total cholecystectomy with exploration of common bile duct CLIP,HEMOLOCK MED WEROBERT FDA Start: 03-17-2025 Total cholecystectomy with exploration of common bile duct Plant polysaccharide haemostatic agent, bioabsorbable ()[id number] FDA Start: 03-17-2025 Total cholecystectomy with exploration of common bile duct GAS APPLIANCE SERVICER,CLIP 5MM LIGAMAX FDA Start: 03-17-2025 Total cholecystectomy with exploration of common bile duct CLIP,HEMOLOCK ISRAEL WECK FDA Start: 03-17-2025 Total cholecystectomy with exploration of common bile duct CLIP,HEMOLOCK MED WECK FDA Start: 03-17-2025 Total cholecystectomy with exploration of common bile duct GAS APPLIANCE SERVICER,CLIP 5MM LIGAMAX FDA Start: 03-17-2025 Total cholecystectomy with exploration of common bile duct CLIP,HEMOLOCK ISRAEL WECK FDA Start: 03-17-2025 Total cholecystectomy with exploration of common bile duct CLIP,HEMOLOCK MED WECK FDA Start: 03-17-2025 Total cholecystectomy with exploration of common bile duct GAS APPLIANCE SERVICER,CLIP 5MM LIGAMAX FDA Start: 03-17-2025 Total cholecystectomy with exploration of common bile duct CLIP,HEMOLOROBERT WOOD WECK FDA Start: 03-17-2025 Total cholecystectomy with exploration of common bile duct CLIP,HEMOLOCK ISRAEL WECK FDA Start: 03-17-2025 Total cholecystectomy with exploration of common bile duct GAS APPLIANCE SERVICER,CLIP 5MM LIGAMAX FDA Start: 03-17-2025 Total cholecystectomy with exploration of common bile duct CLIP,HEMOLOCK ISRAEL WECK FDA Start: 03-17-2025 Total cholecystectomy with exploration of common bile duct CLIP,HEMOLOCK ISRAEL WECK FDA Start: 03-17-2025 Total cholecystectomy with exploration of common bile duct GAS APPLIANCE SERVICER,CLIP 5MM LIGAMAX FDA Start: 03-17-2025 Total cholecystectomy with exploration of common bile duct CLIP,HEMOLOCK ISRAEL WECK FDA Start: 03-17-2025 Total cholecystectomy with exploration of common bile duct CLIP,HEMOLOCK MED WECK FDA Start: 03-17-2025 ERCP (endoscopic retrograde cholangiopancreatograp hy) Polymeric biliary stent, non-bioabsorbable ()[id number] FDA Start: 09-05-2024 ERCP (endoscopic retrograde cholangiopancreatograp hy) Polymeric biliary stent, non-bioabsorbable ()[id number] FDA Start: 09-05-2024 ERCP (endoscopic retrograde cholangiopancreatograp hy) ([id number]) Polymeric biliary stent, non-bioabsorbable ()[id number] FDA Start: 09-05-2024 ERCP (endoscopic retrograde cholangiopancreatograp [...] Result Facility 03-18-2025 Functional status Bathroom Privilege [facility] Work Phone: 12-16-2024 Functional status Ambulates [facility] Work Phone: 09-07-2024 Functional status Up ad jaimee [facility] Work Phone: Mental Status Date Assessment Result Facility 05-03-2025 Cognitive function Voice/Name [facility] Work Phone: 03-18-2025 Cognitive function Voice/Name [facility] Work Phone: 12-16-2024 Cognitive function Voice/Name [facility] Work Phone: 12-14-2024 Cognitive function Level Of Cons ciousness Awake;Alert;Appropriate;Follow s Commands [facility] Work Phone: 12-11-2024 Cognitive function Touch/Shaking [facility] Work Phone: 09-07-2024 Cognitive function Voice/Name [facility] Work Phone: Clinical Notes 01-29-2024 to 05-03-2025 Note Date & Type Note Facility 05-03-2025 Consult note [facility] 05-03-2025 Consult note Note Date/Time May 03, 2025 11:43am [facility] Medical Records Department [address] [place] [address] Pre-Anesthesia Evaluation 05/03/25 1142 MR#: [id number] Acct: [id number] Name: DIANE CONNORS Rep #:[id number] : 1985 39 From: Rafael Hooper MD PCP: AGUILAR Giles Status:REG S DC Y Race: C Location: [place] [address] ASA Classification* ASA Classification ASA Classification: 2 [...] stent pull. 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 History - executive legal secretary: Anesthesia History - executive legal secretary Hx Hospitalization Yes: 08/2024 ERCP 04/27/25 15:02 [...] take am of surgery PONV PONV - executive legal secretary: PONV - executive legal secretary Female No 04/27/25 15:02 HX of Motion [...] 03/17/25 19:52 Respiratory Assessment Respiratory Assessment - executive legal secretary: Respiratory Tract Infection Hx - executive legal secretary Hx Respiratory Tract Infection No 04/27/25 15:02 STOP Sleep Apnea STOP Sleep Apnea - executive legal secretary: STOP Sleep Apnea - executive legal secretary Hx Hypertension No 04/27/25 15:02 Hx Sleep [...] Tobacco Use History Tobacco Use History - executive legal secretary: Tobacco Use History - executive legal secretary Tobacco Use Smoking Status Never smoker 04/27/25 15:02 Hx Tobacco Use No 04/27/25 15:02 Years Smoking Packs Smoked per Day Smoking Cessation Date was within the last 15 years Hx Smoking Cessation Date Hx Smoking Cessation Counseling Hematologic Medial History Hematologic Hx - executive legal secretary: Hematologic Medical Hx - investment specialist Hx of Blood Transfusion Yes 04/27/25 15:02 [...] confused, unrespo /Reproduction History /Reproductive History - executive legal secretary: /Reproductive Hx- executive legal secretary Hx Now No 04/27/25 15:02 Gestational Age [...] MD Cosigner Signature: Date CC: ~ Signed [facility] Work Phone: 1(330) 641-758908-04-2025 Consult note [facility] Medical Records Department [address] [place] [address] Anesthesia Postop Eval I 05/03/25 1341 MR#: [id number] Acct: [id number] Name: DIANE CONNORS Rep #:[id number] : 1985 39 From: Hipolito Rasheed PCP: ROLY GilesC Status:REG S DC Y Race: C Location: [place] [address] Anesthesia: Postop Eval I Current Vital Signs [...] Hipolito Marrero Signature: Date CC: ~ Signed [facility]08-04-2025 Procedure note [facility] Medical Records Department [address] [place] [address] ERCP Report MR#: [id number] Acct: [id number] Name: DIANE CONNORS Rep #:[id number] : 1985 39 From: Denys Babin DO [...] hours 12 minutes 36 seconds Findings: The food sales clerk film was normal. A biliary stent was visible on the food sales clerk film. The esophagus was successfully intubated under [...] 7 days. Procedure Code(s): --- Professional --- 00876, Endoscopic retrograde cholangiopancreatography (ERCP); with removal of foreign body(s) or stent(s) from biliary/pancreatic duct(s) 76719, Endoscopic retrograde cholangiopancreatography (ERCP); with removal of calculi/debris from biliary/pancreatic duct(s) 71267, Endoscopic retrograde cholangiopancreatography (ERCP); with sphincterotomy/papillotomy 14674, 26, Endoscopic catheterization of the biliary ductal system, radiological supervision and interpretation CPT copyright 2021 [employer]. All rights reserved. The codes documented in this report are preliminary and upon sample maker hand review may be revised to meet current compliance requirements. Denys Babin DO 05/03/2025 1:35:07 PM This report has been signed electronically. Number of Addenda: 0 Note Initiated On: 05/03/2025 12:46 PM 05/03/25 1335 Date _ Denys Babin DO Cosigner Signature: Date (if indicated) CC: HOUSEHOLD APPLIANCE REPAIRERGarrison Arias; Denys Babin DO ~ Date Dictated: 05/03/25 1246 Date Transcribed: Energy Trader: RF Signed [facility]08-04-2025 Procedure note [facility] Medical Records Department [address] [place], [place] [id number] Provation Physician Letter MR#: [id number] Acct: [id number] Name: DIANE CONNORS Rep #:[id number] : 1985 39 From: Denys Babin DO [...] ~ Date Dictated: 05/03/25 1246 Date Transcribed: Energy Trader: RF Signed [facility]08-04-2025 History and physical note [facility] Medical Records Department [address] [place] [address] History & Physical Exam 05/03/25 1247 MR#: [id number] Acct: [id number] Name: DIANE CONNORS Rep #:[id number] : 1985 39 From: Denys Babin DO PCP: AGUILAR Giles Status:REG S DC Location: [place] [address] HPI - General General Date of Admission: 05/03/25 Date of Service: 05/03/25 Chief Complaint: Biliary stent removal HPI Narrative DIANE CONNORS, is a 39 M who presents today for ERCP with stent removal. Patient recently underwentERCP with stone removal and stent placement. Last month he underwent elective cholecystectomy. Patient is doing well after procedure. He comes back in for stent removal. [facility] Medical History Bacteremia due to Gram-negative bacteria [...] is a 39-year-old male who presented to [facility] ED on 12/14/2024 with fevers and [...] CC: AGUILAR Arias; Denys Friend, DO~ Signed [facility]08-04-2025 Consult note [facility] Medical Records Department [address] [place] [address] Pre-Anesthesia Evaluation 05/03/25 1142 MR#: [id number] Acct: [id number] Name: DIANE CONNORS Rep #:[id number] : 1985 39 From: Rafael Hooper MD PCP: AGUILAR Giles Status:REG S DC Y Race: C Location: [place] [address] ASA Classification* ASA Classification ASA Classification: 2 [...] stent pull. 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 History - executive legal secretary: Anesthesia History - executive legal secretary Hx Hospitalization Yes: 08/2024 ERCP 04/27/25 15:02 [...] take am of surgery PONV PONV - executive legal secretary: PONV - executive legal secretary Female No 04/27/25 15:02 HX of Motion [...] 03/17/25 19:52 Respiratory Assessment Respiratory Assessment - executive legal secretary: Respiratory Tract Infection Hx - executive legal secretary Hx Respiratory Tract Infection No 04/27/25 15:02 STOP Sleep Apnea STOP Sleep Apnea - executive legal secretary: STOP Sleep Apnea - executive legal secretary Hx Hypertension No 04/27/25 15:02 Hx Sleep [...] Tobacco Use History Tobacco Use History - executive legal secretary: Tobacco Use History - executive legal secretary Tobacco Use Smoking Status Never smoker 04/27/25 15:02 Hx Tobacco Use No 04/27/25 15:02 Years Smoking Packs Smoked per Day Smoking Cessation Date was within the last 15 years Hx Smoking Cessation Date Hx Smoking Cessation Counseling Hematologic Medial History Hematologic Hx - executive legal secretary: Hematologic Medical Hx - investment specialist Hx of Blood Transfusion Yes 04/27/25 15:02 [...] confused, unrespo /Reproduction History /Reproductive History - executive legal secretary: /Reproductive Hx- executive legal secretary Hx Now No 04/27/25 15:02 Gestational Age [...] MD Cosigner Signature: Date CC: ~ Signed [facility]07-01-2025 Nuclear medicine Diagnostic study note [facility] Services [address] [place], [place] [address] Hepatobilliary Imaging MR#: [id number] Acct: [id number] Name: CONNORSDIANE A Rep #: [id number] : 1985 M 39 From: Nick Carter MD PCP: AGUILAR Giles Status: JOSE MIGUEL POLO Study:Hepatobilliary Imaging Date of Exam: 03/30/25 Exam# [id number] Ordering Dr: Bing Temple PA-C ADDENDUM by Dr. Seth Carter MD on 03/30/25 at 1558 No evidence biliary leak is seen. Reading Location: [place] [address] 03/30/25 1558 Date cc: AGUILAR Arias; SERGIO [...] Satisfactory hepatic uptake and excretion. Reading Location: [place] [address] CC: AGUILAR Airas; SERGIO Temple ~ Energy Trader: Signed [facility]06-26-2025 Progress [facility] [address] [place] [address]. [address] [place] [address] OFFICE VISIT Date of Service: 03/25/25 MR#: [id number] Acct: [id number] Name: DIANE CONNORS Enma Rep #: [id number] : 1985 Provider: SERGIO Temple Age/Sex: 39/M Location: [facility] Status: Signed Intake Vital Signs 03/17/25 19:52 [...] Op Diagnoses Status post laparoscopic cholecystectomy Z90.49 [facility] Medical History History of biliary stent insertion [...] AGUILAR Arias; Dr. Camron Shoemaker MD ~ [facility]06-26-2025 Progress note Author Bing Temple [facility] Services Note Date/Time March 25, 2025 1:49 pm [facility] [address] [place] [address] OFFICE VISIT Date of Service: 03/25/25 MR#: [id number] Acct: [id number] Name: DIANE CONNORS Rep #: [id number] : 1985 Provider: SERGIO Temple Age/Sex: 39/M Location: [facility] Status: Signed Intake Vital Signs 03/17/25 19:52 [...] Op Diagnoses Status post laparoscopic cholecystectomy Z90.49 [facility] Medical History History of biliary stent insertion [...] AGUILAR Arias; Dr. Camron Shoemaker MD ~ [facility] Work Phone: 1(594) 863-903706-19-2025 Consult note [facility] Medical Records Department [address] [place] [address] Anesthesia Postop Eval II 03/17/25 1638 MR#: [id number] Acct: [id number] Name: DIANE CONNORS Rep #:[id number] : 1985 39 From: Dafne Sims CRNA PCP: AGUILAR Giles Status:REG S DC Y Race: C Location: [place] [address] Anesthesia Postop Eval I Sum Postop Eval Completion status Anesthesia document: Postop Eval 1 completed: Yes Anesthesia Postop Eval I Summary Anesthesia Postop Eval I Summary: Anesthesia Postop Eval I: Assessment Summary Airway patent Yes 03/17/25 16:38 CYTOLOGY TEACHER.CSIR Spontaneous unlabored Yes 03/17/25 16:38 CYTOLOGY TEACHER.CSIR respirations Mental status nausea No 03/17/25 16:38 CYTOLOGY TEACHER.CSIR Vomiting No 03/17/25 16:38 CYTOLOGY TEACHER.CSIR Anesthesia Postop Eval I: Fluid Summary Crystalloid volume administer 200 03/17/25 16:38 CYTOLOGY TEACHER.CSIR (ml) Colloids volume administered ( ml) Blood Product volume administered (ml) Total IV fluid infused 200 03/17/25 16:38 CYTOLOGY TEACHER.CSIR Anesthesia Postop Eval I: Summary Notes Anesthesia Complication No 03/17/25 16:38 CYTOLOGY TEACHER.CSIR Anesthesia Complication Comment: Post-operative progress note Anesthesia: Postop Eval II Evaluation Mental status: Awake Pain Level: 1 nausea: No Vomiting: No 03/17/25 1638 a CYTOLOGY TEACHER> Date _ Dafne Sirca CYTOLOGY TEACHER Cosigner Signature: Date CC: ~ Signed [facility]06-19-2025 Consult note [facility] Medical Records Department [address] [place] [address] Anesthesia Postop Eval I 03/17/251652 MR#: [id number] Acct: [id number] Name: DIANE CONNORS Rep #:[id number] : 1985 39 From: Abimael parra CRNA PCP: AGUILAR Giles Status:REG S DC Y Race: C Location: [place] [address] Anesthesia: Postop Eval I Current Vital Signs [...] Postop Eval 1 completed: Yes 03/17/251652 ero CYTOLOGY TEACHER> Date _ Abimael Doll CYTOLOGY TEACHER Cosigner Signature: Date CC: ~ Signed [facility]06-19-2025 Progress note [facility] Medical Records Department [address] [place] [address] Progress Note - Surgery 03/18/25 0700 MR#: [id number] Acct: [id number] Name: DIANE CONNORS Rep #:[id number] : 1985 39 From: Camron Love PCP: Shira Arias NP-C Status:ADM I N Location: [place] [address] Subjective Subjective Patient seen and examined during [...] 74.4 H, Lymph % (Auto) 16.5 L, [place] % (Auto) 8.4, Eos % (Auto) 0.0, [...] Shoemaker MD General Surgery Endocrine Surgery Pager: [facility] [address] [place] [address], [address] [place] [id number] Office: [phone] Charges/Coding Visit Charges Inpatient E&M: 98080 Subs Hosp L2 03/18/25 1722 Cosigner Signature (if applicable): CC: ~ Signed [facility]06-19-2025 Discharge summary [facility] Medical Records Department [address] [place] [address] Instructions for Home/Discharge Instructions 03/18/25 1155 MR#: [id number] Acct: [id number] Name: DIANE CONNORS Rep #:[id number] : 1985 39 From: Camron Lvoe PCP: AGUILAR Giles Status:ADM I N Discharge [...] Referrals / Follow Up: Shira Arias NP, HOUSEHOLD APPLIANCE REPAIRER-C [Primary Care Provider] - Disposition Disposition (needs filled in before D/C Order can be placed): Home, Self Care 03/18/25 1720Micember Shoemaker MD CC: ELLI-C Shira Arias; Dr. Gray López MD ~ Signed [facility]06-19-2025 Discharge summary Author Camron Shoemaker [facility] Note Date/Time March 18, 2025 5:20 pm [facility] Medical Records Department [address] [place] [address] Instructions for Home/Discharge Instructions 03/18/25 1155 MR#: [id number] Acct: [id number] Name: DIANE CONNORS Rep #:[id number] : 1985 39 From: Camron Love PCP: [...] Referrals / Follow Up: Shira Arias NP, HOUSEHOLD APPLIANCE REPAIRER-C [Primary Care Provider] - Disposition Disposition (needs filled in before D/C Order can be placed): Home, Self Care 03/18/25 1720<Electronically signed by Camron Shoemaker MD>Camron Shoemaker MD CC: AGUILAR Arias; Dr. Gray López MD ~ Signed [facility] Work Phone: 1(930) 727-844206-19-2025 [facility]06-19-2025 Progress note Author Camron Shoemaker [facility] Note Date/Time March 18, 2025 5:22 pm [facility] Medical Records Department [address] [place] [address] Progress Note - Surgery 03/18/25 0700 MR#: [id number] Acct: [id number] Name: DIANE CONNORS Rep #:[id number] : 1985 39 From: Camron Love PCP: Shira Arias HOUSEHOLD APPLIANCE REPAIRER-C Status:ADM I N Location: [place] [address] Subjective Subjective Patient seen and examined during [...] 74.4 H, Lymph % (Auto) 16.5 L, [place] % (Auto) 8.4, Eos % (Auto) 0.0, [...] Shoemaker MD General Surgery Endocrine Surgery Pager: [facility] [address] [place] [address], [address] [place] [address] Office: [phone] Charges/Coding Visit Charges Inpatient E&M: 98298 Subs Hosp L2 03/18/25 1722 <Electronically signed by Camron Shoemaker MD> Cosigner Signature (if applicable): CC: ~ Signed [facility] Work Phone: 1(838) 305-392106-18-2025 Consult note Author Abimael Doll [facility] Note Date/Time March 18, 2025 6:36 pm [facility] Medical Records Department [address] [place] [address] Anesthesia Postop Eval I 03/17/25 1653 MR#: [id number] Acct: [id number] Name: DOROTHY CONNORSKelly Norwood Rep #:[id number] : 1985 39 From: Abimael parra CRNA PCP: AGUILAR Giles Status:REG S DC Y Race: C Location: [place] [address] Anesthesia: Postop Eval I Current Vital Signs [...] 03/17/25 1653 <Electronically signed by Abimael hines CYTOLOGY TEACHER> Date _ Abimael Doll CYTOLOGY TEACHER Cosigner Signature: Date CC: ~ Signed [facility] Work Phone: 1(495) 285-880706-18-2025 Consult note [facility] Note Date/Time March 17, 2025 4:38 pm [facility] Medical Records Department [address] [place] [address] Anesthesia Postop Eval I 03/17/25 1607 MR#: [id number] Acct: [id number] Name: DIANE CONNORS Rep #:[id number] : 1985 39 From: Dafne Sims CRNA PCP: AGUILAR Giles Status:REG S DC Y Race: C Location: [place] [address] Anesthesia: Postop Eval I Current Vital Signs [...] 03/17/25 1638 <Electronically signed by Dafne norwood CYTOLOGY TEACHER> Date _ Dafne Sims CYTOLOGY TEACHER Cosigner Signature: Date CC: ~ Signed [facility] Work Phone: 1(340) 755-601706-18-2025 Consult note Author Dafne Sims [facility] Note Date/Time March 18, 2025 6:36 pm [facility] Medical Records Department [address] [place] [address] Anesthesia Postop Eval II 03/17/25 1638 MR#: [id number] Acct: [id number] Name: DIANE CONNORS Rep #:[id number] : 1985 39 From: Dafne Sims CRNA PCP: Shira Arias NP-C Status:REG S DC Y Race: C Location: [place] [address] Anesthesia Postop Eval I Sum Postop Eval Completion status Anesthesia document: Postop Eval 1 completed: Yes Anesthesia Postop Eval I Summary Anesthesia Postop Eval I Summary: Anesthesia Postop Eval I: Assessment Summary Airway patent Yes 03/17/25 16:38 CYTOLOGY TEACHER.CSIR Spontaneous unlabored Yes 03/17/25 16:38 CYTOLOGY TEACHER.CSIR respirations Mental status nausea No 03/17/25 16:38 CYTOLOGY TEACHER.CSIR Vomiting No 03/17/25 16:38 CYTOLOGY TEACHER.CSIR Anesthesia Postop Eval I: Fluid Summary Crystalloid volume administer 200 03/17/25 16:38 CYTOLOGY TEACHER.CSIR (ml) Colloids volume administered ( ml) Blood Product volume administered (ml) Total IV fluid infused 200 03/17/25 16:38 CYTOLOGY TEACHER.CSIR Anesthesia Postop Eval I: Summary Notes Anesthesia Complication No 03/17/25 16:38 CYTOLOGY TEACHER.CSIR Anesthesia Complication Comment: Post-operative progress note Anesthesia: Postop Eval II Evaluation Mental status: Awake Pain Level: 1 nausea: No Vomiting: No 03/17/25 1638 <Electronically signed by Dafne norwood CRNA> Date _ Dafne Sims CYTOLOGY TEACHER Cosigner Signature: Date CC: ~ Signed [facility] Work Phone: 1(403) 218-302206-18-2025 Evaluation note* Diagnosis Onset Date Resolution Status [...] 11:31am Hyperbilirubinemia inactive May 03, 2025 11:31am [facility] Work Phone: 1(635) 884-265106-18-2025 Consult note [facility] Medical Records Department [address] [place] [address] Anesthesia Postop Eval I 03/17/25 1607 MR#: [id number] Acct: [id number] Name: CONNORSDIANE Rep #:[id number] : 1985 39 From: Dafne Sims CYTOLOGY TEACHER PCP: AGUILAR Giles Status:REG S DC Y Race: C Location: [place] [address] Anesthesia: Postop Eval I Current Vital Signs Temperature: 97.2 F Pulse Rate: 77 Blood Pressure: 154/100 Respiratory Rate: 16 Pulse Ox: 98 Assessment Airway patent: Yes Spontaneous unlabored respirations: Yes nausea: No Vomiting: No Anesthesia Complication: No Fluid Hydration Crystalloid volume administer (ml): 200 Total IV fluid infused: 200 Progress Note Anesthesia document: Postop Eval 1 completed: Yes 03/17/25 1638 a CYTOLOGY TEACHER> Date _ Dafne Sims CYTOLOGY TEACHER Cosigner Signature: Date CC: ~ Signed [facility]06-18-2025 History and physical note Author Camron Shoemaker [facility] Note Date/Time March 17, 2025 11:4 8am [facility] Medical Records Department [address] [place] [address] History & Physical Exam 03/17/25 1147 MR#: [id number] Acct: [id number] Name: DIANE CONNORS Rep #:[id number] : 1985 39 From: Camron Love PCP: AGUILAR Giles Status:REG S DC Location: [place] [address]- History and Physical Date of Admission: 03/17/25 Date of Service: 12/31/24 MR#: [id number] Acct: [id number] Name: DIANE CONNORS Rep #: [id number] : 1985 Provider: Dr. Camron Shoemaker MD Age/Sex: 39/M Location: [facility] Status: Signed Intake Vital Signs 12/15/2513:00 12/31/2509:04 Height 5 ft 10.08 in 5 ft 10 in Weight: 204 lb 8 oz BMI 29.3 BP 100/70 Blood Pressure Location Rt brachial Position Sitting Respiration 18 Pulse 67 Pulse Source Monitor Temp 97.6 F L Temp Source Temporal Oxygen Delivery Method room air Intake Visit Reasons: GALLBLADDER, [facility] FU Chief Complaint: Gallbladder ERCP 12/15/24 Cnc Mechanic Required: No Accompanied by: Unknown Is patient [...] for recurrence. Given patient's personal experience this ntwna-wyf-lhvumi appears clear to them. Patient's spouse does [...] a specimen as requested by both Drs. 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 Camron Shoemaker MD~ Signed [facility] Work Phone: 1([phone]) 537-468206-18-2025 Consult note [facility] Note Date/Time March 17, 2025 11:1 5am [facility] Medical Records Department [address] [place] [address] Pre-Anesthesia Evaluation 03/17/25 1110 MR#: [id number] Acct: [id number] Name: DIANE CONNORS Rep #:[id number] : 1985 39 From: Kilo Mtz MD PCP: AGUILAR Giles Status:REG S DC Y Race: C Location: [facility]17-1 ASA Classification* ASA Classification ASA [...] LIVER BIOPSY 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 History - executive legal secretary: Anesthesia History - executive legal secretary Hx Hospitalization Yes: 08/2024 ERCP 03/03/25 10:05 [...] take am of surgery PONV PONV - executive legal secretary: PONV - executive legal secretary Female No 03/03/25 10:05 HX of Motion [...] 03/17/25 10:57 Respiratory Assessment Respiratory Assessment - executive legal secretary: Respiratory Tract Infection Hx - executive legal secretary Hx Respiratory Tract Infection No 03/03/25 10:05 STOP Sleep Apnea STOP Sleep Apnea - executive legal secretary: STOP Sleep Apnea - executive legal secretary Hx Hypertension No 03/03/25 10:05 Hx Sleep [...] Tobacco Use History Tobacco Use History - executive legal secretary: Tobacco Use History - executive legal secretary Tobacco Use Smoking Status Never smoker 03/03/25 10:05 Hx Tobacco Use No 03/03/25 10:05 Years Smoking Packs Smoked per Day Smoking Cessation Date was within the last 15 years Hx Smoking Cessation Date Hx Smoking Cessation Counseling Hematologic Medial History Hematologic Hx - executive legal secretary: Hematologic Medical Hx - investment specialist Hx of Blood Transfusion No 03/03/25 10:05 [...] confused, unrespo /Reproduction History /Reproductive History - executive legal secretary: /Reproductive Hx- executive legal secretary Hx Now Gestational Age (in weeks): EDC: [...] MD Cosigner Signature: Date CC: ~ Signed [facility] Work Phone: 1(823) 606-890606-18-2025 History and physical note [facility] Medical Records Department [address] [place] [address] History & Physical Exam 03/17/25 1147 MR#: [id number] Acct: [id number] Name: DIANE CONNORS Rep #:[id number] : 1985 39 From: Camron Love PCP: AGUILAR Giles Status:REG S NM Location: [place] [address] History and Physical Date of Admission: 03/17/25 Date of Service: 12/31/24 MR#: [id number] Acct: [id number] Name: DIANE CONNORS Rep #: [id number] : 1985 Provider: Dr. Camron Shoemaker MD Age/Sex: 39/M Location: [facility] Status: Signed Intake Vital Signs 12/15/2513:00 12/31/2509:04 Height 5 ft 10.08 in 5 ft 10 in Weight: 204 lb 8 oz BMI 29.3 BP 100/70 Blood Pressure Location Rt brachial Position Sitting Respiration 18 Pulse 67 Pulse Source Monitor Temp 97.6 F L Temp Source Temporal Oxygen Delivery Method room air Intake Visit Reasons: GALLBLADDER, [facility] FU Chief Complaint: Gallbladder ERCP 12/15/24 Cnc Mechanic Required: No Accompanied by: Unknown Is patient [...] for recurrence. Given patient's personal experience this zvqpe-umr-ynxymu appears clear to them. 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 Camron Shoemaker MD~ Signed [facility]06-18-2025 [facility]06-18-2025 Consult note [facility] Medical Records Department [address] [place] [address] Pre-Anesthesia Evaluation 03/17/25 1110 MR#: [id number] Acct: [id number] Name: DIANE CONNORS Rep #:[id number] : 1985 39 From: Kilo Mtz MD PCP: AGUILAR Giles Status:REG S DC Y Race: C Location: [place] [address] ASA Classification* ASA Classification ASA Classification: 2 [...] LIVER BIOPSY 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 History - executive legal secretary: Anesthesia History - executive legal secretary Hx Hospitalization Yes: 08/2024 ERCP 03/03/25 10:05 [...] take am of surgery PONV PONV - executive legal secretary: PONV - executive legal secretary Female No 03/03/25 10:05 HX of Motion [...] 03/17/25 10:57 Respiratory Assessment Respiratory Assessment - executive legal secretary: Respiratory Tract Infection Hx - executive legal secretary Hx Respiratory Tract Infection No 03/03/25 10:05 STOP Sleep Apnea STOP Sleep Apnea - executive legal secretary: STOP Sleep Apnea - executive legal secretary Hx Hypertension No 03/03/25 10:05 Hx Sleep [...] Tobacco Use History Tobacco Use History - executive legal secretary: Tobacco Use History - executive legal secretary Tobacco Use Smoking Status Never smoker 03/03/25 10:05 Hx Tobacco Use No 03/03/25 10:05 Years Smoking Packs Smoked per Day Smoking Cessation Date was within the last 15 years Hx Smoking Cessation Date Hx Smoking Cessation Counseling Hematologic Medial History Hematologic Hx - executive legal secretary: Hematologic Medical Hx - investment specialist Hx of Blood Transfusion No 03/03/25 10:05 [...] confused, unrespo /Reproduction History /Reproductive History - executive legal secretary: /Reproductive Hx- executive legal secretary Hx Now Gestational Age (in weeks): EDC: [...] MD Cosigner Signature: Date CC: ~ Signed [facility]05-28-2025 Nuclear medicine Diagnostic study note [facility] Imaging Services [address] [place] [address] Hepatobilliary Imaging MR#: [id number] Acct: [id number] Name: DIANE CONNORS Rep #: [id number] : 1985 M 39 From: Franco Soto MD PCP: AGUILAR Giles Status: JOSE MIGUEL POLO Study:Hepatobilliary Imaging Date of Exam: 02/24/25 Exam# [id number] Ordering Dr: Michela Sal NP PROCEDURE: HEPATOBILLIARY [...] FOR ACUTE CHOLECYSTITIS Reading Location: [place] [address] CC: AGUILAR Sal; AGUILAR Arias ~ Energy Trader: Signed [facility]03-19-2025 Consult note [facility] Medical Records Department [address] [place] [address] Consultation - Infectious Dx 12/16/24 1613 MR#: [id number] Acct: [id number] Name: DIANE CONNORS Rep #:[id number] : 1985 39 From: Jared melendrez MD PCP: Shira Arias, HOUSEHOLD APPLIANCE REPAIRER-C Status:ADM I N Location: [place] [address] Assessment & Plan Assessment/Plan (1) Bacteremia due [...] performed and neg except as noted above. [facility] Medical History Overweight (BMI 25.0-29.9) No pertinent [...] % (Auto) 61.0, Lymph % (Auto) 20.8, [place] % (Auto) 13.5 H, Eos % (Auto) [...] Left Blood Culture - Preliminary GNR lactose continuous churn buttermaker 12/14/24 12:25 Blood Culture (Wb) - Anticubital Left Blood Culture - Preliminary GNR lactose continuous churn buttermaker Alpha Hemolytic Streptococcus Imaging Radiology Impression Endo Retro Cholangiopancreatogram 12/15/24 17:35 IMPRESSION: Fluoroscopy during ERCP as above. Reading Location: [id number] 12/16/24 1617 Cosigner Signature (if applicable): CC: AGUILAR Arias~ Signed [facility]03-19-2025 Discharge summary Author Francesco Lui [facility] Note Date/Time December 16, 2024 2:1 6pm [facility] Medical Records Department [address] [place] [address] Discharge Summary 12/16/24 1413 MR#: [id number] Acct: [id number] Name: DIANE CONNORS Rep #:[id number] : 1985 39 From: Francesco Love PCP: AGUILAR Giles Status:ADM I N Location: [place] [address] Providers Date of Admission: 12/14/24 Date of Discharge: 12/16/24 Primary Care Physician: AGUILAR Giles Consultations 12/14/24 16:30 Consult: Gastroenterology Routine Consulting Provider: [facility] Reason for Consult: recent ERCP, elevated [...] is a 39-year-old male who presented to [facility] ED on 12/14/2024 with fevers and [...] % (Auto) 61.0, Lymph % (Auto) 20.8, [place] % (Auto) 13.5 H, Eos % (Auto) [...] Left Blood Culture - Preliminary GNR lactose continuous churn buttermaker 12/14/24 12:25 Blood Culture (Wb) - Anticubital Left Blood Culture - Preliminary GNR lactose continuous churn buttermaker Alpha Hemolytic Streptococcus 12/14/24 12:25 Mucosa - Nose SARS-CoV-2, Influenza & RSV (PCR) - Final Radiography Diagnostic Testing: Radiology Impression Endo Retro Cholangiopancreatogram 12/15/24 17:35 IMPRESSION: Fluoroscopy during ERCP as above. Reading Location: [id number] D/C Instructions DC O2, CPAP, BIPAP Needs [...] Jared Arevalo Instructions Additional Instructions / Restrictions: Ydjc-rcp-mzqqymw Tylenol 500 mg every 6 hourly for [...] (Follow- up liver chemistry) Shira Arias NP, HOUSEHOLD APPLIANCE REPAIRER-C [Primary Care Provider] - Disposition Disposition (needs filled in before D/C Order can be placed): Home, Self Care Charges/Coding Visit Charges Inpatient E&M: 30475 Disch Hosp >30min 12/16/24 1416 <Electronically signed by Francesco Lui MD> Cosigner Signature (if applicable): CC: AGUILAR Arias; Dr. Camron Shoemaker MD; Dr. Francesco Lui MD; Dr. Jared Arevalo MD; Denys Babin DO~ Signed [facility] Work Phone: 1(997) 997-184903-19-2025 Discharge summary Author Francesoc Lui [facility] Note Date/Time December 16, 2024 2:1 3pm [facility] Medical Records Department [address] [place] [address] Instructions for Home/Discharge Instructions 12/16/24 1405 MR#: [id number] Acct: [id number] Name: DIANE CONNORS Rep #:[id number] : 1985 39 From: Francesco Love PCP: AGUILRA Giles Status:ADM I N Discharge Instructions DC O2, CPAP, BIPAP needs Home O2 Discharge instructions: No Follow Up Care Test Results: Test results from this visit will be discussed in further detail at your follow- up appointment, if applicable. Discharge Plan Admission Admit Date/Time: 12/14/24 14:45 Attending Provider: Francesco Lui Primary Care Provider: Shria Arias NP Consulting Providers: Cruz Arciniega; Camron Shoemaker; Jared Arevalo Instructions Additional Instructions / Restrictions: Xuju-ftf-dmsinaj Tylenol 500 mg every 6 hourly for [...] (Follow- up liver chemistry) Shira Arias NP, HOUSEHOLD APPLIANCE REPAIRER-C [Primary Care Provider] - Disposition Disposition (needs filled in before D/C Order can be placed): Home, Self Care 12/16/24 1413<Electronically signed by Francesco Lui MD>Francesco Lui MD CC: HOUSEHOLD APPLIANCE REPAIRERGarrison Arias; Dr. Cruz Arciniega DO; Dr. Camron Shoemaker MD; Dr. Jared Arevalo MD ~ Signed [facility] Work Phone: 1(592) 408-409303-19-2025 Consult note Author Camron Shoemaker [facility] Note Date/Time December 16, 2024 12: 25pm [facility] Medical Records Department [address] [place] [address] Consultation - Surgical 12/16/24 1211 MR#: [id number] Acct: [id number] Name: DIANE CONNORS Rep #:[id number] : 1985 39 From: Camron Love PCP: AGUILAR Giles Status:ADM I N Location: [place] [address] Assessment & Plan Assessment/Plan (1) Choledocholithiasis: PLAN: [...] for recurrence. Given patient's personal experience this hhyez-qgp-tpzoxx appears clear to them. Patient's spouse does [...] Shoemaker MD General Surgery Endocrine Surgery Pager: [facility] [address] [place] [address], [address] [place] [address] Office: [phone] HPI Consult Data Date of Consult: 12/16/24 [...] returned to normal when checked through the [facility] system and that is what prompted him to request stent removal from gastroenterology. Gastroenterology had advised against stent removal givenpatient had gallbladder still in place but at patient insistence they proceeded with stent removal. Patient has no significant past medical history aside from the above. He has nohistory of abdominal surgeries. [facility] Medical History Overweight (BMI 25.0-29.9) No pertinent [...] % (Auto) 61.0, Lymph % (Auto) 20.8, [place] % (Auto) 13.5 H, Eos % (Auto) [...] Left Blood Culture - Preliminary GNR lactose continuous churn buttermaker 12/14/24 12:25 Blood Culture (Wb) - Anticubital Left Blood Culture - Preliminary GNR lactose continuous churn buttermaker Alpha Hemolytic Streptococcus Imaging Radiology Impression Endo Retro Cholangiopancreatogram 12/15/24 17:35 IMPRESSION: Fluoroscopy during ERCP as above. Reading Location: [facility] Charges/Coding Visit Charges Inpatient E&M: 52039 Init Hosp L2 12/16/24 1225 <Electronically signed by Camron Shoemaker MD> Cosigner Signature (if applicable): CC: AGUILAR Arias~ Signed [facility] Work Phone: 1(910) 546-256503-19-2025 Discharge summary [facility] Medical Records Department [address] [place] [address] Discharge Summary 12/16/24 1413 MR#: [id number] Acct: [id number] Name: DIANE CONNORS Rep #:[id number] : 1985 39 From: Francesco Love PCP: AGUILAR Giles Status:ADM I N Location: [place] [address] Providers Date of Admission: 12/14/24 Date of Discharge: 12/16/24 Primary Care Physician: AGUILAR Giles Consultations 12/14/24 16:30 Consult: Gastroenterology Routine Consulting Provider: [facility] Reason for Consult: recent ERCP, elevated [...] is a 39-year-old male who presented to [facility] ED on 12/14/2024 with fevers and [...] % (Auto) 61.0, Lymph % (Auto) 20.8, [place] % (Auto) 13.5 H, Eos % (Auto) [...] Left Blood Culture - Preliminary GNR lactose continuous churn buttermaker 12/14/24 12:25 Blood Culture (Wb) - Anticubital Left Blood Culture - Preliminary GNR lactose continuous churn buttermaker Alpha Hemolytic Streptococcus 12/14/24 12:25 Mucosa - Nose SARS-CoV-2, Influenza & RSV (PCR) - Final Radiography Diagnostic Testing: Radiology Impression Endo Retro Cholangiopancreatogram 12/15/24 17:35 IMPRESSION: Fluoroscopy during ERCP as above. Reading Location: [facility] D/C Instructions DC O2, CPAP, BIPAP [...] Jared Arevalo Instructions Additional Instructions / Restrictions: Punc-fod-dhgpmpe Tylenol 500 mg every 6 hourly for fever more than 102 Fahrenheit Discharge Orders/Prescriptions Prescriptions: New amoxicillin-pot clavulanate 875-125 mg tablet 1 tab PO BID 7 Days Qty: 14 0RF Referrals / Follow Up: Camron Shoemaekr MD [Med Staff - Active Staff] - [...] Self Care Charges/Coding Visit Charges Inpatient E&M: 54180 Disch Hosp >30min 12/16/24 1416 Cosigner Signature (if applicable): CC: AGUILAR Arias; Dr. Camron Shoemaker MD; Dr. Francesco Lui MD; Dr. Jared Arevalo MD; Denys Babin DO~ Signed [facility]03-19-2025 Discharge summary [facility] Medical Records Department [address] [place] [address] [place] [address] Instructions for Home/Discharge Instructions 12/16/24 1405 MR#: [id number] Acct: [id number] Name: DIANE CONNORS Rep #:[id number] : 1985 39 From: Francesco Love PCP: AGUILAR Giles Status:ADM I N Discharge Instructions DC O2, CPAP, BIPAP needs Home O2 Discharge instructions: No Follow Up Care Test Results: Test results from this visit will be discussed in further detail at your follow- up appointment, if applicable. Discharge Plan Admission Admit Date/Time: 12/14/24 14:45 Attending Provider: Francesco Liu Primary Care Provider: Shira Arias NP Consulting Providers: Cruz Arciniega; Camron Shoemaker; Jared Arevalo Instructions Additional Instructions / Restrictions: Hfxy-tud-iygdbsf Tylenol 500 mg every 6 hourly for [...] MD; Dr. Jared Arevalo MD ~ Signed [facility]03-19-[facility] Consult note [facility] Medical Records Department [address] [place] [address] Consultation - Surgical 12/16/24 1211 MR#: [id number] Acct: [id number] Name: DIANE CONNORS Rep #:[id number] : 1985 39 From: Camron Love PCP: AGUILAR Giles Status:ADM I N Location: [facility]U [id number] Assessment & Plan Assessment/Plan (1) Choledocholithiasis: [...] that [facility]. Upon obtaining laboratories that showed [...] for recurrence. Given patient's personal experience this szbsq-fok-zlhvfp appears clear to them. Patient's spouse does [...] Shoemaker MD General Surgery Endocrine Surgery Pager: [facility] [address] [place] [address], [facility], [address] [place] [address] Office: [phone] HPI Consult Data Date of Consult: 12/16/24 [...] returned to normal when checked through the [facility] system and that is what prompted him to request stent removal from gastroenterology. Gastroenterology had advised against stent removal givenpatient had gallbladder still in place but at patient insistence they proceeded with stent removal. Patient has no significant past medical history aside from the above. He has nohistory of abdominalsurgeries. [facility] Medical History Overweight (BMI 25.0-29.9) No pertinent [...] % (Auto) 61.0, Lymph % (Auto) 20.8, [place] % (Auto) 13.5 H, Eos % (Auto) [...] Left Blood Culture - Preliminary GNR lactose continuous churn buttermaker 12/14/24 12:25 Blood Culture (Wb) - Anticubital Left Blood Culture - Preliminary GNR lactose continuous churn buttermaker Alpha Hemolytic Streptococcus Imaging Radiology Impression Endo Retro Cholangiopancreatogram 12/15/24 17:35 IMPRESSION: Fluoroscopy during ERCP as above. Reading Location: [facility] Charges/Coding Visit Charges Inpatient E&M: 47577 Init Hosp L2 12/16/24 1225 Cosigner Signature (if applicable): CC: AGUILAR Arias~ Signed [facility]03-18-2025 Consult note Author Gray López [facility] Note Date/Time December 15, 2024 6:4 5pm [facility] Medical Records Department [address] [place] [address] Anesthesia Postop Eval II 12/15/241844 MR#: [id number] Acct: [id number] Name: DIANE CONNORS Rep #:[id number] : 1985 39 From: Gray López MD PCP: AGUILAR Giles Status:ADM I N Y Race: C Location: [place] [address] 0-1 Anesthesia Postop Eval I Sum Postop [...] MD Cosigner Signature: Date CC: ~ Signed [facility] Work Phone: 1(925) 422-960303-18-2025 Consult note Author Gray López [facility] Note Date/Time December 15, 2024 6:4 4pm [facility] Medical Records Department [address] [place] [address] Anesthesia Postop Eval I 12/15/241842 MR#: [id number] Acct: [id number] Name: KENNEY CONNORSDAMIÁN [place] Rep #:[id number] : 1985 39 From: Gray López MD PCP: AGUILAR Giles Status:ADM I N Y Race: C Location: [place] [address] Anesthesia: Postop Eval I Current Vital Signs [...] MD Cosigner Signature: Date CC: ~ Signed [facility] Work Phone: 1(708) 721-959603-18-2025 Progress note Author Denys Babin [facility] Note Date/Time December 15, 2024 5:3 8pm [facility] Medical Records Department [address] [place] [address] Progress Note 12/15/241733 MR#: [id number] Acct: [id number] Name: DIANE CONNORS Rep #:[id number] : 1985 39 From: Denys Babin DO PCP: ROLY GilesC Status:ADM I N Location: [place] [address] Progress Note I had a long conversation [...] is a 39-year-old male who presented to [facility] ED on 12/14/2024 with fevers and [...] ERCP today. . Visit Charges Inpatient E&M: 38552 Subs Hosp L2 12/15/248 <Electronically signed by Denys Babin DO> Denys Babin DO Cosigner Signature (if applicable): CC: ~ Signed [facility] Work Phone: 1(623) 940-912503-18-2025 Radiology Diagnostic study note [facility] [address] [place] [address] ERCP Biliary/Pancreas MR#: [id number] Acct: [id number] Name: DIANE CONNORS Rep #: [id number] : 1985 M 39 From: Jadiel Lawson MD PCP: AGUILAR Giles Status: ADM I N Study:ERCP Biliary/Pancreas Date of Exam: 12/15/24 Exam# [id number] Ordering Dr: Kayleigh Babin DO PROCEDURE: ERCP [...] Fluoroscopy during ERCP as above. Reading Location: [id number] CC: AGUILAR Arias; DO Tanya Pierre Energy Trader: Signed [facility]03-18-2025 Consult note [facility] Medical Records Department [address] [place] [address] Anesthesia Postop Eval II 12/15/24 1845 MR#: [id number] Acct: [id number] Name: DIANE CONNORS Rep #:[id number] : 1985 39 From: Gray López MD PCP: AGUILAR Giles Status:ADM I N Y Race: C Location: [place] [address] 0-1 Anesthesia Postop Eval I Sum Postop [...] MD Cosigner Signature: Date CC: ~ Signed [facility]03-18-2025 Consult note [facility] Medical Records Department [address] [place] [address] Anesthesia Postop Eval I 12/15/24 1843 MR#: [id number] Acct: [id number] Name: DORYDIANE A Rep #:[id number] : 1985 39 From: Gray López MD PCP: AGUILAR Giles Status:ADM I N Y Race: C Location: [place] [address] 0-1 Anesthesia: Postop Eval I Current Vital [...] MD Cosigner Signature: Date CC: ~ Signed [facility]03-18-2025 Consult note Author Gray Onealawaja [facility] Note Date/Time December 15, 2024 4:1 9pm [facility] Medical Records Department [address] [place] [address] Pre-Anesthesia Evaluation 12/15/24 1551 MR#: [id number] Acct: [id number] Name: DIANE CONNORS Rep #:[id number] : 1985 39 From: Gray López MD PCP: AGUILAR Giles Status:ADM I N Y Race: C Location: [place] [address] 0-1 ASA Classification* ASA Classification ASA Classification: [...] Procedure(s): ERCP 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 History - executive legal secretary: Anesthesia History - executive legal secretary Hx Hospitalization Yes: 08/2024 ERCP 12/09/24 10:19 [...] take am of surgery PONV PONV - executive legal secretary: PONV - executive legal secretary Female HX of Motion Sickness HX of N/V After Surgery Non-Smoker Duration of Surgery greater than 60 minutes Number of Risk Factors PONV Score Height & Weight Height & Weight: Anesthesia: Height & Weight Height 5 ft 10.08 in 12/15/24 14:00 Weight: 93 kg 12/15/24 14:00 Body Mass Index (BMI) 29.3 12/15/24 14:00 Respiratory Assessment Respiratory Assessment - executive legal secretary: Respiratory Tract Infection Hx - executive legal secretary Hx Respiratory Tract Infection No 12/14/24 21:38 STOP Sleep Apnea STOP Sleep Apnea - executive legal secretary: STOP Sleep Apnea - executive legal secretary Hx Hypertension No 12/14/24 16:44 Hx Sleep [...] Tobacco Use History Tobacco Use History - executive legal secretary: Tobacco Use History - executive legal secretary Tobacco Use Smoking Status Never smoker 12/14/24 16:44 Hx Tobacco Use No 12/14/24 16:44 Years Smoking Packs Smoked per Day Smoking Cessation Date was within the last 15 years Hx Smoking Cessation Date Hx Smoking Cessation Counseling Hematologic Medial History Hematologic Hx - executive legal secretary: Hematologic Medical Hx - investment specialist Hx of Blood Transfusion No 12/14/24 16:44 [...] confused, unrespo /Reproduction History /Reproductive History - executive legal secretary: /Reproductive Hx- executive legal secretary Hx Now No 12/14/24 21:38 Gestational Age [...] Ml Syringe IV UD PRN SALINE FLUSH [facility] Medical History Overweight (BMI 25.0-29.9) No pertinent [...] regular rhythm, no murmurs and diaphoretic 12/15/24 1613 <Electronically signed by Gray López MD> Date _ Gray López MD Cosigner Signature: Date CC: ~ Signed [facility] Work Phone: 1(120) 440-458403-18-2025 Procedure note [facility] Medical Records Department [address] [place] [address] ERCP Report MR#: [id number] Acct: [id number] Name: DIANE CONNORS Rep #:[id number] : 1985 39 From: Denys Babin DO [...] hours 12 minutes 6 seconds Findings: The food sales clerk film was normal. The esophagus was successfully [...] bile duct. Procedure Code(s): --- Professional --- 39943, Endoscopic retrograde cholangiopancreatography (ERCP); with placement of endoscopic stent into biliary or pancreatic duct, including pre- and post-dilation and guide wire passage, when performed, including sphincterotomy, when performed, each stent 98374, Endoscopic retrograde cholangiopancreatography (ERCP); with removal of calculi/debris from biliary/pancreatic duct(s) 77200, 26, Endoscopic catheterization of the biliary ductal system, radiological supervision and interpretation CPT copyright 2021 [employer]. All rights reserved. The codes documented in this report are preliminary and upon sample maker hand review may be revised to meet current compliance requirements. Denys Babin DO 12/15/2024 6:13:06 PM This report has been signed electronically. Number of Addenda: 0 Note Initiated On: 12/15/2024 5:32 PM 12/15/241812 Date _ Denys Babin DO Cosigner Signature: Date (if indicated) CC: AGUILAR Arias; Denys Babin DO ~ Date Dictated: 12/15/24 1732 Date Transcribed: Energy Trader: RF Signed [facility]03-18-2025 Procedure note [facility] Medical Records Department [address] [place] [address] Operative Report - CC Letter MR#: [id number] Acct: [id number] Name: DIANE CONNORS Rep #:[id number] : 1985 39 From: Denys Babin DO [...] DO Marrero Signature: Date (if indicated) CC: HOUSEHOLD APPLIANCE REPAIRERGarrison Arias; Dr. Cruz Arciniega DO; Dr. Francesco Lui MD ~ Date Dictated: 12/15/24 1732 Date Transcribed: Energy Trader: RF Signed [facility]03-18-2025 Progress note [facility] Medical Records Department [address] [place] [address] Progress Note 12/15/241733 MR#: [id number] Acct: [id number] Name: DOROTHY CONNORSKelly [place] Rep #:[id number] : 1985 39 From: Denys Babin DO PCP: AGUILAR Giles Status:ADM I N Location: [place] [address] Progress Note I had a long conversation [...] is a 39-year-old male who presented to [facility] ED on 12/14/2024 with fevers and [...] ERCP today. . Visit Charges Inpatient E&M: 00610 Subs Hosp L2 12/15/24 8686 Denys Friend DO Cosigner Signature (if applicable): CC: ~ Signed [facility]03-18-2025 Consult note [facility] Medical Records Department [address] [place] [address] Pre-Anesthesia Evaluation 12/15/24 1551 MR#: [id number] Acct: [id number] Name: DIANE CONNORS Rep #:[id number] : 1985 39 From: Gray López MD PCP: AGUILAR Giles Status:ADM I N Y Race: C Location: [place] [address] 0-1 ASA Classification* ASA Classification ASA Classification: [...] Procedure(s): ERCP 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 History - executive legal secretary: Anesthesia History - executive legal secretary Hx Hospitalization Yes: 08/2024 ERCP 12/09/24 10:19 [...] take am of surgery PONV PONV - executive legal secretary: PONV - executive legal secretary Female HX of Motion Sickness HX of N/V After Surgery Non-Smoker Duration of Surgery greater than 60 minutes Number of Risk Factors PONV Score Height & Weight Height & Weight: Anesthesia: Height & Weight Height 5 ft 10.08 in 12/15/24 14:00 Weight: 93 kg 12/15/24 14:00 Body Mass Index (BMI) 29.3 12/15/24 14:00 Respiratory Assessment Respiratory Assessment - executive legal secretary: Respiratory Tract Infection Hx - executive legal secretary Hx Respiratory Tract Infection No 12/14/24 21:38 STOP Sleep Apnea STOP Sleep Apnea - executive legal secretary: STOP Sleep Apnea - executive legal secretary Hx Hypertension No 12/14/24 16:44 Hx Sleep [...] Tobacco Use History Tobacco Use History - executive legal secretary: Tobacco Use History - executive legal secretary Tobacco Use Smoking Status Never smoker 12/14/24 16:44 Hx Tobacco Use No 12/14/24 16:44 Years Smoking Packs Smoked per Day Smoking Cessation Date was within the last 15 years Hx Smoking Cessation Date Hx Smoking Cessation Counseling Hematologic Medial History Hematologic Hx - executive legal secretary: Hematologic Medical Hx - investment specialist Hx of Blood Transfusion No 12/14/24 16:44 [...] confused, unrespo /Reproduction History /Reproductive History - executive legal secretary: /Reproductive Hx- executive legal secretary Hx Now No 12/14/24 21:38 Gestational Age [...] MD Cosigner Signature: Date CC: ~ Signed [facility]03-18-2025 Progress note Author Francesco Lui [facility] Note Date/Time December 15, 2024 2:1 6pm [facility] Medical Records Department [address] [place] [address] Progress Note - Hospitalist 12/15/24 08 MR#: [id number] Acct: [id number] Name: DIANE CONNORS Rep #:[id number] : 1985 39 From: Francesco Love PCP: AGUILAR Giles Status:ADM I N Location: [place] [address] Reason for Visit Reason for Visit: Diagnoses [...] 90.5 H, Lymph % (Auto) 3.2 L, [place] % (Auto) 4.7, Eos % (Auto) 0.1, [...] Clarity Clear, Urine pH 7.0, Ur Specific Drift 1.005, Urine Protein 30 H, Urine Glucose [...] the head of the pancreas. [facility] 12/14/24 12:19 IMPRESSION: 1. Mild left basilar airspace disease favorable for atelectasis/scarring howeverthis is not definite in the absence of prior exams to confirm stability. Correlate for mild pneumonia. 2. Additional description as above. Reading Location: [facility] Physical Exam Narrative Seen and examined. [...] is a 39-year-old male who presented to [facility] ED on 12/14/2024 with fevers and [...] is 35 minutes. Visit Charges Inpatient E&M: 62964 Subs Hosp L3 12/15/24 6524 <Electronically signed by Francesco Lui MD> Cosigner Signature (if applicable): CC: ~ Signed [facility] Work Phone: 1(242) 517-580803-18-2025 Progress note [facility] Medical Records Department [address] [place] [address] Progress Note - Hospitalist 12/15/24 08 MR#: [id number] Acct: [id number] Name: DIANE CONNORS Rep #:[id number] : 1985 39 From: Francesco Love PCP: ROLY GilesC Status:ADM I N Location: [place] [address] Reason for Visit Reason for Visit: Diagnoses [...] 90.5 H, Lymph % (Auto) 3.2 L, [place] % (Auto) 4.7, Eos % (Auto) 0.1, [...] Clarity Clear, Urine pH 7.0, Ur Specific Drift 1.005, Urine Protein 30 H, Urine Glucose [...] the head of the pancreas. Reading Location: [facility] Chest X-Ray 12/14/24 12:19 IMPRESSION: 1. Mild left basilar airspace disease favorable for atelectasis/scarring howeverthis is not definite in the absence of prior exams to confirm stability. Correlate for mild pneumonia. 2. Additional description as above. Reading Location: [facility] Physical Exam Narrative Seen and examined. [...] is a 39-year-old male who presented to [facility] ED on 12/14/2024 with fevers and [...] is 35 minutes. Visit Charges Inpatient E&M: 75396 Subs Hosp L3 12/15/24 1416 Cosigner Signature (if applicable): CC: ~ Signed [facility]03-17-2025 Discharge summary Author Petar Barrera [facility] Note Date/Time December 14, 2024 3:4 8pm [facility] Medical Records Department [address] [place] [address] Emergency Department Summary 12/14/24 MR#: [id number] Acct: [id number] Name: DIANE CONNORS Rep #:[id number] : 1985 39 From: Petar Parra PCP: AGUILAR Giles Status:ADM I N Location: [address] History of Present Illness Chief Complaint: [...] History obtained from others: the patient's Consults: Manager Ent (Dr. Babin), internal medicine (Dr. Arciniega) MDM [...] for reoccurring hepatobiliary production. Discussed with the bartender (Dr. Babin) recommended admission with broad-spectrum antibiotics for ERCP and possible stent placement. Saw the patient broad-spectrum antibiotics given white count, fever and concern for infectious cholestasis. Discussed with hospitalist agreed admit the patient to [facility]. The patient and/or family, caregivers express understanding. [...] 4. Elevated liver enzymes [facility] This note was generated with [employer].gration software. It may contain incorrect words, spelling, [...] 90.5 H Lymph % (Auto) 3.2 L [place] % (Auto) 4.7 Eos % (Auto) 0.1 [...] Clarity Clear Urine pH 7.0 Ur Specific Drift 1.005 Urine Protein 30 H Urine Glucose [...] the head of the pancreas. Reading Location: [facility] Chest X-Ray 12/14/24 12:19 IMPRESSION: 1. Mild left basilar airspace disease favorable for atelectasis/scarring however this is not definite in the absence of prior exams to confirm stability. Correlate for mild pneumonia. 2. Additional description as above. Reading Location: [facility] Discharge Plan Triage Chief Complaint: Fever ED Provider: Petar Barrera Dx/Rx/DC Orders Primary Care Provider: Shira Arias NP What to do if you have Problems For any increased pain, shortness of breath, bleeding, nausea or vomiting, chest pain, or any unexpected problems, contact your Primary Care Provider. Call [facility] ([phone]) or report to the closest Emergency Room. Call 911 if necessary. 12/14/24 1548 <Electronically signed by Petar Barrera DO> Cosigner Signature (if applicable): CC: HOUSEHOLD APPLIANCE REPAIRER-C Shira Arias ~ Signed [facility] Work Phone: 1(942) 205-516803-17-2025 History and physical note Author Cruz Arciniega [facility] Note Date/Time December 14, 2024 3:1 2pm [facility] Medical Records Department [address] [place] [address] H&P Exam - Hospitalist 12/14/24 1445 MR#: [id number] Acct: [id number] Name: DIANE CONNORS Rep #:[id number] : 1985 39 From: Cruz esposito DO PCP: AGUILAR Giles Status:REG E R Location: ED HPI - General General Date of Admission: 12/14/24 Date of Service: 12/14/24 Chief Complaint: Fevers and chills HPI Narrative DIANE CONNORS, is a 39 M who presented to [facility] ED on 12/14/2024 with fevers and [...] any other acute concerns at this time. [facility] Medical History Overweight (BMI 25.0-29.9) No pertinent [...] 90.5 H, Lymph % (Auto) 3.2 L, [place] % (Auto) 4.7, Eos % (Auto) 0.1, [...] Clarity Clear, Urine pH 7.0, Ur Specific Drift 1.005, Urine Protein 30 H, Urine Glucose [...] the head of the pancreas. Reading Location: [facility] Chest X-Ray 12/14/24 12:19 IMPRESSION: 1. Mild left basilar airspace disease favorable for atelectasis/scarring howeverthis is not definite in the absence of prior exams to confirm stability. Correlate for mild pneumonia. 2. Additional description as above. Reading Location: [facility] Assessment & Plan Assessment/Plan (1) Hyperbilirubinemia: (2) Elevation of levels of liver transaminase levels: PLAN: Plan Patient is a 39-year-old male who presented to [facility] ED on 12/14/2024 with fevers and chills after recent ERCP. 1. 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 Admit under inpatient status to [facility]. GI consulted. See HPI for further details [...] 55 minutes. Charges/Coding Visit Charges Inpatient E&M: 29390 Init Hosp L2 12/14/24 1512 <Electronically signed by Cruz Arciniega DO> Cosigner Signature (if applicable): CC: AGUILAR Arias; Dr. Cruz Arciniega DO~ Signed [facility] Work Phone: 1(952) 931-258403-17-2025 Discharge summary [facility] Medical Records Department [address] [place] [address] Emergency Department Summary 12/14/24 MR#: [id number] Acct: [id number] Name: IDANE CONNORS Rep #:[id number] : 1985 39 From: Petar Parra PCP: AGUILAR Giles Status:ADM I N Location: [address] [address] History of Present Illness Chief Complaint: [...] History obtained from others: the patient's Consults: Manager Ent (Dr. Babin), internal medicine (Dr. Arciniega) MDM [...] for reoccurring hepatobiliary production. Discussed with the bartender (Dr. Babin) recommended admission with broad-spectrum antibiotics for ERCP and possible stent placement. Saw the patient broad-spectrum antibiotics given white count, fever and concern for infectious cholestasis. Discussed with hospitalist agreed admit the patient to [facility]. The patient and/or family, caregivers express understanding. [...] 4. Elevated liver enzymes Dispo: Admit to [facility] discharge This note was generated with Lithera dictation software. It may contain incorrect words, [...] 90.5 H Lymph % (Auto) 3.2 L [place] % (Auto) 4.7 Eos % (Auto) 0.1 [...] Clarity Clear Urine pH 7.0 Ur Specific Drift 1.005 Urine Protein 30 H Urine Glucose [...] the head of the pancreas. Reading Location: [facility] Chest X-Ray 12/14/24 12:19 IMPRESSION: 1. Mild left basilar airspace disease favorable for atelectasis/scarring however this is not definite in the absence of prior exams to confirm stability. Correlate for mild pneumonia. 2. Additional description as above. Reading Location: [facility] Discharge Plan Triage Chief Complaint: Fever ED Provider: Petar Barrera Dx/Rx/DC Orders Primary Care Provider: Shira Arias NP What to do if you have Problems For any increased pain, shortness of breath, bleeding, nausea or vomiting, chest pain, or any unexpected problems, contact your Primary Care Provider. Call [facility] ([phone]) or report to the closest Emergency Room. Call 911 if necessary. 12/14/24 2259 Cosigner Signature (if applicable): CC: AGUILAR Arias ~ Signed [facility]03-17-2025 History and physical note [facility] Medical Records Department [address] [place] [address] H&P Exam - Hospitalist 12/14/24 1445 MR#: [id number] Acct: [id number] Name: DIANE CONNORS Rep #:[id number] : 1985 39 From: Cruz esposito DO PCP: AGUILAR Giles Status:REG E R Location: ED HPI - General General Date of Admission: 12/14/24 Date of Service: 12/14/24 Chief Complaint: Fevers and chills HPI Narrative DIANE CONNORS, is a 39 M who presented to [facility] ED on 12/14/2024 with fevers and [...] any other acute concerns at this time. [facility] Medical History Overweight (BMI 25.0-29.9) No pertinent [...] 90.5 H, Lymph % (Auto) 3.2 L, [place] % (Auto) 4.7, Eos % (Auto) 0.1, [...] Clarity Clear, Urine pH 7.0, Ur Specific Drift 1.005, Urine Protein 30 H, Urine Glucose [...] the head of the pancreas. Reading Location: [facility]-1 Chest X-Ray 12/14/24 12:19 IMPRESSION: 1. Mild left basilar airspace disease favorable for atelectasis/scarring howeverthis is not definite in the absence of prior exams to confirm stability. Correlate for mild pneumonia. 2. Additional description as above. Reading Location: [id number] Assessment & Plan Assessment/Plan (1) Hyperbilirubinemia: (2) Elevation of levels of liver transaminase levels: PLAN: Plan Patient is a 39-year-old male who presented to [facility] ED on 12/14/2024 with fevers and chills after recent ERCP. 1. 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 Admit under inpatient status to [facility]. GI consulted. See HPI for further details [...] 55 minutes. Charges/Coding Visit Charges Inpatient E&M: 92600 Init Hosp L2 12/14/24 1512 Cosigner Signature (if applicable): CC: AGUILAR Arias; Dr. Cruz Arciniega, ~ Signed [facility]03-17-2025 Discharge summary [facility] Note Date/Time December 14, 2024 3:4 8pm [facility] Medical Records Department [address] [place] [address] Emergency Department Summary 12/14/24 MR#: [id number] Acct: [id number] Name: DIANE CONNORS Rep #:[id number] : 1985 39 From: Petar Parra PCP: AGUILAR Giles Status:ADM I N Location: [address] History of Present Illness Chief Complaint: [...] History obtained from others: the patient's Consults: Manager Ent (Dr. Babin), internal medicine (Dr. Arciniega) MDM [...] for reoccurring hepatobiliary production. Discussed with the bartender (Dr. Babin) recommended admission with broad-spectrum antibiotics for ERCP and possible stent placement. Saw the patient broad-spectrum antibiotics given white count, fever and concern for infectious cholestasis. Discussed with hospitalist agreed admit the patient to [facility]. The patient and/or family, caregivers express understanding. [...] [facility]Sur discharge This note was generated with Lithera dictation software. It may contain incorrect words, [...] 90.5 H Lymph % (Auto) 3.2 L [place] % (Auto) 4.7 Eos % (Auto) 0.1 [...] Clarity Clear Urine pH 7.0 Ur Specific Drift 1.005 Urine Protein 30 H Urine Glucose [...] the head of the pancreas. [facility] X-Ray 12/14/24 12:19 IMPRESSION: 1. Mild left basilar airspace disease favorable for atelectasis/scarring however this is not definite in the absence of prior exams to confirm stability. Correlate for mild pneumonia. 2. Additional description as above. Reading Location: [facility] Discharge Plan Triage Chief Complaint: Fever ED Provider: Petar Barrera Dx/Rx/DC Orders Primary Care Provider: Shira Arias NP What to do if you have Problems For any increased pain, shortness of breath, bleeding, nausea or vomiting, chest pain, or any unexpected problems, contact your Primary Care Provider. Call [facility] ([phone]) or report to the closest Emergency Room. Call 911 if necessary. 12/14/24 1548 <Electronically signed by Petar Barrera DO> Cosigner Signature (if applicable): CC: HOUSEHOLD APPLIANCE REPAIRER-C Shira Arias ~ Signed [facility] Work Phone: 1(459) 684-371203-17-2025 Radiology Diagnostic study note [facility] Imaging Services [address] [place] [address] Chest PA and Lateral MR#: [id number] Acct: [id number] Name: DIANE CONNORS Rep #: [id number] : 1985 M 39 From: Lily Holt MD PCP: Shira Arias HOUSEHOLD APPLIANCE REPAIRER-C Status: REG E R Study:Chest PA and Lateral Date of Exam: 12/14/24 Exam# [id number] Ordering Dr: Chela Barrera DO PROCEDURE: CHEST [...] 2. Additional description as above. Reading Location: [id number] CC: AGUILAR Arias; Dr. Petar Barrera DO ~ Energy Trader: Signed [facility]03-17-2025 Radiology Diagnostic study note [facility] Imaging Services [address] [place] [address] Abdomen/Pelvis W IV Cont ONLY MR#: [id number] Acct: [id number] Name: DIANE CONNORS Rep #: [id number] : 1985 M 39 From: Franco Soto MD PCP: AGUILAR Giles Status: PRE E R Study:Abdomen/Pelvis W IV Cont ONLY Date of E xam: 12/14/24 Exam# [id number] Ordering Dr: Chela Barrera DO PROCEDURE: ABDOMEN/PELVIS [...] of the pancreas. Reading Location: [place] [address] CC: AGUILAR Arias; Dr. Petar Barrera, DO ~ Energy Trader: Signed [facility]03-14-2025 Consult note [facility] Medical Records Department [address] [place] [address] Anesthesia Postop Eval II 12/11/24 1520 MR#: [id number] Acct: [id number] Name: DIANE CONNORS Rep #:[id number] : 1985 39 From: Rafael Hooper MD PCP: AGUILAR Giles Status:REG S DC Y Race: C Location: [place] [address] Anesthesia Postop Eval I Sum Postop Eval [...] 1520 > Date _ Rafael Hooper [facility] Signature: Date CC: ~ Signed [facility]03-14-2025 Radiology Diagnostic study note [facility] Imaging Services [address] [place] [address] ERCP Biliary/Pancreas MR#: [id number] Acct: [id number] Name: DIANE CONNORS Rep #: [id number] : 1985 M 39 From: Franco Soto MD PCP: AGUILAR Giles Status: REG S DC Study:ERCP Biliary/Pancreas Date of Exam: 12/11/24 Exam# [id number] Ordering Dr: Kayleigh Babin DO PROCEDURE: ERCP BILIARY/PANCREAS REASON FOR EXAM: ERCP TECHNIQUE: An ERCP was performed by the bartender. Fluoroscopic services were provided. COMPARISON: None. FINDINGS: A stent is seen on the original images. Following this, there is cannulation ofthe common bile duct. Contrast was injected. No filling defect is seen. RAD/ERCP Biliary/Pancreas IMPRESSION: Biliary stent removal. Reading Location: [place] [address] CC: AGUILAR Arias; DO Tanya Pierre Energy Trader: Signed [facility]03-14-2025 Consult note Author Rafael Hooper [facility] Note Date/Time December 11, 2024 1:0 0pm [facility] Medical Records Department [address] [place] [address] Pre-Anesthesia Evaluation 12/11/24 1259 MR#: [id number] Acct: [id number] Name: DIANE CONNORS Rep #:[id number] : 1985 39 From: Rafael Hooper MD PCP: Shira Lorson, HOUSEHOLD APPLIANCE REPAIRER-C Status:REG S DC Y Race: C Location: [place] [address]- ASA Classification* ASA Classification ASA Classification: 2 [...] Procedure(s): ERCP 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 History - executive legal secretary: Anesthesia History - executive legal secretary Hx Hospitalization Yes: 08/2024 ERCP 12/09/24 10:19 [...] take am of surgery PONV PONV - executive legal secretary: PONV - executive legal secretary Female No 12/09/24 10:19 HX of Motion [...] 09/11/24 08:02 Respiratory Assessment Respiratory Assessment - executive legal secretary: Respiratory Tract Infection Hx - executive legal secretary Hx Respiratory Tract Infection No 12/09/24 10:19 STOP Sleep Apnea STOP Sleep Apnea - executive legal secretary: STOP Sleep Apnea - executive legal secretary Hx Hypertension No 12/09/24 10:19 Hx Sleep [...] Tobacco Use History Tobacco Use History - executive legal secretary: Tobacco Use History - executive legal secretary Tobacco Use Smoking Status Never smoker 12/09/24 10:19 Hx Tobacco Use No 12/09/24 10:19 Years Smoking Packs Smoked per Day Smoking Cessation Date was within the last 15 years Hx Smoking Cessation Date Hx Smoking Cessation Counseling Hematologic Medial History Hematologic Hx - executive legal secretary: Hematologic Medical Hx - investment specialist Hx of Blood Transfusion No 12/09/24 10:19 [...] confused, unrespo /Reproduction History /Reproductive History - executive legal secretary: /Reproductive Hx- executive legal secretary Hx Now No 12/09/24 10:19 Gestational Age [...] MD Cosigner Signature: Date CC: ~ Signed [facility] Work Phone: 1(284) 662-644003-14-2025 History and physical note Author Dneys Babin [facility] Note Date/Time December 11, 2024 12: 52pm [facility] Medical Records Department [address] [place] [address] History & Physical Exam 12/11/24 1250 MR#: [id number] Acct: [id number] Name: DIANE CONNORS Rep #:[id number] : 1985 39 From: Denys Babin DO PCP: Shira Arias NP-C Status:REG S DC Location: [place] [address] HPI - General General Date of Admission: 12/11/24 Date of Service: 12/11/24 Chief Complaint: stent removal HPI Narrative DIANE CONNORS, is a 39 M who presents for biliary stent removal. [facility] inpatient 12.6.24-12.9.24- Choledocholithiasis with severe jaundice, small gall stone removed from bile duct. MRCP only found cholelithiasis and a biliary stent in place. Pt was referred to general surgery for poss. cholecystectomy. Ptstates he is well since the hospital visit. Is not having any abdominal pain, loss of appetite, fatigue or changes in bowels. [facility] Medical History Overweight (BMI 25.0-29.9) No pertinent [...] CC: AGUILAR Arias; Denys Babin, ~ Signed [facility] Work Phone: 1(602) 371-371703-14-2025 Evaluation note* Diagnosis Onset Date Resolution Status [...] 2024 10:55am Jaundice acute December 31 10:55am [facility] Work Phone: 1(482) 700-856703-14-2025 Evaluation note* Diagnosis Onset Date Resolution Status [...] laparoscopic cholecystectomy acute March 17, 2025 3:40pm [facility] Work Phone: 1(625) 875-295903-14-2025 Evaluation note* Diagnosis Onset Date Resolution Status [...] laparoscopic cholecystectomy acute March 25, 2025 1:05pm [facility] Work Phone: 1(596) 881-357103-14-2025 Evaluation note* Diagnosis Onset Date Resolution Status [...] laparoscopic cholecystectomy acute March 25, 2025 1:05pm [facility] Work Phone: 1(455) 292-478803-14-2025 Evaluation note* Diagnosis Onset Date Resolution Status [...] laparoscopic cholecystectomy acute March 31, 2025 1:58pm [facility] Work Phone: 1(944) 832-103003-14-2025 Consult note [facility] Medical Records Department [address] [place] [address] Anesthesia Postop Eval I 12/11/24 1426 MR#: [id number] Acct: [id number] Name: DIANE CONNORS Rep #:[id number] : 1985 39 From: Hipolito Rasheed PCP: AGUILAR Giles Status:REG S DC Y Race: C Location: [place] [address] Anesthesia: Postop Eval I Current Vital Signs [...] Hipolito Marrero Signature: Date CC: ~ Signed [facility]03-14-2025 Procedure note [facility] Medical Records Department [address] [place] [address] ERCP Report MR#: [id number] Acct: [id number] Name: DIANE CONNORS Rep #:[id number] : 1985 39 From: Denys Babin DO [...] hours 15 minutes 9 seconds Findings: The food sales clerk film was normal. The esophagus was successfully [...] Recommendation: Cholecystectomy Procedure Code(s): --- Professional --- 61605, Endoscopic retrograde cholangiopancreatography (ERCP); with removal of foreign body(s) or stent(s) from biliary/pancreatic duct(s) 28161, Endoscopic retrograde cholangiopancreatography (ERCP); with removal of calculi/debris from biliary/pancreatic duct(s) 53857, Endoscopic retrograde cholangiopancreatography (ERCP); with sphincterotomy/papillotomy 01465, 26, Endoscopic catheterization of the biliary ductal system, radiological supervision and interpretation CPT copyright 2021 [employer]. All rights reserved. The codes documented in this report are preliminary and upon sample maker hand review may be revised to meet current compliance requirements. Denys Babin DO 12/11/2024 2:18:31 PM This report has been signed electronically. Number of Addenda: 0 Note Initiated On: 12/11/2024 1:30 PM 12/11/24 141 Date _ Denys Abel Signature: Date (if indicated) CC: HOUSEHOLD APPLIANCE REPAIRERGarrison Arias; Denys Babin DO ~ Date Dictated: 12/11/24 1330 Date Transcribed: Energy Trader: RF Signed [facility]03-14-2025 Procedure note [facility] Medical Records Department [address] [facility] [place] [address] Operative Report - CC Letter MR#: [id number] Acct: [id number] Name: DIANE CONNORS Enma Rep #:[id number] : 1985 39 From: Denys Babin DO [...] ~ Date Dictated: 12/11/24 1330 Date Transcribed: Energy Trader: RF Signed [facility]03-14-2025 Consult note [facility] Medical Records Department [address] [place] [address] Pre-Anesthesia Evaluation 12/11/24 1259 MR#: [id number] Acct: [id number] Name: DIANE CONNORS Rep #:[id number] : 1985 39 From: Rafael Hooper MD PCP: AGUILAR Giles Status:REG S DC Y Race: C Location: [place] [address] ASA Classification* ASA Classification ASA Classification: 2 [...] Procedure(s): ERCP 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 History - executive legal secretary: Anesthesia History - executive legal secretary Hx Hospitalization Yes: 08/2024 ERCP 12/09/24 10:19 [...] take am of surgery PONV PONV - executive legal secretary: PONV - executive legal secretary Female No 12/09/24 10:19 HX of Motion [...] 09/11/24 08:02 Respiratory Assessment Respiratory Assessment - executive legal secretary: Respiratory Tract Infection Hx - executive legal secretary Hx Respiratory Tract Infection No 12/09/24 10:19 STOP Sleep Apnea STOP Sleep Apnea - executive legal secretary: STOP Sleep Apnea - executive legal secretary Hx Hypertension No 12/09/24 10:19 Hx Sleep [...] Tobacco Use History Tobacco Use History - executive legal secretary: Tobacco Use History - executive legal secretary Tobacco Use Smoking Status Never smoker 12/09/24 10:19 Hx Tobacco Use No 12/09/24 10:19 Years Smoking Packs Smoked per Day Smoking Cessation Date was within the last 15 years Hx Smoking Cessation Date Hx Smoking Cessation Counseling Hematologic Medial History Hematologic Hx - executive legal secretary: Hematologic Medical Hx - investment specialist Hx of Blood Transfusion No 12/09/24 10:19 [...] confused, unrespo /Reproduction History /Reproductive History - executive legal secretary: /Reproductive Hx- executive legal secretary Hx Now No 12/09/24 10:19 Gestational Age (in weeks): EDC: Hx Hx Para Hx Section SAB No 12/09/24 10:19 [facility] Medical History Overweight (BMI 25.0-29.9) No pertinent [...] Rafael Marrero Signature: Date CC: ~ Signed [facility]03-14-2025 History and physical note [facility] Medical Records Department [address] [place] [address] History & Physical Exam 12/11/24 1250 MR#: [id number] Acct: [id number] Name: DIANE CONNORS Rep #:[id number] : 1985 39 From: Denys Babin DO PCP: AGUILAR Giles Status:REG S DC Location: [place] [address] HPI - General General Date of Admission: 12/11/24 Date of Service: 12/11/24 Chief Complaint: stent removal HPI Narrative DIANE CONNORS, is a 39 M who presents for biliary stent removal. [facility] inpatient .03.23-12.9.24- Choledocholithiasis with severe jaundice, small gall stone removed from bile duct. MRCP only found cholelithiasis and a biliary stent in place. Pt was referred to general surgery for poss. cholecystectomy. Ptstates he is well since the hospital visit. Is not having any abdominal pain, loss of appetite, fatigue or changes in bowels. [facility] Medical History Overweight (BMI 25.0-29.9) No pertinent [...] CC: AGUILAR Arias; Denys Friend, DO~ Signed [facility]03-14-2025 [facility]12-09-2024 [facility]12-06-2024 Evaluation note* Diagnosis Onset Date Resolution Status [...] 2024 12:28pm Jaundice acute December 11 12:28pm [facility] Work Phone: 1(694) 423-442612-06-2024 Evaluation note* Diagnosis Onset Date Resolution Status [...] 2:45pm Hyperbilirubinemia acute December 14, 2024 2:45pm [facility] Work Phone: 1(850) 680-434912-06-2024 Evaluation note* Diagnosis Onset Date Resolution Status [...] 2:45pm Choledocholithiasis resolved December 14, 2024 2:45pm [facility] Work Phone: 1(167) 793-508612-06-2024 Evaluation note* Diagnosis Onset Date Resolution Status [...] 2024 10:55am Jaundice acute December 31 10:55am [facility] Work Phone: 1(459) 541-377712-06-2024 Consult note Author Rafael Hooper [facility] Note Date/Time December 11, 2024 4:1 0pm [facility] Medical Records Department [address] [place] [address] Anesthesia Postop Eval II 12/11/24 1520 MR#: [id number] Acct: [id number] Name: DIANE CONNORS Rep #:[id number] : 1985 39 From: Rafael Hooper MD PCP: AGUILAR Giles Status:REG S DC Y Race: C Location: [facility]14- Anesthesia Postop Eval I Sum [...] MD > Date _ Rafael Hooper MD [facility] Signature: Date CC: ~ Signed [facility] Work Phone: 1(173) 976-976611-13-2024 Note ORIGINAL EXAMINATION: LIMITED ABDOMINAL [id number]/13/2024 8:11 am Limited ultrasound of the abdomen [...] Sign Date: 08/12/2024 9:46:00 AM Ordering Provider: [facility]11-06-2024 Evaluation + Plan note Future Scheduled Tests Laboratory* Amylase Level 08/05/24 * Lipase Level 08/05/24 * Complete Blood Count 08/05/24 * Lipid Profile 01/29/24 * Complete Metabolic Panel 08/05/24 * Complete Metabolic Panel 01/29/24 Radiology* US Abdomen Limited 08/10/24 [facility] 09-10-2024 Note ORIGINAL EXAMINATION: CT OF THE [...] Sign Date: 06/09/2024 12:42:25 PM Ordering [place] [facility] [place] ORIGINAL EXAMINATION: ULTRASOUND OF THE SCROTUM/TESTICLES [...] Sign Date: 03/27/2024 3:12:22 PM Ordering Provider: [facility]05-01-2024 Evaluation + Plan note Future Scheduled Tests Laboratory* Lipid Profile 01/29/24 * Complete Metabolic Panel 01/29/24 [facility] 05-01-2024 Evaluation + Plan note Future Scheduled Tests Laboratory* Lipid Profile 01/29/24 * Complete Metabolic Panel 01/29/24 Radiology* US Pelvis Non-OB Complete 06/11/24 [facility] Consult note Author Hipolito Rasheed [facility] Note Date/Time December 11, 2024 2:2 7pm [facility] Medical Records Department [address] [place] [address] Anesthesia Postop Eval I 12/11/241425 MR#: [id number] Acct: [id number] Name: DIANE CONNORS Rep #:[id number] : 1985 39 From: Hipolito Rasheed PCP: AGUILAR Giles Status:REG S DC Y Race: C Location: [place] [address] Anesthesia: Postop Eval I Current Vital Signs [...] Hipolito Marrero Signature: Date CC: ~ Signed [facility] Work Phone: Consult note Author Jared Arevalo [facility] Note Date/Time December 16, 2024 4:1 7pm [facility] Medical Records Department [address] [place] [address] Consultation - Infectious Dx 12/16/24 1613 MR#: [id number] Acct: [id number] Name: DIANE CONNORS Rep #:[id number] : 1985 39 From: Jared melendrez MD PCP: ROLY GilesC Status:ADM I N Location: [place] [address] Assessment & Plan Assessment/Plan (1) Bacteremia due [...] performed and neg except as noted above. [facility] Medical History Overweight (BMI 25.0-29.9) No pertinent [...] % (Auto) 61.0, Lymph % (Auto) 20.8, [place] % (Auto) 13.5 H, Eos % (Auto) [...] Left Blood Culture - Preliminary GNR lactose continuous churn buttermaker 12/14/24 12:25 Blood Culture (Wb) - Anticubital Left Blood Culture - Preliminary GNR lactose continuous churn buttermaker Alpha Hemolytic Streptococcus Imaging Radiology Impression Endo Retro Cholangiopancreatogram 12/15/24 17:35 IMPRESSION: Fluoroscopy during ERCP as above. Reading Location: [id number] 12/16/24 1617 <Electronically signed by Jared Arevalo MD> Cosigner Signature (if applicable): CC: AGUILAR Arias~ Signed [facility] Work Phone: Consult note Author Hipolito Rasheed [facility] Note Date/Time May 03, 2025 1:4 2pm [facility] Medical Records Department [address] [place] [address] Anesthesia Postop Eval I 05/03/25 1341 MR#: [id number] Acct: [id number] Name: DIANE CONNORS Rep #:[id number] : 1985 39 From: Hipolito Rasheed PCP: AGUILAR Giles Status:REG S DC Y Race: C Location: [place] [address] Anesthesia: Postop Eval I Current Vital Signs [...] Hipolito Marrero Signature: Date CC: ~ Signed [facility] Work Phone: Consult note Author Rafael Hooper [facility] Note Date/Time May 03, 2025 2:0 3pm [facility] Medical Records Department [address] [place] [address] Anesthesia Postop Eval II 05/03/25 1349 MR#: [id number] Acct: [id number] Name: DIANE CONNORS Rep #:[id number] : 1985 39 From: Rafael Hooper MD PCP: AGUILAR Giles Status:REG S DC Y Race: C Location: [place] [address] Anesthesia Postop Eval I Sum Postop Eval [...] MD Cosigner Signature: Date CC: ~ Signed [facility] Work Phone: Evaluation + Plan note Future Appointments Appointment Date:06/11/2024 09:00:00 AM Scheduled Provider:CAYLA HOOPER Location:UROLOGY Appointment Type:URO OV Future Scheduled Tests Laboratory* Lipid Profile 01/29/24 * Complete Metabolic Panel 01/29/24 [facility] History and physical note Author Cruz Arciniega [facility] Note Date/Time December 14, 2024 3:1 2pm [facility] Medical Records Department [address] [place] [address] H&P Exam - Hospitalist 12/14/24 1445 MR#: [id number] Acct: [id number] Name: DIANE CONNORS Rep #:[id number] : 1985 39 From: Cruz esposito DO PCP: AGUILAR Giles Status:REG E R Location: ED HPI - General General Date of Admission: 12/14/24 Date of Service: 12/14/24 Chief Complaint: Fevers and chills HPI Narrative DIANE CONNORS, is a 39 M who presented to [facility] ED on 12/14/2024 with fevers and [...] any other acute concerns at this time. [facility] Medical History Overweight (BMI 25.0-29.9) No pertinent [...] 90.5 H, Lymph % (Auto) 3.2 L, [place] % (Auto) 4.7, Eos % (Auto) 0.1, [...] Clarity Clear, Urine pH 7.0, Ur Specific Drift 1.005, Urine Protein 30 H, Urine Glucose [...] the head of the pancreas. [facility]24 12:19 IMPRESSION: 1. Mild left basilar airspace disease favorable for atelectasis/scarring howeverthis is not definite in the absence of prior exams to confirm stability. Correlate for mild pneumonia. 2. Additional description as above. Reading Location: [id number] Assessment & Plan Assessment/Plan (1) Hyperbilirubinemia: (2) Elevation of levels of liver transaminase levels: PLAN: Plan Patient is a 39-year-old male who presented to [facility] ED on 12/14/2024 with fevers and chills after recent ERCP. 1. 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 Admit under inpatient status to [facility]. GI consulted. See HPI for further details [...] 55 minutes. Charges/Coding Visit Charges Inpatient E&M: 74358 Init Hosp L2 12/14/24 1512 <Electronically signed by Cruz Arciniega DO> Cosigner Signature (if applicable): CC: AGUILAR Arias; Dr. Cruz Arciniega DO~ Signed [facility] Work Phone: History and physical note Author Denys Babin [facility] Note Date/Time May 03, 2025 12: 49pm [facility] Medical Records Department [address] [place] [id number] History & Physical Exam 05/03/25 1247 MR#: [id number] Acct: [id number] Name: DIANE CONNORS Rep #:[id number] : 1985 39 From: Denys Babin DO PCP: AGUILAR Giles Status:REG S DC Location: [place] [address] HPI - General General Date of Admission: 05/03/25 Date of Service: 05/03/25 Chief Complaint: Biliary stent removal HPI Narrative DIANE CONNORS, is a 39 M who presents today for ERCP with stent removal. Patient recently underwent ERCP with stone removal and stent placement. Last month he underwent elective cholecystectomy. Patient is doing well after procedure. He comes back in for stent removal. [facility] Medical History Bacteremia due to Gram-negative bacteria [...] is a 39-year-old male who presented to [facility] ED on 12/14/2024 with fevers and [...] CC: AGUILAR Arias; Denys Babin DO~ Signed [facility] Work Phone: Hospital course Narrative No data available for this section [facility] Discharge instructions No data available for this section [facility] Progress note No data available for this section [facility] Summary Purpose Family History No Family History Records Found Advance Directives Advance Directive Response Recorded Date/ Time Living Will Yes December 09, 2024 10:19am Power of Lcsw Yes December 09 10:19am Name of Medical Power of Lcsw OLGA December 09, 2024 10:19am Living Will No September 04 10:48pm Power of Lcsw No 2024 10:48pm Advance Directive Response Recorded Date/ Time Living Will Yes December 09, 2024 10:19am Power of Lcsw Yes December 09 10:19am Name of Medical Power of Lcsw OLGA December 09, 2024 10:19am Living Will No December 14, 2024 11:02am Power of Lcsw No December 14 11:02am Living Will No September 04 10:48pm Power of Lcsw No 2024 10:48pm Advance Directive Response Recorded Date/ Time Living Will Yes December 09, 2024 10:19am Do you have a Healthcare Power of Lcsw? Yes December 09, 2024 10:19am Name of Medical Power of Lcsw OLGA December 09, 2024 10:19am Living Will Yes December 14, 2024 4:44pm Do you have a Healthcare Power of Lcsw? Yes December 14, 2024 4:44pm Name of Medical Power of Lcsw Olga Connors December 14, 2024 4:44pm Living Will No September 04 10:48pm Do you have a Healthcare Power of Lcsw? No 2024 10:48pm Advance Directive Response Recorded Date/ Time Living Will Yes December 09, 2024 10:19am Do you have a Healthcare Power of Lcsw? Yes December 09, 2024 10:19am Name of Medical Power of Lcsw OLGA December 09, 2024 10:19am Living Will Yes December 14, 2024 4:44pm Do you have a Healthcare Power of Lcsw? Yes December 14, 2024 4:44pm Name of Medical Power of Lcsw Olga Connors December 14, 2024 4:44pm Advance Directive Response Recorded Date/ Time Living Will Yes December 09, 2024 10:19am Do you have a Healthcare Power of Lcsw? Yes December 09, 2024 10:19am Name of Medical Power of Lcsw OLGA December 09, 2024 10:19am Living Will Yes December 14, 2024 4:44pm Do you have a Healthcare Power of Lcsw? Yes December 14, 2024 4:44pm Name of Medical Power of Lcsw Olga Connors December 14, 2024 4:44pm Do you have a Healthcare Power of Lcsw? No March 17, 2025 8:10pm Advance Directive Response Recorded Date/ Time Do you have a Healthcare Power of Lcsw? No March 17, 2025 8:10pm Do you have a Healthcare Power of Lcsw? No April 27, 2025 3:02pm Chief Complaint [...] WITH SEVERE JAUNDICE September 07, 2024 11:32am [facility] Jaundice August 7:58am INT LABS September 11, [...] FEVERS December 16, 2024 2: 13pm GALLBLADDER, [facility] December 31, 2024 9:50 am Hospital [...] FEVERS December 16, 2024 2: 13pm GALLBLADDER, [facility] FU December 31, 2024 9:50 am [...] FEVERS December 16, 2024 2: 13pm GALLBLADDER, [facility] F[facility] December 31, 2024 9:50 am [...] Member Role Status Dates Shira Arias NP, HOUSEHOLD APPLIANCE REPAIRER-C Primary Care Provider Active Team Status: Active Member Role Status Dates Shira Arias NP, HOUSEHOLD APPLIANCE REPAIRER-C Primary Care Provider Active Start: December 11, 2024 Dr. Pedro Lopez MD Attending Provider Active Start: December 11, 2024 Dr. Pedro Lopez MD Referring Provider Active Start: December 11, 2024 Team Status: Inactive Member Role Status Dates Shira Arias NP, HOUSEHOLD APPLIANCE REPAIRER-C Primary Care Provider Active Start: December 11, 2024 End: December 11, 2024 Shira Arias NP, HOUSEHOLD APPLIANCE REPAIRER-C Referring Provider Active Start: December 11, 2024 End: December 11, 2024 Dr. Denys Babin DO Attending Provider Active Start: December 11, 2024 End: December 11, 2024 Team Status: Active Member Role Status Dates Shira Arias NP, HOUSEHOLD APPLIANCE REPAIRER-C Primary Care Provider Active Start: December 11, 2024 Shira Arias NP, HOUSEHOLD APPLIANCE REPAIRER-C Referring Provider Active Start: December 11, 2024 Dr. Denys Babin DO Attending Provider Active Start: December 11, 2024 Dr. Denys Babin DO Other Provider Active St art: December 11, 2024 Team Status: Active Member Role Status Dates Shira Arias NP, HOUSEHOLD APPLIANCE REPAIRER-C Primary Care Provider Active Start: December 11, 2024 End: December 11, 2024 Dr. Jose Lubin MD Attending Provider Active S tart: December 11, 2024 End: December 11, 2024 Dr. Denys Babin DO Referring Provider Active Start: December 11, 2024 End: December 11, 2024 Team Status: Inactive Member Role Status Dates Shira Lorson HOUSEHOLD APPLIANCE REPAIRER, HOUSEHOLD APPLIANCE REPAIRER-C Primary Care Provider Active Start: December 14, [...] Active Member Role Status Dates Shira Arias HOUSEHOLD APPLIANCE REPAIRER, HOUSEHOLD APPLIANCE REPAIRER-C Primary Care Provider Active Start: December 15, [...] Active Member Role Status Dates Shira Arias HOUSEHOLD APPLIANCE REPAIRER, HOUSEHOLD APPLIANCE REPAIRER-C Primary Care Provider Active Start: December 15, [...] Active Member Role Status Dates Shira Arias HOUSEHOLD APPLIANCE REPAIRER, HOUSEHOLD APPLIANCE REPAIRER-C Primary Care Provider Active Start: December 16, [...] Active Member Role Status Dates Shira Arias HOUSEHOLD APPLIANCE REPAIRER, HOUSEHOLD APPLIANCE REPAIRER-C Primary Care Provider Active Start: December 16, [...] Member Role Status Dates Shira Arias NP, HOUSEHOLD APPLIANCE REPAIRER-C Primary Care Provider Active Start: December 31, 2024 End: December 31, 2024 Shira Arias NP, HOUSEHOLD APPLIANCE REPAIRER-C Referring Provider Active Start: December 31, 2024 End: December 31, 2024 Dr. Camron Shoemaker MD Attending Provider Active Start: December 31, 2024 End: December 31, 2024 Team Status: Inactive Member Role Status Dates Shira Arias HOUSEHOLD APPLIANCE REPAIRER, HOUSEHOLD APPLIANCE REPAIRER-C Primary Care Provider Active Start: December 31, 2024 End: December 31, 2024 Shira Arias NP, HOUSEHOLD APPLIANCE REPAIRER-C Referring Provider Active Start: December 31, 2024 End: December 31, 2024 Cayla Quiñonez NP-C Attending Provider Active Start: December 31, 2024 End: December 31, 2024 Team Status: Inactive Member Role Status Dates Shira Arias NP, HOUSEHOLD APPLIANCE REPAIRER-C Primary Care Provider Active Start: December 31, 2024 End: December 31, 2024 Cayla Quiñonez HOUSEHOLD APPLIANCE REPAIRER-C Attending Provider Active Start: December 31, 2024 End: December 31, 2024 Cayla Quiñonez , HOUSEHOLD APPLIANCE REPAIRER-C Referring Provider Active Start: December 31, 2024 End: December 31, 2024 Team Status: Active Member Role Status Dates Shira Juana HOUSEHOLD APPLIANCE REPAIRER, HOUSEHOLD APPLIANCE REPAIRER-C Primary Care Provider Active Start: January 05, 2025 Michela Sal HOUSEHOLD APPLIANCE REPAIRER, HOUSEHOLD APPLIANCE REPAIRER-C Attending Provider Active Start: January 05, 2025 Michela Sal HOUSEHOLD APPLIANCE REPAIRER, HOUSEHOLD APPLIANCE REPAIRER-C Referring Provider Active Start: January 05, 2025 Team Status: Inactive Member Role Status Dates Shira Juana HOUSEHOLD APPLIANCE REPAIRER, HOUSEHOLD APPLIANCE REPAIRER-C Primary Care Provider Active Start: February 24, 2025 End: February 24, 2025 Michela Sal HOUSEHOLD APPLIANCE REPAIRER, HOUSEHOLD APPLIANCE REPAIRER-C Attending Provider Active Start: February 24, 2025 End: February 24, 2025 Michela Sal HOUSEHOLD APPLIANCE REPAIRER, HOUSEHOLD APPLIANCE REPAIRER-C Referring Provider Active Start: February 24, 2025 End: February 24, 2025 Team Status: Inactive Member Role Status Dates Shira Juana HOUSEHOLD APPLIANCE REPAIRER, HOUSEHOLD APPLIANCE REPAIRER-C Primary Care Provider Active Start: 2024 End: [...] Member Role Status Dates Shira Arias NP, HOUSEHOLD APPLIANCE REPAIRER-C Primary Care Provider Active Start: 2024 Dr. [...] Active Member Role Status Dates Shira Arias HOUSEHOLD APPLIANCE REPAIRER, HOUSEHOLD APPLIANCE REPAIRER-C Primary Care Provider Active Start: September 05, 2024 End: September 05, 2024 Dr. Jose Lubin MD Attending Provider Active S tart: September 05, 2024 End: September 05, 2024 Dr. Jose Lubin MD Referring Provider Active S tart: September 05, 2024 End: September 05, 2024 Team Status: Active Member Role Status Dates Shira Juana HOUSEHOLD APPLIANCE REPAIRER, HOUSEHOLD APPLIANCE REPAIRER-C Primary Care Provider Active Start: September 05, [...] Active Member Role Status Dates Shira Arias HOUSEHOLD APPLIANCE REPAIRER, HOUSEHOLD APPLIANCE REPAIRER-C Primary Care Provider Active Start: September 05, 2024 Dr. Denys Babin , DO Attending Provider Active Start: September 05, 2024 Dr. Seth Piaz , Referring Provider Active Start: September 05, 2024 Team Status: Active Member Role Status Dates Shira Juana HOUSEHOLD APPLIANCE REPAIRER, HOUSEHOLD APPLIANCE REPAIRER-C Primary Care Provider Active Start: September 06, [...] Active Member Role Status Dates Shira Juana HOUSEHOLD APPLIANCE REPAIRER, HOUSEHOLD APPLIANCE REPAIRER-C Primary Care Provider Active Start: September 07, [...] Active Member Role Status Dates Shira Arias HOUSEHOLD APPLIANCE REPAIRER, HOUSEHOLD APPLIANCE REPAIRER-C Primary Care Provider Active Start: September 07, [...] Inactive Member Role Status Dates Shira Arias HOUSEHOLD APPLIANCE REPAIRER, HOUSEHOLD APPLIANCE REPAIRER-C Primary Care Provider Active Start: September 11, 2024 End: September 11, 2024 Shira Arias HOUSEHOLD APPLIANCE REPAIRER, HOUSEHOLD APPLIANCE REPAIRER-C Referring Provider Active Start: September 11, 2024 End: September 11, 2024 Dr. Francesco Lui MD Attending Provider Active Start: September 11, 2024 End: September 11, 2024 Team Status: Inactive Member Role Status Dates Shira Arias HOUSEHOLD APPLIANCE REPAIRER, HOUSEHOLD APPLIANCE REPAIRER-C Primary Care Provider Active Start: September 11, 2024 End: September 11, 2024 Dr. Francesco Lui MD Attending Provider Active Start: September 11, 2024 End: September 11, 2024 Dr. Francesco Liu MD Referring Provider Active Start: September 11, 2024 End: September 11, 2024 Team Status: Active Member Role Status Dates Shira Arias HOUSEHOLD APPLIANCE REPAIRER, HOUSEHOLD APPLIANCE REPAIRER-C Primary Care Provider Active Start: December 14, 2024 Dr. Petar Barrera , DO Emergency Provider Active Start: December 14, 2024 Dr. Cruz Arciniega , DO Admit Provider Active Start: December 14, 2024 Dr. Cruz Arciniega , DO Attending Provider Active Start: December 14, 2024 Team Status: Active Member Role Status Dates Shira Arias HOUSEHOLD APPLIANCE REPAIRER, HOUSEHOLD APPLIANCE REPAIRER-C Primary Care Provider Active Start: December 15, [...] Active Member Role Status Dates Shira Arias HOUSEHOLD APPLIANCE REPAIRER, HOUSEHOLD APPLIANCE REPAIRER-C Primary Care Provider Active Start: December 16, [...] Active Member Role Status Dates Shira Arias HOUSEHOLD APPLIANCE REPAIRER, HOUSEHOLD APPLIANCE REPAIRER-C Primary Care Provider Active Start: March 08, 2025 End: March 08, 2025 Dr. Camron Redd MD Attending Provider Active Start: March 08, 2025 End: March 08, 2025 Dr. Camron Shoemaker MD Referring Provider Active Start: March 08, 2025 End: March 08, 2025 Team Status: Active Member Role Status Dates Shira Arias HOUSEHOLD APPLIANCE REPAIRER, HOUSEHOLD APPLIANCE REPAIRER-C Primary Care Provider Active Start: March 17, 2025 Dr. Camron Shoemaker MD Attending Provider Active Start: March 17, 2025 Dr. Camron Shoemaker MD Referring Provider Active Start: March 17, 2025 Dr. Camron Shoemaker MD Other Provider Active Sta rt: March 17, 2025 Dr. Gray López MD Other Provider Active Star t: March 17, 2025 Team Status: Inactive Member Role Status Dates Shira Arias HOUSEHOLD APPLIANCE REPAIRER, HOUSEHOLD APPLIANCE REPAIRER-C Primary Care Provider Active Start: March 17, [...] Active Member Role Status Dates Shira Arias HOUSEHOLD APPLIANCE REPAIRER, HOUSEHOLD APPLIANCE REPAIRER-C Primary Care Provider Active Start: March 18, [...] Inactive Member Role Status Dates Shira Arias HOUSEHOLD APPLIANCE REPAIRER, HOUSEHOLD APPLIANCE REPAIRER-C Primary Care Provider Active Start: March 25, 2025 End: March 25, 2025 Shira Arias HOUSEHOLD APPLIANCE REPAIRER, HOUSEHOLD APPLIANCE REPAIRER-C Referring Provider Active Start: March 25, 2025 End: March 25, 2025 Bing Temple PA, PA-C Attending Provider Active Start: March 25, 2025 End: March 25, 2025 Team Status: Active Member Role/Relationship Status Dates Shira Arias HOUSEHOLD APPLIANCE REPAIRER, HOUSEHOLD APPLIANCE REPAIRER-C Primary Care Provider Active Team Status: Active Member Role/Relationship Status Dates Shira Arias HOUSEHOLD APPLIANCE REPAIRER, HOUSEHOLD APPLIANCE REPAIRER-C Primary Care Provider Active Start: December 11, 2024 Dr. Pedro Lopez MD Attending Provider Active Start: December 11, 2024 Dr. Pedro Lopez MD Referring Provider Active Start: December 11, 2024 Team Status: Inactive Member Role/Relationship Status Dates Shira Arias HOUSEHOLD APPLIANCE REPAIRER, HOUSEHOLD APPLIANCE REPAIRER-C Primary Care Provider Active Start: December 11, 2024 End: December 11, 2024 Shira Arias HOUSEHOLD APPLIANCE REPAIRER, HOUSEHOLD APPLIANCE REPAIRER-C Referring Provider Active Start: December 11, 2024 End: December 11, 2024 Dr. Denys Babin DO Attending Provider Active Start: December 11, 2024 End: December 11, 2024 Team Status: Active Member Role/Relationship Status Dates Shira Arias HOUSEHOLD APPLIANCE REPAIRER, HOUSEHOLD APPLIANCE REPAIRER-C Primary Care Provider Active Start: December 11, 2024 Shira Arias NP, HOUSEHOLD APPLIANCE REPAIRER-C Referring Provider Active Start: December 11, 2024 Dr. Denys Babin DO Attending Provider Active Start: December 11, 2024 Dr. Dneys Babin DO Other Provider Active St art: December 11, 2024 Team Status: Active Member Role/Relationship Status Dates Shira Arias HOUSEHOLD APPLIANCE REPAIRER, HOUSEHOLD APPLIANCE REPAIRER-C Primary Care Provider Active Start: December 11, 2024 End: December 11, 2024 Dr. Jose Lubin MD Attending Provider Active S tart: December 11, 2024 End: December 11, 2024 Dr. Denys Babin DO Referring Provider Active Start: December 11, 2024 End: December 11, 2024 Team Status: Inactive Member Role/Relationship Status Dates Shira Arias NP, HOUSEHOLD APPLIANCE REPAIRER-C Primary Care Provider Active Start: December 14, [...] Member Role/Relationship Status Dates Shira Arias NP, HOUSEHOLD APPLIANCE REPAIRER-C Primary Care Provider Active Start: December 15, [...] Active Member Role/Relationship Status Dates Shira Arias HOUSEHOLD APPLIANCE REPAIRER, HOUSEHOLD APPLIANCE REPAIRER-C Primary Care Provider Active Start: December 15, [...] Active Member Role/Relationship Status Dates Shira Arias HOUSEHOLD APPLIANCE REPAIRER, HOUSEHOLD APPLIANCE REPAIRER-C Primary Care Provider Active Start: December 16, [...] Member Role/Relationship Status Dates Shira Arias NP, HOUSEHOLD APPLIANCE REPAIRER-C Primary Care Provider Active Start: December 16, [...] Inactive Member Role/Relationship Status Dates Shira Arias HOUSEHOLD APPLIANCE REPAIRER, HOUSEHOLD APPLIANCE REPAIRER-C Primary Care Provider Active Start: December 31, 2024 End: December 31, 2024 Shira Arias HOUSEHOLD APPLIANCE REPAIRER, HOUSEHOLD APPLIANCE REPAIRER-C Referring Provider Active Start: December 31, 2024 End: December 31, 2024 Dr. Camron Shoemaker MD Attending Provider Active Start: December 31, 2024 End: December 31, 2024 Team Status: Inactive Member Role/Relationship Status Dates Shira Arias HOUSEHOLD APPLIANCE REPAIRER, HOUSEHOLD APPLIANCE REPAIRER-C Primary Care Provider Active Start: December 31, 2024 End: December 31, 2024 Shira Arias HOUSEHOLD APPLIANCE REPAIRER, HOUSEHOLD APPLIANCE REPAIRER-C Referring Provider Active Start: December 31, 2024 End: December 31, 2024 Cayla Quiñonez HOUSEHOLD APPLIANCE REPAIRER-C Attending Provider Active Start: December 31, 2024 End: December 31, 2024 Team Status: Inactive Member Role/Relationship Status Dates Shira Arias HOUSEHOLD APPLIANCE REPAIRER, HOUSEHOLD APPLIANCE REPAIRER-C Primary Care Provider Active Start: December 31, 2024 End: December 31, 2024 Cayla Quiñonez HOUSEHOLD APPLIANCE REPAIRER-C Attending Provider Active Start: December 31, 2024 End: December 31, 2024 Cayla Quiñonez HOUSEHOLD APPLIANCE REPAIRER-C Referring Provider Active Start: December 31, 2024 End: December 31, 2024 Team Status: Active Member Role/Relationship Status Dates Shira Arias HOUSEHOLD APPLIANCE REPAIRER, HOUSEHOLD APPLIANCE REPAIRER-C Primary Care Provider Active Start: January 05, 2025 Michela Sal HOUSEHOLD APPLIANCE REPAIRER, HOUSEHOLD APPLIANCE REPAIRER-C Attending Provider Active Start: January 05, 2025 Michela Sal HOUSEHOLD APPLIANCE REPAIRER, HOUSEHOLD APPLIANCE REPAIRER-C Referring Provider Active Start: January 05, 2025 Team Status: Inactive Member Role/Relationship Status Dates Shira Arias HOUSEHOLD APPLIANCE REPAIRER, HOUSEHOLD APPLIANCE REPAIRER-C Primary Care Provider Active Start: February 24, 2025 End: February 24, 2025 Michela Sal HOUSEHOLD APPLIANCE REPAIRER, HOUSEHOLD APPLIANCE REPAIRER-C Attending Provider Active Start: February 24, 2025 End: February 24, 2025 Michela Sal HOUSEHOLD APPLIANCE REPAIRER, HOUSEHOLD APPLIANCE REPAIRER-C Referring Provider Active Start: February 24, 2025 End: February 24, 2025 Team Status: Active Member Role/Relationship Status Dates Shira Arias NP, HOUSEHOLD APPLIANCE REPAIRER-C Primary Care Provider Active Start: March 08, 2025 End: March 08, 2025 Dr. Camron Redd MD Attending Provider Active Start: March 08, 2025 End: March 08, 2025 Dr. Camron Shoemaker MD Referring Provider Active Start: March 08, 2025 End: March 08, 2025 Team Status: Active Member Role/Relationship Status Dates Shira Arias NP, HOUSEHOLD APPLIANCE REPAIRER-C Primary Care Provider Active Start: March 17, 2025 Dr. Camron Shoemaker MD Attending Provider Active Start: March 17, 2025 Dr. Camron Shoemaker MD Referring Provider Active Start: March 17, 2025 Dr. Camron Shoemaker MD Other Provider Active Sta rt: March 17, 2025 Dr. Gray López MD Other Provider Active Star t: March 17, 2025 Team Status: Inactive Member Role/Relationship Status Dates Shira Arias HOUSEHOLD APPLIANCE REPAIRER, HOUSEHOLD APPLIANCE REPAIRER-C Primary Care Provider Active Start: March 17, [...] Member Role/Relationship Status Dates Shira Arias NP, HOUSEHOLD APPLIANCE REPAIRER-C Primary Care Provider Active Start: March 18, [...] Inactive Member Role/Relationship Status Dates Shira Arias HOUSEHOLD APPLIANCE REPAIRER, HOUSEHOLD APPLIANCE REPAIRER-C Primary Care Provider Active Start: March 25, 2025 End: March 25, 2025 Shira Arias NP, HOUSEHOLD APPLIANCE REPAIRER-C Referring Provider Active Start: March 25, 2025 End: March 25, 2025 Bing Temple PA, PA-C Attending Provider Active Start: March 25, 2025 End: March 25, 2025 Team Status: Active Member Role/Relationship Status Dates Shira Arias HOUSEHOLD APPLIANCE REPAIRER, HOUSEHOLD APPLIANCE REPAIRER-C Primary Care Provider Active Start: March 30, 2025 Bing Temple PA, PA-C Attending Provider Active Start: March 30, 2025 Bing Temple PA, PA-C Referring Provider Active Start: March 30, 2025 Team Status: Inactive Member Role/Relationship Status Dates Shira Arias HOUSEHOLD APPLIANCE REPAIRER, HOUSEHOLD APPLIANCE REPAIRER-C Primary Care Provider Active Start: March 31, 2025 End: March 31, 2025 Shira Arias HOUSEHOLD APPLIANCE REPAIRER, HOUSEHOLD APPLIANCE REPAIRER-C Referring Provider Active Start: March 31, 2025 End: March 31, 2025 Bing Temple PA, PA-C Attending Provider Active Start: March 31, 2025 End: March 31, 2025 Team Status: Inactive Member Role/Relationship Status Dates Shira Arias HOUSEHOLD APPLIANCE REPAIRER, HOUSEHOLD APPLIANCE REPAIRER-C Primary Care Provider Active Start: March 30, 2025 End: March 30, 2025 Bing Temple PA, PA-C Attending Provider Active Start: March 30, 2025 End: March 30, 2025 Bnig Temple PA, PA-C Referring Provider Active Start: March 30, 2025 End: March 30, 2025 Team Status: Inactive Member Role/Relationship Status Dates Shira Arias HOUSEHOLD APPLIANCE REPAIRER, HOUSEHOLD APPLIANCE REPAIRER-C Primary Care Provider Active Start: April 07, 2025 End: April 07, 2025 Shira Arias HOUSEHOLD APPLIANCE REPAIRER, HOUSEHOLD APPLIANCE REPAIRER-C Referring Provider Active Start: April 07, 2025 End: April 07, 2025 Bing Temple PA, PA-C Attending Provider Active Start: April 07, 2025 End: April 07, 2025 Team Status: Active Member Role/Relationship Status Dates Shira Arias HOUSEHOLD APPLIANCE REPAIRER, HOUSEHOLD APPLIANCE REPAIRER-C Primary Care Provider Active Start: January 05, 2025 Michela Sal HOUSEHOLD APPLIANCE REPAIRER, HOUSEHOLD APPLIANCE REPAIRER-C Attending Provider Active Start: January 05, 2025 Michela Sal HOUSEHOLD APPLIANCE REPAIRER, HOUSEHOLD APPLIANCE REPAIRER-C Referring Provider Active Start: January 05, 2025 Team Status: Inactive Member Role/Relationship Status Dates Shira Arias HOUSEHOLD APPLIANCE REPAIRER, HOUSEHOLD APPLIANCE REPAIRER-C Primary Care Provider Active Start: February 24, 2025 End: February 24, 2025 Michela Sal HOUSEHOLD APPLIANCE REPAIRER, HOUSEHOLD APPLIANCE REPAIRER-C Attending Provider Active Start: February 24, 2025 End: February 24, 2025 Michela Sal HOUSEHOLD APPLIANCE REPAIRER, HOUSEHOLD APPLIANCE REPAIRER-C Referring Provider Active Start: February 24, 2025 End: February 24, 2025 Team Status: Active Member Role/Relationship Status Dates Shira Arias NP, HOUSEHOLD APPLIANCE REPAIRER-C Primary Care Provider Active Start: March 08, 2025 End: March 08, 2025 Dr. Camron Redd MD Attending Provider Active Start: March 08, 2025 End: March 08, 2025 Dr. Camron Shoemaker MD Referring Provider Active Start: March 08, 2025 End: March 08, 2025 Team Status: Active Member Role/Relationship Status Dates Shira Arias NP, HOUSEHOLD APPLIANCE REPAIRER-C Primary Care Provider Active Start: March 17, [...] Member Role/Relationship Status Dates Shira Arias NP, HOUSEHOLD APPLIANCE REPAIRER-C Primary Care Provider Active Start: March 17, [...] Member Role/Relationship Status Dates Shira Arias NP, HOUSEHOLD APPLIANCE REPAIRER-C Primary Care Provider Active Start: March 18, [...] Team Status: Inactive Member Role/Relationship Status Dates Shiar Arias HOUSEHOLD APPLIANCE REPAIRER, HOUSEHOLD APPLIANCE REPAIRER-C Primary Care Provider Active Start: March 25, 2025 End: March 25, 2025 Shira Arias HOUSEHOLD APPLIANCE REPAIRER, HOUSEHOLD APPLIANCE REPAIRER-C Referring Provider Active Start: March 25, 2025 End: March 25, 2025 Bing Temple PA, PA-C Attending Provider Active Start: March 25, 2025 End: March 25, 2025 Team Status: Inactive Member Role/Relationship Status Dates Shira Arias HOUSEHOLD APPLIANCE REPAIRER, HOUSEHOLD APPLIANCE REPAIRER-C Primary Care Provider Active Start: March 30, 2025 End: March 30, 2025 Bing Temple PA, PA-C Attending Provider Active Start: March 30, 2025 End: March 30, 2025 Bingángel Temple PA, PA-C Referring Provider Active Start: March 30, 2025 End: March 30, 2025 Team Status: Inactive Member Role/Relationship Status Dates Shira Arias HOUSEHOLD APPLIANCE REPAIRER, HOUSEHOLD APPLIANCE REPAIRER-C Primary Care Provider Active Start: March 31, 2025 End: March 31, 2025 Shira Arias HOUSEHOLD APPLIANCE REPAIRER, HOUSEHOLD APPLIANCE REPAIRER-C Referring Provider Active Start: March 31, 2025 End: March 31, 2025 Bing Temple PA, PA-C Attending Provider Active Start: March 31, 2025 End: March 31, 2025 Team Status: Inactive Member Role/Relationship Status Dates Shira Arias HOUSEHOLD APPLIANCE REPAIRER, HOUSEHOLD APPLIANCE REPAIRER-C Primary Care Provider Active Start: April 07, 2025 End: April 07, 2025 Shira Arias HOUSEHOLD APPLIANCE REPAIRER, HOUSEHOLD APPLIANCE REPAIRER-C Referring Provider Active Start: April 07, 2025 End: April 07, 2025 Bing Temple PA, PA-C Attending Provider Active Start: April 07, 2025 End: April 07, 2025 Team Status: Inactive Member Role/Relationship Status Dates Shira Arias HOUSEHOLD APPLIANCE REPAIRER, HOUSEHOLD APPLIANCE REPAIRER-C Primary Care Provider Active Start: May 03, 2025 End: May 03, 2025 Shira Arias HOUSEHOLD APPLIANCE REPAIRER, HOUSEHOLD APPLIANCE REPAIRER-C Referring Provider Active Start: May 03, 2025 End: May 03, 2025 Dr. Denys Babin DO Attending Provider Active Start: May 03, 2025 End: May 03, 2025 Team Status: Active Member Role/Relationship Status Dates Shira Arias HOUSEHOLD APPLIANCE REPAIRER, HOUSEHOLD APPLIANCE REPAIRER-C Primary Care Provider Active Start: May 03, 2025 Shira Arias HOUSEHOLD APPLIANCE REPAIRER, HOUSEHOLD APPLIANCE REPAIRER-C Referring Provider Active Start: May 03, 2025 Dr. Denys Babin DO Attending Provider Active Start: May 03, 2025 Dr. Denys Babin , Other Provider Active St art: May 03, 2025 (unrecognized sect ion and content) No Status Records FoundNo Status Records FoundNo Status Records FoundNo Status Records Found INFORMATION SOURCE (unrecogn ized section and content) DATE CREATED AUTHOR 05/29/2024 [facility] ([place]) DATE CREATED AUTHOR AUTHOR'S ORGANIZ ATION 08/16/2024 [facility] DATE CREATED AUTHOR AUTHOR'S ORGANIZ ATION 02/05/2025 [facility] DATE CREATED AUTHOR AUTHOR'S ORGANIZ ATION 05/02/2025 [facility] FOR RECORDS PERTAINING TO PATIENTS WHO ARE [...] BE BASED ON THE PRIMARY CLINICAL RECORDS. [facility] [facility]. provides no warranty or guarantee of the accuracy or completeness of information in this document.
--- OUTSIDE RECORDS SUMMARY | 2025-05-05 02:43 | XMS RPT_ITS | CCD ---
Author Organization [facility] Care Team Providers Care Dishroom Attendant Name Role Phone LORSON SENIOR OFFICER-TRACK LAYING EQUIPMENT OPERATOR, SHIRA Primary Care Physician SWANSIGER SENIOR OFFICER-TRACK LAYING EQUIPMENT OPERATOR, CAYLA Griffiths Attending U navailable LORSON SENIOR OFFICER-TRACK LAYING EQUIPMENT OPERATOR, [place] Primary Care Unavail able SWANSIGER SENIOR OFFICER-TRACK LAYING EQUIPMENT OPERATOR, CAYLA Griffiths Attending U navailable LORSON SENIOR OFFICER-TRACK LAYING EQUIPMENT OPERATOR, [place] Primary Care Unavail able LORSON SENIOR OFFICER-TRACK LAYING EQUIPMENT OPERATOR, SHIRA Attending Unavail able LORSON SENIOR OFFICER-TRACK LAYING EQUIPMENT OPERATOR, [place] Primary Care Unavail able SWANSIGER SENIOR OFFICER-TRACK LAYING EQUIPMENT OPERATOR, CAYLA Griffiths Attending U navailable LORSON SENIOR OFFICER-TRACK LAYING EQUIPMENT OPERATOR, [place] Primary Care Unavail able LORSON SENIOR OFFICER-TRACK LAYING EQUIPMENT OPERATOR, [place] Primary Care Unavail able SWANSIGER SENIOR OFFICER-TRACK LAYING EQUIPMENT OPERATOR, CAYLA Griffiths Attending U navailable SEFFENS SENIOR OFFICER-TRACK LAYING EQUIPMENT OPERATOR, VANGIE Attending Unavai lable LORSON SENIOR OFFICER-TRACK LAYING EQUIPMENT OPERATOR, [place] Primary Care Unavail able Lorson PARIMUTUEL TICKET CHECKER-C, [place] Primary Care Provider Dr. Rod Ross DO Emergency Provider Dr. Seth Paiz DO Admit Provider Unavail able Dr. Seth Paiz DO Other Provider Unavail able Dr. Edwina Kimball DO Attending Provider Dr. Cruz Arciniega DO Other Provider Dr. Seth Paiz DO Referring Provider Unav ailDr. Denys Suarez DO Attending Provider Dr. Jose Lubin MD Attending Provider Dr. Jose Lubin MD Referring Provider [phone] Dr. Cruz Arciniega DO Attending Provider Dr. Edwina Kimball DO Other Provider Lorson PARIMUTUEL TICKET CHECKER-C, Shira Referring Provider [phone] Hu CEVALLOS, Dr. Maya Attending Provider Hu CEVALLOS, Dr. Maya Referring Provider Olaf NAVARRO, Dr. Mcfarlane Other Provider Holly NAVARRO, Dr. Davey Emergency Provider Primitivo NAVARRO, Dr. Arroyo Admit Provider Olaf NAVARRO, Dr. Mcfarlane Referring Provider Navid CEVALLOS, Dr. Lyon Other Provider [phone] Irina CEVALLOS, Dr. Coleman Other Provider Hu CEVALLOS, Dr. Maya Other Provider Navid CEVALLOS, Dr. Lyon Attending Provider de Emil NAVARRO, Dr. Ann Referring Provider Unav ailable Friend , Dr. Mcfarlane Attending Provider Amee CEVALLOS, Dr. Garcia Attending Provider Khang PARIMUTUEL TICKET CHECKER-C, Cayla Attending Provider Khang PARIMUTUEL TICKET CHECKER-C, Cayla Referring Provider SANDIE SENIOR OFFICER-TRACK LAYING EQUIPMENT OPERATOR, CAYLA Griffiths Attending U navailable LORSON SENIOR OFFICER-TRACK LAYING EQUIPMENT OPERATOR, [facility] Care Unavail able SANDIE SENIOR OFFICER-TRACK LAYING EQUIPMENT OPERATOR, CAYLA Griffiths Attending U navailable LORSON SENIOR OFFICER-TRACK LAYING EQUIPMENT OPERATOR, [facility] Care Unavail able MICHENER SENIOR OFFICER-TRACK LAYING EQUIPMENT OPERATOR, MICHELA Griffiths Attending Unav ailable LORSON SENIOR OFFICER-TRACK LAYING EQUIPMENT OPERATOR, [facility] Care Unavail able Lorson PARIMUTUEL TICKET CHECKER-C, [place] Primary Care Provider John CEVALLOS, Dr. Vasquez Attending Provider John CEVALLOS, Dr. Vasquez Referring Provider Juana PARIMUTUEL TICKET CHECKER-C, Shira Referring Provider [phone] Olaf NAVARRO, Dr. Mcfarlane Attending Provider Primitivo NAVARRO, Dr. Arroyo Other Provider Hu CEVALLOS, Dr. Maya Attending Provider Hu CEVALLOS, Dr. Maya Referring Provider Jonelle PARIMUTUEL TICKET CHECKER-C, Michela Griffiths Attending Provider Unava alexa Sal NP-C, Michela Griffiths Referring Provider Unava alexa Redd MD, Dr. Lyon Attending Provider Navid CEVALLOS, Dr. Lyon Referring Provider Rene CEVALLOS, Dr. Castellano Other Provider Unavailable Navid CEVALLOS, Dr. Lyon Admit Provider Maverick PA-C, Bing Attending Provider Maverick PA-C, Bing Referring Provider Juana PARIMUTUEL TICKET CHECKER, [facility] Unavailable Camron Shoemaker Attending Unavailable Camron Shoemaker Referring Unavailable Camron Shoemaker Admitting Unavailable Gray López Consulting Unavailable Bing Hadley Attending Unavailable Lorson PARIMUTUEL TICKET CHECKER, [facility] Unavailable Bing Hadley Referring Unavailable Francesco Lui Attending Unavailable Francesco Lui Referring Unavailable Lorson PARIMUTUEL TICKET CHECKER, [facility] Unavailable Camron Redd Attending Unavailable Lorson PARIMUTUEL TICKET CHECKER, [facility] Unavailable Camron Shoemaker Referring Unavailable Cruz Arciniega Consulting Unavailable Cruz Arciniega Admitting Unavailable Francesco Lui Attending Unavailable Lorson PARIMUTUEL TICKET CHECKER, [facility] Unavailable Camron Shoemaker Consulting Unavailable Jared Arevalo Consulting Unavailable Lorson PARIMUTUEL TICKET CHECKER, [place] Referring Unavailable Lorson PARIMUTUEL TICKET CHECKER, [place] [facility] Unavailable Olaf, Denys Attending Unavailable Cayla Quiñonez Consulting Unavailable Lorson PARIMUTUEL TICKET CHECKER, [facility] Unavailable Michela Sal Attending Unavailable Rahul Salista K Referring Unavailable Edwina Kimball Attending Unavailable L[place]on PARIMUTUEL TICKET CHECKER, [facility] Unavailable Seth Paiz Admitting Unavailable Seth Paiz Consulting Unavailable Cruz Arciniega Consulting Unavailable Lorson PARIMUTUEL TICKET CHECKER, [facility] Unavailable Michela Sal Attending Unavailable Rahul Salista K Referring Unavailable Lorson PARIMUTUEL TICKET CHECKER, [facility] Unavailable Pedro Lopez Attending Unavailable Pedro Lopez Referring Unavailable Olaf, Denys Referring Unavailable oJse Lubin Attending Unavailable Lorson PARIMUTUEL TICKET CHECKER, [facility] Unavailable Jose Lubin Attending Unavailable AmeeJose vasquez Referring Unavailable Lorson PARIMUTUEL TICKET CHECKER, [facility] Unavailable Friend, Denys Attending Unavailable Lorson PARIMUTUEL TICKET CHECKER, [facility] Unavailable Seth Paiz Referring Unavailable Lorson PARIMUTUEL TICKET CHECKER, [place] Referring Unavailable Francesco Lui Attending Unavailable Lorson PARIMUTUEL TICKET CHECKER, [facility] Unavailable Lorson PARIMUTUEL TICKET CHECKER, [place] Referring Unavailable Maverick YOUNG Bing Attending Unavailable Lorson PARIMUTUEL TICKET CHECKER, [facility] Unavailable Cruz Arciniega Consulting Unavailable Cruz Arciniega Admitting Unavailable Lorson PARIMUTUEL TICKET CHECKER, [facility] Unavailable Camron Shoemaker Attending Unavailable Mendoza Luikash Referring Unavailable Camron Shoemaker Consulting Unavailable Jared Arevalo Consulting Unavailable Mendoza Luikash Consulting Unavailable Friend, Denys Attending Unavailable Francesco Lui Attending Unavailable Lorson PARIMUTUEL TICKET CHECKER, [place] Referring Unavailable Friend, Denys Attending Unavailable Lorson PARIMUTUEL TICKET CHECKER, [facility] Unavailable Friend, Denys Attending Unavailable Lorson PARIMUTUEL TICKET CHECKER, [facility] Unavailable Seth Paiz Consulting Unavailable Seth Paiz Admitting Unavailable Seth Paiz Referring Unavailable Cruz Arciniega Consulting Unavailable Ediwna Kimball Consulting Unavailable Edwina Kimball Attending Unavailable Cruz Arciniega Attending Unavailable Lorson PARIMUTUEL TICKET CHECKER, [place] Referring Unavailable Friend, Denys Attending Unavailable Lorson PARIMUTUEL TICKET CHECKER, [facility] Unavailable Friend, Denys Consulting Unavailable Friend, Denys Attending Unavailable Lorson PARIMUTUEL TICKET CHECKER, [place] Referring Unavailable Lorson PARIMUTUEL TICKET CHECKER, [facility] Unavailable Lorson PARIMUTUEL TICKET CHECKER, [facility] Unavailable Cayla Quiñonez Attending Unavailable Cayla Quiñonez Referring Unavailable Lorson PARIMUTUEL TICKET CHECKER, [facility] Unavailable Camron Shoemaker Referring Unavailable Camron Shoemaker Admitting Unavailable Camron Shoemaker Attending Unavailable Rene, Gray Consulting Unavailable Camron Shoemaker Consulting Unavailable Lorson PARIMUTUEL TICKET CHECKER, [facility] Unavailable Bortz Camron Referring Unavailable BorCamron ortiz Attending Unavailable Rene, Gray Consulting Unavailable Camron Shoemaker Consulting Unavailable Seth Paiz Attending Unavailable Cruz Arciniega Attending Unavailable Lorson PARIMUTUEL TICKET CHECKER, [facility] Unavailable Cayla Quiñonez Attending Unavailable Lorson PARIMUTUEL TICKET CHECKER, [place] Referring Unavailable Lorson PARIMUTUEL TICKET CHECKER, [place] Referring Unavailable Maverick YOUNG, Bing Attending Unavailable Lorson PARIMUTUEL TICKET CHECKER, [facility] Unavailable Lorson PARIMUTUEL TICKET CHECKER, [place] Referring Unavailable Maverick YOUNG Bing Attending Unavailable Lorson PARIMUTUEL TICKET CHECKER, [facility] [facility] Unavailable Juana PARIMUTUEL TICKET CHECKER, [facility] Unavailable Camron Shoemaker Attending Unavailable Juana PARIMUTUEL TICKET CHECKER, [place] Referring Unavailable Juana PARIMUTUEL TICKET CHECKER-C, [place] Primary Care Provider [phone] Dr. Camron Shoemaker MD Attending Provider Dr. Camron Shoemaker MD Other Provider Juana PARIMUTUEL TICKET CHECKER-C, Shira Referring Provider Dr. Denys Babin DO Attending Provider Dr. Denys Babin DO Other Provider Dr. Benedict Phillip DO Emergency Provider Nannette CEVALLOS, Dr. Eileen Steel Attending Provider Nannette CEVALLOS, Dr. Eileen Steel Admit Provider Medications Current Medications Medication Drug Class(es) Dates Sig (Normalized) Sig (Original) [place] (Nk) (4 sources) Start: 05-05-2025 [place] (Nk) A ctive May 05, 2025 12:00am Start: 04-07-2025 [place] (Nk) A ctive April 07, 2025 12:00am Start: 12-31-2024 [place] (Nk) A ctive December 31, 2024 12:00am Completed/Discontinued Medications Medication Drug Class(es) Dates Sig (Normalized) Sig (Original) amoxicillin 875 mg / clavulanate 125 mg oral tablet (19 sources) Penicillin-class Antibacterial Start: 05-03-2025 End: 05-05-2025 Amoxicillin-Pot Clavulanate 875-125 mg tablet Discontinued 1 {tbl} PO Q12H 14 0 May 03, 2025 12:00am May 05, 2025 12:33am Start: 03-18-2025 End: 03-25-2025 Amoxicillin-Pot Clavulanate 875-125 mg tablet Discontinued 1 {tbl} PO Q12H 6 3 0 March 18, 2025 12:00am March 25, 2025 1:09pm Cholecystitis Cholecystitis, unspecified Start: 12-16-2024 End: 12-31-2024 Amoxicillin-Pot Clavulanate 875-125 mg tablet Discontinued 1 {tbl} PO TWICE A DAY 14 7 0 December 16, 2024 12:00am December 31, 2024 10:06am oxyCODONE hydrochloride 5 mg oral tablet (7 sources) Opioid Agonist Start: 03-18-2025 End: 03-25-2025 [...] Documented Date Episodic/Chronic Bacterial infection; unspecified site (18 sources) Bacteremia caused by Gram-negative bacteria; Translations: [...] surgery 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, unspecified] Onset: 5 Chronic Other liver diseases (20 sources) Jaundice; Translations: [Unspecified jaundice] 2024 Episodic Other liver diseases (20 sources) Elevated liver enzymes level; Translations: [High liver transaminase level] 12-14-2024 Episodic Other liver diseases (9 sources) ALT (SGPT) level raised; Translations: [High [...] Chronic Other nutritional; endocrine; and metabolic disorders (16 sources) Body mass index 25-29 - overweight; Translations: [Overweight] 09-15-2024 Episodic Residual codes; unclassified (2 sources) Acquired absence of other specified parts of digestive tract; Translations: [Acquired absence of other specified parts of digestive tract] Onset: 5 Episodic Residual codes; unclassified (1 source) Past history of procedure; Translations: [Other specified postprocedural states] 05-04-2025 Episodic Residual codes; unclassified (1 source) Rigor; Translations: [Other general symptoms and signs] 05-04-2025 Episodic Unclassified (12 sources) Patient encounter status 01-29-2024 Unclassified (4 sources) call for appt when able Unclassified (8 sources) Follow-up for elevated liver chemistry, it is decreasing. Unclassified (1 source) Elevation of levels of liver transaminase levels; Translations: [Elevation of levels of liver transaminase levels] Onset: Unclassified (2 sources) Status post laparoscopic cholecystectomy Unclassified (4 sources) Z90.49 - Acquired absence of other [...] Test Name Value Interpretation Reference Range Facility Absolute lymphocyte countOrd ered By: Benedict Phillip on 05-04-2025 Lymphocytes Auto (Unsp spec) [#/Vol] 0.33 10*3/uL Low 0.83-4.51 [facility] Absolute neutrophil countOrd ered By: Benedict Phillip on 05-04-2025 Neutrophils (Bld) [#/Vol] 8.8 10*3/uL High 2.0-7.7 [facility] Anion gap in Serum or Plasma Ordered By: Benedict Phillip on 05-04-2025 Anion gap [Moles/Vol] 14 mmol/L 5-15 [facility] Automated lymphocyte count a s percentage of total leukocytesOrdered By: Benedict Phillip on 05-04-2025 Lymphocytes/100 WBC Auto (Unsp spec) 3.4 % Low 19-41 [facility] BUN/creatinine ratioOrdered By: Benedict Phillip on 05-04-2025 Urea nitrogen/Creatinine [Mass ratio] 10.8 mg/mg 10-20 [facility] Basophil percentageOrdered B y: Benedict Phillip on 05-04-2025 Basophils/100 WBC (Bld) 0.1 % 0-1 [facility] Bilirubin directOrdered By: Benedict Phillip on 05-04-2025 Bilirubin.direct [Mass/Vol] 3.03 mg/dL High 0.00-0.30 [facility] Bilirubin, totalOrdered By: Benedict Phillip on 05-04-2025 Bilirubin [Mass/Vol] 4.25 mg/dL High 0.00-1.30 [facility] Carbon dioxide, total [Moles /volume] in Central venous bloodOrdered By: Benedict Phillip on 05-04-2025 CO2 [Moles/Vol] 20.9 mmol/L Low 21.0-32.0 [facility] Chloride assayOrdered By: Arabella Phillip on 05-04-2025 Chloride [Moles/Vol] 103 mmol/L 98-108 [facility] Eosinophil percentageOrdered By: Benedict Phillip on 05-04-2025 Eosinophils/100 WBC (Bld) 0.0 % 0-5 [facility] Erythrocyte distribution wid th ratioOrdered By: Benedict Phillip on 05-04-2025 Erythrocyte distribution width (RBC) [Ratio] 12.6 % 11.6-14.6 [facility] Erythrocyte distribution wid th standard deviationOrdered By: Benedict Phillip on 05-04-2025 Erythrocyte distribution width (RBC) [Ratio] 39.7 fl 35.1-43.9 [facility] Glomerular filtration rate ( GFR) estimation/1.73 sq m using serum, plasma, or whole bOrdered By: Benedict Phillip on 05-04-2025 GFR/1.73 sq M.predicted among non-blacks MDRD (S/P/Bld) [Vol rate/Area] 89 mL/min/{1.73_m2} >60 [facility] Comment on above: mL/min/1.73m2 CKD-EP I Creatinine Equation (2020) Hematocrit Auto (Bld) [Volum e fraction]Ordered By: Benedict Phillip on 05-04-2025 Hematocrit (Bld) [Volume fraction] 44.6 % 40-54 [facility] Hemoglobin measurementOrdere d By: Benedict Phillip on 05-04-2025 Hemoglobin (Bld) [Mass/Vol] 15.5 g/dL 13.0-16.5 [facility] Immature granulocytes/100 WB C Auto (Bld)Ordered By: Benedict Phillip on 05-04-2025 Immature granulocytes/100 WBC (Bld) 0.900 % 0.0-0.9 [facility] Comment on above: IG% - Immature Granu locytes (promyelocytes, myelocytes and metamyelocytes) > 1% indicates that a LEFT SHIFT is Present. Laboratory - Chemistry and C hemistry - challengeOrdered By: Benedict Phillip on 05-04-2025 AST [Catalytic activity/Vol] 493 U/L High <38 [facility] Lactic acid measurementOrder ed By: Benedict Phillip on 05-04-2025 Lactate [Moles/Vol] 1.1 mmol/L 0.0-2.0 [facility] Lipase measurementOrdered By : Benedict Phillip on 05-04-2025 Lipase [Catalytic activity/Vol] 55 U/L 13-75 [facility] Comment on above: Please note:LIPASE r evised reference range effective 23. New Lipase methodology. Expected to produce lower values than the previous assay method. NEW Reference Range: 13 - 75 U/L MCV (mean corpuscular volume ) determinationOrdered By: Benedict Phillip on 05-04-2025 MCV (RBC) [Entitic vol] 86.3 fL 80-94 [facility] Mean corpuscular hemoglobin (MCH) determinationOrdered By: Benedict Phillip on 05-04-2025 MCH (RBC) [Entitic mass] 30.0 pg 27.0-32.0 [facility] Mean corpuscular hemoglobin concentration (MCHC) determinationOrdered By: Benedict Phillip on 05-04-2025 MCHC (RBC) [Mass/Vol] 34.8 g/dL 32-36 [facility] Mean platelet volume determi nationOrdered By: Benedict Phillip on 05-04-2025 Platelet mean volume (Bld) [Entitic vol] 9.1 fL 6.2-12.0 [facility] Monocyte percentageOrdered B y: Benedict Phillip on 05-04-2025 Monocytes/100 WBC (Bld) 4.1 % 0-10 [facility] Neutrophil percentageOrdered By: Benedict Phillip on 05-04-2025 Neutrophils/100 WBC (Bld) 91.5 % High 47-70 [facility] Nucleated red blood cell per centageOrdered By: Benedict Phillip on 05-04-2025 Nucleated RBC/100 WBC (Bld) [Ratio] 0 % 0-5 [facility] Platelet countOrdered By: Arabella Phillip on 05-04-2025 Platelets (Bld) [#/Vol] 182 10*3/uL 150-450 [facility] Potassium measurement (mass/ volume)Ordered By: Benedict Phillip on 05-04-2025 Potassium (Unsp spec) [Mass/Vol] 3.4 mmol/L 3.3-5.1 [facility] Procalcitonin [Mass/volume] in Serum or Plasma by ImmunoassayOrdered By: Benedict Phillip on 05-04-2025 Procalcitonin IA [Mass/Vol] 0.75 ng/mL High <0.11 [facility] Comment on above: Interpretation:<0.10 -0.25 ng/mL: Antibiotic therapy discouraged. Bacterial infection unlikely.0.25-0.50 ng/mL: Antibiotic therapy encouraged. Bacterial infection possible.>0.50 ng/mL: Antibiotic therapy strongly encouraged. Suggestive of presence of bacterial infection.PCT should always be interpreted in the clinical context of the patient. Therefore, clinicians should use the PCT results in conjunction with other laboratory findings and clinical signs of the patient. RBC Auto (Bld) [#/Vol]Ordere d By: Benedict Phillip on 05-04-2025 RBC (Bld) [#/Vol] 5.17 10*6/uL 4.6-6.2 [facility] Serum creatinine measurement (mass/volume)Ordered By: Benedict Phillip on 05-04-2025 Creatinine [Mass/Vol] 1.07 mg/dL 0.70-1.20 [facility] Serum globulin measurementOr dered By: Benedict Phillip on 05-04-2025 Globulin (S) [Mass/Vol] 2.6 g/dL 2.2-4.2 [facility] Serum glucose measurement (m ass/volume)Ordered By: Benedict Phillip on 05-04-2025 Glucose [Mass/Vol] 134 mg/dL High 70-99 [facility] Serum or plasma alanine mays otransferase (ALT) measurementOrdered By: Benedict Phillip on 05-04-2025 ALT [Catalytic activity/Vol] 883 U/L High <47 [facility] Serum or plasma albumin marquise urement (mass/volume)Ordered By: Benedict Phillip on 05-04-2025 Albumin [Mass/Vol] 4.2 g/dL 3.5-5.0 [facility] Serum or plasma alkaline daniel sphatase measurementOrdered By: Benedict Phillip on 05-04-2025 ALP [Catalytic activity/Vol] 158 U/L High 40-129 [facility] Serum or plasma calcium marquise urement (mass/volume)Ordered By: Benedict Phillip on 05-04-2025 Calcium [Mass/Vol] 9.1 mg/dL 7.6-11.0 [facility] Serum or plasma urea nitroge n measurement (mass/volume)Ordered By: Benedict Phillip on 05-04-2025 Urea nitrogen [Mass/Vol] 12 mg/dL 4-19 [facility] Sodium levelOrdered By: Matthew Phillip on 05-04-2025 Sodium [Moles/Vol] 138 mmol/L 133-145 [facility] Total proteinOrdered By: Basil Phillip on 05-04-2025 Protein [Mass/Vol] 6.8 g/dL 5.9-8.4 [facility] White blood cell (WBC) count Ordered By: Benedict Phillip on 05-04-2025 WBC (Bld) [#/Vol] 9.6 10*3/uL 4.4-11.0 [facility] MR/PAT.ANEon 04-27-2025 MR/PAT.ANE Normal [facility] Surgery Visit Reporton 04-07 Surgery Visit Report Normal [facility] Surgery Visit Reporton 03-31 Surgery Visit Report Normal [facility] Hepatobilliary Imagingon Hepatobilliary Imaging Normal [facility] Surgery Visit Reporton 03-25 Surgery Visit Report Normal [facility] Absolute lymphocyte countOrd ered By: Camron Shoemaker on 03-18-2025 Lymphocytes Auto (Unsp spec) [#/Vol] 1.52 10*3/uL 0.83-4.51 [facility] Absolute neutrophil countOrd ered By: Camron Shoemaker on 03-18-2025 Neutrophils (Bld) [#/Vol] 6.8 10*3/uL 2.0-7.7 [facility] Anion gap in Serum or Plasma Ordered By: Camron Shoemaker on 03-18-2025 Anion gap [Moles/Vol] 10 mmol/L 5- [facility] Automated lymphocyte count a s percentage of total leukocytesOrdered By: Camron Shoemaker on 03-18-2025 Lymphocytes/100 WBC Auto (Unsp spec) 16.5 % Low [facility] BUN/creatinine ratioOrdered By: Camron Shoemaker on 03-18-2025 Urea nitrogen/Creatinine [Mass ratio] 11.9 mg/mg 10- [facility] Basophil percentageOrdered B y: Camron Shoemaker on 03-18-2025 Basophils/100 WBC (Bld) 0.2 % 0-1 [facility] Bilirubin, totalOrdered By: Camron Shoemaker on 03-18-2025 Bilirubin [Mass/Vol] 0.85 mg/dL 0.00-1.30 [facility] CBC W/Diff, Automatedon 02-28 Absolute Lymph 1.52 X10 3/uL Normal 0.83-4.51 [facility] Comment on above: Performed By: #### L 100.0100, L500.4050 ####[facility] [id number] [place], [address] Absolute Neut 6.8 X10 3/uL Normal 2.0-7.7 [facility] Comment on above: Performed By: #### L 100.0100, [id number] ####[facility] [id number] [place], [address] Basophils/100 WBC (Bld) 0.2 % Normal 0-1 [facility] Comment on above: Performed By: #### L 100.0100, [id number] ####[facility] [address] [place], [address] Eosinophils/100 WBC (Bld) 0.0 % Normal 0-5 [facility] Comment on above: Performed By: #### L 100.0100, [id number] ####[facility] [id number] [place], [address] Erythrocyte distribution width (RBC) [Ratio] 13.6 % Normal 11.6-14.6 [facility] Comment on above: Performed By: #### L 100.0100, [id number] ####[facility] [address] [place], [address] Hematocrit (Bld) [Volume fraction] 43.6 % Normal 40-54 [facility] Comment on above: Performed By: #### L 100.0100, [id number] ####[facility] [id number] [place], [address] Hemoglobin (Bld) [Mass/Vol] 14.8 g/dL Normal 13.0-16.5 [facility] Comment on above: Performed By: #### L 100.0100, [id number] ####[facility] [id number] [place], [address] IG% 0.500 Normal 0.0-0.9 [facility] Comment on above: Result Comment: IG% - Immature Granulocytes (promyelocytes, myelocytes andmetamyelocytes) > 1% indicates that a LEFT SHIFT is Present. Performed By: #### L 100.0100, [id number] ####[facility] [address] [place], [address] Lymphocytes/100 WBC (Bld) 16.5 % Low 19-41 [facility] Comment on above: Performed By: #### L 100.0100, [id number] ####[facility] [address] [place], [address] MCH (RBC) [Entitic mass] 29.4 pg Normal 27.0-32.0 [facility] Comment on above: Performed By: #### L 100.0100, [id number] ####[facility] [address] [place], [address] MCHC (RBC) [Mass/Vol] 33.9 g/dL Normal 32-36 [facility] Comment on above: Performed By: #### L 100.0100, L500.4050 ####[facility] [address] [place], [address] MCV (RBC) [Entitic vol] 86.5 fL Normal 80-94 [facility] Comment on above: Performed By: #### L 100.0100, L500.4050 ####[facility] [address] [place], [address] Monocytes/100 WBC (Bld) 8.4 % Normal 0-10 [facility] Comment on above: Performed By: #### L 100.0100, L500.4050 ####[facility] [address] [place], [address] Neutrophils/100 WBC (Bld) 74.4 % High 47-70 [facility] Comment on above: Performed By: #### L 100.0100, L500.4050 ####[facility] [address] [place], [address] Nucleated RBC (Bld) [#/Vol] 0 10*3/uL Normal 0-5 [facility] Comment on above: Performed By: #### L 100.0100, L500.4050 ####[facility] [address] [place], [address] Platelet mean volume (Bld) [Entitic vol] 8.7 fL Normal 6.2-12.0 [facility] Comment on above: Performed By: #### L 100.0100, L500.4050 ####[facility] [address] [place], [address] Platelets (Bld) [#/Vol] 264 10*3/uL Normal 150-450 [facility] Comment on above: Performed By: #### L 100.0100, L500.4050 ####[facility] [address] [place], [address] RBC (Bld) [#/Vol] 5.04 10*6/uL Normal 4.6-6.2 [facility] Comment on above: Performed By: #### L 100.0100, L500.4050 ####[facility] [address] [place], [address] RDW SD 42.8 fl Normal 35.1-43.9 [facility] Comment on above: Performed By: #### L 100.0100, L500.4050 ####[facility] [address] [place], [address] WBC (Bld) [#/Vol] 9.2 10*3/uL Normal 4.4-11.0 [facility] Comment on above: Performed By: #### L 100.0100, L500.4050 ####[facility] [address] [place], [address] Carbon dioxide, total [Moles /volume] in Central venous bloodOrdered By: Camron Shoemaker on 03-18-2025 CO2 [Moles/Vol] 25.4 mmol/L 21.0-32.0 [facility] Chloride assayOrdered By: Stephanie Shoemaker on 03-18-2025 Chloride [Moles/Vol] 104 mmol/L 98-108 [facility] Comprehensive Metabolic Prof ilon 03-18-2025 Albumin [Mass/Vol] 4.0 g/dL Normal 3.5-5.0 [facility] Comment on above: Performed By: #### L 100.0100, L500.4050 ####[facility] [address] [place], [address] Albumin/Globulin [Mass ratio] 1.5 {ratio} Normal 0.9-2.4 [facility] Comment on above: Performed By: #### L 100.0100, L500.4050 ####[facility] [address] [place], [address] ALK PHOS 64 U/L Normal 40-129 [facility] Comment on above: Performed By: #### L 100.0100, L500.4050 ####[facility] [address] [place], [address] ALT [Catalytic activity/Vol] 65 U/L High <=46 [facility] Comment on above: Performed By: #### L 100.0100, L500.4050 ####[facility] [address] [place], [address] AST [Catalytic activity/Vol] 43 U/L High <=37 [facility] Comment on above: Performed By: #### L 100.0100, L500.4050 ####[facility] [address] [place], [address] Bilirubin [Mass/Vol] 0.85 mg/dL Normal 0.00-1.30 [facility] Comment on above: Performed By: #### L 100.0100, L500.4050 ####[facility] [address] [place], [address] BUN/CRE 11.9 RATIO Normal 10-20 [facility] Comment on above: Performed By: #### L 100.0100, L500.4050 ####[facility] [address] [place], [address] Calcium [Mass/Vol] 9.2 mg/dL Normal 7.6-11.0 [facility] Comment on above: Performed By: #### L 100.0100, L500.4050 ####[facility] [address] [place], [address] Chloride [Moles/Vol] 104 mmol/L Normal 98-108 [facility] Comment on above: Performed By: #### L 100.0100, L500.4050 ####[facility] [address] [place], [address] CO2 [Moles/Vol] 25.4 mmol/L Normal 21.0-32.0 [facility] Comment on above: Performed By: #### L 100.0100, L500.4050 ####[facility] [address] [place], [address] Creatinine [Mass/Vol] 1.00 mg/dL Normal 0.70-1.20 [facility] Comment on above: Performed By: #### L 100.0100, L500.4050 ####[facility] [address] [place], [address] ECRCL 113.19 ml/min Normal 50-250 [facility] Comment on above: Performed By: #### L 100.0100, L500.4050 ####[facility] [address] [place], [address] GAP 10 Normal 5-15 [facility] Comment on above: Performed By: #### L 100.0100, L500.4050 ####[facility] [address] [place], [address] GFR/1.73 sq M.predicted among non-blacks MDRD (S/P/Bld) [Vol rate/Area] 97 mL/min/{1.73_m2} Normal >60 [facility] Comment on above: Result Comment: mL/m in/1.73m2 CKD-EPI Creatinine Equation (2020) Performed By: #### L 100.0100, L500.4050 ####[facility] [address] [place], [address] Globulin (S) [Mass/Vol] 2.6 g/dL Normal 2.2-4.2 [facility] Comment on above: Performed By: #### L 100.0100, L500.4050 ####[facility] [address] [place], [address] Glucose [Mass/Vol] 114 mg/dL High 70-99 [facility] Comment on above: Performed By: #### L 100.0100, L500.4050 ####[facility] [address] [place], [address] Potassium [Moles/Vol] 4.0 mmol/L Normal 3.3-5.1 [facility] Comment on above: Performed By: #### L 100.0100, L500.4050 ####[facility] [address] [place], [address] Sodium [Moles/Vol] 139 mmol/L Normal 133-145 [facility] Comment on above: Performed By: #### L 100.0100, L500.4050 ####[facility] [address] [place], [address] T PROT 6.6 g/dL Normal 5.9-8.4 [facility] Comment on above: Performed By: #### L 100.0100, L500.4050 ####[facility] [address] [place], [address] Urea nitrogen [Mass/Vol] 12 mg/dL Normal 4-19 [facility] Comment on above: Performed By: #### L 100.0100, L500.4050 ####[facility] [address] [place], [address] Discharge Instructionon 02-28 Discharge Instruction Normal [facility] Eosinophil percentageOrdered By: Camron Shoemaker on 03-18-2025 Eosinophils/100 WBC (Bld) 0.0 % 0-5 [facility] Erythrocyte distribution wid th ratioOrdered By: Camron Shoemaker on 03-18-2025 Erythrocyte distribution width (RBC) [Ratio] 13.6 % 11.6-14.6 [facility] Erythrocyte distribution wid th standard deviationOrdered By: Camron Shoemaker on 03-18-2025 Erythrocyte distribution width (RBC) [Ratio] 42.8 fl 35.1-43.9 [facility] Glomerular filtration rate ( GFR) estimation/1.73 sq m using serum, plasma, or whole bOrdered By: Camron Shoemaker on 03-18-2025 GFR/1.73 sq M.predicted among non-blacks MDRD (S/P/Bld) [Vol rate/Area] 97 mL/min/{1.73_m2} >60 [facility] Comment on above: mL/min/1.73m2 CKD-EP I Creatinine Equation (2020) Hematocrit Auto (Bld) [Volum e fraction]Ordered By: Camron Shoemaker on 03-18-2025 Hematocrit (Bld) [Volume fraction] 43.6 % 40-54 [facility] Hemoglobin measurementOrdere d By: Camron Shoemaker on 03-18-2025 Hemoglobin (Bld) [Mass/Vol] 14.8 g/dL 13.0-16.5 [facility] Immature granulocytes/100 WB C Auto (Bld)Ordered By: Camron Shoemaker on 03-18-2025 Immature granulocytes/100 WBC (Bld) 0.500 % 0.0-0.9 [facility] Comment on above: IG% - Immature Granu locytes (promyelocytes, myelocytes and metamyelocytes) > 1% indicates that a LEFT SHIFT is Present. Laboratory - Chemistry and C hemistry - challengeOrdered By: Camron Shoemaker on 03-18-2025 AST [Catalytic activity/Vol] 43 U/L High <38 [facility] MCV (mean corpuscular volume ) determinationOrdered By: Camron Shoemaker on 03-18-2025 MCV (RBC) [Entitic vol] 86.5 fL 80-94 [facility] Mean corpuscular hemoglobin (MCH) determinationOrdered By: Camron Shoemaker on 03-18-2025 MCH (RBC) [Entitic mass] 29.4 pg 27.0-32.0 [facility] Mean corpuscular hemoglobin concentration (MCHC) determinationOrdered By: Camron Shoemaker on 03-18-2025 MCHC (RBC) [Mass/Vol] 33.9 g/dL 32-36 [facility] Mean platelet volume determi nationOrdered By: Camron Shoemaker on 03-18-2025 Platelet mean volume (Bld) [Entitic vol] 8.7 fL 6.2-12.0 [facility] Monocyte percentageOrdered B y: Camron Shoemaker on 03-18-2025 Monocytes/100 WBC (Bld) 8.4 % 0-10 [facility] Neutrophil percentageOrdered By: Camron Shoemaker on 03-18-2025 Neutrophils/100 WBC (Bld) 74.4 % High 47-70 [facility] Nucleated red blood cell per centageOrdered By: Camron Shoemaker on 03-18-2025 Nucleated RBC/100 WBC (Bld) [Ratio] 0 % 0-5 [facility] Platelet countOrdered By: Stephanie Shoemaker on 03-18-2025 Platelets (Bld) [#/Vol] 264 10*3/uL 150-450 [facility] Potassium measurement (mass/ volume)Ordered By: Camron Shoemaker on 03-18-2025 Potassium (Unsp spec) [Mass/Vol] 4.0 mmol/L 3.3-5.1 [facility] RBC Auto (Bld) [#/Vol]Ordere d By: Camron Shoemaker on 03-18-2025 RBC (Bld) [#/Vol] 5.04 10*6/uL 4.6-6.2 [facility] Serum creatinine measurement (mass/volume)Ordered By: Camron Shoemaker on 03-18-2025 Creatinine [Mass/Vol] 1.00 mg/dL 0.70-1.20 [facility] Serum globulin measurementOr dered By: Camron Shoemaker on 03-18-2025 Globulin (S) [Mass/Vol] 2.6 g/dL 2.2-4.2 [facility] Serum glucose measurement (m ass/volume)Ordered By: Camron Shoemaker on 03-18-2025 Glucose [Mass/Vol] 114 mg/dL High 70-99 [facility] Serum or plasma alanine mays otransferase (ALT) measurementOrdered By: Camron Shoemaker on 03-18-2025 ALT [Catalytic activity/Vol] 65 U/L High <47 [facility] Serum or plasma albumin marquise urement (mass/volume)Ordered By: Camron Shoemaker on 03-18-2025 Albumin [Mass/Vol] 4.0 g/dL 3.5-5.0 [facility] Serum or plasma albumin/glob ulin mass ratioOrdered By: Camron Shoemaker on 03-18-2025 Albumin/Globulin [Mass ratio] 1.5 {ratio} 0.9-2.4 [facility] Serum or plasma alkaline daniel sphatase measurementOrdered By: Camron Shoemaker on 03-18-2025 ALP [Catalytic activity/Vol] 64 U/L 40-129 [facility] Serum or plasma calcium marquise urement (mass/volume)Ordered By: Camron Shoemaker on 03-18-2025 Calcium [Mass/Vol] 9.2 mg/dL 7.6-11.0 [facility] Serum or plasma urea nitroge n measurement (mass/volume)Ordered By: Camron Shoemaker on 03-18-2025 Urea nitrogen [Mass/Vol] 12 mg/dL 4-19 [facility] Sodium levelOrdered By: Kan Shoemaker on 03-18-2025 Sodium [Moles/Vol] 139 mmol/L 133-145 [facility] Total proteinOrdered By: Anuj Shoemaker on 03-18-2025 Protein [Mass/Vol] 6.6 g/dL 5.9-8.4 [facility] White blood cell (WBC) count Ordered By: Camron Shoemaker on 03-18-2025 WBC (Bld) [#/Vol] 9.2 10*3/uL 4.4-11.0 [facility] MR/PAT.ANEon 03-17-2025 MR/PAT.ANE Normal [facility] MR/POSTOP.ANEon 03-17-2025 MR/POSTOP.ANE Normal [facility] MR/POSTOP.ANE Normal [facility] MR/IRXGAGKC1bb 03-17-2025 MR/POSTOPAN2 Normal [facility] Operative Reporton Operative Report Normal [facility] Surgery Specimen Level IIIon 03-17-2025 Surgery Specimen Level III Normal [facility] Comment on above: Performed By: #### P SUIII ####[facility] [address] [place], [address] 12 Lead EKGon 03-08-2025 12 Lead EKG Normal [facility] Electrocardiogram reportOrde red By: Camron Redd on 03-08-2025 EKG study [facility] Cardiovascular Services [address] [place] [address] 12 Lead EKG 03/08/25 0835 MR#: [id number] Acct: [id number] Name: DIANE CONNORS Rep #:[id number] : 1985 39 From: Camron randall MD Attending Dr: Dr. Camron Shoemaker MD Status: PRE MIC Ordering Dr: Gray López MD Date: Location: [facility] [place] Sex: M C Admitted: Test Reason : [...] change was found Confirmed by Camron Redd ([id number]), story editor CHAVA CASEY ([id number]) on 03/08/2025 10:43:33 AM Referred By: Camron Shoemaker Confirmed By: Camron Redd 03/08/25 1043 Date _ Camron Redd MD CC: AGUILAR Arias; Dr. Gray López MD; Dr. Camron Shoemaker MD ~ Signed [facility] Work Phone: Liver Profileon 03-08-2025 Albumin [Mass/Vol] 4.4 g/dL Normal 3.5-5.0 [facility] Comment on above: Performed By: #### L 500.3400 ####[facility] [address] [place], [address] ALK PHOS 73 U/L Normal 40-129 [facility] Comment on above: Performed By: #### L 500.3400 ####[facility] [address] [place], [address] ALT [Catalytic activity/Vol] 38 U/L Normal <=46 [facility] Comment on above: Performed By: #### L 500.3400 ####[facility] [address] [place], [address] AST [Catalytic activity/Vol] 33 U/L Normal <=37 [facility] Comment on above: Performed By: #### L 500.3400 ####[facility] [address] [place], [address] Bilirubin [Mass/Vol] 0.58 mg/dL Normal 0.00-1.30 [facility] Comment on above: Performed By: #### L 500.3400 ####[facility] [address] [place], [address] Bilirubin.direct [Mass/Vol] 0.22 mg/dL Normal 0.00-0.30 [facility] Comment on above: Performed By: #### L 500.3400 ####[facility] [address] [place], [address] Globulin (S) [Mass/Vol] 2.7 g/dL Normal 2.2-4.2 [facility] Comment on above: Performed By: #### L 500.3400 ####[facility] [address] [place], [address] T PROT 7.1 g/dL Normal 5.9-8.4 [facility] Comment on above: Performed By: #### L 500.3400 ####[facility] [address] [place], [place], [address] MR/PAT.ANEon 03-08-2025 MR/PAT.ANE Normal [facility] MR/PAT.ANE Normal [facility] Hepatobilliary Imagingon Hepatobilliary Imaging Normal [facility] Misc.on 01-09-2025 [facility] Misc. COMMENT Normal . [facility] Comment on above: Order Comment: [id number] 5APOLIPOPROTEIN B Result Comment: Test Ordered: [id number] Apolipoprotein BApolipoprotein B 122 [H ] mg/dL Reference Range: <90 Desirable < 90 Borderline High 90 - 99 High 100 - 130 Very High >130 ASCVD RISK THERAPEUTIC TARGET CATEGORY APO B (mg/dL) Very High Risk <80 (if extreme risk <70) High Risk <90 Moderate Risk <90Performed at: [facility] [address] [id number] Director: Kelly Jansen MD, Phone: [phone] at: [address] [id number] Director: Raj Dick PhD, Phone: [phone] Performed By: #### L 3410.9998, L501.1400, L300.4700, L500.4100, L803.0600, L3400.4600, L501.6710, L3100.7870 ####[facility] [address] [place], [address] CRP, High Sensitivity [id number] on 01-07-2025 CRP, HIGH SENS 2.61 mg/L Normal 0.00-3.00 [facility] Comment on above: Result Comment: Rela tive Risk for Future Cardiovascular Event Low <1.00 Average 1.00 - 3.00 High >3.00 Performed By: #### L 3410.9998, L501.1400, L300.4700, L500.4100, L803.0600, L3400.4600, L501.6710, L3100.7870 ####[facility] [address] [place], [place], [address] L803.0600on 01-07-2025 HOMOCYSTEINE 9.0 umol/L Normal 0.0-14.5 [facility] Comment on above: Result Comment: Perf ormed at: [facility] [place] [id number] [place], [place] [id number] Director: Raj Dick PhD, Phone: [phone] Performed By: #### L 3410.9998, L501.1400, L300.4700, L500.4100, L803.0600, L3400.4600, L501.6710, L3100.7870 ####[facility] [address] [place], [address] [facility] Misc.on 01-07-2025 [facility] Misc. COMMENT Normal . [facility] Comment on above: Order Comment: [id number] 7CRP QUANT Result Comment: Test Ordered: [id number] C-Reactive Protein, QuantC-Reactive Protein, Quant 2 mg/L CB Reference Range: 0-10Performed at: [facility] [id number] Director: Raj Dick PhD, Phone: [phone] Performed By: #### L 3410.9998 ####[facility] [address] [place], [place], [address] Lipoprotein Aon 01-07-2025 Lipoprotein a [Moles/Vol] 16.5 nmol/L Normal <75.0 [facility] Comment on above: Result Comment: Note : Values greater than or equal to 75.0 nmol/L may indicate an independent risk factor for CHD, but must be evaluated with caution when applied to non- populations due to the influence of genetic factors on Lp(a) across ethnicities.Performed at: [facility] [place], [place] [id number] Director: Raj Dick PhD, Phone: [phone] Performed By: #### L 3410.9998, L501.1400, L300.4700, L500.4100, L803.0600, L3400.4600, L501.6710, L3100.7870 ####[facility] [address] [place], [address] C-reactive protein measureme nt by high sensitivity methodOrdered By: Michela Sal on 01-05-2025 C-reactive protein measurement by high sensitivity method 2.61 mg/L 0.00-3.00 [facility] Comment on above: Relative Risk for Fu ture Cardiovascular Event Low <1.00 Average 1.00 - 3.00 High >3.00 CRPon 01-05-2025 C-REACTIVE PROT < 3.00 Normal 0.0-3.0 [facility] Comment on above: Performed By: #### L 3410.9998, L501.1400, L300.4700, L500.4100, L803.0600, L3400.4600, L501.6710, L3100.7870 ####[facility] [address] [place], [place], [address] Calculated very low density lipoprotein (VLDL) cholesterol measurementOrdered By: Michela Sal on 01-05-2025 Calculated very low density lipoprotein (VLDL) cholesterol measurement 21 mg/dL 5-40 [facility] Fibrinogenon 01-05-2025 FIBRINOGEN 378 mg/dl Normal 203-444 [facility] Comment on above: Performed By: #### L 3410.9998, L501.1400, L300.4700, L500.4100, L803.0600, L3400.4600, L501.6710, L3100.7870 ####[facility] [address] [place], [address] LDL calc ser/plasOrdered By: Michela Sal on 04-08-2025 Cholesterol in LDL [Mass/Vol] 138 mg/dL [facility] Comment on above: Vwwkpcjobx=814-131 m g/dL & Higher Bijg=123 mg/dL or greater Result Comment: Bord smfmns=204-837 mg/dL Higher Ejmo=366 mg/dL or greater Performed By: #### L 3410.9998, L501.1400, L300.4700, L500.4100, L803.0600, L3400.4600, L501.6710, L3100.7870 ####[facility] [address] [place], [address] Lipid Profileon 01-05-2025 CHOL:HDL 4.03 Normal [facility] Comment on above: Performed By: #### L 3410.9998, L501.1400, L300.4700, L500.4100, L803.0600, L3400.4600, L501.6710, L3100.7870 ####[facility] [address] [place], [address] Cholesterol in VLDL [Mass/Vol] 21 mg/dL Normal 5-40 [facility] Comment on above: Performed By: #### L 3410.9998, L501.1400, L300.4700, L500.4100, L803.0600, L3400.4600, L501.6710, L3100.7870 ####[facility] [address] [place], [address] Lipoprotein a [Mass/Vol]Orde red By: Michela Sal on 01-05-2025 Lipoprotein a [Moles/Vol] 16.5 nmol/L <75.0 [facility] Comment on above: Note: Values greater than or equal to 75.0 nmol/L may indicate an independent risk factor for CHD, but must be evaluated with caution when applied to non- populations due to the influence of genetic factors on Lp(a) across ethnicities.Performed at: [facility] [address] [id number] Director: Raj Dick PhD, Phone: [phone] Screening total cholesterol/ high density lipoprotein (HDL) cholesterol ratioOrdered By: Michela Sal on 01-05-2025 Cholesterol.total/Cho lesterol in HDL [Mass ratio] 4.03 {ratio} [facility] Serum or plasma C reactive p rotein measurement (mass/volume)Ordered By: Michela Sal on 01-05-2025 CRP [Mass/Vol] mg/L 0.0-3.0 [facility] Serum or plasma cholesterol in HDL measurement (mass/volume)Ordered By: Michela Sal on 01-05-2025 Cholesterol in HDL [Mass/Vol] 52 mg/dL >40 [facility] Comment on above: National Cholesterol Education [...] L501.1400, L300.4700, L500.4100, L803.0600, L3400.4600, L501.6710, L3100.7870 ####[facility] [address] [place], [place], [address] Serum or plasma cholesterol measurement (mass/volume)Ordered By: Michela Sal on 01-05-2025 Cholesterol [Mass/Vol] 211 mg/dL High <201 [facility] Comment on above: Cholesterol level, D esirable <200 mg/dLBorderline high cholesterol 200-239 mg/dLHigh cholesterol >=240 mg/dLRecommendations of the NCEP Adult Treatment Panel for the following risk-cutoff thresholds for the [place] population. Result Comment: Chol esterol level, Desirable <200 mg/dLBorderline high cholesterol 200-239 mg/dLHigh cholesterol >=240 mg/dLRecommendations of the NCEP Adult Treatment Panel for thefollowing risk-cutoff thresholds for the [place] Americanpopulation. Performed By: #### L 3410.9998, L501.1400, L300.4700, L500.4100, L803.0600, L3400.4600, L501.6710, L3100.7870 ####[facility] [address] [place], [place], [address] Serum or plasma uric acid me asurement (mass/volume)Ordered By: Michela Sal on 01-05-2025 Urate [Mass/Vol] 5.1 mg/dL 3.5-7.2 [facility] Comment on above: The drugs N-Acetylcy steine and Metamizole may falsely depress this assay. Triglycerides measurementOrd ered By: Michela Sal on 01-05-2025 Triglyceride [Mass/Vol] 103 mg/dL <199 [facility] Comment on above: The drugs N-Acetylcy steine and Metamizole may falsely depress this assay. Normal range: <150 mg/dLBorderline High: 150-199 mg/dLHigh: 200-499 mg/dLVery High: >500 mg/dL Result Comment: The drugs N-Acetylcysteine and Metamizole may falselydepress this assay.Normal range: <150 mg/dLBorderline High: 150-199 mg/dLHigh: 200-499 mg/dLVery High: >500 mg/dL Performed By: #### L 3410.9998, L501.1400, L300.4700, L500.4100, L803.0600, L3400.4600, L501.6710, L3100.7870 ####[facility] [address] [place], [place], [address] Uric Acidon 01-05-2025 URIC 5.1 mg/dL Normal 3.5-7.2 [facility] Comment on above: Result Comment: The drugs N-Acetylcysteine and Metamizole may falselydepress this assay. Performed By: #### L 3410.9998, L501.1400, L300.4700, L500.4100, L803.0600, L3400.4600, L501.6710, L3100.7870 ####[facility] [address] [place], [address] Bilirubin directOrdered By: Cayla Quiñonez on 12-31-2024 Bilirubin.direct [Mass/Vol] 0.42 mg/dL High 0.00-0.30 [facility] Bilirubin, totalOrdered By: Cayla Quiñonez on 12-31-2024 Bilirubin [Mass/Vol] 0.64 mg/dL 0.00-1.30 [facility] Gastroenterology Visit Repor ton 12-31-2024 Gastroenterology Visit Report Normal [facility] Laboratory - Chemistry and C hemistry - challengeOrdered By: Cayla Quiñonez on 12-31-2024 AST [Catalytic activity/Vol] 38 U/L <38 [facility] Liver Profileon 12-31-2024 Albumin [Mass/Vol] 4.0 g/dL Normal 3.5-5.0 [facility] Comment on above: Performed By: #### L 500.3400 ####[facility] [address] [place], [place], [address] ALK PHOS 112 U/L Normal 40-129 [facility] Comment on above: Performed By: #### L 500.3400 ####[facility] [address] [place], [address] ALT [Catalytic activity/Vol] 64 U/L High <=46 [facility] Comment on above: Performed By: #### L 500.3400 ####[facility] [address] [place], [address] AST [Catalytic activity/Vol] 38 U/L Normal <=37 [facility] Comment on above: Performed By: #### L 500.3400 ####[facility] [address] [place], [address] Bilirubin [Mass/Vol] 0.64 mg/dL Normal 0.00-1.30 [facility] Comment on above: Performed By: #### L 500.3400 ####[facility] [address] [place], [address] Bilirubin.direct [Mass/Vol] 0.42 mg/dL High 0.00-0.30 [facility] Comment on above: Performed By: #### L 500.3400 ####[facility] [address] [place], [address] Globulin (S) [Mass/Vol] 3.1 g/dL Normal 2.2-4.2 [facility] Comment on above: Performed By: #### L 500.3400 ####[facility] [address] [place], [address] T PROT 7.0 g/dL Normal 5.9-8.4 [facility] Comment on above: Performed By: #### L 500.3400 ####[facility] [address] [place], [address] Serum globulin measurementOr dered By: Cayla Quiñonez on 12-31-2024 Globulin (S) [Mass/Vol] 3.1 g/dL 2.2-4.2 [facility] Serum or plasma alanine mays otransferase (ALT) measurementOrdered By: Cayla Quiñonez on 12-31-2024 ALT [Catalytic activity/Vol] 64 U/L High <47 [facility] Serum or plasma albumin marquise urement (mass/volume)Ordered By: Cayla Quiñonez on 12-31-2024 Albumin [Mass/Vol] 4.0 g/dL 3.5-5.0 [facility] Serum or plasma alkaline daniel sphatase measurementOrdered By: Cayla Quiñonez on 12-31-2024 ALP [Catalytic activity/Vol] 112 U/L 40-129 [facility] Surgery Visit Reporton 12-[address] [facility] Total proteinOrdered By: Vanessa Quiñonez on 12-31-2024 Protein [Mass/Vol] 7.0 g/dL 5.9-8.4 [facility] Culture, Blood (WB)on 2024 CUB Normal [facility] Comment on above: Performed By: #### M 200.1000 ####[facility] [address] [place], [address] Culture, Blood (WB)on 2024 CUB Normal [facility] Comment on above: Performed By: #### M 200.1000 ####[facility] [address] [place], [address] Liver Profileon 12-18-2024 ALB Normal 3.5-5.0 [facility] Comment on above: Result Comment: Canc elled via OM: Order cancelled - Patient discharged Performed By: #### L 500.3400 ####[facility] [address] [place], [address] ALK PHOS Normal 40-129 [facility] Comment on above: Result Comment: Canc elled via OM: Order cancelled - Patient discharged Performed By: #### L 500.3400 ####[facility] [address] [place], [address] ALT Normal <=46 [facility] Comment on above: Result Comment: Canc elled via OM: Order cancelled - Patient discharged Performed By: #### L 500.3400 ####[facility] [address] [place], [address] AST Normal <=37 [facility] Comment on above: Result Comment: Canc elled via OM: Order cancelled - Patient discharged Performed By: #### L 500.3400 ####[facility] [address] [place], [address] D BILI Normal 0.00-0.30 [facility] Comment on above: Result Comment: Canc elled via OM: Order cancelled - Patient discharged Performed By: #### L 500.3400 ####[facility] [address] [place], [address] T BILI Normal 0.00-1.30 [facility] Comment on above: Result Comment: Canc elled via OM: Order cancelled - Patient discharged Performed By: #### L 500.3400 ####[facility] [address] [place], [address] T PROT Normal 5.9-8.4 [facility] Comment on above: Result Comment: Canc elled via OM: Order cancelled - Patient discharged Performed By: #### L 500.3400 ####[facility] [address] [place], [address] CBC W/Diff, Automatedon 03-2 0-2024 Absolute Neut Normal 2.0-7.7 [facility] Comment on above: Result Comment: Canc elled via OM: Order cancelled - Patient discharged Performed By: #### L 500.3400, L100.0100 ####[facility] [address] [place], [address] HCT Normal 40-54 [facility] Comment on above: Result Comment: Canc elled via OM: Order cancelled - Patient discharged Performed By: #### L 500.3400, L100.0100 ####[facility] [address] [place], [address] HGB Normal 13.0-16.5 [facility] Comment on above: Result Comment: Canc elled via OM: Order cancelled - Patient discharged Performed By: #### L 500.3400, L100.0100 ####[facility] [address] [place], [address] MCH Normal 27.0-32.0 [facility] Comment on above: Result Comment: Canc elled via OM: Order cancelled - Patient discharged Performed By: #### L 500.3400, L100.0100 ####[facility] [address] [place], [address] MCHC Normal 32-36 [facility] Comment on above: Result Comment: Canc elled via OM: Order cancelled - Patient discharged Performed By: #### L 500.3400, L100.0100 ####[facility] [address] [place], [address] MCV Normal 80-94 [facility] Comment on above: Result Comment: Canc elled via OM: Order cancelled - Patient discharged Performed By: #### L 500.3400, L100.0100 ####[facility] [address] [place], [address] NEUT% Normal 47-70 [facility] Comment on above: Result Comment: Canc elled via OM: Order cancelled - Patient discharged Performed By: #### L 500.3400, L100.0100 ####[facility] [address] [place], [address] PLT Normal 150-450 [facility] Comment on above: Result Comment: Canc elled via OM: Order cancelled - Patient discharged Performed By: #### L 500.3400, L100.0100 ####[facility] [address] [place], [address] RBC Normal 4.6-6.2 [facility] Comment on above: Result Comment: Canc elled via OM: Order cancelled - Patient discharged Performed By: #### L 500.3400, L100.0100 ####[facility] [address] [place], [address] RDW CV Normal 11.6-14.6 [facility] Comment on above: Result Comment: Canc elled via OM: Order cancelled - Patient discharged Performed By: #### L 500.3400, L100.0100 ####[facility] [address] [place], [address] RDW SD Normal 35.1-43.9 [facility] Comment on above: Result Comment: Canc elled via OM: Order cancelled - Patient discharged Performed By: #### L 500.3400, L100.0100 ####[facility] [address] [place], [address] WBC Normal 4.4-11.0 [facility] Comment on above: Result Comment: Canc elled via OM: Order cancelled - Patient discharged Performed By: #### L 500.3400, L100.0100 ####[facility] [address] [place], [address] L501.5101on 12-17-2024 GGTP 174 IU/L Abnormal 0-65 [facility] Comment on above: Result Comment: Perf ormed at: - [facility] [address] [id number] Director: Raj Dick PhD, Phone: [phone] Performed By: #### L 501.5106 ####[facility] [address] [place], [address] Liver Profileon 12-17-2024 ALB Normal 3.5-5.0 [facility] Comment on above: Result Comment: Canc elled via OM: Order cancelled - Patient discharged Performed By: #### L 500.3400, L100.0100 ####[facility] [address] [place], [address] ALK PHOS Normal 40-129 [facility] Comment on above: Result Comment: Canc elled via OM: Order cancelled - Patient discharged Performed By: #### L 500.3400, L100.0100 ####[facility] [address] [place], [address] ALT Normal <=46 [facility] Comment on above: Result Comment: Canc elled via OM: Order cancelled - Patient discharged Performed By: #### L 500.3400, L100.0100 ####[facility] [address] [place], [address] AST Normal <=37 [facility] Comment on above: Result Comment: Canc elled via OM: Order cancelled - Patient discharged Performed By: #### L 500.3400, L100.0100 ####[facility] [address] [place], [address] D BILI Normal 0.00-0.30 [facility] Comment on above: Result Comment: Canc elled via OM: Order cancelled - Patient discharged Performed By: #### L 500.3400, L100.0100 ####[facility] [address] [place], [address] T BILI Normal 0.00-1.30 [facility] Comment on above: Result Comment: Canc elled via OM: Order cancelled - Patient discharged Performed By: #### L 500.3400, L100.0100 ####[facility] [address] [place], [address] T PROT Normal 5.9-8.4 [facility] Comment on above: Result Comment: Canc elled via OM: Order cancelled - Patient discharged Performed By: #### L 500.3400, L100.0100 ####[facility] [address] [place], [address] Absolute lymphocyte countOrd ered By: Francesco Lui on 12-16-2024 Lymphocytes Auto (Unsp spec) [#/Vol] 1.28 10*3/uL 0.83-4.51 [facility] Absolute neutrophil countOrd ered By: Francesco Lui on 12-16-2024 Neutrophils (Bld) [#/Vol] 3.7 10*3/uL 2.0-7.7 [facility] Anion gap in Serum or Plasma Ordered By: Francesco Lui on 12-16-2024 Anion gap [Moles/Vol] 10 mmol/L 5-15 [facility] Automated lymphocyte count a s percentage of total leukocytesOrdered By: Francesco Lui on 12-16-2024 Lymphocytes/100 WBC Auto (Unsp spec) 20.8 % [facility] BUN/creatinine ratioOrdered By: Francesco Lui on 12-16-2024 Urea nitrogen/Creatinine [Mass ratio] 12.7 mg/mg - [facility] Basic Metabolic Profile (BMP )on 12-16-2024 BUN/CRE 12.7 RATIO Normal - [facility] Comment on above: Performed By: #### L 100.0100, L500.3400, L500.2500 ####[facility] [address] [place], [address] Calcium [Mass/Vol] 9.0 mg/dL Normal 7.6-11.0 [facility] Comment on above: Performed By: #### L 100.0100, L500.3400, L500.2500 ####[facility] [address] [place], [address] Chloride [Moles/Vol] 104 mmol/L Normal 98-108 [facility] Comment on above: Performed By: #### L 100.0100, L500.3400, L500.2500 ####[facility] [address] [place], [address] CO2 [Moles/Vol] 24.8 mmol/L Normal 21.0-32.0 [facility] Comment on above: Performed By: #### L 100.0100, L500.3400, L500.2500 ####[facility] [address] [place], [address] Creatinine [Mass/Vol] 1.06 mg/dL Normal 0.70-1.20 [facility] Comment on above: Performed By: #### L 100.0100, L500.3400, L500.2500 ####[facility] [address] [place], [address] ECRCL 105.07 ml/min Normal 50-250 [facility] Comment on above: Performed By: #### L 100.0100, L500.3400, L500.2500 ####[facility] [address] [place], [address] GAP 10 Normal 5-15 [facility] Comment on above: Performed By: #### L 100.0100, L500.3400, L500.2500 ####[facility] [address] [place], [address] GFR/1.73 sq M.predicted among non-blacks MDRD (S/P/Bld) [Vol rate/Area] 90 mL/min/{1.73_m2} Normal >60 [facility] Comment on above: Result Comment: mL/m in/1.73m2 CKD-EPI Creatinine Equation (2020) Performed By: #### L 100.0100, L500.3400, L500.2500 ####[facility] [address] [place], [address] Glucose [Mass/Vol] 85 mg/dL Normal 70-99 [facility] Comment on above: Performed By: #### L 100.0100, L500.3400, L500.2500 ####[facility] [address] [place], [address] Potassium [Moles/Vol] 4.0 mmol/L Normal 3.3-5.1 [facility] Comment on above: Performed By: #### L 100.0100, L500.3400, L500.2500 ####[facility] [address] [place], [address] Sodium [Moles/Vol] 139 mmol/L Normal 133-145 [facility] Comment on above: Performed By: #### L 100.0100, L500.3400, L500.2500 ####[facility] [address] [place], [address] Urea nitrogen [Mass/Vol] 14 mg/dL Normal - [facility] Comment on above: Performed By: #### L 100.0100, L500.3400, L500.2500 ####[facility] [address] [place], [address] Basophil percentageOrdered B y: Francesco Lui on 12-16-2024 Basophils/100 WBC (Bld) 0.8 % 0-1 [facility] Bilirubin directOrdered By: Francesco Lui on 12-16-2024 Bilirubin.direct [Mass/Vol] 1.88 mg/dL High 0.00-0.30 [facility] Bilirubin, totalOrdered By: Francesco Lui on 12-16-2024 Bilirubin [Mass/Vol] 2.75 mg/dL High 0.00-1.30 [facility] CBC W/Diff, Automatedon 11-28 Absolute Lymph 1.28 X10 3/uL Normal 0.83-4.51 [facility] Comment on above: Performed By: #### L 100.0100, L500.3400, L500.2500 ####[facility] [address] [place], [address] Absolute Neut 3.7 X10 3/uL Normal 2.0-7.7 [facility] Comment on above: Performed By: #### L 100.0100, L500.3400, L500.2500 ####[facility] [address] [place], [address] Basophils/100 WBC (Bld) 0.8 % Normal 0-1 [facility] Comment on above: Performed By: #### L 100.0100, L500.3400, L500.2500 ####[facility] [address] [place], [address] Eosinophils/100 WBC (Bld) 2.3 % Normal 0-5 [facility] Comment on above: Performed By: #### L 100.0100, L500.3400, L500.2500 ####[facility] [address] [place], [address] Erythrocyte distribution width (RBC) [Ratio] 13.0 % Normal 11.6-14.6 [facility] Comment on above: Performed By: #### L 100.0100, L500.3400, L500.2500 ####[facility] [address] [place], [address] Hematocrit (Bld) [Volume fraction] 39.8 % Low 40-54 [facility] Comment on above: Performed By: #### L 100.0100, L500.3400, L500.2500 ####[facility] [address] [place], [address] Hemoglobin (Bld) [Mass/Vol] 13.5 g/dL Normal 13.0-16.5 [facility] Comment on above: Performed By: #### L 100.0100, L500.3400, L500.2500 ####[facility] [address] [place], [address] IG% 1.600 High 0.0-0.9 [facility] Comment on above: Result Comment: IG% - Immature Granulocytes (promyelocytes, myelocytes andmetamyelocytes) > 1% indicates that a LEFT SHIFT is Present. Performed By: #### L 100.0100, L500.3400, L500.2500 ####[facility] [address] [place], [address] Lymphocytes/100 WBC (Bld) 20.8 % Normal 19-41 [facility] Comment on above: Performed By: #### L 100.0100, L500.3400, L500.2500 ####[facility] [address] [place], [address] MCH (RBC) [Entitic mass] 29.2 pg Normal 27.0-32.0 [facility] Comment on above: Performed By: #### L 100.0100, L500.3400, L500.2500 ####[facility] [address] [place], [address] MCHC (RBC) [Mass/Vol] 33.9 g/dL Normal 32-36 [facility] Comment on above: Performed By: #### L 100.0100, L500.3400, L500.2500 ####[facility] [address] [place], [address] MCV (RBC) [Entitic vol] 86.0 fL Normal 80-94 [facility] Comment on above: Performed By: #### L 100.0100, L500.3400, L500.2500 ####[facility] [address] [place], [address] Monocytes/100 WBC (Bld) 13.5 % High 0-10 [facility] Comment on above: Performed By: #### L 100.0100, L500.3400, L500.2500 ####[facility] [address] [place], [address] Neutrophils/100 WBC (Bld) 61.0 % Normal 47-70 [facility] Comment on above: Performed By: #### L 100.0100, L500.3400, L500.2500 ####[facility] [address] [place], [address] Nucleated RBC (Bld) [#/Vol] 0 10*3/uL Normal 0-5 [facility] Comment on above: Performed By: #### L 100.0100, L500.3400, L500.2500 ####[facility] [address] [place], [address] Platelet mean volume (Bld) [Entitic vol] 9.8 fL Normal 6.2-12.0 [facility] Comment on above: Performed By: #### L 100.0100, L500.3400, L500.2500 ####[facility] [address] [place], [address] Platelets (Bld) [#/Vol] 153 10*3/uL Normal 150-450 [facility] Comment on above: Performed By: #### L 100.0100, L500.3400, L500.2500 ####[facility] [address] [place], [address] RBC (Bld) [#/Vol] 4.63 10*6/uL Normal 4.6-6.2 [facility] Comment on above: Performed By: #### L 100.0100, L500.3400, L500.2500 ####[facility] [address] [place], [address] RDW SD 40.5 fl Normal 35.1-43.9 [facility] Comment on above: Performed By: #### L 100.0100, L500.3400, L500.2500 ####[facility] [address] [place], [address] WBC (Bld) [#/Vol] 6.1 10*3/uL Normal 4.4-11.0 [facility] Comment on above: Performed By: #### L 100.0100, L500.3400, L500.2500 ####[facility] [address] [place], [address] Carbon dioxide, total [Moles /volume] in Central venous bloodOrdered By: Francesco Lui on 12-16-2024 CO2 [Moles/Vol] 24.8 mmol/L 21.0-32.0 [facility] Chloride assayOrdered By: Gracie Lui on 12-16-2024 Chloride [Moles/Vol] 104 mmol/L 98-108 [facility] Consultation - Infectious Dx on 12-16-2024 Consultation - Infectious Dx Normal [facility] Consultation - Surgicalon Consultation - Surgical Normal [facility] Discharge Instructionon 11-28 Discharge Instruction Normal [facility] Eosinophil percentageOrdered By: Francesco Lui on 12-16-2024 Eosinophils/100 WBC (Bld) 2.3 % 0-5 [facility] Erythrocyte distribution wid th ratioOrdered By: Francesco Lui on 12-16-2024 Erythrocyte distribution width (RBC) [Ratio] 13.0 % 11.6-14.6 [facility] Erythrocyte distribution wid th standard deviationOrdered By: Francesco Lui on 12-16-2024 Erythrocyte distribution width (RBC) [Entitic vol] 40.5 fL 35.1-43.9 [facility] Erythrocyte distribution width (RBC) [Ratio] 40.5 fl 35.1-43.9 [facility] Estimation of creatinine alyson aranceOrdered By: Francesco Lui on 12-16-2024 Estimated Creatinine Clearance Calc 105.07 ml/min 50-250 [facility] GFR/1.73 sq M.predicted latrell g non-blacks MDRD (S/P/Bld) [Vol rate/Area]Ordered By: Francesco Lui on 12-16-2024 Estimated GFR (MDRD) Non-Af Amer 90 >60 [facility] Comment on above: mL/min/1.73m2 CKD-EP I Creatinine Equation (2020) Gamma glutamyl transferase ( GGT) measurementOrdered By: Francesco Lui on 12-16-2024 Amylase [Catalytic activity/Vol] 174 U/L High 0-65 [facility] Comment on above: Performed at: [facility] [employer] [facility] [employer] [address] [id number] Director: Raj Dick PhD, Phone: [phone] Glomerular filtration rate ( GFR) estimation/1.73 sq m using serum, plasma, or whole bOrdered By: Francesco Lui on 12-16-2024 GFR/1.73 sq M.predicted among non-blacks MDRD (S/P/Bld) [Vol rate/Area] 90 mL/min/{1.73_m2} >60 [facility] Comment on above: mL/min/1.73m2 CKD-EP I Creatinine Equation (2020) Hematocrit Auto (Bld) [Volum e fraction]Ordered By: Francesco Lui on 12-16-2024 Hematocrit (Bld) [Volume fraction] 39.8 % Low 40-54 [facility] Hemoglobin measurementOrdere d By: Francesco Lui on 12-16-2024 Hemoglobin (Bld) [Mass/Vol] 13.5 g/dL 13.0-16.5 [facility] Immature granulocytes/100 WB C Auto (Bld)Ordered By: Francesco Lui on 12-16-2024 Immature granulocytes/100 WBC (Bld) 1.600 % High 0.0-0.9 [facility] Comment on above: IG% - Immature Granu locytes (promyelocytes, myelocytes and metamyelocytes) > 1% indicates that a LEFT SHIFT is Present. Laboratory - Chemistry and C hemistry - challengeOrdered By: Francesco Lui on 12-16-2024 AST [Catalytic activity/Vol] 29 U/L <38 [facility] Liver Profileon 12-16-2024 Albumin [Mass/Vol] 3.1 g/dL Low 3.5-5.0 [facility] Comment on above: Performed By: #### L 100.0100, L500.3400, L500.2500 ####[facility] [address] [place], [address] ALK PHOS 136 U/L High 40-129 [facility] Comment on above: Performed By: #### L 100.0100, L500.3400, L500.2500 ####[facility] [address] [place], [address] ALT [Catalytic activity/Vol] 149 U/L High <=46 [facility] Comment on above: Performed By: #### L 100.0100, L500.3400, L500.2500 ####[facility] [address] [place], [address] AST [Catalytic activity/Vol] 29 U/L Normal <=37 [facility] Comment on above: Performed By: #### L 100.0100, L500.3400, L500.2500 ####[facility] [address] [place], [address] Bilirubin [Mass/Vol] 2.75 mg/dL High 0.00-1.30 [facility] Comment on above: Performed By: #### L 100.0100, L500.3400, L500.2500 ####[facility] [address] [place], [address] Bilirubin.direct [Mass/Vol] 1.88 mg/dL High 0.00-0.30 [facility] Comment on above: Performed By: #### L 100.0100, L500.3400, L500.2500 ####[facility] [address] [place], [address] Globulin (S) [Mass/Vol] 3.1 g/dL Normal 2.2-4.2 [facility] Comment on above: Performed By: #### L 100.0100, L500.3400, L500.2500 ####[facility] [address] [place], [address] T PROT 6.2 g/dL Normal 5.9-8.4 [facility] Comment on above: Performed By: #### L 100.0100, L500.3400, L500.2500 ####[facility] [address] [place], [address] Lymphocytes Auto (Unsp spec) [#/Vol]Ordered By: Francesco Lui on 12-16-2024 Lymphocytes (Bld) [#/Vol] 1.28 10*3/uL 0.83-4.51 [facility] Lymphocytes/100 WBC Auto (Un sp spec)Ordered By: Francesco Lui on 12-16-2024 Lymphocytes/100 WBC (Bld) 20.8 % 19-41 [facility] MCV (mean corpuscular volume ) determinationOrdered By: Francesco Lui on 12-16-2024 MCV (RBC) [Entitic vol] 86.0 fL 80-94 [facility] Mean corpuscular hemoglobin (MCH) determinationOrdered By: Francesco Lui on 12-16-2024 MCH (RBC) [Entitic mass] 29.2 pg 27.0-32.0 [facility] Mean corpuscular hemoglobin concentration (MCHC) determinationOrdered By: Francesco Lui on 12-16-2024 MCHC (RBC) [Mass/Vol] 33.9 g/dL 32-36 [facility] Mean platelet volume determi nationOrdered By: Francesco Lui on 12-16-2024 Platelet mean volume (Bld) [Entitic vol] 9.8 fL 6.2-12.0 [facility] Monocyte percentageOrdered B y: Francesco Lui on 12-16-2024 Monocytes/100 WBC (Bld) 13.5 % High 0-10 [facility] Neutrophil percentageOrdered By: Francesco Lui on 12-16-2024 Neutrophils/100 WBC (Bld) 61.0 % 47-70 [facility] Nucleated red blood cell per centageOrdered By: Francesco Lui on 12-16-2024 Nucleated RBC/100 WBC (Bld) [Ratio] 0 % 0-5 [facility] Platelet countOrdered By: Gracie Lui on 12-16-2024 Platelets (Bld) [#/Vol] 153 10*3/uL 150-450 [facility] Potassium (Unsp spec) [Mass/ Vol]Ordered By: Francesco Lui on 12-16-2024 Potassium [Moles/Vol] 4.0 mmol/L 3.3-5.1 [facility] Potassium measurement (mass/ volume)Ordered By: Francesco Lui on 12-16-2024 Potassium (Unsp spec) [Mass/Vol] 4.0 mmol/L 3.3-5.1 [facility] RBC Auto (Bld) [#/Vol]Ordere d By: Francesco Lui on 12-16-2024 RBC (Bld) [#/Vol] 4.63 10*6/uL 4.6-6.2 [facility] Serum creatinine measurement (mass/volume)Ordered By: Francesco Lui on 12-16-2024 Creatinine [Mass/Vol] 1.06 mg/dL 0.70-1.20 [facility] Serum globulin measurementOr dered By: Francesco Lui on 12-16-2024 Globulin (S) [Mass/Vol] 3.1 g/dL 2.2-4.2 [facility] Serum glucose measurement (m ass/volume)Ordered By: Francesco Lui on 12-16-2024 Glucose [Mass/Vol] 85 mg/dL 70-99 [facility] Serum or plasma alanine mays otransferase (ALT) measurementOrdered By: Francesco Lui on 12-16-2024 ALT [Catalytic activity/Vol] 149 U/L High <47 [facility] Serum or plasma albumin marquise urement (mass/volume)Ordered By: Francesco Lui on 12-16-2024 Albumin [Mass/Vol] 3.1 g/dL Low 3.5-5.0 [facility] Serum or plasma alkaline daniel sphatase measurementOrdered By: Francesco Lui on 12-16-2024 ALP [Catalytic activity/Vol] 136 U/L High 40-129 [facility] Serum or plasma calcium marquise urement (mass/volume)Ordered By: Francesco Lui on 12-16-2024 Calcium [Mass/Vol] 9.0 mg/dL 7.6-11.0 [facility] Serum or plasma urea nitroge n measurement (mass/volume)Ordered By: Francesco Lui on 12-16-2024 Urea nitrogen [Mass/Vol] 14 mg/dL 4-19 [facility] Sodium levelOrdered By: Frederick Lui on 12-16-2024 Sodium [Moles/Vol] 139 mmol/L 133-145 [facility] Total proteinOrdered By: Mendoza Lui on 12-16-2024 Protein [Mass/Vol] 6.2 g/dL 5.9-8.4 [facility] White blood cell (WBC) count Ordered By: Francesco Lui on 12-16-2024 WBC (Bld) [#/Vol] 6.1 10*3/uL 4.4-11.0 [facility] 12 Lead EKGon 12-15-2024 12 Lead EKG Normal [facility] CBC-Complete Blood Cnt No Di ffon 12-15-2024 Erythrocyte distribution width (RBC) [Ratio] 12.9 % Normal 11.6-14.6 [facility] Comment on above: Performed By: #### L 100.0500 ####[facility] [address] [place], [address] Hematocrit (Bld) [Volume fraction] 42.2 % Normal 40-54 [facility] Comment on above: Performed By: #### L 100.0500 ####[facility] [address] [place], [address] Hemoglobin (Bld) [Mass/Vol] 14.5 g/dL Normal 13.0-16.5 [facility] Comment on above: Performed By: #### L 100.0500 ####[facility] [address] [place], [address] MCH (RBC) [Entitic mass] 28.8 pg Normal 27.0-32.0 [facility] Comment on above: Performed By: #### L 100.0500 ####[facility] [address] [place], [address] MCHC (RBC) [Mass/Vol] 34.4 g/dL Normal 32-36 [facility] Comment on above: Performed By: #### L 100.0500 ####[facility] [address] [place], [address] MCV (RBC) [Entitic vol] 83.9 fL Normal 80-94 [facility] Comment on above: Performed By: #### L 100.0500 ####[facility] [address] [place], [address] Platelet mean volume (Bld) [Entitic vol] 9.8 fL Normal 6.2-12.0 [facility] Comment on above: Performed By: #### L 100.0500 ####[facility] [address] [place], [address] Platelets (Bld) [#/Vol] 163 10*3/uL Normal 150-450 [facility] Comment on above: Performed By: #### L 100.0500 ####[facility] [address] [place], [address] RBC (Bld) [#/Vol] 5.03 10*6/uL Normal 4.6-6.2 [facility] Comment on above: Performed By: #### L 100.0500 ####[facility] [address] [place], [address] RDW SD 39.7 fl Normal 35.1-43.9 [facility] Comment on above: Performed By: #### L 100.0500 ####[facility] [address] [place], [address] WBC (Bld) [#/Vol] 10.2 10*3/uL Normal 4.4-11.0 [facility] Comment on above: Performed By: #### L 100.0500 ####[facility] [address] [place], [address] Comprehensive Metabolic Prof [facility] 12-15-2024 Albumin [Mass/Vol] 3.4 g/dL Low 3.5-5.0 [facility] Comment on above: Performed By: #### L 500.4050 ####[facility] [address] [place], [address] Albumin/Globulin [Mass ratio] 1.1 {ratio} Normal 0.9-2.4 [facility] Comment on above: Performed By: #### L 500.4050 ####[facility] [address] [place], [address] ALK PHOS 156 U/L High 40-129 [facility] Comment on above: Performed By: #### L 500.4050 ####[facility] [address] [place], [address] ALT [Catalytic activity/Vol] 227 U/L High <=46 [facility] Comment on above: Performed By: #### L 500.4050 ####[facility] [address] [place], [address] AST [Catalytic activity/Vol] 56 U/L High <=37 [facility] Comment on above: Performed By: #### L 500.4050 ####[facility] [address] [place], [address] Bilirubin [Mass/Vol] 5.85 mg/dL High 0.00-1.30 [facility] Comment on above: Performed By: #### L 500.4050 ####[facility] [address] [place], [address] BUN/CRE 10.4 RATIO Normal 10-20 [facility] Comment on above: Performed By: #### L 500.4050 ####[facility] [address] [place], [address] Calcium [Mass/Vol] 9.1 mg/dL Normal 7.6-11.0 [facility] Comment on above: Performed By: #### L 500.4050 ####[facility] [address] [place], [address] Chloride [Moles/Vol] 103 mmol/L Normal 98-108 [facility] Comment on above: Performed By: #### L 500.4050 ####[facility] [address] [place], [address] CO2 [Moles/Vol] 21.3 mmol/L Normal 21.0-32.0 [facility] Comment on above: Performed By: #### L 500.4050 ####[facility] [address] [place], [address] Creatinine [Mass/Vol] 0.99 mg/dL Normal 0.70-1.20 [facility] Comment on above: Result Comment: Icte stephany present, Results may be affected. Performed By: #### L 500.4050 ####[facility] [address] [place], [address] ECRCL 112.50 ml/min Normal 50-250 [facility] Comment on above: Performed By: #### L 500.4050 ####[facility] [address] [place], [address] GAP 13 Normal 5-15 [facility] Comment on above: Performed By: #### L 500.4050 ####[facility] [address] [place], [address] GFR/1.73 sq M.predicted among non-blacks MDRD (S/P/Bld) [Vol rate/Area] 98 mL/min/{1.73_m2} Normal >60 [facility] Comment on above: Result Comment: mL/m in/1.73m2 CKD-EPI Creatinine Equation (2020) Performed By: #### L 500.4050 ####[facility] [address] [place], [address] Globulin (S) [Mass/Vol] 3.1 g/dL Normal 2.2-4.2 [facility] Comment on above: Performed By: #### L 500.4050 ####[facility] [address] [place], [address] Glucose [Mass/Vol] 106 mg/dL High 70-99 [facility] Comment on above: Performed By: #### L 500.4050 ####[facility] [address] [place], [address] Potassium [Moles/Vol] 3.9 mmol/L Normal 3.3-5.1 [facility] Comment on above: Result Comment: Hemo lysis present, Results??could be affected.?? Performed By: #### L 500.4050 ####[facility] [address] [place], [place], [address] Sodium [Moles/Vol] 137 mmol/L Normal 133-145 [facility] Comment on above: Performed By: #### L 500.4050 ####[facility] [address] [facility] [id number] T PROT 6.5 g/dL Normal 5.9-8.4 [facility] Comment on above: Performed By: #### L 500.4050 ####[facility] [address] [place], [place], [address] Urea nitrogen [Mass/Vol] 10 mg/dL Normal 4-19 [facility] Comment on above: Performed By: #### L 500.4050 ####[facility] [address] [place], [address] ERCP Biliary/Pancreason - ERCP Biliary/Pancreas Normal [facility] ERCP Reporton 12-15-2024 ERCP Report Normal [facility] Electrocardiogram reportOrde red By: [place] Lubin on 12-15-2024 EKG study [facility] Cardiovascular Services [address] [place] [address] 12 Lead EKG 12/15/24 0448 MR#: [id number] Acct: [id number] Name: DIANE CONNORS Rep #:[id number] : 1985 39 From: [place] Lubin MD Attending Dr: Dr. Francesco Lui MD Status: ADM IN Ordering Dr: Gray López MD Date: Location: [facility] Sex: M C Admitted: 12/14/24 Test [...] When compared with ECG of 11-Dec-2024 12:55, SD interval has decreased Vent. rate has increased by 38 bpm QT has lengthened Confirmed by JOSE LUBIN MD ([id number]), story editor CHAVA CASEY ([id number]) on 12/15/2024 8:22:34 AM Referred By: PRIMITIVO Confirmed By: JOSE LUBIN MD 12/15/24821 Date _ [place] Lubin MD CC: PARIMUTUEL TICKET CHECKERGarrison Arias; Dr. Gray López MD; Dr. Francesco Lui MD ~ Signed [facility] Work Phone: [phone] MR/POSTOP.ANEon 12-15-2024 MR/POSTOP.ANE Normal [facility] MR/[id number] 12-15-2024 MR/POSTOPAN2 Normal [facility] Serum or plasma albumin/glob ulin mass ratioOrdered By: Cruz Arciniega on 12-15-2024 Albumin/Globulin [Mass ratio] 1.1 {ratio} 0.9-2.4 [facility] Abdomen/Pelvis W IV Cont ONL Yon 12-14-2024 Abdomen/Pelvis W IV Cont ONLY Normal [facility] Absolute neutrophil countOrd ered By: Petar Barrera on 12-14-2024 Neutrophils (Bld) [#/Vol] 12.7 10*3/uL High 2.0-7.7 [facility] Anion gap in Serum or Plasma Ordered By: Petar Barrera on 12-14-2024 Anion gap [Moles/Vol] 10 mmol/L - [facility] BUN/creatinine ratioOrdered By: Petar Barrera on 12-14-2024 Urea nitrogen/Creatinine [Mass ratio] 11.9 mg/mg - [facility] Basic Metabolic Profile (BMP )on 12-14-2024 BUN/CRE 11.9 RATIO Normal 07-19 [facility] Comment on above: Performed By: #### L 503.6005, L501.2450, L500.2500, L500.3400 ####[facility] [address] [place], [address] ECRCL 110.26 ml/min Normal 50-250 [facility] Comment on above: Performed By: #### L 503.6005, L501.2450, L500.2500, L500.3400 ####[facility] [address] [place], [address] GAP 10 Normal 5-15 [facility] Comment on above: Performed By: #### L 503.6005, L501.2450, L500.2500, L500.3400 ####[facility] [address] [place], [address] GFR/1.73 sq M.predicted among non-blacks MDRD (S/P/Bld) [Vol rate/Area] 96 mL/min/{1.73_m2} Normal >60 [facility] Comment on above: Result Comment: mL/m in/1.73m2 CKD-EPI Creatinine Equation (2020) Performed By: #### L 503.6005, L501.2450, L500.2500, L500.3400 ####[facility] [address] [place], [address] Basophil percentageOrdered B y: Petar Barrera on 12-14-2024 Basophils/100 WBC (Bld) 0.6 % 0-1 [facility] Bilirubin Test strip Ql (U)O rdered By: Petar Barrera on 12-14-2024 Bilirubin Ql (U) 3 mg/dL High Negative [facility] Comment on above: COLOR OF URINE MAY A FFECT DIPSTICK RESULTS. Bilirubin directOrdered By: Petar Barrera on 12-14-2024 Bilirubin.direct [Mass/Vol] 3.43 mg/dL High 0.00-0.30 [facility] Comment on above: Performed By: #### L 503.6005, L501.2450, L500.2500, L500.3400 ####[facility] [address] [place], [address] Bilirubin, totalOrdered By: Petar Barrera on 12-14-2024 Bilirubin [Mass/Vol] 4.43 mg/dL High 0.00-1.30 [facility] Comment on above: Performed By: #### L 503.6005, L501.2450, L500.2500, L500.3400 ####[facility] [address] 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 CBC W/Diff, Automatedon 11-28 SMEAR COMMENT COMMENT Normal [facility] Comment on above: Result Comment: LYMP HOPENIA. Performed By: #### L 100.0100 ####[facility] [address] [place], [address] Carbon dioxide, total [Moles /volume] in Central venous bloodOrdered By: Petar Barrera on 12-14-2024 CO2 [Moles/Vol] 25.7 mmol/L Normal 21.0-32.0 [facility] Comment on above: Performed By: #### L 503.6005, L501.2450, L500.2500, L500.3400 ####[facility] [address] [place], [address] Chest PA and Lateralon 12-14 Chest PA and Lateral Normal [facility] Chloride assayOrdered By: Ann Barrera on 12-14-2024 Chloride [Moles/Vol] 103 mmol/L Normal 98-108 [facility] Comment on above: Performed By: #### L 503.6000, L501.0380, L500.2500, L500.3400 ####[facility] [address] [place], [address] Emergency Department Summary on 12-14-2024 Emergency Department Summary Normal [facility] Eosinophil percentageOrdered By: Petar Barrera on 12-14-2024 Eosinophils/100 WBC (Bld) 0.1 % 0-5 [facility] Epithelial cells.squamous LM Ql (Urine sed)Ordered By: Petar Barrera on 12-14-2024 Epithelial cells.squamous LM.HPF (Urine sed) [#/Area] 0 /[HPF] 0-5 [facility] Erythrocyte distribution wid th ratioOrdered By: Petar Barrera on 12-14-2024 Erythrocyte distribution width (RBC) [Ratio] 12.8 % 11.6-14.6 [facility] Erythrocyte distribution wid th standard deviationOrdered By: Petar Barrera on 12-14-2024 Erythrocyte distribution width (RBC) [Entitic vol] 40.8 fL 35.1-43.9 [facility] Estimation of creatinine alyson aranceOrdered By: Petar Barrera on 12-14-2024 Estimated Creatinine Clearance Calc 110.26 ml/min 50-250 [facility] GFR/1.73 sq M.predicted latrell g non-blacks MDRD (S/P/Bld) [Vol rate/Area]Ordered By: Petar Barrera on 12-14-2024 Estimated GFR (MDRD) Non-Af Amer 96 >60 [facility] Comment on above: mL/min/1.73m2 CKD-EP I Creatinine Equation (2020) Glucose Ql (U)Ordered By: yovana Barrera on 12-14-2024 Urine Glucose (UA) Normal mg/dl Normal [facility] H AND P Exam - Hospitaliston 12-14-2024 H&P Exam - Hospitalist Normal [facility] Hematocrit Auto (Bld) [Volum e fraction]Ordered By: Petar Barrera on 12-14-2024 Hematocrit (Bld) [Volume fraction] 46.1 % 40-54 [facility] Hemoglobin measurementOrdere d By: Petar Barrera on 12-14-2024 Hemoglobin (Bld) [Mass/Vol] 15.5 g/dL 13.0-16.5 [facility] Immature granulocytes/100 WB C Auto (Bld)Ordered By: Petar Barrera on 12-14-2024 Immature granulocytes/100 WBC (Bld) 0.900 % 0.0-0.9 [facility] Comment on above: IG% - Immature Granu locytes (promyelocytes, myelocytes and metamyelocytes) > 1% indicates that a LEFT SHIFT is Present. Influenza virus A and B and SARS-CoV-2 (COVID-19) and Respiratory syncytial virus RNAOrdered By: Petar Barrera on 12-14-2024 SARS-CoV-2 (COVID-19) RNA ROSSANA+probe Ql (Unsp spec) [facility] Ketones Test strip Ql (U)Ord ered By: Petar Barrera on 12-14-2024 Ketones Ql (U) Negative Negative [facility] Lactic acid measurementOrder ed By: Petar Barrera on 12-14-2024 Lactate [Moles/Vol] 1.1 mmol/L Normal 0.0-2.0 [facility] Comment on above: Order Comment: Y Performed By: #### L 503.6005, L501.2450, L500.2500, L500.3400 ####[facility] [address] [place], [address] Lipase measurementOrdered By : Petar Barrera on 12-14-2024 Lipase [Catalytic activity/Vol] 26 U/L Normal 13-75 [facility] Comment on above: Please note:LIPASE r [...] By: #### L 503.6005, L501.2450, L500.2500, L500.3400 ####[facility] [address] [place], [address] Liver Profileon 12-14-2024 ALK PHOS 149 U/L High 40-129 [facility] Comment on above: Performed By: #### L 503.6005, L501.2450, L500.2500, L500.3400 ####[facility] [address] [place], [address] T PROT 6.6 g/dL Normal 5.9-8.4 [facility] Comment on above: Performed By: #### L 503.6005, L501.2450, L500.2500, L500.3400 ####[facility] [address] [place], [address] Liver ProfileOrdered By: Sydney Barrera on 12-14-2024 AST [Catalytic activity/Vol] 124 U/L High <=37 [facility] Comment on above: Performed By: #### L 503.6005, L501.2450, L500.2500, L500.3400 ####[facility] [address] [place], [address] Lymphocytes Auto (Unsp spec) [#/Vol]Ordered By: Petar Barrera on 12-14-2024 Lymphocytes (Bld) [#/Vol] 0.45 10*3/uL Low 0.83-4.51 [facility] Lymphocytes/100 WBC Auto (Un sp spec)Ordered By: Petar Barrera on 12-14-2024 Lymphocytes/100 WBC (Bld) 3.2 % Low 19-41 [facility] M100.678on 12-14-2024 M100.678 Pending SARS-CoV-2 (COVID 19) Negative INFLUENZA A Negative INFLUENZA B Negative RSV PCR Negative Normal [facility] Comment on above: Performed By: #### M 100.678 ####[facility] [address] [place], [address] MCV (mean corpuscular volume ) determinationOrdered By: Petar Barrera on 12-14-2024 MCV (RBC) [Entitic vol] 87.1 fL 80-94 [facility] Manual differential comment Emanuel (Bld) [Interp]Ordered By: Petar Barrera on 12-14-[address] [facility] Comment on above: LYMPHOPENIA. Mean corpuscular hemoglobin (MCH) determinationOrdered By: Petar Barrera on 12-14-2024 MCH (RBC) [Entitic mass] 29.3 pg 27.0-32.0 [facility] Mean corpuscular hemoglobin concentration (MCHC) determinationOrdered By: Petar Barrera on 12-14-2024 MCHC (RBC) [Mass/Vol] 33.6 g/dL 32-36 [facility] Mean platelet volume determi nationOrdered By: Petar Barrera on 12-14-2024 Platelet mean volume (Bld) [Entitic vol] 9.4 fL 6.2-12.0 [facility] Microscopic analysis of urin e for red blood cells (RBC)Ordered By: Petar Barrera on 12-14-2024 Microscopic analysis of urine for red blood cells (RBC) 0-5 SEEN /hpf 0-5 [facility] Urine RBC 0-5 SEEN /hpf 0-5 [facility] Monocyte percentageOrdered B y: Petar Barrera on 12-14-2024 Monocytes/100 WBC (Bld) 4.7 % 0-10 [facility] Mucus LM Ql (Urine sed)Order ed By: Petar Barrera on 12-14-2024 Mucus Ql (Urine sed) 1+ /hpf [facility] Neutrophil percentageOrdered By: Petar Barrera on 12-14-2024 Neutrophils/100 WBC (Bld) 90.5 % High 47-70 [facility] Nitrite Test strip Ql (U)Ord ered By: Petar Barrera on 12-14-2024 Nitrite Ql (U) Negative Negative [facility] Nucleated red blood cell per centageOrdered By: Petar Barrera on 12-14-2024 Nucleated RBC/100 WBC (Bld) [Ratio] 0 % 0-5 [facility] Platelet countOrdered By: Ann Barrera on 12-14-2024 Platelets (Bld) [#/Vol] 156 10*3/uL 150-450 [facility] Potassium measurement (mass/ volume)Ordered By: Petar Barrera on 12-14-2024 Potassium [Moles/Vol] 3.7 mmol/L Normal 3.3-5.1 [facility] Comment on above: Performed By: #### L 503.6005, L501.2450, L500.2500, L500.3400 ####[facility] [address] [place], [address] Protein Test strip Ql (U)Ord ered By: Petar Barrera on 12-14-2024 Protein Ql (U) 30 mg/dl High Negative [facility] RBC Auto (Bld) [#/Vol]Ordere d By: Petar Barrera on 12-14-2024 RBC (Bld) [#/Vol] 5.29 10*6/uL 4.6-6.2 [facility] Serum creatinine measurement (mass/volume)Ordered By: Petar Barrera on 12-14-2024 Creatinine [Mass/Vol] 1.01 mg/dL Normal 0.70-1.20 [facility] Comment on above: Performed By: #### L 503.6005, L501.2450, L500.2500, L500.3400 ####[facility] [address] [place], [address] Serum globulin measurementOr dered By: Petar Barrera on 12-14-2024 Globulin (S) [Mass/Vol] 2.9 g/dL Normal 2.2-4.2 [facility] Comment on above: Performed By: #### L 503.6005, L501.2450, L500.2500, L500.3400 ####[facility] [address] [place], [address] Serum glucose measurement (m ass/volume)Ordered By: Petar Barrera on 12-14-2024 Glucose [Mass/Vol] 123 mg/dL High 70-99 [facility] Comment on above: Performed By: #### L 503.6005, L501.2450, L500.2500, L500.3400 ####[facility] [address] [place], [address] Serum or plasma alanine mays otransferase (ALT) measurementOrdered By: Petar Barrera on 12-14-2024 ALT [Catalytic activity/Vol] 354 U/L High <=46 [facility] Comment on above: Performed By: #### L 503.6005, L501.2450, L500.2500, L500.3400 ####[facility] [address] [place], [address] Serum or plasma albumin marquise urement (mass/volume)Ordered By: Petar Barrera on 12-14-2024 Albumin [Mass/Vol] 3.7 g/dL Normal 3.5-5.0 [facility] Comment on above: Performed By: #### L 503.6005, L501.2450, L500.2500, L500.3400 ####[facility] [address] [place], [address] Serum or plasma alkaline daniel sphatase measurementOrdered By: Petar Barrera on 12-14-2024 ALP [Catalytic activity/Vol] 149 U/L High 40-129 [facility] Serum or plasma calcium marquise urement (mass/volume)Ordered By: Petar Barrera on 12-14-2024 Calcium [Mass/Vol] 9.5 mg/dL Normal 7.6-11.0 [facility] Comment on above: Performed By: #### L 503.6005, L501.2450, L500.2500, L500.3400 ####[facility] [address] [place], [address] Serum or plasma urea nitroge n measurement (mass/volume)Ordered By: Petar Barrera on 12-14-2024 Urea nitrogen [Mass/Vol] 12 mg/dL Normal 4-19 [facility] Comment on above: Performed By: #### L 503.6005, L501.2450, L500.2500, L500.3400 ####[facility] [address] [place], [address] Sodium levelOrdered By: Sara ray Holly on 12-14-2024 Sodium [Moles/Vol] 138 mmol/L Normal 133-145 [facility] Comment on above: Performed By: #### L 503.6005, L501.2450, L500.2500, L500.3400 ####[facility] [address] [place], [address] Squamous epithelial cells de tection in urine sediment by light microscopyOrdered By: Petar Holly on 12-14-2024 Epithelial cells.squamous LM Ql (Urine sed) 0 SEEN /hpf 0-5 [facility] Total proteinOrdered By: Sydney Barrera on 12-14-2024 Protein [Mass/Vol] 6.6 g/dL 5.9-8.4 [facility] Urinalysis, Completeon 12-14 Mucus Ql (Urine sed) 1+ /hpf Normal [facility] Comment on above: Order Comment: CLEAN CATCH Performed By: #### L 400.0001 ####[facility] [address] [place], [address] BACTERIA 2+ /hpf Normal None Seen [facility] Comment on above: Order Comment: CLEAN CATCH Performed By: #### L 400.0001 ####[facility] [address] [place], [address] RBC 0-5 SEEN Normal 0-5 [facility] Comment on above: Order Comment: CLEAN CATCH Performed By: #### L 400.0001 ####[facility] [address] [place], [address] WBC 0-5 SEEN Normal 0-5 [facility] Comment on above: Order Comment: CLEAN CATCH Performed By: #### L 400.0001 ####[facility] [address] [place], [address] EPI,SQUAMOUS 0 SEEN Normal 0-5 [facility] Comment on above: Order Comment: CLEAN CATCH Performed By: #### L 400.0001 ####[facility] [address] [place], [place], [address] Urine blood detectionOrdered By: Petar Barrera on 12-14-2024 Urine Occult Blood 10 /ul High Negative [facility] Urine clarityOrdered By: Sydney Barrera on 12-14-2024 Clarity (U) Clear Clear [facility] Urine color determinationOrd ered By: Petar Barrera on 12-14-2024 Color (U) Yellow Yellow [facility] Urine glucose detectionOrder ed By: Petar Barrera on 12-14-2024 Glucose Ql (U) Normal mg/dl Normal [facility] Urine leukocyte esterase det ection by dipstickOrdered By: Petar Barrera on 12-14-2024 Leukocyte esterase Test strip Ql (U) 25 /ul High Negative [facility] Urine pHOrdered By: Petar fuchs on 12-14-2024 pH (U) 7.0 [pH] 5.0 - 8.0 [facility] Urine sediment bacteria coun t by microscopy (number/high power field)Ordered By: Petar Barrera on 12-14-2024 Bacteria LM.HPF (Urine sed) [#/Area] 2 /[HPF] None Seen [facility] Urine specific gravity measu rementOrdered By: Petar Barrera on 12-14-2024 Specific gravity (U) [Rel density] 1.005 1.002-1.030 [facility] Urine urobilinogen measureme ntOrdered By: Petar Barrera on 12-14-2024 Urobilinogen Ql (U) 1 mg/dl High Normal [facility] Urobilinogen Ql (U)Ordered B y: Petar Barrera on 12-14-2024 Urobilinogen (U) [Mass/Vol] 1 mg/dL High Normal [facility] White blood cell (WBC) count Ordered By: Petar Barrera on 12-14-2024 WBC (Bld) [#/Vol] 14.0 10*3/uL High 4.4-11.0 [facility] White blood cell countOrdere d By: Petar Barrera on 12-14-2024 Urine WBC 0-5 SEEN /hpf 0-5 [facility] White blood cell count 0-5 SEEN /hpf 0-5 [facility] 12 Lead EKGon 12-11-2024 12 Lead EKG Normal [facility] ERCP Biliary/Pancreason 11-28 ERCP Biliary/Pancreas Normal [facility] ERCP Reporton 12-11-2024 ERCP Report Normal [facility] MR/POSTOP.ANEon 12-11-2024 MR/POSTOP.ANE Normal [facility] MR/NYNMHHFS5uz 12-11-2024 MR/POSTOPAN2 Normal [facility] Special Stain Group IIon Special Stain Group II Normal [facility] Comment on above: Performed By: #### P SSII ####[facility] [address] [place], [place], [address] Carbohydrate AG 19-9on 09-15 CA 19-9 63 U/mL High 0-35 [facility] Comment on above: Order Comment: Test( s) 112398-Ssxcex, Serum or Plasmawas developed and its performance characteristicsdetermined by [facility] [employer]. It has not been cleared or approvedby the Food and Drug Administration.N Result Comment: [facility] [employer] Electrochemiluminescence Immunoassay(ECLIA)Values obtained with different assay methods or kits cannotbe used interchangeably. Results cannot be interpreted asabsolute evidence of the presence or absence of malignantdisease. Performed By: #### L 3100.3425, L3100.5450, L500.4100, L500.4050, L3890.6005, L3300.0100, L503.6030, L3000.0375, L503.6550, L501.5101, L3400.0700, L501.4700, L3100.5020, L300.3900, L3890.6200, L501.6710, L506.1000, L501.9520 ####[facility] [address] [place], [place], [phone] Ceruloplasminon 09-15-2024 CERULOPLASMIN 46.2 mg/dL High 16.0-31.0 [facility] Comment on above: Order Comment: Test( s) 043276-Qbvleq, Serum or Plasmawas developed and its performance characteristicsdetermined by [facility]. It has not been cleared or approvedby the Food and Drug Administration.N Performed By: #### L 3100.3425, L3100.5450, L500.4100, L500.4050, L3890.6005, L3300.0100, L503.6030, L3000.0375, L503.6550, L501.5101, L3400.0700, L501.4700, L3100.5020, L300.3900, L3890.6200, L501.6710, L506.1000, L501.9520 ####[facility] [address] [place], [place], [phone] Copper, Serum or Plasmaon COPPER, SERUM 185 ug/dL High 69-132 [facility] Comment on above: Order Comment: Test( s) 440263-Lisxfu, Serum or Plasmawas developed and its performance characteristicsdetermined by [facility]. It has not been cleared or approvedby the Food and Drug Administration.N Result Comment: Dete ction Limit = 5Performed at: [facility] [email or web address] [id number] Director: Raj Dick PhD, Phone: [phone] at: [facility] [email or web address] [id number] Director: Kelly Jansen MD, Phone: [phone] Performed By: #### L 3100.3425, L3100.5450, L500.4100, L500.4050, L3890.6005, L3300.0100, L503.6030, L3000.0375, L503.6550, L501.5101, L3400.0700, L501.4700, L3100.5020, L300.3900, L3890.6200, L501.6710, L506.1000, L501.9520 ####[facility] [address] [place], [place], [address] Hepatitis Panel Acuteon 08-30 COMMENT Comment Normal . [facility] Comment on above: Order Comment: Test( s) 574480-Qzecjt, Serum or Plasmawas developed and its performance characteristicsdetermined by [facility]. It has not been cleared or approvedby the Food and Drug Administration.N Result Comment: Not infected with HCV unless early or acute infection issuspected (which may be delayed in an immunocompromisedindividual), or other evidence exists to indicate HCVinfection. Performed By: #### L 3100.3425, L3100.5450, L500.4100, L500.4050, L3890.6005, L3300.0100, L503.6030, L3000.0375, L503.6550, L501.5101, L3400.0700, L501.4700, L3100.5020, L300.3900, L3890.6200, L501.6710, L506.1000, L501.9520 ####[facility] [address] [place], [place], [phone] HEP B CORE,IgM Negative Normal Negative [facility] Comment on above: Order Comment: Test( s) 792913-Kjofvm, Serum or Plasmawas developed and its performance characteristicsdetermined by [facility]. It has not been cleared or approvedby the Food and Drug Administration.N Performed By: #### L 3100.3425, L3100.5450, L500.4100, L500.4050, L3890.6005, L3300.0100, L503.6030, L3000.0375, L503.6550, L501.5101, L3400.0700, L501.4700, L3100.5020, L300.3900, L3890.6200, L501.6710, L506.1000, L501.9520 ####[facility] [address] [place], [place], [phone] HEP B SURF AG Negative Normal Negative [facility] Comment on above: Order Comment: Test( s) 592926-Eccgnl, Serum or Plasmawas developed and its performance characteristicsdetermined by [facility]. It has not been cleared or approvedby the Food and Drug Administration.N Performed By: #### L 3100.3425, L3100.5450, L500.4100, L500.4050, L3890.6005, L3300.0100, L503.6030, L3000.0375, L503.6550, L501.5101, L3400.0700, L501.4700, L3100.5020, L300.3900, L3890.6200, L501.6710, L506.1000, L501.9520 ####[facility] [address] [place], [address] HEP C VIRUS AB Non-Reactive Normal Non Reactive [facility] Comment on above: Order Comment: Test( s) 727756-Zcevyo, Serum or Plasmawas developed and its performance characteristicsdetermined by [facility]. It has not been cleared or approvedby the Food and Drug Administration.N Performed By: #### L 3100.3425, L3100.5450, L500.4100, L500.4050, L3890.6005, L3300.0100, L503.6030, L3000.0375, L503.6550, L501.5101, L3400.0700, L501.4700, L3100.5020, L300.3900, L3890.6200, L501.6710, L506.1000, L501.9520 ####[facility] [address] [place], [address] HEPATITIS A-IgM Negative Normal Negative [facility] Comment on above: Order Comment: Test( s) 853462-Dkjguc, Serum or Plasmawas developed and its performance characteristicsdetermined by [facility]. It has not been cleared or approvedby the Food and Drug Administration.N Result Comment: A ne gative anti-HAV IgM result suggests no recent orcurrent HAV infection. Performed By: #### L 3100.3425, L3100.5450, L500.4100, L500.4050, L3890.6005, L3300.0100, L503.6030, L3000.0375, L503.6550, L501.5101, L3400.0700, L501.4700, L3100.5020, L300.3900, L3890.6200, L501.6710, L506.1000, L501.9520 ####[facility] [address] [place], [address] AYDEN + Protein Elect, Serumon 09-15-2024 Albumin [Mass/Vol] 3.3 g/dL Normal 2.9-4.4 [facility] Comment on above: Order Comment: Test( s) 285684-Drfcdx, Serum or Plasmawas developed and its performance characteristicsdetermined by [facility]. It has not been cleared or approvedby the Food and Drug Administration.N Performed By: #### L 3100.3425, L3100.5450, L500.4100, L500.4050, L3890.6005, L3300.0100, L503.6030, L3000.0375, L503.6550, L501.5101, L3400.0700, L501.4700, L3100.5020, L300.3900, L3890.6200, L501.6710, L506.1000, L501.9520 ####[facility] [address] [place], [address] Albumin/Globulin [Mass ratio] 1.1 {ratio} Normal 0.7-1.7 [facility] Comment on above: Order Comment: Test( s) 573322-Xcfkap, Serum or Plasmawas developed and its performance characteristicsdetermined by [facility] [employer]. It has not been cleared or approvedby the Food and Drug Administration.N Performed By: #### L 3100.3425, L3100.5450, L500.4100, L500.4050, L3890.6005, L3300.0100, L503.6030, L3000.0375, L503.6550, L501.5101, L3400.0700, L501.4700, L3100.5020, L300.3900, L3890.6200, L501.6710, L506.1000, L501.9520 ####[facility] [address] [facility] [place], [address] JIPWH-1-QTCI 0.3 g/dL Normal 0.0-0.4 [facility] Comment on above: Order Comment: Test( s) 891701-Tkktkm, Serum or Plasmawas developed and its performance characteristicsdetermined by [facility]. It has not been cleared or approvedby the Food and Drug Administration.N Performed By: #### L 3100.3425, L3100.5450, L500.4100, L500.4050, L3890.6005, L3300.0100, L503.6030, L3000.0375, L503.6550, L501.5101, L3400.0700, L501.4700, L3100.5020, L300.3900, L3890.6200, L501.6710, L506.1000, L501.9520 ####[facility] [address] [facility] [place], [address] DZUEF-1-SIEJ 0.7 g/dL Normal 0.4-1.0 [facility] Comment on above: Order Comment: Test( s) 509218-Brwgqi, Serum or Plasmawas developed and its performance characteristicsdetermined by [facility]. It has not been cleared or approvedby the Food and Drug Administration.N Performed By: #### L 3100.3425, L3100.5450, L500.4100, L500.4050, L3890.6005, L3300.0100, L503.6030, L3000.0375, L503.6550, L501.5101, L3400.0700, L501.4700, L3100.5020, L300.3900, L3890.6200, L501.6710, L506.1000, L501.9520 ####[facility] [address] [facility] [place], [place], [phone] BETA GLOBULIN 1.4 g/dL High 0.7-1.3 [facility] Comment on above: Order Comment: Test( s) 599915-Vzzikd, Serum or Plasmawas developed and its performance characteristicsdetermined by [facility]. It has not been cleared or approvedby the Food and Drug Administration.N Performed By: #### L 3100.3425, L3100.5450, L500.4100, L500.4050, L3890.6005, L3300.0100, L503.6030, L3000.0375, L503.6550, L501.5101, L3400.0700, L501.4700, L3100.5020, L300.3900, L3890.6200, L501.6710, L506.1000, L501.9520 ####[facility] [address] [facility] [place], [place], [phone] GAMMA GLOBULIN 0.8 g/dL Normal 0.4-1.8 [facility] Comment on above: Order Comment: Test( s) 605063-Wrwfqo, Serum or Plasmawas developed and its performance characteristicsdetermined by [facility]. It has not been cleared or approvedby the Food and Drug Administration.N Performed By: #### L 3100.3425, L3100.5450, L500.4100, L500.4050, L3890.6005, L3300.0100, L503.6030, L3000.0375, L503.6550, L501.5101, L3400.0700, L501.4700, L3100.5020, L300.3900, L3890.6200, L501.6710, L506.1000, L501.9520 ####[facility] [address] [place], [place], [phone] Globulin (S) [Mass/Vol] 3.2 g/dL Normal 2.2-3.9 [facility] Comment on above: Order Comment: Test( s) 578457-Hgjsct, Serum or Plasmawas developed and its performance characteristicsdetermined by [facility]. It has not been cleared or approvedby the Food and Drug Administration.N Performed By: #### L 3100.3425, L3100.5450, L500.4100, L500.4050, L3890.6005, L3300.0100, L503.6030, L3000.0375, L503.6550, L501.5101, L3400.0700, L501.4700, L3100.5020, L300.3900, L3890.6200, L501.6710, L506.1000, L501.9520 ####[facility] [address] [place], [place], [phone] AYDEN RESULT,S Comment Normal . [facility] Comment on above: Order Comment: Test( s) 880379-Sanjuh, Serum or Plasmawas developed and its performance characteristicsdetermined by [facility] [employer]. It has not been cleared or approvedby the Food and Drug Administration.N Result Comment: No m onoclonality detected. Performed By: #### L 3100.3425, L3100.5450, L500.4100, L500.4050, L3890.6005, L3300.0100, L503.6030, L3000.0375, L503.6550, L501.5101, L3400.0700, L501.4700, L3100.5020, L300.3900, L3890.6200, L501.6710, L506.1000, L501.9520 ####[facility] [address] [place], [place], [phone] IMMUNOGLOB A QN 150 mg/dL Normal 90-386 [facility] Comment on above: Order Comment: Test( s) 098666-Vidicb, Serum or Plasmawas developed and its performance characteristicsdetermined by [facility]. It has not been cleared or approvedby the Food and Drug Administration.N Performed By: #### L 3100.3425, L3100.5450, L500.4100, L500.4050, L3890.6005, L3300.0100, L503.6030, L3000.0375, L503.6550, L501.5101, L3400.0700, L501.4700, L3100.5020, L300.3900, L3890.6200, L501.6710, L506.1000, L501.9520 ####[facility] [address] [place], [place], [phone] IMMUNOGLOB G QN 904 mg/dL Normal 603-1613 [facility] Comment on above: Order Comment: Test( s) 686424-Zstele, Serum or Plasmawas developed and its performance characteristicsdetermined by [facility]. It has not been cleared or approvedby the Food and Drug Administration.N Performed By: #### L 3100.3425, L3100.5450, L500.4100, L500.4050, L3890.6005, L3300.0100, L503.6030, L3000.0375, L503.6550, L501.5101, L3400.0700, L501.4700, L3100.5020, L300.3900, L3890.6200, L501.6710, L506.1000, L501.9520 ####[facility] [address] [place], [place], [phone] IMMUNOGLOB M QN 48 mg/dL Normal 20-172 [facility] Comment on above: Order Comment: Test( s) 535517-Bwoaxe, Serum or Plasmawas developed and its performance characteristicsdetermined by [facility] [employer]. It has not been cleared or approvedby the Food and Drug Administration.N Performed By: #### L 3100.3425, L3100.5450, L500.4100, L500.4050, L3890.6005, L3300.0100, L503.6030, L3000.0375, L503.6550, L501.5101, L3400.0700, L501.4700, L3100.5020, L300.3900, L3890.6200, L501.6710, L506.1000, L501.9520 ####[facility] [address] [facility] [place], [place], [phone] M-Mychal Not Observed Normal Not Observed [facility] Comment on above: Order Comment: Test( s) 723861-Ipidvb, Serum or Plasmawas developed and its performance characteristicsdetermined by [facility] [employer]. It has not been cleared or approvedby the Food and Drug Administration.N Performed By: #### L 3100.3425, L3100.5450, L500.4100, L500.4050, L3890.6005, L3300.0100, L503.6030, L3000.0375, L503.6550, L501.5101, L3400.0700, L501.4700, L3100.5020, L300.3900, L3890.6200, L501.6710, L506.1000, L501.9520 ####[facility] [address] [facility] [place], [place], [phone] NOTE: Comment Normal . [facility] Comment on above: Order Comment: Test( s) 312129-Hvzcbc, Serum or Plasmawas developed and its performance characteristicsdetermined by [facility] [employer]. It has not been cleared or approvedby the Food and Drug Administration.N Result Comment: Prot ein electrophoresis scan will follow via computer,mail, or motion picture camera operator delivery. Performed By: #### L 3100.3425, L3100.5450, L500.4100, L500.4050, L3890.6005, L3300.0100, L503.6030, L3000.0375, L503.6550, L501.5101, L3400.0700, L501.4700, L3100.5020, L300.3900, L3890.6200, L501.6710, L506.1000, L501.9520 ####[facility] [address] [place], [place], [phone] Protein [Mass/Vol] 6.5 g/dL Normal 6.0-8.5 [facility] Comment on above: Order Comment: Test( s) 858510-Ddnvva, Serum or Plasmawas developed and its performance characteristicsdetermined by [facility] [employer]. It has not been cleared or approvedby the Food and Drug Administration.N Performed By: #### L 3100.3425, L3100.5450, L500.4100, L500.4050, L3890.6005, L3300.0100, L503.6030, L3000.0375, L503.6550, L501.5101, L3400.0700, L501.4700, L3100.5020, L300.3900, L3890.6200, L501.6710, L506.1000, L501.9520 ####[facility] [address] [facility] [place], [place], [phone] L501.5101on 09-15-2024 GGTP 69 IU/L Abnormal 0-65 [facility] Comment on above: Order Comment: Test( s) 025044-Nievyf, Serum or Plasmawas developed and its performance characteristicsdetermined by [facility] [employer]. It has not been cleared or approvedby the Food and Drug Administration.N Performed By: #### L 3100.3425, L3100.5450, L500.4100, L500.4050, L3890.6005, L3300.0100, L503.6030, L3000.0375, L503.6550, L501.5101, L3400.0700, L501.4700, L3100.5020, L300.3900, L3890.6200, L501.6710, L506.1000, L501.9520 ####[facility] [address] [facility] [address] [place], [place], [phone] AFP, Tumor Markeron 09-14-20 AFP TUMOR ADRIANA 3.2 ng/mL Normal 0.0-6.9 [facility] Comment on above: Order Comment: NN [...] interpretable in females. _ TESTING PERFORMED AT [facility]. ORIGINAL REPORT ON FILE IN LAB CONTAINS ADDITIONAL TEST SITE INFORMATION. Performed By: #### L 3200.1100, L3300.0700, L3300.1200, L3200.0500, L504.2610 ####[facility] [address] [place], [place], [phone] QUIQUE w/ Reflex Mult Confirmon 09-14-2024 QUIQUE,DIRECT Negative Normal Negative [facility] Comment on above: Result Comment: Perf ormed at: [address] [id number] Director: Raj Dick PhD, Phone: [phone] Performed By: #### L 3100.3425, L3100.5450, L500.4100, L500.4050, L3890.6005, L3300.0100, L503.6030, L3000.0375, L503.6550, L501.5101, L3400.0700, L501.4700, L3100.5020, L300.3900, L3890.6200, L501.6710, L506.1000, L501.9520 ####[facility] [address] [place], [place], [phone] ANCAon 09-14-2024 Atypical pANCA <1:20 Normal Neg:<1:20 [facility] Comment on above: Order Comment: NN Result Comment: Note : Specimen is icteric.The atypical pANCA pattern has been observed in asignificant percentage of patients with ulcerative colitis,primary sclerosing cholangitis and autoimmune hepatitis. Performed By: #### L 3200.1100, L3300.0700, L3300.1200, L3200.0500, L504.2610 ####[facility] [address] [place], [place], [phone] Perinuclear Ab. <1:20 Normal Neg:<1:20 [facility] Comment on above: Order Comment: NN Result Comment: Note : Specimen is icteric.The presence of positive fluorescence exhibiting P-ANCA orC-ANCA patterns alone is not specific for the diagnosis ofWegener's Granulomatosis (WG) or microscopic polyangiitis.Decisions about treatment should not be based solely onANCA IFA results. The International ANCA Group Consensusrecommends follow up testing of positive sera with both SD-3 and MPO-ANCA enzyme immunoassays. As many as 5% serumsamples are positive only by EIA. Ref. AM J Clin Pxlnfi9690;111:507-513. Performed By: #### L 3200.1100, L3300.0700, L3300.1200, L3200.0500, L504.2610 ####[facility] [address] [place], [place], [phone] HIV - WCHon 12-16-2024 HIV Non-Reactive Normal Nonreactive [facility] Comment on above: Performed By: #### L 3100.3425, L3100.5450, L500.4100, L500.4050, L3890.6005, L3300.0100, L503.6030, L3000.0375, L503.6550, L501.5101, L3400.0700, L501.4700, L3100.5020, L300.3900, L3890.6200, L501.6710, L506.1000, L501.9520 ####[facility] [address] [place], [address] Hepatitis B Surface Antibody on 09-14-2024 HEP B Surf Ab Non-Reactive Normal [facility] Comment on above: Result Comment: Non Reactive: Inconsistent with immunity less than <10 mIU/mL Reactive: Consistent with immunity greater than or equal to 10 mIU/mL Performed By: #### L 3100.3425, L3100.5450, L500.4100, L500.4050, L3890.6005, L3300.0100, L503.6030, L3000.0375, L503.6550, L501.5101, L3400.0700, L501.4700, L3100.5020, L300.3900, L3890.6200, L501.6710, L506.1000, L501.9520 ####[facility] [address] [place], [address] IgG Subclasseson 09-14-2024 IgG, SUBCLASS 1 386 mg/dL Normal 248-810 [facility] Comment on above: Order Comment: NN Performed By: #### L 3200.1100, L3300.0700, L3300.1200, L3200.0500, L504.2610 ####[facility] [address] [place], [address] IgG, SUBCLASS 2 276 mg/dL Normal 130-555 [facility] Comment on above: Order Comment: NN Performed By: #### L 3200.1100, L3300.0700, L3300.1200, L3200.0500, L504.2610 ####[facility] [address] [place], [address] IgG, SUBCLASS 3 40 mg/dL Normal 15-102 [facility] Comment on above: Order Comment: NN Performed By: #### L 3200.1100, L3300.0700, L3300.1200, L3200.0500, L504.2610 ####[facility] [address] [place], [address] IgG, SUBCLASS 4 89 mg/dL Normal 2-96 [facility] Comment on above: Order Comment: NN Performed By: #### L 3200.1100, L3300.0700, L3300.1200, L3200.0500, L504.2610 ####[facility] [address] [place], [address] Immunoglobulins G/A/M/Brown IMMUNOGLOB A QN 140 mg/dL Normal 90-386 [facility] Comment on above: Order Comment: NN Performed By: #### L 3200.1100, L3300.0700, L3300.1200, L3200.0500, L504.2610 ####[facility] [address] [place], [address] IMMUNOGLOB E QN 40 IU/mL Normal 6-495 [facility] Comment on above: Order Comment: NN Performed By: #### L 3200.1100, L3300.0700, L3300.1200, L3200.0500, L504.2610 ####[facility] [address] [place], [address] IMMUNOGLOB M QN 42 mg/dL Normal 20-172 [facility] Comment on above: Order Comment: NN Performed By: #### L 3200.1100, L3300.0700, L3300.1200, L3200.0500, L504.2610 ####[facility] [address] [place], [place], [address] Vitamin D,25 Hydroxyon 09-14 Vitamin D 25-OH 52.6 ng/mL Normal [facility] Comment on above: Result Comment: Ruth Ann min D 25(OH) Status Range Deficiency <20 ng/mL (50nmol/L) Insufficiency 20 - 30 ng/mL (50 - 75 nmol/L) Sufficiency 30 - 100 ng/mL (75 - 250 nmol/L) Toxicity >100 ng/mL (>250 nmol/L) Performed By: #### L 3100.3425, L3100.5450, L500.4100, L500.4050, L3890.6005, L3300.0100, L503.6030, L3000.0375, L503.6550, L501.5101, L3400.0700, L501.4700, L3100.5020, L300.3900, L3890.6200, L501.6710, L506.1000, L501.9520 ####[facility] [address] [facility] [place], [address] 33-WG-Fyzrkae DOrdered By: Sarah Lui on 09-11-2024 Vitamin D 25-Hydroxy 52.6 ng/mL [facility] Comment on above: Vitamin D 25(OH) Sta tus Range Deficiency <20 ng/mL (50nmol/L) Insufficiency 20 - 30 ng/mL (50 - 75 nmol/L) Sufficiency 30 - 100 ng/mL (75 - 250 nmol/L) Toxicity >100 ng/mL (>250 nmol/L) QUIQUE serumOrdered By: Francesco Lui on 09-11-2024 Anti-Nuclear Antibody Screen Negative Negative [facility] Comment on above: Performed at: [address] [id number] Director: Raj Dick PhD, Phone: [phone] Addendum DocumentOrdered By: Francesco Lui on 09-11-2024 Serum Immunofixation Comments Comment . [facility] Comment on above: Protein electrophore sis scan will follow via computer,mail, or motion picture camera operator delivery. Albumin Elph [Mass/Vol]Order ed By: Francesco Lui on 09-11-2024 Albumin [Mass/Vol] 3.3 g/dL 2.9-4.4 [facility] Albumin to globulin ratioOrd ered By: Francesco Lui on 09-11-2024 Albumin/Globulin [Mass ratio] 0.8 {ratio} Low 0.9-2.4 [facility] Alpha 1 globulin Elph [Mass/ Vol]Ordered By: Francesco Lui on 09-11-2024 Aefjj-4-Ruhbsyaih (AYDEN) 0.3 g/dL 0.0-0.4 [facility] Hzvbs-9-Kebolpbsd (AYDEN) 0.7 g/dL 0.4-1.0 [facility] Beta globulin Elph [Mass/Vol ]Ordered By: Francesco Lui on 09-11-2024 Beta-Globulins (AYDEN) 1.4 g/dL High 0.7-1.3 [facility] Bilirubin directOrdered By: Francesco Lui on 09-11-2024 Bilirubin.direct [Mass/Vol] 11.21 mg/dL High 0.00-0.30 [facility] Bilirubin, Directon 09-11-20 24 Bilirubin.direct [Mass/Vol] 11.21 mg/dL High 0.00-0.30 [facility] Comment on above: Performed By: #### L 3100.3425, L3100.5450, L500.4100, L500.4050, L3890.6005, L3300.0100, L503.6030, L3000.0375, L503.6550, L501.5101, L3400.0700, L501.4700, L3100.5020, L300.3900, L3890.6200, L501.6710, L506.1000, L501.9520 ####[facility] [address] [place], [place], [address] Bilirubin, totalOrdered By: Francesco Lui on 09-11-2024 Bilirubin [Mass/Vol] 14.00 mg/dL High 0.20-1.00 [facility] Comment on above: For patients on eltr ombopag therapy, use of Dimension [place] TBIL is not recommended. Blood urea nitrogen (BUN)/cr eatinine ratioOrdered By: Francesco Lui on 09-11-2024 Urea nitrogen/Creatinine [Mass ratio] 13.9 mg/mg 10-20 [facility] C-reactive protein measureme nt by high sensitivity methodOrdered By: Francesco Lui on 09-11-2024 C-Reactive Protein Extended Range < 2.90 mg/L 0.0-3.0 [facility] Comment on above: C-Reactive Protein ( CRP) provides useful information for thediagnosis, therapy and monitoring of inflammatory processesand associated diseases. For the evaluation of Relative Riskfor Cardiovascular Disease, a High Sensitivity CRP (HSCRP)should be ordered. CA 19-9 agOrdered By: Flori Lui on 09-11-2024 CA 19-9 Antigen 63 U/mL High 0-35 [facility] Comment on above: [facility] [employer] El ectrochemiluminescence Immunoassay(ECLIA)Values obtained with different assay methods or kits cannotbe used interchangeably. Results cannot be interpreted asabsolute evidence of the presence or absence of malignantdisease. CRPon 09-11-2024 C-REACTIVE PROT < 2.90 Normal 0.0-3.0 [facility] Comment on above: Result Comment: C-Re active Protein (CRP) provides useful information for thediagnosis, therapy and monitoring of inflammatory processesand associated diseases. For the evaluation of Relative Riskfor Cardiovascular Disease, a High Sensitivity CRP (HSCRP)should be ordered. Performed By: #### L 3100.3425, L3100.5450, L500.4100, L500.4050, L3890.6005, L3300.0100, L503.6030, L3000.0375, L503.6550, L501.5101, L3400.0700, L501.4700, L3100.5020, L300.3900, L3890.6200, L501.6710, L506.1000, L501.9520 ####[facility] [address] [place], [place], [phone] Carbon dioxide measurementOr dered By: Francesco Lui on 09-11-2024 CO2 [Moles/Vol] 25.0 mmol/L 21.0-32.0 [facility] Centromere B antibody assayO rdered By: Francesco Lui on 09-11-2024 Centromere B Antibody Not Reportable [facility] CeruloplasminOrdered By: Mendoza Lui on 09-11-2024 Ceruloplasmin 46.2 mg/dL High 16.0-31.0 [facility] Chloride measurementOrdered By: Francesco Lui on 09-11-2024 Chloride [Moles/Vol] 105 mmol/L 98-107 [facility] Comprehensive Metabolic Prof ilon 09-11-2024 Albumin [Mass/Vol] 3.2 g/dL Normal 3.2-5.0 [facility] Comment on above: Performed By: #### L 3100.3425, L3100.5450, L500.4100, L500.4050, L3890.6005, L3300.0100, L503.6030, L3000.0375, L503.6550, L501.5101, L3400.0700, L501.4700, L3100.5020, L300.3900, L3890.6200, L501.6710, L506.1000, L501.9520 ####[facility] [address] [place], [place], [phone] Albumin/Globulin [Mass ratio] 0.8 {ratio} Low 0.9-2.4 [facility] Comment on above: Performed By: #### L 3100.3425, L3100.5450, L500.4100, L500.4050, L3890.6005, L3300.0100, L503.6030, L3000.0375, L503.6550, L501.5101, L3400.0700, L501.4700, L3100.5020, L300.3900, L3890.6200, L501.6710, L506.1000, L501.9520 ####[facility] [address] [place], [place], [phone] ALK P 155 U/L High 45-117 [facility] Comment on above: Performed By: #### L 3100.3425, L3100.5450, L500.4100, L500.4050, L3890.6005, L3300.0100, L503.6030, L3000.0375, L503.6550, L501.5101, L3400.0700, L501.4700, L3100.5020, L300.3900, L3890.6200, L501.6710, L506.1000, L501.9520 ####[facility] [address] [place], [address] ALT [Catalytic activity/Vol] 70 U/L High 16-61 [facility] Comment on above: Performed By: #### L 3100.3425, L3100.5450, L500.4100, L500.4050, L3890.6005, L3300.0100, L503.6030, L3000.0375, L503.6550, L501.5101, L3400.0700, L501.4700, L3100.5020, L300.3900, L3890.6200, L501.6710, L506.1000, L501.9520 ####[facility] [address] [place], [address] AST [Catalytic activity/Vol] 64 U/L High 15-37 [facility] Comment on above: Performed By: #### L 3100.3425, L3100.5450, L500.4100, L500.4050, L3890.6005, L3300.0100, L503.6030, L3000.0375, L503.6550, L501.5101, L3400.0700, L501.4700, L3100.5020, L300.3900, L3890.6200, L501.6710, L506.1000, L501.9520 ####[facility] [address] [place], [place], [phone] Bilirubin [Mass/Vol] 14.00 mg/dL High 0.20-1.00 [facility] Comment on above: Result Comment: For patients on eltrombopag therapy, use of Dimension [place] TBIL is not recommended. Performed By: #### L 3100.3425, L3100.5450, L500.4100, L500.4050, L3890.6005, L3300.0100, L503.6030, L3000.0375, L503.6550, L501.5101, L3400.0700, L501.4700, L3100.5020, L300.3900, L3890.6200, L501.6710, L506.1000, L501.9520 ####[facility] [address] [place], [address] BUN/CRE 13.9 RATIO Normal 10-20 [facility] Comment on above: Performed By: #### L 3100.3425, L3100.5450, L500.4100, L500.4050, L3890.6005, L3300.0100, L503.6030, L3000.0375, L503.6550, L501.5101, L3400.0700, L501.4700, L3100.5020, L300.3900, L3890.6200, L501.6710, L506.1000, L501.9520 ####[facility] [address] [place], [address] CA,Total 9.9 mg/dL Normal 8.5-10.1 [facility] Comment on above: Performed By: #### L 3100.3425, L3100.5450, L500.4100, L500.4050, L3890.6005, L3300.0100, L503.6030, L3000.0375, L503.6550, L501.5101, L3400.0700, L501.4700, L3100.5020, L300.3900, L3890.6200, L501.6710, L506.1000, L501.9520 ####[facility] [address] [place], [place], [phone]) Chloride [Moles/Vol] 105 mmol/L Normal 98-107 [facility] Comment on above: Performed By: #### L 3100.3425, L3100.5450, L500.4100, L500.4050, L3890.6005, L3300.0100, L503.6030, L3000.0375, L503.6550, L501.5101, L3400.0700, L501.4700, L3100.5020, L300.3900, L3890.6200, L501.6710, L506.1000, L501.9520 ####[facility] [address] [place], [place], [phone]) CO2 [Moles/Vol] 25.0 mmol/L Normal 21.0-32.0 [facility] Comment on above: Performed By: #### L 3100.3425, L3100.5450, L500.4100, L500.4050, L3890.6005, L3300.0100, L503.6030, L3000.0375, L503.6550, L501.5101, L3400.0700, L501.4700, L3100.5020, L300.3900, L3890.6200, L501.6710, L506.1000, L501.9520 ####[facility] [address] [place], [place], [phone] Creatinine [Mass/Vol] 1.22 mg/dL Normal 0.70-1.30 [facility] Comment on above: Result Comment: Mode rate Icterus, Result may be falsely decreased.The validity of the calculated GFR GFRAA in patients over70 years has not been determined. Clinical correlation isessential. Performed By: #### L 3100.3425, L3100.5450, L500.4100, L500.4050, L3890.6005, L3300.0100, L503.6030, L3000.0375, L503.6550, L501.5101, L3400.0700, L501.4700, L3100.5020, L300.3900, L3890.6200, L501.6710, L506.1000, L501.9520 ####[facility] [address] [place], [place], [phone] EST GFR - AA 84 mL/min Normal >60 [facility] Comment on above: Result Comment: Afri can Citizen [place] GFR Calc Performed By: #### L 3100.3425, L3100.5450, L500.4100, L500.4050, L3890.6005, L3300.0100, L503.6030, L3000.0375, L503.6550, L501.5101, L3400.0700, L501.4700, L3100.5020, L300.3900, L3890.6200, L501.6710, L506.1000, L501.9520 ####[facility] [address] [place], [address] GAP 7 Normal 5-15 [facility] Comment on above: Performed By: #### L 3100.3425, L3100.5450, L500.4100, L500.4050, L3890.6005, L3300.0100, L503.6030, L3000.0375, L503.6550, L501.5101, L3400.0700, L501.4700, L3100.5020, L300.3900, L3890.6200, L501.6710, L506.1000, L501.9520 ####[facility] [address] [place], [address] GFR/1.73 sq M.predicted among non-blacks MDRD (S/P/Bld) [Vol rate/Area] 70 mL/min/{1.73_m2} Normal >60 [facility] Comment on above: Result Comment: Non- GFR Calc Performed By: #### L 3100.3425, L3100.5450, L500.4100, L500.4050, L3890.6005, L3300.0100, L503.6030, L3000.0375, L503.6550, L501.5101, L3400.0700, L501.4700, L3100.5020, L300.3900, L3890.6200, L501.6710, L506.1000, L501.9520 ####[facility] [address] [place], [address] Globulin (S) [Mass/Vol] 3.8 g/dL Normal 2.2-4.2 [facility] Comment on above: Performed By: #### L 3100.3425, L3100.5450, L500.4100, L500.4050, L3890.6005, L3300.0100, L503.6030, L3000.0375, L503.6550, L501.5101, L3400.0700, L501.4700, L3100.5020, L300.3900, L3890.6200, L501.6710, L506.1000, L501.9520 ####[facility] [address] [facility] [place], [place], [phone]) Glucose [Mass/Vol] 112 mg/dL High 74-106 [facility] Comment on above: Result Comment: Fast ing Glucose result from 100 to 125 mg/dLsuggests IMPAIRED HOMEOSTASIS per A.D.A. criteria. Performed By: #### L 3100.3425, L3100.5450, L500.4100, L500.4050, L3890.6005, L3300.0100, L503.6030, L3000.0375, L503.6550, L501.5101, L3400.0700, L501.4700, L3100.5020, L300.3900, L3890.6200, L501.6710, L506.1000, L501.9520 ####[facility] [address] [place], [place], [phone] Potassium [Moles/Vol] 4.0 mmol/L Normal 3.5-5.1 [facility] Comment on above: Performed By: #### L 3100.3425, L3100.5450, L500.4100, L500.4050, L3890.6005, L3300.0100, L503.6030, L3000.0375, L503.6550, L501.5101, L3400.0700, L501.4700, L3100.5020, L300.3900, L3890.6200, L501.6710, L506.1000, L501.9520 ####[facility] [address] [place], [place], [phone] Sodium [Moles/Vol] 137 mmol/L Normal 136-145 [facility] Comment on above: Performed By: #### L 3100.3425, L3100.5450, L500.4100, L500.4050, L3890.6005, L3300.0100, L503.6030, L3000.0375, L503.6550, L501.5101, L3400.0700, L501.4700, L3100.5020, L300.3900, L3890.6200, L501.6710, L506.1000, L501.9520 ####[facility] [address] [place], [place], [phone] T PROT 7.0 g/dL Normal 6.4-8.2 [facility] Comment on above: Result Comment: Mode rate Icterus, Result may be falsely decreased. Performed By: #### L 3100.3425, L3100.5450, L500.4100, L500.4050, L3890.6005, L3300.0100, L503.6030, L3000.0375, L503.6550, L501.5101, L3400.0700, L501.4700, L3100.5020, L300.3900, L3890.6200, L501.6710, L506.1000, L501.9520 ####[facility] [address] [place], [place], [phone] Urea nitrogen [Mass/Vol] 17 mg/dL Normal 7-18 [facility] Comment on above: Performed By: #### L 3100.3425, L3100.5450, L500.4100, L500.4050, L3890.6005, L3300.0100, L503.6030, L3000.0375, L503.6550, L501.5101, L3400.0700, L501.4700, L3100.5020, L300.3900, L3890.6200, L501.6710, L506.1000, L501.9520 ####[facility] [address] [place], [address] Copper, serumOrdered By: Mendoza Lui on 09-11-2024 Serum Copper 185 ug/dL High 69-132 [facility] Comment on above: Detection Limit = 5P erformed at: [facility] [address] [id number] Director: Raj Dick PhD, Phone: [phone] at: [facility] [address] [id number] Director: Kelly Jansen MD, Phone: [phone] DNA double strand Ab Qn (S)O rdered By: Francesco Lui on 09-11-2024 Anti-Double Strand DNA Antibody Not Reportable [facility] Estimated glomerular filtrat ion rate (GFR) AmericanOrdered By: Francesco Lui on 09-11-2024 Estimated GFR (MDRD) Amer 84 mL/min >60 [facility] Comment on above: GFR Calc Ferritinon 09-11-2024 Ferritin [Mass/Vol] 746 ng/mL High 26-388 [facility] Comment on above: Result Comment: Mode rate Icterus, Result may be falsely decreased. Performed By: #### L 3100.3425, L3100.5450, L500.4100, L500.4050, L3890.6005, L3300.0100, L503.6030, L3000.0375, L503.6550, L501.5101, L3400.0700, L501.4700, L3100.5020, L300.3900, L3890.6200, L501.6710, L506.1000, L501.9520 ####[facility] [address] [place], [address] Ferritin measurementOrdered By: Francesco Lui on 09-11-2024 Ferritin [Mass/Vol] 746 ng/mL High 26-388 [facility] Comment on above: Moderate Icterus, Re sult may be falsely decreased. Gamma globulin Elph [Mass/Vo l]Ordered By: Francesco Lui on 09-11-2024 Gamma Globulins (AYDEN) 0.8 g/dL 0.4-1.8 [facility] Gamma glutamyl transferase ( GGT) measurementOrdered By: Francesco Lui on 09-11-2024 Amylase [Catalytic activity/Vol] 69 U/L High 0-65 [facility] Gastroenterology Visit Repor ton 09-11-2024 Gastroenterology Visit Report Normal [facility] Glomerular filtration rate ( GFR) estimationOrdered By: Francesco Lui on 09-11-2024 Estimated GFR (MDRD) Non-Af Amer 70 mL/min >60 [facility] Comment on above: Non- GFR Calc Glucose measurementOrdered B y: Francesco Lui on 09-11-2024 Glucose [Mass/Vol] 112 mg/dL High 74-106 [facility] Comment on above: Fasting Glucose resu lt from 100 to 125 mg/dL suggests IMPAIRED HOMEOSTASIS per A.D.A. criteria. HBV surface Ag IA QlOrdered By: Francesco Lui on 09-11-2024 Hepatitis B Surface Antigen Negative Negative [facility] HBV surface IgG Ql (S)Ordere d By: Francesco Lui on 09-11-2024 Hepatitis B Surface Antibody Non-Reactive [facility] Comment on above: Non Reactive: Incons istent with immunity less than <10 mIU/mL Reactive: Consistent with immunity greater than or equal to 10 mIU/mL HIV 1+2 Ab+HIV1 p24 Ag IA Ql Ordered By: Francesco Lui on 09-11-2024 HIV (1&2) Antibody Non-Reactive Nonreactive [facility] Hepatitis A virus IgM antibo dy assayOrdered By: Francesco Lui on 09-11-2024 Hepatitis A IgM Antibody Negative Negative [facility] Comment on above: A negative anti-HAV IgM result suggests no recent orcurrent HAV infection. Hepatitis B virus core IgM a ntibody assayOrdered By: Francesco Lui on 09-11-2024 Hepatitis B Core IgM Antibody Negative Negative [facility] Hepatitis C virus antibody a ssayOrdered By: Francesco Lui on 09-11-2024 Hepatitis C Antibody (EIA) Non-Reactive Non Reactive [facility] High density lipoprotein (HD L) measurementOrdered By: Francesco Lui on 09-11-2024 Cholesterol in HDL [Mass/Vol] 7 mg/dL Low >40 [facility] Comment on above: The drugs N-Acetylcy steine and Metamizole may falsely depress this assay. Reference Range HDL <40 mg/dL Low HDL Cholesterol HDL >or= 60 mg/dL High HDL Cholesterol IgA [Mass/Vol]Ordered By: Gracie Lui on 09-11-2024 Immunoglobulin A 150 mg/dL 90-386 [facility] IgG [Mass/Vol]Ordered By: Gracie Lui on 09-11-2024 Immunoglobulin G 904 mg/dL 603-1613 [facility] Immunoglobulin M measurement Ordered By: Francesco Lui on 09-11-2024 Immunoglobulin M 48 mg/dL 20-172 [facility] International normalized rat io (INR) calculationOrdered By: Francesco Lui on 09-11-2024 INR Coag (Bld) [Relative time] 0.9 {INR} [facility] Interpretation IEP [Interp]O rdered By: Francesco Lui on 09-11-2024 Immunofixation Screen Comment . [facility] Comment on above: No monoclonality det ected. Iron (Unsp spec) [Mass/Mass] Ordered By: Francesco Lui on 09-11-2024 Iron [Mass/Vol] 123 ug/dL 65-175 [facility] Iron saturation [Mass fracti on]Ordered By: Francesco Lui on 09-11-2024 Iron Saturation 32.5 % 15.0-55.0 [facility] Iron+Iron Binding Capacityon 09-11-2024 Iron [Mass/Vol] 123 ug/dL Normal 65-175 [facility] Comment on above: Performed By: #### L 3100.3425, L3100.5450, L500.4100, L500.4050, L3890.6005, L3300.0100, L503.6030, L3000.0375, L503.6550, L501.5101, L3400.0700, L501.4700, L3100.5020, L300.3900, L3890.6200, L501.6710, L506.1000, L501.9520 ####[facility] [address] [place], [address] IRON SATURATION 32.5 Normal 15.0-55.0 [facility] Comment on above: Performed By: #### L 3100.3425, L3100.5450, L500.4100, L500.4050, L3890.6005, L3300.0100, L503.6030, L3000.0375, L503.6550, L501.5101, L3400.0700, L501.4700, L3100.5020, L300.3900, L3890.6200, L501.6710, L506.1000, L501.9520 ####[facility] [address] [place], [address] TIBC 378 ug/dL Normal 250-450 [facility] Comment on above: Performed By: #### L 3100.3425, L3100.5450, L500.4100, L500.4050, L3890.6005, L3300.0100, L503.6030, L3000.0375, L503.6550, L501.5101, L3400.0700, L501.4700, L3100.5020, L300.3900, L3890.6200, L501.6710, L506.1000, L501.9520 ####[facility] [address] [place], [place], [id number] Tessa-1 antibody assayOrdered B y: Francesco Lui on 09-11-2024 TESSA-1 Antibody Not Reportable [facility] Laboratory - Chemistry and C hemistry - challengeOrdered By: Francesco Lui on 09-11-2024 AST [Catalytic activity/Vol] 64 U/L High 15-37 [facility] Lipid Profileon 09-11-2024 Cholesterol [Mass/Vol] 215 mg/dL High 200 [facility] Comment on above: Result Comment: Mode rate Icterus, Result may be falsely decreased. <200 mg/dL Desirable 200-240 mg/dL Borderline >240 mg/dL High Risk Performed By: #### L 3100.3425, L3100.5450, L500.4100, L500.4050, L3890.6005, L3300.0100, L503.6030, L3000.0375, L503.6550, L501.5101, L3400.0700, L501.4700, L3100.5020, L300.3900, L3890.6200, L501.6710, L506.1000, L501.9520 ####[facility] [address] [place], [place], [phone] Cholesterol in HDL [Mass/Vol] 7 mg/dL Low [facility] Comment on above: Result Comment: The drugs N-Acetylcysteine and Metamizole may falselydepress this assay. Reference Range HDL <40 mg/dL Low HDL Cholesterol HDL >or= 60 mg/dL High HDL Cholesterol Performed By: #### L 3100.3425, L3100.5450, L500.4100, L500.4050, L3890.6005, L3300.0100, L503.6030, L3000.0375, L503.6550, L501.5101, L3400.0700, L501.4700, L3100.5020, L300.3900, L3890.6200, L501.6710, L506.1000, L501.9520 ####[facility] [address] [place], [place], [phone] Cholesterol in LDL [Mass/Vol] 139 mg/dL High 0-130 [facility] Comment on above: Performed By: #### L 3100.3425, L3100.5450, L500.4100, L500.4050, L3890.6005, L3300.0100, L503.6030, L3000.0375, L503.6550, L501.5101, L3400.0700, L501.4700, L3100.5020, L300.3900, L3890.6200, L501.6710, L506.1000, L501.9520 ####[facility] [address] [place], [place], [phone]) Cholesterol in VLDL [Mass/Vol] 69 mg/dL High 5-40 [facility] Comment on above: Performed By: #### L 3100.3425, L3100.5450, L500.4100, L500.4050, L3890.6005, L3300.0100, L503.6030, L3000.0375, L503.6550, L501.5101, L3400.0700, L501.4700, L3100.5020, L300.3900, L3890.6200, L501.6710, L506.1000, L501.9520 ####[facility] [address] [place], [place], [id number]) Triglyceride [Mass/Vol] 345 mg/dL High [facility] Comment on above: Result Comment: The [...] L501.4700, L3100.5020, L300.3900, L3890.6200, L501.6710, L506.1000, L501.9520 ####[facility] [address] [place], [place], [id number] Low density lipoprotein (LDL ) cholesterol measurementOrdered By: Francesco Lui on 09-11-2024 Cholesterol in LDL [Mass/Vol] 139 mg/dL High 0-130 [facility] No Panel InformationOrdered By: Francesco Lui on 09-11-2024 Hepatitis C Antibody Comment Comment . [facility] Comment on above: Not infected with HC V unless early or acute infection issuspected (which may be delayed in an immunocompromisedindividual), or other evidence exists to indicate HCVinfection. Potassium measurementOrdered By: Francesco Lui on 09-11-2024 Potassium [Moles/Vol] 4.0 mmol/L 3.5-5.1 [facility] Protein Fractions Immunofixa tion Emanuel [Interp]Ordered By: Francesco Lui on 09-11-2024 M-Mychal (AYDEN) Not Observed g/dL Not Observed [facility] Prothrombin Time w/INRon INR Coag (PPP) [Relative time] 0.9 {INR} Normal [facility] Comment on above: Performed By: #### L 3100.3425, L3100.5450, L500.4100, L500.4050, L3890.6005, L3300.0100, L503.6030, L3000.0375, L503.6550, L501.5101, L3400.0700, L501.4700, L3100.5020, L300.3900, L3890.6200, L501.6710, L506.1000, L501.9520 ####[facility] [address] [place], [address] PT Coag (PPP) [Time] 12.3 s Normal 11.7-14.9 [facility] Comment on above: Performed By: #### L 3100.3425, L3100.5450, L500.4100, L500.4050, L3890.6005, L3300.0100, L503.6030, L3000.0375, L503.6550, L501.5101, L3400.0700, L501.4700, L3100.5020, L300.3900, L3890.6200, L501.6710, L506.1000, L501.9520 ####[facility] [address] [place], [address] Prothrombin timeOrdered By: Francesco Lui on 09-11-2024 PT Coag (PPP) [Time] 12.3 s 11.7-14.9 [facility] CERTIFIED BREASTFEEDING EDUCATOR abOrdered By: Francesco Acharya and on 09-11-2024 CERTIFIED BREASTFEEDING EDUCATOR Antibody Not Reportable [facility] SCL-70 extractable nuclear A b Qn (S)Ordered By: Francesco Lui on 09-11-2024 Scl-70 (Scleroderma) Antibody Not Reportable [facility] SS-A IgG antibody assayOrder ed By: Francesco Lui on 09-11-2024 SS-A/Ro IgG Antibody Not Reportable [facility] SS-B IgG antibody assayOrder ed By: Francesco Lui on 09-11-2024 SS-B/La IgG Antibody Not Reportable [facility] Serum albumin/globulin ratio Ordered By: Francesco Lui on 09-11-2024 Albumin/Globulin (AYDEN) 1.1 0.7-1.7 [facility] Serum anion gap measurementO rdered By: Francesco Lui on 09-11-2024 Anion gap [Moles/Vol] 7 mmol/L 5-15 [facility] Serum globulin measurement ( mass/volume)Ordered By: Francesco Lui on 09-11-2024 Globulin (S) [Mass/Vol] 3.2 g/dL 2.2-3.9 [facility] Serum or plasma alanine mays otransferase (ALT) measurementOrdered By: Francesco Lui on 09-11-2024 ALT [Catalytic activity/Vol] 70 U/L High 16-61 [facility] Serum or plasma albumin marquise urement (mass/volume)Ordered By: Francesco Lui on 09-11-2024 Albumin [Mass/Vol] 3.2 g/dL 3.2-5.0 [facility] Serum or plasma alkaline daniel sphatase measurementOrdered By: Francesco Lui on 09-11-2024 ALP [Catalytic activity/Vol] 155 U/L High 45-117 [facility] Serum or plasma calcium marquise urement (mass/volume)Ordered By: Francesco Lui on 09-11-2024 Calcium [Mass/Vol] 9.9 mg/dL 8.5-10.1 [facility] Serum or plasma cholesterol measurement (mass/volume)Ordered By: Francesco Lui on 09-11-2024 Cholesterol [Mass/Vol] 215 mg/dL High <200 [facility] Comment on above: Moderate Icterus, Re sult may be falsely decreased. <200 mg/dL Desirable 200-240 mg/dL Borderline >240 mg/dL High Risk Serum or plasma creatinine m easurement (mass/volume)Ordered By: Francesco Lui on 09-11-2024 Creatinine [Mass/Vol] 1.22 mg/dL 0.70-1.30 [facility] Comment on above: Moderate Icterus, Re sult may be falsely decreased.The validity of the calculated GFR & GFRAA in patients over 70 years has not been determined. Clinical correlation is essential. Serum or plasma protein marquise urement (mass/volume)Ordered By: Francesco Lui on 09-11-2024 Protein [Mass/Vol] 6.5 g/dL 6.0-8.5 [facility] Serum or plasma urea nitroge n measurement (mass/volume)Ordered By: Francesco Lui on 09-11-2024 Urea nitrogen [Mass/Vol] 17 mg/dL 7-18 [facility] Batista antibody assayOrdered By: Francesco Lui on 09-11-2024 SM Antibody Not Reportable [facility] Sodium levelOrdered By: Frederick Lui on 12-13-2024 Sodium [Moles/Vol] 137 mmol/L 136-145 [facility] TIBCOrdered By: Francesco love on 09-11-2024 Total Iron Binding Capacity 378 ug/dL 250-450 [facility] TSH QnOrdered By: Francesco Acharya and on 09-11-2024 Thyroid Stimulating Hormone (TSH) 0.918 uIU/mL 0.358-3.740 [facility] Thyroid Stim Hormone (TSH)on 09-11-2024 TSH 0.918 uIU/mL Normal 0.358-3.740 [facility] Comment on above: Performed By: #### L 3100.3425, L3100.5450, L500.4100, L500.4050, L3890.6005, L3300.0100, L503.6030, L3000.0375, L503.6550, L501.5101, L3400.0700, L501.4700, L3100.5020, L300.3900, L3890.6200, L501.6710, L506.1000, L501.9520 ####[facility] [address] [place], [place], [address] Total proteinOrdered By: Mendoza Lui on 09-11-2024 Protein [Mass/Vol] 7.0 g/dL 6.4-8.2 [facility] Comment on above: Moderate Icterus, Re sult may be falsely decreased. Triglycerides measurementOrd ered By: Francesco Lui on 09-11-2024 Triglyceride [Mass/Vol] 345 mg/dL High <199 [facility] Comment on above: The drugs N-Acetylcy [...] 09-11-2024 VLDL Cholesterol 69 mg/dL High 5-40 [facility] QUIQUE Comprehensive Panelon QUIQUE TABLE Comment Normal . [facility] Comment on above: Result Comment: Auto antibody Disease Association ------- Condition Frequency ---------Antinuclear Antibody, SLE, mixed connectiveDirect (QUIQUE-D) tissue diseases ---------dsDNA SLE 40 - 60% ---------Chromatin Drug induced SLE 90% SLE 48 - 97% ---------SSA (Ro) SLE 25 - 35% Sjogren's Syndrome 40 - 70% Lupus 100% ---------SSB (La) SLE 10% Sjogren's Syndrome 30% ---------Sm (anti-Batista) SLE 15 - 30% ---------CERTIFIED BREASTFEEDING EDUCATOR Mixed Connective Tissue Disease 95%(U1 nRNP, SLE 30 - 50%anti-ribonucleoprotein) Polymyositis and/or Dermatomyositis 20% ---------Scl-70 (antiDNA Scleroderma (diffuse) 20 - 35%topoisomerase) Crest 13% ---------Tessa-1 Polymyositis and/or Dermatomyositis 20 - 40% ---------Centromere B Scleroderma - Crest variant 80%Performed at: [place] [id number] Director: Raj Dick PhD, Phone: [phone] Performed By: #### L 3100.4940, L3100.8275 ####[facility] [address] [facility] [place], [address] ANTI-CENT B AB <0.2 Normal 0.0-0.9 [facility] Comment on above: Performed By: #### L 3100.5440, L3100.5020 ####[facility] [address] [facility] [place], [address] ANTI-DNA (DS)AB <1 Normal 0-9 [facility] Comment on above: Result Comment: Nega tive <5 Equivocal 5 - 9 Positive >9 Performed By: #### L 3100.5440, L3100.5020 ####[facility] [address] [place], [address] ANTI-TESSA-1 <0.2 Normal 0.0-0.9 [facility] Comment on above: Performed By: #### L 3100.5440, L3100.5020 ####[facility] [address] [place], [address] ANTI-SS-A < 0.2 Normal 0.0-0.9 [facility] Comment on above: Performed By: #### L 3100.5440, L3100.5020 ####[facility] [address] [place], [address] ANTI-SS-B < 0.2 Normal 0.0-0.9 [facility] Comment on above: Performed By: #### L 3100.5440, L3100.5020 ####[facility] [address] [place], [address] ANTICHROMATIN <0.2 Normal 0.0-0.9 [facility] Comment on above: Performed By: #### L 3100.5440, L3100.5020 ####[facility] [address] [place], [address] ANTISCLERODERM <0.2 Normal 0.0-0.9 [facility] Comment on above: Performed By: #### L 3100.5440, L3100.5020 ####[facility] [address] [place], [address] CERTIFIED BREASTFEEDING EDUCATOR Ab <0.2 Normal 0.0-0.9 [facility] Comment on above: Performed By: #### L 3100.5440, L3100.5020 ####[facility] [address] [place], [address] BATISTA Ab <0.2 Normal 0.0-0.9 [facility] Comment on above: Performed By: #### L 3100.5440, L3100.5020 ####[facility] [address] [place], [place], [address] Carbohydrate AG 19-9on 09-08 CA 19-9 139 U/mL High 0-35 [facility] Comment on above: Result Comment: [facility] Electrochemiluminescence Immunoassay(ECLIA)Values obtained with different assay methods or kits cannotbe used interchangeably. Results cannot be interpreted asabsolute evidence of the presence or absence of malignantdisease.Performed at: [facility] [id number] Director: Raj Dick PhD, Phone: [phone] Performed By: #### L 3100.5440, L3737.5029 ####[facility] [address] [place], [place], [address] ERCP Reporton 09-08-2024 ERCP Report Normal [facility] Albumin to globulin ratioOrd ered By: Cruz Arciniega on 09-07-2024 Albumin/Globulin [Mass ratio] 0.8 {ratio} Low 0.9-2.4 [facility] Bilirubin, totalOrdered By: Cruz Arciniega on 09-07-2024 Bilirubin [Mass/Vol] 16.70 mg/dL High 0.20-1.00 [facility] Comment on above: Critical Result(s) C alled at: 06:50:04 09/07/2024 by: Leesa Goodman to [facility]. Results read back by same. For patients on eltrombopag therapy, use of Dimension [place] TBIL is not recommended. Blood urea nitrogen (BUN)/cr eatinine ratioOrdered By: Cruz Arciniega on 09-07-2024 Urea nitrogen/Creatinine [Mass ratio] 16.8 mg/mg 10-20 [facility] Carbon dioxide measurementOr dered By: Cruz Arciniega on 09-07-2024 CO2 [Moles/Vol] 26.0 mmol/L 21.0-32.0 [facility] Chloride measurementOrdered By: Cruz Arciniega on 09-07-2024 Chloride [Moles/Vol] 106 mmol/L 98-107 [facility] Comprehensive Metabolic Prof beka 09-07-2024 Albumin [Mass/Vol] 2.6 g/dL Low 3.2-5.0 [facility] Comment on above: Performed By: #### L 500.4050 ####[facility] [address] [place], [place], [address] Albumin/Globulin [Mass ratio] 0.8 {ratio} Low 0.9-2.4 [facility] Comment on above: Performed By: #### L 500.4050 ####[facility] [address] [place], [address] ALK P 150 U/L High 45-117 [facility] Comment on above: Performed By: #### L 500.4050 ####[facility] [address] [place], [address] ALT [Catalytic activity/Vol] 50 U/L Normal 16-61 [facility] Comment on above: Performed By: #### L 500.4050 ####[facility] [address] [place], [address] AST [Catalytic activity/Vol] 47 U/L High 15-37 [facility] Comment on above: Performed By: #### L 500.4050 ####[facility] [address] [place], [place], [address] Bilirubin [Mass/Vol] 16.70 mg/dL Invalid Interpretation Code 0.20-1.00 [facility] Comment on above: Result Comment: Crit ical Result(s) Called at: 06:50:04 09/07/2024 by:Leesa Goodman to [facility]. Results read back by same. For patients on eltrombopag therapy, use of Dimension [place] TBIL is not recommended. Performed By: #### L 500.4050 ####[facility] [address] [place], [address] BUN/CRE 16.8 RATIO Normal 10-20 [facility] Comment on above: Performed By: #### L 500.4050 ####[facility] [address] [place], [address] CA,Total 9.4 mg/dL Normal 8.5-10.1 [facility] Comment on above: Performed By: #### L 500.4050 ####[facility] [address] [place], [address] Chloride [Moles/Vol] 106 mmol/L Normal 98-107 [facility] Comment on above: Performed By: #### L 500.4050 ####[facility] [address] [place], [address] CO2 [Moles/Vol] 26.0 mmol/L Normal 21.0-32.0 [facility] Comment on above: Performed By: #### L 500.4050 ####[facility] [address] [place], [address] Creatinine [Mass/Vol] 1.19 mg/dL Normal 0.70-1.30 [facility] Comment on above: Result Comment: Mode rate Icterus, Result may be falsely decreased.The validity of the calculated GFR GFRAA in patients over70 years has not been determined. Clinical correlation isessential. Performed By: #### L 500.4050 ####[facility] [address] [place], [address] ECRCL 93.41 ml/min Normal [facility] Comment on above: Performed By: #### L 500.4050 ####[facility] [address] [place], [address] EST GFR - AA 87 mL/min Normal >60 [facility] Comment on above: Result Comment: Afri can Citizen Of [place] GFR Calc Performed By: #### L 500.4050 ####[facility] [address] [place], [address] GAP 6 Normal 5-15 [facility] Comment on above: Performed By: #### L 500.4050 ####[facility] [address] [place], [address] GFR/1.73 sq M.predicted among non-blacks MDRD (S/P/Bld) [Vol rate/Area] 72 mL/min/{1.73_m2} Normal >60 [facility] Comment on above: Result Comment: Non- GFR Calc Performed By: #### L 500.4050 ####[facility] [address] [place], [address] Globulin (S) [Mass/Vol] 3.4 g/dL Normal 2.2-4.2 [facility] Comment on above: Performed By: #### L 500.4050 ####[facility] [address] [place], [address] Glucose [Mass/Vol] 100 mg/dL Normal 74-106 [facility] Comment on above: Result Comment: Fast ing Glucose result from 100 to 125 mg/dLsuggests IMPAIRED HOMEOSTASIS per A.D.A. criteria. Performed By: #### L 500.4050 ####[facility] [address] [place], [address] Potassium [Moles/Vol] 3.8 mmol/L Normal 3.5-5.1 [facility] Comment on above: Performed By: #### L 500.4050 ####[facility] [address] [place], [address] Sodium [Moles/Vol] 138 mmol/L Normal 136-145 [facility] Comment on above: Performed By: #### L 500.4050 ####[facility] [address] [place], [address] T PROT 6.0 g/dL Low 6.4-8.2 [facility] Comment on above: Result Comment: Mode rate Icterus, Result may be falsely decreased. Performed By: #### L 500.4050 ####[facility] [address] [place], [place], [address] Urea nitrogen [Mass/Vol] 20 mg/dL High 7-18 [facility] Comment on above: Performed By: #### L 500.4050 ####[facility] [address] [place], [place], [id number] Estimated glomerular filtrat ion rate (GFR) AmericanOrdered By: Cruz Arciniega on 09-07-2024 Estimated GFR (MDRD) Amer 87 mL/min >60 [facility] Comment on above: GFR Calc Estimation of creatinine alyson aranceOrdered By: Cruz Arciniega on 09-07-2024 Estimated Creatinine Clearance Calc 93.41 ml/min [facility] Glomerular filtration rate ( GFR) estimationOrdered By: Cruz Arciniega on 09-07-2024 Estimated GFR (MDRD) Non-Af Amer 72 mL/min >60 [facility] Comment on above: Non- GFR Calc Glucose measurementOrdered B y: Cruz Arciniega on 09-07-2024 Glucose [Mass/Vol] 100 mg/dL 74-106 [facility] Comment on above: Fasting Glucose resu lt from 100 to 125 mg/dL suggests IMPAIRED HOMEOSTASIS per A.D.A. criteria. Laboratory - Chemistry and C hemistry - challengeOrdered By: Cruz Arciniega on 09-07-2024 AST [Catalytic activity/Vol] 47 U/L High 15-37 [facility] MR/PN.GIon 09-07-2024 MR/PN.GI Normal [facility] Potassium measurementOrdered By: Cruz Arciniega on 09-07-2024 Potassium [Moles/Vol] 3.8 mmol/L 3.5-5.1 [facility] Serum anion gap measurementO rdered By: Cruz Arciniega on 09-07-2024 Anion gap [Moles/Vol] 6 mmol/L 5-15 [facility] Serum globulin measurementOr dered By: Cruz Arciniega on 09-07-2024 Globulin (S) [Mass/Vol] 3.4 g/dL 2.2-4.2 [facility] Serum or plasma alanine mays otransferase (ALT) measurementOrdered By: Cruz Arciniega on 09-07-2024 ALT [Catalytic activity/Vol] 50 U/L 16-61 [facility] Serum or plasma albumin marquise urement (mass/volume)Ordered By: Cruz Arciniega on 09-07-2024 Albumin [Mass/Vol] 2.6 g/dL Low 3.2-5.0 [facility] Serum or plasma alkaline daniel sphatase measurementOrdered By: Cruz Arciniega on 09-07-2024 ALP [Catalytic activity/Vol] 150 U/L High 45-117 [facility] Serum or plasma calcium marquise urement (mass/volume)Ordered By: Cruz Arciniega on 09-07-2024 Calcium [Mass/Vol] 9.4 mg/dL 8.5-10.1 [facility] Serum or plasma creatinine m easurement (mass/volume)Ordered By: Cruz Arciniega on 09-07-2024 Creatinine [Mass/Vol] 1.19 mg/dL 0.70-1.30 [facility] Comment on above: Moderate Icterus, Re sult may be falsely decreased.The validity of the calculated GFR & GFRAA in patients over 70 years has not been determined. Clinical correlation is essential. Serum or plasma urea nitroge n measurement (mass/volume)Ordered By: Cruz Arciniega on 09-07-2024 Urea nitrogen [Mass/Vol] 20 mg/dL High 7-18 [facility] Sodium levelOrdered By: Truman Arciniega on 09-07-2024 Sodium [Moles/Vol] 138 mmol/L 136-145 [facility] Total proteinOrdered By: Dionne Arciniega on 09-07-2024 Protein [Mass/Vol] 6.0 g/dL Low 6.4-8.2 [facility] Comment on above: Moderate Icterus, Re sult may be falsely decreased. Alpha fetoprotein measuremen t as tumor markerOrdered By: Denys Babin on 09-06-2024 Tumor Marker Alpha Fetoprotein 3.2 ng/mL 0.0-6.9 [facility] Comment on above: [facility] El [...] not interpretable in females. TESTING PERFORMED AT [facility]. ORIGINAL REPORT ON FILE IN LAB CONTAINS ADDITIONAL TEST SITE INFORMATION. Atypical perinuclear antineu trophil cytoplasmic antibodies measurementOrdered By: Denys Babin on 09-06-2024 Atypical p-ANCA <1:20 titer Neg:<1:20 [facility] Comment on above: Note: Specimen is ic teric.The atypical pANCA pattern has been observed in asignificant percentage of patients with ulcerative colitis,primary sclerosing cholangitis and autoimmune hepatitis. CA 19-9 agOrdered By: Andrade Babin on 09-06-2024 CA 19-9 Antigen 139 U/mL High 0-35 [facility] Comment on above: [facility] El ectrochemiluminescence Immunoassay(ECLIA)Values obtained with different assay methods or kits cannotbe used interchangeably. Results cannot be interpreted asabsolute evidence of the presence or absence of malignantdisease.Performed at: [facility] [employer] [id number] Director: Raj Dick PhD, Phone: [phone] CBC-Complete Blood Cnt No Di ffon 09-06-2024 Erythrocyte distribution width (RBC) [Ratio] 17.0 % High 11.6-14.6 [facility] Comment on above: Performed By: #### L 100.0500 ####[facility] [address] [place], [address] Hematocrit (Bld) [Volume fraction] 38.6 % Low 40-54 [facility] Comment on above: Performed By: #### L 100.0500 ####[facility] [address] [place], [address] Hemoglobin (Bld) [Mass/Vol] 13.2 g/dL Normal 13.0-16.5 [facility] Comment on above: Performed By: #### L 100.0500 ####[facility] [address] [place], [address] MCH (RBC) [Entitic mass] 30.3 pg Normal 27.0-32.0 [facility] Comment on above: Performed By: #### L 100.0500 ####[facility] [address] [place], [address] MCHC (RBC) [Mass/Vol] 34.2 g/dL Normal 32-36 [facility] Comment on above: Performed By: #### L 100.0500 ####[facility] [address] [place], [address] MCV (RBC) [Entitic vol] 88.7 fL Normal 80-94 [facility] Comment on above: Performed By: #### L 100.0500 ####[facility] [address] [place], [address] Platelet mean volume (Bld) [Entitic vol] 9.5 fL Normal 6.2-12.0 [facility] Comment on above: Performed By: #### L 100.0500 ####[facility] [address] [place], [address] Platelets (Bld) [#/Vol] 291 10*3/uL Normal 150-450 [facility] Comment on above: Performed By: #### L 100.0500 ####[facility] [address] [place], [address] RBC (Bld) [#/Vol] 4.35 10*6/uL Low 4.6-6.2 [facility] Comment on above: Performed By: #### L 100.0500 ####[facility] [address] [place], [address] RDW SD 54.9 fl High 35.1-43.9 [facility] Comment on above: Performed By: #### L 100.0500 ####[facility] [address] [place], [address] WBC (Bld) [#/Vol] 6.8 10*3/uL Normal 4.4-11.0 [facility] Comment on above: Performed By: #### L 100.0500 ####[facility] [address] [place], [address] Centromere B antibody assayO rdered By: Denys Babin on 09-06-2024 Centromere B Antibody <0.2 AI 0.0-0.9 [facility] Chromatin antibody assayOrde red By: Denys Babin on 09-06-2024 Antichromatin Antibodies <0.2 AI 0.0-0.9 [facility] Comprehensive Metabolic Prof ilon 09-06-2024 Albumin [Mass/Vol] 2.8 g/dL Low 3.2-5.0 [facility] Comment on above: Performed By: #### L 500.4050, L501.5200, L501.2300 ####[facility] [address] [place], [address] Albumin/Globulin [Mass ratio] 0.8 {ratio} Low 0.9-2.4 [facility] Comment on above: Performed By: #### L 500.4050, L501.5200, L501.2300 ####[facility] [address] [place], [address] ALK P 165 U/L High 45-117 [facility] Comment on above: Performed By: #### L 500.4050, L501.5200, L501.2300 ####[facility] [address] [place], [address] ALT [Catalytic activity/Vol] 63 U/L High 16-61 [facility] Comment on above: Performed By: #### L 500.4050, L501.5200, L501.2300 ####[facility] [address] [place], [address] AST [Catalytic activity/Vol] 58 U/L High 15-37 [facility] Comment on above: Performed By: #### L 500.4050, L501.5200, L501.2300 ####[facility] [address] [place], [address] Bilirubin [Mass/Vol] 20.10 mg/dL Invalid Interpretation Code 0.20-1.00 [facility] Comment on above: Result Comment: Crit ical Result(s) Called at: 08:20:54 09/06/2024 by: CRISTIANO to Diana Brewster. Results read back by same. For patients on eltrombopag therapy, use of Dimension [place] TBIL is not recommended. Performed By: #### L 500.4050, L501.5200, L501.2300 ####[facility] [address] [place], [address] BUN/CRE 11.9 RATIO Normal 10-20 [facility] Comment on above: Performed By: #### L 500.4050, L501.5200, L501.2300 ####[facility] [address] [place], [address] CA,Total 9.1 mg/dL Normal 8.5-10.1 [facility] Comment on above: Performed By: #### L 500.4050, L501.5200, L501.2300 ####[facility] [address] [place], [address] Chloride [Moles/Vol] 106 mmol/L Normal 98-107 [facility] Comment on above: Performed By: #### L 500.4050, L501.5200, L501.2300 ####[facility] [address] [place], [address] CO2 [Moles/Vol] 27.0 mmol/L Normal 21.0-32.0 [facility] Comment on above: Performed By: #### L 500.4050, L501.5200, L501.2300 ####[facility] [address] [place], [address] Creatinine [Mass/Vol] 1.18 mg/dL Normal 0.70-1.30 [facility] Comment on above: Result Comment: Mode rate Icterus, Result may be falsely decreased.The validity of the calculated GFR GFRAA in patients over70 years has not been determined. Clinical correlation isessential. Performed By: #### L 500.4050, L501.5200, L501.2300 ####[facility] [address] [place], [address] ECRCL 94.20 ml/min Normal [facility] Comment on above: Performed By: #### L 500.4050, L501.5200, L501.2300 ####[facility] [address] [place], [address] EST GFR - AA 88 mL/min Normal >60 [facility] Comment on above: Result Comment: Afri can Citizen Of [place] GFR Calc Performed By: #### L 500.4050, L501.5200, L501.2300 ####[facility] [address] [place], [address] GAP 6 Normal 5-15 [facility] Comment on above: Performed By: #### L 500.4050, L501.5200, L501.2300 ####[facility] [address] [place], [address] GFR/1.73 sq M.predicted among non-blacks MDRD (S/P/Bld) [Vol rate/Area] 72 mL/min/{1.73_m2} Normal >60 [facility] Comment on above: Result Comment: Non- GFR Calc Performed By: #### L 500.4050, L501.5200, L501.2300 ####[facility] [address] [place], [address] Globulin (S) [Mass/Vol] 3.3 g/dL Normal 2.2-4.2 [facility] Comment on above: Performed By: #### L 500.4050, L501.5200, L501.2300 ####[facility] [address] [place], [address] Glucose [Mass/Vol] 112 mg/dL High 74-106 [facility] Comment on above: Result Comment: Fast ing Glucose result from 100 to 125 mg/dLsuggests IMPAIRED HOMEOSTASIS per A.D.A. criteria. Performed By: #### L 500.4050, L501.5200, L501.2300 ####[facility] [address] [place], [address] Potassium [Moles/Vol] 4.1 mmol/L Normal 3.5-5.1 [facility] Comment on above: Performed By: #### L 500.4050, L501.5200, L501.2300 ####[facility] [address] [place], [address] Sodium [Moles/Vol] 140 mmol/L Normal 136-145 [facility] Comment on above: Performed By: #### L 500.4050, L501.5200, L501.2300 ####[facility] [address] [place], [address] T PROT 6.1 g/dL Low 6.4-8.2 [facility] Comment on above: Result Comment: Mode rate Icterus, Result may be falsely decreased. Performed By: #### L 500.4050, L501.5200, L501.2300 ####[facility] [address] [place], [address] Urea nitrogen [Mass/Vol] 14 mg/dL Normal 7-18 [facility] Comment on above: Performed By: #### L 500.4050, L501.5200, L501.2300 ####[facility] [address] [place], [address] DNA double strand Ab Qn (S)O rdered By: Denys Babin on 09-06-2024 Anti-Double Strand DNA Antibody <1 IU/mL 0-9 [facility] Comment on above: Negative <5 Equivoca l 5 - 9 Positive >9 Erythrocyte distribution wid th ratioOrdered By: Cruz Arciniega on 09-06-2024 Erythrocyte distribution width (RBC) [Ratio] 17.0 % High 11.6-14.6 [facility] Erythrocyte distribution wid th standard deviationOrdered By: Cruz Arciniega on 09-06-2024 Erythrocyte distribution width (RBC) [Entitic vol] 54.9 fL High 35.1-43.9 [facility] Hematocrit Auto (Bld) [Volum e fraction]Ordered By: Cruz Arciniega on 09-06-2024 Hematocrit (Bld) [Volume fraction] 38.6 % Low 40-54 [facility] Hemoglobin measurementOrdere d By: Cruz Arciniega on 09-06-2024 Hemoglobin (Bld) [Mass/Vol] 13.2 g/dL 13.0-16.5 [facility] IgA [Mass/Vol]Ordered By: Ra parrish Babin on 09-06-2024 Immunoglobulin A 140 mg/dL 90-386 [facility] IgEOrdered By: Denys love on 09-06-2024 Immunoglobulin E 40 IU/mL 6495 [facility] IgG [Mass/Vol]Ordered By: Ra parrish Babin on 09-06-2024 Immunoglobulin G See comment [facility] Comment on above: TEST RESULTS LIMITSI mmunoglobulins A/E/G/M, Serum Immunoglobulin E, Total 40 IU/mL 495 TESTING PERFORMED AT [facility]. ORIGINAL REPORT ON FILE IN LAB CONTAINS ADDITIONAL TEST SITE INFORMATION. Immunoglobulin G Total 888 mg/dL [phone] [facility] Comment on above: TEST RESULTS LIMITSI gG, Subclasses(1-4) IgG, Subclass 1 386 mg/dL 248-810 IgG, Subclass 2 276 mg/dL 130-555 IgG, Subclass 3 40 mg/dL 15-102 IgG, Subclass 4 89 mg/dL 2-96 TESTING PERFORMED AT [facility]. ORIGINAL REPORT ON FILE IN LAB CONTAINS ADDITIONAL TEST SITE INFORMATION. Previous reported result: mg/dLEdited by: MODESTA on 09/14/24:921 AMENDED REPORT 09/14/24921 IGG, QUANT previously reported as: TEST RESULTS LIMITSIgG, Subclasses(1-4) IgG, Subclass 1 386 mg/dL 248-810 IgG, Subclass 2 276 mg/dL 130-555 IgG, Subclass 3 40 mg/dL 15-102 IgG, Subclass 4 89 mg/dL 2-96 TESTING PERFORMED AT [facility]. ORIGINAL REPORT ON FILE IN LAB CONTAINS ADDITIONAL TEST SITE INFORMATION. IgG subclass 1 (S) [Mass/Vol ]Ordered By: Denys Babin on 09-06-2024 Immunoglobulin G1 386 mg/dL 248-810 [facility] IgG subclass 2 (S) [Mass/Vol ]Ordered By: Denys Babin on 09-06-2024 Immunoglobulin G2 276 mg/dL 130-555 [facility] IgG subclass 3 (S) [Mass/Vol ]Ordered By: Denys Babin on 09-06-2024 Immunoglobulin G3 40 mg/dL 15-102 [facility] Immunoglobulin G4 measuremen tOrdered By: Denys Babin on 09-06-2024 Immunoglobulin G4 89 mg/dL 2-96 [facility] Immunoglobulin M measurement Ordered By: Denys Babin on 09-06-2024 Immunoglobulin M 42 mg/dL 20-172 [facility] Tessa-1 antibody assayOrdered B y: Denys Babin on 09-06-2024 TESSA-1 Antibody <0.2 AI 0.0-0.9 [facility] MCV (mean corpuscular volume ) determinationOrdered By: Cruz Arciniega on 09-06-2024 MCV (RBC) [Entitic vol] 88.7 fL 80-94 [facility] MRCP Abdomen without Contras ton 09-06-2024 MRCP Abdomen without Contrast Normal [facility] Magnesiumon 09-06-2024 Magnesium [Mass/Vol] 2.1 mg/dL Normal 1.6-2.6 [facility] Comment on above: Performed By: #### L 500.4050, L501.5200, L501.2300 ####[facility] [address] [place], [address] Magnesium measurementOrdered By: Seht Stein on 09-06-2024 Magnesium [Mass/Vol] 2.1 mg/dL 1.6-2.6 [facility] Mean corpuscular hemoglobin (MCH) determinationOrdered By: Cruz Arciniega on 09-06-2024 MCH (RBC) [Entitic mass] 30.3 pg 27.0-32.0 [facility] Mean corpuscular hemoglobin concentration (MCHC) determinationOrdered By: Cruz Arciniega on 09-06-2024 MCHC (RBC) [Mass/Vol] 34.2 g/dL 32-36 [facility] Mean platelet volume determi nationOrdered By: Cruz Arciniega on 09-06-2024 Platelet mean volume (Bld) [Entitic vol] 9.5 fL 6.2-12.0 [facility] Neutrophil cytoplasmic Ab.cl assic Qn (S)Ordered By: Denys Babin on 09-06-2024 Cytoplasmic ANCA (c-ANCA) Antibody <1:20 titer Neg:<1:20 [facility] Comment on above: Note: Specimen is ic teric.Previous reported result: titerEdited by: MODESTA on 09/14/24:0922 AMENDED REPORT 09/14/24921 CYTOPLASMIC Ab previously reported [...] up testing of positive sera with both SD-3 and MPO-ANCA enzyme immunoassays. As many as [...] Perinuclear ANCA (p-ANCA) Antibody <1:20 titer Neg:<1:20 [facility] Comment on above: Note: Specimen is ic teric.The presence of positive fluorescence exhibiting P-ANCA orC-ANCA patterns alone is not specific for the diagnosis ofWegener's Granulomatosis (WG) or microscopic polyangiitis.Decisions about treatment should not be based solely onANCA IFA results. The [employer] ANCA Group Consensusrecommends follow up testing of positive sera with both SD-3 and MPO-ANCA enzyme immunoassays. As many as 5% serumsamples are positive only by EIA. Ref. AM J Clin [id number];111:507-513. Phosphoruson 09-06-2024 Phosphate [Mass/Vol] 3.2 mg/dL Normal 2.5-4.9 [facility] Comment on above: Performed By: #### L 500.4050, L501.5200, L501.2300 ####[facility] [address] [place], [address] Phosphorus measurementOrdere d By: Seth Stein on 09-06-2024 Phosphorus Level 3.2 mg/dL 2.5-4.9 [facility] Platelet countOrdered By: Zaire Arciniega on 09-06-2024 Platelets (Bld) [#/Vol] 291 10*3/uL 150-450 [facility] RBC Auto (Bld) [#/Vol]Ordere d By: Cruz Arciniega on 09-06-2024 RBC (Bld) [#/Vol] 4.35 10*6/uL Low 4.6-6.2 [facility] CERTIFIED BREASTFEEDING EDUCATOR abOrdered By: Denys Mercado iend on 09-06-2024 CERTIFIED BREASTFEEDING EDUCATOR Antibody <0.2 AI 0.0-0.9 [facility] SCL-70 extractable nuclear A b Qn (S)Ordered By: Denys Babin on 09-06-2024 Scl-70 (Scleroderma) Antibody <0.2 AI 0.0-0.9 [facility] SS-A IgG antibody assayOrder ed By: Denys Babin on 09-06-2024 SS-A/Ro IgG Antibody < 0.2 AI 0.0-0.9 [facility] SS-B IgG antibody assayOrder ed By: Denys Babin on 09-06-2024 SS-B/La IgG Antibody < 0.2 AI 0.0-0.9 [facility] Batista antibody assayOrdered By: Denys Babin on 09-06-2024 SM Antibody <0.2 AI 0.0-0.9 [facility] White blood cell (WBC) count Ordered By: Cruz Arciniega on 09-06-2024 WBC (Bld) [#/Vol] 6.8 10*3/uL 4.4-11.0 [facility] 12 Lead EKGon 09-05-2024 12 Lead EKG Normal [facility] Absolute neutrophil countOrd ered By: Denys Babin on 09-05-2024 Neutrophils (Bld) [#/Vol] 7.0 10*3/uL 2.0-7.7 [facility] Basophil percentageOrdered B y: Denys Babin on 09-05-2024 Basophils/100 WBC (Bld) 0.7 % 0-1 [facility] CBC W/Diff, Automatedon Absolute Lymph 0.63 X10 3/uL Low 0.83-4.51 [facility] Comment on above: Performed By: #### L 100.0100, L300.3900, L500.4050 ####[facility] [address] [place], [address] Absolute Neut 7.0 X10 3/uL Normal 2.0-7.7 [facility] Comment on above: Performed By: #### L 100.0100, L300.3900, L500.4050 ####[facility] [address] [place], [address] Basophils/100 WBC (Bld) 0.7 % Normal 0-1 [facility] Comment on above: Performed By: #### L 100.0100, L300.3900, L500.4050 ####[facility] [address] [place], [address] Eosinophils/100 WBC (Bld) 0.7 % Normal 0-5 [facility] Comment on above: Performed By: #### L 100.0100, L300.3900, L500.4050 ####[facility] [address] [place], [address] Erythrocyte distribution width (RBC) [Ratio] 16.8 % High 11.6-14.6 [facility] Comment on above: Performed By: #### L 100.0100, L300.3900, L500.4050 ####[facility] [address] [place], [address] Hematocrit (Bld) [Volume fraction] 39.7 % Low 40-54 [facility] Comment on above: Performed By: #### L 100.0100, L300.3900, L500.4050 ####[facility] [address] [place], [address] Hemoglobin (Bld) [Mass/Vol] 13.4 g/dL Normal 13.0-16.5 [facility] Comment on above: Performed By: #### L 100.0100, L300.3900, L500.4050 ####[facility] [address] [place], [address] IG% 0.700 Normal 0.0-0.9 [facility] Comment on above: Result Comment: IG% - Immature Granulocytes (promyelocytes, myelocytes andmetamyelocytes) > 1% indicates that a LEFT SHIFT is Present. Performed By: #### L 100.0100, L300.3900, L500.4050 ####[facility] [address] [place], [address] Lymphocytes/100 WBC (Bld) 7.6 % Low 19-41 [facility] Comment on above: Performed By: #### L 100.0100, L300.3900, L500.4050 ####[facility] [address] [place], [address] MCH (RBC) [Entitic mass] 30.0 pg Normal 27.0-32.0 [facility] Comment on above: Performed By: #### L 100.0100, L300.3900, L500.4050 ####[facility] [address] [place], [address] MCHC (RBC) [Mass/Vol] 33.8 g/dL Normal 32-36 [facility] Comment on above: Performed By: #### L 100.0100, L300.3900, L500.4050 ####[facility] [address] [place], [address] MCV (RBC) [Entitic vol] 89.0 fL Normal 80-94 [facility] Comment on above: Performed By: #### L 100.0100, L300.3900, L500.4050 ####[facility] [address] [place], [address] Monocytes/100 WBC (Bld) 5.9 % Normal 0-10 [facility] Comment on above: Performed By: #### L 100.0100, L300.3900, L500.4050 ####[facility] [address] [place], [address] Neutrophils/100 WBC (Bld) 84.4 % High 47-70 [facility] Comment on above: Performed By: #### L 100.0100, L300.3900, L500.4050 ####[facility] [address] [place], [address] Nucleated RBC (Bld) [#/Vol] 0 10*3/uL Normal 0-5 [facility] Comment on above: Performed By: #### L 100.0100, L300.3900, L500.4050 ####[facility] [address] [place], [address] Platelet mean volume (Bld) [Entitic vol] 9.5 fL Normal 6.2-12.0 [facility] Comment on above: Performed By: #### L 100.0100, L300.3900, L500.4050 ####[facility] [address] [place], [address] Platelets (Bld) [#/Vol] 322 10*3/uL Normal 150-450 [facility] Comment on above: Performed By: #### L 100.0100, L300.3900, L500.4050 ####[facility] [address] [place], [address] RBC (Bld) [#/Vol] 4.46 10*6/uL Low 4.6-6.2 [facility] Comment on above: Performed By: #### L 100.0100, L300.3900, L500.4050 ####[facility] [address] [place], [address] RDW SD 54.4 fl High 35.1-43.9 [facility] Comment on above: Performed By: #### L 100.0100, L300.3900, L500.4050 ####[facility] [address] [place], [address] WBC (Bld) [#/Vol] 8.3 10*3/uL Normal 4.4-11.0 [facility] Comment on above: Performed By: #### L 100.0100, L300.3900, L500.4050 ####[facility] [address] [place], [address] Absolute Lymph 0.94 X10 3/uL Normal 0.83-4.51 [facility] Comment on above: Performed By: #### L 501.5200, L500.4050, L501.2300, L100.0100 ####[facility] [address] [place], [address] Absolute Neut 2.0 X10 3/uL Normal 2.0-7.7 [facility] Comment on above: Performed By: #### L 501.5200, L500.4050, L501.2300, L100.0100 ####[facility] [address] [place], [address] Basophils/100 WBC (Bld) 1.4 % High 0-1 [facility] Comment on above: Performed By: #### L 501.5200, L500.4050, L501.2300, L100.0100 ####[facility] [address] [place], [address] Eosinophils/100 WBC (Bld) 3.3 % Normal 0-5 [facility] Comment on above: Performed By: #### L 501.5200, L500.4050, L501.2300, L100.0100 ####[facility] [address] [place], [address] Erythrocyte distribution width (RBC) [Ratio] 16.7 % High 11.6-14.6 [facility] Comment on above: Performed By: #### L 501.5200, L500.4050, L501.2300, L100.0100 ####[facility] [address] [place], [address] Hematocrit (Bld) [Volume fraction] 37.2 % Low 40-54 [facility] Comment on above: Performed By: #### L 501.5200, L500.4050, L501.2300, L100.0100 ####[facility] [address] [place], [address] Hemoglobin (Bld) [Mass/Vol] 12.3 g/dL Low 13.0-16.5 [facility] Comment on above: Performed By: #### L 501.5200, L500.4050, L501.2300, L100.0100 ####[facility] [address] [place], [address] IG% 1.400 High 0.0-0.9 [facility] Comment on above: Result Comment: IG% - Immature Granulocytes (promyelocytes, myelocytes andmetamyelocytes) > 1% indicates that a LEFT SHIFT is Present. Performed By: #### L 501.5200, L500.4050, L501.2300, L100.0100 ####[facility] [address] [place], [address] Lymphocytes/100 WBC (Bld) 25.8 % Normal 19-41 [facility] Comment on above: Performed By: #### L 501.5200, L500.4050, L501.2300, L100.0100 ####[facility] [address] [place], [address] MCH (RBC) [Entitic mass] 29.4 pg Normal 27.0-32.0 [facility] Comment on above: Performed By: #### L 501.5200, L500.4050, L501.2300, L100.0100 ####[facility] [address] [place], [address] MCHC (RBC) [Mass/Vol] 33.1 g/dL Normal 32-36 [facility] Comment on above: Performed By: #### L 501.5200, L500.4050, L501.2300, L100.0100 ####[facility] [address] [place], [address] MCV (RBC) [Entitic vol] 89.0 fL Normal 80-94 [facility] Comment on above: Performed By: #### L 501.5200, L500.4050, L501.2300, L100.0100 ####[facility] [address] [place], [address] Monocytes/100 WBC (Bld) 12.6 % High 0-10 [facility] Comment on above: Performed By: #### L 501.5200, L500.4050, L501.2300, L100.0100 ####[facility] [address] [place], [address] Neutrophils/100 WBC (Bld) 55.5 % Normal 47-70 [facility] Comment on above: Performed By: #### L 501.5200, L500.4050, L501.2300, L100.0100 ####[facility] [address] [place], [address] Nucleated RBC (Bld) [#/Vol] 0 10*3/uL Normal 0-5 [facility] Comment on above: Performed By: #### L 501.5200, L500.4050, L501.2300, L100.0100 ####[facility] [address] [place], [address] Platelet mean volume (Bld) [Entitic vol] 9.8 fL Normal 6.2-12.0 [facility] Comment on above: Performed By: #### L 501.5200, L500.4050, L501.2300, L100.0100 ####[facility] [address] [place], [address] Platelets (Bld) [#/Vol] 269 10*3/uL Normal 150-450 [facility] Comment on above: Performed By: #### L 501.5200, L500.4050, L501.2300, L100.0100 ####[facility] [address] [place], [address] RBC (Bld) [#/Vol] 4.18 10*6/uL Low 4.6-6.2 [facility] Comment on above: Performed By: #### L 501.5200, L500.4050, L501.2300, L100.0100 ####[facility] [address] [place], [address] RDW SD 54.4 fl High 35.1-43.9 [facility] Comment on above: Performed By: #### L 501.5200, L500.4050, L501.2300, L100.0100 ####[facility] [address] [place], [address] WBC (Bld) [#/Vol] 3.7 10*3/uL Low 4.4-11.0 [facility] Comment on above: Performed By: #### L 501.5200, L500.4050, L501.2300, L100.0100 ####[facility] [address] [place], [address] Comprehensive Metabolic [facility] ilon 09-05-2024 Albumin [Mass/Vol] 3.1 g/dL Low 3.2-5.0 [facility] Comment on above: Performed By: #### L 100.0100, L300.3900, L500.4050 ####[facility] [address] [place], [address] Albumin/Globulin [Mass ratio] 1.0 {ratio} Normal 0.9-2.4 [facility] Comment on above: Performed By: #### L 100.0100, L300.3900, L500.4050 ####[facility] [address] [place], [address] ALK P 183 U/L High 45-117 [facility] Comment on above: Performed By: #### L 100.0100, L300.3900, L500.4050 ####[facility] [address] [place], [address] ALT [Catalytic activity/Vol] 71 U/L High 16-61 [facility] Comment on above: Performed By: #### L 100.0100, L300.3900, L500.4050 ####[facility] [address] [place], [address] AST [Catalytic activity/Vol] 72 U/L High 15-37 [facility] Comment on above: Result Comment: Slig ht Hemolysis, Result may be falsely increased. Performed By: #### L 100.0100, L300.3900, L500.4050 ####[facility] [address] [place], [address] Bilirubin [Mass/Vol] 22.10 mg/dL Invalid Interpretation Code 0.20-1.00 [facility] Comment on above: Result Comment: Crit ical Result(s) Called at: 16:27:09 09/05/2024 by: VU BREWSTER. Results read back by same. For patients on eltrombopag therapy, use of Dimension [place] TBIL is not recommended. Performed By: #### L 100.0100, L300.3900, L500.4050 ####[facility] [address] [place], [address] BUN/CRE 8.8 RATIO Low 10-20 [facility] Comment on above: Performed By: #### L 100.0100, L300.3900, L500.4050 ####[facility] [address] [place], [address] CA,Total 9.3 mg/dL Normal 8.5-10.1 [facility] Comment on above: Performed By: #### L 100.0100, L300.3900, L500.4050 ####[facility] [address] [place], [address] Chloride [Moles/Vol] 107 mmol/L Normal 98-107 [facility] Comment on above: Performed By: #### L 100.0100, L300.3900, L500.4050 ####[facility] [address] [place], [address] CO2 [Moles/Vol] 24.0 mmol/L Normal 21.0-32.0 [facility] Comment on above: Performed By: #### L 100.0100, L300.3900, L500.4050 ####[facility] [address] [place], [address] Creatinine [Mass/Vol] 1.13 mg/dL Normal 0.70-1.30 [facility] Comment on above: Result Comment: Mode rate Icterus, Result may be falsely decreased.The validity of the calculated GFR GFRAA in patients over70 years has not been determined. Clinical correlation isessential. Performed By: #### L 100.0100, L300.3900, L500.4050 ####[facility] [address] [place], [address] ECRCL 98.71 ml/min Normal [facility] Comment on above: Performed By: #### L 100.0100, L300.3900, L500.4050 ####[facility] [address] [place], [address] EST GFR - AA 92 mL/min Normal >60 [facility] Comment on above: Result Comment: Afri can Citizen [place] GFR Calc Performed By: #### L 100.0100, L300.3900, L500.4050 ####[facility] [address] [place], [address] GAP 8 Normal 5-15 [facility] Comment on above: Performed By: #### L 100.0100, L300.3900, L500.4050 ####[facility] [address] [place], [address] GFR/1.73 sq M.predicted among non-blacks MDRD (S/P/Bld) [Vol rate/Area] 76 mL/min/{1.73_m2} Normal >60 [facility] Comment on above: Result Comment: Non- GFR Calc Performed By: #### L 100.0100, L300.3900, L500.4050 ####[facility] [address] [place], [address] Globulin (S) [Mass/Vol] 3.0 g/dL Normal 2.2-4.2 [facility] Comment on above: Performed By: #### L 100.0100, L300.3900, L500.4050 ####[facility] [address] [place], [address] Glucose [Mass/Vol] 104 mg/dL Normal 74-106 [facility] Comment on above: Result Comment: Fast ing Glucose result from 100 to 125 mg/dLsuggests IMPAIRED HOMEOSTASIS per A.D.A. criteria. Performed By: #### L 100.0100, L300.3900, L500.4050 ####[facility] [address] [place], [address] Potassium [Moles/Vol] 4.4 mmol/L Normal 3.5-5.1 [facility] Comment on above: Result Comment: Slig ht Hemolysis, Result may be falsely increased. Performed By: #### L 100.0100, L300.3900, L500.4050 ####[facility] [address] [place], [address] Sodium [Moles/Vol] 140 mmol/L Normal 136-145 [facility] Comment on above: Performed By: #### L 100.0100, L300.3900, L500.4050 ####[facility] [address] [place], [address] T PROT 6.1 g/dL Low 6.4-8.2 [facility] Comment on above: Result Comment: Mode rate Icterus, Result may be falsely decreased. Performed By: #### L 100.0100, L300.3900, L500.4050 ####[facility] [address] [place], [address] Urea nitrogen [Mass/Vol] 10 mg/dL Normal 7-18 [facility] Comment on above: Performed By: #### L 100.0100, L300.3900, L500.4050 ####[facility] [address] [place], [address] Albumin [Mass/Vol] 2.7 g/dL Low 3.2-5.0 [facility] Comment on above: Performed By: #### L 501.5200, L500.4050, L501.2300, L100.0100 ####[facility] [address] [place], [address] Albumin/Globulin [Mass ratio] 0.9 {ratio} Normal 0.9-2.4 [facility] Comment on above: Performed By: #### L 501.5200, L500.4050, L501.2300, L100.0100 ####[facility] [address] [place], [address] ALK P 153 U/L High 45-117 [facility] Comment on above: Performed By: #### L 501.5200, L500.4050, L501.2300, L100.0100 ####[facility] [address] [place], [address] ALT [Catalytic activity/Vol] 57 U/L Normal 16-61 [facility] Comment on above: Performed By: #### L 501.5200, L500.4050, L501.2300, L100.0100 ####[facility] [address] [place], [address] AST [Catalytic activity/Vol] 55 U/L High 15-37 [facility] Comment on above: Performed By: #### L 501.5200, L500.4050, L501.2300, L100.0100 ####[facility] [address] [place], [address] Bilirubin [Mass/Vol] 19.20 mg/dL Invalid Interpretation Code 0.20-1.00 [facility] Comment on above: Result Comment: Crit ical Result(s) Called at: 06:08:04 09/05/2024 by: CRISTIANO to Sadaf Kate. Results read back by same. For patients on eltrombopag therapy, use of Dimension [place] TBIL is not recommended. Performed By: #### L 501.5200, L500.4050, L501.2300, L100.0100 ####[facility] [address] [place], [address] BUN/CRE 9.8 RATIO Low 10-20 [facility] Comment on above: Performed By: #### L 501.5200, L500.4050, L501.2300, L100.0100 ####[facility] [address] [place], [address] CA,Total 9.0 mg/dL Normal 8.5-10.1 [facility] Comment on above: Performed By: #### L 501.5200, L500.4050, L501.2300, L100.0100 ####[facility] [address] [place], [address] Chloride [Moles/Vol] 107 mmol/L Normal 98-107 [facility] Comment on above: Performed By: #### L 501.5200, L500.4050, L501.2300, L100.0100 ####[facility] [address] [place], [address] CO2 [Moles/Vol] 25.0 mmol/L Normal 21.0-32.0 [facility] Comment on above: Performed By: #### L 501.5200, L500.4050, L501.2300, L100.0100 ####[facility] [address] [place], [address] Creatinine [Mass/Vol] 1.02 mg/dL Normal 0.70-1.30 [facility] Comment on above: Result Comment: Mode rate Icterus, Result may be falsely decreased.The validity of the calculated GFR GFRAA in patients over70 years has not been determined. Clinical correlation isessential. Performed By: #### L 501.5200, L500.4050, L501.2300, L100.0100 ####[facility] [address] [place], [address] ECRCL 109.35 ml/min Normal [facility] Comment on above: Performed By: #### L 501.5200, L500.4050, L501.2300, L100.0100 ####[facility] [address] [place], [address] EST GFR - AA 104 mL/min Normal >60 [facility] Comment on above: Result Comment: Afri can Citizen [place] GFR Calc Performed By: #### L 501.5200, L500.4050, L501.2300, L100.0100 ####[facility] [address] [place], [address] GAP 6 Normal 5-15 [facility] Comment on above: Performed By: #### L 501.5200, L500.4050, L501.2300, L100.0100 ####[facility] [address] [place], [address] GFR/1.73 sq M.predicted among non-blacks MDRD (S/P/Bld) [Vol rate/Area] 86 mL/min/{1.73_m2} Normal >60 [facility] Comment on above: Result Comment: Non- GFR Calc Performed By: #### L 501.5200, L500.4050, L501.2300, L100.0100 ####[facility] [address] [place], [address] Globulin (S) [Mass/Vol] 3.1 g/dL Normal 2.2-4.2 [facility] Comment on above: Performed By: #### L 501.5200, L500.4050, L501.2300, L100.0100 ####[facility] [address] [place], [address] Glucose [Mass/Vol] 93 mg/dL Normal 74-106 [facility] Comment on above: Performed By: #### L 501.5200, L500.4050, L501.2300, L100.0100 ####[facility] [address] [place], [address] Potassium [Moles/Vol] 3.7 mmol/L Normal 3.5-5.1 [facility] Comment on above: Performed By: #### L 501.5200, L500.4050, L501.2300, L100.0100 ####[facility] [address] [place], [address] Sodium [Moles/Vol] 138 mmol/L Normal 136-145 [facility] Comment on above: Performed By: #### L 501.5200, L500.4050, L501.2300, L100.0100 ####[facility] [address] [place], [address] T PROT 5.8 g/dL Low 6.4-8.2 [facility] Comment on above: Result Comment: Mode rate Icterus, Result may be falsely decreased. Performed By: #### L 501.5200, L500.4050, L501.2300, L100.0100 ####[facility] [address] [place], [address] Urea nitrogen [Mass/Vol] 10 mg/dL Normal 7-18 [facility] Comment on above: Performed By: #### L 501.5200, L500.4050, L501.2300, L100.0100 ####[facility] [address] [place], [address] ERCP Biliary/Pancreason 12-0 -2023 ERCP Biliary/Pancreas Normal [facility] Eosinophil percentageOrdered By: Denys Babin on 09-05-2024 Eosinophils/100 WBC (Bld) 0.7 % 0-5 [facility] High density lipoprotein (HD L) measurementOrdered By: Seth Stein on 09-05-2024 Cholesterol in HDL [Mass/Vol] 6 mg/dL Low >40 [facility] Comment on above: The drugs N-Acetylcy steine and Metamizole may falsely depress this assay. Reference Range HDL <40 mg/dL Low HDL Cholesterol HDL >or= 60 mg/dL High HDL Cholesterol Immature granulocytes/100 WB C Auto (Bld)Ordered By: Denys Babin on 09-05-2024 Immature granulocytes/100 WBC (Bld) 0.700 % 0.0-0.9 [facility] Comment on above: IG% - Immature Granu locytes (promyelocytes, myelocytes and metamyelocytes) > 1% indicates that a LEFT SHIFT is Present. International normalized rat io (INR) calculationOrdered By: Denys Babin on 09-05-2024 INR Coag (Bld) [Relative time] 0.9 {INR} [facility] LDHon 09-05-2024 LDH 133 U/L Normal 87-241 [facility] Comment on above: Performed By: #### L 3200.1100, L3300.0700, L3300.1200, L3200.0500, L504.2610 ####[facility] [address] [place], [address] Lactate dehydrogenase (LDH) measurementOrdered By: Denys Babin on 09-05-2024 LDH [Catalytic activity/Vol] 133 U/L 87-241 [facility] Lipid Profileon 09-05-2024 Cholesterol [Mass/Vol] 156 mg/dL Normal 200 [facility] Comment on above: Result Comment: Mode rate Icterus, Result may be falsely decreased. <200 mg/dL Desirable 200-240 mg/dL Borderline >240 mg/dL High Risk Performed By: #### L 500.4100 ####[facility] [address] [place], [address] Cholesterol in HDL [Mass/Vol] 6 mg/dL Low [facility] Comment on above: Result Comment: The drugs N-Acetylcysteine and Metamizole may falselydepress this assay. Reference Range HDL <40 mg/dL Low HDL Cholesterol HDL >or= 60 mg/dL High HDL Cholesterol Performed By: #### L 500.4100 ####[facility] [address] [place], [address] Cholesterol in LDL [Mass/Vol] 83 mg/dL Normal 0-130 [facility] Comment on above: Performed By: #### L 500.4100 ####[facility] [address] [place], [address] Cholesterol in VLDL [Mass/Vol] 67 mg/dL High 5-40 [facility] Comment on above: Performed By: #### L 500.4100 ####[facility] [address] [place], [address] Triglyceride [Mass/Vol] 333 mg/dL High [facility] Comment on above: Result Comment: The drugs N-Acetylcysteine and Metamizole may falselydepress this assay.Moderate Icterus, Result may be falsely increased.Serum Triglycerides Reference Interval Normal <150 mg/dL Borderline high 150 - 199 mg/dL High 200 - 499 mg/dL Very High > or = 500 mg/dL Performed By: #### L 500.4100 ####[facility] [address] [place], [address] Low density lipoprotein (LDL ) cholesterol measurementOrdered By: Seth Stein on 09-05-2024 Cholesterol in LDL [Mass/Vol] 83 mg/dL 0-130 [facility] Lymphocytes Auto (Unsp spec) [#/Vol]Ordered By: Denys Babin on 09-05-2024 Lymphocytes (Bld) [#/Vol] 0.63 10*3/uL Low 0.83-4.51 [facility] Lymphocytes/100 WBC Auto (Un sp spec)Ordered By: Denys Babin on 09-05-2024 Lymphocytes/100 WBC (Bld) 7.6 % Low 19-41 [facility] MR/POSTOP.ANEon 09-05-2024 MR/POSTOP.ANE Normal [facility] MR/YMAZOUWQ9qg 09-05-2024 MR/POSTOPAN2 Normal [facility] MR/POSTOPAN2 Normal [facility] Magnesiumon 09-05-2024 Magnesium [Mass/Vol] 2.2 mg/dL Normal 1.6-2.6 [facility] Comment on above: Performed By: #### L 501.5200, L500.4050, L501.2300, L100.0100 ####[facility] [address] [place], [address] Monocyte percentageOrdered B y: Denys Babin on 09-05-2024 Monocytes/100 WBC (Bld) 5.9 % 0-10 [facility] Neutrophil percentageOrdered By: Denys Babin on 09-05-2024 Neutrophils/100 WBC (Bld) 84.4 % High 47-70 [facility] Nucleated red blood cell per centageOrdered By: Denys Babin on 09-05-2024 Nucleated RBC/100 WBC (Bld) [Ratio] 0 % 0-5 [facility] Phosphoruson 09-05-2024 Phosphate [Mass/Vol] 3.8 mg/dL Normal 2.5-4.9 [facility] Comment on above: Performed By: #### L 501.5200, L500.4050, L501.2300, L100.0100 ####[facility] [address] [place], [address] Prothrombin Time w/INRon INR Coag (PPP) [Relative time] 0.9 {INR} Normal [facility] Comment on above: Performed By: #### L 100.0100, L300.3900, L500.4050 ####[facility] [address] [place], [address] PT Coag (PPP) [Time] 11.9 s Normal 11.7-14.9 [facility] Comment on above: Performed By: #### L 100.0100, L300.3900, L500.4050 ####[facility] [address] [place], [address] Prothrombin timeOrdered By: Denys Olaf on 09-05-2024 PT Coag (PPP) [Time] 11.9 s 11.7-14.9 [facility] Serum or plasma cholesterol measurement (mass/volume)Ordered By: Seth Stein on 09-05-2024 Cholesterol [Mass/Vol] 156 mg/dL <200 [facility] Comment on above: Moderate Icterus, Re sult may be falsely decreased. <200 mg/dL Desirable 200-240 mg/dL Borderline >240 mg/dL High Risk Triglycerides measurementOrd ered By: Seth Stein on 09-05-2024 Triglyceride [Mass/Vol] 333 mg/dL High <199 [facility] Comment on above: The drugs N-Acetylcy [...] 09-05-2024 VLDL Cholesterol 67 mg/dL High 5-40 [facility] Abdomen/Pelvis W IV Cont ONL Yon 2024 Abdomen/Pelvis W IV Cont ONLY Normal [facility] Bilirubin Test strip Ql (U)O rdered By: Rod Ross on 2024 Bilirubin Ql (U) Negative Negative [facility] Bilirubin directOrdered By: Ita Cueto on 2024 Bilirubin.direct [Mass/Vol] 20.11 mg/dL High 0.00-0.30 [facility] Comment on above: Critical Result(s) C alled at: 20:11:53 2024 by: JAX COOK. Results read back by Gertrude MIGUEL Bilirubin, Directon 09-04-20 24 Bilirubin.direct [Mass/Vol] 20.11 mg/dL High 0.00-0.30 [facility] Comment on above: Result Comment: Crit ical Result(s) Called at: 20:11:53 2024 by: STEPHAN. Results read back by Gertrude MIGUEL Performed By: #### L 501.4700 ####[facility] [address] [place], [address] CBC W/Diff, Automatedon -0 Absolute Lymph 1.03 X10 3/uL Normal 0.83-4.51 [facility] Comment on above: Performed By: #### L 500.4050, L100.0100 ####[facility] [address] [place], [address] Absolute Neut 3.5 X10 3/uL Normal 2.0-7.7 [facility] Comment on above: Performed By: #### L 500.4050, L100.0100 ####[facility] [address] [place], [address] Basophils/100 WBC (Bld) 1.1 % High 0-1 [facility] Comment on above: Performed By: #### L 500.4050, L100.0100 ####[facility] [address] [place], [address] Eosinophils/100 WBC (Bld) 2.9 % Normal 0-5 [facility] Comment on above: Performed By: #### L 500.4050, L100.0100 ####[facility] [address] [place], [address] Erythrocyte distribution width (RBC) [Ratio] 16.2 % High 11.6-14.6 [facility] Comment on above: Performed By: #### L 500.4050, L100.0100 ####[facility] [address] [place], [address] Hematocrit (Bld) [Volume fraction] 43.1 % Normal 40-54 [facility] Comment on above: Performed By: #### L 500.4050, L100.0100 ####[facility] [address] [place], [address] Hemoglobin (Bld) [Mass/Vol] 14.3 g/dL Normal 13.0-16.5 [facility] Comment on above: Performed By: #### L 500.4050, L100.0100 ####[facility] [address] [place], [address] IG% 1.600 High 0.0-0.9 [facility] Comment on above: Result Comment: IG% - Immature Granulocytes (promyelocytes, myelocytes andmetamyelocytes) > 1% indicates that a LEFT SHIFT is Present. Performed By: #### L 500.4050, L100.0100 ####[facility] [address] [place], [address] Lymphocytes/100 WBC (Bld) 18.8 % Low 19-41 [facility] Comment on above: Performed By: #### L 500.4050, L100.0100 ####[facility] [address] [place], [address] MCH (RBC) [Entitic mass] 30.0 pg Normal 27.0-32.0 [facility] Comment on above: Performed By: #### L 500.4050, L100.0100 ####[facility] [address] [place], [address] MCHC (RBC) [Mass/Vol] 33.2 g/dL Normal 32-36 [facility] Comment on above: Performed By: #### L 500.4050, L100.0100 ####[facility] [address] [place], [address] MCV (RBC) [Entitic vol] 90.4 fL Normal 80-94 [facility] Comment on above: Performed By: #### L 500.4050, L100.0100 ####[facility] [address] [place], [address] Monocytes/100 WBC (Bld) 12.4 % High 0-10 [facility] Comment on above: Performed By: #### L 500.4050, L100.0100 ####[facility] [address] [place], [address] Neutrophils/100 WBC (Bld) 63.2 % Normal 47-70 [facility] Comment on above: Performed By: #### L 500.4050, L100.0100 ####[facility] [address] [place], [address] Nucleated RBC (Bld) [#/Vol] 0 10*3/uL Normal 0-5 [facility] Comment on above: Performed By: #### L 500.4050, L100.0100 ####[facility] [address] [place], [address] Platelet mean volume (Bld) [Entitic vol] 9.5 fL Normal 6.2-12.0 [facility] Comment on above: Performed By: #### L 500.4050, L100.0100 ####[facility] [address] [place], [address] Platelets (Bld) [#/Vol] 325 10*3/uL Normal 150-450 [facility] Comment on above: Performed By: #### L 500.4050, L100.0100 ####[facility] [address] [place], [address] RBC (Bld) [#/Vol] 4.77 10*6/uL Normal 4.6-6.2 [facility] Comment on above: Performed By: #### L 500.4050, L100.0100 ####[facility] [address] [place], [address] RDW SD 54.2 fl High 35.1-43.9 [facility] Comment on above: Performed By: #### L 500.4050, L100.0100 ####[facility] [address] [place], [address] WBC (Bld) [#/Vol] 5.5 10*3/uL Normal 4.4-11.0 [facility] Comment on above: Performed By: #### L 500.4050, L100.0100 ####[facility] [address] [place], [address] Comprehensive Metabolic Prof ilon 2024 Albumin [Mass/Vol] 3.7 g/dL Normal 3.2-5.0 [facility] Comment on above: Performed By: #### L 500.4050, L100.0100 ####[facility] [address] [place], [address] Albumin/Globulin [Mass ratio] 0.9 {ratio} Normal 0.9-2.4 [facility] Comment on above: Performed By: #### L 500.4050, L100.0100 ####[facility] [address] [place], [address] ALK P 199 U/L High 45-117 [facility] Comment on above: Performed By: #### L 500.4050, L100.0100 ####[facility] [address] [place], [address] ALT [Catalytic activity/Vol] 78 U/L High 16-61 [facility] Comment on above: Performed By: #### L 500.4050, L100.0100 ####[facility] [address] [place], [address] AST [Catalytic activity/Vol] 68 U/L High 15-37 [facility] Comment on above: Performed By: #### L 500.4050, L100.0100 ####[facility] [address] [place], [address] Bilirubin [Mass/Vol] 23.90 mg/dL Invalid Interpretation Code 0.20-1.00 [facility] Comment on above: Result Comment: Crit ical Result(s) Called at: 19:05:27 2024 by: STEPHAN. Results read back by Vaishnavi For patients on eltrombopag therapy, use of Dimension [place] TBIL is not recommended. Performed By: #### L 500.4050, L100.0100 ####[facility] [address] [place], [address] BUN/CRE 11.5 RATIO Normal 10-20 [facility] Comment on above: Performed By: #### L 500.4050, L100.0100 ####[facility] [address] [place], [address] CA,Total 9.8 mg/dL Normal 8.5-10.1 [facility] Comment on above: Performed By: #### L 500.4050, L100.0100 ####[facility] [address] [place], [address] Chloride [Moles/Vol] 102 mmol/L Normal 98-107 [facility] Comment on above: Performed By: #### L 500.4050, L100.0100 ####[facility] [address] [place], [address] CO2 [Moles/Vol] 28.0 mmol/L Normal 21.0-32.0 [facility] Comment on above: Performed By: #### L 500.4050, L100.0100 ####[facility] [address] [place], [address] Creatinine [Mass/Vol] 1.13 mg/dL Normal 0.70-1.30 [facility] Comment on above: Result Comment: Mode rate Icterus, Result may be falsely decreased.The validity of the calculated GFR GFRAA in patients over70 years has not been determined. Clinical correlation isessential. Performed By: #### L 500.4050, L100.0100 ####[facility] [address] [place], [address] ECRCL 99.11 ml/min Normal [facility] Comment on above: Performed By: #### L 500.4050, L100.0100 ####[facility] [address] [place], [address] EST GFR - AA 92 mL/min Normal >60 [facility] Comment on above: Result Comment: Afri can Citizen [place] GFR Calc Performed By: #### L 500.4050, L100.0100 ####[facility] [address] [place], [address] GAP 8 Normal 5-15 [facility] Comment on above: Performed By: #### L 500.4050, L100.0100 ####[facility] [address] [place], [address] GFR/1.73 sq M.predicted among non-blacks MDRD (S/P/Bld) [Vol rate/Area] 76 mL/min/{1.73_m2} Normal >60 [facility] Comment on above: Result Comment: Non- GFR Calc Performed By: #### L 500.4050, L100.0100 ####[facility] [address] [place], [address] Globulin (S) [Mass/Vol] 3.9 g/dL Normal 2.2-4.2 [facility] Comment on above: Performed By: #### L 500.4050, L100.0100 ####[facility] [address] [place], [address] Glucose [Mass/Vol] 105 mg/dL Normal 74-106 [facility] Comment on above: Result Comment: Fast ing Glucose result from 100 to 125 mg/dLsuggests IMPAIRED HOMEOSTASIS per A.D.A. criteria. Performed By: #### L 500.4050, L100.0100 ####[facility] [address] [place], [address] Potassium [Moles/Vol] 3.9 mmol/L Normal 3.5-5.1 [facility] Comment on above: Performed By: #### L 500.4050, L100.0100 ####[facility] [address] [place], [address] Sodium [Moles/Vol] 138 mmol/L Normal 136-145 [facility] Comment on above: Performed By: #### L 500.4050, L100.0100 ####[facility] [address] [place], [address] T PROT 7.6 g/dL Normal 6.4-8.2 [facility] Comment on above: Result Comment: Mode rate Icterus, Result may be falsely decreased. Performed By: #### L 500.4050, L100.0100 ####[facility] [address] [place], [address] Urea nitrogen [Mass/Vol] 13 mg/dL Normal 7-18 [facility] Comment on above: Performed By: #### L 500.4050, L100.0100 ####[facility] [address] [place], [address] Emergency Department Summary on 2024 Emergency Department Summary Normal [facility] Epithelial cells.squamous LM Ql (Urine sed)Ordered By: Rod Ross on 2024 Epithelial cells.squamous LM.HPF (Urine sed) [#/Area] 0 /[HPF] 0-5 [facility] Gallbladderon 2024 Gallbladder Normal [facility] Glucose Ql (U)Ordered By: Chase Ross on 2024 Urine Glucose (UA) Normal mg/dl Normal [facility] H AND P Exam - Hospitaliston 2024 H&P Exam - Hospitalist Normal [facility] Hemoglobin A1con 2024 HbA1c (Bld) [Mass fraction] 4.8 % Normal 3.8-5.6 [facility] Comment on above: Result Comment: Norm al < 5.7 % Prediabetic 5.7 - 6.4 % Diabetic >or= 6.5 % Please note range changes. Performed By: #### L 501.9536, L501.9985 ####[facility] [address] [place], [address] Hemoglobin A1c percentageOrd ered By: Seth Stein on 2024 HbA1c (Bld) [Mass fraction] 4.8 % 3.8-5.6 [facility] Comment on above: Normal < 5.7 % Predi abetic 5.7 - 6.4 % Diabetic >or= 6.5 % Please note range changes. Ketones Test strip Ql (U)Ord ered By: Rod Ross on 2024 Ketones Ql (U) Negative Negative [facility] Lipaseon 2024 Lipase [Catalytic activity/Vol] 43 U/L Normal 13-75 [facility] Comment on above: Result Comment: Sully delaney note:LIPASE revised reference range effective 23.New Lipase methodology. Expected to produce lower valuesthan the previous assay method.NEW Reference Range: 13 - 75 U/L Performed By: #### L 501.2450 ####[facility] [address] [place], [address] Lipase measurementOrdered By : Ita Cueto on 2024 Lipase [Catalytic activity/Vol] 43 U/L 13-75 [facility] Comment on above: Please note:LIPASE r evised reference range effective 23. New Lipase methodology. Expected to produce lower values than the previous assay method. NEW Reference Range: 13 - 75 U/L Lipid Profileon 2024 HDL Normal [facility] Comment on above: Result Comment: DUPL ICATE,UNABLE TO UNRECIEVEThe drugs N-Acetylcysteine and Metamizole may falselydepress this assay. Performed By: #### L 500.4100 ####[facility] [address] [place], [address] TRIG Normal [facility] Comment on above: Result Comment: DUPL ICATE,UNABLE TO UNRECIEVEThe drugs N-Acetylcysteine and Metamizole may falselydepress this assay. Performed By: #### L 500.4100 ####[facility] [address] [place], [address] CHOL Normal 200 [facility] Comment on above: Result Comment: DUPL ICATE,UNABLE TO UNRECIEVE Performed By: #### L 500.4100 ####[facility] [address] [place], [address] LDL Normal 0-130 [facility] Comment on above: Result Comment: DUPL ICATE,UNABLE TO UNRECIEVE Performed By: #### L 500.4100 ####[facility] [address] [place], [address] VLDL Normal 5-40 [facility] Comment on above: Result Comment: DUPL ICATE,UNABLE TO UNRECIEVE Performed By: #### L 500.4100 ####[facility] [address] [place], [address] MR/CON.PCM.GIon 2024 MR/CON.PCM.GI Normal [facility] Microscopic analysis of urin e for red blood cells (RBC)Ordered By: Rod Ross on 2024 Urine RBC 0 SEEN /hpf 0-5 [facility] Mucus LM Ql (Urine sed)Order ed By: Rod Ross on 2024 Mucus Ql (Urine sed) 0 SEEN /hpf [facility] Nitrite Test strip Ql (U)Ord ered By: Rod Ross on 2024 Nitrite Ql (U) Negative Negative [facility] Protein Test strip Ql (U)Ord ered By: Rod Ross on 2024 Protein Ql (U) Negative Negative [facility] Prothrombin Time w/INRon INR Coag (PPP) [Relative time] 0.9 {INR} Normal [facility] Comment on above: Performed By: #### L 300.3900 ####[facility] [address] [place], [address] PT Coag (PPP) [Time] 11.9 s Normal 11.7-14.9 [facility] Comment on above: Performed By: #### L 300.3900 ####[facility] [address] [place], [address] TSH QnOrdered By: Seth earl on 2024 Thyroid Stimulating Hormone (TSH) 0.545 uIU/mL 0.358-3.740 [facility] Thyroid Stim Hormone (TSH)on 2024 TSH 0.545 uIU/mL Normal 0.358-3.740 [facility] Comment on above: Performed By: #### L 501.9520, L501.9985 ####[facility] [address] [place], [address] Urinalysis, Completeon 09-04 BACTERIA 1+ /hpf Normal None Seen [facility] Comment on above: Order Comment: MANOJ CTOR TO SPECIFY Performed By: #### L 400.0001 ####[facility] [address] [place], [address] BILIRUBIN URINE Negative Normal Negative [facility] Comment on above: Order Comment: MANOJ CTOR TO SPECIFY Performed By: #### L 400.0001 ####[facility] [address] [place], [address] Clarity (U) Clear Normal Clear [facility] Comment on above: Order Comment: MANOJ CTOR TO SPECIFY Performed By: #### L 400.0001 ####[facility] [address] [place], [address] Color (U) Yellow Normal Yellow [facility] Comment on above: Order Comment: MANOJ CTOR TO SPECIFY Performed By: #### L 400.0001 ####[facility] [address] [place], [address] GLUCOSE, UR Normal Normal Normal [facility] Comment on above: Order Comment: MANOJ CTOR TO SPECIFY Performed By: #### L 400.0001 ####[facility] [address] [place], [address] KETONE UR Negative Normal Negative [facility] Comment on above: Order Comment: COLLE CTOR TO SPECIFY Performed By: #### L 400.0001 ####[facility] [address] [place], [address] LEUK ESTERASE Negative Normal Negative [facility] Comment on above: Order Comment: COLLE CTOR TO SPECIFY Performed By: #### L 400.0001 ####[facility] [address] [place] [phone] Nitrite Ql (U) Negative Normal Negative [facility] Comment on above: Order Comment: COLLE CTOR TO SPECIFY Performed By: #### L 400.0001 ####[facility] [address] [place] [phone] OCCULT BLOOD-UR Negative Normal Negative [facility] Comment on above: Order Comment: MANOJ CTOR TO SPECIFY Performed By: #### L 400.0001 ####[facility] [address] [place] [address] pH UR 6.0 Normal 5.0 - 8.0 [facility] Comment on above: Order Comment: MANOJ CTOR TO SPECIFY Performed By: #### L 400.0001 ####[facility] [address] [place] [address] PROT DIPSTX Negative Normal Negative [facility] Comment on above: Order Comment: MANOJ CTOR TO SPECIFY Performed By: #### L 400.0001 ####[facility] [address] [place] [phone] SP.GR. DIPSTX 1.005 Normal 1.002-1.030 [facility] Comment on above: Order Comment: MANOJ CTOR TO SPECIFY Performed By: #### L 400.0001 ####[facility] [address] [place] [phone] UROBILI Normal Normal Normal [facility] Comment on above: Order Comment: MANOJ CTOR TO SPECIFY Performed By: #### L 400.0001 ####[facility] [address] [place], [address] EPI,SQUAMOUS 0 SEEN Normal 0-5 [facility] Comment on above: Order Comment: MANOJ CTOR TO SPECIFY Performed By: #### L 400.0001 ####[facility] [address] [place], [address] Mucus Ql (Urine sed) [address] [facility] Comment on above: Order Comment: MANOJ CTOR TO SPECIFY Performed By: #### L 400.0001 ####[facility] [address] [place], [address] RBC 0 SEEN Normal 0-5 [facility] Comment on above: Order Comment: MANOJ CTOR TO SPECIFY Performed By: #### L 400.0001 ####[facility] [address] [place], [address] WBC 0 SEEN Normal 0-5 [facility] Comment on above: Order Comment: MANOJ CTOR TO SPECIFY Performed By: #### L 400.0001 ####[facility] [address] [place], [address] Urine blood detectionOrdered By: Rod Ross on 2024 Urine Occult Blood Negative Negative [facility] Urine clarityOrdered By: Woo Ross on 2024 Clarity (U) Clear Clear [facility] Urine color determinationOrd ered By: Rod Ross on 2024 Color (U) Yellow Yellow [facility] Urine leukocyte esterase det ection by dipstickOrdered By: Rod Ross on 2024 Leukocyte esterase Test strip Ql (U) Negative Negative [facility] Urine pHOrdered By: Rod Ross on 2024 pH (U) 6.0 [pH] 5.0 - 8.0 [facility] Urine sediment bacteria coun t by microscopy (number/high power field)Ordered By: Rod Ross on 2024 Bacteria LM.HPF (Urine sed) [#/Area] 1 /[HPF] None Seen [facility] Urine specific gravity measu rementOrdered By: Rod Ross on 2024 Specific gravity (U) [Rel density] 1.005 1.002-1.030 [facility] Urobilinogen Ql (U)Ordered B y: Rod Ross on 2024 Urine Urobilinogen Normal mg/dl Normal [facility] White blood cell countOrdere d By: Rod Ross on 2024 Urine WBC 0 SEEN /hpf 0-5 [facility] US ABDOMEN LIMITEDon 024 US ABDOMEN LIMITED ORIGINAL EXAMINATION: LIMITED ABDOMINAL [id number]/13/2024 8:11 am Limited ultrasound of the abdomen [...] 08/12/2024 9:46:00 AM Ordering Provider: VANGIE Mack [facility] CT PELVIS W/O CONTRASTon CT PELVIS [...] 06/09/2024 12:42:25 PM Ordering Provider: CAYLA HOOPER [facility] US SCROTUM CONTENTSon 2023 US SCROTUM CONTENTS [...] 03/27/2024 3:12:22 PM Ordering Provider: SHIRA ARIAS [facility] ([place]) Vital Signs Date Time Vital Sign Value Performing Clinician Kotai emily 05-05-2025 14:00-0400 Body temperature 98.9 [degF] Shira Arias [employer] Work Phone: [facility] 05-05-2025 14:00-0400 Diastolic blood pressure 66 mm[Hg] Shira Arias [employer] Work Phone: [facility] 05-05-2025 14:00-0400 Heart rate 90 /min Shira Arias [employer] Work Phone: [facility] 05-05-2025 14:00-0400 Respiratory rate 18 /min Shira Arias [employer] Work Phone: [facility] 05-05-2025 14:00-0400 SaO2% (BldA) [Mass fraction] 96 % Shira Arias [employer] Work Phone: [facility] 05-05-2025 14:00-0400 Systolic blood pressure 94 mm[Hg] Shira Arias [employer] Work Phone: [facility] 05-04-2025 23:21-0400 Body height 177.8 cm Shira Arias [employer] Work Phone: [facility] 05-04-2025 23:21-0400 Body mass index (BMI) [Ratio] 29.8 kg/m2 Shira Arias [employer] Work Phone: [facility] 05-04-2025 23:21-0400 Body weight 94.3 kg Shira Arias [employer] Work Phone: [facility] 05-03-2025 13:45-0400 Body temperature 97.4 [degF] Shira Arias [employer] Work Phone: [facility] 05-03-2025 13:45-0400 Diastolic blood pressure 82 mm[Hg] Shira Arias [employer] Work Phone: [facility] 05-03-2025 13:45-0400 Heart rate 64 /min Shira Arias [employer] Work Phone: [facility] 05-03-2025 13:45-0400 Respiratory rate 16 /min Shira Arias [employer] Work Phone: [facility] 05-03-2025 13:45-0400 SaO2% (BldA) [Mass fraction] 96 % Shira Arias [employer] Work Phone: [facility] 05-03-2025 13:45-0400 Systolic blood pressure 97 mm[Hg] Shira Arias [employer] Work Phone: [facility] 05-03-2025 11:55-0400 Body height 177.8 cm Shira Arias [employer] Work Phone: [facility] 05-03-2025 11:55-0400 Body mass index (BMI) [Ratio] 30.2 kg/m2 Shira Arias [employer] Work Phone: [facility] 05-03-2025 11:55-0400 Body weight 95.7 kg Shira Lorson [employer] Work Phone: [facility] 03-18-2025 18:35-0400 Body temperature 98.9 [degF] Shira Cisnerosson [employer] Work Phone: [facility] 03-18-2025 18:35-0400 Diastolic blood pressure 90 mm[Hg] Shiramoises Arias [employer] Work Phone: [facility] 03-18-2025 18:35-0400 Heart rate 90 /min Shira Arias [employer] Work Phone: [facility] 03-18-2025 18:35-0400 Respiratory rate 18 /min Shira Arias [employer] Work Phone: [facility] 03-18-2025 18:35-0400 SaO2% (BldA) [Mass fraction] 98 % Shira Arias [employer] Work Phone: [facility] 03-18-2025 18:35-0400 Systolic blood pressure 123 mm[Hg] Shira Lorson [employer] Work Phone: [facility] 03-18-2025 18:34-0400 Body temperature 98.9 [degF] Shira Lorson [employer] Work Phone: [facility] 03-18-2025 18:34-0400 Diastolic blood pressure 90 mm[Hg] Shira Arias [employer] Work Phone: [facility] 03-18-2025 18:34-0400 Heart rate 95 /min Shira Arias [employer] Work Phone: [facility] 03-18-2025 18:34-0400 Inhaled oxygen flow rate 0 L/min Shira Arias [employer] Work Phone: [facility] 03-18-2025 18:34-0400 Respiratory rate 18 /min Shira Arias [employer] Work Phone: [facility] 03-18-2025 18:34-0400 SaO2% (BldA) [Mass fraction] 98 % Shira Arias [employer] Work Phone: [facility] 03-18-2025 18:34-0400 Systolic blood pressure 123 mm[Hg] Shira Arias [employer] Work Phone: [facility] 03-17-2025 19:52-0400 Body height 177.8 cm Shira Arias [employer] Work Phone: [facility] 03-17-2025 19:52-0400 Body mass index (BMI) [Ratio] 30.4 kg/m2 Shira Arias [employer] Work Phone: [facility] 03-17-2025 19:52-0400 Body weight 96.3 kg Shira Arias [employer] Work Phone: [facility] 12-31-2024 10:04-0400 Body height 177.8 cm Shira Arias [employer] Work Phone: [facility] 12-31-2024 10:04-0400 Body mass index (BMI) [Ratio] 29.3 kg/m2 Shira Arias [employer] Work Phone: [facility] 12-31-2024 10:04-0400 Body temperature 97.6 [degF] Shira Arias [employer] Work Phone: [facility] 12-31-2024 10:04-0400 Body weight 92.75 kg Shira Arias [employer] Work Phone: [facility] 12-31-2024 10:04-0400 Diastolic blood pressure 70 mm[Hg] Shira Arias [employer] Work Phone: [facility] 12-31-2024 10:04-0400 Heart rate 67 /min Shira Arias [employer] Work Phone: [facility] 12-31-2024 10:04-0400 Respiratory rate 18 /min Shira Arias [employer] Work Phone: [facility] 12-31-2024 10:04-0400 Systolic blood pressure 100 mm[Hg] Shira Arias [employer] Work Phone: [facility] 12-16-2024 14:17-0400 Body temperature 98.7 [degF] Shira Arias [employer] Work Phone: [facility] 12-16-2024 14:17-0400 Diastolic blood pressure 79 mm[Hg] Shira Arias [employer] Work Phone: [facility] 12-16-2024 14:17-0400 Heart rate 69 /min Shira Arias [employer] Work Phone: [facility] 12-16-2024 14:17-0400 Respiratory rate 16 /min Shira Arias [employer] Work Phone: [facility] 12-16-2024 14:17-0400 SaO2% (BldA) [Mass fraction] 96 % Shira Arias [employer] Work Phone: [facility] 12-16-2024 14:17-0400 Systolic blood pressure 113 mm[Hg] Shira Arias [employer] Work Phone: [facility] 12-15-2024 14:00-0400 Body height 178 cm Shira Arias [employer] Work Phone: [facility] 12-15-2024 14:00-0400 Body mass index (BMI) [Ratio] 29.3 kg/m2 Shira Arias [employer] Work Phone: [facility] 12-15-2024 14:00-0400 Body weight 93 kg Shira Arias [employer] Work Phone: [facility] 12-14-2024 15:52-0400 Body temperature 98.2 [degF] Shira Arias [employer] Work Phone: [facility] 12-14-2024 15:52-0400 Diastolic blood pressure 84 mm[Hg] Shira Arias [employer] Work Phone: [facility] 12-14-2024 15:52-0400 Heart rate 88 /min Shira Arias [employer] Work Phone: [facility] 12-14-2024 15:52-0400 Respiratory rate 17 /min Shira Arias [employer] Work Phone: [facility] 12-14-2024 15:52-0400 SaO2% (BldA) [Mass fraction] 94 % Shira Arias [employer] Work Phone: [facility] 12-14-2024 15:52-0400 Systolic blood pressure 138 mm[Hg] Shira Arias [employer] Work Phone: [facility] 12-14-2024 10:14-0400 Body height 177.8 cm Shira Arias [employer] Work Phone: [facility] 12-14-2024 10:14-0400 Body mass index (BMI) [Ratio] 29.4 kg/m2 Shira Arias [employer] Work Phone: [facility] 12-14-2024 10:14-0400 Body weight 92.98 kg Shira Arias [employer] Work Phone: [facility] 12-11-2024 14:30-0400 Body temperature 97.2 [degF] Shira Arias [employer] Work Phone: [facility] 12-11-2024 14:30-0400 Diastolic blood pressure 83 mm[Hg] Shira Arias [employer] Work Phone: [facility] 12-11-2024 14:30-0400 Heart rate 77 /min Shira Arias [employer] Work Phone: [facility] 12-11-2024 14:30-0400 Respiratory rate 16 /min Shira Arias [employer] Work Phone: [facility] 12-11-2024 14:30-0400 SaO2% (BldA) [Mass fraction] 93 % Shira Arias [employer] Work Phone: [facility] 12-11-2024 14:30-0400 Systolic blood pressure 100 mm[Hg] Shira Arias [employer] Work Phone: [facility] 12-11-2024 13:03-0400 Body height 177.8 cm Shira Arias [employer] Work Phone: [facility] 12-11-2024 13:03-0400 Body mass index (BMI) [Ratio] 29.7 kg/m2 Shira Arias [employer] Work Phone: [facility] 12-11-2024 13:03-0400 Body weight 93.8 kg Shira Arias [employer] Work Phone: [facility] 09-11-2024 08:02-0500 Body mass index (BMI) [Ratio] 29.1 kg/m2 Shira Arias [employer] Work Phone: [facility] 09-11-2024 08:02-0500 Body weight 92.07 kg Shira Arias [employer] Work Phone: [facility] 09-11-2024 08:02-0500 Diastolic blood pressure 84 mm[Hg] Shira Arias [employer] Work Phone: [facility] 09-11-2024 08:02-0500 Heart rate 72 /min Shira Arias [employer] Work Phone: [facility] 09-11-2024 08:02-0500 SaO2% (BldA) [Mass fraction] 98 % Shira Arias [employer] Work Phone: [facility] 09-11-2024 08:02-0500 Systolic blood pressure 123 mm[Hg] Shira Arias [employer] Work Phone: [facility] 09-07-2024 08:00-0500 Body temperature 97.7 [degF] Shira Arias [employer] Work Phone: [facility] 09-07-2024 08:00-0500 Diastolic blood pressure 72 mm[Hg] Shira Arias [employer] Work Phone: [facility] 09-07-2024 08:00-0500 Heart rate 70 /min Shira Arias [employer] Work Phone: [facility] 09-07-2024 08:00-0500 Respiratory rate 18 /min Shira rAias [employer] Work Phone: [facility] 09-07-2024 08:00-0500 SaO2% (BldA) [Mass fraction] 99 % Shira Arias [employer] Work Phone: [facility] 09-07-2024 08:00-0500 Systolic blood pressure 114 mm[Hg] Shira Arias [employer] Work Phone: [facility] 09-06-2024 06:00-0500 Body mass index (BMI) [Ratio] 29.2 kg/m2 Shira Arias [employer] Work Phone: [facility] 09-06-2024 06:00-0500 Body weight 92.6 kg Shira Arias [employer] Work Phone: [facility] Encounters Encounter Date Encounter Type Care Provider Facility Start: 05-05-2025 Evaluation and management of inpatient Dr. Eileen Brunson MD -Progressive Care Unit Work Phone: Start: 05-05-2025 Non-patient / Non-visit Dr. Eileen Brunson MD -[facility] Work Phone: Start: 05-03-2025 Non-patient / Non-visit Denys Babin DO -[facility] Start: 05-03-2025 End: 05-03-2025 Admission to same day surgery center Denys Babin DO -Endoscopy Work Phone: Start: 05-03-2025 End: 05-03-2025 ambulatory Shira Arias NP Facility:[facility] Start: 04-07-2025 End: 04-07-2025 Patient encounter procedure Bing Temple PA-C -[facility] Work Phone: Start: 04-07-2025 End: 04-07-2025 ambulatory Shira Arias NP-C Work Phone: -[facility] Start: 03-31-2025 End: 03-31-2025 Patient encounter procedure Bing Temple PA-C -[facility] Work Phone: Start: 03-31-2025 End: 03-31-2025 ambulatory Shira Arias [employer] Work Phone: -[facility] Start: 03-30-2025 End: 03-30-2025 ambulatory Shira Arias [employer] Work Phone: -[facility] Start: 03-30-2025 End: 03-30-2025 Patient encounter procedure Bing Temple PA-C -Nuclear Medicine [facility] Work Phone: Start: 03-30-2025 End: 03-30-2025 ambulatory Bing YOUNG Facility:[facility] Start: 03-25-2025 End: 03-25-2025 Patient encounter procedure Bing Temple PA-C -[facility] Work Phone: Start: 03-25-2025 End: 03-25-2025 ambulatory Shira Arias PARIMUTUEL TICKET CHECKER-C Work Phone: [facility] Work Phone: Start: 03-22-2025 ambulatory Shira Arias PARIMUTUEL TICKET CHECKER Facil ity:[facility] Start: 03-18-2025 Non-patient / Non-visit Dr. Camron Shoemaker MD -[facility] Start: 03-17-2025 ambulatory Shira Arias PARIMUTUEL TICKET CHECKER Facil ity:[facility] Start: 03-17-2025 End: 03-18-2025 Evaluation and management of inpatient Dr. Camron Shoemaker MD -Medical Surgical 3 Work Phone: Start: 03-17-2025 ambulatory Shira Arias PARIMUTUEL TICKET CHECKER Facil ity:[facility] Start: 03-17-2025 Non-patient / Non-visit Dr. Camron Shoemaker MD -[facility] Start: 03-08-2025 End: 03-08-2025 ambulatory Camron Redd Facility:[facility] Start: 03-08-2025 End: 03-08-2025 Non-patient / Non-visit Dr. Camron Redd MD -[facility] Work Phone: Start: 02-24-2025 End: 02-24-2025 ambulatory Shira Arias PARIMUTUEL TICKET CHECKER-C Work Phone: [facility] Work Phone: Start: 02-24-2025 End: 02-24-2025 Patient encounter procedure Michela Sal NP-C -Nuclear Medicine [facility] Work Phone: Start: 02-24-2025 End: 02-24-2025 ambulatory Shira Arias NP Facility:[facility] Start: 02-02-2025 ambulatory MICHELA ACUNA APRN-TRACK LAYING EQUIPMENT OPERATOR Facility:A Start: 01-05-2025 Registered Referred Michela roe PARIMUTUEL TICKET CHECKER-C -Laboratory Specimen Work Phone: Start: 01-05-2025 ambulatory Shira Arias NP Facil ity:[facility] Start: 12-31-2024 End: 12-31-2024 ambulatory Shira Arias PARIMUTUEL TICKET CHECKER-C Work Phone: [facility] Work Phone: Start: 12-31-2024 End: 12-31-2024 Patient encounter procedure Cayla Quiñonez NP-C -Laboratory Work Phone: Start: 12-31-2024 End: 12-31-2024 Patient encounter procedure Cayla Quiñonez NP-C -[facility] Work Phone: Start: 12-31-2024 End: 12-31-2024 ambulatory Shira Arias NP Facility:[facility] Start: 12-31-2024 End: 12-31-[address] Camron Shoemaker MD -[facility] Work Phone: Start: 12-31-2024 End: 12-31-2024 ambulatory Shira Arias NP Facility:[facility] Start: 12-31-2024 End: 12-31-2024 ambulatory Shira Arias NP Facility:[facility] Start: 12-16-2024 Non-patient / Non-visit Dr. Francesco Lui MD -[facility] Work Phone: Start: 12-16-2024 Non-patient / Non-visit Dr. Camron Shoemaker MD -[facility] Start: 12-15-2024 Non-patient / Non-visit Denys Babin DO [facility] Start: 12-15-2024 Non-patient / Non-visit Dr. Francesco Lui MD -[facility] Work Phone: Start: 12-14-2024 ambulatory Cruz Arciniega Fac ility:[facility] Start: 12-14-2024 End: 12-16-2024 Evaluation and management of inpatient Dr. Cruz Arciniega DO [facility] Work Phone: Start: 12-11-2024 End: 12-11-2024 Admission to same day surgery center Denysenrique Babin -Endoscopy Work Phone: Start: 12-11-2024 End: 12-11-2024 ambulatory Shira Arias PARIMUTUEL TICKET CHECKER-C Work Phone: [facility] Work Phone: Start: 12-11-2024 End: 12-11-2024 Non-patient / Non-visit Denys Babin [facility] Start: 09-11-2024 End: 09-11-[address] Francesco Lui MD -[facility] Work Phone: Start: 09-11-2024 End: 09-11-2024 ambulatory Shira Arias NP Facility:[facility] Start: 09-11-2024 End: 09-11-2024 ambulatory Francesco Lui Facility:[facility] Start: 09-07-2024 Non-patient / Non-visit Dr. Edwina Kimball DO -[facility] Work Phone: Start: 09-07-2024 Non-patient / Non-visit Denys Babin DO [facility] Start: 09-06-2024 Non-patient / Non-visit Dr. Cruz Arciniega DO [facility] Work Phone: Start: 09-05-2024 End: 09-05-2024 ambulatory Denys Babin Facility:[facility] Start: 09-05-2024 End: 09-05-2024 Non-patient / Non-visit Denys Babin DO -[facility] Start: 2024 Non-patient / Non-visit Denys Babin DO -[facility] Start: 2024 ambulatory Denys Babin Facility :[facility] Start: 2024 End: 09-07-2024 Evaluation and management of inpatient Dr. Edwina Kimball DO -Medical Surgical 3 Work Phone: Start: 08-12-2024 End: 08-12-2024 ambulatory SHIRA MADELEINEARSENIO SENIOR OFFICER-TRACK LAYING EQUIPMENT OPERATOR Facility:[facility] Start: 08-12-2024 End: 08-12-2024 Patient encounter procedure CAYLA HOOPER SENIOR OFFICER-TRACK LAYING EQUIPMENT OPERATOR [facility] Start: 08-06-2024 ambulatory VANGIE Morrell SENIOR OFFICER-TRACK LAYING EQUIPMENT OPERATOR Facility:[facility] Start: 06-11-2024 End: 06-11-2024 ambulatory CAYLA HOOPER SENIOR OFFICER-TRACK LAYING EQUIPMENT OPERATOR Facility:[facility] Start: 06-11-2024 End: 06-11-2024 Patient encounter procedure CAYLA HOOPER SENIOR OFFICER-TRACK LAYING EQUIPMENT OPERATOR [facility] Start: 06-09-2024 End: 06-09-2024 ambulatory CAYLA HOOPER SENIOR OFFICER-TRACK LAYING EQUIPMENT OPERATOR Facility:[facility] Start: 06-09-2024 End: 06-09-2024 Patient encounter procedure CAYLA HOOPER SENIOR OFFICER-TRACK LAYING EQUIPMENT OPERATOR [facility] Start: 05-27-2024 ambulatory CAYLA NELSON SENIOR OFFICER-TRACK LAYING EQUIPMENT OPERATOR Facility:[facility] Start: 05-14-2024 End: 05-14-2024 ambulatory CAYLA HOOPER SENIOR OFFICER-TRACK LAYING EQUIPMENT OPERATOR Facility:[facility] Start: 03-27-2024 End: 03-27-2024 ambulatory SHIRA ARIAS SENIOR OFFICER-TRACK LAYING EQUIPMENT OPERATOR Facility:[facility] Start: 03-27-2024 End: 03-27-2024 Patient encounter procedure SHIRA ARIAS SENIOR OFFICER-TRACK LAYING EQUIPMENT OPERATOR [facility] Procedures Date Procedure Procedure Detail Performing Clinician Start: 05-04-2025 Computed tomography of abdomen and pelvis with intravenous contrast Shiar Arias PARIMUTUEL TICKET CHECKER-C Work Phone: Start: 05-04-2025 Estimated creatinine clearance Shira russo PARIMUTUEL TICKET CHECKER-C Work Phone: Start: 05-03-2025 Fluoroscopic guidance Shira Cisnerosarsenio PARIMUTUEL TICKET CHECKER-C Work Phone: Start: 05-03-2025 End: 05-03-2025 Endoscopic retrograde cholangiopancreatography Shira Cisnerosarsenio PARIMUTUEL TICKET CHECKER-C Work Phone: Start: 03-30-2025 Radionuclide study of abdomen Shira lemons PARIMUTUEL TICKET CHECKER-C Work Phone: Start: 03-18-2025 Estimated creatinine clearance Shira russo PARIMUTUEL TICKET CHECKER-C Work Phone: Start: 03-17-2025 Total cholecystectomy and exploration of common bile duct Shira Arias PARIMUTUEL TICKET CHECKER-C Work Phone: Start: 02-24-2025 Radionuclide study of abdomen Shira Ho rson PARIMUTUEL TICKET CHECKER-C Work Phone: Start: 01-05-2025 Fibrinogen assay, quantitative Shira russo PARIMUTUEL TICKET CHECKER-C Work Phone: Start: 01-05-2025 Homocysteine measurement Shira Arias PARIMUTUEL TICKET CHECKER-C Work Phone: Comment on above: Performed at: [address] [id number] Director: Raj Dick PhD, Phone: [phone] Start: 12-16-2024 Estimated creatinine clearance Shira russo PARIMUTUEL TICKET CHECKER-C Work Phone: Start: 12-15-2024 End: 12-15-2024 Endoscopic retrograde cholangiopancreatography Shira Arias PARIMUTUEL TICKET CHECKER-C Work Phone: Start: 12-15-2024 Fluoroscopic guidance Shira Arias PARIMUTUEL TICKET CHECKER-C Work Phone: Start: 12-14-2024 Blood culture Shira Arias PARIMUTUEL TICKET CHECKER-C Work Phone: Start: 12-14-2024 SARS-CoV-2, Influenza & RSV (PCR) Shira Arias PARIMUTUEL TICKET CHECKER-C Work Phone: Start: 12-14-2024 Urnls dip stick/tablet reagent auto microscopy Shira Arias PARIMUTUEL TICKET CHECKER-C Work Phone: Start: 12-14-2024 X-ray of chest, PA and lateral views Shira Arias PARIMUTUEL TICKET CHECKER-C Work Phone: Start: 12-14-2024 Computed tomography of abdomen and pelvis with intravenous contrast Shira Arias PARIMUTUEL TICKET CHECKER-C Work Phone: Start: 12-11-2024 End: 12-11-2024 Endoscopic retrograde cholangiopancreatography Shira Arias PARIMUTUEL TICKET CHECKER-C Work Phone: Start: 12-11-2024 Fluoroscopic guidance Shira Arias PARIMUTUEL TICKET CHECKER-C Work Phone: Start: 09-06-2024 Magnetic resonance cholangiopancreatography Shira Arias PARIMUTUEL TICKET CHECKER-C Work Phone: Start: 09-05-2024 Endoscopic retrograde cholangiopancreatography Shira Arias PARIMUTUEL TICKET CHECKER-C Work Phone: Start: 09-05-2024 Fluoroscopic guidance Shira Arias PARIMUTUEL TICKET CHECKER-C Work Phone: Start: 09-05-2024 Endoscopic retrograde cholangiopancreatography Shira Arias PARIMUTUEL TICKET CHECKER-C Work Phone: Start: 2024 Computed tomography of abdomen and pelvis with intravenous contrast Shira Arias PARIMUTUEL TICKET CHECKER-C Work Phone: Start: 2024 US scan of gallbladder Shira Juana PARIMUTUEL TICKET CHECKER-C Work Phone: History of cholecystectomy Statu s post laparoscopic cholecystectomy Shira DUNHAMC Work Phone: History of cholecystectomy Statu s post laparoscopic cholecystectomy Dr. Camron Shoemaker MD History of cholecystectomy Statu s post laparoscopic cholecystectomy Bing Temple PA-C History of cholecystectomy Statu s post laparoscopic cholecystectomy Bing Temple PA-C History of cholecystectomy Statu s post laparoscopic cholecystectomy Bing Temple PA-C Plan of Treatment Date Care Activity Detail Author Start: 05-05-2025 Bacteria identified in Blood by Culture Blood Culture [facility] Start: 05-05-2025 Verification routine [facility] Start: 05-05-2025 Admission procedure [facility] Start: 05-05-2025 Hospital admission, emergency, from emergency room, medical nature [facility] Start: 05-04-2025 [facility] Start: 05-04-2025 Bacteria identified in Blood by Culture Blood Culture [facility] Start: 05-03-2025 Endoscopic retrograde cholangiopancreatography ERCP Biliary/Pancreas [facility] Start: 05-03-2025 RF Guidance for endoscopy of Biliary ducts and Pancreatic duct-- W contrast retrograde [facility] Start: 05-03-2025 Electrocardiographic procedure [facility] Start: 05-03-2025 Patient discharge [facility] Start: 03-18-2025 Patient discharge [facility] Start: 03-18-2025 [facility] Start: 03-17-2025 Application of intermittent pneumatic compression device [facility] Start: 03-17-2025 Following clinical pathway protocol [facility] Start: 03-17-2025 Application of ice collar, cap or bag [facility] Start: 03-17-2025 Measuring intake and output [facility] Start: 03-17-2025 Admission procedure [facility] Start: 12-16-2024 Patient discharge [facility] Start: 12-16-2024 Referral to general surgeon [facility] Start: 12-16-2024 Consultation [facility] Start: 12-16-2024 Gamma glutamyl transferase measurement [facility] Start: 12-15-2024 Following clinical pathway protocol [facility] Start: 12-15-2024 Complete blood count [facility] Start: 12-14-2024 Ambulation without limitation [facility] Start: 12-14-2024 Assessment of risk of venous thromboembolism [facility] Start: 12-14-2024 Incentive spirometry [facility] Start: 12-14-2024 Insertion of catheter into peripheral vein [facility] Start: 12-14-2024 Oxygen therapy [facility] Start: 12-14-2024 Providing care according to standard [facility] Start: 12-14-2024 Referral to gastroenterology service [facility] Start: 12-14-2024 [facility] Start: 12-14-2024 Verification routine [facility] Start: 12-14-2024 Admission procedure [facility] Start: 12-14-2024 Bacteria identified in Blood by Culture Blood Culture [facility] Start: 12-14-2024 Blood culture Blood Culture [facility] Start: 12-14-2024 [facility] Start: 12-11-2024 Ercp remove calculi/debris biliary/pancreas duct ERCP REMOVE DUCT CALCULI [facility] Start: 12-11-2024 Ercp remove foreign body/stent biliary/panc duct ERCP REMOVE FORGN BODY DUCT [facility] Start: 12-11-2024 Ercp w/sphincterotomy/papillotomy ENDO CHOLANGIOPANCREATOGRAPH [facility] Start: 12-11-2024 Patient discharge [facility] Start: 09-07-2024 Patient discharge [facility] Start: 09-07-2024 Catheterization of vein [facility] Start: 09-07-2024 Oxygen therapy [facility] Start: 09-07-2024 Vital signs measurements [facility] Start: 2024 Application of intermittent pneumatic compression device [facility] Start: 2024 Ambulation without limitation [facility] Start: 2024 Assessment of risk of venous thromboembolism [facility] Start: 2024 Documentation procedure [facility] Start: 2024 Insertion of catheter into peripheral vein [facility] Start: 2024 Measuring intake and output [facility] Start: 2024 Providing care according to standard [facility] Start: 2024 Referral to gastroenterology service [facility] Start: 2024 Referral to service [facility] Start: 2024 [facility] Start: 12-06-2024 Following clinical pathway protocol [facility] Start: 2024 Admission procedure [facility] Alanine aminotransfe rase [Enzymatic activity/volume] in Serum or Plasma [facility] Albumin [Mass/volume ] in Serum or Plasma [facility] Alkaline phosphatase [Enzymatic activity/volume] in Serum or Plasma [facility] Anion gap in Serum or Plasma [facility] Bilirubin, total measurement [facility] BUN/Creatinine ratio [facility] Calcium [Mass/volume ] in Serum or Plasma [facility] Carbon dioxide, tota l [Moles/volume] in Central venous blood [facility] Carcinoembryonic Ag [Mass/volume] in Serum or Plasma [facility] Creatinine [Mass/vol ume] in Serum or Plasma [facility] CT Abdomen and Pelvi s WO and W contrast IV [facility] Erythrocyte mean cor puscular volume determination [facility] Glucose [Mass/volume ] in Serum or Plasma [facility] Hematocrit [Volume F raction] of Blood [facility] Hemoglobin [Mass/vol ume] in Blood [facility] Hepatic function panel [facility] Leukocytes [#/volume] in Blood [facility] Mean corpuscular hem oglobin concentration determination [facility] Mean corpuscular hem oglobin determination [facility] Measurement of renal function [facility] Patient referral [facility] Work Phone: Platelets [#/volume] in Blood [facility] Potassium measurement [facility] Radionuclide study of abdomen [facility] Red blood cell count [facility] Red cell distributio n width determination [facility] Serum chloride measurement [facility] Sodium measurement [facility] Total protein measurement [facility] Urea nitrogen [Mass/ volume] in Serum or Plasma [facility] Payers Date Payer Category Payer Unknown [id number] 2024 Self-pay 1985 Unknown [id number] 2.16.8 40.1.967381.3.579.2.627 1985 Unknown [id number] 2.16.8 40.1.450229.3.579.2.627 1983 Unknown [id number] 2.16.8 40.1.321646.3.579.2.627 1983 Unknown [id number] 2.16.8 40.1.645006.3.579.2.627 1983 Unknown [id number] 2.16.8 40.1.893791.3.579.2.627 1983 Unknown [id number] 2.16.8 40.1.916623.3.579.2.627 1983 Unknown [id number] 2.16.8 40.1.203715.3.579.2.627 1983 Unknown [id number] 2.16.8 40.1.756660.3.579.2.627 1983 Unknown [id number] 2.16.8 40.1.901170.3.579.2.627 Unknown [id number] 2.16.8 40.1.961167.3.579.2.462 Unknown [id number] 2.16.8 40.1.056676.3.579.2.462 Unknown [id number] 2.16.8 40.1.146481.3.579.2.462 Unknown [id number] 2.16.8 40.1.470008.3.579.2.462 Unknown [id number] 2.16.8 40.1.182640.3.579.2.462 Unknown [id number] 2.16.8 40.1.502527.3.579.2.462 Unknown [id number] 2.16.8 40.1.976793.3.579.2.462 Unknown [id number] 2.16.8 40.1.187700.3.579.2.462 Unknown [id number] 2.16.8 40.1.201230.3.579.2.462 Unknown [id number] 2.16.8 40.1.434277.3.579.2.462 Unknown [id number] 2.16.8 40.1.505514.3.579.2.462 Unknown [id number] 2.16.8 40.1.756059.3.579.2.462 Unknown [id number] 2.16.8 40.1.163387.3.579.2.462 Unknown [id number] 2.16.8 40.1.183517.3.579.2.462 Unknown [id number] 2.16.8 40.1.513049.3.579.2.462 Unknown [id number] 2.16.8 40.1.526759.3.579.2.462 Unknown [id number] 2.16.8 40.1.561018.3.579.2.462 Unknown [id number] 2.16.8 40.1.456768.3.579.2.462 Unknown [id number] 2.16.8 40.1.265029.3.579.2.462 Unknown [id number] 2.16.8 40.1.570847.3.579.2.462 Unknown [id number] 2.16.8 40.1.721235.3.579.2.462 Unknown [id number] 2.16.8 40.1.758057.3.579.2.462 Unknown [id number] 2.16.8 40.1.697037.3.579.2.462 Unknown [id number] 2.16.8 40.1.644587.3.579.2.462 Unknown [id number] 2.16.8 40.1.602555.3.579.2.462 Unknown [id number] 2.16.8 40.1.165451.3.579.2.462 Unknown [id number] 2.16.8 40.1.017599.3.579.2.462 Unknown [id number] 2.16.8 40.1.419926.3.579.2.462 Unknown [id number] 2.16.8 40.1.326943.3.579.2.462 Unknown [id number] 2.16.8 40.1.748711.3.579.2.462 Unknown [id number] 2.16.8 40.1.734516.3.579.2.462 Unknown [id number] 2.16.8 40.1.233351.3.579.2.462 Unknown [id number] 2.16.8 40.1.314079.3.579.2.462 Unknown [id number] 2.16.8 40.1.198915.3.579.2.462 Unknown [id number] 2.16.8 40.1.204964.3.579.2.462 Unknown [id number] 2.16.8 40.1.475752.3.579.2.462 Social History Date Type Detail Facility Start: 01-29-2024 End: 05-05-2025 Tobacco smoking status Never smoked tobacco (finding) [facility] Start: 1985 Sex Assigned At Male A [facility] Start: 12-11-2024 End: 01-05-2025 Sex Male (finding) [facility] Medical Equipment Procedure Code Equipment Code Equipment Origin al Text Equipment Identifier Dates Total cholecystectomy with exploration of common bile duct MANAGER AREA,CLIP 5MM LIGAMAX FDA Start: 03-17-2025 Total cholecystectomy with exploration of common bile duct CLIP,HEMOLOCK MED WECK FDA Start: 03-17-2025 Total cholecystectomy with exploration of common bile duct CLIP,HEMOLOCK MED WECK FDA Start: 03-17-2025 Total cholecystectomy with exploration of common bile duct Plant polysaccharide haemostatic agent, bioabsorbable [id number] FDA Start: 03-17-2025 Total cholecystectomy with exploration of common bile duct MANAGER AREA,CLIP 5MM LIGAMAX FDA Start: 03-17-2025 Total cholecystectomy with exploration of common bile duct CLIP,HEMOLOCK MED WECK FDA Start: 03-17-2025 Total cholecystectomy with exploration of common bile duct CLIP,HEMOLOCK MED WECK FDA Start: 03-17-2025 Total cholecystectomy with exploration of common bile duct MANAGER AREA,CLIP 5MM LIGAMAX FDA Start: 03-17-2025 Total cholecystectomy with exploration of common bile duct CLIP,MARCUS LENNON FDA Start: 03-17-2025 Total cholecystectomy with exploration of common bile duct CLIP,MARCUS LENNON FDA Start: 03-17-2025 Total cholecystectomy with exploration of common bile duct MANAGER AREA,CLIP 5MM LIGAMAX FDA Start: 03-17-2025 Total cholecystectomy with exploration of common bile duct CLIP,MARCUS LENNON FDA Start: 03-17-2025 Total cholecystectomy with exploration of common bile duct CLIP,MARCUS LENNON FDA Start: 03-17-2025 Total cholecystectomy with exploration of common bile duct MANAGER AREA,CLIP 5MM LIGAMAX FDA Start: 03-17-2025 Total cholecystectomy with exploration of common bile duct CLIP,MARCUS LENNON FDA Start: 03-17-2025 Total cholecystectomy with exploration of common bile duct CLIP,MARCUS LENNON FDA Start: 03-17-2025 Total cholecystectomy with exploration of common bile duct MANAGER AREA,CLIP 5MM LIGAMAX FDA Start: 03-17-2025 Total cholecystectomy with exploration of common bile duct CLIP,MARCUS LENNON FDA Start: 03-17-2025 Total cholecystectomy with exploration of common bile duct CLIP,MARCUS LENNON FDA Start: 03-17-2025 Total cholecystectomy with exploration of common bile duct MANAGER AREA,CLIP 5MM LIGAMAX FDA Start: 03-17-2025 Total cholecystectomy with exploration of common bile duct CLIP,MARCUS LENNON FDA Start: 03-17-2025 Total cholecystectomy with exploration of common bile duct CLIP,MARCUS LENNON FDA Start: 03-17-2025 ERCP (endoscopic retrograde cholangiopancreatograp hy) Polymeric biliary stent, non-bioabsorbable ()[id number] FDA Start: 09-05-2024 ERCP (endoscopic retrograde cholangiopancreatograp hy) Polymeric biliary stent, non-bioabsorbable ()[id number] FDA Start: 09-05-2024 ERCP (endoscopic retrograde cholangiopancreatograp hy) ([id number]) Polymeric biliary stent, non-bioabsorbable [id number] FDA Start: 09-05-2024 ERCP (endoscopic retrograde cholangiopancreatograp [...] Result Facility 03-18-2025 Functional status Bathroom [facility] Work Phone: 12-16-2024 Functional status Ambulates [facility] Work Phone: 09-07-2024 Functional status Up ad jaimee [facility] Work Phone: Mental Status Date Assessment Result Facility 05-05-2025 Cognitive function Level Of Cons ciousness Awake;Alert;Appropriate;Follow s Commands [facility] Work Phone: 05-03-2025 Cognitive function Voice/Name [place] Work Phone: 03-18-2025 Cognitive function Voice/Name [place] Work Phone: 12-16-2024 Cognitive function Voice/Name [place] Work Phone: 12-14-2024 Cognitive function Level Of Cons ciousness Awake;Alert;Appropriate;Follow s Commands [facility] Work Phone: 12-11-2024 Cognitive function Touch/Shaking [facility] Work Phone: 09-07-2024 Cognitive function Voice/Name [place] Work Phone: Clinical Notes 01-29-2024 to 05-05-2025 Note Date & Type Note Facility 05-05-2025 History and physi margi note [facility] 05-05-2025 Radiology Diagnostic study note [facility] Imaging Services [address] [place], [place] [id number] Abdomen/Pelvis W IV Cont ONLY MR#: [id number] Acct: [id number] Name: DIANE CONNORS Rep #: [id number] : 1985 M 39 From: Linda Hunter MD PCP: AGUILAR Giles Status: REG E R Study:Abdomen/Pelvis W IV Cont ONLY Date of E xam: 05/04/25 Exam# [id number] Ordering Dr: Arabella Phillip DO PROCEDURE: ABDOMEN/PELVIS W IV CONT ONLY 05/05/2025 REASON FOR EXAM: ABD PAIN TECHNIQUE: ABDOMEN/PELVIS W IV CONT ONLY Coronal and Sagittal reconstruction series were provided. CONTRAST: Isovue 370 VOLUME: 99 mL One or more dose reduction techniques were used (e.g., Automated exposure control, adjustment of the mA and/or kV according to patient size, use of iterative reconstruction technique. RADIATION DOSE SUMMARY: CTDlvol: 26 mGy DLP: 866 mGycm COMPARISON: 12/14/2024 FINDINGS: Under aerated lung bases. Borderline cardiac enlargement. Gallbladder is abnormal. There is some wall enhancement and adjacent fat stranding. Gallbladder is irregularly-shaped and might be perforated. There is redemonstration of intrahepatic and extrahepatic biliary ductal dilatation, there are noncalcified common bile duct stones. There is also wall thickening and enhancement, with adjacent fat stranding, of the biliary tree, consistent with cholangitis. Unremarkable pancreas, spleen, adrenal glands,. No hydronephrosis. Normal bladder. Normal prostate. No retroperitoneal or pelvic adenopathy. No free air. Nonobstructed bowel. Normal appendix. No acute large bowel findings. Status post right-sided orchiectomy. No acute abdominal wall findings. CT/Abdomen/Pelvis W IV Cont ONLY IMPRESSION: Suspected cholecystitis possibly with gallbladder perforation. Dilated biliary tree, cholangitis, and choledocholithiasis. Follow up imaging as clinically determined. Reading Location: [place] [address] CC: AGUILAR Arias; DO Tanya Latham Client Support Consultant: Signed [facility] 05-03-2025 Consult note [facility] 05-03-2025 Consult note Note Date/Time May 03, 2025 11:43am [facility] Medical Records Department [address] [place] [address] Pre-Anesthesia Evaluation 05/03/25 1142 MR#: [id number] Acct: [id number] Name: DIANE CONNORS Rep #:[id number] : 1985 39 From: Rafael Hooper MD PCP: AGUILAR Giles Status:REG S DC Y Race: C Location: [place] [address] ASA Classification* ASA Classification ASA Classification: 2 [...] 06:27 03/18/25 RBC 5.04 M/mm3 (4.6-6.2) 03/18/25 06:27 03/18/25 Hgb 14.8 g/dL (13.0-16.5) 03/18/25 06:27 03/18/25 [...] stent pull. 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 Hx Hospitalization Yes: 08/2024 ERCP 04/27/25 15:02 [...] take am of surgery PONV PONV - timber grader: PONV - timber grader Female No 04/27/25 15:02 HX of Motion [...] 03/17/25 19:52 Respiratory Assessment Respiratory Assessment - timber grader: Respiratory Tract Infection Hx - timber grader Hx Respiratory Tract Infection No 04/27/25 15:02 STOP Sleep Apnea STOP Sleep Apnea - timber grader: STOP Sleep Apnea - timber grader Hx Hypertension No 04/27/25 15:02 Hx Sleep [...] Tobacco Use History Tobacco Use History - timber grader: Tobacco Use History - timber grader Tobacco Use Smoking Status Never smoker 04/27/25 15:02 Hx Tobacco Use No 04/27/25 15:02 Years Smoking Packs Smoked per Day Smoking Cessation Date was within the last 15 years Hx Smoking Cessation Date Hx Smoking Cessation Counseling Hematologic Medial History Hematologic Hx - timber grader: 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 Hx of Blood Transfusion Yes 04/27/25 15:02 [...] confused, unrespo /Reproduction History /Reproductive History - timber grader: /Reproductive Hx- timber grader Hx Now No 04/27/25 15:02 Gestational Age [...] Rafael Hooper MD > Date _ Rafael Weeman MD Cosigner Signature: Date CC: ~ Signed [facility] Work Phone: 1(177) 846-775608-04-2025 Consult note [facility] Medical Records Department [address] [place] [address] Anesthesia Postop Eval I 05/03/25 1341 MR#: [id number] Acct: [id number] Name: DIANE CONNORS Rep #:[id number] : 1985 39 From: Hipolito Rasheed PCP: AGUILAR Giles Status:REG S DC Y Race: C Location: [place] [address] Anesthesia: Postop Eval I Current Vital Signs [...] Hipolito Marrero Signature: Date CC: ~ Signed [facility]08-04-2025 Procedure note [facility] Medical Records Department [address] [place] [address] ERCP Report MR#: [id number] Acct: [id number] Name: DIANE CONNORS Rep #:[id number] : 1985 39 From: Denys Babin DO PCP: AGUILAR Gilse Status:REG S DC Patient Name: Diane Connors Procedure Date: 05/03/2025 12:46 PM Date of : 1985 Age: 39 Procedure: ERCP Indications: Biliary stent removal Providers: DO Juany Pierre MD: Shira Arias Medicines: Monitored Anesthesia Care [...] hours 12 minutes 36 seconds Findings: The mechanical applications engineer film was normal. A biliary stent was visible on the mechanical applications engineer film. The esophagus was successfully intubated under [...] 7 days. Procedure Code(s): --- Professional --- 29721, Endoscopic retrograde cholangiopancreatography (ERCP); with removal of foreign body(s) or stent(s) from biliary/pancreatic duct(s) 08378, Endoscopic retrograde cholangiopancreatography (ERCP); with removal of calculi/debris from biliary/pancreatic duct(s) 33623, Endoscopic retrograde cholangiopancreatography (ERCP); with sphincterotomy/papillotomy 86305, 26, Endoscopic catheterization of the biliary ductal system, radiological supervision and interpretation CPT copyright 2021 [employer] [place] [employer]. All rights reserved. The codes documented in this report are preliminary and upon spark plug tester review may be revised to meet current compliance requirements. Denys Babin DO 05/03/2025 1:35:07 PM This report has been signed electronically. Number of Addenda: 0 Note Initiated On: 05/03/2025 12:46 PM 05/03/25 1335 Date _ Denys Babin DO Cosigner Signature: Date (if indicated) CC: AGUILAR Arias; Denys Babin DO ~ Date Dictated: 05/03/25 1246 Date Transcribed: Client Support Consultant: RF Signed [facility]08-04-2025 Procedure note [facility] Medical Records Department [address] [place] [address] Provation Physician Letter MR#: [id number] Acct: [id number] Name: CONNORSDIANE Rep #:[id number] : 1985 39 From: Denys Babin DO [...] ~ Date Dictated: 05/03/25 1246 Date Transcribed: Client Support Consultant: ELDER Signed [facility]08-04-2025 History and physical note [facility] Medical Records Department [address] [place] [address] History & Physical Exam 05/03/25 1247 MR#: [id number] Acct: [id number] Name: DIANE CONONRS Rep #:[id number] : 1985 39 From: Denys Babin DO PCP: AGUILAR Giles Status:REG S DC Location: [place] [address] HPI - General General Date of Admission: 05/03/25 Date of Service: 05/03/25 Chief Complaint: Biliary stent removal HPI Narrative DIANE CONNORS, is a 39 M who presents today for ERCP with stent removal. Patient recently underwentERCP with stone removal and stent placement. Last month he underwent elective cholecystectomy. Patient is doing well after procedure. He comes back in for stent removal. [facility] Medical History Bacteremia due to Gram-negative bacteria [...] is a 39-year-old male who presented to [facility] ED on 12/14/2024 with fevers and [...] CC: AGUILAR Arias; Denys Friend, DO~ Signed [facility]08-04-2025 Consult note [facility] Medical Records Department [address] [place] [address] Pre-Anesthesia Evaluation 05/03/25 1142 MR#: [id number] Acct: [id number] Name: DIANE CONNORS Rep #:[id number] : 1985 39 From: Rafael Hooper MD PCP: AGUILAR Giles Status:REG S DC Y Race: C Location: [place] [address] ASA Classification* ASA Classification ASA Classification: 2 [...] 03/18/25 06:03/18/25 Hct 43.6 % (40-54) 03/18/25 06:27 03/18/25 [...] stent pull. 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 Hx Hospitalization Yes: 08/2024 ERCP 04/27/25 15:02 [...] take am of surgery PONV PONV - timber grader: PONV - timber grader Female No 04/27/25 15:02 HX of Motion [...] 03/17/25 19:52 Respiratory Assessment Respiratory Assessment - timber grader: Respiratory Tract Infection Hx - timber grader Hx Respiratory Tract Infection No 04/27/25 15:02 STOP Sleep Apnea STOP Sleep Apnea - timber grader: STOP Sleep Apnea - timber grader Hx Hypertension No 04/27/25 15:02 Hx Sleep [...] Tobacco Use History Tobacco Use History - timber grader: Tobacco Use History - timber grader Tobacco Use Smoking Status Never smoker 04/27/25 15:02 Hx Tobacco Use No 04/27/25 15:02 Years Smoking Packs Smoked per Day Smoking Cessation Date was within the last 15 years Hx Smoking Cessation Date Hx Smoking Cessation Counseling Hematologic Medial History Hematologic Hx - timber grader: 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 Hx of Blood Transfusion Yes 04/27/25 15:02 [...] confused, unrespo /Reproduction History /Reproductive History - timber grader: /Reproductive Hx- timber grader Hx Now No 04/27/25 15:02 Gestational Age [...] MD Cosigner Signature: Date CC: ~ Signed [facility]07-01-2025 Nuclear medicine Diagnostic study note [facility] Imaging Services [address] [place] [address] Hepatobilliary Imaging MR#: [id number] Acct: [id number] Name: DIANE CONNORS Rep #: [id number] : 1985 M 39 From: Nick Carter MD PCP: AGUILAR Giles Status: REG C MELANI Study:Hepatobilliary Imaging Date of Exam: 03/30/25 Exam# [id number] Ordering Dr: Bing Temple PA-C ADDENDUM by Dr. Seth Carter MD on 03/30/25 at 1558 No evidence biliary leak is seen. Reading Location: [place] [address] 03/30/25 1558 Date cc: AGUILAR Arias; SERGIO [...] Satisfactory hepatic uptake and excretion. Reading Location: [place] [address] CC: AGUILAR Arias; SERGIO Temple ~ Client Support Consultant: Signed [facility]06-26-2025 Progress [facility] [address] [place] [address]. [address] [place] [address] OFFICE VISIT Date of Service: 03/25/25 MR#: [id number] Acct: [id number] Name: DIANE CONNORS Rep #: [id number] : 1985 Provider: SERGIO Temple Age/Sex: 39/M Location: [facility] Status: Signed Intake Vital Signs 03/17/25 19:52 Height 5 ft 10 in Intake Visit Reasons: GALLBLADDER 6-18 JASON DRAIN REMOVAL Chief Complaint: Gallbladder 6/18. possible drain removal Is patient in pain?: [...] Op Diagnoses Status post laparoscopic cholecystectomy Z90.49 [facility] Medical History History of biliary stent insertion [...] AGUILAR Arias; Dr. Camron Shoemaker MD ~ [facility]06-26-2025 Progress note Author Bing Temple [facility] Services Note Date/Time March 25, 2025 1:49 pm [facility] [address] [place] [address] OFFICE VISIT Date of Service: 03/25/25 MR#: [id number] Acct: [id number] Name: DIANE CONNORS Rep #: [id number] : 1985 Provider: SERGIO Temple Age/Sex: 39/M Location: [facility] Status: Signed Intake Vital Signs 03/17/25 19:52 Height 5 ft 10 in Intake Visit Reasons: GALLBLADDER 6-18 JASON DRAIN REMOVAL Chief Complaint: Gallbladder 6/18. possible drain removal Is patient in pain?: [...] Op Diagnoses Status post laparoscopic cholecystectomy Z90.49 [facility] Medical History History of biliary stent insertion [...] signed by Bing YOUNG PA-C> Date _ iBng YOUNG PA-C Cosigner Signature: Date (if applicable) CC: AGUILAR Arias; Dr. Camron Shoemaker MD ~ [facility] [employer] Work Phone: 1(358) 753-237506-19-2025 Consult note [facility] Medical Records Department [address] [place] [address] Anesthesia Postop Eval II 03/17/25 1638 MR#: [id number] Acct: [id number] Name: DIANE CONNORS Rep #:[id number] : 1985 39 From: Dafne Sims LIVESTOCK TRUCKER PCP: AGUILAR Giles Status:REG S DC Y Race: C Location: [place] [address] Anesthesia Postop Eval I Sum Postop Eval Completion status Anesthesia document: Postop Eval 1 completed: Yes Anesthesia Postop Eval I Summary Anesthesia Postop Eval I Summary: Anesthesia Postop Eval I: Assessment Summary Airway patent Yes 03/17/25 16:38 LIVESTOCK TRUCKER.CSIR Spontaneous unlabored Yes 03/17/25 16:38 LIVESTOCK TRUCKER.CSIR respirations Mental status nausea No 03/17/25 16:38 LIVESTOCK TRUCKER.CSIR Vomiting No 03/17/25 16:38 LIVESTOCK TRUCKER.CSIR Anesthesia Postop Eval I: Fluid Summary Crystalloid volume administer 200 03/17/25 16:38 LIVESTOCK TRUCKER.CSIR (ml) Colloids volume administered ( ml) Blood Product volume administered (ml) Total IV fluid infused 200 03/17/25 16:38 LIVESTOCK TRUCKER.CSIR Anesthesia Postop Eval I: Summary Notes Anesthesia Complication No 03/17/25 16:38 LIVESTOCK TRUCKER.CSIR Anesthesia Complication Comment: Post-operative progress note Anesthesia: Postop Eval II Evaluation Mental status: Awake Pain Level: 1 nausea: No Vomiting: No 03/17/25 1638 a LIVESTOCK TRUCKER> Date _ Dafneabby Sims LIVESTOCK TRUCKER Cosigner Signature: Date CC: ~ Signed [facility]06-19-2025 Consult note [facility] Medical Records Department [address] [place] [address] Anesthesia Postop Eval I 03/17/251652 MR#: [id number] Acct: [id number] Name: DIANE CONNORS Rep #:[id number] : 1985 39 From: Abimael parra LIVESTOCK TRUCKER PCP: AGUILAR Giles Status:REG S DC Y Race: C Location: [place] [address] Anesthesia: Postop Eval I Current Vital Signs [...] Postop Eval 1 completed: Yes 03/17/251652 ero LIVESTOCK TRUCKER> Date _ Abimael Doll CRNA Cosigner Signature: Date CC: ~ Signed [facility]06-19-2025 Progress note [facility] Medical Records Department [address] [place] [address] Progress Note - Surgery 03/18/25 0700 MR#: [id number] Acct: [id number] Name: IDANE CONNROS Rep #:[id number] : 1985 39 From: Camron Love PCP: AGUILAR Giles Status:ADM I N Location: [place] [address] Subjective Subjective Patient seen and examined during [...] 74.4 H, Lymph % (Auto) 16.5 L, [place] % (Auto) 8.4, Eos % (Auto) 0.0, [...] Shoemaker MD General Surgery Endocrine Surgery Pager: [facility] [address] [place] [address], [address] [place] [address] Office: [phone] Charges/Coding Visit Charges Inpatient E&M: 65636 Subs Hosp L2 03/18/25 1722 Cosigner Signature (if applicable): CC: ~ Signed [facility]06-19-2025 Discharge summary [facility] Medical Records Department [address] [place] [address] Instructions for Home/Discharge Instructions 03/18/25 1155 MR#: [id number] Acct: [id number] Name: DIANE CONNORS Rep #:[id number] : 1985 39 From: Camron Love PCP: [...] Referrals / Follow Up: Shira Arias NP, [employer]ICKET CHECKER-C [Primary Care Provider] - Disposition Disposition (needs filled in before D/C Order can be placed): Home, Self Care 03/18/25 5500Micember Shoemaker MD CC: AGUILAR Arias; Dr. Gray López MD ~ Signed [facility]06-19-2025 Discharge summary Author Camron Shoemaker [facility] Note Date/Time March 18, 2025 5:[address] [facility] Medical Records Department [address] [place] [address] Instructions for Home/Discharge Instructions 03/18/25 1155 MR#: [id number] Acct: [id number] Name: DIANE CONNORS Rep #:[id number] : 1985 39 From: Camron Love PCP: [...] Referrals / Follow Up: Shira Arias NP, [employer]EL TICKET CHECKER-C [Primary Care Provider] - Disposition Disposition (needs filled in before D/C Order can be placed): Home, Self Care 03/18/25 1720<Electronically signed by Camron Shoemaker MD>Camron Shoemaker MD CC: AGUILAR Arias; Dr. Gray López MD ~ Signed [facility] Work Phone: [phone]) [phone] [facility]06-19-2025 Progress note Author Camron Shoemaker [facility] Note Date/Time March 18, 2025 5:22 pm [facility] Medical Records Department [address] [place] [address] Progress Note - Surgery 03/18/25 0700 MR#: [id number] Acct: [id number] Name: DIANE CONNORS Rep #:[id number] : 1985 39 From: Camron Love PCP: Shira Arias NP-C Status:ADM I N Location: [place] [address] Subjective Subjective Patient seen and examined during [...] 74.4 H, Lymph % (Auto) 16.5 L, [place] % (Auto) 8.4, Eos % (Auto) 0.0, [...] Shoemaker MD General Surgery Endocrine Surgery Pager: [facility] [address] [place] [address], [address] [place] [address] Office: [phone] Charges/Coding Visit Charges Inpatient E&M: 65759 Subs Hosp L2 03/18/25 1722 <Electronically signed by Camron Shoemaker MD> Cosigner Signature (if applicable): CC: ~ Signed [facility] Work Phone: 1(930) 216-192706-18-2025 Consult note Author Abimael Doll [facility] Note Date/Time March 18, 2025 6:36 pm [facility] Medical Records Department [address] [place] [address] Anesthesia Postop Eval I 03/17/25 1653 MR#: [id number] Acct: [id number] Name: DIANE CONNORS Rep #:[id number] : 1985 39 From: Abimael parra CRNA PCP: Shira Arias NP-Marli Status:REG S DC Y Race: C Location: [place] [address] Anesthesia: Postop Eval I Current Vital Signs [...] 03/17/25 1653 <Electronically signed by Abimael hines LIVESTOCK TRUCKER> Date _ Abimael Doll LIVESTOCK TRUCKER Cosigner Signature: Date CC: ~ Signed [facility] Work Phone: 1(734) 247-645106-18-2025 Consult note Author Dafne [facility] Note Date/Time March 17, 2025 4:38 pm [facility] Medical Records Department [address] [place] [address] Anesthesia Postop Eval I 03/17/25 1607 MR#: [id number] Acct: [id number] Name: DIANE CONNORS Rep #:[id number] : 1985 39 From: Dafne Sims CRNA PCP: AGUILAR Giles Status:REG S DC Y Race: C Location: [place] [address] Anesthesia: Postop Eval I Current Vital Signs [...] 03/17/25 1638 <Electronically signed by Dafne norwood LIVESTOCK TRUCKER> Date _ Dafne Sims CRNA Cosigner Signature: Date CC: ~ Signed [facility] Work Phone: 1(289) 304-728006-18-2025 Consult note Author Dafne Sims [facility] Note Date/Time March 18, 2025 6:36 pm [facility] Medical Records Department [address] [place] [address] Anesthesia Postop Eval II 03/17/25 1638 MR#: [id number] Acct: [id number] Name: DIANE CONNORS Rep #:[id number] : 1985 39 From: Dafne Sims CRNA PCP: AGUILAR Giles Status:REG S DC Y Race: C Location: [place] [address] Anesthesia Postop Eval I Sum Postop Eval Completion status Anesthesia document: Postop Eval 1 completed: Yes Anesthesia Postop Eval I Summary Anesthesia Postop Eval I Summary: Anesthesia Postop Eval I: Assessment Summary Airway patent Yes 03/17/25 16:38 LIVESTOCK TRUCKER.CSIR Spontaneous unlabored Yes 03/17/25 16:38 LIVESTOCK TRUCKER.CSIR respirations Mental status nausea No 03/17/25 16:38 LIVESTOCK TRUCKER.CSIR Vomiting No 03/17/25 16:38 LIVESTOCK TRUCKER.CSIR Anesthesia Postop Eval I: Fluid Summary Crystalloid volume administer 200 03/17/25 16:38 LIVESTOCK TRUCKER.CSIR (ml) Colloids volume administered ( ml) Blood Product volume administered (ml) Total IV fluid infused 200 03/17/25 16:38 LIVESTOCK TRUCKER.CSIR Anesthesia Postop Eval I: Summary Notes Anesthesia Complication No 03/17/25 16:38 LIVESTOCK TRUCKER.CSIR Anesthesia Complication Comment: Post-operative progress note Anesthesia: Postop Eval II Evaluation Mental status: Awake Pain Level: 1 nausea: No Vomiting: No 03/17/25 1638 <Electronically signed by Dafne norwood LIVESTOCK TRUCKER> Date _ Dafne Sims LIVESTOCK TRUCKER Cosigner Signature: Date CC: ~ Signed [facility] Work Phone: 1(942) 492-468706-18-2025 Evaluation note* Diagnosis Onset Date Resolution Status [...] 11:31am Hyperbilirubinemia inactive May 03, 2025 11:31am [facility] Work Phone: 1(603) 849-864306-18-2025 Evaluation note* Diagnosis Onset Date Resolution Status Admit Date Status post laparoscopic cholecystectomy acute March 17, 2025 3:40pm Status post laparoscopic cholecystectomy acute March 25, 2025 1:05pm Cholecystitis acute March 31, 2 025 1:58pm Status post laparoscopic cholecystectomy acute March 31, 2025 1:58pm Status post laparoscopic cholecystectomy acute April 07, 2025 2:29pm Elevation of levels of liver transaminase levels inactive May 03, 2025 11:31am Hyperbilirubinemia inactive May 03, 2025 11:31am Choledocholithiasis with acu te cholecystitis acute May 05, 2025 2:14am [facility] Work Phone: [phone] Consult note [facility] Medical Records Department [address] [place] [address] Anesthesia Postop Eval I 03/17/25 1607 MR#: [id number] Acct: [id number] Name: DIANE CONNORS Enma Rep #:[id number] : 1985 39 From: Dafne Sims LIVESTOCK TRUCKER PCP: RLOY GilesC Status:REG S DC Y Race: C Location: [place] [address] Anesthesia: Postop Eval I Current Vital Signs Temperature: 97.2 F Pulse Rate: 77 Blood Pressure: 154/100 Respiratory Rate: 16 Pulse Ox: 98 Assessment Airway patent: Yes Spontaneous unlabored respirations: Yes nausea: No Vomiting: No Anesthesia Complication: No Fluid Hydration Crystalloid volume administer (ml): 200 Total IV fluid infused: 200 Progress Note Anesthesia document: Postop Eval 1 completed: Yes 03/17/25 1638 a LIVESTOCK TRUCKER> Date _ Dafne Sirca LIVESTOCK TRUCKER Cosigner Signature: Date CC: ~ Signed [facility]06-18-2025 History and physical note Author Camron Shoemaker [facility] Note Date/Time March 17, 2025 11:4 8am [facility] Medical Records Department [address] [place] [address] History & Physical Exam 03/17/25 1147 MR#: [id number] Acct: [id number] Name: DIANE CONNORS Rep #:[id number] : 1985 39 From: Camron Love PCP: AGUILAR Giles Status:REG S DC Location: [place] [address] History and Physical Date of Admission: 03/17/25 Date of Service: 12/31/24 MR#: [id number] Acct: [id number] Name: DIANE CONNORS Rep #: [id number] : 1985 Provider: Dr. Camron Shoemaker MD Age/Sex: 39/M Location: [facility] Status: Signed Intake Vital Signs 12/15/2513:00 12/31/2509:04 Height 5 ft 10.08 in 5 ft 10 in Weight: 204 lb 8 oz BMI 29.3 BP 100/70 Blood Pressure Location Rt brachial Position Sitting Respiration 18 Pulse 67 Pulse Source Monitor Temp 97.6 F L Temp Source Temporal Oxygen Delivery Method room air Intake Visit Reasons: GALLBLADDER, [facility] FU Chief Complaint: Gallbladder ERCP 12/15/24 Photograph Editor Required: No Accompanied by: Unknown Is patient [...] for recurrence. Given patient's personal experience this tinxc-sic-mhhvab appears clear to them. 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 Camron Shoemaker MD~ Signed [facility] Work Phone: 1(341) 918-867506-18-2025 Consult note Author Kilo Mtz [facility] Note Date/Time March 17, 2025 11:1 5am [facility] Medical Records Department [address] [place] [address] Pre-Anesthesia Evaluation 03/17/25 1110 MR#: [id number] Acct: [id number] Name: DIANE CONNORS Rep #:[id number] : 1985 39 From: Kilo Mtz MD PCP: AGUILAR Giles Status:REG S DC Y Race: C Location: [place] [address] ASA Classification* ASA Classification ASA Classification: 2 [...] LIVER BIOPSY 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 - timber grader: PONV - timber grader Female No 03/03/25 10:05 HX of Motion [...] 03/17/25 10:57 Respiratory Assessment Respiratory Assessment - timber grader: Respiratory Tract Infection Hx - timber grader Hx Respiratory Tract Infection No 03/03/25 10:05 STOP Sleep Apnea STOP Sleep Apnea - timber grader: STOP Sleep Apnea - timber grader Hx Hypertension No 03/03/25 10:05 Hx Sleep [...] Tobacco Use History Tobacco Use History - timber grader: Tobacco Use History - timber grader Tobacco Use Smoking Status Never smoker 03/03/25 10:05 Hx Tobacco Use No 03/03/25 10:05 Years Smoking Packs Smoked per Day Smoking Cessation Date was within the last 15 years Hx Smoking Cessation Date Hx Smoking Cessation Counseling Hematologic Medial History Hematologic Hx - timber grader: 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 03/17/25 9686 <Electronically signed by Kilo russell MD> Date _ Kilo Mtz MD Cosigner Signature: Date CC: ~ Signed [facility] Work Phone: 1(957) 552-105906-18-2025 History and physical note [facility] Medical Records Department [address] [place] [address] History & Physical Exam 03/17/25 1147 MR#: [id number] Acct: [id number] Name: CONNORSKENNEYDIANE A Rep #:[id number] : 1985 39 From: Camron Love PCP: AGUILAR Giles Status:REG S DC Location: [place] [address] History and Physical Date of Admission: 03/17/25 Date of Service: 12/31/24 MR#: [id number] Acct: [id number] Name: DIANE CONNORS Rep #: [id number] : 1985 Provider: Dr. Camron Shoemaker MD Age/Sex: 39/M Location: [facility] Status: Signed Intake Vital Signs 12/15/2513:00 12/31/2509:04 Height 5 ft 10.08 in 5 ft 10 in Weight: 204 lb 8 oz BMI 29.3 BP 100/70 Blood Pressure Location Rt brachial Position Sitting Respiration 18 Pulse 67 Pulse Source Monitor Temp 97.6 F L Temp Source Temporal Oxygen Delivery Method room air Intake Visit Reasons: GALLBLADDER, [facility] FU Chief Complaint: Gallbladder ERCP 12/15/24 Photograph Editor Required: No Accompanied by: Unknown Is patient in pain?: No Allergies No Known Allergies Allergy (Verified 12/31/24 11:28) Medications ?Medication ?Instructions ?Recorded ?Confirmed ?Type NK 12/31/24 12/31/24 History Have you fallen in the past year?: No [facility] History Overweight (BMI 25.0-29.9) No [...] for recurrence. Given patient's personal experience this vtqyk-cur-wwjeur appears clear to them. 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 Camron Shoemaker MD~ Signed [facility]06[facility]18[facility] Consult note [facility] Medical Records Department [address] [place] [address] Pre-Anesthesia Evaluation 03/17/25 1110 MR#: [id number] Acct: [id number] Name: DIANE CONNORS Rep #:[id number] : 1985 39 From: Kilo Mtz MD PCP: Shira Arias PARIMUTUEL TICKET CHECKER-C Status:REG S DC Y Race: C Location: [facility]17-1 ASA Classification* ASA Classification ASA Classification: 2 [...] LIVER BIOPSY 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 Hx Hospitalization Yes: 08/2024 ERCP 03/03/25 10:05 [...] take am of surgery PONV PONV - timber grader: PONV - timber grader Female No 03/03/25 10:05 HX of Motion [...] 10 in 03/17/25 10:57 Weight: 93 kg 06/18/25 10:57 Body Mass Index (BMI) 29.4 03/17/25 10:57 Respiratory Assessment Respiratory Assessment - timber grader: Respiratory Tract Infection Hx - timber grader Hx Respiratory Tract Infection No 03/03/25 10:05 STOP Sleep Apnea STOP Sleep Apnea - timber grader: STOP Sleep Apnea - timber grader Hx Hypertension No 03/03/25 10:05 Hx Sleep [...] Tobacco Use History Tobacco Use History - timber grader: Tobacco Use History - timber grader Tobacco Use Smoking Status Never smoker 03/03/25 10:05 Hx Tobacco Use No 03/03/25 10:05 Years Smoking Packs Smoked per Day Smoking Cessation Date was within the last 15 years Hx Smoking Cessation Date Hx Smoking Cessation Counseling Hematologic Medial History Hematologic Hx - timber grader: 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 Hx of Blood Transfusion No 03/03/25 10:05 [...] confused, unrespo /Reproduction History /Reproductive History - timber grader: /Reproductive Hx- timber grader Hx Now Gestational Age (in weeks): EDC: [...] MD Cosigner Signature: Date CC: ~ Signed [facility]05-28-2025 Nuclear medicine Diagnostic study note [facility] Imaging Services [address] [facility] [place] [address] Hepatobilliary Imaging MR#: [id number] Acct: [id number] Name: DIANE CONNORS Rep #: [id number] : 1985 M 39 From: Franco Soto MD PCP: AGUILAR Giles Status: REG C MELANI Study:Hepatobilliary Imaging Date of Exam: 02/24/25 Exam# [id number] Ordering Dr: Michela Sal NP PARIMUTUEL TICKET CHECKERGarrison PROCEDURE: HEPATOBILLIARY IMAGING 02/24/2025 REASON FOR EXAM: [...] GALLBLADDER SUSPICIOUS FOR ACUTE CHOLECYSTITIS Reading Location: [place] [address] CC: ELLI-Marli Sal; AGUILAR Arias ~ Client Support Consultant: Signed [facility]03-19-2025 Consult note [facility] Medical Records Department [address] [place] [address] Consultation - Infectious Dx 12/16/24 1613 MR#: [id number] Acct: [id number] Name: DIANE CONNORS Rep #:[id number] : 1985 39 From: Jared melendrez MD PCP: AGUILAR Giles Status:ADM I N Location: [place] [address] Assessment & Plan Assessment/Plan (1) Bacteremia due [...] performed and neg except as noted above. [facility] Medical History Overweight (BMI 25.0-29.9) No [...] % (Auto) 61.0, Lymph % (Auto) 20.8, 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 Reading Location: [facility] 12/16/24 1617 Cosigner Signature (if applicable): CC: AGUILAR Arias~ Signed [facility]03-19-2025 Discharge summary Author Francesco Lui [facility] Note Date/Time December 16, 2024 2:[address] [facility] Medical Records Department [address] [place] [address] Discharge Summary 12/16/24 1413 MR#: [id number] Acct: [id number] Name: DIANE CONNORS Rep #:[id number] : 1985 39 From: Francesco Love PCP: AGUILAR Giles Status:ADM I N Location: [facility] [id number]- 1 Providers Date of Admission: 12/14/24 Date of Discharge: 12/16/24 Primary Care Physician: AGUILAR Giles Consultations 12/14/24 16:30 Consult: Gastroenterology Routine Consulting Provider: [facility] Reason for Consult: recent ERCP, elevated LFTs EMERGENT Consult: No MD Notified: Yes Date Notified: 12/14/24 Time Notified: 16:31 Method of Notification: Text 12/16/24 11:06 Consult: Infectious Disease Routine Consulting Provider: Jarde Arevalo Reason for Consult: Strep AND GNR [...] is a 39-year-old male who presented to [facility] ED on 12/14/2024 with fevers and [...] range. Patient was seen by ID and kareyay to discharge on Augmentin 875 mg twice [...] % (Auto) 61.0, Lymph % (Auto) 20.8, [place] % (Auto) 13.5 H, Eos % (Auto) [...] Left Blood Culture - Preliminary GNR lactose surgical services tech 12/14/24 12:25 Blood Culture (Wb) - Anticubital Left Blood Culture - Preliminary GNR lactose surgical services tech Alpha Hemolytic Streptococcus 12/14/24 12:25 Mucosa - Nose SARS-CoV-2, Influenza & RSV (PCR) - Final Radiography Diagnostic Testing: Radiology Impression Endo Retro Cholangiopancreatogram 12/15/24 17:35 IMPRESSION: Fluoroscopy during ERCP as above. Reading Location: [id number] D/C Instructions DC O2, CPAP, BIPAP Needs [...] Care Provider: Shira Arias NP Consulting Providers: Crzu Arciniega; Camron Shoemaker; Jared Arevalo Instructions Additional Instructions / Restrictions: Wike-hpa-guhhvfg Tylenol 500 mg every 6 hourly for [...] Self Care Charges/Coding Visit Charges Inpatient E&M: 80698 Disch Hosp >30min 12/16/24 1416 <Electronically signed by Francesco Lui MD> Cosigner Signature (if applicable): CC: AGUILAR Arias; Dr. Camron Shoemaker MD; Dr. Francesco Lui MD; Dr. Jared Arevalo MD; Denys Babin DO~ Signed [facility] Work Phone: 1(883) 470-317803-19-2025 Discharge summary Author Francesco Lui [facility] Note Date/Time December 16, 2024 2:1 3pm [facility] Medical Records Department [address] [place] [address] [place] [address] Instructions for Home/Discharge Instructions 12/16/24 1405 MR#: [id number] Acct: [id number] Name: DIANE CONNORS Rep #:[id number] : 1985 39 From: Francesco Love PCP: [...] Jared Arevalo Instructions Additional Instructions / Restrictions: Ouhw-rho-vqizimf Tylenol 500 mg every 6 hourly for [...] MD; Dr. Jared Arevalo MD ~ Signed [facility] Work Phone: 1(859) 125-778203-19-2025 Consult note Author Camron Shoemaker [facility] Note Date/Time December 16, 2024 12: 25pm [facility] Medical Records Department [address] [place] [address] Consultation - Surgical 12/16/24 1211 MR#: [id number] Acct: [id number] Name: DOROTHY CONNORSNereida Norwood Rep #:[id number] : 1985 39 From: Camron Love PCP: AGUILAR Giles Status:ADM I N Location: [place] [address] Assessment & Plan Assessment/Plan (1) Choledocholithiasis: PLAN: [...] for recurrence. Given patient's personal experience this vnflq-abj-xvtlpe appears clear to them. Patient's spouse does [...] Shoemaker MD General Surgery Endocrine Surgery Pager: [facility] [address] [place] [address], [facility], [address] [place] [address] Office: [phone] HPI Consult Data Date of Consult: 12/16/24 [...] returned to normal when checked through the [facility] system and that is what prompted him to request stent removal from gastroenterology. Gastroenterology had advised against stent removal givenpatient had gallbladder still in place but at patient insistence they proceeded with stent removal. Patient has no significant past medical history aside from the above. He has nohistory of abdominal surgeries. [facility] Medical History Overweight (BMI 25.0-29.9) No [...] % (Auto) 61.0, Lymph % (Auto) 20.8, 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 Reading Location: [facility] Charges/Coding Visit Charges Inpatient E&M: 13814 Init Hosp L2 12/16/24 1225 <Electronically signed by Camron Shoemaker MD> Cosigner Signature (if applicable): CC: AGUILAR Arias~ Signed [facility] Work Phone: [phone]) 137-961603-19-2025 Discharge [address] [facility] Medical Records Department [address] [place] [address] Discharge Summary 12/16/24 1413 MR#: [id number] Acct: [id number] Name: DIANE CONNORS Rep #:[id number] : 1985 39 From: Francesco Love PCP: AGUILAR Giles Status:ADM I N Location: [place] [address] Providers Date of Admission: 12/14/24 Date of Discharge: 12/16/24 Primary Care Physician: AGUILAR Giles Consultations 12/14/24 16:30 Consult: Gastroenterology Routine Consulting Provider: [facility] Reason for Consult: recent ERCP, elevated [...] is a 39-year-old male who presented to [facility] ED on 12/14/2024 with fevers and [...] % (Auto) 61.0, Lymph % (Auto) 20.8, [place] % (Auto) 13.5 H, Eos % (Auto) [...] Left Blood Culture - Preliminary GNR lactose surgical services tech 12/14/24 12:25 Blood Culture (Wb) - Anticubital Left Blood Culture - Preliminary GNR lactose surgical services tech Alpha Hemolytic Streptococcus 12/14/24 12:25 Mucosa - Nose SARS-CoV-2, Influenza & RSV (PCR) - Final Radiography Diagnostic Testing: Radiology Impression Endo Retro Cholangiopancreatogram 12/15/24 17:35 IMPRESSION: Fluoroscopy during ERCP as above. Reading Location: [id number] D/C Instructions DC O2, CPAP, BIPAP Needs [...] Jared Arevalo Instructions Additional Instructions / Restrictions: Nydw-ubj-zozocln Tylenol 500 mg every 6 hourly for [...] Self Care Charges/Coding Visit Charges Inpatient E&M: 78053 Disch Hosp >30min 12/16/24 1416 Cosigner Signature (if applicable): CC: AGUILAR Arias; Dr. Camron Shoemaker MD; Dr. Francesco Lui MD; Dr. Jared Arevalo MD; Denys Babin DO~ Signed [facility]03-19-2025 Discharge summary [facility] Medical Records Department [address] [place] [address] Instructions for Home/Discharge Instructions 12/16/24 1405 MR#: [id number] Acct: [id number] Name: DIANE CONNORS Rep #:[id number] : 1985 39 From: Francesco Love PCP: [...] Jared Arevalo Instructions Additional Instructions / Restrictions: Tuzd-shf-vvsukxc Tylenol 500 mg every 6 hourly for [...] (Follow- up liver chemistry) Shira Arias NP, ELLI-Marli [Primary Care Provider] - Disposition Disposition (needs filled in before D/C Order can be placed): Home, Self Care 12/16/24 1413Psteve Lui MD CC: AGUILAR Arias; Dr. Cruz Arciniega DO; Dr. Camron Shoemaker MD; Dr. Jared Arevalo MD ~ Signed [facility]03-19-[facility] Consult note [facility] Medical Records Department [address] [place] [address] Consultation - Surgical 12/16/24 1211 MR#: [id number] Acct: [id number] Name: DIANE CONNORS Rep #:[id number] : 1985 39 From: Camron Love PCP: AGUILAR Giles Status:ADM I N Location: [place] [address] Assessment & Plan Assessment/Plan (1) Choledocholithiasis: PLAN: [...] that he did not follow through with [facility] order. Upon obtaining laboratories that showed normal [...] for recurrence. Given patient's personal experience this soxxm-uwu-yyvyqt appears clear to them. Patient's spouse does [...] Shoemaker MD General Surgery Endocrine Surgery Pager: [facility] [address] [place] [address], [address] [place] [address] Office: [phone] HPI Consult Data Date of Consult: 12/16/24 [...] returned to normal when checked through the [facility] system and that is what prompted him to request stent removal from gastroenterology. Gastroenterology had advised against stent removal givenpatient had gallbladder still in place but at patient insistence they proceeded with stent removal. Patient has no significant past medical history aside from the above. He has nohistory of abdominalsurgeries. [facility] Medical History Overweight (BMI 25.0-29.9) No [...] % (Auto) 61.0, Lymph % (Auto) 20.8, 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 Reading Location: [id number] Charges/Coding Visit Charges Inpatient E&M: 73187 Init Hosp L2 12/16/24 1225 Cosigner Signature (if applicable): CC: AGUILAR Arias~ Signed [facility]03-18-2025 Consult note Author Gray López [facility] Note Date/Time December 15, 2024 6:4 5pm [facility] Medical Records Department [address] [place] [address] Anesthesia Postop Eval II 12/15/24 1845 MR#: [id number] Acct: [id number] Name: DIANE CONNORS Rep #:[id number] : 1985 39 From: Gray López MD PCP: AGUILAR Giles Status:ADM I N Y Race: C Location: [place] [address] 0-1 Anesthesia Postop Eval I Sum Postop [...] MD Cosigner Signature: Date CC: ~ Signed [facility] Work Phone: 1(863) 510-278703-18-2025 Consult note Author Gray [facility] Note Date/Time December 15, 2024 6:4 4pm [facility] Medical Records Department [address] [facility] [place] [address] Anesthesia Postop Eval I 12/15/241842 MR#: [id number] Acct: [id number] Name: DIANE CONNORS Rep #:[id number] : 1985 39 From: Gray López MD PCP: AGUILAR Giles Status:ADM I N Y Race: C Location: [facility] PCU12 0-1 Anesthesia: Postop Eval I Current Vital [...] document: Postop Eval 1 completed: Yes 12/15/24 2854 <Electronically signed by Gray López MD> Date _ Gray López MD Cosigner Signature: Date CC: ~ Signed [facility] Work Phone: 1(737) 644-358803-18-2025 Progress note Author Denys Friend [facility] Note Date/Time December 15, 2024 5:3 8pm [facility] Medical Records Department [address] [place] [address] Progress Note 12/15/24 1734 MR#: [id number] Acct: [id number] Name: DIANE CONNORS Rep #:[id number] : 1985 39 From: Denys Babin DO PCP: AGUILAR Giles Status:ADM I N Location: [place] [address] Progress Note I had a long conversation [...] is a 39-year-old male who presented to [facility] ED on 12/14/2024 with fevers and [...] ERCP today. . Visit Charges Inpatient E&M: 52834 Subs Hosp L2 12/15/24 0830 <Electronically signed by Denys Babin DO> Denys Babin DO Cosigner Signature (if applicable): CC: ~ Signed [facility] Work Phone: 1(298) 376-955203-18-2025 Radiology Diagnostic study note [facility] Imaging Services [address] [place] [address] ERCP Biliary/Pancreas MR#: [id number] Acct: [id number] Name: DIANE CONNORS Rep #: [id number] : 1985 M 39 From: Jadiel Lawson MD PCP: AGUILAR Giles Status: ADM I N Study:ERCP Biliary/Pancreas Date of Exam: 12/15/24 Exam# [id number] Ordering Dr: Kayleigh Babin DO PROCEDURE: ERCP [...] Fluoroscopy during ERCP as above. Reading Location: [id number] CC: AGUILAR Arias; Denys Babin, DO Martínez Client Support Consultant: Signed [facility]03-18-2025 Consult note [facility] Medical Records Department [address] [place] [address] Anesthesia Postop Eval II 12/15/24 1845 MR#: [id number] Acct: [id number] Name: DIANE CONNORS Rep #:[id number] : 1985 39 From: Gray López MD PCP: AGUILAR Giles Status:ADM I N Y Race: C Location: [place] [address] 0-1 Anesthesia Postop Eval I Sum Postop [...] Vomiting: No Complications Anesthesia Complication: No 12/15/24 1845 > Date _ Gray Gilmaner Signature: Date CC: ~ Signed [facility]03-18-2025 Consult note [facility] Medical Records Department [address] [facility] [place] [address] Anesthesia Postop Eval I 12/15/24 184 MR#: [id number] Acct: [id number] Name: DIANE CONNORS Rep #:[id number] : 1985 39 From: Gray López MD PCP: AGUILAR Giles Status:ADM I N Y Race: C Location: [place] [address] 0-1 Anesthesia: Postop Eval I Current Vital [...] document: Postop Eval 1 completed: Yes 12/15/241843 > Date _ Gray Marrero Signature: Date CC: ~ Signed [facility]03-18-2025 Consult note Author Gray López [facility] Note Date/Time December 15, 2024 4:1 9pm [facility] Medical Records Department [address] [place] [address] Pre-Anesthesia Evaluation 12/15/24 1551 MR#: [id number] Acct: [id number] Name: DIANE CONNORS Rep #:[id number] : 1985 39 From: Gray López MD PCP: ROLY GilesC Status:ADM I N Y Race: C Location: [place] [address] 0-1 ASA Classification* ASA Classification ASA Classification: [...] Procedure(s): ERCP 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 Hx Hospitalization Yes: 08/2024 ERCP 12/09/24 10:19 [...] take am of surgery PONV PONV - timber grader: PONV - timber grader Female HX of Motion Sickness HX of N/V After Surgery Non-Smoker Duration of Surgery greater than 60 minutes Number of Risk Factors PONV Score Height & Weight Height & Weight: Anesthesia: Height & Weight Height 5 ft 10.08 in 12/15/24 14:00 Weight: 93 kg 12/15/24 14:00 Body Mass Index (BMI) 29.3 12/15/24 14:00 Respiratory Assessment Respiratory Assessment - timber grader: Respiratory Tract Infection Hx - timber grader Hx Respiratory Tract Infection No 12/14/24 21:38 STOP Sleep Apnea STOP Sleep Apnea - timber grader: STOP Sleep Apnea - timber grader Hx Hypertension No 12/14/24 16:44 Hx Sleep [...] Tobacco Use History Tobacco Use History - timber grader: Tobacco Use History - timber grader Tobacco Use Smoking Status Never smoker 12/14/24 16:44 Hx Tobacco Use No 12/14/24 16:44 Years Smoking Packs Smoked per Day Smoking Cessation Date was within the last 15 years Hx Smoking Cessation Date Hx Smoking Cessation Counseling Hematologic Medial History Hematologic Hx - timber grader: 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 Hx of Blood Transfusion No 12/14/24 16:44 [...] confused, unrespo /Reproduction History /Reproductive History - timber grader: /Reproductive Hx- timber grader Hx Now No 12/14/24 21:38 Gestational Age [...] rhythm, no murmurs and diaphoretic 12/15/24 1619 <Electronically signed by Gray López MD> Date _ Gray López MD Cosigner Signature: Date CC: ~ Signed [facility] Work Phone: 1(555) 331-656503-18-2025 Procedure note [facility] Medical Records Department [address] [place] [address] ERCP Report MR#: [id number] Acct: [id number] Name: DIANE CONNORS Rep #:[id number] : 1985 39 From: Denys Babin DO [...] hours 12 minutes 6 seconds Findings: The mechanical applications engineer film was normal. The esophagus was successfully [...] bile duct. Procedure Code(s): --- Professional --- 85708, Endoscopic retrograde cholangiopancreatography (ERCP); with placement of endoscopic stent into biliary or pancreatic duct, including pre- and post-dilation and guide wire passage, when performed, including sphincterotomy, when performed, each stent 57126, Endoscopic retrograde cholangiopancreatography (ERCP); with removal of calculi/debris from biliary/pancreatic duct(s) 06048, 26, Endoscopic catheterization of the biliary ductal system, radiological supervision and interpretation CPT copyright 2021 [employer] [place] [employer]. All rights reserved. The codes documented in this report are preliminary and upon spark plug tester review may be revised to meet current compliance requirements. Denys Babin DO 12/15/2024 6:13:06 PM This report has been signed electronically. Number of Addenda: 0 Note Initiated On: 12/15/2024 5:32 PM 12/15/24 181 Date _ Denys Babin DO Cosigner Signature: Date (if indicated) CC: AGUILAR Arias; Denys Babin DO ~ Date Dictated: 12/15/24 173 Date Transcribed: Client Support Consultant: ELDER Signed [facility]03-18-2025 Procedure note [facility] Medical Records Department [address] [place] [address] Operative Report - CC Letter MR#: [id number] Acct: [id number] Name: DIANE CONNORS Rep #:[id number] : 1985 39 From: Denys Babin DO [...] free to contact me at . Sincerely, Dneys Babin DO 12/15/2024 6:13:06 PM This report has been signed electronically. 12/15/241812 Date _ Denys Babin DO Cosigner Signature: Date (if indicated) CC: AGUILAR Arias; Dr. Cruz Arciniega DO; Dr. Francesco Lui MD ~ Date Dictated: 12/15/241731 Date Transcribed: Client Support Consultant: RF Signed [facility]03-18-2025 Progress note [facility] Medical Records Department [address] [place] [address] Progress Note 12/15/241733 MR#: [id number] Acct: [id number] Name: DIANE CONNORS Rep #:[id number] : 1985 39 From: Denys Babin DO PCP: AGUILAR Giles Status:ADM I N Location: [place] [address] Progress Note I had a long conversation [...] is a 39-year-old male who presented to [facility] ED on 12/14/2024 with fevers and [...] ERCP today. . Visit Charges Inpatient E&M: 08637 [facility] Hosp L2 12/15/24 1696 Denys Friend DO Cosigner Signature (if applicable): CC: ~ Signed [facility]03-18-2025 Consult note [facility] Medical Records Department [address] [place] [address] Pre-Anesthesia Evaluation 12/15/24 1551 MR#: [id number] Acct: [id number] Name: DIANE CONNORS Rep #:[id number] : 1985 39 From: Gray López MD PCP: AGUILAR Giles Status:ADM I N Y Race: C Location: [place] [address] 0-1 ASA Classification* ASA Classification ASA Classification: [...] Procedure(s): ERCP 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 Hx Hospitalization Yes: 08/2024 ERCP 12/09/24 10:19 [...] take am of surgery PONV PONV - timber grader: PONV - timber grader Female HX of Motion Sickness HX of N/V After Surgery Non-Smoker Duration of Surgery greater than 60 minutes Number of Risk Factors PONV Score Height & Weight Height & Weight: Anesthesia: Height & Weight Height 5 ft 10.08 in 12/15/24 14:00 Weight: 93 kg 12/15/24 14:00 Body Mass Index (BMI) 29.3 12/15/24 14:00 Respiratory Assessment Respiratory Assessment - timber grader: Respiratory Tract Infection Hx - timber grader Hx Respiratory Tract Infection No 12/14/24 21:38 STOP Sleep Apnea STOP Sleep Apnea - timber grader: STOP Sleep Apnea - timber grader Hx Hypertension No 12/14/24 16:44 Hx Sleep [...] Tobacco Use History Tobacco Use History - timber grader: Tobacco Use History - timber grader Tobacco Use Smoking Status Never smoker 12/14/24 16:44 Hx Tobacco Use No 12/14/24 16:44 Years Smoking Packs Smoked per Day Smoking Cessation Date was within the last 15 years Hx Smoking Cessation Date Hx Smoking Cessation Counseling Hematologic Medial History Hematologic Hx - timber grader: 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 Hx of Blood Transfusion No 12/14/24 16:44 [...] confused, unrespo /Reproduction History /Reproductive History - timber grader: /Reproductive Hx- timber grader Hx Now No 12/14/24 21:38 Gestational Age [...] rhythm, no murmurs and diaphoretic 12/15/24 1619 > Date _ Gray López MD Cosigner Signature: Date CC: ~ Signed [facility]03-18-2025 Progress note Author Francesco Lui [facility] Note Date/Time December 15, 2024 2:1 6pm [facility] Medical Records Department [address] [place] [address] Progress Note - Hospitalist 12/15/24 0801 MR#: [id number] Acct: [id number] Name: DIANE CONNORS Rep #:[id number] : 1985 39 From: Francesco Love PCP: AGUILAR Giles Status:ADM I N Location: [place] [address] Reason for Visit Reason for Visit: Diagnoses [...] 90.5 H, Lymph % (Auto) 3.2 L, [place] % (Auto) 4.7, Eos % (Auto) 0.1, [...] Clarity Clear, Urine pH 7.0, Ur Specific [place] 1.005, Urine Protein 30 H, Urine Glucose [...] the head of the pancreas. Reading Location: [facility]1 Chest X-Ray 12/14/24 12:19 IMPRESSION: 1. Mild left basilar airspace disease favorable for atelectasis/scarring howeverthis is not definite in the absence of prior exams to confirm stability. Correlate for mild pneumonia. 2. Additional description as above. Reading Location: [facility] Physical Exam Narrative Seen and examined. [...] is a 39-year-old male who presented to [facility] ED on 12/14/2024 with fevers and [...] elevated ALT since August 2024 as per [employer]. Fluctuates between 50 to 78. Admitted with [...] is 35 minutes. Visit Charges Inpatient E&M: 69831 Subs Hosp L3 12/15/24 1416 <Electronically signed by Francesco Lui MD> Cosigner Signature (if applicable): CC: ~ Signed [facility] Work Phone: 1(876) 178-510803-18-[address] [facility] Medical Records Department [address] [place] [address] Progress Note - Hospitalist 12/15/24 0801 MR#: [id number] Acct: [id number] Name: DIANE CONNORS Rep #:[id number] : 1985 39 From: Francesco Love PCP: AGUILAR Giles Status:ADM I N Location: [place] [address] Reason for Visit Reason for Visit: Diagnoses [...] 90.5 H, Lymph % (Auto) 3.2 L, [place] % (Auto) 4.7, Eos % (Auto) 0.1, [...] Clarity Clear, Urine pH 7.0, Ur Specific [place] 1.005, Urine Protein 30 H, Urine Glucose [...] the head of the pancreas. [facility] Chest X-Ray 12/14/24 12:19 IMPRESSION: 1. Mild left basilar airspace disease favorable for atelectasis/scarring howeverthis is not definite in the absence of prior exams to confirm stability. Correlate for mild pneumonia. 2. Additional description as above. Reading Location: [facility] Physical Exam Narrative Seen and examined. Patient does not have abdominal pain but was having fever and chills and jaundice. His furthersaid in first week of October his labs showed AST ALT 33/34 his bilirubin was about 1.0 although no Documentary evidence. Currently patient is NPO. Discussed with DrAlverto Babin Physical exam General: Alert, Oriented x3, [...] is a 39-year-old male who presented to [facility] ED on 12/14/2024 with fevers and [...] is 35 minutes. Visit Charges Inpatient E&M: 13533 Subs Hosp L3 12/15/24 1416 Cosigner Signature (if applicable): CC: ~ Signed [facility]03-17-2025 Discharge summary Author Petar Barrera [facility] Note Date/Time December 14, 2024 3:4 8pm [facility] Medical Records Department [address] [place] [address] Emergency Department Summary 12/14/24 MR#: [id number] Acct: [id number] Name: DIANE CONNORS Rep #:[id number] : 1985 39 From: Petar Parra PCP: AGUILAR Giles Status:ADM I N Location: [address] History of Present Illness Chief Complaint: [...] History obtained from others: the patient's Consults: [employer] (Dr. Babin), internal medicine (Dr. Arciniega) [facility] Narrative: The patient was initially hemodynamically stable, [...] for reoccurring hepatobiliary production. Discussed with the waterproof bag cutting machine operator (Dr. Babin) recommended admission with broad-spectrum antibiotics for ERCP and possible stent placement. Saw the patient broad-spectrum antibiotics given white count, fever and concern for infectious cholestasis. Discussed with hospitalist agreed admit the patient to [facility]. The patient and/or family, caregivers express [...] 4. Elevated liver enzymes Dispo: Admit to [facility] discharge This note was generated with [employer] dictation software. It may contain incorrect words, [...] 90.5 H Lymph % (Auto) 3.[address] [place] % (Auto) 4.7 Eos % (Auto) 0.1 [...] Clarity Clear Urine pH 7.0 Ur Specific [place] 1.005 Urine Protein 30 H Urine Glucose [...] the head of the pancreas. Reading Location: [facility]-1 Chest X-Ray 12/14/24 12:19 IMPRESSION: 1. Mild left basilar airspace disease favorable for atelectasis/scarring however this is not definite in the absence of prior exams to confirm stability. Correlate for mild pneumonia. 2. Additional description as above. Reading Location: [facility] Discharge Plan Triage Chief Complaint: Fever ED Provider: Petar Barrera Dx/Rx/DC Orders Primary Care Provider: Shira Arias NP What to do if you have Problems For any increased pain, shortness of breath, bleeding, nausea or vomiting, chest pain, or any unexpected problems, contact your Primary Care Provider. Call [facility] ([phone]) or report to the closest Emergency Room. Call 911 if necessary. 12/14/24 1548 <Electronically signed by Petar Barrera DO> Cosigner Signature (if applicable): CC: AGUILAR Arias ~ Signed [facility] Work Phone: 1(901) 773-352303-17-2025 History and physical note Author Cruz Arciniega [facility] Note Date/Time December 14, 2024 3:1 2pm [facility] Medical Records Department [address] [place] [address] H&P Exam - Hospitalist 12/14/24 4772 MR#: [id number] Acct: [id number] Name: DIANE CONNORS Rep #:[id number] : 1985 39 From: Cruz Renetta esposito DO PCP: ROLY GilesC Status:REG E R Location: ED HPI - General General Date of Admission: 12/14/24 Date of Service: 12/14/24 Chief Complaint: Fevers and chills HPI Narrative DIANE CONNORS, is a 39 M who presented to [facility] ED on 12/14/2024 with fevers and [...] any other acute concerns at this time. [facility] Medical History Overweight (BMI 25.0-29.9) No [...] 90.5 H, Lymph % (Auto) 3.2 L, [place] % (Auto) 4.7, Eos % (Auto) 0.1, [...] Clarity Clear, Urine pH 7.0, Ur Specific [place] 1.005, Urine Protein 30 H, Urine Glucose [...] the head of the pancreas. [facility] Chest X-Ray 12/14/24 12:19 IMPRESSION: 1. Mild left basilar airspace disease favorable for atelectasis/scarring howeverthis is not definite in the absence of prior exams to confirm stability. Correlate for mild pneumonia. 2. Additional description as above. Reading Location: [id number] Assessment & Plan Assessment/Plan (1) Hyperbilirubinemia: (2) Elevation of levels of liver transaminase levels: PLAN: Plan Patient is a 39-year-old male who presented to [facility] ED on 12/14/2024 with fevers and chills after recent ERCP. 1. 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 Admit under inpatient status to [facility]. GI consulted. See HPI for further [...] 55 minutes. Charges/Coding Visit Charges Inpatient E&M: 19986 Init Hosp L2 12/14/24 1512 <Electronically signed by Cruz Arciniega DO> Cosigner Signature (if applicable): CC: AGUILAR Arias; Dr. Cruz Arciniega DO~ Signed [facility] Work Phone: 1(673) 240-923203-17-2025 Discharge summary [facility] Medical Records Department [address] [place] [address] Emergency Department Summary 12/14/24 MR#: [id number] Acct: [id number] Name: DIANE CONNORS Rep #:[id number] : 1985 39 From: Petar Parra PCP: AGUILAR Giles Status:ADM I N Location: [address] History of Present Illness Chief Complaint: [...] History obtained from others: the patient's Consults: [employer] (Dr. Babin), internal medicine (Dr. Arciniega) [facility] Narrative: The patient was initially hemodynamically stable, [...] for reoccurring hepatobiliary production. Discussed with the waterproof bag cutting machine operator (Dr. Babin) recommended admission with broad-spectrum antibiotics for ERCP and possible stent placement. Saw the patient broad-spectrum antibiotics given white count, fever and concern for infectious cholestasis. Discussed with hospitalist agreed admit the patient to [facility]. The patient and/or family, caregivers express [...] 4. Elevated liver enzymes Dispo: Ad[facility] to [facility] discharge This note was generated with [employer] dictation software. It may contain incorrect words, [...] 90.5 H Lymph % (Auto) 3.[address] [place] % (Auto) 4.7 Eos % (Auto) 0.1 [...] Clarity Clear Urine pH 7.0 Ur Specific [place] 1.005 Urine Protein 30 H Urine Glucose [...] the head of the pancreas. Reading Location: [facility] Chest X-Ray 12/14/24 12:19 IMPRESSION: 1. Mild left basilar airspace disease favorable for atelectasis/scarring however this is not definite in the absence of prior exams to confirm stability. Correlate for mild pneumonia. 2. Additional description as above. Reading Location: [facility] Discharge Plan Triage Chief Complaint: Fever ED Provider: Petar Barrera Dx/Rx/DC Orders Primary Care Provider: Shira Arias NP What to do if you have Problems For any increased pain, shortness of breath, bleeding, nausea or vomiting, chest pain, or any unexpected problems, contact your Primary Care Provider. Call [facility] ([phone]) or report to the closest Emergency Room. Call 911 if necessary. 12/14/24 1548 Cosigner Signature (if applicable): CC: AGUILAR Arias ~ Signed [facility]03-17-2025 History and physical note [facility] Medical Records Department [address] [place] [address] H&P Exam - Hospitalist 12/14/24 2573 MR#: [id number] Acct: [id number] Name: DIANE CONNORS Rep #:[id number] : 1985 39 From: Cruz Renetta esposito DO PCP: Shira Arias NP-Marli Status:REG E R Location: ED HPI - General General Date of Admission: 12/14/24 Date of Service: 12/14/24 Chief Complaint: Fevers and chills HPI Narrative DIANE CONNORS, is a 39 M who presented to [facility] ED on 12/14/2024 with fevers and [...] any other acute concerns at this time. [facility] Medical History Overweight (BMI 25.0-29.9) No [...] 90.5 H, Lymph % (Auto) 3.2 L, [place] % (Auto) 4.7, Eos % (Auto) 0.1, [...] Clarity Clear, Urine pH 7.0, Ur Specific [place] 1.005, Urine Protein 30 H, Urine Glucose [...] the head of the pancreas. Reading Location: [facility]-1 Chest X-Ray 12/14/24 12:19 IMPRESSION: 1. Mild left basilar airspace disease favorable for atelectasis/scarring howeverthis is not definite in the absence of prior exams to confirm stability. Correlate for mild pneumonia. 2. Additional description as above. Reading Location: [id number] Assessment & Plan Assessment/Plan (1) Hyperbilirubinemia: (2) Elevation of levels of liver transaminase levels: PLAN: Plan Patient is a 39-year-old male who presented to [facility] ED on 12/14/2024 with fevers and chills after recent ERCP. 1. 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 Admit under inpatient status to [facility]. GI consulted. See HPI for further [...] 55 minutes. Charges/Coding Visit Charges Inpatient E&M: 14852 Init Hosp L2 12/14/24 1510 Cosigner Signature (if applicable): CC: AGUILAR Arias; Dr. Cruz Arciniega, ~ Signed [facility]03-17-2025 Discharge summary Author Petar Barrera [facility] Note Date/Time December 14, 2024 3:4 8pm [facility] Medical Records Department [address] [place] [address] Emergency Department Summary 12/14/24 MR#: [id number] Acct: [id number] Name: DIANE CONNORS Rep #:[id number] : 1985 39 From: Petar Parra PCP: AGUILAR Giles Status:ADM I N Location: [address] History of Present Illness Chief Complaint: [...] History obtained from others: the patient's Consults: [employer] (Dr. Babin), internal medicine (Dr. Arciniega) [facility] Narrative: The patient was initially hemodynamically stable, [...] for reoccurring hepatobiliary production. Discussed with the waterproof bag cutting machine operator (Dr. aBbin) recommended admission with broad-spectrum antibiotics for ERCP and possible stent placement. Saw the patient broad-spectrum antibiotics given white count, fever and concern for infectious cholestasis. Discussed with hospitalist agreed admit the patient to [facility]. The patient and/or family, caregivers express understanding. [...] [facility] discharge This note was generated with [employer] dictation software. It may contain incorrect words, [...] 90.5 H Lymph % (Auto) 3.[address] [place] % (Auto) 4.7 Eos % (Auto) 0.1 [...] Clarity Clear Urine pH 7.0 Ur Specific [place] 1.005 Urine Protein 30 H Urine Glucose [...] the head of the pancreas. Reading Location: [facility] Chest X-Ray 12/14/24 12:19 IMPRESSION: 1. Mild left basilar airspace disease favorable for atelectasis/scarring however this is not definite in the absence of prior exams to confirm stability. Correlate for mild pneumonia. 2. Additional description as above. Reading Location: [facility] Discharge Plan Triage Chief Complaint: Fever ED Provider: Petar Barrera Dx/Rx/DC Orders Primary Care Provider: Shira Arias NP What to do if you have Problems For any increased pain, shortness of breath, bleeding, nausea or vomiting, chest pain, or any unexpected problems, contact your Primary Care Provider. Call [facility] ([phone]) or report to the closest Emergency Room. Call 911 if necessary. 12/14/24 1548 <Electronically signed by Petar Barrera DO> Cosigner Signature (if applicable): CC: AGUILAR Arias ~ Signed [facility] Work Phone: 1(377) 420-871203-17-2025 Radiology Diagnostic study note [facility] Imaging Services [address] [place], [place] [address] Chest PA and Lateral MR#: [id number] Acct: [id number] Name: DIANE CONNORS Rep #: [id number] : 1985 M 39 From: Lily Holt MD PCP: AGUILAR Giles Status: REG E R Study:Chest PA and Lateral Date of Exam: 12/14/24 Exam# [id number] Ordering Dr: Chela Barrera DO PROCEDURE: CHEST [...] 2. Additional description as above. Reading Location: [id number] CC: [employer]-C Shira Arias; Dr. Petar Barrera DO ~ Client Support Consultant: Signed [facility]03-17-2025 Radiology Diagnostic study note [facility] Imaging Services [address] [place] [address] [id number] Abdomen/Pelvis W IV Cont ONLY MR#: [id number] Acct: [id number] Name: DIANE CONNORS Rep #: [id number] : 1985 M 39 From: Franco Soto MD PCP: AGUILAR Giles Status: PRE E R Study:Abdomen/Pelvis W IV Cont ONLY Date of E xam: 12/14/24 Exam# [id number] Ordering Dr: Chela Barrera DO PROCEDURE: ABDOMEN/PELVIS [...] the head of the pancreas. Reading Location: [place] [address] CC: [employer]-C Shira Arias; Dr. Petar Barrera, DO Client Support Consultant: Signed [facility]03-14-2025 Consult note [facility] Medical Records Department [address] [place] [address] Anesthesia Postop Eval II 12/11/24 1520 MR#: [id number] Acct: [id number] Name: DOROTHY CONNORSNereida [place]wood Rep #:[id number] : 1985 39 From: Rafael Hooper MD PCP: Shira Arias, [employer]-C Status:REG S DC Y Race: C Location: [place] [address] Anesthesia Postop Eval I Sum Postop Eval [...] No 12/11/24 1520 > Date _ Rafael Levineignel Signature: Date CC: ~ Signed [facility]03-14-2025 Radiology Diagnostic study note [facility] Imaging Services [address] [place] [address] 085341 ERCP Biliary/Pancreas MR#: [id number] Acct: [id number] Name: DIANE CONNORS Rep #: [id number] : 1985 M 39 From: Franco Soto MD PCP: AGUILAR Giles Status: REG S DC Study:ERCP Biliary/Pancreas Date of Exam: 12/11/24 Exam# [id number] Ordering Dr: Kayleigh Babin DO PROCEDURE: ERCP BILIARY/PANCREAS REASON FOR EXAM: ERCP TECHNIQUE: An ERCP was performed by the waterproof bag cutting machine operator. Fluoroscopic services were provided. COMPARISON: None. FINDINGS: A stent is seen on the original images. Following this, there is cannulation ofthe common bile duct. Contrast was injected. No filling defect is seen. RAD/ERCP Biliary/Pancreas IMPRESSION: Biliary stent removal. Reading Location: [place] [address] CC: AGUILAR Arias; Denys Friend, DO ~ Client Support Consultant: Signed [facility]03-14-2025 Consult note Author Rafael Hooper [facility] Note Date/Time December 11, 2024 1:0 0pm [facility] Medical Records Department [address] [place] [address] Pre-Anesthesia Evaluation 12/11/24 1259 MR#: [id number] Acct: [id number] Name: IDANE CONNORS Rep #:[id number] : 1985 39 From: Rafael Hooper MD PCP: AGUILAR Giles Status:REG S DC Y Race: C Location: [place] [address] ASA Classification* ASA Classification ASA Classification: 2 [...] Procedure(s): ERCP 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 Hx Hospitalization Yes: 08/2024 ERCP 12/09/24 10:19 [...] take am of surgery PONV PONV - timber grader: PONV - timber grader Female No 12/09/24 10:19 HX of Motion [...] 09/11/24 08:02 Respiratory Assessment Respiratory Assessment - timber grader: Respiratory Tract Infection Hx - timber grader Hx Respiratory Tract Infection No 12/09/24 10:19 STOP Sleep Apnea STOP Sleep Apnea - timber grader: STOP Sleep Apnea - timber grader Hx Hypertension No 12/09/24 10:19 Hx Sleep [...] Tobacco Use History Tobacco Use History - timber grader: Tobacco Use History - timber grader Tobacco Use Smoking Status Never smoker 12/09/24 10:19 Hx Tobacco Use No 12/09/24 10:19 Years Smoking Packs Smoked per Day Smoking Cessation Date was within the last 15 years Hx Smoking Cessation Date Hx Smoking Cessation Counseling Hematologic Medial History Hematologic Hx - timber 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: 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 Hx of Blood Transfusion No 12/09/24 10:19 [...] confused, unrespo /Reproduction History /Reproductive History - timber grader: /Reproductive Hx- timber grader Hx Now No 12/09/24 10:19 Gestational Age (in weeks): EDC: Hx Hx Para Hx Section SAB No 12/09/24 10:19 [facility] Medical History Overweight (BMI 25.0-29.9) No [...] MD > Date _ Rafael Hooper MD Cosign Signature: Date CC: ~ Signed [facility] Work Phone: 1(328) 207-790503-14-2025 History and physical note Author Denys Babin [facility] Note Date/Time December 11, 2024 12: 52pm [facility] Medical Records Department [address] [place] [address] History & Physical Exam 12/11/24 1250 MR#: [id number] Acct: [id number] Name: KENNEY CONNORSDAMIÁN [place] Rep #:[id number] : 1985 39 From: Denys Babin DO PCP: Shira Lorson, [employer]-C Status:REG S DC Location: [facility] HPI - General General Date of Admission: 12/11/24 Date of Service: 12/11/24 Chief Complaint: stent removal HPI Narrative DIANE CONNORS, is a 39 M who presents for biliary stent removal. [facility] inpatient 12.6.24-12.9.24- Choledocholithiasis with severe jaundice, small gall stone removed from bile duct. MRCP only found cholelithiasis and a biliary stent in place. Pt was referred to general surgery for poss. cholecystectomy. Ptstates he is well since the hospital visit. Is not having any abdominal pain, loss of appetite, fatigue or changes in bowels. [facility] Medical History Overweight (BMI 25.0-29.9) No [...] with Dr. Eli imagings reviewed. MRCP shows diffuse intra and [...] CC: AGUILAR Arias; Denys Babin DO~ Signed [facility] Work Phone: 1(505) 364-201503-14-2025 Evaluation note* Diagnosis Onset Date Resolution Status [...] 2024 10:55am Jaundice acute December 31 10:55am [facility] Work Phone: 1(897) 699-860403-14-2025 Evaluation note* Diagnosis Onset Date Resolution Status [...] laparoscopic cholecystectomy acute March 17, 2025 3:40pm [facility] Work Phone: 1(783) 185-206703-14-2025 Evaluation note* Diagnosis Onset Date Resolution Status [...] laparoscopic cholecystectomy acute March 25, 2025 1:05pm [facility] Work Phone: 1(851) 521-731903-14-2025 Evaluation note* Diagnosis Onset Date Resolution Status [...] laparoscopic cholecystectomy acute March 25, 2025 1:05pm [facility] Work Phone: 1(909) 188-719103-14-2025 Evaluation note* Diagnosis Onset Date Resolution Status [...] laparoscopic cholecystectomy acute March 31, 2025 1:58pm [facility] Work Phone: [phone] [id number] Consult note [facility] Medical Records Department [address] [facility] [place] [place] [address] Anesthesia Postop Eval I 12/11/241425 MR#: [id number] Acct: [id number] Name: DIANE CONNORS Rep #:[id number] : 1985 39 From: Hipolito Rasheed PCP: AGUILAR Giles Status:REG S DC Y Race: C Location: [place] [address] Anesthesia: Postop Eval I Current Vital Signs [...] document: Postop Eval 1 completed: Yes 12/11/24 142 > Date _ Hipolito Marrero Signature: Date CC: ~ Signed [facility]03-14-2025 Procedure note [facility] Medical Records Department [address] [place] [address] ERCP Report MR#: [id number] Acct: [id number] Name: DIANE CONNORS Rep #:[id number] : 1985 39 From: Denys Babin DO [...] hours 15 minutes 9 seconds Findings: The mechanical applications engineer film was normal. The esophagus was successfully [...] Recommendation: Cholecystectomy Procedure Code(s): --- Professional --- 00844, Endoscopic retrograde cholangiopancreatography (ERCP); with removal of foreign body(s) or stent(s) from biliary/pancreatic duct(s) 74039, Endoscopic retrograde cholangiopancreatography (ERCP); with removal of calculi/debris from biliary/pancreatic duct(s) 65147, Endoscopic retrograde cholangiopancreatography (ERCP); with sphincterotomy/papillotomy 32298, 26, Endoscopic catheterization of the biliary ductal system, radiological supervision and interpretation CPT copyright 2021 [employer] [place] [employer]. All rights reserved. The codes documented in this report are preliminary and upon spark plug tester review may be revised to meet current compliance requirements. Denys Babin DO 12/11/2024 2:18:31 PM This report has been signed electronically. Number of Addenda: 0 Note Initiated On: 12/11/2024 1:30 PM 12/11/24 1418 Date _ Denys Babin DO Cosigner Signature: Date (if indicated) CC: AGUILAR Arias; Denys Babin DO ~ Date Dictated: 12/11/24 1330 Date Transcribed: Client Support Consultant: RF Signed [facility]03-14-2025 Procedure note [facility] Medical Records Department [address] [place] [address] Operative Report - CC Letter MR#: [id number] Acct: [id number] Name: DIANE CONNORS Rep #:[id number] : 1985 39 From: Denys Babin DO PCP: AGUILAR Giles Status:REG S DC 12/11/2024 Shira Arias Re : ERCP procedure for Diane Connors Dear Madeleinearsenio This procedure was performed on Wednesday, December [...] signed electronically. 12/11/24 1418 Date _ Denys Babin DO Cosigner Signature: Date (if indicated) CC: AGUILAR Arias; Denys Babin DO ~ Date Dictated: 12/11/24 1330 Date Transcribed: Client Support Consultant: RF Signed [facility]03-14-2025 Consult note [facility] Medical Records Department [address] [place] [address] Pre-Anesthesia Evaluation 12/11/24 1259 MR#: [id number] Acct: [id number] Name: DIANE CONNORS Rep #:[id number] : 1985 39 From: Rafael Hooper MD PCP: AGUILAR Giles Status:REG S DC Y Race: C Location: [place] [address] ASA Classification* ASA Classification ASA Classification: 2 [...] Procedure(s): ERCP 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 Hx Hospitalization Yes: 08/2024 ERCP 12/09/24 10:19 [...] take am of surgery PONV PONV - timber grader: PONV - timber grader Female No 12/09/24 10:19 HX of Motion [...] 09/11/24 08:02 Respiratory Assessment Respiratory Assessment - timber grader: Respiratory Tract Infection Hx - timber grader Hx Respiratory Tract Infection No 12/09/24 10:19 STOP Sleep Apnea STOP Sleep Apnea - timber grader: STOP Sleep Apnea - timber grader Hx Hypertension No 12/09/24 10:19 Hx Sleep [...] Tobacco Use History Tobacco Use History - timber grader: Tobacco Use History - timber grader Tobacco Use Smoking Status Never smoker 12/09/24 10:19 Hx Tobacco Use No 12/09/24 10:19 Years Smoking Packs Smoked per Day Smoking Cessation Date was within the last 15 years Hx Smoking Cessation Date Hx Smoking Cessation Counseling Hematologic Medial History Hematologic Hx - 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 Medical Records Department [address] [place] [address] History & Physical Exam 12/11/24 1250 MR#: [id number] Acct: [id number] Name: DIANE CONNORS Rep #:[id number] : 1985 39 From: Denys Babin DO PCP: AGUILAR Giles Status:REG S DC Location: [place] [address] HPI - General General Date of Admission: 12/11/24 Date of Service: 12/11/24 Chief Complaint: stent removal HPI Narrative DIANE CONNORS, is a 39 M who presents for biliary stent removal. [facility] inpatient 12.6.24-12.9.24- Choledocholithiasis with severe jaundice, small gall stone removed from bile duct. MRCP only found cholelithiasis and a biliary stent in place. Pt was referred to general surgery for poss. cholecystectomy. Ptstates he is well since the hospital visit. Is not having any abdominal pain, loss of appetite, fatigue or changes in bowels. [facility] Medical History Overweight (BMI 25.0-29.9) No [...] CC: AGUILAR Arias; Denys Friend, DO~ Signed [facility]03-14-2025 [facility]12-09-2024 [facility]12-06-2024 Evaluation note* Diagnosis Onset Date Resolution [...] 2024 12:28pm Jaundice acute December 11 12:28pm [facility] Work Phone: 1(696) 683-742812-06-2024 Evaluation note* Diagnosis Onset Date Resolution Status [...] 2:45pm Hyperbilirubinemia acute December 14, 2024 2:45pm [facility] Work Phone: 1(680) 141-125112-06-2024 Evaluation note* Diagnosis Onset Date Resolution Status [...] 2:45pm Choledocholithiasis resolved December 14, 2024 2:45pm [facility] Work Phone: 1(329) 776-406812-06-2024 Evaluation note* Diagnosis Onset Date Resolution Status [...] 2024 10:55am Jaundice acute December 31 10:55am [facility] Work Phone: 1(455) 903-183012-06-2024 Consult note Author Rafael Hooper [facility] Note Date/Time December 11, 2024 4:1 0pm [facility] Medical Records Department [address] [place] [address] Anesthesia Postop Eval II 12/11/24 1520 MR#: [id number] Acct: [id number] Name: DOROTHY CONNORSNereida Norwood Rep #:[id number] : 1985 39 From: Rafael Hooper MD PCP: AGUILAR Giles Status:REG S DC Y Race: C Location: [place] [address] Anesthesia Postop Eval I Sum Postop Eval [...] MD Cosigner Signature: Date CC: ~ Signed [facility] Work Phone: 1(802) 807-916511-13-2024 Note ORIGINAL EXAMINATION: LIMITED ABDOMINAL [id number]/13/2024 8:11 am Limited ultrasound of the abdomen [...] Date: 08/12/2024 9:46:00 AM [facility] Evaluation + Plan note Future Scheduled Tests Laboratory* Amylase Level 08/05/24 * Lipase Level 08/05/24 * Complete Blood Count 08/05/24 * Lipid Profile 01/29/24 * Complete Metabolic Panel 08/05/24 * Complete Metabolic Panel 01/29/24 Radiology* US Abdomen Limited 08/10/24 [facility] 09-10-2024 Note ORIGINAL EXAMINATION: CT OF THE [...] Date: 06/09/2024 12:42:25 PM Ordering Provider[facility] Note ORIGINAL EXAMINATION: ULTRASOUND OF THE SCROTUM/TESTICLES [...] Date: 03/27/2024 3:12:22 PM Ordering Provider[facility] Evaluation + Plan note Future Scheduled Tests Laboratory* Lipid Profile 01/29/24 * Complete Metabolic Panel 01/29/24 [facility] 05-01-2024 Evaluation + Plan note Future Scheduled Tests Laboratory* Lipid Profile 01/29/24 * Complete Metabolic Panel 01/29/24 Radiology* US Pelvis Non-OB Complete 06/11/24 [facility] Consult note Author Hipolito Rasheed [facility] Note Date/Time December 11, 2024 2:2 7pm [facility] Medical Records Department [address] [place] [address] Anesthesia Postop Eval I 12/11/24 1426 MR#: [id number] Acct: [id number] Name: DIANE CONNORS Enma Rep #:[id number] : 1985 39 From: Hipolito Rasheed PCP: Shira Arias NP-C Status:REG S DC Y Race: C Location: [place] [address] Anesthesia: Postop Eval I Current Vital Signs [...] Hipolito Marrero Signature: Date CC: ~ Signed [facility] Work Phone: Consult note Author Jared [facility] Note Date/Time December 16, 2024 4:1 7pm [facility] Medical Records Department [address] [place] [address] Consultation - Infectious Dx 12/16/24 1613 MR#: [id number] Acct: [id number] Name: KENNEY CONNORSDAMIÁN [place]wood Rep #:[id number] : 1985 39 From: Jared melendrez MD PCP: Shira Arias [employer] CHECKER-C Status:ADM I N Location: [place] [address] Assessment & Plan Assessment/Plan (1) Bacteremia due to Gram-negative bacteria: PLAN: Feeling better on zosyn. Had ERCP 3/14, then again 12/15/[address] Babin for [...] performed and neg except as noted above. [facility] Medical History Overweight (BMI 25.0-29.9) No [...] % (Auto) 61.0, Lymph % (Auto) 20.8, 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 Reading Location: [facility] 12/16/24 1617 <Electronically signed by Jared Arevalo MD> Cosigner Signature (if applicable): CC: AGUILAR Arias~ Signed [facility] Work Phone: Consult note Author Hipolito Rasheed [facility] Note Date/Time May 03, 2025 1:4 2pm [facility] Medical Records Department [address] [place] [address] Anesthesia Postop Eval I 05/03/25 1341 MR#: [id number] Acct: [id number] Name: DIANE CONNORS Rep #:[id number] : 1985 39 From: Hipolito Rasheed PCP: AGUILAR Giles Status:REG S DC Y Race: C Location: [place] [address] Anesthesia: Postop Eval I Current Vital Signs [...] by Hipolito Rasheed > Date _ Hipolito Rasheed Cosigner Signature: Date CC: ~ Signed [facility] Work Phone: Consult note Author Rafael [facility] Note Date/Time May 03, 2025 2:0 3pm [facility] Medical Records Department [address] [place] [address] Anesthesia Postop Eval II 05/03/25 1349 MR#: [id number] Acct: [id number] Name: DIANE CONNORS Rep #:[id number] : 1985 39 From: Rafael Hooper MD PCP: AGUILAR Giles Status:REG S DC Y Race: C Location: [place] [address] Anesthesia Postop Eval I Sum Postop Eval [...] MD Cosigner Signature: Date CC: ~ Signed [facility] Work Phone: Evaluation + Plan note Future Appointments Appointment Date:06/11/2024 09:00:00 AM Scheduled Provider:CAYLA HOOPER Location:UROLOGY Appointment Type:URO OV Future Scheduled Tests Laboratory* Lipid Profile 01/29/24 * Complete Metabolic Panel 01/29/24 [facility] History and physical note [facility] Note Date/Time December 14, 2024 3:1 2pm [facility] Medical Records Department [address] [place] [address] H&P Exam - Hospitalist 12/14/24 2387 MR#: [id number] Acct: [id number] Name: DIANE CONNORS Enma Rep #:[id number] : 1985 39 From: Cruz esposito DO PCP: AGUILAR Giles Status:REG E R Location: ED HPI - General General Date of Admission: 12/14/24 Date of Service: 12/14/24 Chief Complaint: Fevers and chills HPI Narrative DIANE CONNORS, is a 39 M who presented to [facility] ED on 12/14/2024 with fevers and [...] any other acute concerns at this time. [facility] Medical History Overweight (BMI 25.0-29.9) No [...] 90.5 H, Lymph % (Auto) 3.2 L, [place] % (Auto) 4.7, Eos % (Auto) 0.1, [...] Clarity Clear, Urine pH 7.0, Ur Specific [place] 1.005, Urine Protein 30 H, Urine Glucose [...] the head of the pancreas. Reading Location: [facility]1 Chest X-Ray 12/14/24 12:19 IMPRESSION: 1. Mild left basilar airspace disease favorable for atelectasis/scarring howeverthis is not definite in the absence of prior exams to confirm stability. Correlate for mild pneumonia. 2. Additional description as above. Reading Location: [facility] Assessment & Plan Assessment/Plan (1) Hyperbilirubinemia: (2) Elevation of levels of liver transaminase levels: PLAN: Plan Patient is a 39-year-old male who presented to [facility] ED on 12/14/2024 with fevers and chills after recent ERCP. 1. 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 Admit under inpatient status to [facility]. GI consulted. See HPI for further [...] 55 minutes. Charges/Coding Visit Charges Inpatient E&M: 54758 Init Hosp L2 12/14/24 1512 <Electronically signed by Cruz Arciniega DO> Cosigner Signature (if applicable): CC: AGUILAR Arias; Dr. Cruz Arciniega DO~ Signed [facility] Work Phone: History and physical note Author Denys Babin [facility] Note Date/Time May 03, 2025 12: 49pm [facility] Medical Records Department [address] [place] [address] History & Physical Exam 05/03/25 1247 MR#: [id number] Acct: [id number] Name: DIANE CONNORS Rep #:[id number] : 1985 39 From: Denys Babin DO PCP: AGUILAR Giles Status:REG S DC Location: [place] [address] HPI - General General Date of Admission: 05/03/25 Date of Service: 05/03/25 Chief Complaint: Biliary stent removal HPI Narrative DIANE CONNORS, is a 39 M who presents today for ERCP with stent removal. Patient recently underwent ERCP with stone removal and stent placement. Last month he underwent elective cholecystectomy. Patient is doing well after procedure. He comes back in for stent removal. [facility] Medical History Bacteremia due to Gram-negative bacteria [...] is a 39-year-old male who presented to [facility] ED on 12/14/2024 with fevers and [...] CC: AGUILAR Arias; Denys Babin DO~ Signed [facility] Work Phone: History and physical note Author Eileen Brunson [facility] Note Date/Time May 05, 2025 2:[address] [facility] Medical Records Department [address] [place] [address] H&P Exam - Hospitalist 05/05/25 0150 MR#: [id number] Acct: [id number] Name: DIANE CONNORS Rep #:[id number] : 1985 39 From: Eileen Brunson MD PCP: AGUILAR Giles Status:REG E R Location: ED HPI - General General Date of Admission: 05/05/25 Date of Service: 05/05/25 Chief Complaint: Fever HPI Narrative The patient is a 39 yo M w/ PMHx: Hx Obesity, Recurrent choledocholithiasis withcholangitis with severe chronic cholecystitis status post 03/17/2025 subtotal laparoscopic cholecystectomy with a fenestrating type drain placed with primary repair of umbilical hernia, recently noted 05/03/25 outpatient laparoscopic cholecystectomy scheduled however during the course of the operation he had severe evidence of chronic cholecystitis precluding a clear view of the biliary anatomy therefore a subtotal cholecystectomy was performed with a drain placement who now re-presents to the [facility] ED on 05/05/25 with history of onset fevers starting over the last 24 hours prompting ED evaluation. He denies any associated abdominal pain, nausea or emesis. He does report also having had chills. From review of records patient 05/03/25 ERCP with the upper GI tract grossly normal with a single localized biliary stricture found in the middle third of the main bile duct likely postsurgical with specimen cytologically taken, left and right hepatic ducts and all intrahepatic branches markedly dilated, status postcholecystectomy evident, choledocholithiasis evident, complete removal accomplished by biliary sphincterotomy and balloon extraction, biliary sphincterotomy performed, 1 stent removed from the biliary tree with cells obtained for cytology in the middle third of the main bile duct. Workup inthe ED included T1 100.5, heart rate 134, BP 94/70, respiratory rate 18, 95% on room air with most recent repeat vitals T99.5, heart rate 103, BP 107/67, respiratory rate 20, 95% on room air, CBC with WC 9.6, hemoglobin 15.5, [id number] with left shift and lymphopenia, CMP with complex at 20.9, glucose 134, lactic acid 1.1, T. bili 4.25, D bili 3.03, AST/ALT 493/883, alk phos 158, lipase 55, procalcitonin 0.75, CT abdomen pelvis with IV contrast only with suspected cholecystitis with possible gallbladder perforation, dilated biliary tree, cholangitis and choledocholithiasis. In the ED patient administered toradol 30 mg IV x 1, Zosyn 3.375 gm IV x 1, 1L NS. ED discussed case with Dr. Babin and also with Dr. Lopez who noted no intention of further surgical intervention following CT review and that these findings of possible GB performation s/p prior partial cholecystectomy were an expected finding. [facility] Medical History Bacteremia due to Gram-negative bacteria Drug-induced liver injury Jaundice History of biliary stent insertion Elevation of levels of liver transaminase levels Hyperbilirubinemia Overweight (BMI 25.0-29.9) No pertinent past medical history Home Medications ?Medication ?Instructions ?Recorded ?Last Taken ?Type NK 05/05/25 Unknown History Allergy/AdvReac Type Severity Reaction Status Date / Time No Known Allergies Allergy Verified 05/04/25 23:20 Family History Mother No problems noted. Father No problems noted. Surgical History Hx laparoscopic cholecystectomy History of ERCP Social History (Updated 05/05/25 @ 01:[address] Eileen Brunson MD) household members: spouse Smoking Status: Never smoker alcohol intake: never substance use type: does not use ROS ROS Narrative Admission Review of Systems: CONSTITUTIONAL: No weight loss, + fever, chills, weakness or fatigue. HEENT: Eyes: No visual loss, blurred vision, double vision or yellow sclerae. Ears, Nose, Throat: No hearing loss, sneezing, congestion, runny nose or sore throat. SKIN: No rash or itching, lesions, wounds. CARDIOVASCULAR: No chest pain, chest pressure or chest discomfort, palpitations,edema, orthopnea, syncopal events. RESPIRATORY: No shortness of breath, cough or sputum, wheezing, hemoptysis. GASTROINTESTINAL: No anorexia, nausea, vomiting or diarrhea, abdominal pain, melena, BRBPR. GENITOURINARY: No dysuria, frequency, urgency or retention. NEUROLOGICAL: No headache, dizziness, syncope, paralysis, ataxia, numbness or tingling in the extremities, focal weakness, change in bowel or bladder control,seizure. MUSCULOSKELETAL: No muscle, back pain, joint pain or stiffness. HEMATOLOGIC: No anemia, bleeding or bruising. LYMPHATICS: No enlarged nodes. No history of splenectomy. PSYCHIATRIC: No history of depression or anxiety. ENDOCRINOLOGIC: No reports of sweating, cold or heat intolerance. No polyuria orpolydipsia. ALLERGIES: No history of asthma, hives, eczema or rhinitis. Vital Signs Vital Signs Vital Signs: 05/04/25 23:21 05/04/25 23:24 05/05/25 00:24 Temperature 100.5 F H 100.5 F H 99.5 F H Temperature Source Oral Oral Oral Pulse Rate 134 H 134 H 106 H Respiratory Rate 18 18 18 Respiratory Effort Respiratory Pattern Blood Pressure 94/70 94/70 114/71 Blood Pressure Mean 78 78 85 Pulse Ox 95 95 96 Oxygen Delivery Method Room Air Room Air Room Air 05/05/25 01:00 05/05/25 01:00 05/05/25 01:16 Temperature 99.5 F H Temperature Source Oral Pulse Rate 100 103 H Respiratory Rate 20 H Respiratory Effort Normal Respiratory Pattern Normal Blood Pressure 107/67 107/67 Blood Pressure Mean 80 80 Pulse Ox 95 95 Oxygen Delivery Method Room Air Room Air Weight Weight: 207 lb 14.4 oz Body Mass Index (BMI) 29.8 Physical Exam Narrative Physical Examination: General: Awake, alert, oriented x 3 and cooperative, laying in the bed, fatigued, ill-appearing. Skin: Normal turgor, no icterus, no cyanosis, no significant severe jaundiced appearance noted despite LFT/bilirubin levels. HEENT: AT/NC, EOMI, PERRLA, moderately dry MM, no carotid bruits or JVD noted. Lungs: CTA bilaterally, moderate effort, mild decrease BL bases, no rales, ronchi or wheezing. Heart: Regular rate and rhythm; no gallop, rub audible. Abdomen: Soft, NTTP, ND, hyperactive BS, no HSM. Extremities: No cyanosis, clubbing, or edema. Neurological: Patient awake, alert, oriented x 3, cognitive function intact; pupils equally reactive to light and accommodation, cranial nerves grossly normal, moving all 4 extremities, no focal deficits, strength preserved. Psychiatric: Affect appears fatigued, ill-appearing, no acute evidence of depressive or anxiety feelings. Results Lab / Micro Data 05/04/25 23:30 05/04/25 23:30 Labs: Laboratory Results - last 24 hr 05/04/25 23:30: WBC 9.6, RBC 5.17, Hgb 15.5, Hct 44.6, MCV 86.3, MCH 30.0, MCHC 34.8, RDW Std Deviation 39.7, RDW Coeff of Joanne 12.6, Plt Count 182, MPV 9.1, Immature Gran % (Auto) 0.900, Neut % (Auto) 91.5 H, Lymph % (Auto) 3.4 L, [place] %(Auto) 4.1, Eos % (Auto) 0.0, Baso % (Auto) 0.1, Absolute Neuts (auto) 8.8 H, Absolute Lymphs (auto) 0.33 L, Nucleated RBC % 0, Sodium 138, Potassium 3.4, Chloride 103, Carbon Dioxide 20.9 L, Anion Gap 14, BUN 12, Creatinine 1.07, Estim Creat Clear Calc 104.76, Est GFR (MDRD) Non-Af 89, BUN/Creatinine Ratio 10.8, Glucose 134 H, Lactic Acid 1.1, Calcium 9.1, Total Bilirubin 4.25 H, Direct Bilirubin 3.03 H, AST 493 H, ALT 883 H, Alkaline Phosphatase 158 H, Total Protein 6.8, Albumin 4.2, Globulin 2.6, Lipase 55, Procalcitonin 0.75 H Imaging Radiology Impression Abdomen/Pelvis CT 05/04/25 23:50 IMPRESSION: Suspected cholecystitis possibly with gallbladder perforation. Dilated biliary tree, cholangitis, and choledocholithiasis. Follow up imaging as clinically determined. Reading Location: [place] [address] Assessment & Plan Assessment/Plan (1) Choledocholithiasis with acute cholecystitis: PLAN: Plan The patient is a 39 yo M w/ PMHx: Hx Obesity, Recurrent choledocholithiasis withcholangitis with severe chronic cholecystitis status post 03/17/2025 subtotal laparoscopic cholecystectomy with a fenestrating type drain placed with primary repair of umbilical hernia, recently noted 05/03/25 outpatient laparoscopic cholecystectomy scheduled however during the course of the operation he had severe evidence of chronic cholecystitis precluding a clear view of the biliary anatomy therefore a subtotal cholecystectomy was performed with a drain placement who now re-presents to the [facility] ED on 05/05/25 with history of onset fevers starting over the last 24 hours prompting ED evaluation. #1. Recurrent Acute Choledocholithiasis with significant hyperbilirubinemia andacute transaminitis with Acute Cholecystitis status post previous partial cholecystectomy diverted secondary to precluded clear view of biliary anatomy: Will admit to PCU given stable vital signs however in the past patient had been significantly ill thus we will maintain the telemetry to be cautious, we will continue aggressive IV fluids, will maintain on IV Zosyn, gastroenterology and general surgery consulted, will continue to trend CBC, CMP, maintain n.p.o. status, maintain on IV PPI. #2. Obesity: Weight loss and lifestyle changes encouraged. #3. DVT prophylaxis: SCDs, hold hemoprophylaxis given planned intervention. Charges/Coding Visit Charges Inpatient E&M: 39861 Init Hosp L2 05/05/25 0209 <Electronically signed by Eileen Brunson MD> Cosigner Signature (if applicable): CC: AGUILAR Arias; Dr. Eileen Brunson MD~ Signed [facility] Work Phone: Hospital course Narrative No data available for this section [facility] Hospital Discharge instructions No data available for this section [facility] Progress note No data available for this section [facility] Summary Purpose Family History No Family History Records Found Advance Directives Advance Directive Response Recorded Date/ Time Living Will Yes December 09, 2024 10:19am Power of Process Architect Yes December 09 10:19am Name of Medical Power of Process Architect OLGA December 09, 2024 10:19am Living Will No September 04 10:48pm Power of Process Architect No 2024 10:48pm Advance Directive Response Recorded Date/ Time Living Will Yes December 09, 2024 10:19am Power of Process Architect Yes December 09 10:19am Name of Medical Power of Process Architect OLGA December 09, 2024 10:19am Living Will No December 14, 2024 11:02am Power of Process Architect No December 14 11:02am Living Will No September 04 10:48pm Power of Process Architect No 2024 10:48pm Advance Directive Response Recorded Date/ Time Living Will Yes December 09, 2024 10:19am Do you have a Healthcare Power of Process Architect? Yes December 09, 2024 10:19am Name of Medical Power of Process Architect OLGA December 09, 2024 10:19am Living Will Yes December 14, 2024 4:44pm Do you have a Healthcare Power of Process Architect? Yes December 14, 2024 4:44pm Name of Medical Power of Process Architect Olga Connors December 14, 2024 4:44pm Living Will No September 04 10:48pm Do you have a Healthcare Power of Process Architect? No 2024 10:48pm Advance Directive Response Recorded Date/ Time Living Will Yes December 09, 2024 10:19am Do you have a Healthcare Power of Process Architect? Yes December 09, 2024 10:19am Name of Medical Power of Process Architect OLGA December 09, 2024 10:19am Living Will Yes December 14, 2024 4:44pm Do you have a Healthcare Power of Process Architect? Yes December 14, 2024 4:44pm Name of Medical Power of Process Architect Olga Connors December 14, 2024 4:44pm Advance Directive Response Recorded Date/ Time Living Will Yes December 09, 2024 10:19am Do you have a Healthcare Power of Process Architect? Yes December 09, 2024 10:19am Name of Medical Power of Process Architect OLGA December 09, 2024 10:19am Living Will Yes December 14, 2024 4:44pm Do you have a Healthcare Power of Process Architect? Yes December 14, 2024 4:44pm Name of Medical Power of Process Architect Olga Connors December 14, 2024 4:44pm Do you have a Healthcare Power of Process Architect? No March 17, 2025 8:10pm Advance Directive Response Recorded Date/ Time Do you have a Healthcare Power of Process Architect? No March 17, 2025 8:10pm Do you have a Healthcare Power of Process Architect? No April 27, 2025 3:02pm Advance Directive Response Recorded Date/ Time Do you have a Healthcare Power of Process Architect? No March 17, 2025 8:10pm Do you have a Healthcare Power of Process Architect? No April 27, 2025 3:02pm Do you have a Healthcare Power of Process Architect? Yes May 05, 2025 1:16am Chief Complaint and Reason for Visit Chief Complaint Admit Date CHOLEDOCHLITHIASIS WITH SEVERE JAUNDICE 2024 9:07pm CHOLEDOCHLITHIASIS WITH SEVERE JAUNDICE 2024 10:03pm ERCP PROTOTCOL September 05, 2024 1 1:11am CHOLEDOCHLITHIASIS WITH SEVERE JAUNDICE September 05, 2024 11:36am CHOLEDOCHLITHIASIS WITH SEVERE JAUNDICE September 06, 2024 12:07pm CHOLEDOCHLITHIASIS WITH SEVERE JAUNDICE September 07, 2024 8:33am CHOLEDOCHLITHIASIS WITH SEVERE JAUNDICE September 07, 2024 11:32am [facility] Jaundice August 7:58am INT LABS [...] WITH SEVERE JAUNDICE September 07, 2024 11:32am [facility] Jaundice August 7:58am INT LABS [...] FEVERS December 16, 2024 2: 13pm GALLBLADDER, [facility] December 31, 2024 9:50 am [facility] December 31, 2024 10:5 5am INT ORDER [...] FEVERS December 16, 2024 2: 13pm GALLBLADDER, [facility] FU December 31, 2024 9:50 am [...] CHECK FOR BILE LEAKS AND DUCT PATENCY 2024 8:02am DEXTER TUBE REMOVAL March 31, [...] FEVERS December 16, 2024 2: 13pm GALLBLADDER, [facility] December 31, 2024 9:50 am [...] FOR BILE LEAKS AND DUCT PATENCY Ju 2024 8:02am DEXTER TUBE REMOVAL March 31, [...] 11:31am Hyperbilirubinemia May 03, 2025 11: 31am Chief Complaint Admit Date K80.80 R53.83 January [...] LAP DEXTER April 07, 2025 2:29p m fever May 05, 2025 1:5 0am fever May 05, 2025 2:1 4am Reason for Visit Admit Date Status post laparoscopic cholecystectomy March 17, 2025 3:40pm Status post laparoscopic cholecystectomy March 25, 2025 1:05pm Cholecystitis March 31, 2025 1:58p m Status post laparoscopic cholecystectomy March 31, 2025 1:58pm Status post laparoscopic cholecystectomy April 07, 2025 2:29pm Elevation of levels of liver transaminas e levels May 03, 2025 11:31am Hyperbilirubinemia May 03, 2025 11: 31am Choledocholithiasis with acute cholecyst itis May 05, 2025 2:14am Additional Source Comments Patient Care team informatio n (unrecognized section and content) Team Status: Active Member Role Status Dates Shira Arias PARIMUTUEL TICKET CHECKER, PARIMUTUEL TICKET CHECKER-C Primary Care Provider Active Team Status: Active Member Role Status Dates Shira Arias PARIMUTUEL TICKET CHECKER, PARIMUTUEL TICKET CHECKER-C Primary Care Provider Active Start: December 11, 2024 Dr. Pedro Lopez MD Attending Provider Active Start: December 11, 2024 Dr. Pedro Lopez MD Referring Provider Active Start: December 11, 2024 Team Status: Inactive Member Role Status Dates Shira Arias PARIMUTUEL TICKET CHECKER, PARIMUTUEL TICKET CHECKER-C Primary Care Provider Active Start: December 11, 2024 End: December 11, 2024 Shira Arias NP, PARIMUTUEL TICKET CHECKER-C Referring Provider Active Start: December 11, 2024 End: December 11, 2024 Dr. Denys Babin DO Attending Provider Active Start: December 11, 2024 End: December 11, 2024 Team Status: Active Member Role Status Dates Shira Arias NP, PARIMUTUEL TICKET CHECKER-C Primary Care Provider Active Start: December 11, 2024 Shira Arias NP, PARIMUTUEL TICKET CHECKER-C Referring Provider Active Start: December 11, 2024 Dr. Denys Babin DO Attending Provider Active Start: December 11, 2024 Dr. Denys Babin DO Other Provider Active St art: December 11, 2024 Team Status: Active Member Role Status Dates Shira Arias NP, PARIMUTUEL TICKET CHECKER-C Primary Care Provider Active Start: December 11, 2024 End: December 11, 2024 Dr. Jose Lubin MD Attending Provider Active S tart: December 11, 2024 End: December 11, 2024 Dr. Denys Babin DO Referring Provider Active Start: December 11, 2024 End: December 11, 2024 Team Status: Inactive Member Role Status Dates Shira Arias NP, PARIMUTUEL TICKET CHECKER-C Primary Care Provider Active Start: December 14, [...] Active Member Role Status Dates Shira Arias PARIMUTUEL TICKET CHECKER, PARIMUTUEL TICKET CHECKER-C Primary Care Provider Active Start: December 15, [...] Member Role Status Dates Shira Arias NP, PARIMUTUEL TICKET CHECKER-C Primary Care Provider Active Start: December 15, [...] Member Role Status Dates Shira Arias NP, PARIMUTUEL TICKET CHECKER-C Primary Care Provider Active Start: December 16, [...] Member Role Status Dates Shira Arias NP, PARIMUTUEL TICKET CHECKER-C Primary Care Provider Active Start: December 16, 2024 Dr. Petar Barrera , Emergency Provider Active Start: December 16, 2024 [...] Inactive Member Role Status Dates Shira Arias PARIMUTUEL TICKET CHECKER, PARIMUTUEL TICKET CHECKER-C Primary Care Provider Active Start: December 31, 2024 End: December 31, 2024 Shira Arias PARIMUTUEL TICKET CHECKER, PARIMUTUEL TICKET CHECKER-C Referring Provider Active Start: December 31, 2024 End: December 31, 2024 Dr. Camron Shoemaker MD Attending Provider Active Start: December 31, 2024 End: December 31, 2024 Team Status: Inactive Member Role Status Dates Shria Arias PARIMUTUEL TICKET CHECKER, PARIMUTUEL TICKET CHECKER-C Primary Care Provider Active Start: December 31, 2024 End: December 31, 2024 Shira Arias NP, PARIMUTUEL TICKET CHECKER-C Referring Provider Active Start: December 31, 2024 End: December 31, 2024 Cayla Quiñonez NP-C Attending Provider Active Start: December 31, 2024 End: December 31, 2024 Team Status: Inactive Member Role Status Dates Shira Arias PARIMUTUEL TICKET CHECKER, PARIMUTUEL TICKET CHECKER-C Primary Care Provider Active Start: December 31, 2024 End: December 31, 2024 Cayla Quiñonez PARIMUTUEL TICKET CHECKER-C Attending Provider Active Start: December 31, 2024 End: December 31, 2024 Cayla Quiñonez PARIMUTUEL TICKET CHECKER-C Referring Provider Active Start: December 31, 2024 End: December 31, 2024 Team Status: Active Member Role Status Dates Shira Juana PARIMUTUEL TICKET CHECKER, PARIMUTUEL TICKET CHECKER-C Primary Care Provider Active Start: January 05, 2025 Michela Aye Sal PARIMUTUEL TICKET CHECKER, PARIMUTUEL TICKET CHECKER-C Attending Provider Active Start: January 05, 2025 Michela Aye Omerener PARIMUTUEL TICKET CHECKER, PARIMUTUEL TICKET CHECKER-C Referring Provider Active Start: January 05, 2025 Team Status: Inactive Member Role Status Dates Shira Juana PARIMUTUEL TICKET CHECKER, PARIMUTUEL TICKET CHECKER-C Primary Care Provider Active Start: February 24, 2025 End: February 24, 2025 Michela Aye Sal PARIMUTUEL TICKET CHECKER, PARIMUTUEL TICKET CHECKER-C Attending Provider Active Start: February 24, 2025 End: February 24, 2025 Michela Aye Sal PARIMUTUEL TICKET CHECKER, PARIMUTUEL TICKET CHECKER-C Referring Provider Active Start: February 24, 2025 End: February 24, 2025 Team Status: Inactive Member Role Status Dates Shira Juana PARIMUTUEL TICKET CHECKER, PARIMUTUEL TICKET CHECKER-C Primary Care Provider Active Start: 2024 End: September 07, 2024 Dr. Rod Ross , Emergency Provider Active Start : 2024 End: September 07, 2024 Dr. Seth Paiz , DO Admit Provider Active Start: 2024 End: September 07, 2024 Dr. Steh Paiz , Other Provider Active Start: 2024 End: September 07, 2024 Dr. Edwina Kimball , Attending Provider Active S tart: 2024 End: September 07, 2024 Dr. Cruz Arciniega , Other Provider Active Start: 2024 End: September 07, 2024 Team Status: Active Member Role Status Dates Shira Arias NP, PARIMUTUEL TICKET CHECKER-C Primary Care Provider Active Start: 2024 Dr. [...] Member Role Status Dates Shira Arias NP, PARIMUTUEL TICKET CHECKER-C Primary Care Provider Active Start: September 05, 2024 End: September 05, 2024 Dr. Jose Lubin MD Attending Provider Active S tart: September 05, 2024 End: September 05, 2024 Dr. Jose Lubin MD Referring Provider Active S tart: September 05, 2024 End: September 05, 2024 Team Status: Active Member Role Status Dates Shira Arias PARIMUTUEL TICKET CHECKER, PARIMUTUEL TICKET CHECKER-C Primary Care Provider Active Start: September 05, [...] Active Member Role Status Dates Shira Arias PARIMUTUEL TICKET CHECKER, PARIMUTUEL TICKET CHECKER-C Primary Care Provider Active Start: September 05, 2024 Dr. Denys Babin , DO Attending Provider Active Start: September 05, 2024 Dr. Seth Paiz , DO Referring Provider Active Start: September 05, 2024 Team Status: Active Member Role Status Dates Shira Arias PARIMUTUEL TICKET CHECKER, PARIMUTUEL TICKET CHECKER-C Primary Care Provider Active Start: September 06, [...] Active Member Role Status Dates Shira Arias PARIMUTUEL TICKET CHECKER, PARIMUTUEL TICKET CHECKER-C Primary Care Provider Active Start: September 07, [...] Active Member Role Status Dates Shira Arias PARIMUTUEL TICKET CHECKER, PARIMUTUEL TICKET CHECKER-C Primary Care Provider Active Start: September 07, 2024 Dr. Rod Ross DO Emergency Provider Active Start : September 07, 2024 Dr. Seth Paiz , DO Admit Provider Active Start: September 07, 2024 Dr. Seth Paiz , Other Provider Active Start: September 07, 2024 Dr. Edwina Kimball DO Attending Provider Active S tart: September 07, 2024 Dr. Edwina Kimball , DO Other Provider Active Start : September 07, 2024 Dr. Cruz Arciniega , Other Provider Active Start: September 07, 2024 Team Status: Inactive Member Role Status Dates Shira Arias PARIMUTUEL TICKET CHECKER, PARIMUTUEL TICKET CHECKER-C Primary Care Provider Active Start: September 11, 2024 End: September 11, 2024 Shira Arias PARIMUTUEL TICKET CHECKER, PARIMUTUEL TICKET CHECKER-C Referring Provider Active Start: September 11, 2024 End: September 11, 2024 Dr. Francesco Lui MD Attending Provider Active Start: September 11, 2024 End: September 11, 2024 Team Status: Inactive Member Role Status Dates Shira Arias PARIMUTUEL TICKET CHECKER, PARIMUTUEL TICKET CHECKER-C Primary Care Provider Active Start: September 11, 2024 End: September 11, 2024 Dr. Francesco Lui MD Attending Provider Active Start: September 11, 2024 End: September 11, 2024 Dr. Francesco Lui MD Referring Provider Active Start: September 11, 2024 End: September 11, 2024 Team Status: Active Member Role Status Dates Shira Arias PARIMUTUEL TICKET CHECKER, PARIMUTUEL TICKET CHECKER-C Primary Care Provider Active Start: December 14, 2024 Dr. Petar Barrera DO Emergency Provider Active Start: December 14, 2024 Dr. Cruz Arciniega DO Admit Provider Active Start: December 14, 2024 Dr. Cruz Arciniega DO Attending Provider Active Start: December 14, 2024 Team Status: Active Member Role Status Dates Shira Arias PARIMUTUEL TICKET CHECKER, PARIMUTUEL TICKET CHECKER-C Primary Care Provider Active Start: December 15, [...] Active Member Role Status Dates Shira Arias PARIMUTUEL TICKET CHECKER, PARIMUTUEL TICKET CHECKER-C Primary Care Provider Active Start: December 16, [...] Member Role Status Dates Shira Arias NP, PARIMUTUEL TICKET CHECKER-C Primary Care Provider Active Start: March 08, 2025 End: March 08, 2025 Dr. Camron Redd MD Attending Provider Active Start: March 08, 2025 End: March 08, 2025 Dr. Camron Shoemaker MD Referring Provider Active Start: March 08, 2025 End: March 08, 2025 Team Status: Active Member Role Status Dates Shira Arias NP, PARIMUTUEL TICKET CHECKER-C Primary Care Provider Active Start: March 17, 2025 Dr. Camron Shoemaker MD Attending Provider Active Start: March 17, 2025 Dr. Camron Shoemaker MD Referring Provider Active Start: March 17, 2025 Dr. Camron Shoemaker MD Other Provider Active Sta rt: March 17, 2025 Dr. Gray López MD Other Provider Active Star t: March 17, 2025 Team Status: Inactive Member Role Status Dates Shira Arias PARIMUTUEL TICKET CHECKER, PARIMUTUEL TICKET CHECKER-C Primary Care Provider Active Start: March 17, [...] Active Member Role Status Dates Shira Arias PARIMUTUEL TICKET CHECKER, PARIMUTUEL TICKET CHECKER-C Primary Care Provider Active Start: March 18, [...] Inactive Member Role Status Dates Shira Arias PARIMUTUEL TICKET CHECKER, PARIMUTUEL TICKET CHECKER-C Primary Care Provider Active Start: March 25, 2025 End: March 25, 2025 Shira Arias PARIMUTUEL TICKET CHECKER, PARIMUTUEL TICKET CHECKER-C Referring Provider Active Start: March 25, 2025 End: March 25, 2025 Bing YOUNG, PA-C Attending Provider Active Start: March 25, 2025 End: March 25, 2025 Team Status: Active Member Role/Relationship Status Dates Shira Arias PARIMUTUEL TICKET CHECKER, PARIMUTUEL TICKET CHECKER-C Primary Care Provider Active Team Status: Active Member Role/Relationship Status Dates Shira Arias PARIMUTUEL TICKET CHECKER, PARIMUTUEL TICKET CHECKER-C Primary Care Provider Active Start: December 11, 2024 Dr. Pedro Lopez MD Attending Provider Active Start: December 11, 2024 Dr. Pedro Lopez MD Referring Provider Active Start: December 11, 2024 Team Status: Inactive Member Role/Relationship Status Dates Shira Arias PARIMUTUEL TICKET CHECKER, PARIMUTUEL TICKET CHECKER-C Primary Care Provider Active Start: December 11, 2024 End: December 11, 2024 Shira Arias PARIMUTUEL TICKET CHECKER, PARIMUTUEL TICKET CHECKER-C Referring Provider Active Start: December 11, 2024 End: December 11, 2024 Dr. Denys Babin DO Attending Provider Active Start: December 11, 2024 End: December 11, 2024 Team Status: Active Member Role/Relationship Status Dates Shira Arias PARIMUTUEL TICKET CHECKER, PARIMUTUEL TICKET CHECKER-C Primary Care Provider Active Start: December 11, 2024 Shira Arias PARIMUTUEL TICKET CHECKER, PARIMUTUEL TICKET CHECKER-C Referring Provider Active Start: December 11, 2024 Dr. Denys Babin DO Attending Provider Active Start: December 11, 2024 Dr. Denys Babin DO Other Provider Active St art: December 11, 2024 Team Status: Active Member Role/Relationship Status Dates Shira Arias PARIMUTUEL TICKET CHECKER, PARIMUTUEL TICKET CHECKER-C Primary Care Provider Active Start: December 11, 2024 End: December 11, 2024 Dr. Jose Lubin MD Attending Provider Active S tart: December 11, 2024 End: December 11, 2024 Dr. Denys Babin DO Referring Provider Active Start: December 11, 2024 End: December 11, 2024 Team Status: Inactive Member Role/Relationship Status Dates Shira Arias PARIMUTUEL TICKET CHECKER, PARIMUTUEL TICKET CHECKER-C Primary Care Provider Active Start: December 14, [...] Active Member Role/Relationship Status Dates Shira Arias PARIMUTUEL TICKET CHECKER, PARIMUTUEL TICKET CHECKER-C Primary Care Provider Active Start: December 15, [...] Active Member Role/Relationship Status Dates Shira Arias PARIMUTUEL TICKET CHECKER, PARIMUTUEL TICKET CHECKER-C Primary Care Provider Active Start: December 15, [...] Active Member Role/Relationship Status Dates Shira Arias PARIMUTUEL TICKET CHECKER, PARIMUTUEL TICKET CHECKER-C Primary Care Provider Active Start: December 16, [...] Active Member Role/Relationship Status Dates Shira Arias PARIMUTUEL TICKET CHECKER, PARIMUTUEL TICKET CHECKER-C Primary Care Provider Active Start: December 16, [...] Inactive Member Role/Relationship Status Dates Shira Arias PARIMUTUEL TICKET CHECKER, PARIMUTUEL TICKET CHECKER-C Primary Care Provider Active Start: December 31, 2024 End: December 31, 2024 Shira Arias PARIMUTUEL TICKET CHECKER, PARIMUTUEL TICKET CHECKER-C Referring Provider Active Start: December 31, 2024 End: December 31, 2024 Dr. Camron Shoemaker MD Attending Provider Active Start: December 31, 2024 End: December 31, 2024 Team Status: Inactive Member Role/Relationship Status Dates Shira Arias PARIMUTUEL TICKET CHECKER, PARIMUTUEL TICKET CHECKER-C Primary Care Provider Active Start: December 31, 2024 End: December 31, 2024 Shira Arias PARIMUTUEL TICKET CHECKER, PARIMUTUEL TICKET CHECKER-C Referring Provider Active Start: December 31, 2024 End: December 31, 2024 Cayla Quiñonez PARIMUTUEL TICKET CHECKER-C Attending Provider Active Start: December 31, 2024 End: December 31, 2024 Team Status: Inactive Member Role/Relationship Status Dates Shira Arias PARIMUTUEL TICKET CHECKER, PARIMUTUEL TICKET CHECKER-C Primary Care Provider Active Start: December 31, 2024 End: December 31, 2024 Cayla Quiñonez , PARIMUTUEL TICKET CHECKER-C Attending Provider Active Start: December 31, 2024 End: December 31, 2024 Cayla Quiñonez , PARIMUTUEL TICKET CHECKER-C Referring Provider Active Start: December 31, 2024 End: December 31, 2024 Team Status: Active Member Role/Relationship Status Dates Shira Arias PARIMUTUEL TICKET CHECKER, PARIMUTUEL TICKET CHECKER-C Primary Care Provider Active Start: January 05, 2025 Michela Sal PARIMUTUEL TICKET CHECKER, PARIMUTUEL TICKET CHECKER-C Attending Provider Active Start: January 05, 2025 Michela Sal PARIMUTUEL TICKET CHECKER, PARIMUTUEL TICKET CHECKER-C Referring Provider Active Start: January 05, 2025 Team Status: Inactive Member Role/Relationship Status Dates Shira Arias PARIMUTUEL TICKET CHECKER, PARIMUTUEL TICKET CHECKER-C Primary Care Provider Active Start: February 24, 2025 End: February 24, 2025 Michela Sal PARIMUTUEL TICKET CHECKER, PARIMUTUEL TICKET CHECKER-C Attending Provider Active Start: February 24, 2025 End: February 24, 2025 Michela Sal PARIMUTUEL TICKET CHECKER, PARIMUTUEL TICKET CHECKER-C Referring Provider Active Start: February 24, 2025 End: February 24, 2025 Team Status: Active Member Role/Relationship Status Dates Shira Arias PARIMUTUEL TICKET CHECKER, PARIMUTUEL TICKET CHECKER-C Primary Care Provider Active Start: March 08, 2025 End: March 08, 2025 Dr. Camron Redd MD Attending Provider Active Start: March 08, 2025 End: March 08, 2025 Dr. Camron Shoemaker MD Referring Provider Active Start: March 08, 2025 End: March 08, 2025 Team Status: Active Member Role/Relationship Status Dates Shira Arias PARIMUTUEL TICKET CHECKER, PARIMUTUEL TICKET CHECKER-C Primary Care Provider Active Start: March 17, 2025 Dr. Camron Shoemaker MD Attending Provider Active Start: March 17, 2025 Dr. Camron Shoemaker MD Referring Provider Active Start: March 17, 2025 Dr. Camron Shoemaker MD Other Provider Active Sta rt: March 17, 2025 Dr. Gray López MD Other Provider Active Star t: March 17, 2025 Team Status: Inactive Member Role/Relationship Status Dates Shira Arias PARIMUTUEL TICKET CHECKER, PARIMUTUEL TICKET CHECKER-C Primary Care Provider Active Start: March 17, [...] Member Role/Relationship Status Dates Shira Arias NP, PARIMUTUEL TICKET CHECKER-C Primary Care Provider Active Start: March 18, [...] Inactive Member Role/Relationship Status Dates Shira Arias PARIMUTUEL TICKET CHECKER, PARIMUTUEL TICKET CHECKER-C Primary Care Provider Active Start: March 25, 2025 End: March 25, 2025 Shira Arias PARIMUTUEL TICKET CHECKER, PARIMUTUEL TICKET CHECKER-C Referring Provider Active Start: March 25, 2025 End: March 25, 2025 Bing YOUNG PA-C Attending Provider Active Start: March 25, 2025 End: March 25, 2025 Team Status: Active Member Role/Relationship Status Dates Shira Arias PARIMUTUEL TICKET CHECKER, PARIMUTUEL TICKET CHECKER-C Primary Care Provider Active Start: March 30, 2025 Bing Temple PA, PA-C Attending Provider Active Start: March 30, 2025 Bing Temple PA, PA-C Referring Provider Active Start: March 30, 2025 Team Status: Inactive Member Role/Relationship Status Dates Shira Arias PARIMUTUEL TICKET CHECKER, PARIMUTUEL TICKET CHECKER-C Primary Care Provider Active Start: March 31, 2025 End: March 31, 2025 Shira Arias PARIMUTUEL TICKET CHECKER, PARIMUTUEL TICKET CHECKER-C Referring Provider Active Start: March 31, 2025 End: March 31, 2025 Bing Temple PA, PA-C Attending Provider Active Start: March 31, 2025 End: March 31, 2025 Team Status: Inactive Member Role/Relationship Status Dates Shira Arias PARIMUTUEL TICKET CHECKER, PARIMUTUEL TICKET CHECKER-C Primary Care Provider Active Start: March 30, 2025 End: March 30, 2025 Bing Temple PA, PA-C Attending Provider Active Start: March 30, 2025 End: March 30, 2025 Bing Temple PA, PA-C Referring Provider Active Start: March 30, 2025 End: March 30, 2025 Team Status: Inactive Member Role/Relationship Status Dates Shira Arias PARIMUTUEL TICKET CHECKER, PARIMUTUEL TICKET CHECKER-C Primary Care Provider Active Start: April 07, 2025 End: April 07, 2025 Shira Arias PARIMUTUEL TICKET CHECKER, PARIMUTUEL TICKET CHECKER-C Referring Provider Active Start: April 07, 2025 End: April 07, 2025 Bing Temple PA, PA-C Attending Provider Active Start: April 07, 2025 End: April 07, 2025 Team Status: Active Member Role/Relationship Status Dates Shira Arias PARIMUTUEL TICKET CHECKER, PARIMUTUEL TICKET CHECKER-C Primary Care Provider Active Start: January 05, 2025 Michela Sal PARIMUTUEL TICKET CHECKER, PARIMUTUEL TICKET CHECKER-C Attending Provider Active Start: January 05, 2025 Michela Sal PARIMUTUEL TICKET CHECKER, PARIMUTUEL TICKET CHECKER-C Referring Provider Active Start: January 05, 2025 Team Status: Inactive Member Role/Relationship Status Dates Shira Arias PARIMUTUEL TICKET CHECKER, PARIMUTUEL TICKET CHECKER-C Primary Care Provider Active Start: February 24, 2025 End: February 24, 2025 Michela Sal PARIMUTUEL TICKET CHECKER, PARIMUTUEL TICKET CHECKER-C Attending Provider Active Start: February 24, 2025 End: February 24, 2025 Michela Sal PARIMUTUEL TICKET CHECKER, PARIMUTUEL TICKET CHECKER-C Referring Provider Active Start: February 24, 2025 End: February 24, 2025 Team Status: Active Member Role/Relationship Status Dates Shira Arias NP, PARIMUTUEL TICKET CHECKER-C Primary Care Provider Active Start: March 08, 2025 End: March 08, 2025 Dr. Camron Redd MD Attending Provider Active Start: March 08, 2025 End: March 08, 2025 Dr. Camron Shoemaker MD Referring Provider Active Start: March 08, 2025 End: March 08, 2025 Team Status: Active Member Role/Relationship Status Dates Shira Arias PARIM[employer]UEL TICKET CHECKER, PARIMUTUEL TICKET CHECKER-C Primary Care Provider Active Start: March 17, 2025 Dr. Camron Shoemaker MD Attending Provider Active Start: March 17, 2025 Dr. Camron Shoemaker MD Referring Provider Active Start: March 17, 2025 Dr. Camron Shoemaker MD Other Provider Active Sta rt: March 17, 2025 Dr. Gray López MD Other Provider Active Star t: March 17, 2025 Team Status: Inactive Member Role/Relationship Status Dates Shira Arias PARIM[employer]EL TICKET CHECKER, PARIM[employer]UEL TICKET CHECKER-C Primary Care Provider Active Start: March 17, [...] Member Role/Relationship Status Dates Shira Arias NP, [employer]IM[employer]ICK[employer] CHECKER-C Primary Care Provider Active Start: March 18, [...] Inactive Member Role/Relationship Status Dates Shira Arias PARIMUTUEL TICKET CHECKER, PARIMUTUEL TICKET CHECKER-C Primary Care Provider Active Start: March 25, 2025 End: March 25, 2025 Shira Arias PARIMUTUEL TICKET CHECKER, PARIMUTUEL TICKET CHECKER-C Referring Provider Active Start: March 25, 2025 End: March 25, 2025 Bing Temple PA, PA-C Attending Provider Active Start: March 25, 2025 End: March 25, 2025 Team Status: Inactive Member Role/Relationship Status Dates Shira Arias PARIM[employer]UEL TICKET CHECKER, PARIMUTUEL TICKET CHECKER-C Primary Care Provider Active Start: March 30, 2025 End: March 30, 2025 Bing Temple PA, PA-C Attending Provider Active Start: March 30, 2025 End: March 30, 2025 Bing Temple PA, PA-C Referring Provider Active Start: March 30, 2025 End: March 30, 2025 Team Status: Inactive Member Role/Relationship Status Dates Shira Arias PARIM[employer]UEL TICKET CHECKER, PARIMUTUEL TICKET CHECKER-C Primary Care Provider Active Start: March 31, 2025 End: March 31, 2025 Shira Arias PARIMUTUEL TICKET CHECKER, PARIMUTUEL TICKET CHECKER-C Referring Provider Active Start: March 31, 2025 End: March 31, 2025 Bing Temple PA, PA-C Attending Provider Active Start: March 31, 2025 End: March 31, 2025 Team Status: Inactive Member Role/Relationship Status Dates Shira Arias PARIMUTUEL TICKET CHECKER, PARIMUTUEL TICKET CHECKER-C Primary Care Provider Active Start: April 07, 2025 End: April 07, 2025 Shira Arias PARIMUTUEL TICKET CHECKER, PARIMUTUEL TICKET CHECKER-C Referring Provider Active Start: April 07, 2025 End: April 07, 2025 Bing Temple PA, PA-C Attending Provider Active Start: April 07, 2025 End: April 07, 2025 Team Status: Inactive Member Role/Relationship Status Dates Shira Arias PARIMUTUEL TICKET CHECKER, PARIMUTUEL TICKET CHECKER-C Primary Care Provider Active Start: May 03, 2025 End: May 03, 2025 Shira Arias PARIMUTUEL TICKET CHECKER, PARIMUTUEL TICKET CHECKER-C Referring Provider Active Start: May 03, 2025 End: May 03, 2025 Dr. Denys Babin DO Attending Provider Active Start: May 03, 2025 End: May 03, 2025 Team Status: Active Member Role/Relationship Status Dates Shira Arias PARIMUTUEL TICKET CHECKER, PARIMUTUEL TICKET CHECKER-C Primary Care Provider Active Start: May 03, 2025 Shira Arias PARIMUTUEL TICKET CHECKER, PARIMUTUEL TICKET CHECKER-C Referring Provider Active Start: May 03, 2025 Dr. Denys Babin DO Attending Provider Active Start: May 03, 2025 Dr. Denys Friend , DO Other Provider Active St art: May 03, 2025 Team Status: Active Member Role/Relationship Status Dates Shira Arias PARIMUTUEL TICKET CHECKER, PARIMUTUEL TICKET CHECKER-C Primary Care Provider Active Start: May 05, 2025 Dr. Benedict Phillip DO Emergency Provider Active Start: May 05, 2025 Dr. Eileen Brunson MD Attending Provider Active Start: May 05, 2025 Team Status: Active Member Role/Relationship Status Dates Shira Arias NP, PARIM[employer]EL TICK[employer] CHECKER-C Primary Care Provider Active Start: May 05, 2025 Dr. Benedict Phillip , Emergency Provider Active Start: May 05, 2025 Dr. Eileen Brunson MD Admit Provider Active St art: May 05, 2025 Dr. Eileen Brunson MD Attending Provider Active Start: May 05, 2025 (unrecognized sect ion and content) No Status Records FoundNo Status Records FoundNo Status Records FoundNo Status Records Found INFORMATION SOURCE (unrecogn ized section and content) DATE CREATED AUTHOR 05/29/2024 [facility] ([place]) DATE CREATED AUTHOR AUTHOR'S ORGANIZ ATION 08/16/2024 [facility] DATE CREATED AUTHOR AUTHOR'S ORGANIZ ATION 02/05/2025 [facility] DATE CREATED AUTHOR AUTHOR'S ORGANIZ ATION 05/02/2025 [facility] FOR RECORDS PERTAINING TO PATIENTS WHO [...] BE BASED ON THE PRIMARY CLINICAL RECORDS. [facility]. provides no warranty or guarantee of the accuracy or completeness of information in this document.
[2025-05-05] MEDS: 0.9% Normal Saline (1000mL) 1,000 ML 125 ML IV ×2 (03:39→11:31)
[2025-05-05] MEDS: Pantoprazole Sodium 40 MG in 0.9% Normal Saline (100mL MB+) 100 ML 330 MG IV ×3 (03:39→22:04)
[2025-05-05 05:38] LABS: Hematocrit 40.1 % (40-54); Hemoglobin 13.7 g/dL (13.0-16.5); Immature Granulocytes Count 0.060 X10^3/uL (0.0-0.0); Mean Corp Hgb Conc 34.2 g/dL (32-36); Mean Corpuscular Volume 87.6 fL (80-94); Mean Platelet Vol. 9.1 fl (6.2-12.0); NRBC Flagged by Analyzer 0 % (0-5); POSITIVE DIFFERENTIAL YES; Platelet Count 162 K/mm3 (150-450); RBC Distribution Width CV 12.7 % (11.6-14.6); RBC Distribution Width SD 40.6 fl (35.1-43.9); Red Blood Count 4.58 M/mm3 (4.6-6.2); White Blood Count 10.9 K/mm3 (4.4-11.0)
[2025-05-05 06:05] LABS: AST(SGOT) 319 U/L (<=37); Alanine Aminotransfer ALT/SGPT 620 U/L (<=46); Albumin, Serum 3.6 g/dL (3.5-5.0); Alkaline Phosphatase 131 U/L (40-129); Anion Gap 11 (5-15); BUN 11 mg/dL (4-19); BUN/Creat Ratio 9.7 RATIO (10-20); Calcium,Total 8.1 mg/dL (7.6-11.0); Carbon Dioxide 22.3 mmol/L (21.0-32.0); Chloride 107 mmol/L (98-108); Estimated Creatinine Clearance 96.91 ml/min (50-250); Globulin 2.0 g/dL (2.2-4.2); Glucose 111 mg/dL (70-99); Potassium 3.7 mmol/L (3.3-5.1)
--- NOTE | 2025-05-05 08:47 | CON.PCM.GI_ITS ---
HPI Consult Data Date of Consult: 05/05/25 HPI Narrative Reason for Consultation: transaminitis post ERCP HPI Narrative: 08/12/2025 ABD US - CBD 9.6mm at the rick hepatis with suspected choledocholithiasis. GB moderately distended with small calculi. 09/04/2024 AST 68, ALT 78, ALP 199, T. BIli 23.9 09/04/2024 Diffuse intrahepatic and extrahepatic biliary ductal dilatation noted, as seen on the prior CT. Gallstone at the neck of the gallbladder. No definite ductal filling defects seen CT 09/04/2024 Diffuse intrahepatic and extrahepatic biliary ductal dilatation. gallstone is noted. Suspected filling defect in the common bile duct. ERCP 09/05/2024 Choledocholithiasis was found. Complete removal was accomplished by biliary sphincterotomy and balloon extraction. One temporary stent was placed into the common bile duct. MRCP 09/06/2024 Cholelithiasis. Biliary stent. 09/11/2025 GGT 69, Tbili 14, Dbili 11.21, AST 64, ALT 70, ALP 155, CA19-9 63, TSH WNL, Copper 185, IgG 904 QUIQUE, Acute Hepatitis panel, HIV negative ERCP 12/11/2024 The biliary system were dilated, with a stone causing an obstruction. Choledocholithiasis was found. Complete removal was accomplished by biliary sphincterotomy and balloon extraction. One stent was removed from the biliary tree. CT 12/14/2024 Mild degree of central intrahepatic biliary ductal dilatation and mild dilatation of the proximal portion of the common bile duct although it decreases in size acetabular is the head of the pancreas. ERCP 12/15/2024 The entire biliary tree was dilated, with a stone causing an obstruction. Choledocholithiasis was found. Complete removal was accomplished by biliary sphincterotomy and balloon extraction. One stent was placed into the common bile duct. 12/16/2024 GGT 174, Tbili 2.75, Dbili 1.88, AST 29, ALT 149, ALP 136 - Augmentin BID x7d HIDA 02/24/2025 NONVISUALIZATION OF THE GALLBLADDER SUSPICIOUS FOR ACUTE CHOLECYSTITIS CCX 03/17/2025 Laparoscopic subtotal cholecystectomy, Severe chronic cholecystitis 03/18/2025 Tbili 4.25, AST 43, ALT 65, ALP 64 - Augmentin BID x7d HIDA 03/30/2025 1. No evidence of common duct obstruction. 2. Satisfactory hepatic uptake and excretion. ERCP 05/03/2025 sphincterotomy was performed, sludge and stones swept from duct and stent removed. He did receive Cefazolin 2g IV intraop and was discharged home with Augmentin 875/125 BID x7d, he received 1st dose this morning. CT 05/04/2025 Suspected cholecystitis possibly with gallbladder perforation. Dilated biliary tree, cholangitis, and choledocholithiasis. 05/04/2025 Presents to ED with c/o febrile at home 103 with shakes; AST 493, ALT 883, ALP 158, T. Bili 4.25, Dbili 3.03, Lipase 55, no leukocytosis - reports dark yellow urine - denies any weight loss - denies any N/V - denies any change in bowel habits - was tolerating PO yesterday w/o issue - NPO since last evening - took 1 dose of Tylenol prior to coming into ED last night - denies any OTC herbal supplements 05/05/2025 AST 319, ALT 620, ALP 131, T. Bili 4.53, no leukocytosis - Blood Cultures pending. [facility] Medical History Bacteremia due to Gram-negative bacteria Drug-induced liver injury Jaundice History of biliary stent insertion Elevation of levels of liver transaminase levels Hyperbilirubinemia Overweight (BMI 25.0-29.9) No pertinent past medical history Home Medications ?Medication ?Instructions ?Recorded ?Last Taken ?Type NK 05/05/25 Unknown History Allergy/AdvReac Type Severity Reaction Status Date / Time No Known Allergies Allergy Verified 05/04/25 23:20 Family History Mother No problems noted. Father No problems noted. Surgical History Hx laparoscopic cholecystectomy History of ERCP Social History household members: spouse Smoking Status: Never smoker alcohol intake: never substance use type: does not use ROS ROS Narrative - reports weight gain post CCX - denies any N/V - denies any pain - denies any change in bowel habits Constitutional Constitutional: Reports as per HPI Gastrointestinal Gastrointestinal: Reports as per HPI Genitourinary Genitourinary: Reports as per HPI Physical Exam Const alert, oriented x3, no apparent distress and average body habitus General Appearance: cooperative and comfortable Orientation / Consciousness: awake, oriented to person, oriented to place and oriented to time Exam Limitations: no limitations HEENT normocephalic and hearing grossly normal bilaterally Head and Scalp: normal to inspection Face and Sinus: normal facial exam Eyes General Eye: normal appearance of both eyes Sclera: sclera normal Neck full ROM General: normal visual inspection and trachea midline Chest Chest: symmetrical chest wall rise Resp normal respiratory effort, normal air movement and clear to auscultation bilaterally Effort and Inspection: able to speak in complete sentences Auscultation: clear to auscultation bilaterally Cardio regular rate, regular rhythm, S1 normal heart sound and S2 normal heart sound GI normal to inspection, nondistended, normoactive bowel sounds and soft to palpation GI Narrative: moderate epigastric tenderness with palpation Extremity normal to inspection and no pedal edema Skin Hair: normal Nails: normal Neuro oriented x3 Psych Memory / Cognition: memory grossly intact Judgement: judgement good Medical Records Data Attestation: I reviewed the patient's medical records Lab / Micro Data Attestation: I reviewed the patient's lab results. 05/05/25 04:55 05/05/25 04:55 Labs: Laboratory Results - last 24 hr 05/04/25 23:30: WBC 9.6, RBC 5.17, Hgb 15.5, Hct 44.6, MCV 86.3, MCH 30.0, MCHC 34.8, RDW Std Deviation 39.7, RDW Coeff of Joanne 12.6, Plt Count 182, MPV 9.1, Immature Gran % (Auto) 0.900, Neut % (Auto) 91.5 H, Lymph % (Auto) 3.4 L, [place] % (Auto) 4.1, Eos % (Auto) 0.0, Baso % (Auto) 0.1, Absolute Neuts (auto) 8.8 H, A bsolute Lymphs (auto) 0.33 L, Nucleated RBC % 0, Sodium 138, Potassium 3.4, Chloride 103, Carbon Dioxide 20.9 L, Anion Gap 14, BUN 12, Creatinine 1.07, Estim Creat Clear Calc 104.76, Est GFR (MDRD) Non-Af 89, BUN/Creatinine Ratio 10.8, Glucose 134 H, Lactic Acid 1.1, Calcium 9.1, Total Bilirubin 4.25 H, D irect Bilirubin 3.03 H, AST 493 H, ALT 883 H, Alkaline Phosphatase 158 H, Total Protein 6.8, Albumin 4.2, Globulin 2.6, Lipase 55, Procalcitonin 0.75 H 05/05/25 04:55: WBC 10.9, RBC 4.58 L, Hgb 13.7, Hct 40.1, MCV 87.6, MCH 29.9, MCHC 34.2, RDW Std Deviation 40.6, RDW Coeff of Joanne 12.7, Plt Count 162, MPV 9.1, Immature Gran % (Auto) 0.600, Neut % (Auto) 87.7 H, Lymph % (Auto) 4.3 L, [place] % (Auto) 7.2, Eos % (Auto) 0.0, Baso % (Auto) 0.2, Absolute Neuts (auto) 9.6 H, Absolute Lymphs (auto) 0.47 L, Nucleated RBC % 0, Sodium 140, Potassium 3.7, Chloride 107, Carbon Dioxide 22.3, Anion Gap 11, BUN 11, Creatinine 1.16, Estim Creat Clear Calc 96.91, Est GFR (MDRD) Non-Af 81, BUN/Creatinine Ratio 9.7 L, Glucose 111 H, Calcium 8.1, Total Bilirubin 4.53 H, AST 319 H, ALT 620 H, A lkaline Phosphatase 131 H, Total Protein 5.7 L, Albumin 3.6, Globulin 2.0 L, Albumin/Globulin Ratio 1.8 Imaging Radiology Impression Abdomen/Pelvis CT 05/04/25 23:50 IMPRESSION: Suspected cholecystitis possibly with gallbladder perforation. Dilated biliary tree, cholangitis, and choledocholithiasis. Follow up imaging as clinically determined. Reading Location: [place] [id number] Assessment & Plan Assessment/Plan (1) Elevated liver enzymes: (2) Status post endoscopic retrograde cholangiopancreatography: (3) Epigastric abdominal pain: PLAN: Plan 39y/o male s/p subtotal CCX 03/19/2025, underwent ERCP 05/03/2025 for biliary stent removal, sphincterotomy was performed, sludge and stones swept from duct and stent removed. He did receive Cefazolin 2g IV intraop and was discharged home with Augmentin 875/125 BID x7d. He received two doses of PO ATB before presenting to ED last evening with c/o fever 103 at home and shakes. He did take one dose of Tylenol prior to arrival and presented with Temp 100.5 and tachycardic 134. In ED labs were revealing for AST 493, ALT 883, ALP 158, T. Bili 4.25, D. bili 3.03, Lipase 55, no leukocytosis. He denies any pain, although abdominal exam is remarkable for epigastric tenderness with palpation. Denies any N/V, weight loss, or dark urine. No scleral icterus or jaundice noted. Temp 97.7, HR 101 this am. Blood cultures pending. IV Zosyn. Will plan for ERCP +/- SpyGlass with stent placement today. Detailed HPI as noted above. We have again transaminitis with atypical presentation with markedly elevated bilirubin (23.9) at time of initial presentation August 2024. However, he reports he was jaundice any asymptomatic for a month prior to seeking treatment August 2024, this could account for the extreme elevation in bilirubin (total and direct) as bile was unable to drain properly from the liver due to obstruction. ERCP revealed diffuse dilation on the entire biliary tree which suggests the obstruction had been chronic. He has previously declined liver biopsy and continues to decline liver biopsy at this time. 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 Capacity Capacity Assessment Tool Patient lacks Decision Making Capacity: unable to understand, reason and deliberate health related choices: No Risk to self and or others?: No Risk of leaving the patient care unit and or hospital?: No
--- NOTE | 2025-05-05 08:57 | CON.PCM.SX_ITS ---
Assessment & Plan Assessment/Plan (1) Elevated liver enzymes: (2) Choledocholithiasis with acute cholecystitis: (3) Pyrexia: QUALIFIERS: Fever type: post-procedural Qualified Code(s): R50.82 - Postprocedural fever (4) Epigastric abdominal pain: PLAN: Plan I have been consulted in conjunction with Dr. Lopez. He will independently evaluate this patient. Patient is a 39 y/o M who presented with a 1 day history of fever and chills post-operatively from an ERCP with stone extraction and stent removal. Patient is s/p partial cholecystectomy by Dr. Shoemaker. Patient had a drain in place post-operatively to r/o any bile leak. JASON drain was pulled on 03/31 after having completed a HIDA scan which demonstrated no evidence of a bile leak. Patient denies any abdominal pain accept when palpated during examination. I have discussed with the patient and his that he will likely need a repeat ERCP with stent placement. Patient's voices this will be his 5 ERCP. I have discussed that Dr. Babin may suggest a tertiary referral as an outpatient to hepatobiliary or hepatology to further investigate patient's recurrent cholangitis, gallstone formation and possible removal of gallbladder remnant if this is thought to be the etiology. We are not recommending any surgical intervention at this time. In order for the remaining remnant of the gallbladder to become less inflamed, an ERCP with stent placement to assist with bile flow is the recommended approach at this time in conjunction with IV antibiotics. We will continue to follow this patient as needed. Patient and his have had the opportunity to ask and have questions answered. Patient verbally understands and agrees with the proposed plan. Thank you for allowing us to participate in this patient's care. HPI Consult Data Date of Consult: 05/05/25 HPI Narrative Reason for Consultation: Choledocholithiasis with acute cholecystitis HPI Narrative: DIANE CONNORS, is a 39 M who presents with fevers and chills following an ERCP with stent removal on Saturday with Dr. Babin. Patient has a history of multiple ERCP procedures with stent placements and removals. Patient is also approximately 7 weeks post-op from a laparoscopic subtotal cholecystectomy and simple umbilical hernia repair by Dr. Shoemaker. Patient had an ERCP with stone extraction and stent removal on Saturday by Dr. Babin. Patient was sent home on Augmentin x 7 days following the procedure. Patient notes that night he had a fever that night and developed chills. He tried Tylenol for his fever. He presented to the ED with these symptoms. He also had a lack of appetite. He denies any abdominal pain. CT scan obtained in the ED demonstrated suspected cholecystitis with gallbladder perforation, dilated biliary tree, cholangitis and choledocholithiasis. Labs: WBC 10.9. Liver enzymes: T Bili 4.25-->4.53, AST 493-->319, ALT 883-->620, Alk Phos 158-->131 [facility] Medical History Bacteremia due to Gram-negative bacteria Drug-induced liver injury Jaundice History of biliary stent insertion Elevation of levels of liver transaminase levels Hyperbilirubinemia Overweight (BMI 25.0-29.9) No pertinent past medical history Home Medications ?Medication ?Instructions ?Recorded ?Last Taken ?Type NK 05/05/25 Unknown History Allergy/AdvReac Type Severity Reaction Status Date / Time No Known Allergies Allergy Verified 05/04/25 23:20 Family History Mother No problems noted. Father No problems noted. Surgical History Hx laparoscopic cholecystectomy History of ERCP Social History household members: spouse Smoking Status: Never smoker alcohol intake: never substance use type: does not use ROS Constitutional Constitutional: Reports fever(s), malaise and weight gain Eyes Eyes: Reports systems reviewed and no addt'l complaints, except as documented ENT HEENT: Reports systems reviewed and no addt'l complaints, except as documented Cardiovascular Cardiovascular: Reports systems reviewed and no addt'l complaints, except as documented Respiratory/Chest Respiratory/Chest: Reports systems reviewed and no addt'l complaints, except as documented Gastrointestinal Gastrointestinal: Reports systems reviewed and no addt'l complaints, except as documented Genitourinary Genitourinary: Reports systems reviewed and no addt'l complaints, except as documented Musculoskeletal Musculoskeletal: Reports systems reviewed and no addt'l complaints, except as documented Integumentary Integumentary: Reports systems reviewed and no addt'l complaints, except as documented Neurologic Neurologic: Reports systems reviewed and no addt'l complaints, except as documented Psychiatric Psychiatric: Reports systems reviewed and no addt'l complaints, except as documented Endocrine Endocrinology: Reports systems reviewed and no addt'l complaints, except as documented Hematologic/Lymphatic Hematologic/Lymphatic: Reports systems reviewed and no addt'l complaints, except as documented Allergic/Immunologic Allergic/Immunologic: Reports systems reviewed and no addt'l complaints, except as documented Physical Exam Const alert, oriented x3 and no apparent distress HEENT normocephalic and head/scalp atraumatic Eyes PERRL Neck full ROM Resp normal respiratory effort Cardio Rate: tachycardic GI GI Narrative: Abdomen- soft, epigastric tenderness with palpation no CVA tenderness Back/Spine no CVA tenderness Extremity normal to inspection Skin no rashes or lesions noted Neuro no focal motor deficits and no sensory deficits noted Psych mental status grossly normal Lab / Micro Data 05/05/25 04:55 05/05/25 04:55 Labs: Laboratory Results - last 24 hr 05/04/25 23:30: WBC 9.6, RBC 5.17, Hgb 15.5, Hct 44.6, MCV 86.3, MCH 30.0, MCHC 34.8, RDW Std Deviation 39.7, RDW Coeff of Joanne 12.6, Plt Count 182, MPV 9.1, Immature Gran % (Auto) 0.900, Neut % (Auto) 91.5 H, Lymph % (Auto) 3.4 L, [place] % (Auto) 4.1, Eos % (Auto) 0.0, Baso % (Auto) 0.1, Absolute Neuts (auto) 8.8 H, A bsolute Lymphs (auto) 0.33 L, Nucleated RBC % 0, Sodium 138, Potassium 3.4, Chloride 103, Carbon Dioxide 20.9 L, Anion Gap 14, BUN 12, Creatinine 1.07, Estim Creat Clear Calc 104.76, Est GFR (MDRD) Non-Af 89, BUN/Creatinine Ratio 10.8, Glucose 134 H, Lactic Acid 1.1, Calcium 9.1, Total Bilirubin 4.25 H, D irect Bilirubin 3.03 H, AST 493 H, ALT 883 H, Alkaline Phosphatase 158 H, Total Protein 6.8, Albumin 4.2, Globulin 2.6, Lipase 55, Procalcitonin 0.75 H 05/05/25 04:55: WBC 10.9, RBC 4.58 L, Hgb 13.7, Hct 40.1, MCV 87.6, MCH 29.9, MCHC 34.2, RDW Std Deviation 40.6, RDW Coeff of Joanne 12.7, Plt Count 162, MPV 9.1, Immature Gran % (Auto) 0.600, Neut % (Auto) 87.7 H, Lymph % (Auto) 4.3 L, [place] % (Auto) 7.2, Eos % (Auto) 0.0, Baso % (Auto) 0.2, Absolute Neuts (auto) 9.6 H, Absolute Lymphs (auto) 0.47 L, Nucleated RBC % 0, Sodium 140, Potassium 3.7, Chloride 107, Carbon Dioxide 22.3, Anion Gap 11, BUN 11, Creatinine 1.16, Estim Creat Clear Calc 96.91, Est GFR (MDRD) Non-Af 81, BUN/Creatinine Ratio 9.7 L, Glucose 111 H, Calcium 8.1, Total Bilirubin 4.53 H, AST 319 H, ALT 620 H, A lkaline Phosphatase 131 H, Total Protein 5.7 L, Albumin 3.6, Globulin 2.0 L, Albumin/Globulin Ratio 1.8 Imaging Radiology Impression Abdomen/Pelvis CT 05/04/25 23:50 IMPRESSION: Suspected cholecystitis possibly with gallbladder perforation. Dilated biliary tree, cholangitis, and choledocholithiasis. Follow up imaging as clinically determined. Reading Location: [facility] Charges/Coding Visit Charges Inpatient E&M: 48439 Init Hosp L2
--- NOTE | 2025-05-05 10:40 | CASEMGMT ---
RN?CM?ASSESSMENT ? RN?CM?to room to meet with patient for initial transition planning/care coordination?assessment.?RN?CM?introduced self and role at [facility].? Pt voices understanding and consents to?assessment?at this time.? Pt resting in bed in no distress at this time.? @ bedside. Pt is A/O at this time and answers all questions appropriately.?? Care providers, pharmacy, and demographics verified/updated at this time. ? Strata:1 PCP: ELLI Arias Specialists: [facility] Preferred Pharmacy: [facility] Insurance: Pt states he has voodoo insurance he pays into and they reimburse for healthcare costs. Prescription Benefit:? None LNOK: [place] Living Arrangements: Pt lives w/ and 2 children in a 2-story home w/3 steps to enter. Independent. Transportation:?Pt states drives self and states no transportation concerns at this time.? DME: ? Denies using any DME. HHC/SNF: No hx. ? Pt wishes to return home and states has no concerns with going home at time of discharge. CM?to follow for any discharge planning/needs.? Pt and voice no concerns/needs at this time.? Advised them to ask for?CM?if any questions/concerns/needs arise.? They voice understanding. ? PLAN:??Home ? Elieser GRIFFINN?RN?CM ? ?
--- NOTE | 2025-05-05 15:02 | PCM.PRE.AN2 ---
ASA Classification* ASA Classification ASA Classification: 2 Assessment & Plan Anesthesia* Anesthesia Assessment Anesthesia Assessment: Discussed sedation and/or anesthesia options, risks, benefits, and alternatives with patient/parents/legal guardian/POA. Questions invited. The patient/parents/legal guardian/POA seems to understand and agrees to proceed with anesthesia plan. Reviewed the physical assessment, medical history, allergy history and patient home medications list prior to surgery/procedure/anesthetic and documented any changes. Performed airway and anesthesia risk assessments. Anesthesia Type Anesthesia Type: General Anesthesia Focused Assessment* Temperature: 98.5 F Pulse Rate: 109 Blood Pressure: 113/85 Respiratory Rate: 18 Pulse Ox: 94 Airway Assessment Mouth opens: >3 cm Mallampati Score: II Labs Anesthesia Preop lab: CBC WBC 10.9 K/mm3 (4.4-11.0) 05/05/25 04:55 05/05/25 RBC 4.58 M/mm3 (4.6-6.2) L 05/05/25 04:55 05/05/25 Hgb 13.7 g/dL (13.0-16.5) 05/05/25 04:55 05/05/25 Hct 40.1 % (40-54) 05/05/25 04:55 05/05/25 Plt Count 162 K/mm3 (150-450) 05/05/25 04:55 05/05/25 CHEMISTRY Potassium 3.7 mmol/L (3.3-5.1) 05/05/25 04:55 05/05/25 Sodium 140 mmol/L (133-145) 05/05/25 04:55 05/05/25 Magnesium 2.1 mg/dL (1.6-2.6) 09/06/24 07:15 09/06/24 Phosphorus 3.2 mg/dL (2.5-4.9) 09/06/24 07:15 09/06/24 BUN 11 mg/dL (4-19) 05/05/25 04:55 05/05/25 Creatinine 1.16 mg/dL (0.70-1.20) 05/05/25 04:55 05/05/25 Glucose 111 mg/dL (70-99) H 05/05/25 04:55 05/05/25 TSH 0.918 uIU/mL (0.358-3.740) 09/11/24 08:48 09/11/24 COAG PT 12.3 SECONDS (11.7-14.9) 09/11/24 08:48 09/11/24 Pre-Assessment Diagnosis/Proposed Procedure Planned Operative Procedure(s): ERCP. 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 When Was Last Pacemaker Check QUESTION #4 FULL TEXT: You/Your Family Experience fever (hyperthermia) with Anesthesia Last Oral Intake Last Oral intake: Last Oral Intake NPO since Meds taken in AM with sips of water? 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 Female HX of Motion Sickness HX of N/V After Surgery Non-Smoker Duration of Surgery greater than 60 minutes Number of Risk Factors PONV Score Height & Weight Height & Weight: Anesthesia: Height & Weight Height 5 ft 10 in 05/05/25 02:26 Weight: 94.9 kg 05/05/25 02:26 Body Mass Index (BMI) 29.9 05/05/25 02:26 Respiratory Assessment Respiratory Assessment - truckload checker: Respiratory Tract Infection Hx - truckload checker Hx Respiratory Tract Infection No 04/27/25 15:02 STOP Sleep Apnea STOP Sleep Apnea - truckload checker: STOP Sleep Apnea - truckload checker Hx Hypertension No 05/05/25 02:26 Hx Sleep Apnea No 05/05/25 02:26 CPAP BIPAP Do you snore loudly (louder No 05/05/25 02:26 than talking or can be heard Do you often feel tired/ No 05/05/25 02:26 fatigued/ sleepy during daytime? Has anyone observed you stop No 05/05/25 02:26 breathing during sleep? STOP Results Negative 05/05/25 02:26 QUESTION #5 FULL TEXT : Do you snore loudly (louder than talking or can be heard through closed doors)? 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 Specify any problems Hx of Preganancy in last 3 N/A 05/05/25 02:26 Months Nurse Filling Out Transfusion AREAD 05/05/25 02:26 & Questions: Date: 05/05/25 05/05/25 02:26 Time: 02:42 05/05/25 02:26 Patient unable to answer at this time (ie. confused, unrespo /Reproduction History /Reproductive History - truckload checker: /Reproductive Hx- truckload checker Hx Now Gestational Age (in weeks): EDC: Hx Hx Para Hx Section SAB No 04/27/25 15:02 Active Medications Active Medications: Current Medications Generic Name Dose Route Start Last Admin Trade Name Freq PRN Reason Stop Dose Admin Acetaminophen 650 mg 05/05/25 02:26 05/05/25 12:12 Acetaminophen 325 Mg Tablet PO 650 mg Q4H PRN PRN Administration Fever, pain 1-10 Al Hydroxide/Mg Hydroxide 30 ml 05/05/25 02:26 Mag Hydrox/Al Hydrox/Simeth 30 Ml Udc PO Q6H PRN PRN Gastric Burning Albuterol Sulfate 2.5 mg 05/05/25 02:26 Albuterol 2.5 Mg/3 Ml Vial.Neb. INHALATION Q2H PRN PRN Dyspnea, wheezing Guaifenesin 20 ml 05/05/25 02:26 Guaifenesin 10 Ml Udc (200mg/10ml) PO Q4H PRN PRN COUGH Hydralazine HCl 10 mg 05/05/25 02:26 Hydralazine 20 Mg/Ml Vial IV Q4H PRN PRN SBP > 160 Protocol Sodium Chloride 1,000 mls @ 125 mls/hr 05/05/25 02:26 05/05/25 11:31 IV 05/05/25 18:25 125 mls/hr .Q8H RICARDO Administration Piperacillin Sod/Tazobactam 50 mls @ 12.5 mls/hr 05/05/25 06:00 05/05/25 13:43 Sod 3.375 gm/ Sodium Chloride IV 12.5 mls/hr Q8 RICARDO Administration Pantoprazole Sodium 40 mg/ 100 mls @ 330 mls/hr 05/05/25 02:26 05/05/25 10:20 Sodium Chloride IV Infused Q12 RICARDO Infusion Sodium Chloride 250 mls @ 15 mls/hr 05/05/25 02:26 IV .[id number] PRN Saline Flush Sodium Chloride 250 mls @ 15 mls/hr 05/05/25 02:26 IV .[id number] PRN Additional IVPB Infusion Ketorolac Tromethamine 15 mg 05/05/25 02:26 Ketorolac 15 Mg/Ml Vial IV 05/10/25 02:26 Q6H PRN PRN Pain Score 1-10 Melatonin 3 mg 05/05/25 02:26 Melatonin 3 Mg Tablet PO QHS PRN PRN INSOMNIA Morphine Sulfate 2 mg 05/05/25 02:26 Morphine 2 Mg/Ml Syringe IV Q3H PRN PRN Pain Score 6-10 Ondansetron HCl 4 mg 05/05/25 02:26 Ondansetron 4 Mg/2 Ml Vial IV Q8H PRN PRN NAUSEA/VOMITING Oxycodone HCl 5 mg 05/05/25 02:26 Oxycodone 5 Mg Tablet PO Q4H PRN PRN Pain Score 4-10 Senna/Docusate Sodium 2 tablet 05/05/25 02:26 Senna/Docusate Sodium 1 Tablet PO BID PRN PRN Constipation Sodium Chloride 10 - 40 ml 05/05/25 02:26 0.9% Saline Lock 10 Ml Syringe IV UD PRN SALINE FLUSH PFSH Medical History Bacteremia due to Gram-negative bacteria Drug-induced liver injury Jaundice History of biliary stent insertion Elevation of levels of liver transaminase levels Hyperbilirubinemia Overweight (BMI 25.0-29.9) No pertinent past medical history Home Medications ?Medication ?Instructions ?Recorded ?Last Taken ?Type NK 05/05/25 Unknown History Allergy/AdvReac Type Severity Reaction Status Date / Time No Known Allergies Allergy Verified 05/04/25 23:20 Family History Mother No problems noted. Father No problems noted. Surgical History Hx laparoscopic cholecystectomy History of ERCP Social History household members: spouse Smoking Status: Never smoker alcohol intake: never substance use type: does not use Review of Systems (Anesthesia) ROS Narrative System reviewed and no additional complaints, except as documented.
--- NOTE | 2025-05-05 16:14 | PN_ITS ---
Subjective Subjective Patient seen and examined with his nurse by his bedside. His was by his bedside. He admitted to some abdominal pain. He denied any fever, chills, cough, chest pain, palpitations, dizziness, nausea, vomiting or any other symptoms. Objective Data Objective Data Vital Signs: Vital Signs Temp Pulse Resp BP Pulse Ox O2 Del Method 98.5 F 109 H 18 113/85 H 94 Room Air 05/05/25 15:02 05/05/25 15:02 05/05/25 15:02 05/05/25 15:02 05/05/25 15:02 05/05/25 12:00 Oxygen Delivery Method Room Air Weight: 209 lb 3.499 oz Body Mass Index (BMI) 29.9 Intake & Output: Intake and Output for Last 24 Hours 05/03/25 05/04/25 05/05/25 23:59 23:59 23:59 Intake Total 3343.33 / 3343.33 Balance 3343.33 / 3343.33 Lab / Micro Data 05/05/25 04:55 05/05/25 04:55 Labs: Laboratory Results - last 24 hr 05/04/25 23:30: WBC 9.6, RBC 5.17, Hgb 15.5, Hct 44.6, MCV 86.3, MCH 30.0, MCHC 34.8, RDW Std Deviation 39.7, RDW Coeff of Joanne 12.6, Plt Count 182, MPV 9.1, Immature Gran % (Auto) 0.900, Neut % (Auto) 91.5 H, Lymph % (Auto) 3.4 L, [place] % (Auto) 4.1, Eos % (Auto) 0.0, Baso % (Auto) 0.1, Absolute Neuts (auto) 8.8 H, A bsolute Lymphs (auto) 0.33 L, Nucleated RBC % 0, Sodium 138, Potassium 3.4, Chloride 103, Carbon Dioxide 20.9 L, Anion Gap 14, BUN 12, Creatinine 1.07, Estim Creat Clear Calc 104.76, Est GFR (MDRD) Non-Af 89, BUN/Creatinine Ratio 10.8, Glucose 134 H, Lactic Acid 1.1, Calcium 9.1, Total Bilirubin 4.25 H, D irect Bilirubin 3.03 H, AST 493 H, ALT 883 H, Alkaline Phosphatase 158 H, Total Protein 6.8, Albumin 4.2, Globulin 2.6, Lipase 55, Procalcitonin 0.75 H 05/05/25 04:55: WBC 10.9, RBC 4.58 L, Hgb 13.7, Hct 40.1, MCV 87.6, MCH 29.9, MCHC 34.2, RDW Std Deviation 40.6, RDW Coeff of Joanne 12.7, Plt Count 162, MPV 9.1, Immature Gran % (Auto) 0.600, Neut % (Auto) 87.7 H, Lymph % (Auto) 4.3 L, [place] % (Auto) 7.2, Eos % (Auto) 0.0, Baso % (Auto) 0.2, Absolute Neuts (auto) 9.6 H, Absolute Lymphs (auto) 0.47 L, Nucleated RBC % 0, Sodium 140, Potassium 3.7, Chloride 107, Carbon Dioxide 22.3, Anion Gap 11, BUN 11, Creatinine 1.16, Estim Creat Clear Calc 96.91, Est GFR (MDRD) Non-Af 81, BUN/Creatinine Ratio 9.7 L, Glucose 111 H, Calcium 8.1, Total Bilirubin 4.53 H, AST 319 H, ALT 620 H, A lkaline Phosphatase 131 H, Total Protein 5.7 L, Albumin 3.6, Globulin 2.0 L, Albumin/Globulin Ratio 1.8 Micro: Microbiology 05/05/25 00:55 Blood Culture (Wb) - Right Hand Blood Culture - Preliminary 05/04/25 23:30 Blood Culture (Wb) - Anticubital Left Blood Culture - Preliminary Radiography Diagnostic Testing: Radiology Impression Abdomen/Pelvis CT 05/04/25 23:50 IMPRESSION: Suspected cholecystitis possibly with gallbladder perforation. Dilated biliary tree, cholangitis, and choledocholithiasis. Follow up imaging as clinically determined. Reading Location: [place] [id number] Physical Exam Const alert, oriented x3 and no apparent distress General Appearance: cooperative HEENT normocephalic, head/scalp atraumatic, moist oral mucous membranes and oropharynx normal Eyes PERRL and EOMs intact bilaterally Neck no lymphadenopathy and supple Lymph Lymphatic: no lymphedema noted Resp normal respiratory effort, normal air movement and clear to auscultation bilaterally Cardio regular rate, regular rhythm, S1 normal heart sound, S2 normal heart sound and no murmurs GI GI Narrative: mild epigastric and RUQ tenderness, no guarding or rebound tenderness. Extremity General Extremity: no tenderness to palpation of joints or extremities Skin General Skin Exam: no breakdown Neuro CN's II-XII intact bilaterally and no focal motor deficits Motor Exam: strength 5/5 throughout Psych thought process normal, cooperative and affect normal Appearance: appropriate Assessment & Plan Assessment/Plan (1) Epigastric abdominal pain: (2) Elevated liver enzymes: (3) Choledocholithiasis with acute cholecystitis: (4) Status post endoscopic retrograde cholangiopancreatography: PLAN: Plan #Recurrent acute choledocholithiasis * patient has had recurrent choledocholithiasis and chronic cholecystitis. He had subtotal laparoscopic cholecystectomy on 03/17/2025 with a fenestrating type drain placed. he had outpatient ERCP on 05/03/2025 with sphincterotomy, sludge and stones being swept from the duct and stent removed. He received IV cefazolin 2gram IV intraop and was discharged home with oral augmentin for 7 days. * However he came back to the ED with a complaint of fever and shakes and CT abdomen and pelvis showed gallbladder perforation, dilated biliary tree and cholangitis as well as choledocholithiasis. * blood cultures are growing gram negative rods, speciation is pending * on IV zosyn * GI consulted as well as general surgery * hydrate gently with iVF * per GI, patient to have repeat ERCP for decompression of the dilated biliary tree. * #Elevated liver enzymes * due to recurrent choledocholithiasis. management as above. * liver enzymes have started trending downwards. * #DVT prophylaxis: SCDs Charges/Coding Visit Charges Inpatient E&M: 84058 Subs Hosp L2
--- NOTE | 2025-05-05 16:30 | RAD_ITS ---
PROCEDURE: ERCP BILIARY/PANCREAS 05/05/2025 REASON FOR EXAM: PAIN TECHNIQUE: ERCP BILIARY/PANCREAS COMPARISON: 05/05/2025 CT. FINDINGS: ERCP was performed. The biliary system is visualized. 184.2 seconds of fluoroscopic time. 61.50 mGy. See procedure report for full details. RAD/ERCP Biliary/Pancreas IMPRESSION: As above. Reading Location: [id number]
[2025-05-05] MEDS: Lactated Ringers 1,000 ML 1000 ML IV (16:33)
[2025-05-05] MEDS: Midazolam 2 MG/2 ML Syringe IV (16:33)
[2025-05-05] MEDS: fentaNYL 100 MCG/2 ML Ampul IV (16:52)
--- NOTE | 2025-05-05 18:40 | OP.PROVAT_ITS ---
05/05/2025 Shira Arias Re : ERCP procedure for Jp Beltran Dear [place] This procedure was performed on Monday, May 05, 2025. My impressions and recommendations are as follows: Impressions : - A single localized biliary stricture was found in the upper third of the main bile duct. The stricture was indeterminate. - The upper third of the main bile duct, left and right hepatic ducts and all intrahepatic branches and common bile duct were moderately dilated, uncertain significance. - The patient has had a cholecystectomy. - Choledocholithiasis was found. Complete removal was accomplished by biliary sphincterotomy and balloon extraction. - A biliary sphincterotomy was performed. - Lithotripsy was successful. - The biliary tree was swept. - One temporary stent was placed into the common bile duct. Recommendations : My findings are described in the full procedure note, which is enclosed. If I can be of further assistance, please feel free to contact me at . Sincerely, Denys Babin DO 05/05/2025 6:40:04 PM This report has been signed electronically.
--- NOTE | 2025-05-05 18:40 | OP.ERCP_ITS ---
Patient Name: Jp Beltran Procedure Date: 05/05/2025 4:17 PM Date of : 1985 Age: 39 Procedure: ERCP Indications: Suspected ascending cholangitis, Jaundice Providers: Denys Babin DO Medicines: Monitored Anesthesia Care Patient Profile: This is a 39 year old male. Refer to note in patient chart for documentation of history and physical. Patient has symptoms of acute right upper quadrant abdominal pain and acute jaundice. He is status post laparoscopic cholecystectomy within the past six months. Complications: No immediate complications. Procedure: Pre-Anesthesia Assessment: - Prior to the procedure, a History and Physical was performed, and patient medications and allergies were reviewed. The patient is competent. The risks and benefits of the procedure and the sedation options and risks were discussed with the patient. All questions were answered and informed consent was obtained. Patient identification and proposed procedure were verified by the physician in the pre-procedure area. Mental Status Examination: alert and oriented. Airway Examination: normal oropharyngeal airway and neck mobility. Respiratory Examination: clear to auscultation. CV Examination: normal. Prophylactic Antibiotics: The patient does not require prophylactic antibiotics. Prior Anticoagulants: The patient has taken no anticoagulant or antiplatelet agents except for NSAID medication. ASA Grade Assessment: II - A patient with mild systemic disease. After reviewing the risks and benefits, the patient was deemed in satisfactory condition to undergo the procedure. The anesthesia plan was to use monitored anesthesia care (MAC). Immediately prior to administration of medications, the patient was re-assessed for adequacy to receive sedatives. The heart rate, respiratory rate, oxygen saturations, blood pressure, adequacy of pulmonary ventilation, and response to care were monitored throughout the procedure. The physical status of the patient was re-assessed after the procedure. After obtaining informed consent, the scope was passed under direct vision. Throughout the procedure, the patient's blood pressure, pulse, and oxygen saturations were monitored continuously. The Duodenoscope was introduced through the mouth, and advanced to the duodenum and used for direct visualization of the bile duct. The ERCP was accomplished without difficulty. The patient tolerated the procedure well. Scope In: 4:52:51 PM Scope Out: 6:27:52 PM Total Procedure Duration Time 1 hour 35 minutes 1 second Findings: The towel weaver film was normal. The esophagus was successfully intubated under direct vision. The scope was advanced to a normal major papilla in the descending duodenum without detailed examination of the pharynx, larynx and associated structures, and upper GI tract. The upper GI tract was grossly normal. A long 0.025 inch Jagwire was passed into the biliary tree. The short-nosed traction sphincterotome was passed over the guidewire and the bile duct was then deeply cannulated. Contrast was injected. I personally interpreted the bile duct images. There was brisk flow of contrast through the ducts. Image quality was adequate. Contrast extended to the entire biliary tree. The upper third of the main bile duct contained a single localized stenosis 6 mm in length. The upper third of the main bile duct, common bile duct, hepatic duct bifurcation and left and right hepatic ducts and all intrahepatic branches were moderately dilated, uncertain significance. The largest diameter was 15 mm. A cholecystectomy had been performed. A 5 mm biliary sphincterotomy was made with a traction (standard) sphincterotome using ERBE electrocautery. There was no post-sphincterotomy bleeding. The bile duct was explored endoscopically using the [employer] direct visualization system. The SpyScope was advanced to the left intrahepatic duct(s). Visibility with the scope was good. The cystic duct contained one stone, which was 30 mm in diameter. Electrohydraulic lithotripsy was successful. The biliary tree was swept with a 15 mm balloon starting at the upper third of the main bile duct, middle third of the main bile duct, lower third of the main duct, cystic duct, left intrahepatic duct(s) and right intrahepatic duct(s). Sludge was swept from the duct. All stones were removed. One 10 Fr by 12 cm temporary stent was placed 5 cm into the common bile duct. Bile flowed through the stent. The stent was in good position. Impression: - A single localized biliary stricture was found in the upper third of the main bile duct. The stricture was indeterminate. - The upper third of the main bile duct, left and right hepatic ducts and all intrahepatic branches and common bile duct were moderately dilated, uncertain significance. - The patient has had a cholecystectomy. - Choledocholithiasis was found. Complete removal was accomplished by biliary sphincterotomy and balloon extraction. - A biliary sphincterotomy was performed. - Lithotripsy was successful. - The biliary tree was swept. - One temporary stent was placed into the common bile duct. Procedure Code(s): --- Professional --- 50023, Endoscopic retrograde cholangiopancreatography (ERCP); with placement of endoscopic stent into biliary or pancreatic duct, including pre- and post-dilation and guide wire passage, when performed, including sphincterotomy, when performed, each stent [id number], Endoscopic retrograde cholangiopancreatography (ERCP); with destruction of calculi, any method (eg, mechanical, electrohydraulic, lithotripsy) 20357, Endoscopic cannulation of papilla with direct visualization of pancreatic/common bile duct(s) (List separately in addition to code(s) for primary procedure) 52803, 26, Endoscopic catheterization of the biliary ductal system, radiological supervision and interpretation CPT copyright 2021 [employer]. All rights reserved. The codes documented in this report are preliminary and upon cement sprayer helper review may be revised to meet current compliance requirements. Denys Babin DO 05/05/2025 6:40:04 PM This report has been signed electronically. Number of Addenda: 0 Note Initiated On: 05/05/2025 4:17 PM
--- NOTE | 2025-05-05 18:47 | PCM.POST.ANE ---
Anesthesia: Postop Eval I Current Vital Signs Temperature: 97.8 F Pulse Rate: 98 Blood Pressure: 124/82 Respiratory Rate: 16 Pulse Ox: 96 Oxygen Delivery Method: Room Air Assessment Airway patent: Yes Spontaneous unlabored respirations: Yes Mental status: Awake nausea: No Vomiting: No Anesthesia Complication: No Fluid Hydration Crystalloid volume administer (ml): 1,000 Total IV fluid infused: 1,000 Progress Note Anesthesia document: Postop Eval 1 completed: Yes
--- NOTE | 2025-05-05 18:48 | PCM.POSTANE2 ---
Anesthesia Postop Eval I Sum Postop Eval Completion status Anesthesia document: Postop Eval 1 completed: Yes Anesthesia Postop Eval I Summary Anesthesia Postop Eval I Summary: Anesthesia Postop Eval I: Assessment Summary Airway patent Yes 05/05/25 18:48 Spontaneous unlabored Yes 05/05/25 18:48 respirations Mental status Awake 05/05/25 18:48 nausea No 05/05/25 18:48 Vomiting No 05/05/25 18:48 Anesthesia Postop Eval I: Fluid Summary Crystalloid volume administer 1,000 05/05/25 18:48 (ml) Colloids volume administered ( ml) Blood Product volume administered (ml) Total IV fluid infused 1,000 05/05/25 18:48 Anesthesia Postop Eval I: Summary Notes Anesthesia Complication No 05/05/25 18:48 Anesthesia Complication Comment: Post-operative progress note Anesthesia: Postop Eval II Evaluation Mental status: Awake Pain Level: 0 nausea: No Vomiting: No
--- NOTE | 2025-05-05 18:58 | PCM.PN.BLA ---
Progress Note After doing cholangioscopy we discovered that he had a large stone in the cystic duct that was pushing up against the common bile duct. That stone was removed with lithotripsy. A temporary common bile duct stent was placed and patient will continue on antibiotics. Physical Exam Const alert, oriented x3 and no apparent distress General Appearance: cooperative HEENT normocephalic, head/scalp atraumatic, moist oral mucous membranes and oropharynx normal Eyes PERRL and EOMs intact bilaterally Neck no lymphadenopathy and supple Lymph Lymphatic: no lymphedema noted Resp normal respiratory effort, normal air movement and clear to auscultation bilaterally Cardio regular rate, regular rhythm, S1 normal heart sound, S2 normal heart sound and no murmurs GI GI Narrative: mild epigastric and RUQ tenderness, no guarding or rebound tenderness. Extremity General Extremity: no tenderness to palpation of joints or extremities Skin General Skin Exam: no breakdown Neuro CN's II-XII intact bilaterally and no focal motor deficits Motor Exam: strength 5/5 throughout Psych thought process normal, cooperative and affect normal Appearance: appropriate Assessment & Plan Assessment/Plan (1) Elevated liver enzymes: (2) Epigastric abdominal pain: (3) Pyrexia: QUALIFIERS: Fever type: post-procedural Qualified Code(s): R50.82 - Postprocedural fever PLAN: Patient can have a regular diet. Visit Charges Inpatient E&M: 85099 Subs Hosp L2
[2025-05-06 03:37] VITALS: BP 107/77; PULSE 81; RESP 18; TEMP 36.2; O2SAT 95
[2025-05-06 05:18] VITALS: BMI 31.3
[2025-05-06] MEDS: Piperacil/Tazobactam 3.375 GM in 0.9% Normal Saline (50mL MB+) 50 ML IV ×3 (05:55→22:25)
[2025-05-06 06:23] LABS: Hematocrit 38.2 % (40-54); Hemoglobin 13.0 g/dL (13.0-16.5); Immature Granulocytes Count 0.050 X10^3/uL (0.0-0.0); Mean Corp Hgb Conc 34.0 g/dL (32-36); Mean Corpuscular Volume 87.4 fL (80-94); Mean Platelet Vol. 9.3 fl (6.2-12.0); NRBC Flagged by Analyzer 0 % (0-5); Platelet Count 150 K/mm3 (150-450); RBC Distribution Width CV 13.0 % (11.6-14.6); RBC Distribution Width SD 41.6 fl (35.1-43.9); Red Blood Count 4.37 M/mm3 (4.6-6.2); White Blood Count 7.4 K/mm3 (4.4-11.0)
[2025-05-06 07:00] LABS: AST(SGOT) 112 U/L (<=37); Alanine Aminotransfer ALT/SGPT 374 U/L (<=46); Albumin, Serum 3.3 g/dL (3.5-5.0); Alkaline Phosphatase 109 U/L (40-129); Anion Gap 10 (5-15); BUN 9 mg/dL (4-19); BUN/Creat Ratio 10.6 RATIO (10-20); Calcium,Total 8.4 mg/dL (7.6-11.0); Carbon Dioxide 22.0 mmol/L (21.0-32.0); Chloride 108 mmol/L (98-108); Estimated Creatinine Clearance 136.58 ml/min (50-250); Globulin 2.3 g/dL (2.2-4.2); Glucose 117 mg/dL (70-99); Potassium 4.1 mmol/L (3.3-5.1)
[2025-05-06 09:16] VITALS: O2SAT 95
[2025-05-06] MEDS: Pantoprazole Sodium 40 MG in 0.9% Normal Saline (100mL MB+) 100 ML 330 MG IV (09:41)
[2025-05-06 09:42] VITALS: BP 116/81; PULSE 68; RESP 15; TEMP 36.3; O2SAT 96
--- NOTE | 2025-05-06 11:01 | CON.PCM.ID_ITS ---
Assessment & Plan Assessment/Plan (1) Cholangitis: (2) Bacteremia due to Gram-negative bacteria: PLAN: Now s/p ERCP 05/05/25, feeling better, continue zosyn. Will follow, thank you HPI Consult Data Date of Consult: 05/06/25 HPI Narrative Reason for Consultation: bacteremia HPI Narrative: DIANE CONNORS, is a 39 M with h/o recurrent gallstones and cholangitis, had lap arthur 02/2025. Recent ERCP 05/03, then next day developed shakes and chills. No abd pain, no n/v/d. Came to ED, admitted on zosyn, had ERCP 05/05, feeling better today. Full ROS performed and neg except as noted above. [facility] Medical History Bacteremia due to Gram-negative bacteria Drug-induced liver injury Jaundice History of biliary stent insertion Elevation of levels of liver transaminase levels Hyperbilirubinemia Overweight (BMI 25.0-29.9) No pertinent past medical history Home Medications ?Medication ?Instructions ?Recorded ?Last Taken ?Type NK 05/05/25 Unknown History Allergy/AdvReac Type Severity Reaction Status Date / Time No Known Allergies Allergy Verified 05/04/25 23:20 Family History Mother No problems noted. Father No problems noted. Surgical History Hx laparoscopic cholecystectomy History of ERCP Social History household members: spouse Smoking Status: Never smoker alcohol intake: never substance use type: does not use Physical Exam Const alert, oriented x3 and no apparent distress General Appearance: cooperative HEENT normocephalic and head/scalp atraumatic Eyes PERRL and EOMs intact bilaterally Neck supple and No nodes Resp normal air movement and clear to auscultation bilaterally Cardio regular rate and regular rhythm GI soft to palpation, non-tender and non-distended Extremity General Extremity: Negative for edema Skin no rashes or lesions noted Neuro CN's II-XII intact bilaterally Lab / Micro Data Attestation: I reviewed the patient's lab results. 05/06/25 05:06 05/06/25 05:06 Labs: Laboratory Results - last 24 hr 05/06/25 05:06: WBC 7.4, RBC 4.37 L, Hgb 13.0, Hct 38.2 L, MCV 87.4, MCH 29.7, MCHC 34.0, RDW Std Deviation 41.6, RDW Coeff of Joanne 13.0, Plt Count 150, MPV 9.3, Immature Gran % (Auto) 0.700, Neut % (Auto) 82.5 H, Lymph % (Auto) 8.9 L, [place] % (Auto) 7.8, Eos % (Auto) 0.0, Baso % (Auto) 0.1, Absolute Neuts (auto) 6.1, Absolute Lymphs (auto) 0.66 L, Nucleated RBC % 0, Sodium 139, Potassium 4.1, Chloride 108, Carbon Dioxide 22.0, Anion Gap 10, BUN 9, Creatinine 0.84, Estim Creat Clear Calc 136.58, Est GFR (MDRD) Non-Af 112, BUN/Creatinine Ratio 10.6, Glucose 117 H, Calcium 8.4, Total Bilirubin 2.82 H, AST 112 H, ALT 374 H, Alkaline Phosphatase 109, Total Protein 5.7 L, Albumin 3.3 L, Globulin 2.3, Albumin/Globulin Ratio 1.4 Micro: Microbiology 05/05/25 00:55 Blood Culture (Wb) - Right Hand Blood Culture - Preliminary 05/04/25 23:30 Blood Culture (Wb) - Anticubital Left Blood Culture - Preliminary Imaging Radiology Impression Endo Retro Cholangiopancreatogram 05/05/25 16:30 IMPRESSION: As above. Reading Location: [id number]
--- NOTE | 2025-05-06 12:32 | PN_ITS ---
Subjective Subjective Patient seen and examined with his nurse by his bedside. He had no active complaints and had ERCP yesterday with stent insertion yesterday. HE is asking to go home today. However, he has positive blood cultures and is awaiting ID evaluation. Review of systems is otherwise negative. Liver enzymes are also trending downwards. Objective Data Objective Data Vital Signs: Vital Signs Temp Pulse Resp BP Pulse Ox O2 Del Method 97.3 F L 68 15 116/81 H 96 Room Air 05/06/25 09:42 05/06/25 09:42 05/06/25 09:42 05/06/25 09:42 05/06/25 09:42 05/06/25 09:42 Oxygen Delivery Method Room Air Weight: 218 lb 7.649 oz Body Mass Index (BMI) 31.3 Intake & Output: Intake and Output for Last 24 Hours 05/04/25 05/05/25 05/06/25 23:59 23:59 23:59 Intake Total 4493.33 / 4493.33 200 / 200 Balance 4493.33 / 4493.33 200 / 200 Lab / Micro Data 05/06/25 05:06 05/06/25 05:06 Labs: Laboratory Results - last 24 hr 05/06/25 05:06: WBC 7.4, RBC 4.37 L, Hgb 13.0, Hct 38.2 L, MCV 87.4, MCH 29.7, MCHC 34.0, RDW Std Deviation 41.6, RDW Coeff of Joanne 13.0, Plt Count 150, MPV 9.3, Immature Gran % (Auto) 0.700, Neut % (Auto) 82.5 H, Lymph % (Auto) 8.9 L, [place] % (Auto) 7.8, Eos % (Auto) 0.0, Baso % (Auto) 0.1, Absolute Neuts (auto) 6.1, Absolute Lymphs (auto) 0.66 L, Nucleated RBC % 0, Sodium 139, Potassium 4.1, Chloride 108, Carbon Dioxide 22.0, Anion Gap 10, BUN 9, Creatinine 0.84, Estim Creat Clear Calc 136.58, Est GFR (MDRD) Non-Af 112, BUN/Creatinine Ratio 10.6, Glucose 117 H, Calcium 8.4, Total Bilirubin 2.82 H, AST 112 H, ALT 374 H, Alkaline Phosphatase 109, Total Protein 5.7 L, Albumin 3.3 L, Globulin 2.3, Albumin/Globulin Ratio 1.4 Micro: Microbiology 05/05/25 00:55 Blood Culture (Wb) - Right Hand Blood Culture - Preliminary 05/04/25 23:30 Blood Culture (Wb) - Anticubital Left Blood Culture - Preliminary Radiography Diagnostic Testing: Radiology Impression Endo Retro Cholangiopancreatogram 05/05/25 16:30 IMPRESSION: As above. Reading Location: [facility] Physical Exam Const alert, oriented x3 and no apparent distress General Appearance: cooperative HEENT normocephalic, head/scalp atraumatic, moist oral mucous membranes and oropharynx normal Eyes PERRL and EOMs intact bilaterally Neck no lymphadenopathy and supple Lymph Lymphatic: no lymphedema noted Resp normal respiratory effort, normal air movement and clear to auscultation bilaterally Cardio regular rate, regular rhythm, S1 normal heart sound, S2 normal heart sound and no murmurs GI soft to palpation and non-tender Extremity normal capillary refill, no clubbing, cyanosis or edema and no calf tenderness General Extremity: no tenderness to palpation of joints or extremities Skin General Skin Exam: no breakdown Neuro CN's II-XII intact bilaterally and no focal motor deficits Motor Exam: strength 5/5 throughout Psych thought process normal, cooperative and affect normal Appearance: appropriate Assessment & Plan Assessment/Plan (1) Epigastric abdominal pain: (2) Elevated liver enzymes: (3) Choledocholithiasis with acute cholecystitis: (4) Status post endoscopic retrograde cholangiopancreatography: PLAN: Plan #Recurrent acute choledocholithiasis * patient has had recurrent choledocholithiasis and chronic cholecystitis. He had subtotal laparoscopic cholecystectomy on 03/17/2025 with a fenestrating type drain placed. he had outpatient ERCP on 05/03/2025 with sphincterotomy, sludge and stones being swept from the duct and stent removed. He received IV cefazolin 2gram IV intraop and was discharged home with oral augmentin for 7 days. * However he came back to the ED with a complaint of fever and shakes and CT abdomen and pelvis showed gallbladder perforation, dilated biliary tree and cholangitis as well as choledocholithiasis. * blood cultures are growing gram negative rods, speciation is pending * on IV zosyn * GI on board. 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 He had a stent inserted in the common bile duct after biliary sphincterotomy and balloon extraction. * GI consulted as well as general surgery * #Gram negative bacteremia * Blood cultures positive for gram-negative rods. Speciation pending. Currently on IV Zosyn. ID consulted. Await recs. #Elevated liver enzymes * due to recurrent choledocholithiasis. management as above. * liver enzymes continue to trend downwards and I expect that this will continue since the stent has been inserted. * #DVT prophylaxis: SCDs Charges/Coding Visit Charges Inpatient E&M: 56894 Subs Hosp L2
[2025-05-06 15:30] VITALS: BP 114/76; PULSE 78; RESP 16; TEMP 36.6; O2SAT 96
--- NOTE | 2025-05-06 16:34 | PCM.PN.BLA ---
Progress Note Patient is doing alot better and is not having any problems after the procedure yesterday. Physical Exam Const alert, oriented x3 and no apparent distress General Appearance: cooperative HEENT normocephalic, head/scalp atraumatic, moist oral mucous membranes and oropharynx normal Eyes PERRL and EOMs intact bilaterally Neck no lymphadenopathy and supple Lymph Lymphatic: no lymphedema noted Resp normal respiratory effort, normal air movement and clear to auscultation bilaterally Cardio regular rate, regular rhythm, S1 normal heart sound, S2 normal heart sound and no murmurs GI soft to palpation and non-tender Extremity normal capillary refill, no clubbing, cyanosis or edema and no calf tenderness General Extremity: no tenderness to palpation of joints or extremities Skin General Skin Exam: no breakdown Neuro CN's II-XII intact bilaterally and no focal motor deficits Motor Exam: strength 5/5 throughout Psych thought process normal, cooperative and affect normal Appearance: appropriate Assessment & Plan Assessment/Plan (1) Hyperbilirubinemia: (2) Elevation of levels of liver transaminase levels: (3) Choledocholithiasis with acute cholecystitis: PLAN: Plan Patient is a 39-year-old male who presented to [facility] ED on with fevers and chills after recent ERCP. Reported fevers/chills with elevated transaminases after recent ERCP, recent history of choledocholithiasis and suspected history of drug-induced liver injury ? Patient is a 39-year-old male who presented to [facility] ED with fevers and chills after recent ERCP. Reported fevers/chills with elevated transaminases after recent ERCP, recent history of choledocholithiasis and suspected history of drug-induced liver injury ? He had ERCP done with choledocholithiasis removed with biliary tree swept. -Continue Abx Visit Charges Inpatient E&M: 70840 [facility] Hosp L3
[2025-05-06 21:34] VITALS: BP 121/78; PULSE 70; RESP 18; TEMP 36.2; O2SAT 97
[2025-05-07 03:12] VITALS: BP 100/71; PULSE 74; RESP 18; TEMP 35.8; O2SAT 96
[2025-05-07 05:12] VITALS: BMI 30.4
[2025-05-07] MEDS: Piperacil/Tazobactam 3.375 GM in 0.9% Normal Saline (50mL MB+) 50 ML IV (05:25)
[2025-05-07 06:45] LABS: Hematocrit 39.7 % (40-54); Hemoglobin 13.4 g/dL (13.0-16.5); Immature Granulocytes Count 0.040 X10^3/uL (0.0-0.0); Mean Corp Hgb Conc 33.8 g/dL (32-36); Mean Corpuscular Volume 88.0 fL (80-94); Mean Platelet Vol. 9.3 fl (6.2-12.0); NRBC Flagged by Analyzer 0 % (0-5); Platelet Count 186 K/mm3 (150-450); RBC Distribution Width CV 13.2 % (11.6-14.6); RBC Distribution Width SD 42.6 fl (35.1-43.9); Red Blood Count 4.51 M/mm3 (4.6-6.2); White Blood Count 5.8 K/mm3 (4.4-11.0)
[2025-05-07 07:32] LABS: AST(SGOT) 52 U/L (<=37); Alanine Aminotransfer ALT/SGPT 279 U/L (<=46); Albumin, Serum 3.4 g/dL (3.5-5.0); Alkaline Phosphatase 110 U/L (40-129); Anion Gap 11 (5-15); BUN 10 mg/dL (4-19); BUN/Creat Ratio 10.4 RATIO (10-20); Calcium,Total 8.8 mg/dL (7.6-11.0); Carbon Dioxide 23.2 mmol/L (21.0-32.0); Chloride 108 mmol/L (98-108); Estimated Creatinine Clearance 121.71 ml/min (50-250); Globulin 2.6 g/dL (2.2-4.2); Glucose 93 mg/dL (70-99); Potassium 4.0 mmol/L (3.3-5.1)
[2025-05-07 09:00] VITALS: BP 122/91; PULSE 68; RESP 18; TEMP 37.2; O2SAT 96
--- NOTE | 2025-05-07 10:27 | PCM.PN.ID ---
Physical Exam Narrative Feeling better, no abd pain, no fever, no n/v/d. Const alert and no apparent distress General Appearance: cooperative Resp normal air movement and clear to auscultation bilaterally Cardio regular rate and regular rhythm GI soft to palpation, non-tender and non-distended Skin no rashes or lesions noted ID ID: Route of nutrition/ use of supplements: [] Nutritional Intake: [] IV Site: [] Shultz Catheter: [] Assessment & Plan Assessment/Plan (1) Cholangitis: (2) Bacteremia due to Gram-negative bacteria: PLAN: Now s/p ERCP 05/05/25, feeling better, continue zosyn while inpatient. Ok for home with one week po augmentin 875mg bid. Will follow
--- NOTE | 2025-05-07 13:27 | PCM.DC ---
Discharge Instructions DC O2, CPAP, BIPAP needs Home O2 Discharge instructions: No Dressing / Incision Discharge Activity: Return to Normal Activity Weight Bearing Status: Weight bearing as tolerated Dressing / Incision Call your doctor if you observe: Fever of 101 or Higher and Uncontrolled pain Follow Up Care Test Results: Test results from this visit will be discussed in further detail at your follow-up appointment, if applicable. Discharge Plan Admission Admit Date/Time: 05/05/25 01:52 Primary Reason for Your Visit: acute choledocholithiasis Attending Provider: Veronica Flores Primary Care Provider: Shira Arias NP Consulting Providers: Khang Lopez; Eileen Brunson; Jared Arevalo Instructions Patient Instructions: ERCP Dc Discharge Orders/Prescriptions Prescriptions: New amoxicillin-pot clavulanate 875-125 mg tablet 1 tab PO BID Qty: 14 0RF Referrals / Follow Up: Denys Babin DO [Med Staff - Active Staff] - Within 1 Week Shira Arias NP, [employer]IST-[employer] [Primary Care Provider] - Within 1 Week Disposition Disposition (needs filled in before D/C Order can be placed): Home, Self Care
--- NOTE | 2025-05-07 13:28 | DS.PCM_ITS ---
Providers Date of Admission: 05/05/25 Date of Discharge: 05/07/25 Primary Care Physician: AGUILAR Giles Consultations 05/05/25 02:26 Consult: Gastroenterology Routine Consulting Provider: [facility] Reason for Consult: Acute Choledocholithiasis w/ choleycysitis s/p partial cholecystectomy EMERGENT Consult: No Notified: Yes Date Notified: 05/05/25 Time Notified: 01:53 Method of Notification: ED Physician Initiated Consult: General Surgery Routine Consulting Provider: Khang Lopez Reason for Consult: Acute Choledocholithiasis w/ acute cholecysitis s/p prior partial arthur. EMERGENT Consult: No Notified: Yes Date Notified: 05/05/25 Time Notified: 01:54 Method of Notification: ED Physician Initiated 05/06/25 08:05 Consult: Infectious Disease Routine Consulting Provider: Jared Arevalo Reason for Consult: gram negative bacteremia EMERGENT Consult: No Notified: Yes Date Notified: 05/06/25 Time Notified: 08:26 Method of Notification: Text Reason For Visit: ACUTE CHOLEDOCHOLITHIASIS W/ACUTE CHOLEYCYSTITIS Diagnosis Discharge Diagnosis (1) Cholangitis: Status: Acute Code(s): K83.09 - Other cholangitis (2) Bacteremia due to Gram-negative bacteria: Status: Acute Code(s): R78.81 - Bacteremia Plan #Recurrent acute choledocholithiasis * patient has had recurrent choledocholithiasis and chronic cholecystitis. He had subtotal laparoscopic cholecystectomy on 03/17/2025 with a fenestrating type drain placed. he had outpatient ERCP on 05/03/2025 with sphincterotomy, sludge and stones being swept from the duct and stent removed. He received IV cefazolin 2gram IV intraop and was discharged home with oral augmentin for 7 days. * However he came back to the ED with a complaint of fever and shakes and CT abdomen and pelvis showed gallbladder perforation, dilated biliary tree and cholangitis as well as choledocholithiasis. * blood cultures are growing gram negative rods, speciation is pending * on IV zosyn * GI on board. 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 He had a stent inserted in the common bile duct after biliary sphincterotomy and balloon extraction. * GI consulted as well as general surgery * #Gram negative bacteremia * Blood cultures positive for gram-negative rods. Speciation pending. Currently on IV Zosyn. ID consulted. Await recs. * #Elevated liver enzymes * due to recurrent choledocholithiasis. management as above. * liver enzymes continue to trend downwards and I expect that this will continue since the stent has been inserted. * #DVT prophylaxis: SCDs Medications at Discharge Home Medications amoxicillin 875 mg-potassium clavulanate 125 mg tablet 1 tab PO BID #14 tabs 05/07/25 Hospital Course Operations None Procedures - (ERCP) Summary of Care Provided Minutes Spent on Discharge: 42 Hospital Course: Patient is a 39-year-old male with a past medical history as outlined including recurrent choledocholithiasis with cholangitis and severe chronic cholecystitis who had subtotal laparoscopic cholecystectomy on 03/17/2025. He also had a fenestrating type drain placed and had outpatient ERCP on 05/03/2025 with removal of the drain. He went home and started having fever and chills. During the ERCP on 05/03/2025 there was a single localized biliary stricture found in the middle third of the main bile duct likely postsurgical with specimen cytologically taken. The left and right hepatic and all intrahepatic branches were markedly dilated and choledocholithiasis was evident which was completely removed via biliary sphincterotomy and balloon extraction. The stent was removed. As stated he went to [facility] having fever and chills and rigors so he came back into the ED. CT of the abdomen and pelvis showed suspected cholecystitis with possible gallbladder perforation and dilated biliary tree as well as cholangitis and choledocholithiasis. He was started on IV Zosyn and admitted. Gastroenterology was consulted. General surgery was also consulted but general surgery did not think that there was anything active they needed to do. His liver enzymes were also markedly elevated and there were concerns for drug-induced liver injury. Patient had repeat ERCP done per GI which showed dilatation of the biliary tree again as well as choledocholithiasis. The choledocholithiasis was removed and the biliary tree was swept and he had a stent inserted. Blood cultures were positive for E. coli. ID was therefore consulted. With the insertion of the stents the liver enzymes trended downwards and normalized. His fever and chills also resolved. ID was consulted and recommended that patient could be discharged home on p.o. Augmentin for 1 week course. Patient was therefore discharged on p.o. Augmentin on 05/07/2025. He is to follow-up with his primary care doctor and follow-up with gastroenterology within 1 to 2 weeks. Patient was seen and examined prior to discharge. He was seen with his nurse by his bedside. He felt much better and had no complaints. He had an uneventful night. Review of systems otherwise negative. Labs and vitals reviewed. Home medication reviewed and reconciled. Physical Exam Const alert, oriented x3 and no apparent distress General Appearance: cooperative, comfortable and well kempt HEENT normocephalic, head/scalp atraumatic, hearing grossly normal bilaterally, moist oral mucous membranes and oropharynx normal Mouth: oral and palatal mucosa normal Eyes PERRL, EOMs intact bilaterally and conjunctivae normal Neck no lymphadenopathy and supple Lymph Lymphatic: no lymphedema noted Resp normal respiratory effort, normal air movement and clear to auscultation bilaterally Cardio regular rate, regular rhythm, S1 normal heart sound, S2 normal heart sound and no murmurs GI normal to inspection, nondistended, normoactive bowel sounds, soft to palpation, non-tender and non-distended Extremity normal to inspection, full ROM, normal capillary refill, no clubbing, cyanosis or edema and no calf tenderness General Extremity: no tenderness to palpation of joints or extremities Skin no rashes or lesions noted General Skin Exam: no breakdown Neuro oriented x3, CN's II-XII intact bilaterally, moves all extremities and no focal motor deficits Sensorium / Orientation: awake Motor Exam: strength 5/5 throughout Psych thought process normal, cooperative and affect normal Appearance: appropriate Weight / BMI Weight Weight: 212 lb 4.882 oz Body Mass Index (BMI) 30.4 ABG / Lab / Microbiology Data 05/07/25 05:49 05/07/25 05:49 Laboratory: Laboratory Results - last 24 hr 05/07/25 05:49: WBC 5.8, RBC 4.51 L, Hgb 13.4, Hct 39.7 L, MCV 88.0, MCH 29.7, MCHC 33.8, RDW Std Deviation 42.6, RDW Coeff of Joanne 13.2, Plt Count 186, MPV 9.3, Immature Gran % (Auto) 0.700, Neut % (Auto) 64.8, Lymph % (Auto) 23.2, [place] % (Auto) 9.0, Eos % (Auto) 1.6, Baso % (Auto) 0.7, Absolute Neuts (auto) 3.7, Absolute Lymphs (auto) 1.34, Nucleated RBC % 0, Sodium 142, Potassium 4.0, Chloride 108, Carbon Dioxide 23.2, Anion Gap 11, BUN 10, Creatinine 0.93, Estim Creat Clear Calc 121.71, Est GFR (MDRD) Non-Af 106, BUN/Creatinine Ratio 10.4, Glucose 93, Calcium 8.8, Total Bilirubin 1.13, AST 52 H, ALT 279 H, Alkaline Phosphatase 110, Total Protein 6.0, Albumin 3.4 L, Globulin 2.6, Albumin/Globulin Ratio 1.3 Microbiology: Microbiology 05/05/25 00:55 Blood Culture (Wb) - Right Hand Blood Culture - Final Gram negative chey 05/04/25 23:30 Blood Culture (Wb) - Anticubital Left Blood Culture - Final Escherichia coli D/C Instructions Discharge Activity: Return to Normal Activity Weight Bearing Status: Weight bearing as tolerated Call your doctor if you observe: Fever of 101 or Higher and Uncontrolled pain DC O2, CPAP, BIPAP Needs Home O2 Discharge instructions: No DC home with Oxygen: No Meaningful Use Info Meaningful Use Meaningful Use Diagnoses (Choose all that apply): None applicable Discharge Plan Admission Admit Date/Time: 05/05/25 01:52 Primary Reason for Your Visit: acute choledocholithiasis Attending Provider: Veronica Flores Primary Care Provider: Shira Arias NP Consulting Providers: Khang Lopez; Eileen Brunson; Jared Arevalo Instructions Patient Instructions: ERCP Dc Discharge Orders/Prescriptions Prescriptions: New amoxicillin-pot clavulanate 875-125 mg tablet 1 tab PO BID Qty: 14 0RF Referrals / Follow Up: Denys Babin DO [Med Staff - Active Staff] - Within 1 Week Shira Arias NP, [employer] SUPERVISOR-[employer] [Primary Care Provider] - Within 1 Week Disposition Disposition (needs filled in before D/C Order can be placed): Home, Self Care Charges/Coding Visit Charges Inpatient E&M: 38545 Disch Hosp >30min
[2025-05-07 13:40] VITALS: BP 139/104; PULSE 67; RESP 18; O2SAT 97
--- NOTE | 2025-05-07 19:03 | PCM.PN.BLA ---
Progress Note Patient continues to be afebrile. Physical Exam Const alert, oriented x3, no apparent distress and healthy appearing General Appearance: cooperative GI normal to inspection, nondistended, normoactive bowel sounds, soft to palpation, non-tender and non-distended Percussion: normal to percussion Rectal Exam: deferred Assessment & Plan Assessment/Plan (1) Hyperbilirubinemia: (2) Elevation of levels of liver transaminase levels: (3) Choledocholithiasis with acute cholecystitis: PLAN: Plan Patient is a 39-year-old male who presented to [facility] ED on with fevers and chills after recent ERCP. Reported fevers/chills with elevated transaminases after recent ERCP, recent history of choledocholithiasis and suspected history of drug-induced liver injury ? Patient is a 39-year-old male who presented to [facility] ED with fevers and chills after recent ERCP. Reported fevers/chills with elevated transaminases after recent ERCP, recent history of choledocholithiasis and suspected history of drug-induced liver injury ? He had ERCP done with choledocholithiasis removed with biliary tree swept. -Continue Abx Agree with dc home on Abx.
--- NOTE | 2025-05-07 19:04 | PN_ITS ---
Visit Charges Inpatient E&M: 95733 Subs Hosp L3
--- NOTE | 2025-05-07 19:04 | PCM.PN.BLA ---
Visit Charges Inpatient E&M: 96704 Subs Hosp L3
== END 2025-05-07 14:10 | disposition home or self-care (01) | DRG 445 ==
LOC: ED 05-05 01:48 → PCU 05-05 02:41
PROVIDERS: Internal Medicine Gastroenterology; Admitting Provider Family Medicine; Emergency Provider Emergency Medicine; PCP Nurse Practitioner Family; Visit Provider Student in an Organized Health Care Education/Training Program
PROC: 0FC88ZZ Extirpation of Matter from Cystic Duct, Via Natural or Artificial Opening Endoscopic (ICD-10-PCS; CPT 43260; principal; 2025-05-05 15:40)
DX: K80.63 Calculus of gallbladder and bile duct with acute cholecystitis with obstruction (principal); R78.81 Bacteremia; E66.9 Obesity, unspecified; Z68.29 Body mass index [BMI] 29.0-29.9, adult; B96.20 Unspecified Escherichia coli [E. coli] as the cause of diseases classified elsewhere; Z90.49 Acquired absence of other specified parts of digestive tract
CPT/HCPCS: 36415; 74177; 74330; 76000; 80048; 80053; 80076; 83605; 83690; 84145; 85025; 87040; 87077; 87186; 99283; C1889; Q9967; A4216; J2405

== ENCOUNTER → 2025-05-17 | Outpatient (CLI) | payer SELFPAY ==
[2025-05-17 11:02] LABS: AST(SGOT) 35 U/L (<=37); Alanine Aminotransfer ALT/SGPT 77 U/L (<=46); Albumin, Serum 4.2 g/dL (3.5-5.0); Alkaline Phosphatase 104 U/L (40-129); Bilirubin, Direct 0.40 mg/dL (0.00-0.30); Globulin 2.8 g/dL (2.2-4.2)
== END | disposition home or self-care (01) ==
LOC: LAB 09:49
PROVIDERS: PCP Nurse Practitioner Family; Referring Provider Nurse Practitioner Acute Care; Visit Provider Nurse Practitioner Acute Care
DX: R74.01 Elevation of levels of liver transaminase levels (principal)
CPT/HCPCS: 36415; 80076

== ENCOUNTER 2025-06-15 13:57 | Day surgery (SDC) | payer SELFPAY ==
--- NOTE | 2025-06-10 16:18 | PAT.ANESEVAL ---
Pre-Assessment Diagnosis/Proposed Procedure Planned Operative Procedure(s): Endoscopic retrograde cholangiopancreatography. 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 When Was Last Pacemaker Check QUESTION #4 FULL TEXT: You/Your Family Experience fever (hyperthermia) with Anesthesia Last Oral Intake Last Oral intake: Last Oral Intake NPO since Meds taken in AM with sips of water? 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 - personal lines sales rep: PONV - personal lines sales rep Female No 06/10/25 10:11 HX of Motion Sickness No 06/10/25 10:11 HX of N/V After Surgery No 06/10/25 10:11 Non-Smoker Yes 06/10/25 10:11 Duration of Surgery greater No 06/10/25 10:11 than 60 minutes Number of Risk Factors 1 06/10/25 10:11 PONV Score Low Risk 06/10/25 10:11 Height & Weight Height & Weight: Anesthesia: Height & Weight Height 5 ft 10 in 05/17/25 09:16 Respiratory Assessment Respiratory Assessment - personal lines sales rep: Respiratory Tract Infection Hx - personal lines sales rep Hx Respiratory Tract Infection No 06/10/25 10:11 STOP Sleep Apnea STOP Sleep Apnea - personal lines sales rep: STOP Sleep Apnea - personal lines sales rep Hx Hypertension No 06/10/25 10:11 Hx Sleep Apnea No 06/10/25 10:11 CPAP BIPAP Do you snore loudly (louder No 06/10/25 10:11 than talking or can be heard Do you often feel tired/ No 06/10/25 10:11 fatigued/ sleepy during daytime? Has anyone observed you stop No 06/10/25 10:11 breathing during sleep? STOP Results Negative 06/10/25 10:11 QUESTION #5 FULL TEXT : Do you snore loudly (louder than talking or can be heard through closed doors)? 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 Specify any problems Hx of Preganancy in last 3 N/A 06/10/25 10:11 Months Nurse Filling Out Transfusion NBUCHER 06/10/25 10:11 & Questions: Date: 06/10/25 06/10/25 10:11 Time: 10:11 06/10/25 10:11 Patient unable to answer at this time (ie. confused, unrespo /Reproduction History /Reproductive History - personal lines sales rep: /Reproductive Hx- personal lines sales rep Hx Now Gestational Age (in weeks): EDC: Hx Hx Para Hx Section SAB No 06/10/25 10:11 PFSH Medical History History of biliary stent insertion Bacteremia due to Gram-negative bacteria Elevation of levels of liver transaminase levels Drug-induced liver injury Hyperbilirubinemia Overweight (BMI 25.0-29.9) Jaundice No pertinent past medical history Home Medications ?Medication ?Instructions ?Recorded ?Last Taken ?Type NK 06/10/25 Unknown History Allergy/AdvReac Type Severity Reaction Status Date / Time No Known Allergies Allergy Verified 06/10/25 10:08 Family History Mother No problems noted. Father No problems noted. Surgical History (Updated 06/10/25 @ 10:15 by Marlene García) Status post endoscopic retrograde cholangiopancreatography Hx laparoscopic cholecystectomy History of ERCP Social History household members: spouse Smoking Status: Never smoker alcohol intake: never substance use type: does not use Audit: Pertinent Findings Pertinent Findings EKG Perinent findings: 05/03/2025. Sinus bradycardia at 57 bpm. Left axis deviation. No significant change from March 08, 2025. Recommendation Anesthesia Recommendation Anesthesia recommendation: OPTIMIZED for anesthesia
[2025-06-15] VITALS (8 sets, daily range): BP systolic 111–132; BP diastolic 80–91; PULSE 64–78; RESP 16–18; TEMP 36.2–36.4; O2SAT 95–98; BMI 30.1
--- NOTE | 2025-06-15 14:10 | EKG12_ITS ---
Test Reason : PRE OP Blood Pressure : */* mmHG Vent. Rate : 58 BPM Atrial Rate : 58 BPM P-R Int : 202 ms QRS Dur : 114 ms QT Int : 406 ms P-R-T Axes : 37 -33 15 degrees QTcB Int : 398 ms Sinus bradycardia with Premature atrial complexes Left axis deviation Incomplete right bundle branch block Abnormal ECG When compared with ECG of 03-May-2025 11:42, Premature atrial complexes are now Present Confirmed by KHAI CEVALLOS, LD ([id number]), city editor [place] LYNNE ([id number]) on 06/16/2025 1:53:27 PM Referred By: Shira Arias Confirmed By: LD RIDLEY MD
[2025-06-15] MEDS: Lactated Ringers 1,000 ML 15 ML IV (14:29)
--- NOTE | 2025-06-15 14:39 | PRE.ANES_ITS ---
ASA Classification* ASA Classification ASA Classification: 2 Assessment & Plan Anesthesia* Anesthesia Assessment Anesthesia Assessment: Discussed sedation and/or anesthesia options, risks, benefits, and alternatives with patient/parents/legal guardian/POA. Questions invited. The patient/parents/legal guardian/POA seems to understand and agrees to proceed with anesthesia plan. Reviewed the physical assessment, medical history, allergy history and patient home medications list prior to surgery/procedure/anesthetic and documented any changes. Performed airway and anesthesia risk assessments. Anesthesia Type Anesthesia Type: General History Source History Obtained from:: Patient and Chart Anesthesia Focused Assessment* Temperature: 97.5 F Pulse Rate: 64 Blood Pressure: 111/80 Respiratory Rate: 18 Pulse Ox: 98 Oxygen Delivery Method: Room Air Airway Assessment Mouth opens: >3 cm Mallampati Score: I Teeth Condition: Intact Neck Range of motion (ROM): Full ROM Labs Anesthesia Preop lab: CBC WBC 5.8 K/mm3 (4.4-11.0) 05/07/25 05:49 05/07/25 RBC 4.51 M/mm3 (4.6-6.2) L 05/07/25 05:49 05/07/25 Hgb 13.4 g/dL (13.0-16.5) 05/07/25 05:49 05/07/25 Hct 39.7 % (40-54) L 05/07/25 05:49 05/07/25 Plt Count 186 K/mm3 (150-450) 05/07/25 05:49 05/07/25 CHEMISTRY Potassium 4.0 mmol/L (3.3-5.1) 05/07/25 05:49 05/07/25 Sodium 142 mmol/L (133-145) 05/07/25 05:49 05/07/25 Magnesium 2.1 mg/dL (1.6-2.6) 09/06/24 07:15 09/06/24 Phosphorus 3.2 mg/dL (2.5-4.9) 09/06/24 07:15 09/06/24 BUN 10 mg/dL (4-19) 05/07/25 05:49 05/07/25 Creatinine 0.93 mg/dL (0.70-1.20) 05/07/25 05:49 05/07/25 Glucose 93 mg/dL (70-99) 05/07/25 05:49 05/07/25 TSH 0.918 uIU/mL (0.358-3.740) 09/11/24 08:48 08/30 12/21 COAG PT 12.3 SECONDS (11.7-14.9) 09/11/24 08:48 Pre-Assessment Diagnosis/Proposed Procedure Planned Operative Procedure(s): Endoscopic retrograde cholangiopancreatography. 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 When Was Last Pacemaker Check QUESTION #4 FULL TEXT: You/Your Family Experience fever (hyperthermia) with Anesthesia Last Oral Intake Last Oral intake: Last Oral Intake NPO since 11:00 06/15/25 14:19 Meds taken in AM with sips of No 06/15/25 14:19 water? 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 - assisted living administrator: PONV - assisted living administrator Female No 06/10/25 10:11 HX of Motion Sickness No 06/10/25 10:11 HX of N/V After Surgery No 06/10/25 10:11 Non-Smoker Yes 06/10/25 10:11 Duration of Surgery greater No 06/10/25 10:11 than 60 minutes Number of Risk Factors 1 06/10/25 10:11 PONV Score Low Risk 06/10/25 10:11 Height & Weight Height & Weight: Anesthesia: Height & Weight Height 5 ft 10 in 06/15/25 14:19 Weight: 95.3 kg 06/15/25 14:19 Body Mass Index (BMI) 30.1 06/15/25 14:19 Respiratory Assessment Respiratory Assessment - assisted living administrator: Respiratory Tract Infection Hx - assisted living administrator Hx Respiratory Tract Infection No 06/10/25 10:11 STOP Sleep Apnea STOP Sleep Apnea - assisted living administrator: STOP Sleep Apnea - assisted living administrator Hx Hypertension No 06/10/25 10:11 Hx Sleep Apnea No 06/10/25 10:11 CPAP BIPAP Do you snore loudly (louder No 06/10/25 10:11 than talking or can be heard Do you often feel tired/ No 06/10/25 10:11 fatigued/ sleepy during daytime? Has anyone observed you stop No 06/10/25 10:11 breathing during sleep? STOP Results Negative 06/10/25 10:11 QUESTION #5 FULL TEXT : Do you snore loudly (louder than talking or can be heard through closed doors)? 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 Specify any problems Hx of Preganancy in last 3 N/A 06/10/25 10:11 Months Nurse Filling Out Transfusion NBUCHER 06/10/25 10:11 & Questions: Date: 06/10/25 06/10/25 10:11 Time: 10:11 06/10/25 10:11 Patient unable to answer at this time (ie. confused, unrespo /Reproduction History /Reproductive History - assisted living administrator: /Reproductive Hx- assisted living administrator Hx Now Gestational Age (in weeks): EDC: Hx Hx Para Hx Section SAB No 06/10/25 10:11 Active Medications Active Medications: Current Medications Generic Name Dose Route Start Last Admin Trade Name Freq PRN Reason Stop Dose Admin Lactated Ringer's 1,000 mls @ 15 mls/hr 06/15/25 14:30 09/16/25 14:29 IV 15 mls/hr .Q48H RICARDO Administration PFSH Medical History History of biliary stent insertion Bacteremia due to Gram-negative bacteria Elevation of levels of liver transaminase levels Drug-induced liver injury Hyperbilirubinemia Overweight (BMI 25.0-29.9) Jaundice No pertinent past medical history Home Medications ?Medication ?Instructions ?Recorded ?Last Taken ?Type NK 06/10/25 Unknown History Allergy/AdvReac Type Severity Reaction Status Date / Time No Known Allergies Allergy Verified 06/15/25 14:19 Family History Mother No problems noted. Father No problems noted. Surgical History Status post endoscopic retrograde cholangiopancreatography Hx laparoscopic cholecystectomy History of ERCP Social History household members: spouse Smoking Status: Never smoker alcohol intake: never substance use type: does not use Review of Systems (Anesthesia) ROS Narrative System reviewed and no additional complaints, except as documented.
--- NOTE | 2025-06-15 14:45 | FLU_PTH ---
PATIENT: DIANE CONNORS LOC: EN U#:[id number] AGE/SX: 39/M ROOM: RE06/15/[address]: Dr. Denys Babin DO : 1985 BED: DIS: 06/15/2025 SPEC #: [id number] RECD: 06/15/25 15:58 STATUS: LYNDA DWAYNE #: [id number] NANDA: 06/15/25 14:[address]: Denys Babin DEPT: CYTOLOGY RECD BY: Adolfo Colvin ENTERED: 06/16/25 09:05 SP TYPE: Fluid OTHR DR: Shira Arias, MAIL PROCESSING ASSOCIATE-C Tissues: A - Biliary tract, NOS Procedures: Special Stain Group II Surgery Specimen Level IV Cytospin Fluid HEADER OPERATION: ERCP with stent removal PRE-OP DIAGNOSIS: Transaminitis, elevated ALT measurement, status post laparoscopic cholecystectomy TISSUE SUBMITTED: A- Biliary stent for cytology DIAGNOSIS CYTOLOGY A. Biliary stent (cytospin, cell block): * No malignant cells identified. * Essentially acellular specimen with foreign matter present. CYTOLOGY STUDY Slides are reviewed. CYTOLOGY GROSS A. Received is 15cm blue stent with <0.2 ml of yellow fluid with particles labeled with the patient's name and and designated per the requisition as Biliary stent. Submitted for cytology and cell block preparation. Mr 06/16/2025 CPT: 12623,20165
--- NOTE | 2025-06-15 14:52 | PCM.HP.STD ---
HPI - General General Date of Admission: 06/15/25 Date of Service: 06/15/25 Chief Complaint: biliary stent removal HPI Narrative DIANE CONNORS, is a 39 M who presents for biliary stent removal Details: INPATIENT CONSULT 05/05/2025 39y/o male s/p subtotal CCX 03/19/2025, underwent ERCP 05/03/2025 for biliary stent removal, sphincterotomy was performed, sludge and stones swept from duct and stent removed. He did receive Cefazolin 2g IV intraop and was discharged home with Augmentin 875/125 BID x7d. He received two doses of PO ATB before presenting to ED last evening with c/o fever 103 at home and shakes. He did take one dose of Tylenol prior to arrival and presented with Temp 100.5 and tachycardic 134. In ED labs were revealing for AST 493, ALT 883, ALP 158, T. Bili 4.25, D. bili 3.03, Lipase 55, no leukocytosis. He denies any pain, although abdominal exam is remarkable for epigastric tenderness with palpation. Denies any N/V, weight loss, or dark urine. No scleral icterus or jaundice noted. Temp 97.7, HR 101 this am. Blood cultures pending. IV Zosyn. Will plan for ERCP +/- SpyGlass with stent placement today. Detailed HPI as noted above. We have again transaminitis with atypical presentation with markedly elevated bilirubin (23.9) at time of initial presentation August 2024. However, he reports he was jaundice and asymptomatic for a month prior to seeking treatment August 2024, this could account for the extreme elevation in bilirubin (total and direct) as bile was unable to drain properly from the liver due to obstruction. ERCP revealed diffuse dilation on the entire biliary tree which suggests the obstruction had been chronic. He has previously declined liver biopsy and continues to decline liver biopsy at this time. However, he is agreeable to seeing Head Of Marketing Analytics at [facility] or for a second opinion. ID CONSULT (1) Cholangitis: (2) Bacteremia due to Gram-negative bacteria: PLAN: Now s/p ERCP 05/05/25, feeling better, continue zosyn while inpatient. Ok for home with one week po augmentin 875mg bid ERCP 05/05/2025 - A single localized biliary stricture was found in the upper third of the main bile duct. The stricture was indeterminate. After doing cholangioscopy we discovered that he had a large stone in the cystic duct that was pushing up against the common bile duct. That stone was removed with lithotripsy. A temporary common bile duct stent was placed and patient will continue on antibiotics. - The upper third of the main bile duct, left and right hepatic ducts and all intrahepatic branches and common bile duct were moderately dilated, uncertain significance. - The patient has had a cholecystectomy. - Choledocholithiasis was found. Complete removal was accomplished by biliary sphincterotomy and balloon extraction. - A biliary sphincterotomy was performed. - Lithotripsy was successful. - The biliary tree was swept. - One temporary stent was placed into the common bile duct. ------Cytology shows no malignant cells are identified. Tentative appointment for ERCP with stent removal scheduled for 06/15/25 at 2:45pm. Will reschedule if needed at his follow up appointment on 05/17. LABS 05/07/2025 WBC 5.8, AST 52, ALT 279, ALP 110, T bili 1.13 05/05/2025 AST 319, ALT 620, ALP 131, T bili 4.53, Lipase 55 05/04/2025 AST 493, ALT 883, ALP 158, T bili 4.25, D. bili 3.03 03/08/2025 AST 33, ALT 38, ALP 73, T bili 0.58 - seen in office with [facility] Medical History History of biliary stent insertion Bacteremia due to Gram-negative bacteria Elevation of levels of liver transaminase levels Drug-induced liver injury Hyperbilirubinemia Overweight (BMI 25.0-29.9) Jaundice No pertinent past medical history Home Medications ?Medication ?Instructions ?Recorded ?Last Taken ?Type NK 06/10/25 Unknown History Allergy/AdvReac Type Severity Reaction Status Date / Time No Known Allergies Allergy Verified 06/15/25 14:19 Family History Mother No problems noted. Father No problems noted. Surgical History Status post endoscopic retrograde cholangiopancreatography Hx laparoscopic cholecystectomy History of ERCP Social History household members: spouse Smoking Status: Never smoker alcohol intake: never substance use type: does not use ROS Constitutional Constitutional: Denies fatigue, fever(s), poor appetite, weight gain or weight loss Gastrointestinal Gastrointestinal: Denies belching, bloating, change in bowel habits, change in stool character, chewing difficulty, coffee ground emesis, constipation, cramping, diarrhea, dyspepsia, dysphagia, early satiety, excessive flatus, fecal incontinence, heartburn, hematemesis, hematochezia, hemorrhoids, loose stools, melena, nausea, odynophagia, rectal bleeding, tenesmus, vomiting or weight changes Vital Signs Vital Signs Vital Signs: 06/15/25 14:19 06/15/25 14:19 06/15/25 14:44 Temperature 97.5 F L 97.5 F L Temperature Source Temporal Pulse Rate 64 64 Respiratory Rate 18 18 Respiratory Pattern Normal Blood Pressure 111/80 111/80 Blood Pressure Mean 90 Blood Pressure Source Monitor Blood Pressure Position Semi-Fowlers Blood Pressure Location Right Arm Pulse Ox 98 98 Oxygen Delivery Method Room Air Room Air Weight Weight: 210 lb 1.608 oz Body Mass Index (BMI) 30.1 Physical Exam Const alert, oriented x3, no apparent distress and healthy appearing General Appearance: cooperative GI normal to inspection, nondistended, normoactive bowel sounds, soft to palpation, non-tender and non-distended Percussion: normal to percussion Rectal Exam: deferred Assessment & Plan Assessment/Plan (1) Transaminitis: (2) Elevated ALT measurement: (3) Status post laparoscopic cholecystectomy: PLAN: Assessment and Plan Assessment and Plan (1) Transaminitis: Status: Acute Orders: Orders Liver Profile Today R74.01 - Elevation of levels of liver transaminase levels Plan 39y/o male presents for follow-up post admission for Acute Choledocholithiasis w/ cholecystitis s/p partial cholecystectomy. He had undergone ERCP with stent removal on 05/03/2025 and opacification of the entire biliary tree except for the cystic duct and GB. The middle third of the main bile duct contained a single localized stenosis 6mm in length, thought to be likley post surgical. He underwent ERCP 05/05/2025 and discovered that he had a large stone in the cystic duct that was pushing up against the common bile duct. That stone was removed with lithotripsy. A temporary common bile duct stent was placed. He is seen today with his and denies any abdominal pain, jaundice, N/V. I have recommended scheduling stent removal to minimize risk of stent occlusion, cholangitis and other complications. He is agreeable to removal of temporary stent and keep me apprised of any changes in his symptoms. I have ordered labs to be completed at this time. Patient Instructions: Labs now ERCP 6 weeks from stent placement
[2025-06-15] MEDS: Lactated Ringers 500 ML IV (15:10)
--- NOTE | 2025-06-15 15:17 | RAD_ITS ---
PROCEDURE: ERCP BILIARY/PANCREAS 06/15/2025 REASON FOR EXAM: ERCP Removal of biliary stent. TECHNIQUE: Procedure Code: RADERCP Modality: DX Procedure: ERCP BILIARY/PANCREAS Radiation dose: 19.18 mGy. Fluoroscopy: A minute and 29 seconds. 10 radiographs were submitted. COMPARISON: Prior study dated May 05, 2025 FINDINGS: A stent is seen within the common bile duct. Contrast was injected. No filling defects are seen. The stent was removed. RAD/ERCP Biliary/Pancreas IMPRESSION: Removal of the biliary stent. Reading Location: [place] [id number]
[2025-06-15] MEDS: Lidocaine 1% (5 ml sdv) 5 ML Vial 10 ML IV (15:22)
--- NOTE | 2025-06-15 15:40 | OP.ERCP_ITS ---
Patient Name: Jp Beltran Procedure Date: 06/15/2025 3:05 PM Date of : 1985 Age: 39 Procedure: ERCP Indications: Biliary stent removal Providers: Denys Babin DO Referring MD: Shira Arias Medicines: Monitored Anesthesia Care Patient Profile: This is a 39 year old male. Refer to note in patient chart for documentation of history and physical. Patient has symptoms of acute right upper quadrant abdominal pain. Complications: No immediate complications. Procedure: Pre-Anesthesia Assessment: - Prior to the procedure, a History and Physical was performed, and patient medications and allergies were reviewed. The patient is competent. The risks and benefits of the procedure and the sedation options and risks were discussed with the patient. All questions were answered and informed consent was obtained. Patient identification and proposed procedure were verified by the physician in the pre-procedure area. Mental Status Examination: alert and oriented. Airway Examination: normal oropharyngeal airway and neck mobility. Respiratory Examination: clear to auscultation. CV Examination: normal. Prophylactic Antibiotics: The patient does not require prophylactic antibiotics. Prior Anticoagulants: The patient has taken no anticoagulant or antiplatelet agents except for aspirin. ASA Grade Assessment: II - A patient with mild systemic disease. After reviewing the risks and benefits, the patient was deemed in satisfactory condition to undergo the procedure. The anesthesia plan was to use monitored anesthesia care (MAC). Immediately prior to administration of medications, the patient was re-assessed for adequacy to receive sedatives. The heart rate, respiratory rate, oxygen saturations, blood pressure, adequacy of pulmonary ventilation, and response to care were monitored throughout the procedure. The physical status of the patient was re-assessed after the procedure. After obtaining informed consent, the scope was passed under direct vision. Throughout the procedure, the patient's blood pressure, pulse, and oxygen saturations were monitored continuously. The Duodenoscope was introduced through the mouth, and advanced to the duodenum and used to inject contrast into the bile duct. The ERCP was accomplished without difficulty. The patient tolerated the procedure well. Scope In: 3:25:01 PM Scope Out: 3:34:02 PM Total Procedure Duration Time 0 hours 9 minutes 1 second Findings: The english as a second language teacher film was normal. A biliary stent was visible on the english as a second language teacher film. The bile duct was deeply cannulated with the short-nosed traction sphincterotome. Contrast was injected. I personally interpreted the bile duct images. There was brisk flow of contrast through the ducts. Image quality was excellent. Contrast extended to the entire biliary tree. Opacification of the entire opacified area and entire biliary tree was successful. The maximum diameter of the ducts was 10 mm. The lower third of the main bile duct contained a single localized stenosis 6 mm in length. A straight Roadrunner wire was passed into the biliary tree. A 5 mm biliary sphincterotomy was made with a traction (standard) sphincterotome using ERBE electrocautery. There was no post-sphincterotomy bleeding. The biliary tree was swept with a 12 mm balloon starting at the upper third of the main bile duct, middle third of the main bile duct, lower third of the main duct, bifurcation, left intrahepatic duct(s), left main hepatic duct, right intrahepatic duct(s) and right main hepatic duct. Sludge was swept from the duct. All stones were removed. One stent was removed from the biliary tree using a snare and sent for cytology. The stent was found to be patent via the water column test. 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 - Choledocholithiasis was found. Complete removal was accomplished by biliary sphincterotomy and balloon extraction. - A biliary sphincterotomy was performed. - The biliary tree was swept. - One stent was removed from the biliary tree. Procedure Code(s): --- Professional --- 75953, Endoscopic retrograde cholangiopancreatography (ERCP); with removal of foreign body(s) or stent(s) from biliary/pancreatic duct(s) 14688, Endoscopic retrograde cholangiopancreatography (ERCP); with removal of calculi/debris from biliary/pancreatic duct(s) 22915, Endoscopic retrograde cholangiopancreatography (ERCP); with sphincterotomy/papillotomy 14615, 26, Endoscopic catheterization of the biliary ductal system, radiological supervision and interpretation CPT copyright 2021 [employer]. All rights reserved. The codes documented in this report are preliminary and upon loom mechanic review may be revised to meet current compliance requirements. Denys Babin DO 06/15/2025 3:39:38 PM This report has been signed electronically. Number of Addenda: 0 Note Initiated On: 06/15/2025 3:05 PM
--- NOTE | 2025-06-15 15:40 | OP.PROVAT_ITS ---
06/15/2025 Shira Arias Re : ERCP procedure for Jp Beltran [place] This procedure was performed on Sunday, June 15, 2025. My impressions and recommendations are as follows: Impressions : - A single localized biliary stricture was found in the lower third of the main bile duct. - Choledocholithiasis was found. Complete removal was accomplished by biliary sphincterotomy and balloon extraction. - A biliary sphincterotomy was performed. - The biliary tree was swept. - One stent was removed from the biliary tree. Recommendations : My findings are described in the full procedure note, which is enclosed. If I can be of further assistance, please feel free to contact me at . Sincerely, Denys Babin, 06/15/2025 3:39:38 PM This report has been signed electronically.
--- NOTE | 2025-06-15 15:47 | PCM.POST.ANE ---
Anesthesia: Postop Eval I Current Vital Signs Temperature: 97.5 F Pulse Rate: 78 Blood Pressure: 132/82 Respiratory Rate: 16 Pulse Ox: 95 Assessment Airway patent: Yes Spontaneous unlabored respirations: Yes nausea: No Vomiting: No Anesthesia Complication: No Fluid Hydration Crystalloid volume administer (ml): 700 Total IV fluid infused: 700 Progress Note Anesthesia document: Postop Eval 1 completed: Yes
--- NOTE | 2025-06-15 17:01 | POSTOPAN2_ITS ---
Anesthesia Postop Eval I Sum Postop Eval Completion status Anesthesia document: Postop Eval 1 completed: Yes Anesthesia Postop Eval I Summary Anesthesia Postop Eval I Summary: Anesthesia Postop Eval I: Assessment Summary Airway patent Yes 06/15/25 15:47 FUR [email or web address] Spontaneous unlabored Yes 06/15/25 15:47 FUR [email or web address] respirations Mental status nausea No 06/15/25 15:47 FUR [email or web address] Vomiting No 06/15/25 15:47 FUR [email or web address] Anesthesia Postop Eval I: Fluid Summary Crystalloid volume administer 700 06/15/25 15:47 FUR [email or web address] (ml) Colloids volume administered ( ml) Blood Product volume administered (ml) Total IV fluid infused 700 06/15/25 15:47 FUR [email or web address] Anesthesia Postop Eval I: Summary Notes Anesthesia Complication No 06/15/25 15:47 FUR [email or web address] Anesthesia Complication Comment: Post-operative progress note Anesthesia: Postop Eval II Evaluation Mental status: Awake and Calm Pain Level: 0 nausea: No Vomiting: No Complications Anesthesia Complication: No
--- NOTE | 2025-06-15 17:01 | PCM.POSTANE2 ---
Anesthesia Postop Eval I Sum Postop Eval Completion status Anesthesia document: Postop Eval 1 completed: Yes Anesthesia Postop Eval I Summary Anesthesia Postop Eval I Summary: Anesthesia Postop Eval I: Assessment Summary Airway patent Yes 06/15/25 15:47 WAITER/WAITRESS [email or web address] Spontaneous unlabored Yes 06/15/25 15:47 WAITER/WAITRESS [email or web address] [email or web address] respirations Mental status nausea No 06/15/25 15:47 WAITER/WAITRESS [email or web address] Vomiting No 06/15/25 15:47 WAITER/WAITRESS [email or web address] Anesthesia Postop Eval I: Fluid Summary Crystalloid volume administer 700 06/15/25 15:47 WAITER/WAITRESS [email or web address] (ml) Colloids volume administered ( ml) Blood Product volume administered (ml) Total IV fluid infused 700 06/15/25 15:47 WAITER/WAITRESS [email or web address] Anesthesia Postop Eval I: Summary Notes Anesthesia Complication No 06/15/25 15:47 WAITER/WAITRESS [email or web address] Anesthesia Complication Comment: Post-operative progress note Anesthesia: Postop Eval II Evaluation Mental status: Awake and Calm Pain Level: 0 nausea: No Vomiting: No Complications Anesthesia Complication: No
--- OUTSIDE RECORDS SUMMARY | 2025-06-15 22:44 | XMS RPT_ITS | CCD ---
Author Organization [facility] Care Team Providers Care Circulation Analyst Name Role Phone LORSON TERMITE TECHNICIAN-GAMEMASTER, SHIRA Primary Care Physician SWANSIGER TERMITE TECHNICIAN-GAMEMASTER, CAYLA Griffiths Attending U navailable LORSON TERMITE TECHNICIAN-GAMEMASTER, [place] Primary Care Unavail able SWANSIGER TERMITE TECHNICIAN-GAMEMASTER, CAYLA Griffiths Attending U navailable LORSON TERMITE TECHNICIAN-GAMEMASTER, [place] Primary Care Unavail able LORSON TERMITE TECHNICIAN-GAMEMASTER, SHIRA Attending Unavail able LORSON TERMITE TECHNICIAN-GAMEMASTER, [place] Primary Care Unavail able SWANSIGER TERMITE TECHNICIAN-GAMEMASTER, CAYLA Griffiths Attending U navailable LORSON TERMITE TECHNICIAN-GAMEMASTER, [place] Primary Care Unavail able LORSON TERMITE TECHNICIAN-GAMEMASTER, [place] Primary Care Unavail able SWANSIGER TERMITE TECHNICIAN-GAMEMASTER, CAYLA Griffiths Attending U navailable SEFFENS TERMITE TECHNICIAN-GAMEMASTER, VANGIE Attending Unavai lable LORSON TERMITE TECHNICIAN-GAMEMASTER, [place] Primary [facility] Unavail able Lorson HAND PAINT MIXER-C, [place] Primary Care Provider Dr. Rod Ross DO Emergency Provider Paiz DO, Dr. Ann Admit Provider Unavail able Dr. Seth Paiz DO Other Provider Unavail able Dr. Edwina Kimball DO Attending Provider Dr. Cruz Arciniega DO Other Provider [phone] Dr. Seth Paiz DO Referring Provider Unav ailDr. Denys Suarez DO Attending Provider Dr. Jose Lubin MD Attending Provider [phone] Dr. Jose Lubin MD Referring Provider Dr. Cruz Arciniega DO Attending Provider Jigar DO, Dr. Bland Other Provider Lorson HAND PAINT MIXER-C, Shira Referring Provider [phone] Hu CEVALLOS, [...] Amee CEVALLOS, Dr. Garcia Attending Provider Khang HAND PAINT MIXER-C, Cayla Attending Provider Khang HAND PAINT MIXER-C, Cayla Referring Provider SANDIE TERMITE TECHNICIAN-GAMEMASTER, CAYLA Griffiths Attending U navailable LORSON TERMITE TECHNICIAN-GAMEMASTER, [place] Primary Care Unavail able SANDIE TERMITE TECHNICIAN-GAMEMASTER, CAYLA Griffiths Attending U navailable LORSON TERMITE TECHNICIAN-GAMEMASTER, [place] Primary Care Unavail able MICHENER TERMITE TECHNICIAN-GAMEMASTER, MICHELA Griffiths Attending Unav ailable LORSON TERMITE TECHNICIAN-GAMEMASTER, [place] Primary Care Unavail able Lorson HAND PAINT MIXER-C, [place] Primary Care Provider [phone] John CEVALLOS, Dr. Vasquez Attending Provider John CEVALLOS, Dr. Vasquez Referring Provider Juana HAND PAINT MIXER-C, Shira Referring Provider [phone] Olaf NAVARRO, Dr. Mcfarlane Attending Provider Primitivo NAVARRO, Dr. Arroyo Other Provider [phone] Hu CEVALLOS, Dr. Maya Attending Provider Hu CEVALLOS, Dr. Maya Referring Provider Jonelle HAND PAINT MIXER-C, Michela K Attending Provider Unava alexa Sal HAND PAINT MIXER-C, Michela K Referring Provider Unava alexa Redd MD, Dr. Lyon Attending Provider Nvaid CEVALLOS, Dr. Lyon Referring Provider Rene CEVALLOS, Dr. Castellano Other Provider Unavailable Navid CEVALLOS, Dr. Lyon Admit Provider Maverick PA-C, Bing Attending Provider Maverick PA-C, Bing Referring Provider Juana HAND PAINT MIXER-C, Shira Primary Care Provider Navid CEVALLOS, Dr. Lyon Attending Provider Navid CEVALLOS, Dr. Lyon Other Provider Juana HAND PAINT MIXER-C, Shira Referring Provider Dr. Denys Babin DO Attending Provider Dr. Denys Babin DO Other Provider Dr. Benedict Phillip DO Emergency Provider Nannette CEVALLOS, Dr. Eileen Steel Attending Provider Nannette CEVALLOS, Dr. Eileen Steel Admit Provider Lorson HAND PAINT MIXER-C, Shira Primary Care Provider Jonelle HAND PAINT MIXER-C, Michela K Attending Provider Unava ilable Jonelle HAND PAINT MIXER-C, Michela K Referring Provider Eliseva alexa Brunson MD, Dr. Eileen Steel Admit Provider Nannette CEVALLOS, Dr. Eileen Steel Other Provider Jessica CEVALLOS, Dr. Quiñonez Other Provider [phone] Mark CEVALLOS, Dr. Veronica Myles Attending Provider Irina CEVALLOS, Dr. Coleman Other Provider Mark CEVALLOS, Dr. Veronica Myles Other Provider Khang CALL[place]-CCayla Attending Provider Dr. Jose Lubin MD Attending Provider [phone] Khang HAND PAINT MIXER-C, Cayla Referring Provider Seth Paiz Consulting Unavailable Seth Paiz Referring Unavailable Seth Paiz Admitting Unavailable Lorson HAND PAINT MIXER, [facility] Unavailable Denys Babin Attending Unavailable Cruz Arciniega Consulting Unavailable Cayla Quiñonez Attending Unavailable Khang Lopez Consulting Unavailable Lorson HAND PAINT MIXER, [facility] Unavailable Eileen Brunson Admitting Unavailable Koram, Veronica Shameka Referring Unavailable Eileen Brunson Consulting Unavailable Koram, Veronica Shameka Consulting Unavailable L[place]on HAND PAINT MIXER, [facility] Unavailable Eileen Brunson Attending Unavailable Gray López Consulting Unavailable Camron Shoemaker Attending Unavailable Camron Shoemaker Referring Unavailable [place]on HAND PAINT MIXER, [facility] Unavailable Camron Shoemaker Consulting Unavailable Jonelle HAND PAINT MIXER, Michela Aye Referring Unavailabl e Michener HAND PAINT MIXER, Michela Griffiths Attending Unavailabl e Lorson HAND PAINT MIXER, [facility] Unavailable Cayla Quiñonez Referring Unavailable Cayla Quiñonez Attending Unavailable Lorson HAND PAINT MIXER, [facility] Unavailable Denys Babin Attending Unavailable Seth Paiz Referring Unavailable [place] HAND PAINT MIXER, [facility] Unavailable Pedro Lopez Referring Unavailable Pedro Lopez Attending Unavailable [place] HAND PAINT MIXER, [facility] Unavailable Edwnia Kimball Attending Unavailable Edwina Kimball Consulting Unavailable Cayla Quiñonez Attending Unavailable Lorson HAND PAINT MIXER, [place] Referring Unavailable Lorson HAND PAINT MIXER, [facility] Unavailable Camron Shoemaker Attending Unavailable Lorson HAND PAINT MIXER, [place] Referring Unavailable L[place]on HAND PAINT MIXER, [facility] Unavailable Lorson HAND PAINT MIXER, [place] Referring Unavailable Francesco Lui Attending Unavailable Lorson HAND PAINT MIXER, [facility] Unavailable Cayla Quiñonez Attending Unavailable Lorson HAND PAINT MIXER, [facility] Unavailable Lorson HAND PAINT MIXER, [place] Referring Unavailable Lorson HAND PAINT MIXER, [facility] Unavailable Bing Hadley Attending Unavailable L[place]on HAND PAINT MIXER, [place] Referring Unavailable Bing Hadley Attending Unavailable Lorson HAND PAINT MIXER, [facility] Unavailable Lorson HAND PAINT MIXER, [place] Referring Unavailable Lorson HAND PAINT MIXER, [facility] Unavailable Bing Hadley Attending Unavailable Lorson HAND PAINT MIXER, [place] Referring Unavailable Mostreddy Cruz Consulting Unavailable eller, Cruz Admitting Unavailable Francesco Lui Attending Unavailable L[place]on HAND PAINT MIXER, [facility] Unavailable Francesco Lui Consulting Unavailable Cruz Arciniega Attending Unavailable Bing Hadley Attending Unavailable Friend, Denys Consulting Unavailable Olaf, Denys Attending Unavailable Lorson HAND PAINT MIXER, [place] Referring Unavailable Lorson HAND PAINT MIXER, [facility] Unavailable Camron Shoemaker Attending Unavailable Navid, Camron Referring Unavailable Bortz, Camron Admitting Unavailable Rene, Gray Consulting Unavailable Lorson HAND PAINT MIXER, [facility] Care Unavailable Bortz, Camron Consulting Unavailable Lorson HAND PAINT MIXER, [facility] Unavailable Friend, Denys Attending Unavailable Friend, Denys Consulting Unavailable Lorson HAND PAINT MIXER, [place] Referring Unavailable Olaf, Denys Attending Unavailable Jared Arevalo Consulting Unavailable Cruz Arciniega Attending Unavailable Veronica Flores Attending Unavailable [place] HAND PAINT MIXER, Michela K Attending Unavailabl e Michener HAND PAINT MIXER, Michela K Referring Unavailabl e Lorson HAND PAINT MIXER, [facility] Unavailable Friend, Denys Attending Unavailable Lorson HAND PAINT MIXER, [place] Referring Unavailable Lorson HAND PAINT MIXER, [facility] Care Unavailable Rene, Gray Consulting Unavailable Camron Shoemaker Attending Unavailable Bortz, Camron Referring Unavailable Bortz, Camron Admitting Unavailable Lorson HAND PAINT MIXER, [facility] Unavailable Lorson HAND PAINT MIXER, [facility] Unavailable Olaf, Denys Attending Unavailable Lorson HAND PAINT MIXER, [place] Referring Unavailable Primitivo, Cruz Consulting Unavailable Primitivo, Cruz Admitting Unavailable Lorson HAND PAINT MIXER, [facility] Unavailable Francesco Lui Attending Unavailable Camron Shoemaker Consulting Unavailable Irina, Jared Consulting Unavailable Seth Paiz Consulting Unavailable Seth Paiz Admitting Unavailable L[place]on HAND PAINT MIXER, [facility] Care Unavailable Edwina Kimball Attending Unavailable Primitivo Cruz Consulting Unavailable Khang Lopez Consulting Unavailable Lorson HAND PAINT MIXER, [facility] Unavailable Eileen Brunson Admitting Unavailable Veronica Flores Attending Unavailable Eileen Brunson Consulting Unavailable Jared Arevalo Consulting Unavailable Lorson HAND PAINT MIXER, [facility] Care Unavailable Olaf, Denys Attending Unavailable Lorson HAND PAINT MIXER, [place] Referring Unavailable Cayla Quiñonez Unavailable Denys Babin Attending Unavailable Lorson HAND PAINT MIXER, [place] Referring Unavailable Lorson HAND PAINT MIXER, Shira Primary Care Unavailable Seth Paiz Attending Unavailable Camron Shoemaker Consulting Unavailable Jared Arevalo Consulting Unavailable Camron Shoemaker Attending Unavailable Francesco Lui Referring Unavailable Friend, Denys Attending Unavailable Francesco Lui Attending Unavailable Hu, Francesco Referring Unavailable Juana HAND PAINT MIXER, [place] Primary Care Unavailable Cayla Quiñonez Referring Unavailable Cayla Quiñonez Attending Unavailable Lorson HAND PAINT MIXER, [facility] Care Unavailable Lorson HAND PAINT MIXER, [place] Primary Care Unavailable Bing Hadley Attending Unavailable Bing Hadley Referring Unavailable FriendDenys Referring Unavailable Lorson HAND PAINT MIXER, [facility] Care Unavailable AmeeCheo vasquezl Attending Unavailable Lorson HAND PAINT MIXER, [place] Primary Care Unavailable Amee, Clay Referring Unavailable Amee, Jose Attending Unavailable Lorson HAND PAINT MIXER, [facility] Unavailable Amee, Jose Attending Unavailable Lorson HAND PAINT MIXER, [place] Referring Unavailable Lorson HAND PAINT MIXER, [facility] Unavailable Friend, Denys Attending Unavailable Veronica Flores Referring Unavailable Camron Shoemaker Referring Unavailable Camron Redd Attending Unavailable Juana HAND PAINT MIXER, [facility] Unavailable Medications Current Medications Medication Drug Class(es) Dates Sig (Normalized) Sig (Original) [place] (Nk) (4 sources) Start: 05-05-2025 [place] (Nk) A ctive May 05, 2025 12:00am Start: 04-07-2025 [place] (Nk) A ctive April 07, 2025 12:00am Start: 12-31-2024 [place] (Nk) A ctive December 31, 2024 12:00am Completed/Discontinued Medications Medication Drug Class(es) Dates Sig (Normalized) Sig (Original) amoxicillin 875 mg / clavulanate 125 mg oral tablet (20 sources) Penicillin-class Antibacterial Start: 05-07-2025 End: 05-17-2025 Amoxicillin-Pot Clavulanate 875-125 mg tablet Discontinued 1 {tbl} PO TWICE A DAY 14 0 May 07, 2025 12:00am May 17, 2025 9:17am Start: 05-03-2025 End: 05-05-2025 Amoxicillin-Pot Clavulanate 875-125 [...] 10:06am oxyCODONE hydrochloride 5 mg oral tablet (10 sources) Opioid Agonist Start: 03-18-2025 End: 03-25-2025 [...] Problem Classification Problem Date Documented Date Episodic/Chronic Abdominal pain (7 sources) Epigastric pain; Translations: [Epigastric pain] Onset: 5 05-05-2025 Episodic Bacterial infection; unspecified site (20 sources) Bacteremia caused by Gram-negative bacteria; Translations: [Bacteremia] Onset: 5 12-16-2024 Episodic Biliary tract disease (7 sources) Cholangitis; Translations: [Other cholangitis] Onset: 5 05-06-2025 Chronic Biliary tract disease (20 sources) Common bile duct calculus; Translations: [Calculus of bile duct without cholangitis or cholecystitis without obstruction] Onset: 5 09-15-2024 Episodic Comment on above: Patient is [...] 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 I clarified that I recommend proceeding for surgery as soon as possible given his experience to date but would work with their schedule. I did stress that I would recommend no lifting greater than 10 pounds for 5 weeks immediately postop and then a gradual return to activity thereafter. 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, 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 Other liver diseases (1 source) Toxic liver disease, unspecified; 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, unspecified] Onset: 5 Chronic Other liver diseases (20 sources) Jaundice; Translations: [Unspecified jaundice] 2024 Episodic Other liver diseases (20 sources) Elevated liver enzymes level; Translations: [High liver transaminase level] 12-14-2024 Episodic Other liver diseases (12 sources) ALT (SGPT) level raised; Translations: [High alanine aminotransferase (ALT) level] 01-03-2025 Episodic Other liver diseases (4 sources) Enzyme level - finding; Translations: [Elevated transaminase measurement] 05-17-2025 Episodic Other liver diseases (1 source) Abnormal levels of other serum enzymes; Translations: [Abnormal levels of other serum enzymes] Onset: Episodic Other nutritional; endocrine; and metabolic disorders (20 sources) Hyperbilirubinemia; 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 Other nutritional; endocrine; and metabolic disorders (19 sources) Body mass index 25-29 - overweight; Translations: [Overweight] 09-15-2024 Episodic Residual codes; unclassified (7 sources) Past history of procedure; Translations: [Other specified postprocedural states] 05-04-2025 Episodic Residual codes; unclassified (4 sources) Rigor; Translations: [Other general symptoms and signs] 05-04-2025 Episodic Residual codes; unclassified (1 source) Other specified postprocedural states; Translations: [Other specified postprocedural states] Onset: Episodic Residual codes; unclassified (2 sources) Acquired absence of other specified parts of digestive tract; Translations: [Acquired absence of other specified parts of digestive tract] Onset: 5 Episodic Unclassified (12 sources) Patient encounter status 01-29-2024 Unclassified (4 sources) call for appt when able Unclassified (8 sources) Follow-up for elevated liver chemistry, it is decreasing. Unclassified (4 sources) Status post laparoscopic cholecystectomy Unclassified (8 sources) Z90.49 - Acquired absence of other specified parts of digestive tract Unclassified (2 sources) Elevation of levels of liver transaminase levels; Translations: [Elevation of levels of liver transaminase levels] Onset: Past or Other Problems Problem Classification Problem Date Documented Da te Episodic/Chronic Fever of unknown origin (7 sources) Fever; Translations: [Fever, unspecified] Onset: 12-24-2024 05-05-2025 Episodic Other liver diseases (2 sources) Unspecified jaundice; Translations: [Unspecified jaundice] Onset: 12-16-2024 Episodic Other nutritional; endocrine; and metabolic disorders (1 source) Overweight; Translations: [Overweight] Onset: 09-14-2024 Episodic Results Test Name Value Interpretation Reference Range Facility MR/PAT.ANEon 06-10-2025 MR/PAT.ANE Normal [facility] Bilirubin directOrdered By: Cayla Quiñonez on 05-17-2025 Bilirubin.direct [Mass/Vol] 0.40 mg/dL High 0.00-0.30 [facility] Bilirubin, totalOrdered By: Cayla Quiñonez on 05-17-2025 Bilirubin [Mass/Vol] 0.75 mg/dL 0.00-1.30 [facility] Gastroenterology Visit Repor ton 05-17-2025 Gastroenterology Visit Report Normal [facility] Laboratory - Chemistry and C hemistry - challengeOrdered By: Cayla Quiñonez on 05-17-2025 AST [Catalytic activity/Vol] 35 U/L <38 [facility] Liver Profileon 05-17-2025 Albumin [Mass/Vol] 4.2 g/dL Normal 3.5-5.0 [facility] Comment on above: Order Comment: PT DO ES NOT WANT CHANDS ORDER Performed By: #### L 500.3400 ####[facility] [address] [place], [place], [id number] ALK PHOS 104 U/L Normal 40-129 [facility] Comment on above: Order Comment: PT DO ES NOT WANT CHANDS ORDER Performed By: #### L 500.3400 ####[facility] [address] [place], [address] ALT [Catalytic activity/Vol] 77 U/L High <=46 [facility] Comment on above: Order Comment: PT DO ES NOT WANT CHANDS ORDER Performed By: #### L 500.3400 ####[facility] [address] [place], [address] AST [Catalytic activity/Vol] 35 U/L Normal <=37 [facility] Comment on above: Order Comment: PT DO ES NOT WANT CHANDS ORDER Performed By: #### L 500.3400 ####[facility] [address] [place], [address] Bilirubin [Mass/Vol] 0.75 mg/dL Normal 0.00-1.30 [facility] Comment on above: Order Comment: PT DO ES NOT WANT CHANDS ORDER Performed By: #### L 500.3400 ####[facility] [address] [place], [address] Bilirubin.direct [Mass/Vol] 0.40 mg/dL High 0.00-0.30 [facility] Comment on above: Order Comment: PT DO ES NOT WANT CHANDS ORDER Performed By: #### L 500.3400 ####[facility] [address] [place], [address] Globulin (S) [Mass/Vol] 2.8 g/dL Normal 2.2-4.2 [facility] Comment on above: Order Comment: PT DO ES NOT WANT CHANDS ORDER Performed By: #### L 500.3400 ####[facility] [address] [place], [address] T PROT 7.0 g/dL Normal 5.9-8.4 [facility] Comment on above: Order Comment: PT DO ES NOT WANT CHANDS ORDER Performed By: #### L 500.3400 ####[facility] [address] [place], [address] Serum globulin measurementOr dered By: Cayla Quiñonez on 05-17-2025 Globulin (S) [Mass/Vol] 2.8 g/dL 2.2-4.2 [facility] Serum or plasma alanine mays otransferase (ALT) measurementOrdered By: Cayla Quiñonez on 05-17-2025 ALT [Catalytic activity/Vol] 77 U/L High <47 [facility] Serum or plasma albumin marquise urement (mass/volume)Ordered By: Cayla Quiñonez on 05-17-2025 Albumin [Mass/Vol] 4.2 g/dL 3.5-5.0 [facility] Serum or plasma alkaline daniel sphatase measurementOrdered By: Cayla Quiñonez on 05-17-2025 ALP [Catalytic activity/Vol] 104 U/L 40-129 [facility] Total proteinOrdered By: Vanessa Quiñonez on 05-17-2025 Protein [Mass/Vol] 7.0 g/dL 5.9-8.4 [facility] CBC W/Diff, Automatedon 04-30 Absolute Neut Normal 2.0-7.7 [facility] Comment on above: Result Comment: Canc elled via OM: Order cancelled - Patient discharged Performed By: #### L 100.0100 ####[facility] [address] [place], [address] HCT Normal 40-54 [facility] Comment on above: Result Comment: Canc elled via OM: Order cancelled - Patient discharged Performed By: #### L 100.0100 ####[facility] [address] [place], [address] HGB Normal 13.0-16.5 [facility] Comment on above: Result Comment: Canc elled via OM: Order cancelled - Patient discharged Performed By: #### L 100.0100 ####[facility] [address] [place], [address] MCH Normal 27.0-32.0 [facility] Comment on above: Result Comment: Canc elled via OM: Order cancelled - Patient discharged Performed By: #### L 100.0100 ####[facility] [address] [place], [address] MCHC Normal 32-36 [facility] Comment on above: Result Comment: Canc elled via OM: Order cancelled - Patient discharged Performed By: #### L 100.0100 ####[facility] [address] [place], [address] MCV Normal 80-94 [facility] Comment on above: Result Comment: Canc elled via OM: Order cancelled - Patient discharged Performed By: #### L 100.0100 ####[facility] [address] [place], [address] NEUT% Normal 47-70 [facility] Comment on above: Result Comment: Canc elled via OM: Order cancelled - Patient discharged Performed By: #### L 100.0100 ####[facility] [address] [place], [address] PLT Normal 150-450 [facility] Comment on above: Result Comment: Canc elled via OM: Order cancelled - Patient discharged Performed By: #### L 100.0100 ####[facility] [address] [place], [address] RBC Normal 4.6-6.2 [facility] Comment on above: Result Comment: Canc elled via OM: Order cancelled - Patient discharged Performed By: #### L 100.0100 ####[facility] [address] [place], [address] RDW CV Normal 11.6-14.6 [facility] Comment on above: Result Comment: Canc elled via OM: Order cancelled - Patient discharged Performed By: #### L 100.0100 ####[facility] [address] [place], [address] RDW SD Normal 35.1-43.9 [facility] Comment on above: Result Comment: Canc elled via OM: Order cancelled - Patient discharged Performed By: #### L 100.0100 ####[facility] [address] [place], [address] WBC Normal 4.4-11.0 [facility] Comment on above: Result Comment: Canc elled via OM: Order cancelled - Patient discharged Performed By: #### L 100.0100 ####[facility] [address] [place], [address] CBC W/Diff, Automatedon 08- Absolute Neut Normal 2.0-7.7 [facility] Comment on above: Result Comment: Canc elled via OM: Order cancelled - Patient discharged Performed By: #### L 100.0100 ####[facility] [address] [place], [address] HCT Normal 40-54 [facility] Comment on above: Result Comment: Canc elled via OM: Order cancelled - Patient discharged Performed By: #### L 100.0100 ####[facility] [address] [place], [address] HGB Normal 13.0-16.5 [facility] Comment on above: Result Comment: Canc elled via OM: Order cancelled - Patient discharged Performed By: #### L 100.0100 ####[facility] [address] [place], [address] MCH Normal 27.0-32.0 [facility] Comment on above: Result Comment: Canc elled via OM: Order cancelled - Patient discharged Performed By: #### L 100.0100 ####[facility] [address] [place], [address] MCHC Normal 32-36 [facility] [facility] Comment on above: Result Comment: Canc elled via OM: Order cancelled - Patient discharged Performed By: #### L 100.0100 ####[facility] [address] [place], [address] MCV Normal 80-94 [facility] Comment on above: Result Comment: Canc elled via OM: Order cancelled - Patient discharged Performed By: #### L 100.0100 ####[facility] [address] [place], [address] NEUT% Normal 47-70 [facility] Comment on above: Result Comment: Canc elled via OM: Order cancelled - Patient discharged Performed By: #### L 100.0100 ####[facility] [address] [place], [address] PLT Normal 150-450 [facility] Comment on above: Result Comment: Canc elled via OM: Order cancelled - Patient discharged Performed By: #### L 100.0100 ####[facility] [address] [place], [address] RBC Normal 4.6-6.2 [facility] Comment on above: Result Comment: Canc elled via OM: Order cancelled - Patient discharged Performed By: #### L 100.0100 ####[facility] [address] [place], [address] RDW CV Normal 11.6-14.6 [facility] Comment on above: Result Comment: Canc elled via OM: Order cancelled - Patient discharged Performed By: #### L 100.0100 ####[facility] [address] [place], [address] RDW SD Normal 35.1-43.9 [facility] Comment on above: Result Comment: Canc elled via OM: Order cancelled - Patient discharged Performed By: #### L 100.0100 ####[facility] [address] [place], [address] WBC Normal 4.4-11.0 [facility] Comment on above: Result Comment: Canc elled via OM: Order cancelled - Patient discharged Performed By: #### L 100.0100 ####[facility] [address] [place], [address] CBC W/Diff, Automatedon 08- Absolute Neut Normal 2.0-7.7 [facility] Comment on above: Result Comment: Canc elled via OM: Order cancelled - Patient discharged Performed By: #### L 100.0100 ####[facility] [address] [place], [address] HCT Normal 40-54 [facility] Comment on above: Result Comment: Canc elled via OM: Order cancelled - Patient discharged Performed By: #### L 100.0100 ####[facility] [address] [place], [address] HGB Normal 13.0-16.5 [facility] Comment on above: Result Comment: Canc elled via OM: Order cancelled - Patient discharged Performed By: #### L 100.0100 ####[facility] [address] [place], [address] MCH Normal 27.0-32.0 [facility] Comment on above: Result Comment: Canc elled via OM: Order cancelled - Patient discharged Performed By: #### L 100.0100 ####[facility] [address] [place], [address] MCHC Normal 32-36 [facility] Comment on above: Result Comment: Canc elled via OM: Order cancelled - Patient discharged Performed By: #### L 100.0100 ####[facility] [address] [place], [address] MCV Normal 80-94 [facility] Comment on above: Result Comment: Canc elled via OM: Order cancelled - Patient discharged Performed By: #### L 100.0100 ####[facility] [address] [place], [address] NEUT% Normal 47-70 [facility] Comment on above: Result Comment: Canc elled via OM: Order cancelled - Patient discharged Performed By: #### L 100.0100 ####[facility] [address] [place], [address] PLT Normal 150-450 [facility] Comment on above: Result Comment: Canc elled via OM: Order cancelled - Patient discharged Performed By: #### L 100.0100 ####[facility] [address] [place], [address] RBC Normal 4.6-6.2 [facility] Comment on above: Result Comment: Canc elled via OM: Order cancelled - Patient discharged Performed By: #### L 100.0100 ####[facility] [address] [place], [address] RDW CV Normal 11.6-14.6 [facility] Comment on above: Result Comment: Canc elled via OM: Order cancelled - Patient discharged Performed By: #### L 100.0100 ####[facility] [address] [place], [address] RDW SD Normal 35.1-43.9 [facility] Comment on above: Result Comment: Canc elled via OM: Order cancelled - Patient discharged Performed By: #### L 100.0100 ####[facility] [address] [place], [address] WBC Normal 4.4-11.0 [facility] Comment on above: Result Comment: Canc elled via OM: Order cancelled - Patient discharged Performed By: #### L 100.0100 ####[facility] [address] [place], [address] CBC W/Diff, Automatedon 08-1 Absolute Neut Normal 2.0-7.7 [facility] Comment on above: Result Comment: Canc elled via OM: Order cancelled - Patient discharged Performed By: #### L 500.4050, L100.0100 ####[facility] [address] [place], [address] HCT Normal 40-54 [facility] Comment on above: Result Comment: Canc elled via OM: Order cancelled - Patient discharged Performed By: #### L 500.4050, L100.0100 ####[facility] [address] [place], [address] HGB Normal 13.0-16.5 [facility] Comment on above: Result Comment: Canc elled via OM: Order cancelled - Patient discharged Performed By: #### L 500.4050, L100.0100 ####[facility] [address] [place], [address] MCH Normal 27.0-32.0 [facility] Comment on above: Result Comment: Canc elled via OM: Order cancelled - Patient discharged Performed By: #### L 500.4050, L100.0100 ####[facility] [address] [place], [address] MCHC Normal 32-36 [facility] Comment on above: Result Comment: Canc elled via OM: Order cancelled - Patient discharged Performed By: #### L 500.4050, L100.0100 ####[facility] [address] [place], [address] MCV Normal 80-94 [facility] Comment on above: Result Comment: Canc elled via OM: Order cancelled - Patient discharged Performed By: #### L 500.4050, L100.0100 ####[facility] [address] [place], [address] NEUT% Normal 47-70 [facility] Comment on above: Result Comment: Canc elled via OM: Order cancelled - Patient discharged Performed By: #### L 500.4050, L100.0100 ####[facility] [address] [place], [address] PLT Normal 150-450 [facility] Comment on above: Result Comment: Canc elled via OM: Order cancelled - Patient discharged Performed By: #### L 500.4050, L100.0100 ####[facility] [address] [place], [address] RBC Normal 4.6-6.2 [facility] Comment on above: Result Comment: Canc elled via OM: Order cancelled - Patient discharged Performed By: #### L 500.4050, L100.0100 ####[facility] [address] [place], [address] RDW CV Normal 11.6-14.6 [facility] Comment on above: Result Comment: Canc elled via OM: Order cancelled - Patient discharged Performed By: #### L 500.4050, L100.0100 ####[facility] [address] [place], [address] RDW SD Normal 35.1-43.9 [facility] Comment on above: Result Comment: Canc elled via OM: Order cancelled - Patient discharged Performed By: #### L 500.4050, L100.0100 ####[facility] [address] [place], [address] WBC Normal 4.4-11.0 [facility] Comment on above: Result Comment: Canc elled via OM: Order cancelled - Patient discharged Performed By: #### L 500.4050, L100.0100 ####[facility] [address] [place], [address] Comprehensive Metabolic Prof ilon 05-10-2025 ALB Normal 3.5-5.0 [facility] Comment on above: Result Comment: Canc elled via OM: Order cancelled - Patient discharged Performed By: #### L 500.4050, L100.0100 ####[facility] [address] [place], [address] ALK PHOS Normal 40-129 [facility] Comment on above: Result Comment: Canc elled via OM: Order cancelled - Patient discharged Performed By: #### L 500.4050, L100.0100 ####[facility] [address] [place], [address] ALT Normal <=46 [facility] Comment on above: Result Comment: Canc elled via OM: Order cancelled - Patient discharged Performed By: #### L 500.4050, L100.0100 ####[facility] [address] [place], [address] AST Normal <=37 [facility] Comment on above: Result Comment: Canc elled via OM: Order cancelled - Patient discharged Performed By: #### L 500.4050, L100.0100 ####[facility] [address] [place], [address] BUN Normal 4-19 [facility] Comment on above: Result Comment: Canc elled via OM: Order cancelled - Patient discharged Performed By: #### L 500.4050, L100.0100 ####[facility] [address] [place], [address] BUN/CRE Normal 10-20 [facility] Comment on above: Result Comment: Canc elled via OM: Order cancelled - Patient discharged Performed By: #### L 500.4050, L100.0100 ####[facility] [address] [place], [address] Calcium Normal 7.6-11.0 [facility] Comment on above: Result Comment: Canc elled via OM: Order cancelled - Patient discharged Performed By: #### L 500.4050, L100.0100 ####[facility] [address] [place], [address] CL Normal 98-108 [facility] Comment on above: Result Comment: Canc elled via OM: Order cancelled - Patient discharged Performed By: #### L 500.4050, L100.0100 ####[facility] [address] [place], [address] CO2 Normal 21.0-32.0 [facility] Comment on above: Result Comment: Canc elled via OM: Order cancelled - Patient discharged Performed By: #### L 500.4050, L100.0100 ####[facility] [address] [place], [address] CREAT,SERUM Normal 0.70-1.20 [facility] Comment on above: Result Comment: Canc elled via OM: Order cancelled - Patient discharged Performed By: #### L 500.4050, L100.0100 ####[facility] [address] [place], [address] eGFR Normal >60 [facility] Comment on above: Result Comment: Canc elled via OM: Order cancelled - Patient discharged Performed By: #### L 500.4050, L100.0100 ####[facility] [address] [place], [address] GAP Normal 5-15 [facility] Comment on above: Result Comment: Canc elled via OM: Order cancelled - Patient discharged Performed By: #### L 500.4050, L100.0100 ####[facility] [address] [place], [address] GLU Normal 70-99 [facility] Comment on above: Result Comment: Canc elled via OM: Order cancelled - Patient discharged Performed By: #### L 500.4050, L100.0100 ####[facility] [address] [place], [address] Potassium Normal 3.3-5.1 [facility] Comment on above: Result Comment: Canc elled via OM: Order cancelled - Patient discharged Performed By: #### L 500.4050, L100.0100 ####[facility] [address] [place], [address] T BILI Normal 0.00-1.30 [facility] Comment on above: Result Comment: Canc elled via OM: Order cancelled - Patient discharged Performed By: #### L 500.4050, L100.0100 ####[facility] [address] [place], [address] T PROT Normal 5.9-8.4 [facility] Comment on above: Result Comment: Canc elled via OM: Order cancelled - Patient discharged Performed By: #### L 500.4050, L100.0100 ####[facility] [address] [place], [address] Comprehensive Metabolic Profil Normal 133-145 [facility] Comment on above: Result Comment: Canc elled via OM: Order cancelled - Patient discharged Performed By: #### L 500.4050, L100.0100 ####[facility] [address] [place], [address] CBC W/Diff, Automatedon 08-1 0-2024 Absolute Neut Normal 2.0-7.7 [facility] Comment on above: Result Comment: Canc elled via OM: Order cancelled - Patient discharged Performed By: #### L 100.0100, L500.4050 ####[facility] [address] [place], [address] HCT Normal 40-54 [facility] Comment on above: Result Comment: Canc elled via OM: Order cancelled - Patient discharged Performed By: #### L 100.0100, L500.4050 ####[facility] [address] [place], [address] HGB Normal 13.0-16.5 [facility] Comment on above: Result Comment: Canc elled via OM: Order cancelled - Patient discharged Performed By: #### L 100.0100, L500.4050 ####[facility] [address] [place], [address] MCH Normal 27.0-32.0 [facility] Comment on above: Result Comment: Canc elled via OM: Order cancelled - Patient discharged Performed By: #### L 100.0100, L500.4050 ####[facility] [address] [place], [address] MCHC Normal 32-36 [facility] Comment on above: Result Comment: Canc elled via OM: Order cancelled - Patient discharged Performed By: #### L 100.0100, L500.4050 ####[facility] [address] [place], [address] MCV Normal 80-94 [facility] Comment on above: Result Comment: Canc elled via OM: Order cancelled - Patient discharged Performed By: #### L 100.0100, L500.4050 ####[facility] [address] [place], [address] NEUT% Normal 47-70 [facility] Comment on above: Result Comment: Canc elled via OM: Order cancelled - Patient discharged Performed By: #### L 100.0100, L500.4050 ####[facility] [address] [place], [address] PLT Normal 150-450 [facility] Comment on above: Result Comment: Canc elled via OM: Order cancelled - Patient discharged Performed By: #### L 100.0100, L500.4050 ####[facility] [address] [place], [address] RBC Normal 4.6-6.2 [facility] Comment on above: Result Comment: Canc elled via OM: Order cancelled - Patient discharged Performed By: #### L 100.0100, L500.4050 ####[facility] [address] [place], [address] RDW CV Normal 11.6-14.6 [facility] Comment on above: Result Comment: Canc elled via OM: Order cancelled - Patient discharged Performed By: #### L 100.0100, L500.4050 ####[facility] [address] [place], [address] RDW SD Normal 35.1-43.9 [facility] Comment on above: Result Comment: Canc elled via OM: Order cancelled - Patient discharged Performed By: #### L 100.0100, L500.4050 ####[facility] [address] [place], [address] WBC Normal 4.4-11.0 [facility] Comment on above: Result Comment: Canc elled via OM: Order cancelled - Patient discharged Performed By: #### L 100.0100, L500.4050 ####[facility] [address] [place], [address] Comprehensive Metabolic Prof ilon 05-09-2025 ALB Normal 3.5-5.0 [facility] Comment on above: Result Comment: Canc elled via OM: Order cancelled - Patient discharged Performed By: #### L 100.0100, L500.4050 ####[facility] [address] [place], [address] ALK PHOS Normal 40-129 [facility] Comment on above: Result Comment: Canc elled via OM: Order cancelled - Patient discharged Performed By: #### L 100.0100, L500.4050 ####[facility] [address] [place], [address] ALT Normal <=46 [facility] Comment on above: Result Comment: Canc elled via OM: Order cancelled - Patient discharged Performed By: #### L 100.0100, L500.4050 ####[facility] [address] [place], [address] AST Normal <=37 [facility] Comment on above: Result Comment: Canc elled via OM: Order cancelled - Patient discharged Performed By: #### L 100.0100, L500.4050 ####[facility] [address] [place], [address] BUN Normal 4-19 [facility] Comment on above: Result Comment: Canc elled via OM: Order cancelled - Patient discharged Performed By: #### L 100.0100, L500.4050 ####[facility] [address] [place], [address] BUN/CRE Normal 10-20 [facility] Comment on above: Result Comment: Canc elled via OM: Order cancelled - Patient discharged Performed By: #### L 100.0100, L500.4050 ####[facility] [address] [place], [address] Calcium Normal 7.6-11.0 [facility] Comment on above: Result Comment: Canc elled via OM: Order cancelled - Patient discharged Performed By: #### L 100.0100, L500.4050 ####[facility] [address] [place], [address] CL Normal 98-108 [facility] Comment on above: Result Comment: Canc elled via OM: Order cancelled - Patient discharged Performed By: #### L 100.0100, L500.4050 ####[facility] [address] [place], [address] CO2 Normal 21.0-32.0 [facility] Comment on above: Result Comment: Canc elled via OM: Order cancelled - Patient discharged Performed By: #### L 100.0100, L500.4050 ####[facility] [address] [place], [address] CREAT,SERUM Normal 0.70-1.20 [facility] Comment on above: Result Comment: Canc elled via OM: Order cancelled - Patient discharged Performed By: #### L 100.0100, L500.4050 ####[facility] [address] [place], [address] eGFR Normal >60 [facility] Comment on above: Result Comment: Canc elled via OM: Order cancelled - Patient discharged Performed By: #### L 100.0100, L500.4050 ####[facility] [address] [place], [address] GAP Normal 5-15 [facility] Comment on above: Result Comment: Canc elled via OM: Order cancelled - Patient discharged Performed By: #### L 100.0100, L500.4050 ####[facility] [address] [place], [address] GLU Normal 70-99 [facility] Comment on above: Result Comment: Canc elled via OM: Order cancelled - Patient discharged Performed By: #### L 100.0100, L500.4050 ####[facility] [address] [place], [address] Potassium Normal 3.3-5.1 [facility] Comment on above: Result Comment: Canc elled via OM: Order cancelled - Patient discharged Performed By: #### L 100.0100, L500.4050 ####[facility] [address] [place], [address] T BILI Normal 0.00-1.30 [facility] Comment on above: Result Comment: Canc elled via OM: Order cancelled - Patient discharged Performed By: #### L 100.0100, L500.4050 ####[facility] [address] [place], [address] T PROT Normal 5.9-8.4 [facility] Comment on above: Result Comment: Canc elled via OM: Order cancelled - Patient discharged Performed By: #### L 100.0100, L500.4050 ####[facility] [address] [place], [address] Comprehensive Metabolic Profil Normal 133-145 [facility] Comment on above: Result Comment: Canc elled via OM: Order cancelled - Patient discharged Performed By: #### L 100.0100, L500.4050 ####[facility] [address] [place], [address] CBC W/Diff, Automatedon 08-0 -2024 Absolute Neut Normal 2.0-7.7 [facility] Comment on above: Result Comment: Canc elled via OM: Order cancelled - Patient discharged Performed By: #### L 100.0100, L500.4050 ####[facility] [address] [place], [address] HCT Normal 40-54 [facility] Comment on above: Result Comment: Canc elled via OM: Order cancelled - Patient discharged Performed By: #### L 100.0100, L500.4050 ####[facility] [address] [place], [address] HGB Normal 13.0-16.5 [facility] Comment on above: Result Comment: Canc elled via OM: Order cancelled - Patient discharged Performed By: #### L 100.0100, L500.4050 ####[facility] [address] [place], [address] MCH Normal 27.0-32.0 [facility] Comment on above: Result Comment: Canc elled via OM: Order cancelled - Patient discharged Performed By: #### L 100.0100, L500.4050 ####[facility] [address] [place], [address] MCHC Normal 32-36 [facility] Comment on above: Result Comment: Canc elled via OM: Order cancelled - Patient discharged Performed By: #### L 100.0100, L500.4050 ####[facility] [address] [place], [address] MCV Normal 80-94 [facility] Comment on above: Result Comment: Canc elled via OM: Order cancelled - Patient discharged Performed By: #### L 100.0100, L500.4050 ####[facility] [address] [place], [address] NEUT% Normal 47-70 [facility] Comment on above: Result Comment: Canc elled via OM: Order cancelled - Patient discharged Performed By: #### L 100.0100, L500.4050 ####[facility] [address] [place], [address] PLT Normal 150-450 [facility] Comment on above: Result Comment: Canc elled via OM: Order cancelled - Patient discharged Performed By: #### L 100.0100, L500.4050 ####[facility] [address] [place], [address] RBC Normal 4.6-6.2 [facility] Comment on above: Result Comment: Canc elled via OM: Order cancelled - Patient discharged Performed By: #### L 100.0100, L500.4050 ####[facility] [address] [place], [address] RDW CV Normal 11.6-14.6 [facility] Comment on above: Result Comment: Canc elled via OM: Order cancelled - Patient discharged Performed By: #### L 100.0100, L500.4050 ####[facility] [address] [place], [address] RDW SD Normal 35.1-43.9 [facility] Comment on above: Result Comment: Canc elled via OM: Order cancelled - Patient discharged Performed By: #### L 100.0100, L500.4050 ####[facility] [address] [place], [address] WBC Normal 4.4-11.0 [facility] Comment on above: Result Comment: Canc elled via OM: Order cancelled - Patient discharged Performed By: #### L 100.0100, L500.4050 ####[facility] [address] [place], [address] Comprehensive Metabolic Prof ilon 05-08-2025 ALB Normal 3.5-5.0 [facility] Comment on above: Result Comment: Canc elled via OM: Order cancelled - Patient discharged Performed By: #### L 100.0100, L500.4050 ####[facility] [address] [place], [address] ALK PHOS Normal 40-129 [facility] Comment on above: Result Comment: Canc elled via OM: Order cancelled - Patient discharged Performed By: #### L 100.0100, L500.4050 ####[facility] [address] [place], [address] ALT Normal <=46 [facility] Comment on above: Result Comment: Canc elled via OM: Order cancelled - Patient discharged Performed By: #### L 100.0100, L500.4050 ####[facility] [address] [place], [address] AST Normal <=37 [facility] Comment on above: Result Comment: Canc elled via OM: Order cancelled - Patient discharged Performed By: #### L 100.0100, L500.4050 ####[facility] [address] [place], [address] BUN Normal 4-19 [facility] Comment on above: Result Comment: Canc elled via OM: Order cancelled - Patient discharged Performed By: #### L 100.0100, L500.4050 ####[facility] [address] [place], [address] BUN/CRE Normal 10-20 [facility] Comment on above: Result Comment: Canc elled via OM: Order cancelled - Patient discharged Performed By: #### L 100.0100, L500.4050 ####[facility] [address] [place], [address] Calcium Normal 7.6-11.0 [facility] Comment on above: Result Comment: Canc elled via OM: Order cancelled - Patient discharged Performed By: #### L 100.0100, L500.4050 ####[facility] [address] [place], [address] CL Normal 98-108 [facility] Comment on above: Result Comment: Canc elled via OM: Order cancelled - Patient discharged Performed By: #### L 100.0100, L500.4050 ####[facility] [address] [place], [address] CO2 Normal 21.0-32.0 [facility] Comment on above: Result Comment: Canc elled via OM: Order cancelled - Patient discharged Performed By: #### L 100.0100, L500.4050 ####[facility] [address] [place], [address] CREAT,SERUM Normal 0.70-1.20 [facility] Comment on above: Result Comment: Canc elled via OM: Order cancelled - Patient discharged Performed By: #### L 100.0100, L500.4050 ####[facility] [address] [place], [address] eGFR Normal >60 [facility] Comment on above: Result Comment: Canc elled via OM: Order cancelled - Patient discharged Performed By: #### L 100.0100, L500.4050 ####[facility] [address] [place], [address] GAP Normal 5-15 [facility] Comment on above: Result Comment: Canc elled via OM: Order cancelled - Patient discharged Performed By: #### L 100.0100, L500.4050 ####[facility] [address] [place], [address] GLU Normal 70-99 [facility] Comment on above: Result Comment: Canc elled via OM: Order cancelled - Patient discharged Performed By: #### L 100.0100, L500.4050 ####[facility] [address] [place], [address] Potassium Normal 3.3-5.1 [facility] Comment on above: Result Comment: Canc elled via OM: Order cancelled - Patient discharged Performed By: #### L 100.0100, L500.4050 ####[facility] [address] [place], [address] T BILI Normal 0.00-1.30 [facility] Comment on above: Result Comment: Canc elled via OM: Order cancelled - Patient discharged Performed By: #### L 100.0100, L500.4050 ####[facility] [address] [place], [address] T PROT Normal 5.9-8.4 [facility] Comment on above: Result Comment: Canc elled via OM: Order cancelled - Patient discharged Performed By: #### L 100.0100, L500.4050 ####[facility] [address] [place], [address] Comprehensive Metabolic Profil Normal 133-145 [facility] Comment on above: Result Comment: Canc elled via OM: Order cancelled - Patient discharged Performed By: #### L 100.0100, L500.4050 ####[facility] [address] [place], [address] Absolute lymphocyte countOrd ered By: Veronica Flores on 05-07-2025 Lymphocytes Auto (Unsp spec) [#/Vol] 1.34 10*3/uL 0.83-4.51 [facility] Absolute neutrophil countOrd ered By: Veronicaenma Flores on 05-07-2025 Neutrophils (Bld) [#/Vol] 3.7 10*3/uL 2.0-7.7 [facility] Anion gap in Serum or Plasma Ordered By: Veronica Flores on 05-07-2025 Anion gap [Moles/Vol] 11 mmol/L 5-15 [facility] Automated lymphocyte count a s percentage of total leukocytesOrdered By: Veronica Flores on 05-07-2025 Lymphocytes/100 WBC Auto (Unsp spec) 23.2 % 19-41 [facility] BUN/creatinine ratioOrdered By: Veronicaenma Flores on 05-07-2025 Urea nitrogen/Creatinine [Mass ratio] 10.4 mg/mg 10-20 [facility] Basophil percentageOrdered B y: Veronica Flores on 05-07-2025 Basophils/100 WBC (Bld) 0.7 % 0-1 [facility] Bilirubin, totalOrdered By: Veronica Flores on 05-07-2025 Bilirubin [Mass/Vol] 1.13 mg/dL 0.00-1.30 [facility] CBC W/Diff, Automatedon Absolute Lymph 1.34 X10 3/uL Normal 0.83-4.51 [facility] Comment on above: Performed By: #### L 100.0100, L500.4050 ####[facility] [address] [place], [address] Absolute Neut 3.7 X10 3/uL Normal 2.0-7.7 [facility] Comment on above: Performed By: #### L 100.0100, L500.4050 ####[facility] [address] [place], [address] Basophils/100 WBC (Bld) 0.7 % Normal 0-1 [facility] Comment on above: Performed By: #### L 100.0100, L500.4050 ####[facility] [address] [place], [address] Eosinophils/100 WBC (Bld) 1.6 % Normal 0-5 [facility] Comment on above: Performed By: #### L 100.0100, L500.4050 ####[facility] [address] [place], [address] Erythrocyte distribution width (RBC) [Ratio] 13.2 % Normal 11.6-14.6 [facility] Comment on above: Performed By: #### L 100.0100, L500.4050 ####[facility] [address] [place], [address] Hematocrit (Bld) [Volume fraction] 39.7 % Low 40-54 [facility] Comment on above: Performed By: #### L 100.0100, L500.4050 ####[facility] [address] [place], [address] Hemoglobin (Bld) [Mass/Vol] 13.4 g/dL Normal 13.0-16.5 [facility] Comment on above: Performed By: #### L 100.0100, L500.4050 ####[facility] [address] [place], [address] IG% 0.700 Normal 0.0-0.9 [facility] Comment on above: Result Comment: IG% - Immature Granulocytes (promyelocytes, myelocytes andmetamyelocytes) > 1% indicates that a LEFT SHIFT is Present. Performed By: #### L 100.0100, L500.4050 ####[facility] [address] [place], [address] Lymphocytes/100 WBC (Bld) 23.2 % Normal 19-41 [facility] Comment on above: Performed By: #### L 100.0100, L500.4050 ####[facility] [address] [place], [address] MCH (RBC) [Entitic mass] 29.7 pg Normal 27.0-32.0 [facility] Comment on above: Performed By: #### L 100.0100, L500.4050 ####[facility] [address] [place], [address] MCHC (RBC) [Mass/Vol] 33.8 g/dL Normal 32-36 [facility] Comment on above: Performed By: #### L 100.0100, L500.4050 ####[facility] [address] [place], [address] MCV (RBC) [Entitic vol] 88.0 fL Normal 80-94 [facility] Comment on above: Performed By: #### L 100.0100, L500.4050 ####[facility] [address] [place], [address] Monocytes/100 WBC (Bld) 9.0 % Normal 0-10 [facility] Comment on above: Performed By: #### L 100.0100, L500.4050 ####[facility] [address] [place], [address] Neutrophils/100 WBC (Bld) 64.8 % Normal 47-70 [facility] Comment on above: Performed By: #### L 100.0100, L500.4050 ####[facility] [address] [place], [address] Nucleated RBC (Bld) [#/Vol] 0 10*3/uL Normal 0-5 [facility] Comment on above: Performed By: #### L 100.0100, L500.4050 ####[facility] [address] [place], [address] Platelet mean volume (Bld) [Entitic vol] 9.3 fL Normal 6.2-12.0 [facility] Comment on above: Performed By: #### L 100.0100, L500.4050 ####[facility] [address] [place], [address] Platelets (Bld) [#/Vol] 186 10*3/uL Normal 150-450 [facility] Comment on above: Performed By: #### L 100.0100, L500.4050 ####[facility] [address] [place], [address] RBC (Bld) [#/Vol] 4.51 10*6/uL Low 4.6-6.2 [facility] Comment on above: Performed By: #### L 100.0100, L500.4050 ####[facility] [address] [place], [address] RDW SD 42.6 fl Normal 35.1-43.9 [facility] Comment on above: Performed By: #### L 100.0100, L500.4050 ####[facility] [address] [place], [address] WBC (Bld) [#/Vol] 5.8 10*3/uL Normal 4.4-11.0 [facility] Comment on above: Performed By: #### L 100.0100, L500.4050 ####[facility] [address] [place], [address] Carbon dioxide, total [Moles /volume] in Central venous bloodOrdered By: Veronica Flores on 05-07-2025 CO2 [Moles/Vol] 23.2 mmol/L 21.0-32.0 [facility] Chloride assayOrdered By: Susan Flores on 05-07-2025 Chloride [Moles/Vol] 108 mmol/L 98-108 [facility] Comprehensive Metabolic Prof ilon 05-07-2025 Albumin [Mass/Vol] 3.4 g/dL Low 3.5-5.0 [facility] Comment on above: Performed By: #### L 100.0100, L500.4050 ####[facility] [address] [place], [address] Albumin/Globulin [Mass ratio] 1.3 {ratio} Normal 0.9-2.4 [facility] Comment on above: Performed By: #### L 100.0100, L500.4050 ####[facility] [address] [place], [address] ALK PHOS 110 U/L Normal 40-129 [facility] Comment on above: Performed By: #### L 100.0100, L500.4050 ####[facility] [address] [place], [address] ALT [Catalytic activity/Vol] 279 U/L High <=46 [facility] Comment on above: Performed By: #### L 100.0100, L500.4050 ####[facility] [address] [place], [address] AST [Catalytic activity/Vol] 52 U/L High <=37 [facility] Comment on above: Performed By: #### L 100.0100, L500.4050 ####[facility] [address] [place], [address] Bilirubin [Mass/Vol] 1.13 mg/dL Normal 0.00-1.30 [facility] Comment on above: Performed By: #### L 100.0100, L500.4050 ####[facility] [address] [place], [address] BUN/CRE 10.4 RATIO Normal 10-20 [facility] Comment on above: Performed By: #### L 100.0100, L500.4050 ####[facility] [address] [place], [address] Calcium [Mass/Vol] 8.8 mg/dL Normal 7.6-11.0 [facility] Comment on above: Performed By: #### L 100.0100, L500.4050 ####[facility] [address] [place], [address] Chloride [Moles/Vol] 108 mmol/L Normal 98-108 [facility] Comment on above: Performed By: #### L 100.0100, L500.4050 ####[facility] [address] [place], [address] CO2 [Moles/Vol] 23.2 mmol/L Normal 21.0-32.0 [facility] Comment on above: Performed By: #### L 100.0100, L500.4050 ####[facility] [address] [place], [address] Creatinine [Mass/Vol] 0.93 mg/dL Normal 0.70-1.20 [facility] Comment on above: Performed By: #### L 100.0100, L500.4050 ####[facility] [address] [place], [address] ECRCL 121.71 ml/min Normal 50-250 [facility] Comment on above: Performed By: #### L 100.0100, L500.4050 ####[facility] [address] [place], [address] GAP 11 Normal 5-15 [facility] Comment on above: Performed By: #### L 100.0100, L500.4050 ####[facility] [address] [place], [address] GFR/1.73 sq M.predicted among non-blacks MDRD (S/P/Bld) [Vol rate/Area] 106 mL/min/{1.73_m2} Normal >60 [facility] Comment on above: Result Comment: mL/m in/1.73m2 CKD-EPI Creatinine Equation (2020) Performed By: #### L 100.0100, L500.4050 ####[facility] [address] [place], [address] Globulin (S) [Mass/Vol] 2.6 g/dL Normal 2.2-4.2 [facility] Comment on above: Performed By: #### L 100.0100, L500.4050 ####[facility] [address] [place], [address] Glucose [Mass/Vol] 93 mg/dL Normal 70-99 [facility] Comment on above: Performed By: #### L 100.0100, L500.4050 ####[facility] [address] [place], [address] Potassium [Moles/Vol] 4.0 mmol/L Normal 3.3-5.1 [facility] Comment on above: Performed By: #### L 100.0100, L500.4050 ####[facility] [address] [place], [address] Sodium [Moles/Vol] 142 mmol/L Normal 133-145 [facility] Comment on above: Performed By: #### L 100.0100, L500.4050 ####[facility] [address] [place], [address] T PROT 6.0 g/dL Normal 5.9-8.4 [facility] Comment on above: Performed By: #### L 100.0100, L500.4050 ####[facility] [address] [place], [address] Urea nitrogen [Mass/Vol] 10 mg/dL Normal 4-19 [facility] Comment on above: Performed By: #### L 100.0100, L500.4050 ####[facility] [address] [place], [address] Culture, Blood (WB)on 2024 CUB Normal [facility] Comment on above: Performed By: #### M 200.1000 ####[facility] [address] [place], [address] Discharge Instructionon 08-0 Discharge Instruction Normal [facility] Eosinophil percentageOrdered By: Veronica Flores on 05-07-2025 Eosinophils/100 WBC (Bld) 1.6 % 0-5 [facility] Erythrocyte distribution wid th ratioOrdered By: Veronica Flores on 05-07-2025 Erythrocyte distribution width (RBC) [Ratio] 13.2 % 11.6-14.6 [facility] Erythrocyte distribution wid th standard deviationOrdered By: Veronica Flores on 05-07-2025 Erythrocyte distribution width (RBC) [Ratio] 42.6 fl 35.1-43.9 [facility] Glomerular filtration rate ( GFR) estimation/1.73 sq m using serum, plasma, or whole bOrdered By: Veronica Flores on 05-07-2025 GFR/1.73 sq M.predicted among non-blacks MDRD (S/P/Bld) [Vol rate/Area] 106 mL/min/{1.73_m2} >60 [facility] Comment on above: mL/min/1.73m2 CKD-EP I Creatinine Equation (2020) Hematocrit Auto (Bld) [Volum e fraction]Ordered By: Veronica Flores on 05-07-2025 Hematocrit (Bld) [Volume fraction] 39.7 % Low 40-54 [facility] Hemoglobin measurementOrdere d By: Veronica Flores on 05-07-2025 Hemoglobin (Bld) [Mass/Vol] 13.4 g/dL 13.0-16.5 [facility] Immature granulocytes/100 WB C Auto (Bld)Ordered By: Veronica Flores on 05-07-2025 Immature granulocytes/100 WBC (Bld) 0.700 % 0.0-0.9 [facility] Comment on above: IG% - Immature Granu locytes (promyelocytes, myelocytes and metamyelocytes) > 1% indicates that a LEFT SHIFT is Present. Laboratory - Chemistry and C hemistry - challengeOrdered By: Veronica Flores on 05-07-2025 AST [Catalytic activity/Vol] 52 U/L High <38 [facility] MCV (mean corpuscular volume ) determinationOrdered By: Veronica Flores on 05-07-2025 MCV (RBC) [Entitic vol] 88.0 fL 80-94 [facility] Mean corpuscular hemoglobin (MCH) determinationOrdered By: Veronica Flores on 05-07-2025 MCH (RBC) [Entitic mass] 29.7 pg 27.0-32.0 [facility] Mean corpuscular hemoglobin concentration (MCHC) determinationOrdered By: Veronica Flores on 05-07-2025 MCHC (RBC) [Mass/Vol] 33.8 g/dL 32-36 [facility] Mean platelet volume determi nationOrdered By: Veronica Flores on 05-07-2025 Platelet mean volume (Bld) [Entitic vol] 9.3 fL 6.2-12.0 [facility] Monocyte percentageOrdered B y: Vernoica Flores on 05-07-2025 Monocytes/100 WBC (Bld) 9.0 % 0-10 [facility] Neutrophil percentageOrdered By: Veronica Flores on 05-07-2025 Neutrophils/100 WBC (Bld) 64.8 % 47-70 [facility] Nucleated red blood cell per centageOrdered By: Veronica Flores 05-07-2025 Nucleated RBC/100 WBC (Bld) [Ratio] 0 % 0-5 [facility] Platelet countOrdered By: Susan Flores on 05-07-2025 Platelets (Bld) [#/Vol] 186 10*3/uL 150-450 [facility] Potassium measurement (mass/ volume)Ordered By: Veronica Flores on 05-07-2025 Potassium (Unsp spec) [Mass/Vol] 4.0 mmol/L 3.3-5.1 [facility] RBC Auto (Bld) [#/Vol]Ordere d By: Veronica Flores on 05-07-2025 RBC (Bld) [#/Vol] 4.51 10*6/uL Low 4.6-6.2 [facility] Serum creatinine measurement (mass/volume)Ordered By: Veronica Flores on 05-07-2025 Creatinine [Mass/Vol] 0.93 mg/dL 0.70-1.20 [facility] Serum globulin measurementOr dered By: Veronica Flores on 05-07-2025 Globulin (S) [Mass/Vol] 2.6 g/dL 2.2-4.2 [facility] Serum glucose measurement (m ass/volume)Ordered By: Veronica Flores on 05-07-2025 Glucose [Mass/Vol] 93 mg/dL 70-99 [facility] Serum or plasma alanine mays otransferase (ALT) measurementOrdered By: Veronica Flores on 05-07-2025 ALT [Catalytic activity/Vol] 279 U/L High <47 [facility] Serum or plasma albumin marquise urement (mass/volume)Ordered By: Veronica Flores on 05-07-2025 Albumin [Mass/Vol] 3.4 g/dL Low 3.5-5.0 [facility] Serum or plasma albumin/glob ulin mass ratioOrdered By: Veronica Flores on 05-07-2025 Albumin/Globulin [Mass ratio] 1.3 {ratio} 0.9-2.4 [facility] Serum or plasma alkaline daniel sphatase measurementOrdered By: Veronica Flores on 05-07-2025 ALP [Catalytic activity/Vol] 110 U/L 40-129 [facility] Serum or plasma calcium marquise urement (mass/volume)Ordered By: Veronica Flores on 05-07-2025 Calcium [Mass/Vol] 8.8 mg/dL 7.6-11.0 [facility] Serum or plasma urea nitroge n measurement (mass/volume)Ordered By: Veronica Flores on 05-07-2025 Urea nitrogen [Mass/Vol] 10 mg/dL 4-19 [facility] Sodium levelOrdered By: Veronica Flores on 05-07-2025 Sodium [Moles/Vol] 142 mmol/L 133-145 [facility] Total proteinOrdered By: Mica Flores on 05-07-2025 Protein [Mass/Vol] 6.0 g/dL 5.9-8.4 [facility] White blood cell (WBC) count Ordered By: Veronica Flores on 05-07-2025 WBC (Bld) [#/Vol] 5.8 10*3/uL 4.4-11.0 [facility] CBC W/Diff, Automatedon Absolute Lymph 0.66 X10 3/uL Low 0.83-4.51 [facility] Comment on above: Performed By: #### L 500.4050, L100.0100 ####[facility] [address] [place], [address] Absolute Neut 6.1 X10 3/uL Normal 2.0-7.7 [facility] Comment on above: Performed By: #### L 500.4050, L100.0100 ####[facility] [address] [place], [address] Basophils/100 WBC (Bld) 0.1 % Normal 0-1 [facility] Comment on above: Performed By: #### L 500.4050, L100.0100 ####[facility] [address] [place], [address] Eosinophils/100 WBC (Bld) 0.0 % Normal 0-5 [facility] Comment on above: Performed By: #### L 500.4050, L100.0100 ####[facility] [address] [place], [address] Erythrocyte distribution width (RBC) [Ratio] 13.0 % Normal 11.6-14.6 [facility] Comment on above: Performed By: #### L 500.4050, L100.0100 ####[facility] [address] [place], [address] Hematocrit (Bld) [Volume fraction] 38.2 % Low 40-54 [facility] Comment on above: Performed By: #### L 500.4050, L100.0100 ####[facility] [address] [place], [address] Hemoglobin (Bld) [Mass/Vol] 13.0 g/dL Normal 13.0-16.5 [facility] Comment on above: Performed By: #### L 500.4050, L100.0100 ####[facility] [address] [place], [address] IG% 0.700 Normal 0.0-0.9 [facility] Comment on above: Result Comment: IG% - Immature Granulocytes (promyelocytes, myelocytes andmetamyelocytes) > 1% indicates that a LEFT SHIFT is Present. Performed By: #### L 500.4050, L100.0100 ####[facility] [address] [place], [address] Lymphocytes/100 WBC (Bld) 8.9 % Low 19-41 [facility] Comment on above: Performed By: #### L 500.4050, L100.0100 ####[facility] [address] [place], [address] MCH (RBC) [Entitic mass] 29.7 pg Normal 27.0-32.0 [facility] Comment on above: Performed By: #### L 500.4050, L100.0100 ####[facility] [address] [place], [address] MCHC (RBC) [Mass/Vol] 34.0 g/dL Normal 32-36 [facility] Comment on above: Performed By: #### L 500.4050, L100.0100 ####[facility] [address] [place], [address] MCV (RBC) [Entitic vol] 87.4 fL Normal 80-94 [facility] Comment on above: Performed By: #### L 500.4050, L100.0100 ####[facility] [address] [place], [address] Monocytes/100 WBC (Bld) 7.8 % Normal 0-10 [facility] Comment on above: Performed By: #### L 500.4050, L100.0100 ####[facility] [address] [place], [address] Neutrophils/100 WBC (Bld) 82.5 % High 47-70 [facility] Comment on above: Performed By: #### L 500.4050, L100.0100 ####[facility] [address] [place], [address] Nucleated RBC (Bld) [#/Vol] 0 10*3/uL Normal 0-5 [facility] Comment on above: Performed By: #### L 500.4050, L100.0100 ####[facility] [address] [place], [address] Platelet mean volume (Bld) [Entitic vol] 9.3 fL Normal 6.2-12.0 [facility] Comment on above: Performed By: #### L 500.4050, L100.0100 ####[facility] [address] [place], [address] Platelets (Bld) [#/Vol] 150 10*3/uL Normal 150-450 [facility] Comment on above: Performed By: #### L 500.4050, L100.0100 ####[facility] [address] [place], [address] RBC (Bld) [#/Vol] 4.37 10*6/uL Low 4.6-6.2 [facility] Comment on above: Performed By: #### L 500.4050, L100.0100 ####[facility] [address] [place], [address] RDW SD 41.6 fl Normal 35.1-43.9 [facility] Comment on above: Performed By: #### L 500.4050, L100.0100 ####[facility] [address] [place], [address] WBC (Bld) [#/Vol] 7.4 10*3/uL Normal 4.4-11.0 [facility] Comment on above: Performed By: #### L 500.4050, L100.0100 ####[facility] [address] [place], [address] Comprehensive Metabolic Prof sdon 05-06-2025 Albumin [Mass/Vol] 3.3 g/dL Low 3.5-5.0 [facility] Comment on above: Performed By: #### L 500.4050, L100.0100 ####[facility] [address] [place], [address] Albumin/Globulin [Mass ratio] 1.4 {ratio} Normal 0.9-2.4 [facility] Comment on above: Performed By: #### L 500.4050, L100.0100 ####[facility] [address] [place], [address] ALK PHOS 109 U/L Normal 40-129 [facility] Comment on above: Performed By: #### L 500.4050, L100.0100 ####[facility] [address] [place], [address] ALT [Catalytic activity/Vol] 374 U/L High <=46 [facility] Comment on above: Performed By: #### L 500.4050, L100.0100 ####[facility] [address] [place], [address] AST [Catalytic activity/Vol] 112 U/L High <=37 [facility] Comment on above: Performed By: #### L 500.4050, L100.0100 ####[facility] [address] [place], [address] Bilirubin [Mass/Vol] 2.82 mg/dL High 0.00-1.30 [facility] Comment on above: Performed By: #### L 500.4050, L100.0100 ####[facility] [address] [place], [address] BUN/CRE 10.6 RATIO Normal 10-20 [facility] Comment on above: Performed By: #### L 500.4050, L100.0100 ####[facility] [address] [place], [address] Calcium [Mass/Vol] 8.4 mg/dL Normal 7.6-11.0 [facility] Comment on above: Performed By: #### L 500.4050, L100.0100 ####[facility] [address] [place], [address] Chloride [Moles/Vol] 108 mmol/L Normal 98-108 [facility] Comment on above: Performed By: #### L 500.4050, L100.0100 ####[facility] [address] [place], [address] CO2 [Moles/Vol] 22.0 mmol/L Normal 21.0-32.0 [facility] Comment on above: Performed By: #### L 500.4050, L100.0100 ####[facility] [address] [place], [address] Creatinine [Mass/Vol] 0.84 mg/dL Normal 0.70-1.20 [facility] Comment on above: Performed By: #### L 500.4050, L100.0100 ####[facility] [address] [place], [address] ECRCL 136.58 ml/min Normal 50-250 [facility] Comment on above: Performed By: #### L 500.4050, L100.0100 ####[facility] [address] [place], [address] GAP 10 Normal 5-15 [facility] Comment on above: Performed By: #### L 500.4050, L100.0100 ####[facility] [address] [place], [address] GFR/1.73 sq M.predicted among non-blacks MDRD (S/P/Bld) [Vol rate/Area] 112 mL/min/{1.73_m2} Normal >60 [facility] Comment on above: Result Comment: mL/m in/1.73m2 CKD-EPI Creatinine Equation (2020) Performed By: #### L 500.4050, L100.0100 ####[facility] [address] [place], [address] Globulin (S) [Mass/Vol] 2.3 g/dL Normal 2.2-4.2 [facility] Comment on above: Performed By: #### L 500.4050, L100.0100 ####[facility] [address] [place], [address] Glucose [Mass/Vol] 117 mg/dL High 70-99 [facility] Comment on above: Performed By: #### L 500.4050, L100.0100 ####[facility] [address] [place], [address] Potassium [Moles/Vol] 4.1 mmol/L Normal 3.3-5.1 [facility] Comment on above: Performed By: #### L 500.4050, L100.0100 ####[facility] [address] [place], [address] Sodium [Moles/Vol] 139 mmol/L Normal 133-145 [facility] Comment on above: Performed By: #### L 500.4050, L100.0100 ####[facility] [address] [place], [address] T PROT 5.7 g/dL Low 5.9-8.4 [facility] Comment on above: Performed By: #### L 500.4050, L100.0100 ####[facility] [address] [place], [address] Urea nitrogen [Mass/Vol] 9 mg/dL Normal 4-19 [facility] Comment on above: Performed By: #### L 500.4050, L100.0100 ####[facility] [address] [place], [address] Consultation - Infectious Dx on 05-06-2025 Consultation - Infectious Dx Normal [facility] Basic Metabolic Profile (BMP )on 05-05-2025 BUN/CRE 10.8 RATIO Normal 10-20 [facility] Comment on above: Performed By: #### L 100.0100, L501.2450, L509.7001, L500.3400, L503.6005, L500.2500 ####[facility] [address] [place], [address] Calcium [Mass/Vol] 9.1 mg/dL Normal 7.6-11.0 [facility] Comment on above: Performed By: #### L 100.0100, L501.2450, L509.7001, L500.3400, L503.6005, L500.2500 ####[facility] [address] [place], [address] Chloride [Moles/Vol] 103 mmol/L Normal 98-108 [facility] Comment on above: Performed By: #### L 100.0100, L501.2450, L509.7001, L500.3400, L503.6005, L500.2500 ####[facility] [address] [place], [address] CO2 [Moles/Vol] 20.9 mmol/L Low 21.0-32.0 [facility] Comment on above: Performed By: #### L 100.0100, L501.2450, L509.7001, L500.3400, L503.6005, L500.2500 ####[facility] [address] [place], [address] Creatinine [Mass/Vol] 1.07 mg/dL Normal 0.70-1.20 [facility] Comment on above: Performed By: #### L 100.0100, L501.2450, L509.7001, L500.3400, L503.6005, L500.2500 ####[facility] [address] [place], [address] ECRCL 104.76 ml/min Normal 50-250 [facility] Comment on above: Performed By: #### L 100.0100, L501.2450, L509.7001, L500.3400, L503.6005, L500.2500 ####[facility] [address] [place], [address] GAP 14 Normal 5-15 [facility] Comment on above: Performed By: #### L 100.0100, L501.2450, L509.7001, L500.3400, L503.6005, L500.2500 ####[facility] [address] [place], [address] GFR/1.73 sq M.predicted among non-blacks MDRD (S/P/Bld) [Vol rate/Area] 89 mL/min/{1.73_m2} Normal >60 [facility] Comment on above: Result Comment: mL/m in/1.73m2 CKD-EPI Creatinine Equation (2020) Performed By: #### L 100.0100, L501.2450, L509.7001, L500.3400, L503.6005, L500.2500 ####[facility] [address] [place], [address] Glucose [Mass/Vol] 134 mg/dL High 70-99 [facility] Comment on above: Performed By: #### L 100.0100, L501.2450, L509.7001, L500.3400, L503.6005, L500.2500 ####[facility] [address] [place], [address] Potassium [Moles/Vol] 3.4 mmol/L Normal 3.3-5.1 [facility] Comment on above: Performed By: #### L 100.0100, L501.2450, L509.7001, L500.3400, L503.6005, L500.2500 ####[facility] [address] [place], [address] Sodium [Moles/Vol] 138 mmol/L Normal 133-145 [facility] Comment on above: Performed By: #### L 100.0100, L501.2450, L509.7001, L500.3400, L503.6005, L500.2500 ####[facility] [address] [place], [address] Urea nitrogen [Mass/Vol] 12 mg/dL Normal 4-19 [facility] Comment on above: Performed By: #### L 100.0100, L501.2450, L509.7001, L500.3400, L503.6005, L500.2500 ####[facility] [address] [place], [address] Blood cultureOrdered By: Basil Phillip on 05-05-2025 Bacteria identified Cx Nom (Bld) Negative Abnormal [facility] CBC W/Diff, Automatedon 08-0 Absolute Lymph 0.47 X10 3/uL Low 0.83-4.51 [facility] Comment on above: Performed By: #### L 500.4050, L100.0100 ####[facility] [address] [place], [address] Absolute Neut 9.6 X10 3/uL High 2.0-7.7 [facility] Comment on above: Performed By: #### L 500.4050, L100.0100 ####[facility] [address] [place], [address] Basophils/100 WBC (Bld) 0.2 % Normal 0-1 [facility] Comment on above: Performed By: #### L 500.4050, L100.0100 ####[facility] [address] [place], [address] Eosinophils/100 WBC (Bld) 0.0 % Normal 0-5 [facility] Comment on above: Performed By: #### L 500.4050, L100.0100 ####[facility] [address] [place], [address] Erythrocyte distribution width (RBC) [Ratio] 12.7 % Normal 11.6-14.6 [facility] Comment on above: Performed By: #### L 500.4050, L100.0100 ####[facility] [address] [place], [address] Hematocrit (Bld) [Volume fraction] 40.1 % Normal 40-54 [facility] Comment on above: Performed By: #### L 500.4050, L100.0100 ####[facility] [address] [place], [address] Hemoglobin (Bld) [Mass/Vol] 13.7 g/dL Normal 13.0-16.5 [facility] Comment on above: Performed By: #### L 500.4050, L100.0100 ####[facility] [address] [place], [address] IG% 0.600 Normal 0.0-0.9 [facility] Comment on above: Result Comment: IG% - Immature Granulocytes (promyelocytes, myelocytes andmetamyelocytes) > 1% indicates that a LEFT SHIFT is Present. Performed By: #### L 500.4050, L100.0100 ####[facility] [address] [place], [address] Lymphocytes/100 WBC (Bld) 4.3 % Low 19-41 [facility] Comment on above: Performed By: #### L 500.4050, L100.0100 ####[facility] [address] [place], [address] MCH (RBC) [Entitic mass] 29.9 pg Normal 27.0-32.0 [facility] Comment on above: Performed By: #### L 500.4050, L100.0100 ####[facility] [address] [place], [address] MCHC (RBC) [Mass/Vol] 34.2 g/dL Normal 32-36 [facility] Comment on above: Performed By: #### L 500.4050, L100.0100 ####[facility] [address] [place], [address] MCV (RBC) [Entitic vol] 87.6 fL Normal 80-94 [facility] Comment on above: Performed By: #### L 500.4050, L100.0100 ####[facility] [address] [place], [address] Monocytes/100 WBC (Bld) 7.2 % Normal 0-10 [facility] Comment on above: Performed By: #### L 500.4050, L100.0100 ####[facility] [address] [place], [address] Neutrophils/100 WBC (Bld) 87.7 % High 47-70 [facility] Comment on above: Performed By: #### L 500.4050, L100.0100 ####[facility] [address] [place], [address] Nucleated RBC (Bld) [#/Vol] 0 10*3/uL Normal 0-5 [facility] Comment on above: Performed By: #### L 500.4050, L100.0100 ####[facility] [address] [place], [address] Platelet mean volume (Bld) [Entitic vol] 9.1 fL Normal 6.2-12.0 [facility] Comment on above: Performed By: #### L 500.4050, L100.0100 ####[facility] [address] [place], [address] Platelets (Bld) [#/Vol] 162 10*3/uL Normal 150-450 [facility] Comment on above: Performed By: #### L 500.4050, L100.0100 ####[facility] [address] [place], [address] RBC (Bld) [#/Vol] 4.58 10*6/uL Low 4.6-6.2 [facility] Comment on above: Performed By: #### L 500.4050, L100.0100 ####[facility] [address] [place], [address] RDW SD 40.6 fl Normal 35.1-43.9 [facility] Comment on above: Performed By: #### L 500.4050, L100.0100 ####[facility] [address] [place], [address] WBC (Bld) [#/Vol] 10.9 10*3/uL Normal 4.4-11.0 [facility] Comment on above: Performed By: #### L 500.4050, L100.0100 ####[facility] [address] [place], [address] Absolute Lymph 0.33 X10 3/uL Low 0.83-4.51 [facility] Comment on above: Performed By: #### L 100.0100, L501.2450, L509.7001, L500.3400, L503.6005, L500.2500 ####[facility] [address] [place], [address] Absolute Neut 8.8 X10 3/uL High 2.0-7.7 [facility] Comment on above: Performed By: #### L 100.0100, L501.2450, L509.7001, L500.3400, L503.6005, L500.2500 ####[facility] [address] [place], [address] Basophils/100 WBC (Bld) 0.1 % Normal 0-1 [facility] Comment on above: Performed By: #### L 100.0100, L501.2450, L509.7001, L500.3400, L503.6005, L500.2500 ####[facility] [address] [place], [address] Eosinophils/100 WBC (Bld) 0.0 % Normal 0-5 [facility] Comment on above: Performed By: #### L 100.0100, L501.2450, L509.7001, L500.3400, L503.6005, L500.2500 ####[facility] [address] [place], [address] Erythrocyte distribution width (RBC) [Ratio] 12.6 % Normal 11.6-14.6 [facility] Comment on above: Performed By: #### L 100.0100, L501.2450, L509.7001, L500.3400, L503.6005, L500.2500 ####[facility] [address] [place], [address] Hematocrit (Bld) [Volume fraction] 44.6 % Normal 40-54 [facility] Comment on above: Performed By: #### L 100.0100, L501.2450, L509.7001, L500.3400, L503.6005, L500.2500 ####[facility] [address] [place], [address] Hemoglobin (Bld) [Mass/Vol] 15.5 g/dL Normal 13.0-16.5 [facility] Comment on above: Performed By: #### L 100.0100, L501.2450, L509.7001, L500.3400, L503.6005, L500.2500 ####[facility] [address] [place], [address] IG% 0.900 Normal 0.0-0.9 [facility] Comment on above: Result Comment: IG% - Immature Granulocytes (promyelocytes, myelocytes andmetamyelocytes) > 1% indicates that a LEFT SHIFT is Present. Performed By: #### L 100.0100, L501.2450, L509.7001, L500.3400, L503.6005, L500.2500 ####[facility] [address] [place], [address] Lymphocytes/100 WBC (Bld) 3.4 % Low 19-41 [facility] Comment on above: Performed By: #### L 100.0100, L501.2450, L509.7001, L500.3400, L503.6005, L500.2500 ####[facility] [address] [place], [address] MCH (RBC) [Entitic mass] 30.0 pg Normal 27.0-32.0 [facility] Comment on above: Performed By: #### L 100.0100, L501.2450, L509.7001, L500.3400, L503.6005, L500.2500 ####[facility] [address] [place], [address] MCHC (RBC) [Mass/Vol] 34.8 g/dL Normal 32-36 [facility] Comment on above: Performed By: #### L 100.0100, L501.2450, L509.7001, L500.3400, L503.6005, L500.2500 ####[facility] [address] [place], [address] MCV (RBC) [Entitic vol] 86.3 fL Normal 80-94 [facility] Comment on above: Performed By: #### L 100.0100, L501.2450, L509.7001, L500.3400, L503.6005, L500.2500 ####[facility] [address] [place], [address] Monocytes/100 WBC (Bld) 4.1 % Normal 0-10 [facility] Comment on above: Performed By: #### L 100.0100, L501.2450, L509.7001, L500.3400, L503.6005, L500.2500 ####[facility] [address] [place], [address] Neutrophils/100 WBC (Bld) 91.5 % High 47-70 [facility] Comment on above: Performed By: #### L 100.0100, L501.2450, L509.7001, L500.3400, L503.6005, L500.2500 ####[facility] [address] [place], [address] Nucleated RBC (Bld) [#/Vol] 0 10*3/uL Normal 0-5 [facility] Comment on above: Performed By: #### L 100.0100, L501.2450, L509.7001, L500.3400, L503.6005, L500.2500 ####[facility] [address] [place], [address] Platelet mean volume (Bld) [Entitic vol] 9.1 fL Normal 6.2-12.0 [facility] Comment on above: Performed By: #### L 100.0100, L501.2450, L509.7001, L500.3400, L503.6005, L500.2500 ####[facility] [address] [place], [address] Platelets (Bld) [#/Vol] 182 10*3/uL Normal 150-450 [facility] Comment on above: Performed By: #### L 100.0100, L501.2450, L509.7001, L500.3400, L503.6005, L500.2500 ####[facility] [address] [place], [address] RBC (Bld) [#/Vol] 5.17 10*6/uL Normal 4.6-6.2 [facility] Comment on above: Performed By: #### L 100.0100, L501.2450, L509.7001, L500.3400, L503.6005, L500.2500 ####[facility] [address] [place], [address] RDW SD 39.7 fl Normal 35.1-43.9 [facility] Comment on above: Performed By: #### L 100.0100, L501.2450, L509.7001, L500.3400, L503.6005, L500.2500 ####[facility] [address] [place], [address] WBC (Bld) [#/Vol] 9.6 10*3/uL Normal 4.4-11.0 [facility] Comment on above: Performed By: #### L 100.0100, L501.2450, L509.7001, L500.3400, L503.6005, L500.2500 ####[facility] [address] [place], [address] Comprehensive Metabolic Prof sdon 05-05-2025 Albumin [Mass/Vol] 3.6 g/dL Normal 3.5-5.0 [facility] Comment on above: Performed By: #### L 500.4050, L100.0100 ####[facility] [address] [place], [address] Albumin/Globulin [Mass ratio] 1.8 {ratio} Normal 0.9-2.4 [facility] Comment on above: Performed By: #### L 500.4050, L100.0100 ####[facility] [address] [place], [address] ALK PHOS 131 U/L High 40-129 [facility] Comment on above: Performed By: #### L 500.4050, L100.0100 ####[facility] [address] [place], [address] ALT [Catalytic activity/Vol] 620 U/L High <=46 [facility] Comment on above: Performed By: #### L 500.4050, L100.0100 ####[facility] [address] [place], [address] AST [Catalytic activity/Vol] 319 U/L High <=37 [facility] Comment on above: Performed By: #### L 500.4050, L100.0100 ####[facility] [address] [place], [address] Bilirubin [Mass/Vol] 4.53 mg/dL High 0.00-1.30 [facility] Comment on above: Performed By: #### L 500.4050, L100.0100 ####[facility] [address] [place], [address] BUN/CRE 9.7 RATIO Low 10-20 [facility] Comment on above: Performed By: #### L 500.4050, L100.0100 ####[facility] [address] [place], [address] Calcium [Mass/Vol] 8.1 mg/dL Normal 7.6-11.0 [facility] Comment on above: Performed By: #### L 500.4050, L100.0100 ####[facility] [address] [place], [address] Chloride [Moles/Vol] 107 mmol/L Normal 98-108 [facility] Comment on above: Performed By: #### L 500.4050, L100.0100 ####[facility] [address] [place], [address] CO2 [Moles/Vol] 22.3 mmol/L Normal 21.0-32.0 [facility] Comment on above: Performed By: #### L 500.4050, L100.0100 ####[facility] [address] [place], [address] Creatinine [Mass/Vol] 1.16 mg/dL Normal 0.70-1.20 [facility] Comment on above: Performed By: #### L 500.4050, L100.0100 ####[facility] [address] [place], [address] ECRCL 96.91 ml/min Normal 50-250 [facility] Comment on above: Performed By: #### L 500.4050, L100.0100 ####[facility] [address] [place], [address] GAP 11 Normal 5-15 [facility] Comment on above: Performed By: #### L 500.4050, L100.0100 ####[facility] [address] [place], [address] GFR/1.73 sq M.predicted among non-blacks MDRD (S/P/Bld) [Vol rate/Area] 81 mL/min/{1.73_m2} Normal >60 [facility] Comment on above: Result Comment: mL/m in/1.73m2 CKD-EPI Creatinine Equation (2020) Performed By: #### L 500.4050, L100.0100 ####[facility] [address] [place], [address] Globulin (S) [Mass/Vol] 2.0 g/dL Low 2.2-4.2 [facility] Comment on above: Performed By: #### L 500.4050, L100.0100 ####[facility] [address] [place], [address] Glucose [Mass/Vol] 111 mg/dL High 70-99 [facility] Comment on above: Performed By: #### L 500.4050, L100.0100 ####[facility] [address] [place], [address] Potassium [Moles/Vol] 3.7 mmol/L Normal 3.3-5.1 [facility] Comment on above: Performed By: #### L 500.4050, L100.0100 ####[facility] [address] [place], [address] Sodium [Moles/Vol] 140 mmol/L Normal 133-145 [facility] Comment on above: Performed By: #### L 500.4050, L100.0100 ####[facility] [address] [place], [address] T PROT 5.7 g/dL Low 5.9-8.4 [facility] Comment on above: Performed By: #### L 500.4050, L100.0100 ####[facility] [address] [place], [address] Urea nitrogen [Mass/Vol] 11 mg/dL Normal 4-19 [facility] Comment on above: Performed By: #### L 500.4050, L100.0100 ####[facility] [address] [place], [address] Consultation - Surgicalon Consultation - Surgical Normal [facility] ERCP Biliary/Pancreason 08-0 ERCP Biliary/Pancreas Normal [facility] ERCP Reporton 05-05-2025 ERCP Report Normal [facility] Emergency Department Summary on 05-05-2025 Emergency Department Summary Normal [facility] H AND P Exam - Hospitaliston 05-05-2025 H&P Exam - Hospitalist Normal [facility] L509.7001on 05-05-2025 Procalcitonin 0.75 ng/mL High <=0.10 [facility] Comment on above: Result Comment: Inte rpretation:<0.10-0.25 ng/mL: Antibiotic therapy discouraged. Bacterialinfection unlikely.0.25-0.50 ng/mL: Antibiotic therapy encouraged. Bacterialinfection possible.>0.50 ng/mL: Antibiotic therapy strongly encouraged.Suggestive of presence of bacterial infection.PCT should always be interpreted in the clinical context ofthe patient. Therefore, clinicians should use the PCTresults in conjunction with other laboratory findings andclinical signs of the patient. Performed By: #### L 100.0100, L501.2450, L509.7001, L500.3400, L503.6005, L500.2500 ####[facility] [address] [place], [place], [id number] Lactic Acidon 05-05-2025 Lactate [Moles/Vol] 1.1 mmol/L Normal 0.0-2.0 [facility] Comment on above: Order Comment: Y Performed By: #### L 100.0100, L501.2450, L509.7001, L500.3400, L503.6005, L500.2500 ####[facility] [address] [place], [address] Lipaseon 05-05-2025 Lipase [Catalytic activity/Vol] 55 U/L Normal 13-75 [facility] Comment on above: Result Comment: Sully dealney note:LIPASE revised reference range effective 23.New Lipase methodology. Expected to produce lower valuesthan the previous assay method.NEW Reference Range: 13 - 75 U/L Performed By: #### L 100.0100, L501.2450, L509.7001, L500.3400, L503.6005, L500.2500 ####[facility] [address] [place], [address] Liver Profileon 05-05-2025 Albumin [Mass/Vol] 4.2 g/dL Normal 3.5-5.0 [facility] Comment on above: Performed By: #### L 100.0100, L501.2450, L509.7001, L500.3400, L503.6005, L500.2500 ####[facility] [address] [place], [address] ALK PHOS 158 U/L High 40-129 [facility] Comment on above: Performed By: #### L 100.0100, L501.2450, L509.7001, L500.3400, L503.6005, L500.2500 ####[facility] [address] [place], [address] ALT [Catalytic activity/Vol] 883 U/L High <=46 [facility] Comment on above: Performed By: #### L 100.0100, L501.2450, L509.7001, L500.3400, L503.6005, L500.2500 ####[facility] [address] [place], [address] AST [Catalytic activity/Vol] 493 U/L High <=37 [facility] Comment on above: Performed By: #### L 100.0100, L501.2450, L509.7001, L500.3400, L503.6005, L500.2500 ####[facility] [address] [place], [address] Bilirubin [Mass/Vol] 4.25 mg/dL High 0.00-1.30 [facility] Comment on above: Performed By: #### L 100.0100, L501.2450, L509.7001, L500.3400, L503.6005, L500.2500 ####[facility] [id number] [place], [address] Bilirubin.direct [Mass/Vol] 3.03 mg/dL High 0.00-0.30 [facility] Comment on above: Performed By: #### L 100.0100, L501.2450, L509.7001, L500.3400, L503.6005, L500.2500 ####[facility] [id number] [place], [address] Globulin (S) [Mass/Vol] 2.6 g/dL Normal 2.2-4.2 [facility] Comment on above: Performed By: #### L 100.0100, L501.2450, L509.7001, L500.3400, L503.6005, L500.2500 ####[facility] [id number] [place], [address] T PROT 6.8 g/dL Normal 5.9-8.4 [facility] Comment on above: Performed By: #### L 100.0100, L501.2450, L509.7001, L500.3400, L503.6005, L500.2500 ####[facility] [address] [place], [address] MR/CON.PCM.GIon 05-05-2025 MR/CON.PCM.GI Normal [facility] MR/OP.PROVATon 05-05-2025 MR/OP.PROVAT Normal [facility] MR/POSTOP.ANEon 05-05-2025 MR/POSTOP.ANE Normal [facility] MR/GCXUATAP7tw 05-05-2025 MR/POSTOPAN2 Normal [facility] Abdomen/Pelvis W IV Cont ONL Yon 05-04-2025 Abdomen/Pelvis W IV Cont ONLY Normal [facility] Absolute lymphocyte countOrd ered By: Benedict Phillip on 05-04-2025 Lymphocytes Auto (Unsp spec) [#/Vol] 0.33 10*3/uL Low 0.83-4.51 [facility] Absolute neutrophil countOrd ered By: Benedict Phillip on 05-04-2025 Neutrophils (Bld) [#/Vol] 8.8 10*3/uL High 2.0-7.7 [facility] Anion gap in Serum or Plasma Ordered By: Benedict Phillip on 05-04-2025 Anion gap [Moles/Vol] 14 mmol/L 5-15 [facility] Automated lymphocyte count a s percentage of total leukocytesOrdered By: Benedict Phillip on 05-04-2025 Lymphocytes/100 WBC Auto (Unsp spec) 3.4 % Low 19-41 [facility] BUN/creatinine ratioOrdered By: Benedict Phillip on 05-04-2025 Urea nitrogen/Creatinine [Mass ratio] 10.8 mg/mg 10-20 [facility] Basophil percentageOrdered B y: Benedict Phillip on 05-04-2025 Basophils/100 WBC (Bld) 0.1 % 0-1 [facility] Bilirubin directOrdered By: Benedict Phillip on 05-04-2025 Bilirubin.direct [Mass/Vol] 3.03 mg/dL High 0.00-0.30 [facility] Bilirubin, totalOrdered By: Benedict Phillip on 05-04-2025 Bilirubin [Mass/Vol] 4.25 mg/dL High 0.00-1.30 [facility] Blood cultureOrdered By: Basil Phillip on 05-04-2025 Bacteria identified Cx Nom (Bld) Escherichia coli Abnormal [facility] Carbon dioxide, total [Moles /volume] in Central venous bloodOrdered By: Benedict Phillip on 05-04-2025 CO2 [Moles/Vol] 20.9 mmol/L Low 21.0-32.0 [facility] Chloride assayOrdered By: Arabella Phillip on 05-04-2025 Chloride [Moles/Vol] 103 mmol/L 98-108 [facility] Eosinophil percentageOrdered By: Benedict Phillip on 05-04-2025 Eosinophils/100 WBC (Bld) 0.0 % 0-5 [facility] Erythrocyte distribution wid th ratioOrdered By: Benedict Phillip on 05-04-2025 Erythrocyte distribution width (RBC) [Ratio] 12.6 % 11.6-14.6 [facility] Erythrocyte distribution wid th standard deviationOrdered By: Benedict Phillip on 05-04-2025 Erythrocyte distribution width (RBC) [Ratio] 39.7 fl 35.1-43.9 [facility] Glomerular filtration rate ( GFR) estimation/1.73 sq m using serum, plasma, or whole bOrdered By: Benedict Phillip on 05-04-2025 GFR/1.73 sq M.predicted among non-blacks MDRD (S/P/Bld) [Vol rate/Area] 89 mL/min/{1.73_m2} >60 [facility] Comment on above: mL/min/1.73m2 CKD-EP I Creatinine Equation (2020) Hematocrit Auto (Bld) [Volum e fraction]Ordered By: Benedict Phillip on 05-04-2025 Hematocrit (Bld) [Volume fraction] 44.6 % 40-54 [facility] Hemoglobin measurementOrdere d By: Benedict Phillip on 05-04-2025 Hemoglobin (Bld) [Mass/Vol] 15.5 g/dL 13.0-16.5 [facility] Immature granulocytes/100 WB C Auto (Bld)Ordered By: Benedict Phillip on 05-04-2025 Immature granulocytes/100 WBC (Bld) 0.900 % 0.0-0.9 [facility] Comment on above: IG% - Immature Granu locytes (promyelocytes, myelocytes and metamyelocytes) > 1% indicates that a LEFT SHIFT is Present. Laboratory - Chemistry and C hemistry - challengeOrdered By: Benedict Phillip on 05-04-2025 AST [Catalytic activity/Vol] 493 U/L High <38 [facility] Lactic acid measurementOrder ed By: Benedict Phillip on 05-04-2025 Lactate [Moles/Vol] 1.1 mmol/L 0.0-2.0 [facility] Lipase measurementOrdered By : Benedict Phillip on 05-04-2025 Lipase [Catalytic activity/Vol] 55 U/L 13-75 [facility] Comment on above: Please note:LIPASE r evised reference range effective 23. New Lipase methodology. Expected to produce lower values than the previous assay method. NEW Reference Range: 13 - 75 U/L MCV (mean corpuscular volume ) determinationOrdered By: Benedict Phillip on 05-04-2025 MCV (RBC) [Entitic vol] 86.3 fL 80-94 [facility] Mean corpuscular hemoglobin (MCH) determinationOrdered By: Benedict Phillip on 05-04-2025 MCH (RBC) [Entitic mass] 30.0 pg 27.0-32.0 [facility] Mean corpuscular hemoglobin concentration (MCHC) determinationOrdered By: Benedict Phillip on 05-04-2025 MCHC (RBC) [Mass/Vol] 34.8 g/dL 32-36 [facility] Mean platelet volume determi nationOrdered By: Benedict Phillip on 05-04-2025 Platelet mean volume (Bld) [Entitic vol] 9.1 fL 6.2-12.0 [facility] Monocyte percentageOrdered B y: Benedict Phillip on 05-04-2025 Monocytes/100 WBC (Bld) 4.1 % 0-10 [facility] Neutrophil percentageOrdered By: Benedict Phillip on 05-04-2025 Neutrophils/100 WBC (Bld) 91.5 % High 47-70 [facility] Nucleated red blood cell per centageOrdered By: Benedict Phillip on 05-04-2025 Nucleated RBC/100 WBC (Bld) [Ratio] 0 % 0-5 [facility] Platelet countOrdered By: Arabella Phillip on 05-04-2025 Platelets (Bld) [#/Vol] 182 10*3/uL 150-450 [facility] Potassium measurement (mass/ volume)Ordered By: Benedict Phillip on 05-04-2025 Potassium (Unsp spec) [Mass/Vol] 3.4 mmol/L 3.3-5.1 [facility] Procalcitonin [Mass/volume] in Serum or Plasma by ImmunoassayOrdered By: Benedict Phillip on 05-04-2025 Procalcitonin IA [Mass/Vol] 0.75 ng/mL High <0.11 [facility] Comment on above: Interpretation:<0.10 -0.25 ng/mL: Antibiotic [...] 05-04-2025 RBC (Bld) [#/Vol] 5.17 10*6/uL 4.6-6.2 [facility] Serum creatinine measurement (mass/volume)Ordered By: Benedict Phillip on 05-04-2025 Creatinine [Mass/Vol] 1.07 mg/dL 0.70-1.20 [facility] Serum globulin measurementOr dered By: Benedict Phillip on 05-04-2025 Globulin (S) [Mass/Vol] 2.6 g/dL 2.2-4.2 [facility] Serum glucose measurement (m ass/volume)Ordered By: Benedict Phillip on 05-04-2025 Glucose [Mass/Vol] 134 mg/dL High 70-99 [facility] Serum or plasma alanine mays otransferase (ALT) measurementOrdered By: Benedict Phillip on 05-04-2025 ALT [Catalytic activity/Vol] 883 U/L High <47 [facility] Serum or plasma albumin marquise urement (mass/volume)Ordered By: Benedict Phillip on 05-04-2025 Albumin [Mass/Vol] 4.2 g/dL 3.5-5.0 [facility] Serum or plasma alkaline daniel sphatase measurementOrdered By: Benedict Phillip on 05-04-2025 ALP [Catalytic activity/Vol] 158 U/L High 40-129 [facility] Serum or plasma calcium marquise urement (mass/volume)Ordered By: Benedict Phillip 05-04-2025 Calcium [Mass/Vol] 9.1 mg/dL 7.6-11.0 [facility] Serum or plasma urea nitroge n measurement (mass/volume)Ordered By: Benedict Phillip 05-04-2025 Urea nitrogen [Mass/Vol] 12 mg/dL 4-19 [facility] Sodium levelOrdered By: Matthew Phillip on 05-04-2025 Sodium [Moles/Vol] 138 mmol/L 133-145 [facility] Total proteinOrdered By: Basil Phillip on 05-04-2025 Protein [Mass/Vol] 6.8 g/dL 5.9-8.4 [facility] White blood cell (WBC) count Ordered By: Benedict Phillip on 05-04-2025 WBC (Bld) [#/Vol] 9.6 10*3/uL 4.4-11.0 [facility] 12 Lead EKGon 05-03-2025 12 Lead EKG Normal [facility] ERCP Biliary/Pancreason ERCP Biliary/Pancreas Normal [facility] ERCP Reporton 05-03-2025 ERCP Report Normal [facility] MR/OP.PROVATon 05-03-2025 MR/OP.PROVAT Normal [facility] MR/POSTOP.ANEon 05-03-2025 MR/POSTOP.ANE Normal [facility] MR/[id number] 05-03-2025 MR/POSTOPAN2 Normal [facility] O.R. Fluoro for C-Triston - O.R. Fluoro for C-Arm Normal [facility] Special Stain Group IIon Special Stain Group II Normal [facility] Comment on above: Performed By: #### P SSII ####[facility] [address] [place], [place], [id number] MR/PAT.ANEon 04-27-2025 MR/PAT.ANE Normal [facility] Surgery Visit Reporton 04-07 Surgery Visit Report Normal [facility] Surgery Visit Reporton 03-31 Surgery Visit Report Normal [facility] Hepatobilliary Imagingon Hepatobilliary Imaging Normal [facility] Surgery Visit Reporton 03-25 Surgery Visit Report Normal [facility] Absolute lymphocyte countOrd ered By: Camron Shoemaker on 03-18-2025 Lymphocytes Auto (Unsp spec) [#/Vol] 1.52 10*3/uL 0.83-4.51 [facility] Absolute neutrophil countOrd ered By: Camron Shoemaker on 03-18-2025 Neutrophils (Bld) [#/Vol] 6.8 10*3/uL 2.0-7.7 [facility] Anion gap in Serum or Plasma Ordered By: Camron Shoemaker on 03-18-2025 Anion gap [Moles/Vol] 10 mmol/L 5- [facility] Automated lymphocyte count a s percentage of total leukocytesOrdered By: Camron Shoemaker on 03-18-2025 Lymphocytes/100 WBC Auto (Unsp spec) 16.5 % Low [facility] BUN/creatinine ratioOrdered By: Camron Shoemaker on 03-18-2025 Urea nitrogen/Creatinine [Mass ratio] 11.9 mg/mg 07-19 [facility] Basophil percentageOrdered B y: Camron Shoemaker on 03-18-2025 Basophils/100 WBC (Bld) 0.2 % 0- [facility] Bilirubin, totalOrdered By: Camron Shoemaker on 03-18-2025 Bilirubin [Mass/Vol] 0.85 mg/dL 0.00-1.30 [facility] CBC W/Diff, Automatedon 02-28 Absolute Lymph 1.52 X10 3/uL Normal 0.83-4.51 [facility] Comment on above: Performed By: #### L 100.0100, L500.4050 ####[facility] [address] [place], [address] Absolute Neut 6.8 X10 3/uL Normal 2.0-7.7 [facility] Comment on above: Performed By: #### L 100.0100, L500.4050 ####[facility] [address] [place], [address] Basophils/100 WBC (Bld) 0.2 % Normal 0-1 [facility] Comment on above: Performed By: #### L 100.0100, L500.4050 ####[facility] [address] [place], [address] Eosinophils/100 WBC (Bld) 0.0 % Normal 0-5 [facility] Comment on above: Performed By: #### L 100.0100, L500.4050 ####[facility] [address] [place], [address] Erythrocyte distribution width (RBC) [Ratio] 13.6 % Normal 11.6-14.6 [facility] Comment on above: Performed By: #### L 100.0100, L500.4050 ####[facility] [address] [place], [address] Hematocrit (Bld) [Volume fraction] 43.6 % Normal 40-54 [facility] Comment on above: Performed By: #### L 100.0100, L500.4050 ####[facility] [address] [place], [address] Hemoglobin (Bld) [Mass/Vol] 14.8 g/dL Normal 13.0-16.5 [facility] Comment on above: Performed By: #### L 100.0100, L500.4050 ####[facility] [address] [place], [address] IG% 0.500 Normal 0.0-0.9 [facility] Comment on above: Result Comment: IG% - Immature Granulocytes (promyelocytes, myelocytes andmetamyelocytes) > 1% indicates that a LEFT SHIFT is Present. Performed By: #### L 100.0100, L500.4050 ####[facility] [address] [place], [address] Lymphocytes/100 WBC (Bld) 16.5 % Low 19-41 [facility] Comment on above: Performed By: #### L 100.0100, L500.4050 ####[facility] [address] [place], [address] MCH (RBC) [Entitic mass] 29.4 pg Normal 27.0-32.0 [facility] Comment on above: Performed By: #### L 100.0100, L500.4050 ####[facility] [address] [place], [address] MCHC (RBC) [Mass/Vol] 33.9 g/dL Normal 32-36 [facility] Comment on above: Performed By: #### L 100.0100, L500.4050 ####[facility] [address] [place], [address] MCV (RBC) [Entitic vol] 86.5 fL Normal 80-94 [facility] Comment on above: Performed By: #### L 100.0100, L500.4050 ####[facility] [address] [place], [address] Monocytes/100 WBC (Bld) 8.4 % Normal 0-10 [facility] Comment on above: Performed By: #### L 100.0100, L500.4050 ####[facility] [address] [place], [address] Neutrophils/100 WBC (Bld) 74.4 % High 47-70 [facility] Comment on above: Performed By: #### L 100.0100, L500.4050 ####[facility] [address] [place], [address] Nucleated RBC (Bld) [#/Vol] 0 10*3/uL Normal 0-5 [facility] Comment on above: Performed By: #### L 100.0100, L500.4050 ####[facility] [address] [place], [address] Platelet mean volume (Bld) [Entitic vol] 8.7 fL Normal 6.2-12.0 [facility] Comment on above: Performed By: #### L 100.0100, L500.4050 ####[facility] [address] [place], [address] Platelets (Bld) [#/Vol] 264 10*3/uL Normal 150-450 [facility] Comment on above: Performed By: #### L 100.0100, L500.4050 ####[facility] [address] [place], [address] RBC (Bld) [#/Vol] 5.04 10*6/uL Normal 4.6-6.2 [facility] Comment on above: Performed By: #### L 100.0100, L500.4050 ####[facility] [address] [place], [address] RDW SD 42.8 fl Normal 35.1-43.9 [facility] Comment on above: Performed By: #### L 100.0100, L500.4050 ####[facility] [address] [place], [address] WBC (Bld) [#/Vol] 9.2 10*3/uL Normal 4.4-11.0 [facility] Comment on above: Performed By: #### L 100.0100, L500.4050 ####[facility] [address] [place], [address] Carbon dioxide, total [Moles /volume] in Central venous bloodOrdered By: Camron Shoemaker on 03-18-2025 CO2 [Moles/Vol] 25.4 mmol/L 21.0-32.0 [facility] Chloride assayOrdered By: Stephanie Shoemaker on 03-18-2025 Chloride [Moles/Vol] 104 mmol/L 98-108 [facility] Comprehensive Metabolic Prof ilon 03-18-2025 Albumin [Mass/Vol] 4.0 g/dL Normal 3.5-5.0 [facility] Comment on above: Performed By: #### L 100.0100, L500.4050 ####[facility] [address] [place], [address] Albumin/Globulin [Mass ratio] 1.5 {ratio} Normal 0.9-2.4 [facility] Comment on above: Performed By: #### L 100.0100, L500.4050 ####[facility] [address] [place], [address] ALK PHOS 64 U/L Normal 40-129 [facility] Comment on above: Performed By: #### L 100.0100, L500.4050 ####[facility] [address] [place], [address] ALT [Catalytic activity/Vol] 65 U/L High <=46 [facility] Comment on above: Performed By: #### L 100.0100, L500.4050 ####[facility] [address] [place], [address] AST [Catalytic activity/Vol] 43 U/L High <=37 [facility] Comment on above: Performed By: #### L 100.0100, L500.4050 ####[facility] [address] [place], [address] Bilirubin [Mass/Vol] 0.85 mg/dL Normal 0.00-1.30 [facility] Comment on above: Performed By: #### L 100.0100, L500.4050 ####[facility] [address] [place], [address] BUN/CRE 11.9 RATIO Normal 10-20 [facility] Comment on above: Performed By: #### L 100.0100, L500.4050 ####[facility] [address] [place], [address] Calcium [Mass/Vol] 9.2 mg/dL Normal 7.6-11.0 [facility] Comment on above: Performed By: #### L 100.0100, L500.4050 ####[facility] [address] [place], [address] Chloride [Moles/Vol] 104 mmol/L Normal 98-108 [facility] Comment on above: Performed By: #### L 100.0100, L500.4050 ####[facility] [address] [place], [address] CO2 [Moles/Vol] 25.4 mmol/L Normal 21.0-32.0 [facility] Comment on above: Performed By: #### L 100.0100, L500.4050 ####[facility] [address] [place], [address] Creatinine [Mass/Vol] 1.00 mg/dL Normal 0.70-1.20 [facility] Comment on above: Performed By: #### L 100.0100, L500.4050 ####[facility] [address] [place], [address] ECRCL 113.19 ml/min Normal 50-250 [facility] Comment on above: Performed By: #### L 100.0100, L500.4050 ####[facility] [address] [place], [address] GAP 10 Normal 5-15 [facility] Comment on above: Performed By: #### L 100.0100, L500.4050 ####[facility] [address] [place], [address] GFR/1.73 sq M.predicted among non-blacks MDRD (S/P/Bld) [Vol rate/Area] 97 mL/min/{1.73_m2} Normal >60 [facility] Comment on above: Result Comment: mL/m in/1.73m2 CKD-EPI Creatinine Equation (2020) Performed By: #### L 100.0100, L500.4050 ####[facility] [address] [place], [address] Globulin (S) [Mass/Vol] 2.6 g/dL Normal 2.2-4.2 [facility] Comment on above: Performed By: #### L 100.0100, L500.4050 ####[facility] [address] [place], [address] Glucose [Mass/Vol] 114 mg/dL High 70-99 [facility] Comment on above: Performed By: #### L 100.0100, L500.4050 ####[facility] [address] [place], [address] Potassium [Moles/Vol] 4.0 mmol/L Normal 3.3-5.1 [facility] Comment on above: Performed By: #### L 100.0100, L500.4050 ####[facility] [address] [place], [address] Sodium [Moles/Vol] 139 mmol/L Normal 133-145 [facility] Comment on above: Performed By: #### L 100.0100, L500.4050 ####[facility] [address] [place], [address] T PROT 6.6 g/dL Normal 5.9-8.4 [facility] Comment on above: Performed By: #### L 100.0100, L500.4050 ####[facility] [address] [place], [address] Urea nitrogen [Mass/Vol] 12 mg/dL Normal - [facility] Comment on above: Performed By: #### L 100.0100, L500.4050 ####[facility] [address] [place], [address] Discharge Instructionon 02-28 Discharge Instruction Normal [facility] Eosinophil percentageOrdered By: Camron Shoemaker on 03-18-2025 Eosinophils/100 WBC (Bld) 0.0 % 0-5 [facility] Erythrocyte distribution wid th ratioOrdered By: Camron Shoemaker on 03-18-2025 Erythrocyte distribution width (RBC) [Ratio] 13.6 % 11.6-14.6 [facility] Erythrocyte distribution wid th standard deviationOrdered By: Camron Shoemaker on 03-18-2025 Erythrocyte distribution width (RBC) [Ratio] 42.8 fl 35.1-43.9 [facility] Glomerular filtration rate ( GFR) estimation/1.73 sq m using serum, plasma, or whole bOrdered By: Camron Shoemaker on 03-18-2025 GFR/1.73 sq M.predicted among non-blacks MDRD (S/P/Bld) [Vol rate/Area] 97 mL/min/{1.73_m2} >60 [facility] Comment on above: mL/min/1.73m2 CKD-EP I Creatinine Equation (2020) Hematocrit Auto (Bld) [Volum e fraction]Ordered By: Camrno Shoemaker on 03-18-2025 Hematocrit (Bld) [Volume fraction] 43.6 % 40-54 [facility] Hemoglobin measurementOrdere d By: Camron Shoemaker on 03-18-2025 Hemoglobin (Bld) [Mass/Vol] 14.8 g/dL 13.0-16.5 [facility] Immature granulocytes/100 WB C Auto (Bld)Ordered By: Camron Shoemaker on 03-18-2025 Immature granulocytes/100 WBC (Bld) 0.500 % 0.0-0.9 [facility] Comment on above: IG% - Immature Granu locytes (promyelocytes, myelocytes and metamyelocytes) > 1% indicates that a LEFT SHIFT is Present. Laboratory - Chemistry and C hemistry - challengeOrdered By: Camron Shoemaker on 03-18-2025 AST [Catalytic activity/Vol] 43 U/L High <38 [facility] MCV (mean corpuscular volume ) determinationOrdered By: Camron Shoemaker on 03-18-2025 MCV (RBC) [Entitic vol] 86.5 fL 80-94 [facility] Mean corpuscular hemoglobin (MCH) determinationOrdered By: Camron Shoemaker on 03-18-2025 MCH (RBC) [Entitic mass] 29.4 pg 27.0-32.0 [facility] Mean corpuscular hemoglobin concentration (MCHC) determinationOrdered By: Camron Shoemaker on 03-18-2025 MCHC (RBC) [Mass/Vol] 33.9 g/dL 32-36 [facility] Mean platelet volume determi nationOrdered By: Camron Shoemaker on 03-18-2025 Platelet mean volume (Bld) [Entitic vol] 8.7 fL 6.2-12.0 [facility] Monocyte percentageOrdered B y: Camron Shoemaker on 03-18-2025 Monocytes/100 WBC (Bld) 8.4 % 0-10 [facility] Neutrophil percentageOrdered By: Camron Shoemaker on 03-18-2025 Neutrophils/100 WBC (Bld) 74.4 % High 47-70 [facility] Nucleated red blood cell per centageOrdered By: Camron Shoemaker on 03-18-2025 Nucleated RBC/100 WBC (Bld) [Ratio] 0 % 0-5 [facility] Platelet countOrdered By: Stephanie Shoemaker on 03-18-2025 Platelets (Bld) [#/Vol] 264 10*3/uL 150-450 [facility] Potassium measurement (mass/ volume)Ordered By: Camron Shoemaker on 03-18-2025 Potassium (Unsp spec) [Mass/Vol] 4.0 mmol/L 3.3-5.1 [facility] RBC Auto (Bld) [#/Vol]Ordere d By: Camron Shoemaker on 03-18-2025 RBC (Bld) [#/Vol] 5.04 10*6/uL 4.6-6.2 [facility] Serum creatinine measurement (mass/volume)Ordered By: Camron Shoemaker on 03-18-2025 Creatinine [Mass/Vol] 1.00 mg/dL 0.70-1.20 [facility] Serum globulin measurementOr dered By: Camron Shoemaker on 03-18-2025 Globulin (S) [Mass/Vol] 2.6 g/dL 2.2-4.2 [facility] Serum glucose measurement (m ass/volume)Ordered By: Camron Shoemaker on 03-18-2025 Glucose [Mass/Vol] 114 mg/dL High 70-99 [facility] Serum or plasma alanine mays otransferase (ALT) measurementOrdered By: Camron Shoemaker on 03-18-2025 ALT [Catalytic activity/Vol] 65 U/L High <47 [facility] Serum or plasma albumin marquise urement (mass/volume)Ordered By: Camron Shoemaker on 03-18-2025 Albumin [Mass/Vol] 4.0 g/dL 3.5-5.0 [facility] Serum or plasma albumin/glob ulin mass ratioOrdered By: Camron Shoemaker on 03-18-2025 Albumin/Globulin [Mass ratio] 1.5 {ratio} 0.9-2.4 [facility] Serum or plasma alkaline daniel sphatase measurementOrdered By: Camron Shoemaker on 03-18-2025 ALP [Catalytic activity/Vol] 64 U/L 40-129 [facility] Serum or plasma calcium marquise urement (mass/volume)Ordered By: Camron Shoemaker on 03-18-2025 Calcium [Mass/Vol] 9.2 mg/dL 7.6-11.0 [facility] Serum or plasma urea nitroge n measurement (mass/volume)Ordered By: Camron Shoemaker on 03-18-2025 Urea nitrogen [Mass/Vol] 12 mg/dL 4-19 [facility] Sodium levelOrdered By: Kan flores Navid on 03-18-2025 Sodium [Moles/Vol] 139 mmol/L 133-145 [facility] Total proteinOrdered By: Anuj Shoemaker on 03-18-2025 Protein [Mass/Vol] 6.6 g/dL 5.9-8.4 [facility] White blood cell (WBC) count Ordered By: Camron Shoemaker on 03-18-2025 WBC (Bld) [#/Vol] 9.2 10*3/uL 4.4-11.0 [facility] MR/PAT.ANEon 03-17-2025 MR/PAT.ANE Normal [facility] MR/POSTOP.ANEon 03-17-2025 MR/POSTOP.ANE Normal [facility] MR/POSTOP.ANE Normal [facility] MR/[id number] 03-17-2025 MR/POSTOPAN2 Normal [facility] Operative Reporton Operative Report Normal [facility] Surgery Specimen Level IIIon 03-17-2025 Surgery Specimen Level III [facility] Comment on above: Performed By: #### P SUIII ####[facility] [address] [place], [address] 12 Lead EKGon 03-08-2025 12 Lead EKG Normal [facility] Electrocardiogram reportOrde red By: Camron Redd on 03-08-2025 EKG study [facility] Cardi[facility] Services [address] [place] [address] 12 Lead EKG 03/08/25 0835 MR#: [id number] Acct: [id number] Name: DIANE CONNORS Rep #:[id number] : 1985 39 From: Camron randall MD Attending Dr: Dr. Camron Shoemaker MD Status: [facility] Ordering Dr: Gray López MD Date: Location: [facility] Sex: M C Admitted: [...] change was found Confirmed by Camron Redd ([id number]), website/blog editor CHAVA CASEY ([id number]) on 03/08/2025 10:43:33 AM Referred By: Camron Shoemaker Confirmed By: Camron Redd 03/08/25 1043 Date _ Camron Redd MD CC: AGUILAR Arias; Dr. Gray López MD; Dr. Camron Shoemaker MD ~ Signed [facility] Work Phone: Liver Profileon 03-08-2025 Albumin [Mass/Vol] 4.4 g/dL Normal 3.5-5.0 [facility] Comment on above: Performed By: #### L 500.3400 ####[facility] [address] [place], [address] ALK PHOS 73 U/L Normal 40-129 [facility] Comment on above: Performed By: #### L 500.3400 ####[facility] [address] [place], [address] ALT [Catalytic activity/Vol] 38 U/L Normal <=46 [facility] Comment on above: Performed By: #### L 500.3400 ####[facility] [address] [place], [address] AST [Catalytic activity/Vol] 33 U/L Normal <=37 [facility] Comment on above: Performed By: #### L 500.3400 ####[facility] [address] [place], [address] Bilirubin [Mass/Vol] 0.58 mg/dL Normal 0.00-1.30 [facility] Comment on above: Performed By: #### L 500.3400 ####[facility] [address] [place], [address] Bilirubin.direct [Mass/Vol] 0.22 mg/dL Normal 0.00-0.30 [facility] Comment on above: Performed By: #### L 500.3400 ####[facility] [address] [place], [address] Globulin (S) [Mass/Vol] 2.7 g/dL Normal 2.2-4.2 [facility] Comment on above: Performed By: #### L 500.3400 ####[facility] [address] [place], [address] T PROT 7.1 g/dL Normal 5.9-8.4 [facility] Comment on above: Performed By: #### L 500.3400 ####[facility] [address] [place], [address] MR/Lena 03-08-2025 MR/PAT.ANE Normal [facility] MR/PAT.ANE Normal [facility] Hepatobilliary Imagingon Hepatobilliary Imaging Normal [facility] Normal . [facility] Comment on above: Order Comment: [id number] 5APOLIPOPROTEIN B Result Comment: Test Ordered: [id number] Apolipoprotein BApolipoprotein B 122 [H ] mg/dL Reference Range: <90 Desirable < 90 Borderline High 90 - 99 High 100 - 130 Very High >130 ASCVD RISK THERAPEUTIC TARGET CATEGORY APO B (mg/dL) Very High Risk <80 (if extreme risk <70) High Risk <90 Moderate Risk <90Performed at: [facility] [address] [id number] Director: Kelly Jansen MD, Phone: [phone] at: [address] [id number] Director: Raj Dick PhD, Phone: [phone] Performed By: #### L 3410.9998, L501.1400, L300.4700, L500.4100, L803.0600, L3400.4600, L501.6710, L3100.7870 ####[facility] [address] [place], [place], [id number] CRP, High Sensitivity [id number] on 01-07-2025 CRP, HIGH SENS 2.61 mg/L Normal 0.00-3.00 [facility] Comment on above: Result Comment: Rela tive Risk for Future Cardiovascular Event Low <1.00 Average 1.00 - 3.00 High >3.00 Performed By: #### L 3410.9998, L501.1400, L300.4700, L500.4100, L803.0600, L3400.4600, L501.6710, L3100.7870 ####[facility] [address] [place], [place], [id number] L803.0600on 01-07-2025 HOMOCYSTEINE 9.0 umol/L Normal 0.0-14.5 [facility] Comment on above: Result Comment: Perf ormed at: [address] [id number] Director: Raj Dick PhD, Phone: [phone] Performed By: #### L 3410.9998, L501.1400, L300.4700, L500.4100, L803.0600, L3400.4600, L501.6710, L3100.7870 ####[facility] [address] [place], [place], [id number] [facility] Misc.on 01-07-2025 [facility] Misc. COMMENT Normal . [facility] Comment on above: Order Comment: [id number] 7CRP QUANT Result Comment: Test Ordered: [id number] C-Reactive Protein, QuantC-Reactive Protein, Quant 2 mg/L CB Reference Range: 0-10Performed at: [facility] [address] [id number] Director: Raj Dick PhD, Phone: [phone] Performed By: #### L 3410.9998 ####[facility] [address] [place], [place], [id number] Lipoprotein Aon 01-07-2025 Lipoprotein a [Moles/Vol] 16.5 nmol/L Normal <75.0 [facility] Comment on above: Result Comment: Note : Values greater than or equal to 75.0 nmol/L may indicate an independent risk factor for CHD, but must be evaluated with caution when applied to non- populations due to the influence of genetic factors on Lp(a) across ethnicities.Performed at: [facility] [id number] [place], [place] [id number] Director: Raj Dick PhD, Phone: [phone] Performed By: #### L 3410.9998, L501.1400, L300.4700, L500.4100, L803.0600, L3400.4600, L501.6710, L3100.7870 ####[facility] [address] [place], [place], [id number] C-reactive protein measureme nt by high sensitivity methodOrdered By: Michela Sal on 01-05-2025 C-reactive protein measurement by high sensitivity method 2.61 mg/L 0.00-3.00 [facility] Comment on above: Relative Risk for Fu ture Cardiovascular Event Low <1.00 Average 1.00 - 3.00 High >3.00 CRPon 01-05-2025 C-REACTIVE PROT < 3.00 Normal 0.0-3.0 [facility] Comment on above: Performed By: #### L 3410.9998, L501.1400, L300.4700, L500.4100, L803.0600, L3400.4600, L501.6710, L3100.7870 ####[facility] [address] [place], [address] Calculated very low density lipoprotein (VLDL) cholesterol measurementOrdered By: Michela Sal on 01-05-2025 Calculated very low density lipoprotein (VLDL) cholesterol measurement 21 mg/dL 5-40 [facility] Fibrinogenon 01-05-2025 FIBRINOGEN 378 mg/dl Normal 203-444 [facility] Comment on above: Performed By: #### L 3410.9998, L501.1400, L300.4700, L500.4100, L803.0600, L3400.4600, L501.6710, L3100.7870 ####[facility] [address] [place], [address] LDL calc ser/plasOrdered By: Michela Sal on 01-05-2025 Cholesterol in LDL [Mass/Vol] 138 mg/dL Normal [facility] Comment on above: Vdiqyekptz=865-118 m g/dL & Higher Dpyz=814 mg/dL or greater Result Comment: Bord oanwye=592-057 mg/dL Higher Xjzj=934 mg/dL or greater Performed By: #### L 3410.9998, L501.1400, L300.4700, L500.4100, L803.0600, L3400.4600, L501.6710, L3100.7870 ####[facility] [address] [place], [place], [phone] Lipid Profileon 01-05-2025 CHOL:HDL 4.03 Normal [facility] Comment on above: Performed By: #### L 3410.9998, L501.1400, L300.4700, L500.4100, L803.0600, L3400.4600, L501.6710, L3100.7870 ####[facility] [address] [place], [place], [address] Cholesterol in VLDL [Mass/Vol] 21 mg/dL Normal 5-40 [facility] Comment on above: Performed By: #### L 3410.9998, L501.1400, L300.4700, L500.4100, L803.0600, L3400.4600, L501.6710, L3100.7870 ####[facility] [address] [place], [place], [id number] Lipoprotein a [Mass/Vol]Orde red By: Michela Sal on 01-05-2025 Lipoprotein a [Moles/Vol] 16.5 nmol/L <75.0 [facility] Comment on above: Note: Values greater than or equal to 75.0 nmol/L may indicate an independent risk factor for CHD, but must be evaluated with caution when applied to non- populations due to the influence of genetic factors on Lp(a) across ethnicities.Performed at: [facility] [address] [id number] Director: Raj Dick PhD, Phone: [phone] Screening total cholesterol/ high density lipoprotein (HDL) cholesterol ratioOrdered By: Michela Sal on 01-05-2025 Cholesterol.total/Cho lesterol in HDL [Mass ratio] 4.03 {ratio} [facility] Serum or plasma C reactive p rotein measurement (mass/volume)Ordered By: Michela Sal on 01-05-2025 CRP [Mass/Vol] mg/L 0.0-3.0 [facility] Serum or plasma cholesterol in HDL measurement (mass/volume)Ordered By: Michela Sal on 01-05-2025 Cholesterol in HDL [Mass/Vol] 52 mg/dL Normal [facility] Comment on above: National Cholesterol [...] L501.1400, L300.4700, L500.4100, L803.0600, L3400.4600, L501.6710, L3100.7870 ####[facility] [address] [place], [address] Serum or plasma cholesterol measurement (mass/volume)Ordered By: Michela Sal on 01-05-2025 Cholesterol [Mass/Vol] 211 mg/dL High <=200 [facility] Comment on above: Cholesterol level, D esirable <200 mg/dLBorderline high cholesterol 200-239 mg/dLHigh cholesterol >=240 mg/dLRecommendations of the NCEP Adult Treatment Panel for the following risk-cutoff thresholds for the [place] population. Result Comment: Chol esterol level, Desirable <200 mg/dLBorderline high cholesterol 200-239 mg/dLHigh cholesterol >=240 mg/dLRecommendations of the NCEP Adult Treatment Panel for thefollowing risk-cutoff thresholds for the [place] Americanpopulation. Performed By: #### L 3410.9998, L501.1400, L300.4700, L500.4100, L803.0600, L3400.4600, L501.6710, L3100.7870 ####[facility] [address] [place], [place], [id number] Serum or plasma uric acid me asurement (mass/volume)Ordered By: Michela Sal on 01-05-2025 Urate [Mass/Vol] 5.1 mg/dL 3.5-7.2 [facility] Comment on above: The drugs N-Acetylcy steine and Metamizole may falsely depress this assay. Triglycerides measurementOrd ered By: Michela Sal on 01-05-2025 Triglyceride [Mass/Vol] 103 mg/dL Normal [facility] Comment on above: The drugs N-Acetylcy steine and Metamizole may falsely depress this assay. Normal range: <150 mg/dLBorderline High: 150-199 mg/dLHigh: 200-499 mg/dLVery High: >500 mg/dL Result Comment: The drugs N-Acetylcysteine and Metamizole may falselydepress this assay.Normal range: <150 mg/dLBorderline High: 150-199 mg/dLHigh: 200-499 mg/dLVery High: >500 mg/dL Performed By: #### L 3410.9998, L501.1400, L300.4700, L500.4100, L803.0600, L3400.4600, L501.6710, L3100.7870 ####[facility] [address] [place], [place], [id number] Uric Acidon 01-05-2025 URIC 5.1 mg/dL Normal 3.5-7.2 [facility] Comment on above: Result Comment: The drugs N-Acetylcysteine and Metamizole may falselydepress this assay. Performed By: #### L 3410.9998, L501.1400, L300.4700, L500.4100, L803.0600, L3400.4600, L501.6710, L3100.7870 ####[facility] [address] [place], [address] Bilirubin directOrdered By: Cayla Quiñonez on 12-31-2024 Bilirubin.direct [Mass/Vol] 0.42 mg/dL High 0.00-0.30 [facility] Bilirubin, totalOrdered By: Cayla Quiñonez on 12-31-2024 Bilirubin [Mass/Vol] 0.64 mg/dL 0.00-1.30 [facility] Gastroenterology Visit Repor ton 12-31-2024 Gastroenterology Visit Report Normal [facility] Laboratory - Chemistry and C hemistry - challengeOrdered By: Cayla Quiñonez on 12-31-2024 AST [Catalytic activity/Vol] 38 U/L <38 [facility] Liver Profileon 12-31-2024 Albumin [Mass/Vol] 4.0 g/dL Normal 3.5-5.0 [facility] Comment on above: Performed By: #### L 500.3400 ####[facility] [address] [place], [address] ALK PHOS 112 U/L Normal 40-129 [facility] Comment on above: Performed By: #### L 500.3400 ####[facility] [address] [place], [address] ALT [Catalytic activity/Vol] 64 U/L High <=46 [facility] Comment on above: Performed By: #### L 500.3400 ####[facility] [address] [place], [address] AST [Catalytic activity/Vol] 38 U/L Normal <=37 [facility] Comment on above: Performed By: #### L 500.3400 ####[facility] [address] [place], [address] Bilirubin [Mass/Vol] 0.64 mg/dL Normal 0.00-1.30 [facility] Comment on above: Performed By: #### L 500.3400 ####[facility] [address] [place], [place], [address] Bilirubin.direct [Mass/Vol] 0.42 mg/dL High 0.00-0.30 [facility] Comment on above: Performed By: #### L 500.3400 ####[facility] [address] [place], [address] Globulin (S) [Mass/Vol] 3.1 g/dL Normal 2.2-4.2 [facility] Comment on above: Performed By: #### L 500.3400 ####[facility] [address] [place], [address] T PROT 7.0 g/dL Normal 5.9-8.4 [facility] Comment on above: Performed By: #### L 500.3400 ####[facility] [address] [place], [address] Serum globulin measurementOr dered By: Cayla Quiñonez on 12-31-2024 Globulin (S) [Mass/Vol] 3.1 g/dL 2.2-4.2 [facility] Serum or plasma alanine mays otransferase (ALT) measurementOrdered By: Cayla Quiñonez on 12-31-2024 ALT [Catalytic activity/Vol] 64 U/L High <47 [facility] Serum or plasma albumin marquise urement (mass/volume)Ordered By: Cayla Quiñonez on 12-31-2024 Albumin [Mass/Vol] 4.0 g/dL 3.5-5.0 [facility] Serum or plasma alkaline daniel sphatase measurementOrdered By: Cayla Quiñonez on 12-31-2024 ALP [Catalytic activity/Vol] 112 U/L 40-129 [facility] Surgery Visit Reporton 12-31 Surgery Visit Report Normal [facility] Total proteinOrdered By: Vanessa Quiñonez on 12-31-2024 Protein [Mass/Vol] 7.0 g/dL 5.9-8.4 [facility] Culture, Blood (WB)on 2024 CUB Normal [facility] Comment on above: Performed By: #### M 200.1000 ####[facility] [address] [place], [address] Culture, Blood (WB)on 2024 CUB Normal [facility] Comment on above: Performed By: #### M 200.1000 ####[facility] [address] [place], [address] Liver Profileon 12-18-2024 ALB Normal 3.5-5.0 [facility] Comment on above: Result Comment: Canc elled via OM: Order cancelled - Patient discharged Performed By: #### L 500.3400 ####[facility] [address] [place], [address] ALK PHOS Normal 40-129 [facility] Comment on above: Result Comment: Canc elled via OM: Order cancelled - Patient discharged Performed By: #### L 500.3400 ####[facility] [address] [place], [address] ALT Normal <=46 [facility] Comment on above: Result Comment: Canc elled via OM: Order cancelled - Patient discharged Performed By: #### L 500.3400 ####[facility] [address] [place], [address] AST Normal <=37 [facility] Comment on above: Result Comment: Canc elled via OM: Order cancelled - Patient discharged Performed By: #### L 500.3400 ####[facility] [address] [place], [address] D BILI Normal 0.00-0.30 [facility] Comment on above: Result Comment: Canc elled via OM: Order cancelled - Patient discharged Performed By: #### L 500.3400 ####[facility] [address] [place], [address] T BILI Normal 0.00-1.30 [facility] Comment on above: Result Comment: Canc elled via OM: Order cancelled - Patient discharged Performed By: #### L 500.3400 ####[facility] [address] [place], [address] T PROT Normal 5.9-8.4 [facility] Comment on above: Result Comment: Canc elled via OM: Order cancelled - Patient discharged Performed By: #### L 500.3400 ####[facility] [address] [place], [address] CBC W/Diff, Automatedon 11-29-2024 Absolute Neut Normal 2.0-7.7 [facility] Comment on above: Result Comment: Canc elled via OM: Order cancelled - Patient discharged Performed By: #### L 500.3400, L100.0100 ####[facility] [address] [place], [address] HCT Normal 40-54 [facility] Comment on above: Result Comment: Canc elled via OM: Order cancelled - Patient discharged Performed By: #### L 500.3400, L100.0100 ####[facility] [address] [place], [address] HGB Normal 13.0-16.5 [facility] Comment on above: Result Comment: Canc elled via OM: Order cancelled - Patient discharged Performed By: #### L 500.3400, L100.0100 ####[facility] [address] [place], [address] MCH Normal 27.0-32.0 [facility] Comment on above: Result Comment: Canc elled via OM: Order cancelled - Patient discharged Performed By: #### L 500.3400, L100.0100 ####[facility] [address] [place], [address] MCHC Normal 32-36 [facility] Comment on above: Result Comment: Canc elled via OM: Order cancelled - Patient discharged Performed By: #### L 500.3400, L100.0100 ####[facility] [address] [place], [address] MCV Normal 80-94 [facility] Comment on above: Result Comment: Canc elled via OM: Order cancelled - Patient discharged Performed By: #### L 500.3400, L100.0100 ####[facility] [address] [place], [address] NEUT% Normal 47-70 [facility] Comment on above: Result Comment: Canc elled via OM: Order cancelled - Patient discharged Performed By: #### L 500.3400, L100.0100 ####[facility] [address] [place], [address] PLT Normal 150-450 [facility] Comment on above: Result Comment: Canc elled via OM: Order cancelled - Patient discharged Performed By: #### L 500.3400, L100.0100 ####[facility] [address] [place], [address] RBC Normal 4.6-6.2 [facility] Comment on above: Result Comment: Canc elled via OM: Order cancelled - Patient discharged Performed By: #### L 500.3400, L100.0100 ####[facility] [address] [place], [address] RDW CV Normal 11.6-14.6 [facility] Comment on above: Result Comment: Canc elled via OM: Order cancelled - Patient discharged Performed By: #### L 500.3400, L100.0100 ####[facility] [address] [place], [address] RDW SD Normal 35.1-43.9 [facility] Comment on above: Result Comment: Canc elled via OM: Order cancelled - Patient discharged Performed By: #### L 500.3400, L100.0100 ####[facility] [address] [place], [address] WBC Normal 4.4-11.0 [facility] Comment on above: Result Comment: Canc elled via OM: Order cancelled - Patient discharged Performed By: #### L 500.3400, L100.0100 ####[facility] [address] [place], [address] L501.5101on 12-17-2024 GGTP 174 IU/L Abnormal 0-65 [facility] Comment on above: Result Comment: Perf ormed at: [facility] [address] [id number] Director: Raj Dick PhD, Phone: [phone] Performed By: #### L 501.5101 ####[facility] [address] [place], [address] Liver Profileon 12-17-2024 ALB Normal 3.5-5.0 [facility] Comment on above: Result Comment: Canc elled via OM: Order cancelled - Patient discharged Performed By: #### L 500.3400, L100.0100 ####[facility] [address] [place], [address] ALK PHOS Normal 40-129 [facility] Comment on above: Result Comment: Canc elled via OM: Order cancelled - Patient discharged Performed By: #### L 500.3400, L100.0100 ####[facility] [address] [place], [address] ALT Normal <=46 [facility] Comment on above: Result Comment: Canc elled via OM: Order cancelled - Patient discharged Performed By: #### L 500.3400, L100.0100 ####[facility] [address] [place], [address] AST Normal <=37 [facility] Comment on above: Result Comment: Canc elled via OM: Order cancelled - Patient discharged Performed By: #### L 500.3400, L100.0100 ####[facility] [address] [place], [address] D BILI Normal 0.00-0.30 [facility] Comment on above: Result Comment: Canc elled via OM: Order cancelled - Patient discharged Performed By: #### L 500.3400, L100.0100 ####[facility] [address] [place], [address] T BILI Normal 0.00-1.30 [facility] Comment on above: Result Comment: Canc elled via OM: Order cancelled - Patient discharged Performed By: #### L 500.3400, L100.0100 ####[facility] [address] [place], [address] T PROT Normal 5.9-8.4 [facility] Comment on above: Result Comment: Canc elled via OM: Order cancelled - Patient discharged Performed By: #### L 500.3400, L100.0100 ####[facility] [address] [place], [address] Absolute lymphocyte countOrd ered By: Francesco Lui on 12-16-2024 Lymphocytes Auto (Unsp spec) [#/Vol] 1.28 10*3/uL 0.83-4.51 [facility] Absolute neutrophil countOrd ered By: Francesco Lui on 12-16-2024 Neutrophils (Bld) [#/Vol] 3.7 10*3/uL 2.0-7.7 [facility] Anion gap in Serum or Plasma Ordered By: Francesco Lui on 12-16-2024 Anion gap [Moles/Vol] 10 mmol/L 5-15 [facility] Automated lymphocyte count a s percentage of total leukocytesOrdered By: Francesco Lui on 12-16-2024 Lymphocytes/100 WBC Auto (Unsp spec) 20.8 % [facility] BUN/creatinine ratioOrdered By: Francesco Lui on 12-16-2024 Urea nitrogen/Creatinine [Mass ratio] 12.7 mg/mg - [facility] Basic Metabolic Profile (BMP )on 12-16-2024 BUN/CRE 12.7 RATIO Normal - [facility] Comment on above: Performed By: #### L 500.3400, L500.2500, L100.0100 ####[facility] [address] [place], [address] Calcium [Mass/Vol] 9.0 mg/dL Normal 7.6-11.0 [facility] Comment on above: Performed By: #### L 500.3400, L500.2500, L100.0100 ####[facility] [address] [place], [address] Chloride [Moles/Vol] 104 mmol/L Normal 98-108 [facility] Comment on above: Performed By: #### L 500.3400, L500.2500, L100.0100 ####[facility] [address] [place], [address] CO2 [Moles/Vol] 24.8 mmol/L Normal 21.0-32.0 [facility] Comment on above: Performed By: #### L 500.3400, L500.2500, L100.0100 ####[facility] [address] [place], [address] Creatinine [Mass/Vol] 1.06 mg/dL Normal 0.70-1.20 [facility] Comment on above: Performed By: #### L 500.3400, L500.2500, L100.0100 ####[facility] [address] [place], [address] ECRCL 105.07 ml/min Normal 50-250 [facility] Comment on above: Performed By: #### L 500.3400, L500.2500, L100.0100 ####[facility] [address] [place], [address] GAP 10 Normal 5-15 [facility] Comment on above: Performed By: #### L 500.3400, L500.2500, L100.0100 ####[facility] [address] [place], [address] GFR/1.73 sq M.predicted among non-blacks MDRD (S/P/Bld) [Vol rate/Area] 90 mL/min/{1.73_m2} Normal >60 [facility] Comment on above: Result Comment: mL/m in/1.73m2 CKD-EPI Creatinine Equation (2020) Performed By: #### L 500.3400, L500.2500, L100.0100 ####[facility] [address] [place], [address] Glucose [Mass/Vol] 85 mg/dL Normal 70-99 [facility] Comment on above: Performed By: #### L 500.3400, L500.2500, L100.0100 ####[facility] [address] [place], [address] Potassium [Moles/Vol] 4.0 mmol/L Normal 3.3-5.1 [facility] Comment on above: Performed By: #### L 500.3400, L500.2500, L100.0100 ####[facility] [address] [place], [address] Sodium [Moles/Vol] 139 mmol/L Normal 133-145 [facility] Comment on above: Performed By: #### L 500.3400, L500.2500, L100.0100 ####[facility] [address] [place], [address] Urea nitrogen [Mass/Vol] 14 mg/dL Normal 4-19 [facility] Comment on above: Performed By: #### L 500.3400, L500.2500, L100.0100 ####[facility] [address] [place], [address] Basophil percentageOrdered B y: Francesco Lui on 12-16-2024 Basophils/100 WBC (Bld) 0.8 % 0-1 [facility] Bilirubin directOrdered By: Francesco Lui on 12-16-2024 Bilirubin.direct [Mass/Vol] 1.88 mg/dL High 0.00-0.30 [facility] Bilirubin, totalOrdered By: Francesco Lui on 12-16-2024 Bilirubin [Mass/Vol] 2.75 mg/dL High 0.00-1.30 [facility] CBC W/Diff, Automatedon 11-28 Absolute Lymph 1.28 X10 3/uL Normal 0.83-4.51 [facility] Comment on above: Performed By: #### L 500.3400, L500.2500, L100.0100 ####[facility] [address] [place], [address] Absolute Neut 3.7 X10 3/uL Normal 2.0-7.7 [facility] Comment on above: Performed By: #### L 500.3400, L500.2500, L100.0100 ####[facility] [address] [place], [address] Basophils/100 WBC (Bld) 0.8 % Normal 0-1 [facility] Comment on above: Performed By: #### L 500.3400, L500.2500, L100.0100 ####[facility] [address] [place], [address] Eosinophils/100 WBC (Bld) 2.3 % Normal 0-5 [facility] Comment on above: Performed By: #### L 500.3400, L500.2500, L100.0100 ####[facility] [address] [place], [address] Erythrocyte distribution width (RBC) [Ratio] 13.0 % Normal 11.6-14.6 [facility] Comment on above: Performed By: #### L 500.3400, L500.2500, L100.0100 ####[facility] [address] [place], [address] Hematocrit (Bld) [Volume fraction] 39.8 % Low 40-54 [facility] Comment on above: Performed By: #### L 500.3400, L500.2500, L100.0100 ####[facility] [address] [place], [address] Hemoglobin (Bld) [Mass/Vol] 13.5 g/dL Normal 13.0-16.5 [facility] Comment on above: Performed By: #### L 500.3400, L500.2500, L100.0100 ####[facility] [address] [place], [address] IG% 1.600 High 0.0-0.9 [facility] Comment on above: Result Comment: IG% - Immature Granulocytes (promyelocytes, myelocytes andmetamyelocytes) > 1% indicates that a LEFT SHIFT is Present. Performed By: #### L 500.3400, L500.2500, L100.0100 ####[facility] [address] [place], [address] Lymphocytes/100 WBC (Bld) 20.8 % Normal 19-41 [facility] Comment on above: Performed By: #### L 500.3400, L500.2500, L100.0100 ####[facility] [address] [place], [address] MCH (RBC) [Entitic mass] 29.2 pg Normal 27.0-32.0 [facility] Comment on above: Performed By: #### L 500.3400, L500.2500, L100.0100 ####[facility] [address] [place], [address] MCHC (RBC) [Mass/Vol] 33.9 g/dL Normal 32-36 [facility] Comment on above: Performed By: #### L 500.3400, L500.2500, L100.0100 ####[facility] [address] [place], [address] MCV (RBC) [Entitic vol] 86.0 fL Normal 80-94 [facility] Comment on above: Performed By: #### L 500.3400, L500.2500, L100.0100 ####[facility] [address] [place], [address] Monocytes/100 WBC (Bld) 13.5 % High 0-10 [facility] Comment on above: Performed By: #### L 500.3400, L500.2500, L100.0100 ####[facility] [address] [place], [address] Neutrophils/100 WBC (Bld) 61.0 % Normal 47-70 [facility] Comment on above: Performed By: #### L 500.3400, L500.2500, L100.0100 ####[facility] [address] [place], [address] Nucleated RBC (Bld) [#/Vol] 0 10*3/uL Normal 0-5 [facility] Comment on above: Performed By: #### L 500.3400, L500.2500, L100.0100 ####[facility] [address] [place], [address] Platelet mean volume (Bld) [Entitic vol] 9.8 fL Normal 6.2-12.0 [facility] Comment on above: Performed By: #### L 500.3400, L500.2500, L100.0100 ####[facility] [address] [place], [address] Platelets (Bld) [#/Vol] 153 10*3/uL Normal 150-450 [facility] Comment on above: Performed By: #### L 500.3400, L500.2500, L100.0100 ####[facility] [address] [place], [address] RBC (Bld) [#/Vol] 4.63 10*6/uL Normal 4.6-6.2 [facility] Comment on above: Performed By: #### L 500.3400, L500.2500, L100.0100 ####[facility] [address] [place], [address] RDW SD 40.5 fl Normal 35.1-43.9 [facility] Comment on above: Performed By: #### L 500.3400, L500.2500, L100.0100 ####[facility] [address] [place], [address] WBC (Bld) [#/Vol] 6.1 10*3/uL Normal 4.4-11.0 [facility] Comment on above: Performed By: #### L 500.3400, L500.2500, L100.0100 ####[facility] [address] [place], [address] Carbon dioxide, total [Moles /volume] in Central venous bloodOrdered By: Francesco Lui on 12-16-2024 CO2 [Moles/Vol] 24.8 mmol/L 21.0-32.0 [facility] Chloride assayOrdered By: Gracie Lui on 12-16-2024 Chloride [Moles/Vol] 104 mmol/L 98-108 [facility] Consultation - Infectious Dx on 12-16-2024 Consultation - Infectious Dx Normal [facility] Consultation - Surgicalon Consultation - Surgical Normal [facility] Discharge Instructionon 11-28 Discharge Instruction Normal [facility] Eosinophil percentageOrdered By: Francesco Lui on 12-16-2024 Eosinophils/100 WBC (Bld) 2.3 % 0-5 [facility] Erythrocyte distribution wid th ratioOrdered By: Francesco Lui on 12-16-2024 Erythrocyte distribution width (RBC) [Ratio] 13.0 % 11.6-14.6 [facility] Erythrocyte distribution wid th standard deviationOrdered By: Francesco Lui on 12-16-2024 Erythrocyte distribution width (RBC) [Entitic vol] 40.5 fL 35.1-43.9 [facility] Erythrocyte distribution width (RBC) [Ratio] 40.5 fl 35.1-43.9 [facility] Estimation of creatinine alyson aranceOrdered By: Francesco Lui on 12-16-2024 Estimated Creatinine Clearance Calc 105.07 ml/min 50-250 [facility] GFR/1.73 sq M.predicted latrell g non-blacks MDRD (S/P/Bld) [Vol rate/Area]Ordered By: Francesco Lui on 12-16-2024 Estimated GFR (MDRD) Non-Af Amer 90 >60 [facility] Comment on above: mL/min/1.73m2 CKD-EP I Creatinine Equation (2020) Gamma glutamyl transferase ( GGT) measurementOrdered By: Francesco Lui on 12-16-2024 Amylase [Catalytic activity/Vol] 174 U/L High 0-65 [facility] Comment on above: Performed at: [facility] [employer] [place] [id number] Director: Raj Dick PhD, Phone: [phone] Glomerular filtration rate ( GFR) estimation/1.73 sq m using serum, plasma, or whole bOrdered By: Francesco Lui on 12-16-2024 GFR/1.73 sq M.predicted among non-blacks MDRD (S/P/Bld) [Vol rate/Area] 90 mL/min/{1.73_m2} >60 [facility] Comment on above: mL/min/1.73m2 CKD-EP I Creatinine Equation (2020) Hematocrit Auto (Bld) [Volum e fraction]Ordered By: Francesco Lui on 12-16-2024 Hematocrit (Bld) [Volume fraction] 39.8 % Low 40-54 [facility] Hemoglobin measurementOrdere d By: Francesco Lui on 12-16-2024 Hemoglobin (Bld) [Mass/Vol] 13.5 g/dL 13.0-16.5 [facility] Immature granulocytes/100 WB C Auto (Bld)Ordered By: Francesco Lui on 12-16-2024 Immature granulocytes/100 WBC (Bld) 1.600 % High 0.0-0.9 [facility] Comment on above: IG% - Immature Granu locytes (promyelocytes, myelocytes and metamyelocytes) > 1% indicates that a LEFT SHIFT is Present. Laboratory - Chemistry and C hemistry - challengeOrdered By: Francesco Lui on 12-16-2024 AST [Catalytic activity/Vol] 29 U/L <38 [facility] Liver Profileon 12-16-2024 Albumin [Mass/Vol] 3.1 g/dL Low 3.5-5.0 [facility] Comment on above: Performed By: #### L 500.3400, L500.2500, L100.0100 ####[facility] [address] [place], [address] ALK PHOS 136 U/L High 40-129 [facility] Comment on above: Performed By: #### L 500.3400, L500.2500, L100.0100 ####[facility] [address] [place], [address] ALT [Catalytic activity/Vol] 149 U/L High <=46 [facility] Comment on above: Performed By: #### L 500.3400, L500.2500, L100.0100 ####[facility] [address] [place], [address] AST [Catalytic activity/Vol] 29 U/L Normal <=37 [facility] Comment on above: Performed By: #### L 500.3400, L500.2500, L100.0100 ####[facility] [address] [place], [address] Bilirubin [Mass/Vol] 2.75 mg/dL High 0.00-1.30 [facility] Comment on above: Performed By: #### L 500.3400, L500.2500, L100.0100 ####[facility] [address] [place], [address] Bilirubin.direct [Mass/Vol] 1.88 mg/dL High 0.00-0.30 [facility] Comment on above: Performed By: #### L 500.3400, L500.2500, L100.0100 ####[facility] [address] [place], [address] Globulin (S) [Mass/Vol] 3.1 g/dL Normal 2.2-4.2 [facility] Comment on above: Performed By: #### L 500.3400, L500.2500, L100.0100 ####[facility] [address] [place], [address] T PROT 6.2 g/dL Normal 5.9-8.4 [facility] Comment on above: Performed By: #### L 500.3400, L500.2500, L100.0100 ####[facility] [address] [place], [address] Lymphocytes Auto (Unsp spec) [#/Vol]Ordered By: Francesco Lui on 12-16-2024 Lymphocytes (Bld) [#/Vol] 1.28 10*3/uL 0.83-4.51 [facility] Lymphocytes/100 WBC Auto (Un sp spec)Ordered By: Francesco Lui on 12-16-2024 Lymphocytes/100 WBC (Bld) 20.8 % 19-41 [facility] MCV (mean corpuscular volume ) determinationOrdered By: Francesco Lui on 12-16-2024 MCV (RBC) [Entitic vol] 86.0 fL 80-94 [facility] Mean corpuscular hemoglobin (MCH) determinationOrdered By: Francesco Lui on 12-16-2024 MCH (RBC) [Entitic mass] 29.2 pg 27.0-32.0 [facility] Mean corpuscular hemoglobin concentration (MCHC) determinationOrdered By: Francesco Lui on 12-16-2024 MCHC (RBC) [Mass/Vol] 33.9 g/dL 32-36 [facility] Mean platelet volume determi nationOrdered By: Francesco Lui on 12-16-2024 Platelet mean volume (Bld) [Entitic vol] 9.8 fL 6.2-12.0 [facility] Monocyte percentageOrdered B y: Francesco Lui on 12-16-2024 Monocytes/100 WBC (Bld) 13.5 % High 0-10 [facility] Neutrophil percentageOrdered By: Francesco Lui on 12-16-2024 Neutrophils/100 WBC (Bld) 61.0 % 47-70 [facility] Nucleated red blood cell per centageOrdered By: Francesco Lui on 12-16-2024 Nucleated RBC/100 WBC (Bld) [Ratio] 0 % 0-5 [facility] Platelet countOrdered By: Gracie Lui on 12-16-2024 Platelets (Bld) [#/Vol] 153 10*3/uL 150-450 [facility] Potassium (Unsp spec) [Mass/ Vol]Ordered By: Francesco Lui on 12-16-2024 Potassium [Moles/Vol] 4.0 mmol/L 3.3-5.1 [facility] Potassium measurement (mass/ volume)Ordered By: Francesco Lui on 12-16-2024 Potassium (Unsp spec) [Mass/Vol] 4.0 mmol/L 3.3-5.1 [facility] RBC Auto (Bld) [#/Vol]Ordere d By: Francesco Lui on 12-16-2024 RBC (Bld) [#/Vol] 4.63 10*6/uL 4.6-6.2 [facility] Serum creatinine measurement (mass/volume)Ordered By: Francseco Lui on 12-16-2024 Creatinine [Mass/Vol] 1.06 mg/dL 0.70-1.20 [facility] Serum globulin measurementOr dered By: Francesco Lui on 12-16-2024 Globulin (S) [Mass/Vol] 3.1 g/dL 2.2-4.2 [facility] Serum glucose measurement (m ass/volume)Ordered By: Francesco Lui on 12-16-2024 Glucose [Mass/Vol] 85 mg/dL 70-99 [facility] Serum or plasma alanine mays otransferase (ALT) measurementOrdered By: Francesco Lui on 12-16-2024 ALT [Catalytic activity/Vol] 149 U/L High <47 [facility] Serum or plasma albumin marquise urement (mass/volume)Ordered By: Francesco Lui on 12-16-2024 Albumin [Mass/Vol] 3.1 g/dL Low 3.5-5.0 [facility] Serum or plasma alkaline daniel sphatase measurementOrdered By: Francesco Lui on 12-16-2024 ALP [Catalytic activity/Vol] 136 U/L High 40-129 [facility] Serum or plasma calcium marquise urement (mass/volume)Ordered By: Francesco Lui on 12-16-2024 Calcium [Mass/Vol] 9.0 mg/dL 7.6-11.0 [facility] Serum or plasma urea nitroge n measurement (mass/volume)Ordered By: Francesco Lui on 12-16-2024 Urea nitrogen [Mass/Vol] 14 mg/dL 4-19 [facility] Sodium levelOrdered By: Frederick Lui on 12-16-2024 Sodium [Moles/Vol] 139 mmol/L 133-145 [facility] Total proteinOrdered By: Mendoza Lui on 12-16-2024 Protein [Mass/Vol] 6.2 g/dL 5.9-8.4 [facility] White blood cell (WBC) count Ordered By: Francesco Lui on 12-16-2024 WBC (Bld) [#/Vol] 6.1 10*3/uL 4.4-11.0 [facility] 12 Lead EKGon 12-15-2024 12 Lead EKG Normal [facility] CBC-Complete Blood Cnt No Di ffon 12-15-2024 Erythrocyte distribution width (RBC) [Ratio] 12.9 % Normal 11.6-14.6 [facility] Comment on above: Performed By: #### L 100.0500 ####[facility] [address] [place], [address] Hematocrit (Bld) [Volume fraction] 42.2 % Normal 40-54 [facility] Comment on above: Performed By: #### L 100.0500 ####[facility] [address] [place], [address] Hemoglobin (Bld) [Mass/Vol] 14.5 g/dL Normal 13.0-16.5 [facility] Comment on above: Performed By: #### L 100.0500 ####[facility] [address] [place], [address] MCH (RBC) [Entitic mass] 28.8 pg Normal 27.0-32.0 [facility] Comment on above: Performed By: #### L 100.0500 ####[facility] [address] [place], [address] MCHC (RBC) [Mass/Vol] 34.4 g/dL Normal 32-36 [facility] Comment on above: Performed By: #### L 100.0500 ####[facility] [address] [place], [address] MCV (RBC) [Entitic vol] 83.9 fL Normal 80-94 [facility] Comment on above: Performed By: #### L 100.0500 ####[facility] [address] [place], [address] Platelet mean volume (Bld) [Entitic vol] 9.8 fL Normal 6.2-12.0 [facility] Comment on above: Performed By: #### L 100.0500 ####[facility] [address] [place], [address] Platelets (Bld) [#/Vol] 163 10*3/uL Normal 150-450 [facility] Comment on above: Performed By: #### L 100.0500 ####[facility] [address] [place], [address] RBC (Bld) [#/Vol] 5.03 10*6/uL Normal 4.6-6.2 [facility] Comment on above: Performed By: #### L 100.0500 ####[facility] [address] [place], [address] RDW SD 39.7 fl Normal 35.1-43.9 [facility] Comment on above: Performed By: #### L 100.0500 ####[facility] [address] [place], [address] WBC (Bld) [#/Vol] 10.2 10*3/uL Normal 4.4-11.0 [facility] Comment on above: Performed By: #### L 100.0500 ####[facility] [address] [place], [address] Comprehensive Metabolic Prof ilon 12-15-2024 Albumin [Mass/Vol] 3.4 g/dL Low 3.5-5.0 [facility] Comment on above: Performed By: #### L 500.4050 ####[facility] [address] [place], [address] Albumin/Globulin [Mass ratio] 1.1 {ratio} Normal 0.9-2.4 [facility] Comment on above: Performed By: #### L 500.4050 ####[facility] [address] [place], [address] ALK PHOS 156 U/L High 40-129 [facility] Comment on above: Performed By: #### L 500.4050 ####[facility] [address] [place], [address] ALT [Catalytic activity/Vol] 227 U/L High <=46 [facility] Comment on above: Performed By: #### L 500.4050 ####[facility] [address] [place], [address] AST [Catalytic activity/Vol] 56 U/L High <=37 [facility] Comment on above: Performed By: #### L 500.4050 ####[facility] [address] [place], [address] Bilirubin [Mass/Vol] 5.85 mg/dL High 0.00-1.30 [facility] Comment on above: Performed By: #### L 500.4050 ####[facility] [address] [place], [address] BUN/CRE 10.4 RATIO Normal 10-20 [facility] Comment on above: Performed By: #### L 500.4050 ####[facility] [address] [place], [address] Calcium [Mass/Vol] 9.1 mg/dL Normal 7.6-11.0 [facility] Comment on above: Performed By: #### L 500.4050 ####[facility] [address] [place], [address] Chloride [Moles/Vol] 103 mmol/L Normal 98-108 [facility] Comment on above: Performed By: #### L 500.4050 ####[facility] [address] [place], [address] CO2 [Moles/Vol] 21.3 mmol/L Normal 21.0-32.0 [facility] Comment on above: Performed By: #### L 500.4050 ####[facility] [address] [place], [address] Creatinine [Mass/Vol] 0.99 mg/dL Normal 0.70-1.20 [facility] Comment on above: Result Comment: Icte stephany present, Results may be affected. Performed By: #### L 500.4050 ####[facility] [address] [place], [address] ECRCL 112.50 ml/min Normal 50-250 [facility] Comment on above: Performed By: #### L 500.4050 ####[facility] [address] [place], [address] GAP 13 Normal 5-15 [facility] Comment on above: Performed By: #### L 500.4050 ####[facility] [address] [place], [address] GFR/1.73 sq M.predicted among non-blacks MDRD (S/P/Bld) [Vol rate/Area] 98 mL/min/{1.73_m2} Normal >60 [facility] Comment on above: Result Comment: mL/m in/1.73m2 CKD-EPI Creatinine Equation (2020) Performed By: #### L 500.4050 ####[facility] [address] [place], [address] Globulin (S) [Mass/Vol] 3.1 g/dL Normal 2.2-4.2 [facility] Comment on above: Performed By: #### L 500.4050 ####[facility] [address] [place], [address] Glucose [Mass/Vol] 106 mg/dL High 70-99 [facility] Comment on above: Performed By: #### L 500.4050 ####[facility] [address] [place], [address] Potassium [Moles/Vol] 3.9 mmol/L Normal 3.3-5.1 [facility] Comment on above: Result Comment: Hemo lysis present, Results??could be affected.?? Performed By: #### L 500.4050 ####[facility] [address] [place], [address] Sodium [Moles/Vol] 137 mmol/L Normal 133-145 [facility] Comment on above: Performed By: #### L 500.4050 ####[facility] [address] [place], [place], [address] T PROT 6.5 g/dL Normal 5.9-8.4 [facility] Comment on above: Performed By: #### L 500.4050 ####[facility] [address] [place], [place], [address] Urea nitrogen [Mass/Vol] 10 mg/dL Normal 4-19 [facility] Comment on above: Performed By: #### L 500.4050 ####[facility] [address] [place], [place], [address] ERCP Biliary/Pancreason 11-28 ERCP Biliary/Pancreas Normal [facility] ERCP Reporton 12-15-2024 ERCP Report Normal [facility] Electrocardiogram reportOrde red By: [place] Lubin on 12-15-2024 EKG study [facility] [address] [place] [address] 12 Lead EKG 12/15/24 0448 MR#: [id number] Acct: [id number] Name: DIANE CONNORS Rep #:[id number] : 1985 39 From: [place] Lubin MD Attending Dr: Dr. Francesco Lui MD Status: ADM IN Ordering Dr: Gray López MD Date: Location: [facility] Sex: M C Admitted: 12/14/24 Test [...] When compared with ECG of 11-Dec-2024 12:55, MO interval has decreased Vent. rate has increased by 38 bpm QT has lengthened Confirmed by JOSE LUBIN MD ([id number]), website/blog editor CHAVA CASEY ([id number]) on 12/15/2024 8:22:34 AM Referred By: PRIMITIVO Confirmed By: JOSE LUBIN MD 12/15/24821 Date _ [place] Lubin MD CC: [employer]-Marli Arias; Dr. Gray López MD; Dr. Francesco Lui MD ~ Signed [facility] Work Phone: MR/POSTOP.ANEon 12-15-2024 MR/POSTOP.ANE Normal [facility] MR/[id number] 12-15-2024 MR/POSTOPAN2 Normal [facility] Serum or plasma albumin/glob ulin mass ratioOrdered By: Cruz Arciniega on 12-15-2024 Albumin/Globulin [Mass ratio] 1.1 {ratio} 0.9-2.4 [facility] Abdomen/Pelvis W IV Cont ONL Yon 12-14-2024 Abdomen/Pelvis W IV Cont ONLY Normal [facility] Absolute neutrophil countOrd ered By: Petar Barrera on 12-14-2024 Neutrophils (Bld) [#/Vol] 12.7 10*3/uL High 2.0-7.7 [facility] Anion gap in Serum or Plasma Ordered By: Petar Barrera on 12-14-2024 Anion gap [Moles/Vol] 10 mmol/L 02-11 [facility] BUN/creatinine ratioOrdered By: Petar Barrera on 12-14-2024 Urea nitrogen/Creatinine [Mass ratio] 11.9 mg/mg - [facility] Basic Metabolic Profile (BMP )on 12-14-2024 BUN/CRE 11.9 RATIO Normal 07-19 [facility] Comment on above: Performed By: #### L 500.3400, L503.6005, L501.2450, L500.2500 ####[facility] [address] [place], [address] ECRCL 110.26 ml/min Normal 50-250 [facility] Comment on above: Performed By: #### L 500.3400, L503.6005, L501.2450, L500.2500 ####[facility] [address] [place], [address] GAP 10 Normal 5-15 [facility] Comment on above: Performed By: #### L 500.3400, L503.6005, L501.2450, L500.2500 ####[facility] [address] [place], [address] GFR/1.73 sq M.predicted among non-blacks MDRD (S/P/Bld) [Vol rate/Area] 96 mL/min/{1.73_m2} Normal >60 [facility] Comment on above: Result Comment: mL/m in/1.73m2 CKD-EPI Creatinine Equation (2020) Performed By: #### L 500.3400, L503.6005, L501.2450, L500.2500 ####[facility] [address] [place], [address] Basophil percentageOrdered B y: Petar Barrera on 12-14-2024 Basophils/100 WBC (Bld) 0.6 % 0-1 [facility] Bilirubin Test strip Ql (U)O rdered By: Petar Barrera on 12-14-2024 Bilirubin Ql (U) 3 mg/dL High Negative [facility] Comment on above: COLOR OF URINE MAY A FFECT DIPSTICK RESULTS. Bilirubin directOrdered By: Petar Barrera on 12-14-2024 Bilirubin.direct [Mass/Vol] 3.43 mg/dL High 0.00-0.30 [facility] Comment on above: Performed By: #### L 500.3400, L503.6005, L501.2450, L500.2500 ####[facility] [address] [place], [address] Bilirubin, totalOrdered By: Petar Barrera on 12-14-2024 Bilirubin [Mass/Vol] 4.43 mg/dL High 0.00-1.30 [facility] Comment on above: Performed By: #### L 500.3400, L503.6005, L501.2450, L500.2500 ####[facility] [address] [place], [address] Blood cultureOrdered By: Sydney Barrera on 12-14-2024 Bacteria identified Cx Nom (Bld) Raoultella planticola Abnormal [facility] Bacteria identified Cx Nom (Bld) Streptococcus viridans group Abnormal [facility] Bacteria identified Cx Nom (Bld) GNR lactose website/blog editor Abnormal [facility] Blood manual differential co mment interpretation (narrative result)Ordered By: Petar Barrera on 12-14-2024 Manual differential comment Emanuel (Bld) [Interp] COMMENT [facility] Comment on above: LYMPHOPENIA. CBC W/Diff, Automatedon 11-28 SMEAR COMMENT COMMENT Normal [facility] Comment on above: Result Comment: LYMP HOPENIA. Performed By: #### L 100.0100 ####[facility] [address] [place], [place], [address] Carbon dioxide, total [Moles /volume] in Central venous bloodOrdered By: Petar Barrera on 12-14-2024 CO2 [Moles/Vol] 25.7 mmol/L Normal 21.0-32.0 [facility] Comment on above: Performed By: #### L 500.3400, L503.6005, L501.2450, L500.2500 ####[facility] [address] [place], [address] Chest PA and Lateralon 12-14 Chest PA and Lateral Normal [facility] Chloride assayOrdered By: Ann Barrera on 12-14-2024 Chloride [Moles/Vol] 103 mmol/L Normal 98-108 [facility] Comment on above: Performed By: #### L 500.3400, L503.6005, L501.2450, L500.2500 ####[facility] [address] [place], [address] Emergency Department Summary on 12-14-2024 Emergency Department Summary Normal [facility] Eosinophil percentageOrdered By: Petar Barrera on 12-14-2024 Eosinophils/100 WBC (Bld) 0.1 % 0-5 [facility] Epithelial cells.squamous LM Ql (Urine sed)Ordered By: Petar Barrera on 12-14-2024 Epithelial cells.squamous LM.HPF (Urine sed) [#/Area] 0 /[HPF] 0-5 [facility] Erythrocyte distribution wid th ratioOrdered By: Petar Barrera on 12-14-2024 Erythrocyte distribution width (RBC) [Ratio] 12.8 % 11.6-14.6 [facility] Erythrocyte distribution wid th standard deviationOrdered By: Petar Barrera on 12-14-2024 Erythrocyte distribution width (RBC) [Entitic vol] 40.8 fL 35.1-43.9 [facility] Estimation of creatinine alyson aranceOrdered By: Petar Barrera on 12-14-2024 Estimated Creatinine Clearance Calc 110.26 ml/min 50-250 [facility] GFR/1.73 sq M.predicted latrell g non-blacks MDRD (S/P/Bld) [Vol rate/Area]Ordered By: Petar Barrera on 12-14-2024 Estimated GFR (MDRD) Non-Af Amer 96 >60 [facility] Comment on above: mL/min/1.73m2 CKD-EP I Creatinine Equation (2020) Glucose Ql (U)Ordered By: yovana Barrera on 12-14-2024 Urine Glucose (UA) Normal mg/dl Normal [facility] H AND P Exam - Hospitaliston 12-14-2024 H&P Exam - Hospitalist Normal [facility] Hematocrit Auto (Bld) [Volum e fraction]Ordered By: Petar Barrera on 12-14-2024 Hematocrit (Bld) [Volume fraction] 46.1 % 40-54 [facility] Hemoglobin measurementOrdere d By: Petar Barrera on 12-14-2024 Hemoglobin (Bld) [Mass/Vol] 15.5 g/dL 13.0-16.5 [facility] Immature granulocytes/100 WB C Auto (Bld)Ordered By: Petar Barrera on 12-14-2024 Immature granulocytes/100 WBC (Bld) 0.900 % 0.0-0.9 [facility] Comment on above: IG% - Immature Granu locytes (promyelocytes, myelocytes and metamyelocytes) > 1% indicates that a LEFT SHIFT is Present. Influenza virus A and B and SARS-CoV-2 (COVID-19) and Respiratory syncytial virus RNAOrdered By: Petar Barrera on 12-14-2024 SARS-CoV-2 (COVID-19) RNA ROSSANA+probe Ql (Unsp spec) [facility] Ketones Test strip Ql (U)Ord ered By: Petar Barrera on 12-14-2024 Ketones Ql (U) Negative Negative [facility] Lactic acid measurementOrder ed By: Petar Barrera on 12-14-2024 Lactate [Moles/Vol] 1.1 mmol/L Normal 0.0-2.0 [facility] Comment on above: Order Comment: Y Performed By: #### L 500.3400, L503.6005, L501.2450, L500.2500 ####[facility] [address] [place], [place], [id number] Lipase measurementOrdered By : Petar Barrera on 12-14-2024 Lipase [Catalytic activity/Vol] 26 U/L Normal 13-75 [facility] Comment on above: Please note:LIPASE r evised reference range effective 23. New Lipase methodology. Expected to produce lower values than the previous assay method. NEW Reference Range: 13 - 75 U/L Result Comment: Plea se note:LIPASE revised reference range effective 23.New Lipase methodology. Expected to produce lower valuesthan the previous assay method.NEW Reference Range: 13 - 75 U/L Performed By: #### L 500.3400, L503.6005, L501.2450, L500.2500 ####[facility] [address] [place], [address] Liver Profileon 12-14-2024 ALK PHOS 149 U/L High 40-129 [facility] Comment on above: Performed By: #### L 500.3400, L503.6005, L501.2450, L500.2500 ####[facility] [address] [place], [address] T PROT 6.6 g/dL Normal 5.9-8.4 [facility] Comment on above: Performed By: #### L 500.3400, L503.6005, L501.2450, L500.2500 ####[facility] [address] [place], [address] Liver ProfileOrdered By: Sydney Barrera on 12-14-2024 AST [Catalytic activity/Vol] 124 U/L High <=37 [facility] Comment on above: Performed By: #### L 500.3400, L503.6005, L501.2450, L500.2500 ####[facility] [address] [place], [address] Lymphocytes Auto (Unsp spec) [#/Vol]Ordered By: Petar Barrera on 12-14-2024 Lymphocytes (Bld) [#/Vol] 0.45 10*3/uL Low 0.83-4.51 [facility] Lymphocytes/100 WBC Auto (Un sp spec)Ordered By: Petar Barrera on 12-14-2024 Lymphocytes/100 WBC (Bld) 3.2 % Low 19-41 [facility] M100.678on 12-14-2024 M100.678 Pending SARS-CoV-2 (COVID 19) Negative INFLUENZA A Negative INFLUENZA B Negative RSV PCR Negative Normal [facility] Comment on above: Performed By: #### M 100.678 ####[facility] [address] [place], [address] MCV (mean corpuscular volume ) determinationOrdered By: Petar Barrera on 12-14-2024 MCV (RBC) [Entitic vol] 87.1 fL 80-94 [facility] Manual differential comment Emaunel (Bld) [Interp]Ordered By: Petar Barrera on 12-14-2024 Differential Comment COMMENT [facility] Comment on above: LYMPHOPENIA. Mean corpuscular hemoglobin (MCH) determinationOrdered By: Petar Barrera on 12-14-2024 MCH (RBC) [Entitic mass] 29.3 pg 27.0-32.0 [facility] Mean corpuscular hemoglobin concentration (MCHC) determinationOrdered By: Petar Barrera on 12-14-2024 MCHC (RBC) [Mass/Vol] 33.6 g/dL 32-36 [facility] Mean platelet volume determi nationOrdered By: Petar Barrera on 12-14-2024 Platelet mean volume (Bld) [Entitic vol] 9.4 fL 6.2-12.0 [facility] Microscopic analysis of urin e for red blood cells (RBC)Ordered By: Petar Barrera on 12-14-2024 Microscopic analysis of urine for red blood cells (RBC) 0-5 SEEN /hpf 0-5 [facility] Urine RBC 0-5 SEEN /hpf 0-5 [facility] Monocyte percentageOrdered B y: Petar Barrera on 12-14-2024 Monocytes/100 WBC (Bld) 4.7 % 0-10 [facility] Mucus LM Ql (Urine sed)Order ed By: Petar Barrera on 12-14-2024 Mucus Ql (Urine sed) 1+ /hpf [facility] Neutrophil percentageOrdered By: Petar Barrera on 12-14-2024 Neutrophils/100 WBC (Bld) 90.5 % High 47-70 [facility] Nitrite Test strip Ql (U)Ord ered By: Petar Barrera on 12-14-2024 Nitrite Ql (U) Negative Negative [facility] Nucleated red blood cell per centageOrdered By: Petar Barrera on 12-14-2024 Nucleated RBC/100 WBC (Bld) [Ratio] 0 % 0-5 [facility] Platelet countOrdered By: Ann Barrera on 12-14-2024 Platelets (Bld) [#/Vol] 156 10*3/uL 150-450 [facility] Potassium measurement (mass/ volume)Ordered By: Petar Barrera on 12-14-2024 Potassium [Moles/Vol] 3.7 mmol/L Normal 3.3-5.1 [facility] Comment on above: Performed By: #### L 500.3400, L503.6005, L501.2450, L500.2500 ####[facility] [address] [place], [address] Protein Test strip Ql (U)Ord ered By: Petar Barrera on 12-14-2024 Protein Ql (U) 30 mg/dl High Negative [facility] RBC Auto (Bld) [#/Vol]Ordere d By: Petar Barrera on 12-14-2024 RBC (Bld) [#/Vol] 5.29 10*6/uL 4.6-6.2 [facility] Serum creatinine measurement (mass/volume)Ordered By: Petar Barrera on 12-14-2024 Creatinine [Mass/Vol] 1.01 mg/dL Normal 0.70-1.20 [facility] Comment on above: Performed By: #### L 500.3400, L503.6005, L501.2450, L500.2500 ####[facility] [address] [place], [address] Serum globulin measurementOr dered By: Petar Barrera on 12-14-2024 Globulin (S) [Mass/Vol] 2.9 g/dL Normal 2.2-4.2 [facility] Comment on above: Performed By: #### L 500.3400, L503.6005, L501.2450, L500.2500 ####[facility] [address] [place], [address] Serum glucose measurement (m ass/volume)Ordered By: Petar Barrera on 12-14-2024 Glucose [Mass/Vol] 123 mg/dL High 70-99 [facility] Comment on above: Performed By: #### L 500.3400, L503.6005, L501.2450, L500.2500 ####[facility] [address] [place], [address] Serum or plasma alanine mays otransferase (ALT) measurementOrdered By: Petar Barrera on 12-14-2024 ALT [Catalytic activity/Vol] 354 U/L High <=46 [facility] Comment on above: Performed By: #### L 500.3400, L503.6005, L501.2450, L500.2500 ####[facility] [address] [place], [address] Serum or plasma albumin marquise urement (mass/volume)Ordered By: Petar Barrera on 12-14-2024 Albumin [Mass/Vol] 3.7 g/dL Normal 3.5-5.0 [facility] Comment on above: Performed By: #### L 500.3400, L503.6005, L501.2450, L500.2500 ####[facility] [address] [place], [address] Serum or plasma alkaline daniel sphatase measurementOrdered By: Petar Barrera on 12-14-2024 ALP [Catalytic activity/Vol] 149 U/L High 40-129 [facility] Serum or plasma calcium marquise urement (mass/volume)Ordered By: Petar Barrera on 12-14-2024 Calcium [Mass/Vol] 9.5 mg/dL Normal 7.6-11.0 [facility] Comment on above: Performed By: #### L 500.3400, L503.6005, L501.2450, L500.2500 ####[facility] [address] [place], [address] Serum or plasma urea nitroge n measurement (mass/volume)Ordered By: Petar Barrera on 12-14-2024 Urea nitrogen [Mass/Vol] 12 mg/dL Normal 4-19 [facility] Comment on above: Performed By: #### L 500.3400, L503.6005, L501.2450, L500.2500 ####[facility] [address] [place], [address] Sodium levelOrdered By: Sara Barrera on 12-14-2024 Sodium [Moles/Vol] 138 mmol/L Normal 133-145 [facility] Comment on above: Performed By: #### L 500.3400, L503.6005, L501.2450, L500.2500 ####[facility] [address] [place], [address] Squamous epithelial cells de tection in urine sediment by light microscopyOrdered By: Petar Barrera on 12-14-2024 Epithelial cells.squamous LM Ql (Urine sed) 0 SEEN /hpf 0-5 [facility] Total proteinOrdered By: Sydney Barrera on 12-14-2024 Protein [Mass/Vol] 6.6 g/dL 5.9-8.4 [facility] Urinalysis, Completeon 12-14 Mucus Ql (Urine sed) 1+ /hpf Normal [facility] Comment on above: Order Comment: CLEAN CATCH Performed By: #### L 400.0001 ####[facility] [address] [place], [address] BACTERIA 2+ /hpf Normal None Seen [facility] Comment on above: Order Comment: CLEAN CATCH Performed By: #### L 400.0001 ####[facility] [address] [place], [address] RBC 0-5 SEEN Normal 0-5 [facility] Comment on above: Order Comment: CLEAN CATCH Performed By: #### L 400.0001 ####[facility] [address] [place], [address] WBC 0-5 SEEN Normal 0-5 [facility] Comment on above: Order Comment: CLEAN CATCH Performed By: #### L 400.0001 ####[facility] [address] [place], [place], [id number] EPI,SQUAMOUS 0 SEEN Normal 0-5 [facility] Comment on above: Order Comment: CLEAN CATCH Performed By: #### L 400.0001 ####[facility] [address] [place], [address] Urine blood detectionOrdered By: Petar Barrera on 12-14-2024 Urine Occult Blood 10 /ul High Negative [facility] Urine clarityOrdered By: Sydney Barrera on 12-14-2024 Clarity (U) Clear Clear [facility] Urine color determinationOrd ered By: Petar Barrera on 12-14-2024 Color (U) Yellow Yellow [facility] Urine glucose detectionOrder ed By: Petar Barrera on 12-14-2024 Glucose Ql (U) Normal mg/dl Normal [facility] Urine leukocyte esterase det ection by dipstickOrdered By: Petar Barrera on 12-14-2024 Leukocyte esterase Test strip Ql (U) 25 /ul High Negative [facility] Urine pHOrdered By: Petar fuchs on 12-14-2024 pH (U) 7.0 [pH] 5.0 - 8.0 [facility] Urine sediment bacteria coun t by microscopy (number/high power field)Ordered By: Petar Barrera on 12-14-2024 Bacteria LM.HPF (Urine sed) [#/Area] 2 /[HPF] None Seen [facility] Urine specific gravity measu rementOrdered By: Petar Barrera on 12-14-2024 Specific gravity (U) [Rel density] 1.005 1.002-1.030 [facility] Urine urobilinogen measureme ntOrdered By: Petar Barrera on 12-14-2024 Urobilinogen Ql (U) 1 mg/dl High Normal [facility] Urobilinogen Ql (U)Ordered B y: Petar Barrera on 12-14-2024 Urobilinogen (U) [Mass/Vol] 1 mg/dL High Normal [facility] White blood cell (WBC) count Ordered By: Petar Barrera on 12-14-2024 WBC (Bld) [#/Vol] 14.0 10*3/uL High 4.4-11.0 [facility] White blood cell countOrdere d By: Petar Barrera on 12-14-2024 Urine WBC 0-5 SEEN /hpf 0-5 [facility] White blood cell count 0-5 SEEN /hpf 0-5 [facility] 12 Lead EKGon 12-11-2024 12 Lead EKG Normal [facility] ERCP Biliary/Pancreason - ERCP Biliary/Pancreas Normal [facility] ERCP Reporton 12-11-2024 ERCP Report Normal [facility] MR/POSTOP.ANEon 12-11-2024 MR/POSTOP.ANE Normal [facility] MR/XJFBPAHV4ss 12-11-2024 MR/POSTOPAN2 Normal [facility] Special Stain Group IIon Special Stain Group II Normal [facility] Comment on above: Performed By: #### P SSII ####[facility] [address] [place], [place], [address] Carbohydrate AG 19-9on 09-15 CA 19-9 63 U/mL High 0-35 [facility] Comment on above: Order Comment: Test( s) 779273-Hddxzk, Serum or Plasmawas developed and its performance characteristicsdetermined by [employer]. It has not been cleared or approvedby the Food and Drug Administration.N Result Comment: [employer] Electrochemiluminescence Immunoassay(ECLIA)Values obtained with different assay methods or kits cannotbe used interchangeably. Results cannot be interpreted asabsolute evidence of the presence or absence of malignantdisease. Performed By: #### L 3100.5020, L300.3900, L3100.3425, L3100.5450, L500.4100, L500.4050, L3890.6005, L506.1000, L3300.0100, L503.6030, L3000.0375, L503.6550, L501.5101, L3400.0700, L501.4700, L3890.6200, L501.6710, L501.9520 ####[facility] [address] [place], [place], [id number] Ceruloplasminon 09-15-2024 CERULOPLASMIN 46.2 mg/dL High 16.0-31.0 [facility] Comment on above: Order Comment: Test( s) 184352-Dobktt, Serum or Plasmawas developed and its performance characteristicsdetermined by [employer]. It has not been cleared or approvedby the Food and Drug Administration.N Performed By: #### L 3100.5020, L300.3900, L3100.3425, L3100.5450, L500.4100, L500.4050, L3890.6005, L506.1000, L3300.0100, L503.6030, L3000.0375, L503.6550, L501.5101, L3400.0700, L501.4700, L3890.6200, L501.6710, L501.9520 ####[facility] [address] [place], [place], [address] Copper, Serum or Plasmaon COPPER, SERUM 185 ug/dL High 69-132 [facility] Comment on above: Order Comment: Test( s) 434677-Wdofmp, Serum or Plasmawas developed and its performance characteristicsdetermined by [email or web address]. It has not been cleared or approvedby the Food and Drug Administration.N Result Comment: Dete ction Limit = 5Performed at: [facility] [email or web address] [id number] Director: Raj Dick PhD, Phone: [phone] at: [facility] [email or web address] [id number] Director: Kelly Jansen MD, Phone: [phone] Performed By: #### L 3100.5020, L300.3900, L3100.3425, L3100.5450, L500.4100, L500.4050, L3890.6005, L506.1000, L3300.0100, L503.6030, L3000.0375, L503.6550, L501.5101, L3400.0700, L501.4700, L3890.6200, L501.6710, L501.9520 ####[facility] [address] [place], [place], [id number] Hepatitis Panel Acuteon 12- COMMENT Comment Normal . [facility] Comment on above: Order Comment: Test( s) 068102-Zmpupf, Serum or Plasmawas developed and its performance characteristicsdetermined by [employer]. It has not been cleared or approvedby the Food and Drug Administration.N Result Comment: Not infected with HCV unless early or acute infection issuspected (which may be delayed in an immunocompromisedindividual), or other evidence exists to indicate HCVinfection. Performed By: #### L 3100.5020, L300.3900, L3100.3425, L3100.5450, L500.4100, L500.4050, L3890.6005, L506.1000, L3300.0100, L503.6030, L3000.0375, L503.6550, L501.5101, L3400.0700, L501.4700, L3890.6200, L501.6710, L501.9520 ####[facility] [address] [place], [place], [address] HEP B CORE,IgM Negative Normal Negative [facility] Comment on above: Order Comment: Test( s) 531531-Zlvffw, Serum or Plasmawas developed and its performance characteristicsdetermined by [employer]. It has not been cleared or approvedby the Food and Drug Administration.N Performed By: #### L 3100.5020, L300.3900, L3100.3425, L3100.5450, L500.4100, L500.4050, L3890.6005, L506.1000, L3300.0100, L503.6030, L3000.0375, L503.6550, L501.5101, L3400.0700, L501.4700, L3890.6200, L501.6710, L501.9520 ####[facility] [address] [place], [place], [address] HEP B SURF AG Negative Normal Negative [facility] Comment on above: Order Comment: Test( s) 035781-Spegqg, Serum or Plasmawas developed and its performance characteristicsdetermined by [employer]. It has not been cleared or approvedby the Food and Drug Administration.N Performed By: #### L 3100.5020, L300.3900, L3100.3425, L3100.5450, L500.4100, L500.4050, L3890.6005, L506.1000, L3300.0100, L503.6030, L3000.0375, L503.6550, L501.5101, L3400.0700, L501.4700, L3890.6200, L501.6710, L501.9520 ####[facility] [address] [place], [address] HEP C VIRUS AB Non-Reactive Normal Non Reactive [facility] Comment on above: Order Comment: Test( s) 143855-Lzczuz, Serum or Plasmawas developed and its performance characteristicsdetermined by [employer]. It has not been cleared or approvedby the Food and Drug Administration.N Performed By: #### L 3100.5020, L300.3900, L3100.3425, L3100.5450, L500.4100, L500.4050, L3890.6005, L506.1000, L3300.0100, L503.6030, L3000.0375, L503.6550, L501.5101, L3400.0700, L501.4700, L3890.6200, L501.6710, L501.9520 ####[facility] [address] [facility] [address] [place], [address] HEPATITIS A-IgM Negative Normal Negative [facility] Comment on above: Order Comment: Test( s) 185399-Dzdykw, Serum or Plasmawas developed and its performance characteristicsdetermined by [employer]. It has not been cleared or approvedby the Food and Drug Administration.N Result Comment: A ne gative anti-HAV IgM result suggests no recent orcurrent HAV infection. Performed By: #### L 3100.5020, L300.3900, L3100.3425, L3100.5450, L500.4100, L500.4050, L3890.6005, L506.1000, L3300.0100, L503.6030, L3000.0375, L503.6550, L501.5101, L3400.0700, L501.4700, L3890.6200, L501.6710, L501.9520 ####[facility] [address] [place], [address] AYDEN + Protein Elect, Serumon 09-15-2024 Albumin [Mass/Vol] 3.3 g/dL Normal 2.9-4.4 [facility] Comment on above: Order Comment: Test( s) 025578-Vjfnyw, Serum or Plasmawas developed and its performance characteristicsdetermined by [employer]. It has not been cleared or approvedby the Food and Drug Administration.N Performed By: #### L 3100.5020, L300.3900, L3100.3425, L3100.5450, L500.4100, L500.4050, L3890.6005, L506.1000, L3300.0100, L503.6030, L3000.0375, L503.6550, L501.5101, L3400.0700, L501.4700, L3890.6200, L501.6710, L501.9520 ####[facility] [address] [place], [address] Albumin/Globulin [Mass ratio] 1.1 {ratio} Normal 0.7-1.7 [facility] Comment on above: Order Comment: Test( s) 643583-Dwftck, Serum or Plasmawas developed and its performance characteristicsdetermined by [employer]. It has not been cleared or approvedby the Food and Drug Administration.N Performed By: #### L 3100.5020, L300.3900, L3100.3425, L3100.5450, L500.4100, L500.4050, L3890.6005, L506.1000, L3300.0100, L503.6030, L3000.0375, L503.6550, L501.5101, L3400.0700, L501.4700, L3890.6200, L501.6710, L501.9520 ####[facility] [address] [place], [address] HKILZ-9-VTKN 0.3 g/dL Normal 0.0-0.4 [facility] Comment on above: Order Comment: Test( s) 229641-Ksjxyy, Serum or Plasmawas developed and its performance characteristicsdetermined by [employer]. It has not been cleared or approvedby the Food and Drug Administration.N Performed By: #### L 3100.5020, L300.3900, L3100.3425, L3100.5450, L500.4100, L500.4050, L3890.6005, L506.1000, L3300.0100, L503.6030, L3000.0375, L503.6550, L501.5101, L3400.0700, L501.4700, L3890.6200, L501.6710, L501.9520 ####[facility] [address] [facility], [address] YLHFW-3-EKAA 0.7 g/dL Normal 0.4-1.0 [facility] Comment on above: Order Comment: Test( s) 066875-Eieznv, Serum or Plasmawas developed and its performance characteristicsdetermined by [employer]. It has not been cleared or approvedby the Food and Drug Administration.N Performed By: #### L 3100.5020, L300.3900, L3100.3425, L3100.5450, L500.4100, L500.4050, L3890.6005, L506.1000, L3300.0100, L503.6030, L3000.0375, L503.6550, L501.5101, L3400.0700, L501.4700, L3890.6200, L501.6710, L501.9520 ####[facility] [address] [facility], [address] BETA GLOBULIN 1.4 g/dL High 0.7-1.3 [facility] Comment on above: Order Comment: Test( s) 690456-Lamhno, Serum or Plasmawas developed and its performance characteristicsdetermined by [facility]. It has not been cleared or approvedby the Food and Drug Administration.N Performed By: #### L 3100.5020, L300.3900, L3100.3425, L3100.5450, L500.4100, L500.4050, L3890.6005, L506.1000, L3300.0100, L503.6030, L3000.0375, L503.6550, L501.5101, L3400.0700, L501.4700, L3890.6200, L501.6710, L501.9520 ####[facility] [address] [facility] [place], [address] GAMMA GLOBULIN 0.8 g/dL Normal 0.4-1.8 [facility] Comment on above: Order Comment: Test( s) 368742-Rllqfg, Serum or Plasmawas developed and its performance characteristicsdetermined by [employer]. It has not been cleared or approvedby the Food and Drug Administration.N Performed By: #### L 3100.5020, L300.3900, L3100.3425, L3100.5450, L500.4100, L500.4050, L3890.6005, L506.1000, L3300.0100, L503.6030, L3000.0375, L503.6550, L501.5101, L3400.0700, L501.4700, L3890.6200, L501.6710, L501.9520 ####[facility] [address] [facility] [place], [address] Globulin (S) [Mass/Vol] 3.2 g/dL Normal 2.2-3.9 [facility] Comment on above: Order Comment: Test( s) 912593-Dkcigd, Serum or Plasmawas developed and its performance characteristicsdetermined by [employer]. It has not been cleared or approvedby the Food and Drug Administration.N Performed By: #### L 3100.5020, L300.3900, L3100.3425, L3100.5450, L500.4100, L500.4050, L3890.6005, L506.1000, L3300.0100, L503.6030, L3000.0375, L503.6550, L501.5101, L3400.0700, L501.4700, L3890.6200, L501.6710, L501.9520 ####[facility] [address] [place], [address] AYDEN RESULT,S Comment Normal . [facility] Comment on above: Order Comment: Test( s) 122867-Lplgjd, Serum or Plasmawas developed and its performance characteristicsdetermined by [employer]. It has not been cleared or approvedby the Food and Drug Administration.N Result Comment: No m onoclonality detected. Performed By: #### L 3100.5020, L300.3900, L3100.3425, L3100.5450, L500.4100, L500.4050, L3890.6005, L506.1000, L3300.0100, L503.6030, L3000.0375, L503.6550, L501.5101, L3400.0700, L501.4700, L3890.6200, L501.6710, L501.9520 ####[facility] [address] [place], [address] IMMUNOGLOB A QN 150 mg/dL Normal 90-386 [facility] Comment on above: Order Comment: Test( s) [id number], Serum or Plasmawas developed and its performance characteristicsdetermined by [facility]. It has not been cleared or approvedby the Food and Drug Administration.N Performed By: #### L 3100.5020, L300.3900, L3100.3425, L3100.5450, L500.4100, L500.4050, L3890.6005, L506.1000, L3300.0100, L503.6030, L3000.0375, L503.6550, L501.5101, L3400.0700, L501.4700, L3890.6200, L501.6710, L501.9520 ####[facility] [address] [facility]. [place], [place], [phone] IMMUNOGLOB G QN 904 mg/dL Normal 603-1613 [facility] Comment on above: Order Comment: Test( s) 985705-Mqffnb, Serum or Plasmawas developed and its performance characteristicsdetermined by [employer]. It has not been cleared or approvedby the Food and Drug Administration.N Performed By: #### L 3100.5020, L300.3900, L3100.3425, L3100.5450, L500.4100, L500.4050, L3890.6005, L506.1000, L3300.0100, L503.6030, L3000.0375, L503.6550, L501.5101, L3400.0700, L501.4700, L3890.6200, L501.6710, L501.9520 ####[facility] [address] [facility]. [place], [place], [phone] IMMUNOGLOB M QN 48 mg/dL Normal 20-172 [facility] Comment on above: Order Comment: Test( s) 147069-Flcfvh, Serum or Plasmawas developed and its performance characteristicsdetermined by [employer]. It has not been cleared or approvedby the Food and Drug Administration.N Performed By: #### L 3100.5020, L300.3900, L3100.3425, L3100.5450, L500.4100, L500.4050, L3890.6005, L506.1000, L3300.0100, L503.6030, L3000.0375, L503.6550, L501.5101, L3400.0700, L501.4700, L3890.6200, L501.6710, L501.9520 ####[facility] [address] [place], [place], [phone] M-Mychal Not Observed Normal Not Observed [facility] Comment on above: Order Comment: Test( s) 301321-Gvvidg, Serum or Plasmawas developed and its performance characteristicsdetermined by [employer]. It has not been cleared or approvedby the Food and Drug Administration.N Performed By: #### L 3100.5020, L300.3900, L3100.3425, L3100.5450, L500.4100, L500.4050, L3890.6005, L506.1000, L3300.0100, L503.6030, L3000.0375, L503.6550, L501.5101, L3400.0700, L501.4700, L3890.6200, L501.6710, L501.9520 ####[facility] [address] [place], [address] NOTE: Comment Normal . [facility] Comment on above: Order Comment: Test( s) [id number]-Czkfvq, Serum or Plasmawas developed and its performance characteristicsdetermined by [employer]. It has not been cleared or approvedby the Food and Drug Administration.N Result Comment: Prot ein electrophoresis scan will follow via computer,mail, or chief nurse anesthetist delivery. Performed By: #### L 3100.5020, L300.3900, L3100.3425, L3100.5450, L500.4100, L500.4050, L3890.6005, L506.1000, L3300.0100, L503.6030, L3000.0375, L503.6550, L501.5101, L3400.0700, L501.4700, L3890.6200, L501.6710, L501.9520 ####[facility] [address] [place], [place], [phone] Protein [Mass/Vol] 6.5 g/dL Normal 6.0-8.5 [facility] Comment on above: Order Comment: Test( s) 110749-Zakiyc, Serum or Plasmawas developed and its performance characteristicsdetermined by [facility]. It has not been cleared or approvedby the Food and Drug Administration.N Performed By: #### L 3100.5020, L300.3900, L3100.3425, L3100.5450, L500.4100, L500.4050, L3890.6005, L506.1000, L3300.0100, L503.6030, L3000.0375, L503.6550, L501.5101, L3400.0700, L501.4700, L3890.6200, L501.6710, L501.9520 ####[facility] [address] [place], [place], [phone] L501.5101on 09-15-2024 GGTP 69 IU/L Abnormal 0-65 [facility] Comment on above: Order Comment: Test( s) [id number]-Taizas, Serum or Plasmawas developed and its performance characteristicsdetermined by [facility]. It has not been cleared or approvedby the Food and Drug Administration.N Performed By: #### L 3100.5020, L300.3900, L3100.3425, L3100.5450, L500.4100, L500.4050, L3890.6005, L506.1000, L3300.0100, L503.6030, L3000.0375, L503.6550, L501.5101, L3400.0700, L501.4700, L3890.6200, L501.6710, L501.9520 ####[facility] [address] [place], [place], [phone] AFP, Tumor Markeron 09-14-20 24 AFP TUMOR ADRIANA 3.2 ng/mL Normal 0.0-6.9 [facility] Comment on above: Order Comment: [...] interpretable in females. _ TESTING PERFORMED AT [facility]. ORIGINAL REPORT ON FILE IN LAB CONTAINS ADDITIONAL TEST SITE INFORMATION. Performed By: #### L 504.2610, L3200.1100, L3300.0700, L3300.1200, L3200.0500 ####[facility] [address] [place], [address] QUIQUE w/ Reflex Mult Confirmon 09-14-2024 QUIQUE,DIRECT Negative Normal Negative [facility] Comment on above: Result Comment: Perf ormed at: [address] [id number] Director: Raj Dick PhD, Phone: [phone] Performed By: #### L 3100.5020, L300.3900, L3100.3425, L3100.5450, L500.4100, L500.4050, L3890.6005, L506.1000, L3300.0100, L503.6030, L3000.0375, L503.6550, L501.5101, L3400.0700, L501.4700, L3890.6200, L501.6710, L501.9520 ####[facility] [address] [place], [place], [phone] ANCAon 09-14-2024 Atypical pANCA <1:20 Normal Neg:<1:20 [facility] Comment on above: Order Comment: NN Result Comment: Note : Specimen is icteric.The atypical pANCA pattern has been observed in asignificant percentage of patients with ulcerative colitis,primary sclerosing cholangitis and autoimmune hepatitis. Performed By: #### L 504.2610, L3200.1100, L3300.0700, L3300.1200, L3200.0500 ####[facility] [address] [place], [address] Perinuclear Ab. <1:20 Normal Neg:<1:20 [facility] Comment on above: Order Comment: NN Result Comment: Note : Specimen is icteric.The presence of positive fluorescence exhibiting P-ANCA orC-ANCA patterns alone is not specific for the diagnosis ofWegener's Granulomatosis (WG) or microscopic polyangiitis.Decisions about treatment should not be based solely onANCA IFA results. The International ANCA Group Consensusrecommends follow up testing of positive sera with both MO-3 and MPO-ANCA enzyme immunoassays. As many as 5% serumsamples are positive only by EIA. Ref. AM J Clin Chicsr4284;111:507-513. Performed By: #### L 504.2610, L3200.1100, L3300.0700, L3300.1200, L3200.0500 ####[facility] [address] [place], [place], [phone] HIV - WCHon 09-14-2024 HIV Non-Reactive Normal Nonreactive [facility] Comment on above: Performed By: #### L 3100.5020, L300.3900, L3100.3425, L3100.5450, L500.4100, L500.4050, L3890.6005, L506.1000, L3300.0100, L503.6030, L3000.0375, L503.6550, L501.5101, L3400.0700, L501.4700, L3890.6200, L501.6710, L501.9520 ####[facility] [address] [place], [address] Hepatitis B Surface Antibody on 09-14-2024 HEP B Surf Ab Non-Reactive Normal [facility] Comment on above: Result Comment: Non Reactive: Inconsistent with immunity less than <10 mIU/mL Reactive: Consistent with immunity greater than or equal to 10 mIU/mL Performed By: #### L 3100.5020, L300.3900, L3100.3425, L3100.5450, L500.4100, L500.4050, L3890.6005, L506.1000, L3300.0100, L503.6030, L3000.0375, L503.6550, L501.5101, L3400.0700, L501.4700, L3890.6200, L501.6710, L501.9520 ####[facility] [address] [place], [address] IgG Subclasseson 09-14-2024 IgG, SUBCLASS 1 386 mg/dL Normal 248-810 [facility] Comment on above: Order Comment: NN Performed By: #### L 504.2610, L3200.1100, L3300.0700, L3300.1200, L3200.0500 ####[facility] [address] [place], [address] IgG, SUBCLASS 2 276 mg/dL Normal 130-555 [facility] Comment on above: Order Comment: NN Performed By: #### L 504.2610, L3200.1100, L3300.0700, L3300.1200, L3200.0500 ####[facility] [address] [place], [address] IgG, SUBCLASS 3 40 mg/dL Normal 15-102 [facility] Comment on above: Order Comment: NN Performed By: #### L 504.2610, L3200.1100, L3300.0700, L3300.1200, L3200.0500 ####[facility] [address] [place], [address] IgG, SUBCLASS 4 89 mg/dL Normal 2-96 [facility] Comment on above: Order Comment: NN Performed By: #### L 504.2610, L3200.1100, L3300.0700, L3300.1200, L3200.0500 ####[facility] [address] [place], [address] Immunoglobulins G/A/M/Brown IMMUNOGLOB A QN 140 mg/dL Normal 90-386 [facility] Comment on above: Order Comment: NN Performed By: #### L 504.2610, L3200.1100, L3300.0700, L3300.1200, L3200.0500 ####[facility] [address] [place], [address] IMMUNOGLOB E QN 40 IU/mL Normal 6-495 [facility] Comment on above: Order Comment: NN Performed By: #### L 504.2610, L3200.1100, L3300.0700, L3300.1200, L3200.0500 ####[facility] [address] [place], [address] IMMUNOGLOB M QN 42 mg/dL Normal 20-172 [facility] Comment on above: Order Comment: NN Performed By: #### L 504.2610, L3200.1100, L3300.0700, L3300.1200, L3200.0500 ####[facility] [address] [place], [address] Vitamin D,25 Hydroxyon 09-14 Vitamin D 25-OH 52.6 ng/mL Normal [facility] Comment on above: Result Comment: Ruth Ann min D 25(OH) Status Range Deficiency <20 ng/mL (50nmol/L) Insufficiency 20 - 30 ng/mL (50 - 75 nmol/L) Sufficiency 30 - 100 ng/mL (75 - 250 nmol/L) Toxicity >100 ng/mL (>250 nmol/L) Performed By: #### L 3100.5020, L300.3900, L3100.3425, L3100.5450, L500.4100, L500.4050, L3890.6005, L506.1000, L3300.0100, L503.6030, L3000.0375, L503.6550, L501.5101, L3400.0700, L501.4700, L3890.6200, L501.6710, L501.9520 ####[facility] [address] [place], [address] 57-AS-Clqsdbw DOrdered By: Sarah Lui on 09-11-2024 Vitamin D 25-Hydroxy 52.6 ng/mL [facility] Comment on above: Vitamin D 25(OH) Sta tus Range Deficiency <20 ng/mL (50nmol/L) Insufficiency 20 - 30 ng/mL (50 - 75 nmol/L) Sufficiency 30 - 100 ng/mL (75 - 250 nmol/L) Toxicity >100 ng/mL (>250 nmol/L) QUIQUE serumOrdered By: Francesco Lui on 09-11-2024 Anti-Nuclear Antibody Screen Negative Negative [facility] Comment on above: Performed at: [address] [id number] Director: Raj Dick PhD, Phone: [phone] Addendum DocumentOrdered By: Francesco Lui on 09-11-2024 Serum Immunofixation Comments Comment . [facility] Comment on above: Protein electrophore sis scan will follow via computer,mail, or chief nurse anesthetist delivery. Albumin Elph [Mass/Vol]Order ed By: Francesco Lui on 09-11-2024 Albumin [Mass/Vol] 3.3 g/dL 2.9-4.4 [facility] Albumin to globulin ratioOrd ered By: Francesco Lui on 09-11-2024 Albumin/Globulin [Mass ratio] 0.8 {ratio} Low 0.9-2.4 [facility] Alpha 1 globulin Elph [Mass/ Vol]Ordered By: Francesco Lui on 09-11-2024 Agjgx-4-Xuujqvjjs (AYDEN) 0.3 g/dL 0.0-0.4 [facility] Egljh-6-Ovtpbvswp (AYDEN) 0.7 g/dL 0.4-1.0 [facility] Beta globulin Elph [Mass/Vol ]Ordered By: Francesco Lui on 09-11-2024 Beta-Globulins (AYDEN) 1.4 g/dL High 0.7-1.3 [facility] Bilirubin directOrdered By: Francesco Lui on 09-11-2024 Bilirubin.direct [Mass/Vol] 11.21 mg/dL High 0.00-0.30 [facility] Bilirubin, Directon 09-11-20 Bilirubin.direct [Mass/Vol] 11.21 mg/dL High 0.00-0.30 [facility] Comment on above: Performed By: #### L 3100.5020, L300.3900, L3100.3425, L3100.5450, L500.4100, L500.4050, L3890.6005, L506.1000, L3300.0100, L503.6030, L3000.0375, L503.6550, L501.5101, L3400.0700, L501.4700, L3890.6200, L501.6710, L501.9520 ####[facility] [address] [place], [place], [phone] Bilirubin, totalOrdered By: Francesco Lui on 09-11-2024 Bilirubin [Mass/Vol] 14.00 mg/dL High 0.20-1.00 [facility] Comment on above: For patients on eltr ombopag therapy, use of Dimension [place] TBIL is not recommended. Blood urea nitrogen (BUN)/cr eatinine ratioOrdered By: Francesco Lui on 09-11-2024 Urea nitrogen/Creatinine [Mass ratio] 13.9 mg/mg 10-20 [facility] C-reactive protein measureme nt by high sensitivity methodOrdered By: Francesco Lui on 09-11-2024 C-Reactive Protein Extended Range < 2.90 mg/L 0.0-3.0 [facility] Comment on above: C-Reactive Protein ( CRP) provides useful information for thediagnosis, therapy and monitoring of inflammatory processesand associated diseases. For the evaluation of Relative Riskfor Cardiovascular Disease, a High Sensitivity CRP (HSCRP)should be ordered. CA 19-9 agOrdered By: Flori Lui on 09-11-2024 CA 19-9 Antigen 63 U/mL High 0-35 [facility] Comment on above: [employer] El ectrochemiluminescence Immunoassay(ECLIA)Values obtained with different assay methods or kits cannotbe used interchangeably. Results cannot be interpreted asabsolute evidence of the presence or absence of malignantdisease. CRPon 09-11-2024 C-REACTIVE PROT < 2.90 Normal 0.0-3.0 [facility] Comment on above: Result Comment: C-Re active Protein (CRP) provides useful information for thediagnosis, therapy and monitoring of inflammatory processesand associated diseases. For the evaluation of Relative Riskfor Cardiovascular Disease, a High Sensitivity CRP (HSCRP)should be ordered. Performed By: #### L 3100.5020, L300.3900, L3100.3425, L3100.5450, L500.4100, L500.4050, L3890.6005, L506.1000, L3300.0100, L503.6030, L3000.0375, L503.6550, L501.5101, L3400.0700, L501.4700, L3890.6200, L501.6710, L501.9520 ####[facility] [address] [place], [place], [phone] Carbon dioxide measurementOr dered By: Francesco Lui on 09-11-2024 CO2 [Moles/Vol] 25.0 mmol/L 21.0-32.0 [facility] Centromere B antibody assayO rdered By: Francesco Lui on 12-13-2024 Centromere B Antibody Not Reportable [facility] CeruloplasminOrdered By: Mendoza jeffreyted Lui on 09-11-2024 Ceruloplasmin 46.2 mg/dL High 16.0-31.0 [facility] Chloride measurementOrdered By: Francesco Lui on 09-11-2024 Chloride [Moles/Vol] 105 mmol/L 98-107 [facility] Comprehensive Metabolic Prof ilon 09-11-2024 Albumin [Mass/Vol] 3.2 g/dL Normal 3.2-5.0 [facility] Comment on above: Performed By: #### L 3100.5020, L300.3900, L3100.3425, L3100.5450, L500.4100, L500.4050, L3890.6005, L506.1000, L3300.0100, L503.6030, L3000.0375, L503.6550, L501.5101, L3400.0700, L501.4700, L3890.6200, L501.6710, L501.9520 ####[facility] [address] [place], [place], [phone] Albumin/Globulin [Mass ratio] 0.8 {ratio} Low 0.9-2.4 [facility] Comment on above: Performed By: #### L 3100.5020, L300.3900, L3100.3425, L3100.5450, L500.4100, L500.4050, L3890.6005, L506.1000, L3300.0100, L503.6030, L3000.0375, L503.6550, L501.5101, L3400.0700, L501.4700, L3890.6200, L501.6710, L501.9520 ####[facility] [address] [place], [address] ALK P 155 U/L High 45-117 [facility] Comment on above: Performed By: #### L 3100.5020, L300.3900, L3100.3425, L3100.5450, L500.4100, L500.4050, L3890.6005, L506.1000, L3300.0100, L503.6030, L3000.0375, L503.6550, L501.5101, L3400.0700, L501.4700, L3890.6200, L501.6710, L501.9520 ####[facility] [address] [place], [place], [phone] ALT [Catalytic activity/Vol] 70 U/L High 16-61 [facility] Comment on above: Performed By: #### L 3100.5020, L300.3900, L3100.3425, L3100.5450, L500.4100, L500.4050, L3890.6005, L506.1000, L3300.0100, L503.6030, L3000.0375, L503.6550, L501.5101, L3400.0700, L501.4700, L3890.6200, L501.6710, L501.9520 ####[facility] [address] [place], [address] AST [Catalytic activity/Vol] 64 U/L High 15-37 [facility] Comment on above: Performed By: #### L 3100.5020, L300.3900, L3100.3425, L3100.5450, L500.4100, L500.4050, L3890.6005, L506.1000, L3300.0100, L503.6030, L3000.0375, L503.6550, L501.5101, L3400.0700, L501.4700, L3890.6200, L501.6710, L501.9520 ####[facility] [address] [place], [place], [phone] Bilirubin [Mass/Vol] 14.00 mg/dL High 0.20-1.00 [facility] Comment on above: Result Comment: For patients on eltrombopag therapy, use of Dimension [place] TBIL is not recommended. Performed By: #### L 3100.5020, L300.3900, L3100.3425, L3100.5450, L500.4100, L500.4050, L3890.6005, L506.1000, L3300.0100, L503.6030, L3000.0375, L503.6550, L501.5101, L3400.0700, L501.4700, L3890.6200, L501.6710, L501.9520 ####[facility] [address] [place], [place], [phone]([phone] BUN/CRE 13.9 RATIO Normal 10-20 [facility] Comment on above: Performed By: #### L 3100.5020, L300.3900, L3100.3425, L3100.5450, L500.4100, L500.4050, L3890.6005, L506.1000, L3300.0100, L503.6030, L3000.0375, L503.6550, L501.5101, L3400.0700, L501.4700, L3890.6200, L501.6710, L501.9520 ####[facility] [address] [place], [place], [phone](748) CA,Total 9.9 mg/dL Normal 8.5-10.1 [facility] Comment on above: Performed By: #### L 3100.5020, L300.3900, L3100.3425, L3100.5450, L500.4100, L500.4050, L3890.6005, L506.1000, L3300.0100, L503.6030, L3000.0375, L503.6550, L501.5101, L3400.0700, L501.4700, L3890.6200, L501.6710, L501.9520 ####[facility] [address] [place], [place], [phone]([phone] Chloride [Moles/Vol] 105 mmol/L Normal 98-107 [facility] Comment on above: Performed By: #### L 3100.5020, L300.3900, L3100.3425, L3100.5450, L500.4100, L500.4050, L3890.6005, L506.1000, L3300.0100, L503.6030, L3000.0375, L503.6550, L501.5101, L3400.0700, L501.4700, L3890.6200, L501.6710, L501.9520 ####[facility] [address] [place], [place], [phone] CO2 [Moles/Vol] 25.0 mmol/L Normal 21.0-32.0 [facility] Comment on above: Performed By: #### L 3100.5020, L300.3900, L3100.3425, L3100.5450, L500.4100, L500.4050, L3890.6005, L506.1000, L3300.0100, L503.6030, L3000.0375, L503.6550, L501.5101, L3400.0700, L501.4700, L3890.6200, L501.6710, L501.9520 ####[facility] [address] [place], [place], [address] Creatinine [Mass/Vol] 1.22 mg/dL Normal 0.70-1.30 [facility] Comment on above: Result Comment: Mode rate Icterus, Result may be falsely decreased.The validity of the calculated GFR GFRAA in patients over70 years has not been determined. Clinical correlation isessential. Performed By: #### L 3100.5020, L300.3900, L3100.3425, L3100.5450, L500.4100, L500.4050, L3890.6005, L506.1000, L3300.0100, L503.6030, L3000.0375, L503.6550, L501.5101, L3400.0700, L501.4700, L3890.6200, L501.6710, L501.9520 ####[facility] [address] [place], [address] EST GFR - AA 84 mL/min Normal >60 [facility] Comment on above: Result Comment: Afri can Egyptian GFR Calc Performed By: #### L 3100.5020, L300.3900, L3100.3425, L3100.5450, L500.4100, L500.4050, L3890.6005, L506.1000, L3300.0100, L503.6030, L3000.0375, L503.6550, L501.5101, L3400.0700, L501.4700, L3890.6200, L501.6710, L501.9520 ####[facility] [address] [place], [address] GAP 7 Normal 5-15 [facility] Comment on above: Performed By: #### L 3100.5020, L300.3900, L3100.3425, L3100.5450, L500.4100, L500.4050, L3890.6005, L506.1000, L3300.0100, L503.6030, L3000.0375, L503.6550, L501.5101, L3400.0700, L501.4700, L3890.6200, L501.6710, L501.9520 ####[facility] [address] [place], [address] GFR/1.73 sq M.predicted among non-blacks MDRD (S/P/Bld) [Vol rate/Area] 70 mL/min/{1.73_m2} Normal >60 [facility] Comment on above: Result Comment: Non- GFR Calc Performed By: #### L 3100.5020, L300.3900, L3100.3425, L3100.5450, L500.4100, L500.4050, L3890.6005, L506.1000, L3300.0100, L503.6030, L3000.0375, L503.6550, L501.5101, L3400.0700, L501.4700, L3890.6200, L501.6710, L501.9520 ####[facility] [address] [place], [place], [phone](725) Globulin (S) [Mass/Vol] 3.8 g/dL Normal 2.2-4.2 [facility] Comment on above: Performed By: #### L 3100.5020, L300.3900, L3100.3425, L3100.5450, L500.4100, L500.4050, L3890.6005, L506.1000, L3300.0100, L503.6030, L3000.0375, L503.6550, L501.5101, L3400.0700, L501.4700, L3890.6200, L501.6710, L501.9520 ####[facility] [address] [place], [place], [phone](336) Glucose [Mass/Vol] 112 mg/dL High 74-106 [facility] Comment on above: Result Comment: Fast ing Glucose result from 100 to 125 mg/dLsuggests IMPAIRED HOMEOSTASIS per A.D.A. criteria. Performed By: #### L 3100.5020, L300.3900, L3100.3425, L3100.5450, L500.4100, L500.4050, L3890.6005, L506.1000, L3300.0100, L503.6030, L3000.0375, L503.6550, L501.5101, L3400.0700, L501.4700, L3890.6200, L501.6710, L501.9520 ####[facility] [address] [place], [place], [phone](064) Potassium [Moles/Vol] 4.0 mmol/L Normal 3.5-5.1 [facility] Comment on above: Performed By: #### L 3100.5020, L300.3900, L3100.3425, L3100.5450, L500.4100, L500.4050, L3890.6005, L506.1000, L3300.0100, L503.6030, L3000.0375, L503.6550, L501.5101, L3400.0700, L501.4700, L3890.6200, L501.6710, L501.9520 ####[facility] [address] [place], [place], [id number] Sodium [Moles/Vol] 137 mmol/L Normal 136-145 [facility] Comment on above: Performed By: #### L 3100.5020, L300.3900, L3100.3425, L3100.5450, L500.4100, L500.4050, L3890.6005, L506.1000, L3300.0100, L503.6030, L3000.0375, L503.6550, L501.5101, L3400.0700, L501.4700, L3890.6200, L501.6710, L501.9520 ####[facility] [address] [place], [address] T PROT 7.0 g/dL Normal 6.4-8.2 [facility] Comment on above: Result Comment: Mode rate Icterus, Result may be falsely decreased. Performed By: #### L 3100.5020, L300.3900, L3100.3425, L3100.5450, L500.4100, L500.4050, L3890.6005, L506.1000, L3300.0100, L503.6030, L3000.0375, L503.6550, L501.5101, L3400.0700, L501.4700, L3890.6200, L501.6710, L501.9520 ####[facility] [address] [place], [place], [id number] Urea nitrogen [Mass/Vol] 17 mg/dL Normal 7-18 [facility] Comment on above: Performed By: #### L 3100.5020, L300.3900, L3100.3425, L3100.5450, L500.4100, L500.4050, L3890.6005, L506.1000, L3300.0100, L503.6030, L3000.0375, L503.6550, L501.5101, L3400.0700, L501.4700, L3890.6200, L501.6710, L501.9520 ####[facility] [address] [place], [address] Copper, serumOrdered By: Mendoza Lui on 09-11-2024 Serum Copper 185 ug/dL High 69-132 [facility] Comment on above: Detection Limit = 5P erformed at: [employer] [facility] [address] [id number] Director: Raj Dick PhD, Phone: [phone] at: [email or web address] [address] [id number] Director: Kelly Jansen MD, Phone: [phone] DNA double strand Ab Qn (S)O rdered By: Francesco Lui on 09-11-2024 Anti-Double Strand DNA Antibody Not Reportable [facility] Estimated glomerular filtrat ion rate (GFR) AmericanOrdered By: Francesco Lui on 09-11-2024 Estimated GFR (MDRD) Amer 84 mL/min >60 [facility] Comment on above: GFR Calc Ferritinon 09-11-2024 Ferritin [Mass/Vol] 746 ng/mL High 26-388 [facility] Comment on above: Result Comment: Mode rate Icterus, Result may be falsely decreased. Performed By: #### L 3100.5020, L300.3900, L3100.3425, L3100.5450, L500.4100, L500.4050, L3890.6005, L506.1000, L3300.0100, L503.6030, L3000.0375, L503.6550, L501.5101, L3400.0700, L501.4700, L3890.6200, L501.6710, L501.9520 ####[facility] [address] [place], [address] Ferritin measurementOrdered By: Francesco Lui on 09-11-2024 Ferritin [Mass/Vol] 746 ng/mL High 26-388 [facility] Comment on above: Moderate Icterus, Re sult may be falsely decreased. Gamma globulin Elph [Mass/Vo l]Ordered By: Francesco Lui on 09-11-2024 Gamma Globulins (AYDEN) 0.8 g/dL 0.4-1.8 [facility] Gamma glutamyl transferase ( GGT) measurementOrdered By: Francesco Lui on 09-11-2024 Amylase [Catalytic activity/Vol] 69 U/L High 0-65 [facility] Gastroenterology Visit Repor ton 09-11-2024 Gastroenterology Visit Report Normal [facility] Glomerular filtration rate ( GFR) estimationOrdered By: Francesco Lui on 09-11-2024 Estimated GFR (MDRD) Non-Af Amer 70 mL/min >60 [facility] Comment on above: Non- GFR Calc Glucose measurementOrdered B y: Francesco Lui on 09-11-2024 Glucose [Mass/Vol] 112 mg/dL High 74-106 [facility] Comment on above: Fasting Glucose resu lt from 100 to 125 mg/dL suggests IMPAIRED HOMEOSTASIS per A.D.A. criteria. HBV surface Ag IA QlOrdered By: Francesco Lui on 09-11-2024 Hepatitis B Surface Antigen Negative Negative [facility] HBV surface IgG Ql (S)Ordere d By: Francesco Lui on 09-11-2024 Hepatitis B Surface Antibody Non-Reactive [facility] Comment on above: Non Reactive: Incons istent with immunity less than <10 mIU/mL Reactive: Consistent with immunity greater than or equal to 10 mIU/mL HIV 1+2 Ab+HIV1 p24 Ag IA Ql Ordered By: Francesco Lui on 09-11-2024 HIV (1&2) Antibody Non-Reactive Nonreactive [facility] Hepatitis A virus IgM antibo dy assayOrdered By: Francesco Lui on 09-11-2024 Hepatitis A IgM Antibody Negative Negative [facility] Comment on above: A negative anti-HAV IgM result suggests no recent orcurrent HAV infection. Hepatitis B virus core IgM a ntibody assayOrdered By: Francesco Lui on 09-11-2024 Hepatitis B Core IgM Antibody Negative Negative [facility] Hepatitis C virus antibody a ssayOrdered By: Francesco Lui on 09-11-2024 Hepatitis C Antibody (EIA) Non-Reactive Non Reactive [facility] High density lipoprotein (HD L) measurementOrdered By: Francesco Lui on 09-11-2024 Cholesterol in HDL [Mass/Vol] 7 mg/dL Low >40 [facility] Comment on above: The drugs N-Acetylcy steine and Metamizole may falsely depress this assay. Reference Range HDL <40 mg/dL Low HDL Cholesterol HDL >or= 60 mg/dL High HDL Cholesterol IgA [Mass/Vol]Ordered By: Gracie Lui on 09-11-2024 Immunoglobulin A 150 mg/dL 90-386 [facility] IgG [Mass/Vol]Ordered By: Gracie Lui on 09-11-2024 Immunoglobulin G 904 mg/dL 603-1613 [facility] Immunoglobulin M measurement Ordered By: Francesco Lui on 09-11-2024 Immunoglobulin M 48 mg/dL 20-172 [facility] International normalized rat io (INR) calculationOrdered By: Francesco Lui on 09-11-2024 INR Coag (Bld) [Relative time] 0.9 {INR} [facility] Interpretation IEP [Interp]O rdered By: Francesco Lui on 09-11-2024 Immunofixation Screen Comment . [facility] Comment on above: No monoclonality det ected. Iron (Unsp spec) [Mass/Mass] Ordered By: Francesco Lui on 09-11-2024 Iron [Mass/Vol] 123 ug/dL 65-175 [facility] Iron saturation [Mass fracti on]Ordered By: Francesco Lui on 09-11-2024 Iron Saturation 32.5 % 15.0-55.0 [facility] Iron+Iron Binding Capacityon 09-11-2024 Iron [Mass/Vol] 123 ug/dL Normal 65-175 [facility] Comment on above: Performed By: #### L 3100.5020, L300.3900, L3100.3425, L3100.5450, L500.4100, L500.4050, L3890.6005, L506.1000, L3300.0100, L503.6030, L3000.0375, L503.6550, L501.5101, L3400.0700, L501.4700, L3890.6200, L501.6710, L501.9520 ####[facility] [address] [place], [address] IRON SATURATION 32.5 Normal 15.0-55.0 [facility] Comment on above: Performed By: #### L 3100.5020, L300.3900, L3100.3425, L3100.5450, L500.4100, L500.4050, L3890.6005, L506.1000, L3300.0100, L503.6030, L3000.0375, L503.6550, L501.5101, L3400.0700, L501.4700, L3890.6200, L501.6710, L501.9520 ####[facility] [address] [place], [address] TIBC 378 ug/dL Normal 250-450 [facility] Comment on above: Performed By: #### L 3100.5020, L300.3900, L3100.3425, L3100.5450, L500.4100, L500.4050, L3890.6005, L506.1000, L3300.0100, L503.6030, L3000.0375, L503.6550, L501.5101, L3400.0700, L501.4700, L3890.6200, L501.6710, L501.9520 ####[facility] [address] [place], [address] Tessa-1 antibody assayOrdered B y: Francesco Lui on 09-11-2024 TESSA-1 Antibody Not Reportable [facility] Laboratory - Chemistry and C hemistry - challengeOrdered By: Francesco Lui on 09-11-2024 AST [Catalytic activity/Vol] 64 U/L High 15-37 [facility] Lipid Profileon 09-11-2024 Cholesterol [Mass/Vol] 215 mg/dL High 200 [facility] Comment on above: Result Comment: Mode rate Icterus, Result may be falsely decreased. <200 mg/dL Desirable 200-240 mg/dL Borderline >240 mg/dL High Risk Performed By: #### L 3100.5020, L300.3900, L3100.3425, L3100.5450, L500.4100, L500.4050, L3890.6005, L506.1000, L3300.0100, L503.6030, L3000.0375, L503.6550, L501.5101, L3400.0700, L501.4700, L3890.6200, L501.6710, L501.9520 ####[facility] [address] [place], [address] Cholesterol in HDL [Mass/Vol] 7 mg/dL Low [facility] Comment on above: Result Comment: The drugs N-Acetylcysteine and Metamizole may falselydepress this assay. Reference Range HDL <40 mg/dL Low HDL Cholesterol HDL >or= 60 mg/dL High HDL Cholesterol Performed By: #### L 3100.5020, L300.3900, L3100.3425, L3100.5450, L500.4100, L500.4050, L3890.6005, L506.1000, L3300.0100, L503.6030, L3000.0375, L503.6550, L501.5101, L3400.0700, L501.4700, L3890.6200, L501.6710, L501.9520 ####[facility] [address] [place], [address] Cholesterol in LDL [Mass/Vol] 139 mg/dL High 0-130 [facility] Comment on above: Performed By: #### L 3100.5020, L300.3900, L3100.3425, L3100.5450, L500.4100, L500.4050, L3890.6005, L506.1000, L3300.0100, L503.6030, L3000.0375, L503.6550, L501.5101, L3400.0700, L501.4700, L3890.6200, L501.6710, L501.9520 ####[facility] [address] [place], [address] Cholesterol in VLDL [Mass/Vol] 69 mg/dL High 5-40 [facility] Comment on above: Performed By: #### L 3100.5020, L300.3900, L3100.3425, L3100.5450, L500.4100, L500.4050, L3890.6005, L506.1000, L3300.0100, L503.6030, L3000.0375, L503.6550, L501.5101, L3400.0700, L501.4700, L3890.6200, L501.6710, L501.9520 ####[facility] [address] [place], [address] Triglyceride [Mass/Vol] 345 mg/dL High [facility] Comment on above: Result Comment: The drugs N-Acetylcysteine and Metamizole may falselydepress this assay.Moderate Icterus, Result may be falsely increased.Serum Triglycerides Reference Interval Normal <150 mg/dL Borderline high 150 - 199 mg/dL High 200 - 499 mg/dL Very High > or = 500 mg/dL Performed By: #### L 3100.5020, L300.3900, L3100.3425, L3100.5450, L500.4100, L500.4050, L3890.6005, L506.1000, L3300.0100, L503.6030, L3000.0375, L503.6550, L501.5101, L3400.0700, L501.4700, L3890.6200, L501.6710, L501.9520 ####[facility] [address] [place], [place], [id number] Low density lipoprotein (LDL ) cholesterol measurementOrdered By: Francesco Lui on 09-11-2024 Cholesterol in LDL [Mass/Vol] 139 mg/dL High 0-130 [facility] No Panel InformationOrdered By: Francesco Lui on 09-11-2024 Hepatitis C Antibody Comment Comment . [facility] Comment on above: Not infected with HC V unless early or acute infection issuspected (which may be delayed in an immunocompromisedindividual), or other evidence exists to indicate HCVinfection. Potassium measurementOrdered By: Francesco Lui on 09-11-2024 Potassium [Moles/Vol] 4.0 mmol/L 3.5-5.1 [facility] Protein Fractions Immunofixa tion Emanuel [Interp]Ordered By: Francesco Lui on 09-11-2024 M-Mychal (AYDEN) Not Observed g/dL Not Observed [facility] Prothrombin Time w/INRon INR Coag (PPP) [Relative time] 0.9 {INR} Normal [facility] Comment on above: Performed By: #### L 3100.5020, L300.3900, L3100.3425, L3100.5450, L500.4100, L500.4050, L3890.6005, L506.1000, L3300.0100, L503.6030, L3000.0375, L503.6550, L501.5101, L3400.0700, L501.4700, L3890.6200, L501.6710, L501.9520 ####[facility] [address] [place], [place], [id number] PT Coag (PPP) [Time] 12.3 s Normal 11.7-14.9 [facility] Comment on above: Performed By: #### L 3100.5020, L300.3900, L3100.3425, L3100.5450, L500.4100, L500.4050, L3890.6005, L506.1000, L3300.0100, L503.6030, L3000.0375, L503.6550, L501.5101, L3400.0700, L501.4700, L3890.6200, L501.6710, L501.9520 ####[facility] [address] [place], [address] Prothrombin timeOrdered By: Francesco Lui on 09-11-2024 PT Coag (PPP) [Time] 12.3 s 11.7-14.9 [facility] SPLICER MACHINE OPERATOR abOrdered By: Francesco Acharya and on 09-11-2024 SPLICER MACHINE OPERATOR Antibody Not Reportable [facility] SCL-70 extractable nuclear A b Qn (S)Ordered By: Francesco Lui on 09-11-2024 Scl-70 (Scleroderma) Antibody Not Reportable [facility] SS-A IgG antibody assayOrder ed By: Francesco Lui on 09-11-2024 SS-A/Ro IgG Antibody Not Reportable [facility] SS-B IgG antibody assayOrder ed By: Francesco Lui on 09-11-2024 SS-B/La IgG Antibody Not Reportable [facility] Serum albumin/globulin ratio Ordered By: Francesco Lui on 09-11-2024 Albumin/Globulin (AYDEN) 1.1 0.7-1.7 [facility] Serum anion gap measurementO rdered By: Francesco Lui on 09-11-2024 Anion gap [Moles/Vol] 7 mmol/L 5-15 [facility] Serum globulin measurement ( mass/volume)Ordered By: Francesco Lui on 09-11-2024 Globulin (S) [Mass/Vol] 3.2 g/dL 2.2-3.9 [facility] Serum or plasma alanine mays otransferase (ALT) measurementOrdered By: Francesco Lui on 09-11-2024 ALT [Catalytic activity/Vol] 70 U/L High 16-61 [facility] Serum or plasma albumin marquise urement (mass/volume)Ordered By: Francesco Lui on 09-11-2024 Albumin [Mass/Vol] 3.2 g/dL 3.2-5.0 [facility] Serum or plasma alkaline daniel sphatase measurementOrdered By: Francesco Lui on 09-11-2024 ALP [Catalytic activity/Vol] 155 U/L High 45-117 [facility] Serum or plasma calcium marquise urement (mass/volume)Ordered By: Francesco Lui on 09-11-2024 Calcium [Mass/Vol] 9.9 mg/dL 8.5-10.1 [facility] Serum or plasma cholesterol measurement (mass/volume)Ordered By: Francesco Lui on 09-11-2024 Cholesterol [Mass/Vol] 215 mg/dL High <200 [facility] Comment on above: Moderate Icterus, Re sult may be falsely decreased. <200 mg/dL Desirable 200-240 mg/dL Borderline >240 mg/dL High Risk Serum or plasma creatinine m easurement (mass/volume)Ordered By: Francesco Lui on 09-11-2024 Creatinine [Mass/Vol] 1.22 mg/dL 0.70-1.30 [facility] Comment on above: Moderate Icterus, Re sult may be falsely decreased.The validity of the calculated GFR & GFRAA in patients over 70 years has not been determined. Clinical correlation is essential. Serum or plasma protein marquise urement (mass/volume)Ordered By: Francesco Lui on 09-11-2024 Protein [Mass/Vol] 6.5 g/dL 6.0-8.5 [facility] Serum or plasma urea nitroge n measurement (mass/volume)Ordered By: Francesco Lui on 09-11-2024 Urea nitrogen [Mass/Vol] 17 mg/dL 7-18 [facility] Batista antibody assayOrdered By: Francesco Lui on 09-11-2024 SM Antibody Not Reportable [facility] Sodium levelOrdered By: Frederick Lui on 09-11-2024 Sodium [Moles/Vol] 137 mmol/L 136-145 [facility] TIBCOrdered By: Francesco love on 09-11-2024 Total Iron Binding Capacity 378 ug/dL 250-450 [facility] TSH QnOrdered By: Francesco Acharya and on 09-11-2024 Thyroid Stimulating Hormone (TSH) 0.918 uIU/mL 0.358-3.740 [facility] Thyroid Stim Hormone (TSH)on 09-11-2024 TSH 0.918 uIU/mL Normal 0.358-3.740 [facility] Comment on above: Performed By: #### L 3100.5020, L300.3900, L3100.3425, L3100.5450, L500.4100, L500.4050, L3890.6005, L506.1000, L3300.0100, L503.6030, L3000.0375, L503.6550, L501.5101, L3400.0700, L501.4700, L3890.6200, L501.6710, L501.9520 ####[facility] [address] [place], [place], [address] Total proteinOrdered By: Mendoza Lui on 09-11-2024 Protein [Mass/Vol] 7.0 g/dL 6.4-8.2 [facility] Comment on above: Moderate Icterus, Re sult may be falsely decreased. Triglycerides measurementOrd ered By: Francesco Lui on 09-11-2024 Triglyceride [Mass/Vol] 345 mg/dL High <199 [facility] Comment on above: The drugs [...] 09-11-2024 VLDL Cholesterol 69 mg/dL High 5-40 [facility] QUIQUE Comprehensive Panelon QUIQUE TABLE Comment Normal . [facility] Comment on above: Result Comment: Auto antibody Disease Association ------- Condition Frequency ---------Antinuclear Antibody, SLE, mixed connectiveDirect (QUIQUE-D) tissue diseases ---------dsDNA SLE 40 - 60% ---------Chromatin Drug induced SLE 90% SLE 48 - 97% ---------SSA (Ro) SLE 25 - 35% Sjogren's Syndrome 40 - 70% Lupus 100% ---------SSB (La) SLE 10% Sjogren's Syndrome 30% ---------Sm (anti-Batista) SLE 15 - 30% ---------SPLICER MACHINE OPERATOR Mixed Connective Tissue Disease 95%(U1 nRNP, SLE 30 - 50%anti-ribonucleoprotein) Polymyositis and/or Dermatomyositis 20% ---------Scl-70 (antiDNA Scleroderma (diffuse) 20 - 35%topoisomerase) Crest 13% ---------Tessa-1 Polymyositis and/or Dermatomyositis 20 - 40% ---------Centromere B Scleroderma - Crest variant 80%Performed at: [facility] [id number] Director: Raj Dick PhD, Phone: [phone] Performed By: #### L 3100.5640, L3855.2284 ####[facility] [address] [place], [place], [id number] ANTI-CENT B AB <0.2 Normal 0.0-0.9 [facility] Comment on above: Performed By: #### L 3100.5440, L3100.5020 ####[facility] [address] [place], [address] ANTI-DNA (DS)AB <1 Normal 0-9 [facility] Comment on above: Result Comment: Nega tive <5 Equivocal 5 - 9 Positive >9 Performed By: #### L 3100.5440, L3100.5020 ####[facility] [address] [facility] [place], [address] ANTI-TESSA-1 <0.2 Normal 0.0-0.9 [facility] Comment on above: Performed By: #### L 3100.5440, L3100.5020 ####[facility] [address] [place], [address] ANTI-SS-A < 0.2 Normal 0.0-0.9 [facility] Comment on above: Performed By: #### L 3100.5440, L3100.5020 ####[facility] [address] [place], [address] ANTI-SS-B < 0.2 Normal 0.0-0.9 [facility] Comment on above: Performed By: #### L 3100.5440, L3100.5020 ####[facility] [address] [place], [address] ANTICHROMATIN <0.2 Normal 0.0-0.9 [facility] Comment on above: Performed By: #### L 3100.5440, L3100.5020 ####[facility] [address] [place], [address] ANTISCLERODERM <0.2 Normal 0.0-0.9 [facility] Comment on above: Performed By: #### L 3100.5440, L3100.5020 ####[facility] [address] [place], [address] SPLICER MACHINE OPERATOR Ab <0.2 Normal 0.0-0.9 [facility] Comment on above: Performed By: #### L 3100.5440, L3100.5020 ####[facility] [address] [place], [address] BATISTA Ab <0.2 Normal 0.0-0.9 [facility] Comment on above: Performed By: #### L 3100.5440, L3100.5020 ####[facility] [address] [place], [address] Carbohydrate AG 19-9on 09-08 CA 19-9 139 U/mL High 0-35 [facility] Comment on above: Result Comment: [employer] Electrochemiluminescence Immunoassay(ECLIA)Values obtained with different assay methods or kits cannotbe used interchangeably. Results cannot be interpreted asabsolute evidence of the presence or absence of malignantdisease.Performed at: [facility] [address] [id number] Director: Raj Dick PhD, Phone: [phone] Performed By: #### L 5393.3114, L3749.8303 ####[facility] [address] [place], [place], [id number] ERCP Reporton 09-08-2024 ERCP Report Normal [facility] Albumin to globulin ratioOrd ered By: Cruz Arciniega on 09-07-2024 Albumin/Globulin [Mass ratio] 0.8 {ratio} Low 0.9-2.4 [facility] Bilirubin, totalOrdered By: Cruz Arciniega on 09-07-2024 Bilirubin [Mass/Vol] 16.70 mg/dL High 0.20-1.00 [facility] Comment on above: Critical Result(s) C alled at: 06:50:04 09/07/2024 by: Leesa Goodman to [facility]. Results read back by same. For patients on eltrombopag therapy, use of Dimension [place] TBIL is not recommended. Blood urea nitrogen (BUN)/cr eatinine ratioOrdered By: Cruz Arciniega on 09-07-2024 Urea nitrogen/Creatinine [Mass ratio] 16.8 mg/mg 10-20 [facility] Carbon dioxide measurementOr dered By: Cruz Arciniega on 09-07-2024 CO2 [Moles/Vol] 26.0 mmol/L 21.0-32.0 [facility] Chloride measurementOrdered By: Cruz Arciniega on 09-07-2024 Chloride [Moles/Vol] 106 mmol/L 98-107 [facility] Comprehensive Metabolic Prof ilon 09-07-2024 Albumin [Mass/Vol] 2.6 g/dL Low 3.2-5.0 [facility] Comment on above: Performed By: #### L 500.4050 ####[facility] [address] [place], [address] Albumin/Globulin [Mass ratio] 0.8 {ratio} Low 0.9-2.4 [facility] Comment on above: Performed By: #### L 500.4050 ####[facility] [address] [place], [address] ALK P 150 U/L High 45-117 [facility] Comment on above: Performed By: #### L 500.4050 ####[facility] [address] [place], [address] ALT [Catalytic activity/Vol] 50 U/L Normal 16-61 [facility] Comment on above: Performed By: #### L 500.4050 ####[facility] [address] [place], [address] AST [Catalytic activity/Vol] 47 U/L High 15-37 [facility] Comment on above: Performed By: #### L 500.4050 ####[facility] [address] [place], [address] Bilirubin [Mass/Vol] 16.70 mg/dL Invalid Interpretation Code 0.20-1.00 [facility] Comment on above: Result Comment: Crit ical Result(s) Called at: 06:50:04 09/07/2024 by:Leesa Goodman to [facility]. Results read back by same. For patients on eltrombopag therapy, use of Dimension [place] TBIL is not recommended. Performed By: #### L 500.4050 ####[facility] [address] [place], [address] BUN/CRE 16.8 RATIO Normal 10-20 [facility] Comment on above: Performed By: #### L 500.4050 ####[facility] [address] [place], [address] CA,Total 9.4 mg/dL Normal 8.5-10.1 [facility] Comment on above: Performed By: #### L 500.4050 ####[facility] [address] [place], [address] Chloride [Moles/Vol] 106 mmol/L Normal 98-107 [facility] Comment on above: Performed By: #### L 500.4050 ####[facility] [address] [place], [address] CO2 [Moles/Vol] 26.0 mmol/L Normal 21.0-32.0 [facility] Comment on above: Performed By: #### L 500.4050 ####[facility] [address] [place], [address] Creatinine [Mass/Vol] 1.19 mg/dL Normal 0.70-1.30 [facility] Comment on above: Result Comment: Mode rate Icterus, Result may be falsely decreased.The validity of the calculated GFR GFRAA in patients over70 years has not been determined. Clinical correlation isessential. Performed By: #### L 500.4050 ####[facility] [address] [place], [address] ECRCL 93.41 ml/min Normal [facility] Comment on above: Performed By: #### L 500.4050 ####[facility] [address] [place], [address] EST GFR - AA 87 mL/min Normal >60 [facility] Comment on above: Result Comment: Afri can Egyptian GFR Calc Performed By: #### L 500.4050 ####[facility] [address] [place], [address] GAP 6 Normal 5-15 [facility] Comment on above: Performed By: #### L 500.4050 ####[facility] [address] [place], [address] GFR/1.73 sq M.predicted among non-blacks MDRD (S/P/Bld) [Vol rate/Area] 72 mL/min/{1.73_m2} Normal >60 [facility] Comment on above: Result Comment: Non- GFR Calc Performed By: #### L 500.4050 ####[facility] [address] [place], [address] Globulin (S) [Mass/Vol] 3.4 g/dL Normal 2.2-4.2 [facility] Comment on above: Performed By: #### L 500.4050 ####[facility] [address] [place], [address] Glucose [Mass/Vol] 100 mg/dL Normal 74-106 [facility] Comment on above: Result Comment: Fast ing Glucose result from 100 to 125 mg/dLsuggests IMPAIRED HOMEOSTASIS per A.D.A. criteria. Performed By: #### L 500.4050 ####[facility] [address] [place], [address] Potassium [Moles/Vol] 3.8 mmol/L Normal 3.5-5.1 [facility] Comment on above: Performed By: #### L 500.4050 ####[facility] [address] [place], [address] Sodium [Moles/Vol] 138 mmol/L Normal 136-145 [facility] Comment on above: Performed By: #### L 500.4050 ####[facility] [address] [place], [address] T PROT 6.0 g/dL Low 6.4-8.2 [facility] Comment on above: Result Comment: Mode rate Icterus, Result may be falsely decreased. Performed By: #### L 500.4050 ####[facility] [address] [place], [address] Urea nitrogen [Mass/Vol] 20 mg/dL High 7-18 [facility] Comment on above: Performed By: #### L 500.4050 ####[facility] [address] [place], [address] Estimated glomerular filtrat ion rate (GFR) AmericanOrdered By: Cruz Arciniega on 09-07-2024 Estimated GFR (MDRD) Amer 87 mL/min >60 [facility] Comment on above: GFR Calc Estimation of creatinine alyson aranceOrdered By: Cruz Arciniega on 09-07-2024 Estimated Creatinine Clearance Calc 93.41 ml/min [facility] Glomerular filtration rate ( GFR) estimationOrdered By: Cruz Arciniega on 09-07-2024 Estimated GFR (MDRD) Non-Af Amer 72 mL/min >60 [facility] Comment on above: Non- GFR Calc Glucose measurementOrdered B y: Cruz Arciniega on 09-07-2024 Glucose [Mass/Vol] 100 mg/dL 74-106 [facility] Comment on above: Fasting Glucose resu lt from 100 to 125 mg/dL suggests IMPAIRED HOMEOSTASIS per A.D.A. criteria. Laboratory - Chemistry and C hemistry - challengeOrdered By: Cruz Arciniega on 09-07-2024 AST [Catalytic activity/Vol] 47 U/L High 15-37 [facility] MR/PN.GIon 09-07-2024 MR/PN.GI Normal [facility] Potassium measurementOrdered By: Cruz Arciniega on 09-07-2024 Potassium [Moles/Vol] 3.8 mmol/L 3.5-5.1 [facility] Serum anion gap measurementO rdered By: Cruz Arciniega on 09-07-2024 Anion gap [Moles/Vol] 6 mmol/L 5-15 [facility] Serum globulin measurementOr dered By: Cruz Arciniega on 09-07-2024 Globulin (S) [Mass/Vol] 3.4 g/dL 2.2-4.2 [facility] Serum or plasma alanine mays otransferase (ALT) measurementOrdered By: Cruz Arciniega on 09-07-2024 ALT [Catalytic activity/Vol] 50 U/L 16-61 [facility] Serum or plasma albumin marquise urement (mass/volume)Ordered By: Cruz Arciniega on 09-07-2024 Albumin [Mass/Vol] 2.6 g/dL Low 3.2-5.0 [facility] Serum or plasma alkaline daniel sphatase measurementOrdered By: Cruz Arciniega on 09-07-2024 ALP [Catalytic activity/Vol] 150 U/L High 45-117 [facility] Serum or plasma calcium marquise urement (mass/volume)Ordered By: Cruz Arciniega on 09-07-2024 Calcium [Mass/Vol] 9.4 mg/dL 8.5-10.1 [facility] Serum or plasma creatinine m easurement (mass/volume)Ordered By: Cruz Arciniega on 09-07-2024 Creatinine [Mass/Vol] 1.19 mg/dL 0.70-1.30 [facility] Comment on above: Moderate Icterus, Re sult may be falsely decreased.The validity of the calculated GFR & GFRAA in patients over 70 years has not been determined. Clinical correlation is essential. Serum or plasma urea nitroge n measurement (mass/volume)Ordered By: Cruz Arciniega on 09-07-2024 Urea nitrogen [Mass/Vol] 20 mg/dL High 7-18 [facility] Sodium levelOrdered By: Truman Arciniega on 09-07-2024 Sodium [Moles/Vol] 138 mmol/L 136-145 [facility] Total proteinOrdered By: Dionne Arciniega on 09-07-2024 Protein [Mass/Vol] 6.0 g/dL Low 6.4-8.2 [facility] Comment on above: Moderate Icterus, Re sult may be falsely decreased. Alpha fetoprotein measuremen t as tumor markerOrdered By: Denys Babin on 09-06-2024 Tumor Marker Alpha Fetoprotein 3.2 ng/mL 0.0-6.9 [facility] Comment on above: [employer] El ectrochemiluminescence Immunoassay(ECLIA)Values obtained with different assay methods or kits cannotbe used interchangeably. Results cannot be interpreted asabsolute evidence of the presence or absence of malignantdisease.This test is not interpretable in females.Previous reported result: ng/mLEdited by: MODESTA on 09/14/24:0922 AMENDED REPORT 09/14/24 0922 AFP TUMOR 2253 previously reported as: TEST RESULTS LIMITSAFP, Serum, Tumor Marker 3.2 ng/mL 0.0-6.9[facility] Electrochemiluminescence Immunoassay (ECLIA)Values obtained with different assay methods or kits cannot beused interchangeably. Results cannot be interpreted as absoluteevidence of the presence or absence of malignant disease.This test is not interpretable in females. [facility] ORIGINAL REPORT ON FILE IN LAB CONTAINS ADDITIONAL TEST SITE INFORMATION. Atypical perinuclear antineu trophil cytoplasmic antibodies measurementOrdered By: Denys Babin on 09-06-2024 Atypical p-ANCA <1:20 titer Neg:<1:20 [facility] Comment on above: Note: Specimen is ic teric.The atypical pANCA pattern has been observed in asignificant percentage of patients with ulcerative colitis,primary sclerosing cholangitis and autoimmune hepatitis. CA 19-9 agOrdered By: Andrade Babin on 09-06-2024 CA 19-9 Antigen 139 U/mL High 0-35 [facility] Comment on above: [employer] El ectrochemiluminescence Immunoassay(ECLIA)Values obtained with different assay methods or kits cannotbe used interchangeably. Results cannot be interpreted asabsolute evidence of the presence or absence of malignantdisease.Performed at: [facility] [id number] Director: Raj Dick PhD, Phone: [phone] CBC-Complete Blood Cnt No Di ffon 09-06-2024 Erythrocyte distribution width (RBC) [Ratio] 17.0 % High 11.6-14.6 [facility] Comment on above: Performed By: #### L 100.0500 ####[facility] [address] [place], [address] Hematocrit (Bld) [Volume fraction] 38.6 % Low 40-54 [facility] Comment on above: Performed By: #### L 100.0500 ####[facility] [address] [place], [address] Hemoglobin (Bld) [Mass/Vol] 13.2 g/dL Normal 13.0-16.5 [facility] Comment on above: Performed By: #### L 100.0500 ####[facility] [address] [place], [address] MCH (RBC) [Entitic mass] 30.3 pg Normal 27.0-32.0 [facility] Comment on above: Performed By: #### L 100.0500 ####[facility] [address] [place], [address] MCHC (RBC) [Mass/Vol] 34.2 g/dL Normal 32-36 [facility] Comment on above: Performed By: #### L 100.0500 ####[facility] [address] [place], [address] MCV (RBC) [Entitic vol] 88.7 fL Normal 80-94 [facility] Comment on above: Performed By: #### L 100.0500 ####[facility] [address] [place], [address] Platelet mean volume (Bld) [Entitic vol] 9.5 fL Normal 6.2-12.0 [facility] Comment on above: Performed By: #### L 100.0500 ####[facility] [address] [place], [address] Platelets (Bld) [#/Vol] 291 10*3/uL Normal 150-450 [facility] Comment on above: Performed By: #### L 100.0500 ####[facility] [address] [place], [address] RBC (Bld) [#/Vol] 4.35 10*6/uL Low 4.6-6.2 [facility] Comment on above: Performed By: #### L 100.0500 ####[facility] [address] [place], [address] RDW SD 54.9 fl High 35.1-43.9 [facility] Comment on above: Performed By: #### L 100.0500 ####[facility] [address] [place], [address] WBC (Bld) [#/Vol] 6.8 10*3/uL Normal 4.4-11.0 [facility] Comment on above: Performed By: #### L 100.0500 ####[facility] [address] [place], [place], [phone] Centromere B antibody assayO rdered By: Denys Babin on 09-06-2024 Centromere B Antibody <0.2 AI 0.0-0.9 [facility] Chromatin antibody assayOrde red By: Denys Babin on 09-06-2024 Antichromatin Antibodies <0.2 AI 0.0-0.9 [facility] Comprehensive Metabolic Prof ilon 09-06-2024 Albumin [Mass/Vol] 2.8 g/dL Low 3.2-5.0 [facility] Comment on above: Performed By: #### L 500.4050, L501.5200, L501.2300 ####[facility] [address] [place], [address] Albumin/Globulin [Mass ratio] 0.8 {ratio} Low 0.9-2.4 [facility] Comment on above: Performed By: #### L 500.4050, L501.5200, L501.2300 ####[facility] [address] [place], [address] ALK P 165 U/L High 45-117 [facility] Comment on above: Performed By: #### L 500.4050, L501.5200, L501.2300 ####[facility] [address] [place], [address] ALT [Catalytic activity/Vol] 63 U/L High 16-61 [facility] Comment on above: Performed By: #### L 500.4050, L501.5200, L501.2300 ####[facility] [address] [place], [address] AST [Catalytic activity/Vol] 58 U/L High 15-37 [facility] Comment on above: Performed By: #### L 500.4050, L501.5200, L501.2300 ####[facility] [address] [place], [address] Bilirubin [Mass/Vol] 20.10 mg/dL Invalid Interpretation Code 0.20-1.00 [facility] Comment on above: Result Comment: Crit ical Result(s) Called at: 08:20:54 09/06/2024 by: CRISTIANO to Diana Brewster. Results read back by same. For patients on eltrombopag therapy, use of Dimension [place] TBIL is not recommended. Performed By: #### L 500.4050, L501.5200, L501.2300 ####[facility] [address] [place], [address] BUN/CRE 11.9 RATIO Normal 10-20 [facility] Comment on above: Performed By: #### L 500.4050, L501.5200, L501.2300 ####[facility] [address] [place], [address] CA,Total 9.1 mg/dL Normal 8.5-10.1 [facility] Comment on above: Performed By: #### L 500.4050, L501.5200, L501.2300 ####[facility] [address] [place], [address] Chloride [Moles/Vol] 106 mmol/L Normal 98-107 [facility] Comment on above: Performed By: #### L 500.4050, L501.5200, L501.2300 ####[facility] [address] [place], [address] CO2 [Moles/Vol] 27.0 mmol/L Normal 21.0-32.0 [facility] Comment on above: Performed By: #### L 500.4050, L501.5200, L501.2300 ####[facility] [address] [place], [address] Creatinine [Mass/Vol] 1.18 mg/dL Normal 0.70-1.30 [facility] Comment on above: Result Comment: Mode rate Icterus, Result may be falsely decreased.The validity of the calculated GFR GFRAA in patients over70 years has not been determined. Clinical correlation isessential. Performed By: #### L 500.4050, L501.5200, L501.2300 ####[facility] [address] [place], [address] ECRCL 94.20 ml/min Normal [facility] Comment on above: Performed By: #### L 500.4050, L501.5200, L501.2300 ####[facility] [address] [place], [address] EST GFR - AA 88 mL/min Normal >60 [facility] Comment on above: Result Comment: Afri can Egyptian GFR Calc Performed By: #### L 500.4050, L501.5200, L501.2300 ####[facility] [address] [place], [address] GAP 6 Normal 5-15 [facility] Comment on above: Performed By: #### L 500.4050, L501.5200, L501.2300 ####[facility] [address] [place], [address] GFR/1.73 sq M.predicted among non-blacks MDRD (S/P/Bld) [Vol rate/Area] 72 mL/min/{1.73_m2} Normal >60 [facility] Comment on above: Result Comment: Non- GFR Calc Performed By: #### L 500.4050, L501.5200, L501.2300 ####[facility] [address] [place], [address] Globulin (S) [Mass/Vol] 3.3 g/dL Normal 2.2-4.2 [facility] Comment on above: Performed By: #### L 500.4050, L501.5200, L501.2300 ####[facility] [address] [place], [address] Glucose [Mass/Vol] 112 mg/dL High 74-106 [facility] Comment on above: Result Comment: Fast ing Glucose result from 100 to 125 mg/dLsuggests IMPAIRED HOMEOSTASIS per A.D.A. criteria. Performed By: #### L 500.4050, L501.5200, L501.2300 ####[facility] [address] [place], [address] Potassium [Moles/Vol] 4.1 mmol/L Normal 3.5-5.1 [facility] Comment on above: Performed By: #### L 500.4050, L501.5200, L501.2300 ####[facility] [address] [place], [address] Sodium [Moles/Vol] 140 mmol/L Normal 136-145 [facility] Comment on above: Performed By: #### L 500.4050, L501.5200, L501.2300 ####[facility] [address] [place], [address] T PROT 6.1 g/dL Low 6.4-8.2 [facility] Comment on above: Result Comment: Mode rate Icterus, Result may be falsely decreased. Performed By: #### L 500.4050, L501.5200, L501.2300 ####[facility] [address] [place], [address] Urea nitrogen [Mass/Vol] 14 mg/dL Normal 7-18 [facility] Comment on above: Performed By: #### L 500.4050, L501.5200, L501.2300 ####[facility] [address] [place], [address] DNA double strand Ab Qn (S)O rdered By: Denys Babin on 09-06-2024 Anti-Double Strand DNA Antibody <1 IU/mL 0-9 [facility] Comment on above: Negative <5 Equivoca l 5 - 9 Positive >9 Erythrocyte distribution wid th ratioOrdered By: Cruz Arciniega on 09-06-2024 Erythrocyte distribution width (RBC) [Ratio] 17.0 % High 11.6-14.6 [facility] Erythrocyte distribution wid th standard deviationOrdered By: Cruz Arciniega on 09-06-2024 Erythrocyte distribution width (RBC) [Entitic vol] 54.9 fL High 35.1-43.9 [facility] Hematocrit Auto (Bld) [Volum e fraction]Ordered By: Cruz Arciniega on 09-06-2024 Hematocrit (Bld) [Volume fraction] 38.6 % Low 40-54 [facility] Hemoglobin measurementOrdere d By: Cruz Arciniega on 09-06-2024 Hemoglobin (Bld) [Mass/Vol] 13.2 g/dL 13.0-16.5 [facility] IgA [Mass/Vol]Ordered By: Ra parrish Babin on 09-06-2024 Immunoglobulin A 140 mg/dL 90-386 [facility] IgEOrdered By: Denys love on 09-06-2024 Immunoglobulin E 40 IU/mL 6-495 [facility] IgG [Mass/Vol]Ordered By: Ra senior Friend on 09-06-2024 Immunoglobulin G See comment [facility] Comment on above: TEST RESULTS LIMITSI mmunoglobulins A/E/G/M, Serum Immunoglobulin E, Total 40 IU/mL TESTING PERFORMED AT [facility]. ORIGINAL REPORT ON FILE IN LAB CONTAINS ADDITIONAL TEST SITE INFORMATION. Immunoglobulin G Total 888 mg/dL [phone] [facility] Comment on above: TEST RESULTS LIMITSI gG, Subclasses(1-4) IgG, Subclass 1 386 mg/dL 248-810 IgG, Subclass 2 276 mg/dL 130-555 IgG, Subclass 3 40 mg/dL 15-102 IgG, Subclass 4 89 mg/dL 2-96 TESTING PERFORMED AT [facility]. ORIGINAL REPORT ON FILE IN LAB CONTAINS ADDITIONAL TEST SITE INFORMATION. Previous reported result: mg/dLEdited by: MODESTA on 09/14/24:921 AMENDED REPORT 09/14/24921 IGG, QUANT previously reported as: TEST RESULTS LIMITSIgG, Subclasses(1-4) IgG, Subclass 1 386 mg/dL 248-810 IgG, Subclass 2 276 mg/dL 130-555 IgG, Subclass 3 40 mg/dL 15-102 IgG, Subclass 4 89 mg/dL 2-96 TESTING PERFORMED AT [facility]. ORIGINAL REPORT ON FILE IN LAB CONTAINS ADDITIONAL TEST SITE INFORMATION. IgG subclass 1 (S) [Mass/Vol ]Ordered By: Denys Babin on 09-06-2024 Immunoglobulin G1 386 mg/dL 248-810 [facility] IgG subclass 2 (S) [Mass/Vol ]Ordered By: Denys Babin on 09-06-2024 Immunoglobulin G2 276 mg/dL 130-555 [facility] IgG subclass 3 (S) [Mass/Vol ]Ordered By: Denys Babin on 09-06-2024 Immunoglobulin G3 40 mg/dL 15-102 [facility] Immunoglobulin G4 measuremen tOrdered By: Denys Babin on 09-06-2024 Immunoglobulin G4 89 mg/dL 2-96 [facility] Immunoglobulin M measurement Ordered By: Denys Babin on 09-06-2024 Immunoglobulin M 42 mg/dL 20-172 [facility] Tessa-1 antibody assayOrdered B y: Denys Babin on 09-06-2024 TESSA-1 Antibody <0.2 AI 0.0-0.9 [facility] MCV (mean corpuscular volume ) determinationOrdered By: Cruz Arciniega on 09-06-2024 MCV (RBC) [Entitic vol] 88.7 fL 80-94 [facility] MRCP Abdomen without Contras ton 09-06-2024 MRCP Abdomen without Contrast Normal [facility] Magnesiumon 09-06-2024 Magnesium [Mass/Vol] 2.1 mg/dL Normal 1.6-2.6 [facility] Comment on above: Performed By: #### L 500.4050, L501.5200, L501.2300 ####[facility] [address] [place], [address] Magnesium measurementOrdered By: Seth Stein on 09-06-2024 Magnesium [Mass/Vol] 2.1 mg/dL 1.6-2.6 [facility] Mean corpuscular hemoglobin (MCH) determinationOrdered By: Cruz Arciniega on 09-06-2024 MCH (RBC) [Entitic mass] 30.3 pg 27.0-32.0 [facility] Mean corpuscular hemoglobin concentration (MCHC) determinationOrdered By: Cruz Arciniega on 09-06-2024 MCHC (RBC) [Mass/Vol] 34.2 g/dL 32-36 [facility] Mean platelet volume determi nationOrdered By: Cruz Arciniega on 09-06-2024 Platelet mean volume (Bld) [Entitic vol] 9.5 fL 6.2-12.0 [facility] Neutrophil cytoplasmic Ab.cl assic Qn (S)Ordered By: Denys Babin on 09-06-2024 Cytoplasmic ANCA (c-ANCA) Antibody <1:20 titer Neg:<1:20 [facility] Comment on above: Note: Specimen [...] up testing of positive sera with both MO-3 and MPO-ANCA enzyme immunoassays. As many as 5% serum samples are positive only by EIA.Ref. AM J Clin Pathol 1999;111:507-513.Atypical pANCA <1:20 titer Neg:<1:20 Note: Specimen is icteric.The atypical pANCA pattern has been observed in a significantpercentage of patients with ulcerative colitis, primary sclerosing cholangitis and autoimmune hepatitis. [facility] ORIGINAL REPORT ON FILE IN LAB CONTAINS ADDITIONAL TEST SITE INFORMATION. Neutrophil cytoplasmic Ab.pe rinuclear IF (S) [Titer]Ordered By: Denys Babin on 09-06-2024 Perinuclear ANCA (p-ANCA) Antibody <1:20 titer Neg:<1:20 [facility] Comment on above: Note: Specimen is ic teric.The presence of positive fluorescence exhibiting P-ANCA orC-ANCA patterns alone is not specific for the diagnosis ofWegener's Granulomatosis (WG) or microscopic polyangiitis.Decisions about treatment should not be based solely onANCA IFA results. The International ANCA Group Consensusrecommends follow up testing of positive sera with both MO-3 and MPO-ANCA enzyme immunoassays. As many as 5% serumsamples are positive only by EIA. Ref. AM J Clin Zwksai7389;111:507-513. Phosphoruson 09-06-2024 Phosphate [Mass/Vol] 3.2 mg/dL Normal 2.5-4.9 [facility] Comment on above: Performed By: #### L 500.4050, L501.5200, L501.2300 ####[facility] [address] [place], [address] Phosphorus measurementOrdere d By: Seth Stein on 09-06-2024 Phosphorus Level 3.2 mg/dL 2.5-4.9 [facility] Platelet countOrdered By: Zaire Arciniega on 09-06-2024 Platelets (Bld) [#/Vol] 291 10*3/uL 150-450 [facility] RBC Auto (Bld) [#/Vol]Ordere d By: Cruz Arciniega on 09-06-2024 RBC (Bld) [#/Vol] 4.35 10*6/uL Low 4.6-6.2 [facility] SPLICER MACHINE OPERATOR abOrdered By: Denys Mercado iend on 09-06-2024 SPLICER MACHINE OPERATOR Antibody <0.2 AI 0.0-0.9 [facility] SCL-70 extractable nuclear A b Qn (S)Ordered By: Denys Babin on 09-06-2024 Scl-70 (Scleroderma) Antibody <0.2 AI 0.0-0.9 [facility] SS-A IgG antibody assayOrder ed By: Denys Babin on 09-06-2024 SS-A/Ro IgG Antibody < 0.2 AI 0.0-0.9 [facility] SS-B IgG antibody assayOrder ed By: Denys Babin on 09-06-2024 SS-B/La IgG Antibody < 0.2 AI 0.0-0.9 [facility] Batista antibody assayOrdered By: Denys Babin on 09-06-2024 SM Antibody <0.2 AI 0.0-0.9 [facility] White blood cell (WBC) count Ordered By: Cruz Arciniega on 09-06-2024 WBC (Bld) [#/Vol] 6.8 10*3/uL 4.4-11.0 [facility] 12 Lead EKGon 09-05-2024 12 Lead EKG Normal [facility] Absolute neutrophil countOrd ered By: Denys Babin on 09-05-2024 Neutrophils (Bld) [#/Vol] 7.0 10*3/uL 2.0-7.7 [facility] Basophil percentageOrdered B y: Denys Babin on 09-05-2024 Basophils/100 WBC (Bld) 0.7 % 0-1 [facility] CBC W/Diff, Automatedon Absolute Lymph 0.63 X10 3/uL Low 0.83-4.51 [facility] Comment on above: Performed By: #### L 100.0100, L500.4050, L300.3900 ####[facility] [address] [place], [address] Absolute Neut 7.0 X10 3/uL Normal 2.0-7.7 [facility] Comment on above: Performed By: #### L 100.0100, L500.4050, L300.3900 ####[facility] [address] [place], [address] Basophils/100 WBC (Bld) 0.7 % Normal 0-1 [facility] Comment on above: Performed By: #### L 100.0100, L500.4050, L300.3900 ####[facility] [address] [place], [address] Eosinophils/100 WBC (Bld) 0.7 % Normal 0-5 [facility] Comment on above: Performed By: #### L 100.0100, L500.4050, L300.3900 ####[facility] [address] [place], [address] Erythrocyte distribution width (RBC) [Ratio] 16.8 % High 11.6-14.6 [facility] Comment on above: Performed By: #### L 100.0100, L500.4050, L300.3900 ####[facility] [address] [place], [address] Hematocrit (Bld) [Volume fraction] 39.7 % Low 40-54 [facility] Comment on above: Performed By: #### L 100.0100, L500.4050, L300.3900 ####[facility] [address] [place], [address] Hemoglobin (Bld) [Mass/Vol] 13.4 g/dL Normal 13.0-16.5 [facility] Comment on above: Performed By: #### L 100.0100, L500.4050, L300.3900 ####[facility] [address] [place], [address] IG% 0.700 Normal 0.0-0.9 [facility] Comment on above: Result Comment: IG% - Immature Granulocytes (promyelocytes, myelocytes andmetamyelocytes) > 1% indicates that a LEFT SHIFT is Present. Performed By: #### L 100.0100, L500.4050, L300.3900 ####[facility] [address] [place], [address] Lymphocytes/100 WBC (Bld) 7.6 % Low 19-41 [facility] Comment on above: Performed By: #### L 100.0100, L500.4050, L300.3900 ####[facility] [address] [place], [address] MCH (RBC) [Entitic mass] 30.0 pg Normal 27.0-32.0 [facility] Comment on above: Performed By: #### L 100.0100, L500.4050, L300.3900 ####[facility] [address] [place], [address] MCHC (RBC) [Mass/Vol] 33.8 g/dL Normal 32-36 [facility] Comment on above: Performed By: #### L 100.0100, L500.4050, L300.3900 ####[facility] [address] [place], [address] MCV (RBC) [Entitic vol] 89.0 fL Normal 80-94 [facility] Comment on above: Performed By: #### L 100.0100, L500.4050, L300.3900 ####[facility] [address] [place], [address] Monocytes/100 WBC (Bld) 5.9 % Normal 0-10 [facility] Comment on above: Performed By: #### L 100.0100, L500.4050, L300.3900 ####[facility] [address] [place], [address] Neutrophils/100 WBC (Bld) 84.4 % High 47-70 [facility] Comment on above: Performed By: #### L 100.0100, L500.4050, L300.3900 ####[facility] [address] [place], [address] Nucleated RBC (Bld) [#/Vol] 0 10*3/uL Normal 0-5 [facility] Comment on above: Performed By: #### L 100.0100, L500.4050, L300.3900 ####[facility] [address] [place], [address] Platelet mean volume (Bld) [Entitic vol] 9.5 fL Normal 6.2-12.0 [facility] Comment on above: Performed By: #### L 100.0100, L500.4050, L300.3900 ####[facility] [address] [place], [address] Platelets (Bld) [#/Vol] 322 10*3/uL Normal 150-450 [facility] Comment on above: Performed By: #### L 100.0100, L500.4050, L300.3900 ####[facility] [address] [place], [address] RBC (Bld) [#/Vol] 4.46 10*6/uL Low 4.6-6.2 [facility] Comment on above: Performed By: #### L 100.0100, L500.4050, L300.3900 ####[facility] [address] [place], [address] RDW SD 54.4 fl High 35.1-43.9 [facility] Comment on above: Performed By: #### L 100.0100, L500.4050, L300.3900 ####[facility] [address] [place], [address] WBC (Bld) [#/Vol] 8.3 10*3/uL Normal 4.4-11.0 [facility] Comment on above: Performed By: #### L 100.0100, L500.4050, L300.3900 ####[facility] [address] [place], [address] Absolute Lymph 0.94 X10 3/uL Normal 0.83-4.51 [facility] Comment on above: Performed By: #### L 501.2300, L501.5200, L500.4050, L100.0100 ####[facility] [address] [place], [address] Absolute Neut 2.0 X10 3/uL Normal 2.0-7.7 [facility] Comment on above: Performed By: #### L 501.2300, L501.5200, L500.4050, L100.0100 ####[facility] [address] [place], [address] Basophils/100 WBC (Bld) 1.4 % High 0-1 [facility] Comment on above: Performed By: #### L 501.2300, L501.5200, L500.4050, L100.0100 ####[facility] [address] [place], [address] Eosinophils/100 WBC (Bld) 3.3 % Normal 0-5 [facility] Comment on above: Performed By: #### L 501.2300, L501.5200, L500.4050, L100.0100 ####[facility] [address] [place], [address] Erythrocyte distribution width (RBC) [Ratio] 16.7 % High 11.6-14.6 [facility] Comment on above: Performed By: #### L 501.2300, L501.5200, L500.4050, L100.0100 ####[facility] [address] [place], [address] Hematocrit (Bld) [Volume fraction] 37.2 % Low 40-54 [facility] Comment on above: Performed By: #### L 501.2300, L501.5200, L500.4050, L100.0100 ####[facility] [address] [place], [address] Hemoglobin (Bld) [Mass/Vol] 12.3 g/dL Low 13.0-16.5 [facility] Comment on above: Performed By: #### L 501.2300, L501.5200, L500.4050, L100.0100 ####[facility] [address] [place], [address] IG% 1.400 High 0.0-0.9 [facility] Comment on above: Result Comment: IG% - Immature Granulocytes (promyelocytes, myelocytes andmetamyelocytes) > 1% indicates that a LEFT SHIFT is Present. Performed By: #### L 501.2300, L501.5200, L500.4050, L100.0100 ####[facility] [address] [place], [address] Lymphocytes/100 WBC (Bld) 25.8 % Normal 19-41 [facility] Comment on above: Performed By: #### L 501.2300, L501.5200, L500.4050, L100.0100 ####[facility] [address] [place], [address] MCH (RBC) [Entitic mass] 29.4 pg Normal 27.0-32.0 [facility] Comment on above: Performed By: #### L 501.2300, L501.5200, L500.4050, L100.0100 ####[facility] [address] [place], [address] MCHC (RBC) [Mass/Vol] 33.1 g/dL Normal 32-36 [facility] Comment on above: Performed By: #### L 501.2300, L501.5200, L500.4050, L100.0100 ####[facility] [address] [place], [address] MCV (RBC) [Entitic vol] 89.0 fL Normal 80-94 [facility] Comment on above: Performed By: #### L 501.2300, L501.5200, L500.4050, L100.0100 ####[facility] [address] [place], [address] Monocytes/100 WBC (Bld) 12.6 % High 0-10 [facility] Comment on above: Performed By: #### L 501.2300, L501.5200, L500.4050, L100.0100 ####[facility] [address] [place], [address] Neutrophils/100 WBC (Bld) 55.5 % Normal 47-70 [facility] Comment on above: Performed By: #### L 501.2300, L501.5200, L500.4050, L100.0100 ####[facility] [address] [place], [address] Nucleated RBC (Bld) [#/Vol] 0 10*3/uL Normal 0-5 [facility] Comment on above: Performed By: #### L 501.2300, L501.5200, L500.4050, L100.0100 ####[facility] [address] [place], [address] Platelet mean volume (Bld) [Entitic vol] 9.8 fL Normal 6.2-12.0 [facility] Comment on above: Performed By: #### L 501.2300, L501.5200, L500.4050, L100.0100 ####[facility] [address] [place], [address] Platelets (Bld) [#/Vol] 269 10*3/uL Normal 150-450 [facility] Comment on above: Performed By: #### L 501.2300, L501.5200, L500.4050, L100.0100 ####[facility] [address] [place], [address] RBC (Bld) [#/Vol] 4.18 10*6/uL Low 4.6-6.2 [facility] Comment on above: Performed By: #### L 501.2300, L501.5200, L500.4050, L100.0100 ####[facility] [address] [place], [address] RDW SD 54.4 fl High 35.1-43.9 [facility] Comment on above: Performed By: #### L 501.2300, L501.5200, L500.4050, L100.0100 ####[facility] [address] [place], [address] WBC (Bld) [#/Vol] 3.7 10*3/uL Low 4.4-11.0 [facility] Comment on above: Performed By: #### L 501.2300, L501.5200, L500.4050, L100.0100 ####[facility] [address] [place], [address] Comprehensive Metabolic Prof [facility] 09-05-2024 Albumin [Mass/Vol] 3.1 g/dL Low 3.2-5.0 [facility] Comment on above: Performed By: #### L 100.0100, L500.4050, L300.3900 ####[facility] [address] [place], [address] Albumin/Globulin [Mass ratio] 1.0 {ratio} Normal 0.9-2.4 [facility] Comment on above: Performed By: #### L 100.0100, L500.4050, L300.3900 ####[facility] [address] [place], [address] ALK P 183 U/L High 45-117 [facility] Comment on above: Performed By: #### L 100.0100, L500.4050, L300.3900 ####[facility] [address] [place], [address] ALT [Catalytic activity/Vol] 71 U/L High 16-61 [facility] Comment on above: Performed By: #### L 100.0100, L500.4050, L300.3900 ####[facility] [address] [place], [address] AST [Catalytic activity/Vol] 72 U/L High 15-37 [facility] Comment on above: Result Comment: Slig ht Hemolysis, Result may be falsely increased. Performed By: #### L 100.0100, L500.4050, L300.3900 ####[facility] [address] [place], [address] Bilirubin [Mass/Vol] 22.10 mg/dL Invalid Interpretation Code 0.20-1.00 [facility] Comment on above: Result Comment: Crit ical Result(s) Called at: 16:27:09 09/05/2024 by: VU BREWSTER. Results read back by same. For patients on eltrombopag therapy, use of Dimension [place] TBIL is not recommended. Performed By: #### L 100.0100, L500.4050, L300.3900 ####[facility] [address] [place], [address] BUN/CRE 8.8 RATIO Low 10-20 [facility] Comment on above: Performed By: #### L 100.0100, L500.4050, L300.3900 ####[facility] [address] [place], [address] CA,Total 9.3 mg/dL Normal 8.5-10.1 [facility] Comment on above: Performed By: #### L 100.0100, L500.4050, L300.3900 ####[facility] [address] [place], [address] Chloride [Moles/Vol] 107 mmol/L Normal 98-107 [facility] Comment on above: Performed By: #### L 100.0100, L500.4050, L300.3900 ####[facility] [address] [place], [address] CO2 [Moles/Vol] 24.0 mmol/L Normal 21.0-32.0 [facility] Comment on above: Performed By: #### L 100.0100, L500.4050, L300.3900 ####[facility] [address] [place], [address] Creatinine [Mass/Vol] 1.13 mg/dL Normal 0.70-1.30 [facility] Comment on above: Result Comment: Mode rate Icterus, Result may be falsely decreased.The validity of the calculated GFR GFRAA in patients over70 years has not been determined. Clinical correlation isessential. Performed By: #### L 100.0100, L500.4050, L300.3900 ####[facility] [address] [place], [address] ECRCL 98.71 ml/min Normal [facility] Comment on above: Performed By: #### L 100.0100, L500.4050, L300.3900 ####[facility] [address] [place], [address] EST GFR - AA 92 mL/min Normal >60 [facility] Comment on above: Result Comment: Afri can Egyptian GFR Calc Performed By: #### L 100.0100, L500.4050, L300.3900 ####[facility] [address] [place], [address] GAP 8 Normal 5-15 [facility] Comment on above: Performed By: #### L 100.0100, L500.4050, L300.3900 ####[facility] [address] [place], [address] GFR/1.73 sq M.predicted among non-blacks MDRD (S/P/Bld) [Vol rate/Area] 76 mL/min/{1.73_m2} Normal >60 [facility] Comment on above: Result Comment: Non- GFR Calc Performed By: #### L 100.0100, L500.4050, L300.3900 ####[facility] [address] [place], [address] Globulin (S) [Mass/Vol] 3.0 g/dL Normal 2.2-4.2 [facility] Comment on above: Performed By: #### L 100.0100, L500.4050, L300.3900 ####[facility] [address] [place], [address] Glucose [Mass/Vol] 104 mg/dL Normal 74-106 [facility] Comment on above: Result Comment: Fast ing Glucose result from 100 to 125 mg/dLsuggests IMPAIRED HOMEOSTASIS per A.D.A. criteria. Performed By: #### L 100.0100, L500.4050, L300.3900 ####[facility] [address] [place], [address] Potassium [Moles/Vol] 4.4 mmol/L Normal 3.5-5.1 [facility] Comment on above: Result Comment: Slig ht Hemolysis, Result may be falsely increased. Performed By: #### L 100.0100, L500.4050, L300.3900 ####[facility] [address] [place], [address] Sodium [Moles/Vol] 140 mmol/L Normal 136-145 [facility] Comment on above: Performed By: #### L 100.0100, L500.4050, L300.3900 ####[facility] [address] [place], [address] T PROT 6.1 g/dL Low 6.4-8.2 [facility] Comment on above: Result Comment: Mode rate Icterus, Result may be falsely decreased. Performed By: #### L 100.0100, L500.4050, L300.3900 ####[facility] [address] [place], [address] Urea nitrogen [Mass/Vol] 10 mg/dL Normal 7-18 [facility] Comment on above: Performed By: #### L 100.0100, L500.4050, L300.3900 ####[facility] [address] [place], [address] Albumin [Mass/Vol] 2.7 g/dL Low 3.2-5.0 [facility] Comment on above: Performed By: #### L 501.2300, L501.5200, L500.4050, L100.0100 ####[facility] [address] [place], [address] Albumin/Globulin [Mass ratio] 0.9 {ratio} Normal 0.9-2.4 [facility] Comment on above: Performed By: #### L 501.2300, L501.5200, L500.4050, L100.0100 ####[facility] [address] [place], [address] ALK P 153 U/L High 45-117 [facility] Comment on above: Performed By: #### L 501.2300, L501.5200, L500.4050, L100.0100 ####[facility] [address] [place], [address] ALT [Catalytic activity/Vol] 57 U/L Normal 16-61 [facility] Comment on above: Performed By: #### L 501.2300, L501.5200, L500.4050, L100.0100 ####[facility] [address] [place], [address] AST [Catalytic activity/Vol] 55 U/L High 15-37 [facility] Comment on above: Performed By: #### L 501.2300, L501.5200, L500.4050, L100.0100 ####[facility] [address] [place], [address] Bilirubin [Mass/Vol] 19.20 mg/dL Invalid Interpretation Code 0.20-1.00 [facility] Comment on above: Result Comment: Crit ical Result(s) Called at: 06:08:04 09/05/2024 by: CRISTIANO to Sadaf Kate. Results read back by same. For patients on eltrombopag therapy, use of Dimension [place] TBIL is not recommended. Performed By: #### L 501.2300, L501.5200, L500.4050, L100.0100 ####[facility] [address] [place], [address] BUN/CRE 9.8 RATIO Low 10-20 [facility] Comment on above: Performed By: #### L 501.2300, L501.5200, L500.4050, L100.0100 ####[facility] [address] [place], [address] CA,Total 9.0 mg/dL Normal 8.5-10.1 [facility] Comment on above: Performed By: #### L 501.2300, L501.5200, L500.4050, L100.0100 ####[facility] [address] [place], [address] Chloride [Moles/Vol] 107 mmol/L Normal 98-107 [facility] Comment on above: Performed By: #### L 501.2300, L501.5200, L500.4050, L100.0100 ####[facility] [address] [place], [address] CO2 [Moles/Vol] 25.0 mmol/L Normal 21.0-32.0 [facility] Comment on above: Performed By: #### L 501.2300, L501.5200, L500.4050, L100.0100 ####[facility] [address] [place], [address] Creatinine [Mass/Vol] 1.02 mg/dL Normal 0.70-1.30 [facility] Comment on above: Result Comment: Mode rate Icterus, Result may be falsely decreased.The validity of the calculated GFR GFRAA in patients over70 years has not been determined. Clinical correlation isessential. Performed By: #### L 501.2300, L501.5200, L500.4050, L100.0100 ####[facility] [address] [place], [address] ECRCL 109.35 ml/min Normal [facility] Comment on above: Performed By: #### L 501.2300, L501.5200, L500.4050, L100.0100 ####[facility] [address] [place], [address] EST GFR - AA 104 mL/min Normal >60 [facility] Comment on above: Result Comment: Afri can Egyptian GFR Calc Performed By: #### L 501.2300, L501.5200, L500.4050, L100.0100 ####[facility] [address] [place], [address] GAP 6 Normal 5-15 [facility] Comment on above: Performed By: #### L 501.2300, L501.5200, L500.4050, L100.0100 ####[facility] [address] [place], [address] GFR/1.73 sq M.predicted among non-blacks MDRD (S/P/Bld) [Vol rate/Area] 86 mL/min/{1.73_m2} Normal >60 [facility] Comment on above: Result Comment: Non- GFR Calc Performed By: #### L 501.2300, L501.5200, L500.4050, L100.0100 ####[facility] [address] [place], [address] Globulin (S) [Mass/Vol] 3.1 g/dL Normal 2.2-4.2 [facility] Comment on above: Performed By: #### L 501.2300, L501.5200, L500.4050, L100.0100 ####[facility] [address] [place], [address] Glucose [Mass/Vol] 93 mg/dL Normal 74-106 [facility] Comment on above: Performed By: #### L 501.2300, L501.5200, L500.4050, L100.0100 ####[facility] [address] [place], [address] Potassium [Moles/Vol] 3.7 mmol/L Normal 3.5-5.1 [facility] Comment on above: Performed By: #### L 501.2300, L501.5200, L500.4050, L100.0100 ####[facility] [address] [place], [address] Sodium [Moles/Vol] 138 mmol/L Normal 136-145 [facility] Comment on above: Performed By: #### L 501.2300, L501.5200, L500.4050, L100.0100 ####[facility] [address] [place], [address] T PROT 5.8 g/dL Low 6.4-8.2 [facility] Comment on above: Result Comment: Mode rate Icterus, Result may be falsely decreased. Performed By: #### L 501.2300, L501.5200, L500.4050, L100.0100 ####[facility] [address] [place], [address] Urea nitrogen [Mass/Vol] 10 mg/dL Normal 7-18 [facility] Comment on above: Performed By: #### L 501.2300, L501.5200, L500.4050, L100.0100 ####[facility] [address] [place], [address] ERCP Biliary/Pancreason 12-0 ERCP Biliary/Pancreas Normal [facility] Eosinophil percentageOrdered By: Denys Babin on 09-05-2024 Eosinophils/100 WBC (Bld) 0.7 % 0-5 [facility] High density lipoprotein (HD L) measurementOrdered By: Seth Stein on 09-05-2024 Cholesterol in HDL [Mass/Vol] 6 mg/dL Low >40 [facility] Comment on above: The drugs N-Acetylcy steine and Metamizole may falsely depress this assay. Reference Range HDL <40 mg/dL Low HDL Cholesterol HDL >or= 60 mg/dL High HDL Cholesterol Immature granulocytes/100 WB C Auto (Bld)Ordered By: Denys Babin on 09-05-2024 Immature granulocytes/100 WBC (Bld) 0.700 % 0.0-0.9 [facility] Comment on above: IG% - Immature Granu locytes (promyelocytes, myelocytes and metamyelocytes) > 1% indicates that a LEFT SHIFT is Present. International normalized rat io (INR) calculationOrdered By: Denys Babin on 09-05-2024 INR Coag (Bld) [Relative time] 0.9 {INR} [facility] LDHon 09-05-2024 LDH 133 U/L Normal 87-241 [facility] Comment on above: Performed By: #### L 504.2610, L3200.1100, L3300.0700, L3300.1200, L3200.0500 ####[facility] [address] [place], [address] Lactate dehydrogenase (LDH) measurementOrdered By: Denys Babin on 09-05-2024 LDH [Catalytic activity/Vol] 133 U/L 87-241 [facility] Lipid Profileon 09-05-2024 Cholesterol [Mass/Vol] 156 mg/dL Normal 200 [facility] Comment on above: Result Comment: Mode rate Icterus, Result may be falsely decreased. <200 mg/dL Desirable 200-240 mg/dL Borderline >240 mg/dL High Risk Performed By: #### L 500.4100 ####[facility] [address] [place], [address] Cholesterol in HDL [Mass/Vol] 6 mg/dL Low [facility] Comment on above: Result Comment: The drugs N-Acetylcysteine and Metamizole may falselydepress this assay. Reference Range HDL <40 mg/dL Low HDL Cholesterol HDL >or= 60 mg/dL High HDL Cholesterol Performed By: #### L 500.4100 ####[facility] [address] [place], [address] Cholesterol in LDL [Mass/Vol] 83 mg/dL Normal 0-130 [facility] Comment on above: Performed By: #### L 500.4100 ####[facility] [address] [place], [address] Cholesterol in VLDL [Mass/Vol] 67 mg/dL High 5-40 [facility] Comment on above: Performed By: #### L 500.4100 ####[facility] [address] [place], [place], [address] Triglyceride [Mass/Vol] 333 mg/dL High [facility] Comment on above: Result Comment: The drugs N-Acetylcysteine and Metamizole may falselydepress this assay.Moderate Icterus, Result may be falsely increased.Serum Triglycerides Reference Interval Normal <150 mg/dL Borderline high 150 - 199 mg/dL High 200 - 499 mg/dL Very High > or = 500 mg/dL Performed By: #### L 500.4100 ####[facility] [address] [place], [place], [address] Low density lipoprotein (LDL ) cholesterol measurementOrdered By: Seth Stein on 09-05-2024 Cholesterol in LDL [Mass/Vol] 83 mg/dL 0-130 [facility] Lymphocytes Auto (Unsp spec) [#/Vol]Ordered By: Denys Babin on 09-05-2024 Lymphocytes (Bld) [#/Vol] 0.63 10*3/uL Low 0.83-4.51 [facility] Lymphocytes/100 WBC Auto (Un sp spec)Ordered By: Denys Babin on 09-05-2024 Lymphocytes/100 WBC (Bld) 7.6 % Low 19-41 [facility] MR/POSTOP.ANEon 09-05-2024 MR/POSTOP.ANE Normal [facility] MR/EFRZFZOP7es 09-05-2024 MR/POSTOPAN2 Normal [facility] MR/POSTOPAN2 Normal [facility] Magnesiumon 09-05-2024 Magnesium [Mass/Vol] 2.2 mg/dL Normal 1.6-2.6 [facility] Comment on above: Performed By: #### L 501.2300, L501.5200, L500.4050, L100.0100 ####[facility] [address] [place], [place], [id number] Monocyte percentageOrdered B y: Denys Babin on 09-05-2024 Monocytes/100 WBC (Bld) 5.9 % 0-10 [facility] Neutrophil percentageOrdered By: Denys Babin on 09-05-2024 Neutrophils/100 WBC (Bld) 84.4 % High 47-70 [facility] Nucleated red blood cell per centageOrdered By: Denys Babin on 09-05-2024 Nucleated RBC/100 WBC (Bld) [Ratio] 0 % 0-5 [facility] Phosphoruson 09-05-2024 Phosphate [Mass/Vol] 3.8 mg/dL Normal 2.5-4.9 [facility] Comment on above: Performed By: #### L 501.2300, L501.5200, L500.4050, L100.0100 ####[facility] [address] [place], [address] Prothrombin Time w/INRon INR Coag (PPP) [Relative time] 0.9 {INR} Normal [facility] Comment on above: Performed By: #### L 100.0100, L500.4050, L300.3900 ####[facility] [address] [place], [address] PT Coag (PPP) [Time] 11.9 s Normal 11.7-14.9 [facility] Comment on above: Performed By: #### L 100.0100, L500.4050, L300.3900 ####[facility] [address] [place], [address] Prothrombin timeOrdered By: eDnys Babin on 09-05-2024 PT Coag (PPP) [Time] 11.9 s 11.7-14.9 [facility] Serum or plasma cholesterol measurement (mass/volume)Ordered By: Seth Stein on 09-05-2024 Cholesterol [Mass/Vol] 156 mg/dL <200 [facility] Comment on above: Moderate Icterus, Re sult may be falsely decreased. <200 mg/dL Desirable 200-240 mg/dL Borderline >240 mg/dL High Risk Triglycerides measurementOrd ered By: Seth Stein on 09-05-2024 Triglyceride [Mass/Vol] 333 mg/dL High <199 [facility] Comment on above: The drugs [...] 09-05-2024 VLDL Cholesterol 67 mg/dL High 5-40 [facility] Abdomen/Pelvis W IV Cont ONL Yon 2024 Abdomen/Pelvis W IV Cont ONLY Normal [facility] Bilirubin Test strip Ql (U)O rdered By: Rod Ross on 2024 Bilirubin Ql (U) Negative Negative [facility] Bilirubin directOrdered By: Ita Cueto on 2024 Bilirubin.direct [Mass/Vol] 20.11 mg/dL High 0.00-0.30 [facility] Comment on above: Critical Result(s) C alled at: 20:11:53 2024 by: JAX COOK. Results read back by Gertrude MIGUEL Bilirubin, Directon 09-04-20 24 Bilirubin.direct [Mass/Vol] 20.11 mg/dL High 0.00-0.30 [facility] Comment on above: Result Comment: Crit ical Result(s) Called at: 20:11:53 2024 by: STEPHAN. Results read back by Gertrude MIGUEL Performed By: #### L 501.8270 ####[facility] [address] [place], [place], [address] CBC W/Diff, Automatedon - Absolute Lymph 1.03 X10 3/uL Normal 0.83-4.51 [facility] Comment on above: Performed By: #### L 500.4050, L100.0100 ####[facility] [address] [place], [address] Absolute Neut 3.5 X10 3/uL Normal 2.0-7.7 [facility] Comment on above: Performed By: #### L 500.4050, L100.0100 ####[facility] [address] [place], [address] Basophils/100 WBC (Bld) 1.1 % High 0-1 [facility] Comment on above: Performed By: #### L 500.4050, L100.0100 ####[facility] [address] [place], [address] Eosinophils/100 WBC (Bld) 2.9 % Normal 0-5 [facility] Comment on above: Performed By: #### L 500.4050, L100.0100 ####[facility] [address] [place], [address] Erythrocyte distribution width (RBC) [Ratio] 16.2 % High 11.6-14.6 [facility] Comment on above: Performed By: #### L 500.4050, L100.0100 ####[facility] [address] [place], [address] Hematocrit (Bld) [Volume fraction] 43.1 % Normal 40-54 [facility] Comment on above: Performed By: #### L 500.4050, L100.0100 ####[facility] [address] [place], [address] Hemoglobin (Bld) [Mass/Vol] 14.3 g/dL Normal 13.0-16.5 [facility] Comment on above: Performed By: #### L 500.4050, L100.0100 ####[facility] [address] [place], [address] IG% 1.600 High 0.0-0.9 [facility] Comment on above: Result Comment: IG% - Immature Granulocytes (promyelocytes, myelocytes andmetamyelocytes) > 1% indicates that a LEFT SHIFT is Present. Performed By: #### L 500.4050, L100.0100 ####[facility] [address] [place], [address] Lymphocytes/100 WBC (Bld) 18.8 % Low 19-41 [facility] Comment on above: Performed By: #### L 500.4050, L100.0100 ####[facility] [address] [place], [address] MCH (RBC) [Entitic mass] 30.0 pg Normal 27.0-32.0 [facility] Comment on above: Performed By: #### L 500.4050, L100.0100 ####[facility] [address] [place], [address] MCHC (RBC) [Mass/Vol] 33.2 g/dL Normal 32-36 [facility] Comment on above: Performed By: #### L 500.4050, L100.0100 ####[facility] [address] [place], [address] MCV (RBC) [Entitic vol] 90.4 fL Normal 80-94 [facility] Comment on above: Performed By: #### L 500.4050, L100.0100 ####[facility] [address] [place], [address] Monocytes/100 WBC (Bld) 12.4 % High 0-10 [facility] Comment on above: Performed By: #### L 500.4050, L100.0100 ####[facility] [address] [place], [address] Neutrophils/100 WBC (Bld) 63.2 % Normal 47-70 [facility] Comment on above: Performed By: #### L 500.4050, L100.0100 ####[facility] [address] [place], [address] Nucleated RBC (Bld) [#/Vol] 0 10*3/uL Normal 0-5 [facility] Comment on above: Performed By: #### L 500.4050, L100.0100 ####[facility] [id number] [place], [address] Platelet mean volume (Bld) [Entitic vol] 9.5 fL Normal 6.2-12.0 [facility] Comment on above: Performed By: #### L 500.4050, L100.0100 ####[facility] [id number] [place], [address] Platelets (Bld) [#/Vol] 325 10*3/uL Normal 150-450 [facility] Comment on above: Performed By: #### L 500.4050, L100.0100 ####[facility] [id number] [place], [address] RBC (Bld) [#/Vol] 4.77 10*6/uL Normal 4.6-6.2 [facility] Comment on above: Performed By: #### L 500.4050, L100.0100 ####[facility] [id number] [place], [address] RDW SD 54.2 fl High 35.1-43.9 [facility] Comment on above: Performed By: #### L 500.4050, L100.0100 ####[facility] [id number] [place], [address] WBC (Bld) [#/Vol] 5.5 10*3/uL Normal 4.4-11.0 [facility] Comment on above: Performed By: #### L 500.4050, L100.0100 ####[facility] [id number] [place], [address] Comprehensive Metabolic Prof ilon 2024 Albumin [Mass/Vol] 3.7 g/dL Normal 3.2-5.0 [facility] Comment on above: Performed By: #### L 500.4050, L100.0100 ####[facility] [facility] [address] [place], [address] Albumin/Globulin [Mass ratio] 0.9 {ratio} Normal 0.9-2.4 [facility] Comment on above: Performed By: #### L 500.4050, L100.0100 ####[facility] [address] [place], [address] ALK P 199 U/L High 45-117 [facility] Comment on above: Performed By: #### L 500.4050, L100.0100 ####[facility] [address] [place], [address] ALT [Catalytic activity/Vol] 78 U/L High 16-61 [facility] Comment on above: Performed By: #### L 500.4050, L100.0100 ####[facility] [address] [place], [address] AST [Catalytic activity/Vol] 68 U/L High 15-37 [facility] Comment on above: Performed By: #### L 500.4050, L100.0100 ####[facility] [address] [place], [address] Bilirubin [Mass/Vol] 23.90 mg/dL Invalid Interpretation Code 0.20-1.00 [facility] Comment on above: Result Comment: Crit ical Result(s) Called at: 19:05:27 2024 by: STEPHAN. Results read back by Vaishnavi For patients on eltrombopag therapy, use of Dimension [place] TBIL is not recommended. Performed By: #### L 500.4050, L100.0100 ####[facility] [address] [place], [address] BUN/CRE 11.5 RATIO Normal 10-20 [facility] Comment on above: Performed By: #### L 500.4050, L100.0100 ####[facility] [address] [place], [address] CA,Total 9.8 mg/dL Normal 8.5-10.1 [facility] Comment on above: Performed By: #### L 500.4050, L100.0100 ####[facility] [address] [place], [address] Chloride [Moles/Vol] 102 mmol/L Normal 98-107 [facility] Comment on above: Performed By: #### L 500.4050, L100.0100 ####[facility] [address] [place], [address] CO2 [Moles/Vol] 28.0 mmol/L Normal 21.0-32.0 [facility] Comment on above: Performed By: #### L 500.4050, L100.0100 ####[facility] [address] [place], [address] Creatinine [Mass/Vol] 1.13 mg/dL Normal 0.70-1.30 [facility] Comment on above: Result Comment: Mode rate Icterus, Result may be falsely decreased.The validity of the calculated GFR GFRAA in patients over70 years has not been determined. Clinical correlation isessential. Performed By: #### L 500.4050, L100.0100 ####[facility] [address] [place], [address] ECRCL 99.11 ml/min Normal [facility] Comment on above: Performed By: #### L 500.4050, L100.0100 ####[facility] [address] [place], [address] EST GFR - AA 92 mL/min Normal >60 [facility] Comment on above: Result Comment: Afri can Egyptian GFR Calc Performed By: #### L 500.4050, L100.0100 ####[facility] [address] [place], [address] GAP 8 Normal 5-15 [facility] Comment on above: Performed By: #### L 500.4050, L100.0100 ####[facility] [address] [place], [address] GFR/1.73 sq M.predicted among non-blacks MDRD (S/P/Bld) [Vol rate/Area] 76 mL/min/{1.73_m2} Normal >60 [facility] Comment on above: Result Comment: Non- GFR Calc Performed By: #### L 500.4050, L100.0100 ####[facility] [address] [place], [address] Globulin (S) [Mass/Vol] 3.9 g/dL Normal 2.2-4.2 [facility] Comment on above: Performed By: #### L 500.4050, L100.0100 ####[facility] [address] [place], [address] Glucose [Mass/Vol] 105 mg/dL Normal 74-106 [facility] Comment on above: Result Comment: Fast ing Glucose result from 100 to 125 mg/dLsuggests IMPAIRED HOMEOSTASIS per A.D.A. criteria. Performed By: #### L 500.4050, L100.0100 ####[facility] [address] [place], [address] Potassium [Moles/Vol] 3.9 mmol/L Normal 3.5-5.1 [facility] Comment on above: Performed By: #### L 500.4050, L100.0100 ####[facility] [address] [place], [address] Sodium [Moles/Vol] 138 mmol/L Normal 136-145 [facility] Comment on above: Performed By: #### L 500.4050, L100.0100 ####[facility] [address] [place], [address] T PROT 7.6 g/dL Normal 6.4-8.2 [facility] Comment on above: Result Comment: Mode rate Icterus, Result may be falsely decreased. Performed By: #### L 500.4050, L100.0100 ####[facility] [address] [place], [address] Urea nitrogen [Mass/Vol] 13 mg/dL Normal 7-18 [facility] Comment on above: Performed By: #### L 500.4050, L100.0100 ####[facility] [address] [place], [address] Emergency Department Summary on 2024 Emergency Department Summary Normal [facility] Epithelial cells.squamous LM Ql (Urine sed)Ordered By: Rod Ross on 2024 Epithelial cells.squamous LM.HPF (Urine sed) [#/Area] 0 /[HPF] 0-5 [facility] Gallbladderon 2024 Gallbladder Normal [facility] Glucose Ql (U)Ordered By: Chase Ross on 2024 Urine Glucose (UA) Normal mg/dl Normal [facility] H AND P Exam - Hospitaliston 2024 H&P Exam - Hospitalist Normal [facility] Hemoglobin A1con 2024 HbA1c (Bld) [Mass fraction] 4.8 % Normal 3.8-5.6 [facility] Comment on above: Result Comment: Norm al < 5.7 % Prediabetic 5.7 - 6.4 % Diabetic >or= 6.5 % Please note range changes. Performed By: #### L 501.9587, L501.9928 ####[facility] [address] [place], [address] Hemoglobin A1c percentageOrd ered By: Seth Stein on 2024 HbA1c (Bld) [Mass fraction] 4.8 % 3.8-5.6 [facility] Comment on above: Normal < 5.7 % Predi abetic 5.7 - 6.4 % Diabetic >or= 6.5 % Please note range changes. Ketones Test strip Ql (U)Ord ered By: Rod Ross on 2024 Ketones Ql (U) Negative Negative [facility] Lipaseon 2024 Lipase [Catalytic activity/Vol] 43 U/L Normal 13-75 [facility] Comment on above: Result Comment: Sully delaney note:LIPASE revised reference range effective 23.New Lipase methodology. Expected to produce lower valuesthan the previous assay method.NEW Reference Range: 13 - 75 U/L Performed By: #### L 501.2450 ####[facility] [address] [place], [place], [phone] Lipase measurementOrdered By : Ita Cueto on 2024 Lipase [Catalytic activity/Vol] 43 U/L 13-75 [facility] Comment on above: Please note:LIPASE r evised reference range effective 23. New Lipase methodology. Expected to produce lower values than the previous assay method. NEW Reference Range: 13 - 75 U/L Lipid Profileon 2024 HDL Normal [facility] Comment on above: Result Comment: DUPL ICATE,UNABLE TO UNRECIEVEThe drugs N-Acetylcysteine and Metamizole may falselydepress this assay. Performed By: #### L 500.4100 ####[facility] [address] [place], [address] TRIG Normal [facility] Comment on above: Result Comment: DUPL ICATE,UNABLE TO UNRECIEVEThe drugs N-Acetylcysteine and Metamizole may falselydepress this assay. Performed By: #### L 500.4100 ####[facility] [address] [place], [address] CHOL Normal 200 [facility] Comment on above: Result Comment: DUPL ICATE,UNABLE TO UNRECIEVE Performed By: #### L 500.4100 ####[facility] [address] [place], [address] LDL Normal 0-130 [facility] Comment on above: Result Comment: GORDON ICATE,UNABLE TO UNRECIEVE Performed By: #### L 500.4100 ####[facility] [address] [place], [address] VLDL Normal 5-40 [facility] Comment on above: Result Comment: CHARLOTTEL ICATE,UNABLE TO UNRECIEVE Performed By: #### L 500.4100 ####[facility] [address] [place], [place], [id number] MR/CON.PCM.GIon 2024 MR/CON.PCM.GI Normal [facility] Microscopic analysis of urin e for red blood cells (RBC)Ordered By: Rod Ross on 2024 Urine RBC 0 SEEN /hpf 0-5 [facility] Mucus LM Ql (Urine sed)Order ed By: Rod Ross on 2024 Mucus Ql (Urine sed) 0 SEEN /hpf [facility] Nitrite Test strip Ql (U)Ord ered By: Rod Ross on 2024 Nitrite Ql (U) Negative Negative [facility] Protein Test strip Ql (U)Ord ered By: Rod Ross on 2024 Protein Ql (U) Negative Negative [facility] Prothrombin Time w/INRon INR Coag (PPP) [Relative time] 0.9 {INR} Normal [facility] Comment on above: Performed By: #### L 300.3900 ####[facility] [address] [place], [address] PT Coag (PPP) [Time] 11.9 s Normal 11.7-14.9 [facility] Comment on above: Performed By: #### L 300.3900 ####[facility] [address] [place], [address] TSH QnOrdered By: Seth earl on 2024 Thyroid Stimulating Hormone (TSH) 0.545 uIU/mL 0.358-3.740 [facility] Thyroid Stim Hormone (TSH)on 2024 TSH 0.545 uIU/mL Normal 0.358-3.740 [facility] Comment on above: Performed By: #### L 501.9520, L501.9985 ####[facility] [address] [place], [address] Urinalysis, Completeon 09-04 BACTERIA 1+ /hpf Normal None Seen [facility] Comment on above: Order Comment: COLLE CTOR TO SPECIFY Performed By: #### L 400.0001 ####[facility] [address] [place], [address] BILIRUBIN URINE Negative Normal Negative [facility] Comment on above: Order Comment: COLLE CTOR TO SPECIFY Performed By: #### L 400.0001 ####[facility] [address] [place], [address] Clarity (U) Clear Normal Clear [facility] Comment on above: Order Comment: MANOJ CTOR TO SPECIFY Performed By: #### L 400.0001 ####[facility] [address] [place], [address] Color (U) Yellow Normal Yellow [facility] Comment on above: Order Comment: COLLE CTOR TO SPECIFY Performed By: #### L 400.0001 ####[facility] [address] [place], [address] GLUCOSE, UR Normal Normal Normal [facility] Comment on above: Order Comment: COLLE CTOR TO SPECIFY Performed By: #### L 400.0001 ####[facility] [address] [place], [address] KETONE UR Negative Normal Negative [facility] Comment on above: Order Comment: MANOJ CTOR TO SPECIFY Performed By: #### L 400.0001 ####[facility] [address] [place], [address] LEUK ESTERASE Negative Normal Negative [facility] Comment on above: Order Comment: MANOJ CTOR TO SPECIFY Performed By: #### L 400.0001 ####[facility] [address] [place], [address] Nitrite Ql (U) Negative Normal Negative [facility] Comment on above: Order Comment: COLLE CTOR TO SPECIFY Performed By: #### L 400.0001 ####[facility] [address] [place], [address] OCCULT BLOOD-UR Negative Normal Negative [facility] Comment on above: Order Comment: MANOJ CTOR TO SPECIFY Performed By: #### L 400.0001 ####[facility] [address] [place], [address] pH UR 6.0 Normal 5.0 - 8.0 [facility] Comment on above: Order Comment: MANOJ CTOR TO SPECIFY Performed By: #### L 400.0001 ####[facility] [address] [place], [address] PROT DIPSTX Negative Normal Negative [facility] Comment on above: Order Comment: MANOJ CTOR TO SPECIFY Performed By: #### L 400.0001 ####[facility] [address] [place], [address] SP.GR. DIPSTX 1.005 Normal 1.002-1.030 [facility] Comment on above: Order Comment: MANOJ CTOR TO SPECIFY Performed By: #### L 400.0001 ####[facility] [address] [place], [address] UROBILI Normal Normal Normal [facility] Comment on above: Order Comment: MANOJ CTOR TO SPECIFY Performed By: #### L 400.0001 ####[facility] [address] [place], [address] EPI,SQUAMOUS 0 SEEN Normal 0-5 [facility] Comment on above: Order Comment: MANOJ CTOR TO SPECIFY Performed By: #### L 400.0001 ####[facility] [address] [place], [address] Mucus Ql (Urine sed) 0 SEEN Normal [facility] Comment on above: Order Comment: MANOJ CTOR TO SPECIFY Performed By: #### L 400.0001 ####[facility] [address] [place], [address] RBC 0 SEEN Normal 0-5 [facility] Comment on above: Order Comment: MANOJ CTOR TO SPECIFY Performed By: #### L 400.0001 ####[facility] [address] [place], [address] WBC 0 SEEN Normal 0-5 [facility] Comment on above: Order Comment: MANOJ CTOR TO SPECIFY Performed By: #### L 400.0001 ####[facility] [address] [place], [place], [address] Urine blood detectionOrdered By: Rod Ross on 2024 Urine Occult Blood Negative Negative [facility] Urine clarityOrdered By: Woo Ross on 2024 Clarity (U) Clear Clear [facility] Urine color determinationOrd ered By: Rod Ross on 2024 Color (U) Yellow Yellow [facility] Urine leukocyte esterase det ection by dipstickOrdered By: Rod Ross on 2024 Leukocyte esterase Test strip Ql (U) Negative Negative [facility] Urine pHOrdered By: Rod Ross on 2024 pH (U) 6.0 [pH] 5.0 - 8.0 [facility] Urine sediment bacteria coun t by microscopy (number/high power field)Ordered By: Rod Ross on 2024 Bacteria LM.HPF (Urine sed) [#/Area] 1 /[HPF] None Seen [facility] Urine specific gravity measu rementOrdered By: Rod Ross on 2024 Specific gravity (U) [Rel density] 1.005 1.002-1.030 [facility] Urobilinogen Ql (U)Ordered B y: Rod Ross on 2024 Urine Urobilinogen Normal mg/dl Normal [facility] White blood cell countOrdere d By: Rod Ross on 2024 Urine WBC 0 SEEN /hpf 0-5 [facility] US ABDOMEN LIMITEDon 024 US ABDOMEN LIMITED ORIGINAL EXAMINATION: LIMITED ABDOMINAL [id number]/13/2024 8:11 am Limited ultrasound of the abdomen [...] 08/12/2024 9:46:00 AM Ordering Provider: VANGIE Mack [facility] CT PELVIS W/O CONTRASTon CT PELVIS W/O [...] 06/09/2024 12:42:25 PM Ordering Provider: CAYLA HOOPER [facility] US SCROTUM CONTENTSon 2023 US SCROTUM CONTENTS ORIGINAL EXAMINATION: ULTRASOUND OF THE SCROTUM/TESTICLES WITH COLOR DOPPLER FLOW EVALUATION03/27/2024 3:08 pm Scrotal Ultrasound with Duplex Doppler evaluation TECHNIQUE: Duplex ultrasound using B-mode/vazuqez scaled imaging, Doppler spectral analysis and color [...] PM Ordering Provider: SHIRA ARIAS [facility] ([place]) Vital Signs Date Time Vital Sign Value Performing Clinician Kotai fredy 05-17-2025 09:16-0400 Body height 177.8 cm Shira Arias NP-C Work Phone: [facility] 05-17-2025 09:16-0400 Body mass index (BMI) [Ratio] 30.1 kg/m2 Shira Arias NP-C Work Phone: [facility] 05-17-2025 09:16-0400 Body temperature 98.1 [degF] Shira Arais NP-C Work Phone: [facility] 05-17-2025 09:16-0400 Body weight 95.25 kg Shira Arias NP-C Work Phone: [facility] 05-17-2025 09:16-0400 Diastolic blood pressure 78 mm[Hg] Shira Arias [employer] Work Phone: [facility] 05-17-2025 09:16-0400 Heart rate 66 /min Shira Arias NP-C Work Phone: [facility] 05-17-2025 09:16-0400 Respiratory rate 18 /min Shira Arias NP-C Work Phone: [facility] 05-17-2025 09:16-0400 SaO2% (BldA) [Mass fraction] 97 % Shira Arias [employer] Work Phone: [facility] 05-17-2025 09:16-0400 Systolic blood pressure 115 mm[Hg] Shira Arias [employer] Work Phone: [facility] 05-07-2025 13:40-0400 Diastolic blood pressure 104 mm[Hg] Shira Arias [employer] Work Phone: [facility] 05-07-2025 13:40-0400 Heart rate 67 /min Shira Arias [employer] Work Phone: [facility] 05-07-2025 13:40-0400 Respiratory rate 18 /min Shira Arias [employer] Work Phone: [facility] 05-07-2025 13:40-0400 SaO2% (BldA) [Mass fraction] 97 % Shira Arias [employer] Work Phone: [facility] 05-07-2025 13:40-0400 Systolic blood pressure 139 mm[Hg] Shira Arias [employer] Work Phone: [facility] 05-07-2025 09:00-0400 Body temperature 99 [degF] Shira Arias [employer] Work Phone: [facility] 05-07-2025 05:12-0400 Body mass index (BMI) [Ratio] 30.4 kg/m2 Shira Arias [employer] Work Phone: [facility] 05-07-2025 05:12-0400 Body weight 96.3 kg Shira Arias [employer] Work Phone: [facility] 05-05-2025 14:00-0400 Body temperature 98.9 [degF] Shira Arias [employer] Work Phone: [facility] 05-05-2025 14:00-0400 Diastolic blood pressure 66 mm[Hg] Shira Arias [employer] Work Phone: [facility] 05-05-2025 14:00-0400 Heart rate 90 /min Shira Arias [employer] Work Phone: [facility] 05-05-2025 14:00-0400 Respiratory rate 18 /min Shira Arias [employer] Work Phone: [facility] 05-05-2025 14:00-0400 SaO2% (BldA) [Mass fraction] 96 % Shira Arias [employer]C Work Phone: [facility] 05-05-2025 14:00-0400 Systolic blood pressure 94 mm[Hg] Shira Arias [employer]C Work Phone: [facility] 05-05-2025 02:26-0400 Body height 177.8 cm Shira Arias [employer]C Work Phone: [facility] 05-04-2025 23:21-0400 Body height 177.8 cm Shira Arias [employer] Work Phone: [facility] 05-04-2025 23:21-0400 Body mass index (BMI) [Ratio] 29.8 kg/m2 Shira Arias [employer] Work Phone: [facility] 05-04-2025 23:21-0400 Body weight 94.3 kg Shira Arias [employer] Work Phone: [facility] 05-03-2025 13:45-0400 Body temperature 97.4 [degF] Shira Arias [employer] Work Phone: [facility] 05-03-2025 13:45-0400 Diastolic blood pressure 82 mm[Hg] Shira Arias [employer] Work Phone: [facility] 05-03-2025 13:45-0400 Heart rate 64 /min Shira Arias [employer] Work Phone: [facility] 05-03-2025 13:45-0400 Respiratory rate 16 /min Shira Arias [employer] Work Phone: [facility] 05-03-2025 13:45-0400 SaO2% (BldA) [Mass fraction] 96 % Shira Arias [employer] Work Phone: [facility] 05-03-2025 13:45-0400 Systolic blood pressure 97 mm[Hg] Shira Arias [employer] Work Phone: [facility] 05-03-2025 11:55-0400 Body height 177.8 cm Shira Arias [employer] Work Phone: [facility] 05-03-2025 11:55-0400 Body mass index (BMI) [Ratio] 30.2 kg/m2 Shira Arias [employer] Work Phone: [facility] 05-03-2025 11:55-0400 Body weight 95.7 kg Shira Arias [employer] Work Phone: [facility] 03-18-2025 18:35-0400 Body temperature 98.9 [degF] Shira Arias [employer] Work Phone: [facility] 03-18-2025 18:35-0400 Diastolic blood pressure 90 mm[Hg] Shira Arias [employer] Work Phone: [facility] 03-18-2025 18:35-0400 Heart rate 90 /min Shira Arias [employer] Work Phone: [facility] 03-18-2025 18:35-0400 Respiratory rate 18 /min Shira Arias [employer] Work Phone: [facility] 03-18-2025 18:35-0400 SaO2% (BldA) [Mass fraction] 98 % Shira Arias [employer] Work Phone: [facility] 03-18-2025 18:35-0400 Systolic blood pressure 123 mm[Hg] Shira Arias [employer] Work Phone: [facility] 03-18-2025 18:34-0400 Body temperature 98.9 [degF] Shira Arias [employer] Work Phone: [facility] 03-18-2025 18:34-0400 Diastolic blood pressure 90 mm[Hg] Shira Arias [employer] Work Phone: [facility] 03-18-2025 18:34-0400 Heart rate 95 /min Shira Arias [employer] Work Phone: [facility] 03-18-2025 18:34-0400 Inhaled oxygen flow rate 0 L/min Shira Arias [employer] Work Phone: [facility] 03-18-2025 18:34-0400 Respiratory rate 18 /min Shira Arias [employer] Work Phone: [facility] 03-18-2025 18:34-0400 SaO2% (BldA) [Mass fraction] 98 % Shira Arias [employer] Work Phone: [facility] 03-18-2025 18:34-0400 Systolic blood pressure 123 mm[Hg] Shira Arias [employer] Work Phone: [facility] 03-17-2025 19:52-0400 Body height 177.8 cm Shira Arias [employer] Work Phone: [facility] 03-17-2025 19:52-0400 Body mass index (BMI) [Ratio] 30.4 kg/m2 Shira Arias [employer] Work Phone: [facility] 03-17-2025 19:52-0400 Body weight 96.3 kg Shira Arias [employer] Work Phone: [facility] 12-31-2024 10:04-0400 Body height 177.8 cm Shira Arias [employer] Work Phone: [facility] 12-31-2024 10:04-0400 Body mass index (BMI) [Ratio] 29.3 kg/m2 Shira Arias [employer] Work Phone: [facility] 12-31-2024 10:04-0400 Body temperature 97.6 [degF] Shira Arias [employer] Work Phone: [facility] 12-31-2024 10:04-0400 Body weight 92.75 kg Shiramoises Arias [employer] Work Phone: [facility] 12-31-2024 10:04-0400 Diastolic blood pressure 70 mm[Hg] Shira Arias [employer] Work Phone: [facility] 12-31-2024 10:04-0400 Heart rate 67 /min Shira Arias [employer] Work Phone: [facility] 12-31-2024 10:04-0400 Respiratory rate 18 /min Shira Arias [employer] Work Phone: [facility] 12-31-2024 10:04-0400 Systolic blood pressure 100 mm[Hg] Shira Arias [employer] Work Phone: [facility] 12-16-2024 14:17-0400 Body temperature 98.7 [degF] Shira Arias [employer] Work Phone: [facility] 12-16-2024 14:17-0400 Diastolic blood pressure 79 mm[Hg] Shira Arias [employer] Work Phone: [facility] 12-16-2024 14:17-0400 Heart rate 69 /min Shira Arias [employer] Work Phone: [facility] 12-16-2024 14:17-0400 Respiratory rate 16 /min Shira Arias [employer] Work Phone: [facility] 12-16-2024 14:17-0400 SaO2% (BldA) [Mass fraction] 96 % Shira Arias [employer] Work Phone: [facility] 12-16-2024 14:17-0400 Systolic blood pressure 113 mm[Hg] Shira Arias [employer] Work Phone: [facility] 12-15-2024 14:00-0400 Body height 178 cm Shira Arias [employer] Work Phone: [facility] 12-15-2024 14:00-0400 Body mass index (BMI) [Ratio] 29.3 kg/m2 Shira Arias [employer] Work Phone: [facility] 12-15-2024 14:00-0400 Body weight 93 kg Shira Arais [employer] Work Phone: [facility] 12-14-2024 15:52-0400 Body temperature 98.2 [degF] Shira Arias [employer] Work Phone: [facility] 12-14-2024 15:52-0400 Diastolic blood pressure 84 mm[Hg] Shira Arias [employer] Work Phone: [facility] 12-14-2024 15:52-0400 Heart rate 88 /min Shira Arias [employer] Work Phone: [facility] 12-14-2024 15:52-0400 Respiratory rate 17 /min Shira Arias [employer] Work Phone: [facility] 12-14-2024 15:52-0400 SaO2% (BldA) [Mass fraction] 94 % Shira Arias [employer] Work Phone: [facility] 12-14-2024 15:52-0400 Systolic blood pressure 138 mm[Hg] Shira Arias [employer] Work Phone: [facility] 12-14-2024 10:14-0400 Body height 177.8 cm Shira Arias [employer] Work Phone: [facility] 12-14-2024 10:14-0400 Body mass index (BMI) [Ratio] 29.4 kg/m2 Shira Arias HAND PAINT MIXER-C Work Phone: [facility] 12-14-2024 10:14-0400 Body weight 92.98 kg Shira Arias HAND PAINT MIXER-C Work Phone: [facility] 12-11-2024 14:30-0400 Body temperature 97.2 [degF] Shira Arias HAND PA[employer] M[employer]ER[employer]C Work Phone: [facility] 12-11-2024 14:30-0400 Diastolic blood pressure 83 mm[Hg] Shira Arias HAND PA[employer] MIXER-C Work Phone: [facility] 12-11-2024 14:30-0400 Heart rate 77 /min Shira Arias HAND PA[employer] MIXER-C Work Phone: [facility] 12-11-2024 14:30-0400 Respiratory rate 16 /min Shira Arias HAND PA[employer] MIXER-C Work Phone: [facility] 12-11-2024 14:30-0400 SaO2% (BldA) [Mass fraction] 93 % Shira Arias HAND PAINT MIXER-C Work Phone: [facility] 12-11-2024 14:30-0400 Systolic blood pressure 100 mm[Hg] Shira Arias HAND PA[employer] MIXER-C Work Phone: [facility] 12-11-2024 13:03-0400 Body height 177.8 cm Shira Arias HAND PA[employer] MIXER-C Work Phone: [facility] 12-11-2024 13:03-0400 Body mass index (BMI) [Ratio] 29.7 kg/m2 Shira Arias HAND PA[employer] M[employer]ER-C Work Phone: [facility] 12-11-2024 13:03-0400 Body weight 93.8 kg Shira Arias HAND PA[employer] MIXER-C Work Phone: [facility] 09-11-2024 08:02-0500 Body mass index (BMI) [Ratio] 29.1 kg/m2 Shira Arias HAND PA[employer] M[employer]ER-C Work Phone: [facility] 09-11-2024 08:02-0500 Body weight 92.07 kg Shira Arias HAND PAINT MIXER-C Work Phone: [facility] 09-11-2024 08:02-0500 Diastolic blood pressure 84 mm[Hg] Shira Arias HAND PA[employer] M[employer]ER-C Work Phone: [facility] 09-11-2024 08:02-0500 Heart rate 72 /min Shira Arias HAND PA[employer] MIXER-C Work Phone: [facility] 09-11-2024 08:02-0500 SaO2% (BldA) [Mass fraction] 98 % Shira Arias HAND PA[employer] MIXER-C Work Phone: [facility] 09-11-2024 08:02-0500 Systolic blood pressure 123 mm[Hg] Shira Arias HAND PA[employer] MIXER-C Work Phone: [facility] 09-07-2024 08:00-0500 Body temperature 97.7 [degF] Shira Arias HAND PA[employer] M[employer]ER-C Work Phone: [facility] 09-07-2024 08:00-0500 Diastolic blood pressure 72 mm[Hg] Shira Arias HAND PA[employer] MIXER-C Work Phone: [facility] 09-07-2024 08:00-0500 Heart rate 70 /min Shira Arias HAND PA[employer] MIXER-C Work Phone: [facility] 09-07-2024 08:00-0500 Respiratory rate 18 /min Shira Arias HAND PA[employer] MIXER-C Work Phone: [facility] 09-07-2024 08:00-0500 SaO2% (BldA) [Mass fraction] 99 % Shira Arias HAND PAINT MIXER-C Work Phone: [facility] 09-07-2024 08:00-0500 Systolic blood pressure 114 mm[Hg] Shira Arias HAND PA[employer] MIXER-C Work Phone: [facility] 09-06-2024 06:00-0500 Body mass index (BMI) [Ratio] 29.2 kg/m2 Shira Arias HAND PA[employer] M[employer]ER-C Work Phone: [facility] 09-06-2024 06:00-0500 Body weight 92.6 kg Shira Arias HAND PAINT MIXER-C Work Phone: [facility] Encounters Encounter Date Encounter Type Care Provider Facility Start: 06-15-2025 ambulatory Shira Arias HAND PAINT MIXER Facil ity:[facility] Start: 05-17-2025 End: 05-17-2025 Patient encounter procedure Cayla Quiñonez HAND PAINT MIXER-C -[facility] Work Phone: Start: 05-17-2025 End: 05-17-2025 ambulatory Shira Arias HAND PAINT MIXER-C Work Phone: -[facility] Start: 05-17-2025 End: 05-17-2025 ambulatory Cayla Quiñonez Facility:[facility] Start: 05-07-2025 Non-patient / Non-visit Denys Friend DO -[facility] Start: 05-07-2025 Non-patient / Non-visit Dr. Veronica Flores MD -[facility] Work Phone: Start: 05-06-2025 Non-patient / Non-visit Denys Friend DO -[facility] Start: 05-06-2025 Non-patient / Non-visit Dr. Veronica Flores MD -[facility] Work Phone: Start: 05-05-2025 ambulatory Shira Arias NP Facil ity:[facility] Start: 05-05-2025 Non-patient / Non-visit Denys Friend DO -[facility] Start: 05-05-2025 Non-patient / Non-visit iBng Temple PA-C -[facility] Start: 05-05-2025 End: 05-07-2025 Evaluation and management of inpatient Dr. Eileen Brunson MD -Progressive Care Unit Work Phone: Start: 05-05-2025 ambulatory Cayla Quiñonez Facili ty:[facility] Start: 05-05-2025 Non-patient / Non-visit Dr. Eileen Brunson MD -[facility] Work Phone: Start: 05-03-2025 ambulatory Shira Arias NP Facil ity:[facility] Start: 05-03-2025 Non-patient / Non-visit Denys Friend DO -[facility] Start: 05-03-2025 Non-patient / Non-visit Dr. Jose Lubin MD -[facility] Work Phone: Start: 05-03-2025 End: 05-03-2025 Admission to same day surgery center Denys Babin DO -Endoscopy Work Phone: Start: 05-03-2025 End: 05-03-2025 ambulatory Shira Arias HAND PAINT MIXER-C Work Phone: -Endoscopy Start: 04-07-2025 End: 04-07-2025 Patient encounter procedure Bing Temple PA-C -[facility] Work Phone: Start: 04-07-2025 End: 04-07-2025 ambulatory Shira Arias HAND PAINT MIXER-C Work Phone: -[facility] Start: 03-31-2025 End: 03-31-2025 Patient encounter procedure Bing Temple PA-C -[facility] Work Phone: Start: 03-31-2025 End: 03-31-2025 ambulatory Shira Arias HAND PAINT MIXER-C Work Phone: -[facility] Start: 03-30-2025 End: 03-30-2025 ambulatory Shira Arias HAND PAINT MIXER-C Work Phone: -Nuclear Medicine [facility] Start: 03-30-2025 End: 03-30-2025 Patient encounter procedure Bing Temple PA-C -Nuclear Medicine [facility] Work Phone: Start: 03-30-2025 End: 03-30-2025 ambulatory Shira Arias HAND PAINT MIXER Facility:[facility] Start: 03-25-2025 End: 03-25-2025 Patient encounter procedure Bing Temple PA-C -[facility] Work Phone: Start: 03-25-2025 End: 03-25-2025 ambulatory Shira Arias HAND PAINT MIXER-C Work Phone: [facility] Work Phone: Start: 03-22-2025 ambulatory Cayla Guerrero ty:[facility] Start: 03-18-2025 Non-patient / Non-visit Dr. Camron Shoemaker MD -[facility] Start: 03-17-2025 ambulatory Camron Shoemaker Facility: [facility] Start: 03-17-2025 End: 03-18-2025 Evaluation and management of inpatient Dr. Camron Shoemaker MD -[facility] Work Phone: Start: 03-17-2025 ambulatory Gray López Facility:[facility] Start: 03-17-2025 Non-patient / Non-visit Dr. aCmron Shoemaker MD -[facility] Start: 03-08-2025 End: 03-08-2025 ambulatory Camron Shoemaker Facility:[facility] Start: 03-08-2025 End: 03-08-2025 Non-patient / Non-visit Dr. Camron Redd MD -[facility] Work Phone: Start: 02-24-2025 End: 02-24-2025 ambulatory Shira Arias NP-C Work Phone: [facility] Work Phone: Start: 02-24-2025 End: 02-24-2025 Patient encounter procedure Michela Sal NP-C -Nuclear Medicine [facility] Work Phone: Start: 02-24-2025 End: 02-24-2025 ambulatory Michela Sal NP Facility:[facility] Start: 02-02-2025 ambulatory MICHELA ACUNA TERMITE TECHNICIAN-GAMEMASTER Facility:[facility] Start: 01-05-2025 Registered Referred Michela roe HAND PAINT MIXER-C -Laboratory Specimen Work Phone: Start: 01-05-2025 ambulatory Michela Sal NP Fa cility:[facility] Start: 12-31-2024 End: 12-31-2024 ambulatory Shira Arias HAND PAINT MIXER-C Work Phone: [facility] Work Phone: Start: 12-31-2024 End: 12-31-2024 Patient encounter procedure Cayla Quiñonez NP-C -Laboratory Work Phone: Start: 12-31-2024 End: 12-31-2024 Patient encounter procedure Cayla Quiñonez NP-C -[facility] Work Phone: Start: 12-31-2024 End: 12-31-2024 ambulatory Cayla Khang Facility:[facility] Start: 12-31-2024 End: 12-31-[address] Camron Shoemaker MD -[facility] Work Phone: Start: 12-31-2024 End: 12-31-2024 ambulatory Camron Shoemaker Facility:[facility] Start: 12-31-2024 End: 12-31-2024 ambulatory Cayla Quiñonez Facility:[facility] Start: 12-16-2024 Non-patient / Non-visit Dr. Francesco Lui MD -[facility] Work Phone: Start: 12-16-2024 Non-patient / Non-visit Dr. Camron Shoemaker MD -[facility] Start: 12-15-2024 Non-patient / Non-visit Denys Babin DO [facility] Start: 12-15-2024 Non-patient / Non-visit Dr. Francesco Lui MD -[facility] Work Phone: Start: 12-14-2024 ambulatory Cruz Arciniega Fac ility:[facility] Start: 12-14-2024 End: 12-16-2024 Evaluation and management of inpatient Dr. Cruz Arciniega DO -Progressive Care Unit Work Phone: Start: 12-11-2024 End: 12-11-2024 Admission to same day surgery center Denys Babin DO -Endoscopy Work Phone: Start: 12-11-2024 End: 12-11-2024 ambulatory Shira Arias HAND PAINT MIXER-C Work Phone: [facility] Work Phone: Start: 12-11-2024 End: 12-11-2024 Non-patient / Non-visit Denys Babin DO -[facility] Start: 09-11-2024 End: 09-11-[address] Francesco Lui MD -[facility] Work Phone: Start: 09-11-2024 End: 09-11-2024 ambulatory Shira Arias HAND PAINT MIXER Facility:[facility] Start: 09-11-2024 End: 09-11-20[facility] Start: 09-07-2024 Non-patient / Non-visit Dr. Edwina Kimball DO [facility] Work Phone: Start: 09-07-2024 Non-patient / Non-visit Denys Babin DO [facility] Start: 09-06-2024 Non-patient / Non-visit Dr. Cruz Arciniega [facility] Work Phone: Start: 09-05-2024 End: 09-05-2024 ambulatory Denys Palmyra Facility:[facility] Start: 09-05-2024 End: 09-05-2024 Non-patient / Non-visit Denys Friend DO -[facility] Start: 2024 Non-patient / Non-visit Denys Palmyra DO [facility] Start: 2024 ambulatory Seth Paiz Facili ty:[facility] Start: 2024 End: 09-07-2024 Evaluation and management of inpatient Dr. Edwina Kimball DO [facility] 3 Work Phone: Start: 08-12-2024 End: 08-12-2024 ambulatory SHIRA ARIAS TERMITE TECHNICIAN-GAMEMASTER Facility:[facility] Start: 08-12-2024 End: 08-12-2024 Patient encounter procedure CAYLA HOOPER TERMITE TECHNICIAN-GAMEMASTER [facility] Start: 08-06-2024 ambulatory VANGIE PLUMMER S TERMITE TECHNICIAN-GAMEMASTER Facility:[facility] Start: 06-11-2024 End: 06-11-2024 ambulatory CAYLA HOOPER TERMITE TECHNICIAN-GAMEMASTER Facility:[facility] Start: 06-11-2024 End: 06-11-2024 Patient encounter procedure CAYLA HOOPER TERMITE TECHNICIAN-GAMEMASTER [facility] Start: 06-09-2024 End: 06-09-2024 ambulatory CAYLA Griffiths SANDIE TERMITE TECHNICIAN-GAMEMASTER Facility:[facility] Start: 06-09-2024 End: 06-09-2024 Patient encounter procedure CAYLA Griffiths SANDIE TERMITE TECHNICIAN-GAMEMASTER [facility] Start: 05-27-2024 ambulatory CAYLA Griffiths DEVIKAEnma OMAR TERMITE TECHNICIAN-GAMEMASTER Facility:[facility] Start: 05-14-2024 End: 05-14-2024 ambulatory CAYLA K SANDIE TERMITE TECHNICIAN-GAMEMASTER Facility:[facility] Start: 03-27-2024 End: 03-27-2024 ambulatory SHIRA JUANA TERMITE TECHNICIAN-GAMEMASTER Facility:[facility] Start: 03-27-2024 End: 03-27-2024 Patient encounter procedure SHIRA ARIAS TERMITE TECHNICIAN-GAMEMASTER [facility] Procedures Date Procedure Procedure Detail Performing Clinician Start: 05-07-2025 Estimated creatinine clearance Shira russo HAND PAINT MIXER-C Work Phone: Start: 05-05-2025 End: 05-05-2025 Endoscopic retrograde cholangiopancreatography Shira Arias HAND PAINT MIXER-C Work Phone: Start: 05-05-2025 Fluoroscopic guidance Shira Arias HAND PAINT MIXER-C Work Phone: Start: 05-05-2025 Blood culture Shira Arias HAND PAINT MIXER-C Work Phone: Start: 05-04-2025 Computed tomography of abdomen and pelvis with intravenous contrast Shira Arias HAND PAINT MIXER-C Work Phone: Start: 05-04-2025 Estimated creatinine clearance Shira russo HAND PAINT MIXER-C Work Phone: Start: 05-04-2025 Blood culture Shira Arias HAND PAINT MIXER-C Work Phone: Start: 05-03-2025 Fluoroscopic guidance Shira Arias HAND PAINT MIXER-C Work Phone: Start: 05-03-2025 End: 05-03-2025 Endoscopic retrograde cholangiopancreatography Shira Arias HAND PAINT MIXER-C Work Phone: Start: 03-30-2025 Radionuclide study of abdomen Shira lemons HAND PAINT MIXER-C Work Phone: Start: 03-18-2025 Estimated creatinine clearance Shira russo HAND PAINT MIXER-C Work Phone: Start: 03-17-2025 Total cholecystectomy and exploration of common bile duct Shira Arias HAND PAINT MIXER-C Work Phone: Start: 02-24-2025 Radionuclide study of abdomen Shira lemons HAND PAINT MIXER-C Work Phone: Start: 01-05-2025 Fibrinogen assay, quantitative Shira russo HAND PAINT MIXER-C Work Phone: Start: 01-05-2025 Homocysteine measurement Shira Arias HAND PAINT MIXER-C Work Phone: Comment on above: Performed at: [address] [id number] Director: Raj Dick PhD, Phone: [phone] Start: 12-16-2024 Estimated creatinine clearance Shira russo HAND PAINT MIXER-C Work Phone: Start: 12-15-2024 End: 12-15-2024 Endoscopic retrograde cholangiopancreatography Shira Arias HAND PAINT MIXER-C Work Phone: Start: 12-15-2024 Fluoroscopic guidance Shira Arias HAND PAINT MIXER-C Work Phone: Start: 12-14-2024 Blood culture Shira Arias HAND PAINT MIXER-C Work Phone: Start: 12-14-2024 SARS-CoV-2, Influenza & RSV (PCR) Shira Arias HAND PAINT MIXER-C Work Phone: Start: 12-14-2024 Urnls dip stick/tablet reagent auto microscopy Shira Arias HAND PAINT MIXER-C Work Phone: Start: 12-14-2024 X-ray of chest, PA and lateral views Shira Arias HAND PAINT MIXER-C Work Phone: Start: 12-14-2024 Computed tomography of abdomen and pelvis with intravenous contrast Shira Arias HAND PAINT MIXER-C Work Phone: Start: 12-11-2024 End: 12-11-2024 Endoscopic retrograde cholangiopancreatography Shira Juana HAND PAINT MIXER-C Work Phone: Start: 12-11-2024 Fluoroscopic guidance Shira Juana HAND PAINT MIXER-C Work Phone: Start: 09-06-2024 Magnetic resonance cholangiopancreatography Shira Juana HAND PAINT MIXER-C Work Phone: Start: 09-05-2024 Endoscopic retrograde cholangiopancreatography Shira Juana HAND PAINT MIXER-C Work Phone: Start: 09-05-2024 Fluoroscopic guidance Shira Juana HAND PAINT MIXER-C Work Phone: Start: 09-05-2024 Endoscopic retrograde cholangiopancreatography Shira Juana HAND PAINT MIXER-C Work Phone: Start: 2024 Computed tomography of abdomen and pelvis with intravenous contrast Shira Juana HAND PAINT MIXER-C Work Phone: Start: 2024 US scan of gallbladder Shiramoises Arias HAND PAINT MIXER-C Work Phone: History of cholecystectomy Statu s post laparoscopic cholecystectomy Shira Juana HAND PAINT MIXER-C Work Phone: History of cholecystectomy Statu s post laparoscopic cholecystectomy Dr. Camron Shoemaker MD History of cholecystectomy Statu s post laparoscopic cholecystectomy Bing Temple PA-C History of cholecystectomy Statu s post laparoscopic cholecystectomy Bing Temple PA-C History of cholecystectomy Statu s post laparoscopic cholecystectomy Bing Temple PA-C Plan of Treatment Date Care Activity Detail Author Start: 05-07-2025 Patient discharge [facility] Start: 05-06-2025 Consultation [facility] Start: 05-05-2025 Bacteria identified in Blood by Culture Blood Culture [facility] Start: 05-05-2025 Application of intermittent pneumatic compression device [facility] Start: 05-05-2025 Assessment of risk of venous thromboembolism [facility] Start: 05-05-2025 Inhalation therapy procedure [facility] Start: 05-05-2025 Insertion of catheter into peripheral vein [facility] Start: 05-05-2025 Introduction of urinary catheter [facility] Start: 05-05-2025 Measuring intake and output [facility] Start: 05-05-2025 Providing care according to standard [facility] Start: 05-05-2025 Provision of activity privileges [facility] Start: 05-05-2025 Referral to gastroenterology service [facility] Start: 05-05-2025 Referral to general surgeon [facility] Start: 05-05-2025 Referral to service [facility] Start: 05-05-2025 [facility] Start: 05-05-2025 Following clinical pathway protocol [facility] Start: 05-05-2025 Verification routine [facility] Start: 05-05-2025 Admission procedure [facility] Start: 05-05-2025 Hospital admission, emergency, from emergency room, medical nature [facility] Start: 05-04-2025 [facility] Start: 05-04-2025 Bacteria identified in Blood by Culture Blood Culture [facility] Start: 05-03-2025 Ercp remove calculi/debris biliary/pancreas duct ERCP REMOVE DUCT CALCULI [facility] Start: 05-03-2025 Ercp remove foreign body/stent biliary/panc duct ERCP REMOVE FORGN BODY DUCT [facility] Start: 05-03-2025 Ercp w/sphincterotomy/papillotomy ENDO CHOLANGIOPANCREATOGRAPH [facility] Start: 05-03-2025 Endoscopic retrograde cholangiopancreatography ERCP Biliary/Pancreas [facility] Start: 05-03-2025 RF Guidance for endoscopy of Biliary ducts and Pancreatic duct-- W contrast retrograde [facility] Start: 05-03-2025 Electrocardiographic procedure [facility] Start: 05-03-2025 Patient discharge [facility] Start: 03-18-2025 Patient discharge [facility] Start: 03-18-2025 [facility] Start: 03-17-2025 Application of intermittent pneumatic compression device [facility] Start: 03-17-2025 Following clinical pathway protocol [facility] Start: 03-17-2025 Application of ice collar, cap or bag [facility] Start: 03-17-2025 Measuring intake and output [facility] Start: 03-17-2025 Admission procedure [facility] Start: 12-16-2024 Patient discharge [facility] Start: 12-16-2024 Referral to general surgeon [facility] Start: 12-16-2024 Consultation [facility] Start: 12-16-2024 Gamma glutamyl transferase measurement [facility] Start: 12-15-2024 Following clinical pathway protocol [facility] Start: 12-15-2024 Complete blood count [facility] Start: 12-14-2024 Ambulation without limitation [facility] Start: 12-14-2024 Assessment of risk of venous thromboembolism [facility] Start: 12-14-2024 Incentive spirometry [facility] Start: 12-14-2024 Insertion of catheter into peripheral vein [facility] Start: 12-14-2024 Oxygen therapy [facility] Start: 12-14-2024 Providing care according to standard [facility] Start: 12-14-2024 Referral to gastroenterology service [facility] Start: 12-14-2024 [facility] Start: 12-14-2024 Verification routine [facility] Start: 12-14-2024 Admission procedure [facility] Start: 12-14-2024 Bacteria identified in Blood by Culture Blood Culture [facility] Start: 12-14-2024 Blood culture Blood Culture [facility] Start: 12-14-2024 [facility] Start: 12-11-2024 Ercp remove calculi/debris biliary/pancreas duct ERCP REMOVE DUCT CALCULI [facility] Start: 12-11-2024 Ercp remove foreign body/stent biliary/panc duct ERCP REMOVE FORGN BODY DUCT [facility] Start: 12-11-2024 Ercp w/sphincterotomy/papillotomy ENDO CHOLANGIOPANCREATOGRAPH [facility] Start: 12-11-2024 Patient discharge [facility] Start: 09-07-2024 Patient discharge [facility] Start: 09-07-2024 Catheterization of vein [facility] Start: 09-07-2024 Oxygen therapy [facility] Start: 09-07-2024 Vital signs measurements [facility] Start: 2024 Application of intermittent pneumatic compression device [facility] Start: 2024 Ambulation without limitation [facility] Start: 2024 Assessment of risk of venous thromboembolism [facility] Start: 2024 Documentation procedure [facility] Start: 2024 Insertion of catheter into peripheral vein [facility] Start: 2024 Measuring intake and output [facility] Start: 2024 Providing care according to standard [facility] Start: 2024 Referral to gastroenterology service [facility] Start: 2024 Referral to service [facility] Start: 2024 [facility] Start: 2024 Following clinical pathway protocol [facility] Start: 2024 Admission procedure [facility] Alanine aminotransfe rase [Enzymatic activity/volume] in Serum or Plasma [facility] Albumin [Mass/volume ] in Serum or Plasma [facility] Alkaline phosphatase [Enzymatic activity/volume] in Serum or Plasma [facility] Anion gap in Serum or Plasma [facility] Bilirubin, total measurement [facility] BUN/Creatinine ratio [facility] Calcium [Mass/volume ] in Serum or Plasma [facility] Carbon dioxide, tota l [Moles/volume] in Central venous blood [facility] Carcinoembryonic Ag [Mass/volume] in Serum or Plasma [facility] Creatinine [Mass/vol ume] in Serum or Plasma [facility] CT Abdomen and Pelvi s WO and W contrast IV [facility] Erythrocyte mean cor puscular volume determination [facility] Glucose [Mass/volume ] in Serum or Plasma [facility] Hematocrit [Volume F raction] of Blood [facility] Hemoglobin [Mass/vol ume] in Blood [facility] Hepatic function panel [facility] Hepatic function [facility] Hepatic function panel [facility] Leukocytes [#/volume] in Blood [facility] Mean corpuscular hem oglobin concentration determination [facility] Mean corpuscular hem oglobin determination [facility] Measurement of renal function [facility] Patient Education ERCP Dc [facility] Work Phone: Patient referral [facility] Work Phone: Platelets [#/volume] in Blood [facility] Potassium measurement [facility] Radionuclide study of abdomen [facility] Red blood cell count [facility] Red cell distributio n width determination [facility] Serum chloride measurement [facility] Sodium measurement [facility] Total protein measurement [facility] Urea nitrogen [Mass/ volume] in Serum or Plasma [facility] Payers Date Payer Category Payer Unknown [id number] 2024 Self-pay 1985 Unknown [id number] 2.16.8 [id number] 1983 Unknown [id number] 2.16.8 [id number] 1983 Unknown [id number] 2.16.8 [id number] 1983 Unknown [id number] 2.16.8 [id number] 1983 Unknown [id number] 2.16.8 [id number] 1983 Unknown [id number] 2.16.8 [id number] 1983 Unknown [id number] 2.16.8 40.1.966412.3.579.2.627 1983 Unknown [id number] 2.16.8 40.1.329699.3.579.2.627 1983 Unknown [id number] 2.16.8 40.1.388111.3.579.2.627 Unknown [id number] 2.16.8 40.1.394284.3.579.2.462 Unknown [id number] 2.16.8 40.1.135985.3.579.2.462 Unknown [id number] 2.16.8 40.1.078583.3.579.2.462 Unknown [id number] 2.16.8 40.1.521045.3.579.2.462 Unknown [id number] 2.16.8 40.1.961954.3.579.2.462 Unknown [id number] 2.16.8 40.1.671570.3.579.2.462 Unknown [id number] 2.16.8 40.1.264395.3.579.2.462 Unknown [id number] 2.16.8 40.1.855284.3.579.2.462 Unknown [id number] 2.16.8 40.1.203174.3.579.2.462 Unknown [id number] 2.16.8 40.1.052487.3.579.2.462 Unknown [id number] 2.16.8 40.1.214821.3.579.2.462 Unknown [id number] 2.16.8 40.1.803947.3.579.2.462 Unknown [id number] 2.16.8 40.1.128179.3.579.2.462 Unknown [id number] 2.16.8 40.1.326679.3.579.2.462 Unknown [id number] 2.16.8 40.1.917061.3.579.2.462 Unknown [id number] 2.16.8 40.1.487669.3.579.2.462 Unknown [id number] 2.16.8 40.1.010725.3.579.2.462 Unknown [id number] 2.16.8 40.1.584500.3.579.2.462 Unknown [id number] 2.16.8 40.1.633147.3.579.2.462 Unknown [id number] 2.16.8 40.1.789488.3.579.2.462 Unknown [id number] 2.16.8 40.1.504112.3.579.2.462 Unknown [id number] 2.16.8 40.1.617806.3.579.2.462 Unknown [id number] 2.16.8 40.1.768669.3.579.2.462 Unknown [id number] 2.16.8 40.1.013168.3.579.2.462 Unknown [id number] 2.16.8 40.1.832317.3.579.2.462 Unknown [id number] 2.16.8 40.1.393729.3.579.2.462 Unknown [id number] 2.16.8 40.1.165596.3.579.2.462 Unknown [id number] 2.16.8 40.1.746899.3.579.2.462 Unknown [id number] 2.16.8 40.1.927331.3.579.2.462 Unknown [id number] 2.16.8 40.1.890970.3.579.2.462 Unknown [id number] 2.16.8 40.1.185267.3.579.2.462 Unknown [id number] 2.16.8 40.1.916421.3.579.2.462 Unknown [id number] 2.16.8 40.1.486922.3.579.2.462 Unknown [id number] 2.16.8 40.1.910417.3.579.2.462 Unknown [id number] 2.16.8 40.1.888588.3.579.2.462 Unknown [id number] 2.16.8 40.1.450372.3.579.2.462 Unknown [id number] 2.16.8 40.1.686959.3.579.2.462 Unknown [id number] 2.16.8 40.1.058007.3.579.2.462 Unknown [id number] 2.16.8 40.1.852543.3.579.2.462 Unknown [id number] 2.16.8 40.1.215629.3.579.2.462 Unknown [id number] 2.16.8 40.1.805228.3.579.2.462 Unknown [id number] 2.16.8 40.1.977414.3.579.2.462 Unknown [id number] 2.16.8 40.1.292689.3.579.2.462 Unknown [id number] 2.16.8 40.1.076347.3.579.2.462 Unknown [id number] 2.16.8 40.1.949141.3.579.2.462 Unknown [id number] 2.16.8 40.1.354761.3.579.2.462 Unknown [id number] 2.16.8 40.1.217229.3.579.2.462 Unknown [id number] 2.16.8 40.1.171440.3.579.2.462 Unknown [id number] 2.16.8 40.1.550688.3.579.2.462 Unknown [id number] 2.16.8 40.1.081622.3.579.2.462 Social History Date Type Detail Facility Start: 01-29-2024 End: 05-05-2025 Tobacco smoking status Never smoked tobacco (finding) [facility] Start: 1985 Sex Assigned At Male [facility] Start: 12-11-2024 End: 01-05-2025 Sex Male (finding) [facility] Medical Equipment Procedure Code Equipment Code Equipment Origin al Text Equipment Identifier Dates Total cholecystectomy with exploration of common bile duct HUNTER GUIDE,CLIP 5MM LIGAMAX FDA Start: 03-17-2025 Total cholecystectomy with exploration of common bile duct CLIP,HEMOLOCK MED WECK FDA Start: 03-17-2025 Total cholecystectomy with exploration of common bile duct CLIP,HEMOLOCK MED WECK FDA Start: 03-17-2025 Total cholecystectomy with exploration of common bile duct Plant polysaccharide haemostatic agent, bioabsorbable ()[id number] FDA Start: 03-17-2025 Total cholecystectomy with exploration of common bile duct HUNTER GUIDE,CLIP 5MM LIGAMAX FDA Start: 03-17-2025 Total cholecystectomy with exploration of common bile duct CLIP,HEMOLOCK MED WECK FDA Start: 03-17-2025 Total cholecystectomy with exploration of common bile duct CLIP,HEMBLAKE WOOD WECK FDA Start: 03-17-2025 Total cholecystectomy with exploration of common bile duct HUNTER GUIDE,CLIP 5MM LIGAMAX FDA Start: 03-17-2025 Total cholecystectomy with exploration of common bile duct CLIP,MARCUS WOOD WEROBERT FDA Start: 03-17-2025 Total cholecystectomy with exploration of common bile duct CLIP,HEMBLAKE LENNON FDA Start: 03-17-2025 Total cholecystectomy with exploration of common bile duct HUNTER GUIDE,CLIP 5MM LIGAMAX FDA Start: 03-17-2025 Total cholecystectomy with exploration of common bile duct CLIP,MARCUS WOOD WEROBERT FDA Start: 03-17-2025 Total cholecystectomy with exploration of common bile duct CLIP,MARCUS LENNON FDA Start: 03-17-2025 Total cholecystectomy with exploration of common bile duct HUNTER GUIDE,CLIP 5MM LIGAMAX FDA Start: 03-17-2025 Total cholecystectomy with exploration of common bile duct CLIP,MARCUS LENNON FDA Start: 03-17-2025 Total cholecystectomy with exploration of common bile duct CLIP,MARCUS LENNON FDA Start: 03-17-2025 Total cholecystectomy with exploration of common bile duct HUNTER GUIDE,CLIP 5MM LIGAMAX FDA Start: 03-17-2025 Total cholecystectomy with exploration of common bile duct CLIP,MARCUS LENNON FDA Start: 03-17-2025 Total cholecystectomy with exploration of common bile duct CLIP,MARCUS LENNON FDA Start: 03-17-2025 Total cholecystectomy with exploration of common bile duct HUNTER GUIDE,CLIP 5MM LIGAMAX FDA Start: 03-17-2025 Total cholecystectomy with exploration of common bile duct CLIP,MARCUS LENNON FDA Start: 03-17-2025 Total cholecystectomy with exploration of common bile duct CLIP,HEMBLAKE WOOD WEROBERT FDA Start: 03-17-2025 Total cholecystectomy with exploration of common bile duct HUNTER GUIDE,CLIP 5MM LIGAMAX FDA Start: 03-17-2025 Total cholecystectomy with exploration of common bile duct CLIP,MARCUS LENNON FDA Start: 03-17-2025 Total cholecystectomy with exploration of common bile duct CLIP,MARCUS LENNON FDA Start: 03-17-2025 Total cholecystectomy with exploration of common bile duct HUNTER GUIDE,CLIP 5MM LIGAMAX FDA Start: 03-17-2025 Total cholecystectomy with exploration of common bile duct CLIP,HEMOLOCK MED WECK FDA Start: 03-17-2025 Total cholecystectomy with exploration of common bile duct CLIP,HEMOLOCK MED WECK FDA Start: 03-17-2025 Total cholecystectomy with exploration of common bile duct HUNTER GUIDE,CLIP 5MM LIGAMAX FDA Start: 03-17-2025 Total cholecystectomy with exploration of common bile duct CLIP,HEMOLOCK MED WECK FDA Start: 03-17-2025 Total cholecystectomy with exploration of common bile duct CLIP,HEMOLOCK MED WECK FDA Start: 03-17-2025 ERCP (endoscopic retrograde cholangiopancreatograp hy) Polymeric biliary stent, non-bioabsorbable ()[id number] FDA Start: 09-05-2024 ERCP (endoscopic retrograde cholangiopancreatograp hy) Polymeric biliary stent, non-bioabsorbable ()[id number] FDA Start: 09-05-2024 ERCP (endoscopic retrograde cholangiopancreatograp hy) ([id number]) Polymeric biliary stent, non-bioabsorbable ()[id number] FDA Start: 09-05-2024 ERCP (endoscopic retrograde cholangiopancreatograp [...] Start: 12-15-2024 ERCP (endoscopic retrograde cholangiopancreatograp hy) ([id number]) Polymeric biliary stent, non-bioabsorbable [id number] FDA Start: 05-05-2025 ERCP (endoscopic retrograde cholangiopancreatograp hy) STENT,RX PLASTIC BILIARY 10X7 FDA Start: 12-15-2024 ERCP (endoscopic retrograde cholangiopancreatograp hy) STENT,RX PLASTIC BILIARY 10X7 FDA Start: 12-15-2024 Goals Date Patient Goal Desired Activity /State Functional Status Date Assessment Result Facility 05-07-2025 Functional status Ambulates;Up ad jaimee [facility] Work Phone: 03-18-2025 Functional status Bathroom Privilege [facility] Work Phone: 12-16-2024 Functional status Ambulates [facility] Work Phone: 09-07-2024 Functional status Up ad jaimee [facility] Work Phone: Mental Status Date Assessment Result Facility 05-07-2025 Cognitive function Voice/Name [facility] Work Phone: 05-05-2025 Cognitive function Level Of Cons ciousness Awake;Alert;Appropriate;Follow s Commands [facility] Work Phone: 05-03-2025 Cognitive function Voice/Name [facility] Work Phone: 03-18-2025 Cognitive function Voice/Name [facility] Work Phone: 12-16-2024 Cognitive function Voice/Name [facility] Work Phone: 12-14-2024 Cognitive function Level Of Cons ciousness Awake;Alert;Appropriate;Follow s Commands [facility] Work Phone: 12-11-2024 Cognitive function Touch/Shaking [facility] Work Phone: 09-07-2024 Cognitive function Voice/Name [facility] Work Phone: Clinical Notes 01-29-2024 to 05-07-2025 Note Date & Type Note Facility 05-07-2025 Discharge summary [facility] 05-07-2025 Progress note [facility] 05-07-2025 Note [facility] 05-07-2025 Progress note Note Date/Time May 07, 2025 2:1 0pm [facility] Medical Records Department [address] [place] [address] Progress Note - Infect Disease 05/07/25 1027 MR#: [id number] Acct: [id number] Name: DIANE CONNORS Rep #:[id number] : 1985 39 From: Jared melendrez MD PCP: AGUILAR Giles Status:ADM I N Location: [place] [address] Physical Exam Narrative Feeling better, no abd pain, no fever, no n/v/d. Const alert and no apparent distress General Appearance: cooperative Resp normal air movement and clear to auscultation bilaterally Cardio regular rate and regular rhythm GI soft to palpation, non-tender and non-distended Skin no rashes or lesions noted ID ID: Route of nutrition/ use of supplements: [] Nutritional Intake: [] IV Site: [] Shultz Catheter: [] Assessment & Plan Assessment/Plan (1) Cholangitis: (2) Bacteremia due to Gram-negative bacteria: PLAN: Now s/p ERCP 05/05/25, feeling better, continue zosyn while inpatient. Ok for home with one week po augmentin 875mg bid. Will follow 05/07/25 1027 <Electronically signed by Jared Arevalo MD> Cosigner Signature (if applicable): CC: ~ Signed [facility] Work Phone: 1(235) 770-447608-07-2025 Progress note Author Denys Friend [facility] Note Date/Time May 06, 2025 4:4 4pm [facility] Medical Records Department [address] [place] [address] Progress Note 05/06/25 1634 MR#: [id number] Acct: [id number] Name: DIANE CONNORS Rep #:[id number] : 1985 39 From: Denys Babin DO PCP: AGUILAR Giles Status:ADM I N Location: [place] [address] Progress Note Patient is doing alot better and is not having any problems after the procedure yesterday. Physical Exam Const alert, oriented x3 and no apparent distress General Appearance: cooperative HEENT normocephalic, head/scalp atraumatic, moist oral mucous membranes and oropharynxnormal Eyes PERRL and EOMs intact bilaterally Neck no lymphadenopathy and supple Lymph Lymphatic: no lymphedema noted Resp normal respiratory effort, normal air movement and clear to auscultation bilaterally Cardio regular rate, regular rhythm, S1 normal heart sound, S2 normal heart sound and no murmurs GI soft to palpation and non-tender Extremity normal capillary refill, no clubbing, cyanosis or edema and no calf tenderness General Extremity: no tenderness to palpation of joints or extremities Skin General Skin Exam: no breakdown Neuro CN's II-XII intact bilaterally and no focal motor deficits Motor Exam: strength 5/5 throughout Psych thought process normal, cooperative and affect normal Appearance: appropriate Assessment & Plan Assessment/Plan (1) Hyperbilirubinemia: (2) Elevation of levels of liver transaminase levels: (3) Choledocholithiasis with acute cholecystitis: PLAN: Plan Patient is a 39-year-old male who presented to [facility] ED on with fevers and chills after recent ERCP. Reported fevers/chills with elevated transaminases after recent ERCP, recent history of choledocholithiasis and suspected history of drug-induced liver injury ? Patient is a 39-year-old male who presented to [facility] ED with fevers and chills after recent ERCP. Reported fevers/chills with elevated transaminases after recent ERCP, recent history of choledocholithiasis and suspected history of drug-induced liver injury ? He had ERCP done with choledocholithiasis removed with biliary tree swept. -Continue Abx Visit Charges Inpatient E&M: 45154 Subs Hosp L3 05/06/25 1644 <Electronically signed by Denys Friend DO> Denys Friend DO Cosigner Signature (if applicable): CC: ~ Signed [facility] Work Phone: 1(576) 446-581208-07-2025 Progress note Author Veronica Flores [facility] Note Date/Time May 06, 2025 3:5 8pm [facility] Medical Records Department [address] [place] [address] Progress Note 05/06/25 1232 MR#: [id number] Acct: [id number] Name: DIANE CONNORS Rep #:[id number] : 1985 39 From: Veronica Flores MD PCP: GAUILAR Giles Status:ADM I N Location: [place] [address] Subjective Subjective Patient seen and examined with his nurse by his bedside. He had no active complaints and had ERCP yesterday with stent insertion yesterday. HE is asking to go home today. However, he has positive blood cultures and is awaiting ID evaluation. Review of systems is otherwise negative. Liver enzymes are also trending downwards. Objective Data Objective Data Vital Signs: Vital Signs Temp Pulse Resp BP Pulse Ox O2 Del Method 97.3 F L 68 15 116/81 H 96 Room Air 05/06/25 09:42 05/06/25 09:42 05/06/25 09:42 05/06/25 09:42 05/06/25 09:42 05/06/25 09:42 Oxygen Delivery Method Room Air Weight: 218 lb 7.649 oz Body Mass Index (BMI) 31.3 Intake & Output: Intake and Output for Last 24 Hours 05/04/25 05/05/25 05/06/25 23:59 23:59 23:59 Intake Total 4493.33 / 4493.33 200 / 200 Balance 4493.33 / 4493.33 200 / 200 Lab / Micro Data 05/06/25 05:06 05/06/25 05:06 Labs: Laboratory Results - last 24 hr 05/06/25 05:06: WBC 7.4, RBC 4.37 L, Hgb 13.0, Hct 38.2 L, MCV 87.4, MCH 29.7, MCHC 34.0, RDW Std Deviation 41.6, RDW Coeff of Joanne 13.0, Plt Count 150, MPV 9.3, Immature Gran % (Auto) 0.700, Neut % (Auto) 82.5 H, Lymph % (Auto) 8.9 L, [place] % (Auto) 7.8, Eos % (Auto) 0.0, Baso % (Auto) 0.1, Absolute Neuts (auto) 6.1, Absolute Lymphs (auto) 0.66 L, Nucleated RBC % 0, Sodium 139, Potassium 4.1, Chloride 108, Carbon Dioxide 22.0, Anion Gap 10, BUN 9, Creatinine 0.84, Estim Creat Clear Calc 136.58, Est GFR (MDRD) Non-Af 112, BUN/Creatinine Ratio 10.6, Glucose 117 H, Calcium 8.4, Total Bilirubin 2.82 H, AST 112 H, ALT 374 H, Alkaline Phosphatase 109, Total Protein 5.7 L, Albumin 3.3 L, Globulin 2.3, Albumin/Globulin Ratio 1.4 Micro: Microbiology 05/05/25 00:55 Blood Culture (Wb) - Right Hand Blood Culture - Preliminary 05/04/25 23:30 Blood Culture (Wb) - Anticubital Left Blood Culture - Preliminary Radiography Diagnostic Testing: Radiology Impression Endo Retro Cholangiopancreatogram 05/05/25 16:30 IMPRESSION: As above. Reading Location: [facility] Physical Exam Const alert, oriented x3 and no apparent distress General Appearance: cooperative HEENT normocephalic, head/scalp atraumatic, moist oral mucous membranes and oropharynxnormal Eyes PERRL and EOMs intact bilaterally Neck no lymphadenopathy and supple Lymph Lymphatic: no lymphedema noted Resp normal respiratory effort, normal air movement and clear to auscultation bilaterally Cardio regular rate, regular rhythm, S1 normal heart sound, S2 normal heart sound and no murmurs GI soft to palpation and non-tender Extremity normal capillary refill, no clubbing, cyanosis or edema and no calf tenderness General Extremity: no tenderness to palpation of joints or extremities Skin General Skin Exam: no breakdown Neuro CN's II-XII intact bilaterally and no focal motor deficits Motor Exam: strength 5/5 throughout Psych thought process normal, cooperative and affect normal Appearance: appropriate Assessment & Plan Assessment/Plan (1) Epigastric abdominal pain: (2) Elevated liver enzymes: (3) Choledocholithiasis with acute cholecystitis: (4) Status post endoscopic retrograde cholangiopancreatography: PLAN: Plan #Recurrent acute choledocholithiasis * patient has had recurrent choledocholithiasis and chronic cholecystitis. He had subtotal laparoscopic cholecystectomy on 03/17/2025 with a fenestrating type drain placed. he had outpatient ERCP on 05/03/2025 with sphincterotomy, sludge and stones being swept from the duct and stent removed. He received IV cefazolin 2gram IV intraop and was discharged home with oral augmentin for 7 days. * However he came back to the ED with a complaint of fever and shakes and CT abdomen and pelvis showed gallbladder perforation, dilated biliary tree and cholangitis as well as choledocholithiasis. * blood cultures are growing gram negative rods, speciation is pending * on IV zosyn * GI on board. 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 He had a stent inserted in the common bile duct after biliary sphincterotomy and balloon extraction. * GI consulted as well as general surgery * #Gram negative bacteremia * Blood cultures positive for gram-negative rods. Speciation pending. Currently on IV Zosyn. ID consulted. Await recs. #Elevated liver enzymes * due to recurrent choledocholithiasis. management as above. * liver enzymes continue to trend downwards and I expect that this will continue since the stent has been inserted. * #DVT prophylaxis: SCDs Charges/Coding Visit Charges Inpatient E&M: 01532 Subs Hosp L2 05/06/25 1559 <Electronically signed by Veronica Flores MD> Veronica Flores MD Cosigner Signature (if applicable): CC: ~ Signed [facility] Work Phone: 1(136) 432-167908-07-2025 Progress note [facility] Medical Records Department [address] [place] [address] Progress Note 05/06/25 1634 MR#: [id number] Acct: [id number] Name: DIANE CONNORS Rep #:[id number] : 1985 39 From: Denys Babin DO PCP: AGUILAR Giles Status:ADM I N Location: [place] [address] Progress Note Patient is doing alot better and is not having any problems after the procedure yesterday. Physical Exam Const alert, oriented x3 and no apparent distress General Appearance: cooperative HEENT normocephalic, head/scalp atraumatic, moist oral mucous membranes and oropharynxnormal Eyes PERRL and EOMs intact bilaterally Neck no lymphadenopathy and supple Lymph Lymphatic: no lymphedema noted Resp normal respiratory effort, normal air movement and clear to auscultation bilaterally Cardio regular rate, regular rhythm, S1 normal heart sound, S2 normal heart sound and no murmurs GI soft to palpation and non-tender Extremity normal capillary refill, no clubbing, cyanosis or edema and no calf tenderness General Extremity: no tenderness to palpation of joints or extremities Skin General Skin Exam: no breakdown Neuro CN's II-XII intact bilaterally and no focal motor deficits Motor Exam: strength 5/5 throughout Psych thought process normal, cooperative and affect normal Appearance: appropriate Assessment & Plan Assessment/Plan (1) Hyperbilirubinemia: (2) Elevation of levels of liver transaminase levels: (3) Choledocholithiasis with acute cholecystitis: PLAN: Plan Patient is a 39-year-old male who presented to [facility] ED on with fevers and chills after recent ERCP. Reported fevers/chills with elevated transaminases after recent ERCP, recent history of choledocholithiasis and suspected history of drug-induced liver injury ? Patient is a 39-year-old male who presented to [facility] ED with fevers and chills after recent ERCP. Reported fevers/chills with elevated transaminases after recent ERCP, recent history of choledocholithiasis and suspected history of drug-induced liver injury ? He had ERCP done with choledocholithiasis removed with biliary tree swept. -Continue Abx Visit Charges Inpatient E&M: 99290 [facility] Hosp L3 05/06/25 1644 Denys Friend DO Cosigner Signature (if applicable): CC: ~ Signed [facility]08-07-2025 Progress note [facility] Medical Records Department [address] [place] [address] Progress Note 05/06/25 1232 MR#: [id number] Acct: [id number] Name: DIANE CONNORS Rep #:[id number] : 1985 39 From: Veronica Flores MD PCP: ROLY GilesC Status:ADM I N Location: [place] [address] Subjective Subjective Patient seen and examined with his nurse by his bedside. He had no active complaints and had ERCP yesterday with stent insertion yesterday. HE is asking to go home today. However, he has positive blood cultures and is awaiting ID evaluation. Review of systems is otherwise negative. Liver enzymes are also trending downwards. Objective Data Objective Data Vital Signs: Vital Signs Temp Pulse Resp BP Pulse Ox O2 Del Method 97.3 F L 68 15 116/81 H 96 Room Air 05/06/25 09:42 05/06/25 09:42 05/06/25 09:42 05/06/25 09:42 05/06/25 09:42 05/06/25 09:42 Oxygen Delivery Method Room Air Weight: 218 lb 7.649 oz Body Mass Index (BMI) 31.3 Intake & Output: Intake and Output for Last 24 Hours 05/04/25 05/05/25 05/06/25 23:59 23:59 23:59 Intake Total 4493.33 / 4493.33 200 / 200 Balance 4493.33 / 4493.33 200 / 200 Lab / Micro Data 05/06/25 05:06 05/06/25 05:06 Labs: Laboratory Results - last 24 hr 05/06/25 05:06: WBC 7.4, RBC 4.37 L, Hgb 13.0, Hct 38.2 L, MCV 87.4, MCH 29.7, MCHC 34.0, RDW Std Deviation 41.6, RDW Coeff of Joanne 13.0, Plt Count 150, MPV 9.3, Immature Gran % (Auto) 0.700, Neut % (Auto) 82.5 H, Lymph % (Auto) 8.9 L, [place] % (Auto) 7.8, Eos % (Auto) 0.0, Baso % (Auto) 0.1, AbsoluteNeuts (auto) 6.1, Absolute Lymphs (auto) 0.66 L, Nucleated RBC % 0, Sodium 139, Potassium 4.1, Chloride 108, Carbon Dioxide 22.0, Anion Gap 10, BUN 9, Creatinine 0.84, Estim Creat Clear Calc 136.58, Est GFR (MDRD) Non-Af 112, BUN/Creatinine Ratio 10.6, Glucose 117 H, Calcium 8.4, Total Bilirubin 2.82 H, AST 112 H, ALT 374 H, Alkaline Phosphatase 109, Total Protein 5.7 L, Albumin 3.3 L, Globulin 2.3, Albumin/Globulin Ratio 1.4 Micro: Microbiology 05/05/25 00:55 Blood Culture (Wb) - Right Hand Blood Culture - Preliminary 05/04/25 23:30 Blood Culture (Wb) - Anticubital Left Blood Culture - Preliminary Radiography Diagnostic Testing: Radiology Impression Endo Retro Cholangiopancreatogram 05/05/25 16:30 IMPRESSION: As above. Reading Location: [facility] Physical Exam Const alert, oriented x3 and no apparent distress General Appearance: cooperative HEENT normocephalic, head/scalp atraumatic, moist oral mucous membranes and oropharynxnormal Eyes PERRL and EOMs intact bilaterally Neck no lymphadenopathy and supple Lymph Lymphatic: no lymphedema noted Resp normal respiratory effort, normal air movement and clear to auscultation bilaterally Cardio regular rate, regular rhythm, S1 normal heart sound, S2 normal heart sound and no murmurs GI soft to palpation and non-tender Extremity normal capillary refill, no clubbing, cyanosis or edema and no calf tenderness General Extremity: no tenderness to palpation of joints or extremities Skin General Skin Exam: no breakdown Neuro CN's II-XII intact bilaterally and no focal motor deficits Motor Exam: strength 5/5 throughout Psych thought process normal, cooperative and affect normal Appearance: appropriate Assessment & Plan Assessment/Plan (1) Epigastric abdominal pain: (2) Elevated liver enzymes: (3) Choledocholithiasis with acute cholecystitis: (4) Status post endoscopic retrograde cholangiopancreatography: PLAN: Plan #Recurrent acute choledocholithiasis * patient has had recurrent choledocholithiasis and chronic cholecystitis. He had subtotal laparoscopic cholecystectomy on 03/17/2025 with a fenestrating type drain placed. he had outpatient ERCP on 05/03/2025 with sphincterotomy, sludge and stones being swept from the duct and stent removed. He received IV cefazolin 2gram IV intraop and was discharged home with oral augmentin for 7 days. * However he came back to the ED with a complaint of fever and shakes and CT abdomen and pelvis showed gallbladder perforation, dilated biliary tree and cholangitis as well as choledocholithiasis. * blood cultures are growing gram negative rods, speciation is pending * on IV zosyn * GI on board. 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 He had a stent inserted in the common bile duct after biliary sphincterotomy and balloon extraction. * GI consulted as well as general surgery * #Gram negative bacteremia * Blood cultures positive for gram-negative rods. Speciation pending. Currently on IV Zosyn. ID consulted. Await recs. #Elevated liver enzymes * due to recurrent choledocholithiasis. management as above. * liver enzymes continue to trend downwards and I expect that this will continue since the stent has been inserted. * #DVT prophylaxis: SCDs Charges/Coding Visit Charges Inpatient E&M: 02592 Subs Hosp L2 05/06/25 1558 Veronica Flores MD Cosigner Signature (if applicable): CC: ~ Signed [facility]08-07-2025 Consult note Author Jared Arevalo [facility] Note Date/Time May 06, 2025 11: 06am [facility] Medical Records Department [address] [place] [address] Consultation - Infectious Dx 05/06/25 1101 MR#: [id number] Acct: [id number] Name: DIANE CONNORS Rep #:[id number] : 1985 39 From: Jared melendrez MD PCP: AGUILAR Giles Status:ADM I N Location: [place] [address] Assessment & Plan Assessment/Plan (1) Cholangitis: (2) Bacteremia due to Gram-negative bacteria: PLAN: Now s/p ERCP 05/05/25, feeling better, continue zosyn. Will follow, thank you HPI Consult Data Date of Consult: 05/06/25 HPI Narrative Reason for Consultation: bacteremia HPI Narrative: DIANE CONNORS, is a 39 M with h/o recurrent gallstones and cholangitis, had lap dexter 02/2025. Recent ERCP 05/03, then next day developed shakes and chills. No abd pain, no n/v/d. Came to ED, admitted on zosyn, had ERCP 05/05, feeling bettertoday. Full ROS performed and neg except as noted above. [facility] Medical History Bacteremia due to Gram-negative bacteria [...] laparoscopic cholecystectomy History of ERCP Social History household members: spouse Smoking Status: Never smoker alcohol intake: never substance use type: does not use Physical Exam Const alert, oriented x3 and [...] Attestation: I reviewed the patient's lab results. 05/06/25 05:06 05/06/25 05:06 Labs: Laboratory Results - last 24 hr 05/06/25 05:06: WBC 7.4, RBC 4.37 L, Hgb 13.0, Hct 38.2 L, MCV 87.4, MCH 29.7, MCHC 34.0, RDW Std Deviation 41.6, RDW Coeff of Joanne 13.0, Plt Count 150, MPV 9.3, Immature Gran % (Auto) 0.700, Neut % (Auto) 82.5 H, Lymph % (Auto) 8.9 L, [place] % (Auto) 7.8, Eos % (Auto) 0.0, Baso % (Auto) 0.1, Absolute Neuts (auto) 6.1, Absolute Lymphs (auto) 0.66 L, Nucleated RBC % 0, Sodium 139, Potassium 4.1, Chloride 108, Carbon Dioxide 22.0, Anion Gap 10, BUN 9, Creatinine 0.84, Estim Creat Clear Calc 136.58, Est GFR (MDRD) Non-Af 112, BUN/Creatinine Ratio 10.6, Glucose 117 H, Calcium 8.4, Total Bilirubin 2.82 H, AST 112 H, ALT 374 H, Alkaline Phosphatase 109, Total Protein 5.7 L, Albumin 3.3 L, Globulin 2.3, Albumin/Globulin Ratio 1.4 Micro: Microbiology 05/05/25 00:55 Blood Culture (Wb) - Right Hand Blood Culture - Preliminary 05/04/25 23:30 Blood Culture (Wb) - Anticubital Left Blood Culture - Preliminary Imaging Radiology Impression Endo Retro Cholangiopancreatogram 05/05/25 16:30 IMPRESSION: As above. Reading Location: [id number] 05/06/25 1106 <Electronically signed by Jared Arevalo MD> Cosigner Signature (if applicable): CC: AGUILAR Arias~ Signed [facility] Work Phone: 1(520) 940-438508-07-2025 Consult note [facility] Medical Records Department [address] [place] [address] Consultation - Infectious Dx 05/06/25 110 MR#: [id number] Acct: [id number] Name: DIANE CONNORS Rep #:[id number] : 1985 39 From: Jared melendrez MD PCP: AGUILAR Giles Status:ADM I N Location: [place] [address] Assessment & Plan Assessment/Plan (1) Cholangitis: (2) Bacteremia due to Gram-negative bacteria: PLAN: Now s/p ERCP 05/05/25, feeling better, continue zosyn. Will follow, thank you HPI Consult Data Date of Consult: 05/06/25 HPI Narrative Reason for Consultation: bacteremia HPI Narrative: DIANE CONNORS, is a 39 M with h/o recurrent gallstones and cholangitis, had lap dexter 02/2025. Recent ERCP 05/03, then next day developed shakes and chills. No abd pain, no n/v/d. Came to ED, admitted on zosyn, had ERCP 05/05, feeling bettertoday. Full ROS performed and neg except as noted above. [facility] Medical History Bacteremia due to Gram-negative bacteria [...] laparoscopic cholecystectomy History of ERCP Social History household members: spouse Smoking Status: Never smoker alcohol intake: never substance use type: does not use Physical Exam Const alert, oriented x3 and [...] Attestation: I reviewed the patient's lab results. 05/06/25 05:06 05/06/25 05:06 Labs: Laboratory Results - last 24 hr 05/06/25 05:06: WBC 7.4, RBC 4.37 L, Hgb 13.0, Hct 38.2 L, MCV 87.4, MCH 29.7, MCHC 34.0, RDW Std Deviation 41.6, RDW Coeff of Joanne 13.0, Plt Count 150, MPV 9.3, Immature Gran % (Auto) 0.700, Neut % (Auto) 82.5 H, Lymph % (Auto) 8.9 L, [place] % (Auto) 7.8, Eos % (Auto) 0.0, Baso % (Auto) 0.1, AbsoluteNeuts (auto) 6.1, Absolute Lymphs (auto) 0.66 L, Nucleated RBC % 0, Sodium 139, Potassium 4.1, Chloride 108, Carbon Dioxide 22.0, Anion Gap 10, BUN 9, Creatinine 0.84, Estim Creat Clear Calc 136.58, Est GFR (MDRD) Non-Af 112, BUN/Creatinine Ratio 10.6, Glucose 117 H, Calcium 8.4, Total Bilirubin 2.82 H, AST 112 H, ALT 374 H, Alkaline Phosphatase 109, Total Protein 5.7 L, Albumin 3.3 L, Globulin 2.3, Albumin/Globulin Ratio 1.4 Micro: Microbiology 05/05/25 00:55 Blood Culture (Wb) - Right Hand Blood Culture - Preliminary 05/04/25 23:30 Blood Culture (Wb) - Anticubital Left Blood Culture - Preliminary Imaging Radiology Impression Endo Retro Cholangiopancreatogram 05/05/25 16:30 IMPRESSION: As above. Reading Location: [id number] 05/06/25 1106 Cosigner Signature (if applicable): CC: AGUILAR Arias~ Signed [facility]08-06-2025 Consult note Author Cayla Quiñonez [facility] Note Date/Time May 05, 2025 7:0 0pm [facility] Medical Records Department [address] [place] [address] Consultation - GI 05/05/25 0847 MR#: [id number] Acct: [id number] Name: DIANE CONNORS Rep #:[id number] : 1985 39 From: Cayla Stone PCP: AGUILAR Giles Status:ADM I N Location: [place] [address] ADDENDUM by Denys Babin DO on 05/05/25 at 1900 Addendum Patient was seen and evaluated at the bedside with the patient's . Agree with assessment and plan. Further recommendations to follow. 05/05/25 1900<Electronically signed by Denys Babin DO> Cosigner Signature (if applicable): cc: HAND PAINT MIXERGarrison Arias ~* Signed HPI Consult Data Date of Consult: 05/05/25 HPI Narrative Reason for Consultation: transaminitis post ERCP HPI Narrative: 08/12/2025 ABD US - CBD 9.6mm at the rick hepatis with suspected choledocholithiasis. GB moderately distended with small calculi. 2024 AST 68, ALT 78, ALP 199, T. BIli 23.9 2024 Diffuse intrahepatic and extrahepatic biliary ductal dilatation noted,as seen on the prior CT. Gallstone at the neck of the gallbladder. No definite ductal filling defects seen CT 2024 Diffuse intrahepatic and extrahepatic biliary ductal dilatation. gallstone is noted. Suspected filling defect in the common bile duct. ERCP 09/05/2024 Choledocholithiasis was found. Complete removal was accomplished by biliary sphincterotomy and balloon extraction. One temporary stent was placedinto the common bile duct. MRCP 09/06/2024 Cholelithiasis. Biliary stent. 09/11/2025 GGT 69, Tbili 14, Dbili 11.21, AST 64, ALT 70, ALP 155, CA19-9 63, TSH WNL, Copper 185, IgG 904 QUIQUE, Acute Hepatitis panel, HIV negative ERCP 12/11/2024 The biliary system were dilated, with a stone causing an obstruction. Choledocholithiasis was found. Complete removal was accomplished bybiliary sphincterotomy and balloon extraction. One stent was removed from the biliary tree. CT 12/14/2024 Mild degree of central intrahepatic biliary ductal dilatation and mild dilatation of the proximal portion of the common bile duct although it decreases in size acetabular is the head of the pancreas. ERCP 12/15/2024 The entire biliary tree was dilated, with a stone causing an obstruction. Choledocholithiasis was found. Complete removal was accomplished bybiliary sphincterotomy and balloon extraction. One stent was placed into the common bile duct. 12/16/2024 GGT 174, Tbili 2.75, Dbili 1.88, AST 29, ALT 149, ALP 136 - Augmentin BID x7d HIDA 02/24/2025 NONVISUALIZATION OF THE GALLBLADDER SUSPICIOUS FOR ACUTE CHOLECYSTITIS CCX 03/17/2025 Laparoscopic subtotal cholecystectomy, Severe chronic cholecystitis 03/18/2025 Tbili 4.25, AST 43, ALT 65, ALP 64 - Augmentin BID x7d HIDA 03/30/2025 1. No evidence of common duct obstruction. 2. Satisfactory hepatic uptake and excretion. ERCP 05/03/2025 sphincterotomy was performed, sludge and stones swept from duct and stent removed. He did receive Cefazolin 2g IV intraop and was discharged home with Augmentin 875/125 BID x7d, he received 1st dose this morning. CT 05/04/2025 Suspected cholecystitis possibly with gallbladder perforation. Dilated biliary tree, cholangitis, and choledocholithiasis. 05/04/2025 Presents to ED with c/o febrile at home 103 with shakes; AST 493, ALT 883, ALP 158, T. Bili 4.25, Dbili 3.03, Lipase 55, no leukocytosis - reports dark yellow urine - denies any weight loss - denies any N/V - denies any change in bowel habits - was tolerating PO yesterday w/o issue - NPO since last evening - took 1 dose of Tylenol prior to coming into ED last night - denies any OTC herbal supplements 05/05/2025 AST 319, ALT 620, ALP 131, T. Bili 4.53, no leukocytosis - Blood Cultures pending. [facility] Medical History Bacteremia due to Gram-negative bacteria [...] laparoscopic cholecystectomy History of ERCP Social History household members: spouse Smoking Status: Never smoker alcohol intake: never substance use type: does not use ROS ROS Narrative - reports weight gain post CCX - denies any N/V - denies any pain - denies any change in bowel habits Constitutional Constitutional: Reports as per HPI Gastrointestinal Gastrointestinal: Reports as per HPI Genitourinary Genitourinary: Reports as per HPI Physical Exam Const alert, oriented x3, no apparent distress and average body habitus General Appearance: cooperative and comfortable Orientation / Consciousness: awake, oriented to person, oriented to place and oriented to time Exam Limitations: no limitations HEENT normocephalic and hearing grossly normal bilaterally Head and Scalp: normal to inspection Face and Sinus: normal facial exam Eyes General Eye: normal appearance of both eyes Sclera: sclera normal Neck full ROM General: normal visual inspection and trachea midline Chest Chest: symmetrical chest wall rise Resp normal respiratory effort, normal air movement and clear to auscultation bilaterally Effort and Inspection: able to speak in complete sentences Auscultation: clear to auscultation bilaterally Cardio regular rate, regular rhythm, S1 normal heart sound and S2 normal heart sound GI normal to inspection, nondistended, normoactive bowel sounds and soft to palpation GI Narrative: moderate epigastric tenderness with palpation Extremity normal to inspection and no pedal edema Skin Hair: normal Nails: normal Neuro oriented x3 Psych Memory / Cognition: memory grossly intact Judgement: judgement good Medical Records Data Attestation: I reviewed the patient's medical records Lab / Micro Data Attestation: I reviewed the patient's lab results. 05/05/25 04:55 05/05/25 04:55 Labs: Laboratory Results - last 24 hr 05/04/25 23:30: WBC 9.6, RBC 5.17, Hgb 15.5, Hct 44.6, MCV 86.3, MCH 30.0, MCHC 34.8, RDW Std Deviation 39.7, RDW Coeff of Joanne 12.6, Plt Count 182, MPV 9.1, Immature Gran % (Auto) 0.900, Neut % (Auto) 91.5 H, Lymph % (Auto) 3.4 L, [place] %(Auto) 4.1, Eos % (Auto) 0.0, Baso [...] Globulin 2.6, Lipase 55, Procalcitonin 0.75 H 05/05/25 04:55: WBC 10.9, RBC 4.58 L, Hgb 13.7, Hct 40.1, MCV 87.6, MCH 29.9, MCHC 34.2, RDW Std Deviation 40.6, RDW Coeff of Joanne 12.7, Plt Count 162, MPV 9.1, Immature Gran % (Auto) 0.600, Neut % (Auto) 87.7 H, Lymph % (Auto) 4.3 L, [place] % (Auto) 7.2, Eos % (Auto) 0.0, Baso % (Auto) 0.2, Absolute Neuts (auto) 9.6 H, Absolute Lymphs (auto) 0.47 L, Nucleated RBC % 0, Sodium 140, Potassium 3.7, Chloride 107, Carbon Dioxide 22.3, Anion Gap 11, BUN 11, Creatinine 1.16, Estim Creat Clear Calc 96.91, Est GFR (MDRD) Non-Af 81, BUN/Creatinine Ratio 9.7L, Glucose 111 H, Calcium 8.1, Total Bilirubin 4.53 H, AST 319 H, ALT 620 H, Alkaline Phosphatase 131 H, Total Protein 5.7 L, Albumin 3.6, Globulin 2.0 L, Albumin/Globulin Ratio 1.8 Imaging Radiology Impression Abdomen/Pelvis CT 05/04/25 23:50 IMPRESSION: Suspected cholecystitis possibly with gallbladder perforation. Dilated biliary tree, cholangitis, and choledocholithiasis. Follow up imaging as clinically determined. Reading Location: [place] [address] Assessment & Plan Assessment/Plan (1) Elevated liver enzymes: (2) Status post endoscopic retrograde cholangiopancreatography: (3) Epigastric abdominal pain: PLAN: Plan 39y/o male s/p subtotal CCX 03/19/2025, underwent ERCP 05/03/2025 for biliary stentremoval, sphincterotomy was performed, sludge and stones swept from duct and stent removed. He did receive Cefazolin 2g IV intraop and was discharged home with Augmentin 875/125 BID x7d. He received two doses of PO ATB before presenting to ED last evening with c/o fever 103 at home and shakes. He did takeone dose of Tylenol prior to arrival and presented with Temp 100.5 and tachycardic 134. In ED labs were revealing for AST 493, ALT 883, ALP 158, T. Bili 4.25, D. bili 3.03, Lipase 55, no leukocytosis. He denies any pain, although abdominal exam is remarkable for epigastric tenderness with palpation. Denies any N/V, weight loss, or dark urine. No scleral icterus or jaundice noted. Temp 97.7, HR 101 this am. Blood cultures pending. IV Zosyn. Will plan for ERCP +/- SpyGlass with stent placement today. Detailed HPI as noted above. We have again transaminitis with atypical presentation with markedly elevated bilirubin (23.9) at time of initial presentation August 2024. However, he reports he was jaundice any asymptomaticfor a month prior to seeking treatment August 2024, this could account for theextreme elevation in bilirubin (total and direct) as bile was unable to drain properly from the liver due to obstruction. ERCP revealed diffuse dilation on the entire biliary tree which suggests the obstruction had been chronic. He has previously declined liver biopsy and continues to decline liver biopsy at this time. However, he is agreeable to seeing [employer] E[employer]ctor at [facility] or for a second opinion. Capacity Capacity Assessment Tool Patient lacks Decision Making Capacity: unable to understand, reason and deliberate health related choices: No Risk to self and or others?: No Risk of leaving the patient care unit and or hospital?: No 05/05/25 1023 <Electronically signed by Cayla SHEIKH> Cosigner Signature (if applicable): CC: AGUILAR Arias~ Signed [facility] Work Phone: 1(500) 970-994608-06-2025 Progress note Author Denys Babin [facility] Note Date/Time May 05, 2025 6:5 9pm [facility] Medical Records Department [address] [place] [address] Progress Note 05/05/25 1858 MR#: [id number] Acct: [id number] Name: DIANE CONNORS Rep #:[id number] : 1985 39 From: Denys Babin DO PCP: AGUILAR Giles Status:ADM I N Location: [place] [address] Progress Note After doing cholangioscopy we discovered that he had a large stone in the cysticduct that was pushing up against the common bile duct. That stone was removed with lithotripsy. A temporary common bile duct stent was placed and patient will continue on antibiotics. Physical Exam Const alert, oriented x3 and no apparent distress General Appearance: cooperative HEENT normocephalic, head/scalp atraumatic, moist oral mucous membranes and oropharynxnormal Eyes PERRL and EOMs intact bilaterally Neck no lymphadenopathy and supple Lymph Lymphatic: no lymphedema noted Resp normal respiratory effort, normal air movement and clear to auscultation bilaterally Cardio regular rate, regular rhythm, S1 normal heart sound, S2 normal heart sound and no murmurs GI GI Narrative: mild epigastric and RUQ tenderness, no guarding or rebound tenderness. Extremity General Extremity: no tenderness to palpation of joints or extremities Skin General Skin Exam: no breakdown Neuro CN's II-XII intact bilaterally and no focal motor deficits Motor Exam: strength 5/5 throughout Psych thought process normal, cooperative and affect normal Appearance: appropriate Assessment & Plan Assessment/Plan (1) Elevated liver enzymes: (2) Epigastric abdominal pain: (3) Pyrexia: QUALIFIERS: Fever type: post-procedural Qualified Code(s): R50.82- Postprocedural fever PLAN: Patient can have a regular diet. Visit Charges Inpatient E&M: 70757 Subs Hosp L2 05/05/251858 <Electronically signed by Denys Babin DO> Denys Babin DO Cosigner Signature (if applicable): CC: ~ Signed [facility] Work Phone: 1(219) 483-968408-06-2025 Consult note Author Rafael Hooper [facility] Note Date/Time May 05, 2025 6:4 8pm [facility] Medical Records Department [address] [place] [address] Anesthesia Postop Eval I 05/05/251846 MR#: [id number] Acct: [id number] Name: CONNORSDIANE A Rep #:[id number] : 1985 39 From: Rafael Hooper MD PCP: AGUILAR Giles Status:ADM I N Y Race: C Location: [place] [address] Anesthesia: Postop Eval I Current Vital Signs Temperature: 97.8 F Pulse Rate: 98 Blood Pressure: 124/82 Respiratory Rate: 16 Pulse Ox: 96 Oxygen Delivery Method: Room Air Assessment Airway patent: Yes Spontaneous unlabored respirations: Yes Mental status: Awake nausea: No Vomiting: No Anesthesia Complication: No Fluid Hydration Crystalloid volume administer (ml): 1,000 Total IV fluid infused: 1,000 Progress Note Anesthesia document: Postop Eval 1 completed: Yes 05/05/251847 <Electronically signed by Rafael Hooper MD > Date _ Rafael Hooper MD Cosigner Signature: Date CC: ~ Signed [facility] Work Phone: 1(835) 873-729108-06-2025 Consult note Author Rafael Hooper [facility] Note Date/Time May 05, 2025 6:4 8pm [facility] Medical Records Department [address] [place] [address] Anesthesia Postop Eval II 05/05/251847 MR#: [id number] Acct: [id number] Name: DIANE CONNORS Rep #:[id number] : 1985 39 From: Rafael Hooper MD PCP: AGUILAR Giles Status:ADM I N Y Race: C Location: [address] Anesthesia Postop Eval I Sum Postop Eval Completion status Anesthesia document: Postop Eval 1 completed: Yes Anesthesia Postop Eval I Summary Anesthesia Postop Eval I Summary: Anesthesia Postop Eval I: Assessment Summary Airway patent Yes 05/05/25 18:48 Spontaneous unlabored Yes 05/05/25 18:48 respirations Mental status Awake 05/05/25 18:48 nausea No 05/05/25 18:48 Vomiting No 05/05/25 18:48 Anesthesia Postop Eval I: Fluid Summary Crystalloid volume administer 1,000 05/05/25 18:48 (ml) Colloids volume administered ( ml) Blood Product volume administered (ml) Total IV fluid infused 1,000 05/05/25 18:48 Anesthesia Postop Eval I: Summary Notes Anesthesia Complication No 05/05/25 18:48 Anesthesia Complication Comment: Post-operative progress note Anesthesia: Postop Eval II Evaluation Mental status: Awake Pain Level: 0 nausea: No Vomiting: No 05/05/251847 <Electronically signed by Rafael Hooper MD > Date _ Rafael Hooper MD Cosigner Signature: Date CC: ~ Signed [facility] Work Phone: 1(610) 601-954108-06-2025 Radiology Diagnostic study note [facility] Imaging Services [address] [place] [id number] ERCP Biliary/Pancreas MR#: [id number] Acct: [id number] Name: DIANE CONNORS Rep #: [id number] : 1985 M 39 From: Jaylen Watts MD PCP: AGUILAR Giles Status: ADM I N Study:ERCP Biliary/Pancreas Date of Exam: 05/05/25 Exam# [id number] Ordering Dr: Kayleigh Babin DO PROCEDURE: ERCP BILIARY/PANCREAS 05/05/2025 REASON FOR EXAM: PAIN TECHNIQUE: ERCP BILIARY/PANCREAS COMPARISON: 05/05/2025 CT. FINDINGS: ERCP was performed. The biliary system is visualized. 184.2 seconds of fluoroscopic time. 61.50 mGy. See procedure report for full details. RAD/ERCP Biliary/Pancreas IMPRESSION: As above. Reading Location: [id number] CC: AGUILAR Arias; Denys Babin DO ~ Critical Power Install Technician: Signed [facility]08-06-2025 Consult note [facility] Medical Records Department [address] [place] [address] Consultation - GI 05/05/25 0847 MR#: [id number] Acct: [id number] Name: DIANE CONNORS Rep #:[id number] : 1985 39 From: Cayla Stone PCP: AGUILAR Giles Status:ADM I N Location: [place] [id number] ADDENDUM by Denys Babin DO on 05/05/25 at 1900 Addendum Patient was seen and evaluated at the bedside with the patient's . Agree with assessment and plan. Further recommendations to follow. 05/05/25 1900 Cosigner Signature (if applicable): cc: AGUILAR Silva Juana ~* Signed HPI Consult Data Date of Consult: 05/05/25 HPI Narrative Reason for Consultation: transaminitis post ERCP HPI Narrative: 08/12/2025 ABD US - CBD 9.6mm at the rick hepatis with suspected choledocholithiasis. GB moderately distended with small calculi. 2024 AST 68, ALT 78, ALP 199, T. BIli 23.9 2024 Diffuse intrahepatic and extrahepatic biliary ductal dilatation noted,as seen on the prior CT. Gallstone at the neck of the gallbladder. No definite ductal filling defects seen CT 2024 Diffuse intrahepatic and extrahepatic biliary ductal dilatation. gallstone is noted. Suspected filling defect in the common bile duct. ERCP 09/05/2024 Choledocholithiasis was found. Complete removal was accomplished by biliary sphincterotomy and balloon extraction. One temporary stent was placedinto the common bile duct. MRCP 09/06/2024 Cholelithiasis. Biliary stent. 09/11/2025 GGT 69, Tbili 14, Dbili 11.21, AST 64, ALT 70, ALP 155, CA19-9 63, TSH WNL, Copper 185, IgG 904 QUIQUE, Acute Hepatitis panel, HIV negative ERCP 12/11/2024 The biliary system were dilated, with a stone causing an obstruction. Choledocholithiasis was found. Complete removal was accomplished bybiliary sphincterotomy and balloon extraction. One stent was removed from the biliary tree. CT 12/14/2024 Mild degree of central intrahepatic biliary ductal dilatation and mild dilatation of the proximal portion of the common bile duct although it decreases in size acetabular is the head of the pancreas. ERCP 12/15/2024 The entire biliary tree was dilated, with a stone causing an obstruction. Choledocholithiasis was found. Complete removal was accomplished bybiliary sphincterotomy and balloon extraction. One stent was placed into the common bile duct. 12/16/2024 GGT 174, Tbili 2.75, Dbili 1.88, AST 29, ALT 149, ALP 136 - Augmentin BID x7d HIDA 02/24/2025 NONVISUALIZATION OF THE GALLBLADDER SUSPICIOUS FOR ACUTE CHOLECYSTITIS CCX 03/17/2025 Laparoscopic subtotal cholecystectomy, Severe chronic cholecystitis 03/18/2025 Tbili 4.25, AST 43, ALT 65, ALP 64 - Augmentin BID x7d HIDA 03/30/2025 1. No evidence of common duct obstruction. 2. Satisfactory hepatic uptake and excretion. ERCP 05/03/2025 sphincterotomy was performed, sludge and stones swept from duct and stent removed. Viviana receive Cefazolin 2g IV intraop and was discharged home with Augmentin 875/125 BID x7d, he received 1st dose this morning. CT 05/04/2025 Suspected cholecystitis possibly with gallbladder perforation. Dilated biliary tree, cholangitis, and choledocholithiasis. 05/04/2025 Presents to ED with c/o febrile at home 103 with shakes; AST 493, ALT 883, ALP 158, T. Bili 4.25, Dbili 3.03, Lipase 55, no leukocytosis - reports dark yellow urine - denies any weight loss - denies any N/V - denies any change in bowel habits - was tolerating PO yesterday w/o issue - NPO since last evening - took 1 dose of Tylenol prior to coming into ED last night - denies any OTC herbal supplements 05/05/2025 AST 319, ALT 620, ALP 131, T. Bili 4.53, no leukocytosis - Blood Cultures pending. [facility] Medical History Bacteremia due to Gram-negative bacteria [...] laparoscopic cholecystectomy History of ERCP Social History household members: spouse Smoking Status: Never smoker alcohol intake: never substance use type: does not use ROS ROS Narrative - reports weight gain post CCX - denies any N/V - denies any pain - denies any change in bowel habits Constitutional Constitutional: Reports as per HPI Gastrointestinal Gastrointestinal: Reports as per HPI Genitourinary Genitourinary: Reports as per HPI Physical Exam Const alert, oriented x3, no apparent distress and average body habitus General Appearance: cooperative and comfortable Orientation / Consciousness: awake, oriented to person, oriented to place and oriented to time Exam Limitations: no limitations HEENT normocephalic and hearing grossly normal bilaterally Head and Scalp: normal to inspection Face and Sinus: normal facial exam Eyes General Eye: normal appearance of both eyes Sclera: sclera normal Neck full ROM General: normal visual inspection and trachea midline Chest Chest: symmetrical chest wall rise Resp normal respiratory effort, normal air movement and clear to auscultation bilaterally Effort and Inspection: able to speak in complete sentences Auscultation: clear to auscultation bilaterally Cardio regular rate, regular rhythm, S1 normal heart sound and S2 normal heart sound GI normal to inspection, nondistended, normoactive bowel sounds and soft to palpation GI Narrative: moderate epigastric tenderness with palpation Extremity normal to inspection and no pedal edema Skin Hair: normal Nails: normal Neuro oriented x3 Psych Memory / Cognition: memory grossly intact Judgement: judgement good Medical Records Data Attestation: I reviewed the patient's medical records Lab / Micro Data Attestation: I reviewed the patient's lab results. 05/05/25 04:55 05/05/25 04:55 Labs: Laboratory Results - last 24 hr 05/04/25 23:30: WBC 9.6, RBC 5.17, Hgb 15.5, Hct 44.6, MCV 86.3, MCH 30.0, MCHC 34.8, RDW Std Deviation 39.7, RDW Coeff of Joanne 12.6, Plt Count 182, MPV 9.1, Immature Gran % (Auto) 0.900, Neut % (Auto) 91.5 H, Lymph % (Auto) 3.4 L, [place] %(Auto) 4.1, Eos % (Auto) 0.0, Baso [...] Globulin 2.6, Lipase 55, Procalcitonin 0.75 H 05/05/25 04:55: WBC 10.9, RBC 4.58 L, Hgb 13.7, Hct 40.1, MCV 87.6, MCH 29.9, MCHC 34.2, RDW Std Deviation 40.6, RDW Coeff of Joanne 12.7, Plt Count 162, MPV 9.1, Immature Gran % (Auto) 0.600, Neut % (Auto) 87.7 H, Lymph % (Auto) 4.3 L, [place] % (Auto) 7.2, Eos % (Auto) 0.0, Baso % (Auto) 0.2, Absolute Neuts (auto) 9.6 H, Absolute Lymphs (auto) 0.47 L, Nucleated RBC % 0, Sodium 140, Potassium 3.7, Chloride 107, Carbon Dioxide 22.3, Anion Gap 11, BUN 11, Creatinine 1.16, Estim Creat Clear Calc 96.91,Est GFR (MDRD) Non-Af 81, BUN/Creatinine Ratio 9.7L, Glucose 111 H, Calcium 8.1, Total Bilirubin 4.53 H, AST 319 H, ALT 620 H, Alkaline Phosphatase 131 H, Total Protein 5.7 L, Albumin 3.6, Globulin 2.0 L, Albumin/Globulin Ratio 1.8 Imaging Radiology Impression Abdomen/Pelvis CT 05/04/25 23:50 IMPRESSION: Suspected cholecystitis possibly with gallbladder perforation. Dilated biliary tree, cholangitis, and choledocholithiasis. Follow up imaging as clinically determined. Reading Location: [place] [address] Assessment & Plan Assessment/Plan (1) Elevated liver enzymes: (2) Status post endoscopic retrograde cholangiopancreatography: (3) Epigastric abdominal pain: PLAN: Plan 39y/o male s/p subtotal CCX 03/19/2025, underwent ERCP 05/03/2025 for biliary stentremoval, sphincterotomy was performed, sludge and stones swept from duct and stent removed. He did receive Cefazolin 2gIV intraop and was discharged home with Augmentin 875/125 BID x7d. He received two doses of PO ATB before presenting to ED last evening with c/o fever 103 at home and shakes. He did takeone dose of Tylenol prior to arrival and presented with Temp 100.5 and tachycardic 134. In ED labs were revealingfor AST 493, ALT 883, ALP 158, T. Bili 4.25, D. bili 3.03, Lipase 55, no leukocytosis. He denies any pain, although abdominal exam is remarkable for epigastric tenderness with palpation. Denies any N/V, weight loss, or dark urine. No scleral icterus or jaundice noted. Temp 97.7, HR 101 this am. Blood cultures pending. IV Zosyn. Will plan for ERCP +/- SpyGlass with stent placement today. Detailed HPI as noted above. We have again transaminitis with atypical presentation with markedly elevated bilirubin (23.9) at time of initial presentation August 2024. However, he reports he was jaundice any asymptomaticfor a month prior to seeking treatment August 2024, this could account fortheextreme elevation in bilirubin (total and direct) as bile was unable to drain properly from the liver due to obstruction. ERCP revealed diffuse dilation on the entire biliary tree which suggests the obstruction had been chronic. He has previously declined liver biopsy and continues to decline liver biopsy at this time. However, he is agreeable to seeing Structural Steel Erector at [facility] or for a second opinion. Capacity Capacity Assessment Tool Patient lacks Decision Making Capacity: unable to understand, reason and deliberate health related choices: No Risk to self and or others?: No Risk of leaving the patient care unit and or hospital?: No 05/05/25 1023 Cosigner Signature (if applicable): CC: AGUILAR Arias~ Signed [facility]08-06-2025 Progress note [facility] Medical Records Department [address] [place] [address] Progress Note 05/05/25 0524 MR#: [id number] Acct: [id number] Name: DIANE CONNORS Rep #:[id number] : 1985 39 From: Denys Babin DO PCP: AGUILAR Giles Status:ADM I N Location: [place] [address] Progress Note After doing cholangioscopy we discovered that he had a large stone in the cysticduct that was pushing up against the common bile duct. That stone was removed with lithotripsy. A temporary common bileduct stent was placed and patient will continue on antibiotics. Physical Exam Const alert, oriented x3 and no apparent distress General Appearance: cooperative HEENT normocephalic, head/scalp atraumatic, moist oral mucous membranes and oropharynxnormal Eyes PERRL and EOMs intact bilaterally Neck no lymphadenopathy and supple Lymph Lymphatic: no lymphedema noted Resp normal respiratory effort, normal air movement and clear to auscultation bilaterally Cardio regular rate, regular rhythm, S1 normal heart sound, S2 normal heart sound and no murmurs GI GI Narrative: mild epigastric and RUQ tenderness, no guarding or rebound tenderness. Extremity General Extremity: no tenderness to palpation of joints or extremities Skin General Skin Exam: no breakdown Neuro CN's II-XII intact bilaterally and no focal motor deficits Motor Exam: strength 5/5 throughout Psych thought process normal, cooperative and affect normal Appearance: appropriate Assessment & Plan Assessment/Plan (1) Elevated liver enzymes: (2) Epigastric abdominal pain: (3) Pyrexia: QUALIFIERS: Fever type: post-procedural Qualified Code(s): R50.82- Postprocedural fever PLAN: Patient can have a regular diet. Visit Charges Inpatient E&M: 91498 Subs Hosp L2 05/05/25 1859 Denys Babin DO Cosigner Signature (if applicable): CC: ~ Signed [facility]08-06-2025 Consult note [facility] Medical Records Department [address] [place] [address] Anesthesia Postop Eval I 05/05/25 1847 MR#: [id number] Acct: [id number] Name: DIANE CONNORS Rep #:[id number] : 1985 39 From: Rafael Hooper MD PCP: AGUILAR Giles Status:ADM I N Y Race: C Location: [address] Anesthesia: Postop Eval I Current Vital Signs Temperature: 97.8 F Pulse Rate: 98 Blood Pressure: 124/82 Respiratory Rate: 16 Pulse Ox: 96 Oxygen Delivery Method: Room Air Assessment Airway patent: Yes Spontaneous unlabored respirations: Yes Mental status: Awake nausea: No Vomiting: No Anesthesia Complication: No Fluid Hydration Crystalloid volume administer (ml): 1,000 Total IV fluid infused: 1,000 Progress Note Anesthesia document: Postop Eval 1 completed: Yes 05/05/25 184 > Date _ Rafael Levineign Signature: Date CC: ~ Signed [facility]08-06-2025 Consult note [facility] Medical Records Department [address] [place] [address] Anesthesia Postop Eval II 05/05/251847 MR#: [id number] Acct: [id number] Name: DIANE CONNORS Rep #:[id number] : 1985 39 From: Rafael Hooper MD PCP: AGUILAR Giles Status:ADM I N Y Race: C Location: [place] [address] Anesthesia Postop Eval I Sum Postop Eval Completion status Anesthesia document: Postop Eval 1 completed: Yes Anesthesia Postop Eval I Summary Anesthesia Postop Eval I Summary: Anesthesia Postop Eval I: Assessment Summary Airway patent Yes 05/05/25 18:48 Spontaneous unlabored Yes 05/05/25 18:48 respirations Mental status Awake 05/05/25 18:48 nausea No 05/05/25 18:48 Vomiting No 05/05/25 18:48 Anesthesia Postop Eval I: Fluid Summary Crystalloid volume administer 1,000 05/05/25 18:48 (ml) Colloids volume administered ( ml) Blood Product volume administered (ml) Total IV fluid infused 1,000 05/05/25 18:48 Anesthesia Postop Eval I: Summary Notes Anesthesia Complication No 05/05/25 18:48 Anesthesia Complication Comment: Post-operative progress note Anesthesia: Postop Eval II Evaluation Mental status: Awake Pain Level: 0 nausea: No Vomiting: No 05/05/25 1848 > Date _ Rafael Marrero Signature: Date CC: ~ Signed [facility]08-06-2025 Procedure note [facility] Medical Records Department [address] [place] [address] ERCP Report MR#: [id number] Acct: [id number] Name: DIANE CONNORS Rep #:[id number] : 1985 39 From: Denys Babin DO PCP: AGUILAR Giles Status:ADM I N Patient Name: Diane Connors Procedure Date: 05/05/2025 4:17 PM Date of : 1985 Age: 39 Procedure: ERCP Indications: Suspected ascending cholangitis, Jaundice Providers: Denys Babin DO Medicines: Monitored Anesthesia Care Patient Profile: This is a 39 year old male. Refer to note in patient chart for documentation of history and physical. Patient has symptoms of acute right upper quadrant abdominal pain and acute jaundice. He is status post laparoscopic cholecystectomy within the past six months. Complications: No [...] and advanced to the duodenum and used for direct visualization of the bile duct. The ERCP was accomplished without difficulty. The patient tolerated the procedure well. Scope In: 4:52:51 PM Scope Out: 6:27:52 PM Total Procedure Duration Time 1 hour 35 minutes 1 second Findings: The pocketed spring machine operator film was normal. The esophagus was successfully [...] Contrast extended to the entire biliary tree. The upper third of the main bile duct contained a single localized stenosis 6 mm in length. The upper third of the main bile duct, common bile duct, hepatic duct bifurcation and left and right hepatic ducts and all intrahepatic branches were moderately dilated, uncertain significance. The largest diameter was 15 mm. A cholecystectomy had been performed. A 5 mm biliary sphincterotomy was made with a traction (standard) sphincterotome using ERBE electrocautery. There was no post-sphincterotomy bleeding. The bile duct was explored endoscopically using the SpRpptrip.com direct visualization system. The SpyScope was advanced to the left intrahepatic duct(s). Visibility with the scope was good. The cystic duct contained one stone, which was 30 mm in diameter. Electrohydraulic lithotripsy was successful. The biliary tree was swept with a 15 mm balloon starting at the upper third of the main bile duct, middle third of the main bile duct, lower third of the main duct, cystic duct, left intrahepatic duct(s) and right intrahepatic duct(s). Sludge was swept from the duct. All stones were removed. One 10 Fr by 12 cm temporary stent was placed 5 cm into the common bile duct. Bile flowed through the stent. The stent was in good position. Impression: - A single localized biliary stricture was found in the upper third of the main bile duct. The stricture was indeterminate. - The upper third of the main bile duct, left and right hepatic ducts and all intrahepatic branches and common bile duct were moderately dilated, uncertain significance. - The patient has had a cholecystectomy. - Choledocholithiasis was found. Complete removal was accomplished by biliary sphincterotomy and balloon extraction. - A biliary sphincterotomy was performed. - Lithotripsy was successful. - The biliary tree was swept. - One temporary stent was placed into the common bile duct. Procedure Code(s): --- Professional --- 93393, Endoscopic retrograde cholangiopancreatography (ERCP); with placement of endoscopic stent into biliary or pancreatic duct, including pre- and post-dilation and guide wire passage, when performed, including sphincterotomy, when performed, each stent 24269, Endoscopic retrograde cholangiopancreatography (ERCP); with destruction of calculi, any method (eg, mechanical, electrohydraulic, lithotripsy) 64101, Endoscopic cannulation of papilla with direct visualization of pancreatic/common bile duct(s) (List separately in addition to code(s) for primary procedure) 69328, 26, Endoscopic catheterization of the biliary ductal system, radiological supervision and interpretation CPT copyright 2021 [employer]. All rights reserved. The codes documented in this report are preliminary and upon cash applications coordinator review may be revised to meet current compliance requirements. Denys Babin DO 05/05/2025 6:40:04 PM This report has been signed electronically. Number of Addenda: 0 Note Initiated On: 05/05/2025 4:17 PM 05/05/25 1840 Date _ Denys Babin DO Cosigner Signature: Date (if indicated) CC: AGUILAR Arias; Denys Babin DO ~ Date Dictated: 05/05/25 1617 Date Transcribed: Critical Power Install Technician: RF Signed [facility]08-06-2025 Procedure note [facility] Medical Records Department [address] [place] [address] Provation Physician Letter MR#: [id number] Acct: [id number] Name: DIANE CONNORS Rep #:[id number] : 1985 39 From: Denys Babin DO PCP: AGUILAR Giles Status:ADM I N 05/05/2025 Shira Arias Re : ERCP procedure for Diane Connors [place] This procedure was performed on Monday, May 05, 2025. My impressions and recommendations are as follows: Impressions : - A single localized biliary stricture was found in the upper third of the main bile duct. The stricture was indeterminate. - The upper third of the main bile duct, left and right hepatic ducts and all intrahepatic branches and common bile duct were moderately dilated, uncertain significance. - The patient has had a cholecystectomy. - Choledocholithiasis was found. Complete removal was accomplished by biliary sphincterotomy and balloon extraction. - A biliary sphincterotomy was performed. - Lithotripsy was successful. - The biliary tree was swept. - One temporary stent was placed into the common bile duct. Recommendations : My findings are described in the full procedure note, which is enclosed. If I can be of further assistance, please feel free to contact me at . Sincerely, Denys Babin DO 05/05/2025 6:40:04 PM This report has been signed electronically. 05/05/25 1840 Date _ Denys Abel Signature: Date (if indicated) CC: AGUILAR Arias; Dr. Khang Lopez MD; Dr. Eileen Brunson MD; Dr. Veronica Flores MD~ Date Dictated: 05/05/25 1617 Date Transcribed: Critical Power Install Technician: RF Signed [facility]08-06-2025 Progress note Author [facility] Note Date/Time May 05, 2025 4:3 4pm [facility] Medical Records Department [address] [place] [address] Progress Note 05/05/251613 MR#: [id number] Acct: [id number] Name: DIANE CONNORS Rep #:[id number] : 1985 39 From: Veronica Flores MD PCP: AGUILAR Giles Status:ADM I N Location: [place] [address] Subjective Subjective Patient seen and examined with his nurse by his bedside. His was by his bedside. He admitted to some abdominal pain. He denied any fever, chills, cough, chest pain, palpitations, dizziness, nausea, vomiting or any other symptoms. Objective Data Objective Data Vital Signs: Vital Signs Temp Pulse Resp BP Pulse Ox O2 Del Method 98.5 F 109 H 18 113/85 H 94 Room Air 05/05/25 15:02 05/05/25 15:02 05/05/25 15:02 05/05/25 15:02 05/05/25 15:02 05/05/25 12:00 Oxygen Delivery Method Room Air Weight: 209 lb 3.499 oz Body Mass Index (BMI) 29.9 Intake & Output: Intake and Output for Last 24 Hours 05/03/25 05/04/25 05/05/25 23:59 23:59 23:59 Intake Total 3343.33 / 3343.33 Balance 3343.33 / 3343.33 Lab / Micro Data 05/05/25 04:55 05/05/25 04:55 Labs: Laboratory Results - last 24 hr 05/04/25 23:30: WBC 9.6, RBC 5.17, Hgb 15.5, Hct 44.6, MCV 86.3, MCH 30.0, MCHC 34.8, RDW Std Deviation 39.7, RDW Coeff of Joanne 12.6, Plt Count 182, MPV 9.1, Immature Gran % (Auto) 0.900, Neut % (Auto) 91.5 H, Lymph % (Auto) 3.4 L, [place] %(Auto) 4.1, Eos % (Auto) 0.0, Baso [...] Globulin 2.6, Lipase 55, Procalcitonin 0.75 H 05/05/25 04:55: WBC 10.9, RBC 4.58 L, Hgb 13.7, Hct 40.1, MCV 87.6, MCH 29.9, MCHC 34.2, RDW Std Deviation 40.6, RDW Coeff of Joanne 12.7, Plt Count 162, MPV 9.1, Immature Gran % (Auto) 0.600, Neut % (Auto) 87.7 H, Lymph % (Auto) 4.3 L, [place] % (Auto) 7.2, Eos % (Auto) 0.0, Baso % (Auto) 0.2, Absolute Neuts (auto) 9.6 H, Absolute Lymphs (auto) 0.47 L, Nucleated RBC % 0, Sodium 140, Potassium 3.7, Chloride 107, Carbon Dioxide 22.3, Anion Gap 11, BUN 11, Creatinine 1.16, Estim Creat Clear Calc 96.91, Est GFR (MDRD) Non-Af 81, BUN/Creatinine Ratio 9.7L, Glucose 111 H, Calcium 8.1, Total Bilirubin 4.53 H, AST 319 H, ALT 620 H, Alkaline Phosphatase 131 H, Total Protein 5.7 L, Albumin 3.6, Globulin 2.0 L, Albumin/Globulin Ratio 1.8 Micro: Microbiology 05/05/25 00:55 Blood Culture (Wb) - Right Hand Blood Culture - Preliminary 05/04/25 23:30 Blood Culture (Wb) - Anticubital Left Blood Culture - Preliminary Radiography Diagnostic Testing: Radiology Impression Abdomen/Pelvis CT 05/04/25 23:50 IMPRESSION: Suspected cholecystitis possibly with gallbladder perforation. Dilated biliary tree, cholangitis, and choledocholithiasis. Follow up imaging as clinically determined. Reading Location: [place] [address] Physical Exam Const alert, oriented x3 and no apparent distress General Appearance: cooperative HEENT normocephalic, head/scalp atraumatic, moist oral mucous membranes and oropharynxnormal Eyes PERRL and EOMs intact bilaterally Neck no lymphadenopathy and supple Lymph Lymphatic: no lymphedema noted Resp normal respiratory effort, normal air movement and clear to auscultation bilaterally Cardio regular rate, regular rhythm, S1 normal heart sound, S2 normal heart sound and no murmurs GI GI Narrative: mild epigastric and RUQ tenderness, no guarding or rebound tenderness. Extremity General Extremity: no tenderness to palpation of joints or extremities Skin General Skin Exam: no breakdown Neuro CN's II-XII intact bilaterally and no focal motor deficits Motor Exam: strength 5/5 throughout Psych thought process normal, cooperative and affect normal Appearance: appropriate Assessment & Plan Assessment/Plan (1) Epigastric abdominal pain: (2) Elevated liver enzymes: (3) Choledocholithiasis with acute cholecystitis: (4) Status post endoscopic retrograde cholangiopancreatography: PLAN: Plan #Recurrent acute choledocholithiasis * patient has had recurrent choledocholithiasis and chronic cholecystitis. He had subtotal laparoscopic cholecystectomy on 03/17/2025 with a fenestrating type drain placed. he had outpatient ERCP on 05/03/2025 with sphincterotomy, sludge and stones being swept from the duct and stent removed. He received IV cefazolin 2gram IV intraop and was discharged home with oral augmentin for 7 days. * However he came back to the ED with a complaint of fever and shakes and CT abdomen and pelvis showed gallbladder perforation, dilated biliary tree and cholangitis as well as choledocholithiasis. * blood cultures are growing gram negative rods, speciation is pending * on IV zosyn * GI consulted as well as general surgery * hydrate gently with iVF * per GI, patient to have repeat ERCP for decompression of the dilated biliary tree. * #Elevated liver enzymes * due to recurrent choledocholithiasis. management as above. * liver enzymes have started trending downwards. * #DVT prophylaxis: SCDs Charges/Coding Visit Charges Inpatient E&M: 58935 Subs Hosp L2 05/05/25 1634 <Electronically signed by Veronica Flores MD> Veronica Flores MD Cosigner Signature (if applicable): CC: ~ Signed [facility] Work Phone: [phone] 500-429508-06-2025 Consult note Author Rafael Hooper [facility] Note Date/Time May 05, 2025 3:0 2pm [facility] Medical Records Department [address] [place] [address] Pre-Anesthesia Evaluation 05/05/25 1502 MR#: [id number] Acct: [id number] Name: DIANE CONNORS Enma Rep #:[id number] : 1985 39 From: Rafael Hooper MD PCP: AGUILAR Giles Status:ADM I N Y Race: C Location: [place] [address] ASA Classification* ASA Classification ASA Classification: 2 [...] Type Anesthesia Type: General Anesthesia Focused Assessment* Temperature: 98.5 F Pulse Rate: 109 Blood Pressure: 113/85 Respiratory Rate: 18 Pulse Ox: 94 Airway Assessment Mouth opens: >3 cm Mallampati Score: II Labs Anesthesia Preop lab: CBC WBC 10.9 K/mm3 (4.4-11.0) 05/05/25 04:55 05/05/25 RBC 4.58 M/mm3 (4.6-6.2) L 05/05/25 04:55 05/05/25 Hgb 13.7 g/dL (13.0-16.5) 05/05/25 04:55 05/05/25 Hct 40.1 % (40-54) 05/05/25 04:55 05/05/25 Plt Count 162 K/mm3 (150-450) 05/05/25 04:55 05/05/25 CHEMISTRY Potassium 3.7 mmol/L (3.3-5.1) 05/05/25 04:55 05/05/25 Sodium 140 mmol/L (133-145) 05/05/25 04:55 05/05/25 Magnesium 2.1 mg/dL (1.6-2.6) 09/06/24 07:15 09/06/24 Phosphorus 3.2 mg/dL (2.5-4.9) 09/06/24 07:15 09/06/24 BUN 11 mg/dL (4-19) 05/05/25 04:55 05/05/25 Creatinine 1.16 mg/dL (0.70-1.20) 05/05/25 04:55 05/05/25 Glucose 111 mg/dL (70-99) H 05/05/25 04:55 05/05/25 TSH 0.918 uIU/mL (0.358-3.740) 09/11/24 08:48 08/30 12/21 COAG PT 12.3 SECONDS (11.7-14.9) 09/11/24 08:48 Pre-Assessment Diagnosis/Proposed Procedure Planned Operative Procedure(s): ERCP. 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 History - immigration attorney: Anesthesia History - immigration attorney Hx Hospitalization Yes: 08/2024 ERCP 04/27/25 15:02 Any Problems With Anesthesia No 04/27/25 15:02 Cholinesterase deficiency No 04/27/25 15:02 You/Your Family Experience No 04/27/25 15:02 fever (hyperthermia) with Relationship Recent Exposure to Contagious No 05/03/25 11:55 Disease Does patient have nerve No 04/27/25 [...] take am of surgery PONV PONV - immigration attorney: PONV - immigration attorney Female HX of Motion Sickness HX of N/V After Surgery Non-Smoker Duration of Surgery greater than 60 minutes Number of Risk Factors PONV Score Height & Weight Height & Weight: Anesthesia: Height & Weight Height 5 ft 10 in 05/05/25 02:26 Weight: 94.9 kg 05/05/25 02:26 Body Mass Index (BMI) 29.9 05/05/25 02:26 Respiratory Assessment Respiratory Assessment - immigration attorney: Respiratory Tract Infection Hx - immigration attorney Hx Respiratory Tract Infection No 04/27/25 15:02 STOP Sleep Apnea STOP Sleep Apnea - immigration attorney: STOP Sleep Apnea - immigration attorney Hx Hypertension No 05/05/25 02:26 Hx Sleep Apnea No 05/05/25 02:26 CPAP BIPAP Do you snore loudly (louder No 05/05/25 02:26 than talking or can be heard Do you often feel tired/ No 05/05/25 02:26 fatigued/ sleepy during daytime? Has anyone observed you stop No 05/05/25 02:26 breathing during sleep? STOP Results Negative 05/05/25 02:26 QUESTION #5 FULL TEXT : Do you snore loudly (louder than talking or can be heard through closed doors)? 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 Specify any problems Hx of Preganancy in last 3 N/A 05/05/25 02:26 Months Nurse Filling Out Transfusion AREAD 05/05/25 02:26 & Questions: Date: 05/05/25 05/05/25 02:26 Time: 02:42 05/05/25 02:26 Patient unable to answer at this time (ie. confused, unrespo /Reproduction History /Reproductive History - immigration attorney: /Reproductive Hx- immigration attorney Hx Now Gestational Age (in weeks): EDC: Hx Hx Para Hx Section SAB No 04/27/25 15:02 Active Medications Active Medications: Current Medications Generic Name Dose Route Start Last Admin Trade Name Freq PRN Reason Stop Dose Admin Acetaminophen 650 mg 05/05/25 02:26 05/05/25 12:12 Acetaminophen 325 Mg Tablet PO 650 mg Q4H PRN PRN Administration Fever, pain 1-07/09 Al Hydroxide/Mg Hydroxide 30 ml 05/05/25 02:26 Mag Hydrox/Al Hydrox/Simeth 30 Ml Udc PO Q6H PRN PRN Gastric Burning Albuterol Sulfate 2.5 mg 05/05/25 02:26 Albuterol 2.5 Mg/3 Ml Vial.Neb. INHALATION Q2H PRN PRN Dyspnea, wheezing Guaifenesin 20 ml 05/05/25 02:26 Guaifenesin 10 Ml Udc (200mg/10ml) PO Q4H PRN PRN COUGH Hydralazine HCl 10 mg 05/05/25 02:26 Hydralazine 20 Mg/Ml Vial IV Q4H PRN PRN SBP > 160 Protocol Sodium Chloride 1,000 mls @ 125 mls/hr 05/05/25 02:26 05/05/25 11:31 IV 05/05/25 18:25 125 mls/hr .Q8H RICARDO Administration Piperacillin Sod/Tazobactam 50 mls @ 12.5 mls/hr 05/05/25 06:00 05/05/25 13:43 Sod 3.375 gm/ Sodium Chloride IV 12.5 mls/hr Q8 RICARDO Administration Pantoprazole Sodium 40 mg/ 100 mls @ 330 mls/hr 05/05/25 02:26 05/05/25 10:20 Sodium Chloride IV Infused Q12 RICARDO Infusion Sodium Chloride 250 mls @ 15 mls/hr 05/05/25 02:26 IV .[id number] PRN Saline Flush Sodium Chloride 250 mls @ 15 mls/hr 05/05/25 02:26 IV .[id number] PRN Additional IVPB Infusion Ketorolac Tromethamine 15 mg 05/05/25 02:26 Ketorolac 15 Mg/Ml Vial IV 05/10/25 02:26 Q6H PRN PRN Pain Score 1-10 Melatonin 3 mg 05/05/25 02:26 Melatonin 3 Mg Tablet PO QHS PRN PRN INSOMNIA Morphine Sulfate 2 mg 05/05/25 02:26 Morphine 2 Mg/Ml Syringe IV Q3H PRN PRN Pain Score 6-10 Ondansetron HCl 4 mg 05/05/25 02:26 Ondansetron 4 Mg/2 Ml Vial IV Q8H PRN PRN NAUSEA/VOMITING Oxycodone HCl 5 mg 05/05/25 02:26 Oxycodone 5 Mg Tablet PO Q4H PRN PRN Pain Score 4-10 Senna/Docusate Sodium 2 tablet 05/05/25 02:26 Senna/Docusate Sodium 1 Tablet PO BID PRN PRN Constipation Sodium Chloride 10 - 40 ml 05/05/25 02:26 0.9% Saline Lock 10 Ml Syringe IV UD PRN SALINE FLUSH PFSH Medical History Bacteremia due to Gram-negative [...] laparoscopic cholecystectomy History of ERCP Social History household members: spouse Smoking Status: Never smoker alcohol intake: never substance use type: does not use Review of Systems (Anesthesia) ROS Narrative System reviewed and no additional complaints, except as documented. 05/05/25 1502 <Electronically signed by Rafael Hooper MD > Date _ Rafael Hooper MD Cosigner Signature: Date CC: ~ Signed [facility] Work Phone: 1(929) 169-234108-06-2025 Progress note [facility] Medical Records Department [address] [place] [id number] Progress Note 05/05/25 1614 MR#: [id number] Acct: [id number] Name: DIANE CONNORS Rep #:[id number] : 1985 39 From: Veronica Flores MD PCP: AGUILAR Giles Status:ADM I N Location: [place] [address] Subjective Subjective Patient seen and examined with his nurse by his bedside. His was by his bedside. He admitted to some abdominal pain. He denied any fever, chills, cough, chest pain, palpitations, dizziness, nausea, vomiting or any other symptoms. Objective Data Objective Data Vital Signs: Vital Signs Temp Pulse Resp BP Pulse Ox O2 Del Method 98.5 F 109 H 18 113/85 H 94 Room Air 05/05/25 15:02 05/05/25 15:02 05/05/25 15:02 05/05/25 15:02 05/05/25 15:02 05/05/25 12:00 Oxygen Delivery Method Room Air Weight: 209 lb 3.499 oz Body Mass Index (BMI) 29.9 Intake & Output: Intake and Output for Last 24 Hours 05/03/25 05/04/25 05/05/25 23:59 23:59 23:59 Intake Total 3343.33 / 3343.33 Balance 3343.33 / 3343.33 Lab / Micro Data 05/05/25 04:55 05/05/25 04:55 Labs: Laboratory Results - last 24 hr 05/04/25 23:30: WBC 9.6, RBC 5.17, Hgb 15.5, Hct 44.6, MCV 86.3, MCH 30.0, MCHC 34.8, RDW Std Deviation 39.7, RDW Coeff of Joanne 12.6, Plt Count 182, MPV 9.1, Immature Gran % (Auto) 0.900, Neut % (Auto) 91.5 H, Lymph % (Auto) 3.4 L, [place] %(Auto) 4.1, Eos % (Auto) 0.0, Baso [...] Globulin 2.6, Lipase 55, Procalcitonin 0.75 H 05/05/25 04:55: WBC 10.9, RBC 4.58 L, Hgb 13.7, Hct 40.1, MCV 87.6, MCH 29.9, MCHC 34.2, RDW Std Deviation 40.6, RDW Coeff of Joanne 12.7, Plt Count 162, MPV 9.1, Immature Gran % (Auto) 0.600, Neut % (Auto) 87.7 H, Lymph % (Auto) 4.3 L, [place] % (Auto) 7.2, Eos % (Auto) 0.0, Baso % (Auto) 0.2, Absolute Neuts (auto) 9.6 H, Absolute Lymphs (auto) 0.47 L, Nucleated RBC % 0, Sodium 140, Potassium 3.7, Chloride 107, Carbon Dioxide 22.3, Anion Gap 11, BUN 11, Creatinine 1.16, Estim Creat Clear Calc 96.91,Est GFR (MDRD) Non-Af 81, BUN/Creatinine Ratio 9.7L, Glucose 111 H, Calcium 8.1, Total Bilirubin 4.53 H, AST 319 H, ALT 620 H, Alkaline Phosphatase 131 H, Total Protein 5.7 L, Albumin 3.6, Globulin 2.0 L, Albumin/Globulin Ratio 1.8 Micro: Microbiology 05/05/25 00:55 Blood Culture (Wb) - Right Hand Blood Culture - Preliminary 05/04/25 23:30 Blood Culture (Wb) - Anticubital Left Blood Culture - Preliminary Radiography Diagnostic Testing: Radiology Impression Abdomen/Pelvis CT 05/04/25 23:50 IMPRESSION: Suspected cholecystitis possibly with gallbladder perforation. Dilated biliary tree, cholangitis, and choledocholithiasis. Follow up imaging as clinically determined. Reading Location: [place] [address] Physical Exam Const alert, oriented x3 and no apparent distress General Appearance: cooperative HEENT normocephalic, head/scalp atraumatic, moist oral mucous membranes and oropharynxnormal Eyes PERRL and EOMs intact bilaterally Neck no lymphadenopathy and supple Lymph Lymphatic: no lymphedema noted Resp normal respiratory effort, normal air movement and clear to auscultation bilaterally Cardio regular rate, regular rhythm, S1 normal heart sound, S2 normal heart sound and no murmurs GI GI Narrative: mild epigastric and RUQ tenderness, no guarding or rebound tenderness. Extremity General Extremity: no tenderness to palpation of joints or extremities Skin General Skin Exam: no breakdown Neuro CN's II-XII intact bilaterally and no focal motor deficits Motor Exam: strength 5/5 throughout Psych thought process normal, cooperative and affect normal Appearance: appropriate Assessment & Plan Assessment/Plan (1) Epigastric abdominal pain: (2) Elevated liver enzymes: (3) Choledocholithiasis with acute cholecystitis: (4) Status post endoscopic retrograde cholangiopancreatography: PLAN: Plan #Recurrent acute choledocholithiasis * patient has had recurrent choledocholithiasis and chronic cholecystitis. He had subtotal laparoscopic cholecystectomy on 03/17/2025 with a fenestrating type drain placed. he had outpatient ERCP on 05/03/2025 with sphincterotomy, sludge and stones being swept from the duct and stent removed. He received IV cefazolin 2gram IV intraop and was discharged home with oral augmentin for 7 days. * However he came back to the ED with a complaint of fever and shakes and CT abdomen and pelvis showed gallbladder perforation, dilated biliary tree and cholangitis as well as choledocholithiasis. * blood cultures are growing gram negative rods, speciation is pending * on IV zosyn * GI consulted as well as general surgery * hydrate gently with iVF * per GI, patient to have repeat ERCP for decompression of the dilated biliary tree. * #Elevated liver enzymes * due to recurrent choledocholithiasis. management as above. * liver enzymes have started trending downwards. * #DVT prophylaxis: SCDs Charges/Coding Visit Charges Inpatient E&M: 50790 Subs Hosp L2 05/05/25 1634 Veronica Flores MD Cosigner Signature (if applicable): CC: ~ Signed [facility]08-06-2025 Consult note [facility] Medical Records Department [address] [place] [address] Pre-Anesthesia Evaluation 05/05/25 1502 MR#: [id number] Acct: [id number] Name: DIANE CONNORS Rep #:[id number] : 1985 39 From: Rafael Hooper MD PCP: AGUILAR Giles Status:ADM I N Y Race: C Location: [place] [address] 5-1 ASA Classification* ASA Classification ASA Classification: 2 [...] Type Anesthesia Type: General Anesthesia Focused Assessment* Temperature: 98.5 F Pulse Rate: 109 Blood Pressure: 113/85 Respiratory Rate: 18 Pulse Ox: 94 Airway Assessment Mouth opens: >3 cm Mallampati Score: II Labs Anesthesia Preop lab: CBC WBC 10.9 K/mm3 (4.4-11.0) 05/05/25 04:55 05/05/25 RBC 4.58 M/mm3 (4.6-6.2) L 05/05/25 04:55 05/05/25 Hgb 13.7 g/dL (13.0-16.5) 05/05/25 04:55 05/05/25 Hct 40.1 % (40-54) 05/05/25 04:55 05/05/25 Plt Count 162 K/mm3 (150-450) 05/05/25 04:55 05/05/25 CHEMISTRY Potassium 3.7 mmol/L (3.3-5.1) 05/05/25 04:55 05/05/25 Sodium 140 mmol/L (133-145) 05/05/25 04:55 05/05/25 Magnesium 2.1 mg/dL (1.6-2.6) 09/06/24 07:15 09/06/24 Phosphorus 3.2 mg/dL (2.5-4.9) 09/06/24 07:15 09/06/24 BUN 11 mg/dL (4-19) 05/05/25 04:55 05/05/25 Creatinine 1.16 mg/dL (0.70-1.20) 05/05/25 04:55 05/05/25 Glucose 111 mg/dL (70-99) H 05/05/25 04:55 05/05/25 TSH 0.918 uIU/mL (0.358-3.740) 09/11/24 08:48 08/30 12/21 COAG PT 12.3 SECONDS (11.7-14.9) 09/11/24 08:48 Pre-Assessment Diagnosis/Proposed Procedure Planned Operative Procedure(s): ERCP. 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 History - immigration attorney: Anesthesia History - immigration attorney Hx Hospitalization Yes: 08/2024 ERCP 04/27/25 15:02 Any Problems With Anesthesia No 04/27/25 15:02 Cholinesterase deficiency No 04/27/25 15:02 You/Your Family Experience No 04/27/25 15:02 fever (hyperthermia) with Relationship Recent Exposure to Contagious No 05/03/25 11:55 Disease Does patient have nerve No 04/27/25 [...] take am of surgery PONV PONV - immigration attorney: PONV - immigration attorney Female HX of Motion Sickness HX of N/V After Surgery Non-Smoker Duration of Surgery greater than 60 minutes Number of Risk Factors PONV Score Height & Weight Height & Weight: Anesthesia: Height & Weight Height 5 ft 10 in 05/05/25 02:26 Weight: 94.9 kg 05/05/25 02:26 Body Mass Index (BMI) 29.9 05/05/25 02:26 Respiratory Assessment Respiratory Assessment - immigration attorney: Respiratory Tract Infection Hx - immigration attorney Hx Respiratory Tract Infection No 04/27/25 15:02 STOP Sleep Apnea STOP Sleep Apnea - immigration attorney: STOP Sleep Apnea - immigration attorney Hx Hypertension No 05/05/25 02:26 Hx Sleep Apnea No 05/05/25 02:26 CPAP BIPAP Do you snore loudly (louder No 05/05/25 02:26 than talking or can be heard Do you often feel tired/ No 05/05/25 02:26 fatigued/ sleepy during daytime? Has anyone observed you stop No 05/05/25 02:26 breathing during sleep? STOP Results Negative 05/05/25 02:26 QUESTION #5 FULL TEXT : Do you snore loudly (louder than talking or can be heard through closeddoors)? 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 Specify any problems Hx of Preganancy in last 3 N/A 05/05/25 02:26 Months Nurse Filling Out Transfusion AREAD 05/05/25 02:26 & Questions: Date: 05/05/25 05/05/25 02:26 Time: 02:42 05/05/25 02:26 Patient unable to answer at this time (ie. confused, unrespo /Reproduction History /Reproductive History - immigration attorney: /Reproductive Hx- immigration attorney Hx Now Gestational Age (in weeks): EDC: Hx Hx Para Hx Section SAB No 04/27/25 15:02 Active Medications Active Medications: Current Medications Generic Name Dose Route Start Last Admin Trade Name Freq PRN Reason Stop Dose Admin Acetaminophen 650 mg 05/05/25 02:26 05/05/25 12:12 Acetaminophen 325 Mg Tablet PO 650 mg Q4H PRN PRN Administration Fever, pain 1-10 Al Hydroxide/Mg Hydroxide 30 ml 05/05/25 02:26 Mag Hydrox/Al Hydrox/Simeth 30 Ml Udc PO Q6H PRN PRN Gastric Burning Albuterol Sulfate 2.5 mg 05/05/25 02:26 Albuterol 2.5 Mg/3 Ml Vial.Neb. INHALATION Q2H PRN PRN Dyspnea, wheezing Guaifenesin 20 ml 05/05/25 02:26 Guaifenesin 10 Ml Udc (200mg/10ml) PO Q4H PRN PRN COUGH Hydralazine HCl 10 mg 05/05/25 02:26 Hydralazine 20 Mg/Ml Vial IV Q4H PRN PRN SBP > 160 Protocol Sodium Chloride 1,000 mls @ 125 mls/hr 05/05/25 02:26 05/05/25 11:31 IV 05/05/25 18:25 125 mls/hr .Q8H RICARDO Administration Piperacillin Sod/Tazobactam 50 mls @ 12.5 mls/hr 05/05/25 06:00 05/05/25 13:43 Sod 3.375 gm/ Sodium Chloride IV 12.5 mls/hr Q8 RICARDO Administration Pantoprazole Sodium 40 mg/ 100 mls @ 330 mls/hr 05/05/25 02:26 05/05/25 10:20 Sodium Chloride IV Infused Q12 RICARDO Infusion Sodium Chloride 250 mls @ 15 mls/hr 05/05/25 02:26 IV .[id number] PRN Saline Flush Sodium Chloride 250 mls @ 15 mls/hr 05/05/25 02:26 IV .[id number] PRN Additional IVPB Infusion Ketorolac Tromethamine 15 mg 05/05/25 02:26 Ketorolac 15 Mg/Ml Vial IV 05/10/25 02:26 Q6H PRN PRN Pain Score 1-10 Melatonin 3 mg 05/05/25 02:26 Melatonin 3 Mg Tablet PO QHS PRN PRN INSOMNIA Morphine Sulfate 2 mg 05/05/25 02:26 Morphine 2 Mg/Ml Syringe IV Q3H PRN PRN Pain Score 6-10 Ondansetron HCl 4 mg 05/05/25 02:26 Ondansetron 4 Mg/2 Ml Vial IV Q8H PRN PRN NAUSEA/VOMITING Oxycodone HCl 5 mg 05/05/25 02:26 Oxycodone 5 Mg Tablet PO Q4H PRN PRN Pain Score 4-10 Senna/Docusate Sodium 2 tablet 05/05/25 02:26 Senna/Docusate Sodium 1 Tablet PO BID PRN PRN Constipation Sodium Chloride 10 - 40 ml 05/05/25 02:26 0.9% Saline Lock 10 Ml Syringe IV UD PRN SALINE FLUSH PFSH Medical History Bacteremia due to Gram-negative [...] laparoscopic cholecystectomy History of ERCP Social History household members: spouse Smoking Status: Never smoker alcohol intake: never substance use type: does not use Review of Systems (Anesthesia) ROS Narrative System reviewed and no additional complaints, except as documented. 05/05/25 1502 > Date _ Rafael Hooper MD Cosigner Signature: Date CC: ~ Signed [facility]08-06-2025 Consult note [facility] Note Date/Time May 05, 2025 10: 56am [facility] Medical Records Department [address] [place] [address] Consultation - Surgical 05/05/25 0857 MR#: [id number] Acct: [id number] Name: DIANE CONNORS Rep #:[id number] : 1985 39 From: Bing YOUNG PA-C PCP: AGUILAR Giles Status:ADM I N Location: [place] [address] Assessment & Plan Assessment/Plan (1) Elevated liver enzymes: (2) Choledocholithiasis with acute cholecystitis: (3) Pyrexia: QUALIFIERS: Fever type: post-procedural Qualified Code(s): R50.82- Postprocedural fever (4) Epigastric abdominal pain: PLAN: Plan I have been consulted in conjunction with Dr. Lopez. He will independently evaluate this patient. Patient is a 39 y/o M who presented with a 1 day history of fever and chills post-operatively from an ERCP with stone extraction and stent removal. Patient is s/p partial cholecystectomy by Dr. Shoemaker. Patient had a drain in place post-operatively to r/o any bile leak. JASON drain was pulled on 03/31 after having completed a HIDA scan which demonstrated no evidence of a bile leak. Patient denies any abdominal pain accept when palpated during examination.I have discussed with the patient and his that he will likely need a repeatERCP with stent placement. Patient's voices this will be his 5 ERCP. I havediscussed that Dr. Babin may suggest a tertiary referral as an outpatient to hepatobiliary or hepatology to further investigate patient's recurrent cholangitis, gallstone formation and possible removal of gallbladder remnant if this is thought to be the etiology. We are not recommending any surgical intervention at this time. In order for the remaining remnant of the gallbladderto become less inflamed, an ERCP with stent placement to assist with bile flow is the recommended approach at this time in conjunction with IV antibiotics. We will continue to follow this patient as needed. Patient and his have had the opportunity to ask and have questions answered. Patient verbally understandsand agrees with the proposed plan. Thank you for allowing us to participate in this patient's care. HPI Consult Data Date of Consult: 05/05/25 HPI Narrative Reason for Consultation: Choledocholithiasis with acute cholecystitis HPI Narrative: DIANE CONNORS, is a 39 M who presents with fevers and chills following an ERCP with stent removal on Saturday with Dr. Babin. Patient has a history of multiple ERCP procedures with stent placements and removals. Patient is also approximately 7 weeks post-op from a laparoscopic subtotal cholecystectomy and simple umbilical hernia repair by Dr. Shoemaker. Patient had an ERCP with stone extraction and stent removal on Saturday by Dr. Babin. Patient was sent home on Augmentin x 7 days following the procedure. Patient notes that night he had a fever that night and developed chills. He tried Tylenol for his fever. He presented to the ED with these symptoms. He also had a lack of appetite. He denies any abdominal pain. CT scan obtained in the ED demonstrated suspected cholecystitis with gallbladderperforation, dilated biliary tree, cholangitis and choledocholithiasis. Labs: WBC 10.9. Liver enzymes: T Bili 4.25-->4.53, AST 493-->319, ALT 883-->620,Alk Phos 158-->131 [facility] Medical History Bacteremia due to Gram-negative bacteria [...] laparoscopic cholecystectomy History of ERCP Social History household members: spouse Smoking Status: Never smoker alcohol intake: never substance use type: does not use ROS Constitutional Constitutional: Reports fever(s), malaise and weight gain Eyes Eyes: Reports systems reviewed and no addt'l complaints, except as documented ENT HEENT: Reports systems reviewed and no addt'l complaints, except as documented Cardiovascular Cardiovascular: Reports systems reviewed and no addt'l complaints, except as documented Respiratory/Chest Respiratory/Chest: Reports systems reviewed and no addt'l complaints, except as documented Gastrointestinal Gastrointestinal: Reports systems reviewed and no addt'l complaints, except as documented Genitourinary Genitourinary: Reports systems reviewed and no addt'l complaints, except as documented Musculoskeletal Musculoskeletal: Reports systems reviewed and no addt'l complaints, except as documented Integumentary Integumentary: Reports systems reviewed and no addt'l complaints, except as documented Neurologic Neurologic: Reports systems reviewed and no addt'l complaints, except as documented Psychiatric Psychiatric: Reports systems reviewed and no addt'l complaints, except as documented Endocrine Endocrinology: Reports systems reviewed and no addt'l complaints, except as documented Hematologic/Lymphatic Hematologic/Lymphatic: Reports systems reviewed and no addt'l complaints, exceptas documented Allergic/Immunologic Allergic/Immunologic: Reports systems reviewed and no addt'l complaints, except as documented Physical Exam Const alert, oriented x3 and no apparent distress HEENT normocephalic and head/scalp atraumatic Eyes PERRL Neck full ROM Resp normal respiratory effort Cardio Rate: tachycardic GI GI Narrative: Abdomen- soft, epigastric tenderness with palpation no CVA tenderness Back/Spine no CVA tenderness Extremity normal to inspection Skin no rashes or lesions noted Neuro no focal motor deficits and no sensory deficits noted Psych mental status grossly normal Lab / Micro Data 05/05/25 04:55 05/05/25 04:55 Labs: Laboratory Results - last 24 hr 05/04/25 23:30: WBC 9.6, RBC 5.17, Hgb 15.5, Hct 44.6, MCV 86.3, MCH 30.0, MCHC 34.8, RDW Std Deviation 39.7, RDW Coeff of Joanne 12.6, Plt Count 182, MPV 9.1, Immature Gran % (Auto) 0.900, Neut % (Auto) 91.5 H, Lymph % (Auto) 3.4 L, [place] %(Auto) 4.1, Eos % (Auto) 0.0, Baso [...] Globulin 2.6, Lipase 55, Procalcitonin 0.75 H 05/05/25 04:55: WBC 10.9, RBC 4.58 L, Hgb 13.7, Hct 40.1, MCV 87.6, MCH 29.9, MCHC 34.2, RDW Std Deviation 40.6, RDW Coeff of Joanne 12.7, Plt Count 162, MPV 9.1, Immature Gran % (Auto) 0.600, Neut % (Auto) 87.7 H, Lymph % (Auto) 4.3 L, [place] % (Auto) 7.2, Eos % (Auto) 0.0, Baso % (Auto) 0.2, Absolute Neuts (auto) 9.6 H, Absolute Lymphs (auto) 0.47 L, Nucleated RBC % 0, Sodium 140, Potassium 3.7, Chloride 107, Carbon Dioxide 22.3, Anion Gap 11, BUN 11, Creatinine 1.16, Estim Creat Clear Calc 96.91, Est GFR (MDRD) Non-Af 81, BUN/Creatinine Ratio 9.7L, Glucose 111 H, Calcium 8.1, Total Bilirubin 4.53 H, AST 319 H, ALT 620 H, Alkaline Phosphatase 131 H, Total Protein 5.7 L, Albumin 3.6, Globulin 2.0 L, Albumin/Globulin Ratio 1.8 Imaging Radiology Impression Abdomen/Pelvis CT 05/04/25 23:50 IMPRESSION: Suspected cholecystitis possibly with gallbladder perforation. Dilated biliary tree, cholangitis, and choledocholithiasis. Follow up imaging as clinically determined. Reading Location: [place] [address] Charges/Coding Visit Charges Inpatient E&M: 31863 Init Hosp L2 05/05/25 1056 <Electronically signed by Bing YOUNG PA-C> Cosigner Signature (if applicable): CC: AGUILAR Arias~ Signed [facility] Work Phone: 1(620) 439-386508-06-2025 Consult note [facility] Medical Records Department [address] [place] [address] Consultation - Surgical 05/05/25 0857 MR#: [id number] Acct: [id number] Name: KENNEY CONNORSDAMIÁN [place] Rep #:[id number] : 1985 39 From: Bing YOUNG PA-C PCP: AGUILAR Giles Status:ADM I N Location: [place] [address] Assessment & Plan Assessment/Plan (1) Elevated liver enzymes: (2) Choledocholithiasis with acute cholecystitis: (3) Pyrexia: QUALIFIERS: Fever type: post-procedural Qualified Code(s): R50.82- Postprocedural fever (4) Epigastric abdominal pain: PLAN: Plan I have been consulted in conjunction with Dr. Lopez. He will independently evaluate this patient. Patient is a 39 y/o M who presented with a 1 day history of fever and chills post-operatively from an ERCP with stone extraction and stent removal. Patient is s/p partial cholecystectomy by Dr. Shoemaker. Patient had a drain in place post-operatively to r/o any bile leak. JASON drain was pulled on 03/31 after having completed a HIDA scan which demonstrated no evidence of a bile leak. Patient denies anyabdominal pain accept when palpated during examination.I have discussed with the patient and his that he will likely need a repeatERCP with stent placement. Patient's voices this will be his 5 ERCP. I havediscussed that Dr. Babin may suggest a tertiary referral as an outpatient to hepatobiliary or hepatology to further investigate patient's recurrent cholangitis, gallstone formation and possible removal of gallbladder remnant if this is thought to be the etiology. We are not recommending any surgical intervention at this time. In order for the remaining remnant of the gallbladdertobecome less inflamed, an ERCP with stent placement to assist with bile flow is the recommended approach at this time in conjunction with IV antibiotics. We will continue to follow this patient as needed. Patient and his have had the opportunity to ask and have questions answered. Patient verbal ly understandsand agrees with the proposed plan. Thank you for allowing us to participate in this patient's care. HPI Consult Data Date of Consult: 05/05/25 HPI Narrative Reason for Consultation: Choledocholithiasis with acute cholecystitis HPI Narrative: DIANE CONNORS, is a 39 M who presents with fevers and chills following an ERCP with stent removal on Saturday with Dr. Babin. Patient has a history of multiple ERCP procedures with stent placements and removals. Patient is also approximately 7 weeks post-op from a laparoscopic subtotal cholecystectomy and simple umbilical hernia repair by Dr. Shoemaker. Patient had an ERCP with stone extraction and stent removal on Saturday by Dr. Babin. Patient was sent home on Augmentin x 7 days following the procedure. Patient notes that night he had a fever that night and developed chills. He tried Tylenol for his fever. He presented to the ED with these symptoms. He also had a lack of appetite. He denies anyabdominal pain. CT scan obtained in the ED demonstrated suspected cholecystitis with gallbladderperforation, dilated biliary tree, cholangitis and choledocholithiasis. Labs: WBC 10.9. Liver enzymes: T Bili 4.25-->4.53, AST 493-->319, ALT 883-->620,Alk Phos 158-->131 PFSH Medical History Bacteremia due to Gram-negative [...] laparoscopic cholecystectomy History of ERCP Social History household members: spouse Smoking Status: Never smoker alcohol intake: never substance use type: does not use ROS Constitutional Constitutional: Reports fever(s), malaise and weight gain Eyes Eyes: Reports systems reviewed and no addt'l complaints, except as documented ENT HEENT: Reports systems reviewed and no addt'l complaints, except as documented Cardiovascular Cardiovascular: Reports systems reviewed and no addt'l complaints, except as documented Respiratory/Chest Respiratory/Chest: Reports systems reviewed and no addt'l complaints, except as documented Gastrointestinal Gastrointestinal: Reports systems reviewed and no addt'l complaints, except as documented Genitourinary Genitourinary: Reports systems reviewed and no addt'l complaints, except as documented Musculoskeletal Musculoskeletal: Reports systems reviewed and no addt'l complaints, except as documented Integumentary Integumentary: Reports systems reviewed and no addt'l complaints, except as documented Neurologic Neurologic: Reports systems reviewed and no addt'l complaints, except as documented Psychiatric Psychiatric: Reports systems reviewed and no addt'l complaints, except as documented Endocrine Endocrinology: Reports systems reviewed and no addt'l complaints, except as documented Hematologic/Lymphatic Hematologic/Lymphatic: Reports systems reviewed and no addt'l complaints, exceptas documented Allergic/Immunologic Allergic/Immunologic: Reports systems reviewed and no addt'l complaints, except as documented Physical Exam Const alert, oriented x3 and no apparent distress HEENT normocephalic and head/scalp atraumatic Eyes PERRL Neck full ROM Resp normal respiratory effort Cardio Rate: tachycardic GI GI Narrative: Abdomen- soft, epigastric tenderness with palpation no CVA tenderness Back/Spine no CVA tenderness Extremity normal to inspection Skin no rashes or lesions noted Neuro no focal motor deficits and no sensory deficits noted Psych mental status grossly normal Lab / Micro Data 05/05/25 04:55 05/05/25 04:55 Labs: Laboratory Results - last 24 hr 05/04/25 23:30: WBC 9.6, RBC 5.17, Hgb 15.5, Hct 44.6, MCV 86.3, MCH 30.0, MCHC 34.8, RDW Std Deviation 39.7, RDW Coeff of Joanne 12.6, Plt Count 182, MPV 9.1, Immature Gran % (Auto) 0.900, Neut % (Auto) 91.5 H, Lymph % (Auto) 3.4 L, [place] %(Auto) 4.1, Eos % (Auto) 0.0, Baso [...] Globulin 2.6, Lipase 55, Procalcitonin 0.75 H 05/05/25 04:55: WBC 10.9, RBC 4.58 L, Hgb 13.7, Hct 40.1, MCV 87.6, MCH 29.9, MCHC 34.2, RDW Std Deviation 40.6, RDW Coeff of Joanne 12.7, Plt Count 162, MPV 9.1, Immature Gran % (Auto) 0.600, Neut % (Auto) 87.7 H, Lymph % (Auto) 4.3 L, [place] % (Auto) 7.2, Eos % (Auto) 0.0, Baso % (Auto) 0.2, Absolute Neuts (auto) 9.6 H, Absolute Lymphs (auto) 0.47 L, Nucleated RBC % 0, Sodium 140, Potassium 3.7, Chloride 107, Carbon Dioxide 22.3, Anion Gap 11, BUN 11, Creatinine 1.16, Estim Creat Clear Calc 96.91,Est GFR (MDRD) Non-Af 81, BUN/Creatinine Ratio 9.7L, Glucose 111 H, Calcium 8.1, Total Bilirubin 4.53 H, AST 319 H, ALT 620 H, Alkaline Phosphatase 131 H, Total Protein 5.7 L, Albumin 3.6, Globulin 2.0 L, Albumin/Globulin Ratio 1.8 Imaging Radiology Impression Abdomen/Pelvis CT 05/04/25 23:50 IMPRESSION: Suspected cholecystitis possibly with gallbladder perforation. Dilated biliary tree, cholangitis, and choledocholithiasis. Follow up imaging as clinically determined. Reading Location: [place] [address] Charges/Coding Visit Charges Inpatient E&M: 67121 Init Hosp L2 05/05/25 1056 Cosigner Signature (if applicable): CC: AGUILAR Arias~ Signed [facility]08-06-2025 Discharge summary Author [facility] Note Date/Time May 05, 2025 4:2 9am [facility] Medical Records Department [address] [place] [address] Emergency Department Summary 05/05/25 MR#: [id number] Acct: [id number] Name: DOROTHY CONNORSNereida Norwood Rep #:[id number] : 1985 39 From: Benedict Phillip DO PCP: AGUILAR Giles Status:ADM I N Location: [place] [address] HPI History of Present Illness Chief Complaint: Fever Informant: patient and spouse/S.O. Narrative Narrative: Patient is a 39-year-old male who in November was admitted to the hospital secondary to choledocholithiasis and needed a biliary stent placed. Patient andwife state that after stent removal he became sick and needed admitted to the hospital for systemic infection. Patient states in February roughly 6 weeks ago he had his gallbladder removed but then still needed a repeat stent placed. Patient and report that his stent was removed roughly 1 day ago and this evening he spiked fevers up to 103 at home. reports that she noticed that his eyes were changing color again and she is concerned that he may be developing a repeat infection secondary to his fever and with this presents for evaluation. Other than fever the patient states there has been no symptoms suchas headache congestion cough nausea vomiting diarrhea or dysuria and he reports that he has no belly pain at rest [facility] Medical History Bacteremia due to Gram-negative bacteria Drug-induced liver injury Jaundice History of biliary stent insertion Elevation of levels of liver transaminase levels Hyperbilirubinemia Overweight (BMI 25.0-29.9) No pertinent past medical history Home Medications ?Medication ?Instructions ?Recorded ?Last Taken ?Type NK 05/05/25 Unknown History Allergy/AdvReac Type Severity Reaction Status Date / Time No Known Allergies Allergy Verified 05/04/25 23:20 Family History (Updated 05/05/25 @ 02:[address] Eileen Brunson MD) Mother No problems noted. Father No problems noted. Surgical History Hx laparoscopic cholecystectomy History of ERCP Social History household members: spouse Smoking Status: Never smoker alcohol intake: never substance use type: does not use ROS ROS ED Constitutional Constitutional ED: Reports chills and fever(s) Eyes Eyes: Denies change in vision ENT ENT ED: Denies ear pain, rhinorrhea or sore throat Cardiovascular Cardiovascular: Denies chest pain Respiratory/Chest Respiratory/Chest: Denies cough or dyspnea Gastrointestinal Gastrointestinal: Denies abdominal pain, diarrhea, nausea or vomiting Genitourinary Genitourinary ED: Denies dysuria Musculoskeletal Musculoskeletal: Denies myalgias Integumentary Denies rash Neurologic Neurologic: Denies headache(s) EXAM Physical Exam Const Vital Signs: 05/04/25 23:21 05/04/25 23:24 05/05/25 [...] Oxygen Delivery Method Room Air Room Air Positive well nourished and well developed General Appearance ED: well developed; Negative for pallor HEENT HEENT Narrative: Normocephalic atraumatic No tongue or lip swelling no oral lesions no airway edema or compromise No secondary findings in the posterior pharynx to suggest infection Eyes PERRL and EOMs intact bilaterally General Eye ED: Yes scleral icterus Neck supple Neck Narrative: No nuchal rigidity or meningeal signs Chest Wall palpation of chest normal Resp normal respiratory effort and clear to auscultation bilaterally Resp Narrative: No nasal flaring retractions tachypnea or accessory muscle use Cardio regular rhythm Rate: tachycardic and other Other Details: Tachycardic rate with regular rhythm No murmurs rubs or gallop Radial and carotid pulses are equal and symmetric GI normal to inspection, nondistended, normoactive bowel sounds, non-tender, non-distended and no masses GI Narrative: Soft nontender and nondistended with normal active bowel sounds No voluntary guarding or rigidity or pulsatile mass No peritoneal signs Auscultation: normoactive bowel sounds Palpation: soft Extremity normal to inspection Extremity Narrative: No asymmetric edema no pitting edema negative Homans' sign bilaterally Neuro oriented x3, CN's II-XII intact bilaterally and no sensory deficits noted Sensorium / Orientation: alert Motor Exam: strength 5/5 throughout Psych mental status grossly normal Skin no rashes or lesions noted General Skin Exam: jaundice; Negative for pallor MDM MDM MDM Narrative Medical decision making narrative: Patient arrived to the ER febrile and mildly tachycardic most consistent with his reported fever up to 103 at home. He did take Tylenol prior to arrival. The patient has no sick symptoms such as nausea vomiting diarrhea dysuria cough congestion or sore throat. However with his previous history there is high likelihood for repeat biliary stricture and secondary infection. Therefore basic labs with blood cultures and a CT of the abdomen pelvis were obtained. Patient's white count is normal there is no lactic acidosis and his neutrophil count is only elevated by approximately 1. Procalcitonin is 0.75 indicating potential for infection. The liver enzymes are grossly elevated which would correlate with his jaundice and scleral icterus and most likely indicate that hehas a repeat stricturing of his common bile duct. The radiologist stated that the gallbladder was irregular in shape with potential perforation. Chart reviewreveals that roughly 6 weeks ago his cholecystectomy was only a partial removal. The case was discussed with general surgeon Dr. Lopez who states that the irregular appearance of the gallbladder would correlate with the fact that it was just a partial cholecystectomy and does not fee it could be perforated basedon this surgical procedure. He states that without leukocytosis or lactic acidosis or pain he does not feel there is emergent need for surgical intervention. Case was also discussed with his passenger solicitor Dr. Babin. He feels that there is repeat stricture formation causing his elevated liver enzymes and believes he will most likely need a permanent metal stent. He recommends admission to the hospital so he can perform this procedure. He also agrees with continued IV Zosyn with concern for developing secondary infection. The case was then discussed with the hospitalist who agrees to accept the patient to her service for continued monitoring and care at this time. With IV hydration and administration of Toradol the patient became afebrile and blood pressure remained stable. Therefore with improvement of his vitals and no leukocytosis or lactic acidosis patient is not showing findings for sepsis at this time and does not need placed in the ICU History & Record Review Discussion w/independent historian: Patient and Significant other Lab Data Attestation: I reviewed the patient's lab results. Labs: Laboratory Results - last 24 hr 05/04/25 23:30 WBC 9.6 RBC 5.17 Hgb 15.5 Hct 44.6 MCV 86.3 MCH 30.0 MCHC 34.8 RDW Std Deviation 39.7 RDW Coeff of Joanne 12.6 Plt Count 182 MPV 9.1 Immature Gran % (Auto) 0.900 Neut % (Auto) 91.5 H Lymph % (Auto) 3.4 L [place] % (Auto) 4.1 Eos % (Auto) 0.0 Baso % (Auto) 0.1 Absolute Neuts (auto) 8.8 H Absolute Lymphs (auto) 0.33 L Nucleated RBC % 0 Sodium 138 Potassium 3.4 Chloride 103 Carbon Dioxide 20.9 L Anion Gap 14 BUN 12 Creatinine 1.07 Estim Creat Clear Calc 104.76 Est GFR (MDRD) Non-Af 89 BUN/Creatinine Ratio 10.8 Glucose 134 H Lactic Acid 1.1 Calcium 9.1 Total Bilirubin 4.25 H Direct Bilirubin 3.03 H AST 493 H ALT 883 H Alkaline Phosphatase 158 H Total Protein 6.8 Albumin 4.2 Globulin 2.6 Lipase 55 Procalcitonin 0.75 H Radiography Diagnostic Testing: Clinical Impression(s) from Imaging Studies Abdomen/Pelvis CT 05/04/25 23:50 IMPRESSION: Suspected cholecystitis possibly with gallbladder perforation. Dilated biliary tree, cholangitis, and choledocholithiasis. Follow up imaging as clinically determined. Reading Location: [place] [address] Management Discussion w/another healthcare provider: Hospitalist and Qa Automation Engineer Discharge Plan Dx/Rx/DC Orders Clinical Impression: Choledocholithiasis with acute cholecystitis, Elevated liver enzymes, Pyrexia Disposition Disposition: Acute Care Hospital [facility] Discharge Date/Time: 05/05/25 02:20 What to do if you have Problems For any increased pain, shortness of breath, bleeding, nausea or vomiting, chestpain, or any unexpected problems, contact your Primary Care Provider. Call [facility] ([phone]) or report to the closest Emergency Room. Call 911 if necessary. 05/05/25 0429 <Electronically signed by Benedict Phillip DO> Cosigner Signature (if applicable): CC: AGUILAR Arias ~ Signed [facility] Work Phone: 1(367) 888-969108-06-2025 Discharge summary [facility] Medical Records Department [address] [place] [address] Emergency Department Summary 05/05/25 MR#: [id number] Acct: [id number] Name: DIANE CONNORS Rep #:[id number] : 1985 39 From: Benedict Phillip DO PCP: AGUILAR Giles Status:ADM I N Location: [place] [address] HPI History of Present Illness Chief Complaint: Fever Informant: patient and spouse/S.O. Narrative Narrative: Patient is a 39-year-old male who in November was admitted to the hospital secondary to choledocholithiasis and needed a biliary stent placed. Patient andwife state that after stent removal he became sick and needed admitted to the hospital for systemic infection. Patient states in February roughly 6 weeks ago he had his gallbladder removed but then still needed a repeat stent placed. Patient and report that his stent was removed roughly 1 day ago and this evening he spiked fevers up to 103 at home. reports that she noticed that his eyes were changing color again and she is concerned that he may be developing a repeat infection secondary to his fever and with this presents for evaluation. Other than fever the patient states there has been no symptoms suchas headache congestion cough nausea vomiting diarrhea or dysuria and he reports that he has no belly pain at rest PFSH [facility] Medical History Bacteremia due to Gram-negative bacteria Drug-induced liver injury Jaundice History of biliary stent insertion Elevation of levels of liver transaminase levels Hyperbilirubinemia Overweight (BMI 25.0-29.9) No pertinent past medical history Home Medications ?Medication ?Instructions ?Recorded ?Last Taken ?Type NK 05/05/25 Unknown History Allergy/AdvReac Type Severity Reaction Status Date / Time No Known Allergies Allergy Verified 05/04/25 23:20 Family History (Updated 05/05/25 @ 02:[address] Eileen Brunson MD) Mother No problems noted. Father No problems noted. Surgical History Hx laparoscopic cholecystectomy History of ERCP Social History household members: spouse Smoking Status: Never smoker alcohol intake: never substance use type: does not use ROS ROS ED Constitutional Constitutional ED: Reports chills and fever(s) Eyes Eyes: Denies change in vision ENT ENT ED: Denies ear pain, rhinorrhea or sore throat Cardiovascular Cardiovascular: Denies chest pain Respiratory/Chest Respiratory/Chest: Denies cough or dyspnea Gastrointestinal Gastrointestinal: Denies abdominal pain, diarrhea, nausea or vomiting Genitourinary Genitourinary ED: Denies dysuria Musculoskeletal Musculoskeletal: Denies myalgias Integumentary Denies rash Neurologic Neurologic: Denies headache(s) EXAM Physical Exam Const Vital Signs: 05/04/25 23:21 05/04/25 23:24 05/05/25 [...] Oxygen Delivery Method Room Air Room Air Positive well nourished and well developed General Appearance ED: well developed; Negative for pallor HEENT HEENT Narrative: Normocephalic atraumatic No tongue or lip swelling no oral lesions no airway edema or compromise No secondary findings in the posterior pharynx to suggest infection Eyes PERRL and EOMs intact bilaterally General Eye ED: Yes scleral icterus Neck supple Neck Narrative: No nuchal rigidity or meningeal signs Chest Wall palpation of chest normal Resp normal respiratory effort and clear to auscultation bilaterally Resp Narrative: No nasal flaring retractions tachypnea or accessory muscle use Cardio regular rhythm Rate: tachycardic and other Other Details: Tachycardic rate with regular rhythm No murmurs rubs or gallop Radial and carotid pulses are equal and symmetric GI normal to inspection, nondistended, normoactive bowel sounds, non-tender, non- distended and no masses GI Narrative: Soft nontender and nondistended with normal active bowel sounds No voluntary guarding or rigidity or pulsatile mass No peritoneal signs Auscultation: normoactive bowel sounds Palpation: soft Extremity normal to inspection Extremity Narrative: No asymmetric edema no pitting edema negative Homans' sign bilaterally Neuro oriented x3, CN's II-XII intact bilaterally and no sensory deficits noted Sensorium / Orientation: alert Motor Exam: strength 5/5 throughout Psych mental status grossly normal Skin no rashes or lesions noted General Skin Exam: jaundice; Negative for pallor MDM MDM MDM Narrative Medical decision making narrative: Patient arrived to the ER febrile and mildly tachycardic most consistent with his reported fever upto 103 at home. He did take Tylenol prior to arrival. The patient has no sick symptoms such as nausea vomiting diarrhea dysuria cough congestion or sore throat. However with his previous history there is high likelihood for repeat biliary stricture and secondary infection. Therefore basic labs withblood cultures and a CT of the abdomen pelvis were obtained. Patient's white count is normal there is no lactic acidosis and his neutrophil count is only elevated by approximately 1. Procalcitonin is0.75 indicating potential for infection. The liver enzymes are grossly elevated which would correlate with his jaundice and scleral icterus and most likely indicate that hehas a repeat stricturing ofhis common bile duct. The radiologist stated that the gallbladder was irregular in shape with potential perforation. Chart reviewreveals that roughly 6 weeks ago his cholecystectomy was only a partial removal. The case was discussed with general surgeon Dr. Lopez who states that the irregular a ppearance of the gallbladder would correlate with the fact that it was just a partial cholecystectomy and does not fee it could be perforated basedon this surgical procedure. He states that without leukocytosis or lactic acidosis or pain he does not feel there is emergent need for surgical intervention. Case was also discussed with his passenger solicitor Dr. Babin. He feels that there is repeat stricture formation causing his elevated liver enzymes and believes he will most likely need a permanent metal stent. He recommends admission to the hospital so he can perform this procedure. He also agrees with continued IV Zosyn with concern for developing secondary infection. The case was then dis cussed with the hospitalist who agrees to accept the patient to her service for continued monitoring and care at this time. With IV hydration and administration of Toradol the patient became afebrileand blood pressure remained stable. Therefore with improvement of his vitals and no leukocytosis orlactic acidosis patient is not showing findings for sepsis at this time and does not need placed inthe ICU History & Record Review Discussion w/independent historian: Patient and Significant other Lab Data Attestation: I reviewed the patient's lab results. Labs: Laboratory Results - last 24 hr 05/04/25 23:30 WBC 9.6 RBC 5.17 Hgb 15.5 Hct 44.6 MCV 86.3 MCH 30.0 MCHC 34.8 RDW Std Deviation 39.7 RDW Coeff of Joanne 12.6 Plt Count 182 MPV 9.1 Immature Gran % (Auto) 0.900 Neut % (Auto) 91.5 H Lymph % (Auto) 3.4 L [place] % (Auto) 4.1 Eos % (Auto) 0.0 Baso % (Auto) 0.1 Absolute Neuts (auto) 8.8 H Absolute Lymphs (auto) 0.33 L Nucleated RBC % 0 Sodium 138 Potassium 3.4 Chloride 103 Carbon Dioxide 20.9 L Anion Gap 14 BUN 12 Creatinine 1.07 Estim Creat Clear Calc 104.76 Est GFR (MDRD) Non-Af 89 BUN/Creatinine Ratio 10.8 Glucose 134 H Lactic Acid 1.1 Calcium 9.1 Total Bilirubin 4.25 H Direct Bilirubin 3.03 H AST 493 H ALT 883 H Alkaline Phosphatase 158 H Total Protein 6.8 Albumin 4.2 Globulin 2.6 Lipase 55 Procalcitonin 0.75 H Radiography Diagnostic Testing: Clinical Impression(s) from Imaging Studies Abdomen/Pelvis CT 05/04/25 23:50 IMPRESSION: Suspected cholecystitis possibly with gallbladder perforation. Dilated biliary tree, cholangitis, and choledocholithiasis. Follow up imaging as clinically determined. Reading Location: [place] [address] Management Discussion w/another healthcare provider: Hospitalist and Qa Automation Engineer Discharge Plan Dx/Rx/DC Orders Clinical Impression: Choledocholithiasis with acute cholecystitis, Elevated liver enzymes, Pyrexia Disposition Disposition: Acute Care Hospital [facility] Discharge Date/Time: 05/05/25 02:20 What to do if you have Problems For any increased pain, shortness of breath, bleeding, nausea or vomiting, chestpain, or any unexpected problems, contact your Primary Care Provider. Call [facility] ([phone]) or report tothe closest Emergency Room. Call 911 if necessary. 05/05/25 6814 Cosigner Signature (if applicable): CC: AGUILAR Airas ~ Signed [facility]08-06-2025 History and physical note Author Eileen Brunson [facility] Note Date/Time May 05, 2025 2:0 9am [facility] Medical Records Department [address] [place] [address] H&P Exam - Hospitalist 05/05/25 0150 MR#: [id number] Acct: [id number] Name: DIANE CONNORS Rep #:[id number] : 1985 39 From: Eileen Brunson MD [...] drain placement who now re-presents to the [facility] ED on 05/05/25 with history of [...] air, CBC with WC 9.6, hemoglobin 15.5, [id number] with left shift and lymphopenia, CMP with [...] prior partial cholecystectomy were an expected finding. [facility] Medical History Bacteremia due to Gram-negative bacteria [...] 91.5 H, Lymph % (Auto) 3.4 L, [place] %(Auto) 4.1, Eos % (Auto) 0.0, Baso [...] up imaging as clinically determined. Reading Location: [facility] Assessment & Plan Assessment/Plan (1) Choledocholithiasis with [...] drain placement who now re-presents to the [facility] ED on 05/05/25 with history of [...] planned intervention. Charges/Coding Visit Charges Inpatient E&M: 01034 Init Hosp L2 05/05/25 0209 <Electronically signed by Eileen Brunson MD> Cosigner Signature (if applicable): CC: AGUILAR Arias; Dr. Eileen Brunson MD~ Signed [facility] Work Phone: 1(965) 139-605908-06-2025 History and physical note [facility] Medical Records Department [address] [place] [address] H&P Exam - Hospitalist 05/05/25 0150 MR#: [id number] Acct: [id number] Name: DIANE CONNORS Rep #:[id number] : 1985 39 From: Eileen Brunson MD [...] drain placement who now re-presents to the [facility] ED on 05/05/25 with history of onset fevers starting over the last 24 hours prompting ED evaluation. He denies any associated abdominal pain, nausea or emesis. He does report also having had chills. From review of recordspatient 05/03/25 ERCP with the upper GI tract grossly normal with a single localized biliary stricture found in the middle third of the main bile duct likely postsurgical with specimen cytologically royce en, left and right hepatic ducts and all [...] air, CBC with WC 9.6, hemoglobin 15.5, with left shift and lymphopenia, CMP with complex at 20.9, glucose 134, lacticacid 1.1, T. bili 4.25, D bili 3.03, [...] prior partial cholecystectomy were an expected finding. [facility] Medical History Bacteremia due to Gram-negative bacteria [...] 91.5 H, Lymph % (Auto) 3.4 L, [place] %(Auto) 4.1, Eos % (Auto) 0.0, Baso [...] up imaging as clinically determined. [facility] Plan Assessment/Plan (1) Choledocholithiasis with [...] drain placement who now re-presents to the [facility] ED on 05/05/25 with history of [...] planned intervention. Charges/Coding Visit Charges Inpatient E&M: 88647 Init Hosp L2 05/05/25 0209 Cosigner Signature (if applicable): CC: HAND PAINT MIXERGarrison Arias; Dr. Eileen Brunson MD~ Signed [facility]08-06-2025 Radiology Diagnostic study note [facility] Imaging Services [address] [place], [place] [address] Abdomen/Pelvis W IV Cont ONLY MR#: [id number] Acct: [id number] Name: DIANE CONNORS Rep #: [id number] : 1985 M 39 From: Linda Hunter MD PCP: AGUILAR Giles Status: REG E R Study:Abdomen/Pelvis W IV Cont ONLY Date of E xam: 05/04/25 Exam# [id number] Ordering Dr: Arabella Phillip DO PROCEDURE: ABDOMEN/PELVIS [...] redemonstration of intrahepatic and extrahepatic biliary ductal dilatation,there are noncalcified common bile duct stones. There [...] up imaging as clinically determined. Reading Location: [place] [address] CC: AGUILAR Arias; DO Tanya Latham Critical Power Install Technician: Signed [facility]08-04-2025 Consult note [facility] Medical Records Department [address] [place] [address] Anesthesia Postop Eval II 05/03/25 1349 MR#: [id number] Acct: [id number] Name: DIANE CONNORS Rep #:[id number] : 1985 39 From: Rafael Hooper MD PCP: AGUILAR Giles Status:REG S DC Y Race: C Location: [place] [address] Anesthesia Postop Eval I Sum Postop Eval [...] 0 nausea: No Vomiting: No 05/03/25 1349 > Date _ Rafael Hooper MD Cosign Signature: Date CC: ~ Signed [facility]08-04-2025 Consult note Author Rafael Hooper [facility] Note Date/Time May 03, 2025 11: 43am [facility] Medical Records Department [address] [place] [address] Pre-Anesthesia Evaluation 05/03/25 1142 MR#: [id number] Acct: [id number] Name: DIANE CONNORS Rep #:[id number] : 1985 39 From: Rafael Hooper MD PCP: AGUILAR Giles Status:REG S DC Y Race: C Location: [place] [address] ASA Classification* ASA Classification ASA Classification: 2 [...] 06:03/18/25 Plt Count 264 K/mm3 (150-450) 03/18/25 06:03/18/25 CHEMISTRY Potassium 4.0 mmol/L (3.3-5.1) 03/18/25 06:27 [...] stent pull. 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 History - immigration attorney: Anesthesia History - immigration attorney Hx Hospitalization Yes: 08/2024 ERCP 04/27/25 15:02 [...] take am of surgery PONV PONV - immigration attorney: PONV - immigration attorney Female No 04/27/25 15:02 HX of Motion [...] 03/17/25 19:52 Respiratory Assessment Respiratory Assessment - immigration attorney: Respiratory Tract Infection Hx - immigration attorney Hx Respiratory Tract Infection No 04/27/25 15:02 STOP Sleep Apnea STOP Sleep Apnea - immigration attorney: STOP Sleep Apnea - immigration attorney Hx Hypertension No 04/27/25 15:02 Hx Sleep [...] Tobacco Use History Tobacco Use History - immigration attorney: Tobacco Use History - immigration attorney Tobacco Use Smoking Status Never smoker 04/27/25 15:02 Hx Tobacco Use No 04/27/25 15:02 Years Smoking Packs Smoked per Day Smoking Cessation Date was within the last 15 years Hx Smoking Cessation Date Hx Smoking Cessation Counseling Hematologic Medial History Hematologic Hx - immigration attorney: 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 Hx of Blood Transfusion Yes 04/27/25 15:02 [...] confused, unrespo /Reproduction History /Reproductive History - immigration attorney: /Reproductive Hx- immigration attorney Hx Now No 04/27/25 15:02 Gestational Age [...] MD Cosigner Signature: Date CC: ~ Signed [facility] Work Phone: 1(518) 665-519808-04-2025 Consult note [facility] Medical Records Department [address] [place] [address] Anesthesia Postop Eval I 05/03/25 1341 MR#: [id number] Acct: [id number] Name: DIANE CONNORS Rep #:[id number] : 1985 39 From: Hipolito Rasheed PCP: AGUILAR Giles Status:REG S DC Y Race: C Location: [place] [address] Anesthesia: Postop Eval I Current Vital Signs [...] Yes 05/03/25 1342 > Date _ Hipolito Rasheed Cosigner Signature: Date CC: ~ Signed [facility]08-04-2025 Procedure note [facility] Medical Records Department [address] [place] [address] ERCP Report MR#: [id number] Acct: [id number] Name: DIANE CONNORS Rep #:[id number] : 1985 39 From: Denys Babin DO [...] hours 12 minutes 36 seconds Findings: The pocketed spring machine operator film was normal. A biliary stent was visible on the pocketed spring machine operator film. The esophagus was successfully intubated under [...] 7 days. Procedure Code(s): --- Professional --- 84468, Endoscopic retrograde cholangiopancreatography (ERCP); with removal of foreign body(s) or stent(s) from biliary/pancreatic duct(s) 58353, Endoscopic retrograde cholangiopancreatography (ERCP); with removal of calculi/debris from biliary/pancreatic duct(s) 36253, Endoscopic retrograde cholangiopancreatography (ERCP); with sphincterotomy/papillotomy 21296, 26, Endoscopic catheterization of the biliary ductal system, radiological supervision and interpretation CPT copyright 2021 [employer]. All rights reserved. The codes documented in this report are preliminary and upon cash applications coordinator review may be revised to meet current compliance requirements. Denys Babin DO 05/03/2025 1:35:07 PM This report has been signed electronically. Number of Addenda: 0 Note Initiated On: 05/03/2025 12:46 PM 05/03/25 1335 Date _ Denys Babin DO Cosigner Signature: Date (if indicated) CC: HAND PAINT MIXERGarrison Arias; Denys Babin DO ~ Date Dictated: 05/03/25 1246 Date Transcribed: Critical Power Install Technician: ELDER Signed [facility]08-04-2025 Procedure note [facility] Medical Records Department [address] [facility] [place] [address] Provation Physician Letter MR#: [id number] Acct: [id number] Name: DOROTHY CONNORSN Enma Rep #:[id number] : 1985 39 From: Denys Babin DO [...] DO Cosigner Signature: Date (if indicated) CC: HAND PAINT MIXER-C Shira Arias; Denys Babin DO ~ Date Dictated: 05/03/25 1246 Date Transcribed: Critical Power Install Technician: ELDER Signed [facility]08-04-2025 History and physical note [facility] Medical Records Department [address] [facility] [place] [address] History & Physical Exam 05/03/25 1247 MR#: [id number] Acct: [id number] Name: DIANE CONNORS Rep #:[id number] : 1985 39 From: Denys Babin DO PCP: AGUILAR Giles Status:REG S DC Location: [place] [address] HPI - General General Date of Admission: 05/03/25 Date of Service: 05/03/25 Chief Complaint: Biliary stent removal HPI Narrative DIANE CONNORS, is a 39 M who presents today for ERCP with stent removal. Patient recently underwentERCP with stone removal and stent placement. Last month he underwent elective cholecystectomy. Patient is doing well after procedure. He comes back in for stent removal. [facility] Medical History Bacteremia due to Gram-negative bacteria [...] is a 39-year-old male who presented to [facility] ED on 12/14/2024 with fevers [...] CC: AGUILAR Arias; Denys Friend, DO~ Signed [facility]08[facility]04-[facility] Consult note [facility] Medical Records Department [address] [place] [address] Pre-Anesthesia Evaluation 05/03/25 1142 MR#: [id number] Acct: [id number] Name: DIANE CONNORS Rep #:[id number] : 1985 39 From: Rafael Hooper MD PCP: AGUILAR Giles Status:REG S DC Y Race: C Location: [place] [address] ASA Classification* ASA Classification ASA Classification: 2 [...] 03/18/25 Plt Count 264 K/mm3 (150-450) 03/18/25 06:03/18/25 CHEMISTRY Potassium 4.0 mmol/L (3.3-5.1) 03/18/25 06:27 [...] stent pull. 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 History - immigration attorney: Anesthesia History - immigration attorney Hx Hospitalization Yes: 08/2024 ERCP 04/27/25 15:02 [...] take am of surgery PONV PONV - immigration attorney: PONV - immigration attorney Female No 04/27/25 15:02 HX of Motion [...] 03/17/25 19:52 Respiratory Assessment Respiratory Assessment - immigration attorney: Respiratory Tract Infection Hx - immigration attorney Hx Respiratory Tract Infection No 04/27/25 15:02 STOP Sleep Apnea STOP Sleep Apnea - immigration attorney: STOP Sleep Apnea - immigration attorney Hx Hypertension No 04/27/25 15:02 Hx Sleep [...] Tobacco Use History Tobacco Use History - immigration attorney: Tobacco Use History - immigration attorney Tobacco Use Smoking Status Never smoker 04/27/25 15:02 Hx Tobacco Use No 04/27/25 15:02 Years Smoking Packs Smoked per Day Smoking Cessation Date was within the last 15 years Hx Smoking Cessation Date Hx Smoking Cessation Counseling Hematologic Medial History Hematologic Hx - immigration attorney: 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 Hx of Blood Transfusion Yes 04/27/25 15:02 [...] confused, unrespo /Reproduction History /Reproductive History - immigration attorney: /Reproductive Hx- immigration attorney Hx Now No 04/27/25 15:02 Gestational Age [...] MD Cosigner Signature: Date CC: ~ Signed [facility]07-01-2025 Nuclear medicine Diagnostic study note [facility] Imaging Services [address] [place] [address] Hepatobilliary Imaging MR#: [id number] Acct: [id number] Name: DORYDIANE A Rep #: [id number] : 1985 [place] 39 From: Nick Carter MD PCP: AGUILAR Giles Status: JOSE MIGUEL POLO Study:Hepatobilliary Imaging Date of Exam: 03/30/25 Exam# [id number] Ordering Dr: Bing Temple PA-C ADDENDUM by Dr. Seth Carter MD on 03/30/25 at 1558 No evidence biliary leak is seen. Reading Location: [place] [address] 03/30/25 1558 Date cc: AGUILAR Arias; SERGIO [...] Satisfactory hepatic uptake and excretion. Reading Location: [place] [address] CC: AGUILAR Arias; SERGIO Temple ~ Critical Power Install Technician: Signed [facility]06-26-2025 Progress [facility] [address] [place] [address]. [address] [place] [address] OFFICE VISIT Date of Service: 03/25/25 MR#: [id number] Acct: [id number] Name: DIANE CONNORS Enma Rep #: [id number] : 1985 Provider: SERGIO Temple Age/Sex: 39/M Location: [facility] Status: Signed Intake Vital Signs 03/17/25 19:52 [...] Op Diagnoses Status post laparoscopic cholecystectomy Z90.49 [facility] Medical History History of biliary stent insertion [...] AGUILAR Arias; Dr. Camron Shoemaker MD ~ [facility]06-26-2025 Progress note Author Bing Temple [facility] Note Date/Time March 25, 2025 1:49 pm [facility] [address] [place] [address] OFFICE VISIT Date of Service: 03/25/25 MR#: [id number] Acct: [id number] Name: DIANE CONNORS Rep #: [id number] : 1985 Provider: SERGIO Temple Age/Sex: 39/M Location: [facility] Status: Signed Intake Vital Signs 03/17/25 19:52 [...] Op Diagnoses Status post laparoscopic cholecystectomy Z90.49 [facility] Medical History History of biliary stent insertion [...] AGUILAR Arias; Dr. Camron Shoemaker MD ~ [facility] Work Phone: 1(493) 213-654706-19-2025 Consult note [facility] Medical Records Department [address] [place] [address] Anesthesia Postop Eval II 03/17/25 1638 MR#: [id number] Acct: [id number] Name: DIANE CONNORS Rep #:[id number] : 1985 39 From: Dafne Sims UPHOLSTERY RESTORER PCP: AGUILAR Giles Status:REG S DC Y Race: C Location: [place] [address] Anesthesia Postop Eval I Sum Postop Eval Completion status Anesthesia document: Postop Eval 1 completed: Yes Anesthesia Postop Eval I Summary Anesthesia Postop Eval I Summary: Anesthesia Postop Eval I: Assessment Summary Airway patent Yes 03/17/25 16:38 UPHOLSTERY RESTORER.CSIR Spontaneous unlabored Yes 03/17/25 16:38 UPHOLSTERY RESTORER.CSIR respirations Mental status nausea No 03/17/25 16:38 UPHOLSTERY RESTORER.CSIR Vomiting No 03/17/25 16:38 UPHOLSTERY RESTORER.CSIR Anesthesia Postop Eval I: Fluid Summary Crystalloid volume administer 200 03/17/25 16:38 UPHOLSTERY RESTORER.CSIR (ml) Colloids volume administered ( ml) Blood Product volume administered (ml) Total IV fluid infused 200 03/17/25 16:38 UPHOLSTERY RESTORER.CSIR Anesthesia Postop Eval I: Summary Notes Anesthesia Complication No 03/17/25 16:38 UPHOLSTERY RESTORER.CSIR Anesthesia Complication Comment: Post-operative progress note Anesthesia: Postop Eval II Evaluation Mental status: Awake Pain Level: 1 nausea: No Vomiting: No 03/17/25 1638 a UPHOLSTERY RESTORER> Date _ Dafne Sirca UPHOLSTERY RESTORER Cosigner Signature: CC: ~ Signed [facility]06-19-2025 Consult note [facility] Medical Records Department [address] [place] [address] Anesthesia Postop Eval I 03/17/251652 MR#: [id number] Acct: [id number] Name: DIANE CONNORS Enma Rep #:[id number] : 1985 39 From: Abimael parra UPHOLSTERY RESTORER PCP: AGUILAR Giles Status:REG S DC Y Race: C Location: [place] [address] Anesthesia: Postop Eval I Current Vital Signs [...] Postop Eval 1 completed: Yes 03/17/251652 ero UPHOLSTERY RESTORER> Date _ Abimael Doll UPHOLSTERY RESTORER Cosigner Signature: Date CC: ~ Signed [facility]06-19-2025 Progress note [facility] Medical Records Department [address] [place] [address] Progress Note - Surgery 03/18/25 0700 MR#: [id number] Acct: [id number] Name: DIANE CONNORS Rep #:[id number] : 1985 39 From: Camron Love PCP: Shira Arias HAND PAINT MIXER-C Status:ADM I N Location: [place] [address] Subjective Subjective Patient seen and examined during [...] 74.4 H, Lymph % (Auto) 16.5 L, [place] % (Auto) 8.4, Eos % (Auto) 0.0, [...] Shoemaker MD General Surgery Endocrine Surgery Pager: [facility] [address] [place] [address], [address] [place] [address] Office: [phone] Charges/Coding Visit Charges Inpatient E&M: 89578 Subs Hosp L2 03/18/25 1722 Cosigner Signature (if applicable): CC: ~ Signed [facility]06-19-2025 Discharge summary [facility] Medical Records Department [address] [place] [address] Instructions for Home/Discharge Instructions 03/18/25 1155 MR#: [id number] Acct: [id number] Name: DIANE CONNORS Rep #:[id number] : 1985 39 From: Camron Love PCP: [...] Referrals / Follow Up: Shira Arias NP, HAND PAINT MIXER-C [Primary Care Provider] - Disposition Disposition (needs filled in before D/C Order can be placed): Home, Self Care 03/18/25 1720Micember Shoemaker MD CC: AGUILAR Arias; Dr. Gray López MD ~ Signed [facility]06-19-2025 Discharge summary Author Camron Shoemaker [facility] Note Date/Time March 18, 2025 5:20 pm [facility] Medical Records Department [address] [place] [address] Instructions for Home/Discharge Instructions 03/18/25 1155 MR#: [id number] Acct: [id number] Name: DIANE CONNORS Rep #:[id number] : 1985 39 From: Camron Love PCP: [...] Referrals / Follow Up: Shira Arias NP, HAND PAINT MIXER-C [Primary Care Provider] - Disposition Disposition (needs filled in before D/C Order can be placed): Home, Self Care 03/18/25 1720<Electronically signed by Camron Shoemaker MD>Camron Shoemaker MD CC: HAND PAINT MIXER-C Shira Arias; Dr. Gray López MD ~ Signed [facility] Work Phone: 1(798) 833-884406-19-[address] [facility]06-19-2025 Progress note Author Camron Shoemaker [facility] Note Date/Time March 18, 2025 5:22 pm [facility] Medical Records Department [address] [place] [address] Progress Note - Surgery 03/18/25 0700 MR#: [id number] Acct: [id number] Name: DIANE CONNORS Rep #:[id number] : 1985 39 From: Camron oLve PCP: Shira Arias NP-C Status:ADM I N Location: [place] [address] Subjective Subjective Patient seen and examined during [...] / 350 Output Total 50 / 50 / Balance 1300 / 1300 330 / 330 [...] 74.4 H, Lymph % (Auto) 16.5 L, [place] % (Auto) 8.4, Eos % (Auto) 0.0, [...] Shoemaker MD General Surgery Endocrine Surgery Pager: [facility] [address] [place] [address], [facility], [address] [place] [id number] Office: [phone] Charges/Coding Visit Charges Inpatient E&M: 41808 Subs Hosp L2 03/18/25 1722 <Electronically signed by Camron Shoemaker MD> Cosigner Signature (if applicable): CC: ~ Signed [facility] Work Phone: 1(143) 218-147206-18-2025 Consult note Author Abimael Doll [facility] Note Date/Time March 18, 2025 6:36 pm [facility] Medical Records Department [address] [place] [address] Anesthesia Postop Eval I 03/17/251652 MR#: [id number] Acct: [id number] Name: DIANE CONNORS Rep #:[id number] : 1985 39 From: Abimael parra CRNA PCP: AGUILAR Giles Status:REG S DC Y Race: C Location: [place] [address] Anesthesia: Postop Eval I Current Vital Signs [...] document: Postop Eval 1 completed: Yes 03/17/251652 <Electronically signed by Abimael hines CRNA> Date _ Abimael Doll UPHOLSTERY RESTORER Cosigner Signature: Date CC: ~ Signed [facility] Work Phone: [phone]) 972-771506-18-2025 Consult note Author [facility] Note Date/Time March 17, 2025 4:38 pm [facility] Medical Records Department [address] [facility] [place] [address] Anesthesia Postop Eval I 03/17/25 1607 MR#: [id number] Acct: [id number] Name: DIANE CONNORS Rep #:[id number] : 1985 39 From: Dafne Sims CRNA PCP: AGUILAR Giles Status:REG S DC Y Race: C Location: [place] [address] Anesthesia: Postop Eval I Current Vital Signs [...] Dafne norwood CRNA> Date _ Dafne Sims UPHOLSTERY RESTORER Cosigner Signature: Date CC: ~ Signed [facility] Work Phone: 1(223) 924-294306-18-2025 Consult note Author Dafne [facility] Note Date/Time March 18, 2025 6:36 pm [facility] Medical Records Department [address] [place] [address] Anesthesia Postop Eval II 03/17/251637 MR#: [id number] Acct: [id number] Name: DIANE CONNORS Rep #:[id number] : 1985 39 From: Dafne Sims CRNA PCP: ROLY GilesC Status:REG S DC Y Race: C Location: [place] [address] Anesthesia Postop Eval I Sum Postop Eval Completion status Anesthesia document: Postop Eval 1 completed: Yes Anesthesia Postop Eval I Summary Anesthesia Postop Eval I Summary: Anesthesia Postop Eval I: Assessment Summary Airway patent Yes 03/17/25 16:38 UPHOLSTERY RESTORER.CSIR Spontaneous unlabored Yes 03/17/25 16:38 UPHOLSTERY RESTORER.CSIR respirations Mental status nausea No 03/17/25 16:38 UPHOLSTERY RESTORER.CSIR Vomiting No 03/17/25 16:38 UPHOLSTERY RESTORER.CSIR Anesthesia Postop Eval I: Fluid Summary Crystalloid volume administer 200 03/17/25 16:38 UPHOLSTERY RESTORER.CSIR (ml) Colloids volume administered ( ml) Blood Product volume administered (ml) Total IV fluid infused 200 03/17/25 16:38 UPHOLSTERY RESTORER.CSIR Anesthesia Postop Eval I: Summary Notes Anesthesia Complication No 03/17/25 16:38 UPHOLSTERY RESTORER.CSIR Anesthesia Complication Comment: Post-operative progress note Anesthesia: Postop Eval II Evaluation Mental status: Awake Pain Level: 1 nausea: No Vomiting: No 03/17/251637 <Electronically signed by Dafne norwood CRNA> Date _ Dafne Sims CRNA Cosigner Signature: Date CC: ~ Signed [facility] Work Phone: [phone]) 663-681906-18-2025 Evaluation note* Diagnosis Onset Date Resolution Status [...] 11:31am Hyperbilirubinemia inactive May 03, 2025 11:31am [facility] Work Phone: 1(981) 677-856606-18-2025 Evaluation note* Diagnosis Onset Date Resolution Status [...] te cholecystitis acute May 05, 2025 2:14am [facility] Work Phone: [phone]) 628-586906-18-2025 Evaluation note* Diagnosis Onset Date Resolution Status [...] 11:31am Hyperbilirubinemia inactive May 03, 2025 11:31am Bacteremia due to Gram-negat daniele bacteria acute May 05, 2025 1:52am Cholangitis acute May 05, 2 025 1:52am Choledocholithiasis with acu te cholecystitis acute May 05, 2025 1:52am Elevated liver enzymes acute 2024 1:52am Epigastric abdominal pain acute May 05, 2025 1:52am Pyrexia acute May 05 1:52am Status post endoscopic retro grade cholangiopancreatography acute May 05, 2025 1:52am Elevation of levels of liver transaminase levels inactive May 05, 2025 1:52am Hyperbilirubinemia inactive May 05, 2025 1:52am [facility] Work Phone: 1(600) 201-933406-18-2025 Evaluation note* Diagnosis Onset Date Resolution Status Admit Date Status post laparoscopic cholecystectomy acute March 17, 2025 3:40pm Status post laparoscopic cholecystectomy acute March 25, 2025 1:05pm Cholecystitis acute March 31 025 1:58pm Status post laparoscopic cholecystectomy acute March 31, 2025 1:58pm Status post laparoscopic cholecystectomy acute April 07, 2025 2:29pm Elevation of levels of liver transaminase levels inactive May 03, 2025 11:31am Hyperbilirubinemia inactive May 03, 2025 11:31am Bacteremia due to Gram-negat daniele bacteria resolved May 05, 2025 1:52am Cholangitis resolved May 05 1:52am Choledocholithiasis with acu te cholecystitis resolved May 05, 2025 1:52am Elevated liver enzymes resolved 2024 1:52am Epigastric abdominal pain resolved May 05, 2025 1:52am Pyrexia resolved May 05 1:52am Elevation of levels of liver transaminase levels inactive May 05, 2025 1:52am Hyperbilirubinemia inactive May 05, 2025 1:52am Status post endoscopic retro grade cholangiopancreatography inactive May 05, 2025 1:52am Transaminitis acute April 9:01am [facility] Work Phone: 1(459) 242-434006-18-2025 Consult note [facility] Medical Records Department [address] [place] [address] Anesthesia Postop Eval I 03/17/25 1607 MR#: [id number] Acct: [id number] Name: DIANE CONNORS Rep #:[id number] : 1985 39 From: Dafne Sims CRNA PCP: AGUILAR Giles Status:REG S DC Y Race: C Location: [place] [address] Anesthesia: Postop Eval I Current Vital Signs Temperature: 97.2 F Pulse Rate: 77 Blood Pressure: 154/100 Respiratory Rate: 16 Pulse Ox: 98 Assessment Airway patent: Yes Spontaneous unlabored respirations: Yes nausea: No Vomiting: No Anesthesia Complication: No Fluid Hydration Crystalloid volume administer (ml): 200 Total IV fluid infused: 200 Progress Note Anesthesia document: Postop Eval 1 completed: Yes 03/17/25 1638 a UPHOLSTERY RESTORER> Date _ Dafne Sims UPHOLSTERY RESTORER Cosigner Signature: Date CC: ~ Signed [facility]06-18-2025 History and physical note Author Camron Shoemaker [facility] Note Date/Time March 17, 2025 11:4 8am [facility] Medical Records Department [address] [place] [address] History & Physical Exam 03/17/25 1147 MR#: [id number] Acct: [id number] Name: DIANE CONNORS Rep #:[id number] : 1985 39 From: Camron Love PCP: AGUILAR Giles Status:REG S DC Location: [place] [address] History and Physical Date of Admission: 03/17/25 Date of Service: 12/31/24 MR#: [id number] Acct: [id number] Name: DIANE CONNORS Rep #: [id number] : 1985 Provider: Dr. Camron Shoemaker MD Age/Sex: 39/M Location: [facility] Status: Signed Intake Vital Signs 12/15/2513:00 12/31/2509:04 Height 5 ft 10.08 in 5 ft 10 in Weight: 204 lb 8 oz BMI 29.3 BP 100/70 Blood Pressure Location Rt brachial Position Sitting Respiration 18 Pulse 67 Pulse Source Monitor Temp 97.6 F L Temp Source Temporal Oxygen Delivery Method room air Intake Visit Reasons: GALLBLADDER, [facility] FU Chief Complaint: Gallbladder ERCP 12/15/24 Bow Maker Required: No Accompanied by: Unknown Is patient in pain?: No Allergies No Known Allergies Allergy (Verified 12/31/24 11:28) Medications ?Medication ?Instructions ?Recorded ?Confirmed ?Type NK 12/31/24 12/31/24 History Have you fallen in the past year?: No [facility] Medical History Overweight (BMI 25.0-29.9) No pertinent [...] for recurrence. Given patient's personal experience this nizaj-tyd-odgyfs appears clear to them. 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 03/17/25 1141 <Electronically signed by Camron Shoemaker MD> Cosigner Signature (if applicable): CC: AGUILAR Arias; Dr. Camron Shoemaker MD~ Signed [facility] Work Phone: 1(737) 363-563006-18-2025 Consult note Author Kilo Mtz [facility] Note Date/Time March 17, 2025 11:1 5am [facility] Medical Records Department [address] [place] [address] Pre-Anesthesia Evaluation 03/17/25 1110 MR#: [id number] Acct: [id number] Name: DIANE CONNORS Rep #:[id number] : 1985 39 From: Kilo Mtz MD PCP: AGUILAR Giles Status:REG S DC Y Race: C Location: [place] [address] ASA Classification* ASA Classification ASA Classification: 2 [...] LIVER BIOPSY 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 History - immigration attorney: Anesthesia History - immigration attorney Hx Hospitalization Yes: 08/2024 ERCP 03/03/25 10:05 [...] take am of surgery PONV PONV - immigration attorney: PONV - immigration attorney Female No 03/03/25 10:05 HX of Motion [...] 03/17/25 10:57 Respiratory Assessment Respiratory Assessment - immigration attorney: Respiratory Tract Infection Hx - immigration attorney Hx Respiratory Tract Infection No 03/03/25 10:05 STOP Sleep Apnea STOP Sleep Apnea - immigration attorney: STOP Sleep Apnea - immigration attorney Hx Hypertension No 03/03/25 10:05 Hx Sleep [...] Tobacco Use History Tobacco Use History - immigration attorney: Tobacco Use History - immigration attorney Tobacco Use Smoking Status Never smoker 03/03/25 10:05 Hx Tobacco Use No 03/03/25 10:05 Years Smoking Packs Smoked per Day Smoking Cessation Date was within the last 15 years Hx Smoking Cessation Date Hx Smoking Cessation Counseling Hematologic Medial History Hematologic Hx - immigration attorney: 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 Hx of Blood Transfusion No 03/03/25 10:05 [...] confused, unrespo /Reproduction History /Reproductive History - immigration attorney: /Reproductive Hx- immigration attorney Hx Now Gestational Age (in weeks): EDC: [...] MD Cosigner Signature: Date CC: ~ Signed [facility] Work Phone: 1(751) 751-727606-18-2025 History and physical note [facility] Medical Records Department [address] [place] [address] History & Physical Exam 03/17/25 1147 MR#: [id number] Acct: [id number] Name: DIANE CONNORS Rep #:[id number] : 1985 39 From: Camron Love PCP: AGUILAR Giles Status:REG S DC Location: [place] [address] History and Physical Date of Admission: 03/17/25 Date of Service: 12/31/24 MR#: [id number] Acct: [id number] Name: DIANE CONNORS Rep #: [id number] : 1985 Provider: Dr. Camron Shoemaker MD Age/Sex: 39/M Location: [facility] Status: Signed Intake Vital Signs 12/15/2513:00 12/31/2509:04 Height 5 ft 10.08 in 5 ft 10 in Weight: 204 lb 8 oz BMI 29.3 BP 100/70 Blood Pressure Location Rt brachial Position Sitting Respiration 18 Pulse 67 Pulse Source Monitor Temp 97.6 F L Temp Source Temporal Oxygen Delivery Method room air Intake Visit Reasons: GALLBLADDER, [facility] FU Chief Complaint: Gallbladder ERCP 12/15/24 Bow Maker Required: No Accompanied by: Unknown Is patient [...] for recurrence. Given patient's personal experience this jzxbs-pye-qlzlqk appears clear to them. 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 Camron Shoemaker MD~ Signed [facility]06-18-2025 [facility] Consult note [facility] Medical Records Department [address] [place] [address] Pre-Anesthesia Evaluation 03/17/25 1110 MR#: [id number] Acct: [id number] Name: DIANE CONNORS Rep #:[id number] : 1985 39 From: Kilo Mtz MD PCP: AGUILAR Giles Status:REG S DC Y Race: C Location: [place] [address] ASA Classification* ASA Classification ASA Classification: 2 [...] LIVER BIOPSY 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 History - immigration attorney: Anesthesia History - immigration attorney Hx Hospitalization Yes: 08/2024 ERCP 03/03/25 10:05 [...] take am of surgery PONV PONV - immigration attorney: PONV - immigration attorney Female No 03/03/25 10:05 HX of Motion [...] 03/17/25 10:57 Respiratory Assessment Respiratory Assessment - immigration attorney: Respiratory Tract Infection Hx - immigration attorney Hx Respiratory Tract Infection No 03/03/25 10:05 STOP Sleep Apnea STOP Sleep Apnea - immigration attorney: STOP Sleep Apnea - immigration attorney Hx Hypertension No 03/03/25 10:05 Hx Sleep [...] Tobacco Use History Tobacco Use History - immigration attorney: Tobacco Use History - immigration attorney Tobacco Use Smoking Status Never smoker 03/03/25 10:05 Hx Tobacco Use No 03/03/25 10:05 Years Smoking Packs Smoked per Day Smoking Cessation Date was within the last 15 years Hx Smoking Cessation Date Hx Smoking Cessation Counseling Hematologic Medial History Hematologic Hx - immigration attorney: 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 Hx of Blood Transfusion No 03/03/25 10:05 [...] confused, unrespo /Reproduction History /Reproductive History - immigration attorney: /Reproductive Hx- immigration attorney Hx Now Gestational Age (in weeks): EDC: [...] MD Cosigner Signature: Date CC: ~ Signed [facility]05-28-2025 Nuclear medicine Diagnostic study note [facility] Imaging Services [address] [place] [address]01 Hepatobilliary Imaging MR#: [id number] Acct: [id number] Name: DIANE CONNORS Rep #: [id number] : 1985 M 39 From: Franco Soto MD PCP: Shira Arias NP-Marli Status: JOSE MIGUEL POLO Study:Hepatobilliary Imaging Date of Exam: 02/24/25 Exam# [id number] Ordering Dr: Michela Sal NP HAND PAINT MIXER-C PROCEDURE: HEPATOBILLIARY IMAGING 02/24/2025 REASON FOR EXAM: [...] GALLBLADDER SUSPICIOUS FOR ACUTE CHOLECYSTITIS Reading Location: [place] [address] CC: AGUILAR Sal; AGUILAR Arias ~ Critical Power Install Technician: Signed [facility]03-19-2025 Consult note [facility] Medical Records Department [address] [place] [address] Consultation - Infectious Dx 12/16/24 1613 MR#: [id number] Acct: [id number] Name: DIANE CONNORS Rep #:[id number] : 1985 39 From: Jared melendrez MD PCP: AGUILAR Giles Status:ADM I N Location: [place] [address] Assessment & Plan Assessment/Plan (1) Bacteremia due [...] performed and neg except as noted above. [facility] Medical History Overweight (BMI 25.0-29.9) No pertinent [...] % (Auto) 61.0, Lymph % (Auto) 20.8, [place] % (Auto) 13.5 H, Eos % (Auto) [...] Left Blood Culture - Preliminary GNR lactose website/blog editor 12/14/24 12:25 Blood Culture (Wb) - Anticubital Left Blood Culture - Preliminary GNR lactose website/blog editor Alpha Hemolytic Streptococcus Imaging Radiology Impression Endo Retro Cholangiopancreatogram 12/15/24 17:35 IMPRESSION: Fluoroscopy during ERCP as above. Reading Location: [id number] 12/16/24 1617 Cosigner Signature (if applicable): CC: AGUILAR Arias~ Signed [facility]03-19-2025 Discharge summary Author Francesco Lui [facility] Note Date/Time December 16, 2024 2:1 6pm [facility] Medical Records Department [address] [place] [address] Discharge Summary 12/16/24 1413 MR#: [id number] Acct: [id number] Name: DIANE CONNORS Enma Rep #:[id number] : 1985 39 From: Francesco Love PCP: AGUILAR Giles Status:ADM I N Location: [place] [address] Providers Date of Admission: 12/14/24 Date of Discharge: 12/16/24 Primary Care Physician: AGUILAR Giles Consultations 12/14/24 16:30 Consult: Gastroenterology Routine Consulting Provider: [facility] Reason for Consult: recent ERCP, elevated [...] Consult: choledololithiasis WITH cholelithiasis EMERGENT Consult: No MD Notified: Yes Date Notified: 12/16/24 Time Notified: 11:08 Method of Notification: Verbal Reason For Visit: RECENT ERCP W FEVERS Diagnosis Discharge Diagnosis (1) Choledocholithiasis: Status: Resolved Code(s): K80.50 - Calculus of bile duct without cholangitis or cholecystitis without obstruction Plan Patient is a 39-year-old male who presented to [facility] ED on 12/14/2024 with fevers [...] % (Auto) 61.0, Lymph % (Auto) 20.8, [place] % (Auto) 13.5 H, Eos % (Auto) [...] Left Blood Culture - Preliminary GNR lactose website/blog editor 12/14/24 12:25 Blood Culture (Wb) - Anticubital Left Blood Culture - Preliminary GNR lactose website/blog editor Alpha Hemolytic Streptococcus 12/14/24 12:25 Mucosa - Nose SARS-CoV-2, Influenza & RSV (PCR) - Final Radiography Diagnostic Testing: Radiology Impression Endo Retro Cholangiopancreatogram 12/15/24 17:35 IMPRESSION: Fluoroscopy during ERCP as above. Reading Location: [id number] D/C Instructions DC O2, CPAP, BIPAP Needs [...] Jared Arevalo Instructions Additional Instructions / Restrictions: Wgbm-vnp-uqansiz Tylenol 500 mg every 6 hourly for [...] Self Care Charges/Coding Visit Charges Inpatient E&M: 28378 Disch Hosp >30min 12/16/24 1416 <Electronically signed by Francesco Lui MD> Cosigner Signature (if applicable): CC: AGUILAR Arias; Dr. Camron Shoemaker MD; Dr. Francesco Lui MD; Dr. Jared Arevalo MD; Denys Babin DO~ Signed [facility] Work Phone: 1(588) 468-993803-19-2025 Discharge summary Author Francesco Lui [facility] Note Date/Time December 16, 2024 2:1 3pm [facility] Medical Records Department [address] [place] [address] Instructions for Home/Discharge Instructions 12/16/24 1405 MR#: [id number] Acct: [id number] Name: DIANE CONNORS Rep #:[id number] : 1985 39 From: Francesco Love PCP: [...] Jared Arevalo Instructions Additional Instructions / Restrictions: Oyzy-iha-hvlfpnw Tylenol 500 mg every 6 hourly for [...] (Follow- up liver chemistry) Shira Arias NP, ROLYC [Primary Care Provider] - Disposition Disposition (needs filled in before D/C Order can be placed): Home, Self Care 12/16/24 1413<Electronically signed by Francesco Lui MD>Francesco Lui MD CC: ELLI-C Shira Arias; Dr. Cruz Arciniega DO; Dr. Camron Shoemaker MD; Dr. Jared Arvealo MD ~ Signed [facility] Work Phone: 1(420) 218-297003-19-2025 Consult note Author Camron Shoemaker [facility] Note Date/Time December 16, 2024 12: 25pm [facility] Medical Records Department [address] [place] [address] Consultation - Surgical 12/16/24 1211 MR#: [id number] Acct: [id number] Name: DIANE CONNORS Rep #:[id number] : 1985 39 From: Camron Love PCP: AGUILAR Giles Status:ADM I N Location: [place] [address]- Assessment & Plan Assessment/Plan (1) Choledocholithiasis: PLAN: [...] for recurrence. Given patient's personal experience this vyxls-akh-jduvvh appears clear to them. Patient's spouse does [...] Shoemaker MD General Surgery Endocrine Surgery Pager: [facility] [address] [place] [address], [address] [place] [address] Office: [phone] HPI Consult Data Date of Consult: 12/16/24 [...] returned to normal when checked through the [facility] system and that is what prompted him to request stent removal from gastroenterology. Gastroenterology had advised against stent removal givenpatient had gallbladder still in place but at patient insistence they proceeded with stent removal. Patient has no significant past medical history aside from the above. He has nohistory of abdominal surgeries. [facility] Medical History Overweight (BMI 25.0-29.9) No pertinent [...] % (Auto) 61.0, Lymph % (Auto) 20.8, [place] % (Auto) 13.5 H, Eos % (Auto) [...] Left Blood Culture - Preliminary GNR lactose website/blog editor 12/14/24 12:25 Blood Culture (Wb) - Anticubital Left Blood Culture - Preliminary GNR lactose website/blog editor Alpha Hemolytic Streptococcus Imaging Radiology Impression Endo Retro Cholangiopancreatogram 12/15/24 17:35 IMPRESSION: Fluoroscopy during ERCP as above. Reading Location: [id number]-ZT Charges/Coding Visit Charges Inpatient E&M: 03594 Init Hosp L2 12/16/24 1225 <Electronically signed by Camron Shoemaker MD> Cosigner Signature (if applicable): CC: AGUILAR Arias~ Signed [facility] Work Phone: [phone]) 333-809903-19-2025 Discharge summary [facility] Medical Records Department [address] [place] [address] Discharge Summary 12/16/24 1413 MR#: [id number] Acct: [id number] Name: DIANE CONNORS Rep #:[id number] : 1985 39 From: Francesco Love PCP: AGUILAR Giles Status:ADM I N Location: [place] [address] Providers Date of Admission: 12/14/24 Date of Discharge: 12/16/24 Primary Care Physician: AGUILAR Giles Consultations 12/14/24 16:30 Consult: Gastroenterology Routine Consulting Provider: [facility] Reason for Consult: recent ERCP, elevated [...] is a 39-year-old male who presented to [facility] ED on 12/14/2024 with fevers [...] % (Auto) 61.0, Lymph % (Auto) 20.8, [place] % (Auto) 13.5 H, Eos % (Auto) [...] Left Blood Culture - Preliminary GNR lactose website/blog editor 12/14/24 12:25 Blood Culture (Wb) - Anticubital Left Blood Culture - Preliminary GNR lactose website/blog editor Alpha Hemolytic Streptococcus 12/14/24 12:25 Mucosa - Nose SARS-CoV-2, Influenza & RSV (PCR) - Final Radiography Diagnostic Testing: Radiology Impression Endo Retro Cholangiopancreatogram 12/15/24 17:35 IMPRESSION: Fluoroscopy during ERCP as above. Reading Location: [id number] D/C Instructions DC O2, CPAP, BIPAP Needs [...] Jared Arevalo Instructions Additional Instructions / Restrictions: Bpku-olu-fabamfr Tylenol 500 mg every 6 hourly for fever more than 102 Fahrenheit Discharge Orders/Prescriptions Prescriptions: New amoxicillin-pot clavulanate 875-125 mg tablet 1 tab PO BID 7 Days Qty: 14 0RF Referrals / Follow Up: Camron Shoemaker MD [Med Staff - Active Staff] - Within 2 Weeks Denys Babin DO [Med Staff - Active Staff] - Within 1 Month Khang,Cayla, HAND PAINT MIXER-C [Med Staff - Adv Practice Prof] - Within 2 Weeks (Follow- up liver chemistry) Shira Arias NP, HAND PAINT MIXER-C [Primary Care Provider] - Disposition Disposition (needs filled in before D/C Order can be placed): Home, Self Care Charges/Coding Visit Charges Inpatient E&M: 92640 Disch Hosp >30min 12/16/24 1416 Cosigner Signature (if applicable): CC: ELLI-Marli Arias; Dr. Camron Shoemaker MD; Dr. Francesco Lui MD; Dr. Jared Arevalo MD; Denys Babin DO~ Signed [facility]03-19-2025 Discharge summary [facility] Medical Records Department [address] [place] [address] Instructions for Home/Discharge Instructions 12/16/24 1405 MR#: [id number] Acct: [id number] Name: DIANE CONNORS Rep #:[id number] : 1985 39 From: Francesco Love PCP: [...] Jared Arevalo Instructions Additional Instructions / Restrictions: Tjqb-bkc-ddqpvop Tylenol 500 mg every 6 hourly for [...] MD; Dr. Jared Arevalo MD ~ Signed [facility]03-19-[address] [facility]03-19-2025 Consult note [facility] Medical Records Department [address] [place] [address] Consultation - Surgical 12/16/24 1211 MR#: [id number] Acct: [id number] Name: DIANE CONNORS Rep #:[id number] : 1985 39 From: Camron Love PCP: AGUILAR Giles Status:ADM I N Location: [place] [address] Assessment & Plan Assessment/Plan (1) Choledocholithiasis: PLAN: [...] that he did not follow through with [facility] order. Upon obtaining laboratories that showed [...] for recurrence. Given patient's personal experience this ipteh-ugl-nemqsj appears clear to them. Patient's spouse does [...] Shoemaker MD General Surgery Endocrine Surgery Pager: [facility] [address] [place] [address], [address] [place] [address] Office: [phone] HPI Consult Data Date of Consult: 12/16/24 [...] returned to normal when checked through the [facility] system and that is what prompted him to request stent removal from gastroenterology. Gastroenterology had advised against stent removal givenpatient had gallbladder still in place but at patient insistence they proceeded with stent removal. Patient has no significant past medical history aside from the above. He has nohistory of abdominalsurgeries. [facility] Medical History Overweight (BMI 25.0-29.9) No pertinent [...] % (Auto) 61.0, Lymph % (Auto) 20.8, [place] % (Auto) 13.5 H, Eos % (Auto) [...] Left Blood Culture - Preliminary GNR lactose website/blog editor 12/14/24 12:25 Blood Culture (Wb) - Anticubital Left Blood Culture - Preliminary GNR lactose website/blog editor Alpha Hemolytic Streptococcus Imaging Radiology Impression Endo Retro Cholangiopancreatogram 12/15/24 17:35 IMPRESSION: Fluoroscopy during ERCP as above. Reading Location: [id number] Charges/Coding Visit Charges Inpatient E&M: 90548 Init Hosp L2 12/16/24 1225 Cosigner Signature (if applicable): CC: AGUILAR Arias~ Signed [facility]03-18-2025 Consult note Author Gray López [facility] Note Date/Time December 15, 2024 6:4 5pm [facility] Medical Records Department [address] [place] [address] Anesthesia Postop Eval II 12/15/24 1845 MR#: [id number] Acct: [id number] Name: DOROTHY CONNORSNereida [place] Rep #:[id number] : 1985 39 From: Gray López MD PCP: AGUILAR Giles Status:ADM I N Y Race: C Location: [place] [address]-1 Anesthesia Postop Eval I Sum Postop [...] MD Cosigner Signature: Date CC: ~ Signed [facility] Work Phone: 1(319) 783-262103-18-2025 Consult note Author Gray [facility] Note Date/Time December 15, 2024 6:4 4pm [facility] Medical Records Department [address] [place] [address] Anesthesia Postop Eval I 12/15/241842 MR#: [id number] Acct: [id number] Name: KENNEY CONNORSDAMIÁN [place] Rep #:[id number] : 1985 39 From: Gray López MD PCP: AGUILAR Giles Status:ADM I N Y Race: C Location: [place] [address]-1 Anesthesia: Postop Eval I Current Vital [...] Postop Eval 1 completed: Yes 12/15/24 1844 <Electronically signed by Gray López MD> Date _ Gray López MD Cosigner Signature: Date CC: ~ Signed [facility] Work Phone: 1(478) 262-662503-18-2025 Progress note Author Denys Friend [facility] Note Date/Time December 15, 2024 5:3 8pm [facility] Medical Records Department [address] [place] [address] Progress Note 12/15/24 1734 MR#: [id number] Acct: [id number] Name: DORYDIANE Rep #:[id number] : 1985 39 From: eDnys Babin DO PCP: AGUILAR Giles Status:ADM I N Location: [place] [address] Progress Note I had a long conversation [...] is a 39-year-old male who presented to [facility] ED on 12/14/2024 with fevers [...] ERCP today. . Visit Charges Inpatient E&M: 39575 Subs Hosp L2 12/15/24 1738 <Electronically signed by Denys Babin DO> Denys Babin DO Cosigner Signature (if applicable): CC: ~ Signed [facility] Work Phone: 1(616) 406-901503-18-2025 Radiology Diagnostic study note [facility] Imaging Services [address] [place], [place] [address] ERCP Biliary/Pancreas MR#: [id number] Acct: [id number] Name: DIANE CONNORS Rep #: [id number] : 1985 M 39 From: Jadiel Lawson MD PCP: AGUILAR Giles Status: ADM I N Study:ERCP Biliary/Pancreas Date of Exam: 12/15/24 Exam# [id number] Ordering Dr: Kayeligh Babin DO PROCEDURE: ERCP BILIARY/PANCREAS 12/15/2024 REASON [...] Fluoroscopy during ERCP as above. Reading Location: [facility] CC: AGUILAR Arias; Denys Friend, DO ~ Critical Power Install Technician: Signed [facility]03-18-2025 Consult note [facility] Medical Records Department [address] [place] [address] Anesthesia Postop Eval II 12/15/241844 MR#: [id number] Acct: [id number] Name: DIANE CONNORS Rep #:[id number] : 1985 39 From: Gray López MD PCP: AGUILAR Giles Status:ADM I N Y Race: C Location: [place] [address] 0-1 Anesthesia Postop Eval I Sum Postop [...] Vomiting: No Complications Anesthesia Complication: No 12/15/241844 > Date _ Gray López MD Cosigner Signature: Date CC: ~ Signed [facility]03-18-2025 Consult note [facility] Medical Records Department [address] [place] [address] Anesthesia Postop Eval I 12/15/24 1843 MR#: [id number] Acct: [id number] Name: CONNORSDIANE A Rep #:[id number] : 1985 39 From: Gray López MD PCP: ROLY GilesC Status:ADM I N Y Race: C Location: [place] [address] 0-1 Anesthesia: Postop Eval I Current Vital [...] MD Cosigner Signature: Date CC: ~ Signed [facility]03-18-2025 Consult note Author Gray López [facility] Note Date/Time December 15, 2024 4:1 9pm [facility] Medical Records Department [address] [facility] [address] Pre-Anesthesia Evaluation 12/15/24 1551 MR#: [id number] Acct: [id number] Name: DORYDIANE Rep #:[id number] : 1985 39 From: Gray López MD PCP: AGUILAR Giles Status:ADM I N Y Race: C Location: [place] [address] 0-1 ASA Classification* ASA Classification ASA Classification: [...] Procedure(s): ERCP 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 History - immigration attorney: Anesthesia History - immigration attorney Hx Hospitalization Yes: 08/2024 ERCP 12/09/24 10:19 [...] take am of surgery PONV PONV - immigration attorney: PONV - immigration attorney Female HX of Motion Sickness HX of N/V After Surgery Non-Smoker Duration of Surgery greater than 60 minutes Number of Risk Factors PONV Score Height & Weight Height & Weight: Anesthesia: Height & Weight Height 5 ft 10.08 in 12/15/24 14:00 Weight: 93 kg 12/15/24 14:00 Body Mass Index (BMI) 29.3 12/15/24 14:00 Respiratory Assessment Respiratory Assessment - immigration attorney: Respiratory Tract Infection Hx - immigration attorney Hx Respiratory Tract Infection No 12/14/24 21:38 STOP Sleep Apnea STOP Sleep Apnea - immigration attorney: STOP Sleep Apnea - immigration attorney Hx Hypertension No 12/14/24 16:44 Hx Sleep [...] Tobacco Use History Tobacco Use History - immigration attorney: Tobacco Use History - immigration attorney Tobacco Use Smoking Status Never smoker 12/14/24 16:44 Hx Tobacco Use No 12/14/24 16:44 Years Smoking Packs Smoked per Day Smoking Cessation Date was within the last 15 years Hx Smoking Cessation Date Hx Smoking Cessation Counseling Hematologic Medial History Hematologic Hx - immigration attorney: 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 Hx of Blood Transfusion No 12/14/24 16:44 [...] confused, unrespo /Reproduction History /Reproductive History - immigration attorney: /Reproductive Hx- immigration attorney Hx Now No 12/14/24 21:38 Gestational Age [...] MD Cosigner Signature: Date CC: ~ Signed [facility] Work Phone: 1(546) 155-274203-18-2025 Procedure note [facility] Medical Records Department [address] [place] [address] ERCP Report MR#: [id number] Acct: [id number] Name: DIANE CONNORS Rep #:[id number] : 1985 39 From: Denys Babin DO [...] hours 12 minutes 6 seconds Findings: The pocketed spring machine operator film was normal. The esophagus was successfully [...] bile duct. Procedure Code(s): --- Professional --- 94592, Endoscopic retrograde cholangiopancreatography (ERCP); with placement of endoscopic stent into biliary or pancreatic duct, including pre- and post-dilation and guide wire passage, when performed, including sphincterotomy, when performed, each stent 59501, Endoscopic retrograde cholangiopancreatography (ERCP); with removal of calculi/debris from biliary/pancreatic duct(s) 62828, 26, Endoscopic catheterization of the biliary ductal system, radiological supervision and interpretation CPT copyright 2021 [employer]. All rights reserved. The codes documented in this report are preliminary and upon cash applications coordinator review may be revised to meet current compliance requirements. Denys Babin DO 12/15/2024 6:13:06 PM This report has been signed electronically. Number of Addenda: 0 Note Initiated On: 12/15/2024 5:32 PM 12/15/24 181 Date _ Denys Bbain DO Cosigner Signature: Date (if indicated) CC: AGUILAR Arias; Denys Babin DO ~ Date Dictated: 12/15/24 1732 Date Transcribed: Critical Power Install Technician: RF Signed [facility]03-18-2025 Procedure note [facility] Medical Records Department [address] [place] [address] Operative Report - CC Letter MR#: [id number] Acct: [id number] Name: DIANE CONNORS Rep #:[id number] : 1985 39 From: Denys Babin DO [...] ~ Date Dictated: 12/15/24 1732 Date Transcribed: Critical Power Install Technician: RF Signed [facility]03-18-2025 Progress note [facility] Medical Records Department [address] [place] [address] Progress Note 12/15/24 173 MR#: [id number] Acct: [id number] Name: DIANE CONNORS Rep #:[id number] : 1985 39 From: Denys Babin DO PCP: AGUILAR Giles Status:ADM I N Location: [place] [address] Progress Note I had a long conversation [...] is a 39-year-old male who presented to [facility] ED on 12/14/2024 with fevers [...] ERCP today. . Visit Charges Inpatient E&M: 82865 Subs Hosp L2 12/15/24 7847 Denys Friend DO Cosigner Signature (if applicable): CC: ~ Signed [facility]03-18-2025 Consult note [facility] Medical Records Department [address] [place] [address] Pre-Anesthesia Evaluation 12/15/24 1551 MR#: [id number] Acct: [id number] Name: DIANE CONNORS Rep #:[id number] : 1985 39 From: Gray López MD PCP: AGUILAR Giles Status:ADM I N Y Race: C Location: [place] [address] 0-1 ASA Classification* ASA Classification ASA Classification: [...] Procedure(s): ERCP 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 History - immigration attorney: Anesthesia History - immigration attorney Hx Hospitalization Yes: 08/2024 ERCP 12/09/24 10:19 [...] take am of surgery PONV PONV - immigration attorney: PONV - immigration attorney Female HX of Motion Sickness HX of N/V After Surgery Non-Smoker Duration of Surgery greater than 60 minutes Number of Risk Factors PONV Score Height & Weight Height & Weight: Anesthesia: Height & Weight Height 5 ft 10.08 in 12/15/24 14:00 Weight: 93 kg 12/15/24 14:00 Body Mass Index (BMI) 29.3 12/15/24 14:00 Respiratory Assessment Respiratory Assessment - immigration attorney: Respiratory Tract Infection Hx - immigration attorney Hx Respiratory Tract Infection No 12/14/24 21:38 STOP Sleep Apnea STOP Sleep Apnea - immigration attorney: STOP Sleep Apnea - immigration attorney Hx Hypertension No 12/14/24 16:44 Hx Sleep [...] Tobacco Use History Tobacco Use History - immigration attorney: Tobacco Use History - immigration attorney Tobacco Use Smoking Status Never smoker 12/14/24 16:44 Hx Tobacco Use No 12/14/24 16:44 Years Smoking Packs Smoked per Day Smoking Cessation Date was within the last 15 years Hx Smoking Cessation Date Hx Smoking Cessation Counseling Hematologic Medial History Hematologic Hx - immigration attorney: 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 Hx of Blood Transfusion No 12/14/24 16:44 [...] confused, unrespo /Reproduction History /Reproductive History - immigration attorney: /Reproductive Hx- immigration attorney Hx Now No 12/14/24 21:38 Gestational Age [...] MD Cosigner Signature: Date CC: ~ Signed [facility]03-18-2025 Progress note Author Francesco Lui [facility] Note Date/Time December 15, 2024 2:1 6pm [facility] Medical Records Department [address] [place] [address] Progress Note - Hospitalist 12/15/24 0801 MR#: [id number] Acct: [id number] Name: DIANE CONNORS Rep #:[id number] : 1985 39 From: Francesco Love PCP: AGUILAR Giles Status:ADM I N Location: [place] [address] Reason for Visit Reason for Visit: Diagnoses [...] 90.5 H, Lymph % (Auto) 3.2 L, [place] % (Auto) 4.7, Eos % (Auto) 0.1, [...] Clarity Clear, Urine pH 7.0, Ur Specific [place] 1.005, Urine Protein 30 H, Urine Glucose [...] the head of the pancreas. Reading Location: [facility] Chest X-Ray 12/14/24 12:19 IMPRESSION: 1. Mild left basilar airspace disease favorable for atelectasis/scarring howeverthis is not definite in the absence of prior exams to confirm stability. Correlate for mild pneumonia. 2. Additional description as above. Reading Location: [facility] Physical Exam Narrative Seen and examined. Patient [...] is a 39-year-old male who presented to [facility] ED on 12/14/2024 with fevers [...] elevated ALT since August 2024 as per [email or web address]. Fluctuates between 50 to 78. Admitted with [...] is 35 minutes. Visit Charges Inpatient E&M: 18802 Subs Hosp L3 12/15/24 1416 <Electronically signed by Francesco Lui MD> Cosigner Signature (if applicable): CC: ~ Signed [facility] Work Phone: 1(504) 906-153603-18-2025 Progress note [facility] Medical Records Department [address] [place] [address] Progress Note - Hospitalist 12/15/24 0801 MR#: [id number] Acct: [id number] Name: DIANE CONNORS Rep #:[id number] : 1985 39 From: Francesco Love PCP: AGUILAR Giles Status:ADM I N Location: [place] [address] Reason for Visit Reason for Visit: Diagnoses [...] 90.5 H, Lymph % (Auto) 3.2 L, [place] % (Auto) 4.7, Eos % (Auto) 0.1, [...] Clarity Clear, Urine pH 7.0, Ur Specific [place] 1.005, Urine Protein 30 H, Urine Glucose [...] the head of the pancreas. Reading Location: [facility] Chest X-Ray 12/14/24 12:19 IMPRESSION: 1. Mild left basilar airspace disease favorable for atelectasis/scarring howeverthis is not definite in the absence of prior exams to confirm stability. Correlate for mild pneumonia. 2. Additional description as above. Reading Location: [facility] Physical Exam Narrative Seen and examined. Patient [...] is a 39-year-old male who presented to [facility] ED on 12/14/2024 with fevers [...] is 35 minutes. Visit Charges Inpatient E&M: 34629 Subs Hosp L3 12/15/24 1416 Cosigner Signature (if applicable): CC: ~ Signed [facility]03-17-2025 Discharge summary Author Petar Barrera [facility] Note Date/Time December 14, 2024 3:4 8pm [facility] Medical Records Department [address] [place] [address] Emergency Department Summary 12/14/24 MR#: [id number] Acct: [id number] Name: DIANE CONNORS Rep #:[id number] : 1985 39 From: Petar Parra PCP: AGUILAR Giles Status:ADM I N Location: [address] History of Present Illness Chief Complaint: [...] Ox 94 Oxygen Delivery Method Room Air [facility] MDM Narrative Medical decision making narrative: HISTORY [...] History obtained from others: the patient's Consults: Movie Writer (Dr. Babin), internal medicine (Dr. Arciniega) MDM [...] for reoccurring hepatobiliary production. Discussed with the passenger solicitor (Dr. Babin) recommended admission with broad-spectrum antibiotics for ERCP and possible stent placement. Saw the patient broad-spectrum antibiotics given white count, fever and concern for infectious cholestasis. Discussed with hospitalist agreed admit the patient to [facility]. The patient and/or family, caregivers express understanding. [...] 4. Elevated liver enzymes Dispo: Admit to [facility] discharge This note was generated with [employer] dictation software. It may contain incorrect words, [...] 90.5 H Lymph % (Auto) 3.2 L [place] % (Auto) 4.7 Eos % (Auto) 0.1 [...] Clarity Clear Urine pH 7.0 Ur Specific [place] 1.005 Urine Protein 30 H Urine Glucose [...] the head of the pancreas. Reading Location: [facility] Chest X-Ray 12/14/24 12:19 IMPRESSION: 1. Mild left basilar airspace disease favorable for atelectasis/scarring however this is not definite in the absence of prior exams to confirm stability. Correlate for mild pneumonia. 2. Additional description as above. Reading Location: [facility] Discharge Plan Triage Chief Complaint: Fever ED Provider: Petar Barrera Dx/Rx/DC Orders Primary Care Provider: Shira Arias NP What to do if you have Problems For any increased pain, shortness of breath, bleeding, nausea or vomiting, chest pain, or any unexpected problems, contact your Primary Care Provider. Call [facility] ([phone]) or report to the closest Emergency Room. Call 911 if necessary. 12/14/24 1545 <Electronically signed by Petar Barrera DO> Cosigner Signature (if applicable): CC: ELLI-C Shira Arias ~ Signed [facility] Work Phone: 1(405) 233-848203-17-2025 History and physical note Author Cruz Arciniega [facility] Note Date/Time December 14, 2024 3:1 2pm [facility] Medical Records Department [address] [facility] [place] [address] H&P Exam - Hospitalist 12/14/24 0105 MR#: [id number] Acct: [id number] Name: DIANE CONNORS Rep #:[id number] : 1985 39 From: Cruz esposito DO PCP: AGUILAR Giles Status:REG E R Location: ED HPI - General General Date of Admission: 12/14/24 Date of Service: 12/14/24 Chief Complaint: Fevers and chills HPI Narrative DIANE CONNORS, is a 39 M who presented to [facility] ED on 12/14/2024 with fevers [...] any other acute concerns at this time. [facility] Medical History Overweight (BMI 25.0-29.9) No pertinent [...] 90.5 H, Lymph % (Auto) 3.2 L, [place] % (Auto) 4.7, Eos % (Auto) 0.1, [...] Clarity Clear, Urine pH 7.0, Ur Specific [place] 1.005, Urine Protein 30 H, Urine Glucose [...] the head of the pancreas. Reading Location: [facility] Chest X-Ray 12/14/24 12:19 IMPRESSION: 1. Mild left basilar airspace disease favorable for atelectasis/scarring howeverthis is not definite in the absence of prior exams to confirm stability. Correlate for mild pneumonia. 2. Additional description as above. Reading Location: [facility] Assessment & Plan Assessment/Plan (1) Hyperbilirubinemia: (2) Elevation of levels of liver transaminase levels: PLAN: Plan Patient is a 39-year-old male who presented to [facility] ED on 12/14/2024 with fevers and chills after recent ERCP. 1. 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 Admit under inpatient status to [facility]. GI consulted. See HPI for further details [...] 55 minutes. Charges/Coding Visit Charges Inpatient E&M: 39575 Init Hosp L2 12/14/24 1512 <Electronically signed by Cruz Arciniega DO> Cosigner Signature (if applicable): CC: AGUILAR Arias; Dr. Cruz Arciniega DO~ Signed [facility] Work Phone: 1(806) 938-942803-17-2025 Discharge summary [facility] Medical Records Department [address] [place] [address] Emergency Department Summary 12/14/24 MR#: [id number] Acct: [id number] Name: DIANE CONNORS Rep #:[id number] : 1985 39 From: Petar Parra PCP: AGUILAR Giles Status:ADM I N Location: [address] History of Present Illness Chief Complaint: [...] History obtained from others: the patient's Consults: Movie Writer (Dr. Babin), internal medicine (Dr. Arciniega) [facility] Narrative: The patient was initially hemodynamically [...] for reoccurring hepatobiliary production. Discussed with the passenger solicitor (Dr. Babin) recommended admission with broad-spectrum antibiotics for ERCP and possible stent placement. Saw the patient broad-spectrum antibiotics given white count, fever and concern for infectious cholestasis. Discussed with hospitalist agreed admit the patient to [facility]. The patient and/or family, caregivers express understanding. [...] 4. Elevated liver enzymes Dispo: Admit to [facility] discharge This note was generated with [employer] dictation software. It may contain incorrect words, [...] 90.5 H Lymph % (Auto) 3.2 L [place] % (Auto) 4.7 Eos % (Auto) 0.1 [...] Clarity Clear Urine pH 7.0 Ur Specific [place] 1.005 Urine Protein 30 H Urine Glucose [...] the head of the pancreas. [facility] Chest X-Ray 12/14/24 12:19 IMPRESSION: 1. Mild left basilar airspace disease favorable for atelectasis/scarring however this is not definite in the absence of prior exams to confirm stability. Correlate for mild pneumonia. 2. Additional description as above. Reading Location: [facility] Discharge Plan Triage Chief Complaint: Fever ED Provider: Petar Barrera Dx/Rx/DC Orders Primary Care Provider: Shira Arias NP What to do if you have Problems For any increased pain, shortness of breath, bleeding, nausea or vomiting, chest pain, or any unexpected problems, contact your Primary Care Provider. Call [facility] ([phone]) or report to the closest Emergency Room. Call 911 if necessary. 12/14/24 1548 Cosigner Signature (if applicable): CC: ELLI-C Shira Arias ~ Signed [facility]03-17-2025 History and physical note [facility] Medical Records Department [address] [place] [address] H&P Exam - Hospitalist 12/14/24 5635 MR#: [id number] Acct: [id number] Name: DIANE CONNORS Rep #:[id number] : 1985 39 From: Cruz esposito DO PCP: AGUILAR Giles Status:REG E R Location: ED HPI - General General Date of Admission: 12/14/24 Date of Service: 12/14/24 Chief Complaint: Fevers and chills HPI Jesus CONNORS, is a 39 M who presented to [facility] ED on 12/14/2024 with fevers [...] any other acute concerns at this time. [facility] Medical History Overweight (BMI 25.0-29.9) No pertinent [...] 90.5 H, Lymph % (Auto) 3.2 L, [place] % (Auto) 4.7, Eos % (Auto) 0.1, [...] Clarity Clear, Urine pH 7.0, Ur Specific [place] 1.005, Urine Protein 30 H, Urine Glucose [...] the head of the pancreas. Reading Location: [facility] Chest X-Ray 12/14/24 12:19 IMPRESSION: 1. Mild left basilar airspace disease favorable for atelectasis/scarring howeverthis is not definite in the absence of prior exams to confirm stability. Correlate for mild pneumonia. 2. Additional description as above. Reading Location: [id number] Assessment & Plan Assessment/Plan (1) Hyperbilirubinemia: (2) Elevation of levels of liver transaminase levels: PLAN: Plan Patient is a 39-year-old male who presented to [facility] ED on 12/14/2024 with fevers and chills after recent ERCP. 1. 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 Admit under inpatient status to [facility]. GI consulted. See HPI for further details [...] 55 minutes. Charges/Coding Visit Charges Inpatient E&M: 13219 Init Hosp L2 12/14/24 1512 Cosigner Signature (if applicable): CC: AGUILAR Arias; Dr. Cruz Arciniega, DO~ Signed [facility]03-17-2025 Discharge summary [facility] Note Date/Time December 14, 2024 3:4 8pm [facility] Medical Records Department [address] [place] [address] Emergency Department Summary 12/14/24 MR#: [id number] Acct: [id number] Name: DIANE CONNORS Rep #:[id number] : 1985 39 From: Peatr Parra PCP: AGUILAR Giles Status:ADM I N Location: [address] History of Present Illness Chief Complaint: [...] History obtained from others: the patient's Consults: Movie Writer (Dr. Babin), internal medicine (Dr. Arciniega) [facility] Narrative: The patient was initially hemodynamically [...] for reoccurring hepatobiliary production. Discussed with the passenger solicitor (Dr. Babin) recommended admission with broad-spectrum antibiotics for ERCP and possible stent placement. Saw the patient broad-spectrum antibiotics given white count, fever and concern for infectious cholestasis. Discussed with hospitalist agreed admit the patient to [facility]. The patient and/or family, caregivers express understanding. [...] 4. Elevated liver enzymes Dispo: Admit to [facility] discharge This note was generated with [employer] dictation software. It may contain incorrect words, [...] 90.5 H Lymph % (Auto) 3.2 L [place] % (Auto) 4.7 Eos % (Auto) 0.1 [...] Clarity Clear Urine pH 7.0 Ur Specific [place] 1.005 Urine Protein 30 H Urine Glucose [...] the head of the pancreas. [facility] Chest X-Ray 12/14/24 12:19 IMPRESSION: 1. Mild left basilar airspace disease favorable for atelectasis/scarring however this is not definite in the absence of prior exams to confirm stability. Correlate for mild pneumonia. 2. Additional description as above. Reading Location: [facility] Discharge Plan Triage Chief Complaint: Fever ED Provider: Petar Barrera Dx/Rx/DC Orders Primary Care Provider: Shira Arias NP What to do if you have Problems For any increased pain, shortness of breath, bleeding, nausea or vomiting, chest pain, or any unexpected problems, contact your Primary Care Provider. Call [facility] ([phone]) or report to the closest Emergency Room. Call 911 if necessary. 12/14/24 1548 <Electronically signed by Petar Barrera DO> Cosigner Signature (if applicable): CC: ELLI-C Shira Arias ~ Signed [facility] Work Phone: 1(232) 952-363703-17-2025 Radiology Diagnostic study note [facility] Imaging Services [address] [place], [place] [address] Chest PA and Lateral MR#: [id number] Acct: [id number] Name: DIANE CONNORS Rep #: [id number] : 1985 M 39 From: Lily Holt MD PCP: AGUILAR Giles Status: REG E R Study:Chest PA and Lateral Date of Exam: 12/14/24 Exam# [id number] Ordering Dr: Chela Barrera DO PROCEDURE: CHEST [...] 2. Additional description as above. Reading Location: [facility] CC: AGUILAR Arias; Dr. Petar Barrera DO ~ Critical Power Install Technician: Signed [facility]03-17-2025 Radiology Diagnostic study note [facility] Imaging Services [address] [place] [address] 716571 Abdomen/Pelvis W IV Cont ONLY MR#: [id number] Acct: [id number] Name: DIANE CONNORS Rep #: [id number] : 1985 M 39 From: Franco Soto MD PCP: AGUILAR Giles Status: PRE E R Study:Abdomen/Pelvis W IV Cont ONLY Date of E xam: 12/14/24 Exam# [id number] Ordering Dr: Chela Barrera DO PROCEDURE: ABDOMEN/PELVIS [...] the head of the pancreas. Reading Location: [place] [address] CC: AGUILAR Arias; Dr. Petar Barrera, Critical Power Install Technician: Signed [facility]03-14-2025 Consult note [facility] Medical Records Department [address] [place] [address] Anesthesia Postop Eval II 12/11/24 1520 MR#: [id number] Acct: [id number] Name: DIANE CONNORS Rep #:[id number] : 1985 39 From: Rafael Hooper MD PCP: AGUILAR Giles Status:REG S DC Y Race: C Location: [place] [address] Anesthesia Postop Eval I Sum Postop Eval [...] No 12/11/24 1520 > Date _ Rafael Marrero Signature: Date CC: ~ Signed [facility]03-14-2025 Radiology Diagnostic study note [facility] Imaging Services [address] [place] [address] 949761 ERCP Biliary/Pancreas MR#: [id number] Acct: [id number] Name: DOROTHY CONNORSNereida Norwood Rep #: [id number] : 1985 M 39 From: Franco Soto MD PCP: AGUILAR Giles Status: REG S DC Study:ERCP Biliary/Pancreas Date of Exam: 12/11/24 Exam# [id number] Ordering Dr: Kayleigh Babin DO PROCEDURE: ERCP BILIARY/PANCREAS REASON FOR EXAM: ERCP TECHNIQUE: An ERCP was performed by the passenger solicitor. Fluoroscopic services were provided. COMPARISON: None. FINDINGS: A stent is seen on the original images. Following this, there is cannulation ofthe common bile duct. Contrast was injected. No filling defect is seen. RAD/ERCP Biliary/Pancreas IMPRESSION: Biliary stent removal. Reading Location: [place] [address] CC: AGUILAR Arias; Denys Friend, DO ~ Critical Power Install Technician: Signed [facility]03-14-2025 Consult note Author Rafael Hooper [facility] Note Date/Time December 11, 2024 1:0 0pm [facility] Medical Records Department [address] [place] [address] Pre-Anesthesia Evaluation 12/11/24 1259 MR#: [id number] Acct: [id number] Name: DIANE CONNORS Rep #:[id number] : 1985 39 From: Rafeal Hooper MD PCP: AGUILAR Giles Status:REG S DC Y Race: C Location: [place] [address] ASA Classification* ASA Classification ASA Classification: 2 [...] Procedure(s): ERCP 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 History - immigration attorney: Anesthesia History - immigration attorney Hx Hospitalization Yes: 08/2024 ERCP 12/09/24 10:19 [...] take am of surgery PONV PONV - immigration attorney: PONV - immigration attorney Female No 12/09/24 10:19 HX of Motion [...] 09/11/24 08:02 Respiratory Assessment Respiratory Assessment - immigration attorney: Respiratory Tract Infection Hx - immigration attorney Hx Respiratory Tract Infection No 12/09/24 10:19 STOP Sleep Apnea STOP Sleep Apnea - immigration attorney: STOP Sleep Apnea - immigration attorney Hx Hypertension No 12/09/24 10:19 Hx Sleep [...] Tobacco Use History Tobacco Use History - immigration attorney: Tobacco Use History - immigration attorney Tobacco Use Smoking Status Never smoker 12/09/24 10:19 Hx Tobacco Use No 12/09/24 10:19 Years Smoking Packs Smoked per Day Smoking Cessation Date was within the last 15 years Hx Smoking Cessation Date Hx Smoking Cessation Counseling Hematologic Medial History Hematologic Hx - immigration attorney: 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 Hx of Blood Transfusion No 12/09/24 10:19 [...] confused, unrespo /Reproduction History /Reproductive History - immigration attorney: /Reproductive Hx- immigration attorney Hx Now No 12/09/24 10:19 Gestational Age [...] MD Cosign Signature: Date CC: ~ Signed [facility] Work Phone: 1(475) 621-132003-14-2025 History and physical note Author Denys Babin [facility] Note Date/Time December 11, 2024 12: 52pm [facility] Medical Records Department [address] [place] [address] History & Physical Exam 12/11/24 1250 MR#: [id number] Acct: [id number] Name: DIANE CONNORS Rep #:[id number] : 1985 39 From: Denys Babin DO PCP: AGUILAR Giles Status:REG S DC Location: [place] [address] HPI - General General Date of Admission: 12/11/24 Date of Service: 12/11/24 Chief Complaint: stent removal HPI Narrative DIANE CONNORS, is a 39 M who presents for biliary stent removal. [facility] inpatient 12.6.24-12.9.24- Choledocholithiasis with severe jaundice, small gall stone removed from bile duct. MRCP only found cholelithiasis and a biliary stent in place. Pt was referred to general surgery for poss. cholecystectomy. Ptstates he is well since the hospital visit. Is not having any abdominal pain, loss of appetite, fatigue or changes in bowels. [facility] Medical History Overweight (BMI 25.0-29.9) No pertinent [...] CC: AGUILAR Arias; Denys Babin DO~ Signed [facility] Work Phone: 1(998) 365-154403-14-2025 Evaluation note* Diagnosis Onset Date Resolution Status [...] 2024 10:55am Jaundice acute December 31 10:55am [facility] Work Phone: 1(998) 174-992803-14-2025 Evaluation note* Diagnosis Onset Date Resolution Status [...] laparoscopic cholecystectomy acute March 17, 2025 3:40pm [facility] Work Phone: 1(715) 318-980203-14-2025 Evaluation note* Diagnosis Onset Date Resolution Status [...] laparoscopic cholecystectomy acute March 25, 2025 1:05pm [facility] [employer] [facility] Work Phone: 1(452) 763-497303-14-2025 Evaluation note* Diagnosis Onset Date Resolution Status [...] laparoscopic cholecystectomy acute March 25, 2025 1:05pm [facility] [employer] Work Phone: 1(717) 437-300603-14-2025 Evaluation note* Diagnosis Onset Date Resolution Status [...] March 25, 2025 1:05pm Cholecystitis acute March 31 025 1:58pm Status post laparoscopic cholecystectomy acute March 31, 2025 1:58pm [facility] Work Phone: 1(470) 528-520703-14-2025 Consult note [facility] Medical Records Department [address] [place] [address] Anesthesia Postop Eval I 12/11/241425 MR#: [id number] Acct: [id number] Name: DIANE CONNORS Rep #:[id number] : 1985 39 From: Hipolito Rasheed PCP: AGUILAR Giles Status:REG S DC Y Race: C Location: [place] [address] Anesthesia: Postop Eval I Current Vital Signs [...] Hipolito Marrero Signature: Date CC: ~ Signed [facility]03-14-2025 Procedure note [facility] Medical Records Department [address] [facility] [place] [address] ERCP Report MR#: [id number] Acct: [id number] Name: DIANE CONNORS Rep #:[id number] : 1985 39 From: Denys Babin DO PCP: Shira Lorson, HAND PAINT MIXER-C Status:REG S DC Patient Name: Diane Connors [...] hours 15 minutes 9 seconds Findings: The pocketed spring machine operator film was normal. The esophagus was successfully [...] Recommendation: Cholecystectomy Procedure Code(s): --- Professional --- 92573, Endoscopic retrograde cholangiopancreatography (ERCP); with removal of foreign body(s) or stent(s) from biliary/pancreatic duct(s) 33222, Endoscopic retrograde cholangiopancreatography (ERCP); with removal of calculi/debris from biliary/pancreatic duct(s) 90789, Endoscopic retrograde cholangiopancreatography (ERCP); with sphincterotomy/papillotomy 27277, 26, Endoscopic catheterization of the biliary ductal system, radiological supervision and interpretation CPT copyright 2021 [employer]. All rights reserved. The codes documented in this report are preliminary and upon cash applications coordinator review may be revised to meet current compliance requirements. Denys Babin DO 12/11/2024 2:18:31 PM This report has been signed electronically. Number of Addenda: 0 Note Initiated On: 12/11/2024 1:30 PM 12/11/24 1418 Date _ Denys Babin DO Cosigner Signature: Date (if indicated) CC: AGUILAR Arias; Denys Babin DO ~ Date Dictated: 12/11/24 1330 Date Transcribed: Critical Power Install Technician: RF Signed [facility]03-14-2025 Procedure note [facility] Medical Records Department [address] [place] [address] Operative Report - CC Letter MR#: [id number] Acct: [id number] Name: DIANE CONNORS Rep #:[id number] : 1985 39 From: Denys Babin DO [...] ~ Date Dictated: 12/11/24 1330 Date Transcribed: Critical Power Install Technician: RF Signed [facility]03-14-2025 Consult note [facility] Medical Records Department [address] [place] [address] Pre-Anesthesia Evaluation 12/11/24 1259 MR#: [id number] Acct: [id number] Name: DIANE CONNORS Rep #:[id number] : 1985 39 From: Rafael Hooper MD PCP: AGUILAR Giles Status:REG S DC Y Race: C Location: [place] [address] ASA Classification* ASA Classification ASA Classification: 2 [...] Procedure(s): ERCP 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 History - immigration attorney: Anesthesia History - immigration attorney Hx Hospitalization Yes: 08/2024 ERCP 12/09/24 10:19 [...] take am of surgery PONV PONV - immigration attorney: PONV - immigration attorney Female No 12/09/24 10:19 HX of Motion [...] 09/11/24 08:02 Respiratory Assessment Respiratory Assessment - immigration attorney: Respiratory Tract Infection Hx - immigration attorney Hx Respiratory Tract Infection No 12/09/24 10:19 STOP Sleep Apnea STOP Sleep Apnea - immigration attorney: STOP Sleep Apnea - immigration attorney Hx Hypertension No 12/09/24 10:19 Hx Sleep [...] Tobacco Use History Tobacco Use History - immigration attorney: Tobacco Use History - immigration attorney Tobacco Use Smoking Status Never smoker 12/09/24 10:19 Hx Tobacco Use No 12/09/24 10:19 Years Smoking Packs Smoked per Day Smoking Cessation Date was within the last 15 years Hx Smoking Cessation Date Hx Smoking Cessation Counseling Hematologic Medial History Hematologic Hx - immigration attorney: 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 Hx of Blood Transfusion No 12/09/24 10:19 [...] confused, unrespo /Reproduction History /Reproductive History - immigration attorney: /Reproductive Hx- immigration attorney Hx Now No 12/09/24 10:19 Gestational Age (in weeks): EDC: Hx Hx Para Hx Section SAB No 12/09/24 10:19 [facility] Medical History Overweight (BMI 25.0-29.9) No pertinent [...] Rafael Marrero Signature: Date CC: ~ Signed [facility]03-14-2025 History and physical note [facility] Medical Records Department [address] [place] [address] History & Physical Exam 12/11/24 1250 MR#: [id number] Acct: [id number] Name: DIANE CONNORS Rep #:[id number] : 1985 39 From: Denys Babin DO PCP: ROLY GilesC Status:REG S DC Location: [place] [address] HPI - General General Date of Admission: 12/11/24 Date of Service: 12/11/24 Chief Complaint: stent removal HPI Narrative DIANE CONNORS, is a 39 M who presents for biliary stent removal. [facility] inpatient 12.03.23-24- Choledocholithiasis with severe jaundice, small gall stone removed from bile duct. MRCP only found cholelithiasis and a biliary stent in place. Pt was referred to general surgery for poss. cholecystectomy. Ptstates he is well since the hospital visit. Is not having any abdominal pain, loss of appetite, fatigue or changes in bowels. [facility] Medical History Overweight (BMI 25.0-29.9) No pertinent [...] CC: AGUILAR Arias; Denys Friend, DO~ Signed [facility]03-14-[address] [facility]12-09-[address] [facility]12-06-2024 Evaluation note* Diagnosis Onset Date Resolution [...] 2024 12:28pm Jaundice acute December 11 12:28pm [facility] Work Phone: 1(625) 391-789612-06-2024 Evaluation note* Diagnosis Onset Date Resolution Status Admit Date Hyperbilirubinemia acute Decemb er 2023 9:07pm Jaundice acute 2024 9:07pm Choledocholithiasis resolved Dece2023 9:07pm Overweight (BMI 25.0-29.9) inactive 2024 9:07pm Drug-induced liver injury acute September 11, 2024 7:58am Hyperbilirubinemia acute Decemb er 2023 7:58am Choledocholithiasis resolved Decem 2023 7:58am Cholelithiases acute November 12:28pm Hyperbilirubinemia acute December 11, 2024 12:28pm Jaundice acute December 11 12:28pm Elevation of levels of liver transaminase levels acute March 17th, 2025 2:45pm Hyperbilirubinemia acute December 14, 2024 2:45pm [facility] Work Phone: 1(444) 337-497712-06-2024 Evaluation note* Diagnosis Onset Date Resolution Status Admit Date Hyperbilirubinemia acute [facility] er 2023 9:07pm Jaundice acute 2024 9:07pm Choledocholithiasis resolved Dece 2023 9:07pm Overweight (BMI 25.0-29.9) inactive 2024 9:07pm Drug-induced liver injury acute September 11, 2024 7:58am Hyperbilirubinemia acute Dece er 2023 7:58am Choledocholithiasis resolved Decem jose 2023 7:58am Cholelithiases acute November 12:28pm Hyperbilirubinemia acute December 11, 2024 12:28pm Jaundice acute December 11 12:28pm Bacteremia due to Gram-negat daniele bacteria acute December 14, 2024 2:45pm Elevation of levels of liver transaminase levels acute December 14, 2024 2:45pm Hyperbilirubinemia acute December 14, 2024 2:45pm Choledocholithiasis resolved December 14, 2024 2:45pm [facility] Work Phone: 1(885) 542-522012-06-2024 Evaluation note* Diagnosis Onset Date Resolution Status Admit Date Jaundice acute 2024 9:07pm Choledocholithiasis resolved Dece 2023 9:07pm Hyperbilirubinemia inactive [facility] er 2023 9:07pm Overweight (BMI 25.0-29.9) inactive 2024 9:07pm Drug-induced liver injury acute September 11, 2024 7:58am Choledocholithiasis resolved Dece jose 2023 7:58am Hyperbilirubinemia inactive [facility] er 2023 7:58am Cholelithiases acute November 12:28pm [...] 2024 10:55am Jaundice acute December 31 10:55am [facility] Work Phone: 1(301) 746-384312-06-2024 Consult note Author Rafael Hooper [facility] Note Date/Time December 11, 2024 4:1 0pm [facility] Medical Records Department [address] [place] [address] Anesthesia Postop Eval II 12/11/24 1520 MR#: [id number] Acct: [id number] Name: DIANE CONNORS Rep #:[id number] : 1985 39 From: Rafael Hooper MD PCP: AGUILAR Giles Status:REG S DC Y Race: C Location: [place] [address] Anesthesia Postop Eval I Sum Postop Eval [...] Rafael Hooper MD > Date _ Rafael Marrero Signature: Date CC: ~ Signed [facility] Work Phone: 1(547) 328-382611-13-2024 Note ORIGINAL EXAMINATION: LIMITED ABDOMINAL VYFYQWYWOA36/13/2024 8:11 am Limited ultrasound of the abdomen [...] Sign Date: 08/12/2024 9:46:00 AM Ordering Provider: [facility]11-06-2024 Evaluation + Plan note Future Scheduled Tests Laboratory* Amylase Level 08/05/24 * Lipase Level 08/05/24 * Complete Blood Count 08/05/24 * Lipid Profile 01/29/24 * Complete Metabolic Panel 08/05/24 * Complete Metabolic Panel 01/29/24 Radiology* US Abdomen Limited 08/10/24 [facility] 09-10-2024 Note ORIGINAL EXAMINATION: CT OF THE [...] Date: 06/09/2024 12:42:25 PM [facility] Note ORIGINAL EXAMINATION: ULTRASOUND OF THE SCROTUM/TESTICLES [...] Date: 03/27/2024 3:12:22 PM Ordering [facility] Evaluation + Plan note Future Scheduled Tests Laboratory* Lipid Profile 01/29/24 * Complete Metabolic Panel 01/29/24 [facility] 05-01-2024 Evaluation + Plan note Future Scheduled Tests Laboratory* Lipid Profile 01/29/24 * Complete Metabolic Panel 01/29/24 Radiology* US Pelvis Non-OB Complete 06/11/24 [facility] Consult note Author Hipolito Rasheed [facility] Note Date/Time December 11, 2024 2:2 7pm [facility] Medical Records Department [address] [place] [address] [place] [address] Anesthesia Postop Eval I 12/11/24 1426 MR#: [id number] Acct: [id number] Name: DIANE CONNORS Rep #:[id number] : 1985 39 From: Hipolito Rasheed PCP: AGUILAR Giles Status:REG S DC Y Race: C Location: [place] [address] Anesthesia: Postop Eval I Current Vital Signs [...] document: Postop Eval 1 completed: Yes 12/11/24 7310 <Electronically signed by Hipolito Rasheed > Date _ Hipolito Rasheed Cosigner Signature: Date CC: ~ Signed [facility] Work Phone: Consult note Author [facility] Note Date/Time December 16, 2024 4:1 7pm [facility] Medical Records Department [address] [place] [address] Consultation - Infectious Dx 12/16/24 1613 MR#: [id number] Acct: [id number] Name: DIANE CONNORS Rep #:[id number] : 1985 39 From: Jared melendrez MD PCP: AGUILAR Giles Status:ADM I N Location: [place] [address] Assessment & Plan Assessment/Plan (1) Bacteremia due [...] performed and neg except as noted above. [facility] Medical History Overweight (BMI 25.0-29.9) No pertinent [...] % (Auto) 61.0, Lymph % (Auto) 20.8, [place] % (Auto) 13.5 H, Eos % (Auto) [...] Left Blood Culture - Preliminary GNR lactose website/blog editor 12/14/24 12:25 Blood Culture (Wb) - Anticubital Left Blood Culture - Preliminary GNR lactose website/blog editor Alpha Hemolytic Streptococcus Imaging Radiology Impression Endo Retro Cholangiopancreatogram 12/15/24 17:35 IMPRESSION: Fluoroscopy during ERCP as above. Reading Location: [facility] 12/16/24 4596 <Electronically signed by Jared Arevalo MD> Cosigner Signature (if applicable): CC: AGUILAR Arias~ Signed [facility] Work Phone: Consult note Author Hipolito Rasheed [facility] Note Date/Time May 03, 2025 1:4 2pm [facility] Medical Records Department [address] [place] [address] Anesthesia Postop Eval I 05/03/25 1341 MR#: [id number] Acct: [id number] Name: DIANE CONNORS Rep #:[id number] : 1985 39 From: Hipolito Rasheed PCP: AGUILAR Giles Status:REG S DC Y Race: C Location: [place] [address] Anesthesia: Postop Eval I Current Vital Signs [...] by Hipolito Rasheed > Date _ Hipolito Levineignel Signature: Date CC: ~ Signed [facility] Work Phone: Consult note Author Rafael kaity [facility] Note Date/Time May 03, 2025 2:0 3pm [facility] Medical Records Department [address] [place] [address] Anesthesia Postop Eval II 05/03/25 1349 MR#: [id number] Acct: [id number] Name: DIANE CONNORS Rep #:[id number] : 1985 39 From: Rafael Hooper MD PCP: AGUILAR Giles Status:REG S DC Y Race: C Location: [place] [address] Anesthesia Postop Eval I Sum Postop Eval [...] MD Cosigner Signature: Date CC: ~ Signed [facility] Work Phone: Discharge summary Author Veronica [facility] Note Date/Time May 07, 2025 2:1 0pm [facility] Medical Records Department [address] [place] [address] Instructions for Home/Discharge Instructions 05/07/25 1327 MR#: [id number] Acct: [id number] Name: DIANE CONNORS Rep #:[id number] : 1985 39 From: Veronica Flores MD PCP: AGUILAR Giles Status:ADM I N Discharge Instructions DC O2, CPAP, BIPAP needs Home O2 Discharge instructions: No Dressing / Incision Discharge Activity: Return to Normal Activity Weight Bearing Status: Weight bearing as tolerated Dressing / Incision Call your doctor if you observe: Fever of 101 or Higher and Uncontrolled pain Follow Up Care Test Results: Test results from this visit will be discussed in further detail at your follow- up appointment, if applicable. Discharge Plan Admission Admit Date/Time: 05/05/25 01:52 Primary Reason for Your Visit: acute choledocholithiasis Attending Provider: Veronica Flores Primary Care Provider: Shira Arias NP Consulting Providers: Khang Lopez; Eileen Brunson; Jared Arevalo Instructions Patient Instructions: ERCP Dc Discharge Orders/Prescriptions Prescriptions: New amoxicillin-pot clavulanate 875-125 mg tablet 1 tab PO BID Qty: 14 0RF Referrals / Follow Up: Denys Babin DO [Med Staff - Active Staff] - Within 1 Week Shira Arias HAND PAINT MIXER, HAND PAINT MIXER-C [Primary Care Provider] - Within 1 Week Disposition Disposition (needs filled in before D/C Order can be placed): Home, Self Care 05/07/25 1327<Electronically signed by Veronica Flores MD>Veronica Flores MD CC: ELLI-C Shira Arias; Dr. Khang Lopez MD; Dr. Eileen Brunson MD; Dr. Jared Arevalo MD ~ Signed [facility] Work Phone: Evaluation + Plan note Future Appointments Appointment Date:06/11/2024 09:00:00 AM Scheduled Provider:CAYLA HOOPER Location:UROLOGY Appointment Type:URO OV Future Scheduled Tests Laboratory* Lipid Profile 01/29/24 * Complete Metabolic Panel 01/29/24 [facility] History and physical note [facility] Note Date/Time December 14, 2024 3:1 2pm [facility] Medical Records Department [address] [place] [address] H&P Exam - Hospitalist 12/14/24 1445 MR#: [id number] Acct: [id number] Name: DIANE CONNORS Rep #:[id number] : 1985 39 From: Cruz esposito DO PCP: AGUILAR Giles Status:REG E R Location: ED HPI - General General Date of Admission: 12/14/24 Date of Service: 12/14/24 Chief Complaint: Fevers and chills HPI Narrative DIANE CONNORS, is a 39 M who presented to [facility] ED on 12/14/2024 with fevers [...] any other acute concerns at this time. [facility] Medical History Overweight (BMI 25.0-29.9) No pertinent [...] 90.5 H, Lymph % (Auto) 3.2 L, [place] % (Auto) 4.7, Eos % (Auto) 0.1, [...] Clarity Clear, Urine pH 7.0, Ur Specific [place] 1.005, Urine Protein 30 H, Urine Glucose [...] the head of the pancreas. Reading Location: [facility] Chest X-Ray 12/14/24 12:19 IMPRESSION: 1. Mild left basilar airspace disease favorable for atelectasis/scarring howeverthis is not definite in the absence of prior exams to confirm stability. Correlate for mild pneumonia. 2. Additional description as above. Reading Location: [facility] Assessment & Plan Assessment/Plan (1) Hyperbilirubinemia: (2) Elevation of levels of liver transaminase levels: PLAN: Plan Patient is a 39-year-old male who presented to [facility] ED on 12/14/2024 with fevers and chills after recent ERCP. 1. 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 Admit under inpatient status to [facility]. GI consulted. See HPI for further details [...] 55 minutes. Charges/Coding Visit Charges Inpatient E&M: 97218 Init Hosp L2 12/14/24 1512 <Electronically signed by Cruz Arciniega DO> Cosigner Signature (if applicable): CC: AGUILAR Arias; Dr. Cruz Arciniega DO~ Signed [facility] Work Phone: History and physical note Author Denys Friend [facility] Note Date/Time May 03, 2025 12: 49pm [facility] Medical Records Department [address] [place] [address] History & Physical Exam 05/03/25 1247 MR#: [id number] Acct: [id number] Name: DIANE CONNORS Rep #:[id number] : 1985 39 From: Denys Babin DO PCP: AGUILAR Giles Status:REG S DC Location: [place] [address] HPI - General General Date of Admission: 05/03/25 Date of Service: 05/03/25 Chief Complaint: Biliary stent removal HPI Narrative DIANE CONNORS, is a 39 M who presents today for ERCP with stent removal. Patient recently underwent ERCP with stone removal and stent placement. Last month he underwent elective cholecystectomy. Patient is doing well after procedure. He comes back in for stent removal. [facility] Medical History Bacteremia due to Gram-negative bacteria [...] is a 39-year-old male who presented to [facility] ED on 12/14/2024 with fevers [...] CC: AGUILAR Arias; Denys Babin DO~ Signed [facility] Work Phone: History and physical note Author Eileen Brunson [facility] Note Date/Time May 05, 2025 2:0 9am [facility] Medical Records Department [address] [place] [address] H&P Exam - Hospitalist 05/05/25 0150 MR#: [id number] Acct: [id number] Name: DIANE CONNORS Rep #:[id number] : 1985 39 From: Eileen Brunson MD [...] drain placement who now re-presents to the [facility] ED on 05/05/25 with history of [...] air, CBC with WC 9.6, hemoglobin 15.5, [id number] with left shift and lymphopenia, CMP with [...] prior partial cholecystectomy were an expected finding. [facility] Medical History Bacteremia due to Gram-negative bacteria [...] 91.5 H, Lymph % (Auto) 3.4 L, [place] %(Auto) 4.1, Eos % (Auto) 0.0, Baso [...] up imaging as clinically determined. Reading Location: [place] [address] Assessment & Plan Assessment/Plan (1) Choledocholithiasis with [...] drain placement who now re-presents to the [facility] ED on 05/05/25 with history of [...] planned intervention. Charges/Coding Visit Charges Inpatient E&M: 33064 Init Hosp L2 05/05/25 0209 <Electronically signed by Eileen Brunson MD> Cosigner Signature (if applicable): CC: AGUILAR Arias; Dr. Eileen Brunson MD~ Signed [facility] Work Phone: Hospital course Narrative No data available for this section [facility] Discharge instructions No data available for this section [facility] Progress note No data available for this section [facility] Reason for referral (narrative)No reason for referral information availableWMer[facility] Work Phone: Summary Purpose Family History No Family History Records Found Advance Directives No Advanced Directives Records Found Advance Directive Response Recorded Date/ Time Living Will Yes December 09, 2024 10:19am Power of Mixer Tender Yes December 09 10:19am Name of Medical Power of Mixer Tender OLGA December 09, 2024 10:19am Living Will No September 04 10:48pm Power of Mixer Tender No 2024 10:48pm Advance Directive Response Recorded Date/ Time Living Will Yes December 09, 2024 10:19am Power of Mixer Tender Yes December 09 10:19am Name of Medical Power of Mixer Tender OLGA December 09, 2024 10:19am Living Will No December 14, 2024 11:02am Power of Mixer Tender No December 14 11:02am Living Will No September 04 10:48pm Power of Mixer Tender No 2024 10:48pm Advance Directive Response Recorded Date/ Time Living Will Yes December 09, 2024 10:19am Do you have a Healthcare Power of Mixer Tender? Yes December 09, 2024 10:19am Name of Medical Power of Mixer Tender OLGA December 09, 2024 10:19am Living Will Yes December 14, 2024 4:44pm Do you have a Healthcare Power of Mixer Tender? Yes December 14, 2024 4:44pm Name of Medical Power of Mixer Tender Olga Connors December 14, 2024 4:44pm Living Will No September 04 10:48pm Do you have a Healthcare Power of Mixer Tender? No 2024 10:48pm Advance Directive Response Recorded Date/ Time Living Will Yes December 09, 2024 10:19am Do you have a Healthcare Power of Mixer Tender? Yes December 09, 2024 10:19am Name of Medical Power of Mixer Tender OLGA December 09, 2024 10:19am Living Will Yes December 14, 2024 4:44pm Do you have a Healthcare Power of Mixer Tender? Yes December 14, 2024 4:44pm Name of Medical Power of Mixer Tender Olga Connors December 14, 2024 4:44pm Advance Directive Response Recorded Date/ Time Living Will Yes December 09, 2024 10:19am Do you have a Healthcare Power of Mixer Tender? Yes December 09, 2024 10:19am Name of Medical Power of Mixer Tender OLGA December 09, 2024 10:19am Living Will Yes December 14, 2024 4:44pm Do you have a Healthcare Power of Mixer Tender? Yes December 14, 2024 4:44pm Name of Medical Power of Mixer Tender Olga Connors December 14, 2024 4:44pm Do you have a Healthcare Power of Mixer Tender? No March 17, 2025 8:10pm Advance Directive Response Recorded Date/ Time Do you have a Healthcare Power of Mixer Tender? No March 17, 2025 8:10pm Do you have a Healthcare Power of Mixer Tender? No April 27, 2025 3:02pm Advance Directive Response Recorded Date/ Time Do you have a Healthcare Power of Mixer Tender? No March 17, 2025 8:10pm Do you have a Healthcare Power of Mixer Tender? No April 27, 2025 3:02pm Do you have a Healthcare Power of Mixer Tender? Yes May 05, 2025 1:16am Advance Directive Response Recorded Date/ Time Do you have a Healthcare Power of Mixer Tender? No March 17, 2025 8:10pm Do you have a Healthcare Power of Mixer Tender? No April 27, 2025 3:02pm Do you have a Healthcare Power of Mixer Tender? No May 05, 2025 2:26am Chief Complaint and Reason for Visit Chief Complaint Admit Date CHOLEDOCHLITHIASIS WITH SEVERE JAUNDICE 2024 9:07pm CHOLEDOCHLITHIASIS WITH SEVERE JAUNDICE 2024 10:03pm ERCP PROTOTCOL September 05, 2024 1 1:11am CHOLEDOCHLITHIASIS WITH SEVERE JAUNDICE September 05, 2024 11:36am CHOLEDOCHLITHIASIS WITH SEVERE JAUNDICE September 06, 2024 12:07pm CHOLEDOCHLITHIASIS WITH SEVERE JAUNDICE September 07, 2024 8:33am CHOLEDOCHLITHIASIS WITH SEVERE JAUNDICE September 07, 2024 11:32am [facility] Jaundice August 7:58am INT LABS September [...] FEVERS December 16, 2024 2: 13pm GALLBLADDER, [facility] FU December 31, 2024 9:50 am [facility] December 31, 2024 10:5 5am INT [...] FEVERS December 16, 2024 2: 13pm GALLBLADDER, [facility] FU December 31, 2024 9:50 am [...] [facility] FU December 31, 2024 9:50 am [facility] December 31, 2024 10:5 5am INT [...] FEVERS December 16, 2024 2: 13pm GALLBLADDER, [facility] FU December 31, 2024 9:50 am [...] acute cholecyst itis May 05, 2025 2:14am Chief Complaint Admit Date Calculus of gallbladder with acute dexter cystitis [...] m fever May 05, 2025 1:5 0am ACUTE CHOLEDOCHOLITHIASIS W/ACUTE CHOLEY CYSTITIS May 05, 2025 1:52am ACUTE CHOLEDOCHOLITHIASIS W/ACUTE CHOLEY CYSTITIS May 05, 2025 8:47am ACUTE CHOLEDOCHOLITHIASIS W/ACUTE CHOLEY CYSTITIS May 05, 2025 8:57am ACUTE CHOLEDOCHOLITHIASIS W/ACUTE CHOLEY CYSTITIS May 06, 2025 12:32pm ACUTE CHOLEDOCHOLITHIASIS W/ACUTE CHOLEY CYSTITIS May 06, 2025 4:34pm Reason for Visit Admit Date Status post laparoscopic cholecystectomy March 17, 2025 3:40pm Status post laparoscopic cholecystectomy March 25, 2025 1:05pm Cholecystitis March 31, 2025 1:58p m Status post laparoscopic cholecystectomy March 31, 2025 1:58pm Status post laparoscopic cholecystectomy April 07, 2025 2:29pm Elevation of levels of liver transaminas e levels May 03, 2025 11:31am Hyperbilirubinemia May 03, 2025 11: 31am Bacteremia due to Gram-negative bacteria May 05, 2025 1:52am Cholangitis May 05, 2025 1:5 2am Choledocholithiasis with acute cholecyst itis May 05, 2025 1:52am Elevated liver enzymes May 05, 2025 1:52am Epigastric abdominal pain May 05 1:52am Pyrexia May 05, 2025 1:5 2am Status post endoscopic retrograde cholan giopancreatography May 05, 2025 1:52am Elevation of levels of liver transaminas e levels May 05, 2025 1:52am Hyperbilirubinemia May 05, 2025 1:5 2am Chief Complaint Admit Date Calculus of gallbladder with acute dexter cystitis [...] [employer] April 07, 2025 2:29p m PREOP May 03, 2025 11: 42am fever May 05, 2025 1:5 0am ACUTE CHOLEDOCHOLITHIASIS W/ACUTE CHOLEY CYSTITIS May 05, 2025 1:52am ACUTE CHOLEDOCHOLITHIASIS W/ACUTE CHOLEY CYSTITIS May 05, 2025 8:47am ACUTE CHOLEDOCHOLITHIASIS W/ACUTE CHOLEY CYSTITIS May 05, 2025 8:57am ACUTE CHOLEDOCHOLITHIASIS W/ACUTE CHOLEY CYSTITIS May 06, 2025 12:32pm ACUTE CHOLEDOCHOLITHIASIS W/ACUTE CHOLEY CYSTITIS May 06, 2025 4:34pm ACUTE CHOLEDOCHOLITHIASIS W/ACUTE CHOLEY CYSTITIS May 07, 2025 1:28pm ACUTE CHOLEDOCHOLITHIASIS W/ACUTE CHOLEY CYSTITIS May 07, 2025 7:03pm Test Result May 17, 2025 9: 01am Reason for Visit Admit Date Status post laparoscopic cholecystectomy March 17, 2025 3:40pm Status post laparoscopic cholecystectomy March 25, 2025 1:05pm Cholecystitis March 31, 2025 1:58p m Status post laparoscopic cholecystectomy March 31, 2025 1:58pm Status post laparoscopic cholecystectomy April 07, 2025 2:29pm Elevation of levels of liver transaminas e levels May 03, 2025 11:31am Hyperbilirubinemia May 03, 2025 11: 31am Bacteremia due to Gram-negative bacteria May 05, 2025 1:52am Cholangitis May 05, 2025 1:5 2am Choledocholithiasis with acute cholecyst itis May 05, 2025 1:52am Elevated liver enzymes May 05, 2025 1:52am Epigastric abdominal pain May 05 1:52am Pyrexia May 05, 2025 1:5 2am Elevation of levels of liver transaminas e levels May 05, 2025 1:52am Hyperbilirubinemia May 05, 2025 1:5 2am Status post endoscopic retrograde cholan giopancreatography May 05, 2025 1:52am Transaminitis May 17, 2025 9: 01am Chief Complaint Admit Date Calculus of gallbladder with acute dexter cystitis [...] [employer] April 07, 2025 2:29p m PREOP May 03, 2025 11: 42am fever May 05, 2025 1:5 0am ACUTE CHOLEDOCHOLITHIASIS W/ACUTE CHOLEY CYSTITIS May 05, 2025 1:52am ACUTE CHOLEDOCHOLITHIASIS W/ACUTE CHOLEY CYSTITIS May 05, 2025 8:47am ACUTE CHOLEDOCHOLITHIASIS W/ACUTE CHOLEY CYSTITIS May 05, 2025 8:57am ACUTE CHOLEDOCHOLITHIASIS W/ACUTE CHOLEY CYSTITIS May 06, 2025 12:32pm ACUTE CHOLEDOCHOLITHIASIS W/ACUTE CHOLEY CYSTITIS May 06, 2025 4:34pm ACUTE CHOLEDOCHOLITHIASIS W/ACUTE CHOLEY CYSTITIS May 07, 2025 1:28pm ACUTE CHOLEDOCHOLITHIASIS W/ACUTE CHOLEY CYSTITIS May 07, 2025 7:03pm Test Result May 17, 2025 9: 01am EORDER May 17, 2025 9: 47am Additional Source Comments Patient Care team informatio n (unrecognized section and content) Team Status: Active Member Role Status Dates Shira Arias HAND PAINT MIXER, HAND PAINT MIXER-C Primary Care Provider Active Team Status: Active Member Role Status Dates Shira Arias HAND PAINT MIXER, HAND PAINT MIXER-C Primary Care Provider Active Start: December 11, 2024 Dr. Pedro Lopez MD Attending Provider Active Start: December 11, 2024 Dr. Pedro Lopez MD Referring Provider Active Start: December 11, 2024 Team Status: Inactive Member Role Status Dates Shira Arias NP, HAND PAINT MIXER-C Primary Care Provider Active Start: December 11, 2024 End: December 11, 2024 Shira Arias NP, HAND PAINT MIXER-C Referring Provider Active Start: December 11, 2024 End: December 11, 2024 Dr. Denys Babin DO Attending Provider Active Start: December 11, 2024 End: December 11, 2024 Team Status: Active Member Role Status Dates Shira Arias NP, HAND PAINT MIXER-C Primary Care Provider Active Start: December 11, 2024 Shira Arias NP, HAND PAINT MIXER-C Referring Provider Active Start: December 11, 2024 Dr. Denys Babin DO Attending Provider Active Start: December 11, 2024 Dr. Denys Babin DO Other Provider Active St art: December 11, 2024 Team Status: Active Member Role Status Dates Shira Arias NP, HAND PAINT MIXER-C Primary Care Provider Active Start: December 11, 2024 End: December 11, 2024 Dr. Jose Lubin MD Attending Provider Active S tart: December 11, 2024 End: December 11, 2024 Dr. Denys Babin DO Referring Provider Active Start: December 11, 2024 End: December 11, 2024 Team Status: Inactive Member Role Status Dates Shira Arias NP, HAND PAINT MIXER-C Primary Care Provider Active Start: December 14, [...] Member Role Status Dates Shira Arias NP, HAND PAINT MIXER-C Primary Care Provider Active Start: December 15, [...] Member Role Status Dates Shira Arias NP, HAND PAINT MIXER-C Primary Care Provider Active Start: December 15, [...] Active Member Role Status Dates Shira Arias HAND PAINT MIXER, HAND PAINT MIXER-C Primary Care Provider Active Start: December 16, [...] Active Member Role Status Dates Shira Arias HAND PAINT MIXER, HAND PAINT MIXER-C Primary Care Provider Active Start: December 16, [...] Inactive Member Role Status Dates Shira Arias HAND PAINT MIXER, HAND PAINT MIXER-C Primary Care Provider Active Start: December 31, 2024 End: December 31, 2024 Shira Arias HAND PAINT MIXER, HAND PAINT MIXER-C Referring Provider Active Start: December 31, 2024 End: December 31, 2024 Dr. Camron Shoemaker MD Attending Provider Active Start: December 31, 2024 End: December 31, 2024 Team Status: Inactive Member Role Status Dates Shira Arias HAND PAINT MIXER, HAND PAINT MIXER-C Primary Care Provider Active Start: December 31, 2024 End: December 31, 2024 Shira Arias HAND PAINT MIXER, HAND PAINT MIXER-C Referring Provider Active Start: December 31, 2024 End: December 31, 2024 AGUILAR Alfonso Attending Provider Active Start: December 31, 2024 End: December 31, 2024 Team Status: Inactive Member Role Status Dates Shira Arias NP, HAND PAINT MIXER-C Primary Care Provider Active Start: December 31, 2024 End: December 31, 2024 AGUILAR Alfonso Attending Provider Active Start: December 31, 2024 End: December 31, 2024 Cayla Quiñonez , HAND PAINT MIXER-C Referring Provider Active Start: December 31, 2024 End: December 31, 2024 Team Status: Active Member Role Status Dates Shira Juana HAND PAINT MIXER, HAND PAINT MIXER-C Primary Care Provider Active Start: January 05, 2025 Michela Sal HAND PAINT MIXER, HAND PAINT MIXER-C Attending Provider Active Start: January 05, 2025 Michela Aye Sal HAND PAINT MIXER, HAND PAINT MIXER-C Referring Provider Active Start: January 05, 2025 Team Status: Inactive Member Role Status Dates Shira Juana HAND PAINT MIXER, HAND PAINT MIXER-C Primary Care Provider Active Start: February 24, 2025 End: February 24, 2025 Micheladomonique Sal HAND PAINT MIXER, HAND PAINT MIXER-C Attending Provider Active Start: February 24, 2025 End: February 24, 2025 Micheladomonique Sal HAND PAINT MIXER, HAND PAINT MIXER-C Referring Provider Active Start: February 24, 2025 End: February 24, 2025 Team Status: Inactive Member Role Status Dates Shira Juana HAND PAINT MIXER, HAND PAINT MIXER-C Primary Care Provider Active Start: 2024 End: September 07, 2024 Dr. Rod Ross , DO Emergency Provider Active Start : 2024 End: September 07, 2024 Dr. Seth Paiz , DO Admit Provider Active Start: 2024 End: September 07, 2024 Dr. Seth Paiz , Other Provider Active Start: 2024 End: September 07, 2024 Dr. Edwina Kimball , Attending Provider Active S tart: 2024 End: September 07, 2024 Dr. Cruz Arciniega , DO Other Provider Active Start: 2024 End: September 07, 2024 Team Status: Active Member Role Status Dates Shira Juana [place], HAND PAINT MIXER-C Primary Care Provider Active Start: 2024 Dr. Rod Ross DO Emergency Provider Active Start : 2024 Dr. Seth Paiz DO Admit Provider Active Start: 2024 Dr. Seth Paiz DO Referring Provider Active Start: 2024 Dr. Seth Paiz , DO Other Provider Active Start: 2024 Dr. Cruz Arciniega , DO Other Provider Active Start: 2024 Dr. Denys Babin , DO Attending Provider Active Start: 2024 Team Status: Active Member Role Status Dates Shira Arias NP, HAND PAINT MIXER-C Primary Care Provider Active Start: September 05, 2024 End: September 05, 2024 Dr. Jose Lubin MD Attending Provider Active S tart: September 05, 2024 End: September 05, 2024 Dr. Jose Lubin MD Referring Provider Active S tart: September 05, 2024 End: September 05, 2024 Team Status: Active Member Role Status Dates Shira Arias HAND PAINT MIXER, HAND PAINT MIXER-C Primary Care Provider Active Start: September 05, [...] Member Role Status Dates Shira Arias NP, HAND PAINT MIXER-C Primary Care Provider Active Start: September 05, 2024 Dr. Denys Babin , DO Attending Provider Active Start: September 05, 2024 Dr. Seth Paiz , DO Referring Provider Active Start: September 05, 2024 Team Status: Active Member Role Status Dates Shira Arias NP, HAND PAINT MIXER-C Primary Care Provider Active Start: September 06, 2024 Dr. Rod Ross , Emergency Provider Active Start : September 06, [...] Member Role Status Dates Shira Arias NP, HAND PAINT MIXER-C Primary Care Provider Active Start: September 07, [...] Active Member Role Status Dates Shira Arias HAND PAINT MIXER, HAND PAINT MIXER-C Primary Care Provider Active Start: September 07, 2024 Dr. Rod Ross , Emergency Provider Active Start : September 07, [...] Inactive Member Role Status Dates Shira Arias HAND PAINT MIXER, HAND PAINT MIXER-C Primary Care Provider Active Start: September 11, 2024 End: September 11, 2024 Shira Arias HAND PAINT MIXER, HAND PAINT MIXER-C Referring Provider Active Start: September 11, 2024 End: September 11, 2024 Dr. Francesco Lui MD Attending Provider Active Start: September 11, 2024 End: September 11, 2024 Team Status: Inactive Member Role Status Dates Shira Arias HAND PAINT MIXER, HAND PAINT MIXER-C Primary Care Provider Active Start: September 11, 2024 End: September 11, 2024 Dr. Francesco Lui MD Attending Provider Active Start: September 11, 2024 End: September 11, 2024 Dr. Francesco Lui MD Referring Provider Active Start: September 11, 2024 End: September 11, 2024 Team Status: Active Member Role Status Dates Shira Arias NP, HAND PAINT MIXER-C Primary Care Provider Active Start: December 14, 2024 Dr. Petar Barrera , Emergency Provider Active Start: December 14, 2024 Dr. Cruz Arciniega , Admit Provider Active Start: December 14, 2024 Dr. Cruz Arciniega , Attending Provider Active Start: December 14, 2024 Team Status: Active Member Role Status Dates Shira Arias HAND PAINT MIXER, HAND PAINT MIXER-C Primary Care Provider Active Start: December 15, [...] Member Role Status Dates Shira Arias NP, HAND PAINT MIXER-C Primary Care Provider Active Start: December 16, [...] Member Role Status Dates Shira Arias NP, HAND PAINT MIXER-C Primary Care Provider Active Start: March 08, 2025 End: March 08, 2025 Dr. Camron Redd MD Attending Provider Active Start: March 08, 2025 End: March 08, 2025 Dr. Camron Shoemaker MD Referring Provider Active Start: March 08, 2025 End: March 08, 2025 Team Status: Active Member Role Status Dates Shira Arias NP, HAND PAINT MIXER-C Primary Care Provider Active Start: March 17, 2025 Dr. Camron Shoemaker MD Attending Provider Active Start: March 17, 2025 Dr. Camron Shoemaker MD Referring Provider Active Start: March 17, 2025 Dr. Camron Shoemaker MD Other Provider Active Sta rt: March 17, 2025 Dr. Gray López MD Other Provider Active Star t: March 17, 2025 Team Status: Inactive Member Role Status Dates Shira Arias HAND PAINT MIXER, HAND PAINT MIXER-C Primary Care Provider Active Start: March 17, [...] Member Role Status Dates Shira Arias NP, HAND PAINT MIXER-C Primary Care Provider Active Start: March 18, [...] Inactive Member Role Status Dates Shira Arias HAND PAINT MIXER, HAND PAINT MIXER-C Primary Care Provider Active Start: March 25, 2025 End: March 25, 2025 Shira Arias HAND PAINT MIXER, HAND PAINT MIXER-C Referring Provider Active Start: March 25, 2025 End: March 25, 2025 Bing YOUNG, PA-C Attending Provider Active Start: March 25, 2025 End: March 25, 2025 Team Status: Active Member Role/Relationship Status Dates Shira Arias HAND PAINT MIXER, HAND PAINT MIXER-C Primary Care Provider Active Team Status: Active Member Role/Relationship Status Dates Shira Arias HAND PAINT MIXER, HAND PAINT MIXER-C Primary Care Provider Active Start: December 11, 2024 Dr. Pedro Lopez MD Attending Provider Active Start: December 11, 2024 Dr. Pedro Lopez MD Referring Provider Active Start: December 11, 2024 Team Status: Inactive Member Role/Relationship Status Dates Shira Arias HAND PAINT MIXER, HAND PAINT MIXER-C Primary Care Provider Active Start: December 11, 2024 End: December 11, 2024 Shira Arias HAND PAINT MIXER, HAND PAINT MIXER-C Referring Provider Active Start: December 11, 2024 End: December 11, 2024 Dr. Denys Babin DO Attending Provider Active Start: December 11, 2024 End: December 11, 2024 Team Status: Active Member Role/Relationship Status Dates Shira Arias HAND PAINT MIXER, HAND PAINT MIXER-C Primary Care Provider Active Start: December 11, 2024 Shira Arias HAND PAINT MIXER, HAND PAINT MIXER-C Referring Provider Active Start: December 11, 2024 Dr. Denys Babin DO Attending Provider Active Start: December 11, 2024 Dr. Denys Babin DO Other Provider Active St art: December 11, 2024 Team Status: Active Member Role/Relationship Status Dates Shira Arias HAND PAINT MIXER, HAND PAINT MIXER-C Primary Care Provider Active Start: December 11, 2024 End: December 11, 2024 Dr. Jose Lubin MD Attending Provider Active S tart: December 11, 2024 End: December 11, 2024 Dr. Denys Babin DO Referring Provider Active Start: December 11, 2024 End: December 11, 2024 Team Status: Inactive Member Role/Relationship Status Dates Shira Arias HAND PAINT MIXER, HAND PAINT MIXER-C Primary Care Provider Active Start: December 14, [...] Active Member Role/Relationship Status Dates Shira Arias HAND PAINT MIXER, HAND PAINT MIXER-C Primary Care Provider Active Start: December 15, [...] Active Member Role/Relationship Status Dates Shira Arias HAND PAINT MIXER, HAND PAINT MIXER-C Primary Care Provider Active Start: December 15, [...] Active Member Role/Relationship Status Dates Shira Arias HAND PAINT MIXER, HAND PAINT MIXER-C Primary Care Provider Active Start: December 16, [...] Active Member Role/Relationship Status Dates Shira Arias HAND PAINT MIXER, HAND PAINT MIXER-C Primary Care Provider Active Start: December 16, [...] Inactive Member Role/Relationship Status Dates Shira Arias HAND PAINT MIXER, HAND PAINT MIXER-C Primary Care Provider Active Start: December 31, 2024 End: December 31, 2024 Shira Arias HAND PAINT MIXER, HAND PAINT MIXER-C Referring Provider Active Start: December 31, 2024 End: December 31, 2024 Dr. Camron Shoemaker MD Attending Provider Active Start: December 31, 2024 End: December 31, 2024 Team Status: Inactive Member Role/Relationship Status Dates Shira Arias HAND PAINT MIXER, HAND PAINT MIXER-C Primary Care Provider Active Start: December 31, 2024 End: December 31, 2024 Shira Arias HAND PAINT MIXER, HAND PAINT MIXER-C Referring Provider Active Start: December 31, 2024 End: December 31, 2024 Cayla Quiñonez , HAND PAINT MIXER-C Attending Provider Active Start: December 31, 2024 End: December 31, 2024 Team Status: Inactive Member Role/Relationship Status Dates Shira Arias HAND PAINT MIXER, HAND PAINT MIXER-C Primary Care Provider Active Start: December 31, 2024 End: December 31, 2024 Cayla Quiñonez , HAND PAINT MIXER-C Attending Provider Active Start: December 31, 2024 End: December 31, 2024 Cayla Quiñonez , HAND PAINT MIXER-C Referring Provider Active Start: December 31, 2024 End: December 31, 2024 Team Status: Active Member Role/Relationship Status Dates Shira Arias HAND PAINT MIXER, HAND PAINT MIXER-C Primary Care Provider Active Start: January 05, 2025 Michela Sal HAND PAINT MIXER, HAND PAINT MIXER-C Attending Provider Active Start: January 05, 2025 Michela Sal HAND PAINT MIXER, HAND PAINT MIXER-C Referring Provider Active Start: January 05, 2025 Team Status: Inactive Member Role/Relationship Status Dates Shira Arias HAND PAINT MIXER, HAND PAINT MIXER-C Primary Care Provider Active Start: February 24, 2025 End: February 24, 2025 Michela Sal HAND PAINT MIXER, HAND PAINT MIXER-C Attending Provider Active Start: February 24, 2025 End: February 24, 2025 Michela Sal HAND PAINT MIXER, HAND PAINT MIXER-C Referring Provider Active Start: February 24, 2025 End: February 24, 2025 Team Status: Active Member Role/Relationship Status Dates Shira Arias HAND PAINT MIXER, HAND PAINT MIXER-C Primary Care Provider Active Start: March 08, 2025 End: March 08, 2025 Dr. Camron Redd MD Attending Provider Active Start: March 08, 2025 End: March 08, 2025 Dr. Camron Shoemaker MD Referring Provider Active Start: March 08, 2025 End: March 08, 2025 Team Status: Active Member Role/Relationship Status Dates Shira Arias NP, HAND PAINT MIXER-C Primary Care Provider Active Start: March 17, [...] Member Role/Relationship Status Dates Shira Arias NP, HAND PAINT MIXER-C Primary Care Provider Active Start: March 17, [...] Member Role/Relationship Status Dates Shira Arias NP, HAND PAINT MIXER-C Primary Care Provider Active Start: March 18, [...] Inactive Member Role/Relationship Status Dates Shira Arias HAND PAINT MIXER, HAND PAINT MIXER-C Primary Care Provider Active Start: March 25, 2025 End: March 25, 2025 Shira Arias NP, HAND PAINT MIXER-C Referring Provider Active Start: March 25, 2025 End: March 25, 2025 Bing YOUNG PA-C Attending Provider Active Start: March 25, 2025 End: March 25, 2025 Team Status: Active Member Role/Relationship Status Dates Shira Arias HAND PAINT MIXER, HAND PAINT MIXER-C Primary Care Provider Active Start: March 30, 2025 Bing Temple PA, PA-C Attending Provider Active Start: March 30, 2025 Bing Temple PA, PA-C Referring Provider Active Start: March 30, 2025 Team Status: Inactive Member Role/Relationship Status Dates Shira Arias HAND PAINT MIXER, HAND PAINT MIXER-C Primary Care Provider Active Start: March 31, 2025 End: March 31, 2025 Shira Arias HAND PAINT MIXER, HAND PAINT MIXER-C Referring Provider Active Start: March 31, 2025 End: March 31, 2025 Bing Temple PA, PA-C Attending Provider Active Start: March 31, 2025 End: March 31, 2025 Team Status: Inactive Member Role/Relationship Status Dates Shira Arias HAND PAINT MIXER, HAND PAINT MIXER-C Primary Care Provider Active Start: March 30, 2025 End: March 30, 2025 Bing Temple PA, PA-C Attending Provider Active Start: March 30, 2025 End: March 30, 2025 Bing Temple PA, PA-C Referring Provider Active Start: March 30, 2025 End: March 30, 2025 Team Status: Inactive Member Role/Relationship Status Dates Shira Arias HAND PAINT MIXER, HAND PAINT MIXER-C Primary Care Provider Active Start: April 07, 2025 End: April 07, 2025 Shira Arias HAND PAINT MIXER, HAND PAINT MIXER-C Referring Provider Active Start: April 07, 2025 End: April 07, 2025 Bing Temple PA, PA-C Attending Provider Active Start: April 07, 2025 End: April 07, 2025 Team Status: Active Member Role/Relationship Status Dates Shira Arias HAND PAINT MIXER, HAND PAINT MIXER-C Primary Care Provider Active Start: January 05, 2025 Michela Sal HAND PAINT MIXER, HAND PAINT MIXER-C Attending Provider Active Start: January 05, 2025 Michela Sal HAND PAINT MIXER, HAND PAINT MIXER-C Referring Provider Active Start: January 05, 2025 Team Status: Inactive Member Role/Relationship Status Dates Shira Arias HAND PAINT MIXER, HAND PAINT MIXER-C Primary Care Provider Active Start: February 24, 2025 End: February 24, 2025 Michela Sal HAND PAINT MIXER, HAND PAINT MIXER-C Attending Provider Active Start: February 24, 2025 End: February 24, 2025 Michela Sal HAND PAINT MIXER, HAND PAINT MIXER-C Referring Provider Active Start: February 24, 2025 End: February 24, 2025 Team Status: Active Member Role/Relationship Status Dates Shira Arias NP, HAND PAINT MIXER-C Primary Care Provider Active Start: March 08, 2025 End: March 08, 2025 Dr. Camron Redd MD Attending Provider Active Start: March 08, 2025 End: March 08, 2025 Dr. Camron Shoemaker MD Referring Provider Active Start: March 08, 2025 End: March 08, 2025 Team Status: Active Member Role/Relationship Status Dates Shira Arias HAND PAINT MIXER, HAND PAINT MIXER-C Primary Care Provider Active Start: March 17, [...] Member Role/Relationship Status Dates Shira Arias NP, HAND PAINT MIXER-C Primary Care Provider Active Start: March 17, [...] Member Role/Relationship Status Dates Shira Arias NP, HAND PAINT MIXER-C Primary Care Provider Active Start: March 18, [...] Inactive Member Role/Relationship Status Dates Shira Arias HAND PAINT MIXER, HAND PAINT MIXER-C Primary Care Provider Active Start: March 25, 2025 End: March 25, 2025 Shira Arias HAND PAINT MIXER, HAND PAINT MIXER-C Referring Provider Active Start: March 25, 2025 End: March 25, 2025 Bing Temple PA, PA-C Attending Provider Active Start: March 25, 2025 End: March 25, 2025 Team Status: Inactive Member Role/Relationship Status Dates Shira Arias HAND PAINT MIXER, HAND PAINT MIXER-C Primary Care Provider Active Start: March 30, 2025 End: March 30, 2025 Bing Temple PA, PA-C Attending Provider Active Start: March 30, 2025 End: March 30, 2025 Bingángel Temple PA, PA-C Referring Provider Active Start: March 30, 2025 End: March 30, 2025 Team Status: Inactive Member Role/Relationship Status Dates Shira Arias HAND PAINT MIXER, HAND PAINT MIXER-C Primary Care Provider Active Start: March 31, 2025 End: March 31, 2025 Shira Arias HAND PAINT MIXER, HAND PAINT MIXER-C Referring Provider Active Start: March 31, 2025 End: March 31, 2025 Bing Temple PA, PA-C Attending Provider Active Start: March 31, 2025 End: March 31, 2025 Team Status: Inactive Member Role/Relationship Status Dates Shira Arias HAND PAINT MIXER, HAND PAINT MIXER-C Primary Care Provider Active Start: April 07, 2025 End: April 07, 2025 Shira Arias HAND PAINT MIXER, HAND PAINT MIXER-C Referring Provider Active Start: April 07, 2025 End: April 07, 2025 Bing Temple PA, PA-C Attending Provider Active Start: April 07, 2025 End: April 07, 2025 Team Status: Inactive Member Role/Relationship Status Dates Shira Arias HAND PAINT MIXER, HAND PAINT MIXER-C Primary Care Provider Active Start: May 03, 2025 End: May 03, 2025 Shira Arias HAND PAINT MIXER, HAND PAINT MIXER-C Referring Provider Active Start: May 03, 2025 End: May 03, 2025 Dr. Denys Babin DO Attending Provider Active Start: May 03, 2025 End: May 03, 2025 Team Status: Active Member Role/Relationship Status Dates Shira Arias HAND PAINT MIXER, HAND PAINT MIXER-C Primary Care Provider Active Start: May 03, 2025 Shira Arias HAND PAINT MIXER, HAND PAINT MIXER-C Referring Provider Active Start: May 03, 2025 Dr. Denys Babin DO Attending Provider Active Start: May 03, 2025 Dr. Denys Babin DO Other Provider Active St art: May 03, 2025 Team Status: Active Member Role/Relationship Status Dates Shira Arias HAND PAINT MIXER, HAND PAINT MIXER-C Primary Care Provider Active Start: May 05, 2025 Dr. Benedict Phillip DO Emergency Provider Active Start: May 05, 2025 Dr. Eileen Brunson MD Attending Provider Active Start: May 05, 2025 Team Status: Active Member Role/Relationship Status Dates Shira Arias HAND PAINT MIXER, HAND PAINT MIXER-C Primary Care Provider Active Start: May 05, 2025 Dr. Benedict Phillip DO Emergency Provider Active Start: May 05, 2025 Dr. Eileen Brunson MD Admit Provider Active St art: May 05, 2025 Dr. Eileen Brunson MD Attending Provider Active Start: May 05, 2025 Team Status: Inactive Member Role/Relationship Status Dates Shira Arias HAND PAINT MIXER, HAND PAINT MIXER-C Primary Care Provider Active Start: February 24, 2025 End: February 24, 2025 Michela Sal HAND PAINT MIXER, HAND PAINT MIXER-C Attending Provider Active Start: February 24, 2025 End: February 24, 2025 Michela Sal HAND PAINT MIXER, HAND PAINT MIXER-C Referring Provider Active Start: February 24, 2025 End: February 24, 2025 Team Status: Active Member Role/Relationship Status Dates Shira Arias HAND PAINT MIXER, HAND PAINT MIXER-C Primary Care Provider Active Start: March 08, 2025 End: March 08, 2025 Dr. Camron Redd MD Attending Provider Active Start: March 08, 2025 End: March 08, 2025 Dr. Camron Shoemaker MD Referring Provider Active Start: March 08, 2025 End: March 08, 2025 Team Status: Active Member Role/Relationship Status Dates Shira Arias HAND PAINT MIXER, HAND PAINT MIXER-C Primary Care Provider Active Start: March 17, 2025 Dr. Camron Shoemaker MD Attending Provider Active Start: March 17, 2025 Dr. Camron Shoemaker MD Referring Provider Active Start: March 17, 2025 Dr. Camron Shoemaker MD Other Provider Active Sta rt: March 17, 2025 Dr. Gray López MD Other Provider Active Star t: March 17, 2025 Team Status: Inactive Member Role/Relationship Status Dates Shira Arias HAND PAINT MIXER, HAND PAINT MIXER-C Primary Care Provider Active Start: March 17, [...] Member Role/Relationship Status Dates Shira Arias NP, HAND PAINT MIXER-C Primary Care Provider Active Start: March 18, [...] Inactive Member Role/Relationship Status Dates Shira Arias HAND PAINT MIXER, HAND PAINT MIXER-C Primary Care Provider Active Start: March 25, 2025 End: March 25, 2025 Shira Arias NP, HAND PAINT MIXER-C Referring Provider Active Start: March 25, 2025 End: March 25, 2025 Bing Temple PA, PA-C Attending Provider Active Start: March 25, 2025 End: March 25, 2025 Team Status: Inactive Member Role/Relationship Status Dates Shira Arias HAND PAINT MIXER, HAND PAINT MIXER-C Primary Care Provider Active Start: March 30, 2025 End: March 30, 2025 Bing Temple PA, PA-C Attending Provider Active Start: March 30, 2025 End: March 30, 2025 Bing Temple PA, PA-C Referring Provider Active Start: March 30, 2025 End: March 30, 2025 Team Status: Inactive Member Role/Relationship Status Dates Shira Arias NP, HAND PAINT MIXER-C Primary Care Provider Active Start: March 31, 2025 End: March 31, 2025 Shira Arias HAND PAINT MIXER, HAND PAINT MIXER-C Referring Provider Active Start: March 31, 2025 End: March 31, 2025 HECTOR Munoz-Marli Attending Provider Active Start: March 31, 2025 End: March 31, 2025 Team Status: Inactive Member Role/Relationship Status Dates Shira Arias HAND PAINT MIXER, HAND PAINT MIXER-C Primary Care Provider Active Start: April 07, 2025 End: April 07, 2025 Shira Arias HAND PAINT MIXER, HAND PAINT MIXER-C Referring Provider Active Start: April 07, 2025 End: April 07, 2025 Bnig YOUNG PA-C Attending Provider Active Start: April 07, 2025 End: April 07, 2025 Team Status: Inactive Member Role/Relationship Status Dates Shira Arias HAND PAINT MIXER, HAND PAINT MIXER-C Primary Care Provider Active Start: May 03, 2025 End: May 03, 2025 Shira Arias HAND PAINT MIXER, HAND PAINT MIXER-C Referring Provider Active Start: May 03, 2025 End: May 03, 2025 Dr. Denys Babin DO Attending Provider Active Start: May 03, 2025 End: May 03, 2025 Team Status: Active Member Role/Relationship Status Dates Shira Arias HAND PAINT MIXER, HAND PAINT MIXER-C Primary Care Provider Active Start: May 03, 2025 Shira Arias HAND PAINT MIXER, HAND PAINT MIXER-C Referring Provider Active Start: May 03, 2025 Dr. Denys Babin DO Attending Provider Active Start: May 03, 2025 Dr. Denys Babin DO Other Provider Active St art: May 03, 2025 Team Status: Active Member Role/Relationship Status Dates Shira Arias HAND PAINT MIXER, HAND PAINT MIXER-C Primary Care Provider Active Start: May 05, 2025 Dr. Benedict Phillip DO Emergency Provider Active Start: May 05, 2025 Dr. Eileen Brunson MD Attending Provider Active Start: May 05, 2025 Team Status: Inactive Member Role/Relationship Status Dates Shira Arias HAND PAINT MIXER, HAND PAINT MIXER-C Primary Care Provider Active Start: May 05, 2025 End: May 07, 2025 Dr. Benedict Phillip DO Emergency Provider Active Start: May 05, 2025 End: May 07, 2025 Dr. Eileen Brunson MD Admit Provider Active St art: May 05, 2025 End: May 07, 2025 Dr. Eileen Brunson MD Other Provider Active St art: May 05, 2025 End: May 07, 2025 Dr. Khang Lopez MD Other Provider Active Start: May 05, 2025 End: May 07, 2025 Dr. Veronica Flores MD Attending Provider Active Start: May 05, 2025 End: May 07, 2025 Dr. Jared Arevalo MD Other Provider Active Start: May 05, 2025 End: May 07, 2025 Team Status: Active Member Role/Relationship Status Dates Shira Arias HAND PAINT MIXER, HAND PAINT MIXER-C Primary Care Provider Active Start: May 05, 2025 Dr. Benedict Phillip DO Emergency Provider Active Start: May 05, 2025 Dr. Eileen Brunson MD Admit Provider Active St art: May 05, 2025 Dr. Eileen Brunson MD Other Provider Active St art: May 05, 2025 Dr. Khang Lopez MD Other Provider Active Start: May 05, 2025 Dr. Veronica Flores MD Other Provider Active St art: May 05, 2025 ROLY AlfonsoC Attending Provider Active Start: May 05, 2025 Team Status: Active Member Role/Relationship Status Dates Shira Arias HAND PAINT MIXER, HAND PAINT MIXER-C Primary Care Provider Active Start: May 05, 2025 Dr. Benedict Phillip DO Emergency Provider Active Start: May 05, 2025 Dr. Eileen Brunson MD Admit Provider Active St art: May 05, 2025 Dr. Eileen Brunson MD Other Provider Active St art: May 05, 2025 Dr. Khang Lopez MD Other Provider Active Start: May 05, 2025 Dr. Veronica Flores MD Other Provider Active St art: May 05, 2025 Bing YOUNG PA-C Attending Provider Active Start: May 05, 2025 Team Status: Active Member Role/Relationship Status Dates Shira Arias NP, HAND PAINT MIXER-C Primary Care Provider Active Start: May 05, 2025 Dr. Denys Babin DO Attending Provider Active Start: May 05, 2025 Team Status: Active Member Role/Relationship Status Dates Shira Arias HAND PAINT MIXER, HAND PAINT MIXER-C Primary Care Provider Active Start: May 06, 2025 Dr. Benedict Phillip DO Emergency Provider Active Start: May 06, 2025 Dr. Eileen Brunson MD Admit Provider Active St art: May 06, 2025 Dr. Eileen Brunson MD Other Provider Active St art: May 06, 2025 Dr. Khang Lopez MD Other Provider Active Start: May 06, 2025 Dr. Veronica Flores MD Attending Provider Active Start: May 06, 2025 Dr. Veronica Flores MD Other Provider Active St art: May 06, 2025 Dr. Jared Arevalo MD Other Provider Active Start: May 06, 2025 Team Status: Active Member Role/Relationship Status Dates Shira Arias HAND PAINT MIXER, HAND PAINT MIXER-C Primary Care Provider Active Start: May 06, 2025 Dr. Benedict Phillip DO Emergency Provider Active Start: May 06, 2025 Dr. Eileen Brunson MD Admit Provider Active St art: May 06, 2025 Dr. Eileen Brunson MD Other Provider Active St art: May 06, 2025 Dr. Khang Lopez MD Other Provider Active Start: May 06, 2025 Dr. Veronica Flores MD Other Provider Active St art: May 06, 2025 Dr. Jared Arevalo MD Other Provider Active Start: May 06, 2025 Dr. Denys Babin DO Attending Provider Active Start: May 06, 2025 Team Status: Active Member Role/Relationship Status Dates Shira Arias HAND PAINT MIXER, HAND PAINT MIXER-C Primary Care Provider Active Start: May 03, 2025 Shira Arias HAND PAINT MIXER, HAND PAINT MIXER-C Referring Provider Active Start: May 03, 2025 Dr. Jose Lubin MD Attending Provider Active S tart: May 03, 2025 Team Status: Inactive Member Role/Relationship Status Dates Shira Arias HAND PAINT MIXER, HAND PAINT MIXER-C Primary Care Provider Active Start: May 05, 2025 End: May 07, 2025 Dr. Benedict Phillip DO Emergency Provider Active Start: May 05, 2025 End: May 07, 2025 Dr. Eileen Brunson MD Admit Provider Active St art: May 05, 2025 End: May 07, 2025 Dr. Eileen Brunson MD Other Provider Active St art: May 05, 2025 End: May 07, 2025 Dr. Khang Lopez MD Other Provider Active Start: May 05, 2025 End: May 07, 2025 Dr. Veronica Flores MD Attending Provider Active Start: May 05, 2025 End: May 07, 2025 Dr. Jared Arevalo MD Other Provider Active Start: May 05, 2025 End: May 07, 2025 Team Status: Active Member Role/Relationship Status Dates Shira Lorson HAND PAINT MIXER, HAND PAINT MIXER-C Primary Care Provider Active Start: May 05, 2025 Dr. Benedict Phillip DO Emergency Provider Active Start: May 05, 2025 Dr. Eileen Brunson MD Admit Provider Active St art: May 05, 2025 Dr. Eileen Brunson MD Other Provider Active St art: May 05, 2025 Dr. Khang Lopez MD Other Provider Active Start: May 05, 2025 Dr. Veronica Flores MD Other Provider Active St art: May 05, 2025 Cayla Quiñonez NP-C Attending Provider Active Start: May 05, 2025 Team Status: Active Member Role/Relationship Status Dates Shira Arias NP, HAND PAINT MIXER-C Primary Care Provider Active Start: May 05, 2025 Dr. Benedict Phillip DO Emergency Provider Active Start: May 05, 2025 Dr. Eileen Brunson MD Admit Provider Active St art: May 05, 2025 Dr. Eileen Brunson MD Other Provider Active St art: May 05, 2025 Dr. Khang Lopez MD Other Provider Active Start: May 05, 2025 Dr. Veronica Flores MD Other Provider Active St art: May 05, 2025 Bing YOUNG PA-C Attending Provider Active Start: May 05, 2025 Team Status: Active Member Role/Relationship Status Dates Shira Arias NP, HAND PAINT MIXER-C Primary Care Provider Active Start: May 05, 2025 Dr. Denys Babin DO Attending Provider Active Start: May 05, 2025 Team Status: Active Member Role/Relationship Status Dates Shira Arias NP, HAND PAINT MIXER-C Primary Care Provider Active Start: May 06, 2025 Dr. Benedict Phillip DO Emergency Provider Active Start: May 06, 2025 Dr. Eileen Brunson MD Admit Provider Active St art: May 06, 2025 Dr. Eileen Brunson MD Other Provider Active St art: May 06, 2025 Dr. Khang Lopez MD Other Provider Active Start: May 06, 2025 Dr. Veronica Flores MD Attending Provider Active Start: May 06, 2025 Dr. Veronica Floers MD Other Provider Active St art: May 06, 2025 Dr. Jared Arevalo MD Other Provider Active Start: May 06, 2025 Team Status: Active Member Role/Relationship Status Dates Shira Arias NP, HAND PAINT MIXER-C Primary Care Provider Active Start: May 06, 2025 Dr. Benedict Phillip DO Emergency Provider Active Start: May 06, 2025 Dr. Eileen Brunson MD Admit Provider Active St art: May 06, 2025 Dr. Eileen Brunson MD Other Provider Active St art: May 06, 2025 Dr. Khang Lopez MD Other Provider Active Start: May 06, 2025 Dr. Veronica Flores MD Other Provider Active St art: May 06, 2025 Dr. Jared Arevalo MD Other Provider Active Start: May 06, 2025 Dr. Denys Babin DO Attending Provider Active Start: May 06, 2025 Team Status: Active Member Role/Relationship Status Dates Shira Arias NP, HAND PAINT MIXER-C Primary Care Provider Active Start: May 07, 2025 Dr. Benedict Phillip DO Emergency Provider Active Start: May 07, 2025 Dr. Eileen Brunson MD Admit Provider Active St art: May 07, 2025 Dr. Eileen Brunson MD Other Provider Active St art: May 07, 2025 Dr. Khang Lopez MD Other Provider Active Start: May 07, 2025 Dr. Veronica Flores MD Attending Provider Active Start: May 07, 2025 Dr. Veronica Flores MD Other Provider Active St art: May 07, 2025 Dr. Jared Arevalo MD Other Provider Active Start: May 07, 2025 Team Status: Active Member Role/Relationship Status Dates Shira Arias NP, HAND PAINT MIXER-C Primary Care Provider Active Start: May 07, 2025 Dr. Benedict Phillip DO Emergency Provider Active Start: May 07, 2025 Dr. Eileen Brunson MD Admit Provider Active St art: May 07, 2025 Dr. Eileen Brunson MD Other Provider Active St art: May 07, 2025 Dr. Kahng Lopez MD Other Provider Active Start: May 07, 2025 Dr. Veronica Flores MD Other Provider Active St art: May 07, 2025 Dr. Jared Arevalo MD Other Provider Active Start: May 07, 2025 Dr. Denys Babin DO Attending Provider Active Start: May 07, 2025 Team Status: Inactive Member Role/Relationship Status Dates Shira Arias NP, HAND PAINT MIXER-C Primary Care Provider Active Start: May 17, 2025 End: May 17, 2025 AGUILAR Giles NP Referring Provider Active Start: May 17, 2025 End: May 17, 2025 AGUILAR Alfonso Attending Provider Active Start: May 17, 2025 End: May 17, 2025 Team Status: Inactive Member Role/Relationship Status Dates AGUILAR Giles NP Primary Care Provider Active Start: May 17, 2025 End: May 17, 2025 AGUILAR Alfonso Attending Provider Active Start: May 17, 2025 End: May 17, 2025 AGUILAR Alfonso Referring Provider Active Start: May 17, 2025 End: May 17, 2025 (unrecognized sect ion and content) No Status Records FoundNo Status Records FoundNo Status Records FoundNo Status Records Found INFORMATION SOURCE (unrecogn ized section and content) DATE CREATED AUTHOR 05/29/2024 [facility] ([place]) DATE CREATED AUTHOR AUTHOR'S ORGANIZ ATION 08/16/2024 [facility] DATE CREATED AUTHOR AUTHOR'S ORGANIZ ATION 02/05/2025 [facility] DATE CREATED AUTHOR AUTHOR'S ORGANIZ ATION 06/15/2025 [facility] FOR RECORDS PERTAINING TO PATIENTS WHO [...] BE BASED ON THE PRIMARY CLINICAL RECORDS. [employer] [facility]. provides no warranty or guarantee of the accuracy or completeness of information in this document.
== END 2025-06-15 16:27 | disposition home or self-care (01) ==
LOC: EN 14:06 → AC 14:07
PROVIDERS: PCP Nurse Practitioner Family; Referring Provider Nurse Practitioner Family; Visit Provider Internal Medicine Gastroenterology
PROC: (CPT 43260; principal; 2025-06-15 14:25)
DX: K80.51 Calculus of bile duct without cholangitis or cholecystitis with obstruction (principal); Z90.49 Acquired absence of other specified parts of digestive tract; R74.01 Elevation of levels of liver transaminase levels
CPT/HCPCS: 43262; 43275; 43264; 74330; 76000; 88108; 88305; 88313; 93005